=== PATIENT | male | born 1945 | race Caucasian/White ===

== ENCOUNTER 2017-08-19 13:13 | Outpatient (CLI) | payer MEDICARE, OTHER ==
[~2017-08-19] VITALS: Ht 162.6 cm; Wt 68.9 kg
[~2017-08-19 13:13] MED LIST: ALBU8.5H2 IH; AMLO10TA82 PO; ASP81TEC PO; ATR20T PO; AZIT-21 PO; CEPH500C PO; CHOL400T26 PO; CLCX200C PO; CYAN100053 IJ; CYCL10TA45 PO; DOXA4TAB2 PO; GABA-486 PO; GBPN100C PO; GLIM2TAB PO; GLIM4TAB PO; HCT25T PO; HUMALOG; HYDR-1231 PO; HYDR-3454 PO; HYDR-3583 PO; HYDR-3714 PO; HYDR-3720 PO; HYDR-757 PO; HYDR25TA4 PO; INSU100C4 SQ; INSU100I23 SQ; LEVE1U SQ; LEVO250T PO; LIRA0.6P SQ; LISI20TA PO; LISI40TA PO; MAGN400T6 PO; METF-380 PO; METO-333 PO; METO100T2 PO; METO100T5 PO; MTF500T PO; MULT-608 PO; NF-ESOM40C PO; OMEG1CAP51 PO; OMEP20TA2 PO; ONDA8TAB13 PO; ONDA8TAB9 PO; OXYC-12 PO; PNT40TEC PO; POTA99TA4 PO; SITA100T PO; TEST200V3 IM; TESTOSTERONE TOP; TRAM50TA2 PO; [UNRECOGNIZED DRUG - CODE] PO
[2017-08-19] MEDS ORDERED: TEST100V3 IM (14:06)
[2017-08-19] MEDS ORDERED: SITA100T12 PO (14:06)
[2017-08-19] MEDS ORDERED: GABA-486 PO ×2 (14:06)
[2017-08-19] MEDS ORDERED: ATOR20TA66 PO (14:06)
[2017-08-19] MEDS ORDERED: GLIM4TAB PO (14:06)
[2017-08-19] MEDS ORDERED: TRAM50TA2 PO (14:42)
[2017-08-19] MEDS ORDERED: POTA10TA10 PO (14:42)
[2017-08-20] MEDS ORDERED: CYAN100092 IM (08:44)
[2017-08-20] MEDS ORDERED: INSU100V31 SQ (08:44)
[2017-08-20] MEDS ORDERED: OMEG1CAP13 PO (08:44)
[2017-08-20] MEDS ORDERED: ASPI-999 PO (08:44)
[2017-08-20] MEDS ORDERED: HYDR25TA4 PO (08:44)
[2017-08-20] MEDS ORDERED: CNC1KV IJ (08:48)
[2017-08-20] MEDS ORDERED: LACT1CAP62 PO (08:48)
[2017-08-20] MEDS ORDERED: MAGN400T6 PO (08:48)
[2017-08-20] MEDS ORDERED: DOCU-238 PO (08:48)
[2017-08-20] MEDS ORDERED: HYDR-3816 PO (12:56)
== END 2017-08-19 14:44 ==
LOC: PREOP 13:13
PROVIDERS: ATTEND Surgery
DX: Z01.818 Encounter for other preprocedural examination (principal); C44.41 Basal cell carcinoma of skin of scalp and neck

== ENCOUNTER 2017-08-20 08:16 | Day surgery (SDC) | payer MEDICARE, OTHER ==
[~2017-08-20] VITALS: Ht 162.6 cm; Wt 68.9 kg
[~2017-08-20 08:16] MED LIST changes: +ATOR20TA66 PO; +POTA10TA10 PO; +SITA100T12 PO; +TEST100V3 IM
[2017-08-20] MEDS ORDERED: ceFAZolin 1 GM/NS 50 ML IVPB IV ONE ×2 (08:30)
[2017-08-20] MEDS ORDERED: CATHETER FLUSH 10 ML SYR IV PRN (08:30)
[2017-08-20] MEDS ORDERED: OMEG1CAP13 PO (08:44)
[2017-08-20] MEDS ORDERED: INSU100V31 SQ (08:44)
[2017-08-20] MEDS ORDERED: ASPI-999 PO (08:44)
[2017-08-20] MEDS ORDERED: CYAN100092 IM (08:44)
[2017-08-20] MEDS ORDERED: HYDR25TA4 PO (08:44)
[2017-08-20] MEDS ORDERED: LACT1CAP62 PO (08:48)
[2017-08-20] MEDS ORDERED: DOCU-238 PO (08:48)
[2017-08-20] MEDS ORDERED: CNC1KV IJ (08:48)
[2017-08-20] MEDS ORDERED: MAGN400T6 PO (08:48)
[2017-08-20] MEDS: LACTATED RINGERS 1,000 ML IV PRN ×2 (09:06→12:39)
[2017-08-20 09:10] VITALS: BP 145/74
[2017-08-20] MEDS ORDERED: MIDAZOLAM 2 MG/2 ML (VERSED) VIAL ONE (09:11)
[2017-08-20] MEDS ORDERED: proPOfol 200 MG/20 ML (DIPRIVAN) VIAL IV ONE (09:11)
[2017-08-20] MEDS ORDERED: SEVOFLURANE (ULTANE) 15 ML INHAL SOLN ONE ×6 (09:11→12:14)
[2017-08-20] MEDS ORDERED: LIDOCAINE PF 2% 5 ML (XYLOCAINE) VIAL ONE (09:11)
[2017-08-20] MEDS ORDERED: fentaNYL INJECTION 100 MCG/2 ML AMP ONE (09:11)
[2017-08-20] MEDS ORDERED: BUP/EPI 0.5% 1:200,000 (MARCAINE) 10ML VIAL IJ ONE (10:46)
--- NOTE | 2017-08-20 10:57 | Progress Note-Pre Operative ---
Pre-Operative Progress Note H&P Reviewed The H&P was reviewed, patient examined and no changes noted. Date Seen by Provider: Aug 20, 2017 Time Seen by Provider: 10:45 Date H&P Reviewed: Aug 20, 2017 Time H&P Reviewed: 10:45 Pre-Operative Diagnosis: recurrent basal cell skin cancer scalp BOOM LAKE MD Aug 20, 2017 10:57 am
[2017-08-20] MEDS ORDERED: morphine INJ 10 MG/ML 1ML (SYR OR VIAL) IVP PRN (11:00)
[2017-08-20] MEDS ORDERED: ONDANSETRON 4 MG/2 ML (SDV) Z0FRAN IVP PRN ×2 (11:00→13:00)
[2017-08-20] MEDS ORDERED: ACETAMINOPHEN 325 MG TABLET/CAPLET (TYLENOL) PO PRN (11:00)
[2017-08-20] MEDS ORDERED: HYDROcodone/APAP 5 MG/325 MG (LORTAB) TAB PO ONE (11:00)
[2017-08-20] MEDS ORDERED: ONDANSETRON 4 MG/2 ML (SDV) Z0FRAN ONE (11:51)
[2017-08-20] MEDS ORDERED: NEO/POLY/BAC (NEOSPORIN) OINT 15 GM TUBE ONE (12:42)
--- NOTE | 2017-08-20 12:54 | Progress Note-Post Operative ---
Post-Operative Progess Note Surgeon (s)/Mussel Farmer (s) Surgeon BO[place] MD Mussel Farmer: rosamaria robles [employer] Pre-Operative Diagnosis recurrent basal cell skin cancer scalp Post-Operative Diagnosis same(4x3cm) Procedure & Operative Findings Date of Procedure 08/20/17 Procedure Performed/Findings excision basal cell scalp with frozen section Anesthesia Type General LMA Estimated Blood Loss Estimated blood loss (mL): minimal Specimens/Packing Specimens Removed scalp basal cell x2 BOOM LAKE MD Aug 20, 2017 12:54 pm
[2017-08-20] MEDS ORDERED: HYDR-3816 PO (12:56)
--- NOTE | 2017-08-20 12:57 | Discharge Inst-Surgical ---
D/C Lap Instructions-ALEKSANDRA New, Converted, or Re-Newed RX: RX on Chart Follow Up Appt in 2 weeks Activity as tolerated Regular Diet Symptoms to Report: Fever over 101 degree F, Nausea/Vomiting Infection Signs and Symptoms to report: Increased redness, Foul odor of wound, Increased drainage Bathing instructions: May shower Operative Area Clean/Dry; Keep incision clean/dry If any problems/questions: Contact your physician or go to Emergency Room BOOM LAKE MD Aug 20, 2017 12:57 pm
[2017-08-20] MEDS ORDERED: morphine INJ 10 MG/ML 1ML (SYR OR VIAL) ONE (13:13)
[2017-08-20] MEDS: morphine INJ 10 MG/ML 1ML (SYR OR VIAL) IVP PRN ×2 (13:22→13:29)
[2017-08-20 14:00] VITALS: BP 165/77
[2017-08-20 14:30] VITALS: BP 165/77
[2017-08-20 14:40] VITALS: BP 165/77
--- NOTE | 2017-08-21 09:00 | OPERATIVE REPORT ---
DATE OF SERVICE: 08/20/2017 ATTENDING PHYSICIAN: Dr. Lujan. PREOPERATIVE DIAGNOSIS: Recurrent symptomatic basal cell skin cancer of the scalp. POSTOPERATIVE DIAGNOSIS: Recurrent symptomatic basal cell skin cancer of the scalp with dimensions 4 x 3 cm in size. PROCEDURE: Excision of recurrent basal cell cancer of the scalp with frozen section. SURGEON: [place] MD HACKLER DOLL WIGS: Natan Araya APRN ANESTHESIA: General laryngeal mask airway. ESTIMATED BLOOD LOSS: Minimal. FINDINGS: The initial lesion was excised, marked and sent to pathology with positive margins at approximately the 6 to 8 o'clock position as well as the 10 to 1 o'clock position. This was reexcised and the only remaining margin was a deep margin at approximately the 12 to 1 position. However, due to the large defect and inability to close, we decided to leave this in situ. He had reported that if this was not completely resectable that his next option would be Mohs micrographic surgery in [place]. DISPOSITION: The patient tolerated the procedure well. INDICATIONS: The patient is a 71-year-old male who has had a posterior and superior scalp lesion, which has been excised twice in the past in the operating room and again in the office. This could reoccur and all of the biopsies were consistent with basal cell skin cancer. He reports that the lesion with reoccur, bleed and become larger in size. The option was given to proceed with excision with frozen section; however, if the lesion was too large and we could not excise at all and close the scalp, we would leave this in situ and he was in full understanding of this and understood if this was the case that and did reoccur, then he would be transferred to [place] for a Mohs micrographic surgery. DESCRIPTION OF PROCEDURE: The patient was brought to the operating room, laid supine on the table. After adequate IV pain and sedative medications and general laryngeal mask airway intubation, the scalp was prepped and draped in standard surgical fashion. A 0.5% Marcaine with epinephrine was then used to anesthetize the overlying skin to the lesion. An elliptical-shaped skin of the scalp was then excised using a 15 blade. This was sent to pathology. Based on the markings, there was a positive margin at approximately the 6 to 8 o'clock position as well as the 10 to 1 o'clock position. We reexcised this area using a 15 blade. The defect at this point in the scalp was rather large and approximately 4 x 3 cm in size. This was again sent to pathology with all of the superficial epidermal portions of the basal cell excised and the only remaining segment being a deep margin at the 12 to 1 o'clock position. Again, due to the size of the lesion, we left this in situ and proceeded with flap closure of the defect. Lateral as well as superior and inferior flaps were created using electrocautery. The skin was then closed using a wide 2-0 Prolene interrupted sutures to approximate the skin edges. Good hemostasis was observed. The wound was then cleaned and covered with a triple antibiotic ointment. The patient tolerated the procedure well. We will have him continue to apply the ointment on a daily basis and follow up in the office in approximately 2 weeks to remove the sutures. Once the area has healed and if there is a reoccurrence, we will then proceed with a referral to a Mohs micrographic surgeon. Job ID: [id number] DocumentID: [id number] Dictated Date: 08/20/2017 13:06:56 Associate Professor Of Theatre Date: 08/21/2017 00:24:11 Dictated By: BOOM LAKE MD
== END 2017-08-20 14:40 | disposition home or self-care (01) ==
LOC: SDC 08:16
PROVIDERS: ATTEND Surgery
DX: C44.41 Basal cell carcinoma of skin of scalp and neck (principal); E11.9 Type 2 diabetes mellitus without complications; K21.9 Gastro-esophageal reflux disease without esophagitis; E78.5 Hyperlipidemia, unspecified; I10 Essential (primary) hypertension; G47.33 Obstructive sleep apnea (adult) (pediatric); Z79.82 Long term (current) use of aspirin; Z79.4 Long term (current) use of insulin; Z79.899 Other long term (current) drug therapy; Z87.891 Personal history of nicotine dependence
CPT/HCPCS: 82962; 87081

== ENCOUNTER → 2020-03-21 | Outpatient (CLI) | payer MEDICARE, OTHER ==
[~2020-03-21] VITALS: Ht 162 cm; Wt 174.0 kg
[~2020-03-21] MED LIST changes: +ASPI-999 PO; +CATHETER FLUSH 10 ML SYR IV PRN; +CNC1KV IJ; +CYAN100092 IM; +DOCU-238 PO; +GLIM4TAB5 PO; +HYDR-34 PO; +INSU100V31 SQ; +LACT1CAP62 PO; +MAGN400T8 PO; +OMEG1CAP13 PO; +REGADENOSON 0.4 MG/5 ML SYR (LEXISCAN) IV ONE; +TRM50T PO
[2020-03-21 13:10] VITALS: BP 170/80
--- NOTE | 2020-03-21 16:03 | STRESS TEST ---
DATE OF SERVICE: 03/21/2020 LEXISCAN MYOVIEW STRESS TEST REPORT REFERRING PHYSICIAN: Dr. Lujan. Baseline heart rate is 73, baseline blood pressure 189/84. Baseline EKG is sinus rhythm with no ischemic changes. In summary, the patient was injected with 10.15 mCi of technetium-99 Myoview and the resting images were obtained. Then, the patient received 0.4 mg of Lexiscan followed by 30.6 mCi of technetium-99 Myoview. Throughout the test, there were no EKG changes, the resting and stress images were reviewed and compared in the short axis, horizontal long axis, and vertical long axis views. Review of the images showed mild decreased uptake involving the mid to apical inferior wall and inferolateral wall with subtle reversibility probably due to diaphragmatic attenuation. SSS is 5, SDS 3, TID value 0.94. On the gated images, the left ventricle appeared to be normal size with normal contractility. Calculated ejection fraction 57%. CONCLUSION: 1. The patient tolerated Lexiscan well. 2. Diaphragmatic attenuation with mild decreased uptake at the mid to apical inferior wall and inferolateral wall with mild reversibility. 3. Normal left ventricular size with normal contractility. Calculated ejection fraction 57%. Job ID: [id number] DocumentID: [id number] Dictated Date: 03/21/2020 15:56:39 Financial Wellness Coach Date: 03/21/2020 16:02:39 Dictated By: LUCIA SCHNEIDER MD
== END ==
LOC: CARD 09:20
PROVIDERS: ATTEND Internal Medicine Cardiovascular Disease
DX: E78.2 Mixed hyperlipidemia (principal); I10 Essential (primary) hypertension; I73.9 Peripheral vascular disease, unspecified; E66.01 Morbid (severe) obesity due to excess calories
CPT/HCPCS: 78452; 93017; 93306

== ENCOUNTER 2020-04-18 08:52 | Day surgery (SDC) | payer OTHER ==
[~2020-04-18] VITALS: Ht 162 cm; Wt 80.0 kg
[2020-04-18] VITALS (13 sets, daily range): BP systolic 148–204; BP diastolic 57–129
[~2020-04-18 08:52] MED LIST changes: -CATHETER FLUSH 10 ML SYR IV PRN; -REGADENOSON 0.4 MG/5 ML SYR (LEXISCAN) IV ONE
[2020-04-18] MEDS: NS IV 1000 ML 1,000 ML IV SCH ×4 (09:15→21:37)
[2020-04-18] MEDS ORDERED: NS IV 1000 ML 1,000 ML ONE ×2 (09:21→11:20)
[2020-04-18] MEDS ORDERED: HEParin (CATH LAB) 2,000 ML IV ONE (09:21)
[2020-04-18] MEDS ORDERED: LIDOCAINE 1% INJ 20 ML 20 ML VIAL ONE (09:21)
--- OUTSIDE RECORDS SUMMARY | 2020-04-18 09:21 | XMS REPORT | Continuity of Care Document ---
[facility] Organization [facility] Address Unknown Phone Unavailable Care Team Providers Care It Applications Manager Name Role Phone [facility] Unavailable Unavailable Problems Combined list of all problems from all Department of Defense and [facility] facilities. It does not include entries that were removed or entered in error. Problem Status Onset Date Problem Type Date of Resolution Comments Source Basal cell carcinoma of scalp Active Condition [facility] Chronic back pain Active Condition [facility] Chronic kidney disease stage 3 Active Condition [facility] Constipation Active Condition [facility] Diabetes mellitus Active Condition [facility] Diabetic neuropathy Active Condition [facility] Essential hypertension Active Condition [facility] Hyperlipidemia Active Condition [facility] Hypogonadism Active Condition [facility] Sleep apnea Active Condition [facility] ICD-10-CM E11.9 Type 2 diabetes mellitus without complications with Provider Comments: Diabetes mellitus (SCT [id number]) active Diagnosis [facility] ICD-10-CM R86.1 Abn lev hormones in spec imens from male genital organs with Provider Comments: Hypogonadism [id number] active Diagnosis [facility] ICD-10-CM E29.1 Testicular hypofunction with Provider Comments: Testicular Hypofunction active Diagnosis [facility] ICD-10-CM 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 Essential (primary) hyper tension with Provider Comments: Essential hypertension ([facility] [id number]) active Diagnosis [facility] Medications Combined list of all outpatient medications recorded within the last 15 months b y all Department of Defense and Veterans Affairs facilities, and also all patien t-reported medications. Medication Details Route Status Patient Instructions Prescription Expires Prescript ion Number Last Dispense Date Ordering Pr ovider Order Date Source ACCU-CHEK ROSINA PLUS (GLUCOSE) TEST STRIP USE 1 STRIP FOR TESTING FOUR TIMES A DAY ACTIVE 02/2020 [id number] 02/29/2020 BALTRUSAITIS,ELEUTERIO L 09/12/2019 [facility] ACCU-CHEK ROSINA PLUS (GLUCOSE) TEST STRIP USE 1 STRIP FOR TESTING FOUR TIMES A DAY DISCONTINUE 09/15/2019 [id number] 06/13/2019 BALTRUSAITIS,ELEUTERIO L 018 [facility] ALCOHOL PREP PAD USE 1 PAD ON SKIN FOUR TIMES A DAY DISCONTINUE 04/25/2020 [id number] 11/29/2019 BALTRUSAITIS,LILIBETHNO N L 06/07/2019 [facility] ALCOHOL PREP PAD USE 1 PAD ON SKIN FOUR TIMES A DAY DISCONTINUE 09/15/2019 [id number] 04/18/2019 BALTRUSAITIS,LILIBETHNO N L 09/15/2018 [facility] ALLOPURINOL 100MG TAB TAKE ONE TABLET BY MOUTH ONCE A DAY FOR GOUT. TAKE WITH PLENTY OF WATER ACTIVE 09/09 [id number] 03/05/2020 THOM CHAMBERS 12/16/2019 [facility] ALLOPURINOL 100MG TAB TAKE ONE TABLET BY MOUTH ONCE A DAY FOR GOUT. TAKE WITH PLENTY OF WATER DISCONTINUE 12/30/2019 [id number] 09/17/2019 THOM CHAMBERS 12/31/2018 [facility] ALOGLIPTIN 12.5MG TAB TAKE ONE TABLET BY MOUTH ONCE A DAY FOR DIABETES ACTIVE 09/12/2020 [id number] 03/04/2020 BALTRUSAITIS,ELEUTERIO Larry 09/16/2019 [facility] ALOGLIPTIN 12.5MG TAB TAKE ONE TABLET BY MOUTH ONCE A DAY FOR DIABETES DISCONTINUE 12/22/2019 [id number] 06/18/2019 BALTRUSAITIS,ELEUTERIO L 12/30/2018 [facility] AMLODIPINE BESYLATE 10MG TAB T BERTO ONE TABLET BY MOUTH EVERY MORNING FOR HEART/BLOOD PRESSURE DISCONTINUE 06/10/2019 [id number] 02/25/2019 MONIKA HAMMER 06/10/2018 [facility] AMLODIPINE BESYLATE 10MG TAB T BERTO ONE TABLET BY MOUTH EVERY MORNING FOR HEART/BLOOD PRESSURE 02/2020 [id number] 02/10/2020 THOM CHAMBERS 05/26/2019 [facility] ASPIRIN 81MG TAB,CHEWABLE CHEW ONE TABLET BY MOUTH ONCE A DAY ACTIVE MEGAN HAWK 02/27/2017 [facility] ATORVASTATIN CA 20MG TAB TAKE ONE TABLET BY MOUTH ONCE A DAY FOR CHOLESTEROL. REPORT ANY UNEXPLAINED MUSCLE PAIN OR WEAKNESS TO YOUR DOCTOR. ACTIVE 01/02/2021 [id number] 03/24/2020 NELLA GROVE 01/04/2020 [facility] 15 ATORVASTATIN CA 40MG TAB TAKE ONE-HALF TABLET BY MOUTH AT BEDTIME FOR CHOLESTEROL. REPORT ANY UNEXPLAINED MUSCLE PAIN OR WEAKNESS TO YOUR DOCTOR. DISCONTINUED 07/15/2020 [id number] 10/14/2019 THOM CHAMBERS 10/14/2019 [facility] ATORVASTATIN CA 40MG TAB TAKE ONE-HALF TABLET BY MOUTH AT BEDTIME FOR CHOLESTEROL. REPORT ANY UNEXPLAINED MUSCLE PAIN OR WEAKNESS TO YOUR DOCTOR. DISCONTINUE 10/12/2019 [id number] 07/16/2019 THOM CHAMBERS 10/29/2018 [facility] CALCIUM CARBONATE 500MG TAB,CHEWABLE CHEW ONE TABLET BY MOUTH PRN ACTIVE THOM CHAMBERS 03/20/2020 [facility] CHLORTHALIDONE 25MG TAB TAKE O NE TABLET BY MOUTH ONCE A DAY ACTIVE 07/01/2020 [id number] 03/19/2020 MONIKA HAMMER 07/02/2019 [facility] CHLORTHALIDONE 25MG TAB TAKE O NE TABLET BY MOUTH ONCE A DAY DISCONTINUE 06/16/2019 [id number] 04/12/2019 MONIKA HAMMER 06/17/2018 [facility] CHOLECALCIFEROL 1000UNT TAB TA KE ONE TABLET BY MOUTH EVERY OTHER DAY ACTIVE MEGAN HAWK 02/27/2017 [facility] CYANOCOBALAMIN 1000MCG/ML INJ INJECT 1000 MCG (1 ML) INTRAMUSCULARLY EVERY MONTH FOR B12 SUPPLEMENTATION. ACTIVE 11/03/2020 [id number] 04/23/2020 THOM CHAMBERS 11/05/2019 [facility] CYANOCOBALAMIN 1000MCG/ML INJ INJECT 1000 MCG (1 ML) INTRAMUSCULARLY EVERY MONTH FOR B12 SUPPLEMENTATION. DISCONTINUE 11/17/2019 [id number] 08/07/2019 THOM CHAMBERS 11/20/2018 [facility] DIPHENHYDRAMINE HCL 25MG CAP T BERTO 1 CAPSULE BY MOUTH PRN ACTIVE THOM CHAMBERS 03/20/2020 [facility] DOCUSATE NA 100MG CAP TAKE 2 C APSULES BY MOUTH ONCE A DAY ACTIVE THOM CHAMBERS 10/25/2017 [facility] FISH OIL 1000MG (500MG DHA/EPA) CAP,ORAL TAKE 1 CAPSULE BY MOUTH ONCE A DAY ACTIVE MEGAN HAWK 02/27/2017 [facility] GABAPENTIN 100MG CAP TAKE 1 CA PSULE BY MOUTH EVERY MORNING AND TAKE 1 CAPSULE BY MOUTH AT NOON AND TAKE 2 CAPSULES BY MOUTH AT BEDTIME ACTIVE 07/06/2020 [id number] 03/31/2020 REGGIE LIVINGSTON 07/09/2019 [facility] GLUCAGON 1MG/GABRIELLA INJ,EMERGENCY KIT INJECT 1MG SUBCUTANEOUSLY NEEDED FOR SEVERE HYPOGLYCEMIA 11/30/2019 [id number] 11/03/2019 THOM CHAMBERS 11/03/2019 [facility] INSULIN,ASPART,HUMAN 100U/ML,NOVOLOG,FLEXPEN,3ML INJECT 20 UNITS SUBCUTANEOUSLY BEFORE BREAKFAST AND INJECT 20 UNITS BEFORE LUNCH AND INJECT 26 UNITS BEFORE SUPPER AND INJECT 24 UNITS SNACK FOR BLOOD SUGAR CONTROL. ADMINISTER 10 MINUTES BEFORE FOOD DIRECTED. REFRIGERATE UN-OPENED PENS. DISCARD CARTRIDGE 28 DAYS AFTER OPENING. PLUS CORRECTION HOLD 03/01/2021 [id number] ELEUTERIO LIVINGSTON 020 [facility] INSULIN,ASPART,HUMAN 100U/ML,NOVOLOG,FLEXPEN,3ML INJECT 20 UNITS SUBCUTANEOUSLY BEFORE BREAKFAST AND INJECT 20 UNITS BEFORE LUNCH AND INJECT 24 UNITS BEFORE SUPPER AND INJECT 24 UNITS SNACK FOR BLOOD SUGAR CONTROL. ADMINISTER 10 MINUTES BEFORE FOOD DIRECTED. REFRIGERATE UN-OPENED PENS. DISCARD CARTRIDGE 28 DAYS AFTER OPENING. PLUS CORRECTION DISCONTINUED (EDIT) 01/26/2021 [id number] 01/28/2020 REGGIE LIVINGSTON 01/28/2020 [facility] INSULIN,ASPART,HUMAN 100U/ML,NOVOLOG,FLEXPEN,3ML INJECT 20 UNITS SUBCUTANEOUSLY BEFORE MEALS FOR BLOOD SUGAR CONTROL. ADMINISTER 10 MINUTES BEFORE FOOD DIRECTED. REFRIGERATE UN-OPENED PENS. DISCARD CARTRIDGE 28 DAYS AFTER OPENING. PLUS CORRECTION FOR BLOOD SUGAR CONTROL. ADMINISTER 10 MINUTES BEFORE FOOD DIRECTED. REFRIGERATE UN-OPENED PENS. DISCARD CARTRIDGE 28 DAYS AFTER OPENING. PLUS CORRECTION DISCONTINUED (EDIT) 11/16/2020 [id number] 11/16/2019 BALTRUSAITISELEUTERIO Laron 020 [facility] INSULIN,ASPART,HUMAN 100U/ML,NOVOLOG,FLEXPEN,3ML INJECT 15 UNITS SUBCUTANEOUSLY EVERY MORNING BEFORE MEAL AND INJECT 15 UNITS WITH LUNCH AND INJECT 15 UNITS WITH SUPPER AND INJECT 20 UNITS WITH SNACK FOR BLOOD SUGAR CONTROL. ADMINISTER 10 MINUTES BEFORE FOOD DIRECTED. REFRIGERATE UN-OPENED PENS. DISCARD CARTRIDGE 28 DAYS AFTER OPENING. DISCONTINUED (EDIT) 12/22/2019 [id number] 10/12/2019 BALTRELEUTERIO ROJAS 01/24/2019 [facility] INSULIN,GLARGINE,HUMAN 100 UNIT/ML INJ,SOLOSTAR,3ML INJECT 50 UNITS SUBCUTANEOUSLY EVERY MORNING FOR BLOOD SUGAR CONTROL. ADMINISTER AT SAME TIME EACH DAY DIRECTED. DISCARD ANY OPEN CARTRIDGE AFTER 28 DAYS. ACTIVE 09/23/2020 [id number] 01/28/2020 BALTRUSAITISLILIBETHNO N L 11/09/2019 [facility] INSULIN,GLARGINE,HUMAN 100 UNIT/ML INJ,SOLOSTAR,3ML INJECT 45 UNITS SUBCUTANEOUSLY EVERY MORNING FOR BLOOD SUGAR CONTROL. ADMINISTER AT SAME TIME EACH DAY DIRECTED. DISCARD ANY OPEN CARTRIDGE AFTER 28 DAYS. DISCONTINUED (EDIT) 10/23/2019 [id number] 08/30/2019 BALTRUSAITISLILIBETHNO N L 12/13/2018 [facility] LACTOBACILLUS ACIDOPHILUS TAB,CHEWABLE CHEW ONE TABLET BY MOUTH ONCE A DAY ACTIVE MEGAN HAWK 02/27/2017 [facility] LANCET,SOFTCLIX USE LANCET 5 TIMES A DAY FOR TESTING BLOOD GLUCOSE DIRECTED ACTIVE 12/28/2020 [id number] 03/19/2020 BALTRUSAELEUTERIO QUIGLEY 12/29/2019 [facility] LANCET,SOFTCLIX USE LANCET 5 TIMES A DAY FOR TESTING BLOOD GLUCOSE DIRECTED DISCONTINUE 01/11/2020 [id number] 09/29/2019 BALANGELIKAUSAELEUTERIO QUIGLEY L 019 [facility] MAGNESIUM OXIDE 400MG TAB TAKE ONE TABLET BY MOUTH ONCE A DAY ACTIVE MEGAN HAWK 02/27/2017 [facility] METOPROLOL SUCCINATE 200MG TAB,SA TAKE ONE-HALF TABLET BY MOUTH EVERY EVENING FOR HEART/BLOOD PRESSURE. SWALLOW WHOLE, DO NOT CRUSH OR CHEW (TABLETS MAY BE CUT IN HALF). 08/2020 [id number] 12/28/2019 MONIKA HAMMER 04/05/2019 [facility] NEEDLE 22G 1.5IN USE NEEDLE FO R EVERY MONTH 11/12/2019 [id number] 02/07/2019 ADELAIDA CLIFFORD 11/19/2018 [facility] NEEDLE,PEN 31G,5MM USE NEEDLE SUBCUTANEOUSLY 5 TIMES A DAY - THIS IS A SINGLE USE NEEDLE AND SHOULD BE DISCARDED AFTER USE DISCONTINUE 12/21/2019 [id number] 09/28/2019 BALTRUSALILIBETH QUIGLEYSHAINA N L 01/10/2019 [facility] POTASSIUM CHLORIDE 10MEQ TAB,SA TAKE TWO TABLETS BY MOUTH TWO TIMES A DAY FOR POTASSIUM SUPPLEMENTATIONTAKE WITH FOOD ACTIVE 12/12/2020 [id number] 03/02/2020 YANELY QUINTERO 12/13/2019 [facility] POTASSIUM CHLORIDE 10MEQ TAB,SA TAKE ONE TABLET BY MOUTH THREE TIMES A DAY WITH MEALS FOR POTASSIUM SUPPLEMENTATIONTAKE WITH FOOD DISCONTINUE 03/16/2020 [id number] 11/29/2019 BALTRUSAREGGIE QUIGLEY N L 03/18/2019 [facility] POTASSIUM CHLORIDE 10MEQ TAB,SA TAKE ONE TABLET BY MOUTH THREE TIMES A DAY WITH MEALS FOR POTASSIUM SUPPLEMENTATIONTAKE WITH FOOD DISCONTINUE 05/26/2019 [id number] 01/24/2019 YANELY QUINTERO 05/25/2018 [facility] SYRINGE 2.5-3ML/NDL 25G 1IN US E 1 SYRINGE EVERY MONTH ACTIVE 02/21/2021 [id number] 03/20/2020 THOM CHAMBERS 03/20/2020 [facility] SYRINGE 2.5-3ML/NDL 25G 1IN US E 1 SYRINGE EVERY MONTH DISCONTINUE 03/18/2020 [id number] 12/21/2019 TERRIE CHAMBERSA 04/05/2019 [facility] TESTOSTERONE CYPIONATE 200MG/ML INJ,1ML (IN OIL) INJECT 200 MG (1 ML) INTRAMUSCULARLY EVERY MONTH FOR HORMONE REPLACEMENT ACTIVE 05/18/2020 [id number] 04/06/2020 ADELAIDA CLIFFORD 11/18/2019 [facility] TESTOSTERONE CYPIONATE 200MG/ML INJ,1ML (IN OIL) INJECT 200 MG (1 ML) INTRAMUSCULARLY EVERY MONTH FOR HORMONE REPLACEMENT DISCONTINUE 03/25/2020 [id number] 10/25/2019 ADELAIDA CLIFFORD 10/25/2019 [facility] TESTOSTERONE CYPIONATE 200MG/ML INJ,1ML (IN OIL) INJECT 200 MG (1 ML) INTRAMUSCULARLY EVERY MONTH FOR HORMONE REPLACEMENT DISCONTINUE 11/06/2019 [id number] 09/25/2019 ADELAIDA CLIFFORD 05/08/2019 [facility] TESTOSTERONE CYPIONATE 200MG/ML INJ,1ML (IN OIL) INJECT 200 MG (1 ML) INTRAMUSCULARLY EVERY MONTH FOR HORMONE REPLACEMENT DISCONTINUE 05/14/2019 [id number] 04/10/2019 ADELAIDA CLIFFORD 11/21/2018 [facility] TRAMADOL HCL 50MG TAB TAKE 1 T O 2 TABLETS BY MOUTH EVERY 6 HOURS NEEDED FOR PAIN ACTIVE 07/21/2020 [id number] 03/30/2020 NELLA GROVE 02/09/2020 [facility] TRAMADOL HCL 50MG TAB TAKE 1 T O 2 TABLETS BY MOUTH EVERY 6 HOURS NEEDED FOR PAIN DISCONTINUE 06/06/2020 [id number] 01/11/2020 NELLA GROVE 12/06/2019 [facility] TRAMADOL HCL 50MG TAB TAKE 1 T O 2 TABLETS BY MOUTH EVERY 6 HOURS NEEDED FOR PAIN DISCONTINUED 06/06/2020 [id number] 12/06/2019 NELLA GROVE 12/06/2019 [facility] TRAMADOL HCL 50MG TAB TAKE 1 T O 2 TABLETS BY MOUTH EVERY 6 HOURS NEEDED FOR PAIN DISCONTINUE 12/14/2019 [id number] 11/15/2019 DANTE VALVERDE 06/25/2019 [facility] TRAMADOL HCL 50MG TAB TAKE 1 T O 2 TABLETS BY MOUTH EVERY 6 HOURS NEEDED FOR PAIN DISCONTINUE 07/06/2019 [id number] 05/26/2019 NELLA GROVE 01/06/2019 [facility] TRIAMCINOLONE ACETONIDE 0.5% CREAM,TOP APPLY SPARINGLY TO AFFECTED AREA ONCE A DAY NEEDED FOR RASH ACTIVE 07/15/2020 [id number] 04/01/2020 THOM CHAMBERS 10/14/2019 [facility] TRIAMCINOLONE ACETONIDE 0.5% CREAM,TOP APPLY SPARINGLY TO AFFECTED AREA ONCE A DAY NEEDED FOR RASH DISCONTINUE 10/12/2019 [id number] 07/16/2019 THOM CHAMBERS 10/29/2018 [facility] Allergies, Adverse Reactions, Alerts Combined list of all allergies from all Department of Defense and [facility] Affairs facilities. It does not include entries that were removed or entered in error. Substance Category R eaction Severity Reaction type Status Date Reported Comments Source LISINOPRIL Propensity to adverse r eactions to drug (disorder) Renal impairment Propensity to adverse reactions to drug (disorder) active 12/01/2017 [facility] 15 METFORMIN Propensity to adverse re actions to drug (disorder) Renal impairment Propensity to adverse reactions to drug (disorder) active 12/01/2017 [facility] 15 Immunizations Combined list of: 1) all immunizations on record at all [facility] ies, and 2) all available immunizations on record at Department of Defense (Do D) facilities. Some immunizations on record at [facility] may not be included. Immunization Series Date Given Administered By Site Reaction Lot Number CVX Code Drug Belt Tender Status Comments Source ZOSTER RECOMBINANT 2 01/12/2020 187 completed [facility] PNEUMOCOCCAL POLYSACCHARIDE PPV23 11/17/2019 33 completed [facility] ZOSTER RECOMBINANT 1 10/20/2019 187 completed [facility] INFLUENZA, TRIVALENT, ADJUVANTED 08/25/2019 168 completed [facility] PNEUMOCOCCAL CONJUGATE PCV 13 08/25/2019 133 completed [facility] TDAP 2016 115 completed [facility] Results Combined list of recent chemistry, hematology and other laboratory results going back no more than 15 months from the Department of Defense and 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 Order Name Results Value Reference Range Date Interpretation Specimen Comments Source CBC & DIFF LEUKOCYTES [#/VOLUM E] IN BLOOD BY AUTOMATED COUNT 10.73 K/cmm 3.60 - 11.20 12/01/2019 Specimen Type: BLOOD No comment entered. [facility] CBC & DIFF ERYTHROCYTES [#/VOL UME] IN BLOOD BY AUTOMATED COUNT 6.96 M/ul 4.1 - 5.7 12/01/2019 H Specimen Type: BLOOD No comment entered. [facility] CBC & DIFF HEMOGLOBIN [MASS/VOLUME] IN BLOOD 18.6 g/dl 13.1 - 16.8 12/01/2019 H Specimen Type: BLOOD No comment entered. [facility] CBC & DIFF HEMATOCRIT [VOLUME FRACTION] OF BLOOD BY AUTOMATED COUNT 57.7 % 38.2 - 48.4 12/01/2019 H Specimen Type: BLOOD No comment entered. [facility] CBC & DIFF MCV [ENTITIC VOLUME] BY A UTOMATED COUNT 82.9 fl 80.1 - 98.5 12/01/2019 Specimen Type: BLOOD No comment entered. [facility] CBC & DIFF MCH [ENTITIC MASS] BY AUT OMATED COUNT 26.7 pg 27.0 - 34.0 12/01/2019 L Specimen Type: BLOOD No comment entered. [facility] CBC & DIFF MCHC [MASS/VOLUME] BY AUT OMATED COUNT 32.2 g/dl 33.0 - 36.0 12/01/2019 L Specimen Type: BLOOD No comment entered. [facility] CBC & DIFF PLATELETS [#/VOLUME ] IN BLOOD BY AUTOMATED COUNT 244 K/cmm 150 - 400 12/01/2019 Specimen Type: BLOOD No comment entered. [facility] CBC & DIFF PLATELET MEAN VOLUM E [ENTITIC VOLUME] IN BLOOD BY AUTOMATED COUNT 10.9 fl 7.5 - 11.2 12/01/2019 Specimen Type: BLOOD No comment entered. [facility] CBC & DIFF ERYTHROCYTE DISTRIB UTION WIDTH [RATIO] BY AUTOMATED COUNT 17.2 % 11.8 - 15.1 12/01/2019 H Specimen Type: BLOOD No comment entered. [facility] CBC & DIFF LYMPHOCYTES/100 ANTONIO KOCYTES IN BLOOD BY AUTOMATED COUNT 11.3 % 12/01/2019 Specimen Type: BLOOD No comment entered. [facility] CBC & DIFF NEUTROPHILS/100 ANTONIO KOCYTES IN BLOOD BY AUTOMATED COUNT 76.8 % 12/01/2019 Specimen Type: BLOOD No comment entered. [facility] CBC & DIFF MONOCYTES/100 LEUKO CYTES IN BLOOD BY AUTOMATED COUNT 7.7 % 12/01/2019 Specimen Type: BLOOD No comment entered. [facility] CBC & DIFF MONOCYTES [#/VOLUME ] IN BLOOD BY AUTOMATED COUNT 0.83 K/cmm 0.19 - 0.80 12/01/2019 H Specimen Type: BLOOD No comment entered. [facility] CBC & DIFF NEUTROPHILS [#/VOLU ME] IN BLOOD BY AUTOMATED COUNT 8.25 K/cmm 2.10 - 8.00 12/01/2019 H Specimen Type: BLOOD No comment entered. [facility] CBC & DIFF EOSINOPHILS [#/VOLU ME] IN BLOOD BY AUTOMATED COUNT 0.22 K/cmm 0.00 - 0.60 12/01/2019 Specimen Type: BLOOD No comment entered. [facility] CBC & DIFF BASOPHILS [#/VOLUME ] IN BLOOD BY AUTOMATED COUNT 0.17 K/cmm 0.00 - 0.20 12/01/2019 Specimen Type: BLOOD No comment entered. [facility] CBC & DIFF EOSINOPHILS/100 ANTONIO KOCYTES IN BLOOD BY AUTOMATED COUNT 2.1 % 12/01/2019 Specimen Type: BLOOD No comment entered. [facility] CBC & DIFF BASOPHILS/100 LEUKO CYTES IN BLOOD BY AUTOMATED COUNT 1.6 % 12/01/2019 Specimen Type: BLOOD No comment entered. [facility] CBC & DIFF LYMPHOCYTES [#/VOLU ME] IN BLOOD BY AUTOMATED COUNT 1.21 K/cmm 0.77 - 4.50 12/01/2019 Specimen Type: BLOOD No comment entered. [facility] CBC & DIFF IMMATURE GRANULOCYT ES [#/VOLUME] IN BLOOD BY AUTOMATED COUNT 0.05 K/cmm 0.00 - 0.05 12/01/2019 Specimen Type: BLOOD No comment entered. [facility] CBC & DIFF IMMATURE GRANULOCYT ES/100 LEUKOCYTES IN BLOOD BY AUTOMATED COUNT 0.5 % 12/01/2019 Specimen Type: BLOOD No comment entered. [facility] RENAL FUNCTION PANEL CREATININ E [MASS/VOLUME] IN SERUM OR PLASMA 1.48 mg/dL 0.7 - 1.3 12/01/2019 H Specimen Type: PLASMA No comment entered. [facility] RENAL FUNCTION PANEL UREA NITR OGEN [MASS/VOLUME] IN SERUM OR PLASMA 19 mg/dL 9 - 25 12/01/2019 Specimen Type: PLASMA No comment entered. [facility] RENAL FUNCTION PANEL GLUCOSE [ MASS/VOLUME] IN SERUM OR PLASMA 99 mg/dL 72 - 99 12/01/2019 Specimen Type: PLASMA No comment entered. [facility] RENAL FUNCTION PANEL SODIUM [M OLES/VOLUME] IN SERUM OR PLASMA 143 mEq/L 136 - 145 12/01/2019 Specimen Type: PLASMA No comment entered. [facility] RENAL FUNCTION PANEL POTASSIUM [MOLES/VOLUME] IN SERUM OR PLASMA 3.4 mEq/L 3.5 - 5.0 12/01/2019 L Specimen Type: PLASMA No comment entered. [facility] RENAL FUNCTION PANEL CALCIUM [ MASS/VOLUME] IN SERUM OR PLASMA 10.0 mg/dL 8.4 - 10.4 12/01/2019 Specimen Type: PLASMA No comment entered. [facility] RENAL FUNCTION PANEL PHOSPHATE [MASS/VOLUME] IN SERUM OR PLASMA 2.6 mg/dL 2.3 - 4.7 12/01/2019 Specimen Type: PLASMA No comment entered. [facility] RENAL FUNCTION PANEL ALBUMIN [ MASS/VOLUME] IN SERUM OR PLASMA 4.5 g/dl 3.4 - 5.0 12/01/2019 Specimen Type: PLASMA No comment entered. [facility] RENAL FUNCTION PANEL CHLORIDE [MOLES/VOLUME] IN SERUM OR PLASMA 101 mEq/L 98 - 107 12/01/2019 Specimen Type: PLASMA No comment entered. [facility] RENAL FUNCTION PANEL "CARBON D IOXIDE, TOTAL [MOLES/VOLUME] IN SERUM OR PLASMA" 34 mEq/L 22 - 31 12/01/2019 H Specimen Type: PLASMA No comment entered. [facility] RENAL FUNCTION PANEL GLOMERULA R FILTRATION RATE/1.73 SQ M.PREDICTED [VOLUME RATE/AREA] IN SERUM OR PLASMA BY CREATININE-BASED FORMULA (MDRD) 46.5 12/01 Specimen T ype: PLASMA No comment entered. [facility] URINALYSIS COLOR OF URINE Yello w 12/01/2019 Specimen Type: URINE No comment entered. [facility] URINALYSIS SPECIFIC GRAVITY OF URINE 1.021 12/01/2019 Specimen Type: URINE No comment entered. [facility] URINALYSIS UROBILINOGEN [MASS/VOLUME ] IN URINE 2.0 mg/dL 0.1 - 1.0 12/01/2019 H Specimen Type: URINE No comment entered. [facility] URINALYSIS BILIRUBIN.TOTAL [NJ ESENCE] IN URINE BY TEST STRIP Negative 0 12/01/2019 Specimen Type: URINE No comment entered. [facility] URINALYSIS KETONES [MASS/VOLUME] IN URINE BY TEST STRIP Negativemg/dl 12/01/2019 Specimen Type: URINE No comment entered. [facility] URINALYSIS GLUCOSE [MASS/VOLUME] IN URINE BY TEST STRIP Negativemg/dL 12/01/2019 Specimen Type: URINE No comment entered. [facility] URINALYSIS PROTEIN [MASS/VOLUME] IN URINE BY TEST STRIP 100 mg/dl - Trace" 12/01/2019 Specimen Type: URINE No comment entered. [facility] URINALYSIS PH OF URINE BY TEST STRIP 5.0 12/01/2019 Specimen Type: URINE No comment entered. [facility] URINALYSIS MUCUS [#/AREA] IN U RINE SEDIMENT BY MICROSCOPY LOW POWER FIELD Trace/LPF 12/01/2019 Specimen Type: URINE No comment entered. [facility] URINALYSIS APPEARANCE OF URINE Clear 12/01/2019 Specimen Type: URINE No comment entered. [facility] URINALYSIS HEMOGLOBIN [PRESENCE] IN URINE Negative 12/01/2019 Specimen Type: URINE No comment entered. [facility] URINALYSIS NITRITE [PRESENCE] IN URI NE BY TEST STRIP Negative 12/01/2019 Specimen T ype: URINE No comment entered. [facility] URINALYSIS LEUKOCYTE ESTERASE [PRESENCE] IN URINE BY TEST STRIP Negative 0 12/01/2019 Specimen Type: URINE No comment entered. [facility] URINALYSIS HYALINE CASTS [#/AR EA] IN URINE SEDIMENT BY MICROSCOPY LOW POWER FIELD 1-2/LPF 12/01/2019 Specimen Type: URINE No comment entered. [facility] URINALYSIS LEUKOCYTES [#/AREA] IN URINE SEDIMENT BY MICROSCOPY HIGH POWER FIELD 0-2WBC/HPF 0 - 5 12/01/2019 Specimen Type: URINE No comment entered. [facility] URINALYSIS ERYTHROCYTES [#/VOL UME] IN URINE SEDIMENT BY MICROSCOPY HIGH POWER FIELD 0-2RBC/HPF 0 - 2 12/01/2019 Specimen Type: URINE No comment entered. [facility] MAGNESIUM (mg/dL) MAGNESIUM [M ASS/VOLUME] IN SERUM OR PLASMA 2.4 mg/dl 1.6 - 2.6 12/01/2019 Specimen Type: PLASMA No comment entered. [facility] HEPATIC FUNCTION PANEL PROTEIN [MASS/VOLUME] IN SERUM OR PLASMA 7.2 g/dL 6.0 - 8.6 12/01/2019 Specimen Type: PLASMA No comment entered. [facility] HEPATIC FUNCTION PANEL ALBUMIN [MASS/VOLUME] IN SERUM OR PLASMA 4.5 g/dl 3.4 - 5.0 12/01/2019 Specimen Type: PLASMA No comment entered. [facility] HEPATIC FUNCTION PANEL BILIRUB IN.TOTAL [MASS/VOLUME] IN SERUM OR PLASMA 0.7 mg/dL 0.2 - 1.2 12/01/2019 Specimen Type: PLASMA No comment entered. [facility] HEPATIC FUNCTION PANEL BILIRUB IN.DIRECT [MASS/VOLUME] IN SERUM OR PLASMA 0.30 mg/dL 0 - 0.5 12/01/2019 Specimen Type: PLASMA No comment entered. [facility] HEPATIC FUNCTION PANEL ASPARTA TE AMINOTRANSFERASE [ENZYMATIC ACTIVITY/VOLUME] IN SERUM OR PLASMA 29 U/L 5 - 34 12/01/2019 Specimen Type: PLASMA No comment entered. [facility] HEPATIC FUNCTION PANEL ALANINE AMINOTRANSFERASE [ENZYMATIC ACTIVITY/VOLUME] IN SERUM OR PLASMA 20 U/L 8 - 40 12/01/2019 Specimen Type: PLASMA No comment entered. [facility] HEPATIC FUNCTION PANEL ALKALIN E PHOSPHATASE [ENZYMATIC ACTIVITY/VOLUME] IN SERUM OR PLASMA 98 U/L 40 - 150 12/01/2019 Specimen Type: PLASMA No comment entered. [facility] MICROALBUMIN (CO,EK) MICROALBU MIN [MASS/VOLUME] IN URINE 116.8 mg/dL " " - " " 12/01/2019 Specimen Type: URINE No comment entered. [facility] MICROALBUMIN (CO,EK) MICROALBU MIN/CREATININE [MASS RATIO] IN URINE 651.8 mcg/mgcr 0 - 29 12/01/2019 Specimen Type: URINE No comment entered. [facility] MICROALBUMIN (CO,EK) CREATININE [MAS S/VOLUME] IN URINE 179.2 mg/dl 12/01/2019 Specimen T ype: URINE No comment entered. [facility] COMPREHENSIVE METABOLIC PANEL CREATININE [MASS/VOLUME] IN SERUM OR PLASMA 1.48 mg/dL 0.7 - 1.3 12/01/2019 H Specimen Type: PLASMA No comment entered. [facility] COMPREHENSIVE METABOLIC PANEL UREA NITROGEN [MASS/VOLUME] IN SERUM OR PLASMA 19 mg/dL 9 - 25 12/01/2019 Specimen Type: PLASMA No comment entered. [facility] COMPREHENSIVE METABOLIC PANEL GLUCOSE [MASS/VOLUME] IN SERUM OR PLASMA 99 mg/dL 72 - 99 12/01/2019 Specimen Type: PLASMA No comment entered. [facility] COMPREHENSIVE METABOLIC PANEL SODIUM [MOLES/VOLUME] IN SERUM OR PLASMA 143 mEq/L 136 - 145 12/01/2019 Specimen Type: PLASMA No comment entered. [facility] COMPREHENSIVE METABOLIC PANEL POTASSIUM [MOLES/VOLUME] IN SERUM OR PLASMA 3.4 mEq/L 3.5 - 5.0 12/01/2019 L Specimen Type: PLASMA No comment entered. [facility] COMPREHENSIVE METABOLIC PANEL CALCIUM [MASS/VOLUME] IN SERUM OR PLASMA 10.0 mg/dL 8.4 - 10.4 12/01/2019 Specimen Type: PLASMA No comment entered. [facility] COMPREHENSIVE METABOLIC PANEL PROTEIN [MASS/VOLUME] IN SERUM OR PLASMA 7.2 g/dL 6.0 - 8.6 12/01/2019 Specimen Type: PLASMA No comment entered. [facility] COMPREHENSIVE METABOLIC PANEL ALBUMIN [MASS/VOLUME] IN SERUM OR PLASMA 4.5 g/dl 3.4 - 5.0 12/01/2019 Specimen Type: PLASMA No comment entered. [facility] COMPREHENSIVE METABOLIC PANEL BILIRUBIN.TOTAL [MASS/VOLUME] IN SERUM OR PLASMA 0.7 mg/dL 0.2 - 1.2 12/01/2019 Specimen Type: PLASMA No comment entered. [facility] COMPREHENSIVE METABOLIC PANEL ASPARTATE AMINOTRANSFERASE [ENZYMATIC ACTIVITY/VOLUME] IN SERUM OR PLASMA 29 U/L 5 - 34 12/01/2019 Specimen Type: PLASMA No comment entered. [facility] METABOLIC PANEL ALANINE AMINOTRANSFERASE [ENZYMATIC ACTIVITY/VOLUME] IN SERUM OR PLASMA 20 U/L 8 - 40 12/01/2019 Specimen Type: PLASMA No comment entered. [facility] COMPREHENSIVE METABOLIC PANEL CHLORIDE [MOLES/VOLUME] IN SERUM OR PLASMA 101 mEq/L 98 - 107 12/01/2019 Specimen Type: PLASMA No comment entered. [facility] COMPREHENSIVE METABOLIC PANEL "CARBON DIOXIDE, TOTAL [MOLES/VOLUME] IN SERUM OR PLASMA" 34 mEq/L 22 - 31 12/01/2019 H Specimen Type: PLASMA No comment entered. [facility] COMPREHENSIVE METABOLIC PANEL ALKALINE PHOSPHATASE [ENZYMATIC ACTIVITY/VOLUME] IN SERUM OR PLASMA 98 U/L 40 - 150 12/01/2019 Specimen Type: PLASMA No comment entered. [facility] GLOMERULAR FILTRATION RATE/1.73 SQ M.PREDICTED [VOLUME RATE/AREA] IN SERUM OR PLASMA BY CREATININE- BASED FORMULA (MDRD) 46.5 12/01/2019 Specimen Type: PLASMA No comment entered. [facility] TRAMADOL SCRN W/REFLEX,URINE T RAMADOL [MASS/VOLUME] IN SERUM OR PLASMA Positive 12/01/2019 Specimen Type: URINE Comment: normalcy status - Abnormal Tramadol Screen This test was performed using a forensic kit that is intended for the qualitative and semi-quantitative determination of Tramadol in human urine and has not been cleared or approved by the FDA for diagnostic purposes. The analytical performance characteristics of this test have been determined by [facility]. This test should not be used for diagnosis without confirmation by other, more specific, confirmatory analytical methodologies. Test performed by [facility] [address] [address] Stockroom Keeper: Baron Domingo M.D.,Ph.D. Test Reported by [facility], [facility], [address] [place] [address] Lawrence Mckeon M.D., Ph.D., Director of Laboratories , CLIA 49D [id number] O-Desmethyltramadol This test was developed and its analytical performance characteristics have been determined by [facility]. It has not been cleared or approved by the [place] Food and Drug Administration. This assay has been validated pursuant to the CLIA regulations and is used for clinical purposes. [facility] TRAMADOL SCRN W/REFLEX,URINE T RAMADOL [MASS/VOLUME] IN SERUM OR PLASMA > 5000ng/mL 12/01/2019 H Specimen Type: URINE Comment: normalcy status - Abnormal Tramadol Screen This test was performed using a forensic kit that is intended for the qualitative and semi-quantitative determination of Tramadol in human urine and has not been cleared or approved by the FDA for diagnostic purposes. The analytical performance characteristics of this test have been determined by [facility]. This test should not be used for diagnosis without confirmation by other, more specific, confirmatory analytical methodologies. Test performed by [facility] [place] [address] [address] Stockroom Keeper: Baron Domingo M.D.,Ph.D. Test Reported by [facility] [place], [facility], [address] [place] [address] Lawrence Mckeon M.D., Ph.D., Director of Laboratories , CLIA [id number] [id number] O-Desmethyltramadol This test was developed and its analytical performance characteristics have been determined by [facility]. It has not been cleared or approved by the [place] Food and Drug Administration. This assay has been validated pursuant to the CLIA regulations and is used for clinical purposes. [facility] TRAMADOL SCRN W/REFLEX,URINE T RAMADOL [MASS/VOLUME] IN SERUM OR PLASMA >5000ng/mL 12/01/2019 H Specimen Type: URINE Comment: normalcy status - Abnormal Tramadol Screen This test was performed using a forensic kit that is intended for the qualitative and semi-quantitative determination of Tramadol in human urine and has not been cleared or approved by the FDA for diagnostic purposes. The analytical performance characteristics of this test have been determined by [facility]. This test should not be used for diagnosis without confirmation by other, more specific, confirmatory analytical methodologies. Test performed by [facility] [address] [place] [address] Stockroom Keeper: Baron Domingo M.D.,Ph.D. Test Reported by [facility] [employer] [place], [facility], [address] [place] [address] Lawrence Mckeon M.D., Ph.D., Director of Laboratories , CLIA 49D [id number] O-Desmethyltramadol This test was developed and its analytical performance characteristics have been determined by [facility]. It has not been cleared or approved by the [place] Food and Drug Administration. This assay has been validated pursuant to the CLIA regulations and is used for clinical purposes. [facility] DRUGS OF ABUSE SCREEN AMPHETAM INE [PRESENCE] IN URINE BY SCREEN METHOD NEG 2019 Specimen Type: URINE No comment entered. [facility] DRUGS OF ABUSE SCREEN BARBITUR ATES [PRESENCE] IN URINE BY SCREEN METHOD NEG 12/01/2019 Specimen Type: URINE No comment entered. [facility] DRUGS OF ABUSE SCREEN BENZODIA ZEPINES [PRESENCE] IN URINE BY SCREEN METHOD NEG 12/01/2019 Specimen Type: URINE No comment entered. [facility] DRUGS OF ABUSE SCREEN CANNABIN OIDS [PRESENCE] IN URINE BY SCREEN METHOD NEG 12/01/2019 Specimen Type: URINE No comment entered. [facility] DRUGS OF ABUSE SCREEN COCAINE [PRESE NCE] IN URINE NEG 12/01/2019 Specimen T ype: URINE No comment entered. [facility] DRUGS OF ABUSE SCREEN OPIATES [PRESENCE] IN URINE BY SCREEN METHOD NEG 2019 Specimen Type: URINE No comment entered. [facility] DRUGS OF ABUSE SCREEN PHENCYCL IDINE [PRESENCE] IN URINE BY SCREEN METHOD NEG 12/01/2019 Specimen Type: URINE No comment entered. [facility] DRUGS OF ABUSE SCREEN CREATININE [MA SS/VOLUME] IN URINE 177.22 mg/dL 12/01/2019 Specimen Type: URINE No comment entered. [facility] DRUGS OF ABUSE SCREEN METHADONE [PRE SENCE] IN URINE NEG 12/01/2019 Specimen T ype: URINE No comment entered. [facility] DRUGS OF ABUSE SCREEN OXYCODONE [MAS S/VOLUME] IN URINE NEG 12/01/2019 Specimen T ype: URINE No comment entered. [facility] DRUGS OF ABUSE SCREEN ETHANOL [MASS/ VOLUME] IN URINE NEGmg/dL 12/01/2019 Specimen T ype: URINE No comment entered. [facility] URINALYSIS COLOR OF URINE Yello w 12/01/2019 Specimen Type: URINE No comment entered. [facility] URINALYSIS SPECIFIC GRAVITY OF URINE 1.020 12/01/2019 Specimen Type: URINE No comment entered. [facility] URINALYSIS UROBILINOGEN [MASS/VOLUME ] IN URINE Negativemg/dL 0.1 - 1.0 12/01/2019 Specimen Type: URINE No comment entered. [facility] URINALYSIS BILIRUBIN.TOTAL [NJ ESENCE] IN URINE BY TEST STRIP Negative 0 12/01/2019 Specimen Type: URINE No comment entered. [facility] URINALYSIS KETONES [MASS/VOLUME] IN URINE BY TEST STRIP Negativemg/dl 12/01/2019 Specimen Type: URINE No comment entered. [facility] URINALYSIS GLUCOSE [MASS/VOLUME] IN URINE BY TEST STRIP Negativemg/dL 12/01/2019 Specimen Type: URINE No comment entered. [facility] URINALYSIS PROTEIN [MASS/VOLUME] IN URINE BY TEST STRIP 100 mg/dl - Trace" 12/01/2019 Specimen Type: URINE No comment entered. [facility] URINALYSIS PH OF URINE BY TEST STRIP 5.0 12/01/2019 Specimen Type: URINE No comment entered. [facility] URINALYSIS APPEARANCE OF URINE Clear 12/01/2019 Specimen Type: URINE No comment entered. [facility] URINALYSIS HEMOGLOBIN [PRESENCE] IN URINE Negative 12/01/2019 Specimen Type: URINE No comment entered. [facility] URINALYSIS NITRITE [PRESENCE] IN URI NE BY TEST STRIP Negative 12/01/2019 Specimen T ype: URINE No comment entered. [facility] URINALYSIS LEUKOCYTE ESTERASE [PRESENCE] IN URINE BY TEST STRIP Negative 0 12/01/2019 Specimen Type: URINE No comment entered. [facility] URINALYSIS LEUKOCYTES [#/AREA] IN URINE SEDIMENT BY MICROSCOPY HIGH POWER FIELD 0-2WBC/HPF 0 - 5 12/01/2019 Specimen Type: URINE No comment entered. [facility] URINALYSIS ERYTHROCYTES [#/VOL UME] IN URINE SEDIMENT BY MICROSCOPY HIGH POWER FIELD 0-2RBC/HPF 0 - 2 12/01/2019 Specimen Type: URINE No comment entered. [facility] Vital Signs Combined list of inpatient and outpatient Vital Signs from all Department [facility] and/or [facility] medical facilities within the last 15 months. The included entries comply with the patient's data sharing authorizations. Vital Sign Value Date Comments Source SYSTOLIC BLOOD PRESSURE 122mm[ Hg] 01/12/2020 09:51:51 [facility] DIASTOLIC BLOOD PRESSURE 62mm[ Hg] 01/12/2020 09:51:51 [facility] PULSE OXIMETRY 95% 01/12/2020 09:51:51 [facility] WEIGHT 174.9[lb_av] 01/12/2020 09:51:51 [facility] BMI 30kg/m2 01/12/2020 09:51:51 [facility] PAIN 7 01/11 09:51:51 [facility] TEMPERATURE 97.8[degF] 01/12/2020 09:51:51 [facility] PULSE 53/min 01/12/2020 09:51:51 [facility] RESPIRATION 20/min 01/12/2020 09:51:51 [facility] PAIN 0 12/15 13:28:00 [facility] SYSTOLIC BLOOD PRESSURE 128mm[ Hg] 11/17/2019 09:56:39 [facility] DIASTOLIC BLOOD PRESSURE 66mm[ Hg] 11/17/2019 09:56:39 [facility] PULSE OXIMETRY 93% 11/17/2019 09:56:39 [facility] WEIGHT 179.7[lb_av] 11/17/2019 09:56:39 [facility] BMI 30kg/m2 11/17/2019 09:56:39 [facility] PAIN 8 11/17 09:56:39 [facility] TEMPERATURE 98.1[degF] 11/17/2019 09:56:39 [facility] PULSE 50/min 11/17/2019 09:56:39 [facility] RESPIRATION 18/min 11/17/2019 09:56:39 [facility] SYSTOLIC BLOOD PRESSURE 132mm[ Hg] 11/16/2019 14:12:28 [facility] DIASTOLIC BLOOD PRESSURE 58mm[ Hg] 11/16/2019 14:12:28 [facility] PULSE OXIMETRY 91% 11/16/2019 14:12:28 [facility] WEIGHT 183.1[lb_av] 11/16/2019 14:12:28 [facility] BMI 31kg/m2 11/16/2019 14:12:28 [facility] PAIN 0 11/16 14:12:28 [facility] TEMPERATURE 96.5[degF] 11/16/2019 14:12:28 [facility] PULSE 52/min 11/16/2019 14:12:28 [facility] RESPIRATION 16/min 11/16/2019 14:12:28 [facility] PAIN 0 10/20 11:42:00 [facility] SYSTOLIC BLOOD PRESSURE 138mm[ Hg] 09/22/2019 10:56:37 [facility] DIASTOLIC BLOOD PRESSURE 62mm[ Hg] 09/22/2019 10:56:37 [facility] PULSE OXIMETRY 94% 09/22/2019 10:56:37 [facility] WEIGHT 177.5[lb_av] 09/22/2019 10:56:37 [facility] BMI 30kg/m2 09/22/2019 10:56:37 [facility] PAIN 7 09/22 10:56:37 [facility] TEMPERATURE 97.6[degF] 09/22/2019 10:56:37 [facility] PULSE 62/min 09/22/2019 10:56:37 [facility] RESPIRATION 20/min 09/22/2019 10:56:37 [facility] SYSTOLIC BLOOD PRESSURE 138mm[ Hg] 08/25/2019 11:19:37 [facility] DIASTOLIC BLOOD PRESSURE 66mm[ Hg] 08/25/2019 11:19:37 [facility] SYSTOLIC BLOOD PRESSURE 128mm[ Hg] 07/28/2019 10:01:01 [facility] DIASTOLIC BLOOD PRESSURE 56mm[ Hg] 07/28/2019 10:01:01 [facility] PULSE OXIMETRY 92% 07/28/2019 10:01:01 [facility] WEIGHT 175.3[lb_av] 07/28/2019 10:01:01 [facility] BMI 30kg/m2 07/28/2019 10:01:01 [facility] PAIN 7 07/28 10:01:01 [facility] TEMPERATURE 98[degF] 07/28/2019 10:01:01 [facility] PULSE 56/min 07/28/2019 10:01:01 [facility] RESPIRATION 18/min 07/28/2019 10:01:01 [facility] SYSTOLIC BLOOD PRESSURE 122mm[ Hg] 06/30/2019 09:58:28 [facility] DIASTOLIC BLOOD PRESSURE 62mm[ Hg] 06/30/2019 09:58:28 [facility] PAIN 0 06/01 14:05:00 [facility] PAIN 0 05/04 08:53:00 [facility] SYSTOLIC BLOOD PRESSURE 124mm[ Hg] 04/21/2019 11:12:00 [facility] DIASTOLIC BLOOD PRESSURE 68mm[ Hg] 04/21/2019 11:12:00 [facility] Encounters Combined list of encounters at [facility] of Defense and/or [facility] ([place] ) for the last 15 months. Not all VA inpatient encounters are included. The incl uded entries comply with the patient's data sharing authorizations. Location Location Details Encounter Type Encounter Number Reason For Visit Attending Provider ADM Date DC Date Status Disposition Source Outpatient Encounter [id number] ICD-10 -CM E11.9 Type 2 diabetes mellitus without complications with Provider Comments: Diabetes mellitus (SCT [id number]) ELEUTERIO LIVINGSTON 10/21/2018 [facility] Outpatient Encounter [id number] _MAPID:[id number] 10/29/2018 [facility] Outpatient Encounter [id number] _MAPID:[id number] 11/03/2018 [facility] OFFICE/OUT PATIENT VISIT EST [id number] ICD-10 -CM E29.1 Testicular hypofunction with Provider Comments: Testicular Hypofunction ADELAIDA CLIFFORD 11/11/2018 [facility] Outpatient Encounter [id number] ICD-10 -CM E11.9 Type 2 diabetes mellitus without complications with Provider Comments: Diabetes mellitus (SCT [id number]) ELEUTERIO LIVINGSTON 11/17/2018 [facility] Outpatient Encounter [id number] _MAPID:[id number] 12/07/2018 [facility] Outpatient Encounter [id number] ICD-10 -CM E11.9 Type 2 diabetes mellitus without complications with Provider Comments: Diabetes mellitus (SCT [id number]) ELEUTERIO LIVINGSTON 12/20/2018 [facility] Outpatient Encounter [id number] _MAPID:[id number] 12/21/2018 [facility] Outpatient Encounter [id number] _MAPID:e [id number] 12/23/2018 [facility] 15 OFFICE/OUT PATIENT VISIT EST [id number] ICD-10 -CM I10. Essential (primary) hypertension with Provider Comments: Essential hypertension (SCT [id number]) THOM CHAMBERS 12/23/2018 [facility] Outpatient Encounter [id number] _MAPID:[id number] 12/28/2018 [facility] Outpatient Encounter [id number] _MAPID:e [id number] 12/29/2018 [facility] 15 Outpatient Encounter [id number] _MAPID:[id number] 12/29/2018 [facility] Outpatient Encounter [id number] _MAPID:[id number] 12/29/2018 [facility] Outpatient Encounter [id number] _MAPID:e [id number] 01/07/2019 [facility] 15 Outpatient Encounter [id number] ICD-10 -CM R86.1 Abn lev hormones in specimens from male genital organs with Provider Comments: Hypogonadism (SCT [id number]) ALLA NARAYANAN 01/07/2019 [facility] Outpatient Encounter [id number] _MAPID:e [id number] 01/07/2019 [facility] 15 Outpatient Encounter [id number] ICD-10 -CM E11.9 Type 2 diabetes mellitus without complications with Provider Comments: Diabetes mellitus (SCT [id number]) ELEUTERIO LIVINGSTON 01/10/2019 [facility] Outpatient Encounter [id number] _MAPID:[id number] 02/04/2019 [facility] Outpatient Encounter [id number] _MAPID:e [id number] 02/10/2019 [facility]/OUT PATIENT VISIT EST [id number] ICD-10 -CM R86.1 Abn lev hormones in specimens from male genital organs with Provider Comments: Hypogonadism (SCT [id number]) TERRIE CHAMBERSA 02/10/2019 [facility] Outpatient Encounter [id number] ICD-10 -CM E11.9 Type 2 diabetes mellitus without complications with Provider Comments: Diabetes mellitus (SCT [id number]) BALTRUSAITIS,ELEUTERIO L 02/15/2019 [facility] Outpatient Encounter [id number] _MAPID:e [id number] 02/17/2019 [facility] 15 Outpatient Encounter [id number] _MAPID:e [id number] 02/19/2019 [facility] 15 Outpatient Encounter [id number] _MAPID:e [id number] 03/10/2019 [facility] 15 Outpatient Encounter [id number] ICD-10 -CM E29.1 Testicular hypofunction with Provider Comments: Testicular Hypofunction TERRIE CHAMBERSA 03/10/2019 [facility] Outpatient Encounter [id number] ICD-10 -CM E11.9 Type 2 diabetes mellitus without complications with Provider Comments: Diabetes mellitus (SCT [id number]) BALTRUSAITIS,ELEUTERIO L 03/16/2019 [facility] Outpatient Encounter [id number] _MAPID:[id number] 03/25/2019 [facility] Outpatient Encounter [id number] ICD-10 -CM E11.9 Type 2 diabetes mellitus without complications with Provider Comments: Diabetes mellitus (SCT [id number]) BALTRUSAITIS,ELEUTERIO L 03/28/2019 [facility] Outpatient Encounter [id number] _MAPID:e [id number] 04/07/2019 [facility] En[facility] [id number] ICD-10 -CM E29.1 Testicular hypofunction with Provider Comments: Testicular Hypofunction REYESTHOM 04/07/2019 [facility] Outpatient Encounter [id number] _MAPID:[id number] 04/08/2019 [facility] Outpatient Encounter [id number] _MAPID:e [id number] 04/12/2019 [facility]/OUT PATIENT VISIT EST [id number] ICD-10 -CM E11.9 Type 2 diabetes mellitus without complications with Provider Comments: Diabetes mellitus (SCT [id number]) THOM CHAMBERS 04/12/2019 [facility] Outpatient Encounter [id number] _MAPID:e [id number] 04/21/2019 [facility] 15 OFFICE/OUT PATIENT VISIT EST [id number] ICD-10 -CM H61.23 Impacted cerumen, bilateral with Provider Comments: Impacted Cerumen, Bilateral BARBARA DUNCAN Laron 04/21/2019 [facility] Outpatient Encounter [id number] ICD-10 -CM E11.9 Type 2 diabetes mellitus without complications with Provider Comments: Diabetes mellitus (SCT [id number]) ELEUTERIO LIVINGSTON 04/25/2019 [facility] Outpatient Encounter [id number] _MAPID:e [id number] 05/04/2019 [facility] Encounter [id number] ICD-10 -CM E29.1 Testicular hypofunction with Provider Comments: Testicular Hypofunction THOM CHAMBERS 05/04/2019 [facility] Outpatient Encounter [id number] _MAPID:e kzBnppby78 05/04/2019 [facility] 15 Outpatient Encounter [id number] _MAPID:dnwAghuxr11 05/06/2019 [facility] Outpatient Encounter [id number] _MAPID:e ahRztcvo53 06/01/2019 [facility] 15 Outpatient Encounter [id number] ICD-10 -CM E29.1 Testicular hypofunction with Provider Comments: Testicular Hypofunction THOM CHAMBERS 06/01/2019 [facility] Outpatient Encounter [id number] ICD-10 -CM E11.9 Type 2 diabetes mellitus without complications with Provider Comments: Diabetes mellitus (SCT [id number]) ELEUTERIO LIVINGSTON 06/09/2019 [facility] Outpatient Encounter [id number] _MAPID:qbuGarcts25 06/13/2019 [facility] Outpatient Encounter [id number] _MAPID:asoLbnens10 06/22/2019 [facility] Outpatient Encounter [id number] _MAPID:e muWzcfhd53 06/23/2019 [facility] Out[facility] Encounter [id number] _MAPID:ptoYinnys03 06/23/2019 [facility] Outpatient Encounter [id number] _MAPID:e gyDfzxix37 06/23/2019 [facility] Outpatient Encounter [id number] _MAPID:ilbUvczmi13 06/24/2019 [facility] Outpatient Encounter [id number] _MAPID:e jdCjzhkx33 06/30/2019 [facility] 15 OFFICE/OUT PATIENT VISIT EST [id number] ICD-10 -CM R86.1 Abn lev hormones in specimens from male genital organs with Provider Comments: Hypogonadism (SCT [id number]) THOM CHAMBERS 06/30/2019 [facility] Outpatient Encounter [id number] ICD-10 -CM Z71.89 Other specified counseling with Provider Comments: Counseling,Oth Specified NARAYANANALLA 07/01/2019 [facility] Outpatient Encounter [id number] _MAPID:ezqZnylaf03 07/05/2019 [facility] Outpatient Encounter [id number] _MAPID:sibWzguie97 07/06/2019 [facility] [place] [facility] Outpatient Encounter [id number] _MAPID:vpfEqvxux65 07/08/2019 [facility] Outpatient Encounter [id number] _MAPID:cswZhwmgq72 07/10/2019 [facility] Outpatient Encounter [id number] _MAPID:peuFhrjyu42 07/13/2019 [facility] Outpatient Encounter [id number] _MAPID:finHnndvh06 07/14/2019 [facility] Outpatient Encounter [id number] ICD-10 -CM Z71.89 Other specified counseling with Provider Comments: Counseling,Oth Specified THOM CHAMBERS 07/19/2019 [facility] Outpatient Encounter [id number] _MAPID:e zgVsutcp58 07/20/2019 [facility] 15 Outpatient Encounter [id number] _MAPID:e kkKnxxkn33 07/20/2019 [facility] 15 Outpatient Encounter [id number] _MAPID:e hmPmykwo47 07/28/2019 [facility] 15 OFFICE/OUT PATIENT VISIT EST [id number] ICD-10 -CM R86.1 Abn lev hormones in specimens from male genital organs with Provider Comments: Hypogonadism [facility] [id number] THOM CHAMBERS 07/28/2019 [facility] Outpatient Encounter [id number] _MAPID:e fiYssmhw80 08/04/[facility] Encounter [id number] _MAPID:rctNimfvo13 08/16/2019 [facility] Outpatient Encounter [id number] _MAPID:e ryXjlatp48 08/25/2019 [facility] 15 OFFICE/OUT PATIENT VISIT EST [id number] ICD-10 -CM R86.1 Abn lev hormones in specimens from male genital organs with Provider Comments: Hypogonadism (SCT [id number]) THOM CHAMBERS 08/25/2019 [facility] Outpatient Encounter [id number] _MAPID:pgqAusxdp94 08/26/2019 [facility] Outpatient Encounter [id number] _MAPID:tsuSdidde60 09/07/2019 [facility] Outpatient Encounter [id number] _MAPID:yckNsgsrg01 09/20/2019 [facility] Outpatient Encounter [id number] _MAPID:e llCvacgt49 09/22/2019 [facility] 15 OFFICE/OUT PATIENT VISIT EST [id number] ICD-10 -CM R86.1 Abn lev hormones in specimens from male genital organs with Provider Comments: Hypogonadism (SCT [id number]) THOM CHAMBERS 09/22/2019 [facility] Outpatient Encounter [id number] _MAPID:qhxAmkcot93 09/23/2019 [facility] Outpatient Encounter [id number] ICD-10 -CM E11.9 Type 2 diabetes mellitus without complications with Provider Comments: Diabetes mellitus (SCT [id number]) ELEUTERIO LIVINGSTON 09/23/2019 [facility] Outpatient Encounter [id number] _MAPID:e tgXpqpca12 10/20/2019 [facility] 15 Outpatient Encounter [id number] ICD-10 -CM E29.1 Testicular hypofunction with Provider Comments: Testicular Hypofunction REYESTERRIEA 10/20/2019 [facility] Outpatient Encounter [id number] _MAPID:djmZqadge73 10/31/2019 [facility] Outpatient Encounter [id number] _MAPID:egtUjskpk35 11/03/2019 [facility] Outpatient Encounter [id number] _MAPID:dpeFniymi99 11/11/2019 [facility] Outpatient Encounter [id number] _MAPID:tsmBaegtd99 11/14/2019 [facility] OFFICE/OUT PATIENT VISIT EST [id number] ICD-10 -CM R86.1 Abn lev hormones in specimens from male genital organs with Provider Comments: Hypogonadism (SCT [id number]) ADELAIDA CLIFFORD 11/16/2019 [facility] Outpatient Encounter [id number] ICD-10 -CM E11.9 Type 2 diabetes mellitus without complications with Provider Comments: Diabetes mellitus (SCT [id number]) BALTRUSAELEUTERIO QUIGLEY L 11/16/2019 [facility] Outpatient Encounter [id number] _MAPID:e ccJpxxwa31 11/17/2019 [facility] 15 OFFICE/OUT PATIENT VISIT EST [id number] ICD-10 -CM R86.1 Abn lev hormones in specimens from male genital organs with Provider Comments: Hypogonadism (SCT [id number]) THOM CHAMBERS 11/17/2019 [facility] Outpatient Encounter [id number] _MAPID:bniIqzemy63 11/24/2019 [facility] Outpatient Encounter [id number] _MAPID:zjeUtcjzq10 11/29/2019 [facility] Outpatient Encounter [id number] _MAPID:vuzEdqgqb77 11/30/2019 [facility] Outpatient Encounter [id number] _MAPID:vebJnfhdw56 12/01/2019 [facility] Outpatient Encounter [id number] _MAPID:srzUxpmic22 12/02/2019 [facility] Outpatient Encounter [id number] _MAPID:cxyElydur94 12/05/2019 [facility] Outpatient Encounter [id number] _MAPID:rkrUrpchg95 12/06/2019 [facility] Outpatient Encounter [id number] _MAPID:e vsGproav01 12/12/2019 [facility] Encounter [id number] ICD-10 -CM E11.9 Type 2 diabetes mellitus without complications with Provider Comments: Diabetes mellitus (SCT [id number]) CRYSTALUSAELEUTERIO QUIGLEY L 12/14/2019 [facility] Outpatient Encounter [id number] _MAPID:e deQypasg50 12/15/2019 [facility] 15 OFFICE/OUT PATIENT VISIT EST [id number] ICD-10 -CM E29.1 Testicular hypofunction with Provider Comments: Testicular Hypofunction THOM CHAMBERS 12/15/2019 [facility] Outpatient Encounter [id number] _MAPID:e brXhuytj94 12/24/2019 [facility] Encounter [id number] _MAPID :endReason9 01/10/2020 [facility] Outpatient Encounter [id number] _MAPID:e ndReason8 01/12/2020 [facility] 15 OFFICE/OUT PATIENT VISIT EST [id number] ICD-10 -CM R86.1 Abn lev hormones in specimens from male genital organs with Provider Comments: Hypogonadism ([facility] [id number]) THOM CHAMBERS 01/12/2020 [facility] Outpatient Encounter [id number] _MAPID :endReason6 01/26/2020 [facility] Outpatient Encounter [id number] ICD-10 -CM E11.9 Type 2 diabetes mellitus without complications with Provider Comments: Diabetes mellitus ([facility] [id number]) ELEUTERIO LIVINGSTON L 01/26/2020 [facility] Outpatient Encounter [id number] _MAPID :endReason4 02/07/2020 [facility] Outpatient Encounter [id number] ICD-10 -CM E11.9 Type 2 diabetes mellitus without complications with Provider Comments: Diabetes mellitus (SCT [id number]) ELEUTERIO LIVINGSTON L 02/29/2020 [facility] Outpatient Encounter [id number] ICD-10 -CM E11.9 Type 2 diabetes mellitus without complications with Provider Comments: Diabetes mellitus (SCT [id number]) THOM CHAMBERS 03/20/2020 [facility] Outpatient Encounter [id number] ICD-10 -CM E11.9 Type 2 diabetes mellitus without complications with Provider Comments: Diabetes mellitus (SCT [id number]) ELEUTERIO LIVINGSTON L 03/28/2020 [facility] Procedures No Data Provided for This Section Social History Combined list of available smoking, tobacco, and other social history on record at Department of 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 The included entrie s comply with the patient's data sharing authorizations. Social History Type Response Date Comment Source Tobacco smoking status [facility] VA-TOBACCO QUIT 15 YRS OR MORE 02/17/2020 [facility] History of tobacco use VA-TO BACCO FORMER USER 02/17/2020 [facility] History of tobacco use VA-TO BACCO QUIT 15 YRS OR MORE 11/03/2018 [facility] History of tobacco use VA-TO BACCO FORMER USER 11/03/2018 [facility] History of tobacco use TOBAC CO LIFETIME NON-USER 10/23/2017 [facility] Assessment and Plan No Data Provided for This Section Plan of Care Date/Time Care Activity Care Activity Detail Facility 04/26/2020 AMBULATORY - NONE AMBULATORY - NONE [facility] 15 04/19/2020 AMBULATORY - NONE AMBULATORY - NONE [facility] [place] [facility] 04/05/2020 Laboratory - Chemis try Order LIPID PROFILE(HDL,TRIG,CHOL,LDL) GREEN T OP TUBE PLASMA SP ONCE [facility] 04/05/2020 Consult Order LE- PODIATRY CONSULTS OUTPT-589A6 Cons Md Psychiatry's Choice [facility] 04/05/2020 Consult Order COMMUNITY CARE-EK EYE OPHTHALMOLOGY-589A5 Cons Md Psychiatry's Choice [facility] 04/05/2020 Consult Order TO- RENAL OUTPT-589A5 Cons Md Psychiatry's Choice [facility] 04/05/2020 Laboratory - Chemis try Order HEMOGLOBIN A1C LAVENDER TOP BLOOD SP [facility] 04/05/2020 Laboratory - Chemis try Order COMPREHENSIVE METABOLIC PANEL GREEN TOP TUBE PLASMA SP ONCE [facility] 04/05/2020 Laboratory - Chemis try Order CBC and DIFF 5 ML LAVENDER TOP BLOOD SP ONCE [facility] 03/20/2020 Laboratory - Chemis try Order TSH SST GEL SERUM SP ONCE [facility] 03/20/2020 Laboratory - Chemis try Order PROSTATIC SPECIFIC ANTIGEN(TOTAL) SST GE L SERUM SP [facility] 03/20/2020 Laboratory - Chemis try Order URINALYSIS URIN,RAND URINE SP [facility] 03/20/2020 Laboratory - Chemis try Order MICROALBUMIN (CO,EK) URIN,RAND URINE SP [facility] Family History No Data Provided for This Section Advance Directives No Data Provided for This Section Functional Status No Data Provided for This Section
--- OUTSIDE RECORDS SUMMARY | 2020-04-18 09:22 | XMS REPORT | Encounter Summary ---
Author Author Department of [facility] SIMI palacio Organization Department of [facility] Address [address] [place] [id number] Phone Unavailable Care Team Providers Care Optical Laboratory Manager Name Role Phone THOM CHAMBERS PCP Unavailable Insurance Providers: All historical and current Section Date Range: From patient's date of to the date document was create d. This section includes the names of all active insurance providers for the raiza hernández Insurance Provider Type of Coverage Plan Name Start of Policy Co verage End of Policy Coverage Group Number Member ID Insurance Provider's Telephone N umber Policy Woodard's Name Patient's Relationship to Policy Woodard [employer] REP ([facility]) MEDICARE ADVANTAGE MCR ([facility]) Nov 09, 2017 [id number] [phone] SIMI COVARRUBIAS PATIENT [employer] MED REP (WNR) MEDICARE ADVANTAGE MCR ([facility]) Nov 09, 2017 [id number] [phone] SIMI COVARRUBIAS PATIENT AETNA MCR (WN) MEDICARE ADVANTAGE MCR ([facility]) Nov 09, 2019 [id number] SIMI COVARRUBIAS PATIENT Selected Encounter This section includes the information on record at [place] for the Encounter. Date/Time Encounter Type Encounter Description Reason Provider Source Nov 14, 2019 01:00 PM Outpatient Encounter [facility]OLOGY CLINIC [facility] [place] [facility] IHE Encounter Template Text not used by [place] Assessments - Encounter Diagnoses No Data Provided for This Section Plan of Treatment: Future Appointments (+ 6 months) and Future Tests (+/- 45 day s) The Plan of Treatment section includes future care activities for the patient fr om all [facility] treatment facilities. This section includes future appointments and fu ture orders which are active, pending or scheduled. Future Appointments This section includes appointments that were scheduled t o occur 6 months from the date of the Encounter, up to a maximum of 20 appointme nts. The data comes from all [place] treatment facilities. Appointment Date/Time Appointment Type Appointment Facili ty Name Nov 16, 2019 02:00 PM AMBULATORY - SURGERY [facility] [place] Nov 16, 2019 03:00 PM AMBULATORY - NONE [facility] [place] [facility] Nov 17, 2019 10:00 AM AMBULATORY - NONE [facility] Dec 01, 2019 11:30 AM AMBULATORY - MEDICINE [facility] Dec 14, 2019 03:00 PM AMBULATORY - NONE [facility] [place] [facility] Dec 15, 2019 01:00 PM AMBULATORY - NONE [facility] Jan 12, 2020 10:00 AM AMBULATORY - NONE [facility] Jan 26, 2020 03:00 PM AMBULATORY - NONE [facility] [place] [facility] Feb 29, 2020 02:30 PM AMBULATORY - NONE [facility] [place] [facility] March 20, 2020 08:00 AM AMBULATORY - MEDICINE [facility] March 28, 2020 11:30 AM AMBULATORY - NONE [facility] [place] [facility] Apr 19, 2020 11:00 AM AMBULATORY - NONE [facility] [place] [facility] Apr 26, 2020 10:45 AM AMBULATORY - NONE [facility] 15 Surgical Procedures: All associated to the encounter No Data Provided for This Section Lab Results: +/- 30 days of the encounter This section includes the Chemistry and Hematology Lab R esults on record with [place] for the patient. Radiology Reports and Pathology Report s are provided separately, in subsequent sections. Lab Results This section contains the Chemistry/Hematology Results anushka t were resulted 30 days before or 30 days after the date of the Encounter. Date/Time Source Result Type Result - Unit Interpretation Reference Range Comment Dec 01, 2019 11:09 AM [facility] CBC & DIFF Specimen Type: BLOOD No comment entered. WBC 10.73 K/cmm 3.60-11.20 RBC 6.96 M/ul H 4.1-5.7 HGB 18.6 g/dl H 13.1-16.8 HCT 57.7 % H 38.2-48.4 MCV 82.9 fl 80.1-98.5 MCH 26.7 pg L 27.0-34.0 MCHC 32.2 g/dl L 33.0-36.0 PLATELET COUNT 244 K/cmm 150-400 MPV 10.9 fl 7.5-11.2 RDW 17.2 % H 11.8-15.1 LYMPHOCYTES, AUTO% 11.3 % NEUTROPHILS, AUTO % 76.8 % MONOCYTES, AUTO% 7.7 % MONOCYTES, ABSOLUTE 0.83 K/cmm H 0.19-0.80 NEUTROPHILS, ABSOLUTE 8.25 K/cmm H 2.10-8. 00 EOSINOPHILS, ABSOLUTE 0.22 K/cmm 0.00-0. 60 BASOPHILS, ABSOLUTE 0.17 K/cmm 0.00-0.20 EOSINOPHILS, AUTO% 2.1 % BASOPHILS, AUTO% 1.6 % LYMPHOCYTES, ABSOLUTE 1.21 K/cmm 0.77-4. 50 IMMATURE GRANS, ABSOLUTE 0.05 K/cmm 0.00 -0.05 IMMATURE GRANS, AUTO % 0.5 % Dec 01, 2019 11:09 AM [facility] RENAL FUNCTION PANEL Specimen Type: PLASMA No comment entered. *CREATININE 1.48 mg/dL H 0.7-1.3 UREA NITROGEN mg/dL 19 mg/dL 9-25 GLUCOSE 99 mg/dL 72-99 SODIUM 143 mEq/L 136-145 POTASSIUM 3.4 mEq/L L 3.5-5.0 CALCIUM (mg/dL) 10.0 mg/dL 8.4-10.4 PHOSPHORUS INORGANIC 2.6 mg/dL 2.3-4.7 ALBUMIN 4.5 g/dl 3.4-5.0 CHLORIDE 101 mEq/L 98-107 CO2 34 mEq/L H 22-31 EGFR 46.5 Dec 01, 2019 11:09 AM [facility] URINALYSIS Specimen Type: URINE No comment entered. URINE COLOR Yellow SPECIFIC GRAVITY 1.021 1.005-1.030 UROBILINOGEN 2.0 mg/dL H 0.1-1.0 URINE BILIRUBIN Negative Negative URINE KETONES Negative mg/dl Negative URINE GLUCOSE Negative mg/dL Negative URINE PROTEIN 100 mg/dl Negative-Trace URINE PH 5.0 5-8 URINE MUCUS Trace /LPF None APPEARANCE,URINE Clear Clear URINE BLOOD Negative Negative URINE NITRITE Negative Negative LEUKOCYTE ESTERASE Negative Negative HYALINE CASTS 1-2 /LPF *UR WBC 0-2 WBC/HPF 0-5 *UR RBC 0-2 RBC/HPF 0-2 Dec 01, 2019 11:09 AM [facility] MAGNESIUM (mg/dL) Specimen Type: PLASMA No comment entered. MAGNESIUM (mg/dL) 2.4 mg/dl 1.6-2.6 Dec 01, 2019 11:09 AM [facility] HEPATIC FUNCTION PANE L Specimen Type: PLASMA No comment entered. PROTEIN,TOTAL 7.2 g/dL 6.0-8.6 ALBUMIN 4.5 g/dl 3.4-5.0 TOTAL BILIRUBIN 0.7 mg/dL 0.2-1.2 DIRECT BILIRUBIN 0.30 mg/dL 0-0.5 ASPARTATE TRANSAMINASE 29 U/L 5-34 ALANINE AMINOTRANSFERASE 20 U/L 8-40 ALKALINE PHOSPHATASE 98 U/L 40-150 Dec 01, 2019 11:09 AM [facility] MICROALBUMIN (CO,EK) Specimen Type: URINE No comment entered. *MICROALBUMIN(CONC) 116.8 mg/dL - *MICROALBUMIN(SPOT) 651.8 mcg/mg cr HH 0-29 *CREATININE mg/dL 179.2 mg/dl Not Avail. Dec 01, 2019 11:09 AM [facility] COMPREHENSIVE METABOL IC PANEL Specimen Type: PLASMA No comment entered. *CREATININE 1.48 mg/dL H 0.7-1.3 UREA NITROGEN mg/dL 19 mg/dL 9-25 GLUCOSE 99 mg/dL 72-99 SODIUM 143 mEq/L 136-145 POTASSIUM 3.4 mEq/L L 3.5-5.0 CALCIUM (mg/dL) 10.0 mg/dL 8.4-10.4 PROTEIN,TOTAL 7.2 g/dL 6.0-8.6 ALBUMIN 4.5 g/dl 3.4-5.0 TOTAL BILIRUBIN 0.7 mg/dL 0.2-1.2 ASPARTATE TRANSAMINASE 29 U/L 5-34 ALANINE AMINOTRANSFERASE 20 U/L 8-40 CHLORIDE 101 mEq/L 98-107 CO2 34 mEq/L H 22-31 ALKALINE PHOSPHATASE 98 U/L 40-150 EGFR 46.5 Dec 01, 2019 11:09 AM [facility] TRAMADOL SCRN W/REFLE X,URINE Specimen Type: URINE Comment: normalcy status - Abnormal Tramadol Screen This test was performed using a forensic kit that is intended for the qualitative and semi- quantitative determination of Tramadol in human urine and has not been cleared or approved by the FDA for diagnostic purposes. The analytical performance characteristics of this test have been determined by [facility]. This test should not be used for diagnosis without confirmation by other, more specific, confirmatory analytical methodologies. Test performed by [facility] [address] [place] [address] Patient Safety Manager: Baron Domingo M.D.,Ph.D. Test Reported by [facility], [facility], [address] [place] [address] Lawrence Mckeon M.D., Ph.D., Director of Laboratories , CLIA [id number] O-Desmethyltramadol This test was developed and its analytical performance characteristics have been determined by [facility]. It has not been cleared or approved by the US Food and Drug Administration. This assay has been validated pursuant to the CLIA regulations and is used for clinical purposes. *TRAMADOL SCREEN, URINE Positive Negati ve *TRAMADOL QUANT, URINE > 5000 ng/mL H < 10 0 *DESMETHYLTRAMADOL, URINE >5000 ng/mL H < 100 Dec 01, 2019 11:09 AM [facility] DRUGS OF ABUSE SCREEN Specimen Type: URINE No comment entered. AMPHETAMINE NEG Negative BARBITURATES NEG Negative BENZODIAZEPINES NEG Negative CANNABINOIDS NEG Negative COCAINE NEG Negative OPIATES NEG Negative PHENCYCLIDINE(PCP) NEG Negative *CREATININE,DRUG SCR 177.22 mg/dL METHADONE(UDS) NEG Negative OXYCODONE (URINE) NEG Negative ALCOHOL-URINE,RANDOM (SOSA,WI,EK) NEG mg/dL <10 Dec 01, 2019 11:09 AM [facility] URINALYSIS Specimen Type: URINE No comment entered. URINE COLOR Yellow SPECIFIC GRAVITY 1.020 1.005-1.030 UROBILINOGEN Negative mg/dL 0.1-1.0 URINE BILIRUBIN Negative Negative URINE KETONES Negative mg/dl Negative URINE GLUCOSE Negative mg/dL Negative URINE PROTEIN 100 mg/dl Negative-Trace URINE PH 5.0 5-8 APPEARANCE,URINE Clear Clear URINE BLOOD Negative Negative URINE NITRITE Negative Negative LEUKOCYTE ESTERASE Negative Negative *UR WBC 0-2 WBC/HPF 0-5 *UR RBC 0-2 RBC/HPF 0-2 Nov 10, 2019 11:39 AM [facility] [employer] HEMOGLOBIN A1C Specimen Type: BLOOD No comment entered. HEMOGLOBIN A1C 10.6 % H 4.0-6.0 Nov 10, 2019 11:39 AM [facility] [employer] BASIC METABOLIC PANEL Specimen Type: PLASMA No comment entered. *CREATININE 1.60 mg/dL H 0.7-1.3 UREA NITROGEN mg/dL 24 mg/dL 9-25 GLUCOSE 226 mg/dL H 72-99 SODIUM 140 mEq/L 136-145 POTASSIUM 3.9 mEq/L 3.5-5.0 CALCIUM (mg/dL) 9.3 mg/dL 8.4-10.4 CHLORIDE 101 mEq/L 98-107 CO2 29 mEq/L 22-31 EGFR 42.6 Nov 10, 2019 11:39 AM [facility] [employer] TESTOSTERONE (SOSA ,WI,EK) Specimen Type: SERUM No comment entered. TESTOSTERONE (,WI,EK) 371 ng/dL 221-87 1 Nov 10, 2019 11:39 AM [facility] [employer] CBC & DIFF Specimen Type: BLOOD No comment entered. WBC 10.06 K/cmm 3.60-11.20 RBC 6.68 M/ul H 4.1-5.7 HGB 17.8 g/dl H 13.1-16.8 HCT 54.8 % H 38.2-48.4 MCV 82.0 fl 80.1-98.5 MCH 26.6 pg L 27.0-34.0 MCHC 32.5 g/dl L 33.0-36.0 PLATELET COUNT 229 K/cmm 150-400 MPV 10.8 fl 7.5-11.2 RDW 15.4 % H 11.8-15.1 LYMPHOCYTES, AUTO% 11.8 % NEUTROPHILS, AUTO % 76.4 % MONOCYTES, AUTO% 8.1 % MONOCYTES, ABSOLUTE 0.81 K/cmm H 0.19-0.80 NEUTROPHILS, ABSOLUTE 7.69 K/cmm 2.10-8. 00 EOSINOPHILS, ABSOLUTE 0.25 K/cmm 0.00-0. 60 BASOPHILS, ABSOLUTE 0.09 K/cmm 0.00-0.20 EOSINOPHILS, AUTO% 2.5 % BASOPHILS, AUTO% 0.9 % LYMPHOCYTES, ABSOLUTE 1.19 K/cmm 0.77-4. 50 IMMATURE GRANS, ABSOLUTE 0.03 K/cmm 0.00 -0.05 IMMATURE GRANS, AUTO % 0.3 % Nov 10, 2019 11:39 AM [facility] [place] [facility] PROSTATIC SP ECIFIC ANTIGEN(TOTAL) Sp ecimen Type: SERUM No comment entered. PROSTATIC SPECIFIC ANTIGEN(TOTAL) 1.08 ng/mL 0-4 Vital Signs: All taken on the encounter date No Data Provided for This Section Immunizations: All administered on the encounter date No Data Provided for This Section Social History: Smoking Status (Most current) and Tobacco Use (All prior to enco unter date) No Data Provided for This Section Advance Directives: All historical and current No Data Provided for This Section Allergies and Adverse Reactions (ADRs): All historical and current Section Date Range: From patient's date of to the date document was create d. This section includes Allergies and Adverse Reactions (ADR s) on record with [place] for [place]. The data comes from a ll [place] treatment facilities. It does not list Allergies/ADRs that were removed or entered in error. Some allergies/ADRs may be reported in t Immunization section. Allergen Event Date Event Type Reaction(s) Severity Source LISINOPRIL Dec 01, 2017 Propensity to adverse reactions to drug (disorder) Renal impairment [facility] 15 METFORMIN Dec 01, 2017 Propensity to adverse reactions to drug (disorder) Renal impairment [facility] 15 Medications: VA dispensed (-15 months) and Non-VA Documented (Obtained Outside A) Section Date Range: 1) prescriptions processed by a [place] pharmacy in the last 15 m [facility], and 2) all medications recorded in the [place] medical record as "non-VA medic ations". Pharmacy terms refer to [place] pharmacy's work on prescriptions. VA patient s are advised to take their medications as instructed by their health care team. The data comes from all [place] treatment facilities. Glossary of Pharmacy Terms:Active = A prescription that can be filled at the local [place] pharmacy.Active: On Hold = An active prescription that will not be filled until pharmacy resolves the issue.Active: Susp = An active prescription that is not scheduled to be filled yet.Clinic Order = A medication received during a visit to a [place] clinic or emergency department (currently not available).Discontinued = A prescription stopped by a VA provider. It is no longer available to be filled. = A prescription which is too old to fill. This does not refer to the expiration date of the medication in the container. Non-VA = A medication that came from someplace other than a [place] pharmacy. This may be a prescription from either the [place] or other providers that was filled outside the [place]. Or, it may be an over the counter (OTC), herbal, dietary supplement or sample medication.Pending = This prescription order has been sent to the Pharmacy for review and is not ready yet. Medication Name and Strength Pharmacy Term Instructions Quantity Or dered Prescription Expires Prescription Number Last Dispense Date Ordering Provider Facility ACCU-CHEK ROSINA PLUS (GLUCOSE) TEST STRIP Active USE 1 STRIP FOR TESTING FOUR TIMES A DAY 400 Sep 12, 2020 [id number] Feb 29, [facility] ROSINA PLUS (GLUCOSE) TEST STRIP Discontinued USE 1 STRIP FOR TESTING FOUR TIMES A DAY 400 Sep 15, 2019 [id number] Jun 13, 2019 [facility] Discontinued USE 1 PAD ON SKIN FOUR TIMES A DAY 40 0 Apr 25, 2020 [id number] Nov 29, 2019 [facility] [place] [facility] PAD Discontinued USE 1 PAD ON SKIN FOUR TIMES A DAY 40 0 Sep 15, 2019 [id number] Apr 18, [facility] ALL[facility] 100MG TAB Active TAKE ONE TABLET BY MOUTH ONCE A DAY FOR GOUT. TAKE WITH PLENTY OF WATER 90 Sep 23, 2020 [id number] Mar 05, 2020 SILVINA CHAMBERS [facility] [place] [facility] ALLOPURINOL 100MG TAB Discontinued TAKE ONE TABLET BY MOUTH ONCE A DAY FOR GOUT. TAKE WITH PLENTY OF WATER 90 Dec 30, 2019 [id number] Sep 17, 2019 THOM SHARPE [facility] [place] [facility] ALOGLIPTIN 12.5MG TAB Active TAKE ONE TABLET BY MOUTH O NCE A DAY FOR DIABETES 90 Sep 12, 2020 [id number] Mar 04, 2020 BALELEUTERIO KONG [facility] [place] [facility] ALOGLIPTIN 12.5MG TAB Discontinued TAKE ONE TABLET BY MOUTH ONCE A DAY FOR DIABETES 90 Dec 22, 2019 [id number] Jun 18, 2019 BALTRUSAITIS,ELEUTERIO L [facility] [place] [facility] AMLODIPINE BESYLATE 10MG TAB Discontinued TAKE ONE TA BLET BY MOUTH EVERY MORNING FOR HEART/BLOOD PRESSURE 90 Jun 10, 2019 [id number] Feb 25, 2019 JAQUELIN MONIKA Larry [facility] [place] [facility] AMLODIPINE BESYLATE 10MG TAB TAKE ONE TA BLET BY MOUTH EVERY MORNING FOR HEART/BLOOD PRESSURE 90 Apr 12, 2020 [id number] Feb 10, 2020 SILVINA CHAMBERS [facility] ASPIRIN 81MG TAB,CHEWABLE Non-VA CHEW ONE TABLET BY MOUTH ONCE A DAY Non-VA Documented by: MEGAN HAWKume nted at: [facility] [place] [facility] ATORVASTATIN CA 20MG TAB Active TAKE ONE TABLET BY MOUTH ONCE A DAY FOR CHOLESTEROL. REPORT ANY UNEXPLAINED MUSCLE PAIN OR WEAKNESS TO YOUR DOCTOR. 90 Jan 02, 2021 [id number] March 24, 2020 [facility] ATORVASTATIN CA 40MG TAB Discontinued TAKE ONE-HALF T ABLET BY MOUTH AT BEDTIME FOR CHOLESTEROL. REPORT ANY UNEXPLAINED MUSCLE PAIN OR WEAKNESS TO YOUR DOCTOR. 45 Jul 15, 2020 [id number] Oct 14, 2019 REYESTHOM [facility] [place] [facility] ATORVASTATIN CA 40MG TAB Discontinued TAKE ONE-HALF T ABLET BY MOUTH AT BEDTIME FOR CHOLESTEROL. REPORT ANY UNEXPLAINED MUSCLE PAIN OR WEAKNESS TO YOUR DOCTOR. 45 Oct 12, 2019 [id number] Jul 16, 2019 THOM CHAMBERS [facility] [place] [facility] CALCIUM CARBONATE 500MG TAB,CHEWABLE Non-VA CHEW ONE TABLET BY MOUTH PRN Non-VA Documented by: THOM CHAMBERS [facility]ted at[facility] CHLORTHALIDONE 25MG TAB Active TAKE ONE TABLET BY MOUTH ONCE A DAY 90 Jul 01, 2020 [id number] March 19, 2020 MONIKA HAMMER [facility] [place] [facility] CHLORTHALIDONE 25MG TAB Discontinued TAKE ONE TABLET BY MOUTH ONCE A DAY 90 Jun 16, 2019 [id number] Apr 12, 2019 MONIKA HAMMER [facility] [place] [facility] CHOLECALCIFEROL 1000UNT TAB Non-VA TAKE ONE TABLET BY MOUTH EVERY OTHER DAY Non-VA Docume nted by: MEGAN HAWKume nted at: [facility] [place] [facility] CYANOCOBALAMIN 1000MCG/ML INJ Active INJECT 100 0 MCG (1 ML) INTRAMUSCULARLY EVERY MONTH FOR B12 SUPPLEMENTATION. 3 Nov 03, 2020 [id number] Apr 23, 2020 [facility] [place] [facility] CYANOCOBALAMIN 1000MCG/ML INJ Discontinued INJECT 100 0 MCG (1 ML) INTRAMUSCULARLY EVERY MONTH FOR B12 SUPPLEMENTATION. 3 Nov 17 0 [id number] Aug 07, 2019 [facility] [place] [facility] DIPHENHYDRAMINE HCL 25MG CAP Non-VA TAKE 1 CAPSULE BY MOUTH PRN Non-VA Documented by: THOM CHAMBERS Docume nted at: [facility] DOCUSATE NA 100MG CAP No n-VA TAKE 2 CAPSULES BY MOUTH ONCE A DAY Non-VA Documented by: THOM CHAMBERS Docume nted at: [facility] FISH OIL 1000MG (500MG DHA/EPA) CAP,ORAL Non-VA TAKE 1 CAPSULE BY MOUTH ONCE A DAY Non-VA Documented by: MEGAN HAWK Docume nted at: [facility] [place] [facility] GABAPENTIN 100MG CAP Active TAKE 1 CAPSULE BY M OUTH EVERY MORNING AND TAKE 1 CAPSULE BY MOUTH AT NOON AND TAKE 2 CAPSULES BY MOUTH AT BEDTIME 360 Jul 06, 2020 [id number] March 31, 2020 ELEUTERIO LIVINGSTON [facility] [place] GLUCAGON 1MG/GABRIELLA INJ,EMERGENCY KIT INJEC T 1MG SUBCUTANEOUSLY NEEDED FOR SEVERE HYPOGLYCEMIA 1 Nov 30, 2019 [id number] Nov 03, 2019 [facility] [place] [facility] INSULIN,ASPART,HUMAN 100U/ML,NOVOLOG,FLEXPEN,3ML Active: On Hold INJECT 20 UNITS SUBCUTANEOUSLY BEFORE BREAKFAST AND INJECT 20 UNITS BEFORE LUNCH AND INJECT 26 UNITS BEFORE SUPPER AND INJECT 24 UNITS SNACK FOR BLOOD SUGAR CONTROL. ADMINISTER 10 MINUTES BEFORE FOOD DIRECTED. REFRIGERATE UN-OPENED PENS. DISCARD CARTRIDGE 28 DAYS AFTER OPENING. PLUS CORRECTION Mar 01, 2021 [id number] ELEUTERIO LIVINGSTON [facility] INSULIN,ASPART,HUMAN 100U/ML,NOVOLOG,FLEXPEN,3ML Discontinue d INJECT 20 UNITS SUBCUTANEOUSLY BEFORE BREAKFAST AND INJECT 20 UNITS BEFORE LUNCH AND INJECT 24 UNITS BEFORE SUPPER AND INJECT 24 UNITS SNACK FOR BLOOD SUGAR CONTROL. ADMINISTER 10 MINUTES BEFORE FOOD DIRECTED. REFRIGERATE UN-OPENED PENS. DISCARD CARTRIDGE 28 DAYS AFTER OPENING. PLUS CORRECTION 30 Jan 26, 2021 [id number] Jan 28, 2020 ELEUTERIO LIVINGSTON [facility] [place] [facility] INSULIN,ASPART,HUMAN 100U/ML,NOVOLOG,FLEXPEN,3ML Discontinue d INJECT 20 UNITS SUBCUTANEOUSLY BEFORE MEALS FOR BLOOD SUGAR CONTROL. ADMINISTER 10 MINUTES BEFORE FOOD DIRECTED. REFRIGERATE UN-OPENED PENS. DISCARD CARTRIDGE 28 DAYS AFTER OPENING. PLUS CORRECTION FOR BLOOD SUGAR CONTROL. ADMINISTER 10 MINUTES BEFORE FOOD DIRECTED. REFRIGERATE UN-OPENED PENS. DISCARD CARTRIDGE 28 DAYS AFTER OPENING. PLUS CORRECTION 30 Nov 16, 2020 [id number] Nov 16 ELEUTERIO LIVINGSTON [facility] [place] [facility] INSULIN,ASPART,HUMAN 100U/ML,NOVOLOG,FLEXPEN,3ML Discontinue d INJECT 15 UNITS SUBCUTANEOUSLY EVERY MORNING BEFORE MEAL AND INJECT 15 UNITS WITH LUNCH AND INJECT 15 UNITS WITH SUPPER AND INJECT 20 UNITS WITH SNACK FOR BLOOD SUGAR CONTROL. ADMINISTER 10 MINUTES BEFORE FOOD DIRECTED. REFRIGERATE UN-OPENED PENS. DISCARD CARTRIDGE 28 DAYS AFTER OPENING. Dec 22, 2019 5 [id number] Oct 12, 2019 ELEUTERIO LIVINGSTON [facility] [place] [facility] INSULIN,GLARGINE,HUMAN 100 UNIT/ML INJ,SOLOSTAR,3ML Active INJECT 50 UNITS SUBCUTANEOUSLY EVERY MORNING FOR BLOOD SUGAR CONTROL. ADMINISTER AT SAME TIME EACH DAY DIRECTED. DISCARD ANY OPEN CARTRIDGE AFTER 28 DAYS. Sep 23, 2020 [id number] Jan 28, 2020 ELEUTERIO LIVINGSTON [facility] INSULIN,GLARGINE,HUMAN 100 UNIT/ML INJ,SOLOSTAR,3ML Disconti nued INJECT 45 UNITS SUBCUTANEOUSLY EVERY MORNING FOR BLOOD SUGAR CONTROL. ADMINISTER AT SAME TIME EACH DAY DIRECTED. DISCARD ANY OPEN CARTRIDGE AFTER 28 DAYS. Oct 23, 2019 [id number] Aug 30, 2019 ELEUTERIO LIVINGSTON [facility] [place] LACTOBACILLUS ACIDOPHILUS TAB,CHEWABLE Non-VA CHEW ONE TABLET BY MOUTH ONCE A DAY Non-VA Documented by: MEGAN HAWK nted at: [facility] [place] [facility] LANCET,SOFTCLIX Active USE LANCET 5 TIME S A DAY FOR TESTING BLOOD GLUCOSE DIRECTED Dec 28, 2020 [id number] March 19, 2020 ELEUTERIO LIVINGSTON [facility] [place] LANCET,SOFTCLIX Discontinued USE LANCET 5 TIME S A DAY FOR TESTING BLOOD GLUCOSE DIRECTED 500 Jan 11, 2020 [id number] Sep 29, 2019 ELEUTERIO PATEL [facility] [place] MAGNESIUM OXIDE 400MG TAB Non-VA TAKE ONE TABLET BY MOUTH ONCE A DAY Non-VA Documented by: MEGAN HAWK nted at: [facility] [place] [facility] METOPROLOL SUCCINATE 200MG TAB,SA TAKE O NE-HALF TABLET BY MOUTH EVERY EVENING FOR HEART/BLOOD PRESSURE. SWALLOW WHOLE, DO NOT CRUSH OR CHEW (TABLETS MAY BE CUT IN HALF). 45 March 18, 2020 [id number] Dec 28, 2019 STANISLAV H[facility] NEEDLE 22G 1.5IN USE NEEDLE FOR EVERY MONTH 1 Nov 12, 2019 [id number] Feb 07, 2019 ADELAIDA CLIFFORD [facility] [place] NEEDLE,PEN 31G,5MM Discontinued USE NEEDLE SUBCUTANE OUSLY 5 TIMES A DAY - THIS IS A SINGLE USE NEEDLE AND SHOULD BE DISCARDED AFTER USE 500 Dec 21, 2019 [id number] Sep 28, 2019 ELEUTERIO LIVINGSTON [facility] POTASSIUM CHLORIDE 10MEQ TAB,SA Active TAKE TWO TABLETS BY MOUTH TWO TIMES A DAY FOR POTASSIUM SUPPLEMENTATIONTAKE WITH FOOD 360 Dec 12, 2020 [id number] Mar 02, 2020 [facility] POTASSIUM CHLORIDE 10MEQ TAB,SA Discontinued TAKE ONE TABLET BY MOUTH THREE TIMES A DAY WITH MEALS FOR POTASSIUM SUPPLEMENTATIONTAKE WITH FOOD 180 March 16, 2020 [id number] Nov 29, 2019 ELEUTERIO LIVINGSTON [facility] [place] POTASSIUM CHLORIDE 10MEQ TAB,SA Discontinued TAKE ONE TABLET BY MOUTH THREE TIMES A DAY WITH MEALS FOR POTASSIUM SUPPLEMENTATIONTAKE WITH FOOD 180 May 26, 2019 [id number] Jan 24, [address] [facility] [place] SYRINGE 2.5-3ML/NDL 25G 1IN Active USE 1 SYRINGE EVERY MONTH 3 Feb 21, 2021 [id number] March 20, 2020 REYES[facility] SYRINGE 2.5-3ML/NDL 25G 1IN Discontinued USE 1 SYRINGE EVERY Thu 3 March 18, 2020 [id number] Dec 21, [address] [facility] TESTOSTERONE CYPIONATE 200MG/ML INJ,1ML (IN OIL) Active INJECT 200 MG (1 ML) INTRAMUSCULARLY EVERY MONTH FOR HORMONE REPLACEMENT 1 May 18, 2020 [id number] April 06, 2020 ADELAIDA [facility] [place] [facility] TESTOSTERONE CYPIONATE 200MG/ML INJ,1ML (IN OIL) Discontinue d INJECT 200 MG (1 ML) INTRAMUSCULARLY EVERY MONTH FOR HORMONE REPLACEMENT March 25, 2020 [id number] Oct 25, 2019 ADELAIDA [facility] [place] [facility] TESTOSTERONE CYPIONATE 200MG/ML INJ,1ML (IN OIL) Discontinue d INJECT 200 MG (1 ML) INTRAMUSCULARLY EVERY MONTH FOR HORMONE REPLACEMENT 1 Nov 06, 2019 [id number] Sep 25, 2019 ADELAIDA CLIFFORD [facility] [place] [facility] TESTOSTERONE CYPIONATE 200MG/ML INJ,1ML (IN OIL) Discontinue d INJECT 200 MG (1 ML) INTRAMUSCULARLY EVERY MONTH FOR HORMONE REPLACEMENT 1 May 14, 2019 [id number] Apr 10, 2019 ADELAIDA CLIFFORD [facility] [place] [facility] TRAMADOL HCL 50MG TAB Active TAKE 1 TO 2 TABLET S BY MOUTH EVERY 6 HOURS NEEDED FOR PAIN 180 Jul 21, 2020 [id number] March 30, 2020 [facility] TRAMADOL HCL 50MG TAB Discontinued TAKE 1 TO 2 TABLET S BY MOUTH EVERY 6 HOURS NEEDED FOR PAIN 180 Jun 06, 2020 [id number] Jan 11, 2020 [facility] TRAMADOL HCL 50MG TAB Discontinued TAKE 1 TO 2 TABLET S BY MOUTH EVERY 6 HOURS NEEDED FOR PAIN 180 Jun 06, 2020 [id number] Dec 06, 2019 [facility] TRAMADOL HCL 50MG TAB Discontinued TAKE 1 TO 2 TABLET S BY MOUTH EVERY 6 HOURS NEEDED FOR PAIN 180 Dec 14, 2019 [id number] Nov 15, 2019 DANTE VALVERDE [facility] [place] TRAMADOL HCL 50MG TAB Discontinued TAKE 1 TO 2 TABLET S BY MOUTH EVERY 6 HOURS NEEDED FOR PAIN 180 Jul 06, 2019 [id number] May 26, 2019 NELLA GROVE [facility] [place] TRIAMCINOLONE ACETONIDE 0.5% CREAM,TOP Active A PPLY SPARINGLY TO AFFECTED AREA ONCE A DAY NEEDED FOR RASH 45 Jul 15, 2020 [id number] April 01 0 TOHM CHAMBERS [facility] [place] TRIAMCINOLONE ACETONIDE 0.5% CREAM,TOP Discontinued A PPLY SPARINGLY TO AFFECTED AREA ONCE A DAY NEEDED FOR RASH 45 Oct 12, 2019 [id number] Jul THOM CHAMBERS [facility] [place] Problems (Conditions): All historical and current Section Date Range: From patient's date of to the date document was create d. This section includes a list of Problems (Conditions) know n to [facility] for the patient. It includes both active and inacti ve problems (conditions). The data comes from all [place] treatment facilities. Problem Status Problem Code Date of Onset Date of Resolution Comm ent(s) Provider Source Basal cell carcinoma of scalp Active [id number] THOM CHAMBERS [facility] [place] Chronic back pain Active [id number] TERRIE CHAMBERS [facility] [place] [facility] Chronic kidney disease stage 3 Active [id number] THOM CHAMBERS [facility] [place] [facility] Constipation Active 74894084 THOM CHAMBERS [facility] [place] Diabetes mellitus Active 62829816 THOM CHAMBERS [facility] [place] Diabetic neuropathy Active [id number] Neha CHAMBERS [facility] [place] Essential hypertension Active 58510173 THOM CHAMBERS [facility] [place] Hyperlipidemia Active 25759543 THOM CHAMBERS [facility] [place] Hypogonadism Active 30442688 THOM CHAMBERS [facility] [place] Sleep apnea Active 38950659 THOM CHAMBERS [facility] [place] Radiology Reports: +/- 30 days of the encounter No Data Provided for This Section Pathology Reports: +/- 30 days of the encounter No Data Provided for This Section Encounter Notes: All associated encounter notes No Data Provided for This Section
--- OUTSIDE RECORDS SUMMARY | 2020-04-18 09:22 | XMS REPORT | Encounter Summary ---
Author Author Department of [facility] SIMI palacio Organization Department of [facility] Address [address] [place] [id number] Phone Unavailable Care Team Providers Care Cleat Thrower Name Role Phone THOM CHAMBERS PCP Unavailable [...] to Policy Woodard [facility] ([facility]) MEDICARE ADVANTAGE MCR ([facility]) Nov 09, 2017 [id number] [phone] SIMI COVARRUBIAS PATIENT [facility] (R) MEDICARE ADVANTAGE MCR ([facility]) Nov 09, 2017 [id number] [phone] SIMI COVARRUBAIS PATIENT [facility] ([facility]) MEDICARE ADVANTAGE MCR ([facility]) Nov 09, 2019 [id number] [id number] SIMI COVARRUBIAS PATIENT Selected Encounter This section includes the information on record at [place] for the Encounter. Date/Time Encounter Type Encounter Description Reason Provider Source Oct 31, 2019 10:59 AM Outpatient Encounter ADMIN PAT ACTIVTIES ([facility]) [facility] [place] IHE Encounter Template Text not used by VA Assessments - Encounter Diagnoses No Data Provided for This Section Plan of Treatment: Future Appointments (+ 6 months) and Future Tests (+/- 45 day s) The Plan of Treatment section includes future care activities for the patient fr om all [place] treatment facilities. This section includes future appointments and fu ture orders which are active, pending or scheduled. Future Appointments This section includes appointments that were scheduled t o occur 6 months from the date of the Encounter, up to a maximum of 20 appointme nts. The data comes from all [place] treatment facilities. Appointment Date/Time Appointment Type Appointment Facili ty Name Nov 10, 2019 12:00 PM AMBULATORY - MEDICINE [facility] Nov 16, 2019 02:00 PM AMBULATORY - SURGERY [facility] [place] Nov 16, 2019 03:00 PM AMBULATORY - NONE [facility] [place] Nov 17, 2019 10:00 AM AMBULATORY - NONE [facility] Dec 01, 2019 11:30 AM AMBULATORY - MEDICINE [facility] Dec 14, 2019 03:00 PM AMBULATORY - NONE [facility] [place] Dec 15, 2019 01:00 PM AMBULATORY - NONE [facility] Jan 12, 2020 10:00 AM AMBULATORY - NONE [facility] Jan 26, 2020 03:00 PM AMBULATORY - NONE [facility] [place] Feb 29, 2020 02:30 PM AMBULATORY - NONE [facility] [place] March 20, 2020 08:00 AM AMBULATORY - MEDIC[facility] March 28, 2020 11:30 AM AMBULATORY - NONE [facility] [place] Apr 19, 2020 11:00 AM AMBULATORY - NONE [facility] [place] Apr 26, 2020 10:45 AM AMBULATORY - NONE [facility] 15 Surgical Procedures: All associated to the encounter No Data Provided for This Section Lab Results: +/- 30 days of the encounter This section includes the Chemistry and Hematology Lab R esults on record with [place] for the patient. Radiology Reports and Pathology Report s are provided separately, in subsequent sections. Lab Results This section contains the Chemistry/Hematology Results anushka t were resulted 30 days before or 30 days after the date of the Encounter. Date/Time Source Result Type Result - Unit Interpretation Reference Range Comment Nov 10, 2019 11:39 AM [facility] [place] HEMOGLOBIN A1C Specimen Type: BLOOD No comment entered. HEMOGLOBIN A1C 10.6 % H 4.0-6.0 Nov 10, 2019 11:39 AM [facility] [place] BASIC METABOLIC PANEL Specimen Type: PLASMA No comment entered. *CREATININE 1.60 mg/dL H 0.7-1.3 UREA NITROGEN mg/dL 24 mg/dL 9-25 GLUCOSE 226 mg/dL H 72-99 SODIUM 140 mEq/L 136-145 POTASSIUM 3.9 mEq/L 3.5-5.0 CALCIUM (mg/dL) 9.3 mg/dL 8.4-10.4 CHLORIDE 101 mEq/L 98-107 CO2 29 mEq/L 22-31 EGFR 42.6 Nov 10, 2019 11:39 AM [facility] [email or web address] TESTOSTERONE ( ,[place]) Specimen Type: SERUM No comment entered. TESTOSTERONE (,[place]) 371 ng/dL 221-87 1 Nov 10, 2019 11:39 AM [facility] [email or web address] CBC & DIFF Specimen Type: BLOOD No [...] 0.3 % Nov 10, 2019 11:39 AM [facility] [email or web address] PROSTATIC SP ECIFIC ANTIGEN(TOTAL) Sp ecimen Type: [...] patient. The data comes from a ll [place] treatment facilities. It does not list Allergies/ADRs that were removed or entered in error. Some allergies/ADRs may be reported in t he Immunization section. Allergen Event Date Event Type Reaction(s) Severity Source LISINOPRIL Dec 01, 2017 Propensity to adverse reactions to drug (disorder) Renal impairment [facility] 15 METFORMIN Dec 01, 2017 Propensity to adverse reactions to drug (disorder) Renal impairment [facility] 15 Medications: VA dispensed (-15 months) and Non-VA Documented (Obtained Outside V A) Section Date Range: 1) prescriptions processed by a VA pharmacy in the last 15 m [facility], and 2) all medications recorded in the [place] medical record as "non-VA medic ations". Pharmacy terms refer to [place] pharmacy's work on prescriptions. VA patient s are advised to take their medications as instructed by their health care team. The data comes from all [place] treatment facilities. Glossary of Pharmacy Terms:Active = A prescription that can be filled at the local [place] pharmacy.Active: On Hold = An active prescription that will not be filled until pharmacy resolves the issue.Active: Susp = An active prescription that is not scheduled to be filled yet.Clinic Order = A medication received during a visit to a [place] clinic or emergency department (currently not available).Discontinued = A prescription stopped by a VA provider. It is no longer available to be filled. = A prescription which is too old to fill. This does not refer to the expiration date of the medication in the container. Non-VA = A medication that came from someplace other than a VA pharmacy. This may be a prescription from either the VA or other providers that was filled outside the VA. Or, it may be an over the [...] TIMES A DAY 400 Sep 12, 2020 [id number] Feb 29, 2020 YARABLACKWOOD Laron [facility] ACCU-CHEK ROSINA PLUS (GLUCOSE) TEST STRIP Discontinued USE 1 STRIP FOR TESTING FOUR TIMES A DAY 400 Sep 15, 2019 [id number] Jun 13, 2019 ELEUTERIO LARA [facility] ALCOHOL PREP PAD Discontinued USE 1 PAD ON SKIN FOUR TIMES A DAY 40 0 Apr 25, 2020 [id number] Nov 29, 2019 ELEUTERIO LIVINGSTON [facility] [place] ALCOHOL PREP PAD Discontinued USE 1 PAD ON SKIN FOUR TIMES A DAY 40 0 Sep 15, 2019 [id number] Apr 18, 2019 ELEUTERIO LIVINGSTON [facility] ALLOPURINOL 100MG TAB Active TAKE ONE TABLET BY MOUTH ONCE A DAY FOR GOUT. TAKE WITH PLENTY OF WATER 90 Sep 23, 2020 [id number] Mar 05, 2020 SILVINA CHAMBERS [facility] [place] ALLOPURINOL 100MG TAB Discontinued TAKE ONE TABLET BY MOUTH ONCE A DAY FOR GOUT. TAKE WITH PLENTY OF WATER 90 Dec 30, 2019 [id number] Sep 17, 2019 THOM SHARPE [facility] [place] ALOGLIPTIN 12.5MG TAB Active TAKE ONE TABLET BY MOUTH O NCE A DAY FOR DIABETES 90 Sep 12, 2020 [id number] Mar 04, 2020 ELEUTERIO LIV[place]ON [facility] [place] ALOGLIPTIN 12.5MG TAB Discontinued TAKE ONE TABLET BY MOUTH ONCE A DAY FOR DIABETES 90 Dec 22, 2019 [id number] Jun 18, 2019 ELEUTERIO LIVINGSTON [facility] [place] AMLODIPINE BESYLATE 10MG TAB Discontinued TAKE ONE TA BLET BY MOUTH EVERY MORNING FOR HEART/BLOOD PRESSURE 90 Jun 10, 2019 [id number] Feb 25, 2019 MONIKA HAMMER [facility] [place] AMLODIPINE BESYLATE 10MG TAB TAKE ONE TA BLET BY MOUTH EVERY MORNING FOR HEART/BLOOD PRESSURE 90 Apr 12, 2020 [id number] Feb 10, 2020 SILVINA CHAMBERS [facility] ASPIRIN 81MG TAB,CHEWABLE Non-VA CHEW ONE TABLET BY MOUTH ONCE A DAY Non-VA Documented by: MEGAN HAWK nted at: [facility] [place] [facility] ATORVASTATIN CA 20MG TAB Active TAKE ONE TABLET BY MOUTH ONCE A DAY FOR CHOLESTEROL. REPORT ANY UNEXPLAINED MUSCLE PAIN OR WEAKNESS TO YOUR DOCTOR. 90 Jan 02, 2021 [id number] March 24, 2020 [facility] [place] 15 ATORVASTATIN CA 40MG TAB Discontinued TAKE ONE-HALF T ABLET BY MOUTH AT BEDTIME FOR CHOLESTEROL. REPORT ANY UNEXPLAINED MUSCLE PAIN OR WEAKNESS TO YOUR DOCTOR. 45 Jul 15, 2020 [id number] Oct 14, 2019 THOM CHAMBERS [facility] [place] ATORVASTATIN CA 40MG TAB Discontinued TAKE ONE-HALF T ABLET BY MOUTH AT BEDTIME FOR CHOLESTEROL. REPORT ANY UNEXPLAINED MUSCLE PAIN OR WEAKNESS TO YOUR DOCTOR. 45 Oct 12, 2019 [id number] Jul 16, 2019 THOM CHAMBERS [facility] [place] CALCIUM CARBONATE 500MG TAB,CHEWABLE Non-VA CHEW ONE TABLET BY MOUTH PRN Non-VA Documented by: THOM CHAMBERSume nted at: [facility] CHLORTHALIDONE 25MG TAB Active TAKE ONE TABLET BY MOUTH ONCE A DAY 90 Jul 01, 2020 [id number] March 19, 2020 MONIKA HAMMER [facility] [place] CHLORTHALIDONE 25MG TAB Discontinued TAKE ONE TABLET BY MOUTH ONCE A DAY 90 Jun 16, 2019 [id number] Apr 12, 2019 MONIKA HAMMER [facility] [place] CHOLECALCIFEROL 1000UNT TAB Non-VA TAKE ONE TABLET BY MOUTH EVERY OTHER DAY Non-VA Docume nted by: MEGAN HAWK nted at: [facility] [place] [facility] CYANOCOBALAMIN 1000MCG/ML INJ Active INJECT 100 0 MCG (1 ML) INTRAMUSCULARLY EVERY MONTH FOR B12 SUPPLEMENTATION. 3 Nov 03, 2020 [id number] Apr 23, 2020 THOM CHAMBERS [facility] [place] CYANOCOBALAMIN 1000MCG/ML INJ Discontinued INJECT 100 0 MCG (1 ML) INTRAMUSCULARLY EVERY MONTH FOR B12 SUPPLEMENTATION. 3 Nov 17 0 [id number] Aug 07, 2019 [facility] [place] DIPHENHYDRAMINE HCL 25MG CAP Non-VA TAKE 1 CAPSULE BY MOUTH PRN Non-VA Documented by: THOM CHAMBERS Docume nted at: [facility] DOCUSATE NA 100MG CAP No n-VA TAKE 2 CAPSULES BY MOUTH ONCE A DAY Non-VA Documented by: THOM CHAMBERS Docume nted at: [facility] FISH OIL 1000MG (500MG DHA/EPA) CAP,ORAL Non-VA TAKE 1 CAPSULE BY MOUTH ONCE A DAY Non-VA Documented by: MEGAN HAWK Docume nted at: [facility] [place] [facility] GABAPENTIN 100MG CAP Active TAKE 1 CAPSULE BY M OUTH EVERY MORNING AND TAKE 1 CAPSULE BY MOUTH AT NOON AND TAKE 2 CAPSULES BY MOUTH AT BEDTIME 360 Jul 06, 2020 [id number] March 31, 2020 ELEUTERIO LIV[place]STON [facility] [place] GLUCAGON 1MG/GABRIELLA INJ,EMERGENCY KIT INJEC T 1MG SUBCUTANEOUSLY NEEDED FOR SEVERE HYPOGLYCEMIA 1 Nov 30, 2019 [id number] Nov 03, 2019 REYES THOM [facility] [place] INSULIN,ASPART,HUMAN 100U/ML,NOVOLOG,FLEXPEN,3ML Active: On Hold INJECT 20 UNITS SUBCUTANEOUSLY BEFORE BREAKFAST AND INJECT 20 UNITS BEFORE LUNCH AND INJECT 26 UNITS BEFORE SUPPER AND INJECT 24 UNITS SNACK FOR BLOOD SUGAR CONTROL. ADMINISTER 10 MINUTES BEFORE FOOD DIRECTED. REFRIGERATE UN-OPENED PENS. DISCARD CARTRIDGE 28 DAYS AFTER OPENING. PLUS CORRECTION Mar 01, 2021 [id number] ELEUTERIO LIVINGSTON [facility] [place] [facility] INSULIN,ASPART,HUMAN 100U/ML,NOVOLOG,FLEXPEN,3ML Discontinue d INJECT 20 UNITS SUBCUTANEOUSLY BEFORE BREAKFAST AND INJECT 20 UNITS BEFORE LUNCH AND INJECT 24 UNITS BEFORE SUPPER AND INJECT 24 UNITS SNACK FOR BLOOD SUGAR CONTROL. ADMINISTER 10 MINUTES BEFORE FOOD DIRECTED. REFRIGERATE UN-OPENED PENS. DISCARD CARTRIDGE 28 DAYS AFTER OPENING. PLUS CORRECTION 30 Jan 26, 2021 [id number] Jan 28, 2020 ELEUTERIO LIVINGSTON [facility] [place] [facility] INSULIN,ASPART,HUMAN 100U/ML,NOVOLOG,FLEXPEN,3ML Discontinue d INJECT 20 UNITS SUBCUTANEOUSLY BEFORE MEALS FOR BLOOD SUGAR CONTROL. ADMINISTER 10 MINUTES BEFORE FOOD DIRECTED. REFRIGERATE UN-OPENED PENS. DISCARD CARTRIDGE 28 DAYS AFTER OPENING. PLUS CORRECTION FOR BLOOD SUGAR CONTROL. ADMINISTER 10 MINUTES BEFORE FOOD DIRECTED. REFRIGERATE UN-OPENED PENS. DISCARD CARTRIDGE 28 DAYS AFTER OPENING. PLUS CORRECTION 30 Nov 16, 2020 [id number] Nov 16 20 ELEUTERIO LIVINGSTON [facility] [place] INSULIN,ASPART,HUMAN 100U/ML,NOVOLOG,FLEXPEN,3ML Discontinue d INJECT 15 UNITS SUBCUTANEOUSLY EVERY MORNING BEFORE MEAL AND INJECT 15 UNITS WITH LUNCH AND INJECT 15 UNITS WITH SUPPER AND INJECT 20 UNITS WITH SNACK FOR BLOOD SUGAR CONTROL. ADMINISTER 10 MINUTES BEFORE FOOD DIRECTED. REFRIGERATE UN-OPENED PENS. DISCARD CARTRIDGE 28 DAYS AFTER OPENING. Dec 22, 2019 5 [id number] Oct 12, 2019 ELEUTERIO LIVINGSTON [facility] [place] INSULIN,GLARGINE,HUMAN 100 UNIT/ML INJ,SOLOSTAR,3ML Active INJECT 50 UNITS SUBCUTANEOUSLY EVERY MORNING FOR BLOOD SUGAR CONTROL. ADMINISTER AT SAME TIME EACH DAY DIRECTED. DISCARD ANY OPEN CARTRIDGE AFTER 28 DAYS. Sep 23, 2020 [id number] Jan 28, 2020 ELEUTERIO LIVINGSTON [facility] [place] [facility] INSULIN,GLARGINE,HUMAN 100 UNIT/ML INJ,SOLOSTAR,3ML Disconti nued INJECT 45 UNITS SUBCUTANEOUSLY EVERY MORNING FOR BLOOD SUGAR CONTROL. ADMINISTER AT SAME TIME EACH DAY DIRECTED. DISCARD ANY OPEN CARTRIDGE AFTER 28 DAYS. Oct 23, 2019 [id number] Aug 30, 2019 ELEUTERIO LIVINGSTON [facility] [place] [facility] LACTOBACILLUS ACIDOPHILUS TAB,CHEWABLE Non-VA CHEW ONE TABLET BY MOUTH ONCE A DAY Non-VA Documented by: MEGAN HAWKed at: [facility] [place] LANCET,SOFTCLIX Active USE LANCET 5 TIME S A DAY FOR TESTING BLOOD GLUCOSE DIRECTED 500 Dec 28, 2020 [id number] March 19, 2020 ELEUTERIO LIVINGSTON [facility] [place] LANCET,SOFTCLIX Discontinued USE LANCET 5 TIME S A DAY FOR TESTING BLOOD GLUCOSE DIRECTED 500 Jan 11, 2020 [id number] Sep 29, 2019 ELEUTERIO PATEL [facility] [place] MAGNESIUM OXIDE 400MG TAB Non-VA TAKE ONE TABLET BY MOUTH ONCE A DAY Non-VA Documented by: MEGAN HAWK nted at: [facility] [place] [facility] METOPROLOL SUCCINATE 200MG TAB,SA TAKE O NE-HALF TABLET BY MOUTH EVERY EVENING FOR HEART/BLOOD PRESSURE. SWALLOW WHOLE, DO NOT CRUSH OR CHEW (TABLETS MAY BE CUT IN HALF). 45 March 18, 2020 [id number] Dec 28, 2019 STANISLAV HAMMER [facility] NEEDLE 22G 1.5IN USE NEEDLE FOR EVERY MONTH 1 Nov 12, 2019 [id number] Feb 07, 2019 ADELAIDA CLIFFORD [facility] [place] NEEDLE,PEN 31G,5MM Discontinued USE NEEDLE SUBCUTANE OUSLY 5 TIMES A DAY - THIS IS A SINGLE USE NEEDLE AND SHOULD BE DISCARDED AFTER USE 500 Dec 21, 2019 [id number] Sep 28, 2019 ELEUTERIO LIVINGSTON [facility] [place] [facility] POTASSIUM CHLORIDE 10MEQ TAB,SA Active TAKE TWO TABLETS BY MOUTH TWO TIMES A DAY FOR POTASSIUM SUPPLEMENTATIONTAKE WITH FOOD 360 Dec 12, 2020 [id number] Mar 02, 2020 [facility] [place] 15 POTASSIUM CHLORIDE 10MEQ TAB,SA Discontinued TAKE ONE TABLET BY MOUTH THREE TIMES A DAY WITH MEALS FOR POTASSIUM SUPPLEMENTATIONTAKE WITH FOOD 180 March 16, 2020 [id number] Nov 29, 2019 ELEUTERIO LIVINGSTON [facility] [place] POTASSIUM CHLORIDE 10MEQ TAB,SA Discontinued TAKE ONE TABLET BY MOUTH THREE TIMES A DAY WITH MEALS FOR POTASSIUM SUPPLEMENTATIONTAKE WITH FOOD 180 May 26, 2019 [id number] Jan 24, 2019 [facility] [place] SYRINGE 2.5-3ML/NDL 25G 1IN Active USE 1 SYRINGE EVERY MONTH 3 Feb 21, 2021 [id number] March 20, 2020 [facility] SYRINGE 2.5-3ML/NDL 25G 1IN Discontinued USE 1 SYRINGE EVERY Thu 3 March 18, 2020 [id number] Dec 21, 2019 [facility] TESTOSTERONE CYPIONATE 200MG/ML INJ,1ML (IN OIL) Active INJECT 200 MG (1 ML) INTRAMUSCULARLY EVERY MONTH FOR HORMONE REPLACEMENT 1 May 18, 2020 [id number] April 06, 2020 ADELAIDA CLIFFORD [facility] [place] TESTOSTERONE CYPIONATE 200MG/ML INJ,1ML (IN OIL) Discontinue d INJECT 200 MG (1 ML) INTRAMUSCULARLY EVERY MONTH FOR HORMONE REPLACEMENT March 25, 2020 [id number] Oct 25, 2019 ADELAIDA CLIFFORD [facility] [place] TESTOSTERONE CYPIONATE 200MG/ML INJ,1ML (IN OIL) Discontinue d INJECT 200 MG (1 ML) INTRAMUSCULARLY EVERY MONTH FOR HORMONE REPLACEMENT Nov 06, 2019 [id number] Sep 25, 2019 ADELAIDA CLIFFORD [facility] [place] TESTOSTERONE CYPIONATE 200MG/ML INJ,1ML (IN OIL) Discontinue d INJECT 200 MG (1 ML) INTRAMUSCULARLY EVERY MONTH FOR HORMONE REPLACEMENT May 14, 2019 [id number] Apr 10, 2019 ADELAIDA CLIFFORD [facility] [place] TRAMADOL HCL 50MG TAB Active TAKE 1 TO 2 TABLET S BY MOUTH EVERY 6 HOURS NEEDED FOR PAIN 180 Jul 21, 2020 [id number] March 30[facility] 2020 [facility] TRAMADOL HCL 50MG TAB Discontinued TAKE 1 TO 2 TABLET S BY MOUTH EVERY 6 HOURS NEEDED FOR PAIN 180 Jun 06, 2020 [id number] Jan 11, 2020 [facility] TRAMADOL HCL 50MG TAB Discontinued TAKE 1 TO 2 TABLET S BY MOUTH EVERY 6 HOURS NEEDED FOR PAIN 180 Jun 06, 2020 [id number] Dec 06, 2019 NELLA GROVE [facility] 15 TRAMADOL HCL 50MG TAB Discontinued TAKE 1 TO 2 TABLET S BY MOUTH EVERY 6 HOURS NEEDED FOR PAIN 180 Dec 14, 2019 [id number] Nov 15, 2019 DANTE VALVERDE [facility] [place] TRAMADOL HCL 50MG TAB Discontinued TAKE 1 TO 2 TABLET S BY MOUTH EVERY 6 HOURS NEEDED FOR PAIN 180 Jul 06, 2019 [id number] May 26, 2019 NELLA GROVE [facility] [place] TRIAMCINOLONE ACETONIDE 0.5% CREAM,TOP Active A PPLY SPARINGLY TO AFFECTED AREA ONCE A DAY NEEDED FOR RASH 45 Jul 15, 2020 [id number] April 01 0 THOM CHAMBERS [facility] [place] TRIAMCINOLONE ACETONIDE 0.5% CREAM,TOP Discontinued A PPLY SPARINGLY TO AFFECTED AREA ONCE A DAY NEEDED FOR RASH 45 Oct 12, 2019 [id number] Jul THOM CHAMBERS [facility] [place] Problems (Conditions): All historical and current Section Date Range: From patient's date of to the date document was create d. This section includes a list of Problems (Conditions) [place] to [place] for [place]. It includes both active and inacti ve problems (conditions). The data comes from all [place] treatment facilities. Problem Status Problem Code Date of Onset Date of Resolution Comm ent(s) Provider Source Basal cell carcinoma of scalp Active [id number] THOM CHAMBERS [facility] [place] Chronic back pain Active [id number] TERRIE CHAMBERS [facility] [place] Chronic kidney disease stage 3 Active [id number] THOM CHAMBERS [facility] [place] Constipation Active 39614361 THOM CHAMBERS [facility] [place] Diabetes mellitus Active 37665542 THOM CHAMBERS [facility] [place] Diabetic neuropathy Active [id number] Neha CHABMERS [facility] [place] Essential hypertension Active 95317999 THOM CHAMBERS [facility] [place] Hyperlipidemia Active 92327120 THOM CHAMBERS [facility] [place] Hypogonadism Active 85447518 THOM CHAMBERS [facility] [place] Sleep apnea Active 79561385 THOM CHAMBERS [facility] [place] Radiology Reports: +/- 30 days of the encounter No Data Provided for This Section Pathology Reports: +/- 30 days of the encounter No Data Provided for This Section Encounter Notes: All associated encounter notes This section contains the clinical notes associated to the Encounter. Date/Time Encounter Note(s) Provider Source Oct 31, 2019 10:59 AM PHARMACY NOTE: LOCAL TITLE: EK-PHARMACY REFILL STANDARD TITLE: PHARMACY NOTE DATE OF NOTE: OCT 31, 2019@10:59 ENTRY DATE: OCT 31, 2019@11:00:22 AUTHOR: JO FENG COSIGNER: URGENCY: STATUS: COMPLETED Telephone renewal request was received for: <<<<<MAIL>>>>>> Active and Recently Outpatient Medications (including Supplies): Issue Date Status Last Fill Outpatient Medications Refills Expiration [id number] GLUCAGON 1MG/GABRIELLA INJ EMERGE NCY KIT E 0 12-20-18 12-22-18 QTY: 1 SIG: INJECT 1MG SUBCUTANEOUSLY DIRECTED BY PROVIDER FOR SEVERE HYPOGLYCEMIA FUTURE APPOINTMENTS: NOV 03, 2019@11:30 Clinic: TO-CLIN LAB-NONFAST FT SC N/C NOV 16, 2019@13:00 Clinic: TO-PHARM PACT 5 NOV 16, 2019@14:00 Clinic: [id number] DARRIN NOV 17, 2019@10:00 Clinic: TO-MICHAELA WELLER PACT NURSE JAN 12, 2020@14:00 Clinic: SATURNINO WELLER PACT VACCINE APRIL 05, 2020@08:00 Clinic: TO-CLIN LAB FAST FT JANEE N/C APR 12, 2020@09:00 Clinic: SATURNINO WELLER-PACT TEAM 1 PCP FUTURE LISETH REMINDERS: Forwarding renewal request to THOM CHAMBERS, for the patient. If approved, please renew prescription. If you do not wish to renew this prescription please document denial as an addendum to this note. If ordered, this medication should be processed for mail out. /noa/ JO FENG Signed: 10/31/2019 11:01 Receipt Acknowledged By: * AWAITING SIGNATURE * THOM CHAMBERS [facility]
--- OUTSIDE RECORDS SUMMARY | 2020-04-18 09:24 | XMS REPORT ---
Author Author Department of 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 Role Phone THOM CHAMBERS PCP Unavailable [...] to Policy Woodard [facility] ([facility]) MEDICARE ADVANTAGE MCR ([facility]) Nov 09, 2017 [id number] [phone] SIMI COVARRUBIAS PATIENT [facility] ([facility]) MEDICARE ADVANTAGE MCR ([facility]) Nov 09, 2017 [id number] [phone] SIMI COVARRUBIAS PATIENT [facility]ETNA [facility] ([facility]) MEDICARE ADVANTAGE MCR ([facility]) Nov 09, [id number] [id number] SIMI COVARRUBIAS PATIENT Selected Encounter This section includes the information on record at [facility] for the Encounter. Date/Time Encounter Type Encounter Description Reason Provider Source Nov 29, 2019 02:15 PM Outpatient Encounter ADMIN PAT ACTIVTIES (MAS[place] NCT) [facility] [place] [facility] IHE Encounter Template Text not used by VA Assessments - Encounter Diagnoses No Data Provided for This Section Plan of Treatment: Future Appointments (+ 6 months) and Future Tests (+/- 45 day s) The Plan of Treatment section includes future care activities for the patient fr om all [place] treatment facilities. This section includes future appointments and fu ture orders which are active, pending or scheduled. Future Appointments This section includes appointments that were scheduled t o occur 6 months from the date of the Encounter, up to a maximum of 20 appointme nts. The data comes from all [place] treatment [facility]. Appointment Date/Time Appointment Type Appointment Facili ty Name Dec 01, 2019 11:30 AM AMBULATORY - MEDICINE [facility] Dec 14, 2019 03:00 PM AMBULATORY - NONE [facility] Dec 15, 2019 01:00 PM AMBULATORY - NONE [facility] Jan 12, 2020 10:00 AM AMBULATORY - NONE [facility] Jan 26, 2020 03:00 PM AMBULATORY - NONE [facility] Feb 29, 2020 02:30 PM AMBULATORY - NONE [facility] March 20, 2020 08:00 AM AMBULATORY - MEDICINE [place] March 28, 2020 11:30 AM AMBULATORY - NONE [facility] Apr 19, 2020 11:00 AM AMBULATORY - NONE [facility] Apr 26, 2020 10:45 AM AMBULATORY - NONE [facility] Surgical Procedures: All associated to the encounter No Data Provided for This Section Lab Results: +/- 30 days of the encounter This section includes the Chemistry and Hematology Lab R esults on record with [place] for the patient. Radiology Reports and Pathology Report s are provided separately, in subsequent sections. Lab Results This section contains the Chemistry/Hematology Results anushka t were resulted 30 days before or 30 days after the date of the Encounter. Date/Time Source Result Type Result - Unit Interpretation Reference Range Comment Dec 01, 2019 11:09 AM [facility] CBC & DIFF Specimen Type: BLOOD No [...] 0.5 % Dec 01, 2019 11:09 AM [facility] RENAL FUNCTION PANEL Specimen Type: PLASMA No comment entered. *CREATININE 1.48 mg/dL H 0.7-1.3 UREA NITROGEN mg/dL 19 mg/dL 9-25 GLUCOSE 99 mg/dL 72-99 SODIUM 143 mEq/L 136-145 POTASSIUM 3.4 mEq/L L 3.5-5.0 CALCIUM (mg/dL) 10.0 mg/dL 8.4-10.4 PHOSPHORUS INORGANIC 2.6 mg/dL 2.3-4.7 ALBUMIN 4.5 g/dl 3.4-5.0 CHLORIDE 101 mEq/L 98-107 CO2 34 mEq/L H 22-31 EGFR 46.5 Dec 01, 2019 11:09 AM [facility] URINALYSIS Specimen Type: URINE No comment entered. [...] RBC/HPF 0-2 Dec 01, 2019 11:09 AM [facility] MAGNESIUM (mg/dL) Specimen Type: PLASMA No comment entered. MAGNESIUM (mg/dL) 2.4 mg/dl 1.6-2.6 Dec 01, 2019 11:09 AM [facility] HEPATIC FUNCTION PANE L Specimen Type: PLASMA No comment entered. PROTEIN,TOTAL 7.2 g/dL 6.0-8.6 ALBUMIN 4.5 g/dl 3.4-5.0 TOTAL BILIRUBIN 0.7 mg/dL 0.2-1.2 DIRECT BILIRUBIN 0.30 mg/dL 0-0.5 ASPARTATE TRANSAMINASE 29 U/L 5-34 ALANINE AMINOTRANSFERASE 20 U/L 8-40 ALKALINE PHOSPHATASE 98 U/L 40-150 Dec 01, 2019 11:09 AM [facility] MICROALBUMIN (CO,EK) Specimen Type: URINE No comment entered. *MICROALBUMIN(CONC) 116.8 mg/dL - *MICROALBUMIN(SPOT) 651.8 mcg/mg cr HH 0-29 *CREATININE mg/dL 179.2 mg/dl Not Avail. Dec 01, 2019 11:09 AM [facility] COMPREHENSIVE METABOL IC PANEL Specimen Type: PLASMA [...] EGFR 46.5 Dec 01, 2019 11:09 AM [facility] TRAMADOL SCRN W/REFLE X,URINE Specimen Type: URINE Comment: normalcy status - Abnormal Tramadol Screen This test was performed using a forensic kit that is intended for the qualitative and semi- quantitative determination of Tramadol in human urine and has not been cleared or approved by the FDA for diagnostic purposes. The analytical performance characteristics of this test have been determined by [employer] [facility]. This test should not be used for diagnosis without confirmation by other, more specific, confirmatory analytical methodologies. Test performed by [employer] [address] [place] [address] [employer] Chief Inspector: Baron Domingo M.D.,Ph.D. Test Reported by [facility], [employer] [facility], [address] [place], [place] Lawrence Mckeon M.D., Ph.D., Director of Laboratories , CLIA [id number] O-Desmethyltramadol This test was developed and its analytical performance characteristics have been determined by [employer] [facility]. It has not been cleared or approved by the US Food and Drug Administration. This assay has been validated pursuant to the CLIA regulations and is used for clinical purposes. *TRAMADOL SCREEN, URINE Positive Negati ve *TRAMADOL QUANT, URINE > 5000 ng/mL H < 10 0 *DESMETHYLTRAMADOL, URINE >5000 ng/mL H < 100 Dec 01, 2019 11:09 AM [facility] DRUGS OF ABUSE SCREEN Specimen Type: URINE No comment entered. AMPHETAMINE NEG Negative BARBITURATES NEG Negative BENZODIAZEPINES NEG Negative CANNABINOIDS NEG Negative COCAINE NEG Negative OPIATES NEG Negative PHENCYCLIDINE(PCP) NEG Negative *CREATININE,DRUG SCR 177.22 mg/dL METHADONE(UDS) NEG Negative OXYCODONE (URINE) NEG Negative ALCOHOL-URINE,RANDOM (SOSA,WI,EK) NEG mg/dL <10 Dec 01, 2019 11:09 AM [facility] URINALYSIS Specimen Type: URINE No comment entered. [...] RBC/HPF 0-2 Nov 10, 2019 11:39 AM [facility] HEMOGLOBIN A1C Specimen Type: BLOOD No comment entered. HEMOGLOBIN A1C 10.6 % H 4.0-6.0 Nov 10, 2019 11:39 AM [facility] BASIC METABOLIC PANEL Specimen Type: PLASMA No comment entered. *CREATININE 1.60 mg/dL H 0.7-1.3 UREA NITROGEN mg/dL 24 mg/dL 9-25 GLUCOSE 226 mg/dL H 72-99 SODIUM 140 mEq/L 136-145 POTASSIUM 3.9 mEq/L 3.5-5.0 CALCIUM (mg/dL) 9.3 mg/dL 8.4-10.4 CHLORIDE 101 mEq/L 98-107 CO2 29 mEq/L 22-31 EGFR 42.6 Nov 10, 2019 11:39 AM [facility] TESTOSTERONE (SOSA ,WI,EK) Specimen Type: SERUM No comment entered. TESTOSTERONE (SOSA,WI,EK) 371 ng/dL 221-87 1 Nov 10, 2019 11:39 AM [facility] CBC & DIFF Specimen Type: BLOOD No [...] 0.3 % Nov 10, 2019 11:39 AM [facility] [place] [facility] PROSTATIC SP [...] patient. The data comes from a ll [place] treatment facilities. It does not list Allergies/ADRs that were removed or entered in error. Some allergies/ADRs may be reported in t he Immunization section. Allergen Event Date Event Type Reaction(s) Severity Source LISINOPRIL Dec 01, 2017 Propensity to adverse reactions to drug (disorder) Renal impairment [facility] [place] 15 METFORMIN Dec 01, 2017 Propensity to adverse reactions to drug (disorder) Renal impairment [facility] 15 Medications: VA dispensed (-15 months) and Non-VA Documented (Obtained Outside A) Section Date Range: 1) prescriptions processed by a VA pharmacy in the last [address] [facility], and 2) all medications recorded in the [place] medical record as "non-VA medic ations". Pharmacy terms refer to [place] pharmacy's work on prescriptions. VA patient s are advised to take their medications as instructed by their health care team. The data comes from all [place] treatment facilities. Glossary of Pharmacy Terms:Active = A prescription that can be filled at the local [place] pharmacy.Active: On Hold = An active prescription that will not be filled until pharmacy resolves the issue.Active: Susp = An active prescription that is not scheduled to be filled yet.Clinic Order = A medication received during a visit to a [place] clinic or emergency department (currently not available).Discontinued = A prescription stopped by a [place] provider. It is no longer available to be filled. = A prescription which is too old to fill. This does not refer to the expiration date of the medication in the container. Non-VA = A medication that came from someplace other than a VA pharmacy. This may be a prescription from either the [place] or other providers that was filled outside the [place]. Or, it may be an over the [...] TIMES A DAY 400 Sep 12, 2020 [id number] Feb 29, 2020 YARAELEUTERIO Laron [facility] ACCU-CHEK ROSINA PLUS (GLUCOSE) TEST STRIP Discontinued USE 1 STRIP FOR TESTING FOUR TIMES A DAY 400 Sep 15, 2019 [id number] Jun 13, 2019 BALTRUSAELEUTERIO MCNAMARA [facility] ALCOHOL PREP PAD Discontinued USE 1 PAD ON SKIN FOUR TIMES A DAY 40 0 Apr 25, 2020 [id number] Nov 29, 2019 [facility]LE[facility]ERIO [facility] [place] [facility] ALCOHOL PREP PAD Discontinued USE 1 PAD ON SKIN FOUR TIMES A DAY 40 0 Sep 15, 2019 [id number] Apr 18, 2019 ELEUTERIO [facility] ALLOPURINOL 100MG TAB Active TAKE ONE TABLET BY MOUTH ONCE A DAY FOR GOUT. TAKE WITH PLENTY OF WATER 90 Sep 23, 2020 [id number] Mar 05, 2020 SILVINA CHAMBERS [facility] ALLOPURINOL 100MG TAB Discontinued TAKE ONE TABLET BY MOUTH ONCE A DAY FOR GOUT. TAKE WITH PLENTY OF WATER 90 Dec 30, 2019 [id number] Sep 17, 2019 THOM SHARPE [facility] ALOGLIPTIN 12.5MG TAB Active TAKE ONE TABLET BY MOUTH O NCE A DAY FOR DIABETES 90 Sep 12, 2020 [id number] Mar 04, 2020 [facility]IO [facility] [place] [facility] ALOGLIPTIN 12.5MG TAB Discontinued TAKE ONE TABLET BY MOUTH ONCE A DAY FOR DIABETES 90 Dec 22, 2019 [id number] Jun 18, 2019 ELEUTERIO [facility] AMLODIPINE BESYLATE 10MG TAB Discontinued TAKE ONE TA BLET BY MOUTH EVERY MORNING FOR HEART/BLOOD PRESSURE 90 Jun 10, 2019 [id number] Feb 25, 2019 MONIKA HAMMER [facility] AMLODIPINE BESYLATE 10MG TAB TAKE ONE TA BLET BY MOUTH EVERY MORNING FOR HEART/BLOOD PRESSURE 90 Apr 12, 2020 [id number] Feb 10, 2020 SILVINA CHAMBERS [facility] ASPIRIN 81MG TAB,CHEWABLE Non-VA CHEW ONE TABLET BY MOUTH ONCE A DAY Non-VA Documented by: MEGAN HAWK nted at: [facility] ATORVASTATIN CA 20MG TAB Active TAKE ONE TABLET BY MOUTH ONCE A DAY FOR CHOLESTEROL. REPORT ANY UNEXPLAINED MUSCLE PAIN OR WEAKNESS TO YOUR DOCTOR. 90 Jan 02, 2021 [id number] March 24, 2020 NELLA GROVE [facility] [place] 15 ATORVASTATIN CA 40MG TAB Discontinued TAKE ONE-HALF T ABLET BY MOUTH AT BEDTIME FOR CHOLESTEROL. REPORT ANY UNEXPLAINED MUSCLE PAIN OR WEAKNESS TO YOUR DOCTOR. 45 Jul 15, 2020 [id number] Oct 14, 2019 THOM CHAMBERS [facility] ATORVASTATIN CA 40MG TAB Discontinued TAKE ONE-HALF T ABLET BY MOUTH AT BEDTIME FOR CHOLESTEROL. REPORT ANY UNEXPLAINED MUSCLE PAIN OR WEAKNESS TO YOUR DOCTOR. 45 Oct 12, 2019 [id number] Jul 16, 2019 THOM CHAMBERS [facility] CALCIUM CARBONATE 500MG TAB,CHEWABLE Non-VA CHEW ONE TABLET BY MOUTH PRN Non-VA Documented by: THOM CHAMBERSume nted at: [facility] CHLORTHALIDONE 25MG TAB Active TAKE ONE TABLET BY MOUTH ONCE A DAY 90 Jul 01, 2020 [id number] March 19, 2020 MONIKA HAMMER [facility] CHLORTHALIDONE 25MG TAB Discontinued TAKE ONE TABLET BY MOUTH ONCE A DAY 90 Jun 16, 2019 [id number] Apr 12, 2019 MONIKA HAMMER [facility] CHOLECALCIFEROL 1000UNT TAB Non-VA TAKE ONE TABLET BY MOUTH EVERY OTHER DAY Non-VA Docume nted by: MEGAN HAWK nted at: [facility] CYANOCOBALAMIN 1000MCG/ML INJ Active INJECT 100 0 MCG (1 ML) INTRAMUSCULARLY EVERY MONTH FOR B12 SUPPLEMENTATION. 3 Nov 03, 2020 [id number] Apr 23, 2020 [facility] [place] [facility] CYANOCOBALAMIN 1000MCG/ML INJ Discontinued INJECT 100 0 MCG (1 ML) INTRAMUSCULARLY EVERY MONTH FOR B12 SUPPLEMENTATION. 3 Nov 17 0 [id number] Aug 07, 2019 THOM CHAMBERS [facility] DIPHENHYDRAMINE HCL 25MG CAP Non-VA TAKE 1 CAPSULE BY MOUTH PRN Non-VA Documented by: THOM CHAMBERS Docume nted at: [facility] DOCUSATE NA 100MG CAP No n-VA TAKE 2 CAPSULES BY MOUTH ONCE A DAY Non-VA Documented by: THOM CHAMBERS Docume nted at: [facility] FISH OIL 1000MG (500MG DHA/EPA) CAP,ORAL Non-VA TAKE 1 CAPSULE BY MOUTH ONCE A DAY Non-VA Documented by: MEGAN HAWK Docume nted at: [facility] GABAPENTIN 100MG CAP Active TAKE 1 CAPSULE BY M OUTH EVERY MORNING AND TAKE 1 CAPSULE BY MOUTH AT NOON AND TAKE 2 CAPSULES BY MOUTH AT BEDTIME 360 Jul 06, 2020 [id number] March 31, 2020 [facility]ERIO [facility] [place] [facility] GLUCAGON 1MG/GABRIELLA INJ,EMERGENCY KIT INJEC T 1MG SUBCUTANEOUSLY NEEDED FOR SEVERE HYPOGLYCEMIA 1 Nov 30, 2019 [id number] Nov 03, 2019 [facility] [place] [facility] INSULIN,ASPART,HUMAN 100U/ML,NOVOLOG,FLEXPEN,3ML Active: On Hold INJECT 20 UNITS SUBCUTANEOUSLY BEFORE BREAKFAST AND INJECT 20 UNITS BEFORE LUNCH AND INJECT 26 UNITS BEFORE SUPPER AND INJECT 24 UNITS SNACK FOR BLOOD SUGAR CONTROL. ADMINISTER 10 MINUTES BEFORE FOOD DIRECTED. REFRIGERATE UN-OPENED PENS. DISCARD CARTRIDGE 28 DAYS AFTER OPENING. PLUS CORRECTION Mar 01, 2021 [id number] [facility]IO [facility] INSULIN,ASPART,HUMAN 100U/ML,NOVOLOG,FLEXPEN,3ML Discontinue d INJECT 20 UNITS SUBCUTANEOUSLY BEFORE BREAKFAST AND INJECT 20 UNITS BEFORE LUNCH AND INJECT 24 UNITS BEFORE SUPPER AND INJECT 24 UNITS SNACK FOR BLOOD SUGAR CONTROL. ADMINISTER 10 MINUTES BEFORE FOOD DIRECTED. REFRIGERATE UN-OPENED PENS. DISCARD CARTRIDGE 28 DAYS AFTER OPENING. PLUS CORRECTION 30 Jan 26, 2021 [id number] Jan 28, 2020 ELEUTERIO [facility] INSULIN,ASPART,HUMAN 100U/ML,NOVOLOG,FLEXPEN,3ML Discontinue d INJECT 20 UNITS SUBCUTANEOUSLY BEFORE MEALS FOR BLOOD SUGAR CONTROL. ADMINISTER 10 MINUTES BEFORE FOOD DIRECTED. REFRIGERATE UN-OPENED PENS. DISCARD CARTRIDGE 28 DAYS AFTER OPENING. PLUS CORRECTION FOR BLOOD SUGAR CONTROL. ADMINISTER 10 MINUTES BEFORE FOOD DIRECTED. REFRIGERATE UN-OPENED PENS. DISCARD CARTRIDGE 28 DAYS AFTER OPENING. PLUS CORRECTION 30 Nov 16, 2020 [id number] Nov 16 ELEUTERIO [facility] INSULIN,ASPART,HUMAN 100U/ML,NOVOLOG,FLEXPEN,3ML Discontinue d INJECT 15 UNITS SUBCUTANEOUSLY EVERY MORNING BEFORE MEAL AND INJECT 15 UNITS WITH LUNCH AND INJECT 15 UNITS WITH SUPPER AND INJECT 20 UNITS WITH SNACK FOR BLOOD SUGAR CONTROL. ADMINISTER 10 MINUTES BEFORE FOOD DIRECTED. REFRIGERATE UN-OPENED PENS. DISCARD CARTRIDGE 28 DAYS AFTER OPENING. Dec 22, 2019 [id number] Oct 12, 2019 ELEUTERIO [facility] INSULIN,GLARGINE,HUMAN 100 UNIT/ML INJ,SOLOSTAR,3ML Active INJECT 50 UNITS SUBCUTANEOUSLY EVERY MORNING FOR BLOOD SUGAR CONTROL. ADMINISTER AT SAME TIME EACH DAY DIRECTED. DISCARD ANY OPEN CARTRIDGE AFTER 28 DAYS. Sep 23, 2020 [id number] Jan 28, 2020 [facility]LEUT[facility]IO [facility] INSULIN,GLARGINE,HUMAN 100 UNIT/ML INJ,SOLOSTAR,3ML Disconti nued INJECT 45 UNITS SUBCUTANEOUSLY EVERY MORNING FOR BLOOD SUGAR CONTROL. ADMINISTER AT SAME TIME EACH DAY DIRECTED. DISCARD ANY OPEN CARTRIDGE AFTER 28 DAYS. Oct 23, 2019 [id number] Aug 30, 2019 ELEUTREIO [facility] LACTOBACILLUS ACIDOPHILUS TAB,CHEWABLE Non-VA CHEW ONE TABLET BY MOUTH ONCE A DAY Non-VA Documented by: MEGAN HAWK nted at: [facility] LANCET,SOFTCLIX Active USE LANCET 5 TIME S A DAY FOR TESTING BLOOD GLUCOSE DIRECTED 500 Dec 28, 2020 [id number] March 19, 2020 ELEUTERIO [facility] LANCET,SOFTCLIX Discontinued USE LANCET 5 TIME S A DAY FOR TESTING BLOOD GLUCOSE DIRECTED 500 Jan 11, 2020 [id number] Sep 29, 2019 YAYA KAYLAISELEUTERIO [facility] MAGNESIUM OXIDE 400MG TAB Non-VA TAKE ONE TABLET BY MOUTH ONCE A DAY Non-VA Documented by: MEGAN HAWK nted at: [facility] METOPROLOL SUCCINATE 200MG TAB,SA TAKE O NE-HALF TABLET BY MOUTH EVERY EVENING FOR HEART/BLOOD PRESSURE. SWALLOW WHOLE, DO NOT CRUSH OR CHEW (TABLETS MAY BE CUT IN HALF). 45 March 18, 2020 [id number] Dec 28, 2019 STANISLAV HAMMER [facility] NEEDLE 22G 1.5IN USE NEEDLE FOR EVERY MONTH 1 Nov 12, 2019 [id number] Feb 07, 2019 ADELAIDA CLIFFORD [facility] NEEDLE,PEN 31G,5MM Discontinued USE NEEDLE SUBCUTANE OUSLY 5 TIMES A DAY - THIS IS A SINGLE USE NEEDLE AND SHOULD BE DISCARDED AFTER USE 500 Dec 21, 2019 [id number] Sep 28, 2019 [facility]IO [facility] POTASSIUM CHLORIDE 10MEQ TAB,SA Active TAKE TWO TABLETS BY MOUTH TWO TIMES A DAY FOR POTASSIUM SUPPLEMENTATIONTAKE WITH FOOD 360 Dec 12, 2020 [id number] Mar 02, 2020 [facility] [place] [facility] POTASSIUM CHLORIDE 10MEQ TAB,SA Discontinued TAKE ONE TABLET BY MOUTH THREE TIMES A DAY WITH MEALS FOR POTASSIUM SUPPLEMENTATIONTAKE WITH FOOD 180 March 16, 2020 [id number] Nov 29, 2019 [facility]IO [facility] [place] [facility] POTASSIUM CHLORIDE 10MEQ TAB,SA Discontinued TAKE ONE TABLET BY MOUTH THREE TIMES A DAY WITH MEALS FOR POTASSIUM SUPPLEMENTATIONTAKE WITH FOOD 180 May 26, 2019 [id number] Jan 24, 2019 [facility] [place] [facility] SYRINGE 2.5-3ML/NDL 25G 1IN Active USE 1 SYRINGE EVERY MONTH 3 Feb 21, 2021 [id number] March 20, 2020 [facility] SYRINGE 2.5-3ML/NDL 25G 1IN Discontinued USE 1 SYRINGE EVERY Thu 3 March 18, 2020 [id number] Dec 21, 2019 [facility] TESTOSTERONE CYPIONATE 200MG/ML INJ,1ML (IN OIL) Active INJECT 200 MG (1 ML) INTRAMUSCULARLY EVERY MONTH FOR HORMONE REPLACEMENT 1 May 18, 2020 [id number] April 06, 2020 ADELAIDA CLIFFORD [facility] [place] [facility] TESTOSTERONE CYPIONATE 200MG/ML INJ,1ML (IN OIL) Discontinue d INJECT 200 MG (1 ML) INTRAMUSCULARLY EVERY MONTH FOR HORMONE REPLACEMENT March 25, 2020 [id number] Oct 25, 2019 ADELAIDA CLIFFORD [facility] TESTOSTERONE CYPIONATE 200MG/ML INJ,1ML (IN OIL) Discontinue d INJECT 200 MG (1 ML) INTRAMUSCULARLY EVERY MONTH FOR HORMONE REPLACEMENT Nov 06, 2019 [id number] Sep 25, 2019 ADELAIDA CLIFFORD [facility] TESTOSTERONE CYPIONATE 200MG/ML INJ,1ML (IN OIL) Discontinue d INJECT 200 MG (1 ML) INTRAMUSCULARLY EVERY MONTH FOR HORMONE REPLACEMENT 1 May 14, 2019 [id number] Apr 10, 2019 ADELAIDA CLIFFORD [facility] TRAMADOL HCL 50MG TAB Active TAKE 1 TO 2 TABLET S BY MOUTH EVERY 6 HOURS NEEDED FOR PAIN 180 Jul 21, 2020 [id number] March 30, [address] [facility] TRAMADOL HCL 50MG TAB Discontinued TAKE 1 TO 2 TABLET S BY MOUTH EVERY 6 HOURS NEEDED FOR PAIN 180 Jun 06, 2020 [id number] Jan 11, 2020 [facility] TRAMADOL HCL 50MG TAB Discontinued TAKE 1 TO 2 TABLET S BY MOUTH EVERY 6 HOURS NEEDED FOR PAIN 180 Jun 06, 2020 [id number] Dec 06, 2019 [facility] TRAMADOL HCL 50MG TAB Discontinued TAKE 1 TO 2 TABLET S BY MOUTH EVERY 6 HOURS NEEDED FOR PAIN 180 Dec 14, 2019 [id number] Nov 15, 2019 DANTE VALVERDE [facility] [place] [facility] TRAMADOL HCL 50MG TAB Discontinued TAKE 1 TO 2 TABLET S BY MOUTH EVERY 6 HOURS NEEDED FOR PAIN 180 Jul 06, 2019 [id number] May 26, 2019 [facility] [place] [facility] TRIAMCINOLONE ACETONIDE 0.5% CREAM,TOP Active A PPLY SPARINGLY TO AFFECTED AREA ONCE A DAY NEEDED FOR RASH 45 Jul 15, 2020 [id number] April 01 0 TERRIE CHAMBERSA [facility] [place] [facility] TRIAMCINOLONE ACETONIDE 0.5% CREAM,TOP Discontinued A PPLY SPARINGLY TO AFFECTED AREA ONCE A DAY NEEDED FOR RASH 45 Oct 12, 2019 [id number] Jul THOM CHAMBERS [facility] [place] [facility] Problems (Conditions): All historical and current Section Date Range: From patient's date of to the date document was create d. This section includes a list of Problems (Conditions) know n to [facility] for the patient. It includes both active and inacti ve problems (conditions). The data comes from all [place] treatment facilities. Problem Status Problem Code Date of Onset Date of Resolution Comm ent(s) Provider Source Basal cell carcinoma of scalp Active [id number] THOM CHAMBERS [facility] Chronic back pain Active [id number] TERRIE CHAMBERS [facility] [place] Chronic kidney disease stage 3 Active 661758198 THOM CHAMBERS [facility] [place] [facility] Constipation Active [id number] THOM CHAMBERS [facility] [place] [facility] Diabetes mellitus Active 15663431 THOM CHAMBERS [facility] [place] [facility] Diabetic neuropathy Active 994590370 Neha CHAMBERS [facility] [place] [facility] Essential hypertension Active 30506469 THOM CHAMBERS [facility] [place] [facility] Hyperlipidemia Active 01095196 THOM CHAMBERS [facility] [place] [facility] Hypogonadism Active 40527707 THOM CHAMBERS [facility] [place] [facility] Sleep apnea Active 17338356 THOM CHAMBERS [facility] [place] [facility] Radiology Reports: +/- 30 days of the encounter No Data Provided for This Section Pathology Reports: +/- 30 days of the encounter No Data Provided for This Section Encounter Notes: All associated encounter notes This section contains the clinical notes associated to the Encounter. Date/Time Encounter Note(s) Provider Source Nov 29, 2019 02:15 PM CARE MANAGEMENT NOTE: LOCAL TITLE: EK-PACT CARE MANAGEMENT STANDARD TITLE: CARE MANAGEMENT NOTE DATE OF NOTE: NOV 29, 2019@14:15 ENTRY DATE: NOV 29, 2019@14:15:57 AUTHOR: ALLA NARAYANAN EXP COSIGNER: URGENCY: STATUS: COMPLETED Requested lab orders received from Dr. Conde, ph [phone] to be faxed to Dr. Conde at [phone]. Vet needs these tests scheduled on 10-01-20 and would like time of 1130. Orders as follows: [facility] UA/CULTURE IF INDICATED PROTEIN/CREATININE RATIO URINE RENAL FUNCTION PANEL MAGNESIUM HEPATIC FUNCTION PANEL RTC CLINIC ORDER PLACED /es/ ALLA NARAYANAN RN Signed: 11/29/2019 14:23 Receipt Acknowledged By: * AWAITING SIGNATURE * THOM CHAMBERS * AWAITING SIGNATURE * REMY RODRIGUEZ [facility]
--- OUTSIDE RECORDS SUMMARY | 2020-04-18 09:24 | XMS REPORT | Encounter Summary ---
Author Author Department of [facility] SIMI palacio Organization Department of [facility] Address [address] [place] [phone] Phone Unavailable Care Team Providers Care Member Of Technical Staff Name Role Phone THOM CHAMBERS PCP Unavailable [...] to Policy Woodard [facility] ([facility]) MEDICARE ADVANTAGE MCR ([facility]) Nov 09, 2017 [id number] [phone] SIMI COVARRUBIAS PATIENT [facility] (R) MEDICARE ADVANTAGE MCR ([facility]) Nov 09, 2017 [id number] [phone] SIMI COVARRUBIAS PATIENT [facility] ([facility]) MEDICARE ADVANTAGE MCR ([facility]) Nov 09, [phone] [id number] SIMI COVARRUBIAS PATIENT Selected Encounter This section includes the information on record at [facility] for the Encounter. Date/Time Encounter Type Encounter Description Reason Provider Source Nov 11, 2019 05:00 PM Outpatient Encounter ADMIN PAT ACTIVTIES ([place]AS[place] NCT) [facility] [place] IHE Encounter Template Text not used by VA Assessments - Encounter Diagnoses No Data Provided for This Section Plan of Treatment: Future Appointments (+ 6 months) and Future Tests (+/- 45 day s) The Plan of Treatment section includes future care activities for the patient fr om all [place] treatment facilities. This section includes future appointments and fu ture orders which are active, pending or scheduled. Future Appointments This section includes appointments that were scheduled t o occur 6 months from the date of the Encounter, up to a maximum of 20 appointme nts. The data comes from all [place] treatment facilities. Appointment Date/Time Appointment Type Appointment Facili ty Name Nov 16, 2019 02:00 PM AMBULATORY - SURGERY [facility] [place] [facility] Nov 16, 2019 03:00 PM AMBULATORY - NONE [facility] [place] [facility] Nov 17, 2019 10:00 AM AMBULATORY - NONE [facility] Dec 01, 2019 11:30 AM AMBULATORY - MEDICINE [facility] Dec 14, 2019 03:00 PM AMBULATORY - NONE [facility] [place] [facility] Dec 15, 2019 01:00 PM AMBULATORY - NONE [facility] Jan 12, 2020 10:00 AM AMBULATORY - NONE [facility] Jan 26, 2020 03:00 PM AMBULATORY - NONE [facility] [place] [facility] Feb 29, 2020 02:30 PM AMBULATORY - NONE [facility] [place] [facility] March 20, 2020 08:00 AM AMBULATORY - MEDICINE [facility] [place] March 28, 2020 11:30 AM AMBULATORY - NONE [facility] [place] [facility] Apr 19, 2020 11:00 AM AMBULATORY - NONE [facility] [place] [facility] Apr 26, 2020 10:45 AM AMBULATORY - NONE [facility] 15 Surgical Procedures: All associated to the encounter No Data Provided for This Section Lab Results: +/- 30 days of the encounter This section includes the Chemistry and Hematology Lab R esults on record with [place] for the patient. Radiology Reports and Pathology Report s are provided separately, in subsequent sections. Lab Results This section contains the Chemistry/Hematology Results anushka t were resulted 30 days before or 30 days after the date of the Encounter. Date/Time Source Result Type Result - Unit Interpretation Reference Range Comment Dec 01, 2019 11:09 AM [facility] CBC & DIFF Specimen Type: BLOOD [...] 0.5 % Dec 01, 2019 11:09 AM [facility] RENAL FUNCTION PANEL Specimen Type: PLASMA [...] EGFR 46.5 Dec 01, 2019 11:09 AM [facility] URINALYSIS Specimen Type: URINE No comment [...] RBC/HPF 0-2 Dec 01, 2019 11:09 AM [facility] MAGNESIUM (mg/dL) Specimen Type: PLASMA No comment entered. MAGNESIUM (mg/dL) 2.4 mg/dl 1.6-2.6 Dec 01, 2019 11:09 AM [facility] HEPATIC FUNCTION PANE L Specimen Type: PLASMA No comment entered. PROTEIN,TOTAL 7.2 g/dL 6.0-8.6 ALBUMIN 4.5 g/dl 3.4-5.0 TOTAL BILIRUBIN 0.7 mg/dL 0.2-1.2 DIRECT BILIRUBIN 0.30 mg/dL 0-0.5 ASPARTATE TRANSAMINASE 29 U/L 5-34 ALANINE AMINOTRANSFERASE 20 U/L 8-40 ALKALINE PHOSPHATASE 98 U/L 40-150 Dec 01, 2019 11:09 AM [facility] MICROALBUMIN (CO,EK) Specimen Type: URINE No comment entered. *MICROALBUMIN(CONC) 116.8 mg/dL - *MICROALBUMIN(SPOT) 651.8 mcg/mg cr HH 0-29 *CREATININE mg/dL 179.2 mg/dl Not Avail. Dec 01, 2019 11:09 AM [facility] COMPREHENSIVE METABOL IC PANEL Specimen Type: [...] EGFR 46.5 Dec 01, 2019 11:09 AM [facility] TRAMADOL SCRN W/REFLE X,URINE Specimen Type: URINE Comment: normalcy status - Abnormal Tramadol Screen This test was performed using a forensic kit that is intended for the qualitative and semi- quantitative determination of Tramadol in human urine and has not been cleared or approved by the FDA for diagnostic purposes. The analytical performance characteristics of this test have been determined by [facility]. This test should not be used for diagnosis without confirmation by other, more specific, confirmatory analytical methodologies. Test performed by [facility] [address] [address] Tyre Fitter: Baron Domingo M.D.,Ph.D. Test Reported by [facility], [facility], [address] [place] [address] Lawrence Mckeon M.D., Ph.D., Director of Laboratories , CLIA [id number] O-Desmethyltramadol This test was developed and its analytical performance characteristics have been determined by [facility]. It has not been cleared or approved by the US Food and Drug Administration. This assay has been validated pursuant to the CLIA regulations and is used for clinical purposes. *TRAMADOL SCREEN, URINE Positive Negati ve *TRAMADOL QUANT, URINE > 5000 ng/mL H < 10 0 *DESMETHYLTRAMADOL, URINE >5000 ng/mL H < 100 Dec 01, 2019 11:09 AM [facility] DRUGS OF ABUSE SCREEN Specimen Type: URINE No comment entered. AMPHETAMINE NEG Negative BARBITURATES NEG Negative BENZODIAZEPINES NEG Negative CANNABINOIDS NEG Negative COCAINE NEG Negative OPIATES NEG Negative PHENCYCLIDINE(PCP) NEG Negative *CREATININE,DRUG SCR 177.22 mg/dL METHADONE(UDS) NEG Negative OXYCODONE (URINE) NEG Negative ALCOHOL-URINE,RANDOM (SOSA,WI,EK) NEG mg/dL <10 Dec 01, 2019 11:09 AM [facility] URINALYSIS Specimen Type: URINE No comment [...] RBC/HPF 0-2 Nov 10, 2019 11:39 AM [facility] HEMOGLOBIN A1C Specimen Type: BLOOD No comment entered. HEMOGLOBIN A1C 10.6 % H 4.0-6.0 Nov 10, 2019 11:39 AM [facility] BASIC METABOLIC PANEL Specimen Type: PLASMA No comment entered. *CREATININE 1.60 mg/dL H 0.7-1.3 UREA NITROGEN mg/dL 24 mg/dL 9-25 GLUCOSE 226 mg/dL H 72-99 SODIUM 140 mEq/L 136-145 POTASSIUM 3.9 mEq/L 3.5-5.0 CALCIUM (mg/dL) 9.3 mg/dL 8.4-10.4 CHLORIDE 101 mEq/L 98-107 CO2 29 mEq/L 22-31 EGFR 42.6 Nov 10, 2019 11:39 AM [facility] TESTOSTERONE (SOSA ,WI,EK) Specimen Type: SERUM No comment entered. TESTOSTERONE (SOSA,WI,EK) 371 ng/dL 221-87 1 Nov 10, 2019 11:39 AM [facility] CBC & DIFF Specimen Type: BLOOD No [...] 0.3 % Nov 10, 2019 11:39 AM [facility] [place] [facility] PROSTATIC SP ECIFIC ANTIGEN(TOTAL) [...] patient. The data comes from a ll [place] treatment facilities. It does not list Allergies/ADRs that were removed or entered in error. Some allergies/ADRs may be reported in t Immunization section. Allergen Event Date Event Type Reaction(s) Severity Source LISINOPRIL Dec 01, 2017 Propensity to adverse reactions to drug (disorder) Renal impairment [facility] 15 METFORMIN Dec 01, 2017 Propensity to adverse reactions to drug (disorder) Renal impairment [facility] 15 Medications: VA dispensed (-15 months) and Non-VA Documented (Obtained Outside A) Section Date Range: 1) prescriptions processed by a VA pharmacy in the last 15 m [facility], and 2) all medications recorded in the [place] medical record as "non-VA medic ations". Pharmacy terms refer to [place] pharmacy's work on prescriptions. VA patient s are advised to take their medications as instructed by their health care team. The data comes from all [place] treatment facilities. Glossary of Pharmacy Terms:Active = A prescription that can be filled at the local [place] pharmacy.Active: On Hold = An active prescription that will not be filled until pharmacy resolves the issue.Active: Susp = An active prescription that is not scheduled to be filled yet.Clinic Order = A medication received during a visit to a [place] clinic or emergency department (currently not available).Discontinued = A prescription stopped by a [place] provider. It is no longer available to be filled. = A prescription which is too old to fill. This does not refer to the expiration date of the medication in the container. Non-VA = A medication that came from someplace other than a [place] pharmacy. This may be a prescription from either the [place] or other providers that was filled outside the [place]. Or, it may be an over the [...] TIMES A DAY 400 Sep 12, 2020 [id number] Feb 29, 2020 [place] [facility] ACCU-CHEK ROSINA PLUS (GLUCOSE) TEST STRIP Discontinued USE 1 STRIP FOR TESTING FOUR TIMES A DAY 400 Sep 15, 2019 [id number] Jun 13, 2019 [facility]AD Discontinued USE 1 PAD ON SKIN FOUR TIMES A DAY 40 0 Apr 25, 2020 [id number] Nov 29, 2019 [address]LEUTERIO [address]STON [facility] [place] ALCOHOL PREP PAD Discontinued USE 1 PAD ON SKIN FOUR TIMES A DAY 40 0 Sep 15, 2019 [id number] Apr 18, 2019 ELEUTERIO [place]IV[place]STON [facility] ALLOPURINOL 100MG TAB Active TAKE ONE TABLET BY MOUTH ONCE A DAY FOR GOUT. TAKE WITH PLENTY OF WATER 90 Sep 23, 2020 [id number] Mar 05, 2020 SILVINA CHAMBERS [facility] [place] [facility] ALLOPURINOL 100MG TAB Discontinued TAKE ONE TABLET BY MOUTH ONCE A DAY FOR GOUT. TAKE WITH PLENTY OF WATER 90 Dec 30, 2019 [id number] Sep 17, 2019 THOM SHARPE [facility] [place] [facility] ALOGLIPTIN 12.5MG TAB Active TAKE ONE TABLET BY MOUTH O NCE A DAY FOR DIABETES 90 Sep 12, 2020 [id number] Mar 04, 2020 ELEUTERIO LIVINGSTON [facility] [place] ALOGLIPTIN 12.5MG TAB Discontinued TAKE ONE TABLET BY MOUTH ONCE A DAY FOR DIABETES 90 Dec 22, 2019 [id number] Jun 18, 2019 BALTRUSAITIS,ELEUTERIO L [facility] [place] [facility] AMLODIPINE BESYLATE 10MG TAB Discontinued TAKE ONE TA BLET BY MOUTH EVERY MORNING FOR HEART/BLOOD PRESSURE 90 Jun 10, 2019 [id number] Feb 25, 2019 JAQUELIN MONIKA Larry [facility] [place] [facility] AMLODIPINE BESYLATE 10MG TAB TAKE ONE TA BLET BY MOUTH EVERY MORNING FOR HEART/BLOOD PRESSURE 90 Apr 12, 2020 [id number] Feb 10, 2020 SILVINA CHAMBERS [facility] ASPIRIN 81MG TAB,CHEWABLE Non-VA CHEW ONE TABLET BY MOUTH ONCE A DAY Non-VA Documented by: MEGAN HAWK nted at: [facility] [place] [facility] ATORVASTATIN [place] 20MG TAB Active TAKE ONE TABLET BY MOUTH ONCE A DAY FOR CHOLESTEROL. REPORT ANY UNEXPLAINED MUSCLE PAIN OR WEAKNESS TO YOUR DOCTOR. 90 Jan 02, 2021 [id number] March 24, 2020 [facility] ATORVASTATIN [place] 40MG TAB Discontinued TAKE ONE-HALF T ABLET BY MOUTH AT BEDTIME FOR CHOLESTEROL. REPORT ANY UNEXPLAINED MUSCLE PAIN OR WEAKNESS TO YOUR DOCTOR. 45 Jul 15, 2020 [id number] Oct 14, 2019 REYESTHOM [facility] [place] [facility] ATORVASTATIN [place] 40MG TAB Discontinued TAKE ONE-HALF T ABLET BY MOUTH AT BEDTIME FOR CHOLESTEROL. REPORT ANY UNEXPLAINED MUSCLE PAIN OR WEAKNESS TO YOUR DOCTOR. 45 Oct 12, 2019 [id number] Jul 16, 2019 THOM CHAMBERS [facility] [place] [facility] CALCIUM CARBONATE 500MG TAB,CHEWABLE Non-VA CHEW ONE TABLET BY MOUTH PRN Non-VA Documented by: THOM CHAMBERSume nted at: [facility] CHLORTHALIDONE 25MG TAB Active TAKE ONE TABLET BY MOUTH ONCE A DAY 90 Jul 01, 2020 [id number] March 19, 2020 MONIKA HAMMER [facility] [place] [facility] CHLORTHALIDONE 25MG TAB Discontinued TAKE ONE TABLET BY MOUTH ONCE A DAY 90 Jun 16, 2019 [id number] Apr 12, 2019 MONIKA AHMMER [facility] [place] [facility] CHOLECALCIFEROL 1000UNT TAB Non-VA TAKE ONE TABLET BY MOUTH EVERY OTHER DAY Non-VA Docume nted by: MEGAN HAWK nted at: [facility] [place] [facility] CYANOCOBALAMIN 1000MCG/ML INJ Active INJECT 100 0 MCG (1 ML) INTRAMUSCULARLY EVERY MONTH FOR B12 SUPPLEMENTATION. 3 Nov 03, 2020 [id number] Apr 23, 2020 [facility] [place] [facility] CYANOCOBALAMIN 1000MCG/ML INJ Discontinued INJECT 100 0 MCG (1 ML) INTRAMUSCULARLY EVERY MONTH FOR B12 SUPPLEMENTATION. 3 Nov 17 0 [id number] Aug 07, 2019 [facility] [place] [facility] DIPHENHYDRAMINE HCL 25MG CAP Non-VA TAKE 1 CAPSULE BY MOUTH PRN Non-VA Documented by: THOM CHAMBERS nted at: [facility] DOCUSATE NA 100MG CAP No n-VA TAKE 2 CAPSULES BY MOUTH ONCE A DAY Non-VA Documented by: THOM CHAMBERS nted at: [facility] FISH OIL 1000MG (500MG DHA/EPA) CAP,ORAL Non-VA TAKE 1 CAPSULE BY MOUTH ONCE A DAY Non-VA Documented by: MEGAN HAWK Docume nted at: [facility] [place] [facility] GABAPENTIN 100MG CAP Active TAKE 1 CAPSULE BY M OUTH EVERY MORNING AND TAKE 1 CAPSULE BY MOUTH AT NOON AND TAKE 2 CAPSULES BY MOUTH AT BEDTIME 360 Jul 06, 2020 [id number] March 31, 2020 ELEUTERIO LIV[place]STON [facility] [place] GLUCAGON 1MG/GARBIELLA INJ,EMERGENCY KIT INJEC T 1MG SUBCUTANEOUSLY NEEDED FOR SEVERE HYPOGLYCEMIA 1 Nov 30, 2019 [id number] Nov 03, 2019 [facility] [place] [facility] INSULIN,ASPART,HUMAN 100U/ML,NOVOLOG,FLEXPEN,3ML Active: On Hold INJECT 20 UNITS SUBCUTANEOUSLY BEFORE BREAKFAST AND INJECT 20 UNITS BEFORE LUNCH AND INJECT 26 UNITS BEFORE SUPPER AND INJECT 24 UNITS SNACK FOR BLOOD SUGAR CONTROL. ADMINISTER 10 MINUTES BEFORE FOOD DIRECTED. REFRIGERATE UN-OPENED PENS. DISCARD CARTRIDGE 28 DAYS AFTER OPENING. PLUS CORRECTION Mar 01, 2021 [id number] ELEUTERIO LIVINGSTON [facility] [place] [facility] INSULIN,ASPART,HUMAN 100U/ML,NOVOLOG,FLEXPEN,3ML Discontinue d INJECT 20 UNITS SUBCUTANEOUSLY BEFORE BREAKFAST AND INJECT 20 UNITS BEFORE LUNCH AND INJECT 24 UNITS BEFORE SUPPER AND INJECT 24 UNITS SNACK FOR BLOOD SUGAR CONTROL. ADMINISTER 10 MINUTES BEFORE FOOD DIRECTED. REFRIGERATE UN-OPENED PENS. DISCARD CARTRIDGE 28 DAYS AFTER OPENING. PLUS CORRECTION 30 Jan 26, 2021 [id number] Jan 28, 2020 ELEUTERIO LIVINGSTON [facility] [place] [facility] INSULIN,ASPART,HUMAN 100U/ML,NOVOLOG,FLEXPEN,3ML Discontinue d INJECT 20 UNITS SUBCUTANEOUSLY BEFORE MEALS FOR BLOOD SUGAR CONTROL. ADMINISTER 10 MINUTES BEFORE FOOD DIRECTED. REFRIGERATE UN-OPENED PENS. DISCARD CARTRIDGE 28 DAYS AFTER OPENING. PLUS CORRECTION FOR BLOOD SUGAR CONTROL. ADMINISTER 10 MINUTES BEFORE FOOD DIRECTED. REFRIGERATE UN-OPENED PENS. DISCARD CARTRIDGE 28 DAYS AFTER OPENING. PLUS CORRECTION 30 Nov 16, 2020 [id number] Nov 16 ELEUTERIO LIVINGSTON [facility] [place] [facility] INSULIN,ASPART,HUMAN 100U/ML,NOVOLOG,FLEXPEN,3ML Discontinue d INJECT 15 UNITS SUBCUTANEOUSLY EVERY MORNING BEFORE MEAL AND INJECT 15 UNITS WITH LUNCH AND INJECT 15 UNITS WITH SUPPER AND INJECT 20 UNITS WITH SNACK FOR BLOOD SUGAR CONTROL. ADMINISTER 10 MINUTES BEFORE FOOD DIRECTED. REFRIGERATE UN-OPENED PENS. DISCARD CARTRIDGE 28 DAYS AFTER OPENING. Dec 22, 2019 [id number] Oct 12, 2019 ELEUTERIO LIVINGSTON [facility] [place] [facility] INSULIN,GLARGINE,HUMAN 100 UNIT/ML INJ,SOLOSTAR,3ML Active INJECT 50 UNITS SUBCUTANEOUSLY EVERY MORNING FOR BLOOD SUGAR CONTROL. ADMINISTER AT SAME TIME EACH DAY DIRECTED. DISCARD ANY OPEN CARTRIDGE AFTER 28 DAYS. Sep 23, 2020 [id number] Jan 28, 2020 ELEUTERIO LIVINGSTON [facility] [place] [facility] INSULIN,GLARGINE,HUMAN 100 UNIT/ML INJ,SOLOSTAR,3ML Disconti nued INJECT 45 UNITS SUBCUTANEOUSLY EVERY MORNING FOR BLOOD SUGAR CONTROL. ADMINISTER AT SAME TIME EACH DAY DIRECTED. DISCARD ANY OPEN CARTRIDGE AFTER 28 DAYS. Oct 23, 2019 [id number] Aug 30, 2019 ELEUTERIO LIVINGSTON [facility] [place] [facility] LACTOBACILLUS ACIDOPHILUS TAB,CHEWABLE Non-VA CHEW ONE TABLET BY MOUTH ONCE A DAY Non-VA Documented by: MEGAN HAWK nted at: [facility] [place] [facility] LANCET,SOFTCLIX Active USE LANCET 5 TIME S A DAY FOR TESTING BLOOD GLUCOSE DIRECTED 500 Dec 28, 2020 [id number] March 19, 2020 BALTRUSAITISELEUTERIO [facility] [place] [facility] LANCET,SOFTCLIX Discontinued USE LANCET 5 TIME S A DAY FOR TESTING BLOOD GLUCOSE DIRECTED 500 Jan 11, 2020 [id number] Sep 29, 2019 ELEUTERIO PATEL [facility] [place] [facility] MAGNESIUM OXIDE 400MG TAB Non-VA TAKE ONE TABLET BY MOUTH ONCE A DAY Non-VA Documented by: MEGAN HAWK nted at: [facility] [place] [facility] METOPROLOL SUCCINATE 200MG TAB,SA TAKE O NE-HALF TABLET BY MOUTH EVERY EVENING FOR HEART/BLOOD PRESSURE. SWALLOW WHOLE, DO NOT CRUSH OR CHEW (TABLETS MAY BE CUT IN HALF). 45 March 18, 2020 [id number] Dec 28, 2019 STANISLAV HAMMER [facility] NEEDLE 22G 1.5IN USE NEEDLE FOR EVERY MONTH 1 Nov 12, 2019 [id number] Feb 07, 2019 ADELAIDA CLIFFORD [facility] [place] [facility] NEEDLE,PEN 31G,5MM Discontinued USE NEEDLE SUBCUTANE OUSLY 5 TIMES A DAY - THIS IS A SINGLE USE NEEDLE AND SHOULD BE DISCARDED AFTER USE 500 Dec 21, 2019 [id number] Sep 28, 2019 ELEUTERIO LIVINGSTON [facility] [place] [facility] POTASSIUM CHLORIDE 10MEQ TAB,SA Active TAKE TWO TABLETS BY MOUTH TWO TIMES A DAY FOR POTASSIUM SUPPLEMENTATIONTAKE WITH FOOD 360 Dec 12, 2020 [id number] Mar 02, 2020 INGRIDYANELY [facility] [place] [facility] POTASSIUM CHLORIDE 10MEQ TAB,SA Discontinued TAKE ONE TABLET BY MOUTH THREE TIMES A DAY WITH MEALS FOR POTASSIUM SUPPLEMENTATIONTAKE WITH FOOD 180 March 16, 2020 [id number] Nov 29, 2019 BALANGELIKAUSAELEUTERIO QUIGLEY [facility] [place] POTASSIUM CHLORIDE 10MEQ TAB,SA Discontinued TAKE ONE TABLET BY MOUTH THREE TIMES A DAY WITH MEALS FOR POTASSIUM SUPPLEMENTATIONTAKE WITH FOOD 180 May 26, 2019 [id number] Jan 24, 2019 YANELY QUINTERO [facility] [place] SYRINGE 2.5-3ML/NDL 25G 1IN Active USE 1 SYRINGE EVERY MONTH 3 Feb 21, 2021 [id number] March 20, 2020 [facility] SYRINGE 2.5-3ML/NDL 25G 1IN Discontinued USE 1 SYRINGE EVERY Thu 3 March 18, 2020 [id number] Dec 21, 2019 [facility] TESTOSTERONE CYPIONATE 200MG/ML INJ,1ML (IN OIL) Active INJECT 200 MG (1 ML) INTRAMUSCULARLY EVERY MONTH FOR HORMONE REPLACEMENT 1 May 18, 2020 [id number] April 06, 2020 ADELAIDA CLIFFORD [facility] [place] TESTOSTERONE CYPIONATE 200MG/ML INJ,1ML (IN OIL) Discontinue d INJECT 200 MG (1 ML) INTRAMUSCULARLY EVERY MONTH FOR HORMONE REPLACEMENT 1 March 25, 2020 [id number] Oct 25, 2019 ADELAIDA CLIFFORD [facility] [place] TESTOSTERONE CYPIONATE 200MG/ML INJ,1ML (IN OIL) Discontinue d INJECT 200 MG (1 ML) INTRAMUSCULARLY EVERY MONTH FOR HORMONE REPLACEMENT 1 Nov 06, 2019 [id number] Sep 25, 2019 ADELAIDA CLIFFORD [facility] [place] TESTOSTERONE CYPIONATE 200MG/ML INJ,1ML (IN OIL) Discontinue d INJECT 200 MG (1 ML) INTRAMUSCULARLY EVERY MONTH FOR HORMONE REPLACEMENT 1 May 14, 2019 [id number] Apr 10, 2019 ADELAIDA CLIFFORD [facility] [place] TRAMADOL HCL 50MG TAB Active TAKE 1 TO 2 TABLET S BY MOUTH EVERY 6 HOURS NEEDED FOR PAIN 180 Jul 21, 2020 [id number] March 30, 2020 [facility] TRAMADOL HCL 50MG TAB Discontinued TAKE 1 TO 2 TABLET S BY MOUTH EVERY 6 HOURS NEEDED FOR PAIN 180 Jun 06, 2020 [id number] Jan 11, 2020 [facility] TRAMADOL HCL 50MG TAB Discontinued TAKE 1 TO 2 TABLET S BY MOUTH EVERY 6 HOURS NEEDED FOR PAIN 180 Jun 06, 2020 [id number] Dec 06, 2019 [facility] TRAMADOL HCL 50MG TAB Discontinued TAKE 1 TO 2 TABLET S BY MOUTH EVERY 6 HOURS NEEDED FOR PAIN 180 Dec 14, 2019 [id number] Nov 15, 2019 DANTE VALVERDE [facility] [place] TRAMADOL HCL 50MG TAB Discontinued TAKE 1 TO 2 TABLET S BY MOUTH EVERY 6 HOURS NEEDED FOR PAIN 180 Jul 06, 2019 [id number] May 26, 2019 NELLA GROVE [facility] [place] TRIAMCINOLONE ACETONIDE 0.5% CREAM,TOP Active A PPLY SPARINGLY TO AFFECTED AREA ONCE A DAY NEEDED FOR RASH 45 Jul 15, 2020 [id number] April 01 0 TERRIE CHAMBERSA [facility] [place] TRIAMCINOLONE ACETONIDE 0.5% CREAM,TOP Discontinued A PPLY SPARINGLY TO AFFECTED AREA ONCE A DAY NEEDED FOR RASH 45 Oct 12, 2019 [id number] Jul REYESTHOM [facility] [place] Problems (Conditions): All historical and current Section Date Range: From patient's date of to the date document was create d. This section includes a list of Problems (Conditions) know n to [facility] for the patient. It includes both active and inacti ve problems (conditions). The data comes from all [place] treatment facilities. Problem Status Problem Code Date of Onset Date of Resolution Comm ent(s) Provider Source Basal cell carcinoma of scalp Active 512208132 THOM CHAMBERS [facility] [place] [facility] Chronic back pain Active 144485000 TERRIE CHAMBERS [facility] [place] [facility] Chronic kidney disease stage 3 Active 337290006 THOM CHAMBERS [facility] [place] [facility] Constipation Active 69707983 THOM CHAMBERS [facility] [place] Diabetes mellitus Active 04967766 THOM CHAMBERS [facility] [place] [facility] Diabetic neuropathy Active 638801195 Neha CHAMBERS [facility] [place] Essential hypertension Active 14106255 THOM CHAMBERS [facility] [place] [facility] Hyperlipidemia Active 05360522 THOM CHAMBERS [facility] [place] Hypogonadism Active 15493280 THOM CHAMBERS [facility] [place] Sleep apnea Active 83520836 THOM CHAMBERS [facility] [place] Radiology Reports: +/- 30 days of the encounter No Data Provided for This Section Pathology Reports: +/- 30 days of the encounter No Data Provided for This Section Encounter Notes: All associated encounter notes This section contains the clinical notes associated to the Encounter. Date/Time Encounter Note(s) Provider Source Nov 11, 2019 05:00 PM ADMINISTRATIVE NOTE: LOCAL TITLE: EK-ADMINISTRATIVE STANDARD TITLE: ADMINISTRATIVE NOTE DATE OF NOTE: NOV 11, 2019@17:00 ENTRY DATE: NOV 11, 2019@17:00:39 AUTHOR: KILLIAN DAVID EXP COSIGNER: URGENCY: STATUS: COMPLETED 11/10/19 LAB VALUES DRAWN, TESTED AND P RINTED ARE FAXED TO DR. YANELY QUINTERO AT [phone] THIS DATE PER 'S REQUEST; THE SAME FAXED TO DR GROVE IN [facility] PER REQUEST FROM AT # [phone]. CONFIRMATIONS RECEIVED THIS DATE @1659 AND 1700 RESCPECTIVELY. /noa/ KILLIAN DAVID Signed: 11/11/2019 17:01 Receipt Acknowledged By: 11/11/2019 17:04 /es/ THOM INGRAM * AWAITING SIGNATURE * JEANETTE KIM [facility]
--- OUTSIDE RECORDS SUMMARY | 2020-04-18 09:29 | XMS REPORT | Encounter Summary ---
Author Author Department of [facility] SIMI palacio Organization Department of [facility] Address [address] [place] [phone] Phone Unavailable Care Team Providers Care Plodding Operator Name Role Phone THOM CHAMBERS PCP Unavailable [...] to Policy Woodard [facility] ([facility]) MEDICARE ADVANTAGE MCR ([facility]) Nov 09, 2017 [id number] [phone] SIMI COVARRUBIAS PATIENT [facility] (R) MEDICARE ADVANTAGE MCR ([facility]) Nov 09, 2017 [id number] [phone] SIMI COVARRUBIAS PATIENT [facility] ([facility]) MEDICARE ADVANTAGE MCR ([facility]) Nov 09, 2019 [id number] SIMI COVARRUBIAS PATIENT Selected Encounter This section includes the information on record at [place] for the Encounter. Date/Time Encounter Type Encounter Description Reason Provider Source Dec 01, 2019 01:41 PM Outpatient Encounter ADMIN PAT ACTIVTIES ([place] NCT) [facility] [place] [facility] IHE Encounter Template Text not used by [facility] Assessments - Encounter Diagnoses No Data Provided for This Section Plan of Treatment: Future Appointments (+ 6 months) and Future Tests (+/- 45 day s) The Plan of Treatment section includes future care activities for the patient fr om all [place] treatment facilities. This section includes future appointments and fu ture orders which are active, pending or scheduled. Future Appointments This section includes appointments that were scheduled t o occur 6 months from the date of the Encounter, up to a maximum of 20 appointme nts. The data comes from all [place] treatment facilities. Appointment Date/Time Appointment Type Appointment Facili ty Name Dec 14, 2019 03:00 PM AMBULATORY - NONE [facility] [place] Dec 15, 2019 01:00 PM AMBULATORY - NONE [facility] Jan 12, 2020 10:00 AM AMBULATORY - NONE [facility] Jan 26, 2020 03:00 PM AMBULATORY - NONE [facility] [place] [facility] Feb 29, 2020 02:30 PM AMBULATORY - NONE [facility] [place] [facility] March 20, 2020 08:00 AM AMBULATORY - [facility]ICINE [facility] March 28, 2020 11:30 AM AMBULATORY - NONE [facility] [place] [facility] Apr 19, 2020 11:00 AM AMBULATORY - NONE [facility] [place] [facility] Apr 26, 2020 10:45 AM AMBULATORY - NONE [facility], [facility] 15 Surgical [...] Range Comment Dec 01, 2019 11:09 AM [facility] CBC & DIFF Specimen Type: BLOOD No [...] 0.5 % Dec 01, 2019 11:09 AM [facility] RENAL FUNCTION PANEL Specimen Type: PLASMA No comment entered. *CREATININE 1.48 mg/dL H 0.7-1.3 UREA NITROGEN mg/dL 19 mg/dL 9-25 GLUCOSE 99 mg/dL 72-99 SODIUM 143 mEq/L 136-145 POTASSIUM 3.4 mEq/L L 3.5-5.0 CALCIUM (mg/dL) 10.0 mg/dL 8.4-10.4 PHOSPHORUS INORGANIC 2.6 mg/dL 2.3-4.7 ALBUMIN 4.5 g/dl 3.4-5.0 CHLORIDE 101 mEq/L 98-107 CO2 34 mEq/L H 22-31 EGFR 46.5 Dec 01, 2019 11:09 AM [facility] URINALYSIS Specimen Type: URINE No comment entered. [...] RBC/HPF 0-2 Dec 01, 2019 11:09 AM [facility] MAGNESIUM (mg/dL) Specimen Type: PLASMA No comment entered. MAGNESIUM (mg/dL) 2.4 mg/dl 1.6-2.6 Dec 01, 2019 11:09 AM [facility] HEPATIC FUNCTION PANE L Specimen Type: PLASMA No comment entered. PROTEIN,TOTAL 7.2 g/dL 6.0-8.6 ALBUMIN 4.5 g/dl 3.4-5.0 TOTAL BILIRUBIN 0.7 mg/dL 0.2-1.2 DIRECT BILIRUBIN 0.30 mg/dL 0-0.5 ASPARTATE TRANSAMINASE 29 U/L 5-34 ALANINE AMINOTRANSFERASE 20 U/L 8-40 ALKALINE PHOSPHATASE 98 U/L 40-150 Dec 01, 2019 11:09 AM [facility] MICROALBUMIN (CO,EK) Specimen Type: URINE No comment entered. *MICROALBUMIN(CONC) 116.8 mg/dL - *MICROALBUMIN(SPOT) 651.8 mcg/mg cr HH 0-29 *CREATININE mg/dL 179.2 mg/dl Not Avail. Dec 01, 2019 11:09 AM [facility] COMPREHENSIVE METABOL IC PANEL Specimen Type: PLASMA [...] EGFR 46.5 Dec 01, 2019 11:09 AM [facility] TRAMADOL SCRN W/REFLE X,URINE Specimen Type: URINE Comment: normalcy status - Abnormal Tramadol Screen This test was performed using a forensic kit that is intended for the qualitative and semi- quantitative determination of Tramadol in human urine and has not been cleared or approved by the FDA for diagnostic purposes. The analytical performance characteristics of this test have been determined by [facility]. This test should not be used for diagnosis without confirmation by other, more specific, confirmatory analytical methodologies. Test performed by [facility] [address] [place] [address] Engineer Rf Deployment: Baron Domingo M.D.,Ph.D. Test Reported by [facility], [facility] [place], [address] [place], [place] Lawrence Mckeon M.D., Ph.D., Director of Laboratories , CLIA [id number] O-Desmethyltramadol This test was developed and its analytical performance characteristics have been determined by [facility]. It has not been cleared or approved by the US Food and Drug Administration. This assay has been validated pursuant to the CLIA regulations and is used for clinical purposes. *TRAMADOL SCREEN, URINE Positive Negati ve *TRAMADOL QUANT, URINE > 5000 ng/mL H < 10 0 *DESMETHYLTRAMADOL, URINE >5000 ng/mL H < 100 Dec 01, 2019 11:09 AM [facility] DRUGS OF ABUSE SCREEN Specimen Type: URINE No comment entered. AMPHETAMINE NEG Negative BARBITURATES NEG Negative BENZODIAZEPINES NEG Negative CANNABINOIDS NEG Negative COCAINE NEG Negative OPIATES NEG Negative PHENCYCLIDINE(PCP) NEG Negative *CREATININE,DRUG SCR 177.22 mg/dL METHADONE(UDS) NEG Negative OXYCODONE (URINE) NEG Negative ALCOHOL-URINE,RANDOM (SOSA,WI,EK) NEG mg/dL <10 Dec 01, 2019 11:09 AM [facility] URINALYSIS Specimen Type: URINE No comment entered. [...] RBC/HPF 0-2 Nov 10, 2019 11:39 AM [facility] [place] [facility] HEMOGLOBIN A1C Specimen Type: BLOOD No comment entered. HEMOGLOBIN A1C 10.6 % H 4.0-6.0 Nov 10, 2019 11:39 AM [facility] [employer] BASIC METABOLIC PANEL Specimen Type: PLASMA No comment entered. *CREATININE 1.60 mg/dL H 0.7-1.3 UREA NITROGEN mg/dL 24 mg/dL 9-25 GLUCOSE 226 mg/dL H 72-99 SODIUM 140 mEq/L 136-145 POTASSIUM 3.9 mEq/L 3.5-5.0 CALCIUM (mg/dL) 9.3 mg/dL 8.4-10.4 CHLORIDE 101 mEq/L 98-107 CO2 29 mEq/L 22-31 EGFR 42.6 Nov 10, 2019 11:39 AM [facility] TESTOSTERONE (SOSA ,WI,EK) Specimen Type: SERUM No comment entered. TESTOSTERONE (SOSA,WI,EK) 371 ng/dL 221-87 1 Nov 10, 2019 11:39 AM [facility] CBC & DIFF Specimen Type: BLOOD No [...] % Nov 10, 2019 11:39 AM [facility] [place] [facility] PROSTATIC SP ECIFIC ANTIGEN(TOTAL) Sp [...] adverse reactions to drug (disorder) Renal impairment [facility] 15 METFORMIN Dec 01, 2017 Propensity to adverse reactions to drug (disorder) Renal impairment [facility] V[facility] 15 Medications: VA dispensed (-15 months) and Non-VA Documented (Obtained Outside V A) Section Date Range: 1) prescriptions processed by a [facility] pharmacy in the last 15 m [facility], and 2) all medications recorded in [...] TIMES A DAY 400 Sep 12, 2020 [id number] Feb 29, 2020 BALDILANELEUTERIO Laron [facility] ACCU-CHEK ROSINA PLUS (GLUCOSE) TEST STRIP Discontinued USE 1 STRIP FOR TESTING FOUR TIMES A DAY 400 Sep 15, 2019 [id number] Jun 13, 2019 BALBRYCEIT ISELEUTERIO [facility] ALCOHOL PREP PAD Discontinued USE 1 PAD ON SKIN FOUR TIMES A DAY 40 0 Apr 25, 2020 [id number] Nov 29, 2019 BALELEUTERIO KONG [facility] [place] [facility] ALCOHOL PREP PAD Discontinued USE 1 PAD ON SKIN FOUR TIMES A DAY 40 0 Sep 15, 2019 [id number] Apr 18, 2019 ELEUTERIO [facility] ALLOPURINOL 100MG TAB Active TAKE ONE TABLET BY MOUTH ONCE A DAY FOR GOUT. TAKE WITH PLENTY OF WATER 90 Sep 23, 2020 [id number] Mar 05, 2020 SILVINA CHAMBERS [facility] [place] [facility] ALLOPURINOL 100MG TAB Discontinued TAKE ONE TABLET BY MOUTH ONCE A DAY FOR GOUT. TAKE WITH PLENTY OF WATER 90 Dec 30, 2019 [id number] Sep 17, 2019 THOM SHARPE [facility] [place] [facility] ALOGLIPTIN 12.5MG TAB Active TAKE ONE TABLET BY MOUTH O NCE A DAY FOR DIABETES 90 Sep 12, 2020 [id number] Mar 04, 2020 ELEUTERIO [facility] [place] [facility] ALOGLIPTIN 12.5MG TAB Discontinued TAKE ONE TABLET BY MOUTH ONCE A DAY FOR DIABETES 90 Dec 22, 2019 [id number] Jun 18, 2019 ELEUTERIO [place] [facility] [place] [facility] AMLODIPINE BESYLATE 10MG TAB Discontinued TAKE ONE TA BLET BY MOUTH EVERY MORNING FOR HEART/BLOOD PRESSURE 90 Jun 10, 2019 [id number] Feb 25, 2019 MONIKA HAMMER [facility] [place] [facility] AMLODIPINE BESYLATE 10MG TAB TAKE ONE TA BLET BY MOUTH EVERY MORNING FOR HEART/BLOOD PRESSURE 90 Apr 12, 2020 [id number] Feb 10, 2020 SILVINA CHAMBERS [facility] ASPIRIN 81MG TAB,CHEWABLE Non-VA CHEW ONE TABLET BY MOUTH ONCE A DAY Non-VA Documented by: MEGAN HAWK nted at: [facility] [place] [facility] ATORVASTATIN CA 20MG TAB Active TAKE ONE TABLET BY MOUTH ONCE A DAY FOR CHOLESTEROL. REPORT ANY UNEXPLAINED MUSCLE PAIN OR WEAKNESS TO YOUR DOCTOR. 90 Jan 02, 2021 [id number] March 24, 2020 [facility], VISN 15 ATORVASTATIN CA 40MG TAB Discontinued TAKE ONE-HALF T ABLET BY MOUTH AT BEDTIME FOR CHOLESTEROL. REPORT ANY UNEXPLAINED MUSCLE PAIN OR WEAKNESS TO YOUR DOCTOR. 45 Jul 15, 2020 [id number] Oct 14, 2019 THOM CHAMBERS [facility] [place] [facility] ATORVASTATIN CA 40MG TAB Discontinued TAKE ONE-HALF T ABLET BY MOUTH AT BEDTIME FOR CHOLESTEROL. REPORT ANY UNEXPLAINED MUSCLE PAIN OR WEAKNESS TO YOUR DOCTOR. 45 Oct 12, 2019 [id number] Jul 16, 2019 THOM CHAMBERS [facility] [place] [facility] CALCIUM CARBONATE 500MG TAB,CHEWABLE Non-VA CHEW ONE TABLET BY MOUTH PRN Non-VA Documented by: THOM CHAMBERS nted at: [facility] CHLORTHALIDONE 25MG TAB Active TAKE ONE TABLET BY MOUTH ONCE A DAY 90 Jul 01, 2020 [id number] March 19, 2020 MONIKA HAMMER [facility] [place] [facility] CHLORTHALIDONE 25MG TAB Discontinued TAKE ONE TABLET BY MOUTH ONCE A DAY 90 Jun 16, 2019 [id number] Apr 12, 2019 MONIKA HAMMER [facility] [place] [facility] CHOLECALCIFEROL 1000UNT TAB Non-VA TAKE ONE TABLET BY MOUTH EVERY OTHER DAY Non-VA Docume nted by: EMGAN HAWK nted at: [facility] [place] [facility] CYANOCOBALAMIN 1000MCG/ML INJ Active INJECT 100 0 MCG (1 ML) INTRAMUSCULARLY EVERY MONTH FOR B12 SUPPLEMENTATION. 3 Nov 03, 2020 [id number] Apr 23, 2020 THOM CHAMBERS [facility] [place] [facility] CYANOCOBALAMIN 1000MCG/ML INJ Discontinued INJECT 100 0 MCG (1 ML) INTRAMUSCULARLY EVERY MONTH FOR B12 SUPPLEMENTATION. 3 Nov 17 0 [id number] Aug 07, 2019 REYESTERRIEFORMERLY [facility] [place] [facility] DIPHENHYDRAMINE HCL 25MG CAP Non-VA TAKE 1 CAPSULE BY MOUTH PRN Non-VA Documented by: THOM CHAMBERS Docume nted at: [facility] DOCUSATE NA 100MG CAP No n-VA TAKE 2 CAPSULES BY MOUTH ONCE A DAY Non-VA Documented by: THOM CHAMBERS Docume nted at: [facility] FISH OIL 1000MG (500MG DHA/EPA) CAP,ORAL Non-VA TAKE 1 CAPSULE BY MOUTH ONCE A DAY Non-VA Documented by: MEGAN HAWK Docume nted at: [facility] [place] [facility] GABAPENTIN 100MG CAP Active TAKE 1 CAPSULE BY M OUTH EVERY MORNING AND TAKE 1 CAPSULE BY MOUTH AT NOON AND TAKE 2 CAPSULES BY MOUTH AT BEDTIME 360 Jul 06, 2020 [id number] March 31, 2020 ELEUTERIO [facility] [place] [facility] GLUCAGON 1MG/GABRIELLA INJ,EMERGENCY KIT INJEC T 1MG SUBCUTANEOUSLY NEEDED FOR SEVERE HYPOGLYCEMIA 1 Nov 30, 2019 [id number] Nov 03, 2019 TERRIE CHAMBERSA [facility] [place] [facility] INSULIN,ASPART,HUMAN 100U/ML,NOVOLOG,FLEXPEN,3ML Active: On Hold INJECT 20 UNITS SUBCUTANEOUSLY BEFORE BREAKFAST AND INJECT 20 UNITS BEFORE LUNCH AND INJECT 26 UNITS BEFORE SUPPER AND INJECT 24 UNITS SNACK FOR BLOOD SUGAR CONTROL. ADMINISTER 10 MINUTES BEFORE FOOD DIRECTED. REFRIGERATE UN-OPENED PENS. DISCARD CARTRIDGE 28 DAYS AFTER OPENING. PLUS CORRECTION 30 Mar 01, 2021 [id number] ELEUTERIO [facility] [place] [facility] INSULIN,ASPART,HUMAN 100U/ML,NOVOLOG,FLEXPEN,3ML Discontinue d INJECT 20 UNITS SUBCUTANEOUSLY BEFORE BREAKFAST AND INJECT 20 UNITS BEFORE LUNCH AND INJECT 24 UNITS BEFORE SUPPER AND INJECT 24 UNITS SNACK FOR BLOOD SUGAR CONTROL. ADMINISTER 10 MINUTES BEFORE FOOD DIRECTED. REFRIGERATE UN-OPENED PENS. DISCARD CARTRIDGE 28 DAYS AFTER OPENING. PLUS CORRECTION 30 Jan 26, 2021 [id number] Jan 28, [address] [facility] [place] [facility] INSULIN,ASPART,HUMAN 100U/ML,NOVOLOG,FLEXPEN,3ML Discontinue d INJECT 20 UNITS SUBCUTANEOUSLY BEFORE MEALS FOR BLOOD SUGAR CONTROL. ADMINISTER 10 MINUTES BEFORE FOOD DIRECTED. REFRIGERATE UN-OPENED PENS. DISCARD CARTRIDGE 28 DAYS AFTER OPENING. PLUS CORRECTION FOR BLOOD SUGAR CONTROL. ADMINISTER 10 MINUTES BEFORE FOOD DIRECTED. REFRIGERATE UN-OPENED PENS. DISCARD CARTRIDGE 28 DAYS AFTER OPENING. PLUS CORRECTION 30 Nov 16, 2020 [id number] Nov 16 E[facility]UTERIO [facility] [place] [facility] INSULIN,ASPART,HUMAN 100U/ML,NOVOLOG,FLEXPEN,3ML Discontinue d INJECT 15 UNITS SUBCUTANEOUSLY EVERY MORNING BEFORE MEAL AND INJECT 15 UNITS WITH LUNCH AND INJECT 15 UNITS WITH SUPPER AND INJECT 20 UNITS WITH SNACK FOR BLOOD SUGAR CONTROL. ADMINISTER 10 MINUTES BEFORE FOOD DIRECTED. REFRIGERATE UN-OPENED PENS. DISCARD CARTRIDGE 28 DAYS AFTER OPENING. Dec 22, 2019 [id number] Oct 12, 2019 ELEUTERIO [facility] [facility] [place] [facility] INSULIN,GLARGINE,HUMAN 100 UNIT/ML INJ,SOLOSTAR,3ML Active INJECT 50 UNITS SUBCUTANEOUSLY EVERY MORNING FOR BLOOD SUGAR CONTROL. ADMINISTER AT SAME TIME EACH DAY DIRECTED. DISCARD ANY OPEN CARTRIDGE AFTER 28 DAYS. Sep 23, 2020 [id number] Jan 28, 2020 ELEUTERIO [facility] [place] [facility] INSULIN,GLARGINE,HUMAN 100 UNIT/ML INJ,SOLOSTAR,3ML Disconti nued INJECT 45 UNITS SUBCUTANEOUSLY EVERY MORNING FOR BLOOD SUGAR CONTROL. ADMINISTER AT SAME TIME EACH DAY DIRECTED. DISCARD ANY OPEN CARTRIDGE AFTER 28 DAYS. Oct 23, 2019 [id number] Aug 30, 2019 ELEUTERIO [facility] [place] [facility] LACTOBACILLUS ACIDOPHILUS TAB,CHEWABLE Non-VA CHEW ONE TABLET BY MOUTH ONCE A DAY Non-VA Documented by: MEGAN HAWK nted at: [facility] [place] [facility] LANCET,SOFTCLIX Active USE LANCET 5 TIME S A DAY FOR TESTING BLOOD GLUCOSE DIRECTED 500 Dec 28, 2020 [id number] March 19, 2020 ELEUTERIO [facility] [place] [facility] LANCET,SOFTCLIX Discontinued USE LANCET 5 TIME S A DAY FOR TESTING BLOOD GLUCOSE DIRECTED 500 Jan 11, 2020 [id number] Sep 29, 2019 [place] ITISELEUTERIO [facility] [place] [facility] MAGNESIUM OXIDE 400MG TAB Non-VA TAKE ONE TABLET BY MOUTH ONCE A DAY Non-VA Documented by: MEGAN HAWK nted at: [facility] [place] [facility] METOPROLOL SUCCINATE 200MG TAB,SA TAKE O NE-HALF TABLET BY MOUTH EVERY EVENING FOR HEART/BLOOD PRESSURE. SWALLOW WHOLE, DO NOT CRUSH OR CHEW (TABLETS MAY BE CUT IN HALF). 45 March 18, 2020 [id number] Dec 28, 2019 STANISLAV HAMMER [facility] NEEDLE 22G 1.5IN USE NEEDLE FOR EVERY MONTH 1 Nov 12, 2019 [id number] Feb 07, 2019 ADELAIDA CLIFFORD [facility] [place] [facility] NEEDLE,PEN 31G,5MM Discontinued USE NEEDLE SUBCUTANE OUSLY 5 TIMES A DAY - THIS IS A SINGLE USE NEEDLE AND SHOULD BE DISCARDED AFTER USE 500 Dec 21, 2019 [id number] Sep 28, 2019 ELEUTERIO [facility] [place] [facility] POTASSIUM CHLORIDE 10MEQ TAB,SA Active TAKE TWO TABLETS BY MOUTH TWO TIMES A DAY FOR POTASSIUM SUPPLEMENTATIONTAKE WITH FOOD 360 Dec 12, 2020 [id number] Mar 02, 2020 [facility], [facility] 15 POTASSIUM CHLORIDE 10MEQ TAB,SA Discontinued TAKE ONE TABLET BY MOUTH THREE TIMES A DAY WITH MEALS FOR POTASSIUM SUPPLEMENTATIONTAKE WITH FOOD 180 March 16, 2020 [id number] Nov 29, 2019 BALELEUTERIO KONG [facility] [place] [facility] POTASSIUM CHLORIDE 10MEQ TAB,SA Discontinued TAKE ONE TABLET BY MOUTH THREE TIMES A DAY WITH MEALS FOR POTASSIUM SUPPLEMENTATIONTAKE WITH FOOD 180 May 26, 2019 [id number] Jan 24, 2019 [facility] [place] [facility] SYRINGE 2.5-3ML/NDL 25G 1IN Active USE 1 SYRINGE EVERY MONTH 3 Feb 21, 2021 [id number] March 20, 2020 [facility] SYRINGE 2.5-3ML/NDL 25G 1IN Discontinued USE 1 SYRINGE EVERY Thu 3 March 18, 2020 [id number] Dec 21, 2019 [facility] TESTOSTERONE CYPIONATE 200MG/ML INJ,1ML (IN OIL) Active INJECT 200 MG (1 ML) INTRAMUSCULARLY EVERY MONTH FOR HORMONE REPLACEMENT 1 May 18, 2020 [id number] April 06, 2020 ADELAIDA CLIFFORD [facility] [place] [facility] TESTOSTERONE CYPIONATE 200MG/ML INJ,1ML (IN OIL) Discontinue d INJECT 200 MG (1 ML) INTRAMUSCULARLY EVERY MONTH FOR HORMONE REPLACEMENT March 25, 2020 [id number] Oct 25, 2019 ADELAIDA CLIFFORD [facility] [place] [facility] TESTOSTERONE CYPIONATE 200MG/ML INJ,1ML (IN OIL) Discontinue d INJECT 200 MG (1 ML) INTRAMUSCULARLY EVERY MONTH FOR HORMONE REPLACEMENT 1 Nov 06, 2019 [id number] Sep 25, 2019 ADELAIDA CLIFFORD [facility] [place] [facility] TESTOSTERONE CYPIONATE 200MG/ML INJ,1ML (IN OIL) Discontinue d INJECT 200 MG (1 ML) INTRAMUSCULARLY EVERY MONTH FOR HORMONE REPLACEMENT 1 May 14, 2019 [id number] Apr 10, 2019 ADELAIDA CLIFFORD [facility] [place] [facility] TRAMADOL HCL 50MG TAB Active TAKE 1 TO 2 TABLET S BY MOUTH EVERY 6 HOURS NEEDED FOR PAIN 180 Jul 21, 2020 [id number] March 30, 2020 [facility], V[facility]N 15 TRAMADOL HCL 50MG TAB Discontinued TAKE 1 TO 2 TABLET S BY MOUTH EVERY 6 HOURS NEEDED FOR PAIN 180 Jun 06, 2020 [id number] Jan 11, 2020 [facility], [facility] 15 TRAMADOL HCL 50MG TAB Discontinued TAKE 1 TO 2 TABLET S BY MOUTH EVERY 6 HOURS NEEDED FOR PAIN 180 Jun 06, 2020 [id number] Dec 06, 2019 [facility] TRAMADOL HCL 50MG TAB Discontinued TAKE 1 TO 2 TABLET S BY MOUTH EVERY 6 HOURS NEEDED FOR PAIN 180 Dec 14, 2019 [id number] Nov 15, 2019 DANTE VALVERDE [facility] [place] [facility] TRAMADOL HCL 50MG TAB Discontinued TAKE 1 TO 2 TABLET S BY MOUTH EVERY 6 HOURS NEEDED FOR PAIN 180 Jul 06, 2019 [id number] May 26, 2019 [facility] [place] [facility] TRIAMCINOLONE ACETONIDE 0.5% CREAM,TOP Active A PPLY SPARINGLY TO AFFECTED AREA ONCE A DAY NEEDED FOR RASH 45 Jul 15, 2020 [id number] April 01 0 THOM CHAMBERS [facility] [place] [facility] TRIAMCINOLONE ACETONIDE 0.5% CREAM,TOP Discontinued A PPLY SPARINGLY TO AFFECTED AREA ONCE A DAY NEEDED FOR RASH 45 Oct 12, 2019 [id number] Jul THOM CHAMBERS [facility] [place] [facility] Problems (Conditions): All historical [...] Source Basal cell carcinoma of scalp Active [id number] THOM CHAMBERS [facility] [place] [facility] Chronic back pain Active [id number] TERRIE CHAMBERS [facility] [place] [facility] Chronic kidney disease stage 3 Active [id number] THOM CHAMBERS [facility] [place] [facility] Constipation Active [id number] THOM CHAMBERS [facility] [place] [facility] Diabetes mellitus Active 64776818 THOM CHAMBERS [facility] [place] [facility] Diabetic neuropathy Active 148768911 Neha CHAMBERS [facility] [place] [facility] Essential hypertension Active 00561113 THOM CHAMBERS [facility] [place] [facility] Hyperlipidemia Active 08570811 THOM CHAMBERS [facility] [place] [facility] Hypogonadism Active 84054011 THOM CHAMBERS [facility] [place] [facility] Sleep apnea Active [id number] TO[facility] CHAMBERS [facility] [place] [facility] Radiology Reports: +/- 30 days of the encounter No Data Provided for This Section Pathology Reports: +/- 30 days of the encounter No Data Provided for This Section Encounter Notes: All associated encounter notes This section contains the clinical notes associated to the Encounter. Date/Time Encounter Note(s) Provider Source Dec 01, 2019 01:41 PM CARE MANAGEMENT NOTE: LOCAL TITLE: EK-PACT CARE MANAGEMENT STANDARD TITLE: CARE MANAGEMENT NOTE DATE OF NOTE: DEC 01, 2019@13:41 ENTRY DATE: DEC 01, 2019@13:41:47 AUTHOR: ALLA NARAYANAN EXP COSIGNER: URGENCY: STATUS: COMPLETED Vet at clinic for lab. Discussed with vet that since he has a [facility] primary care provider, Dr. Lujan, this pcp needs to prescribe all medications including VA meds. Process for VA prescriptions for [facility] providers discussed and handout given. He can take this handout to Dr. Lujan for explanation on process. He was informed that he can use other [place] services, such as lab, but primary care should be directed by his [facility] provider, including consults for other specialities. The Tramadol refill request recently received needs to be ordered by Dr. Lujan with informmation for ordering scheduled drugs is in the handout. He v/u. /noa/ ALLA NARAYANAN RN Signed: 12/01/2019 13:[address] [facility]
--- OUTSIDE RECORDS SUMMARY | 2020-04-18 09:31 | XMS REPORT | Encounter Summary ---
Author Author Department of [facility] SIMI palacio Organization Department of [facility] Address [address] [place] [phone] Phone Unavailable Care Team Providers Care Psychometrist Name Role Phone THOM CHAMBERS PCP Unavailable [...] to Policy Woodard [facility] ([facility] MEDICARE ADVANTAGE MCR ([facility]) Nov 09, 2017 [id number] [phone] SIMI COVARRUBIAS PATIENT [facility] (W[facility]) MEDICARE ADVANTAGE MCR ([facility]) Nov 09, 2017 [id number] [phone] SIMI COVARRUBIAS PATIENT [facility] ([facility]) MEDICARE ADVANTAGE MCR ([facility] Nov 09, 2019 [id number] SIMI COVARRUBIAS PATIENT Selected Encounter This section includes the information on record at NH for the Encounter. Date/Time Encounter Type Encounter Description Reason Provider Source Dec 06, 2019 01:49 PM Outpatient Encounter ADMIN PAT ACTIVTIES ([facility]AS[facility] NCT) [facility] [place] IHE Encounter Template Text not used by [facility] Assessments - Encounter Diagnoses No Data Provided for This Section Plan of Treatment: Future Appointments (+ 6 months) and Future Tests (+/- 45 day s) The Plan of Treatment section includes future care activities for the patient fr om all NH treatment facilities. This section includes future appointments and fu ture orders which are active, pending or scheduled. Future Appointments This section includes appointments that were scheduled t o occur 6 months from the date of the Encounter, up to a maximum of 20 appointme nts. The data comes from all NH treatment facilities. Appointment Date/Time Appointment Type Appointment Facili ty Name Dec 14, 2019 03:00 PM AMBULATORY - NONE [facility] [place] [facility] Dec 15, 2019 01:00 PM AMBULATORY - NONE [facility] Jan 12, 2020 10:00 AM AMBULATORY - NONE [facility] Jan 26, 2020 03:00 PM AMBULATORY - NONE [facility] [place] [facility] Feb 29, 2020 02:30 PM AMBULATORY - NONE [facility] [place] [facility] March 20, 2020 08:00 AM AMBULATORY - MEDICINE [facility] March 28, 2020 11:30 AM AMBULATORY - NONE [facility] [place] [facility] Apr 19, 2020 11:00 AM AMBULATORY - NONE [facility] [place] [facility] Apr 26, 2020 10:45 AM AMBULATORY - NONE [facility], [facility] 15 Surgical Procedures: All associated to the encounter No Data Provided for This Section Lab Results: +/- 30 days of the encounter This section includes the Chemistry and Hematology Lab R esults on record with NH for the patient. Radiology Reports and Pathology Report s are provided separately, in subsequent sections. Lab Results This section contains the Chemistry/Hematology Results anushka t were resulted 30 days before or 30 days after the date of the Encounter. Date/Time Source Result Type Result - Unit Interpretation Reference Range Comment Dec 01, 2019 11:09 AM [facility] CBC & DIFF Specimen Type: BLOOD [...] 0.5 % Dec 01, 2019 11:09 AM [facility] RENAL FUNCTION PANEL Specimen Type: PLASMA [...] EGFR 46.5 Dec 01, 2019 11:09 AM [facility] URINALYSIS Specimen Type: URINE No comment [...] RBC/HPF 0-2 Dec 01, 2019 11:09 AM [facility] MAGNESIUM (mg/dL) Specimen Type: PLASMA No comment entered. MAGNESIUM (mg/dL) 2.4 mg/dl 1.6-2.6 Dec 01, 2019 11:09 AM [facility] HEPATIC FUNCTION PANE L Specimen Type: PLASMA No comment entered. PROTEIN,TOTAL 7.2 g/dL 6.0-8.6 ALBUMIN 4.5 g/dl 3.4-5.0 TOTAL BILIRUBIN 0.7 mg/dL 0.2-1.2 DIRECT BILIRUBIN 0.30 mg/dL 0-0.5 ASPARTATE TRANSAMINASE 29 U/L 5-34 ALANINE AMINOTRANSFERASE 20 U/L 8-40 ALKALINE PHOSPHATASE 98 U/L 40-150 Dec 01, 2019 11:09 AM [facility] MICROALBUMIN (CO,EK) Specimen Type: URINE No comment entered. *MICROALBUMIN(CONC) 116.8 mg/dL - *MICROALBUMIN(SPOT) 651.8 mcg/mg cr HH 0-29 *CREATININE mg/dL 179.2 mg/dl Not Avail. Dec 01, 2019 11:09 AM [facility] COMPREHENSIVE METABOL IC PANEL Specimen Type: [...] EGFR 46.5 Dec 01, 2019 11:09 AM [facility] TRAMADOL SCRN W/REFLE X,URINE Specimen Type: URINE Comment: normalcy status - Abnormal Tramadol Screen This test was performed using a forensic kit that is intended for the qualitative and semi- quantitative determination of Tramadol in human urine and has not been cleared or approved by the FDA for diagnostic purposes. The analytical performance characteristics of this test have been determined by [facility]. This test should not be used for diagnosis without confirmation by other, more specific, confirmatory analytical methodologies. Test performed by [employer] [address] [place] [address] [employer] Advisor: Baron Domingo M.D.,Ph.D. Test Reported by [facility], [facility] [place], [address] [place], [place] Lawrence Mckeon M.D., Ph.D., Director of Laboratories , CLIA [id number] O-Desmethyltramadol This test was developed and its analytical performance characteristics have been determined by [facility]. It has not been cleared or approved by the US Food and Drug Administration. This assay has been validated pursuant to the CLIA regulations and is used for clinical purposes. *TRAMADOL SCREEN, URINE Positive Negati ve *TRAMADOL QUANT, URINE > 5000 ng/mL H < 10 0 *DESMETHYLTRAMADOL, URINE >5000 ng/mL H < 100 Dec 01, 2019 11:09 AM [facility] DRUGS OF ABUSE SCREEN Specimen Type: URINE No comment entered. AMPHETAMINE NEG Negative BARBITURATES NEG Negative BENZODIAZEPINES NEG Negative CANNABINOIDS NEG Negative COCAINE NEG Negative OPIATES NEG Negative PHENCYCLIDINE(PCP) NEG Negative *CREATININE,DRUG SCR 177.22 mg/dL METHADONE(UDS) NEG Negative OXYCODONE (URINE) NEG Negative ALCOHOL-URINE,RANDOM (SOSA,WI,EK) NEG mg/dL <10 Dec 01, 2019 11:09 AM [facility] URINALYSIS Specimen Type: URINE No comment [...] RBC/HPF 0-2 Nov 10, 2019 11:[address] [facility] [place] [facility] HEMOGLOBIN A1C Specimen Type: BLOOD No comment entered. HEMOGLOBIN A1C 10.6 % H 4.0-6.0 Nov 10, 2019 11:[address] [facility] BASIC METABOLIC PANEL Specimen Type: PLASMA No comment entered. *CREATININE 1.60 mg/dL H 0.7-1.3 UREA NITROGEN mg/dL 24 mg/dL 9-25 GLUCOSE 226 mg/dL H 72-99 SODIUM 140 mEq/L 136-145 POTASSIUM 3.9 mEq/L 3.5-5.0 CALCIUM (mg/dL) 9.3 mg/dL 8.4-10.4 CHLORIDE 101 mEq/L 98-107 CO2 29 mEq/L 22-31 EGFR 42.6 Nov 10, 2019 11:[address] [facility] TESTOSTERONE (SOSA ,WI,EK) Specimen Type: SERUM No comment entered. TESTOSTERONE (SOSA,WI,EK) 371 ng/dL 221-87 1 Nov 10, 2019 11:[address] [facility] CBC & DIFF Specimen Type: BLOOD No [...] 0.3 % Nov 10, 2019 11:[address] [facility] [place] [facility] PROSTATIC SP ECIFIC ANTIGEN(TOTAL) Sp [...] patient. The data comes from a ll NH treatment facilities. It does not list Allergies/ADRs that were removed or entered in error. Some allergies/ADRs may be reported in t Immunization section. Allergen Event Date Event Type Reaction(s) Severity Source LISINOPRIL Dec 01, 2017 Propensity to adverse reactions to drug (disorder) Renal impairment [facility] 15 METFORMIN Dec 01, 2017 Propensity to adverse reactions to drug (disorder) Renal impairment [facility] 15 Medications: VA dispensed (-15 months) and Non-VA Documented (Obtained Outside V A) Section Date Range: 1) prescriptions processed by a VA pharmacy in the last 15 m [facility], and 2) all medications recorded in the NH medical record as "non-VA medic ations". Pharmacy terms refer to NH pharmacy's work on prescriptions. VA patient s are advised to take their medications as instructed by their health care team. The data comes from all [place] treatment facilities. Glossary of Pharmacy Terms:Active = A prescription that can be filled at the local NH pharmacy.Active: On Hold = An active prescription that will not be filled until pharmacy resolves the issue.Active: Susp = An active prescription that is not scheduled to be filled yet.Clinic Order = A medication received during a visit to a NH clinic or emergency department (currently not available).Discontinued [...] may be a prescription from either the NH or other providers that was filled outside the NH. Or, it may be an over the [...] TIMES A DAY 400 Sep 12, 2020 [id number] Feb 29, 2020 BALDILANELEUTERIO Laron [facility] ACCU-CHEK ROSINA PLUS (GLUCOSE) TEST STRIP Discontinued USE 1 STRIP FOR TESTING FOUR TIMES A DAY 400 Sep 15, 2019 [id number] Jun 13, 2019 BALBRYCEIT ISELEUTERIO [facility] ALCOHOL PREP PAD Discontinued USE 1 PAD ON SKIN FOUR TIMES A DAY 40 0 Apr 25, 2020 [id number] Nov 29, 2019 BALELEUTERIO KONG [facility] [place] [facility] ALCOHOL PREP PAD Discontinued USE 1 PAD ON SKIN FOUR TIMES A DAY 40 0 Sep 15, 2019 [id number] Apr 18, 2019 ELEUTERIO LIVINGSTON [facility] ALLOPURINOL 100MG TAB Active TAKE ONE TABLET BY MOUTH ONCE A DAY FOR GOUT. TAKE WITH PLENTY OF WATER 90 Sep 23, 2020 [id number] Mar 05, [address] [facility] [place] [facility] ALLOPURINOL 100MG TAB Discontinued TAKE ONE TABLET BY MOUTH ONCE A DAY FOR GOUT. TAKE WITH PLENTY OF WATER 90 Dec 30, 2019 [id number] Sep 17, [address] [facility] [place] [facility] ALOGLIPTIN 12.5MG TAB Active TAKE ONE TABLET BY MOUTH O NCE A DAY FOR DIABETES 90 Sep 12, 2020 [id number] Mar 04, 2020 ELEUTERIO LIVINGSTON [facility] [place] [facility] ALOGLIPTIN 12.5MG TAB Discontinued TAKE ONE TABLET BY MOUTH ONCE A DAY FOR DIABETES 90 Dec 22, 2019 [id number] Jun 18, [address] [facility] [place] [facility] AMLODIPINE BESYLATE 10MG TAB Discontinued TAKE ONE TA BLET BY MOUTH EVERY MORNING FOR HEART/BLOOD PRESSURE 90 Jun 10, 2019 [id number] Feb 25, [address] [facility] [place] [facility] AMLODIPINE BESYLATE 10MG TAB TAKE ONE TA BLET BY MOUTH EVERY MORNING FOR HEART/BLOOD PRESSURE 90 Apr 12, 2020 [id number] Feb 10, 2020 SILVINA CHAMBERS [facility] ASPIRIN 81MG TAB,CHEWABLE Non-VA CHEW ONE TABLET BY MOUTH ONCE A DAY Non-VA Documented by: MEGAN HAWK nted at: [facility] ATORVASTATIN CA 20MG TAB Active TAKE ONE TABLET BY MOUTH ONCE A DAY FOR CHOLESTEROL. REPORT ANY UNEXPLAINED MUSCLE PAIN OR WEAKNESS TO YOUR DOCTOR. 90 Jan 02, 2021 [id number] March 24, 2020 [facility], [facility] 15 ATORVASTATIN CA 40MG TAB Discontinued TAKE ONE-HALF T ABLET BY MOUTH AT BEDTIME FOR CHOLESTEROL. REPORT ANY UNEXPLAINED MUSCLE PAIN OR WEAKNESS TO YOUR DOCTOR. 45 Jul 15, 2020 [id number] Oct 14, [address] [facility] [place] [facility] ATORVASTATIN CA 40MG TAB Discontinued TAKE ONE-HALF T ABLET BY MOUTH AT BEDTIME FOR CHOLESTEROL. REPORT ANY UNEXPLAINED MUSCLE PAIN OR WEAKNESS TO YOUR DOCTOR. 45 Oct 12, 2019 [id number] Jul 16, [address] [facility] CALCIUM CARBONATE 500MG TAB,CHEWABLE Non-VA CHEW ONE TABLET BY MOUTH PRN Non-VA Documented by: THOM CHAMBERS nted at: [facility] CHLORTHALIDONE 25MG TAB Active TAKE ONE TABLET BY MOUTH ONCE A DAY 90 Jul 01, 2020 [id number] March 19, [address] [facility] [place] [facility] CHLORTHALIDONE 25MG TAB Discontinued TAKE ONE TABLET BY MOUTH ONCE A DAY 90 Jun 16, 2019 [id number] Apr 12, [address] [facility] [place] [facility] CHOLECALCIFEROL 1000UNT TAB Non-VA TAKE ONE TABLET BY MOUTH EVERY OTHER DAY Non-VA Docume nted by: MEGAN HAWK nted at: [facility] [place] CYANOCOBALAMIN 1000MCG/ML INJ Active INJECT 100 0 MCG (1 ML) INTRAMUSCULARLY EVERY MONTH FOR B12 SUPPLEMENTATION. 3 Nov 03, 2020 [id number] Apr 23, [address] [facility] [place] [facility] CYANOCOBALAMIN 1000MCG/ML INJ Discontinued INJECT 100 0 MCG (1 ML) INTRAMUSCULARLY EVERY MONTH FOR B12 SUPPLEMENTATION. 3 Nov 17 0 [id number] Aug 07, 2019 [facility] [place] [facility] DIPHENHYDRAMINE HCL 25MG CAP Non-VA TAKE 1 CAPSULE BY MOUTH PRN Non-VA Documented by: THOM CHAMBERS Docume nted at: [facility] DOCUSATE NA 100MG CAP No n-VA TAKE 2 CAPSULES BY MOUTH ONCE A DAY Non-VA Documented by: THOM CHAMBERS Docume nted at: [facility] FISH OIL 1000MG (500MG DHA/EPA) CAP,ORAL Non-VA TAKE 1 CAPSULE BY MOUTH ONCE A DAY Non-VA Documented by: MEGAN HAWK Docume nted at: [facility] GABAPENTIN 100MG CAP Active TAKE 1 CAPSULE BY M OUTH EVERY MORNING AND TAKE 1 CAPSULE BY MOUTH AT NOON AND TAKE 2 CAPSULES BY MOUTH AT BEDTIME 360 Jul 06, 2020 [id number] March 31, 2020 ELEUTERIO LIVINGSTON [facility] [place] [facility] GLUCAGON 1MG/GABRIELLA INJ,EMERGENCY KIT INJEC T 1MG SUBCUTANEOUSLY NEEDED FOR SEVERE HYPOGLYCEMIA 1 Nov 30, 2019 [id number] Nov 03, [address] [facility] [place] [facility] INSULIN,ASPART,HUMAN 100U/ML,NOVOLOG,FLEXPEN,3ML Active: On Hold INJECT 20 UNITS SUBCUTANEOUSLY BEFORE BREAKFAST AND INJECT 20 UNITS BEFORE LUNCH AND INJECT 26 UNITS BEFORE SUPPER AND INJECT 24 UNITS SNACK FOR BLOOD SUGAR CONTROL. ADMINISTER 10 MINUTES BEFORE FOOD DIRECTED. REFRIGERATE UN-OPENED PENS. DISCARD CARTRIDGE 28 DAYS AFTER OPENING. PLUS CORRECTION 30 Mar 01, [id number] [facility] [place] [facility] INSULIN,ASPART,HUMAN 100U/ML,NOVOLOG,FLEXPEN,3ML Discontinue d INJECT 20 UNITS SUBCUTANEOUSLY BEFORE BREAKFAST AND INJECT 20 UNITS BEFORE LUNCH AND INJECT 24 UNITS BEFORE SUPPER AND INJECT 24 UNITS SNACK FOR BLOOD SUGAR CONTROL. ADMINISTER 10 MINUTES BEFORE FOOD DIRECTED. REFRIGERATE UN-OPENED PENS. DISCARD CARTRIDGE 28 DAYS AFTER OPENING. PLUS CORRECTION 30 Jan 26, 2021 [id number] Jan 28, 2020 ELEUTERIO LIVINGSTON [facility] [place] [facility] INSULIN,ASPART,HUMAN 100U/ML,NOVOLOG,FLEXPEN,3ML Discontinue d INJECT 20 UNITS SUBCUTANEOUSLY BEFORE MEALS FOR BLOOD SUGAR CONTROL. ADMINISTER 10 MINUTES BEFORE FOOD DIRECTED. REFRIGERATE UN-OPENED PENS. DISCARD CARTRIDGE 28 DAYS AFTER OPENING. PLUS CORRECTION FOR BLOOD SUGAR CONTROL. ADMINISTER 10 MINUTES BEFORE FOOD DIRECTED. REFRIGERATE UN-OPENED PENS. DISCARD CARTRIDGE 28 DAYS AFTER OPENING. PLUS CORRECTION 30 Nov 16, 2020 [id number] Nov [address] [facility] [place] [facility] INSULIN,ASPART,HUMAN 100U/ML,NOVOLOG,FLEXPEN,3ML Discontinue d INJECT 15 UNITS SUBCUTANEOUSLY EVERY MORNING BEFORE MEAL AND INJECT 15 UNITS WITH LUNCH AND INJECT 15 UNITS WITH SUPPER AND INJECT 20 UNITS WITH SNACK FOR BLOOD SUGAR CONTROL. ADMINISTER 10 MINUTES BEFORE FOOD DIRECTED. REFRIGERATE UN-OPENED PENS. DISCARD CARTRIDGE 28 DAYS AFTER OPENING. Dec 22, 2019 [id number] Oct 12, [address] [facility] [place] [facility] INSULIN,GLARGINE,HUMAN 100 UNIT/ML INJ,SOLOSTAR,3ML Active INJECT 50 UNITS SUBCUTANEOUSLY EVERY MORNING FOR BLOOD SUGAR CONTROL. ADMINISTER AT SAME TIME EACH DAY DIRECTED. DISCARD ANY OPEN CARTRIDGE AFTER 28 DAYS. Sep 23, 2020 [id number] Jan 28, [address] [facility] [place] [facility] INSULIN,GLARGINE,HUMAN 100 UNIT/ML INJ,SOLOSTAR,3ML Disconti nued INJECT 45 UNITS SUBCUTANEOUSLY EVERY MORNING FOR BLOOD SUGAR CONTROL. ADMINISTER AT SAME TIME EACH DAY DIRECTED. DISCARD ANY OPEN CARTRIDGE AFTER 28 DAYS. Oct 23, 2019 [id number] Aug 30, [address] [facility] [place] [facility] LACTOBACILLUS ACIDOPHILUS TAB,CHEWABLE Non-VA CHEW ONE TABLET BY MOUTH ONCE A DAY Non-VA Documented by: MEGAN HAWK nted at: [facility] [place] LANCET,SOFTCLIX Active USE LANCET 5 TIME S A DAY FOR TESTING BLOOD GLUCOSE DIRECTED 500 Dec 28, 2020 [id number] March 19, [address] [facility] [place] [facility] LANCET,SOFTCLIX Discontinued USE LANCET 5 TIME S A DAY FOR TESTING BLOOD GLUCOSE DIRECTED 500 Jan 11, 2020 [id number] Sep 29, [address] [facility] [place] [facility] MAGNESIUM OXIDE 400MG TAB Non-VA TAKE ONE TABLET BY MOUTH ONCE A DAY Non-VA Documented by: MEGAN HAWK nted at: [facility] METOPROLOL SUCCINATE 200MG TAB,SA TAKE O NE-HALF TABLET BY MOUTH EVERY EVENING FOR HEART/BLOOD PRESSURE. SWALLOW WHOLE, DO NOT CRUSH OR CHEW (TABLETS MAY BE CUT IN HALF). 45 March 18, 2020 [id number] Dec 28, 2019 STANISLAV HAMMER [facility] NEEDLE 22G 1.5IN USE NEEDLE FOR EVERY MONTH 1 Nov 12, 2019 [id number] Feb 07, [address] [facility] [place] [facility] NEEDLE,PEN 31G,5MM Discontinued USE NEEDLE SUBCUTANE OUSLY 5 TIMES A DAY - THIS IS A SINGLE USE NEEDLE AND SHOULD BE DISCARDED AFTER USE 500 Dec 21, 2019 [id number] Sep 28, [address] [facility] [place] [facility] POTASSIUM CHLORIDE 10MEQ TAB,SA Active TAKE TWO TABLETS BY MOUTH TWO TIMES A DAY FOR POTASSIUM SUPPLEMENTATIONTAKE WITH FOOD 360 Dec 12, 2020 [id number] Mar 02, 2020 [facility] POTASSIUM CHLORIDE 10MEQ TAB,SA Discontinued TAKE ONE TABLET BY MOUTH THREE TIMES A DAY WITH MEALS FOR POTASSIUM SUPPLEMENTATIONTAKE WITH FOOD 180 March 16, 2020 [id number] Nov 29, 2019 BALELEUTERIO KONG [facility] [place] [facility] POTASSIUM CHLORIDE 10MEQ TAB,SA Discontinued TAKE ONE TABLET BY MOUTH THREE TIMES A DAY WITH MEALS FOR POTASSIUM SUPPLEMENTATIONTAKE WITH FOOD 180 May 26, 2019 [id number] Jan 24, 2019 [facility] [place] [facility] SYRINGE 2.5-3ML/NDL 25G 1IN Active USE 1 SYRINGE EVERY MONTH 3 Feb 21, 2021 [id number] March 20, 2020 [facility] SYRINGE 2.5-3ML/NDL 25G 1IN Discontinued USE 1 SYRINGE EVERY Thu 3 March 18, 2020 [id number] Dec 21, 2019 [facility] TESTOSTERONE CYPIONATE 200MG/ML INJ,1ML (IN OIL) Active INJECT 200 MG (1 ML) INTRAMUSCULARLY EVERY MONTH FOR HORMONE REPLACEMENT 1 May 18, 2020 [id number] April 06, [address] [facility] [place] [facility] TESTOSTERONE CYPIONATE 200MG/ML INJ,1ML (IN OIL) Discontinue d INJECT 200 MG (1 ML) INTRAMUSCULARLY EVERY MONTH FOR HORMONE REPLACEMENT March 25, 2020 [id number] Oct 25, [address] [facility] [place] [facility] TESTOSTERONE CYPIONATE 200MG/ML INJ,1ML (IN OIL) Discontinue d INJECT 200 MG (1 ML) INTRAMUSCULARLY EVERY MONTH FOR HORMONE REPLACEMENT 1 Nov 06, 2019 [id number] Sep 25, [address] [facility] [place] [facility] TESTOSTERONE CYPIONATE 200MG/ML INJ,1ML (IN OIL) Discontinue d INJECT 200 MG (1 ML) INTRAMUSCULARLY EVERY MONTH FOR HORMONE REPLACEMENT 1 May 14, 2019 [id number] Apr 10, [address] [facility] [place] [facility] TRAMADOL HCL 50MG TAB Active TAKE 1 TO 2 TABLET S BY MOUTH EVERY 6 HOURS NEEDED FOR PAIN 180 Jul 21, 2020 [id number] March 30, 2020 [facility] 15 TRAMADOL HCL 50MG TAB Discontinued TAKE 1 TO 2 TABLET S BY MOUTH EVERY 6 HOURS NEEDED FOR PAIN 180 Jun 06, 2020 [id number] Jan 11, 2020 [facility] 15 TRAMADOL HCL 50MG TAB Discontinued TAKE 1 TO 2 TABLET S BY MOUTH EVERY 6 HOURS NEEDED FOR PAIN 180 Jun 06, 2020 [id number] Dec 06, 2019 [facility] TRAMADOL HCL 50MG TAB Discontinued TAKE 1 TO 2 TABLET S BY MOUTH EVERY 6 HOURS NEEDED FOR PAIN 180 Dec 14, 2019 [id number] Nov 15, [address] [facility] [place] [facility] TRAMADOL HCL 50MG TAB Discontinued TAKE 1 TO 2 TABLET S BY MOUTH EVERY 6 HOURS NEEDED FOR PAIN 180 Jul 06, 2019 [id number] May 26, 2019 [facility] [place] [facility] TRIAMCINOLONE ACETONIDE 0.5% CREAM,TOP Active A PPLY SPARINGLY TO AFFECTED AREA ONCE A DAY NEEDED FOR RASH 45 Jul 15, 2020 [id number] April [address] [facility] [place] [facility] TRIAMCINOLONE ACETONIDE 0.5% CREAM,TOP Discontinued A PPLY SPARINGLY TO AFFECTED AREA ONCE A DAY NEEDED FOR RASH 45 Oct 12, 2019 [id number] Jul [address]OM [address] [facility] [place] [facility] Problems (Conditions): All historical and current Section Date Range: From patient's date of to the date document was create d. This section includes a list of Problems (Conditions) know n to [facility] for the patient. It includes both active and inacti ve problems (conditions). The data comes from all [place] treatment facilities. Problem Status Problem Code Date of Onset Date of Resolution Comm ent(s) Provider Source Basal cell carcinoma of scalp Active [id number] THOM CHAMBERS [facility] [place] [facility] Chronic back pain Active [id number] TERRIE CHAMBERS [facility] [place] [facility] Chronic kidney disease stage 3 Active [id number] THOM CHAMBERS [facility] [place] [facility] Constipation Active [id number] THOM CHAMBERS [facility] [place] [facility] Diabetes mellitus Active [id number] THOM CHAMBERS [facility] [place] [facility] Diabetic neuropathy Active [id number] Neha CHAMBERS [facility] [place] [facility] Essential hypertension Active [id number] THOM CHAMBERS [facility] [place] [facility] Hyperlipidemia Active 62614193 THOM CHAMBERS [facility] [place] [facility] Hypogonadism Active 45077508 THOM CHAMBERS [facility] [place] [facility] Sleep apnea Active [id number] THOM CHAMBERS [facility] [place] [facility] Radiology Reports: +/- 30 days of the encounter No Data Provided for This Section Pathology Reports: +/- 30 days of the encounter No Data Provided for This Section Encounter Notes: All associated encounter notes This section contains the clinical notes associated to the Encounter. Date/Time Encounter Note(s) Provider Source Dec 06, 2019 01:49 PM PHARMACY NOTE: LOCAL TITLE: EK-PHARMACY NOTE/CONSULT STANDARD TITLE: PHARMACY NOTE DATE OF NOTE: DEC 06, 2019@13:49 ENTRY DATE: DEC 06, 2019@13:49:14 AUTHOR: REGGIE LIVINGSTON COSIGNER: URGENCY: STATUS: [facility] for Tramadol from [facility] Dr. Lujan was received. Reyes accidentally deleted this prescription before it was filled and mailed to [place]. Pharmacy team was notified of accidental deletion and will be re- entering prescription for mail out tomorrow. /noa/ ELEUTERIO LIVINGSTON Clinical Nurse Paralegal Signed: 12/06/2019 13:51 Receipt Acknowledged By: * AWAITING SIGNATURE * ALLA NARAYANAN SHANNON L [facility]
--- OUTSIDE RECORDS SUMMARY | 2020-04-18 09:32 | XMS REPORT | Encounter Summary ---
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 Name Role Phone THOM CHAMBERS PCP Unavailable [...] to Policy [facility] ([employer] [facility]) MEDICARE ADVANTAGE MCR ([employer] [facility]) Nov 09, 2017 [id number] [phone] SIMI COVARRUBIAS PATIENT [facility] (WNR) MEDICARE ADVANTAGE M[facility] ([employer] [facility]) Nov 09, 2017 [id number] [phone] SIMI COVARRUBIAS PATIENT [facility] ([employer] [facility]) MEDICARE ADVANTAGE MCR ([employer] [facility]) Nov 09, 2019 [id number] SIMI COVARRUBIAS PATIENT Selected Encounter This section includes the information on record at NH for the Encounter. Date/Time Encounter Type Encounter Description Reason Provider Source Jan 26, 2020 09:40 AM Outpatient Encounter ADMIN PAT ACTIVTIES (MASNO NCT) [facility] [place] IHE Encounter Template [...] The data comes from all [place] treatment [facility]. Appointment Date/Time Appointment Type Appointment Facili ty Name Feb 29, 2020 02:30 PM AMBULATORY - NONE [facility] [place] March 20, 2020 08:00 AM AMBULATORY - MEDICINE [facility] March 28, 2020 11:30 AM AMBULATORY - NONE [facility] [place] Apr 19, 2020 11:00 AM AMBULATORY - NONE [facility] [place] [facility] Apr 26, 2020 10:45 AM AMBULATORY - NONE [facility], [facility] 15 Surgical Procedures: All associated to the encounter No Data Provided for This Section Lab Results: +/- 30 days of the encounter No Data Provided for This Section Vital Signs: All taken on the encounter [...] adverse reactions to drug (disorder) Renal impairment [facility] 15 MET[place]MIN Dec 01, 2017 Propensity to adverse reactions to drug (disorder) Renal impairment [facility] 15 Medications: VA dispensed (-15 months) and Non-VA Documented (Obtained Outside A) Section Date Range: 1) prescriptions processed by a [place] pharmacy in the last 15 m ont, and 2) all medications recorded in the [place] medical record as "non-VA medic ations". Pharmacy terms refer to VA pharmacy's work on prescriptions. VA patient s [...] TIMES A DAY 400 Sep 12, 2020 [id number] Feb 29, 2020 ELEUTERIO LIVINGSTON [facility] ACCU-CHEK ROSINA PLUS (GLUCOSE) TEST STRIP Discontinued USE 1 STRIP FOR TESTING FOUR TIMES A DAY 400 Sep 15, 2019 [id number] Jun 13, 2019 BALTRUSAIT ISELEUTERIO [facility] ALCOHOL PREP PAD Discontinued USE 1 PAD ON SKIN FOUR TIMES A DAY 40 0 Apr 25, 2020 [id number] Nov 29, 2019 BALELEUTERIO KONG [facility] [place] ALCOHOL PREP PAD Discontinued USE 1 PAD ON SKIN FOUR TIMES A DAY 40 0 Sep 15, 2019 [id number] Apr 18, 2019 ELEUTERIO LIVINGSTON [facility] ALLOPURINOL 100MG TAB Active TAKE ONE TABLET BY MOUTH ONCE A DAY FOR GOUT. TAKE WITH PLENTY OF WATER 90 Sep 23, 2020 [id number] Mar 05, 2020 SILVINA CHAMBERS [facility] [place] [facility] ALLOPURINOL 100MG TAB Discontinued TAKE ONE TABLET BY MOUTH ONCE A DAY FOR GOUT. TAKE WITH PLENTY OF WATER 90 Dec 30, 2019 [id number] Sep 17, 2019 TERRIE SHARPEA [facility] [place] [facility] ALOGLIPTIN 12.5MG TAB Active TAKE ONE TABLET BY MOUTH O NCE A DAY FOR DIABETES 90 Sep 12, 2020 [id number] Mar 04, 2020 BALTRUSAITIS,ELEUTERIO Larry ZAK [facility] [place] ALOGLIPTIN 12.5MG TAB Discontinued TAKE ONE TABLET BY MOUTH ONCE A DAY FOR DIABETES 90 Dec 22, 2019 [id number] Jun 18, 2019 BALTRUSAITIS,ELEUTERIO Larry [facility] [place] AMLODIPINE BESYLATE 10MG TAB Discontinued TAKE ONE TA BLET BY MOUTH EVERY MORNING FOR HEART/BLOOD PRESSURE 90 Jun 10, 2019 [id number] Feb 25, 2019 TIPMELODY HAWKINSBY Laron [facility] [place] AMLODIPINE BESYLATE 10MG TAB TAKE ONE TA BLET BY MOUTH EVERY MORNING FOR HEART/BLOOD PRESSURE 90 Apr 12, 2020 [id number] Feb 10, 2020 SILVINA CHAMBERS [facility] ASPIRIN 81MG TAB,CHEWABLE Non-VA CHEW ONE TABLET BY MOUTH ONCE A DAY Non-VA Documented by: MEGAN HAWK nted at: [facility] [place] [facility] ATORVASTATIN CA 20MG TAB Active TAKE ONE TABLET BY MOUTH ONCE A DAY FOR CHOLESTEROL. REPORT ANY UNEXPLAINED MUSCLE PAIN OR WEAKNESS TO YOUR DOCTOR. 90 Jan 02, 2021 [id number] March 24, 2020 [facility] 15 ATORVASTATIN CA 40MG TAB Discontinued TAKE ONE-HALF T ABLET BY MOUTH AT BEDTIME FOR CHOLESTEROL. REPORT ANY UNEXPLAINED MUSCLE PAIN OR WEAKNESS TO YOUR DOCTOR. 45 Jul 15, 2020 [id number] Oct 14, 2019 [facility] [place] ATORVASTATIN CA 40MG TAB Discontinued TAKE ONE-HALF T ABLET BY MOUTH AT BEDTIME FOR CHOLESTEROL. REPORT ANY UNEXPLAINED MUSCLE PAIN OR WEAKNESS TO YOUR DOCTOR. 45 Oct 12, 2019 [id number] Jul 16, 2019 [facility] [place] [facility] CALCIUM CARBONATE 500MG TAB,CHEWABLE Non-VA CHEW ONE TABLET BY MOUTH PRN Non-VA Documented by: THOM CHAMBERS nted at: [facility] CHLORTHALIDONE 25MG TAB Active TAKE ONE TABLET BY MOUTH ONCE A DAY 90 Jul 01, 2020 [id number] March 19, 2020 JAQUELINMELODYMONIKA L [facility] [place] [facility] CHLORTHALIDONE 25MG TAB Discontinued TAKE ONE TABLET BY MOUTH ONCE A DAY 90 Jun 16, 2019 [id number] Apr 12, 2019 MELODY HAMMERBY Laron [facility] [place] [facility] CHOLECALCIFEROL 1000UNT TAB Non-VA TAKE ONE TABLET BY MOUTH EVERY OTHER DAY Non-VA Docume nted by: MEGAN HAWK Docume nted at: [facility] [place] [facility] CYANOCOBALAMIN 1000MCG/ML INJ Active INJECT 100 0 MCG (1 ML) INTRAMUSCULARLY EVERY MONTH FOR B12 SUPPLEMENTATION. 3 Nov 03, 2020 [id number] Apr 23, 2020 [facility] [place] [facility] CYANOCOBALAMIN 1000MCG/ML INJ Discontinued INJECT 100 0 MCG (1 ML) INTRAMUSCULARLY EVERY MONTH FOR B12 SUPPLEMENTATION. 3 Nov 17 0 [id number] Aug 07, 2019 THOM CHAMBERS [facility] [place] DIPHENHYDRAMINE HCL 25MG CAP Non-VA TAKE 1 CAPSULE BY MOUTH PRN Non-VA Documented by: THOM CHAMBERSume nted at: [facility] DOCUSATE NA 100MG CAP No n-VA TAKE 2 CAPSULES BY MOUTH ONCE A DAY Non-VA Documented by: THOM CHAMBERS Docume nted at: [facility] FISH OIL 1000MG (500MG DHA/EPA) CAP,ORAL Non-VA TAKE 1 CAPSULE BY MOUTH ONCE A DAY Non-VA Documented by: MEGAN HAWK Docume nted at: [facility] [place] GABAPENTIN 100MG CAP Active TAKE 1 CAPSULE BY M OUTH EVERY MORNING AND TAKE 1 CAPSULE BY MOUTH AT NOON AND TAKE 2 CAPSULES BY MOUTH AT BEDTIME 360 Jul 06, 2020 [id number] March 31, 2020 BALTRUSAITIS,ELEUTERIO L [facility] [place] GLUCAGON 1MG/GABIRELLA INJ,EMERGENCY KIT INJEC T 1MG SUBCUTANEOUSLY NEEDED FOR SEVERE HYPOGLYCEMIA 1 Nov 30, 2019 [id number] Nov 03, 2019 THOM CHAMBERS [facility] [place] [facility] INSULIN,ASPART,HUMAN 100U/ML,NOVOLOG,FLEXPEN,3ML Active: On Hold INJECT 20 UNITS SUBCUTANEOUSLY BEFORE BREAKFAST AND INJECT 20 UNITS BEFORE LUNCH AND INJECT 26 UNITS BEFORE SUPPER AND INJECT 24 UNITS SNACK FOR BLOOD SUGAR CONTROL. ADMINISTER 10 MINUTES BEFORE FOOD DIRECTED. REFRIGERATE UN-OPENED PENS. DISCARD CARTRIDGE 28 DAYS AFTER OPENING. PLUS CORRECTION Mar 01, 2021 [id number] ELEUTERIO LIVINGSTON [facility] [place] [facility] INSULIN,ASPART,HUMAN 100U/ML,NOVOLOG,FLEXPEN,3ML Discontinue d INJECT 20 UNITS SUBCUTANEOUSLY BEFORE BREAKFAST AND INJECT 20 UNITS BEFORE LUNCH AND INJECT 24 UNITS BEFORE SUPPER AND INJECT 24 UNITS SNACK FOR BLOOD SUGAR CONTROL. ADMINISTER 10 MINUTES BEFORE FOOD DIRECTED. REFRIGERATE UN-OPENED PENS. DISCARD CARTRIDGE 28 DAYS AFTER OPENING. PLUS CORRECTION 30 Jan 26, 2021 [id number] Jan 28, 2020 [facility] [place] [facility] INSULIN,ASPART,HUMAN 100U/ML,NOVOLOG,FLEXPEN,3ML Discontinue d INJECT 20 UNITS SUBCUTANEOUSLY BEFORE MEALS FOR BLOOD SUGAR CONTROL. ADMINISTER 10 MINUTES BEFORE FOOD DIRECTED. REFRIGERATE UN-OPENED PENS. DISCARD CARTRIDGE 28 DAYS AFTER OPENING. PLUS CORRECTION FOR BLOOD SUGAR CONTROL. ADMINISTER 10 MINUTES BEFORE FOOD DIRECTED. REFRIGERATE UN-OPENED PENS. DISCARD CARTRIDGE 28 DAYS AFTER OPENING. PLUS CORRECTION 30 Nov 16, 2020 [id number] Nov 16 20 [facility] [place] [facility] INSULIN,ASPART,HUMAN 100U/ML,NOVOLOG,FLEXPEN,3ML Discontinue d INJECT 15 UNITS SUBCUTANEOUSLY EVERY MORNING BEFORE MEAL AND INJECT 15 UNITS WITH LUNCH AND INJECT 15 UNITS WITH SUPPER AND INJECT 20 UNITS WITH SNACK FOR BLOOD SUGAR CONTROL. ADMINISTER 10 MINUTES BEFORE FOOD DIRECTED. REFRIGERATE UN-OPENED PENS. DISCARD CARTRIDGE 28 DAYS AFTER OPENING. Dec 22, 2019 [id number] Oct 12, 2019 ELEUTERIO LIVINGSTON [facility] [place] [facility] INSULIN,GLARGINE,HUMAN 100 UNIT/ML INJ,SOLOSTAR,3ML Active INJECT 50 UNITS SUBCUTANEOUSLY EVERY MORNING FOR BLOOD SUGAR CONTROL. ADMINISTER AT SAME TIME EACH DAY DIRECTED. DISCARD ANY OPEN CARTRIDGE AFTER 28 DAYS. Sep 23, 2020 [id number] Jan 28, 2020 [facility] [place] [facility] INSULIN,GLARGINE,HUMAN 100 UNIT/ML INJ,SOLOSTAR,3ML Disconti nued INJECT 45 UNITS SUBCUTANEOUSLY EVERY MORNING FOR BLOOD SUGAR CONTROL. ADMINISTER AT SAME TIME EACH DAY DIRECTED. DISCARD ANY OPEN CARTRIDGE AFTER 28 DAYS. 15 Oct 23, 2019 [id number] Aug 30, 2019 ELEUTERIO LIVINGSTON [facility] [place] [facility] LACTOBACILLUS ACIDOPHILUS TAB,CHEWABLE Non-VA CHEW ONE TABLET BY MOUTH ONCE A DAY Non-VA Documented by: MEGAN HAWK nted at: [facility] [place] [place] [facility] LANCET,SOFTCLIX Active USE LANCET 5 TIME S A DAY FOR TESTING BLOOD GLUCOSE DIRECTED 500 Dec 28, 2020 [id number] March 19, 2020 ELEUTERIO LIVINGSTON [facility] [place] [facility] LANCET,SOFTCLIX Discontinued USE LANCET 5 TIME S A DAY FOR TESTING BLOOD GLUCOSE DIRECTED 500 Jan 11, 2020 [id number] Sep 29, 2019 ELEUTERIO PATEL [facility] [place] [facility] MAGNESIUM OXIDE 400MG TAB Non-VA TAKE ONE TABLET BY MOUTH ONCE A DAY Non-VA Documented by: MEGAN HAWK nted at: [facility] [place] [facility] METOPROLOL SUCCINATE 200MG TAB,SA TAKE O NE-HALF TABLET BY MOUTH EVERY EVENING FOR HEART/BLOOD PRESSURE. SWALLOW WHOLE, DO NOT CRUSH OR CHEW (TABLETS MAY BE CUT IN HALF). 45 March 18, 2020 [id number] Dec 28, 2019 STANISLAV HAMMER [facility] NEEDLE 22G 1.5IN USE NEEDLE FOR EVERY MONTH 1 Nov 12, 2019 [id number] Feb 07, 2019 ADELAIDA CLIFFORD [facility] [place] NEEDLE,PEN 31G,5MM Discontinued USE NEEDLE SUBCUTANE OUSLY 5 TIMES A DAY - THIS IS A SINGLE USE NEEDLE AND SHOULD BE DISCARDED AFTER USE 500 Dec 21, 2019 [id number] Sep 28, 2019 ELEUTERIO LIVINGSTON Laron [facility] [place] [facility] POTASSIUM CHLORIDE 10MEQ TAB,SA Active TAKE TWO TABLETS BY MOUTH TWO TIMES A DAY FOR POTASSIUM SUPPLEMENTATIONTAKE WITH FOOD 360 Dec 12, 2020 [id number] Mar 02, 2020 YANELY QUINTERO [facility], [place] 15 POTASSIUM CHLORIDE 10MEQ TAB,SA Discontinued TAKE ONE TABLET BY MOUTH THREE TIMES A DAY WITH MEALS FOR POTASSIUM SUPPLEMENTATIONTAKE WITH FOOD 180 March 16, 2020 [id number] Nov 29, 2019 BALTRUSAITIS,ELEUTERIO L [facility] [place] [facility] POTASSIUM CHLORIDE 10MEQ TAB,SA Discontinued TAKE ONE TABLET BY MOUTH THREE TIMES A DAY WITH MEALS FOR POTASSIUM SUPPLEMENTATIONTAKE WITH FOOD 180 May 26, 2019 [id number] Jan 24, 2019 INGRIDYANELY B [facility] [place] SYRINGE 2.5-3ML/NDL 25G 1IN Active USE 1 SYRINGE EVERY MONTH 3 Feb 21, 2021 [id number] March 20, 2020 [facility] SYRINGE 2.5-3ML/NDL 25G 1IN Discontinued USE 1 SYRINGE EVERY Thu 3 March 18, 2020 [id number] Dec 21, 2019 [facility] TESTOSTERONE CYPIONATE 200MG/ML INJ,1ML (IN OIL) Active INJECT 200 MG (1 ML) INTRAMUSCULARLY EVERY MONTH FOR HORMONE REPLACEMENT 1 May 18, 2020 [id number] April 06, 2020 ADELAIDA CLIFFORD [facility] [place] TESTOSTERONE CYPIONATE 200MG/ML INJ,1ML (IN OIL) Discontinue d INJECT 200 MG (1 ML) INTRAMUSCULARLY EVERY MONTH FOR HORMONE REPLACEMENT 1 March 25, 2020 [id number] Oct 25, 2019 ADELAIDA CLIFFORD [facility] [place] [facility] TESTOSTERONE CYPIONATE 200MG/ML INJ,1ML (IN OIL) Discontinue d INJECT 200 MG (1 ML) INTRAMUSCULARLY EVERY MONTH FOR HORMONE REPLACEMENT 1 Nov 06, 2019 [id number] Sep 25, 2019 ADELAIDA CLIFFORD [facility] [place] TESTOSTERONE CYPIONATE 200MG/ML INJ,1ML (IN OIL) Discontinue d INJECT 200 MG (1 ML) INTRAMUSCULARLY EVERY MONTH FOR HORMONE REPLACEMENT 1 May 14, 2019 [id number] Apr 10, 2019 ADELAIDA CLIFFORD [facility] [place] [facility] TRAMADOL HCL 50MG TAB Active TAKE 1 TO 2 TABLET S BY MOUTH EVERY 6 HOURS NEEDED FOR PAIN 180 Jul 21, 2020 [id number] March 30, 2020 [facility] TRAMADOL HCL 50MG TAB Discontinued TAKE 1 TO 2 TABLET S BY MOUTH EVERY 6 HOURS NEEDED FOR PAIN 180 Jun 06, 2020 [id number] Jan 11, 2020 [facility] TRAMADOL HCL 50MG TAB Discontinued TAKE 1 TO 2 TABLET S BY MOUTH EVERY 6 HOURS NEEDED FOR PAIN 180 Jun 06, 2020 [id number] Dec 06, 2019 NELLA GROVE [facility], [facility] 15 TRAMADOL HCL 50MG TAB Discontinued TAKE 1 TO 2 TABLET S BY MOUTH EVERY 6 HOURS NEEDED FOR PAIN 180 Dec 14, 2019 [id number] Nov 15, 2019 DANTE VALVERDE [facility] [place] TRAMADOL HCL 50MG TAB Discontinued TAKE 1 TO 2 TABLET S BY MOUTH EVERY 6 HOURS NEEDED FOR PAIN 180 Jul 06, 2019 [id number] May 26, 2019 NELLA GROVE [facility] [place] [facility] TRIAMCINOLONE ACETONIDE 0.5% CREAM,TOP Active A PPLY SPARINGLY TO AFFECTED AREA ONCE A DAY NEEDED FOR RASH 45 Jul 15, 2020 [id number] April 01 0 THOM CHAMBERS [facility] [place] [facility] TRIAMCINOLONE ACETONIDE 0.5% CREAM,TOP Discontinued A PPLY SPARINGLY TO AFFECTED AREA ONCE A DAY NEEDED FOR RASH 45 Oct 12, 2019 [id number] Jul THOM CHAMBERS [facility] [place] [facility] Problems (Conditions): All historical and current Section Date Range: From patient's date of to the date document was create d. This section includes a list of Problems (Conditions) know n to [place] for the patient. It includes both active and inacti ve problems (conditions). The data comes from all [place] treatment facilities. Problem Status Problem Code Date of Onset Date of Resolution Comm ent(s) Provider Source Basal cell carcinoma of scalp Active [id number] THOM CHAMBERS [facility] [place] [facility] Chronic back pain Active [id number] TERRIE CHAMBERS [facility] [place] [facility] Chronic kidney disease stage 3 Active [id number] REYES,DANA [facility] [place] [facility] Constipation Active [id number] THOM CHAMBERS [facility] [place] Diabetes mellitus Active [id number] THOM CHAMBERS [facility] [place] [facility] Diabetic neuropathy Active [id number] Neha CHAMBERS [facility] [place] [facility] Essential hypertension Active [id number] THOM CHAMBERS [facility] [place] [facility] Hyperlipidemia Active 44186790 THOM CHAMBERS [facility] [place] Hypogonadism Active 17716986 THOM CHAMBERS [facility] [place] Sleep apnea Active [id number] THOM CHAMBERS RN [facility] [place] Radiology Reports: +/- 30 days of the encounter No Data Provided for This Section Pathology Reports: +/- 30 days of the encounter No Data Provided for This Section Encounter Notes: All associated encounter notes This section contains the clinical notes associated to the Encounter. Date/Time Encounter Note(s) Provider Source Jan 26, 2020 09:40 AM CARE MANAGEMENT NOTE: LOCAL TITLE: EK-PACT CARE MANAGEMENT STANDARD TITLE: CARE MANAGEMENT NOTE DATE OF NOTE: JAN 26, 2020@09:40 ENTRY DATE: JAN 26, 2020@09:40:38 AUTHOR: ALLA NARAYANAN EXP COSIGNER: URGENCY: STATUS: COMPLETED PC from t stating that he is seeing Dr. Grove under [facility] and is asking when that contract expires 07-13-20, how does this get renewed. He was informed that provider would proably need to put in a request to [facility] or [facility] for continued care. Rec to contact [facility] for most accurate information on this process. He v/u. Ph # given and call transferred. /noa/ ALLA NARAYANAN RN Signed: 01/26/2020 10:03 ALLA NARAYANAN [facility] [place]
--- OUTSIDE RECORDS SUMMARY | 2020-04-18 09:35 | XMS REPORT | Encounter Summary ---
Author [facility] Address [address] [place] [id number] Phone Unavailable Care Team Providers Care House Mover Supervisor Name Role Phone REYES THOM PCP Unavailable Insurance Providers: All historical and [...] to Policy Woodard [employer] ([facility]) MEDICARE ADVANTAGE [facility] ([facility]) Nov 09, 2017 [id number] [phone] SIMI COVARRUBIAS PATIENT [employer] ([facility]) MEDICARE ADVANTAGE MCR ([facility]) Nov 09, 2017 [id number] [phone] SIMI COVARRUBIAS PATIENT AETNA MCR ([facility]) MEDICARE ADVANTAGE MCR ([facility]) Nov 09, 2019 [id number] SIMI COVARRUBIAS PATIENT Selected Encounter This section includes the information on record at [place] for the Encounter. Date/Time Encounter Type Encounter Description Reason Provider Source March 28, 2020 11:30 AM Outpatient Encounter TELEPHONE PRIMARY CAR E ICD-10-CM E11.9 Type 2 diabetes mellitus without complications with Provider Comments: Diabetes mellitus (SCT [id number]) BALTRELEUTERIO ROJAS L [facility] IHE Encounter Template Text not used by [facility] Assessments - Encounter Diagnoses This section includes the primary and secondary diag noses documented for the Encounter. Date/Time Primary/Secondary Diagnosis Diagnosis Name Provider Source March 28, 2020 11:30 AM PRIMARY Type 2 diabetes mellitus w ithout complications GLENROY LOUIS [facility] Plan of Treatment: Future Appointments (+ 6 [...] appointme nts. The data comes from all [facility]. Appointment Date/Time Appointment Type Appointment Facili ty Name Apr 19, 2020 11:00 AM AMBULATORY - NONE [facility] Apr 26, 2020 10:45 AM AMBULATORY - NONE [facility], [facility] 15 Active, Pending, and Scheduled Orders This section includes a listing of several types of activ e, pending, and scheduled orders, including clinic medications orders, diagnosti c test orders, procedure orders and consult orders; where the start date of th e order is 45 days before the date of the Encounter or 45 days after the date o f the Encounter. The data comes from all [place] treatment [facility]. Test Date/Time Test Type Test Details Facility Name March 20, 2020 12:00 AM Laboratory - Chemistry Order LIPID PROFILE(HDL,TRIG,CHOL,LDL) GREEN TOP TUBE PLASMA SP ONCE [facility] March 20, 2020 08:53 AM Consult Order LE-PODIATRY CONSUL TS OUTPT-[id number] Cons Mixing Tank Operator's Choice [facility] March 20, 2020 08:53 AM Consult Order COMMUNITY CARE-EK EYE OPHTHALMOLOGY-[id number] Cons Mixing Tank Operator's Choice [facility] March 20, 2020 08:53 AM Consult Order TO-RENAL OUTPT-589 A5 [facility] Mixing Tank Operator's Choice [facility] April 05, 2020 12:00 AM Laboratory - Chemistry Order LIPID PROFILE(HDL,TRIG,CHOL,LDL) GREEN TOP TUBE PLASMA SP ONCE [facility] April 05, 2020 12:00 AM Laboratory - Chemistry Order HEMOGLOBI N A1C LAVENDER TOP BLOOD SP [facility] April 05, 2020 12:00 AM Laboratory - Chemistry Order COMPREHEN SIVE METABOLIC PANEL GREEN TOP TUBE PLASMA SP ONCE [facility] April 05, 2020 12:00 AM Laboratory - Chemistry Order CBC & DIF F 5 ML LAVENDER TOP BLOOD SP ONCE [facility] April 05, 2020 12:00 AM Laboratory - Chemistry Order TSH SST GEL S LIMA SP ONCE [facility] April 05, 2020 12:00 AM Laboratory - Chemistry Order PROSTATIC SPECIFIC ANTIGEN(TOTAL) SST GEL SERUM SP [facility] April 05, 2020 12:00 AM Laboratory - Chemistry Order URINALYSI S URIN,ULYSSES URINE SP [facility] April 05, 2020 12:00 AM Laboratory - Chemistry Order MICROALBU MIN (CO,EK) URIN,ULYSSES URINE SP [facility] Surgical Procedures: All associated to the encounter [...] Adverse Reactions (ADR s) on record with [place] for the patient. The data comes from a ll [place] treatment facilities. It does not list Allergies/ADRs that were removed or entered in error. Some allergies/ADRs may be reported in t Immunization section. Allergen Event Date Event Type Reaction(s) Severity Source LISINOPRIL Dec 01, 2017 Propensity to adverse reactions to drug (disorder) Renal impairment [facility] 15 METFORMIN Dec 01, 2017 Propensity to adverse reactions to drug (disorder) Renal impairment [facility] 15 Medications: VA dispensed (-15 months) and Non-VA Documented (Obtained Outside V A) Section Date Range: 1) prescriptions processed by a VA pharmacy in the last 15 m [facility], and 2) all medications recorded in the [...] TIMES A DAY 400 Sep 12, 2020 [id number] Feb 29, 2020 BALDILANPARK [facility] ACCU-CHEK ROSINA PLUS (GLUCOSE) TEST STRIP Discontinued USE 1 STRIP FOR TESTING FOUR TIMES A DAY 400 Sep 15, 2019 [id number] Jun 13, 2019 BALTRUSAKAYLA ISPARK [facility] ALCOHOL PREP PAD Discontinued USE 1 PAD ON SKIN FOUR TIMES A DAY 40 0 Apr 25, 2020 [id number] Nov 29, 2019 BALDILANELEUTERIO Lraon [facility] [place] [facility] ALCOHOL PREP PAD Discontinued USE 1 PAD ON SKIN FOUR TIMES A DAY 40 0 Sep 15, 2019 [id number] Apr 18, 2019 BALANGELIKAUSADANNELEUTERIO Laron [facility] ALLOPURINOL 100MG TAB Active TAKE ONE TABLET BY MOUTH ONCE A DAY FOR GOUT. TAKE WITH PLENTY OF WATER 90 Sep 23, 2020 [id number] Mar 05, 2020 SILVINA CHAMBERS [facility] ALLOPURINOL 100MG TAB Discontinued TAKE ONE TABLET BY MOUTH ONCE A DAY FOR GOUT. TAKE WITH PLENTY OF WATER 90 Dec 30, 2019 [id number] Sep 17, 2019 THOM SHARPE [facility] ALOGLIPTIN 12.5MG TAB Active TAKE ONE TABLET BY MOUTH O NCE A DAY FOR DIABETES 90 Sep 12, 2020 [id number] Mar 04, 2020 ELEUTERIO LIVINGSTON [facility] [place] [facility] ALOGLIPTIN 12.5MG TAB Discontinued TAKE ONE TABLET BY MOUTH ONCE A DAY FOR DIABETES 90 Dec 22, 2019 [id number] Jun 18, 2019 BALTRUSAELEUTERIO QUIGLEY [facility] AMLODIPINE BESYLATE 10MG TAB Discontinued TAKE ONE TA BLET BY MOUTH EVERY MORNING FOR HEART/BLOOD PRESSURE 90 Jun 10, 2019 [id number] Feb 25, 2019 MONIKA HAMMER [facility] AMLODIPINE BESYLATE 10MG TAB TAKE ONE TA BLET BY MOUTH EVERY MORNING FOR HEART/BLOOD PRESSURE 90 Apr 12, 2020 [id number] Feb 10, 2020 SILVINA CHAMBERS [facility] ASPIRIN 81MG TAB,CHEWABLE Non-VA CHEW ONE TABLET BY MOUTH ONCE A DAY Non-VA Documented by: MEGAN HAWK nted at: [facility] ATORVASTATIN [place] 20MG TAB Active TAKE ONE TABLET BY MOUTH ONCE A DAY FOR CHOLESTEROL. REPORT ANY UNEXPLAINED MUSCLE PAIN OR WEAKNESS TO YOUR DOCTOR. 90 Jan 02, 2021 [id number] March 24, 2020 [facility] ATORVASTATIN [place] 40MG TAB Discontinued TAKE ONE-HALF T ABLET BY MOUTH AT BEDTIME FOR CHOLESTEROL. REPORT ANY UNEXPLAINED MUSCLE PAIN OR WEAKNESS TO YOUR DOCTOR. 45 Jul 15, 2020 [id number] Oct 14, 2019 THOM CHAMBERS [facility] ATORVASTATIN [place] 40MG TAB Discontinued TAKE ONE-HALF T ABLET BY MOUTH AT BEDTIME FOR CHOLESTEROL. REPORT ANY UNEXPLAINED MUSCLE PAIN OR WEAKNESS TO YOUR DOCTOR. 45 Oct 12, 2019 [id number] Jul 16, 2019 THOM CHAMBERS [facility] CALCIUM CARBONATE 500MG TAB,CHEWABLE Non-VA CHEW ONE TABLET BY MOUTH PRN Non-VA Documented by: THOM CHAMBERS nted at: [facility] CHLORTHALIDONE 25MG TAB Active TAKE ONE TABLET BY MOUTH ONCE A DAY 90 Jul 01, 2020 [id number] March 19, 2020 MONIKA HAMMER [facility] CHLORTHALIDONE 25MG TAB Discontinued TAKE ONE TABLET BY MOUTH ONCE A DAY 90 Jun 16, 2019 [id number] Apr 12, 2019 TIPSHRUTHIMONIKA Larry [facility] CHOLECALCIFEROL 1000UNT TAB Non-VA TAKE ONE TABLET BY MOUTH EVERY OTHER DAY Non-VA Docume nted by: MEGAN HAWK Docume nted at: [facility] CYANOCOBALAMIN 1000MCG/ML INJ Active INJECT 100 0 MCG (1 ML) INTRAMUSCULARLY EVERY MONTH FOR B12 SUPPLEMENTATION. 3 Nov 03, 2020 [id number] Apr 23, 2020 THOM CHAMBERS [facility] CYANOCOBALAMIN 1000MCG/ML INJ Discontinued INJECT 100 0 MCG (1 ML) INTRAMUSCULARLY EVERY MONTH FOR B12 SUPPLEMENTATION. 3 Nov 17 0 [id number] Aug 07, 2019 [facility] DIPHENHYDRAMINE HCL 25MG CAP Non-VA TAKE 1 CAPSULE BY MOUTH PRN Non-VA Documented by: THOM CHAMBERS Docume nted at: [facility] DOCUSATE NA 100MG CAP No n-VA TAKE 2 CAPSULES BY MOUTH ONCE A DAY Non-VA Documented by: THOM CAHMBERS Docume nted at: [facility] FISH OIL 1000MG (500MG DHA/EPA) CAP,ORAL Non-VA TAKE 1 CAPSULE BY MOUTH ONCE A DAY Non-VA Documented by: MEGAN HAWK Docume nted at: [facility] GABAPENTIN 100MG CAP Active TAKE 1 CAPSULE BY M OUTH EVERY MORNING AND TAKE 1 CAPSULE BY MOUTH AT NOON AND TAKE 2 CAPSULES BY MOUTH AT BEDTIME 360 Jul 06, 2020 [id number] March 31, 2020 BALTRUSAITIS,ELEUTEROI L [facility] [place] [facility] GLUCAGON 1MG/GABRIELLA INJ,EMERGENCY KIT INJEC T 1MG SUBCUTANEOUSLY NEEDED FOR SEVERE HYPOGLYCEMIA 1 Nov 30, 2019 [id number] Nov 03, 2019 THOM CHAMBERS [facility] INSULIN,ASPART,HUMAN 100U/ML,NOVOLOG,FLEXPEN,3ML Active: On Hold INJECT 20 UNITS SUBCUTANEOUSLY BEFORE BREAKFAST AND INJECT 20 UNITS BEFORE LUNCH AND INJECT 26 UNITS BEFORE SUPPER AND INJECT 24 UNITS SNACK FOR BLOOD SUGAR CONTROL. ADMINISTER 10 MINUTES BEFORE FOOD DIRECTED. REFRIGERATE UN-OPENED PENS. DISCARD CARTRIDGE 28 DAYS AFTER OPENING. PLUS CORRECTION Mar 01, 2021 [id number] ELEUTERIO LIVINGSTON [facility] INSULIN,ASPART,HUMAN 100U/ML,NOVOLOG,FLEXPEN,3ML Discontinue d INJECT 20 UNITS SUBCUTANEOUSLY BEFORE BREAKFAST AND INJECT 20 UNITS BEFORE LUNCH AND INJECT 24 UNITS BEFORE SUPPER AND INJECT 24 UNITS SNACK FOR BLOOD SUGAR CONTROL. ADMINISTER 10 MINUTES BEFORE FOOD DIRECTED. REFRIGERATE UN-OPENED PENS. DISCARD CARTRIDGE 28 DAYS AFTER OPENING. PLUS CORRECTION Jan 26, 2021 [id number] Jan 28, 2020 ELEUTERIO LIVINGSTON [facility] INSULIN,ASPART,HUMAN 100U/ML,NOVOLOG,FLEXPEN,3ML Discontinue d INJECT 20 UNITS SUBCUTANEOUSLY BEFORE MEALS FOR BLOOD SUGAR CONTROL. ADMINISTER 10 MINUTES BEFORE FOOD DIRECTED. REFRIGERATE UN-OPENED PENS. DISCARD CARTRIDGE 28 DAYS AFTER OPENING. PLUS CORRECTION FOR BLOOD SUGAR CONTROL. ADMINISTER 10 MINUTES BEFORE FOOD DIRECTED. REFRIGERATE UN-OPENED PENS. DISCARD CARTRIDGE 28 DAYS AFTER OPENING. PLUS CORRECTION Nov 16, 2020 [id number] Nov [address] [facility] [place] [facility] INSULIN,ASPART,HUMAN 100U/ML,NOVOLOG,FLEXPEN,3ML Discontinue d INJECT 15 UNITS SUBCUTANEOUSLY EVERY MORNING BEFORE MEAL AND INJECT 15 UNITS WITH LUNCH AND INJECT 15 UNITS WITH SUPPER AND INJECT 20 UNITS WITH SNACK FOR BLOOD SUGAR CONTROL. ADMINISTER 10 MINUTES BEFORE FOOD DIRECTED. REFRIGERATE UN-OPENED PENS. DISCARD CARTRIDGE 28 DAYS AFTER OPENING. Dec 22, 2019 [id number] Oct 12, [address] [facility] [facility] [place] [facility] INSULIN,GLARGINE,HUMAN 100 UNIT/ML INJ,SOLOSTAR,3ML Active INJECT 50 UNITS SUBCUTANEOUSLY EVERY MORNING FOR BLOOD SUGAR CONTROL. ADMINISTER AT SAME TIME EACH DAY DIRECTED. DISCARD ANY OPEN CARTRIDGE AFTER 28 DAYS. Sep 23, 2020 [id number] Jan 28, [address] [facility] [facility] INSULIN,GLARGINE,HUMAN 100 UNIT/ML INJ,SOLOSTAR,3ML Disconti nued INJECT 45 UNITS SUBCUTANEOUSLY EVERY MORNING FOR BLOOD SUGAR CONTROL. ADMINISTER AT SAME TIME EACH DAY DIRECTED. DISCARD ANY OPEN CARTRIDGE AFTER 28 DAYS. Oct 23, 2019 [id number] Aug 30, [address] [facility] [facility] LACTOBACILLUS ACIDOPHILUS TAB,CHEWABLE Non-VA CHEW ONE TABLET BY MOUTH ONCE A DAY Non-VA Documented by: MEGAN HAWK nted at: [facility] LANCET,SOFTCLIX Active USE LANCET 5 TIME S A DAY FOR TESTING BLOOD GLUCOSE DIRECTED 500 Dec 28, 2020 [id number] March 19, 2020 ELEUTERIO LIVINGSTON [facility] LANCET,SOFTCLIX Discontinued USE LANCET 5 TIME S A DAY FOR TESTING BLOOD GLUCOSE DIRECTED 500 Jan 11, 2020 [id number] Sep 29, [address] [facility] MAGNESIUM OXIDE 400MG TAB Non-VA TAKE ONE TABLET BY MOUTH ONCE A DAY Non-VA Documented by: MEGAN HAWK nted at: [facility] METOPROLOL SUCCINATE 200MG TAB,SA TAKE O NE-HALF TABLET BY MOUTH EVERY EVENING FOR HEART/BLOOD PRESSURE. SWALLOW WHOLE, DO NOT CRUSH OR CHEW (TABLETS MAY BE CUT IN HALF). 45 March 18, 2020 [id number] Dec 28, 2019 STANISLAV HAMMER [facility] NEEDLE 22G 1.5IN USE NEEDLE FOR EVERY MONTH 1 Nov 12, 2019 [id number] Feb 07, 2019 ADELAIDA CLIFFORD [facility] NEEDLE,PEN 31G,5MM Discontinued USE NEEDLE SUBCUTANE OUSLY 5 TIMES A DAY - THIS IS A SINGLE USE NEEDLE AND SHOULD BE DISCARDED AFTER USE 500 Dec 21, 2019 [id number] Sep 28, 2019 LYNDAANGELIKAMARVINDANNELEUTERIO Larry [facility] POTASSIUM CHLORIDE 10MEQ TAB,SA Active TAKE TWO TABLETS BY MOUTH TWO TIMES A DAY FOR POTASSIUM SUPPLEMENTATIONTAKE WITH FOOD 360 Dec 12, 2020 [id number] Mar 02, 2020 YANELY QUINTERO [facility] [place] 15 POTASSIUM CHLORIDE 10MEQ TAB,SA Discontinued TAKE ONE TABLET BY MOUTH THREE TIMES A DAY WITH MEALS FOR POTASSIUM SUPPLEMENTATIONTAKE WITH FOOD 180 March 16, 2020 [id number] Nov 29, 2019 YAYAELEUTERIO QUIGLEY [facility] [place] [facility] POTASSIUM CHLORIDE 10MEQ TAB,SA Discontinued TAKE ONE TABLET BY MOUTH THREE TIMES A DAY WITH MEALS FOR POTASSIUM SUPPLEMENTATIONTAKE WITH FOOD 180 May 26, 2019 [id number] Jan 24, 2019 YANELY QUINTERO [facility] [place] [facility] SYRINGE 2.5-3ML/NDL 25G 1IN Active USE 1 SYRINGE EVERY MONTH 3 Feb 21, 2021 [id number] March 20, 2020 [facility] SYRINGE 2.5-3ML/NDL 25G 1IN Discontinued USE 1 SYRINGE EVERY Thu 3 March 18, 2020 [id number] Dec 21, 2019 [facility] TESTOSTERONE CYPIONATE 200MG/ML INJ,1ML (IN OIL) Active INJECT 200 MG (1 ML) INTRAMUSCULARLY EVERY MONTH FOR HORMONE REPLACEMENT 1 May 18, 2020 [id number] April 06, 2020 ADELAIDA CLIFFORD [facility] TESTOSTERONE CYPIONATE 200MG/ML INJ,1ML (IN OIL) Discontinue d INJECT 200 MG (1 ML) INTRAMUSCULARLY EVERY MONTH FOR HORMONE REPLACEMENT 1 March 25, 2020 [id number] Oct 25, 2019 ADELAIDA CLIFFORD [facility] TESTOSTERONE CYPIONATE 200MG/ML INJ,1ML (IN OIL) Discontinue d INJECT 200 MG (1 ML) INTRAMUSCULARLY EVERY MONTH FOR HORMONE REPLACEMENT 1 Nov 06, 2019 [id number] Sep 25, 2019 ADELAIDA CLIFFORD [facility] TESTOSTERONE CYPIONATE 200MG/ML INJ,1ML (IN OIL) Discontinue d INJECT 200 MG (1 ML) INTRAMUSCULARLY EVERY MONTH FOR HORMONE REPLACEMENT 1 May 14, 2019 [id number] Apr 10, 2019 ADELAIDA CLIFFORD [facility] TRAMADOL HCL 50MG TAB Active TAKE 1 TO 2 TABLET S BY MOUTH EVERY 6 HOURS NEEDED FOR PAIN 180 Jul 21, 2020 [id number] March 30, 2020 [facility] TRAMADOL HCL 50MG TAB Discontinued TAKE 1 TO 2 TABLET S BY MOUTH EVERY 6 HOURS NEEDED FOR PAIN 180 Jun 06, 2020 [id number] Jan 11, 2020 [facility] TRAMADOL HCL 50MG TAB Discontinued TAKE 1 TO 2 TABLET S BY MOUTH EVERY 6 HOURS NEEDED FOR PAIN 180 Jun 06, 2020 [id number] Dec 06, 2019 [facility] TRAMADOL HCL 50MG TAB Discontinued TAKE 1 TO 2 TABLET S BY MOUTH EVERY 6 HOURS NEEDED FOR PAIN 180 Dec 14, 2019 [id number] Nov 15, 2019 DANTE VALVERDE AYDE [facility] TRAMADOL HCL 50MG TAB Discontinued TAKE 1 TO 2 TABLET S BY MOUTH EVERY 6 HOURS NEEDED FOR PAIN 180 Jul 06, 2019 [id number] May 26, 2019 NELLA GROVE [facility] [place] TRIAMCINOLONE ACETONIDE 0.5% CREAM,TOP Active A PPLY SPARINGLY TO AFFECTED AREA ONCE A DAY NEEDED FOR RASH 45 Jul 15, 2020 [id number] April 01 0 THOM CHAMBERS [facility] TRIAMCINOLONE ACETONIDE 0.5% CREAM,TOP Discontinued A PPLY SPARINGLY TO AFFECTED AREA ONCE A DAY NEEDED FOR RASH 45 Oct 12, 2019 [id number] Jul THOM CHAMBERS [facility] Problems (Conditions): All historical [...] Source Basal cell carcinoma of scalp Active [id number] THOM CHAMBERS [facility] Chronic back pain Active [id number] TERRIE CHAMBERS [facility] Chronic kidney disease stage 3 Active [id number] THOM CHAMBERS [facility] Constipation Active 79198590 THOM CHAMBERS [facility] [place] [facility] Diabetes mellitus Active [id number] THOM CHAMBERS [facility] Diabetic neuropathy Active [id number] Neha CHAMBERS [facility] [place] Essential hypertension Active 75101704 THOM CHAMBERS [facility] [place] Hyperlipidemia Active 82929251 THOM CHAMBERS [facility] [place] [facility] Hypogonadism Active 47962516 THOM CHAMBERS [facility] [place] [facility] Sleep apnea Active 47282325 THOM CHAMBERS [facility] [place] [facility] Radiology Reports: +/- 30 days of the encounter No Data Provided for This Section Pathology Reports: +/- 30 days of the encounter No Data Provided for This Section Encounter Notes: All associated encounter notes This section contains the clinical notes associated to the Encounter. Date/Time Encounter Note(s) Provider Source March 28, 2020 11:34 AM PHARMACY NOTE: LOCAL TITLE: EK-PHARMACY PRIMARY CARE STANDARD TITLE: PHARMACY NOTE DATE OF NOTE: MARCH 28, 2020@11:34 ENTRY DATE: MARCH 28, 2020@11:34:05 AUTHOR: REGGIE LIVINGSTON COSIGNER: URGENCY: STATUS: COMPLETED HALDSIMI is a 72 yo MALE contacted clinic via telephone. Team: TO-MICHAELA WELLER 1 *WH*; PCP: THOM CHAMBERS S: [place] reports doing well, in NAD. Correctly confirms current DM regimen w/ good adherence. "My BG are not any different. Some of the snacks that are lower carb do not taste very good, but I am trying. Also my blood pressure has been running a little higher on average w/ more reading above 140." HPI: At last appt was advised to try different low carb snacks at night to lower HS BG ex:(Fiber one 70cal brownie (5G carbs), cashews, V8 juice, 1/2 banana + 1 Tbsp PB) Lifestyle: Physical Activity: walking/elliptica ~10-15 miles/day (2-3hrs/day) & plays w/ grandchildren Diet: 24h Recall Breakfast (): eggs + ni/ham w/ cup of cereal; 2 eggs and cheese omellete Lunch (): salad w/ fruit; occ. watermelon or cantalope w/ 5g CHO 30g Premier protein shake; occ. grilled cheese sandwich; 1/2 banana or tangerine; small bowl of cream of chicken soup w/ fruit (grapes) Evening meal (16:00-18:00): meat w/ potatoes; pork/beef steak 3/4 cup potatoes + green beans; hot dog; beef stroganoff Snacks (22-23:00): hard boiled eggs, 1-2 servings of fruit (bananas, grapes, watermelon), cup-cake, cheese pop- corn; sandwich; outshine fruit bars; Medication Adherence (self-report): good 1. DIABETES Current Regimen: -insulin glargine 50 units QPM -alogliptin 12.5mg -insulin aspart 20 units AC BKF and ac Lunch + 24 units w/ ac supper + 26 Units ac snack + CF Correction factor: BG 70-99: -2 UNITS BG 100-149: NORMAL DOSE BG 151-199: +1 UNITS BG 200-249: +2 UNITS BG 250-299: +3 UNITS BG 300-349: +4 UNITS BG >350: +5 UNITS ASA: yes [place]/ARB: no (CKD) Statin: moderate intensity Previously tried meds: metformin - rn night recommends against d/t hx of BRIGIDO liraglutide - severe N/V that led to dehydration/BRIGIDO Diabetes Complications: Retinopathy: last eye exam 05/04/19; (-) Gastropathy: denies bloating after meals, early satiety, GI complaints Nephropathy: microalbuminuria (+) 06/2019; Peripheral neuropathy: denies numbness, burning, tingling in hands/feet Foot Exam: 10/23/2017 (-)Abnormal BG Readings: Reports BG FBG AC-L AC-S HS ~100-160 ~80-120 ~120 ~200-300 Average 181 Hypoglycemia Episodes: denies Blood pressure: 118-140's/60-70's, majority in 140s late ly PMH: Computerized Problem List is the source for the followin. Diabetes mellitus 2. Diabetic neuropathy 3. Essential hypertension 4. Hyperlipidemia 5. Sleep apnea 6. Constipation 7. Chronic back pain 8. Hypogonadism 9. Basal cell carcinoma of scalp Allergies/ADRs: METFORMIN, LISINOPRIL Active Inpatient and Outpatient Medications (including Supplies): Issue Date Status Last Fill Outpatient Medications Refills Expiration 1) ACCU-CHEK ROSINA 1-2 CONTROL SOLN Q ty: 1 ACTIVE Issu:11-16-19 for 90 days Si DROP Refills: 0 Last:02-20-20 DIRECTED TO CALIBRATE BLOOD GLUCOSE Expr:11-16-20 MONITOR. DISCARD BOTTLE 90 DAYS AFTER OPENING. 2) ACCU-CHEK ROSINA PLUS(GLUCOSE) TEST STRIP ACTIVE Issu:09-12-19 Qty: 400 for 90 days Sig: USE 1 STRIP Refills: 1 Last:02-29-20 FOR TESTING FOUR TIMES A DAY Expr:09-12-20 3) ALCOHOL PREP PAD Qty: 200 for 30 d ays ACTIVE Issu:02-20-20 Sig: USE 1 PAD ON SKIN FOUR TIMES A Refills: 5 Last:03-19-20 DAY Expr:02-20-21 4) ALLOPURINOL 100MG TAB Qty: 90 for 90 ACTIVE Issu:09-23-19 days Sig: TAKE ONE TABLET BY MOUTH Refills: 2 Last:03-05-20 ONCE A DAY FOR GOUT. TAKE WITH PLENTY Expr:09-23-20 OF WATER 5) ALOGLIPTIN 12.5MG TAB Qty: 90 for 90 ACTIVE Issu:09-12-19 days Sig: TAKE ONE TABLET BY MOUTH Refills: 0 Last:03-04-20 ONCE A DAY FOR DIABETES Expr:09-12-20 6) AMLODIPINE BESYLATE 10MG TAB Qty: 90 ACTIVE Issu:04-12-19 for 90 days Sig: TAKE ONE TABLET BY Refills: 0 Last:02-10-20 MOUTH EVERY MORNING FOR HEART/BLOOD Expr:04-12-20 PRESSURE 7) ATORVASTATIN CALCIUM 20MG TAB Qty: 90 ACTIVE Issu:01-02-20 for 90 days Sig: TAKE ONE TABLET BY Refills: 2 Last:03-24-20 MOUTH ONCE A DAY FOR CHOLESTEROL. Expr:01-02-21 REPORT ANY UNEXPLAINED MUSCLE PAIN OR WEAKNESS TO YOUR DOCTOR. 8) CHLORTHALIDONE 25MG TAB Qty: 90 fo r 90 ACTIVE Issu:07-01-19 days Sig: TAKE ONE TABLET BY MOUTH Refills: 0 Last:03-19-20 ONCE A DAY Expr:07-01-20 9) CYANOCOBALAMIN 1000MCG/ML INJ Qty: 3 ACTIVE (S) Issu:11-03-19 for 90 days Sig: INJECT 1000 MCG (1 Refills: 1 Last:04-23-20 ML) INTRAMUSCULARLY EVERY MONTH FOR Expr:11-03-20 B12 SUPPLEMENTATION. 10) GABAPENTIN 100MG CAP Qty: 360 for 90 ACTIVE Issu:07-06-19 days Sig: TAKE ONE CAPSULE BY MOUTH Refills: 0 Last:03-31-20 EVERY MORNING AND TAKE ONE CAPSULE AT Expr:07-06-20 NOON AND TAKE TWO CAPSULES AT BEDTIME 11) INSULIN,ASPART 100UN/ML CHANTELLE FLEXPE N 3ML HOLD Issu:02-29-20 Qty: 30 for 84 days Sig: INJECT 20 Refills: 3 UNITS SUBCUTANEOUSLY BEFORE BREAKFAST Expr:03-01-21 AND INJECT 20 UNITS BEFORE LUNCH AND INJECT 26 UNITS BEFORE SUPPER AND INJECT 24 UNITS SNACK FOR BLOOD SUGAR CONTROL. ADMINISTER 10 MINUTES BEFORE FOOD DIRECTED. REFRIGERATE UN-OPENED PENS. DISCARD CARTRIDGE 28 DAYS AFTER OPENING. PLUS CORRECTION 12) INSULIN,GLARGINE 100 UNT/ML 3ML YESENIA OSTAR ACTIVE Issu:09-23-19 Qty: 15 for 90 days Sig: INJECT 50 Refills: 2 Last:01-28-20 UNITS SUBCUTANEOUSLY EVERY MORNING FOR Expr:09-23-20 BLOOD SUGAR CONTROL. ADMINISTER AT SAME TIME EACH DAY DIRECTED. DISCARD ANY OPEN CARTRIDGE AFTER 28 DAYS. 13) LANCET,SOFTCLIX Qty: 500 for 90 da ys ACTIVE Issu:12-28-19 Sig: USE LANCET 5 TIMES A DAY FOR Refills: 2 Last:03-19-20 TESTING BLOOD GLUCOSE DIRECTED Expr:12-28-20 14) NEEDLE,PEN 31G,5MM Qty: 500 for 90 days ACTIVE (S) Issu:01-26-20 Sig: USE NEEDLE SUBCUTANEOUSLY 5 TIMES Refills: 2 Last:04-17-20 A DAY - THIS IS A SINGLE USE NEEDLE Expr:01-26-21 AND SHOULD BE DISCARDED AFTER USE 15) POTASSIUM CHLORIDE 10MEQ SA TAB Qt y: ACTIVE Issu:12-12-19 360 for 90 days Sig: TAKE TWO TABLETS Refills: 2 Last:03-02-20 BY MOUTH TWO TIMES A DAY FOR POTASSIUM Expr:12-12-20 SUPPLEMENTATIONTAKE WITH FOOD 16) SYRINGE 3ML/NDL 25G 1IN Qty: 3 for 90 ACTIVE Issu:02-21-20 days Sig: USE 1 SYRINGE EVERY Refills: 3 Last:03-20-20 MONTH Expr:02-21-21 17) TESTOSTERONE CYP 200MG/ML 1ML IN OIL ACTIVE (S) Issu:11-16-19 Qty: 1 for 30 days Sig: INJECT 200 MG Refills: 0 Last:04-06-20 (1 ML) INTRAMUSCULARLY EVERY MONTH FOR Expr:05-18-20 HORMONE REPLACEMENT 18) TRAMADOL HCL 50MG TAB Qty: 180 for 30 ACTIVE Issu:01-19-20 days Sig: TAKE 1 TO 2 TABLETS BY Refills: 3 Last:03-30-20 MOUTH EVERY 6 HOURS NEEDED FOR PAIN Expr:07-21-20 19) TRIAMCINOLONE 0.5% CR Qty: 45 for 90 ACTIVE Issu:07-15-19 days Sig: APPLY SPARINGLY TO AFFECTED Refills: 1 Last:04-01-20 AREA ONCE A DAY NEEDED FOR RASH Expr:07-15-20 Start Date Non-VA Medications Refills Expiration 1) Non-VA ASPIRIN 81MG CHEW TAB SiMG ACTIVE MOUTH ONCE A DAY 2) Non-VA CALCIUM CARB 500MG (CA 200MG ) ACTIVE CHEW TAB SiMG MOUTH NEEDED 3) Non-VA CHOLECALCIF 25MCG (D3-1,000U NIT) ACTIVE TAB SiUNIT MOUTH EVERY OTHER DAY 4) Non-VA DIPHENHYDRAMINE HCL 25MG CAP ACTIVE SiMG MOUTH NEEDED 5) Non-VA DOCUSATE NA 100MG CAP SiMG ACTIVE MOUTH ONCE A DAY 6) Non-VA FISH OIL 1000MG (500MG DHA/E PA) ACTIVE CAP SiMG MOUTH ONCE A DAY 7) Non-VA LACTOBACILLUS ACIDOPHILUS CH EW ACTIVE TAB Si TABLET MOUTH ONCE A DAY 8) Non-VA MAGNESIUM OXIDE 400MG TAB S ig: ACTIVE 400MG MOUTH ONCE A DAY 27 Total Medications Compared newly ordered medications and medication changes to active medications and non-VA medications, and then reviewed medications with patient and/or caregiver. All discrepancies noted and reconciled. Patients, or caregivers, was provided with reconciled medications list and advised to provide to all non VA providers. Potential adverse reactions of new medications were discussed with the patient. Outpatient Medications MEDICATION DATE ACCU-CHEK ROSINA PLUS (GLUCOSE) METER Dec DICLOFENAC NA 1% TOP GEL Jan GABAPENTIN 100MG CAP Nov GLUCAGON 1MG/GABRIELLA INJ EMERGENCY KIT Jan METOPROLOL SUCCINATE 200MG SA TAB March NEEDLE 18G 1.5IN Oct NEEDLE 22G 1.5IN Nov SYRINGE 2.5-3ML LUER LOCK TIP Nov TABLET CUTTER Sep O: Weight: 174.9 lb [79.5 kg] (01/12/2020 09:51) BMI: 29.6 Blood pressure: 122/62 (01/12/2020 09:51) Pulse: 53 (01/12/2020 09:51) Labs: Hgb A1c: Collection DT Spec A1C 11/10/2019 11:39 BLOOD 10.6 H 09/15/2019 11:44 BLOOD 9.9 H 03/24/2019 11:08 BLOOD 8.1 H Lipids: CHOL: 176 (09/23/18 08:55) 151 (03/24/19 11:08) HDL: 50 (09/23/18 08:55) 44 (03/24/19 11:08) LDL-TYLER: 102.8 (09/23/18 08:55) 85.2 (03/24/19 11:08) TGL: 116 (09/23/18 08:55) 109 (03/24/19 11:08) Metabolic Panel: Na: 143 mEq/L (12/01/2019 11:09) K: 3.4 mEq/L L (12/01/2019 11:09) Cl: 101 mEq/L (12/01/2019 11:09) C02: 34 mEq/L H (12/01/2019 11:09) Gluc: 99 mg/dL (12/01/2019 11:09) BUN: 19 mg/dL (12/01/2019 11:09) Creat: 1.48 mg/dL H (12/01/2019 11:09) EGFR: 46.5 (12/01/2019 11:09) Liver Function Test: ALB: 4.5 (12/01/19 11:09) ALKPHOS: 98 (12/01/19 11:09) ALT: 20 (12/01/19 11:09) AST: 29 (12/01/19 11:09) DBIL: 0.30 (12/01/19 11:09) TBIL: 0.7 (12/01/19 11:09) TP: 7.2 (12/01/19 11:09) Microalbumin: Microalbumin (CONC): 116.8 mg/dL (12/01/2019 11:09) Microalbumin/Creatinine Ratio: 651.8 mcg/mg cr H* (12/01/2019 11:09) TSH: 2.79 uIU/mL (09/23/2018 08:55) 25-OH Vit D: 42.9 ng/mL (07/07/2019 09:11) QUEST: ____ A/P: 1. Diabetes Goal A1c <7.5% met: No Goal FBG 90-140mg/dL met: YES Goal HS <160mg/dL met: No Statin: YES - LDL at goal <100mg/dL Metformin: NO -CKD (renal doctor will not allow despite discussion) Goal <140/90 met: mostly w/ a few higher readings lately - managed by Non-VA nephrology/PCP -BG readings remain elevated despite hig her insulin aspart doses likely d/t higher carbs w/ supper/snack and no physical activity in [facility]. Supsect daytime BG are well-controlled d/t high activity level (walks ~6miles/day) --Again reviewed importance of lowering carbs w/ supper and stopping HS snack, [place] refuses but is willing to continue to try different lower carb options. Based on this information will, --continue current regimen --continue to reduce carbs with supper and HS snack (given several healhty options) --Discussed lack of available labs at [facility] d/t NEIL, [place] plans to f/u with Dr. Grove and agreeable to no longer follow w/ [facility] to avoid dual care 2. Refills: none 3. RTC: None, Pt plans on following up w ith NON-VA PCP Dr. Grove. --Will fax this information to their office Learner: Patient Readiness to Learn: Accepting Barriers to Learning Noted: No Barriers Preferred Learning Style: Lecture, Printed Material Preferred language for discussing health care: Korean Time spent with pt: 30 min P:Outpt Medication Reconciliation: MEDICATION RECONCILIATION I have reviewed all medications the patient is taking with the patient and/or caregiver. This includes the Local Active VA prescriptions, Remote Active VA prescriptions, Non-VA Medications, recently VA prescriptions (90-180 days), recently discontinued VA prescriptions (90-180 days) and pending medication orders including over the counter and supplemental medications. I have made changes on the Active Outpatient Medication List and updated the Non-VA Medication List as appropriate. Patient was educated on the need to maintain a current medication list. Copy of medication list given to patient and/or caregiver. Patient verbalizes understanding: yes. Discrepancies reported by the patient referred to prescribing physician. Physician notified via additional signer. P[facility] PharmD Pharmacotherapy Rem V11: PHARMACIST INTERVENTIONS: TYPE 2 DIABETES MELLITUS Nonpharmacologic intervention made PBM PharmD Pharmacotherapy Rem V11: Refer or transition back to provider from [facility]noa/ ELEUTERIO LIVINGSTON [facility] Signed: 03/28/2020 16:32 ELEUTERIO LIVINGSTON MERGED WITH [facility]
--- OUTSIDE RECORDS SUMMARY | 2020-04-18 09:36 | XMS REPORT ---
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 Name Role Phone THOM CHAMBERS PCP [...] to Policy Woodard [facility] ([facility]) MEDICARE ADVANTAGE MCR ([facility]) Nov 09, 2017 [id number] [phone] SIMI COVARRUBIAS PATIENT [facility] (WNR) MEDICARE ADVANTAGE MCR ([facility]) Nov 09, 2017 [id number] [phone] SIMI COVARRUBIAS PATIENT [facility] ([facility]) MEDICARE ADVANTAGE MCR ([facility]) Nov 09, [id number] SIMI COVARRUBIAS PATIENT Selected Encounter This section includes the information on record at [place] for the Encounter. Date/Time Encounter Type Encounter Description Reason Provider Source Feb 07, 2020 02:00 PM Outpatient Encounter ADMIN PAT ACTIVTIES (MASNO NCT) [facility] [place] IHE Encounter Template Text not used by VA Assessments - Encounter Diagnoses No Data Provided for This Section Plan of Treatment: Future Appointments (+ 6 months) and Future Tests (+/- 45 day s) The Plan of Treatment section includes future care activities for the patient fr om all [place] treatment facilities. This section includes future appointments and fu ture orders which are active, pending or scheduled. Future Appointments This section includes appointments that were scheduled t o occur 6 months from the date of the Encounter, up to a maximum of 20 appointme nts. The data comes from all [facility]. Appointment Date/Time Appointment Type Appointment Facili ty Name Feb 29, 2020 02:30 PM AMBULATORY - NONE [facility] [place] March 20, 2020 08:00 AM AMBULATORY - MEDICINE [facility] March 28, 2020 11:30 AM AMBULATORY - NONE [facility] [place] Apr 19, 2020 11:00 AM AMBULATORY - NONE [facility] [place] [facility] Apr 26, 2020 10:45 AM AMBULATORY - NONE [facility] Active, Pending, [...] the Encounter. The data comes from all [facility]. Test Date/Time Test Type Test Details Facility Name March 20, 2020 12:00 AM Laboratory - Chemistry Order LIPID PROFILE(HDL,TRIG,CHOL,LDL) GREEN TOP TUBE PLASMA SP ONCE [facility] March 20, 2020 08:53 AM Consult Order LE-PODIATRY CONSUL TS OUTPT-[id number] [facility] Program Therapist's [facility] March 20, 2020 08:53 AM Consult Order COMMUNITY CARE-EK EYE OPHTHALMOLOGY-[id number] [facility] Program Therapist's [facility] March 20, 2020 08:53 AM Consult Order TO-RENAL OUTPT-[id number] [facility] Program Therapist's [facility] Surgical Procedures: All associated to the encounter [...] patient. The data comes from a ll [place] treatment facilities. It does not list Allergies/ADRs that were removed or entered in error. Some allergies/ADRs may be reported in t he Immunization section. Allergen Event Date Event Type Reaction(s) Severity Source LISINOPRIL Dec 01, 2017 Propensity to adverse reactions to drug (disorder) Renal impairment [facility] 15 METFORMIN Dec 01, 2017 Propensity to adverse reactions to drug (disorder) Renal impairment [facility], [facility] 15 Medications: VA dispensed (-15 months) and Non-VA Documented (Obtained Outside A) Section Date Range: 1) prescriptions processed by a VA pharmacy in the last 15 [facility], and 2) all medications recorded in the [place] medical record as "non-VA medic ations". Pharmacy terms refer to [place] pharmacy's work on prescriptions. VA patient s are advised to take their medications as instructed by their health care team. The data comes from all [place] treatment facilities. Glossary of Pharmacy Terms:Active = A prescription that can be filled at the local [place] pharmacy.Active: On Hold = An active prescription that will not be filled until pharmacy resolves the issue.Active: Susp = An active prescription that is not scheduled to be filled yet.Clinic Order = A medication received during a visit to a [place] clinic or emergency department (currently not available).Discontinued [...] TIMES A DAY 400 Sep 12, 2020 [id number] Feb 29, 2020 BALELEUTERIO KONG [facility] ACCU-CHEK ROSINA PLUS (GLUCOSE) TEST STRIP Discontinued USE 1 STRIP FOR TESTING FOUR TIMES A DAY 400 Sep 15, 2019 [id number] Jun 13, 2019 BALTRUSAIT ISELEUTERIO [facility] ALCOHOL PREP PAD Discontinued USE 1 PAD ON SKIN FOUR TIMES A DAY 40 0 Apr 25, 2020 [id number] Nov 29, 2019 BALANGELIKAUSAELEUTERIO QUIGLEY [facility] [place] ALCOHOL PREP PAD Discontinued USE 1 PAD ON SKIN FOUR TIMES A DAY 40 0 Sep 15, 2019 [id number] Apr 18, 2019 BALELEUTERIO KONG [facility] ALLOPURINOL 100MG TAB Active TAKE ONE TABLET BY MOUTH ONCE A DAY FOR GOUT. TAKE WITH PLENTY OF WATER 90 Sep 23, 2020 [id number] Mar 05, 2020 SILVINA CHAMBERS [facility] [place] ALLOPURINOL 100MG TAB Discontinued TAKE ONE TABLET BY MOUTH ONCE A DAY FOR GOUT. TAKE WITH PLENTY OF WATER 90 Dec 30, 2019 [id number] Sep 17, 2019 THOM SHARPE [facility] [place] ALOGLIPTIN 12.5MG TAB Active TAKE ONE TABLET BY MOUTH O NCE A DAY FOR DIABETES 90 Sep 12, 2020 [id number] Mar 04, 2020 ELEUTERIO LIVINGSTON [facility] [place] ALOGLIPTIN 12.5MG TAB Discontinued TAKE ONE TABLET BY MOUTH ONCE A DAY FOR DIABETES 90 Dec 22, 2019 [id number] Jun 18, 2019 ELEUTERIO LIVINGSTON [facility] [place] AMLODIPINE BESYLATE 10MG TAB Discontinued TAKE ONE TA BLET BY MOUTH EVERY MORNING FOR HEART/BLOOD PRESSURE 90 Jun 10, 2019 [id number] Feb 25, 2019 MONIKA HAMMER [facility] [place] AMLODIPINE BESYLATE 10MG TAB TAKE ONE TA BLET BY MOUTH EVERY MORNING FOR HEART/BLOOD PRESSURE 90 Apr 12, 2020 [id number] Feb 10, 2020 SILVINA CHAMBERS [facility] ASPIRIN 81MG TAB,CHEWABLE Non-VA CHEW ONE TABLET BY MOUTH ONCE A DAY Non-VA Documented by: MEGAN HAWK nted at: [facility] [place] ATORVASTATIN CA 20MG TAB Active TAKE ONE TABLET BY MOUTH ONCE A DAY FOR CHOLESTEROL. REPORT ANY UNEXPLAINED MUSCLE PAIN OR WEAKNESS TO YOUR DOCTOR. 90 Jan 02, 2021 [id number] March 24, 2020 NELLA GROVE [facility] 15 ATORVASTATIN CA 40MG TAB Discontinued TAKE ONE-HALF T ABLET BY MOUTH AT BEDTIME FOR CHOLESTEROL. REPORT ANY UNEXPLAINED MUSCLE PAIN OR WEAKNESS TO YOUR DOCTOR. 45 Jul 15, 2020 [id number] Oct 14, 2019 THOM HCAMBERS [facility] [place] ATORVASTATIN CA 40MG TAB Discontinued TAKE ONE-HALF T ABLET BY MOUTH AT BEDTIME FOR CHOLESTEROL. REPORT ANY UNEXPLAINED MUSCLE PAIN OR WEAKNESS TO YOUR DOCTOR. 45 Oct 12, 2019 [id number] Jul 16, 2019 [facility] [place] [facility] CALCIUM CARBONATE 500MG TAB,CHEWABLE Non-VA CHEW ONE TABLET BY MOUTH PRN Non-VA Documented by: THOM CHAMBERS nted at: [facility] CHLORTHALIDONE 25MG TAB Active TAKE ONE TABLET BY MOUTH ONCE A DAY 90 Jul 01, 2020 [id number] March 19, 2020 MONIKA HAMMER [facility] [place] CHLORTHALIDONE 25MG TAB Discontinued TAKE ONE TABLET BY MOUTH ONCE A DAY 90 Jun 16, 2019 [id number] Apr 12, 2019 MONIKA HAMMER [facility] [place] CHOLECALCIFEROL 1000UNT TAB Non-VA TAKE ONE TABLET BY MOUTH EVERY OTHER DAY Non-VA Docume nted by: MEGAN HAWK Docume nted at: [facility] [place] [facility] CYANOCOBALAMIN 1000MCG/ML INJ Active INJECT 100 0 MCG (1 ML) INTRAMUSCULARLY EVERY MONTH FOR B12 SUPPLEMENTATION. 3 Nov 03, 2020 [id number] Apr 23, 2020 THOM CHAMBERS [facility] [place] CYANOCOBALAMIN 1000MCG/ML INJ Discontinued INJECT 100 0 MCG (1 ML) INTRAMUSCULARLY EVERY MONTH FOR B12 SUPPLEMENTATION. 3 Nov 17 0 [id number] Aug 07, 2019 THOM CHAMBERS [facility] [place] DIPHENHYDRAMINE HCL 25MG CAP Non-VA TAKE 1 CAPSULE BY MOUTH PRN Non-VA Documented by: THOM CHAMBERS nted at: [facility] DOCUSATE NA 100MG CAP No n-VA TAKE 2 CAPSULES BY MOUTH ONCE A DAY Non-VA Documented by: THOM CHAMBERS nted at: [facility] FISH OIL 1000MG (500MG DHA/EPA) CAP,ORAL Non-VA TAKE 1 CAPSULE BY MOUTH ONCE A DAY Non-VA Documented by: MEGAN HAWK nted at: [facility] [place] [facility] GABAPENTIN 100MG CAP Active TAKE 1 CAPSULE BY M OUTH EVERY MORNING AND TAKE 1 CAPSULE BY MOUTH AT NOON AND TAKE 2 CAPSULES BY MOUTH AT BEDTIME 360 Jul 06, 2020 [id number] March 31, 2020 ELEUTERIO LIVINGSTON [facility] [place] GLUCAGON 1MG/GABRIELLA INJ,EMERGENCY KIT INJEC T 1MG SUBCUTANEOUSLY NEEDED FOR SEVERE HYPOGLYCEMIA 1 Nov 30, 2019 [id number] Nov 03, 2019 REYES THOM [facility] [place] INSULIN,ASPART,HUMAN 100U/ML,NOVOLOG,FLEXPEN,3ML Active: On Hold INJECT 20 UNITS SUBCUTANEOUSLY BEFORE BREAKFAST AND INJECT 20 UNITS BEFORE LUNCH AND INJECT 26 UNITS BEFORE SUPPER AND INJECT 24 UNITS SNACK FOR BLOOD SUGAR CONTROL. ADMINISTER 10 MINUTES BEFORE FOOD DIRECTED. REFRIGERATE UN-OPENED PENS. DISCARD CARTRIDGE 28 DAYS AFTER OPENING. PLUS CORRECTION Mar 01, 2021 [id number] ELEUTERIO LIVINGSTON [facility] [place] INSULIN,ASPART,HUMAN 100U/ML,NOVOLOG,FLEXPEN,3ML Discontinue d INJECT 20 UNITS SUBCUTANEOUSLY BEFORE BREAKFAST AND INJECT 20 UNITS BEFORE LUNCH AND INJECT 24 UNITS BEFORE SUPPER AND INJECT 24 UNITS SNACK FOR BLOOD SUGAR CONTROL. ADMINISTER 10 MINUTES BEFORE FOOD DIRECTED. REFRIGERATE UN-OPENED PENS. DISCARD CARTRIDGE 28 DAYS AFTER OPENING. PLUS CORRECTION Jan 26, 2021 [id number] Jan 28, 2020 ELEUTERIO LIVINGSTON [facility] [place] [facility] INSULIN,ASPART,HUMAN 100U/ML,NOVOLOG,FLEXPEN,3ML Discontinue d INJECT 20 UNITS SUBCUTANEOUSLY BEFORE MEALS FOR BLOOD SUGAR CONTROL. ADMINISTER 10 MINUTES BEFORE FOOD DIRECTED. REFRIGERATE UN-OPENED PENS. DISCARD CARTRIDGE 28 DAYS AFTER OPENING. PLUS CORRECTION FOR BLOOD SUGAR CONTROL. ADMINISTER 10 MINUTES BEFORE FOOD DIRECTED. REFRIGERATE UN-OPENED PENS. DISCARD CARTRIDGE 28 DAYS AFTER OPENING. PLUS CORRECTION 30 Nov 16, 2020 [id number] Nov 16 ELEUTERIO [facility]ON [facility] [place] [facility] INSULIN,ASPART,HUMAN 100U/ML,NOVOLOG,FLEXPEN,3ML Discontinue d INJECT 15 UNITS SUBCUTANEOUSLY EVERY MORNING BEFORE MEAL AND INJECT 15 UNITS WITH LUNCH AND INJECT 15 UNITS WITH SUPPER AND INJECT 20 UNITS WITH SNACK FOR BLOOD SUGAR CONTROL. ADMINISTER 10 MINUTES BEFORE FOOD DIRECTED. REFRIGERATE UN-OPENED PENS. DISCARD CARTRIDGE 28 DAYS AFTER OPENING. Dec 22, 2019 [id number] Oct 12, 2019 ELEUTERIO LIVINGSTON [facility] [place] [facility] INSULIN,GLARGINE,HUMAN 100 UNIT/ML INJ,SOLOSTAR,3ML Active INJECT 50 UNITS SUBCUTANEOUSLY EVERY MORNING FOR BLOOD SUGAR CONTROL. ADMINISTER AT SAME TIME EACH DAY DIRECTED. DISCARD ANY OPEN CARTRIDGE AFTER 28 DAYS. Sep 23, 2020 [id number] Jan 28, 2020 ELEUTERIO LIVINGSTON [facility] [place] [facility] INSULIN,GLARGINE,HUMAN 100 UNIT/ML INJ,SOLOSTAR,3ML Disconti nued INJECT 45 UNITS SUBCUTANEOUSLY EVERY MORNING FOR BLOOD SUGAR CONTROL. ADMINISTER AT SAME TIME EACH DAY DIRECTED. DISCARD ANY OPEN CARTRIDGE AFTER 28 DAYS. Oct 23, 2019 [id number] Aug 30, 2019 ELEUTERIO LIVINGSTON [facility] [place] [facility] LACTOBACILLUS ACIDOPHILUS TAB,CHEWABLE Non-VA CHEW ONE TABLET BY MOUTH ONCE A DAY Non-VA Documented by: MEGAN HAWKed at: [facility] LANCET,SOFTCLIX Active USE LANCET 5 TIME S A DAY FOR TESTING BLOOD GLUCOSE DIRECTED 500 Dec 28, 2020 [id number] March 19, 2020 LYNDATRELEUTERIO ROJAS [facility] LANCET,SOFTCLIX Discontinued USE LANCET 5 TIME S A DAY FOR TESTING BLOOD GLUCOSE DIRECTED 500 Jan 11, 2020 [id number] Sep 29, 2019 LYNDATRUSA ITIS,ELEUTERIO [facility] MAGNESIUM OXIDE 400MG TAB Non-VA TAKE ONE TABLET BY MOUTH ONCE A DAY Non-VA Documented by: MEGAN HAWKed at: [facility] METOPROLOL SUCCINATE 200MG TAB,SA TAKE O NE-HALF TABLET BY MOUTH EVERY EVENING FOR HEART/BLOOD PRESSURE. SWALLOW WHOLE, DO NOT CRUSH OR CHEW (TABLETS MAY BE CUT IN HALF). 45 March 18, 2020 [id number] Dec 28, 2019 STANISLAV HAMMER [facility] NEEDLE 22G 1.5IN USE NEEDLE FOR EVERY MONTH 1 Nov 12, 2019 [id number] Feb 07, 2019 ADELAIDA CLIFFORD [facility] [place] NEEDLE,PEN 31G,5MM Discontinued USE NEEDLE SUBCUTANE OUSLY 5 TIMES A DAY - THIS IS A SINGLE USE NEEDLE AND SHOULD BE DISCARDED AFTER USE 500 Dec 21, 2019 [id number] Sep 28, 2019 BALTRUSAITIS,ELEUTERIO Larry [facility] [place] [facility] POTASSIUM CHLORIDE 10MEQ TAB,SA Active TAKE TWO TABLETS BY MOUTH TWO TIMES A DAY FOR POTASSIUM SUPPLEMENTATIONTAKE WITH FOOD 360 Dec 12, 2020 [id number] Mar 02, 2020 [facility] POTASSIUM CHLORIDE 10MEQ TAB,SA Discontinued TAKE ONE TABLET BY MOUTH THREE TIMES A DAY WITH MEALS FOR POTASSIUM SUPPLEMENTATIONTAKE WITH FOOD 180 March 16, 2020 [id number] Nov 29, 2019 BALTRUSAITIS,ELEUTERIO Larry [facility] [place] POTASSIUM CHLORIDE 10MEQ TAB,SA Discontinued TAKE ONE TABLET BY MOUTH THREE TIMES A DAY WITH MEALS FOR POTASSIUM SUPPLEMENTATIONTAKE WITH FOOD 180 May 26, 2019 [id number] Jan 24, 2019 YANELY QUINTERO [facility] [place] SYRINGE 2.5-3ML/NDL 25G 1IN Active USE 1 SYRINGE EVERY MONTH 3 Feb 21, 2021 [id number] March 20, 2020 [facility] SYRINGE 2.5-3ML/NDL 25G 1IN Discontinued USE 1 SYRINGE EVERY Thu 3 March 18, 2020 [id number] Dec 21, [address] [facility] TESTOSTERONE CYPIONATE 200MG/ML INJ,1ML (IN OIL) Active INJECT 200 MG (1 ML) INTRAMUSCULARLY EVERY MONTH FOR HORMONE REPLACEMENT 1 May 18, 2020 [id number] April 06, 2020 ADELAIDA CLIFFORD [facility] [place] TESTOSTERONE CYPIONATE 200MG/ML INJ,1ML (IN OIL) Discontinue d INJECT 200 MG (1 ML) INTRAMUSCULARLY EVERY MONTH FOR HORMONE REPLACEMENT March 25, 2020 [id number] Oct 25, 2019 ADELAIDA CLFIFORD [facility] [place] TESTOSTERONE CYPIONATE 200MG/ML INJ,1ML (IN OIL) Discontinue d INJECT 200 MG (1 ML) INTRAMUSCULARLY EVERY MONTH FOR HORMONE REPLACEMENT 1 Nov 06, 2019 [id number] Sep 25, 2019 ADELAIDA CLIFFORD [facility] [place] TESTOSTERONE CYPIONATE 200MG/ML INJ,1ML (IN OIL) Discontinue d INJECT 200 MG (1 ML) INTRAMUSCULARLY EVERY MONTH FOR HORMONE REPLACEMENT 1 May 14, 2019 [id number] Apr 10, 2019 ADELAIDA CLIFFORD [facility] [place] TRAMADOL HCL 50MG TAB Active TAKE 1 TO 2 TABLET S BY MOUTH EVERY 6 HOURS NEEDED FOR PAIN 180 Jul 21, 2020 [id number] March 30, 2020 [facility] TRAMADOL HCL 50MG TAB Discontinued TAKE 1 TO 2 TABLET S BY MOUTH EVERY 6 HOURS NEEDED FOR PAIN 180 Jun 06, 2020 [id number] Jan 11, 2020 [facility] TRAMADOL HCL 50MG TAB Discontinued TAKE 1 TO 2 TABLET S BY MOUTH EVERY 6 HOURS NEEDED FOR PAIN 180 Jun 06, 2020 [id number] Dec 06, 2019 [facility] TRAMADOL HCL 50MG TAB Discontinued TAKE 1 TO 2 TABLET S BY MOUTH EVERY 6 HOURS NEEDED FOR PAIN 180 Dec 14, 2019 [id number] Nov 15, 2019 DANTE VALVERDE [facility] [place] TRAMADOL HCL 50MG TAB Discontinued TAKE 1 TO 2 TABLET S BY MOUTH EVERY 6 HOURS NEEDED FOR PAIN 180 Jul 06, 2019 [id number] May 26, 2019 NELLA GROVE [facility] [place] TRIAMCINOLONE ACETONIDE 0.5% CREAM,TOP Active A PPLY SPARINGLY TO AFFECTED AREA ONCE A DAY NEEDED FOR RASH 45 Jul 15, 2020 [id number] April 01 0 THOM CHAMBERS [facility] [place] TRIAMCINOLONE ACETONIDE 0.5% CREAM,TOP Discontinued A PPLY SPARINGLY TO AFFECTED AREA ONCE A DAY NEEDED FOR RASH 45 Oct 12, 2019 [id number] Jul THOM CHAMBERS [facility] [place] Problems (Conditions): All historical and current Section Date Range: From patient's date of to the date document was create d. This section includes a list of Problems (Conditions) know n to [facility] for the patient. It includes both active and inacti ve problems (conditions). The data comes from all [place] treatment facilities. Problem Status Problem Code Date of Onset Date of Resolution Comm ent(s) Provider Source Basal cell carcinoma of scalp Active [id number] THOM CHAMBERS [facility] [place] Chronic back pain Active [id number] TERRIE CHAMBERS [facility] [place] Chronic kidney disease stage 3 Active [id number] [facility] [place] Constipation Active 30886538 [facility] DEEJAY [facility] [place] Diabetes mellitus Active 99113301 THOM CHAMBERS [facility] [place] Diabetic neuropathy Active 569713012 Neha CHAMBERS [facility] [place] Essential hypertension Active 74939701 THOM CHAMBERS [facility] [place] Hyperlipidemia Active 75921408 THOM CHAMBERS [facility] [place] Hypogonadism Active 26067371 RE[facility] DEEJAY [facility] [place] Sleep apnea Active 97099367 THOM CHAMBERS RN [facility] [place] Radiology Reports: +/- 30 days of the encounter No Data Provided for This Section Pathology Reports: +/- 30 days of the encounter No Data Provided for This Section Encounter Notes: All associated encounter notes This section contains the clinical notes associated to the Encounter. Date/Time Encounter Note(s) Provider Source Feb 07, 2020 02:00 PM CARE MANAGEMENT NOTE: LOCAL TITLE: EK-PACT CARE MANAGEMENT STANDARD TITLE: CARE MANAGEMENT NOTE DATE OF NOTE: FEB 07, 2020@14:00 ENTRY DATE: FEB 07, 2020@14:00:16 AUTHOR: DARIO DUNCAN COSIGNER: URGENCY: STATUS: COMPLETED Talked with Pt on phone about his upcoming appt for his Testosterone inj. Pt asked if he could just get it as a drive by , but he was informed that it was an injection to be done in hip. Reminded pt that he has a [facility] primary PCP that he sees, Dr Grove, that could be done thru his office. Pt asked if when this COVID-19 was done and over with could he continue his care here at [facility]. Informed pt that it is best that he maintain only 1 PCP. Pt V/U Pt states he thought he had appt coming up in a couple months Cancel myLINGO appt February 08. pt will get Testosterone inj thru Dr Grove office /es/ DARIO DUNCAN LPN Signed: 02/07/2020 14:05 Receipt Acknowledged By: 02/07/2020 14:29 /es/ REMY RODRIGUEZ hospital medical assistant 02/07/2020 14:32 /es/ DARIO CARTY [facility]
--- OUTSIDE RECORDS SUMMARY | 2020-04-18 09:36 | XMS REPORT | Encounter Summary ---
Author Author [facility] Organization Department [facility] Address [address] [place] [phone] Phone Unavailable Care Team Providers Care Hot Molder Name Role Phone THOM CHAMBERS PCP Unavailable [...] to Policy Woodard [employer] REP (R) MEDICARE ADVANTAGE MCR ([facility]) Nov 09, 2017 [id number] [phone] SIMI COVARRUBIAS PATIENT [employer] MED REP (WNR) MEDICARE ADVANTAGE MCR ([facility]) Nov 09, 2017 [id number] [phone] SIMI COVARRUBIAS PATIENT AETNA MCR (WN) MEDICARE ADVANTAGE MCR ([facility]) Nov 09, 2019 [id number] SIMI COVARRUBIAS PATIENT Selected Encounter This section includes the information on record at MS for the Encounter. Date/Time Encounter Type Encounter Description Reason Provider Source March 20, 2020 08:00 AM Outpatient Encounter TELEPHONE PRIMARY CAR E ICD-10-CM E11.9 Type 2 diabetes mellitus without complications with Provider Comments: Diabetes mellitus (SCT [id number]) THOM CHAMBERS [facility] IHE Encounter Template Text not used by MS Assessments - Encounter Diagnoses This section includes the primary and secondary diag noses documented for the Encounter. Date/Time Primary/Secondary Diagnosis Diagnosis Name Provider Source March 20, 2020 08:00 AM PRIMARY Type 2 diabetes mellitus w ithout complications REMY RODRIGUEZ [facility] March 20, 2020 08:00 AM SECONDARY Abn lev hormones i n specimens from male genital organs MICHAELREMY R [facility] March 20, 2020 08:00 AM SECONDARY Basal cell carcinoma of sk in of scalp and neck MICHAELREMY [facility] March 20, 2020 08:00 AM SECONDARY Chronic kidney disease, st age 3 (moderate) [facility] March 20, 2020 08:00 AM SECONDARY Constipation, unspecified MICHAEL [facility] March 20, 2020 08:00 AM SECONDARY Essential (primary) hypert ension MICHAELREMY [facility] March 20, 2020 08:00 AM SECONDARY Hyperlipidemia, unspecified [facility] March 20, 2020 08:00 AM SECONDARY Low back pain [facility] March 20, 2020 08:00 AM SECONDARY Sleep apnea, unspecified [facility]EL [facility] March 20, 2020 08:00 AM SECONDARY Type 2 diabetes me llitus with diabetic neuropathy, unsp [facility] Plan of Treatment: Future Appointments (+ 6 months) and Future Tests (+/- 45 day s) The Plan of Treatment section includes future care activities for the patient fr om all MS treatment facilities. This section includes future appointments and fu ture orders which are active, pending or scheduled. Future Appointments This section includes appointments that were scheduled t o occur 6 months from the date of the Encounter, up to a maximum of 20 appointme nts. The data comes from all MS treatment facilities. Appointment Date/Time Appointment Type Appointment Facili ty Name March 28, 2020 11:30 AM AMBULATORY - NONE [facility] [place] Apr 19, 2020 11:00 AM AMBULATORY - NONE [facility] [place] Apr 26, 2020 10:45 AM AMBULATORY - NONE [facility] Active, Pending, [...] the Encounter. The data comes from all MS treatment facilities. Test Date/Time Test Type Test Details Facility Name March 20, 2020 12:00 AM Laboratory - Chemistry Order LIPID PROFILE(HDL,TRIG,CHOL,LDL) GREEN TOP TUBE PLASMA SP ONCE [facility] March 20, 2020 08:53 AM Consult Order LE-PODIATRY CONSUL TS OUTPT-[id number] [facility] March 20, 2020 08:53 AM Consult Order COMMUNITY CARE-EK EYE OPHTHALMOLOGY-[id number] [facility] March 20, 2020 08:53 AM Consult Order TO-RENAL OUTPT-[id number] [id number] [facility] April 05, 2020 12:00 AM Laboratory - Chemistry Order LIPID PROFILE(HDL,TRIG,CHOL,LDL) GREEN TOP TUBE PLASMA SP ONCE [facility] April 05, 2020 12:00 AM Laboratory - Chemistry Order HEMOGLOBI N A1C LAVENDER TOP BLOOD SP [facility] April 05, 2020 12:00 AM Laboratory - Chemistry Order COMPREHEN SIVE METABOLIC PANEL GREEN TOP TUBE PLASMA SP ONCE [facility] April 05, 2020 12:00 AM Laboratory - Chemistry Order CBC & DIF F 5 ML LAVENDER TOP BLOOD SP ONCE [facility] April 05, 2020 12:00 AM Laboratory - Chemistry Order TSH SST GEL S LIMA SP ONCE [facility] April 05, 2020 12:00 AM Laboratory - Chemistry Order PROSTATIC SPECIFIC ANTIGEN(TOTAL) SST GEL SERUM SP [facility] April 05, 2020 12:00 AM Laboratory - Chemistry Order URINALYSI S URIN,RAND URINE SP [facility] April 05, 2020 12:00 AM Laboratory - Chemistry Order MICROALBU MIN (CO,EK) URIN,RAND URINE SP [facility] Surgical Procedures: All associated to the encounter [...] Use (All prior to enco unter date) This section includes the most current, and the historical, smoking and tobacco- related health factors from the MS facility where the Encounter took place. Current Smoking Status This section includes the most current smoking, or tobacco -related health factor, from the MS facility where the Encounter took place. Date/Time Current Smoking Status Comment Facility Feb 17, 2020 09:33 AM VA-TOBACCO QUIT 15 YRS OR MORE [facility] Tobacco Use History This section includes a history of the smoking, or tobacco -related health factors, that were collected on or before the date of the Encoun ter. The data comes from the MS facility where the Encounter took place. Date/Time Smoking Status/Tobacco Use Comment [facility] ity Feb 17, 2020 09:33 AM VA-TOBACCO QUIT 15 YRS OR MORE [facility] Nov 03, 2018 07:59 AM VA-TOBACCO FORMER USER [facility] Nov 03, 2018 07:59 AM MS-TOBACCO QUIT 15 YRS OR MORE [facility] Oct 23, 2017 07:35 AM TOBACCO LIFETIME NON-USER [facility] Advance Directives: All historical and current No Data Provided for This Section Allergies and Adverse Reactions (ADRs): All historical and current Section Date Range: From patient's date of to the date document was create d. This section includes Allergies and Adverse Reactions (ADR s) on record with VA for the patient. The data comes from a ll [facility] facilities. It does not list Allergies/ADRs that were removed or entered in error. Some allergies/ADRs may be reported in t he Immunization section. Allergen Event Date Event Type Reaction(s) Severity Source LISINOPRIL Dec 01, 2017 Propensity to adverse reactions to drug (disorder) Renal impairment [facility] 15 METFORMIN Dec 01, 2017 Propensity to adverse reactions to drug (disorder) Renal impairment [facility] 15 Medications: VA dispensed (-15 months) and Non-VA Documented (Obtained Outside V A) Section Date Range: 1) prescriptions processed by a VA pharmacy in the last 15 m [facility], and 2) all medications recorded in the MS medical record as "non-VA medic ations". Pharmacy terms refer to VA pharmacy's work on prescriptions. VA patient s are advised to take their medications as instructed by their health care team. The data comes from all MS treatment facilities. Glossary of Pharmacy Terms:Active = A prescription that can be filled at the local MS pharmacy.Active: On Hold = An active prescription that will not be filled until pharmacy resolves the issue.Active: Susp = An active prescription that is not scheduled to be filled yet.Clinic Order = A medication received during a visit to a MS clinic or emergency department (currently not available).Discontinued = A prescription stopped by a MS provider. It is no longer available to be filled. = A prescription which is too old to fill. This does not refer to the expiration date of the medication in the container. Non-VA = A medication that came from someplace other than a MS pharmacy. This may be a prescription from either the MS or other providers that was filled outside the MS. Or, it may be an over the [...] TIMES A DAY 400 Sep 12, 2020 [id number] Feb 29, 2020 YARAELEUTERIO Laron [facility] ACCU-CHEK ROSINA PLUS (GLUCOSE) TEST STRIP Discontinued USE 1 STRIP FOR TESTING FOUR TIMES A DAY 400 Sep 15, 2019 [id number] Jun 13, 2019 YAYAIT ISELEUTERIO [facility] ALCOHOL PREP PAD Discontinued USE 1 PAD ON SKIN FOUR TIMES A DAY 40 0 Apr 25, 2020 [id number] Nov 29, 2019 ELEUTERIO LIVINGSTON [facility] [place] ALCOHOL PREP PAD Discontinued USE 1 PAD ON SKIN FOUR TIMES A DAY 40 0 Sep 15, 2019 [id number] Apr 18, 2019 ELEUTERIO LIVINGSTON [facility] ALLOPURINOL 100MG TAB Active TAKE ONE TABLET BY MOUTH ONCE A DAY FOR GOUT. TAKE WITH PLENTY OF WATER 90 Sep 23, 2020 [id number] Mar 05, 2020 SILVINA CHAMBERS [facility] [place] ALLOPURINOL 100MG TAB Discontinued TAKE ONE TABLET BY MOUTH ONCE A DAY FOR GOUT. TAKE WITH PLENTY OF WATER 90 Dec 30, 2019 [id number] Sep 17, 2019 THOM SHARPE [facility] [place] ALOGLIPTIN 12.5MG TAB Active TAKE ONE TABLET BY MOUTH O NCE A DAY FOR DIABETES 90 Sep 12, 2020 [id number] Mar 04, 2020 ELEUTERIO LIV[place]ON [facility] [place] ALOGLIPTIN 12.5MG TAB Discontinued TAKE ONE TABLET BY MOUTH ONCE A DAY FOR DIABETES 90 Dec 22, 2019 [id number] Jun 18, 2019 ELEUTERIO LIVINGSTON [facility] [place] AMLODIPINE BESYLATE 10MG TAB Discontinued TAKE ONE TA BLET BY MOUTH EVERY MORNING FOR HEART/BLOOD PRESSURE 90 Jun 10, 2019 [id number] Feb 25, 2019 MONIKA HAMMER [facility] [place] AMLODIPINE BESYLATE 10MG TAB TAKE ONE TA BLET BY MOUTH EVERY MORNING FOR HEART/BLOOD PRESSURE 90 Apr 12, 2020 [id number] Feb 10, 2020 SILVINA CHAMBERS [facility] ASPIRIN 81MG TAB,CHEWABLE Non-VA CHEW ONE TABLET BY MOUTH ONCE A DAY Non-VA Documented by: MEGAN HAWK nted at: [facility] [place] [facility] ATORVASTATIN CA 20MG TAB Active TAKE ONE TABLET BY MOUTH ONCE A DAY FOR CHOLESTEROL. REPORT ANY UNEXPLAINED MUSCLE PAIN OR WEAKNESS TO YOUR DOCTOR. 90 Jan 02, 2021 [id number] March 24, 2020 NELLA GROVE [facility] ATORVASTATIN CA 40MG TAB Discontinued TAKE ONE-HALF T ABLET BY MOUTH AT BEDTIME FOR CHOLESTEROL. REPORT ANY UNEXPLAINED MUSCLE PAIN OR WEAKNESS TO YOUR DOCTOR. 45 Jul 15, 2020 [id number] Oct 14, 2019 THOM CHAMBERS [facility] [place] ATORVASTATIN CA 40MG TAB Discontinued TAKE ONE-HALF T ABLET BY MOUTH AT BEDTIME FOR CHOLESTEROL. REPORT ANY UNEXPLAINED MUSCLE PAIN OR WEAKNESS TO YOUR DOCTOR. 45 Oct 12, 2019 [id number] Jul 16, 2019 THOM CHAMBERS [facility] [place] CALCIUM CARBONATE 500MG TAB,CHEWABLE Non-VA CHEW ONE TABLET BY MOUTH PRN Non-VA Documented by: THOM CHAMBERS nted at: [facility] CHLORTHALIDONE 25MG TAB Active TAKE ONE TABLET BY MOUTH ONCE A DAY 90 Jul 01, 2020 [id number] March 19, 2020 MONIKA HAMMER [facility] [place] CHLORTHALIDONE 25MG TAB Discontinued TAKE ONE TABLET BY MOUTH ONCE A DAY 90 Jun 16, 2019 [id number] Apr 12, 2019 MONIKA HAMMER [facility] [place] [facility] CHOLECALCIFEROL 1000UNT TAB Non-VA TAKE ONE TABLET BY MOUTH EVERY OTHER DAY Non-VA Docume nted by: MEGAN HAWK Docume nted at: [facility] [place] [facility] CYANOCOBALAMIN 1000MCG/ML INJ Active INJECT 100 0 MCG (1 ML) INTRAMUSCULARLY EVERY MONTH FOR B12 SUPPLEMENTATION. 3 Nov 03, 2020 [id number] Apr 23, 2020 [facility] [place] [facility] CYANOCOBALAMIN 1000MCG/ML INJ Discontinued INJECT 100 0 MCG (1 ML) INTRAMUSCULARLY EVERY MONTH FOR B12 SUPPLEMENTATION. 3 Nov 17 0 [id number] Aug 07, 2019 [facility] [place] [facility] DIPHENHYDRAMINE HCL 25MG CAP Non-VA TAKE 1 CAPSULE BY MOUTH PRN Non-VA Documented by: THOM CHAMBERS Docume nted at: [facility] DOCUSATE NA 100MG CAP No n-VA TAKE 2 CAPSULES BY MOUTH ONCE A DAY Non-VA Documented by: THOM CHAMBERS Docsammi nted at: [facility] FISH OIL 1000MG (500MG DHA/EPA) CAP,ORAL Non-VA TAKE 1 CAPSULE BY MOUTH ONCE A DAY Non-VA Documented by: MEGAN HAWK Docume nted at: [facility] [place] [facility] GABAPENTIN 100MG CAP Active TAKE 1 CAPSULE BY M OUTH EVERY MORNING AND TAKE 1 CAPSULE BY MOUTH AT NOON AND TAKE 2 CAPSULES BY MOUTH AT BEDTIME 360 Jul 06, 2020 [id number] March 31, 2020 ELEUTERIO LIV[place]ON [facility] [place] GLUCAGON 1MG/GABRIELLA INJ,EMERGENCY KIT INJEC T 1MG SUBCUTANEOUSLY NEEDED FOR SEVERE HYPOGLYCEMIA 1 Nov 30, 2019 [id number] Nov 03, 2019 [facility] [place] [facility] INSULIN,ASPART,HUMAN 100U/ML,NOVOLOG,FLEXPEN,3ML Active: On Hold INJECT 20 UNITS SUBCUTANEOUSLY BEFORE BREAKFAST AND INJECT 20 UNITS BEFORE LUNCH AND INJECT 26 UNITS BEFORE SUPPER AND INJECT 24 UNITS SNACK FOR BLOOD SUGAR CONTROL. ADMINISTER 10 MINUTES BEFORE FOOD DIRECTED. REFRIGERATE UN-OPENED PENS. DISCARD CARTRIDGE 28 DAYS AFTER OPENING. PLUS CORRECTION Mar 01, 2021 [id number] ELEUTERIO LIVINGSTON [facility] [place] [facility] INSULIN,ASPART,HUMAN 100U/ML,NOVOLOG,FLEXPEN,3ML Discontinue d INJECT 20 UNITS SUBCUTANEOUSLY BEFORE BREAKFAST AND INJECT 20 UNITS BEFORE LUNCH AND INJECT 24 UNITS BEFORE SUPPER AND INJECT 24 UNITS SNACK FOR BLOOD SUGAR CONTROL. ADMINISTER 10 MINUTES BEFORE FOOD DIRECTED. REFRIGERATE UN-OPENED PENS. DISCARD CARTRIDGE 28 DAYS AFTER OPENING. PLUS CORRECTION 30 Jan 26, 2021 [id number] Jan 28, 2020 ELEUTERIO LIVINGSTON [facility] [place] [facility] INSULIN,ASPART,HUMAN 100U/ML,NOVOLOG,FLEXPEN,3ML Discontinue d INJECT 20 UNITS SUBCUTANEOUSLY BEFORE MEALS FOR BLOOD SUGAR CONTROL. ADMINISTER 10 MINUTES BEFORE FOOD DIRECTED. REFRIGERATE UN-OPENED PENS. DISCARD CARTRIDGE 28 DAYS AFTER OPENING. PLUS CORRECTION FOR BLOOD SUGAR CONTROL. ADMINISTER 10 MINUTES BEFORE FOOD DIRECTED. REFRIGERATE UN-OPENED PENS. DISCARD CARTRIDGE 28 DAYS AFTER OPENING. PLUS CORRECTION 30 Nov 16, 2020 [id number] Nov 16 CRYSTALUSAELEUTERIO QUIGLEY [facility] [place] INSULIN,ASPART,HUMAN 100U/ML,NOVOLOG,FLEXPEN,3ML Discontinue d INJECT 15 UNITS SUBCUTANEOUSLY EVERY MORNING BEFORE MEAL AND INJECT 15 UNITS WITH LUNCH AND INJECT 15 UNITS WITH SUPPER AND INJECT 20 UNITS WITH SNACK FOR BLOOD SUGAR CONTROL. ADMINISTER 10 MINUTES BEFORE FOOD DIRECTED. REFRIGERATE UN-OPENED PENS. DISCARD CARTRIDGE 28 DAYS AFTER OPENING. Dec 22, 2019 [id number] Oct 12, 2019 YARABAYLOR [facility] [place] INSULIN,GLARGINE,HUMAN 100 UNIT/ML INJ,SOLOSTAR,3ML Active INJECT 50 UNITS SUBCUTANEOUSLY EVERY MORNING FOR BLOOD SUGAR CONTROL. ADMINISTER AT SAME TIME EACH DAY DIRECTED. DISCARD ANY OPEN CARTRIDGE AFTER 28 DAYS. Sep 23, 2020 [id number] Jan 28, 2020 ELEUTERIO LIVINGSTON [facility] [place] [facility] INSULIN,GLARGINE,HUMAN 100 UNIT/ML INJ,SOLOSTAR,3ML Disconti nued INJECT 45 UNITS SUBCUTANEOUSLY EVERY MORNING FOR BLOOD SUGAR CONTROL. ADMINISTER AT SAME TIME EACH DAY DIRECTED. DISCARD ANY OPEN CARTRIDGE AFTER 28 DAYS. Oct 23, 2019 [id number] Aug 30, 2019 [facility]ANN[facility]YL[facility] [place] [facility] LACTOBACILLUS ACIDOPHILUS TAB,CHEWABLE Non-VA CHEW ONE TABLET BY MOUTH ONCE A DAY Non-VA Documented by: MEGAN HAWK nted at: [facility] [place] [facility] LANCET,SOFTCLIX Active USE LANCET 5 TIME S A DAY FOR TESTING BLOOD GLUCOSE DIRECTED 500 Dec 28, 2020 [id number] March 19, 2020 ELEUTERIO LIVINGSTON [facility] [place] LANCET,SOFTCLIX Discontinued USE LANCET 5 TIME S A DAY FOR TESTING BLOOD GLUCOSE DIRECTED 500 Jan 11, 2020 [id number] Sep 29, 2019 ELEUTERIO PATEL Laron [facility] [place] MAGNESIUM OXIDE 400MG TAB Non-VA TAKE ONE TABLET BY MOUTH ONCE A DAY Non-VA Documented by: MEGAN HAWK nted at: [facility] [place] [facility] METOPROLOL SUCCINATE 200MG TAB,SA TAKE O NE-HALF TABLET BY MOUTH EVERY EVENING FOR HEART/BLOOD PRESSURE. SWALLOW WHOLE, DO NOT CRUSH OR CHEW (TABLETS MAY BE CUT IN HALF). 45 March 18, 2020 [id number] Dec 28, 2019 STANISLAV HAMMER [facility] NEEDLE 22G 1.5IN USE NEEDLE FOR EVERY MONTH 1 Nov 12, 2019 [id number] Feb 07, 2019 ADELAIDA CLIFFORD [facility] [place] NEEDLE,PEN 31G,5MM Discontinued USE NEEDLE SUBCUTANE OUSLY 5 TIMES A DAY - THIS IS A SINGLE USE NEEDLE AND SHOULD BE DISCARDED AFTER USE 500 Dec 21, 2019 [id number] Sep 28, 2019 YAYAELEUTERIO QUIGLEY [facility] [place] [facility] POTASSIUM CHLORIDE 10MEQ TAB,SA Active TAKE TWO TABLETS BY MOUTH TWO TIMES A DAY FOR POTASSIUM SUPPLEMENTATIONTAKE WITH FOOD 360 Dec 12, 2020 [id number] Mar 02, 2020 YANELY QUINTERO [facility] POTASSIUM CHLORIDE 10MEQ TAB,SA Discontinued TAKE ONE TABLET BY MOUTH THREE TIMES A DAY WITH MEALS FOR POTASSIUM SUPPLEMENTATIONTAKE WITH FOOD 180 March 16, 2020 [id number] Nov 29, 2019 LYNDABRYCEELEUTERIO QUIGLEY [facility] [place] POTASSIUM CHLORIDE 10MEQ TAB,SA Discontinued TAKE ONE TABLET BY MOUTH THREE TIMES A DAY WITH MEALS FOR POTASSIUM SUPPLEMENTATIONTAKE WITH FOOD 180 May 26, 2019 [id number] Jan 24, 2019 YANELY QUINTERO [facility] [place] SYRINGE 2.5-3ML/NDL 25G 1IN Active USE 1 SYRINGE EVERY MONTH 3 Feb 21, 2021 [id number] March 20, 2020 [facility] SYRINGE 2.5-3ML/NDL 25G 1IN Discontinued USE 1 SYRINGE EVERY Thu 3 March 18, 2020 [id number] Dec 21, 2019 [facility] TESTOSTERONE CYPIONATE 200MG/ML INJ,1ML (IN OIL) Active INJECT 200 MG (1 ML) INTRAMUSCULARLY EVERY MONTH FOR HORMONE REPLACEMENT 1 May 18, 2020 [id number] April 06, 2020 ADELAIDA CLIFFORD [facility] [place] TESTOSTERONE CYPIONATE 200MG/ML INJ,1ML (IN OIL) Discontinue d INJECT 200 MG (1 ML) INTRAMUSCULARLY EVERY MONTH FOR HORMONE REPLACEMENT March 25, 2020 [id number] Oct 25, 2019 ADELAIDA CLIFFORD [facility] A DIV TESTOSTERONE CYPIONATE 200MG/ML INJ,1ML (IN OIL) Discontinue d INJECT 200 MG (1 ML) INTRAMUSCULARLY EVERY MONTH FOR HORMONE REPLACEMENT Nov 06, 2019 [id number] Sep 25, 2019 [facility]IDA [facility] TESTOSTERONE CYPIONATE 200MG/ML INJ,1ML (IN OIL) Discontinue d INJECT 200 MG (1 ML) INTRAMUSCULARLY EVERY MONTH FOR HORMONE REPLACEMENT 1 May 14, 2019 [id number] Apr 10, 2019 ADELAIDA CLIFFORD [facility] A DIV TRAMADOL HCL 50MG TAB Active TAKE 1 TO 2 TABLET S BY MOUTH EVERY 6 HOURS NEEDED FOR PAIN 180 Jul 21, 2020 [id number] March 30, 2020 [facility] TRAMADOL HCL 50MG TAB Discontinued TAKE 1 TO 2 TABLET S BY MOUTH EVERY 6 HOURS NEEDED FOR PAIN 180 Jun 06, 2020 [id number] Jan 11, 2020 [facility] TRAMADOL HCL 50MG TAB Discontinued TAKE 1 TO 2 TABLET S BY MOUTH EVERY 6 HOURS NEEDED FOR PAIN 180 Jun 06, 2020 [id number] Dec 06, 2019 [facility] TRAMADOL HCL 50MG TAB Discontinued TAKE 1 TO 2 TABLET S BY MOUTH EVERY 6 HOURS NEEDED FOR PAIN 180 Dec 14, 2019 [id number] Nov 15, 2019 [facility] [place] TRAMADOL HCL 50MG TAB Discontinued TAKE 1 TO 2 TABLET S BY MOUTH EVERY 6 HOURS NEEDED FOR PAIN 180 Jul 06, 2019 [id number] May 26, 2019 GROVENELLA MORELOS [facility] [place] TRIAMCINOLONE ACETONIDE 0.5% CREAM,TOP Active A PPLY SPARINGLY TO AFFECTED AREA ONCE A DAY NEEDED FOR RASH 45 Jul 15, 2020 [id number] April 01 0 REYESTHOM [facility] [place] TRIAMCINOLONE ACETONIDE 0.5% CREAM,TOP Discontinued A PPLY SPARINGLY TO AFFECTED AREA ONCE A DAY NEEDED FOR RASH 45 Oct 12, 2019 [id number] Jul REYESTHOM [facility] [place] Problems (Conditions): All historical and current Section Date Range: From patient's date of to the date document was create d. This section includes a list of Problems (Conditions) know n to MS for the patient. It includes both active and inacti ve problems (conditions). The data comes from all MS treatment facilities. Problem Status Problem Code Date of Onset Date of Resolution Comm ent(s) Provider Source Basal cell carcinoma of scalp Active [id number] THOM CHAMBERS [facility] [place] Chronic back pain Active [id number] TERRIE CHAMBERS [facility] [place] Chronic kidney disease stage 3 Active [id number] THOM CHAMBERS [facility] [place] [facility] Constipation Active 98988556 THOM CHAMBERS [facility] [place] Diabetes mellitus Active 26500081 THOM CHAMBERS [facility] [place] [facility] Diabetic neuropathy Active [id number] Neha CHAMBERS [facility] [place] [facility] Essential hypertension Active 97894089 THOM CHAMBERS [facility] [place] [facility] Hyperlipidemia Active 99100838 THOM CHAMBERS [facility] [place] Hypogonadism Active 24531746 THOM CHAMBERS [facility] [place] Sleep apnea Active 21924143 THOM CHAMBERS [facility] [place] Radiology Reports: +/- 30 days of the encounter No Data Provided for This Section Pathology Reports: +/- 30 days of the encounter No Data Provided for This Section Encounter Notes: All associated encounter notes This section contains the clinical notes associated to the Encounter. Date/Time Encounter Note(s) Provider Source March 20, 2020 07:35 AM PRIMARY CARE NURSE PRACTITIO GLORIA NOTE: LOCAL TITLE: EK-NURSE PRACTITIONER PC STANDARD TITLE: PRIMARY CARE NURSE PRACTITIONER NOTE DATE OF NOTE: MARCH 20, 2020@07:35 ENTRY DATE: MARCH 20, 2020@07:35:05 AUTHOR: THOM CHAMBERS COSIGNER: URGENCY: STATUS: COMPLETED Reason for visit: annual appt per phone per COVID19. No lab results per COVId CC: Scheduled for echo and stress test tomorrow HPI: Followup chronic medical conditions. Scheduled for echo and stress test tomorrow, directed by Dr Xiao. Was consulted by Dr Yung, due to findings of PVD. Vet has had ultrasound studies of lower legs. Needs new consult for Podiatry, diabetic shoes. Needs new Renal consult Needs new Ophth consult Home BP average 120s-130s/70-80s. Refilled meds as needed. Vet to contact Dr Grove's office to have renewal RX faxed to [facility]. Next appt w/ [facility] PCP Dr Grove is 04/20/20. Other providers: [place] PCP in [place] "quarterly", [place]. 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 Denies orthopnea, + sleep apnea, unable to tolerate CPAP, had surgery 1996. Occ sinus, allergy headaches. Occ GERD, TUMS prn, improved since wt loss after surgery. Denies dysphagia, hemorrhoids, change in bowel habits, improved IBS and less trouble w/ constipation in cycles. Nocturia: "several times, that's my fault, I drink most of my fluids in the evenings." Occ mild edema, hands and feet/ankles. Skin problems: hx skin cancers, surgery x 4. Psoriasis on scalp, applies triamcinolone cream prn. Joint pain: feet and upper back, unable to take NSAIDs due to CKD. Mood: "I have some new problems with the circulation in my legs." PSH: 1980 deviated septum 1981 bilateral sinus windows 09/05/1997 uvual partial plasty (sleep a pnea), Shiela Win 2009 and 2010, left shoulder rotator cuf f x 3 (Abbie Ventura and Kristi, [place]) 04/29/16, last right knee cartilage, x 3, Mel Ventura, [place] 01/02/11 umbilical hernia repair with mes h, Dr Doe 08/20/17, 12/25/2015, 11/22/2013 BCC remov al top of scalp 08/27/12 EGD, Dr Doe fatty tumor removal from back right foot great toe joint replacement, Dr Yung left foot neuroma removal, Dr Yung 12/09/2013 CTS right 04/05/2015 left cataract removal, Willie 03/06/2013 right cataract removal, Santos cancino 05/17/2015 right, 12/04/2015 left Fasanella servat procedure eyes, Lantry 12/21/2007 bilat upper lid blepharoplasty , Lantry 04/17/2011 bilat Lasik 02/18/16 gastric sleeve, Dr Yarbrough at [facility] in [place] 09/03/2016 laminectomy, lumbar stenosis L4-S1, Dontae in [place] 11/13/[address] [facility], no po lyps, + divert 02/12/17 anterior cervical discectomy & fu eliazar C5-C6, cervical stenosis, Dontae February 2019 Moh's scalp BCC spring 2018 SLT w/ Dr Tapia for glaucoma Tobacco: denies, quit smoking 1994 11 PPD ETOH: 12 pack beer/year Activity: lives at [employer], fishing, home and yard maintenance Exercise: walks daily Diet: diabetic diet Monitor: gluc 3-4x/day, BP Tattoos: 1 Piercings: none Hx IVDU: denies Blood transfusions: none Eye exam: 2018 Colorectal screening: colonoscopy 11/13/16, no polyps, + diverticular disease Pneumovax: 11/17/19 PCV13: 08/25/19 Tdap: 10/23/17 Shingrix: 10/20/19, 01/12/20 Social: , lives with . 1 child, 4 steps. : [employer], 63-, [employer] duty, [employer] Family Hx: Father: age 50s, CHF ?, not much history/contact. Mother: age 80, DM. 2 Brothers, 1 living: HTN, PVD/carotid stenosis. 1 : age 50s, CHF. 1 Sister, living, borderline diabetes. Medications: Active Outpatient Medications (including Supplies): Outpatient Medications Status 1) ACCU-CHEK ROSINA 1-2 CONTROL SOLN 1 DROP ACTIVE DIRECTED TO CALIBRATE BLOOD GLUCOSE MONITOR. DISCARD BOTTLE 90 DAYS AFTER OPENING. 2) ACCU-CHEK ROSINA PLUS(GLUCOSE) TEST STRIP USE 1 STRIP ACTIVE FOR TESTING FOUR TIMES A DAY 3) ALCOHOL PREP PAD USE 1 PAD ON SKIN FOUR TIMES A DAY ACTIVE 4) ALLOPURINOL 100MG TAB TAKE ONE TABL ET BY MOUTH ONCE A ACTIVE DAY FOR GOUT. TAKE WITH PLENTY OF WATER 5) ALOGLIPTIN 12.5MG TAB TAKE ONE TABL ET BY MOUTH ONCE A ACTIVE DAY FOR DIABETES 6) AMLODIPINE BESYLATE 10MG TAB TAKE O NE TABLET BY MOUTH ACTIVE EVERY MORNING FOR HEART/BLOOD PRESSURE 7) ATORVASTATIN CALCIUM 20MG TAB TAKE ONE TABLET BY ACTIVE MOUTH ONCE A DAY FOR CHOLESTEROL. REPORT ANY UNEXPLAINED MUSCLE PAIN OR WEAKNESS TO YOUR DOCTOR. 8) CHLORTHALIDONE 25MG TAB TAKE ONE TA BLET BY MOUTH ONCE ACTIVE A DAY 9) CYANOCOBALAMIN 1000MCG/ML INJ INJEC T 1000 MCG (1 ML) ACTIVE INTRAMUSCULARLY EVERY MONTH FOR B12 SUPPLEMENTATION. 10) GABAPENTIN 100MG CAP TAKE ONE CAPSU LE BY MOUTH EVERY ACTIVE MORNING AND TAKE ONE CAPSULE AT NOON AND TAKE TWO CAPSULES AT BEDTIME 11) INSULIN,ASPART 100UN/ML CHANTELLE FLEXPE N 3ML INJECT 20 HOLD UNITS SUBCUTANEOUSLY BEFORE BREAKFAST AND INJECT 20 UNITS BEFORE LUNCH AND INJECT 26 UNITS BEFORE SUPPER AND INJECT 24 UNITS SNACK FOR BLOOD SUGAR CONTROL. ADMINISTER 10 MINUTES BEFORE FOOD DIRECTED. REFRIGERATE UN-OPENED PENS. DISCARD CARTRIDGE 28 DAYS AFTER OPENING. PLUS CORRECTION 12) INSULIN,GLARGINE 100 UNT/ML 3ML YESENIA OSTAR INJECT 50 ACTIVE UNITS SUBCUTANEOUSLY EVERY MORNING FOR BLOOD SUGAR CONTROL. ADMINISTER AT SAME TIME EACH DAY DIRECTED. DISCARD ANY OPEN CARTRIDGE AFTER 28 DAYS. 13) LANCET,SOFTCLIX USE LANCET 5 CANDY ES A DAY FOR ACTIVE TESTING BLOOD GLUCOSE DIRECTED 14) NEEDLE,PEN 31G,5MM USE NEEDLE SUBCU TANEOUSLY 5 TIMES ACTIVE A DAY - THIS IS A SINGLE USE NEEDLE AND SHOULD BE DISCARDED AFTER USE 15) POTASSIUM CHLORIDE 10MEQ SA TAB ANTONIETTA E TWO TABLETS BY ACTIVE MOUTH TWO TIMES A DAY FOR POTASSIUM SUPPLEMENTATIONTAKE WITH FOOD 16) SYRINGE 3ML/NDL 25G 1IN USE 1 SYRIN GE EVERY MONTH ACTIVE 17) TESTOSTERONE CYP 200MG/ML 1ML IN OIL INJECT 200 MG ACTIVE (1 ML) INTRAMUSCULARLY EVERY MONTH FOR HORMONE REPLACEMENT 18) TRAMADOL HCL 50MG TAB TAKE 1 TO 2 T ABLETS BY MOUTH ACTIVE (S) EVERY 6 HOURS NEEDED FOR PAIN 19) TRIAMCINOLONE 0.5% CR APPLY SPARING LY TO AFFECTED ACTIVE AREA ONCE A DAY NEEDED FOR RASH Non-VA Medications Status 1) Non-VA ASPIRIN 81MG CHEW TAB 81MG M OUTH ONCE A DAY ACTIVE 2) Non-VA CHOLECALCIF 25MCG (D3-1,000U NIT) TAB 1000UNIT ACTIVE MOUTH EVERY OTHER DAY 3) Non-VA DOCUSATE NA 100MG CAP 200MG MOUTH ONCE A DAY ACTIVE 4) Non-VA FISH OIL 1000MG (500MG DHA/E PA) CAP 1000MG ACTIVE MOUTH ONCE A DAY 5) Non-VA LACTOBACILLUS ACIDOPHILUS CH EW TAB 1 TABLET ACTIVE MOUTH ONCE A DAY 6) Non-VA MAGNESIUM OXIDE 400MG TAB 40 0MG MOUTH ONCE A ACTIVE DAY 25 Total Medications Compared newly ordered medications and medication changes to active medications and non-VA medications, and then reviewed medications with patient and/or caregiver. All discrepancies noted and reconciled. Patients, or caregivers, was provided with reconciled medications list and advised to provide to all non VA providers. Potential adverse reactions of new medications were discussed with the patient. Allergies: METFORMIN, LISINOPRIL PE: Vital signs: Labs: no results per COVID Reminders: Tobacco Use Screening: The patient is a former tobacco user. The patient quit fifteen or more years ago. P:Outpt Medication Reconciliation: MEDICATION RECONCILIATION I have [...] patient and/or caregiver. Patient verbalizes understanding: yes. P:Test Results Notification: Not Applicable P:DM Elevated HBA1C: Referred to Diabetic Clinic for monitoring and adjustment of medications. P:IHD/IVD/DM Lipid Profile: Ordered Lipid Profile. Assessment/Plan: 1. Type II Diabetes: Home glucose checks . PACT Pharm managing, next appt 03/28/20. Aspart 20 units w/ meals and sn acks. Lantus 50 units/hs. Alogliptin 12.5mg/day. 2. essential HTN: continue amlodipine 10 mg/am, chlorthalidone 25mg/am, Toprol xl 100mg/pm, ASA 81mg/day. Home BP monitor. 3. mixed hyperlipidemia: continue atorva statin 20mg/day, fish oil daily 4. hypogonadism: Urology follows, next a ppt 11/21/20. Monthly testosterone IM 5. IBS/constipation: probiotic daily, do cusate 100mg 2 tabs daily 6. GERD: TUMS prn 7. BCC scalp: February 2019 Mohs scalp. 8. obstructive sleep apnea: unable to to lerate cpap, surgical procedure in 1996 9. diabetic neuropathy: diabetic shoes, follows w/ Dr Yung [facility] Personal Banking Representative. 10. CKD stage 3: follows with Dr Victor Manuel hernandez. 11. hx obesity: gastric sleeve 02/18/16, cont monthly B12 inj 12. DDD lumbar spine: states unable to t rosemarie nsaid due to hx CKD. Currently taking tramadol 50mg 1-2 tabs QID, thru [facility] PCP. Continue daily walking. Multiple surgeries per hx, see above list. is involved in treatment decisions, options are discussed. Medications are reviewed, along with pros and cons and alternatives. Questions are encouraged and answered. Instructed to seek emergency medical care if necessary at nearest local facility, or call 911. pc 30 minutes Orders: 1. 12 month non-fasting lab and appt to follow at [facility]: lipid, cmp, hga1c, cbc, tsh, psa, UA, microalbumin /noa/ [facility]OM INGRAM Signed: 03/20/2020 09:04 Receipt Acknowledged By: * AWAITING SIGNATURE * KILLIAN DAVID 03/20/2020 09:15 /noa/ REMY RODRIGUEZ medical economics consultant [facility]
--- OUTSIDE RECORDS SUMMARY | 2020-04-18 09:36 | XMS REPORT | Encounter Summary ---
[facility] Address [address] [place] [id number] Phone Unavailable Care Team Providers Care Sleeping Car Service Attendant Name Role Phone REYES THOM PCP Unavailable [...] to Policy [place] [facility] ([facility]) MEDICARE ADVANTAGE MCR ([facility]) Nov 09, 2017 [id number] [phone] SIMI COVARRUBIAS PATIENT [facility] RE[facility] ([facility]) MEDICARE ADVANTAGE MCR ([facility]) Nov 09, 2017 [id number] [phone] SIMI COVARRUBIAS PATIENT AETNA MCR ([facility]) MEDICARE ADVANTAGE MCR ([facility]) Nov 09, [id number] SIMI COVARRUBIAS PATIENT Selected Encounter This section includes the information on record at [place] for the Encounter. Date/Time Encounter Type Encounter Description Reason Provider Source Feb 29, 2020 02:30 PM Outpatient Encounter TELEPHONE PRIMARY CAR E ICD-10-CM E11.9 Type 2 diabetes mellitus without complications with Provider Comments: Diabetes mellitus (SCT [id number]) LYNDATRELEUTERIO ROJAS [facility] IHE Encounter Template Text not used by [facility] Assessments - Encounter Diagnoses This section includes the primary and secondary diag noses documented for the Encounter. Date/Time Primary/Secondary Diagnosis Diagnosis Name Provider Source Feb 29, 2020 02:30 PM PRIMARY Type 2 diabetes mellitus w ithout complications BALTRUSAITIS,ELEUTERIO L [facility] Plan of Treatment: Future Appointments (+ 6 months) and Future Tests (+/- 45 day s) The Plan of Treatment section includes future care activities for the patient fr om all [place] treatment facilities. This section includes future appointments and fu ture orders which are active, pending or scheduled. Future Appointments This section includes appointments that were scheduled t o occur 6 months from the date of the Encounter, up to a maximum of 20 appointme nts. The data comes from all [place] treatment [facility]. Appointment Date/Time Appointment Type Appointment Facili ty Name March 20, 2020 08:00 AM AMBULATORY - MEDICINE [facility] March 28, 2020 11:30 AM AMBULATORY - NONE [facility] Apr 19, 2020 11:00 AM AMBULATORY - NONE [facility] Apr 26, 2020 10:45 AM AMBULATORY - NONE [facility], [facility] 15 Active, Pending, [...] the Encounter. The data comes from all [facility]. Test Date/Time Test Type Test Details Facility Name March 20, 2020 12:00 AM Laboratory - Chemistry Order LIPID PROFILE(HDL,TRIG,CHOL,LDL) GREEN TOP TUBE PLASMA SP ONCE [facility] March 20, 2020 08:53 AM Consult Order LE-PODIATRY CONSUL TS OUTPT-[id number] Cons Aerobics Instructor's Choice [facility] March 20, 2020 08:53 AM Consult Order COMMUNITY CARE-EK EYE OPHTHALMOLOGY-[id number] Cons Aerobics Instructor's [facility] March 20, 2020 08:53 AM Consult Order TO-RENAL OUTPT-[id number] [id number] [facility] Aerobics Instructor's [facility] April 05, 2020 12:00 AM Laboratory - Chemistry Order LIPID PROFILE(HDL,TRIG,CHOL,LDL) GREEN TOP TUBE PLASMA SP ONCE [facility] April 05, 2020 12:00 AM Laboratory - Chemistry Order HEMOGLOBI N A1C LAVENDER TOP BLOOD SP [facility] April 05, 2020 12:00 AM Laboratory - Chemistry Order COMPREHEN SIVE METABOLIC PANEL GREEN TOP TUBE PLASMA SP ONCE [facility] April 05, 2020 12:00 AM Laboratory - Chemistry Order CBC & DIF F 5 ML LAVENDER TOP BLOOD SP ONCE [facility] April 05, 2020 12:00 AM Laboratory - Chemistry Order TSH SST GEL S LIMA SP ONCE [facility] April 05, 2020 12:00 AM Laboratory - Chemistry Order PROSTATIC SPECIFIC ANTIGEN(TOTAL) SST GEL SERUM SP [facility] April 05, 2020 12:00 AM Laboratory - Chemistry Order URINALYSI S URIN,RAND URINE SP [facility] April 05, 2020 12:00 AM Laboratory - Chemistry Order MICROALBU MIN (CO,EK) URIN,RAND URINE SP [facility] Surgical Procedures: All associated to the [...] the patient. The data comes from a [facility] treatment facilities. It does not list Allergies/ADRs that were removed or entered in error. Some allergies/ADRs may be reported in t he Immunization section. Allergen Event Date Event Type Reaction(s) Severity Source LISINOPRIL Dec 01, 2017 Propensity to adverse reactions to drug (disorder) Renal impairment [facility], [facility] 15 METFORMIN Dec 01, 2017 Propensity to adverse reactions to drug (disorder) [facility] Medications: VA dispensed (-15 months) and Non-VA Documented (Obtained Outside A) Section Date Range: 1) prescriptions processed by a VA pharmacy in the last 15 m [facility], and 2) all medications recorded in the [place] medical record as "non-VA medic ations". Pharmacy terms refer to [place] pharmacy's work on prescriptions. VA patient s are advised to take their medications as instructed by their health care team. The data comes from all [place] treatment facilities. Glossary of Pharmacy Terms:Active = A prescription that can be filled at the local [place] pharmacy.Active: On Hold = An active prescription that will not be filled until pharmacy resolves the issue.Active: Susp = An active prescription that is not scheduled to be filled yet.Clinic Order = A medication received during a visit to a [place] clinic or emergency department (currently not available).Discontinued [...] may be a prescription from either the [place] or other providers that was filled outside the [place]. Or, it may be an over the [...] TIMES A DAY 400 Sep 12, 2020 [id number] Feb 29, 2020 YARAELEUTERIO Laron [facility] ACCU-CHEK ROSINA PLUS (GLUCOSE) TEST STRIP Discontinued USE 1 STRIP FOR TESTING FOUR TIMES A DAY 400 Sep 15, 2019 [id number] Jun 13, 2019 BALTRUSAIT ISELEUTERIO [facility] ALCOHOL PREP PAD Discontinued USE 1 PAD ON SKIN FOUR TIMES A DAY 40 0 Apr 25, 2020 [id number] Nov 29, 2019 BALTRELEUTERIO ROJAS [facility] ALCOHOL PREP PAD Discontinued USE 1 PAD ON SKIN FOUR TIMES A DAY 40 0 Sep 15, 2019 [id number] Apr 18, 2019 ELEUTERIO LIVINGSTON [facility] ALLOPURINOL 100MG TAB Active TAKE ONE TABLET BY MOUTH ONCE A DAY FOR GOUT. TAKE WITH PLENTY OF WATER 90 Sep 23, 2020 [id number] Mar 05, 2020 SILVINA CHAMBERS [facility] [place] [facility] ALLOPURINOL 100MG TAB Discontinued TAKE ONE TABLET BY MOUTH ONCE A DAY FOR GOUT. TAKE WITH PLENTY OF WATER 90 Dec 30, 2019 [id number] Sep 17, 2019 TERRIE SHARPEA [facility] ALOGLIPTIN 12.5MG TAB Active TAKE ONE TABLET BY MOUTH O NCE A DAY FOR DIABETES 90 Sep 12, 2020 [id number] Mar 04, 2020 BALTRUSAITIS,ELEUTERIO Larry [facility] [place] [facility] ALOGLIPTIN 12.5MG TAB Discontinued TAKE ONE TABLET BY MOUTH ONCE A DAY FOR DIABETES 90 Dec 22, 2019 [id number] Jun 18, 2019 BALTRUSAITIS,ELEUTERIO Larry [facility] AMLODIPINE BESYLATE 10MG TAB Discontinued TAKE ONE TA BLET BY MOUTH EVERY MORNING FOR HEART/BLOOD PRESSURE 90 Jun 10, 2019 [id number] Feb 25, 2019 JAQUELIN MONIKA Laron [facility] AMLODIPINE BESYLATE 10MG TAB TAKE ONE TA BLET BY MOUTH EVERY MORNING FOR HEART/BLOOD PRESSURE 90 Apr 12, 2020 [id number] Feb 10, 2020 SILVINA CHAMBERS [facility] ASPIRIN 81MG TAB,CHEWABLE Non-VA CHEW ONE TABLET BY MOUTH ONCE A DAY Non-VA Documented by: MEGAN HAWK nted at: [facility] ATORVASTATIN CA 20MG TAB Active TAKE ONE TABLET BY MOUTH ONCE A DAY FOR CHOLESTEROL. REPORT ANY UNEXPLAINED MUSCLE PAIN OR WEAKNESS TO YOUR DOCTOR. 90 Jan 02, 2021 [id number] March 24, 2020 [facility], [place] 15 ATORVASTATIN CA 40MG TAB Discontinued TAKE ONE-HALF T ABLET BY MOUTH AT BEDTIME FOR CHOLESTEROL. REPORT ANY UNEXPLAINED MUSCLE PAIN OR WEAKNESS TO YOUR DOCTOR. 45 Jul 15, 2020 [id number] Oct 14, 2019 REYESTHOM [facility] ATORVASTATIN CA 40MG TAB Discontinued TAKE ONE-HALF T ABLET BY MOUTH AT BEDTIME FOR CHOLESTEROL. REPORT ANY UNEXPLAINED MUSCLE PAIN OR WEAKNESS TO YOUR DOCTOR. 45 Oct 12, 2019 [id number] Jul 16, 2019 [facility] [place] [facility] CALCIUM CARBONATE 500MG TAB,CHEWABLE Non-VA CHEW ONE TABLET BY MOUTH PRN Non-VA Documented by: THOM CHAMBERS nted at: [facility] CHLORTHALIDONE 25MG TAB Active TAKE ONE TABLET BY MOUTH ONCE A DAY 90 Jul 01, 2020 [id number] March 19, 2020 MONIKA HAMMER [facility] CHLORTHALIDONE 25MG TAB Discontinued TAKE ONE TABLET BY MOUTH ONCE A DAY 90 Jun 16, 2019 [id number] Apr 12, 2019 MELODY HAMMERBY Laron [facility] CHOLECALCIFEROL 1000UNT TAB Non-VA TAKE ONE TABLET BY MOUTH EVERY OTHER DAY Non-VA Docume nted by: MEGAN HAWK Docume nted at: [facility] CYANOCOBALAMIN 1000MCG/ML INJ Active INJECT 100 0 MCG (1 ML) INTRAMUSCULARLY EVERY MONTH FOR B12 SUPPLEMENTATION. 3 Nov 03, 2020 [id number] Apr 23, 2020 THOM CHAMBERS [facility] CYANOCOBALAMIN 1000MCG/ML INJ Discontinued INJECT 100 0 MCG (1 ML) INTRAMUSCULARLY EVERY MONTH FOR B12 SUPPLEMENTATION. 3 Nov 17 0 [id number] Aug 07, 2019 THOM CHAMBERS [facility] DIPHENHYDRAMINE HCL 25MG CAP Non-VA TAKE 1 CAPSULE BY MOUTH PRN Non-VA Documented by: THOM CHAMBERS Docume nted at: [facility] DOCUSATE NA 100MG CAP No n-VA TAKE 2 CAPSULES BY MOUTH ONCE A DAY Non-VA Documented by: THOM CHAMBERS Docume nted at: [facility] FISH OIL 1000MG (500MG DHA/EPA) CAP,ORAL Non-VA TAKE 1 CAPSULE BY MOUTH ONCE A DAY Non-VA Documented by: MEGAN HAWK Docume nted at: [facility] GABAPENTIN 100MG CAP Active TAKE 1 CAPSULE BY M OUTH EVERY MORNING AND TAKE 1 CAPSULE BY MOUTH AT NOON AND TAKE 2 CAPSULES BY MOUTH AT BEDTIME 360 Jul 06, 2020 [id number] March 31, 2020 BALTRUSAITIS,ELEUTERIO L [facility] GLUCAGON 1MG/GABRIELLA INJ,EMERGENCY KIT INJEC T 1MG SUBCUTANEOUSLY NEEDED FOR SEVERE HYPOGLYCEMIA 1 Nov 30, 2019 [id number] Nov 03, 2019 THOM CHAMBERS [facility] INSULIN,ASPART,HUMAN 100U/ML,NOVOLOG,FLEXPEN,3ML Active: On Hold INJECT 20 UNITS SUBCUTANEOUSLY BEFORE BREAKFAST AND INJECT 20 UNITS BEFORE LUNCH AND INJECT 26 UNITS BEFORE SUPPER AND INJECT 24 UNITS SNACK FOR BLOOD SUGAR CONTROL. ADMINISTER 10 MINUTES BEFORE FOOD DIRECTED. REFRIGERATE UN-OPENED PENS. DISCARD CARTRIDGE 28 DAYS AFTER OPENING. PLUS CORRECTION Mar 01, 2021 [id number] [facility] INSULIN,ASPART,HUMAN 100U/ML,NOVOLOG,FLEXPEN,3ML Discontinue d INJECT 20 UNITS SUBCUTANEOUSLY BEFORE BREAKFAST AND INJECT 20 UNITS BEFORE LUNCH AND INJECT 24 UNITS BEFORE SUPPER AND INJECT 24 UNITS SNACK FOR BLOOD SUGAR CONTROL. ADMINISTER 10 MINUTES BEFORE FOOD DIRECTED. REFRIGERATE UN-OPENED PENS. DISCARD CARTRIDGE 28 DAYS AFTER OPENING. PLUS CORRECTION 30 Jan 26, 2021 [id number] Jan 28, 2020 [facility] INSULIN,ASPART,HUMAN 100U/ML,NOVOLOG,FLEXPEN,3ML Discontinue d INJECT 20 UNITS SUBCUTANEOUSLY BEFORE MEALS FOR BLOOD SUGAR CONTROL. ADMINISTER 10 MINUTES BEFORE FOOD DIRECTED. REFRIGERATE UN-OPENED PENS. DISCARD CARTRIDGE 28 DAYS AFTER OPENING. PLUS CORRECTION FOR BLOOD SUGAR CONTROL. ADMINISTER 10 MINUTES BEFORE FOOD DIRECTED. REFRIGERATE UN-OPENED PENS. DISCARD CARTRIDGE 28 DAYS AFTER OPENING. PLUS CORRECTION 30 Nov 16, 2020 [id number] Nov 16 [facility] [place] [facility] INSULIN,ASPART,HUMAN 100U/ML,NOVOLOG,FLEXPEN,3ML Discontinue d INJECT 15 UNITS SUBCUTANEOUSLY EVERY MORNING BEFORE MEAL AND INJECT 15 UNITS WITH LUNCH AND INJECT 15 UNITS WITH SUPPER AND INJECT 20 UNITS WITH SNACK FOR BLOOD SUGAR CONTROL. ADMINISTER 10 MINUTES BEFORE FOOD DIRECTED. REFRIGERATE UN-OPENED PENS. DISCARD CARTRIDGE 28 DAYS AFTER OPENING. Dec 22, 2019 [id number] Oct 12, 2019 [facility] [place] [facility] INSULIN,GLARGINE,HUMAN 100 UNIT/ML INJ,SOLOSTAR,3ML Active INJECT 50 UNITS SUBCUTANEOUSLY EVERY MORNING FOR BLOOD SUGAR CONTROL. ADMINISTER AT SAME TIME EACH DAY DIRECTED. DISCARD ANY OPEN CARTRIDGE AFTER 28 DAYS. Sep 23, 2020 [id number] Jan 28, 2020 [facility] INSULIN,GLARGINE,HUMAN 100 UNIT/ML INJ,SOLOSTAR,3ML Disconti nued INJECT 45 UNITS SUBCUTANEOUSLY EVERY MORNING FOR BLOOD SUGAR CONTROL. ADMINISTER AT SAME TIME EACH DAY DIRECTED. DISCARD ANY OPEN CARTRIDGE AFTER 28 DAYS. 15 Oct 23, 2019 [id number] Aug 30, 2019 CRYSTALCRYSTALELEUTERIO Larry [facility] LACTOBACILLUS ACIDOPHILUS TAB,CHEWABLE Non-VA CHEW ONE TABLET BY MOUTH ONCE A DAY Non-VA Documented by: MEGAN HAWK nted at: [facility] LANCET,SOFTCLIX Active USE LANCET 5 TIME S A DAY FOR TESTING BLOOD GLUCOSE DIRECTED 500 Dec 28, 2020 [id number] March 19, 2020 YAYADANNELEUTERIO Laron [facility] LANCET,SOFTCLIX Discontinued USE LANCET 5 TIME S A DAY FOR TESTING BLOOD GLUCOSE DIRECTED 500 Jan 11, 2020 [id number] Sep 29, 2019 LYNDABRYCE GARZAANANDELEUTERIO Larry [facility] MAGNESIUM OXIDE 400MG TAB Non-VA TAKE ONE TABLET BY MOUTH ONCE A DAY Non-VA Documented by: MEGAN HAWK nted at: [facility] METOPROLOL SUCCINATE 200MG TAB,SA TAKE O NE-HALF TABLET BY MOUTH EVERY EVENING FOR HEART/BLOOD PRESSURE. SWALLOW WHOLE, DO NOT CRUSH OR CHEW (TABLETS MAY BE CUT IN HALF). 45 March 18, 2020 [id number] Dec 28, 2019 STANISLAV HAMMER [facility] NEEDLE 22G 1.5IN USE NEEDLE FOR EVERY MONTH 1 Nov 12, 2019 [id number] Feb 07, 2019 ADELAIDA CLIFFORD [facility] NEEDLE,PEN 31G,5MM Discontinued USE NEEDLE SUBCUTANE OUSLY 5 TIMES A DAY - THIS IS A SINGLE USE NEEDLE AND SHOULD BE DISCARDED AFTER USE 500 Dec 21, 2019 [id number] Sep 28, 2019 ELEUTERIO LIVINGSTON [facility] POTASSIUM CHLORIDE 10MEQ TAB,SA Active TAKE TWO TABLETS BY MOUTH TWO TIMES A DAY FOR POTASSIUM SUPPLEMENTATIONTAKE WITH FOOD 360 Dec 12, 2020 [id number] Mar 02, 2020 YANELY QUINTERO [facility], [place] 15 POTASSIUM CHLORIDE 10MEQ TAB,SA Discontinued TAKE ONE TABLET BY MOUTH THREE TIMES A DAY WITH MEALS FOR POTASSIUM SUPPLEMENTATIONTAKE WITH FOOD 180 March 16, 2020 [id number] Nov 29, 2019 BALTRUSAITIS,ELEUTERIO L [facility] [place] [facility] POTASSIUM CHLORIDE 10MEQ TAB,SA Discontinued TAKE ONE TABLET BY MOUTH THREE TIMES A DAY WITH MEALS FOR POTASSIUM SUPPLEMENTATIONTAKE WITH FOOD 180 May 26, 2019 [id number] Jan 24, 2019 INGRID,YANELY B [facility] [place] [facility] SYRINGE 2.5-3ML/NDL 25G 1IN Active USE 1 SYRINGE EVERY MONTH 3 Feb 21, 2021 [id number] March 20, 2020 [facility] SYRINGE 2.5-3ML/NDL 25G 1IN Discontinued USE 1 SYRINGE EVERY Thu 3 March 18, 2020 [id number] Dec 21, 2019 [facility] TESTOSTERONE CYPIONATE 200MG/ML INJ,1ML (IN OIL) Active INJECT 200 MG (1 ML) INTRAMUSCULARLY EVERY MONTH FOR HORMONE REPLACEMENT 1 May 18, 2020 [id number] April 06, 2020 ADELAIDA CLIFFORD [facility] TESTOSTERONE CYPIONATE 200MG/ML INJ,1ML (IN OIL) Discontinue d INJECT 200 MG (1 ML) INTRAMUSCULARLY EVERY MONTH FOR HORMONE REPLACEMENT 1 March 25, 2020 [id number] Oct 25, 2019 ADELAIDA CLIFFORD [facility] TESTOSTERONE CYPIONATE 200MG/ML INJ,1ML (IN OIL) Discontinue d INJECT 200 MG (1 ML) INTRAMUSCULARLY EVERY MONTH FOR HORMONE REPLACEMENT 1 Nov 06, 2019 [id number] Sep 25, 2019 ADELAIDA CLIFFORD [facility] TESTOSTERONE CYPIONATE 200MG/ML INJ,1ML (IN OIL) Discontinue d INJECT 200 MG (1 ML) INTRAMUSCULARLY EVERY MONTH FOR HORMONE REPLACEMENT 1 May 14, 2019 [id number] Apr 10, 2019 ADELAIDA CLIFFORD [facility] TRAMADOL HCL 50MG TAB Active TAKE 1 TO 2 TABLET S BY MOUTH EVERY 6 HOURS NEEDED FOR PAIN 180 Jul 21, 2020 [id number] March 30, 2020 [facility] 15 TRAMADOL HCL 50MG TAB Discontinued TAKE 1 TO 2 TABLET S BY MOUTH EVERY 6 HOURS NEEDED FOR PAIN 180 Jun 06, 2020 [id number] Jan 11, 2020 [facility] TRAMADOL HCL 50MG TAB Discontinued TAKE 1 TO 2 TABLET S BY MOUTH EVERY 6 HOURS NEEDED FOR PAIN 180 Jun 06, 2020 [id number] Dec 06, 2019 NELLA GROVE [facility], [place] 15 TRAMADOL HCL 50MG TAB Discontinued TAKE 1 TO 2 TABLET S BY MOUTH EVERY 6 HOURS NEEDED FOR PAIN 180 Dec 14, 2019 [id number] Nov 15, 2019 [facility]TE VAL[facility] [place] [facility] TRAMADOL HCL 50MG TAB Discontinued TAKE 1 TO 2 TABLET S BY MOUTH EVERY 6 HOURS NEEDED FOR PAIN 180 Jul 06, 2019 [id number] May 26, 2019 NELLA GROVE [facility] [place] TRIAMCINOLONE ACETONIDE 0.5% CREAM,TOP Active A PPLY SPARINGLY TO AFFECTED AREA ONCE A DAY NEEDED FOR RASH 45 Jul 15, 2020 [id number] April 01 0 THOM CHAMBERS [facility] TRIAMCINOLONE ACETONIDE 0.5% CREAM,TOP Discontinued A PPLY SPARINGLY TO AFFECTED AREA ONCE A DAY NEEDED FOR RASH 45 Oct 12, 2019 [id number] Jul THOM CHAMBERS [facility] Problems (Conditions): All historical and current Section Date Range: From patient's date of to the date document was create d. This section includes a list of Problems (Conditions) know n to [place] for the patient. It includes both active and inacti ve problems (conditions). The data comes from all [place] treatment facilities. Problem Status Problem Code Date of Onset Date of Resolution Comm ent(s) Provider Source Basal cell carcinoma of scalp Active [id number] THOM CHAMBERS [facility] Chronic back pain Active [id number] TERRIE CHAMBERS [facility] Chronic kidney disease stage 3 Active [id number] THOM CHAMBERS [facility] Constipation Active 97579922 THOM CHAMBERS [facility] [place] [facility] Diabetes mellitus Active [id number] THOM CHAMBERS [facility] Diabetic neuropathy Active [id number] Neha CHAMBERS [facility] Essential hypertension Active [id number] [facility] [place] [facility] Hyperlipidemia Active 36998956 THOM CHAMBERS EA [facility] [place] [facility] Hypogonadism Active 23197308 THOM CHAMBERS [facility] Sleep apnea Active [id number] THOM CHAMBERS RN [facility] Radiology Reports: +/- 30 days of the encounter No Data Provided for This Section Pathology Reports: +/- 30 days of the encounter No Data Provided for This Section Encounter Notes: All associated encounter notes This section contains the clinical notes associated to the Encounter. Date/Time Encounter Note(s) Provider Source Feb 29, 2020 02:30 PM PHARMACY NOTE: LOCAL TITLE: -PHARMACY PRIMARY CARE STANDARD TITLE: PHARMACY NOTE DATE OF NOTE: FEB 29, 2020@14:30 ENTRY DATE: FEB 29, 2020@14:30:44 AUTHOR: REGGIE LIVINGSTON COSIGNER: URGENCY: STATUS: COMPLETED HALDSIMI is a 72 yo MALE contacted clinic via telephone. Team: SATURNINO WELLER 1 *WH*; PCP: THOM CHAMBERS S: reports doing well, in NAD. Correctly confirms current DM regimen. "Reports BG mostly the same but still doing a little better but its improving slowly." Reports his stress test has been r/s to March 21. HPI: At last insulin aspart w/ supper and HS snack were increased. [place] notes also being managed by Dr. Grove, non-VA provider, recently approved thru [employer]. instructed to avoid co-management, thus plans to continue DM services with this credit underwriter and other conditions will be deferred to Dr. Grove. DR. QUINTERO PHONE [phone]. Lifestyle: Physical Activity: walking/elliptica ~10-15 miles/day (2-3hrs/day) [...] + 24 units w/ ac supper + 24 Units ac snack + CF Correction factor: BG 70-99: -2 UNITS BG 100-149: NORMAL DOSE BG 151-199: +1 UNITS BG 200-249: +2 UNITS BG 250-299: +3 UNITS BG 300-349: +4 UNITS BG >350: +5 UNITS ASA: yes [place]/ARB: no (CKD) Statin: moderate intensity Previously tried meds: metformin - shading painter recommends against d/t hx of BRIGIDO with SCr 1.7 liraglutide - N/V Diabetes Complications: Retinopathy: last eye exam 05/04/19; (-) Gastropathy: denies bloating after meals, early satiety, GI complaints Nephropathy: microalbuminuria (+) 06/2019; Peripheral neuropathy: denies numbness, burning, tingling in hands/feet Foot Exam: 10/23/2017 (-)Abnormal BG Readings: Reports BG Date FBG 2hr PP AC-L 2hr PP AC-S 2hr PP HS 3AM 02/28 182 111 141 360 02/27 127 97 155 375 02/26 149 106 137 311 02/25 160 98 127 385 02/24 221 108 116 308 02/23 123 99 144 361 02/22 254 145 152 215 02/21 179 95 140 186 02/20 135 98 159 383 02/19 144 107 Average 167 106 141 320 Overall Average 181 Hypoglycemia Episodes: denies Blood pressure: 118-140's/60-70's, majority in 130's PMH: Computerized Problem List is the source for the followin. Diabetes mellitus 2. Diabetic neuropathy 3. Essential hypertension 4. Hyperlipidemia 5. Sleep apnea 6. Constipation 7. Chronic back pain 8. Hypogonadism 9. Basal cell carcinoma of scalp O: Weight: 174.9 lb [79.5 kg] (01/12/2020 09:51) BMI: 29.6 Blood pressure: 122/62 (01/12/2020 09:51) Pulse: 53 (01/12/2020 09:51) Labs: *no updated labs A/P: 1. Diabetes Goal A1c <7.5% met: No Goal FBG 90-140mg/dL met: YES Goal HS <160mg/dL met: No Statin: YES - LDL at goal <100mg/dL Metformin: NO -CKD (renal doctor will not allow despite discussion) --FBG, AC-lunch, and AC-supper have impr dana, however HS readings have continued to worsen despite higher insulin aspart doses likely d/t higher carbs w/ supper/snack and no physical activity in [facility]. Supsect daytime BG are well- controlled d/t high activity level --Again reviewed importance of lowering carbs w/ supper and stopping HS snack, refuses but is willing to try lower carb options. Based on this information will, --continue insulin glargine 50 units --continue insulin aspart 20 units + CF w/ AC BKF + AC lunch --INCREASE insulin aspart to 26 Units + CF AC supper --continue insulin aspart 24 units AC HS snack --Continue aloglipitin 12.5mg daily --reasonable to hold off on labs until COVID-19 risk is lower, currently ordered for 04/2020 --Change snack to either: (Fiber one 70cal brownie (5G carbs), cashews, V8 juice, 1/2 banana + 1 Tbsp PB) and keep log to review at f/u 2. HTN Goal <140/90 met: yes -managed by non-VA nephrology and PCP Reports BP elevated when taken w/ machine but at goal when taken manually, reports at goal at home currently 3. Refills: none 4. Return to TO-PHARM PACT 5 PHONE on or around ( March 28, 2020 ) for a total of 1 appointment(s) Prerequisites: No Labs 03/28 11:30am Learner: Patient Readiness to Learn: Accepting Barriers to Learning Noted: No Barriers Preferred Learning Style: Lecture, Printed Material Preferred language for discussing health care: Mexican Time spent with pt: 30 min PBM PharmD Pharmacotherapy Rem V11: PHARMACIST INTERVENTIONS: TYPE 1 DIABETES MELLITUS Medication Intervention(s) Adjust dose or frequency of current medication due to other reason Nonpharmacologic intervention chris /noa/ ELEUTERIO LIVINGSTON Clinical Perfumer Signed: 02/29/2020 16:33 ELEUTERIO LIVINGSTON [facility]
--- OUTSIDE RECORDS SUMMARY | 2020-04-18 09:37 | XMS REPORT | Encounter Summary ---
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 Role Phone THOM CHAMBERS PCP [...] [employer] MED REP (R) MEDICARE ADVANTAGE [facility] ([facility]) Nov 09, 2017 [id number] [phone] SIMI COVARRUBIAS PATIENT [employer] MED REP (WNR) MEDICARE [facility] (R) Nov 09, 2017 [id number] [phone] SIMI COVARRUBIAS PATIENT [employer] MCR (WNR) MEDICARE ADVANTAGE MCR (R) Nov 09, 2019 [id number] SIMI COVARRUBIAS PATIENT Selected Encounter This section includes the information on record at CT for the Encounter. Date/Time Encounter Type Encounter Description Reason Provider Source Jan 12, 2020 10:00 AM OFFICE/OUTPATIENT VISIT EST PRIMARY CARE/M EDICINE ICD-10-CM R86.1 Abn lev hormones in specimens from male genital organs with Provider Comments: Hypogonadism (SCT [id number]) THOM CHAMBERS [facility] IHE Encounter Template Text not used by CT Assessments - Encounter Diagnoses This section includes the primary and secondary diag noses documented for the Encounter. Date/Time Primary/Secondary Diagnosis Diagnosis Name Provider Source Jan 12, 2020 10:15 AM PRIMARY Abn lev hormones i n specimens from male genital organs REMY RODRIGUEZ [facility] Plan of Treatment: Future Appointments (+ 6 months) and Future Tests (+/- 45 day s) The Plan of Treatment section includes future care activities for the patient fr om all CT treatment facilities. This section includes future appointments and fu ture orders which are active, pending or scheduled. Future Appointments This section includes appointments that were scheduled t o occur 6 months from the date of the Encounter, up to a maximum of 20 appointme nts. The data comes from all CT treatment facilities. Appointment Date/Time Appointment Type Appointment Facili ty Name Jan 26, 2020 03:00 PM AMBULATORY - NONE [facility] Feb 29, 2020 02:30 PM AMBULATORY - NONE [facility] March 20, 2020 08:00 AM AMBULATORY - MEDICINE [facility] March 28, 2020 11:30 AM AMBULATORY - NONE [facility] Apr 19, 2020 11:00 AM AMBULATORY - NONE [facility] Apr 26, 2020 10:45 AM [facility] [place] [place] [place]ISN 15 Surgical Procedures: All associated to the encounter No Data Provided for This Section Lab Results: +/- 30 days of the encounter No Data Provided for This Section Vital Signs: All taken on the encounter date This section contains inpatient and outpatient Vital Signs collected on the date of the Encounter. Date/Time Temperature Pulse Blood Pressure Respiratory Rate SP02 Pa in Height Weight Body Mass Index Source Jan 12, 2020 09:51 AM 97.8 F 53 /min 122/62 mm[Hg] 20 /min 95 % 7 174.9 lb 30 [facility] Immunizations: All administered on the encounter date This section contains immunizations associated to the Encounter. Immunization Series Date Issued Reaction Comments ZOSTER RECOMBINANT 2 Jan 12, 2020 Social History: Smoking Status (Most current) and Tobacco Use (All prior to enco unter date) This section includes the most current, and the historical, smoking and tobacco- related health factors from the CT facility where the Encounter took place. Current Smoking Status This section includes the most current smoking, or tobacco -related health factor, from the CT facility where the Encounter took place. Date/Time Current Smoking Status Comment Facility Nov 03, 2018 07:59 AM VA-TOBACCO QUIT 15 YRS OR MORE [facility] Tobacco Use History This section includes a history of the smoking, or tobacco -related health factors, that were collected on or before the date of the Encoun ter. The data comes from the CT facility where the Encounter took place. Date/Time Smoking Status/Tobacco Use Comment [facility] it Nov 03, 2018 07:59 AM VA-TOBACCO QUIT 15 YRS OR MORE [facility] Oct 23, 2017 07:35 AM TOBACCO LIFETIME NON-USER [facility] Advance Directives: All historical and current No Data Provided for This Section Allergies and Adverse Reactions (ADRs): All historical and current Section Date Range: From patient's date of to the date document was create d. This section includes Allergies and Adverse Reactions (ADR s) on record with VA for the patient. The data comes from a ll CT treatment facilities. It does not list Allergies/ADRs that were removed or entered in error. Some allergies/ADRs may be reported in t he Immunization section. Allergen Event Date Event Type Reaction(s) Severity Source LISINOPRIL Dec 01, 2017 Propensity to adverse reactions to drug (disorder) Renal impairment [facility] 15 METFORMIN Dec 01, 2017 Propensity to adverse reactions to drug (disorder) Renal impairment [facility] 15 Medications: VA dispensed (-15 months) and Non-VA Documented (Obtained Outside V A) Section Date Range: 1) prescriptions processed by a CT pharmacy in the last 15 m ont, and 2) all medications recorded in the CT medical record as "non-VA medic ations". Pharmacy terms refer to CT pharmacy's work on prescriptions. VA patient s are advised to take their medications as instructed by their health care team. The data comes from all CT treatment facilities. Glossary of Pharmacy Terms:Active = A prescription that can be filled at the local [place] pharmacy.Active: On Hold = An active prescription that will not be filled until pharmacy resolves the issue.Active: Susp = An active prescription that is not scheduled to be filled yet.Clinic Order = A medication received during a visit to a CT clinic or emergency department (currently not available).Discontinued = A prescription stopped by a VA provider. It is no longer available to be filled. = A prescription which is too old to fill. This does not refer to the expiration date of the medication in the container. Non-VA = A medication that came from someplace other than a [place] pharmacy. This may be a prescription from either the CT or other providers that was filled outside the CT. Or, it may be an over the [...] TIMES A DAY 400 Sep 12, 2020 [id number] Feb 29, 2020 REGGIE LIVINGSTON [facility] ACCU-CHEK ROSINA PLUS (GLUCOSE) TEST STRIP Discontinued USE 1 STRIP FOR TESTING FOUR TIMES A DAY 400 Sep 15, 2019 [id number] Jun 13, 2019 ELEUTERIO MAURO [facility] ALCOHOL PREP PAD Discontinued USE 1 PAD ON SKIN FOUR TIMES A DAY 40 0 Apr 25, 2020 [id number] Nov 29, 2019 ELEUTERIO LIVINGSTON [facility] ALCOHOL PREP PAD Discontinued USE 1 PAD ON SKIN FOUR TIMES A DAY 40 0 Sep 15, 2019 [id number] Apr 18, 2019 ELEUTERIO LIVINGSTON [facility] ALLOPURINOL 100MG TAB Active TAKE ONE TABLET BY MOUTH ONCE A DAY FOR GOUT. TAKE WITH PLENTY OF WATER 90 Sep 23, 2020 [id number] Mar 05, 2020 SILVINA CHAMBERS [facility] ALLOPURINOL 100MG TAB Discontinued TAKE ONE TABLET BY MOUTH ONCE A DAY FOR GOUT. TAKE WITH PLENTY OF WATER 90 Dec 30, 2019 [id number] Sep 17, 2019 THOM SOLIS [facility] ALOGLIPTIN 12.5MG TAB Active TAKE ONE TABLET BY MOUTH O NCE A DAY FOR DIABETES 90 Sep 12, 2020 [id number] Mar 04, 2020 ELEUTERIO LIVINGSTON [facility] ALOGLIPTIN 12.5MG TAB Discontinued TAKE ONE TABLET BY MOUTH ONCE A DAY FOR DIABETES 90 Dec 22, 2019 [id number] Jun 18, 2019 ELEUTERIO LIVINGSTON [facility] AMLODIPINE BESYLATE 10MG TAB Discontinued TAKE ONE TA BLET BY MOUTH EVERY MORNING FOR HEART/BLOOD PRESSURE 90 Jun 10, 2019 [id number] Feb 25, 2019 MONIKA RIVERA [facility] AMLODIPINE BESYLATE 10MG TAB TAKE ONE TA BLET BY MOUTH EVERY MORNING FOR HEART/BLOOD PRESSURE 90 Apr 12, 2020 [id number] Feb 10, 2020 SILVINA CHAMBERS [facility] ASPIRIN 81MG TAB,CHEWABLE Non-VA CHEW ONE TABLET BY MOUTH ONCE A DAY Non-VA Documented by: MEGAN HAWKume nted at: [facility] ATORVASTATIN CA 20MG TAB Active TAKE ONE TABLET BY MOUTH ONCE A DAY FOR CHOLESTEROL. REPORT ANY UNEXPLAINED MUSCLE PAIN OR WEAKNESS TO YOUR DOCTOR. 90 Jan 02, 2021 [id number] March 24, 2020 NELLA GROVE [facility], [place] 15 ATORVASTATIN CA 40MG TAB Discontinued TAKE ONE-HALF T ABLET BY MOUTH AT BEDTIME FOR CHOLESTEROL. REPORT ANY UNEXPLAINED MUSCLE PAIN OR WEAKNESS TO YOUR DOCTOR. 45 Jul 15, 2020 [id number] Oct 14, 2019 THOM CHAMBERS [facility] ATORVASTATIN CA 40MG TAB Discontinued TAKE ONE-HALF T ABLET BY MOUTH AT BEDTIME FOR CHOLESTEROL. REPORT ANY UNEXPLAINED MUSCLE PAIN OR WEAKNESS TO YOUR DOCTOR. 45 Oct 12, 2019 [id number] Jul 16, 2019 THOM CHAMBERS [facility] CALCIUM CARBONATE 500MG TAB,CHEWABLE Non-VA CHEW ONE TABLET BY MOUTH PRN Non-VA Documented by: THOM CHAMBERS Docume nted at: [facility] CHLORTHALIDONE 25MG TAB Active TAKE ONE TABLET BY MOUTH ONCE A DAY 90 Jul 01, 2020 [id number] March 19, 2020 MONIKA HAMMER [facility] CHLORTHALIDONE 25MG TAB Discontinued TAKE ONE TABLET BY MOUTH ONCE A DAY 90 Jun 16, 2019 [id number] Apr 12, 2019 MONIKA HAMMER [facility] CHOLECALCIFEROL 1000UNT TAB Non-VA TAKE ONE TABLET BY MOUTH EVERY OTHER DAY Non-VA Docume nted by: MEGAN HAWK Docume nted at: [facility] CYANOCOBALAMIN 1000MCG/ML INJ Active INJECT 100 0 MCG (1 ML) INTRAMUSCULARLY EVERY MONTH FOR B12 SUPPLEMENTATION. 3 Nov 03, 2020 [id number] Apr 23, 2020 [facility] CYANOCOBALAMIN 1000MCG/ML INJ Discontinued INJECT 100 0 MCG (1 ML) INTRAMUSCULARLY EVERY MONTH FOR B12 SUPPLEMENTATION. 3 Nov 17 0 [id number] Aug 07, 2019 [facility] DIPHENHYDRAMINE HCL 25MG CAP Non-VA TAKE 1 CAPSULE BY MOUTH PRN Non-VA Documented by: THOM CHAMBERS Docume nted at: [facility] DOCUSATE NA 100MG CAP No n-VA TAKE 2 CAPSULES BY MOUTH ONCE A DAY Non-VA Documented by: THOM CHAMBERS Docume nted at: [facility] FISH OIL 1000MG (500MG DHA/EPA) CAP,ORAL Non-VA TAKE 1 CAPSULE BY MOUTH ONCE A DAY Non-VA Documented by: MEGAN HAWK Docume nted at: [facility] GABAPENTIN 100MG CAP Active TAKE 1 CAPSULE BY M OUTH EVERY MORNING AND TAKE 1 CAPSULE BY MOUTH AT NOON AND TAKE 2 CAPSULES BY MOUTH AT BEDTIME 360 Jul 06, 2020 [id number] March 31, 2020 BALTRUSAITISELEUTERIO [facility] GLUCAGON 1MG/GABRIELLA INJ,EMERGENCY KIT INJEC T 1MG SUBCUTANEOUSLY NEEDED FOR SEVERE HYPOGLYCEMIA 1 Nov 30, 2019 [id number] Nov 03, 2019 [facility] INSULIN,ASPART,HUMAN 100U/ML,NOVOLOG,FLEXPEN,3ML Active: On Hold INJECT 20 UNITS SUBCUTANEOUSLY BEFORE BREAKFAST AND INJECT 20 UNITS BEFORE LUNCH AND INJECT 26 UNITS BEFORE SUPPER AND INJECT 24 UNITS SNACK FOR BLOOD SUGAR CONTROL. ADMINISTER 10 MINUTES BEFORE FOOD DIRECTED. REFRIGERATE UN-OPENED PENS. DISCARD CARTRIDGE 28 DAYS AFTER OPENING. PLUS CORRECTION Mar 01, 2021 [id number] BALTRELEUTERIO ROJAS [facility] INSULIN,ASPART,HUMAN 100U/ML,NOVOLOG,FLEXPEN,3ML Discontinue d INJECT 20 UNITS SUBCUTANEOUSLY BEFORE BREAKFAST AND INJECT 20 UNITS BEFORE LUNCH AND INJECT 24 UNITS BEFORE SUPPER AND INJECT 24 UNITS SNACK FOR BLOOD SUGAR CONTROL. ADMINISTER 10 MINUTES BEFORE FOOD DIRECTED. REFRIGERATE UN-OPENED PENS. DISCARD CARTRIDGE 28 DAYS AFTER OPENING. PLUS CORRECTION Jan 26, 2021 [id number] Jan 28, 2020 ELEUTERIO LIVINGSTON [facility] INSULIN,ASPART,HUMAN 100U/ML,NOVOLOG,FLEXPEN,3ML Discontinue d INJECT 20 UNITS SUBCUTANEOUSLY BEFORE MEALS FOR BLOOD SUGAR CONTROL. ADMINISTER 10 MINUTES BEFORE FOOD DIRECTED. REFRIGERATE UN-OPENED PENS. DISCARD CARTRIDGE 28 DAYS AFTER OPENING. PLUS CORRECTION FOR BLOOD SUGAR CONTROL. ADMINISTER 10 MINUTES BEFORE FOOD DIRECTED. REFRIGERATE UN-OPENED PENS. DISCARD CARTRIDGE 28 DAYS AFTER OPENING. PLUS CORRECTION Nov 16, 2020 [id number] Nov 16 ELEUTERIO LIVINGSTON [facility] INSULIN,ASPART,HUMAN 100U/ML,NOVOLOG,FLEXPEN,3ML Discontinue d INJECT 15 UNITS SUBCUTANEOUSLY EVERY MORNING BEFORE MEAL AND INJECT 15 UNITS WITH LUNCH AND INJECT 15 UNITS WITH SUPPER AND INJECT 20 UNITS WITH SNACK FOR BLOOD SUGAR CONTROL. ADMINISTER 10 MINUTES BEFORE FOOD DIRECTED. REFRIGERATE UN-OPENED PENS. DISCARD CARTRIDGE 28 DAYS AFTER OPENING. Dec 22, 2019 [id number] Oct 12, 2019 ELEUTERIO LIVINGSTON [facility] INSULIN,GLARGINE,HUMAN 100 UNIT/ML INJ,SOLOSTAR,3ML Active INJECT 50 UNITS SUBCUTANEOUSLY EVERY MORNING FOR BLOOD SUGAR CONTROL. ADMINISTER AT SAME TIME EACH DAY DIRECTED. DISCARD ANY OPEN CARTRIDGE AFTER 28 DAYS. Sep 23, 2020 [id number] Jan 28, 2020 ELEUTERIO LIVINGSTON [facility] INSULIN,GLARGINE,HUMAN 100 UNIT/ML INJ,SOLOSTAR,3ML Disconti nued INJECT 45 UNITS SUBCUTANEOUSLY EVERY MORNING FOR BLOOD SUGAR CONTROL. ADMINISTER AT SAME TIME EACH DAY DIRECTED. DISCARD ANY OPEN CARTRIDGE AFTER 28 DAYS. Oct 23, 2019 [id number] Aug 30, 2019 [facility] LACTOBACILLUS ACIDOPHILUS TAB,CHEWABLE Non-VA CHEW ONE TABLET BY MOUTH ONCE A DAY Non-VA Documented by: MEGAN HAWK nted at: [facility] LANCET,SOFTCLIX Active USE LANCET 5 TIME S A DAY FOR TESTING BLOOD GLUCOSE DIRECTED 500 Dec 28, 2020 [id number] March 19, 2020 ELEUTERIO LIVINGSTON [facility] LANCET,SOFTCLIX Discontinued USE LANCET 5 TIME S A DAY FOR TESTING BLOOD GLUCOSE DIRECTED 500 Jan 11, 2020 [id number] Sep 29, 2019 YAYA KAYLAISELEUTERIO [facility] MAGNESIUM OXIDE 400MG TAB Non-VA TAKE ONE TABLET BY MOUTH ONCE A DAY Non-VA Documented by: MEGAN HAWK nted at: [facility] METOPROLOL SUCCINATE 200MG TAB,SA TAKE O NE-HALF TABLET BY MOUTH EVERY EVENING FOR HEART/BLOOD PRESSURE. SWALLOW WHOLE, DO NOT CRUSH OR CHEW (TABLETS MAY BE CUT IN HALF). 45 March 18, 2020 [id number] Dec 28, 2019 STANISLAV HAMMER [facility] NEEDLE 22G 1.5IN USE NEEDLE FOR EVERY MONTH 1 Nov 12, 2019 [id number] Feb 07, 2019 ADELAIDA CLIFFORD [facility] NEEDLE,PEN 31G,5MM Discontinued USE NEEDLE SUBCUTANE OUSLY 5 TIMES A DAY - THIS IS A SINGLE USE NEEDLE AND SHOULD BE DISCARDED AFTER USE 500 Dec 21, 2019 [id number] Sep 28, 2019 ELEUTERIO LIVINGSTON [facility] POTASSIUM CHLORIDE 10MEQ TAB,SA Active TAKE TWO TABLETS BY MOUTH TWO TIMES A DAY FOR POTASSIUM SUPPLEMENTATIONTAKE WITH FOOD 360 Dec 12, 2020 [id number] Mar 02, 2020 [facility] POTASSIUM CHLORIDE 10MEQ TAB,SA Discontinued TAKE ONE TABLET BY MOUTH THREE TIMES A DAY WITH MEALS FOR POTASSIUM SUPPLEMENTATIONTAKE WITH FOOD 180 March 16, 2020 [id number] Nov 29, 2019 ELEUTERIO LIVINGSTON [facility] POTASSIUM CHLORIDE 10MEQ TAB,SA Discontinued TAKE ONE TABLET BY MOUTH THREE TIMES A DAY WITH MEALS FOR POTASSIUM SUPPLEMENTATIONTAKE WITH FOOD 180 May 26, 2019 [id number] Jan 24, 2019 [facility] SYRINGE 2.5-3ML/NDL 25G 1IN Active USE 1 SYRINGE EVERY MONTH 3 Feb 21, 2021 [id number] March 20, 2020 THOM CHAMBERS [facility] SYRINGE 2.5-3ML/NDL 25G 1IN Discontinued USE 1 SYRINGE EVERY Thu 3 March 18, 2020 [id number] Dec 21, 2019 REYESTHOM MIGUEL ANGEL [facility] TESTOSTERONE CYPIONATE 200MG/ML INJ,1ML (IN OIL) Active INJECT 200 MG (1 ML) INTRAMUSCULARLY EVERY MONTH FOR HORMONE REPLACEMENT 1 May 18, 2020 [id number] April 06, 2020 ADELAIDA CLIFFORD [facility] TESTOSTERONE CYPIONATE 200MG/ML INJ,1ML (IN OIL) Discontinue d INJECT 200 MG (1 ML) INTRAMUSCULARLY EVERY MONTH FOR HORMONE REPLACEMENT March 25, 2020 [id number] Oct 25, 2019 ADELAIDA CLIFFORD [facility] TESTOSTERONE CYPIONATE 200MG/ML INJ,1ML (IN OIL) Discontinue d INJECT 200 MG (1 ML) INTRAMUSCULARLY EVERY MONTH FOR HORMONE REPLACEMENT Nov 06, 2019 [id number] Sep 25, 2019 ADELAIDA CLIFFORD [facility] TESTOSTERONE CYPIONATE 200MG/ML INJ,1ML (IN OIL) Discontinue d INJECT 200 MG (1 ML) INTRAMUSCULARLY EVERY MONTH FOR HORMONE REPLACEMENT May 14, 2019 [id number] Apr 10, 2019 ADELAIDA CLIFFORD [facility] TRAMADOL HCL 50MG TAB Active TAKE 1 TO 2 TABLET S BY MOUTH EVERY 6 HOURS NEEDED FOR PAIN 180 Jul 21, 2020 [id number] March 30, 2020 NELLA [facility] 15 TRAMADOL HCL 50MG TAB Discontinued TAKE 1 TO 2 TABLET S BY MOUTH EVERY 6 HOURS NEEDED FOR PAIN 180 Jun 06, 2020 [id number] Jan 11, 2020 ROSSY [facility] 15 TRAMADOL HCL 50MG TAB Discontinued TAKE 1 TO 2 TABLET S BY MOUTH EVERY 6 HOURS NEEDED FOR PAIN 180 Jun 06, 2020 [id number] Dec 06, 2019 ROSSY [facility] 15 TRAMADOL HCL 50MG TAB Discontinued TAKE 1 TO 2 TABLET S BY MOUTH EVERY 6 HOURS NEEDED FOR PAIN 180 Dec 14, 2019 [id number] Nov 15, 2019 DANTE VALVERDE [facility] TRAMADOL HCL 50MG TAB Discontinued TAKE 1 TO 2 TABLET S BY MOUTH EVERY 6 HOURS NEEDED FOR PAIN 180 Jul 06, 2019 [id number] May 26, 2019 ROSSY [facility] TRIAMCINOLONE ACETONIDE 0.5% CREAM,TOP Active A PPLY SPARINGLY TO AFFECTED AREA ONCE A DAY NEEDED FOR RASH 45 Jul 15, 2020 [id number] April 01 0 THOM CHAMBERS [facility] TRIAMCINOLONE ACETONIDE 0.5% CREAM,TOP Discontinued A PPLY SPARINGLY TO AFFECTED AREA ONCE A DAY NEEDED FOR RASH 45 Oct 12, 2019 [id number] Jul THOM CHAMBERS [facility] Problems (Conditions): All historical and current Section Date Range: From patient's date of to the date document was create d. This section includes a list of Problems (Conditions) know n to CT for the patient. It includes both active and inacti ve problems (conditions). The data comes from all CT treatment facilities. Problem Status Problem Code Date of Onset Date of Resolution Comm ent(s) Provider Source Basal cell carcinoma of scalp Active [id number] THOM CHAMBERS [facility] Chronic back pain Active [id number] TERRIE CHAMBERS [facility] Chronic kidney disease stage 3 Active 327904540 THOM CHAMBERS [facility] Constipation Active 91244964 THOM CHAMBERS [facility] Diabetes mellitus Active 70499280 THOM CHAMBERS [facility] Diabetic neuropathy Active 010631261 Neha CHAMBERS [facility] Essential hypertension Active 02198977 THOM CHAMBERS [facility] Hyperlipidemia Active 40776894 THOM CHAMBERS [facility] Hypogonadism Active 46341409 THOM CHAMBERS [facility] Sleep apnea Active 54975848 THOM CHAMBERS [facility] Radiology Reports: +/- 30 days of the encounter No Data Provided for This Section Pathology Reports: +/- 30 days of the encounter No Data Provided for This Section Encounter Notes: All associated encounter notes This section contains the clinical notes associated to the Encounter. Date/Time Encounter Note(s) Provider Source Jan 12, 2020 09:51 AM NURSING OUTPATIENT NOTE: LOCAL TITLE: EK-NURSING CLINIC CHECK-IN STANDARD TITLE: NURSING OUTPATIENT NOTE DATE OF NOTE: JAN 12, 2020@09:51 ENTRY DATE: JAN 12, 2020@10:06:47 AUTHOR: BARBARA DUNCAN EXP COSIGNER: URGENCY: STATUS: COMPLETED Travel Screen: The patient indicated that they or their close contacts have not traveled outside of the [place] in the past 21 days. PRIMARY REASON FOR VISIT TODAY: NH for testosterone injection and Shingrix #2 PATIENT'S GOAL/MISSION FOR THEIR HEALTH: "I just want to remain healthy." ALLERGIES/ADR: METFORMIN, LISINOPRIL VITALS: DATE/TIME TEMP PULSE RESP BP PAIN WEIGHT PUL OX 01/12/20 @ 0951 97.8 53 20 122/62 7 174.9 95 REPRODUCTIVE HISTORY: Concerns regardng sexual/reproductive health: None LEARNING ASSESSMENT: Patient's preferred language for discussing health care is: Swedish Today's learning assessment regarding patient's readiness to learn. Patient reads well. Barriers to Learning: Has no barriers to learning. Preferred Method of Learning: Reading Listening Seeing / Videos Demonstration Return Demonstration Hands On/Doing Education provided as per documentation below: SCREENING FOR PAIN STATUS: Patient reported pain level as 7 (01/12/2020 09:51) on 0 to 10 scale. Pain Scale used: Numerical Pain Scale Patient states current level of pain is: Acceptable Location of pain that most interferes with your life: Feet and back Characteristics of pain: PAIN QUALITY: Aching, Sharp, Burning, Pins & needles Verbal Education Provided: To patient, Pain prevention by exercise and reducing stress Understanding of education: Patient: Good Patient Support Member: Not applicable Barriers to Learning: None SCREENING FOR FALL RISK: Holt Fall Assessment History of Falling, immediate or within 3 months: 0 - No Has the patient fallen within the last 12 months? No Secondary Diagnosis: 15 - Yes, more than one diagnosis Ambulatory Aid: 0 - None, bed rest nurse assist Intravenous Therapy: 0 - No Patient's Gait: 0 - Normal, bed rest, immobile Mental Status: 0 - Oriented to own ability Total Score: 15 Score 0-24 - No intervention indicated SCREENING FOR ABUSE/NEGLECT: Do you have any concerns about feeling safe, neglected or abused? Patient reports feeling safe; denies concern of abuse or neglect. SECURE MESSAGING: Patient was invited/encouraged to utilize Secure Messaging for medication refill requests and other non-urgent communication. N:Zoster Immunization: The patient received recombinant zoster vaccine (RZV) 0.5 ml IM in Left deltoid. Supervisor Telephone Answering Service: [employer] Lot#s and Expiration Date: [id number] 12/14/21 [email or web address] 10/12/21 Administered by protocol/policy Complications: None The VIS for the recombinant zoster vaccine (RZV) dated Aug was given to the patient. OTHER OBSERVATION/INTERVENTION: Pt in clinic today for: Testosterone injection Pt purchased injection medication from [place] hospital. Patient identity verified using 2 forms of ID: Name and Medication given: Testosterone 200 mg (1 ml) Order Verified:11/16/2019 Route: IM Location: RIGHT GM Mfg: [employer] Lot#: [id number] Exp: 03/2021 Dx: hypogonadism Initiated: Received locally until 01/07/19, then from the CT. Pt rock injection w/o difficulty. RTC O placed for Monthly testosterone injection at [facility] appt on 02/09/2020 DISPOSITION: To home at 1015 /noa/ BARBARA DUNCAN RN, BSN Signed: 01/12/2020 10:15 Receipt Acknowledged By: * AWAITING SIGNATURE * THOM CHAMBERS EDITH [facility] Jan 12, 2020 09:40 AM ADMINISTRATIVE NOTE: LOCAL TITLE: EK-ADMINISTRATIVE STANDARD TITLE: ADMINISTRATIVE NOTE DATE OF NOTE: JAN 12, 2020@09:40 ENTRY DATE: JAN 12, 2020@09:40:08 AUTHOR: KILLIAN DAVID EXP COSIGNER: URGENCY: STATUS: COMPLETED The screening questions for front-line staff, if they complete the check-in: Question #1: Script: a. Do you have a fever*? NO b. Do you have a new or worsening cough or shortness of breath? NO c. Do you have flu-like symptoms? NO Question #2: Script: Has or a close contact traveled to traveled to an area with widespread or sustained community transmission of the Coronavirus Disease 2019 (COVID-19) within 14 days of symptom ons et? NO Question #3: Script: Have you been in close contact with someone, including health care workers, confirmed to have the Coronavirus Disease 2019 (COVID-19)? NO /noa/ KILLIAN DAVID Signed: 01/12/2020 09:40 KILLIAN DAVID [facility]
--- OUTSIDE RECORDS SUMMARY | 2020-04-18 09:37 | XMS REPORT | Encounter Summary ---
Author [facility] Address [address] [place] [id number] Phone Unavailable Care Team Providers Care Commercial Escrow Officer Name Role Phone REYES THOM PCP Unavailable [...] to Policy Woodard [facility] ([facility]) MEDICARE ADVANTAGE [facility] ([facility]) Nov 09, 2017 [id number] [phone] SIMI COVARRUBIAS PATIENT [facility] ([facility]) MEDICARE ADVANTAGE MCR ([facility]) Nov 09, 2017 [id number] [phone] SIMI COVARRUBIAS PATIENT AETNA MCR ([facility]) MEDICARE ADVANTAGE MCR ([facility]) Nov 09, [id number] SIMI COVARRUBIAS PATIENT Selected Encounter This section includes the information on record at [place] for the Encounter. Date/Time Encounter Type Encounter Description Reason Provider Source Jan 26, 2020 03:00 PM Outpatient Encounter TELEPHONE PRIMARY CAR E ICD-10-CM E11.9 Type 2 diabetes mellitus without complications with Provider Comments: Diabetes mellitus (SCT [id number]) LYNDATRELEUTERIO ROJAS [facility] [place] [facility] IHE Encounter Template Text not used by VA Assessments - Encounter Diagnoses This section includes the primary and secondary diag noses documented for the Encounter. Date/Time Primary/Secondary Diagnosis Diagnosis Name Provider Source Jan 26, 2020 03:00 PM PRIMARY Type 2 diabetes mellitus w ithout complications [place] [facility] [place] [facility] Plan of Treatment: Future Appointments [...] data comes from all [place] treatment facilities. Appointment Date/Time Appointment Type Appointment Facili ty Name Feb 29, 2020 02:30 PM AMBULATORY - NONE [facility] [place] [facility] March 20, 2020 08:00 AM AMBULATORY - MEDICINE [facility] March 28, 2020 11:30 AM AMBULATORY - NONE [facility] [place] [facility] Apr 19, 2020 11:00 AM AMBULATORY - NONE [facility] [place] [facility] Apr 26, 2020 10:45 AM AMBULATORY - NONE [facility] T, [place] 15 Surgical Procedures: All associated [...] Adverse Reactions (ADR s) on record with [place] for the patient. The data comes from a ll [place] treatment facilities. It does not list Allergies/ADRs that were removed or entered in error. Some allergies/ADRs may be reported in t he Immunization section. Allergen Event Date Event Type Reaction(s) Severity Source LISINOPRIL Dec 01, 2017 Propensity to adverse reactions to drug (disorder) Renal impairment [facility], [facility] 15 METFORMIN Dec 01, 2017 Propensity to adverse reactions to drug (disorder) Renal impairment [facility], [facility] 15 Medications: VA dispensed (-15 months) and Non-VA Documented (Obtained Outside V A) Section Date Range: 1) prescriptions processed by a VA pharmacy in the last 15 m [facility], and 2) all medications recorded in [...] TIMES A DAY 400 Sep 12, 2020 [id number] Feb 29, 2020 ELEUTERIO LIVINGSTON [facility] ACCU-CHEK ROSINA PLUS (GLUCOSE) TEST STRIP Discontinued USE 1 STRIP FOR TESTING FOUR TIMES A DAY 400 Sep 15, 2019 [id number] Jun 13, 2019 ELEUTEIRO LARA [facility] ALCOHOL PREP PAD Discontinued USE 1 PAD ON SKIN FOUR TIMES A DAY 40 0 Apr 25, 2020 [id number] Nov 29, 2019 ELEUTERIO LIVINGSTON [facility] [place] [facility] ALCOHOL PREP PAD Discontinued USE 1 PAD ON SKIN FOUR TIMES A DAY 40 0 Sep 15, 2019 [id number] Apr 18, 2019 BALTRUSAITIS,ELEUTERIO Laron [facility] ALLOPURINOL 100MG TAB Active TAKE ONE TABLET BY MOUTH ONCE A DAY FOR GOUT. TAKE WITH PLENTY OF WATER 90 Sep 23, 2020 [id number] Mar 05, 2020 SILVINA CHAMBERS [facility] [place] [facility] ALLOPURINOL 100MG TAB Discontinued TAKE ONE TABLET BY MOUTH ONCE A DAY FOR GOUT. TAKE WITH PLENTY OF WATER 90 Dec 30, 2019 [id number] Sep 17, 2019 THOM SHARPE [facility] [place] [facility] ALOGLIPTIN 12.5MG TAB Active TAKE ONE TABLET BY MOUTH O NCE A DAY FOR DIABETES 90 Sep 12, 2020 [id number] Mar 04, 2020 BALTRUSAITIS,ELEUTERIO CRESPO [facility] [place] [facility] ALOGLIPTIN 12.5MG TAB Discontinued TAKE ONE TABLET BY MOUTH ONCE A DAY FOR DIABETES 90 Dec 22, 2019 [id number] Jun 18, 2019 BALTRUSAITIS,ELEUTERIO Larry [facility] [place] [facility] AMLODIPINE BESYLATE 10MG TAB Discontinued TAKE ONE TA BLET BY MOUTH EVERY MORNING FOR HEART/BLOOD PRESSURE 90 Jun 10, 2019 [id number] Feb 25, 2019 MONIKA HAMMER [facility] [place] [facility] AMLODIPINE BESYLATE 10MG TAB TAKE ONE TA BLET BY MOUTH EVERY MORNING FOR HEART/BLOOD PRESSURE 90 Apr 12, 2020 [id number] Feb 10, 2020 SILVINA CHAMBERS [facility] ASPIRIN 81MG TAB,CHEWABLE Non-VA CHEW ONE TABLET BY MOUTH ONCE A DAY Non-VA Documented by: MEGAN HAWK nted at: [facility] [place] [facility] ATORVASTATIN CA 20MG TAB Active TAKE ONE TABLET BY MOUTH ONCE A DAY FOR CHOLESTEROL. REPORT ANY UNEXPLAINED MUSCLE PAIN OR WEAKNESS TO YOUR DOCTOR. 90 Jan 02, 2021 [id number] March 24, 2020 NELLA GROVE [facility], MICHAELLE 15 ATORVASTATIN CA 40MG TAB Discontinued TAKE ONE-HALF T ABLET BY MOUTH AT BEDTIME FOR CHOLESTEROL. REPORT ANY UNEXPLAINED MUSCLE PAIN OR WEAKNESS TO YOUR DOCTOR. 45 Jul 15, 2020 [id number] Oct 14, 2019 THOM CHAMBERS [facility] [place] [facility] ATORVASTATIN CA 40MG TAB Discontinued TAKE ONE-HALF T ABLET BY MOUTH AT BEDTIME FOR CHOLESTEROL. REPORT ANY UNEXPLAINED MUSCLE PAIN OR WEAKNESS TO YOUR DOCTOR. 45 Oct 12, 2019 [id number] Jul 16, 2019 THOM CHAMBERS [facility] CALCIUM CARBONATE 500MG TAB,CHEWABLE Non-VA CHEW ONE TABLET BY MOUTH PRN Non-VA Documented by: THOM CHAMBERS nted at: [facility] CHLORTHALIDONE 25MG TAB Active TAKE ONE TABLET BY MOUTH ONCE A DAY 90 Jul 01, 2020 [id number] March 19, 2020 MONIKA HAMMER [facility] [place] [facility] CHLORTHALIDONE 25MG TAB Discontinued TAKE ONE TABLET BY MOUTH ONCE A DAY 90 Jun 16, 2019 [id number] Apr 12, 2019 MONIKA HAMMER [facility] [place] [facility] CHOLECALCIFEROL 1000UNT TAB Non-VA TAKE ONE TABLET BY MOUTH EVERY OTHER DAY Non-VA Docume nted by: MEGAN HAWK nted at: [facility] [place] CYANOCOBALAMIN 1000MCG/ML INJ Active INJECT 100 0 MCG (1 ML) INTRAMUSCULARLY EVERY MONTH FOR B12 SUPPLEMENTATION. 3 Nov 03, 2020 [id number] Apr 23, 2020 THOM CHAMBERS [facility] [place] [facility] CYANOCOBALAMIN 1000MCG/ML INJ Discontinued INJECT 100 0 MCG (1 ML) INTRAMUSCULARLY EVERY MONTH FOR B12 SUPPLEMENTATION. 3 Nov 17 0 [id number] Aug 07, 2019 [facility] [place] [facility] DIPHENHYDRAMINE HCL 25MG CAP Non-VA TAKE 1 CAPSULE BY MOUTH PRN Non-VA Documented by: THOM CHAMBERS nted at: [facility] DOCUSATE NA 100MG CAP No n-VA TAKE 2 CAPSULES BY MOUTH ONCE A DAY Non-VA Documented by: THOM CHAMBERS nted at: [facility] FISH OIL 1000MG (500MG DHA/EPA) CAP,ORAL Non-VA TAKE 1 CAPSULE BY MOUTH ONCE A DAY Non-VA Documented by: MEGAN HAWKume nted at: [facility] GABAPENTIN 100MG CAP Active TAKE 1 CAPSULE BY M OUTH EVERY MORNING AND TAKE 1 CAPSULE BY MOUTH AT NOON AND TAKE 2 CAPSULES BY MOUTH AT BEDTIME 360 Jul 06, 2020 [id number] March 31, 2020 BALTRUSAITIS,ELEUTERIO Larry [facility] [place] [facility] GLUCAGON 1MG/GABRIELLA INJ,EMERGENCY KIT INJEC T 1MG SUBCUTANEOUSLY NEEDED FOR SEVERE HYPOGLYCEMIA 1 Nov 30, 2019 [id number] Nov 03, 2019 THOM CHAMBERS [facility] [place] [facility] INSULIN,ASPART,HUMAN 100U/ML,NOVOLOG,FLEXPEN,3ML Active: On Hold INJECT 20 UNITS SUBCUTANEOUSLY BEFORE BREAKFAST AND INJECT 20 UNITS BEFORE LUNCH AND INJECT 26 UNITS BEFORE SUPPER AND INJECT 24 UNITS SNACK FOR BLOOD SUGAR CONTROL. ADMINISTER 10 MINUTES BEFORE FOOD DIRECTED. REFRIGERATE UN-OPENED PENS. DISCARD CARTRIDGE 28 DAYS AFTER OPENING. PLUS CORRECTION Mar 01, 2021 [id number] [facility] [place] [facility] INSULIN,ASPART,HUMAN 100U/ML,NOVOLOG,FLEXPEN,3ML Discontinue d INJECT 20 UNITS SUBCUTANEOUSLY BEFORE BREAKFAST AND INJECT 20 UNITS BEFORE LUNCH AND INJECT 24 UNITS BEFORE SUPPER AND INJECT 24 UNITS SNACK FOR BLOOD SUGAR CONTROL. ADMINISTER 10 MINUTES BEFORE FOOD DIRECTED. REFRIGERATE UN-OPENED PENS. DISCARD CARTRIDGE 28 DAYS AFTER OPENING. PLUS CORRECTION Jan 26, 2021 [id number] Jan 28, 2020 [facility] [place] [facility] INSULIN,ASPART,HUMAN 100U/ML,NOVOLOG,FLEXPEN,3ML Discontinue d INJECT 20 UNITS SUBCUTANEOUSLY BEFORE MEALS FOR BLOOD SUGAR CONTROL. ADMINISTER 10 MINUTES BEFORE FOOD DIRECTED. REFRIGERATE UN-OPENED PENS. DISCARD CARTRIDGE 28 DAYS AFTER OPENING. PLUS CORRECTION FOR BLOOD SUGAR CONTROL. ADMINISTER 10 MINUTES BEFORE FOOD DIRECTED. REFRIGERATE UN-OPENED PENS. DISCARD CARTRIDGE 28 DAYS AFTER OPENING. PLUS CORRECTION Nov 16, 2020 [id number] Nov 16 [facility] INSULIN,ASPART,HUMAN 100U/ML,NOVOLOG,FLEXPEN,3ML Discontinue d INJECT 15 UNITS SUBCUTANEOUSLY EVERY MORNING BEFORE MEAL AND INJECT 15 UNITS WITH LUNCH AND INJECT 15 UNITS WITH SUPPER AND INJECT 20 UNITS WITH SNACK FOR BLOOD SUGAR CONTROL. ADMINISTER 10 MINUTES BEFORE FOOD DIRECTED. REFRIGERATE UN-OPENED PENS. DISCARD CARTRIDGE 28 DAYS AFTER OPENING. Dec 22, 2019 5 [id number] Oct 12, 2019 [facility] [place] [facility] INSULIN,GLARGINE,HUMAN 100 UNIT/ML INJ,SOLOSTAR,3ML Active INJECT 50 UNITS SUBCUTANEOUSLY EVERY MORNING FOR BLOOD SUGAR CONTROL. ADMINISTER AT SAME TIME EACH DAY DIRECTED. DISCARD ANY OPEN CARTRIDGE AFTER 28 DAYS. 15 Sep 23, 2020 [id number] Jan 28, 2020 ELEUTERIO LIVINGSTON [facility] INSULIN,GLARGINE,HUMAN 100 UNIT/ML INJ,SOLOSTAR,3ML Disconti nued INJECT 45 UNITS SUBCUTANEOUSLY EVERY MORNING FOR BLOOD SUGAR CONTROL. ADMINISTER AT SAME TIME EACH DAY DIRECTED. DISCARD ANY OPEN CARTRIDGE AFTER 28 DAYS. Oct 23, 2019 [id number] Aug 30, 2019 ELEUTERIO LIVINGSTON [facility] LACTOBACILLUS ACIDOPHILUS TAB,CHEWABLE Non-VA CHEW ONE TABLET BY MOUTH ONCE A DAY Non-VA Documented by: MEGAN HAWK nted at: [facility] LANCET,SOFTCLIX Active USE LANCET 5 TIME S A DAY FOR TESTING BLOOD GLUCOSE DIRECTED 500 Dec 28, 2020 [id number] March 19, 2020 [facility] LANCET,SOFTCLIX Discontinued USE LANCET 5 TIME S A DAY FOR TESTING BLOOD GLUCOSE DIRECTED 500 Jan 11, 2020 [id number] Sep 29, 2019 ELEUTERIO PATEL [facility] DIV MAGNESIUM OXIDE 400MG TAB Non-VA TAKE ONE TABLET BY MOUTH ONCE A DAY Non-VA Documented by: MEGAN HAWK nted at: [facility] DIV METOPROLOL SUCCINATE 200MG TAB,SA TAKE O NE-HALF TABLET BY MOUTH EVERY EVENING FOR HEART/BLOOD PRESSURE. SWALLOW WHOLE, DO NOT CRUSH OR CHEW (TABLETS MAY BE CUT IN HALF). 45 March 18, 2020 [id number] Dec 28, 2019 STANISLAV HAMMER [facility] NEEDLE 22G 1.5IN USE NEEDLE FOR EVERY MONTH Nov 12, 2019 [id number] Feb 07, 2019 ADELAIDA CLIFFORD [facility] NEEDLE,PEN 31G,5MM Discontinued USE NEEDLE SUBCUTANE OUSLY 5 TIMES A DAY - THIS IS A SINGLE USE NEEDLE AND SHOULD BE DISCARDED AFTER USE 500 Dec 21, 2019 [id number] Sep 28, 2019 ELEUTERIO LIVINGSTON [facility] [place] [facility] POTASSIUM CHLORIDE 10MEQ TAB,SA Active TAKE TWO TABLETS BY MOUTH TWO TIMES A DAY FOR POTASSIUM SUPPLEMENTATIONTAKE WITH FOOD 360 Dec 12, 2020 [id number] Mar 02, 2020 INGRIDYANELY [facility] [place] POTASSIUM CHLORIDE 10MEQ TAB,SA Discontinued TAKE ONE TABLET BY MOUTH THREE TIMES A DAY WITH MEALS FOR POTASSIUM SUPPLEMENTATIONTAKE WITH FOOD 180 March 16, 2020 [id number] Nov 29, 2019 BALTRUSAITIS,[facility]UTERIO [facility] [place] [facility] POTASSIUM CHLORIDE 10MEQ TAB,SA Discontinued TAKE ONE TABLET BY MOUTH THREE TIMES A DAY WITH MEALS FOR POTASSIUM SUPPLEMENTATIONTAKE WITH FOOD 180 May 26, 2019 [id number] Jan 24, 2019 YANELY QUINTERO [facility] [place] [facility] SYRINGE 2.5-3ML/NDL 25G 1IN Active USE 1 SYRINGE EVERY MONTH 3 Feb 21, 2021 [id number] March 20, 2020 [facility] SYRINGE 2.5-3ML/NDL 25G 1IN Discontinued USE 1 SYRINGE EVERY Thu 3 March 18, 2020 [id number] Dec 21, 2019 [facility] TESTOSTERONE CYPIONATE 200MG/ML INJ,1ML (IN OIL) Active INJECT 200 MG (1 ML) INTRAMUSCULARLY EVERY MONTH FOR HORMONE REPLACEMENT 1 May 18, 2020 [id number] April 06, 2020 ADELAIDA CLIFFORD [facility] [place] [facility] TESTOSTERONE CYPIONATE 200MG/ML INJ,1ML (IN OIL) Discontinue d INJECT 200 MG (1 ML) INTRAMUSCULARLY EVERY MONTH FOR HORMONE REPLACEMENT 1 March 25, 2020 [id number] Oct 25, 2019 ADELAIDA CLIFFORD [facility] [facility] TESTOSTERONE CYPIONATE 200MG/ML INJ,1ML (IN OIL) Discontinue d INJECT 200 MG (1 ML) INTRAMUSCULARLY EVERY MONTH FOR HORMONE REPLACEMENT 1 Nov 06, 2019 [id number] Sep 25, 2019 ADELAIDA CLIFFORD [facility] [place] [facility] TESTOSTERONE CYPIONATE 200MG/ML INJ,1ML (IN OIL) Discontinue d INJECT 200 MG (1 ML) INTRAMUSCULARLY EVERY MONTH FOR HORMONE REPLACEMENT 1 May 14, 2019 [id number] Apr 10, 2019 ADELAIDA CLIFFORD [facility] [facility] TRAMADOL HCL 50MG TAB Active TAKE 1 TO 2 TABLET S BY MOUTH EVERY 6 HOURS NEEDED FOR PAIN 180 Jul 21, 2020 [id number] March 30, 2020 [facility] TRAMADOL HCL 50MG TAB Discontinued TAKE 1 TO 2 TABLET S BY MOUTH EVERY 6 HOURS NEEDED FOR PAIN 180 Jun 06, 2020 [id number] Jan 11, 2020 [facility] TRAMADOL HCL 50MG TAB Discontinued TAKE 1 TO 2 TABLET S BY MOUTH EVERY 6 HOURS NEEDED FOR PAIN 180 Jun 06, 2020 [id number] Dec 06, 2019 [facility] 15 TRAMADOL HCL 50MG TAB Discontinued TAKE 1 TO 2 TABLET S BY MOUTH EVERY 6 HOURS NEEDED FOR PAIN 180 Dec 14, 2019 [id number] Nov 15, 2019 [facility] [place] [facility] TRAMADOL HCL 50MG TAB Discontinued TAKE 1 TO 2 TABLET S BY MOUTH EVERY 6 HOURS NEEDED FOR PAIN 180 Jul 06, 2019 [id number] May 26, 2019 [facility] [place] [facility] TRIAMCINOLONE ACETONIDE 0.5% CREAM,TOP Active A PPLY SPARINGLY TO AFFECTED AREA ONCE A DAY NEEDED FOR RASH 45 Jul 15, 2020 [id number] April 01 0 [facility] [place] [facility] TRIAMCINOLONE ACETONIDE 0.5% CREAM,TOP Discontinued A PPLY SPARINGLY TO AFFECTED AREA ONCE A DAY NEEDED FOR RASH 45 Oct 12, 2019 [id number] Jul [facility] [place] [facility] Problems (Conditions): All historical and [...] Source Basal cell carcinoma of scalp Active [id number] [facility] [place] [facility] Chronic back pain Active [id number] [facility] [place] [facility] Chronic kidney disease stage 3 Active [id number] [facility] [place] [facility] Constipation Active [id number] [facility] [place] [facility] Diabetes mellitus Active [id number] THOM CHAMBERS [facility] [place] [facility] Diabetic neuropathy Active [id number] REYESNeha [facility] [place] [facility] Essential hypertension Active 91486464 [facility] [place] [facility] Hyperlipidemia Active 07597514 REYESTHOM JEFF ROSS [facility] [place] [facility] Hypogonadism Active 84613062 THOM CHAM[facility] DEEJAY [facility] [place] [facility] Sleep apnea Active [id number] REYESTHOM VIDAIsaac COBB [facility] [place] [facility] Radiology Reports: +/- 30 days of the encounter No Data Provided for This Section Pathology Reports: +/- 30 days of the encounter No Data Provided for This Section Encounter Notes: All associated encounter notes This section contains the clinical notes associated to the Encounter. Date/Time Encounter Note(s) Provider Source Jan 26, 2020 03:00 PM PHARMACY NOTE: LOCAL TITLE: EK-PHARMACY PRIMARY CARE STANDARD TITLE: PHARMACY NOTE DATE OF NOTE: JAN 26, 2020@15:00 ENTRY DATE: JAN 26, 2020@15:00:30 AUTHOR: REGGIE LIVINGSTON COSIGNER: URGENCY: STATUS: COMPLETED HALDSIMI is a 72 yo MALE contacted clinic via telephone. Team: TO-MICHAELA WELLER 1 *WH*; PCP: THOM CHAMBERS S: [place] reports doing well, in NAD. Correctly confirms current DM regimen, reports most days he need about 6 total additional units of Correction factor. "I think my BG are doing a lot better. I am still doing my exercises and my portion sizes are doing better. I still have a lot of room for improvement on my snacking problems." Reports his Non-VA PCP wants him to complete echo and stress test d/t having poor vascular circulation in his legs. HPI: At last appt had been doing better w/ his snacking and portion sizes to no changes his meds were made. [place] notes also being managed by Dr. Grove, non-VA provider, recently approved thru [employer]. [place] instructed to avoid co-management, thus plans to continue DM services with this blurb writer and other conditions will be deferred to Dr. Grove. DR. QUINTERO PHONE [phone]. Lifestyle: Physical Activity: walking/elliptica ~10-15 miles/day (2-3hrs/day) [...] meal (16:00-18:00): meat w/ potatoes; pork/beef steak small helping of potatoes + green beans; hot dog; beef stroganoff Snacks (22-23:00): hard boiled eggs, 10-15 pieces of fruit (bananas, grapes, watermelon), cup-cake, cheese pop- corn; sandwich Medication Adherence (self-report): good 1. DIABETES Current Regimen: -insulin glargine 50 units QPM -alogliptin 12.5mg -insulin aspart 20 units TID AC meals + 20 units w/ snack + CF Correction factor: BG 70-99: -2 UNITS BG 100-149: NORMAL DOSE BG 151-199: +1 UNITS BG 200-249: +2 UNITS BG 250-299: +3 UNITS BG 300-349: +4 UNITS24+ BG >350: +5 UNITS ASA: yes [place]/ARB: no (CKD) Statin: moderate intensity Previously tried meds: metformin - webmethods architect recommends against d/t hx of BRIGIDO with SCr 1.7 liraglutide - N/V Diabetes Complications: Retinopathy: last eye exam 05/04/19; (-) Gastropathy: denies bloating after meals, early satiety, GI complaints Nephropathy: microalbuminuria (+) 06/2019; Peripheral neuropathy: denies numbness, burning, tingling in hands/feet Foot Exam: 10/23/2017 (-)Abnormal BG Readings: Reports BG FBG ~95-120, ~2-3x up to 150 and ~2x up to 175 AC-Lunch: 90-120 AC-Supper: ~150 HS: mostly ~200-250 a few times up to 350 Hypoglycemia Episodes: denies Blood pressure: 118-140's/60-70's, PMH: Computerized Problem List is the source [...] Metformin: NO -CKD (renal doctor will not allow) --BG largely unchanged and remain above goals in evening d/t no additional changes to diet but has continued to be slightly better w/ portion control when compared to November. Based on this information will, --continue insulin glargine 50 units --continue insulin aspart 20 units + CF w/ AC BKF + AC lunch --INCREASE insulin aspart to 24 Units + CF AC supper + snack --Continue aloglipitin 12.5mg daily --reasonable to hold off on labs until COVID-19 risk is lower, currently ordered for April 05 2. HTN Goal <140/90 met: yes -managed by non-VA nephrology and PCP Reports BP elevated when taken w/ machine but at goal when taken manually. 3. Refills: none 4. Return to TO-PHARM PACT 5 PHONE on or around ( Feb 24, 2020 ) for a total of 1 appointment(s) Prerequisites: No Labs 02/23 2pm Learner: Patient Readiness to Learn: Accepting Barriers to Learning Noted: No Barriers Preferred Learning Style: Lecture, Printed Material Preferred language for discussing health care: Tajik Time spent with pt: 30 min PBM PharmD Pharmacotherapy Rem V11: PHARMACIST INTERVENTIONS: TYPE 2 DIABETES MELLITUS Medication Intervention(s) Adjust dose or frequency of current medication due to other reason Nonpharmacologic intervention chris /noa/ ELEUTERIO LIVINGSTON Clinical Stacker Driver Signed: 01/26/2020 15:57 ELEUTERIO LIVINGSTON [facility]
--- OUTSIDE RECORDS SUMMARY | 2020-04-18 09:40 | XMS REPORT ---
Author Author Department of [facility] SIMI palacio Organization Department of [facility] Address [address] [place] [phone] Phone Unavailable Care Team Providers Care Literacy Education Professor Name Role Phone THOM CHAMBERS PCP Unavailable [...] to Policy Woodard [facility] ([facility]) MEDICARE ADVANTAGE MCR ([facility]) Nov 09, 2017 [id number] [phone] SIMI COVARRUBIAS PATIENT [facility] (WNR) MEDICARE ADVANTAGE MCR ([facility]) Nov 09, 2017 [id number] [phone] SIMI COVARRUBIAS PATIENT [facility] ([facility]) MEDICARE ADVANTAGE MCR ([facility]) Nov 09, 2019 [id number] SIMI COVARRUBIAS PATIENT Selected Encounter This section includes the information on record at [place] for the Encounter. Date/Time Encounter Type Encounter Description Reason Provider Source Jan 10, 2020 08:00 AM Outpatient Encounter ADMIN PAT ACTIVTIES (MASNO NCT) [facility] [place] IHE Encounter Template Text [...] data comes from all [place] treatment facilities. Appointment Date/Time Appointment Type Appointment Facili ty Name Jan 12, 2020 10:00 AM AMBULATORY - NONE [facility] Jan 26, 2020 03:00 PM AMBULATORY - NONE [facility] [place] Feb 29, 2020 02:30 PM AMBULATORY - NONE [facility] [place] March 20, 2020 08:00 AM AMBULATORY - MEDICINE [facility] March 28, 2020 11:30 AM AMBULATORY - NONE [facility] [place] Apr 19, 2020 11:00 AM AMBULATORY - NONE [facility] [place] Apr 26, 2020 10:45 AM AMBULATORY - NONE [facility] T, [place] 15 Surgical Procedures: All [...] adverse reactions to drug (disorder) Renal impairment [facility] 15 METFORMIN Dec 01, 2017 Propensity to adverse reactions to drug (disorder) [facility] Medications: VA dispensed (-15 months) and Non-VA Documented (Obtained Outside A) Section Date Range: 1) prescriptions processed by a VA pharmacy in the last 15 m [facility], and 2) all medications recorded in the VA medical record as "non-VA medic ations". Pharmacy terms refer to VA pharmacy's work on prescriptions. VA patient s are advised to take their medications as instructed by their health care team. The data comes from all [place] treatment facilities. Glossary of Pharmacy Terms:Active = A prescription that can be filled at the local VA pharmacy.Active: On Hold = An active prescription [...] TIMES A DAY 400 Sep 12, 2020 [id number] Feb 29, 2020 BALTRELEUTERIO ROJAS [facility] ACCU-CHEK ROSINA PLUS (GLUCOSE) TEST STRIP Discontinued USE 1 STRIP FOR TESTING FOUR TIMES A DAY 400 Sep 15, 2019 [id number] Jun 13, 2019 BALTRUSAIT IS,ELEUTERIO WELLER [facility] ALCOHOL PREP PAD Discontinued USE 1 PAD ON SKIN FOUR TIMES A DAY 40 0 Apr 25, 2020 [id number] Nov 29, 2019 BALELEUTERIO KONG [facility] [place] ALCOHOL PREP PAD Discontinued USE 1 PAD ON SKIN FOUR TIMES A DAY 40 0 Sep 15, 2019 [id number] Apr 18, 2019 ELEUTERIO LIVINGSTON [facility] ALLOPURINOL 100MG TAB Active TAKE ONE TABLET BY MOUTH ONCE A DAY FOR GOUT. TAKE WITH PLENTY OF WATER 90 Sep 23, 2020 [id number] Mar 05, 2020 SILVINA CHAMBERS [facility] [place] ALLOPURINOL 100MG TAB Discontinued TAKE ONE TABLET BY MOUTH ONCE A DAY FOR GOUT. TAKE WITH PLENTY OF WATER 90 Dec 30, 2019 [id number] Sep 17, 2019 TERRIE SHARPEA [facility] [place] ALOGLIPTIN 12.5MG TAB Active TAKE ONE TABLET BY MOUTH O NCE A DAY FOR DIABETES 90 Sep 12, 2020 [id number] Mar 04, 2020 BALTRUSAELEUTERIO QUIGLEY RN [facility] [place] ALOGLIPTIN 12.5MG TAB Discontinued TAKE ONE TABLET BY MOUTH ONCE A DAY FOR DIABETES 90 Dec 22, 2019 [id number] Jun 18, 2019 BALTRUSAELEUTERIO QUIGLEY [facility] [place] AMLODIPINE BESYLATE 10MG TAB Discontinued TAKE ONE TA BLET BY MOUTH EVERY MORNING FOR HEART/BLOOD PRESSURE 90 Jun 10, 2019 [id number] Feb 25, 2019 MONIKA HAMMER [facility] [place] AMLODIPINE BESYLATE 10MG TAB TAKE ONE TA BLET BY MOUTH EVERY MORNING FOR HEART/BLOOD PRESSURE 90 Apr 12, 2020 [id number] Feb 10, 2020 SILVINA CHAMBERS [facility] ASPIRIN 81MG TAB,CHEWABLE Non-VA CHEW ONE TABLET BY MOUTH ONCE A DAY Non-VA Documented by: MEGAN HAWK nted at: [facility] [place] ATORVASTATIN CA 20MG TAB Active TAKE ONE TABLET BY MOUTH ONCE A DAY FOR CHOLESTEROL. REPORT ANY UNEXPLAINED MUSCLE PAIN OR WEAKNESS TO YOUR DOCTOR. 90 Jan 02, 2021 [id number] March 24, 2020 NELLA GROVE [facility] [place] 15 ATORVASTATIN CA 40MG TAB Discontinued TAKE ONE-HALF T ABLET BY MOUTH AT BEDTIME FOR CHOLESTEROL. REPORT ANY UNEXPLAINED MUSCLE PAIN OR WEAKNESS TO YOUR DOCTOR. 45 Jul 15, 2020 [id number] Oct 14, 2019 THOM CHAMBERS [facility] [place] ATORVASTATIN CA 40MG TAB Discontinued TAKE ONE-HALF T ABLET BY MOUTH AT BEDTIME FOR CHOLESTEROL. REPORT ANY UNEXPLAINED MUSCLE PAIN OR WEAKNESS TO YOUR DOCTOR. 45 Oct 12, 2019 [id number] Jul 16, 2019 THOM CHAMBERS [facility] [place] CALCIUM CARBONATE 500MG TAB,CHEWABLE Non-VA CHEW ONE TABLET BY MOUTH PRN Non-VA Documented by: THOM CHAMBERS nted at: [facility] CHLORTHALIDONE 25MG TAB Active TAKE ONE TABLET BY MOUTH ONCE A DAY 90 Jul 01, 2020 [id number] March 19, 2020 MONIKA HAMMER [facility] [place] CHLORTHALIDONE 25MG TAB Discontinued TAKE ONE TABLET BY MOUTH ONCE A DAY 90 Jun 16, 2019 [id number] Apr 12, 2019 MONIKA HAMMER [facility] [place] CHOLECALCIFEROL 1000UNT TAB Non-VA TAKE ONE TABLET BY MOUTH EVERY OTHER DAY Non-VA Docume nted by: MEGAN HAWK Docume nted at: [facility] [place] [facility] CYANOCOBALAMIN 1000MCG/ML INJ Active INJECT 100 0 MCG (1 ML) INTRAMUSCULARLY EVERY MONTH FOR B12 SUPPLEMENTATION. 3 Nov 03, 2020 [id number] Apr 23, 2020 THOM CHAMBERS [facility] [place] CYANOCOBALAMIN 1000MCG/ML INJ Discontinued INJECT 100 0 MCG (1 ML) INTRAMUSCULARLY EVERY MONTH FOR B12 SUPPLEMENTATION. 3 Nov 17 0 [id number] Aug 07, 2019 THOM CHAMBERS [facility] [place] DIPHENHYDRAMINE HCL 25MG CAP Non-VA TAKE 1 CAPSULE BY MOUTH PRN Non-VA Documented by: THOM CHAMBERS nted at: [facility] DOCUSATE NA 100MG CAP No n-VA TAKE 2 CAPSULES BY MOUTH ONCE A DAY Non-VA Documented by: THOM CHAMBERS nted at: [facility] FISH OIL 1000MG (500MG DHA/EPA) CAP,ORAL Non-VA TAKE 1 CAPSULE BY MOUTH ONCE A DAY Non-VA Documented by: MEGAN HAWK Docume nted at: [facility] [place] GABAPENTIN 100MG CAP Active TAKE 1 CAPSULE BY M OUTH EVERY MORNING AND TAKE 1 CAPSULE BY MOUTH AT NOON AND TAKE 2 CAPSULES BY MOUTH AT BEDTIME 360 Jul 06, 2020 [id number] March 31, 2020 ELEUTERIO LIVINGSTON [facility] [place] GLUCAGON 1MG/GABRIELLA INJ,EMERGENCY KIT INJEC T 1MG SUBCUTANEOUSLY NEEDED FOR SEVERE HYPOGLYCEMIA 1 Nov 30, 2019 [id number] Nov 03, 2019 THOM CHAMBERS [facility] [place] INSULIN,ASPART,HUMAN 100U/ML,NOVOLOG,FLEXPEN,3ML Active: On Hold INJECT 20 UNITS SUBCUTANEOUSLY BEFORE BREAKFAST AND INJECT 20 UNITS BEFORE LUNCH AND INJECT 26 UNITS BEFORE SUPPER AND INJECT 24 UNITS SNACK FOR BLOOD SUGAR CONTROL. ADMINISTER 10 MINUTES BEFORE FOOD DIRECTED. REFRIGERATE UN-OPENED PENS. DISCARD CARTRIDGE 28 DAYS AFTER OPENING. PLUS CORRECTION Mar 01, 2021 [id number] [facility] [place] [facility] INSULIN,ASPART,HUMAN 100U/ML,NOVOLOG,FLEXPEN,3ML Discontinue d INJECT 20 UNITS SUBCUTANEOUSLY BEFORE BREAKFAST AND INJECT 20 UNITS BEFORE LUNCH AND INJECT 24 UNITS BEFORE SUPPER AND INJECT 24 UNITS SNACK FOR BLOOD SUGAR CONTROL. ADMINISTER 10 MINUTES BEFORE FOOD DIRECTED. REFRIGERATE UN-OPENED PENS. DISCARD CARTRIDGE 28 DAYS AFTER OPENING. PLUS CORRECTION 30 Jan 26, 2021 [id number] Jan 28, 2020 [facility] [place] [facility] INSULIN,ASPART,HUMAN 100U/ML,NOVOLOG,FLEXPEN,3ML Discontinue d INJECT 20 UNITS SUBCUTANEOUSLY BEFORE MEALS FOR BLOOD SUGAR CONTROL. ADMINISTER 10 MINUTES BEFORE FOOD DIRECTED. REFRIGERATE UN-OPENED PENS. DISCARD CARTRIDGE 28 DAYS AFTER OPENING. PLUS CORRECTION FOR BLOOD SUGAR CONTROL. ADMINISTER 10 MINUTES BEFORE FOOD DIRECTED. REFRIGERATE UN-OPENED PENS. DISCARD CARTRIDGE 28 DAYS AFTER OPENING. PLUS CORRECTION 30 Nov 16, 2020 [id number] Nov 16 [facility] [place] INSULIN,ASPART,HUMAN 100U/ML,NOVOLOG,FLEXPEN,3ML Discontinue d INJECT 15 UNITS SUBCUTANEOUSLY EVERY MORNING BEFORE MEAL AND INJECT 15 UNITS WITH LUNCH AND INJECT 15 UNITS WITH SUPPER AND INJECT 20 UNITS WITH SNACK FOR BLOOD SUGAR CONTROL. ADMINISTER 10 MINUTES BEFORE FOOD DIRECTED. REFRIGERATE UN-OPENED PENS. DISCARD CARTRIDGE 28 DAYS AFTER OPENING. Dec 22, 2019 5 [id number] Oct 12, 2019 [facility] INSULIN,GLARGINE,HUMAN 100 UNIT/ML INJ,SOLOSTAR,3ML Active INJECT 50 UNITS SUBCUTANEOUSLY EVERY MORNING FOR BLOOD SUGAR CONTROL. ADMINISTER AT SAME TIME EACH DAY DIRECTED. DISCARD ANY OPEN CARTRIDGE AFTER 28 DAYS. Sep 23, 2020 [id number] Jan 28, 2020 [facility]ITIS[facility] INSULIN,GLARGINE,HUMAN 100 UNIT/ML INJ,SOLOSTAR,3ML Disconti nued INJECT 45 UNITS SUBCUTANEOUSLY EVERY MORNING FOR BLOOD SUGAR CONTROL. ADMINISTER AT SAME TIME EACH DAY DIRECTED. DISCARD ANY OPEN CARTRIDGE AFTER 28 DAYS. 15 Oct 23, 2019 [id number] Aug 30, 2019 ELEUTERIO LIVINGSTON [facility] LACTOBACILLUS ACIDOPHILUS TAB,CHEWABLE Non-VA CHEW ONE TABLET BY MOUTH ONCE A DAY Non-VA Documented by: MEGAN HAWK [facility] LANCET,SOFTCLIX Active USE LANCET 5 TIME S A DAY FOR TESTING BLOOD GLUCOSE DIRECTED 500 Dec 28, 2020 [id number] March 19, 2020 ELEUTERIO LIVINGSTON [facility] [place] LANCET,SOFTCLIX Discontinued USE LANCET 5 TIME S A DAY FOR TESTING BLOOD GLUCOSE DIRECTED 500 Jan 11, 2020 [id number] Sep 29, 2019 ELEUTERIO PATEL [facility] MAGNESIUM OXIDE 400MG TAB Non-VA TAKE ONE TABLET BY MOUTH ONCE A DAY Non-VA Documented by: MEGAN HAWK [facility] METOPROLOL SUCCINATE 200MG TAB,SA TAKE O NE-HALF TABLET BY MOUTH EVERY EVENING FOR HEART/BLOOD PRESSURE. SWALLOW WHOLE, DO NOT CRUSH OR CHEW (TABLETS MAY BE CUT IN HALF). 45 March 18, 2020 [id number] Dec 28, 2019 STANISLAV HAMMER [facility] NEEDLE 22G 1.5IN USE NEEDLE FOR EVERY MONTH Nov 12, 2019 [id number] Feb 07, 2019 ADELAIDA CLIFFORD [facility] [place] NEEDLE,PEN 31G,5MM Discontinued USE NEEDLE SUBCUTANE OUSLY 5 TIMES A DAY - THIS IS A SINGLE USE NEEDLE AND SHOULD BE DISCARDED AFTER USE 500 Dec 21, 2019 [id number] Sep 28, 2019 ELEUTERIO LIVINGSTON [facility] [place] [facility] POTASSIUM CHLORIDE 10MEQ TAB,SA Active TAKE TWO TABLETS BY MOUTH TWO TIMES A DAY FOR POTASSIUM SUPPLEMENTATIONTAKE WITH FOOD 360 Dec 12, 2020 [id number] Mar 02, 2020 YANELY QUINTERO [facility] [place] 15 POTASSIUM CHLORIDE 10MEQ TAB,SA Discontinued TAKE ONE TABLET BY MOUTH THREE TIMES A DAY WITH MEALS FOR POTASSIUM SUPPLEMENTATIONTAKE WITH FOOD 180 March 16, 2020 [id number] Nov 29, 2019 ELEUTERIO LIV[place] [facility] [place] POTASSIUM CHLORIDE 10MEQ TAB,SA Discontinued TAKE ONE TABLET BY MOUTH THREE TIMES A DAY WITH MEALS FOR POTASSIUM SUPPLEMENTATIONTAKE WITH FOOD 180 May 26, 2019 [id number] Jan 24, [address] [facility] [place] SYRINGE 2.5-3ML/NDL 25G 1IN Active USE 1 SYRINGE EVERY MONTH 3 Feb 21, 2021 [id number] March 20, 2020 [facility] SYRINGE 2.5-3ML/NDL 25G 1IN Discontinued USE 1 SYRINGE EVERY Thu 3 March 18, 2020 [id number] Dec 21, 2019 [facility]IC TESTOSTERONE CYPIONATE 200MG/ML INJ,1ML (IN OIL) Active INJECT 200 MG (1 ML) INTRAMUSCULARLY EVERY MONTH FOR HORMONE REPLACEMENT 1 May 18, 2020 [id number] April 06, 2020 ADELAIDA CLIFFORD [facility] [place] TESTOSTERONE CYPIONATE 200MG/ML INJ,1ML (IN OIL) Discontinue d INJECT 200 MG (1 ML) INTRAMUSCULARLY EVERY MONTH FOR HORMONE REPLACEMENT 1 March 25, 2020 [id number] Oct 25, 2019 ADELAIDA CLIFFORD [facility] [place] TESTOSTERONE CYPIONATE 200MG/ML INJ,1ML (IN OIL) Discontinue d INJECT 200 MG (1 ML) INTRAMUSCULARLY EVERY MONTH FOR HORMONE REPLACEMENT 1 Nov 06, 2019 [id number] Sep 25, 2019 ADELAIDA CLIFFORD [facility] [place] TESTOSTERONE CYPIONATE 200MG/ML INJ,1ML (IN OIL) Discontinue d INJECT 200 MG (1 ML) INTRAMUSCULARLY EVERY MONTH FOR HORMONE REPLACEMENT 1 May 14, 2019 [id number] Apr 10, 2019 ADELAIDA CLIFFORD [facility] [place] TRAMADOL HCL 50MG TAB Active TAKE 1 TO 2 TABLET S BY MOUTH EVERY 6 HOURS NEEDED FOR PAIN 180 Jul 21, 2020 [id number] March 30, 2020 NELLA GROVE [facility] [place] 15 TRAMADOL HCL 50MG TAB Discontinued TAKE 1 TO 2 TABLET S BY MOUTH EVERY 6 HOURS NEEDED FOR PAIN 180 Jun 06, 2020 [id number] Jan 11, 2020 [facility] TRAMADOL HCL 50MG TAB Discontinued TAKE 1 TO 2 TABLET S BY MOUTH EVERY 6 HOURS NEEDED FOR PAIN 180 Jun 06, 2020 [id number] Dec 06, 2019 [facility] TRAMADOL HCL 50MG TAB Discontinued TAKE 1 TO 2 TABLET S BY MOUTH EVERY 6 HOURS NEEDED FOR PAIN 180 Dec 14, 2019 [id number] Nov 15, 2019 [facility] VALVER[facility] [place] TRAMADOL HCL 50MG TAB Discontinued TAKE 1 TO 2 TABLET S BY MOUTH EVERY 6 HOURS NEEDED FOR PAIN 180 Jul 06, 2019 [id number] May 26, 2019 GROVENELLA MORELOS [facility] [place] TRIAMCINOLONE ACETONIDE 0.5% CREAM,TOP Active A PPLY SPARINGLY TO AFFECTED AREA ONCE A DAY NEEDED FOR RASH 45 Jul 15, 2020 [id number] April 01 0 [facility] [place] [facility] TRIAMCINOLONE ACETONIDE 0.5% CREAM,TOP Discontinued A PPLY SPARINGLY TO AFFECTED AREA ONCE A DAY NEEDED FOR RASH 45 Oct 12, 2019 [id number] Jul [facility] [place] [facility] Problems (Conditions): All historical and current Section Date Range: From patient's date of to the date document was create d. This section includes a list of Problems (Conditions) know n to [place] for the patient. It includes both active and inacti ve problems (conditions). The data comes from all [place] treatment facilities. Problem Status Problem Code Date of Onset Date of Resolution Comm ent(s) Provider Source Basal cell carcinoma of scalp Active [id number] THOM CHAMBERS [facility] [place] Chronic back pain Active [id number] REYESTERRIE WALL [facility] [place] Chronic kidney disease stage 3 Active [id number] [facility] [place] [facility] Constipation Active 53291602 THOM CHAMBERS [facility] [place] Diabetes mellitus Active [id number] [facility] [place] [facility] Diabetic neuropathy Active [id number] Neha CHAMBERS [facility] [place] Essential hypertension Active 85730754 THOM CHAMBERS [facility] [place] Hyperlipidemia Active 73576899 THOM CHAMBERS EA [facility] [place] Hypogonadism Active 44175209 THOM CHAMBERS [facility] [place] Sleep apnea Active [id number] THOM CHAMBERS RN [facility] [place] Radiology Reports: +/- 30 days of the encounter No Data Provided for This Section Pathology Reports: +/- 30 days of the encounter No Data Provided for This Section Encounter Notes: All associated encounter notes This section contains the clinical notes associated to the Encounter. Date/Time Encounter Note(s) Provider Source Jan 10, 2020 08:00 AM NONVA CONSULT: LOCAL TITLE: COMMUNITY CARE CONSULT RESULT NOTE EK STANDARD TITLE: NONVA CONSULT DATE OF NOTE: JAN 10, 2020@08:00 ENTRY DATE: FEB 16, 2020@15:00:10 AUTHOR: LYNN CABRERA COSIGNER: URGENCY: STATUS: COMPLETED Topic/Procedure: CARDIOLOGY PROGRESS NOTE Institution/Place: [facility] Date of Service: 01/10/20 To refer to the attached scanned document, on the Tools Bar select the Tools, then select Imaging (log in) and then, if needed, select View and display list. /noa/ LYNN CABRERA Signed: 02/16/2020 15:02 LYNN CABRERA [facility] [place]
--- OUTSIDE RECORDS SUMMARY | 2020-04-18 09:40 | XMS REPORT | Encounter Summary ---
Author Author Department [facility] SIMI palacio Organization Department of [facility] Address [address] [place] [phone] Phone Unavailable Care Team Providers Care Junior Graphic Designer Name Role Phone REYES THOM PCP Unavailable [...] [facility] REP (R) MEDICARE ADVANTAGE [facility] ([facility]) Nov 09, 2017 [id number] [phone] SIMI COVARRUBIAS PATIENT [facility] REP (WNR) MEDICARE [facility] ([facility]) Nov 09, 2017 [id number] [phone] SIMI COVARRUBIAS PATIENT [employer] [facility] ([facility]) MEDICARE ADVANTAGE [facility] ([facility]) Nov 09, [phone] [id number] SIMI COVARRUBIAS PATIENT Selected Encounter This section includes the information on record at [place] for the Encounter. Date/Time Encounter Type Encounter Description Reason Provider Source Dec 24, 2019 01:29 PM Outpatient Encounter COMMUNITY CARE CONSULT [facility], [facility] 15 IHE Encounter Template Text not used by [place] Assessments - Encounter Diagnoses No Data Provided for This Section Plan of Treatment: Future Appointments (+ 6 months) and Future Tests (+/- 45 day s) The Plan of Treatment section includes future care activities for the patient fr om all [place] treatment facilities. This section includes future appointments and fu ture orders which are active, pending or scheduled. Future Appointments This section includes appointments that were scheduled t o occur 6 months from the date of the Encounter, up to a maximum of 20 appointme nts. The data comes from all [place] treatment facilities. Appointment Date/Time Appointment Type Appointment Facili ty Name Jan 12, 2020 10:00 AM AMBULATORY - NONE [facility] Jan 26, 2020 03:00 PM AMBULATORY - NONE [facility] Feb 29, 2020 02:30 PM AMBULATORY - NONE [facility] March 20, 2020 08:00 AM AMBULATORY - MEDICINE [facility] March 28, 2020 11:30 AM AMBULATORY - NONE [facility] Apr 19, 2020 11:00 AM AMBULATORY - NONE [facility] Apr 26, 2020 10:45 AM AMBULATORY - NONE [facility], [facility] 15 Surgical Procedures: All associated to the encounter No Data Provided for This Section Lab Results: +/- 30 days of the encounter This section includes the Chemistry and Hematology Lab R esults on record with [place] for the patient. Radiology Reports and Pathology Report s are provided separately, in subsequent sections. Lab Results This section contains the Chemistry/Hematology Results anushka t were resulted 30 days before or 30 days after the date of the Encounter. Date/Time Source Result Type Result - Unit Interpretation Reference Range Comment Dec 01, 2019 11:09 AM [facility] CBC & DIFF Specimen Type: BLOOD [...] 0.5 % Dec 01, 2019 11:09 AM [facility] RENAL FUNCTION PANEL Specimen Type: PLASMA [...] EGFR 46.5 Dec 01, 2019 11:09 AM [facility] URINALYSIS Specimen Type: URINE No comment [...] RBC/HPF 0-2 Dec 01, 2019 11:09 AM [facility] MAGNESIUM (mg/dL) Specimen Type: PLASMA No comment entered. MAGNESIUM (mg/dL) 2.4 mg/dl 1.6-2.6 Dec 01, 2019 11:09 AM [facility] HEPATIC FUNCTION PANE L Specimen Type: PLASMA No comment entered. PROTEIN,TOTAL 7.2 g/dL 6.0-8.6 ALBUMIN 4.5 g/dl 3.4-5.0 TOTAL BILIRUBIN 0.7 mg/dL 0.2-1.2 DIRECT BILIRUBIN 0.30 mg/dL 0-0.5 ASPARTATE TRANSAMINASE 29 U/L 5-34 ALANINE AMINOTRANSFERASE 20 U/L 8-40 ALKALINE PHOSPHATASE 98 U/L 40-150 Dec 01, 2019 11:09 AM [facility] MICROALBUMIN (CO,EK) Specimen Type: URINE No comment entered. *MICROALBUMIN(CONC) 116.8 mg/dL - *MICROALBUMIN(SPOT) 651.8 mcg/mg cr HH 0-29 *CREATININE mg/dL 179.2 mg/dl Not Avail. Dec 01, 2019 11:09 AM [facility] COMPREHENSIVE METABOL IC PANEL Specimen Type: [...] EGFR 46.5 Dec 01, 2019 11:09 AM [facility] TRAMADOL SCRN W/REFLE X,URINE Specimen Type: URINE Comment: normalcy status - Abnormal Tramadol Screen This test was performed using a forensic kit that is intended for the qualitative and semi- quantitative determination of Tramadol in human urine and has not been cleared or approved by the FDA for diagnostic purposes. The analytical performance characteristics of this test have been determined by [facility]. This test should not be used for diagnosis without confirmation by other, more specific, confirmatory analytical methodologies. Test performed by [facility] [address] [place] [phone] Paraprofessional Interpreter: Baron Domingo M.D.,Ph.D. Test Reported by [facility], [facility], [address] [place] [facility], [place] Lawrence Mckeon M.D., Ph.D., Director of Laboratories , CLIA [id number] O-Desmethyltramadol This test was developed and its analytical performance characteristics have been determined by [facility] Rosi. It has not been cleared or approved by the US Food and Drug Administration. This assay has been validated pursuant to the CLIA regulations and is used for clinical purposes. *TRAMADOL SCREEN, URINE Positive Negati ve *TRAMADOL QUANT, URINE > 5000 ng/mL H < 10 0 *DESMETHYLTRAMADOL, URINE >5000 ng/mL H < 100 Dec 01, 2019 11:09 AM [facility] DRUGS OF ABUSE SCREEN Specimen Type: URINE No comment entered. AMPHETAMINE NEG Negative BARBITURATES NEG Negative BENZODIAZEPINES NEG Negative CANNABINOIDS NEG Negative COCAINE NEG Negative OPIATES NEG Negative PHENCYCLIDINE(PCP) NEG Negative *CREATININE,DRUG SCR 177.22 mg/dL METHADONE(UDS) NEG Negative OXYCODONE (URINE) NEG Negative ALCOHOL-URINE,RANDOM (SOSA,WI,EK) NEG mg/dL <10 Dec 01, 2019 11:09 AM [facility] URINALYSIS Specimen Type: URINE No comment [...] WBC/HPF 0-5 *UR RBC 0-2 RBC/HPF 0-2 Vital Signs: All taken on the encounter [...] patient. The data comes from a ll [place] treatment facilities. It does not list Allergies/ADRs that were removed or entered in error. Some allergies/ADRs may be reported in t he Immunization section. Allergen Event Date Event Type Reaction(s) Severity Source LISINOPRIL Dec 01, 2017 Propensity to adverse reactions to drug (disorder) Renal impairment [facility] 15 METFORMIN Dec 01, 2017 Propensity to adverse reactions to drug (disorder) Renal impairment [facility] 15 Medications: VA dispensed (-15 months) and Non-VA Documented (Obtained Outside V A) Section Date Range: 1) prescriptions processed by a [facility] pharmacy in the last [facility], and 2) all medications recorded in the [place] medical record as "non-VA medic ations". Pharmacy terms refer to [place] pharmacy's work on prescriptions. VA patient s are advised to take their medications as instructed by their health care team. The data comes from all [place] treatment facilities. Glossary of Pharmacy Terms:Active = A prescription that can be filled at the local [place] pharmacy.Active: On Hold = An active prescription that will not be filled until pharmacy resolves the issue.Active: Susp = An active prescription that is not scheduled to be filled yet.Clinic Order = A medication received during a visit to a [place] clinic or emergency department (currently not available).Discontinued [...] TIMES A DAY 400 Sep 12, 2020 [id number] Feb 29, 2020 BALTRUSAELEUTERIO QUIGLEY [facility] ACCU-CHEK ROSINA PLUS (GLUCOSE) TEST STRIP Discontinued USE 1 STRIP FOR TESTING FOUR TIMES A DAY 400 Sep 15, 2019 [id number] Jun 13, 2019 BALTRUSAIT ISELEUTERIO [facility] ALCOHOL PREP PAD Discontinued USE 1 PAD ON SKIN FOUR TIMES A DAY 40 0 Apr 25, 2020 [id number] Nov 29, 2019 BALTRUSAITISELEUTERIO [facility] ALCOHOL PREP PAD Discontinued USE 1 PAD ON SKIN FOUR TIMES A DAY 40 0 Sep 15, 2019 [id number] Apr 18, 2019 BALTRUSAELEUTERIO QUIGLEY [facility] ALLOPURINOL 100MG TAB Active TAKE ONE TABLET BY MOUTH ONCE A DAY FOR GOUT. TAKE WITH PLENTY OF WATER 90 Sep 23, 2020 [id number] Mar 05, 2020 SILVINA CHAMBERS [facility] ALLOPURINOL 100MG TAB Discontinued TAKE ONE TABLET BY MOUTH ONCE A DAY FOR GOUT. TAKE WITH PLENTY OF WATER 90 Dec 30, 2019 [id number] Sep 17, 2019 THOM SHARPE [facility] ALOGLIPTIN 12.5MG TAB Active TAKE ONE TABLET BY MOUTH O NCE A DAY FOR DIABETES 90 Sep 12, 2020 [id number] Mar 04, 2020 ELEUTERIO LIVINGSTON ZAK COBB [facility] [facility] ALOGLIPTIN 12.5MG TAB Discontinued TAKE ONE TABLET BY MOUTH ONCE A DAY FOR DIABETES 90 Dec 22, 2019 [id number] Jun 18, 2019 BALTRELEUTERIO ROJAS [facility] AMLODIPINE BESYLATE 10MG TAB Discontinued TAKE ONE TA BLET BY MOUTH EVERY MORNING FOR HEART/BLOOD PRESSURE 90 Jun 10, 2019 [id number] Feb 25, 2019 MONIKA HAMMER [facility] AMLODIPINE BESYLATE 10MG TAB TAKE ONE TA BLET BY MOUTH EVERY MORNING FOR HEART/BLOOD PRESSURE 90 Apr 12, 2020 [id number] Feb 10, 2020 SILVINA CHAMBERS [facility] ASPIRIN 81MG TAB,CHEWABLE Non-VA CHEW ONE TABLET BY MOUTH ONCE A DAY Non-VA Documented by: MEGAN HAWK nted at: [facility] ATORVASTATIN CA 20MG TAB Active TAKE ONE TABLET BY MOUTH ONCE A DAY FOR CHOLESTEROL. REPORT ANY UNEXPLAINED MUSCLE PAIN OR WEAKNESS TO YOUR DOCTOR. 90 Jan 02, 2021 [id number] March 24, 2020 NELLA GROVE [facility], [place] 15 ATORVASTATIN CA 40MG TAB Discontinued TAKE ONE-HALF T ABLET BY MOUTH AT BEDTIME FOR CHOLESTEROL. REPORT ANY UNEXPLAINED MUSCLE PAIN OR WEAKNESS TO YOUR DOCTOR. 45 Jul 15, 2020 [id number] Oct 14, 2019 [facility] ATORVASTATIN CA 40MG TAB Discontinued TAKE ONE-HALF T ABLET BY MOUTH AT BEDTIME FOR CHOLESTEROL. REPORT ANY UNEXPLAINED MUSCLE PAIN OR WEAKNESS TO YOUR DOCTOR. 45 Oct 12, 2019 [id number] Jul 16, 2019 [facility] CALCIUM CARBONATE 500MG TAB,CHEWABLE Non-VA CHEW ONE TABLET BY MOUTH PRN Non-VA Documented by: THOM CHAMBERS nted at: [facility] CHLORTHALIDONE 25MG TAB Active TAKE ONE TABLET BY MOUTH ONCE A DAY 90 Jul 01, 2020 [id number] March 19, 2020 MONIKA HAMMER [facility] CHLORTHALIDONE 25MG TAB Discontinued TAKE ONE TABLET BY MOUTH ONCE A DAY 90 Jun 16, 2019 [id number] Apr 12, 2019 MONIKA HAMMER [facility] [facility] CHOLECALCIFEROL 1000UNT TAB Non-VA TAKE ONE TABLET BY MOUTH EVERY OTHER DAY Non-VA Docume nted by: MEGAN HAWK Docume nted at: [facility] CYANOCOBALAMIN 1000MCG/ML INJ Active INJECT 100 0 MCG (1 ML) INTRAMUSCULARLY EVERY MONTH FOR B12 SUPPLEMENTATION. 3 Nov 03, 2020 [id number] Apr 23, 2020 THOM CHAMBERS [facility] CYANOCOBALAMIN 1000MCG/ML INJ Discontinued INJECT 100 0 MCG (1 ML) INTRAMUSCULARLY EVERY MONTH FOR B12 SUPPLEMENTATION. 3 Nov 17 0 [id number] Aug 07, 2019 THOM CHAMBERS [facility] DIPHENHYDRAMINE HCL 25MG CAP Non-VA TAKE 1 CAPSULE BY MOUTH PRN Non-VA Documented by: THOM CHAMBERS nted at: [facility] DOCUSATE NA 100MG CAP No n-VA TAKE 2 CAPSULES BY MOUTH ONCE A DAY Non-VA Documented by: THOM CHAMBERS nted at: [facility] FISH OIL 1000MG (500MG DHA/EPA) CAP,ORAL Non-VA TAKE 1 CAPSULE BY MOUTH ONCE A DAY Non-VA Documented by: MEGAN HAWK nted at: [facility] GABAPENTIN 100MG CAP Active TAKE 1 CAPSULE BY M OUTH EVERY MORNING AND TAKE 1 CAPSULE BY MOUTH AT NOON AND TAKE 2 CAPSULES BY MOUTH AT BEDTIME 360 Jul 06, 2020 [id number] March 31, 2020 ELEUTERIO LIVINGSTON [facility] [place] [facility] GLUCAGON 1MG/GABRIELLA INJ,EMERGENCY KIT INJEC T 1MG SUBCUTANEOUSLY NEEDED FOR SEVERE HYPOGLYCEMIA 1 Nov 30, 2019 [id number] Nov 03, 2019 REYES THOM [facility] INSULIN,ASPART,HUMAN 100U/ML,NOVOLOG,FLEXPEN,3ML Active: On Hold INJECT 20 UNITS SUBCUTANEOUSLY BEFORE BREAKFAST AND INJECT 20 UNITS BEFORE LUNCH AND INJECT 26 UNITS BEFORE SUPPER AND INJECT 24 UNITS SNACK FOR BLOOD SUGAR CONTROL. ADMINISTER 10 MINUTES BEFORE FOOD DIRECTED. REFRIGERATE UN-OPENED PENS. DISCARD CARTRIDGE 28 DAYS AFTER OPENING. PLUS CORRECTION Mar 01, 2021 [id number] ELEUTERIO LIVINGSTON [facility] INSULIN,ASPART,HUMAN 100U/ML,NOVOLOG,FLEXPEN,3ML Discontinue d INJECT 20 UNITS SUBCUTANEOUSLY BEFORE BREAKFAST AND INJECT 20 UNITS BEFORE LUNCH AND INJECT 24 UNITS BEFORE SUPPER AND INJECT 24 UNITS SNACK FOR BLOOD SUGAR CONTROL. ADMINISTER 10 MINUTES BEFORE FOOD DIRECTED. REFRIGERATE UN-OPENED PENS. DISCARD CARTRIDGE 28 DAYS AFTER OPENING. PLUS CORRECTION 30 Jan 26, 2021 [id number] Jan 28, 2020 ELEUTERIO LIVINGSTON [facility] INSULIN,ASPART,HUMAN 100U/ML,NOVOLOG,FLEXPEN,3ML Discontinue d INJECT 20 UNITS SUBCUTANEOUSLY BEFORE MEALS FOR BLOOD SUGAR CONTROL. ADMINISTER 10 MINUTES BEFORE FOOD DIRECTED. REFRIGERATE UN-OPENED PENS. DISCARD CARTRIDGE 28 DAYS AFTER OPENING. PLUS CORRECTION FOR BLOOD SUGAR CONTROL. ADMINISTER 10 MINUTES BEFORE FOOD DIRECTED. REFRIGERATE UN-OPENED PENS. DISCARD CARTRIDGE 28 DAYS AFTER OPENING. PLUS CORRECTION 30 Nov 16, 2020 [id number] Nov 16 ELEUTERIO LIVINGSTON [facility] INSULIN,ASPART,HUMAN 100U/ML,NOVOLOG,FLEXPEN,3ML Discontinue d INJECT 15 UNITS SUBCUTANEOUSLY EVERY MORNING BEFORE MEAL AND INJECT 15 UNITS WITH LUNCH AND INJECT 15 UNITS WITH SUPPER AND INJECT 20 UNITS WITH SNACK FOR BLOOD SUGAR CONTROL. ADMINISTER 10 MINUTES BEFORE FOOD DIRECTED. REFRIGERATE UN-OPENED PENS. DISCARD CARTRIDGE 28 DAYS AFTER OPENING. Dec 22, 2019 [id number] Oct 12, 2019 ELEUTERIO LIVINGSTON [facility] INSULIN,GLARGINE,HUMAN 100 UNIT/ML INJ,SOLOSTAR,3ML Active INJECT 50 UNITS SUBCUTANEOUSLY EVERY MORNING FOR BLOOD SUGAR CONTROL. ADMINISTER AT SAME TIME EACH DAY DIRECTED. DISCARD ANY OPEN CARTRIDGE AFTER 28 DAYS. Sep 23, 2020 [id number] Jan 28, 2020 ELEUTERIO LIVINGSTON [facility] INSULIN,GLARGINE,HUMAN 100 UNIT/ML INJ,SOLOSTAR,3ML Disconti nued INJECT 45 UNITS SUBCUTANEOUSLY EVERY MORNING FOR BLOOD SUGAR CONTROL. ADMINISTER AT SAME TIME EACH DAY DIRECTED. DISCARD ANY OPEN CARTRIDGE AFTER 28 DAYS. Oct 23, 2019 [id number] Aug 30, 2019 ELEUTERIO LIVINGSTON [facility] LACTOBACILLUS ACIDOPHILUS TAB,CHEWABLE Non-VA CHEW ONE TABLET BY MOUTH ONCE A DAY Non-VA Documented by: MEGAN HAWK at: [facility] LANCET,SOFTCLIX Active USE LANCET 5 TIME S A DAY FOR TESTING BLOOD GLUCOSE DIRECTED 500 Dec 28, 2020 [id number] March 19, 2020 LYNDATRUSAELEUTERIO QUIGLEY [facility] LANCET,SOFTCLIX Discontinued USE LANCET 5 TIME S A DAY FOR TESTING BLOOD GLUCOSE DIRECTED 500 Jan 11, 2020 [id number] Sep 29, 2019 LYNDATRMARVIN IT[facility]UTERIO [facility] MAGNESIUM OXIDE 400MG TAB Non-VA TAKE ONE TABLET BY MOUTH ONCE A DAY Non-VA Documented by: MEGAN HAWK at: [facility] METOPROLOL SUCCINATE 200MG TAB,SA TAKE O NE-HALF TABLET BY MOUTH EVERY EVENING FOR HEART/BLOOD PRESSURE. SWALLOW WHOLE, DO NOT CRUSH OR CHEW (TABLETS MAY BE CUT IN HALF). 45 March 18, 2020 [id number] Dec 28, 2019 STANISLAV HAMMER [place] [facility] NEEDLE 22G 1.5IN USE NEEDLE FOR EVERY MONTH 1 Nov 12, 2019 [id number] Feb 07, 2019 ADELAIDA CLIFFORD [facility] NEEDLE,PEN 31G,5MM Discontinued USE NEEDLE SUBCUTANE OUSLY 5 TIMES A DAY - THIS IS A SINGLE USE NEEDLE AND SHOULD BE DISCARDED AFTER USE 500 Dec 21, 2019 [id number] Sep 28, 2019 BALTRUSAITIS,ELEUTERIO Larry [facility] POTASSIUM CHLORIDE 10MEQ TAB,SA Active TAKE TWO TABLETS BY MOUTH TWO TIMES A DAY FOR POTASSIUM SUPPLEMENTATIONTAKE WITH FOOD 360 Dec 12, 2020 [id number] Mar 02, 2020 [facility] POTASSIUM CHLORIDE 10MEQ TAB,SA Discontinued TAKE ONE TABLET BY MOUTH THREE TIMES A DAY WITH MEALS FOR POTASSIUM SUPPLEMENTATIONTAKE WITH FOOD 180 March 16, 2020 [id number] Nov 29, 2019 BALTRUSAITIS,ELEUTERIO L [facility] [place] [facility] POTASSIUM CHLORIDE 10MEQ TAB,SA Discontinued TAKE ONE TABLET BY MOUTH THREE TIMES A DAY WITH MEALS FOR POTASSIUM SUPPLEMENTATIONTAKE WITH FOOD 180 May 26, 2019 [id number] Jan 24, 2019 [facility] [place] [facility] SYRINGE 2.5-3ML/NDL 25G 1IN Active USE 1 SYRINGE EVERY MONTH 3 Feb 21, 2021 [id number] March 20, 2020 [facility] SYRINGE 2.5-3ML/NDL 25G 1IN Discontinued USE 1 SYRINGE EVERY Thu 3 March 18, 2020 [id number] Dec 21, 2019 [facility] TESTOSTERONE CYPIONATE 200MG/ML INJ,1ML (IN OIL) Active INJECT 200 MG (1 ML) INTRAMUSCULARLY EVERY MONTH FOR HORMONE REPLACEMENT 1 May 18, 2020 [id number] April 06, 2020 ADELAIDA CLIFFORD [facility] TESTOSTERONE CYPIONATE 200MG/ML INJ,1ML (IN OIL) Discontinue d INJECT 200 MG (1 ML) INTRAMUSCULARLY EVERY MONTH FOR HORMONE REPLACEMENT March 25, 2020 [id number] Oct 25, 2019 ADELAIDA CLIFFORD [facility] TESTOSTERONE CYPIONATE 200MG/ML INJ,1ML (IN OIL) Discontinue d INJECT 200 MG (1 ML) INTRAMUSCULARLY EVERY MONTH FOR HORMONE REPLACEMENT 1 Nov 06, 2019 [id number] Sep 25, 2019 ADELAIDA CLIFFORD [facility] TESTOSTERONE CYPIONATE 200MG/ML INJ,1ML (IN OIL) Discontinue d INJECT 200 MG (1 ML) INTRAMUSCULARLY EVERY MONTH FOR HORMONE REPLACEMENT 1 May 14, 2019 [id number] Apr 10, 2019 ADELAIDA CLIFFORD [facility] TRAMADOL HCL 50MG TAB Active TAKE 1 TO 2 TABLET S BY MOUTH EVERY 6 HOURS NEEDED FOR PAIN 180 Jul 21, 2020 [id number] March 30, 2020 [facility] TRAMADOL HCL 50MG TAB Discontinued TAKE 1 TO 2 TABLET S BY MOUTH EVERY 6 HOURS NEEDED FOR PAIN 180 Jun 06, 2020 [id number] Jan 11, 2020 [facility] TRAMADOL HCL 50MG TAB Discontinued TAKE 1 TO 2 TABLET S BY MOUTH EVERY 6 HOURS NEEDED FOR PAIN 180 Jun 06, 2020 [id number] Dec 06, 2019 [facility] 15 TRAMADOL HCL 50MG TAB Discontinued TAKE 1 TO 2 TABLET S BY MOUTH EVERY 6 HOURS NEEDED FOR PAIN 180 Dec 14, 2019 [id number] Nov 15, [address] [facility] [place] [facility] TRAMADOL HCL 50MG TAB Discontinued TAKE 1 TO 2 TABLET S BY MOUTH EVERY 6 HOURS NEEDED FOR PAIN 180 Jul 06, 2019 [id number] May 26, 2019 [facility] [place] [facility] TRIAMCINOLONE ACETONIDE 0.5% CREAM,TOP Active A PPLY SPARINGLY TO AFFECTED AREA ONCE A DAY NEEDED FOR RASH 45 Jul 15, 2020 [id number] April 01 0 REYESTERRIEA [facility] TRIAMCINOLONE ACETONIDE 0.5% CREAM,TOP Discontinued A PPLY SPARINGLY TO AFFECTED AREA ONCE A DAY NEEDED FOR RASH 45 Oct 12, 2019 [id number] Jul REYESTHOM [facility] Problems (Conditions): All historical and current Section Date Range: From patient's date of to the date document was create d. This section includes a list of Problems (Conditions) know n to [place] for the patient. It includes both active and inacti ve problems (conditions). The data comes from all [place] treatment facilities. Problem Status Problem Code Date of Onset Date of Resolution Comm ent(s) Provider Source Basal cell carcinoma of scalp Active [id number] THOM CHAMBERS [facility] Chronic back pain Active [id number] [facility] Chronic kidney disease stage 3 Active [id number] [facility] [place] [facility] Constipation Active [id number] THOM CHAMBERS DEEJAY [facility] [facility] Diabetes mellitus Active 75562165 THOM CHAMBERS [facility] [place] [facility] Diabetic neuropathy Active 544562147 Neha CHAMBERS RIAZ [facility] [place] [facility] Essential hypertension Active 10659925 THOM [facility] [place] [facility] Hyperlipidemia Active 20403499 REYESTERRIE GREGORYA JEFF ROSS [facility] [place] [facility] Hypogonadism Active 99006444 THOM CHAMBERS [facility] [place] [facility] Sleep apnea Active 70607301 REYESTHOM GREGORY [facility] [place] [facility] [place] [facility] Radiology Reports: +/- 30 days of the encounter No Data Provided for This Section Pathology Reports: +/- 30 days of the encounter No Data Provided for This Section Encounter Notes: All associated encounter notes This section contains the clinical notes associated to the Encounter. Date/Time Encounter Note(s) Provider Source Dec 24, 2019 01:29 PM NONVA NOTE: LOCAL TITLE: COMMUNITY CARE-SCHEDULING STANDARD TITLE: NONVA NOTE DATE OF NOTE: DEC 24, 2019@13:29 ENTRY DATE: DEC 24, 2019@13:29:50 AUTHOR: MARIO DUMONT EXP COSIGNER: URGENCY: STATUS: COMPLETED Patient Centered Community Care (PC3) Program Department of [facility] Choice Approval for Medical Care VA-Form [id number] Certain protected health information (PHI) may be enclosed; specifically information related to Drug Abuse, Alcoholism or Alcohol Abuse, Sickle Cell Anemia, and Human Immunodeficiency Virus (HIV). This specific PHI may NOT be re-disclosed or used by the recipient person or office for any purpose other than that for which the disclosure was made. [Ref. 38 [facility] 7332(b)(2)(H)(ii)] The information is b eing disclosed by VA only for the treatment and care of the named patient in the health record. Accounting of disclosure must be maintained when required. Referral Urgency: Routine Indicate time frame for appointment: Clinically Indicated Date (WESTLEY): Oct Category of Care/Type of Specialty: CARDIOLOGY Type of Specialist: drop man Type of Service/Procedure: Type of Service: Evaluation and Treatment Cardiology to eval and treat findings of decreased circulation lower extremities bilat. Noted by Non-VA Airline Hostess, who recommended Cardiology eval. AXEL. Requesting consult with Dr Xiao, [place], [place]. Other: best medical interest, mileage, continuity Chief Complaint: decreased peripheral pulses on Podiatry exam Patient History / Clinical Findings / Diagnosis (Co-Morbidities): diabetes, decreased peripheral pulses Third Republican Liability: [facility] - [facility] Office of Community Care [facility] Office of [facility] - Standardized Episode of Care CARDIOLOGY IMAGING - Cardiology Comprehensive [facility] ID: [id number] [email or web address] Description: This authorization covers services associated with all medical care listed below as clinically indicated. Duration: 180 days Procedural Overview 1. Initial outpatient evaluation and treatment for the referred condition 2. Diagnostic imaging relevant to the referred condition on the consult 3. Diagnostic studies relevant to the referred condition on the consult 4. Labs and pathology relevant to the referred condition on the consult 5. One cardiac catheterization with PCI interventions and overnight observation if required 6. Pre-procedure medical and cardiac clearance as indicated, to include H +P/labs, EKG, CXR 7. Anesthesia consultation related to the procedure 8. Procedures to include A-fib ablations, implantation of cardiac devices and emergent or urgent surgical interventions such as: cardiac bypass, TAVR, LVAD, angioplasty 9. Inpatient emergent admission post-catheterization for medical/surgical procedure (e.g. CABG) if required including necessary follow up visits in the global period. VA notification is required if emergent procedure is necessary. Please contact your local Community Care office within 72 hours who initiated the outpatient referral so that the appropriate notification can be made on behalf of the [place] 10. Follow-up visits for this episode of care 11. Cardiac rehabilitation, up to 36 visits, no more than 3x per week *Please visit the [facility] Storefront [email or web address].gov/[email or web address]/[email or web address]/index.asp for additional resources and requirements pertaining to the following * Pharmacy prescribing requirements * Durable Medical Equipment (DME), Prosthetics, and Orthotics prescribing requirements * Precertification (PRCT) process requirements * Request for Services (RFS) requirements SEE Number of Visits, Frequency, and Duration: Duration: 180 days or [facility] Preferred Provider Name and Contact Information: Cardiology to eval and treat findings of decreased circulation lower extremities bilat. Noted by Non-VA Airline Hostess, who recommended Cardiology eval. AXEL. Requesting consult with Dr Xiao [place], [place]. Eligibility Verification: As the authorized VA freight representative, I hereby confirm that the [place] is eligible for Community Care services. The 's basic eligibility was verified on Dec. Contact the Facility Community Care Office first to provide information to the VA or to reach a VA ordering provider. All contact from the contractor will be documented in the 's record by the facility [place] community Care and the VA provider will be notified for awareness. Report all Critical Findings related to this authorization to the issuing office below. All other questions regarding this authorization should be directed to: community care Facility: [facility] Office of Community Care (OCC) Contact:[phone] [facility] Office of Community Care (OCC) Speech Language Pathologist Travel or Equivalent: Name: Danisha Gamble Title: [place] Community Care Receiving Operator Contact Number (Normal Business Hours):[phone] AOD/Emergency Contact After Hours Number:[phone] From Station Number: [id number] Facility Name: [facility] [address] Address: [address] City: [place] State: [place] Zip: [address] [place] Information: Name: SIMI COVARRUBIAS : Nov SSN: [id number] Address: [address] [place], [place] [address] 's Alternate Phone: [place] Alternate Address: In accordance with 38 CFR 17.0258-6753, [place] will pay for non-VA hospital care and medical services that are authorized by [place] for Veterans who are determined by [place] to meet the Veterans Choice Program eligibility criteria set forth by section 101 of the Act and 38 CFR 17.1510 and any other eligibility standards that may apply to particular services (such as health care for newborns of Veterans under 38 CFR 17.38(a)(xiv) and dental benefits under 17.160-17.169). /noa/ [facility] Signed: 12/24/2019 13:31 [facility]IO D[facility]ONT [facility]
--- OUTSIDE RECORDS SUMMARY | 2020-04-18 09:40 | XMS REPORT | Encounter Summary ---
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 Date/Time Encounter Type Encounter Description Reason Provider Source Jan 12, 2020 12:00 AM Outpatient Encounter EVENT (HISTORICAL) [facility] 15 IHE Encounter Template Text not used by AR Assessments - Encounter Diagnoses No Data Provided for This Section Plan of Treatment: Future Appointments (+ 6 months) and Future Tests (+/- 45 day s) The Plan of Treatment section includes future care activities for the patient fr om all AR treatment facilities. This section includes future appointments and fu ture orders which are active, pending or scheduled. Future Appointments This section includes appointments that were scheduled t o occur 6 months from the date of the Encounter, up to a maximum of 20 appointme nts. The data comes from all [facility] treatment [facility]. Appointment Date/Time Appointment Type Appointment Facili ty Name Jan 26, 2020 03:00 PM AMBULATORY - NONE [facility] [place] [facility] Feb 29, 2020 02:30 PM AMBULATORY - NONE [facility] [place] [facility] March 20, 2020 08:00 AM AMBULATORY - MEDICINE [facility] March 28, 2020 11:30 AM AMBULATORY - NONE [facility] [place] [facility] Apr 19, 2020 11:00 AM AMBULATORY - NONE [facility] [place] [facility] Apr 26, 2020 10:45 AM AMBULATORY - NONE [facility], [place] 15 Surgical Procedures: All associated [...] patient. The data comes from a ll AR treatment facilities. It does not list Allergies/ADRs that were removed or entered in error. Some allergies/ADRs may be reported in t he Immunization section. Allergen Event Date Event Type Reaction(s) Severity Source LISINOPRIL Dec 01, 2017 Propensity to adverse reactions to drug (disorder) Renal impairment [facility] 15 METFORMIN Dec 01, 2017 Propensity to adverse reactions to drug (disorder) Renal impairment [facility] 15 Medications: VA dispensed (-15 months) and Non-VA Documented (Obtained Outside A) Section Date Range: 1) prescriptions processed by a AR pharmacy in the last 15 m ont, and 2) all medications recorded in the VA medical record as "non-VA medic ations". Pharmacy terms refer to VA pharmacy's work on prescriptions. VA patient s are advised to take their medications as instructed by their health care team. The data comes from all AR treatment facilities. Glossary of Pharmacy Terms:Active = A prescription that can be filled at the local AR pharmacy.Active: On Hold = An active prescription that will not be filled until pharmacy resolves the issue.Active: Susp = An active prescription that is not scheduled to be filled yet.Clinic Order = A medication received during a visit to a AR clinic or emergency department (currently not available).Discontinued [...] may be a prescription from either the AR or other providers that was filled outside the AR. Or, it may be an over the [...] TIMES A DAY 400 Sep 12, 2020 [id number] Feb 29, 2020 BALTRUSADANNELEUTERIO Laron [facility] ACCU-CHEK ROSINA PLUS (GLUCOSE) TEST STRIP Discontinued USE 1 STRIP FOR TESTING FOUR TIMES A DAY 400 Sep 15, 2019 [id number] Jun 13, 2019 BALTRUSAIT IS,ELEUTERIO Larry [facility] ALCOHOL PREP PAD Discontinued USE 1 PAD ON SKIN FOUR TIMES A DAY 40 0 Apr 25, 2020 [id number] Nov 29, 2019 BALTRUSAITISELEUTERIO [facility] [place] ALCOHOL PREP PAD Discontinued USE 1 PAD ON SKIN FOUR TIMES A DAY 40 0 Sep 15, 2019 [id number] Apr 18, [address] [facility] ALLOPURINOL 100MG TAB Active TAKE ONE TABLET BY MOUTH ONCE A DAY FOR GOUT. TAKE WITH PLENTY OF WATER 90 Sep 23, 2020 [id number] Mar 05, 2020 SILVINA CHAMBERS [facility] [place] ALLOPURINOL 100MG TAB Discontinued TAKE ONE TABLET BY MOUTH ONCE A DAY FOR GOUT. TAKE WITH PLENTY OF WATER 90 Dec 30, 2019 [id number] Sep 17, 2019 THOM SHARPE [facility] [place] [facility] ALOGLIPTIN 12.5MG TAB Active TAKE ONE TABLET BY MOUTH O NCE A DAY FOR DIABETES 90 Sep 12, 2020 [id number] Mar 04, 2020 BALTRUSAITIS,ELEUTERIO CRESPO [facility] [place] ALOGLIPTIN 12.5MG TAB Discontinued TAKE ONE TABLET BY MOUTH ONCE A DAY FOR DIABETES 90 Dec 22, 2019 [id number] Jun 18, 2019 BALTRUSAITIS,ELEUTERIO Larry [facility] [place] AMLODIPINE BESYLATE 10MG TAB Discontinued TAKE ONE TA BLET BY MOUTH EVERY MORNING FOR HEART/BLOOD PRESSURE 90 Jun 10, 2019 [id number] Feb 25, 2019 MONIKA HAMMER [facility] [place] AMLODIPINE BESYLATE 10MG TAB TAKE ONE TA BLET BY MOUTH EVERY MORNING FOR HEART/BLOOD PRESSURE 90 Apr 12, 2020 [id number] Feb 10, 2020 SILVINA CHAMBERS [facility] ASPIRIN 81MG TAB,CHEWABLE Non-VA CHEW ONE TABLET BY MOUTH ONCE A DAY Non-VA Documented by: MEGAN HAWK nted at: [facility] [place] ATORVASTATIN CA 20MG TAB Active TAKE ONE TABLET BY MOUTH ONCE A DAY FOR CHOLESTEROL. REPORT ANY UNEXPLAINED MUSCLE PAIN OR WEAKNESS TO YOUR DOCTOR. 90 Jan 02, 2021 [id number] March 24, 2020 [facility] [place] ATORVASTATIN CA 40MG TAB Discontinued TAKE ONE-HALF T ABLET BY MOUTH AT BEDTIME FOR CHOLESTEROL. REPORT ANY UNEXPLAINED MUSCLE PAIN OR WEAKNESS TO YOUR DOCTOR. 45 Jul 15, 2020 [id number] Oct 14, 2019 THOM CHAMBERS [facility] [place] ATORVASTATIN CA 40MG TAB Discontinued TAKE ONE-HALF T ABLET BY MOUTH AT BEDTIME FOR CHOLESTEROL. REPORT ANY UNEXPLAINED MUSCLE PAIN OR WEAKNESS TO YOUR DOCTOR. 45 Oct 12, 2019 [id number] Jul 16, 2019 THOM CHAMBERS [facility] [place] CALCIUM CARBONATE 500MG TAB,CHEWABLE Non-VA CHEW ONE TABLET BY MOUTH PRN Non-VA Documented by: THOM CHAMBERS nted at: [facility] CHLORTHALIDONE 25MG TAB Active TAKE ONE TABLET BY MOUTH ONCE A DAY 90 Jul 01, 2020 [id number] March 19, 2020 JAQUELINMONIKA Larry [facility] [place] CHLORTHALIDONE 25MG TAB Discontinued TAKE ONE TABLET BY MOUTH ONCE A DAY 90 Jun 16, 2019 [id number] Apr 12, 2019 JAQUELINMONIKA Larry [facility] [place] CHOLECALCIFEROL 1000UNT TAB Non-VA TAKE ONE TABLET BY MOUTH EVERY OTHER DAY Non-VA Docume nted by: MEGAN HAWK Docume nted at: [facility] [place] [facility] CYANOCOBALAMIN 1000MCG/ML INJ Active INJECT 100 0 MCG (1 ML) INTRAMUSCULARLY EVERY MONTH FOR B12 SUPPLEMENTATION. 3 Nov 03, 2020 [id number] Apr 23, 2020 THOM CHAMBERS [facility] [place] CYANOCOBALAMIN 1000MCG/ML INJ Discontinued INJECT 100 0 MCG (1 ML) INTRAMUSCULARLY EVERY MONTH FOR B12 SUPPLEMENTATION. 3 Nov 17 0 [id number] Aug 07, 2019 THOM CHAMBERS [facility] [place] DIPHENHYDRAMINE HCL 25MG CAP Non-VA TAKE 1 CAPSULE BY MOUTH PRN Non-VA Documented by: THOM CHAMBERS nted at: [facility] DOCUSATE NA 100MG CAP No n-VA TAKE 2 CAPSULES BY MOUTH ONCE A DAY Non-VA Documented by: THOM CHAMBERS nted at: [facility] FISH OIL 1000MG (500MG DHA/EPA) CAP,ORAL Non-VA TAKE 1 CAPSULE BY MOUTH ONCE A DAY Non-VA Documented by: MEGAN HAWK nted at: [facility] GABAPENTIN 100MG CAP Active TAKE 1 CAPSULE BY M OUTH EVERY MORNING AND TAKE 1 CAPSULE BY MOUTH AT NOON AND TAKE 2 CAPSULES BY MOUTH AT BEDTIME 360 Jul 06, 2020 [id number] March 31, 2020 BALTRELEUTERIO ROJAS [facility] [place] GLUCAGON 1MG/GABRIELLA INJ,EMERGENCY KIT INJEC T 1MG SUBCUTANEOUSLY NEEDED FOR SEVERE HYPOGLYCEMIA 1 Nov 30, 2019 [id number] Nov 03, 2019 THOM CHAMBERS [facility] [place] INSULIN,ASPART,HUMAN 100U/ML,NOVOLOG,FLEXPEN,3ML Active: On Hold INJECT 20 UNITS SUBCUTANEOUSLY BEFORE BREAKFAST AND INJECT 20 UNITS BEFORE LUNCH AND INJECT 26 UNITS BEFORE SUPPER AND INJECT 24 UNITS SNACK FOR BLOOD SUGAR CONTROL. ADMINISTER 10 MINUTES BEFORE FOOD DIRECTED. REFRIGERATE UN-OPENED PENS. DISCARD CARTRIDGE 28 DAYS AFTER OPENING. PLUS CORRECTION Mar 01, 2021 [id number] ELEUTERIO LIVINGSTON [facility] [place] INSULIN,ASPART,HUMAN 100U/ML,NOVOLOG,FLEXPEN,3ML Discontinue d INJECT 20 UNITS SUBCUTANEOUSLY BEFORE BREAKFAST AND INJECT 20 UNITS BEFORE LUNCH AND INJECT 24 UNITS BEFORE SUPPER AND INJECT 24 UNITS SNACK FOR BLOOD SUGAR CONTROL. ADMINISTER 10 MINUTES BEFORE FOOD DIRECTED. REFRIGERATE UN-OPENED PENS. DISCARD CARTRIDGE 28 DAYS AFTER OPENING. PLUS CORRECTION 30 Jan 26, 2021 [id number] Jan 28, 2020 [facility] [place] INSULIN,ASPART,HUMAN 100U/ML,NOVOLOG,FLEXPEN,3ML Discontinue d INJECT 20 UNITS SUBCUTANEOUSLY BEFORE MEALS FOR BLOOD SUGAR CONTROL. ADMINISTER 10 MINUTES BEFORE FOOD DIRECTED. REFRIGERATE UN-OPENED PENS. DISCARD CARTRIDGE 28 DAYS AFTER OPENING. PLUS CORRECTION FOR BLOOD SUGAR CONTROL. ADMINISTER 10 MINUTES BEFORE FOOD DIRECTED. REFRIGERATE UN-OPENED PENS. DISCARD CARTRIDGE 28 DAYS AFTER OPENING. PLUS CORRECTION Nov 16, 2020 [id number] Nov 16 [facility] [place] INSULIN,ASPART,HUMAN 100U/ML,NOVOLOG,FLEXPEN,3ML Discontinue d INJECT 15 UNITS SUBCUTANEOUSLY EVERY MORNING BEFORE MEAL AND INJECT 15 UNITS WITH LUNCH AND INJECT 15 UNITS WITH SUPPER AND INJECT 20 UNITS WITH SNACK FOR BLOOD SUGAR CONTROL. ADMINISTER 10 MINUTES BEFORE FOOD DIRECTED. REFRIGERATE UN-OPENED PENS. DISCARD CARTRIDGE 28 DAYS AFTER OPENING. Dec 22, 2019 [id number] Oct 12, 2019 [facility] [place] INSULIN,GLARGINE,HUMAN 100 UNIT/ML INJ,SOLOSTAR,3ML Active INJECT 50 UNITS SUBCUTANEOUSLY EVERY MORNING FOR BLOOD SUGAR CONTROL. ADMINISTER AT SAME TIME EACH DAY DIRECTED. DISCARD ANY OPEN CARTRIDGE AFTER 28 DAYS. Sep 23, 2020 [id number] Jan 28, 2020 [facility] [place] INSULIN,GLARGINE,HUMAN 100 UNIT/ML INJ,SOLOSTAR,3ML Disconti nued INJECT 45 UNITS SUBCUTANEOUSLY EVERY MORNING FOR BLOOD SUGAR CONTROL. ADMINISTER AT SAME TIME EACH DAY DIRECTED. DISCARD ANY OPEN CARTRIDGE AFTER 28 DAYS. 15 Oct 23, 2019 [id number] Aug 30, 2019 YAYADANNELEUTERIO Larry [facility] [place] LACTOBACILLUS ACIDOPHILUS TAB,CHEWABLE Non-VA CHEW ONE TABLET BY MOUTH ONCE A DAY Non-VA Documented by: MEGAN HAWK nted at: [facility] [place] LANCET,SOFTCLIX Active USE LANCET 5 TIME S A DAY FOR TESTING BLOOD GLUCOSE DIRECTED 500 Dec 28, 2020 [id number] March 19, 2020 ELEUTERIO [facility] [facility] [place] LANCET,SOFTCLIX Discontinued USE LANCET 5 TIME S A DAY FOR TESTING BLOOD GLUCOSE DIRECTED 500 Jan 11, 2020 [id number] Sep 29, 2019 YAYA QUIGLEYELEUTERIO Laron [facility] [place] MAGNESIUM OXIDE 400MG TAB Non-VA TAKE ONE TABLET BY MOUTH ONCE A DAY Non-VA Documented by: MEGAN HAWK nted at: [facility] [place] [facility] METOPROLOL SUCCINATE 200MG TAB,SA TAKE O NE-HALF TABLET BY MOUTH EVERY EVENING FOR HEART/BLOOD PRESSURE. SWALLOW WHOLE, DO NOT CRUSH OR CHEW (TABLETS MAY BE CUT IN HALF). 45 March 18, 2020 [id number] Dec 28, 2019 STANISLAV HAMMER [facility] NEEDLE 22G 1.5IN USE NEEDLE FOR EVERY MONTH 1 Nov 12, 2019 [id number] Feb 07, 2019 ADELAIDA CLIFFORD [facility] [place] NEEDLE,PEN 31G,5MM Discontinued USE NEEDLE SUBCUTANE OUSLY 5 TIMES A DAY - THIS IS A SINGLE USE NEEDLE AND SHOULD BE DISCARDED AFTER USE 500 Dec 21, 2019 [id number] Sep 28, 2019 ELEUTERIO [facility] [facility] [place] POTASSIUM CHLORIDE 10MEQ TAB,SA Active TAKE TWO TABLETS BY MOUTH TWO TIMES A DAY FOR POTASSIUM SUPPLEMENTATIONTAKE WITH FOOD 360 Dec 12, 2020 [id number] Mar 02, 2020 YANELY QUINTERO [facility] 15 POTASSIUM CHLORIDE 10MEQ TAB,SA Discontinued TAKE ONE TABLET BY MOUTH THREE TIMES A DAY WITH MEALS FOR POTASSIUM SUPPLEMENTATIONTAKE WITH FOOD 180 March 16, 2020 [id number] Nov 29, 2019 BALTRUSAITIS,ELEUTERIO [facility] [place] POTASSIUM CHLORIDE 10MEQ TAB,SA Discontinued TAKE ONE TABLET BY MOUTH THREE TIMES A DAY WITH MEALS FOR POTASSIUM SUPPLEMENTATIONTAKE WITH FOOD 180 May 26, 2019 [id number] Jan 24, 2019 INGRID,YANELY B [facility] [place] SYRINGE 2.5-3ML/NDL 25G 1IN Active USE 1 SYRINGE EVERY MONTH 3 Feb 21, 2021 [id number] March 20, 2020 [facility] SYRINGE 2.5-3ML/NDL 25G 1IN Discontinued USE 1 SYRINGE EVERY Thu 3 March 18, 2020 [id number] Dec 21, 2019 [facility] INIC TESTOSTERONE CYPIONATE 200MG/ML INJ,1ML (IN OIL) Active INJECT 200 MG (1 ML) INTRAMUSCULARLY EVERY MONTH FOR HORMONE REPLACEMENT 1 May 18, 2020 [id number] April 06, 2020 ADELAIDA CLIFFORD [facility] [place] TESTOSTERONE CYPIONATE 200MG/ML INJ,1ML (IN OIL) Discontinue d INJECT 200 MG (1 ML) INTRAMUSCULARLY EVERY MONTH FOR HORMONE REPLACEMENT 1 March 25, 2020 [id number] Oct 25, 2019 ADELAIDA CLIFFORD [facility] [place] TESTOSTERONE CYPIONATE 200MG/ML INJ,1ML (IN OIL) Discontinue d INJECT 200 MG (1 ML) INTRAMUSCULARLY EVERY MONTH FOR HORMONE REPLACEMENT 1 Nov 06, 2019 [id number] Sep 25, 2019 ADELAIDA CLIFFORD [facility] [place] TESTOSTERONE CYPIONATE 200MG/ML INJ,1ML (IN OIL) Discontinue d INJECT 200 MG (1 ML) INTRAMUSCULARLY EVERY MONTH FOR HORMONE REPLACEMENT 1 May 14, 2019 [id number] Apr 10, 2019 ADELAIDA CLIFFORD [facility] [place] TRAMADOL HCL 50MG TAB Active TAKE 1 TO 2 TABLET S BY MOUTH EVERY 6 HOURS NEEDED FOR PAIN 180 Jul 21, 2020 [id number] March 30, 2020 [facility] TRAMADOL HCL 50MG TAB Discontinued TAKE 1 TO 2 TABLET S BY MOUTH EVERY 6 HOURS NEEDED FOR PAIN 180 Jun 06, 2020 [id number] Jan 11, 2020 [facility] TRAMADOL HCL 50MG TAB Discontinued TAKE 1 TO 2 TABLET S BY MOUTH EVERY 6 HOURS NEEDED FOR PAIN 180 Jun 06, 2020 [id number] Dec 06, 2019 NELLA [facility], [place] 15 TRAMADOL HCL 50MG TAB Discontinued TAKE 1 TO 2 TABLET S BY MOUTH EVERY 6 HOURS NEEDED FOR PAIN 180 Dec 14, 2019 [id number] Nov 15, 2019 DANTE VALVERDE [facility] [place] TRAMADOL HCL 50MG TAB Discontinued TAKE 1 TO 2 TABLET S BY MOUTH EVERY 6 HOURS NEEDED FOR PAIN 180 Jul 06, 2019 [id number] May 26, 2019 NELLA GROVE [facility] [place] TRIAMCINOLONE ACETONIDE 0.5% CREAM,TOP Active A PPLY SPARINGLY TO AFFECTED AREA ONCE A DAY NEEDED FOR RASH 45 Jul 15, 2020 [id number] April 01 0 [facility] [place] TRIAMCINOLONE ACETONIDE 0.5% CREAM,TOP Discontinued A PPLY SPARINGLY TO AFFECTED AREA ONCE A DAY NEEDED FOR RASH 45 Oct 12, 2019 [id number] Jul [facility] [place] [facility] Problems (Conditions): All historical and current Section Date Range: From patient's date of to the date document was create d. This section includes a list of Problems (Conditions) know n to VA for the patient. It includes both active and inacti ve problems (conditions). The data comes from all [place] treatment facilities. Problem Status Problem Code Date of Onset Date of Resolution Comm ent(s) Provider Source Basal cell carcinoma of scalp Active [id number] [facility] [place] [facility] Chronic back pain Active [id number] [facility] [place] [facility] Chronic kidney disease stage 3 Active [id number] [facility] [place] Constipation Active [id number] [facility] [place] Diabetes mellitus Active 57503520 [facility] [place] Diabetic neuropathy Active [id number] Neha CHAMBERS [facility] [place] [facility] Essential hypertension Active [id number] [facility] [place] Hyperlipidemia Active [id number] THOM CHAMBERS [place] [facility] [place] Hypogonadism Active [id number] THOM CHAMBERS [place] [facility] Sleep apnea Active [id number] THOM CHAMBERS RN [facility] Radiology Reports: +/- 30 days of the encounter No Data Provided for This Section Pathology Reports: +/- 30 days of the encounter No Data Provided for This Section Encounter Notes: All associated encounter notes No Data Provided for This Section
--- OUTSIDE RECORDS SUMMARY | 2020-04-18 09:41 | XMS REPORT | Encounter Summary ---
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 Date/Time Encounter Type Encounter Description Reason Provider Source Dec 15, 2019 12:00 AM Outpatient Encounter EVENT (HISTORICAL) [facility] 15 IHE Encounter Template Text not used by [place] Assessments - Encounter Diagnoses No Data Provided for This Section Plan of Treatment: Future Appointments (+ 6 months) and Future Tests (+/- 45 day s) The Plan of Treatment section includes future care activities for the patient fr om all [place] treatment facilities. This section includes future appointments and fu ture orders which are active, pending or scheduled. Future Appointments This section includes appointments that were scheduled t o occur 6 months from the date of the Encounter, up to a maximum of 20 appointme nts. The data comes from all [place] treatment facilities. Appointment Date/Time Appointment Type Appointment Facili ty Name Jan 12, 2020 10:00 AM AMBULATORY - NONE [facility] Jan 26, 2020 03:00 PM AMBULATORY - NONE [facility] Feb 29, 2020 02:30 PM AMBULATORY - NONE [facility] March 20, 2020 08:00 AM AMBULATORY - MEDICINE [facility] March 28, 2020 11:30 AM AMBULATORY - NONE [facility] Apr 19, 2020 11:00 AM AMBULATORY - NONE [facility] Apr 26, 2020 10:45 AM AMBULATORY - NONE [facility] [place] [facility] Surgical Procedures: All associated to the encounter No Data Provided for This Section Lab Results: +/- 30 days of the encounter This section includes the Chemistry and Hematology Lab R esults on record with ND for the patient. Radiology Reports and Pathology Report s are provided separately, in subsequent sections. Lab Results This section contains the Chemistry/Hematology Results anushka t were resulted 30 days before or 30 days after the date of the Encounter. Date/Time Source Result Type Result - Unit Interpretation Reference Range Comment Dec 01, 2019 11:09 AM [facility] CBC & DIFF Specimen Type: [...] 0.5 % Dec 01, 2019 11:09 AM [facility] RENAL FUNCTION PANEL Specimen Type: [...] EGFR 46.5 Dec 01, 2019 11:09 AM [facility] URINALYSIS Specimen Type: URINE No [...] RBC/HPF 0-2 Dec 01, 2019 11:09 AM [facility] MAGNESIUM (mg/dL) Specimen Type: PLASMA No comment entered. MAGNESIUM (mg/dL) 2.4 mg/dl 1.6-2.6 Dec 01, 2019 11:09 AM [facility] HEPATIC FUNCTION PANE L Specimen Type: PLASMA No comment entered. PROTEIN,TOTAL 7.2 g/dL 6.0-8.6 ALBUMIN 4.5 g/dl 3.4-5.0 TOTAL BILIRUBIN 0.7 mg/dL 0.2-1.2 DIRECT BILIRUBIN 0.30 mg/dL 0-0.5 ASPARTATE TRANSAMINASE 29 U/L 5-34 ALANINE AMINOTRANSFERASE 20 U/L 8-40 ALKALINE PHOSPHATASE 98 U/L 40-150 Dec 01, 2019 11:09 AM [facility] MICROALBUMIN (CO,EK) Specimen Type: URINE No comment entered. *MICROALBUMIN(CONC) 116.8 mg/dL - *MICROALBUMIN(SPOT) 651.8 mcg/mg cr HH 0-29 *CREATININE mg/dL 179.2 mg/dl Not Avail. Dec 01, 2019 11:09 AM [facility] COMPREHENSIVE METABOL IC PANEL Specimen [...] EGFR 46.5 Dec 01, 2019 11:09 AM [facility] TRAMADOL SCRN W/REFLE X,URINE Specimen Type: URINE Comment: normalcy status - Abnormal Tramadol Screen This test was performed using a forensic kit that is intended for the qualitative and semi- quantitative determination of Tramadol in human urine and has not been cleared or approved by the FDA for diagnostic purposes. The analytical performance characteristics of this test have been determined by [facility]. This test should not be used for diagnosis without confirmation by other, more specific, confirmatory analytical methodologies. Test performed by [employer] [address] [place] [id number] Glove Wrapper: Baron Domingo M.D.,Ph.D. Test Reported by [facility], [facility], [address] [place], [place] Lawrence Mckeon M.D., Ph.D., Director of Laboratories , CLIA [id number] O-Desmethyltramadol This test was developed and its analytical performance characteristics have been determined by [facility]. It has not been cleared or approved by the US Food and Drug Administration. This assay has been validated pursuant to the CLIA regulations and is used for clinical purposes. *TRAMADOL SCREEN, URINE Positive Negati ve *TRAMADOL QUANT, URINE > 5000 ng/mL H < 10 0 *DESMETHYLTRAMADOL, URINE >5000 ng/mL H < 100 Dec 01, 2019 11:09 AM [facility] DRUGS OF ABUSE SCREEN Specimen Type: URINE No comment entered. AMPHETAMINE NEG Negative BARBITURATES NEG Negative BENZODIAZEPINES NEG Negative CANNABINOIDS NEG Negative COCAINE NEG Negative OPIATES NEG Negative PHENCYCLIDINE(PCP) NEG Negative *CREATININE,DRUG SCR 177.22 mg/dL METHADONE(UDS) NEG Negative OXYCODONE (URINE) NEG Negative ALCOHOL-URINE,RANDOM (SOSA,WI,EK) NEG mg/dL <10 Dec 01, 2019 11:09 AM [facility] URINALYSIS Specimen Type: URINE No [...] Adverse Reactions (ADR s) on record with [place] for the patient. The data comes from a ll [place] treatment facilities. It does not list Allergies/ADRs that were removed or entered in error. Some allergies/ADRs may be reported in t he Immunization section. Allergen Event Date Event Type Reaction(s) Severity Source LISINOPRIL Dec 01, 2017 Propensity to adverse reactions to drug (disorder) Renal impairment [facility] [place] METFORMIN Dec 01, 2017 Propensity to adverse reactions to drug (disorder) Renal impairment [facility] Medications: VA dispensed (-15 months) and Non-VA Documented (Obtained Outside V A) Section Date Range: 1) prescriptions processed by a VA pharmacy in the last 15 m [facility], and 2) all medications recorded in the [place] medical record as "non-VA medic ations". Pharmacy terms refer to [place] pharmacy's work on prescriptions. VA patient s are advised to take their medications as instructed by their health care team. The data comes from all [place] treatment facilities. Glossary of Pharmacy Terms:Active = A prescription that can be filled at the local [place] pharmacy.Active: On Hold = An active prescription that will not be filled until pharmacy resolves the issue.Active: Susp = An active prescription that is not scheduled to be filled yet.Clinic Order = A medication received during a visit to a [place] clinic or emergency department (currently not available).Discontinued [...] TIMES A DAY 400 Sep 12, 2020 [id number] Feb 29, 2020 BALTRUSAITISELEUTERIO [facility] ACCU-CHEK ROSINA PLUS (GLUCOSE) TEST STRIP Discontinued USE 1 STRIP FOR TESTING FOUR TIMES A DAY 400 Sep 15, 2019 [id number] Jun 13, 2019 BALTRUSAIT IS,ELEUTERIO Larry [facility] ALCOHOL PREP PAD Discontinued USE 1 PAD ON SKIN FOUR TIMES A DAY 40 0 Apr 25, 2020 [id number] Nov 29, 2019 BALTRUSAITISELEUTERIO [facility] ALCOHOL PREP PAD Discontinued USE 1 PAD ON SKIN FOUR TIMES A DAY 40 0 Sep 15, 2019 [id number] Apr 18, 2019 BALTRUSAITIS,ELEUTERIO Larry [facility] ALLOPURINOL 100MG TAB Active TAKE ONE TABLET BY MOUTH ONCE A DAY FOR GOUT. TAKE WITH PLENTY OF WATER 90 Sep 23, 2020 [id number] Mar 05, 2020 SILVINA CHAMBERS [facility] ALLOPURINOL 100MG TAB Discontinued TAKE ONE TABLET BY MOUTH ONCE A DAY FOR GOUT. TAKE WITH PLENTY OF WATER 90 Dec 30, 2019 [id number] Sep 17, 2019 THOM SHARPE [facility] ALOGLIPTIN 12.5MG TAB Active TAKE ONE TABLET BY MOUTH O NCE A DAY FOR DIABETES 90 Sep 12, 2020 [id number] Mar 04, 2020 ELEUTERIO LIVINGSTON ZAK [facility] [place] [facility] ALOGLIPTIN 12.5MG TAB Discontinued TAKE ONE TABLET BY MOUTH ONCE A DAY FOR DIABETES 90 Dec 22, 2019 [id number] Jun 18, 2019 BALELEUTERIO KONG [facility] AMLODIPINE BESYLATE 10MG TAB Discontinued TAKE ONE TA BLET BY MOUTH EVERY MORNING FOR HEART/BLOOD PRESSURE 90 Jun 10, 2019 [id number] Feb 25, 2019 MONIKA HAMMER [facility] AMLODIPINE BESYLATE 10MG TAB TAKE ONE TA BLET BY MOUTH EVERY MORNING FOR HEART/BLOOD PRESSURE 90 Apr 12, 2020 [id number] Feb 10, 2020 SILVINA CHAMBERS [facility] ASPIRIN 81MG TAB,CHEWABLE Non-VA CHEW ONE TABLET BY MOUTH ONCE A DAY Non-VA Documented by: MEGAN HAWK nted at: [facility] ATORVASTATIN CA 20MG TAB Active TAKE ONE TABLET BY MOUTH ONCE A DAY FOR CHOLESTEROL. REPORT ANY UNEXPLAINED MUSCLE PAIN OR WEAKNESS TO YOUR DOCTOR. 90 Jan 02, 2021 [id number] March 24, 2020 NELLA GROVE [facility] [place] [facility] ATORVASTATIN CA 40MG TAB Discontinued TAKE ONE-HALF T ABLET BY MOUTH AT BEDTIME FOR CHOLESTEROL. REPORT ANY UNEXPLAINED MUSCLE PAIN OR WEAKNESS TO YOUR DOCTOR. 45 Jul 15, 2020 [id number] Oct 14, 2019 [facility] ATORVASTATIN CA 40MG TAB Discontinued TAKE ONE-HALF T ABLET BY MOUTH AT BEDTIME FOR CHOLESTEROL. REPORT ANY UNEXPLAINED MUSCLE PAIN OR WEAKNESS TO YOUR DOCTOR. 45 Oct 12, 2019 [id number] Jul 16, 2019 [facility] CALCIUM CARBONATE 500MG TAB,CHEWABLE Non-VA CHEW ONE TABLET BY MOUTH PRN Non-VA Documented by: THOM CHAMBERS nted at: [facility] CHLORTHALIDONE 25MG TAB Active TAKE ONE TABLET BY MOUTH ONCE A DAY 90 Jul 01, 2020 [id number] March 19, 2020 MONIKA HAMMER [facility] CHLORTHALIDONE 25MG TAB Discontinued TAKE ONE TABLET BY MOUTH ONCE A DAY 90 Jun 16, 2019 [id number] Apr 12, 2019 MONIKA HAMMER [facility] CHOLECALCIFEROL 1000UNT TAB Non-VA TAKE ONE TABLET BY MOUTH EVERY OTHER DAY Non-VA Docume nted by: MEGAN HAWK Docume nted at: [facility] CYANOCOBALAMIN 1000MCG/ML INJ Active INJECT 100 0 MCG (1 ML) INTRAMUSCULARLY EVERY MONTH FOR B12 SUPPLEMENTATION. 3 Nov 03, 2020 [id number] Apr 23, 2020 THOM CHAMBERS [facility] CYANOCOBALAMIN 1000MCG/ML INJ Discontinued INJECT 100 0 MCG (1 ML) INTRAMUSCULARLY EVERY MONTH FOR B12 SUPPLEMENTATION. 3 Nov 17 0 [id number] Aug 07, 2019 THOM CHAMBERS [facility] DIPHENHYDRAMINE HCL 25MG CAP Non-VA TAKE 1 CAPSULE BY MOUTH PRN Non-VA Documented by: THOM CHAMBERS nted at: [facility] DOCUSATE NA 100MG CAP No n-VA TAKE 2 CAPSULES BY MOUTH ONCE A DAY Non-VA Documented by: THOM CHAMBERS nted at: [facility] FISH OIL 1000MG (500MG DHA/EPA) CAP,ORAL Non-VA TAKE 1 CAPSULE BY MOUTH ONCE A DAY Non-VA Documented by: MEGAN HAWK nted at: [facility] GABAPENTIN 100MG CAP Active TAKE 1 CAPSULE BY M OUTH EVERY MORNING AND TAKE 1 CAPSULE BY MOUTH AT NOON AND TAKE 2 CAPSULES BY MOUTH AT BEDTIME 360 Jul 06, 2020 [id number] March 31, 2020 ELEUTERIO LIVINGSTON [facility] [place] [facility] GLUCAGON 1MG/GABRIELLA INJ,EMERGENCY KIT INJEC T 1MG SUBCUTANEOUSLY NEEDED FOR SEVERE HYPOGLYCEMIA 1 Nov 30, 2019 [id number] Nov 03, 2019 REYES THOM [facility] INSULIN,ASPART,HUMAN 100U/ML,NOVOLOG,FLEXPEN,3ML Active: On Hold INJECT 20 UNITS SUBCUTANEOUSLY BEFORE BREAKFAST AND INJECT 20 UNITS BEFORE LUNCH AND INJECT 26 UNITS BEFORE SUPPER AND INJECT 24 UNITS SNACK FOR BLOOD SUGAR CONTROL. ADMINISTER 10 MINUTES BEFORE FOOD DIRECTED. REFRIGERATE UN-OPENED PENS. DISCARD CARTRIDGE 28 DAYS AFTER OPENING. PLUS CORRECTION Mar 01, 2021 [id number] ELEUTERIO LIVINGSTON [facility] INSULIN,ASPART,HUMAN 100U/ML,NOVOLOG,FLEXPEN,3ML Discontinue d INJECT 20 UNITS SUBCUTANEOUSLY BEFORE BREAKFAST AND INJECT 20 UNITS BEFORE LUNCH AND INJECT 24 UNITS BEFORE SUPPER AND INJECT 24 UNITS SNACK FOR BLOOD SUGAR CONTROL. ADMINISTER 10 MINUTES BEFORE FOOD DIRECTED. REFRIGERATE UN-OPENED PENS. DISCARD CARTRIDGE 28 DAYS AFTER OPENING. PLUS CORRECTION Jan 26, 2021 [id number] Jan 28, 2020 ELEUTERIO LIVINGSTON [facility] INSULIN,ASPART,HUMAN 100U/ML,NOVOLOG,FLEXPEN,3ML Discontinue d INJECT 20 UNITS SUBCUTANEOUSLY BEFORE MEALS FOR BLOOD SUGAR CONTROL. ADMINISTER 10 MINUTES BEFORE FOOD DIRECTED. REFRIGERATE UN-OPENED PENS. DISCARD CARTRIDGE 28 DAYS AFTER OPENING. PLUS CORRECTION FOR BLOOD SUGAR CONTROL. ADMINISTER 10 MINUTES BEFORE FOOD DIRECTED. REFRIGERATE UN-OPENED PENS. DISCARD CARTRIDGE 28 DAYS AFTER OPENING. PLUS CORRECTION 30 Nov 16, 2020 [id number] Nov 16 ELEUTERIO LIVINGSTON [facility] INSULIN,ASPART,HUMAN 100U/ML,NOVOLOG,FLEXPEN,3ML Discontinue d INJECT 15 UNITS SUBCUTANEOUSLY EVERY MORNING BEFORE MEAL AND INJECT 15 UNITS WITH LUNCH AND INJECT 15 UNITS WITH SUPPER AND INJECT 20 UNITS WITH SNACK FOR BLOOD SUGAR CONTROL. ADMINISTER 10 MINUTES BEFORE FOOD DIRECTED. REFRIGERATE UN-OPENED PENS. DISCARD CARTRIDGE 28 DAYS AFTER OPENING. Dec 22, 2019 [id number] Oct 12, 2019 ELEUTERIO LIVINGSTON [facility] INSULIN,GLARGINE,HUMAN 100 UNIT/ML INJ,SOLOSTAR,3ML Active INJECT 50 UNITS SUBCUTANEOUSLY EVERY MORNING FOR BLOOD SUGAR CONTROL. ADMINISTER AT SAME TIME EACH DAY DIRECTED. DISCARD ANY OPEN CARTRIDGE AFTER 28 DAYS. Sep 23, 2020 [id number] Jan 28, 2020 ELEUTERIO LIVINGSTON [facility] INSULIN,GLARGINE,HUMAN 100 UNIT/ML INJ,SOLOSTAR,3ML Disconti nued INJECT 45 UNITS SUBCUTANEOUSLY EVERY MORNING FOR BLOOD SUGAR CONTROL. ADMINISTER AT SAME TIME EACH DAY DIRECTED. DISCARD ANY OPEN CARTRIDGE AFTER 28 DAYS. Oct 23, 2019 [id number] Aug 30, 2019 LYNDATRELEUTERIO ROJAS [facility] LACTOBACILLUS ACIDOPHILUS TAB,CHEWABLE Non-VA CHEW ONE TABLET BY MOUTH ONCE A DAY Non-VA Documented by: MEGAN HAWK at: [facility] LANCET,SOFTCLIX Active USE LANCET 5 TIME S A DAY FOR TESTING BLOOD GLUCOSE DIRECTED 500 Dec 28, 2020 [id number] March 19, 2020 BALTRUSAITISELEUTERIO [facility] LANCET,SOFTCLIX Discontinued USE LANCET 5 TIME S A DAY FOR TESTING BLOOD GLUCOSE DIRECTED 500 Jan 11, 2020 [id number] Sep 29, 2019 LYNDATRUSA ITISELEUTERIO [facility] MAGNESIUM OXIDE 400MG TAB Non-VA TAKE ONE TABLET BY MOUTH ONCE A DAY Non-VA Documented by: MEGAN HAWK at: [facility] METOPROLOL SUCCINATE 200MG TAB,SA TAKE O NE-HALF TABLET BY MOUTH EVERY EVENING FOR HEART/BLOOD PRESSURE. SWALLOW WHOLE, DO NOT CRUSH OR CHEW (TABLETS MAY BE CUT IN HALF). 45 March 18, 2020 [id number] Dec 28, 2019 STANISLAV HAMMER [facility] NEEDLE 22G 1.5IN USE NEEDLE FOR EVERY MONTH 1 Nov 12, 2019 [id number] Feb 07, 2019 ADELAIDA CLIFFORD [facility] NEEDLE,PEN 31G,5MM Discontinued USE NEEDLE SUBCUTANE OUSLY 5 TIMES A DAY - THIS IS A SINGLE USE NEEDLE AND SHOULD BE DISCARDED AFTER USE 500 Dec 21, 2019 [id number] Sep 28, 2019 BALTRUSAITIS,ELEUTERIO Larry [facility] POTASSIUM CHLORIDE 10MEQ TAB,SA Active TAKE TWO TABLETS BY MOUTH TWO TIMES A DAY FOR POTASSIUM SUPPLEMENTATIONTAKE WITH FOOD 360 Dec 12, 2020 [id number] Mar 02, 2020 [facility] [place] POTASSIUM CHLORIDE 10MEQ TAB,SA Discontinued TAKE ONE TABLET BY MOUTH THREE TIMES A DAY WITH MEALS FOR POTASSIUM SUPPLEMENTATIONTAKE WITH FOOD 180 March 16, 2020 [id number] Nov 29, 2019 BALTRUSAITIS,ELEUTERIO L [facility] [place] [facility] POTASSIUM CHLORIDE 10MEQ TAB,SA Discontinued TAKE ONE TABLET BY MOUTH THREE TIMES A DAY WITH MEALS FOR POTASSIUM SUPPLEMENTATIONTAKE WITH FOOD 180 May 26, 2019 [id number] Jan 24, 2019 [facility] [place] [facility] SYRINGE 2.5-3ML/NDL 25G 1IN Active USE 1 SYRINGE EVERY MONTH 3 Feb 21, 2021 [id number] March 20, 2020 [facility] SYRINGE 2.5-3ML/NDL 25G 1IN Discontinued USE 1 SYRINGE EVERY Thu 3 March 18, 2020 [id number] Dec 21, 2019 [facility] TESTOSTERONE CYPIONATE 200MG/ML INJ,1ML (IN OIL) Active INJECT 200 MG (1 ML) INTRAMUSCULARLY EVERY MONTH FOR HORMONE REPLACEMENT 1 May 18, 2020 [id number] April 06, 2020 ADELAIDA CLIFFORD [facility] TESTOSTERONE CYPIONATE 200MG/ML INJ,1ML (IN OIL) Discontinue d INJECT 200 MG (1 ML) INTRAMUSCULARLY EVERY MONTH FOR HORMONE REPLACEMENT 1 March 25, 2020 [id number] Oct 25, 2019 ADELAIDA CLIFFORD [facility] TESTOSTERONE CYPIONATE 200MG/ML INJ,1ML (IN OIL) Discontinue d INJECT 200 MG (1 ML) INTRAMUSCULARLY EVERY MONTH FOR HORMONE REPLACEMENT 1 Nov 06, 2019 [id number] Sep 25, 2019 ADELAIDA CLIFFORD [facility] TESTOSTERONE CYPIONATE 200MG/ML INJ,1ML (IN OIL) Discontinue d INJECT 200 MG (1 ML) INTRAMUSCULARLY EVERY MONTH FOR HORMONE REPLACEMENT 1 May 14, 2019 [id number] Apr 10, 2019 ADELAIDA CLIFFORD [facility] TRAMADOL HCL 50MG TAB Active TAKE 1 TO 2 TABLET S BY MOUTH EVERY 6 HOURS NEEDED FOR PAIN 180 Jul 21, 2020 [id number] March 30, 2020 [facility] [place] TRAMADOL HCL 50MG TAB Discontinued TAKE 1 TO 2 TABLET S BY MOUTH EVERY 6 HOURS NEEDED FOR PAIN 180 Jun 06, 2020 [id number] Jan 11, 2020 [facility] [place] TRAMADOL HCL 50MG TAB Discontinued TAKE 1 TO 2 TABLET S BY MOUTH EVERY 6 HOURS NEEDED FOR PAIN 180 Jun 06, 2020 [id number] Dec 06, 2019 [facility] TRAMADOL HCL 50MG TAB Discontinued TAKE 1 TO 2 TABLET S BY MOUTH EVERY 6 HOURS NEEDED FOR PAIN 180 Dec 14, 2019 [id number] Nov 15, 2019 [facility] [place] [facility] TRAMADOL HCL 50MG TAB Discontinued TAKE 1 TO 2 TABLET S BY MOUTH EVERY 6 HOURS NEEDED FOR PAIN 180 Jul 06, 2019 [id number] May 26, 2019 [facility] [place] [facility] TRIAMCINOLONE ACETONIDE 0.5% CREAM,TOP Active A PPLY SPARINGLY TO AFFECTED AREA ONCE A DAY NEEDED FOR RASH 45 Jul 15, 2020 [id number] April 01 0 [facility] [place] TRIAMCINOLONE ACETONIDE 0.5% CREAM,TOP Discontinued A PPLY SPARINGLY TO AFFECTED AREA ONCE A DAY NEEDED FOR RASH 45 Oct 12, 2019 [id number] Jul [facility] Problems (Conditions): All historical and current Section Date Range: From patient's date of to the date document was create d. This section includes a list of Problems (Conditions) know n to [place] for the patient. It includes both active and inacti ve problems (conditions). The data comes from all [place] treatment facilities. Problem Status Problem Code Date of Onset Date of Resolution Comm ent(s) Provider Source Basal cell carcinoma of scalp Active [id number] THOM CHAMBERS [facility] Chronic back pain Active [id number] TERRIE CHAMBERS [facility] [place] [facility] Chronic kidney disease stage 3 Active [id number] THOM CHAMBERS [facility] Constipation Active [id number] THOM CHAMBERS [facility] Diabetes mellitus Active 58524559 THOM CHAMBERS [facility] Diabetic neuropathy Active [id number] Neha CHAMBERS [facility] Essential hypertension Active 14377338 THOM CHAMBERS [facility] Hyperlipidemia Active [id number] THOM CHAMBERS EA [facility] [place] [facility] Hypogonadism Active 81769248 THOM CHAMBERS [facility] [place] Sleep apnea Active 56648650 THOM CHAMBERS RN [facility] [place] [facility] Radiology Reports: +/- 30 days of the encounter No Data Provided for This Section Pathology Reports: +/- 30 days of the encounter No Data Provided for This Section Encounter Notes: All associated encounter notes No Data Provided for This Section
--- OUTSIDE RECORDS SUMMARY | 2020-04-18 09:42 | XMS REPORT ---
Author Author Department [facility] SIMI palacio Organization Department of [facility] Address [address] [place] [id number] Phone Unavailable Care Team Providers Care Bead Inspector Name Role Phone REYES THOM PCP Unavailable [...] [facility] [facility] (WNR) MEDICARE ADVANTAGE [facility] Nov 09, 2017 [id number] [phone] SIMI COVARRUBIAS PATIENT [facility] [facility] (WNR) MEDICARE [facility] (R) Nov 09, 2017 [id number] [phone] SIMI COVARRUBIAS PATIENT [employer] [facility] (WNR) MEDICARE ADVANTAGE [facility] (R) Nov 09, 2019 [id number] [id number] SIMI COVARRUBIAS PATIENT Selected Encounter This section includes the information on record at [place] for the Encounter. Date/Time Encounter Type Encounter Description Reason Provider Source Dec 12, 2019 08:00 AM Outpatient Encounter ADMIN PAT ACTIVTIES (MASNO NCT) [facility], [facility] 15 IHE Encounter Template Text not used by [place] Assessments - Encounter Diagnoses No Data Provided for This Section Plan of Treatment: Future Appointments (+ 6 months) and Future Tests (+/- 45 day s) The Plan of Treatment section includes future care activities for the patient fr om all [place] treatment facilities. This section includes future appointments and fu ture orders which are active, pending or scheduled. Future Appointments This section includes appointments that were scheduled t o occur 6 months from the date of the Encounter, up to a maximum of 20 appointme nts. The data comes from all [place] treatment facilities. Appointment Date/Time Appointment Type Appointment Facili ty Name Dec 14, 2019 03:00 PM AMBULATORY - NONE [facility] Dec 15, 2019 01:00 PM AMBULATORY - NONE [facility] Jan 12, 2020 10:00 AM AMBULATORY - NONE [facility] Jan 26, 2020 03:00 PM AMBULATORY - NONE [facility] Feb 29, 2020 02:30 PM AMBULATORY - NONE [facility] March 20, 2020 08:00 AM AMBULATORY - MEDICINE [facility] March 28, 2020 11:30 AM AMBULATORY - NONE [facility] Apr 19, 2020 11:00 AM AMBULATORY - NONE [facility] Apr 26, 2020 10:45 AM AMBULATORY - NONE [facility], [facility] 15 Surgical Procedures: All associated to the encounter No Data Provided for This Section Lab Results: +/- 30 days of the encounter This section includes the Chemistry and Hematology Lab R esults on record with [place] for the patient. Radiology Reports and Pathology Report s are provided separately, in subsequent sections. Lab Results This section contains the Chemistry/Hematology Results anushka t were resulted 30 days before or 30 days after the date of the Encounter. Date/Time Source Result Type Result - Unit Interpretation Reference Range Comment Dec 01, 2019 11:09 AM [facility] CBC & DIFF Specimen Type: BLOOD [...] 0.5 % Dec 01, 2019 11:09 AM [facility] RENAL FUNCTION PANEL Specimen Type: PLASMA [...] EGFR 46.5 Dec 01, 2019 11:09 AM [facility] URINALYSIS Specimen Type: URINE No comment [...] RBC/HPF 0-2 Dec 01, 2019 11:09 AM [facility] MAGNESIUM (mg/dL) Specimen Type: PLASMA No comment entered. MAGNESIUM (mg/dL) 2.4 mg/dl 1.6-2.6 Dec 01, 2019 11:09 AM [facility] HEPATIC FUNCTION PANE L Specimen Type: PLASMA No comment entered. PROTEIN,TOTAL 7.2 g/dL 6.0-8.6 ALBUMIN 4.5 g/dl 3.4-5.0 TOTAL BILIRUBIN 0.7 mg/dL 0.2-1.2 DIRECT BILIRUBIN 0.30 mg/dL 0-0.5 ASPARTATE TRANSAMINASE 29 U/L 5-34 ALANINE AMINOTRANSFERASE 20 U/L 8-40 ALKALINE PHOSPHATASE 98 U/L 40-150 Dec 01, 2019 11:09 AM [facility] MICROALBUMIN (CO,EK) Specimen Type: URINE No comment entered. *MICROALBUMIN(CONC) 116.8 mg/dL - *MICROALBUMIN(SPOT) 651.8 mcg/mg cr HH 0-29 *CREATININE mg/dL 179.2 mg/dl Not Avail. Dec 01, 2019 11:09 AM [facility] COMPREHENSIVE METABOL IC PANEL Specimen Type: [...] EGFR 46.5 Dec 01, 2019 11:09 AM [facility] TRAMADOL SCRN W/REFLE X,URINE Specimen Type: URINE Comment: normalcy status - Abnormal Tramadol Screen This test was performed using a forensic kit that is intended for the qualitative and semi- quantitative determination of Tramadol in human urine and has not been cleared or approved by the FDA for diagnostic purposes. The analytical performance characteristics of this test have been determined by [facility]. This test should not be used for diagnosis without confirmation by other, more specific, confirmatory analytical methodologies. Test performed by [employer] [address] [place] [id number] Gear Hobber Operator: Baron Domingo M.D.,Ph.D. Test Reported by [facility], [employer] [place], [address] [place] [address] Lawrence Mckeon M.D., Ph.D., Director of Laboratories , CLIA [id number] O-Desmethyltramadol This test was developed and its analytical performance characteristics have been determined by [employer] [facility]. It has not been cleared or approved by the US Food and Drug Administration. This assay has been validated pursuant to the CLIA regulations and is used for clinical purposes. *TRAMADOL SCREEN, URINE Positive Negati ve *TRAMADOL QUANT, URINE > 5000 ng/mL H < 10 0 *DESMETHYLTRAMADOL, URINE >5000 ng/mL H < 100 Dec 01, 2019 11:09 AM [facility] DRUGS OF ABUSE SCREEN Specimen Type: URINE No comment entered. AMPHETAMINE NEG Negative BARBITURATES NEG Negative BENZODIAZEPINES NEG Negative CANNABINOIDS NEG Negative COCAINE NEG Negative OPIATES NEG Negative PHENCYCLIDINE(PCP) NEG Negative *CREATININE,DRUG SCR 177.22 mg/dL METHADONE(UDS) NEG Negative OXYCODONE (URINE) NEG Negative ALCOHOL-URINE,RANDOM (SOSA,WI,EK) NEG mg/dL <10 Dec 01, 2019 11:09 AM [facility] URINALYSIS Specimen Type: URINE No comment [...] patient. The data comes from a ll [place] treatment facilities. It does not list Allergies/ADRs that were removed or entered in error. Some allergies/ADRs may be reported in t he Immunization section. Allergen Event Date Event Type Reaction(s) Severity Source LISINOPRIL Dec 01, 2017 Propensity to adverse reactions to drug (disorder) Renal impairment [facility], [facility] 15 METFORMIN Dec 01, 2017 Propensity to adverse reactions to drug (disorder) Renal impairment [facility], [facility] 15 Medications: VA dispensed (-15 months) and Non-VA Documented (Obtained Outside V A) Section Date Range: 1) prescriptions processed by a VA pharmacy in the last 15 m [facility], and 2) all medications recorded in the [place] medical record as "non-VA medic ations". Pharmacy terms refer to [place] pharmacy's work on prescriptions. VA patient s are advised to take their medications as instructed by their health care team. The data comes from all [place] treatment facilities. Glossary of Pharmacy Terms:Active = A prescription that can be filled at the local [place] pharmacy.Active: On Hold = An active prescription that will not be filled until pharmacy resolves the issue.Active: Susp = An active prescription that is not scheduled to be filled yet.Clinic Order = A medication received during a visit to a [place] clinic or emergency department (currently not available).Discontinued [...] TIMES A DAY 400 Sep 12, 2020 [id number] Feb 29, 2020 [facility] ACC[facility]-CHEK ROSNIA PLUS (GLUCOSE) TEST STRIP Discontinued USE 1 STRIP FOR TESTING FOUR TIMES A DAY 400 Sep 15, 2019 [id number] Jun 13, 2019 BALTRUSAIT IS,ELEUTERIO Larry [facility] ALCOHOL PREP PAD Discontinued USE 1 PAD ON SKIN FOUR TIMES A DAY 40 0 Apr 25, 2020 [id number] Nov 29, 2019 [facility] [place] ALCOHOL PREP PAD Discontinued USE 1 PAD ON SKIN FOUR TIMES A DAY 40 0 Sep 15, 2019 [id number] Apr 18, 2019 BALTRUSADANNELEUTERIO Laron [facility] ALLOPURINOL 100MG TAB Active TAKE ONE TABLET BY MOUTH ONCE A DAY FOR GOUT. TAKE WITH PLENTY OF WATER 90 Sep 23, 2020 [id number] Mar 05, 2020 SILVINA CHAMBERS [facility] [place] [facility] ALLOPURINOL 100MG TAB Discontinued TAKE ONE TABLET BY MOUTH ONCE A DAY FOR GOUT. TAKE WITH PLENTY OF WATER 90 Dec 30, 2019 [id number] Sep 17, 2019 THOM SHARPE [facility] ALOGLIPTIN 12.5MG TAB Active TAKE ONE TABLET BY MOUTH O NCE A DAY FOR DIABETES 90 Sep 12, 2020 [id number] Mar 04, 2020 BALELEUTERIO KONG [facility] [place] [facility] ALOGLIPTIN 12.5MG TAB Discontinued TAKE ONE TABLET BY MOUTH ONCE A DAY FOR DIABETES 90 Dec 22, 2019 [id number] Jun 18, 2019 [facility] [place] [facility] AMLODIPINE BESYLATE 10MG TAB Discontinued TAKE ONE TA BLET BY MOUTH EVERY MORNING FOR HEART/BLOOD PRESSURE 90 Jun 10, 2019 [id number] Feb 25, 2019 MONIKA HAMMER [facility] AMLODIPINE BESYLATE 10MG TAB TAKE ONE TA BLET BY MOUTH EVERY MORNING FOR HEART/BLOOD PRESSURE 90 Apr 12, 2020 [id number] Feb 10, 2020 SILVINA CHAMBERS [facility] ASPIRIN 81MG TAB,CHEWABLE Non-VA CHEW ONE TABLET BY MOUTH ONCE A DAY Non-VA Documented by: MEGAN HAWK Docume nted at: [facility] ATORVASTATIN CA 20MG TAB Active TAKE ONE TABLET BY MOUTH ONCE A DAY FOR CHOLESTEROL. REPORT ANY UNEXPLAINED MUSCLE PAIN OR WEAKNESS TO YOUR DOCTOR. 90 Jan 02, 2021 [id number] March 24, 2020 GROVENELLA CRAWFORD [facility], [place] 15 ATORVASTATIN CA 40MG TAB Discontinued TAKE ONE-HALF T ABLET BY MOUTH AT BEDTIME FOR CHOLESTEROL. REPORT ANY UNEXPLAINED MUSCLE PAIN OR WEAKNESS TO YOUR DOCTOR. 45 Jul 15, 2020 [id number] Oct 14, 2019 THOM CHAMBERS [facility] ATORVASTATIN CA 40MG TAB Discontinued TAKE ONE-HALF T ABLET BY MOUTH AT BEDTIME FOR CHOLESTEROL. REPORT ANY UNEXPLAINED MUSCLE PAIN OR WEAKNESS TO YOUR DOCTOR. 45 Oct 12, 2019 [id number] Jul 16, 2019 THOM CHAMBERS [facility] CALCIUM CARBONATE 500MG TAB,CHEWABLE Non-VA CHEW ONE TABLET BY MOUTH PRN Non-VA Documented by: THOM CHAMBERS nted at: [facility] CHLORTHALIDONE 25MG TAB Active TAKE ONE TABLET BY MOUTH ONCE A DAY 90 Jul 01, 2020 [id number] March 19, 2020 MONIKA HAMMER [facility] CHLORTHALIDONE 25MG TAB Discontinued TAKE ONE TABLET BY MOUTH ONCE A DAY 90 Jun 16, 2019 [id number] Apr 12, 2019 MONIKA HAMMER [facility] CHOLECALCIFEROL 1000UNT TAB Non-VA TAKE ONE TABLET BY MOUTH EVERY OTHER DAY Non-VA Docume nted by: MEGAN HAWK Docume nted at: [facility] CYANOCOBALAMIN 1000MCG/ML INJ Active INJECT 100 0 MCG (1 ML) INTRAMUSCULARLY EVERY MONTH FOR B12 SUPPLEMENTATION. 3 Nov 03, 2020 [id number] Apr 23, 2020 THOM CHAMBERS [facility] CYANOCOBALAMIN 1000MCG/ML INJ Discontinued INJECT 100 0 MCG (1 ML) INTRAMUSCULARLY EVERY MONTH FOR B12 SUPPLEMENTATION. 3 Nov 17 0 [id number] Aug 07, 2019 THOM CHAMBERS [facility] DIPHENHYDRAMINE HCL 25MG CAP Non-VA TAKE 1 CAPSULE BY MOUTH PRN Non-VA Documented by: THOM CHAMBERS nted at: [facility] DOCUSATE NA 100MG CAP No n-VA TAKE 2 CAPSULES BY MOUTH ONCE A DAY Non-VA Documented by: THOM CHAMBERS nted at: [facility] FISH OIL 1000MG (500MG DHA/EPA) CAP,ORAL Non-VA TAKE 1 CAPSULE BY MOUTH ONCE A DAY Non-VA Documented by: MEGAN HAWK nted at: [facility] GABAPENTIN 100MG CAP Active TAKE 1 CAPSULE BY M OUTH EVERY MORNING AND TAKE 1 CAPSULE BY MOUTH AT NOON AND TAKE 2 CAPSULES BY MOUTH AT BEDTIME 360 Jul 06, 2020 [id number] March 31, 2020 ELEUTERIO LIVINGSTON [facility] [place] [facility] GLUCAGON 1MG/GABRIELLA INJ,EMERGENCY KIT INJEC T 1MG SUBCUTANEOUSLY NEEDED FOR SEVERE HYPOGLYCEMIA 1 Nov 30, 2019 [id number] Nov 03, 2019 THOM CHAMBERS [facility] INSULIN,ASPART,HUMAN 100U/ML,NOVOLOG,FLEXPEN,3ML Active: On Hold INJECT 20 UNITS SUBCUTANEOUSLY BEFORE BREAKFAST AND INJECT 20 UNITS BEFORE LUNCH AND INJECT 26 UNITS BEFORE SUPPER AND INJECT 24 UNITS SNACK FOR BLOOD SUGAR CONTROL. ADMINISTER 10 MINUTES BEFORE FOOD DIRECTED. REFRIGERATE UN-OPENED PENS. DISCARD CARTRIDGE 28 DAYS AFTER OPENING. PLUS CORRECTION Mar 01, 2021 [id number] ELEUTERIO LIVINGSTON [facility] INSULIN,ASPART,HUMAN 100U/ML,NOVOLOG,FLEXPEN,3ML Discontinue d INJECT 20 UNITS SUBCUTANEOUSLY BEFORE BREAKFAST AND INJECT 20 UNITS BEFORE LUNCH AND INJECT 24 UNITS BEFORE SUPPER AND INJECT 24 UNITS SNACK FOR BLOOD SUGAR CONTROL. ADMINISTER 10 MINUTES BEFORE FOOD DIRECTED. REFRIGERATE UN-OPENED PENS. DISCARD CARTRIDGE 28 DAYS AFTER OPENING. PLUS CORRECTION 30 Jan 26, 2021 [id number] Jan 28, 2020 ELEUTERIO LIVINGSTON [facility] INSULIN,ASPART,HUMAN 100U/ML,NOVOLOG,FLEXPEN,3ML Discontinue d INJECT 20 UNITS SUBCUTANEOUSLY BEFORE MEALS FOR BLOOD SUGAR CONTROL. ADMINISTER 10 MINUTES BEFORE FOOD DIRECTED. REFRIGERATE UN-OPENED PENS. DISCARD CARTRIDGE 28 DAYS AFTER OPENING. PLUS CORRECTION FOR BLOOD SUGAR CONTROL. ADMINISTER 10 MINUTES BEFORE FOOD DIRECTED. REFRIGERATE UN-OPENED PENS. DISCARD CARTRIDGE 28 DAYS AFTER OPENING. PLUS CORRECTION 30 Nov 16, 2020 [id number] Nov 16 ELEUTERIO LIVINGSTON [facility] INSULIN,ASPART,HUMAN 100U/ML,NOVOLOG,FLEXPEN,3ML Discontinue d INJECT 15 UNITS SUBCUTANEOUSLY EVERY MORNING BEFORE MEAL AND INJECT 15 UNITS WITH LUNCH AND INJECT 15 UNITS WITH SUPPER AND INJECT 20 UNITS WITH SNACK FOR BLOOD SUGAR CONTROL. ADMINISTER 10 MINUTES BEFORE FOOD DIRECTED. REFRIGERATE UN-OPENED PENS. DISCARD CARTRIDGE 28 DAYS AFTER OPENING. Dec 22, 2019 5 [id number] Oct 12, 2019 ELEUTERIO LIVINGSTON [facility] INSULIN,GLARGINE,HUMAN 100 UNIT/ML INJ,SOLOSTAR,3ML Active INJECT 50 UNITS SUBCUTANEOUSLY EVERY MORNING FOR BLOOD SUGAR CONTROL. ADMINISTER AT SAME TIME EACH DAY DIRECTED. DISCARD ANY OPEN CARTRIDGE AFTER 28 DAYS. Sep 23, 2020 [id number] Jan 28, 2020 ELEUTERIO LIVINGSTON [facility] INSULIN,GLARGINE,HUMAN 100 UNIT/ML INJ,SOLOSTAR,3ML Disconti nued INJECT 45 UNITS SUBCUTANEOUSLY EVERY MORNING FOR BLOOD SUGAR CONTROL. ADMINISTER AT SAME TIME EACH DAY DIRECTED. DISCARD ANY OPEN CARTRIDGE AFTER 28 DAYS. Oct 23, 2019 [id number] Aug 30, 2019 ELEUTERIO LIVINGSTON [facility] LACTOBACILLUS ACIDOPHILUS TAB,CHEWABLE Non-VA CHEW ONE TABLET BY MOUTH ONCE A DAY Non-VA Documented by: MEGAN HAWK nted at: [facility] LANCET,SOFTCLIX Active USE LANCET 5 TIME S A DAY FOR TESTING BLOOD GLUCOSE DIRECTED 500 Dec 28, 2020 [id number] March 19, 2020 ELEUTERIO LIVINGSTON [facility] LANCET,SOFTCLIX Discontinued USE LANCET 5 TIME S A DAY FOR TESTING BLOOD GLUCOSE DIRECTED 500 Jan 11, 2020 [id number] Sep 29, 2019 YAYA ITELEUTERIO MICHEL [facility] MAGNESIUM OXIDE 400MG TAB Non-VA TAKE ONE TABLET BY MOUTH ONCE A DAY Non-VA Documented by: MEGAN HAWK nted at: [facility] METOPROLOL SUCCINATE 200MG TAB,SA TAKE O NE-HALF TABLET BY MOUTH EVERY EVENING FOR HEART/BLOOD PRESSURE. SWALLOW WHOLE, DO NOT CRUSH OR CHEW (TABLETS MAY BE CUT IN HALF). 45 March 18, 2020 [id number] Dec 28, 2019 STANISLAV HAMMER [facility] NEEDLE 22G 1.5IN USE NEEDLE FOR EVERY MONTH 1 Nov 12, 2019 [id number] Feb 07, 2019 ADELAIDA CLIFFORD [facility] [place] [facility] NEEDLE,PEN 31G,5MM Discontinued USE NEEDLE SUBCUTANE OUSLY 5 TIMES A DAY - THIS IS A SINGLE USE NEEDLE AND SHOULD BE DISCARDED AFTER USE 500 Dec 21, 2019 [id number] Sep 28, 2019 BALTRUSAITISELEUTERIO [facility] POTASSIUM CHLORIDE 10MEQ TAB,SA Active TAKE TWO TABLETS BY MOUTH TWO TIMES A DAY FOR POTASSIUM SUPPLEMENTATIONTAKE WITH FOOD 360 Dec 12, 2020 [id number] Mar 02, 2020 [facility] 15 POTASSIUM CHLORIDE 10MEQ TAB,SA Discontinued TAKE ONE TABLET BY MOUTH THREE TIMES A DAY WITH MEALS FOR POTASSIUM SUPPLEMENTATIONTAKE WITH FOOD 180 March 16, 2020 [id number] Nov 29, 2019 BALTRUSAITIS,ELEUTERIO L [facility] [place] [facility] POTASSIUM CHLORIDE 10MEQ TAB,SA Discontinued TAKE ONE TABLET BY MOUTH THREE TIMES A DAY WITH MEALS FOR POTASSIUM SUPPLEMENTATIONTAKE WITH FOOD 180 May 26, 2019 [id number] Jan 24, 2019 [facility] [place] [facility] SYRINGE 2.5-3ML/NDL 25G 1IN Active USE 1 SYRINGE EVERY MONTH 3 Feb 21, 2021 [id number] March 20, 2020 [facility] SYRINGE 2.5-3ML/NDL 25G 1IN Discontinued USE 1 SYRINGE EVERY Thu 3 March 18, 2020 [id number] Dec 21, 2019 [facility] TESTOSTERONE CYPIONATE 200MG/ML INJ,1ML (IN OIL) Active INJECT 200 MG (1 ML) INTRAMUSCULARLY EVERY MONTH FOR HORMONE REPLACEMENT 1 May 18, 2020 [id number] April 06, 2020 ADELAIDA CLIFFORD [facility] [facility] TESTOSTERONE CYPIONATE 200MG/ML INJ,1ML (IN OIL) Discontinue d INJECT 200 MG (1 ML) INTRAMUSCULARLY EVERY MONTH FOR HORMONE REPLACEMENT 1 March 25, 2020 [id number] Oct 25, 2019 ADELAIDA CLIFFORD [facility] TESTOSTERONE CYPIONATE 200MG/ML INJ,1ML (IN OIL) Discontinue d INJECT 200 MG (1 ML) INTRAMUSCULARLY EVERY MONTH FOR HORMONE REPLACEMENT 1 Nov 06, 2019 [id number] Sep 25, 2019 ADELAIDA CLIFFORD [facility] TESTOSTERONE CYPIONATE 200MG/ML INJ,1ML (IN OIL) Discontinue d INJECT 200 MG (1 ML) INTRAMUSCULARLY EVERY MONTH FOR HORMONE REPLACEMENT 1 May 14, 2019 [id number] Apr 10, 2019 ADELAIDA CLIFFORD [facility] TRAMADOL HCL 50MG TAB Active TAKE 1 TO 2 TABLET S BY MOUTH EVERY 6 HOURS NEEDED FOR PAIN 180 Jul 21, 2020 [id number] March 30, 2020 [facility] TRAMADOL HCL 50MG TAB Discontinued TAKE 1 TO 2 TABLET S BY MOUTH EVERY 6 HOURS NEEDED FOR PAIN 180 Jun 06, 2020 [id number] Jan 11, 2020 [facility] TRAMADOL HCL 50MG TAB Discontinued TAKE 1 TO 2 TABLET S BY MOUTH EVERY 6 HOURS NEEDED FOR PAIN 180 Jun 06, 2020 [id number] Dec 06, 2019 [facility] TRAMADOL HCL 50MG TAB Discontinued TAKE 1 TO 2 TABLET S BY MOUTH EVERY 6 HOURS NEEDED FOR PAIN 180 Dec 14, 2019 [id number] Nov 15, 2019 DANTE VALVERDE [facility] [place] [facility] TRAMADOL HCL 50MG TAB Discontinued TAKE 1 TO 2 TABLET S BY MOUTH EVERY 6 HOURS NEEDED FOR PAIN 180 Jul 06, 2019 [id number] May 26, 2019 NELLA GROVE [facility] [place] [facility] TRIAMCINOLONE ACETONIDE 0.5% CREAM,TOP Active A PPLY SPARINGLY TO AFFECTED AREA ONCE A DAY NEEDED FOR RASH 45 Jul 15, 2020 [id number] April 01 0 [facility] [place] [facility] TRIAMCINOLONE ACETONIDE 0.5% CREAM,TOP Discontinued A PPLY SPARINGLY TO AFFECTED AREA ONCE A DAY NEEDED FOR RASH 45 Oct 12, 2019 [id number] Jul THOM CHAMBERS [facility] Problems (Conditions): All historical and current Section Date Range: From patient's date of to the date document was create d. This section includes a list of Problems (Conditions) know n to [place] for [place] patient. It includes both active and inacti ve problems (conditions). The data comes from all [place] treatment facilities. Problem Status Problem Code Date of Onset Date of Resolution Comm ent(s) Provider Source Basal cell carcinoma of scalp Active [id number] [facility] [place] [facility] Chronic back pain Active [id number] REYESTERRIE Hensley [facility] [place] [facility] Chronic kidney disease stage 3 Active [id number] THMO CHAMBERS [facility] [place] [facility] Constipation Active 70696084 [facility] [place] [facility] Diabetes mellitus Active 82807617 THOM CHAMBERS [facility] [place] [facility] Diabetic neuropathy Active 567309269 Neha CHAMBERS [facility] [place] [facility] Essential hypertension Active 79807974 TERRIE CHAMBERSShellie MELLO [facility] [place] [facility] Hyperlipidemia Active 45201125 THOM CHAMBERS [facility] [place] [facility] Hypogonadism Active 87928610 TERRIE CHAMBERSShellie [facility] [place] [facility] Sleep apnea Active 12547457 THOM CHAMBERS [facility] [place] [facility] Radiology Reports: +/- 30 days of the encounter No Data Provided for This Section Pathology Reports: +/- 30 days of the encounter No Data Provided for This Section Encounter Notes: All associated encounter notes This section contains the clinical notes associated to the Encounter. Date/Time Encounter Note(s) Provider Source Dec 12, 2019 08:00 AM SCANNED NOTE: LOCAL TITLE: SOSA-SCANNED NON-VA RECORD(S) STANDARD TITLE: SCANNED NOTE DATE OF NOTE: DEC 12, 2019@08:00 ENTRY DATE: JAN 31, 2020@13:40:14 AUTHOR: OCTAVIA DUMONT EXP COSIGNER: URGENCY: STATUS: COMPLETED See [facility] / 5 MONTH FOLLOWUP / 12/12/2019 /noa/ OCTAVIA DUMONT Signed: 01/31/2020 13:41 OCTAVIA DUMONT [facility] 15
--- OUTSIDE RECORDS SUMMARY | 2020-04-18 09:42 | XMS REPORT | Encounter Summary ---
Author [facility] Address [address] [place] [phone] Phone Unavailable Care Team Providers Care Magistrate Name Role Phone REYES THOM PCP Unavailable [...] to Policy Woodard [facility] ([facility]) MEDICARE ADVANTAGE [facility] ([facility]) Nov 09, 2017 [id number] [phone] SIMI COVARRUBIAS PATIENT [facility] ([facility]) MEDICARE ADVANTAGE [facility] ([facility]) Nov 09, 2017 [id number] [phone] SIMI COVARRUBIAS PATIENT AETNA MCR ([facility]) MEDICARE ADVANTAGE M[facility] ([facility]) Nov 09, [id number] [id number] SIMI COVARRUBIAS PATIENT Selected Encounter This section includes the information on record at [place] for the Encounter. Date/Time Encounter Type Encounter Description Reason Provider Source Dec 14, 2019 03:00 PM Outpatient Encounter TELEPHONE PRIMARY CAR E ICD-10-CM E11.9 Type 2 diabetes mellitus without complications with Provider Comments: Diabetes mellitus (SCT [id number]) ELEUTERIO LIVINGSTON [facility] IHE Encounter Template Text not used by [facility] Assessments - Encounter Diagnoses This section includes the primary and secondary diag noses documented for the Encounter. Date/Time Primary/Secondary Diagnosis Diagnosis Name Provider Source Dec 14, 2019 03:00 PM PRIMARY Type 2 diabetes mellitus w ithout complications [facility] Plan of Treatment: [...] Appointment Type Appointment Facili ty Name Dec 15, 2019 01:00 PM AMBULATORY - NONE [facility] Jan 12, 2020 10:00 AM AMBULATORY - NONE [facility] Jan 26, 2020 03:00 PM AMBULATORY - NONE [facility] Feb 29, 2020 02:30 PM AMBULATORY - NONE [facility] March 20, 2020 08:00 AM AMBULATORY - MEDICINE [facility] March 28, 2020 11:30 AM AMBULATORY - NONE [facility] Apr 19, 2020 11:00 AM AMBULATORY - NONE [facility] Apr 26, 2020 10:45 AM AMBULATORY - NONE [facility], VISN 15 Surgical [...] Range Comment Dec 01, 2019 11:09 AM [facility] CBC & DIFF Specimen Type: BLOOD No [...] 0.5 % Dec 01, 2019 11:09 AM [facility] RENAL FUNCTION PANEL Specimen Type: PLASMA No comment entered. *CREATININE 1.48 mg/dL H 0.7-1.3 UREA NITROGEN mg/dL 19 mg/dL 9-25 GLUCOSE 99 mg/dL 72-99 SODIUM 143 mEq/L 136-145 POTASSIUM 3.4 mEq/L L 3.5-5.0 CALCIUM (mg/dL) 10.0 mg/dL 8.4-10.4 PHOSPHORUS INORGANIC 2.6 mg/dL 2.3-4.7 ALBUMIN 4.5 g/dl 3.4-5.0 CHLORIDE 101 mEq/L 98-107 CO2 34 mEq/L H 22-31 EGFR 46.5 Dec 01, 2019 11:09 AM [facility] URINALYSIS Specimen Type: URINE No comment entered. [...] RBC/HPF 0-2 Dec 01, 2019 11:09 AM [facility] MAGNESIUM (mg/dL) Specimen Type: PLASMA No comment entered. MAGNESIUM (mg/dL) 2.4 mg/dl 1.6-2.6 Dec 01, 2019 11:09 AM [facility] HEPATIC FUNCTION PANE L Specimen Type: PLASMA No comment entered. PROTEIN,TOTAL 7.2 g/dL 6.0-8.6 ALBUMIN 4.5 g/dl 3.4-5.0 TOTAL BILIRUBIN 0.7 mg/dL 0.2-1.2 DIRECT BILIRUBIN 0.30 mg/dL 0-0.5 ASPARTATE TRANSAMINASE 29 U/L 5-34 ALANINE AMINOTRANSFERASE 20 U/L 8-40 ALKALINE PHOSPHATASE 98 U/L 40-150 Dec 01, 2019 11:09 AM [facility] MICROALBUMIN (CO,EK) Specimen Type: URINE No comment entered. *MICROALBUMIN(CONC) 116.8 mg/dL - *MICROALBUMIN(SPOT) 651.8 mcg/mg cr HH 0-29 *CREATININE mg/dL 179.2 mg/dl Not Avail. Dec 01, 2019 11:09 AM [facility] COMPREHENSIVE METABOL IC PANEL Specimen Type: PLASMA [...] EGFR 46.5 Dec 01, 2019 11:09 AM [facility] TRAMADOL SCRN W/REFLE X,URINE Specimen Type: URINE Comment: normalcy status - Abnormal Tramadol Screen This test was performed using a forensic kit that is intended for the qualitative and semi- quantitative determination of Tramadol in human urine and has not been cleared or approved by the FDA for diagnostic purposes. The analytical performance characteristics of this test have been determined by [facility]. This test should not be used for diagnosis without confirmation by other, more specific, confirmatory analytical methodologies. Test performed by [facility] [place] [address] [place] [address] Shrimp Peeling Machine Tender: Baron Domingo M.D.,Ph.D. Test Reported by [facility] [employer], Alegría [facility], [address] [place] [address] Lawrence Mckeon M.D., Ph.D., Director of Laboratories , CLIA [id number] O-Desmethyltramadol This test was developed and its analytical performance characteristics have been determined by [facility]. It has not been cleared or approved by the US Food and Drug Administration. This assay has been validated pursuant to the CLIA regulations and is used for clinical purposes. *TRAMADOL SCREEN, URINE Positive Negati ve *TRAMADOL QUANT, URINE > 5000 ng/mL H < 10 0 *DESMETHYLTRAMADOL, URINE >5000 ng/mL H < 100 Dec 01, 2019 11:09 AM [facility] DRUGS OF ABUSE SCREEN Specimen Type: URINE No comment entered. AMPHETAMINE NEG Negative BARBITURATES NEG Negative BENZODIAZEPINES NEG Negative CANNABINOIDS NEG Negative COCAINE NEG Negative OPIATES NEG Negative PHENCYCLIDINE(PCP) NEG Negative *CREATININE,DRUG SCR 177.22 mg/dL METHADONE(UDS) NEG Negative OXYCODONE (URINE) NEG Negative ALCOHOL-URINE,RANDOM (SOSA,WI,EK) NEG mg/dL <10 Dec 01, 2019 11:09 AM [facility] URINALYSIS Specimen Type: URINE No comment entered. [...] reactions to drug (disorder) Renal impairment [facility] 15 METFORMIN Dec 01, 2017 Propensity to adverse reactions to drug (disorder) Renal impairment [facility] VISN 15 Medications: VA dispensed [...] TIMES A DAY 400 Sep 12, 2020 [id number] Feb 29, 2020 YARAELEUTERIO Laron [facility] ACCU-CHEK ROSINA PLUS (GLUCOSE) TEST STRIP Discontinued USE 1 STRIP FOR TESTING FOUR TIMES A DAY 400 Sep 15, 2019 [id number] Jun 13, 2019 ELEUTERIO LARA [facility] ALCOHOL PREP PAD Discontinued USE 1 PAD ON SKIN FOUR TIMES A DAY 40 0 Apr 25, 2020 [id number] Nov 29, 2019 ELEUTERIO LIVINGSTON [facility] ALCOHOL PREP PAD Discontinued USE 1 PAD ON SKIN FOUR TIMES A DAY 40 0 Sep 15, 2019 [id number] Apr 18, 2019 ELEUTERIO LIVINGSTON [facility] ALLOPURINOL 100MG TAB Active TAKE ONE TABLET BY MOUTH ONCE A DAY FOR GOUT. TAKE WITH PLENTY OF WATER 90 Sep 23, 2020 [id number] Mar 05, 2020 SILVINA CHAMBERS [facility] ALLOPURINOL 100MG TAB Discontinued TAKE ONE TABLET BY MOUTH ONCE A DAY FOR GOUT. TAKE WITH PLENTY OF WATER 90 Dec 30, 2019 [id number] Sep 17, 2019 THOM SHARPE [facility] ALOGLIPTIN 12.5MG TAB Active TAKE ONE TABLET BY MOUTH O NCE A DAY FOR DIABETES 90 Sep 12, 2020 [id number] Mar 04, 2020 ELEUTERIO LIVINGSTON [facility] ALOGLIPTIN 12.5MG TAB Discontinued TAKE ONE TABLET BY MOUTH ONCE A DAY FOR DIABETES 90 Dec 22, 2019 [id number] Jun 18, 2019 ELEUTERIO LIVINGSTON [facility] AMLODIPINE BESYLATE 10MG TAB Discontinued TAKE ONE TA BLET BY MOUTH EVERY MORNING FOR HEART/BLOOD PRESSURE 90 Jun 10, 2019 [id number] Feb 25, 2019 MONIKA HAMMER [facility] AMLODIPINE BESYLATE 10MG TAB TAKE ONE TA BLET BY MOUTH EVERY MORNING FOR HEART/BLOOD PRESSURE 90 Apr 12, 2020 [id number] Feb 10, 2020 SILVINA CHAMBERS [facility] ASPIRIN 81MG TAB,CHEWABLE Non-VA CHEW ONE TABLET BY MOUTH ONCE A DAY Non-VA Documented by: MEGAN HAWK nted at: [facility] ATORVASTATIN CA 20MG TAB Active TAKE ONE TABLET BY MOUTH ONCE A DAY FOR CHOLESTEROL. REPORT ANY UNEXPLAINED MUSCLE PAIN OR WEAKNESS TO YOUR DOCTOR. 90 Jan 02, 2021 [id number] March 24, 2020 [facility], VISN 15 ATORVASTATIN CA 40MG TAB Discontinued TAKE ONE-HALF T ABLET BY MOUTH AT BEDTIME FOR CHOLESTEROL. REPORT ANY UNEXPLAINED MUSCLE PAIN OR WEAKNESS TO YOUR DOCTOR. 45 Jul 15, 2020 [id number] Oct 14, 2019 THOM CHAMBERS [facility] ATORVASTATIN CA 40MG TAB Discontinued TAKE ONE-HALF T ABLET BY MOUTH AT BEDTIME FOR CHOLESTEROL. REPORT ANY UNEXPLAINED MUSCLE PAIN OR WEAKNESS TO YOUR DOCTOR. 45 Oct 12, 2019 [id number] Jul 16, 2019 THOM CHAMBERS [facility] CALCIUM CARBONATE 500MG TAB,CHEWABLE Non-VA CHEW ONE TABLET BY MOUTH PRN Non-VA Documented by: THOM CHAMBERSume nted at: [facility] CHLORTHALIDONE 25MG TAB Active TAKE ONE TABLET BY MOUTH ONCE A DAY 90 Jul 01, 2020 [id number] March 19, 2020 MONIKA HAMMER [facility] CHLORTHALIDONE 25MG TAB Discontinued TAKE ONE TABLET BY MOUTH ONCE A DAY 90 Jun 16, 2019 [id number] Apr 12, 2019 MONIKA HAMMER [facility] CHOLECALCIFEROL 1000UNT TAB Non-VA TAKE ONE TABLET BY MOUTH EVERY OTHER DAY Non-VA Docume nted by: MEGAN HAWK nted at: [facility] CYANOCOBALAMIN 1000MCG/ML INJ Active INJECT 100 0 MCG (1 ML) INTRAMUSCULARLY EVERY MONTH FOR B12 SUPPLEMENTATION. 3 Nov 03, 2020 [id number] Apr 23, 2020 THOM CHAMBERS [facility] CYANOCOBALAMIN 1000MCG/ML INJ Discontinued INJECT 100 0 MCG (1 ML) INTRAMUSCULARLY EVERY MONTH FOR B12 SUPPLEMENTATION. 3 Nov 17 0 [id number] Aug 07, 2019 [facility] DIPHENHY[facility] HCL 25MG CAP Non-VA TAKE 1 CAPSULE BY MOUTH PRN Non-VA Documented by: THOM CHAMBERS Docume nted at: [facility] DOCUSATE NA 100MG CAP No n-VA TAKE 2 CAPSULES BY MOUTH ONCE A DAY Non-VA Documented by: THOM CHAMBERS Docume nted at: [facility] FISH OIL 1000MG (500MG DHA/EPA) CAP,ORAL Non-VA TAKE 1 CAPSULE BY MOUTH ONCE A DAY Non-VA Documented by: MEGAN HAWK Docume nted at: [facility] GABAPENTIN 100MG CAP Active TAKE 1 CAPSULE BY M OUTH EVERY MORNING AND TAKE 1 CAPSULE BY MOUTH AT NOON AND TAKE 2 CAPSULES BY MOUTH AT BEDTIME 360 Jul 06, 2020 [id number] March 31, 2020 ELEUTERIO LIVINGSTON [facility] GLUCAGON 1MG/GABRIELLA INJ,EMERGENCY KIT INJEC T 1MG SUBCUTANEOUSLY NEEDED FOR SEVERE HYPOGLYCEMIA 1 Nov 30, 2019 [id number] Nov 03, 2019 REYES THOM [facility] INSULIN,ASPART,HUMAN 100U/ML,NOVOLOG,FLEXPEN,3ML Active: On Hold INJECT 20 UNITS SUBCUTANEOUSLY BEFORE BREAKFAST AND INJECT 20 UNITS BEFORE LUNCH AND INJECT 26 UNITS BEFORE SUPPER AND INJECT 24 UNITS SNACK FOR BLOOD SUGAR CONTROL. ADMINISTER 10 MINUTES BEFORE FOOD DIRECTED. REFRIGERATE UN-OPENED PENS. DISCARD CARTRIDGE 28 DAYS AFTER OPENING. PLUS CORRECTION Mar 01, 2021 [id number] ELEUTERIO LIVINGSTON [facility] INSULIN,ASPART,HUMAN 100U/ML,NOVOLOG,FLEXPEN,3ML Discontinue d INJECT 20 UNITS SUBCUTANEOUSLY BEFORE BREAKFAST AND INJECT 20 UNITS BEFORE LUNCH AND INJECT 24 UNITS BEFORE SUPPER AND INJECT 24 UNITS SNACK FOR BLOOD SUGAR CONTROL. ADMINISTER 10 MINUTES BEFORE FOOD DIRECTED. REFRIGERATE UN-OPENED PENS. DISCARD CARTRIDGE 28 DAYS AFTER OPENING. PLUS CORRECTION 30 Jan 26, 2021 [id number] Jan 28, 2020 YAYADANNELEUTERIO Larry [facility] INSULIN,ASPART,HUMAN 100U/ML,NOVOLOG,FLEXPEN,3ML Discontinue d INJECT 20 UNITS SUBCUTANEOUSLY BEFORE MEALS FOR BLOOD SUGAR CONTROL. ADMINISTER 10 MINUTES BEFORE FOOD DIRECTED. REFRIGERATE UN-OPENED PENS. DISCARD CARTRIDGE 28 DAYS AFTER OPENING. PLUS CORRECTION FOR BLOOD SUGAR CONTROL. ADMINISTER 10 MINUTES BEFORE FOOD DIRECTED. REFRIGERATE UN-OPENED PENS. DISCARD CARTRIDGE 28 DAYS AFTER OPENING. PLUS CORRECTION 30 Nov 16, 2020 [id number] Nov 16 20 ELEUTERIO LIVINGSTON [facility] INSULIN,ASPART,HUMAN 100U/ML,NOVOLOG,FLEXPEN,3ML Discontinue d INJECT 15 UNITS SUBCUTANEOUSLY EVERY MORNING BEFORE MEAL AND INJECT 15 UNITS WITH LUNCH AND INJECT 15 UNITS WITH SUPPER AND INJECT 20 UNITS WITH SNACK FOR BLOOD SUGAR CONTROL. ADMINISTER 10 MINUTES BEFORE FOOD DIRECTED. REFRIGERATE UN-OPENED PENS. DISCARD CARTRIDGE 28 DAYS AFTER OPENING. Dec 22, 2019 [id number] Oct 12, 2019 ELEUTERIO LIVINGSTON [facility] INSULIN,GLARGINE,HUMAN 100 UNIT/ML INJ,SOLOSTAR,3ML Active INJECT 50 UNITS SUBCUTANEOUSLY EVERY MORNING FOR BLOOD SUGAR CONTROL. ADMINISTER AT SAME TIME EACH DAY DIRECTED. DISCARD ANY OPEN CARTRIDGE AFTER 28 DAYS. Sep 23, 2020 [id number] Jan 28, 2020 ELEUTERIO LIVINGSTON [facility] INSULIN,GLARGINE,HUMAN 100 UNIT/ML INJ,SOLOSTAR,3ML Disconti nued INJECT 45 UNITS SUBCUTANEOUSLY EVERY MORNING FOR BLOOD SUGAR CONTROL. ADMINISTER AT SAME TIME EACH DAY DIRECTED. DISCARD ANY OPEN CARTRIDGE AFTER 28 DAYS. Oct 23, 2019 [id number] Aug 30, 2019 ELEUTERIO LIVINGSTON [facility] LACTOBACILLUS ACIDOPHILUS TAB,CHEWABLE Non-VA CHEW ONE TABLET BY MOUTH ONCE A DAY Non-VA Documented by: MEGAN HAWK nted at: [facility] LANCET,SOFTCLIX Active USE LANCET 5 TIME S A DAY FOR TESTING BLOOD GLUCOSE DIRECTED 500 Dec 28, 2020 [id number] March 19, 2020 ELEUTERIO LIVINGSTON [facility] LANCET,SOFTCLIX Discontinued USE LANCET 5 TIME S A DAY FOR TESTING BLOOD GLUCOSE DIRECTED 500 Jan 11, 2020 [id number] Sep 29, 2019 ELEUTERIO PATEL [facility] MAGNESIUM OXIDE 400MG TAB Non-VA TAKE ONE TABLET BY MOUTH ONCE A DAY Non-VA Documented by: MEGAN HAWK nted at: [facility] METOPROLOL SUCCINATE 200MG TAB,SA TAKE O NE-HALF TABLET BY MOUTH EVERY EVENING FOR HEART/BLOOD PRESSURE. SWALLOW WHOLE, DO NOT CRUSH OR CHEW (TABLETS MAY BE CUT IN HALF). 45 March 18, 2020 [id number] Dec 28, 2019 STANISLAV HAMMER [facility] NEEDLE 22G 1.5IN USE NEEDLE FOR EVERY MONTH 1 Nov 12, 2019 [id number] Feb 07, 2019 ADELAIDA CLIFFORD [facility] NEEDLE,PEN 31G,5MM Discontinued USE NEEDLE SUBCUTANE OUSLY 5 TIMES A DAY - THIS IS A SINGLE USE NEEDLE AND SHOULD BE DISCARDED AFTER USE 500 Dec 21, 2019 [id number] Sep 28, 2019 BALELEUTERIO KONG [facility] POTASSIUM CHLORIDE 10MEQ TAB,SA Active TAKE TWO TABLETS BY MOUTH TWO TIMES A DAY FOR POTASSIUM SUPPLEMENTATIONTAKE WITH FOOD 360 Dec 12, 2020 [id number] Mar 02, 2020 [facility], VISN 15 POTASSIUM CHLORIDE 10MEQ TAB,SA Discontinued TAKE ONE TABLET BY MOUTH THREE TIMES A DAY WITH MEALS FOR POTASSIUM SUPPLEMENTATIONTAKE WITH FOOD 180 March 16, 2020 [id number] Nov 29, 2019 BALELEUTERIO KONG [facility] POTASSIUM CHLORIDE 10MEQ TAB,SA Discontinued TAKE ONE TABLET BY MOUTH THREE TIMES A DAY WITH MEALS FOR POTASSIUM SUPPLEMENTATIONTAKE WITH FOOD 180 May 26, 2019 [id number] Jan 24, 2019 [facility] SYRINGE 2.5-3ML/NDL 25G 1IN Active USE 1 SYRINGE EVERY MONTH 3 Feb 21, 2021 [id number] March 20, 2020 [facility] SYRINGE 2.5-3ML/NDL 25G 1IN Discontinued USE 1 SYRINGE EVERY Thu 3 March 18, 2020 [id number] Dec 21, 2019 [facility] TESTOSTERONE CYPIONATE 200MG/ML INJ,1ML (IN OIL) Active INJECT 200 MG (1 ML) INTRAMUSCULARLY EVERY MONTH FOR HORMONE REPLACEMENT 1 May 18, 2020 [id number] April 06, 2020 ADELAIDA CLIFFORD [facility] TESTOSTERONE CYPIONATE 200MG/ML INJ,1ML (IN OIL) Discontinue d INJECT 200 MG (1 ML) INTRAMUSCULARLY EVERY MONTH FOR HORMONE REPLACEMENT March 25, 2020 [id number] Oct 25, 2019 ADELAIDA CLIFFORD [facility] TESTOSTERONE CYPIONATE 200MG/ML INJ,1ML (IN OIL) Discontinue d INJECT 200 MG (1 ML) INTRAMUSCULARLY EVERY MONTH FOR HORMONE REPLACEMENT Nov 06, 2019 [id number] Sep 25, 2019 ADELAIDA CLIFFORD [facility] TESTOSTERONE CYPIONATE 200MG/ML INJ,1ML (IN OIL) Discontinue d INJECT 200 MG (1 ML) INTRAMUSCULARLY EVERY MONTH FOR HORMONE REPLACEMENT May 14, 2019 [id number] Apr 10, 2019 ADELAIDA CLIFFORD [facility] TRAMADOL HCL 50MG TAB Active TAKE 1 TO 2 TABLET S BY MOUTH EVERY 6 HOURS NEEDED FOR PAIN 180 Jul 21, 2020 [id number] March 30, 2020 [facility], VISN 15 TRAMADOL HCL 50MG TAB Discontinued TAKE 1 TO 2 TABLET S BY MOUTH EVERY 6 HOURS NEEDED FOR PAIN 180 Jun 06, 2020 [id number] Jan 11, 2020 [facility]N 15 TRAMADOL HCL 50MG TAB Discontinued TAKE 1 TO 2 TABLET S BY MOUTH EVERY 6 HOURS NEEDED FOR PAIN 180 Jun 06, 2020 [id number] Dec 06, 2019 [facility]N 15 TRAMADOL HCL 50MG TAB Discontinued TAKE 1 TO 2 TABLET S BY MOUTH EVERY 6 HOURS NEEDED FOR PAIN 180 Dec 14, 2019 [id number] Nov 15, 2019 DANTE VALVERDE [facility] TRAMADOL HCL 50MG TAB Discontinued TAKE 1 TO 2 TABLET S BY MOUTH EVERY 6 HOURS NEEDED FOR PAIN 180 Jul 06, 2019 [id number] May 26, 2019 NELLA GROVE [facility] TRIAMCINOLONE ACETONIDE 0.5% CREAM,TOP Active A PPLY SPARINGLY TO AFFECTED AREA ONCE A DAY NEEDED FOR RASH 45 Jul 15, 2020 [id number] April 01 0 THOM CHAMBERS [facility] TRIAMCINOLONE ACETONIDE 0.5% CREAM,TOP Discontinued A PPLY SPARINGLY TO AFFECTED AREA ONCE A DAY NEEDED FOR RASH 45 Oct 12, 2019 [id number] Jul THOM CHAMBERS [facility] Problems (Conditions): All [...] Source Basal cell carcinoma of scalp Active [id number] THOM CHAMBERS [facility] Chronic back pain Active [id number] TERRIE CHAMBERS [facility] Chronic kidney disease stage 3 Active [id number] THOM CHAMBERS [facility] Constipation Active 20034544 THOM CHAMBERS [facility] Diabetes mellitus Active 11051453 THOM CHAMBERS [facility] Diabetic neuropathy Active [id number] Neha CHAMBERS [facility] Essential hypertension Active 65632288 THOM CHAMBERS [facility] Hyperlipidemia Active 54507930 THOM CHAMBERS [facility] Hypogonadism Active 48967580 THOM CHAMBERS [facility] [place] Sleep apnea Active 12451365 THOM CHAMBERS [facility] Radiology Reports: +/- 30 days of the encounter No Data Provided for This Section Pathology Reports: +/- 30 days of the encounter No Data Provided for This Section Encounter Notes: All associated encounter notes This section contains the clinical notes associated to the Encounter. Date/Time Encounter Note(s) Provider Source Dec 14, 2019 03:18 PM PHARMACY NOTE: LOCAL TITLE: -PHARMACY PRIMARY CARE STANDARD TITLE: PHARMACY NOTE DATE OF NOTE: DEC 14, 2019@15:18 ENTRY DATE: DEC 14, 2019@15:18:30 AUTHOR: REGGIE LIVINGSTON COSIGNER: URGENCY: STATUS: COMPLETED HALDSIMI DENNY is a 72 yo MALE contacted clinic via telephone. Team: TOJAYE WELLER 1 *WH*; PCP: THOM CHAMBERS S: [place] reports doing well, in NAD. REports having more will-power w/ portion sizes w/ snacks and supper. REports his potassium was low so he started taking higher dose per dr. fonseca. Reports he also lost ~5 lbs since last appt. Correctly confirms current DM regimen. HPI: At last appt insulin aspart was increased. notes also being managed by Dr. Grove, non-VA provider, recently approved thru [employer]. [place] instructed to avoid co-management, thus plans to continue DM services with this chart writer and other conditions will be deferred to Dr. Grove. DR. FONSECA PHONE [phone]. Lifestyle: Physical Activity: walking/elliptica ~10-15 miles/day (2-3hrs/day) [...] Current Regimen: -insulin glargine 50 units QPM -insulin aspart 20 units TID AC meals + 20 units w/ snack + CF -alogliptin 12.5mg ASA: yes [place]/ARB: no (CKD) Statin: moderate intensity Previously tried meds: metformin - prosthetics lab technician recommends against d/t hx of BRIGIDO with SCr 1.7 liraglutide - N/V Diabetes Complications: Retinopathy: last eye exam 05/04/19; (-) Gastropathy: denies bloating after meals, early satiety, GI complaints Nephropathy: microalbuminuria (+) 06/2019; Peripheral neuropathy: denies numbness, burning, tingling in hands/feet Foot Exam: 10/23/2017 (-)Abnormal BG Readings: Self-reports Date FBG 2hr PP AC-L 2hr PP AC-S 2hr PP HS 3AM 11/28 96 111 157 312 11/29 111 102 132 282 11/30 103 122 207 270 12/01 119 97 113 272 12/02 95 104 109 268 12/03 99 110 105 282 12/04 124 91 101 183 12/05 99 109 144 293 12/06 114 105 97 228 12/07 96 125 111 233 12/08 106 100 151 209 12/09 95 117 97 247 12/10 103 119 147 183 12/11 102 94 130 174 12/12 100 95 157 195 12/13 98 105 141 229 12/14 111 118 Average 104 107 131 241 Overall Average 145 Hypoglycemia Episodes: denies Blood pressure: 120-140's/60-70's PMH: Computerized Problem List is the source for the followin. Diabetes mellitus 2. Diabetic neuropathy 3. Essential hypertension 4. Hyperlipidemia 5. Sleep apnea 6. Constipation 7. Chronic back pain 8. Hypogonadism 9. Basal cell carcinoma of scalp O: Weight: 179.7 lb [81.7 kg] (11/17/2019 09:56) BMI: 30.4 Blood pressure: 128/66 (11/17/2019 09:56) Pulse: 50 (11/17/2019 09:56) Labs: Hgb A1c: Collection DT Spec A1C [...] <7.5% met: No Goal FBG 90-140mg/dL met: NO Goal HS <160mg/dL met: No Statin: YES - LDL at goal <100mg/dL Metformin: NO -CKD (renal doctor will not allow) --BG improved since last appt d/t better diet and increased insulin doses. HS readings still remain elevated d/t supper and HS snack (fruit) but are slowly improving as [place] is moderating his diet and slowly making changes --BMP - SCR improved slightly, fasted BG at goal Based on this information will, --continue insulin glargine 50 units --continue insulin aspart 20 units TID AC meals + CF (do exceed 25 Units) --ADD CORRECTION FACTOR BG 70-99: -2 UNITS BG 100-149: NORMAL DOSE BG 151-199: +1 UNITS BG 200-249: +2 UNITS BG 250-299: +3 UNITS BG 300-349: +4 UNITS BG >350: +5 UNITS --Continue aloglipitin 12.5mg daily 2. HTN Goal <150/90 met: yes -managed by non-VA Reports BP elevated when taken w/ machine but at goal when taken manually. 3. Refills: none 4. Return to TO-PHARM PACT 5 PHONE on or around ( Jan 26, 2020 ) for a total of 1 appointment(s) Prerequisites: No Labs 01/25 3pm Learner: Patient Readiness to Learn: Accepting Barriers to Learning Noted: No Barriers Preferred Learning Style: Lecture, Printed Material Preferred language for discussing health care: Vietnamese Time spent with pt: 30 min PBM PharmD Pharmacotherapy Rem V11: PHARMACIST INTERVENTIONS: TYPE 2 DIABETES MELLITUS Nonpharmacologic intervention chris /noa/ ELEUTERIO LIVINGSTON Clinical Tool Planner Signed: 12/14/2019 15:55 ELEUTERIO LIVINGSTON [facility]
--- OUTSIDE RECORDS SUMMARY | 2020-04-18 09:42 | XMS REPORT | Encounter Summary ---
Author Author Department [facility] SIMI palacio Organization Department [facility] Address [address] [place] [phone] Phone Unavailable Care Team Providers Care Shipping Lead Person Name Role Phone THOM CHAMBERS PCP Unavailable [...] FREEDOM MED REP (R) MEDICARE ADVANTAGE MCR ([facility]) Nov 09, 2017 [id number] [phone] SIMI COVARRUBIAS PATIENT ADVANTRA FREEDOM MED REP (WNR) MEDICARE ADVANTAGE MCR ([facility]) Nov 09, 2017 [id number] [phone] SIMI COVARRUBIAS PATIENT AETNA MCR (WNR) MEDICARE ADVANTAGE MCR ([facility]) Nov 09, 2019 [id number] SIMI COVARRUBIAS PATIENT Selected Encounter This section includes the information on record at [place] for the Encounter. Date/Time Encounter Type Encounter Description Reason Provider Source Dec 15, 2019 01:00 PM OFFICE/OUTPATIENT VISIT EST PRIMARY CARE/M EDICINE ICD-10-CM E29.1 Testicular hypofunction with Provider Comments: Testicular Hypofunction THOM CHAMBERS [facility] JANEE [facility] IHE Encounter Template Text not used by [place] Assessments - Encounter Diagnoses This section includes the primary and secondary diag noses documented for the Encounter. Date/Time Primary/Secondary Diagnosis Diagnosis Name Provider Source Dec 15, 2019 01:36 PM PRIMARY Testicular hypofunction Ro DAVID [facility] Plan of Treatment: Future Appointments (+ 6 months) and Future Tests (+/- 45 day s) The Plan of Treatment section includes future care activities for the patient fr om all [place] treatment facilities. This section includes future appointments and fu ture orders which are active, pending or scheduled. Future Appointments This section includes appointments that were scheduled t o occur 6 months from the date of the Encounter, up to a maximum of 20 appointme nts. The data comes from all [place] treatment facilities. Appointment Date/Time Appointment Type Appointment Facili ty Name Jan 12, 2020 10:00 AM AMBULATORY - NONE [facility] Jan 26, 2020 03:00 PM AMBULATORY - NONE [facility] Feb 29, 2020 02:30 PM AMBULATORY - NONE [facility] March 20, 2020 08:00 AM AMBULATORY - MEDICINE [facility]IC March 28, 2020 11:30 AM AMBULATORY - NONE [facility] Apr 19, 2020 11:00 AM AMBULATORY - NONE [facility] Apr 26, 2020 10:45 AM AMBULATORY - NONE [facility] 15 Surgical Procedures: All associated to the encounter No Data Provided for This Section Lab Results: +/- 30 days of the encounter This section includes the Chemistry and Hematology Lab R esults on record with [place] for the patient. Radiology Reports and Pathology Report s are provided separately, in subsequent sections. Lab Results This section contains the Chemistry/Hematology Results anushka t were resulted 30 days before or 30 days after the date of the Encounter. Date/Time Source Result Type Result - Unit Interpretation Reference Range Comment Dec 01, 2019 11:09 AM [facility] CBC & DIFF Specimen Type: BLOOD [...] 0.5 % Dec 01, 2019 11:09 AM [facility] RENAL FUNCTION PANEL Specimen Type: PLASMA [...] EGFR 46.5 Dec 01, 2019 11:09 AM [facility] URINALYSIS Specimen Type: URINE No comment [...] RBC/HPF 0-2 Dec 01, 2019 11:09 AM [facility] MAGNESIUM (mg/dL) Specimen Type: PLASMA No comment entered. MAGNESIUM (mg/dL) 2.4 mg/dl 1.6-2.6 Dec 01, 2019 11:09 AM [facility] HEPATIC FUNCTION PANE L Specimen Type: PLASMA No comment entered. PROTEIN,TOTAL 7.2 g/dL 6.0-8.6 ALBUMIN 4.5 g/dl 3.4-5.0 TOTAL BILIRUBIN 0.7 mg/dL 0.2-1.2 DIRECT BILIRUBIN 0.30 mg/dL 0-0.5 ASPARTATE TRANSAMINASE 29 U/L 5-34 ALANINE AMINOTRANSFERASE 20 U/L 8-40 ALKALINE PHOSPHATASE 98 U/L 40-150 Dec 01, 2019 11:09 AM [facility] MICROALBUMIN (CO,EK) Specimen Type: URINE No comment entered. *MICROALBUMIN(CONC) 116.8 mg/dL - *MICROALBUMIN(SPOT) 651.8 mcg/mg cr HH 0-29 *CREATININE mg/dL 179.2 mg/dl Not Avail. Dec 01, 2019 11:09 AM [facility] COMPREHENSIVE METABOL IC PANEL Specimen Type: [...] EGFR 46.5 Dec 01, 2019 11:09 AM [facility] TRAMADOL SCRN W/REFLE X,URINE Specimen Type: URINE Comment: normalcy status - Abnormal Tramadol Screen This test was performed using a forensic kit that is intended for the qualitative and semi- quantitative determination of Tramadol in human urine and has not been cleared or approved by the FDA for diagnostic purposes. The analytical performance characteristics of this test have been determined by [facility]. This test should not be used for diagnosis without confirmation by other, more specific, confirmatory analytical methodologies. Test performed by [facility] [address] [address] Qc Tech: Baron Domingo M.D.,Ph.D. Test Reported by [facility], [facility] [place], [address] [place], [place] Lawrence Mckeon M.D., Ph.D., Director of Laboratories , CLIA [id number] O-Desmethyltramadol This test was developed and its analytical performance characteristics have been determined by [facility]. It has not been cleared or approved by the US Food and Drug Administration. This assay has been validated pursuant to the CLIA regulations and is used for clinical purposes. *TRAMADOL SCREEN, URINE Positive Negati ve *TRAMADOL QUANT, URINE > 5000 ng/mL H < 10 0 *DESMETHYLTRAMADOL, URINE >5000 ng/mL H < 100 Dec 01, 2019 11:09 AM [facility] DRUGS OF ABUSE SCREEN Specimen Type: URINE No comment entered. AMPHETAMINE NEG Negative BARBITURATES NEG Negative BENZODIAZEPINES NEG Negative CANNABINOIDS NEG Negative COCAINE NEG Negative OPIATES NEG Negative PHENCYCLIDINE(PCP) NEG Negative *CREATININE,DRUG SCR 177.22 mg/dL METHADONE(UDS) NEG Negative OXYCODONE (URINE) NEG Negative ALCOHOL-URINE,RANDOM (SOSA,WI,EK) NEG mg/dL <10 Dec 01, 2019 11:09 AM [facility] URINALYSIS Specimen Type: URINE No comment [...] in Height Weight Body Mass Index Source Dec 15, 2019 01:28 PM 0 [facility] Dec 15, 2019 01:26 PM 98 F 55 /min 126/60 mm[Hg] 18 /min 96 % 0 180 lb 30 [facility] Immunizations: All administered on the encounter date No Data Provided for This Section Social History: Smoking Status (Most current) and Tobacco Use (All prior to enco unter date) This section includes the most current, and the historical, smoking and tobacco- related health factors from the [place] facility where the Encounter took place. Current Smoking Status This section includes the most current smoking, or tobacco -related health factor, from the [place] facility where the Encounter took place. Date/Time Current Smoking Status Comment Facility Nov 03, 2018 07:59 AM IN-TOBACCO QUIT 15 YRS OR MORE [facility] Tobacco Use History This section includes a history of the smoking, or tobacco -related health factors, that were collected on or before the date of the Encoun ter. The data comes from the [place] facility where the Encounter took place. Date/Time Smoking Status/Tobacco Use Comment [facility] it Nov 03, 2018 07:59 AM [place]-TOBACCO QUIT 15 YRS OR MORE [facility] Oct 23, 2017 07:35 AM TOBACCO LIFETIME NON-USER [facility] Advance Directives: All historical and current No Data Provided for This Section Allergies and Adverse Reactions (ADRs): All historical and current Section Date Range: From patient's date of to the date document was create d. This section includes Allergies and Adverse Reactions (ADR s) on record with VA for the patient. The data comes from a [facility] treatment facilities. It does not list Allergies/ADRs that were removed or entered in error. Some allergies/ADRs may be reported in t Immunization section. Allergen Event Date Event Type Reaction(s) Severity Source LISINOPRIL Dec 01, 2017 Propensity to adverse reactions to drug (disorder) Renal impairment [facility] 15 METFORMIN Dec 01, 2017 Propensity to adverse reactions to drug (disorder) Renal impairment [facility] 15 Medications: VA dispensed (-15 months) and Non-VA Documented (Obtained Outside A) Section Date Range: 1) prescriptions processed by a [place] pharmacy in the last 15 m [facility], and 2) all medications recorded in the [place] medical record as "non-VA medic ations". Pharmacy terms refer to VA pharmacy's work on prescriptions. VA patient s are advised to take their medications as instructed by their health care team. The data comes from all [place] treatment facilities. Glossary of Pharmacy Terms:Active = A prescription that can be filled at the local VA pharmacy.Active: On Hold = An active prescription that will not be filled until pharmacy resolves the issue.Active: Susp = An active prescription that is not scheduled to be filled yet.Clinic Order = A medication received during a visit to a [place] clinic or emergency department (currently not available).Discontinued [...] may be a prescription from either the [place] or other providers that was filled outside the [place]. Or, it may be an over the [...] TIMES A DAY 400 Sep 12, 2020 [id number] Feb 29, 2020 REGGIE LIVINGSTON [facility] ACCU-CHEK ROSINA PLUS (GLUCOSE) TEST STRIP Discontinued USE 1 STRIP FOR TESTING FOUR TIMES A DAY 400 Sep 15, 2019 [id number] Jun 13, 2019 ELEUTERIO MUARO [facility] ALCOHOL PREP PAD Discontinued USE 1 PAD ON SKIN FOUR TIMES A DAY 40 0 Apr 25, 2020 [id number] Nov 29, 2019 ELEUTERIO LIVINGSTON [facility] ALCOHOL PREP PAD Discontinued USE 1 PAD ON SKIN FOUR TIMES A DAY 40 0 Sep 15, 2019 [id number] Apr 18, 2019 ELEUTERIO LIVINGSTON [facility] ALLOPURINOL 100MG TAB Active TAKE ONE TABLET BY MOUTH ONCE A DAY FOR GOUT. TAKE WITH PLENTY OF WATER 90 Sep 23, 2020 [id number] Mar 05, 2020 [facility]VINA [facility] ALLOPURINOL 100MG TAB Discontinued TAKE ONE TABLET BY MOUTH ONCE A DAY FOR GOUT. TAKE WITH PLENTY OF WATER 90 Dec 30, 2019 [id number] Sep 17, [address] [facility] ALOGLIPTIN 12.5MG TAB Active TAKE ONE TABLET BY MOUTH O NCE A DAY FOR DIABETES 90 Sep 12, 2020 [id number] Mar 04, 2020 BALTRUSAELEUTERIO QUIGLEY RN [facility] [place] [facility] ALOGLIPTIN 12.5MG TAB Discontinued TAKE ONE TABLET BY MOUTH ONCE A DAY FOR DIABETES 90 Dec 22, 2019 [id number] Jun 18, [address] [facility] AMLODIPINE BESYLATE 10MG TAB Discontinued TAKE ONE TA BLET BY MOUTH EVERY MORNING FOR HEART/BLOOD PRESSURE 90 Jun 10, 2019 [id number] Feb 25, 2019 MONIKA RIVERA [facility] [place] [facility] AMLODIPINE BESYLATE 10MG TAB TAKE ONE TA BLET BY MOUTH EVERY MORNING FOR HEART/BLOOD PRESSURE 90 Apr 12, 2020 [id number] Feb 10, 2020 SILVINA CHAMBERS [facility] ASPIRIN 81MG TAB,CHEWABLE Non-VA CHEW ONE TABLET BY MOUTH ONCE A DAY Non-VA Documented by: MEGAN HAWK nted at: [facility] ATORVASTATIN CA 20MG TAB Active TAKE ONE TABLET BY MOUTH ONCE A DAY FOR CHOLESTEROL. REPORT ANY UNEXPLAINED MUSCLE PAIN OR WEAKNESS TO YOUR DOCTOR. 90 Jan 02, 2021 [id number] March 24, 2020 NELLA GROVE [facility] [place] 15 ATORVASTATIN CA 40MG TAB Discontinued TAKE ONE-HALF T ABLET BY MOUTH AT BEDTIME FOR CHOLESTEROL. REPORT ANY UNEXPLAINED MUSCLE PAIN OR WEAKNESS TO YOUR DOCTOR. 45 Jul 15, 2020 [id number] Oct 14, [address] [facility] ATORVASTATIN CA 40MG TAB Discontinued TAKE ONE-HALF T ABLET BY MOUTH AT BEDTIME FOR CHOLESTEROL. REPORT ANY UNEXPLAINED MUSCLE PAIN OR WEAKNESS TO YOUR DOCTOR. 45 Oct 12, 2019 [id number] Jul 16, [address] [facility] CALCIUM CARBONATE 500MG TAB,CHEWABLE Non-VA CHEW ONE TABLET BY MOUTH PRN Non-VA Documented by: THOM CHAMBERS nted at: [facility] CHLORTHALIDONE 25MG TAB Active TAKE ONE TABLET BY MOUTH ONCE A DAY 90 Jul 01, 2020 [id number] March 19, [address] [facility] CHLORTHALIDONE 25MG TAB Discontinued TAKE ONE TABLET BY MOUTH ONCE A DAY 90 Jun 16, 2019 [id number] Apr 12, [address] [facility] CHOLECALCIFEROL 1000UNT TAB Non-VA TAKE ONE TABLET BY MOUTH EVERY OTHER DAY Non-VA Docume nted by: MEGAN HAWK Docume nted at: [facility] CYANOCOBALAMIN 1000MCG/ML INJ Active INJECT 100 0 MCG (1 ML) INTRAMUSCULARLY EVERY MONTH FOR B12 SUPPLEMENTATION. 3 Nov 03, 2020 [id number] Apr 23, [address] [facility] CYANOCOBALAMIN 1000MCG/ML INJ Discontinued INJECT 100 0 MCG (1 ML) INTRAMUSCULARLY EVERY MONTH FOR B12 SUPPLEMENTATION. 3 Nov 17 0 [id number] Aug 07, [address] [facility] DIPHENHYDRAMINE HCL 25MG CAP Non-VA TAKE 1 CAPSULE BY MOUTH PRN Non-VA Documented by: THOM CHAMBERS nted at: [facility] DOCUSATE NA 100MG CAP No n-VA TAKE 2 CAPSULES BY MOUTH ONCE A DAY Non-VA Documented by: THOM CHAMBERS nted at: [facility] FISH OIL 1000MG (500MG DHA/EPA) CAP,ORAL Non-VA TAKE 1 CAPSULE BY MOUTH ONCE A DAY Non-VA Documented by: MEGAN HAWK Docume nted at: [facility] GABAPENTIN 100MG CAP Active TAKE 1 CAPSULE BY M OUTH EVERY MORNING AND TAKE 1 CAPSULE BY MOUTH AT NOON AND TAKE 2 CAPSULES BY MOUTH AT BEDTIME 360 Jul 06, 2020 [id number] March 31, 2020 BALTRUSAELEUTERIO QUIGLEY [facility] [place] [facility] GLUCAGON 1MG/GABRIELLA INJ,EMERGENCY KIT INJEC T 1MG SUBCUTANEOUSLY NEEDED FOR SEVERE HYPOGLYCEMIA 1 Nov 30, 2019 [id number] Nov 03, [address] [facility] INSULIN,ASPART,HUMAN 100U/ML,NOVOLOG,FLEXPEN,3ML Active: On Hold INJECT 20 UNITS SUBCUTANEOUSLY BEFORE BREAKFAST AND INJECT 20 UNITS BEFORE LUNCH AND INJECT 26 UNITS BEFORE SUPPER AND INJECT 24 UNITS SNACK FOR BLOOD SUGAR CONTROL. ADMINISTER 10 MINUTES BEFORE FOOD DIRECTED. REFRIGERATE UN-OPENED PENS. DISCARD CARTRIDGE 28 DAYS AFTER OPENING. PLUS CORRECTION Mar 01, 2021 [id number] YARAMETHODIST [facility] [place] [facility] INSULIN,ASPART,HUMAN 100U/ML,NOVOLOG,FLEXPEN,3ML Discontinue d INJECT 20 UNITS SUBCUTANEOUSLY BEFORE BREAKFAST AND INJECT 20 UNITS BEFORE LUNCH AND INJECT 24 UNITS BEFORE SUPPER AND INJECT 24 UNITS SNACK FOR BLOOD SUGAR CONTROL. ADMINISTER 10 MINUTES BEFORE FOOD DIRECTED. REFRIGERATE UN-OPENED PENS. DISCARD CARTRIDGE 28 DAYS AFTER OPENING. PLUS CORRECTION 30 Jan 26, 2021 [id number] Jan 28, 2020 YARAMETHODIST [facility] [place] [facility] INSULIN,ASPART,HUMAN 100U/ML,NOVOLOG,FLEXPEN,3ML Discontinue d INJECT 20 UNITS SUBCUTANEOUSLY BEFORE MEALS FOR BLOOD SUGAR CONTROL. ADMINISTER 10 MINUTES BEFORE FOOD DIRECTED. REFRIGERATE UN-OPENED PENS. DISCARD CARTRIDGE 28 DAYS AFTER OPENING. PLUS CORRECTION FOR BLOOD SUGAR CONTROL. ADMINISTER 10 MINUTES BEFORE FOOD DIRECTED. REFRIGERATE UN-OPENED PENS. DISCARD CARTRIDGE 28 DAYS AFTER OPENING. PLUS CORRECTION 30 Nov 16, 2020 [id number] Nov 16 YARAMETHODIST [facility] [place] [facility] INSULIN,ASPART,HUMAN 100U/ML,NOVOLOG,FLEXPEN,3ML Discontinue d INJECT 15 UNITS SUBCUTANEOUSLY EVERY MORNING BEFORE MEAL AND INJECT 15 UNITS WITH LUNCH AND INJECT 15 UNITS WITH SUPPER AND INJECT 20 UNITS WITH SNACK FOR BLOOD SUGAR CONTROL. ADMINISTER 10 MINUTES BEFORE FOOD DIRECTED. REFRIGERATE UN-OPENED PENS. DISCARD CARTRIDGE 28 DAYS AFTER OPENING. Dec 22, 2019 5 [id number] Oct 12, 2019 YARAMETHODIST [facility] [place] [facility] INSULIN,GLARGINE,HUMAN 100 UNIT/ML INJ,SOLOSTAR,3ML Active INJECT 50 UNITS SUBCUTANEOUSLY EVERY MORNING FOR BLOOD SUGAR CONTROL. ADMINISTER AT SAME TIME EACH DAY DIRECTED. DISCARD ANY OPEN CARTRIDGE AFTER 28 DAYS. Sep 23, 2020 [id number] Jan 28, 2020 CRYSTALUSADANNMETHODIST [facility] INSULIN,GLARGINE,HUMAN 100 UNIT/ML INJ,SOLOSTAR,3ML Disconti nued INJECT 45 UNITS SUBCUTANEOUSLY EVERY MORNING FOR BLOOD SUGAR CONTROL. ADMINISTER AT SAME TIME EACH DAY DIRECTED. DISCARD ANY OPEN CARTRIDGE AFTER 28 DAYS. 15 Oct 23, 2019 [id number] Aug 30, [address] [facility] LACTOBACILLUS ACIDOPHILUS TAB,CHEWABLE Non-VA CHEW ONE TABLET BY MOUTH ONCE A DAY Non-VA Documented by: MEGAN HAWK nted at: [facility] LANCET,SOFTCLIX Active USE LANCET 5 TIME S A DAY FOR TESTING BLOOD GLUCOSE DIRECTED 500 Dec 28, 2020 [id number] March 19, [address] [facility] LANCET,SOFTCLIX Discontinued USE LANCET 5 TIME S A DAY FOR TESTING BLOOD GLUCOSE DIRECTED 500 Jan 11, 2020 [id number] Sep 29, 2019 ELEUTERIO PATEL Laron [facility] MAGNESIUM OXIDE 400MG TAB Non-VA TAKE ONE TABLET BY MOUTH ONCE A DAY Non-VA Documented by: MEGNA HAWK nted at: [facility] METOPROLOL SUCCINATE 200MG TAB,SA TAKE O NE-HALF TABLET BY MOUTH EVERY EVENING FOR HEART/BLOOD PRESSURE. SWALLOW WHOLE, DO NOT CRUSH OR CHEW (TABLETS MAY BE CUT IN HALF). 45 March 18, 2020 [id number] Dec 28, 2019 STANISLAV HAMMER [facility] NEEDLE 22G 1.5IN USE NEEDLE FOR EVERY MONTH Nov 12, 2019 [id number] Feb 07, [address] [facility] NEEDLE,PEN 31G,5MM Discontinued USE NEEDLE SUBCUTANE OUSLY 5 TIMES A DAY - THIS IS A SINGLE USE NEEDLE AND SHOULD BE DISCARDED AFTER USE 500 Dec 21, 2019 [id number] Sep 28, [address] [facility] [place] POTASSIUM CHLORIDE 10MEQ TAB,SA Active TAKE TWO TABLETS BY MOUTH TWO TIMES A DAY FOR POTASSIUM SUPPLEMENTATIONTAKE WITH FOOD 360 Dec 12, 2020 [id number] Mar 02, 2020 YANELY QUINTERO [facility] 15 POTASSIUM CHLORIDE 10MEQ TAB,SA Discontinued TAKE ONE TABLET BY MOUTH THREE TIMES A DAY WITH MEALS FOR POTASSIUM SUPPLEMENTATIONTAKE WITH FOOD 180 March 16, 2020 [id number] Nov 29, 2019 BALTRUSAITIS,[facility]ERIO [facility] [place] [facility] POTASSIUM CHLORIDE 10MEQ TAB,SA Discontinued TAKE ONE TABLET BY MOUTH THREE TIMES A DAY WITH MEALS FOR POTASSIUM SUPPLEMENTATIONTAKE WITH FOOD 180 May 26, 2019 [id number] Jan 24, 2019 YANELY QUINTERO [facility] [place] [facility] SYRINGE 2.5-3ML/NDL 25G 1IN Active USE 1 SYRINGE EVERY MONTH 3 Feb 21, 2021 [id number] March 20, 2020 [facility] SYRINGE 2.5-3ML/NDL 25G 1IN Discontinued USE 1 SYRINGE EVERY Thu 3 March 18, 2020 [id number] Dec 21, 2019 [facility] TESTOSTERONE CYPIONATE 200MG/ML INJ,1ML (IN OIL) Active INJECT 200 MG (1 ML) INTRAMUSCULARLY EVERY MONTH FOR HORMONE REPLACEMENT 1 May 18, 2020 [id number] April 06, [address] [facility] TESTOSTERONE CYPIONATE 200MG/ML INJ,1ML (IN OIL) Discontinue d INJECT 200 MG (1 ML) INTRAMUSCULARLY EVERY MONTH FOR HORMONE REPLACEMENT 1 March 25, 2020 [id number] Oct 25, [address] [facility] TESTOSTERONE CYPIONATE 200MG/ML INJ,1ML (IN OIL) Discontinue d INJECT 200 MG (1 ML) INTRAMUSCULARLY EVERY MONTH FOR HORMONE REPLACEMENT 1 Nov 06, 2019 [id number] Sep 25, [address] [facility] TESTOSTERONE CYPIONATE 200MG/ML INJ,1ML (IN OIL) Discontinue d INJECT 200 MG (1 ML) INTRAMUSCULARLY EVERY MONTH FOR HORMONE REPLACEMENT 1 May 14, 2019 [id number] Apr 10, [address] [facility] TRAMADOL HCL 50MG TAB Active TAKE 1 TO 2 TABLET S BY MOUTH EVERY 6 HOURS NEEDED FOR PAIN 180 Jul 21, 2020 [id number] March 30, 2020 NELLA GROVE [facility] 15 TRAMADOL HCL 50MG TAB Discontinued TAKE 1 TO 2 TABLET S BY MOUTH EVERY 6 HOURS NEEDED FOR PAIN 180 Jun 06, 2020 [id number] Jan 11, 2020 ROSSY GROVE Rocky [facility] [place] 15 TRAMADOL HCL 50MG TAB Discontinued TAKE 1 TO 2 TABLET S BY MOUTH EVERY 6 HOURS NEEDED FOR PAIN 180 Jun 06, 2020 [id number] Dec 06, 2019 ROSSY GROVE [facility] 15 TRAMADOL HCL 50MG TAB Discontinued TAKE 1 TO 2 TABLET S BY MOUTH EVERY 6 HOURS NEEDED FOR PAIN 180 Dec 14, 2019 [id number] Nov 15, [address] [facility] [place] [facility] TRAMADOL HCL 50MG TAB Discontinued TAKE 1 TO 2 TABLET S BY MOUTH EVERY 6 HOURS NEEDED FOR PAIN 180 Jul 06, 2019 [id number] May 26, 2019 GROVE,ROSSY [facility] [place] [facility] TRIAMCINOLONE ACETONIDE 0.5% CREAM,TOP Active A PPLY SPARINGLY TO AFFECTED AREA ONCE A DAY NEEDED FOR RASH 45 Jul 15, 2020 [id number] April 01 0 [facility] [place] [facility] TRIAMCINOLONE ACETONIDE 0.5% CREAM,TOP Discontinued A PPLY SPARINGLY TO AFFECTED AREA ONCE A DAY NEEDED FOR RASH 45 Oct 12, 2019 [id number] Jul [facility] [place] [facility] Problems (Conditions): All historical and current Section Date Range: From patient's date of to the date document was create d. This section includes a list of Problems (Conditions) know n to [place] for the patient. It includes both active and inacti ve problems (conditions). The data comes from all [place] treatment facilities. Problem Status Problem Code Date of Onset Date of Resolution Comm ent(s) Provider Source Basal cell carcinoma of scalp Active [id number] REYES,DANA [facility] Chronic back pain [facility] [id number] [facility] [place] [facility] Chronic kidney disease stage 3 Active [id number] [facility] [place] [facility] Constipation Active [id number] THOM CHAM[facility] [place] [facility] Diabetes mellitus Active [id number] [facility] [place] [facility] Diabetic neuropathy Active [id number] Neha CHAMBERS [facility] [place] [facility] Essential hypertension Active [id number] THOM CHAMBERS [facility] [place] [facility] Hyperlipidemia Active 99000829 [facility] [place] [facility] Hypogonadism Active 79458142 [facility] [place] Sleep apnea Active 88578550 [facility] [place] Radiology Reports: +/- 30 days of the encounter No Data Provided for This Section Pathology Reports: +/- 30 days of the encounter No Data Provided for This Section Encounter Notes: All associated encounter notes This section contains the clinical notes associated to the Encounter. Date/Time Encounter Note(s) Provider Source Dec 15, 2019 01:27 PM NURSING OUTPATIENT NOTE: LOCAL TITLE: [facility]-NURSING CLINIC CHECK-IN STANDARD TITLE: NURSING OUTPATIENT NOTE DATE OF NOTE: DEC 15, 2019@13:27 ENTRY DATE: DEC 15, 2019@13:27:32 AUTHOR: DARIO DUNCAN COSIGNER: URGENCY: STATUS: COMPLETED EK-NURSING CLINIC CHECK-IN Has ADDENDA Travel Screen: The patient indicated that they or their close contacts have not traveled outside of the [place] in the past 21 days. PRIMARY REASON FOR VISIT TODAY: [place] Testosterone inj PATIENT'S GOAL/MISSION FOR THEIR HEALTH: be healthy ALLERGIES/ADR: METFORMIN, LISINOPRIL VITALS: DATE/TIME TEMP PULSE RESP BP PAIN WEIGHT PUL OX 12/15/19 @ 1326 98 55 18 126/60 0 180 96 REPRODUCTIVE HISTORY: Concerns regardng sexual/reproductive health: None MEDICATION RECONCILIATION: Copy of current medication list on file provided for patient. Instructed to compare with all medications they are currently taking, and to review /discuss discrepancies with provider. LEARNING ASSESSMENT: Patient's preferred language for discussing health care is: Turkish Today's learning assessment regarding patient's readiness to learn. Patient reads well. Barriers to Learning: Has no barriers to learning. Preferred Method of Learning: Reading Listening Seeing / Videos Demonstration Return Demonstration Hands On/Doing Education provided as per documentation below: SCREENING FOR PAIN STATUS: Patient reported pain level as 0 (12/15/2019 13:26) on 0 to 10 scale. * Today's Pain Level: 0 Pain Scale used: Numerical Pain Scale Patient states current level of pain is: Acceptable Location of pain that most interferes with your life: none Verbal Education Provided: To patient Understanding of education: Patient: Good Patient Support [...] medication refill requests and other non-urgent communication. N:Alcohol Use Screen (AUDIT-C) : Alcohol Screen: SCREEN FOR ALCOHOL (AUDIT-C) An alcohol screening test (AUDIT-C) was negative (score=1). 1. How often did you have a drink containing alcohol in the past year? Monthly or less 2. How many drinks containing alcohol did you have on a typical day when you were drinking in the past year? 0 drinks 3. How often did you have six or more drinks on one occasion in the past year? Never N:Depression Screening : PHQ-2+I9 Depression Screening Score: 0 The score on this administration is 0, which indicates a negative screen on the Depression Scale over the past two weeks. Suicide Screening Score: 0 The results of this administration indicates a NEGATIVE primary screen for Risk of Suicide over the last 2 weeks. Over the past two weeks, how often have you been bothered by the following problems? 1. Little interest or pleasure in doing things Not at all 2. Feeling down, depressed, or hopeless Not at all 3. Thoughts that you would be better off or of hurting yourself in some way Not at all N:Pressure Ulcer Risk Screening: Mobility/Friction/Shear - Patient requires assistance for changing position when in bed or chair? No Activity - Patient is confined to bed or requires a wheelchair as their only or primary method of ambulation? No History of Pressure Ulcer - Patient has current/previous wounding over a bony prominence or wounding caused by a medical territory manager? No Moisture - Patient has difficulty controlling bowel or bladder functions? No Nutrition - Patient has had significant weight loss in the past 6 months (10% or more of usual body weight)? No All responses are negative. Screening for risk is negative. N:Relationship Health and Safety: Ask the [place] the following questions: In the past 12 months did a current or former intimate partner (e.g) boyfriend, girlfriend, , , sexual partner): Scream or curse at you No Insult or talk down to you No Threaten you with harm No Physically hurt you No Force or Pressure you to have sexual Contact against your will, or when you were Unable to say no No Note: If All no's provide with contact information for IPV Coordinator and National Domestic Violence Hotline 9-929-831-QHAZ (4654) or www.FileThis. /noa/ DARIO DUNCAN LPN Signed: 12/15/2019 13:36 12/15/2019 ADDENDUM STATUS: COMPLETED OTHER OBSERVATION/INTERVENTION: Pt in clinic today for: Testosterone injection Pt [place] [facility]. Patient identity verified using 2 forms of ID: Name and Medication given: Testosterone 200 mg (1 ml) Order Verified:11/16/2019 Route: IM Location: LEFT [facility] Mfg: M[employer]ople[employer] Lot#: [id number] Exp: 02/2021 Dx: hypogonadism Initiated: Received locally until 01/07/19, then from [place]. Pt rock injection w/o difficulty. /noa/ DARIO DUNCAN LPN Signed: 12/15/2019 13:41 DARIO DUNCAN [facility]
--- OUTSIDE RECORDS SUMMARY | 2020-04-18 09:47 | XMS REPORT | Encounter Summary ---
Author Author [facility] Address [address] [place] [phone] Phone Unavailable Care Team Providers Care Template Inspector Name Role Phone REYES THOM PCP [...] to Policy Woodard [facility] RE[facility] ([facility]) MEDICARE ADVANTAGE MCR ([facility]) Nov 09, 2017 [id number] [phone] SIMI COVARRUBIAS PATIENT [facility] REP ([facility]) MEDICARE ADVANTAGE MCR ([facility]) Nov 09, 2017 [id number] [phone] SIMI COVARRUBIAS PATIENT AETNA MCR ([facility]) MEDICARE ADVANTAGE MCR ([facility]) Nov 09, 2019 [id number] [id number] SIMI COVARRUBIAS PATIENT Selected Encounter This section includes the information on record at [place] for the Encounter. Date/Time Encounter Type Encounter Description Reason Provider Source Dec 05, 2019 03:52 PM Outpatient Encounter TELEPHONE/ANCILLARY [facility] Encounter Template Text not used [...] appointme nts. The data comes from all [place] treatment [facility]. Appointment Date/Time Appointment Type Appointment Facili ty Name Dec 14, 2019 03:00 PM AMBULATORY - NONE [facility] Dec 15, 2019 01:00 PM AMBULATORY - NONE [facility] Jan 12, 2020 10:00 AM AMBULATORY - NONE [facility] Jan 26, 2020 03:00 PM AMBULATORY - NONE [facility] Feb 29, 2020 02:30 PM AMBULATORY - NONE [facility] March 20, 2020 08:00 AM AMBULATORY - MEDICINE [facility] March 28, 2020 11:30 AM AMBULATORY - NONE [facility] Apr 19, 2020 11:00 AM AMBULATORY - NONE [facility] Apr 26, 2020 10:45 AM AMBULATORY - NONE [facility], [facility] 15 Surgical Procedures: All associated to the encounter No Data Provided for This Section Lab Results: +/- 30 days of the encounter This section includes the Chemistry and Hematology Lab R esults on record with [place] for the patient. Radiology Reports and Pathology Report s are provided separately, in subsequent sections. Lab Results This section contains the Chemistry/Hematology Results anushka t were resulted 30 days before or 30 days after the date of the Encounter. Date/Time Source Result Type Result - Unit Interpretation Reference Range Comment Dec 01, 2019 11:09 AM [facility] CBC & DIFF Specimen Type: BLOOD No [...] 0.5 % Dec 01, 2019 11:09 AM [facility] RENAL FUNCTION PANEL Specimen Type: PLASMA No comment entered. *CREATININE 1.48 mg/dL H 0.7-1.3 UREA NITROGEN mg/dL 19 mg/dL 9-25 GLUCOSE 99 mg/dL 72-99 SODIUM 143 mEq/L 136-145 POTASSIUM 3.4 mEq/L L 3.5-5.0 CALCIUM (mg/dL) 10.0 mg/dL 8.4-10.4 PHOSPHORUS INORGANIC 2.6 mg/dL 2.3-4.7 ALBUMIN 4.5 g/dl 3.4-5.0 CHLORIDE 101 mEq/L 98-107 CO2 34 mEq/L H 22-31 EGFR 46.5 Dec 01, 2019 11:09 AM [facility] URINALYSIS Specimen Type: URINE No comment entered. [...] RBC/HPF 0-2 Dec 01, 2019 11:09 AM [facility] MAGNESIUM (mg/dL) Specimen Type: PLASMA No comment entered. MAGNESIUM (mg/dL) 2.4 mg/dl 1.6-2.6 Dec 01, 2019 11:09 AM [facility] HEPATIC FUNCTION PANE L Specimen Type: PLASMA No comment entered. PROTEIN,TOTAL 7.2 g/dL 6.0-8.6 ALBUMIN 4.5 g/dl 3.4-5.0 TOTAL BILIRUBIN 0.7 mg/dL 0.2-1.2 DIRECT BILIRUBIN 0.30 mg/dL 0-0.5 ASPARTATE TRANSAMINASE 29 U/L 5-34 ALANINE AMINOTRANSFERASE 20 U/L 8-40 ALKALINE PHOSPHATASE 98 U/L 40-150 Dec 01, 2019 11:09 AM [facility] MICROALBUMIN (CO,EK) Specimen Type: URINE No comment entered. *MICROALBUMIN(CONC) 116.8 mg/dL - *MICROALBUMIN(SPOT) 651.8 mcg/mg cr HH 0-29 *CREATININE mg/dL 179.2 mg/dl Not Avail. Dec 01, 2019 11:09 AM [facility] COMPREHENSIVE METABOL IC PANEL Specimen Type: PLASMA [...] EGFR 46.5 Dec 01, 2019 11:09 AM [facility] TRAMADOL SCRN W/REFLE X,URINE Specimen Type: URINE Comment: normalcy status - Abnormal Tramadol Screen This test was performed using a forensic kit that is intended for the qualitative and semi- quantitative determination of Tramadol in human urine and has not been cleared or approved by the FDA for diagnostic purposes. The analytical performance characteristics of this test have been determined by [facility]. This test should not be used for diagnosis without confirmation by other, more specific, confirmatory analytical methodologies. Test performed by [facility] [address] [address] Engagement Executive: Baron Domingo M.D.,Ph.D. Test Reported by [facility] Kay[place]e, [facility], [address] [place], [place] Lawrence Mckeon M.D., Ph.D., Director of Laboratories , CLIA [id number] O-Desmethyltramadol This test was developed and its analytical performance characteristics have been determined by [facility]. It has not been cleared or approved by the US Food and Drug Administration. This assay has been validated pursuant to the CLIA regulations and is used for clinical purposes. *TRAMADOL SCREEN, URINE Positive Negati ve *TRAMADOL QUANT, URINE > 5000 ng/mL H < 10 0 *DESMETHYLTRAMADOL, URINE >5000 ng/mL H < 100 Dec 01, 2019 11:09 AM [facility] DRUGS OF ABUSE SCREEN Specimen Type: URINE No comment entered. AMPHETAMINE NEG Negative BARBITURATES NEG Negative BENZODIAZEPINES NEG Negative CANNABINOIDS NEG Negative COCAINE NEG Negative OPIATES NEG Negative PHENCYCLIDINE(PCP) NEG Negative *CREATININE,DRUG SCR 177.22 mg/dL METHADONE(UDS) NEG Negative OXYCODONE (URINE) NEG Negative ALCOHOL-URINE,RANDOM (SOSA,WI,EK) NEG mg/dL <10 Dec 01, 2019 11:09 AM [facility] URINALYSIS Specimen Type: URINE No comment entered. [...] 10, 2019 11:39 AM [facility] HEMOGLOBIN A1C Specimen Type: BLOOD No comment entered. HEMOGLOBIN A1C 10.6 % H 4.0-6.0 Nov 10, 2019 11:39 AM [facility] BASIC METABOLIC PANEL Specimen Type: PLASMA No comment entered. *CREATININE 1.60 mg/dL H 0.7-1.3 UREA NITROGEN mg/dL 24 mg/dL 9-25 GLUCOSE 226 mg/dL H 72-99 SODIUM 140 mEq/L 136-145 POTASSIUM 3.9 mEq/L 3.5-5.0 CALCIUM (mg/dL) 9.3 mg/dL 8.4-10.4 CHLORIDE 101 mEq/L 98-107 CO2 29 mEq/L 22-31 EGFR 42.6 Nov 10, 2019 11:39 AM [facility] [employer] TESTOSTERONE (SOSA ,WI,EK) Specimen Type: SERUM No comment entered. TESTOSTERONE (,WI,EK) 371 ng/dL 221-87 1 Nov 10, 2019 11:39 AM [facility] [employer] CBC & DIFF Specimen Type: BLOOD No [...] 10, 2019 11:39 AM [facility] [employer] PROSTATIC SP ECIFIC ANTIGEN(TOTAL) Sp ecimen Type: [...] Adverse Reactions (ADR s) on record with [place] for the patient. The data comes from a ll [place] treatment facilities. It does not list Allergies/ADRs that were removed or entered in error. Some allergies/ADRs may be reported in t Immunization section. Allergen Event Date Event Type Reaction(s) Severity Source LISINOPRIL Dec 01, 2017 Propensity to adverse reactions to drug (disorder) Renal impairment [facility] 15 METFORMIN Dec 01, 2017 Propensity to adverse reactions to drug (disorder) Renal impairment [facility] 15 Medications: VA dispensed (-15 months) and Non-VA Documented (Obtained Outside V A) Section Date Range: 1) prescriptions processed by a VA pharmacy in the last 15 m [facility], and 2) all medications recorded in the [...] medication received during a visit to a VA clinic or emergency department (currently not available).Discontinued [...] other providers that was filled outside the [place]. Or, it may be an over the [...] TIMES A DAY 400 Sep 12, 2020 [id number] Feb 29, 2020 [facility] ROSINA PLUS (GLUCOSE) TEST STRIP Discontinued USE 1 STRIP FOR TESTING FOUR TIMES A DAY 400 Sep 15, 2019 [id number] Jun 13, 2019 [facility] ALCOH[facility]AD Discontinued USE 1 PAD ON SKIN FOUR TIMES A DAY 40 0 Apr 25, 2020 [id number] Nov 29, 2019 YARAELEUTERIO Laron [facility] ALCOHOL PREP PAD Discontinued USE 1 PAD ON SKIN FOUR TIMES A DAY 40 0 Sep 15, 2019 [id number] Apr 18, 2019 YARAELEUTERIO Laron [facility] ALLOPURINOL 100MG TAB Active TAKE ONE TABLET BY MOUTH ONCE A DAY FOR GOUT. TAKE WITH PLENTY OF WATER 90 Sep 23, 2020 [id number] Mar 05, 2020 SILVINA CHAMBERS [facility] ALLOPURINOL 100MG TAB Discontinued TAKE ONE TABLET BY MOUTH ONCE A DAY FOR GOUT. TAKE WITH PLENTY OF WATER 90 Dec 30, 2019 [id number] Sep 17, 2019 THOM SHARPE [facility] ALOGLIPTIN 12.5MG TAB Active TAKE ONE TABLET BY MOUTH O NCE A DAY FOR DIABETES 90 Sep 12, 2020 [id number] Mar 04, 2020 ELEUTERIO LIVINGSTON [facility] [place] [facility] ALOGLIPTIN 12.5MG TAB Discontinued TAKE ONE TABLET BY MOUTH ONCE A DAY FOR DIABETES 90 Dec 22, 2019 [id number] Jun 18, 2019 ELEUTERIO LIVINGSTON [facility] AMLODIPINE BESYLATE 10MG TAB Discontinued TAKE ONE TA BLET BY MOUTH EVERY MORNING FOR HEART/BLOOD PRESSURE 90 Jun 10, 2019 [id number] Feb 25, 2019 MONIKA HAMMER [facility] AMLODIPINE BESYLATE 10MG TAB TAKE ONE TA BLET BY MOUTH EVERY MORNING FOR HEART/BLOOD PRESSURE 90 Apr 12, 2020 [id number] Feb 10, 2020 SILVINA CHAMBERS [facility] ASPIRIN 81MG TAB,CHEWABLE Non-VA CHEW ONE TABLET BY MOUTH ONCE A DAY Non-VA Documented by: MEGAN HAWK nted at: [facility] ATORVASTATIN CA 20MG TAB Active TAKE ONE TABLET BY MOUTH ONCE A DAY FOR CHOLESTEROL. REPORT ANY UNEXPLAINED MUSCLE PAIN OR WEAKNESS TO YOUR DOCTOR. 90 Jan 02, 2021 [id number] March 24, 2020 [place], [place] 15 ATORVASTATIN CA 40MG TAB Discontinued TAKE ONE-HALF T ABLET BY MOUTH AT BEDTIME FOR CHOLESTEROL. REPORT ANY UNEXPLAINED MUSCLE PAIN OR WEAKNESS TO YOUR DOCTOR. 45 Jul 15, 2020 [id number] Oct 14, 2019 THOM CHAMBERS [facility] ATORVASTATIN CA 40MG TAB Discontinued TAKE ONE-HALF T ABLET BY MOUTH AT BEDTIME FOR CHOLESTEROL. REPORT ANY UNEXPLAINED MUSCLE PAIN OR WEAKNESS TO YOUR DOCTOR. 45 Oct 12, 2019 [id number] Jul 16, 2019 THOM CHAMBERS [facility] CALCIUM CARBONATE 500MG TAB,CHEWABLE Non-VA CHEW ONE TABLET BY MOUTH PRN Non-VA Documented by: THOM CHAMBERS Docume nted at: [facility] CHLORTHALIDONE 25MG TAB Active TAKE ONE TABLET BY MOUTH ONCE A DAY 90 Jul 01, 2020 [id number] March 19, 2020 MONIKA HAMMER [facility] [place] [facility] CHLORTHALIDONE 25MG TAB Discontinued TAKE ONE TABLET BY MOUTH ONCE A DAY 90 Jun 16, 2019 [id number] Apr 12, 2019 MONIKA HAMMER [facility] [facility] CHOLECALCIFEROL 1000UNT TAB Non-VA TAKE ONE TABLET BY MOUTH EVERY OTHER DAY Non-VA Docume nted by: MEGAN HAWK nted at: [facility] CYANOCOBALAMIN 1000MCG/ML INJ Active INJECT 100 0 MCG (1 ML) INTRAMUSCULARLY EVERY MONTH FOR B12 SUPPLEMENTATION. 3 Nov 03, 2020 [id number] Apr 23, 2020 THOM CHAMBERS [facility] CYANOCOBALAMIN 1000MCG/ML INJ Discontinued INJECT 100 0 MCG (1 ML) INTRAMUSCULARLY EVERY MONTH FOR B12 SUPPLEMENTATION. 3 Nov 17 0 [id number] Aug 07, 2019 THOM CHAMBERS [facility] DIPHENHYDRAMINE HCL 25MG CAP Non-VA TAKE 1 CAPSULE BY MOUTH PRN Non-VA Documented by: THOM CHAMBERS nted at: [facility] DOCUSATE NA 100MG CAP No n-VA TAKE 2 CAPSULES BY MOUTH ONCE A DAY Non-VA Documented by: THOM CHAMBERS nted at: [facility] FISH OIL 1000MG (500MG DHA/EPA) CAP,ORAL Non-VA TAKE 1 CAPSULE BY MOUTH ONCE A DAY Non-VA Documented by: MEGAN HAWK nted at: [facility] GABAPENTIN 100MG CAP Active TAKE 1 CAPSULE BY M OUTH EVERY MORNING AND TAKE 1 CAPSULE BY MOUTH AT NOON AND TAKE 2 CAPSULES BY MOUTH AT BEDTIME 360 Jul 06, 2020 [id number] March 31, 2020 ELEUTERIO LIVINGSTON [facility] GLUCAGON 1MG/GABRIELLA INJ,EMERGENCY KIT INJEC T 1MG SUBCUTANEOUSLY NEEDED FOR SEVERE HYPOGLYCEMIA 1 Nov 30, 2019 [id number] Nov 03, 2019 THOM CHAMBERS [facility] INSULIN,ASPART,HUMAN 100U/ML,NOVOLOG,FLEXPEN,3ML Active: On Hold INJECT 20 UNITS SUBCUTANEOUSLY BEFORE BREAKFAST AND INJECT 20 UNITS BEFORE LUNCH AND INJECT 26 UNITS BEFORE SUPPER AND INJECT 24 UNITS SNACK FOR BLOOD SUGAR CONTROL. ADMINISTER 10 MINUTES BEFORE FOOD DIRECTED. REFRIGERATE UN-OPENED PENS. DISCARD CARTRIDGE 28 DAYS AFTER OPENING. PLUS CORRECTION Mar 01, 2021 [id number] ELEUTERIO LIVINGSTON [facility] [place] [facility] INSULIN,ASPART,HUMAN 100U/ML,NOVOLOG,FLEXPEN,3ML Discontinue d INJECT 20 UNITS SUBCUTANEOUSLY BEFORE BREAKFAST AND INJECT 20 UNITS BEFORE LUNCH AND INJECT 24 UNITS BEFORE SUPPER AND INJECT 24 UNITS SNACK FOR BLOOD SUGAR CONTROL. ADMINISTER 10 MINUTES BEFORE FOOD DIRECTED. REFRIGERATE UN-OPENED PENS. DISCARD CARTRIDGE 28 DAYS AFTER OPENING. PLUS CORRECTION 30 Jan 26, 2021 [id number] Jan 28, 2020 ELEUTERIO LIVINGSTON [facility] INSULIN,ASPART,HUMAN 100U/ML,NOVOLOG,FLEXPEN,3ML Discontinue d INJECT 20 UNITS SUBCUTANEOUSLY BEFORE MEALS FOR BLOOD SUGAR CONTROL. ADMINISTER 10 MINUTES BEFORE FOOD DIRECTED. REFRIGERATE UN-OPENED PENS. DISCARD CARTRIDGE 28 DAYS AFTER OPENING. PLUS CORRECTION FOR BLOOD SUGAR CONTROL. ADMINISTER 10 MINUTES BEFORE FOOD DIRECTED. REFRIGERATE UN-OPENED PENS. DISCARD CARTRIDGE 28 DAYS AFTER OPENING. PLUS CORRECTION 30 Nov 16, 2020 [id number] Nov 16 ELEUTERIO LIVINGSTON [facility] INSULIN,ASPART,HUMAN 100U/ML,NOVOLOG,FLEXPEN,3ML Discontinue d INJECT 15 UNITS SUBCUTANEOUSLY EVERY MORNING BEFORE MEAL AND INJECT 15 UNITS WITH LUNCH AND INJECT 15 UNITS WITH SUPPER AND INJECT 20 UNITS WITH SNACK FOR BLOOD SUGAR CONTROL. ADMINISTER 10 MINUTES BEFORE FOOD DIRECTED. REFRIGERATE UN-OPENED PENS. DISCARD CARTRIDGE 28 DAYS AFTER OPENING. Dec 22, 2019 [id number] Oct 12, 2019 ELEUTERIO LIVINGSTON [facility] [facility] INSULIN,GLARGINE,HUMAN 100 UNIT/ML INJ,SOLOSTAR,3ML Active INJECT 50 UNITS SUBCUTANEOUSLY EVERY MORNING FOR BLOOD SUGAR CONTROL. ADMINISTER AT SAME TIME EACH DAY DIRECTED. DISCARD ANY OPEN CARTRIDGE AFTER 28 DAYS. Sep 23, 2020 [id number] Jan 28, 2020 ELEUTERIO LIVINGSTON [facility] INSULIN,GLARGINE,HUMAN 100 UNIT/ML INJ,SOLOSTAR,3ML Disconti nued INJECT 45 UNITS SUBCUTANEOUSLY EVERY MORNING FOR BLOOD SUGAR CONTROL. ADMINISTER AT SAME TIME EACH DAY DIRECTED. DISCARD ANY OPEN CARTRIDGE AFTER 28 DAYS. Oct 23, 2019 [id number] Aug 30, 2019 ELEUTERIO LIVINGSTON [facility] LACTOBACILLUS ACIDOPHILUS TAB,CHEWABLE Non-VA CHEW ONE TABLET BY MOUTH ONCE A DAY Non-VA Documented by: MEGAN HAWKed at: [facility] LANCET,SOFTCLIX Active USE LANCET 5 TIME S A DAY FOR TESTING BLOOD GLUCOSE DIRECTED 500 Dec 28, 2020 [id number] March 19, 2020 [facility] LANCET,SOFTCLIX Discontinued USE LANCET 5 TIME S A DAY FOR TESTING BLOOD GLUCOSE DIRECTED 500 Jan 11, 2020 [id number] Sep 29, 2019 [place] ITIS,ELEUTERIO Larry [facility] [place] [facility] MAGNESIUM OXIDE 400MG TAB Non-VA TAKE ONE TABLET BY MOUTH ONCE A DAY Non-VA Documented by: MEGAN HAWK nted at: [facility] METOPROLOL SUCCINATE 200MG TAB,SA TAKE O NE-HALF TABLET BY MOUTH EVERY EVENING FOR HEART/BLOOD PRESSURE. SWALLOW WHOLE, DO NOT CRUSH OR CHEW (TABLETS MAY BE CUT IN HALF). 45 March 18, 2020 [id number] Dec 28, 2019 STANISLAV HAMMER [facility] NEEDLE 22G 1.5IN USE NEEDLE FOR EVERY MONTH 1 Nov 12, 2019 [id number] Feb 07, 2019 ADELAIDA CLIFFORD [facility] [place] [facility] NEEDLE,PEN 31G,5MM Discontinued USE NEEDLE SUBCUTANE OUSLY 5 TIMES A DAY - THIS IS A SINGLE USE NEEDLE AND SHOULD BE DISCARDED AFTER USE 500 Dec 21, 2019 [id number] Sep 28, 2019 ELEUTERIO LIVINGSTON [facility] POTASSIUM CHLORIDE 10MEQ TAB,SA Active TAKE TWO TABLETS BY MOUTH TWO TIMES A DAY FOR POTASSIUM SUPPLEMENTATIONTAKE WITH FOOD 360 Dec 12, 2020 [id number] Mar 02, 2020 [facility] 15 POTASSIUM CHLORIDE 10MEQ TAB,SA Discontinued TAKE ONE TABLET BY MOUTH THREE TIMES A DAY WITH MEALS FOR POTASSIUM SUPPLEMENTATIONTAKE WITH FOOD 180 March 16, 2020 [id number] Nov 29, 2019 BALELEUTERIO KONG [facility] POTASSIUM CHLORIDE 10MEQ TAB,SA Discontinued TAKE ONE TABLET BY MOUTH THREE TIMES A DAY WITH MEALS FOR POTASSIUM SUPPLEMENTATIONTAKE WITH FOOD 180 May 26, 2019 [id number] Jan 24, 2019 [facility] SYRINGE 2.5-3ML/NDL 25G 1IN Active USE 1 SYRINGE EVERY MONTH 3 Feb 21, 2021 [id number] March 20, 2020 [facility] SYRINGE 2.5-3ML/NDL 25G 1IN Discontinued USE 1 SYRINGE EVERY Thu 3 March 18, 2020 [id number] Dec 21, 2019 [facility] TESTOSTERONE CYPIONATE 200MG/ML INJ,1ML (IN OIL) Active INJECT 200 MG (1 ML) INTRAMUSCULARLY EVERY MONTH FOR HORMONE REPLACEMENT 1 May 18, 2020 [id number] April 06, 2020 ADELAIDA CLIFFORD [facility] [place] [facility] TESTOSTERONE CYPIONATE 200MG/ML INJ,1ML (IN OIL) Discontinue d INJECT 200 MG (1 ML) INTRAMUSCULARLY EVERY MONTH FOR HORMONE REPLACEMENT 1 March 25, 2020 [id number] Oct 25, 2019 ADELAIDA CLIFFORD [facility] [place] [facility] TESTOSTERONE CYPIONATE 200MG/ML INJ,1ML (IN OIL) Discontinue d INJECT 200 MG (1 ML) INTRAMUSCULARLY EVERY MONTH FOR HORMONE REPLACEMENT Nov 06, 2019 [id number] Sep 25, 2019 ADELAIDA CLIFFORD [facility] [facility] TESTOSTERONE CYPIONATE 200MG/ML INJ,1ML (IN OIL) Discontinue d INJECT 200 MG (1 ML) INTRAMUSCULARLY EVERY MONTH FOR HORMONE REPLACEMENT 1 May 14, 2019 [id number] Apr 10, 2019 ADELAIDA CLIFFORD [facility] [facility] TRAMADOL HCL 50MG TAB Active TAKE 1 TO 2 TABLET S BY MOUTH EVERY 6 HOURS NEEDED FOR PAIN 180 Jul 21, 2020 [id number] March 30, 2020 [facility] TRAMADOL HCL 50MG TAB Discontinued TAKE 1 TO 2 TABLET S BY MOUTH EVERY 6 HOURS NEEDED FOR PAIN 180 Jun 06, 2020 [id number] Jan 11, 2020 [facility] TRAMADOL HCL 50MG TAB Discontinued TAKE 1 TO 2 TABLET S BY MOUTH EVERY 6 HOURS NEEDED FOR PAIN 180 Jun 06, 2020 [id number] Dec 06, 2019 [facility] TRAMADOL HCL 50MG TAB Discontinued TAKE 1 TO 2 TABLET S BY MOUTH EVERY 6 HOURS NEEDED FOR PAIN 180 Dec 14, 2019 [id number] Nov 15, 2019 [facility] [place] [facility] TRAMADOL HCL 50MG TAB Discontinued TAKE 1 TO 2 TABLET S BY MOUTH EVERY 6 HOURS NEEDED FOR PAIN 180 Jul 06, 2019 [id number] May 26, 2019 [facility] [place] [facility] TRIAMCINOLONE ACETONIDE 0.5% CREAM,TOP Active A PPLY SPARINGLY TO AFFECTED AREA ONCE A DAY NEEDED FOR RASH 45 Jul 15, 2020 [id number] April 01 0 THOM CHAMBERS [facility] [place] [facility] TRIAMCINOLONE ACETONIDE 0.5% CREAM,TOP Discontinued A PPLY SPARINGLY TO AFFECTED AREA ONCE A DAY NEEDED FOR RASH 45 Oct 12, 2019 [id number] Jul THOM CHAMBERS [facility] [facility] Problems (Conditions): All historical [...] Source Basal cell carcinoma of scalp Active [id number] THOM CHAMBERS [facility] [place] [facility] Chronic back pain Active [id number] TERRIE CHAMBERS [facility] Chronic kidney disease stage 3 Active [id number] THOM CHAMBERS [facility] [place] [facility] Constipation Active 92989037 [facility] [place] [facility] Diabetes mellitus Active [id number] THOM CHAMBERS [facility] [place] [facility] Diabetic neuropathy Active 799732212 Neha CHAMBERS [facility] [place] [facility] Essential hypertension Active 13737847 THOM CHAMBERS [facility] [place] [facility] Hyperlipidemia Active 27973551 REYES,DANA JEFF [facility] [place] [facility] Hypogonadism Active 55821059 THOM CHAMBERS [facility] [place] [facility] Sleep apnea Active 53173563 THOM CHAMBERS [facility] [place] [facility] Radiology Reports: +/- 30 days of the encounter No Data Provided for This Section Pathology Reports: +/- 30 days of the encounter No Data Provided for This Section Encounter Notes: All associated encounter notes This section contains the clinical notes associated to the Encounter. Date/Time Encounter Note(s) Provider Source Dec 05, 2019 03:52 PM PHARMACY NOTE: LOCAL TITLE: EK-PHARMACY REFILL STANDARD TITLE: PHARMACY NOTE DATE OF NOTE: DEC 05, 2019@15:52 ENTRY DATE: DEC 05, 2019@15:52:19 AUTHOR: VASU GREGORIO EXP COSIGNER: URGENCY: STATUS: COMPLETED EK-PHARMACY REFILL Has ADDENDA madison mail request ((((((((((((((((MAIL))))))))))))))) 39) TRAMADOL HCL 50MG TAB Qty: 180 for 30 ACTIVE Issu:06-13-19 days Sig: TAKE 1 TO 2 TABLETS BY Refills: 0 Last:11-15-19 MOUTH EVERY 6 HOURS NEEDED FOR PAIN Expr:12-14-19 FUTURE APPOINTMENTS: DEC 14, 2019@15:00 Clinic: TO-PHARM PACT 5 PHONE DEC 15, 2019@13:00 Clinic: [facility] JANEE PACT NURSE JAN 12, 2020@14:00 Clinic: [facility] JANEE PACT VACCINE APRIL 05, 2020@08:00 Clinic: TO-CLIN LAB FAST MICHAELA WELLER N/C APR 12, 2020@09:00 Clinic: [facility] JANEE-PACT TEAM 1 PCP FUTURE LISETH REMINDERS: *If approved, please renew prescription, *If denied,PLEASE CO-SIGN DIAMOND SETTER TO NOTIFY PATIENT FOR ANY REASON FOR DENIAL *Pharmacy staff does not contact patients regarding the outcome of the request /noa/ vasu gregorio lpn NURSE Signed: 12/05/2019 15:54 Receipt Acknowledged By: 12/06/2019 11:05 /noa/ ADELA ECHOLS JR NURSE PRACTITIONER 12/06/2019 ADDENDUM STATUS: COMPLETED *FORWARDING TO PCP, PACT MAMMOGRAPHY TECHNICIAN NOTES PT IS UNDER THE CARE OF CHOICE PROVIDER* SCL2 - DRUG SCREEN RESULTS Collection DT Spec AMPH SAÚL MARCIAL [facility]C MARIANO OPIATE 12/01/2019 11:09 URINE NEG NEG NEG NEG NEG NEG SCL3 - DRUG SCREEN RESULTS Collection DT Spec PCP METHAD CREAT. 12/01/2019 11:09 URINE NEG NEG 177.22 State Rx Drug Monitoring [id number] Opioid Informed Consent Cohort: No Consent for Long-Term Opioid Therapy note found in the patient chart. FUTURE APPOINTMENTS: DEC 14, 2019@15:00 Clinic: TO-PHARM PACT 5 PHONE DEC 15, 2019@13:00 Clinic: TOJAYE WELLER PACT NURSE JAN 12, 2020@14:00 [facility] APRIL 05, 2020@08:00 Clinic: TO-CLIN LAB FAST MICHAELA WELLER N/C APR 12, 2020@09:00 Clinic: TO-MICHAELA WELLER-PACT TEAM 1 PCP /noa/ ADELA HULL JR NURSE PRACTITIONER Signed: 12/06/2019 11:06 Receipt Acknowledged By: 12/06/2019 12:54 /seven INGRAM 12/06/2019 ADDENDUM STATUS: COMPLETED Vet has non-VA PCP thru [facility]. Vet is supposed to have this RX mailed from PCP to [facility] to be filled. This was discussed at length w/ vet by PACT RN on 12/02/19. RX for tramadol #180 was filled 11/15/19 thru [facility]. Vet should not be needing refill yet. RX needs to come thru direction of [facility] PCP. This provider will not manage his chronic pain meds. Am forwarding note to [facility] requesting RX being DCd and stopping mailout. Requesting PACT RN contact [facility] PCP office of [facility] [place] to request they determine if to continue tramadol RX, they will need to mail handwritten RX to TO [facility]. Any other RX if not controlled need to be faxed. /seven INGRAM Signed: 12/06/2019 13:00 Receipt Acknowledged By: 12/06/2019 13:06 /noa/ ELEUTERIO Singleton ALTYENNYSADANN Clinical Assessment Rn * AWAITING SIGNATURE * ALLA NARAYANAN * AWAITING SIGNATURE * ADELA HULL JR 12/06/2019 ADDENDUM STATUS: COMPLETED Per clarification w/ PACT Pharmacist, tramadol RX was received by [facility] and was filled, and includes 2 refills. Pharmacist will request this order be re-entered by Pharmacy staff. /seven INGRAM Signed: 12/06/2019 14:07 VASU GREGORIO [facility] [place] DOLORES Solomon IV
--- OUTSIDE RECORDS SUMMARY | 2020-04-18 09:48 | XMS REPORT | Encounter Summary ---
Author Author Department of [facility] SIMI palacio Organization Department of [facility] Address [address] [place] [phone] Phone Unavailable Care Team Providers Care Active Directory Architect Name Role Phone THOM CHAMBERS PCP Unavailable [...] ([facility]) Nov 09, 2017 [id number] [phone] SIMI COVARRUBIAS PATIENT [facility] REP (WNR) MEDICARE ADVANTAGE MCR ([facility]) Nov 09, 2017 [id number] [phone] SIMI COVARRUBIAS PATIENT [facility] ([facility]) MEDICARE ADVANTAGE MCR ([facility]) Nov 09, [id number] SIMI COVARRUBIAS PATIENT Selected Encounter This section includes the information on record at [facility] for the Encounter. Date/Time Encounter Type Encounter Description Reason Provider Source Nov 24, 2019 10:00 AM Outpatient Encounter ADMIN PAT ACTIVTIES (MASNO NCT) [facility] [place] [facility] IHE Encounter Template [...] 2019 11:30 AM AMBULATORY - MEDICINE [facility] Dec 14, 2019 03:00 PM AMBULATORY - NONE [facility] [place] [facility] Dec 15, 2019 01:00 PM AMBULATORY - NONE [facility] Jan 12, 2020 10:00 AM AMBULATORY - NONE [facility] Jan 26, 2020 03:00 PM AMBULATORY - NONE [facility] [place] [facility] Feb 29, 2020 02:30 PM AMBULATORY - NONE [facility] [place] [facility] March 20, 2020 08:00 AM AMBULATORY - MEDICINE [facility] March 28, 2020 11:30 AM AMBULATORY - NONE [facility] [place] [facility] Apr 19, 2020 11:00 AM AMBULATORY - NONE [facility] [place] [facility] Apr 26, 2020 10:45 AM AMBULATORY - NONE [facility], [facility] 15 Surgical Procedures: All associated [...] Range Comment Dec 01, 2019 11:09 AM [facility] CBC & DIFF Specimen Type: BLOOD No [...] 0.5 % Dec 01, 2019 11:09 AM [facility] RENAL FUNCTION PANEL Specimen Type: PLASMA No comment entered. *CREATININE 1.48 mg/dL H 0.7-1.3 UREA NITROGEN mg/dL 19 mg/dL 9-25 GLUCOSE 99 mg/dL 72-99 SODIUM 143 mEq/L 136-145 POTASSIUM 3.4 mEq/L L 3.5-5.0 CALCIUM (mg/dL) 10.0 mg/dL 8.4-10.4 PHOSPHORUS INORGANIC 2.6 mg/dL 2.3-4.7 ALBUMIN 4.5 g/dl 3.4-5.0 CHLORIDE 101 mEq/L 98-107 CO2 34 mEq/L H 22-31 EGFR 46.5 Dec 01, 2019 11:09 AM [facility] URINALYSIS Specimen Type: URINE No comment entered. [...] RBC/HPF 0-2 Dec 01, 2019 11:09 AM [facility] MAGNESIUM (mg/dL) Specimen Type: PLASMA No comment entered. MAGNESIUM (mg/dL) 2.4 mg/dl 1.6-2.6 Dec 01, 2019 11:09 AM [facility] HEPATIC FUNCTION PANE L Specimen Type: PLASMA No comment entered. PROTEIN,TOTAL 7.2 g/dL 6.0-8.6 ALBUMIN 4.5 g/dl 3.4-5.0 TOTAL BILIRUBIN 0.7 mg/dL 0.2-1.2 DIRECT BILIRUBIN 0.30 mg/dL 0-0.5 ASPARTATE TRANSAMINASE 29 U/L 5-34 ALANINE AMINOTRANSFERASE 20 U/L 8-40 ALKALINE PHOSPHATASE 98 U/L 40-150 Dec 01, 2019 11:09 AM [facility] MICROALBUMIN (CO,EK) Specimen Type: URINE No comment entered. *MICROALBUMIN(CONC) 116.8 mg/dL - *MICROALBUMIN(SPOT) 651.8 mcg/mg cr HH 0-29 *CREATININE mg/dL 179.2 mg/dl Not Avail. Dec 01, 2019 11:09 AM [facility] COMPREHENSIVE METABOL IC PANEL Specimen Type: PLASMA [...] EGFR 46.5 Dec 01, 2019 11:09 AM [facility] TRAMADOL SCRN W/REFLE X,URINE Specimen Type: URINE Comment: normalcy status - Abnormal Tramadol Screen This test was performed using a forensic kit that is intended for the qualitative and semi- quantitative determination of Tramadol in human urine and has not been cleared or approved by the FDA for diagnostic purposes. The analytical performance characteristics of this test have been determined by [facility]. This test should not be used for diagnosis without confirmation by other, more specific, confirmatory analytical methodologies. Test performed by [facility] [address] [place] [address] Paste Up Copy Camera Operator: Baron Domingo M.D.,Ph.D. Test Reported by [facility], [facility], [address] [place], [place] Lawrence Mckeon M.D., Ph.D., Director of Laboratories , CLIA [id number] O-Desmethyltramadol This test was developed and its analytical performance characteristics have been determined by [employer] [facility]. It has not been cleared or approved by the US Food and Drug Administration. This assay has been validated pursuant to the CLIA regulations and is used for clinical purposes. *TRAMADOL SCREEN, URINE Positive Negati ve *TRAMADOL QUANT, URINE > 5000 ng/mL H < 10 0 *DESMETHYLTRAMADOL, URINE >5000 ng/mL H < 100 Dec 01, 2019 11:09 AM [facility] DRUGS OF ABUSE SCREEN Specimen Type: URINE No comment entered. AMPHETAMINE NEG Negative BARBITURATES NEG Negative BENZODIAZEPINES NEG Negative CANNABINOIDS NEG Negative COCAINE NEG Negative OPIATES NEG Negative PHENCYCLIDINE(PCP) NEG Negative *CREATININE,DRUG SCR 177.22 mg/dL METHADONE(UDS) NEG Negative OXYCODONE (URINE) NEG Negative ALCOHOL-URINE,RANDOM (SOSA,WI,EK) NEG mg/dL <10 Dec 01, 2019 11:09 AM [facility] URINALYSIS Specimen Type: URINE No comment entered. [...] RBC/HPF 0-2 Nov 10, 2019 11:39 AM [facility] [place] [facility] HEMOGLOBIN A1C Specimen Type: BLOOD No comment entered. HEMOGLOBIN A1C 10.6 % H 4.0-6.0 Nov 10, 2019 11:39 AM [facility] [employer] BASIC METABOLIC PANEL Specimen Type: PLASMA No comment entered. *CREATININE 1.60 mg/dL H 0.7-1.3 UREA NITROGEN mg/dL 24 mg/dL 9-25 GLUCOSE 226 mg/dL H 72-99 SODIUM 140 mEq/L 136-145 POTASSIUM 3.9 mEq/L 3.5-5.0 CALCIUM (mg/dL) 9.3 mg/dL 8.4-10.4 CHLORIDE 101 mEq/L 98-107 CO2 29 mEq/L 22-31 EGFR 42.6 Nov 10, 2019 11:39 AM [facility] [employer] TESTOSTERONE (SOSA ,WI,EK) Specimen Type: SERUM No comment entered. TESTOSTERONE (SOSA,WI,EK) 371 ng/dL 221-87 1 Nov 10, 2019 11:39 AM [facility] CBC & DIFF Specimen Type: BLOOD No [...] 0.3 % Nov 10, 2019 11:39 AM [facility] [place] [facility] PROSTATIC SP ECIFIC ANTIGEN(TOTAL) [...] reactions to drug (disorder) Renal impairment [facility] [place] 15 METFORMIN Dec 01, 2017 Propensity to adverse reactions to drug (disorder) Renal impairment [facility] 15 Medications: VA dispensed (-15 months) and Non-VA Documented (Obtained Outside A) Section Date Range: 1) prescriptions processed by a [facility] pharmacy in the last 15 m [facility], and 2) all medications recorded [...] that came from someplace other than a [place] pharmacy. This may be a prescription from [...] TIMES A DAY 400 Sep 12, 2020 [id number] Feb 29, 2020 YARAELEUTERIO Laron [facility] ACCU-CHEK ROSINA PLUS (GLUCOSE) TEST STRIP Discontinued USE 1 STRIP FOR TESTING FOUR TIMES A DAY 400 Sep 15, 2019 [id number] Jun 13, 2019 BALTRUSAELEUTERIO MCNAMARA [facility] ALCOHOL PREP PAD Discontinued USE 1 PAD ON SKIN FOUR TIMES A DAY 40 0 Apr 25, 2020 [id number] Nov 29, 2019 ELEUTERIO LIV[facility]ON [facility] [place] [facility] ALCOHOL PREP PAD Discontinued USE 1 PAD ON SKIN FOUR TIMES A DAY 40 0 Sep 15, 2019 [id number] Apr 18, 2019 ELEUTERIO LIV[place]ON [facility] ALLOPURINOL 100MG TAB Active TAKE ONE TABLET BY MOUTH ONCE A DAY FOR GOUT. TAKE WITH PLENTY OF WATER 90 Sep 23, 2020 [id number] Mar 05, 2020 SILVINA CHAMBERS [facility] [place] [facility] ALLOPURINOL 100MG TAB Discontinued TAKE ONE TABLET BY MOUTH ONCE A DAY FOR GOUT. TAKE WITH PLENTY OF WATER 90 Dec 30, 2019 [id number] Sep 17, 2019 THOM SHARPE [facility] [place] [facility] ALOGLIPTIN 12.5MG TAB Active TAKE ONE TABLET BY MOUTH O NCE A DAY FOR DIABETES 90 Sep 12, 2020 [id number] Mar 04, 2020 ELEUTERIO [facility] [facility] [place] [facility] ALOGLIPTIN 12.5MG TAB Discontinued TAKE ONE TABLET BY MOUTH ONCE A DAY FOR DIABETES 90 Dec 22, 2019 [id number] Jun 18, 2019 ELEUTERIO LIV[place]ON [facility] [place] [facility] AMLODIPINE BESYLATE 10MG TAB Discontinued TAKE ONE TA BLET BY MOUTH EVERY MORNING FOR HEART/BLOOD PRESSURE 90 Jun 10, 2019 [id number] Feb 25, 2019 MONIKA HAMMER [facility] [place] [facility] AMLODIPINE BESYLATE 10MG TAB TAKE ONE TA BLET BY MOUTH EVERY MORNING FOR HEART/BLOOD PRESSURE 90 Apr 12, 2020 [id number] Feb 10, 2020 SILVINA CHAMBERS [facility] ASPIRIN 81MG TAB,CHEWABLE Non-VA CHEW ONE TABLET BY MOUTH ONCE A DAY Non-VA Documented by: MEGAN HAWK nted at: [facility] ATORVASTATIN CA 20MG TAB Active TAKE ONE TABLET BY MOUTH ONCE A DAY FOR CHOLESTEROL. REPORT ANY UNEXPLAINED MUSCLE PAIN OR WEAKNESS TO YOUR DOCTOR. 90 Jan 02, 2021 [id number] March 24, 2020 NELLA GROVE [facility] [place] 15 ATORVASTATIN CA 40MG TAB Discontinued TAKE ONE-HALF T ABLET BY MOUTH AT BEDTIME FOR CHOLESTEROL. REPORT ANY UNEXPLAINED MUSCLE PAIN OR WEAKNESS TO YOUR DOCTOR. 45 Jul 15, 2020 [id number] Oct 14, 2019 THOM CHAMBERS [facility] [place] [facility] ATORVASTATIN CA 40MG TAB Discontinued TAKE ONE-HALF T ABLET BY MOUTH AT BEDTIME FOR CHOLESTEROL. REPORT ANY UNEXPLAINED MUSCLE PAIN OR WEAKNESS TO YOUR DOCTOR. 45 Oct 12, 2019 [id number] Jul 16, 2019 THOM CHAMBERS [facility] [place] [facility] CALCIUM CARBONATE 500MG TAB,CHEWABLE Non-VA CHEW ONE TABLET BY MOUTH PRN Non-VA Documented by: THOM CHAMBERSume nted at: [facility] CHLORTHALIDONE 25MG TAB Active TAKE ONE TABLET BY MOUTH ONCE A DAY 90 Jul 01, 2020 [id number] March 19, 2020 MONIKA HAMMER [facility] [place] [facility] CHLORTHALIDONE 25MG TAB Discontinued TAKE ONE TABLET BY MOUTH ONCE A DAY 90 Jun 16, 2019 [id number] Apr 12, 2019 MONIKA HAMMER [facility] [place] [facility] CHOLECALCIFEROL 1000UNT TAB Non-VA TAKE ONE TABLET BY MOUTH EVERY OTHER DAY Non-VA Docume nted by: MEGAN HAWK nted at: [facility] CYANOCOBALAMIN 1000MCG/ML INJ Active INJECT 100 0 MCG (1 ML) INTRAMUSCULARLY EVERY MONTH FOR B12 SUPPLEMENTATION. 3 Nov 03, 2020 [id number] Apr 23, 2020 [facility] [place] [facility] CYANOCOBALAMIN 1000MCG/ML INJ Discontinued INJECT 100 0 MCG (1 ML) INTRAMUSCULARLY EVERY MONTH FOR B12 SUPPLEMENTATION. 3 Nov 17 0 [id number] Aug 07, 2019 THOM CHAMBERS [facility] [place] [facility] DIPHENHYDRAMINE HCL 25MG CAP Non-VA TAKE 1 CAPSULE BY MOUTH PRN Non-VA Documented by: THOM CHAMBERS Docume nted at: [facility] DOCUSATE NA 100MG CAP No n-VA TAKE 2 CAPSULES BY MOUTH ONCE A DAY Non-VA Documented by: THOM CHAMBERS Docume nted at: [facility] FISH OIL 1000MG (500MG DHA/EPA) CAP,ORAL Non-VA TAKE 1 CAPSULE BY MOUTH ONCE A DAY Non-VA Documented by: MEGAN HAWK Docume nted at: [facility] [place] [facility] GABAPENTIN 100MG CAP Active TAKE 1 CAPSULE BY M OUTH EVERY MORNING AND TAKE 1 CAPSULE BY MOUTH AT NOON AND TAKE 2 CAPSULES BY MOUTH AT BEDTIME 360 Jul 06, 2020 [id number] March 31, 2020 YARAELEUTERIO [facility] [place] GLUCAGON 1MG/GABRIELLA INJ,EMERGENCY KIT INJEC T 1MG SUBCUTANEOUSLY NEEDED FOR SEVERE HYPOGLYCEMIA 1 Nov 30, 2019 [id number] Nov 03, 2019 [facility] [place] [facility] INSULIN,ASPART,HUMAN 100U/ML,NOVOLOG,FLEXPEN,3ML Active: On Hold INJECT 20 UNITS SUBCUTANEOUSLY BEFORE BREAKFAST AND INJECT 20 UNITS BEFORE LUNCH AND INJECT 26 UNITS BEFORE SUPPER AND INJECT 24 UNITS SNACK FOR BLOOD SUGAR CONTROL. ADMINISTER 10 MINUTES BEFORE FOOD DIRECTED. REFRIGERATE UN-OPENED PENS. DISCARD CARTRIDGE 28 DAYS AFTER OPENING. PLUS CORRECTION Mar 01, 2021 [id number] YARAELEUTERIO Laron [facility] [place] [facility] INSULIN,ASPART,HUMAN 100U/ML,NOVOLOG,FLEXPEN,3ML Discontinue d INJECT 20 UNITS SUBCUTANEOUSLY BEFORE BREAKFAST AND INJECT 20 UNITS BEFORE LUNCH AND INJECT 24 UNITS BEFORE SUPPER AND INJECT 24 UNITS SNACK FOR BLOOD SUGAR CONTROL. ADMINISTER 10 MINUTES BEFORE FOOD DIRECTED. REFRIGERATE UN-OPENED PENS. DISCARD CARTRIDGE 28 DAYS AFTER OPENING. PLUS CORRECTION 30 Jan 26, 2021 [id number] Jan 28, 2020 ELEUTERIO LIV[place]ON [facility] [place] [facility] INSULIN,ASPART,HUMAN 100U/ML,NOVOLOG,FLEXPEN,3ML Discontinue d INJECT 20 UNITS SUBCUTANEOUSLY BEFORE MEALS FOR BLOOD SUGAR CONTROL. ADMINISTER 10 MINUTES BEFORE FOOD DIRECTED. REFRIGERATE UN-OPENED PENS. DISCARD CARTRIDGE 28 DAYS AFTER OPENING. PLUS CORRECTION FOR BLOOD SUGAR CONTROL. ADMINISTER 10 MINUTES BEFORE FOOD DIRECTED. REFRIGERATE UN-OPENED PENS. DISCARD CARTRIDGE 28 DAYS AFTER OPENING. PLUS CORRECTION 30 Nov 16, 2020 [id number] Nov 16 ELEUTERIO LIV[place] [facility] [place] [facility] INSULIN,ASPART,HUMAN 100U/ML,NOVOLOG,FLEXPEN,3ML Discontinue d INJECT 15 UNITS SUBCUTANEOUSLY EVERY MORNING BEFORE MEAL AND INJECT 15 UNITS WITH LUNCH AND INJECT 15 UNITS WITH SUPPER AND INJECT 20 UNITS WITH SNACK FOR BLOOD SUGAR CONTROL. ADMINISTER 10 MINUTES BEFORE FOOD DIRECTED. REFRIGERATE UN-OPENED PENS. DISCARD CARTRIDGE 28 DAYS AFTER OPENING. Dec 22, 2019 [id number] Oct 12, 2019 ELEUTERIO LIV[place] [facility] INSULIN,GLARGINE,HUMAN 100 UNIT/ML INJ,SOLOSTAR,3ML Active INJECT 50 UNITS SUBCUTANEOUSLY EVERY MORNING FOR BLOOD SUGAR CONTROL. ADMINISTER AT SAME TIME EACH DAY DIRECTED. DISCARD ANY OPEN CARTRIDGE AFTER 28 DAYS. Sep 23, 2020 [id number] Jan 28, 2020 ELEUTERIO LIV[place]ON [facility] INSULIN,GLARGINE,HUMAN 100 UNIT/ML INJ,SOLOSTAR,3ML Disconti nued INJECT 45 UNITS SUBCUTANEOUSLY EVERY MORNING FOR BLOOD SUGAR CONTROL. ADMINISTER AT SAME TIME EACH DAY DIRECTED. DISCARD ANY OPEN CARTRIDGE AFTER 28 DAYS. Oct 23, 2019 [id number] Aug 30, 2019 LEEUTERIO LIV[place]ON [facility] LACTOBACILLUS ACIDOPHILUS TAB,CHEWABLE Non-VA CHEW ONE TABLET BY MOUTH ONCE A DAY Non-VA Documented by: MEGAN HAWK nted at: [facility] [place] [facility] LANCET,SOFTCLIX Active USE LANCET 5 TIME S A DAY FOR TESTING BLOOD GLUCOSE DIRECTED 500 Dec 28, 2020 [id number] March 19, 2020 ELEUTERIO LIV[place] [facility] [place] [facility] LANCET,SOFTCLIX Discontinued USE LANCET 5 TIME S A DAY FOR TESTING BLOOD GLUCOSE DIRECTED 500 Jan 11, 2020 [id number] Sep 29, 2019 YAYA KAYLAISELEUTERIO [facility] [place] [facility] MAGNESIUM OXIDE 400MG TAB Non-VA TAKE ONE TABLET BY MOUTH ONCE A DAY Non-VA Documented by: MEGAN HAWK nted at: [facility] METOPROLOL SUCCINATE 200MG TAB,SA TAKE O NE-HALF TABLET BY MOUTH EVERY EVENING FOR HEART/BLOOD PRESSURE. SWALLOW WHOLE, DO NOT CRUSH OR CHEW (TABLETS MAY BE CUT IN HALF). 45 March 18, 2020 [id number] Dec 28, 2019 STANISLAV HAMMER [facility] NEEDLE 22G 1.5IN USE NEEDLE FOR EVERY MONTH 1 Nov 12, 2019 [id number] Feb 07, 2019 ADELAIDA CLIFFORD [facility] [place] [facility] NEEDLE,PEN 31G,5MM Discontinued USE NEEDLE SUBCUTANE OUSLY 5 TIMES A DAY - THIS IS A SINGLE USE NEEDLE AND SHOULD BE DISCARDED AFTER USE 500 Dec 21, 2019 [id number] Sep 28, 2019 ELEUTERIO LIV[place] [facility] POTASSIUM CHLORIDE 10MEQ TAB,SA Active TAKE TWO TABLETS BY MOUTH TWO TIMES A DAY FOR POTASSIUM SUPPLEMENTATIONTAKE WITH FOOD 360 Dec 12, 2020 [id number] Mar 02, 2020 [facility] POTASSIUM CHLORIDE 10MEQ TAB,SA Discontinued TAKE ONE TABLET BY MOUTH THREE TIMES A DAY WITH MEALS FOR POTASSIUM SUPPLEMENTATIONTAKE WITH FOOD 180 March 16, 2020 [id number] Nov 29, 2019 ELEUTERIO [place]IV[place] [facility] [place] [facility] POTASSIUM CHLORIDE 10MEQ TAB,SA Discontinued TAKE ONE TABLET BY MOUTH THREE TIMES A DAY WITH MEALS FOR POTASSIUM SUPPLEMENTATIONTAKE WITH FOOD 180 May 26, 2019 [id number] Jan 24, 2019 [facility] [place] [facility] SYRINGE 2.5-3ML/NDL 25G 1IN Active USE 1 SYRINGE EVERY MONTH 3 Feb 21, 2021 [id number] March 20, 2020 [facility] SYRINGE 2.5-3ML/NDL 25G 1IN Discontinued USE 1 SYRINGE EVERY Thu 3 March 18, 2020 [id number] Dec 21, 2019 REYES[facility] TESTOSTERONE CYPIONATE 200MG/ML INJ,1ML (IN OIL) Active INJECT 200 MG (1 ML) INTRAMUSCULARLY EVERY MONTH FOR HORMONE REPLACEMENT 1 May 18, 2020 [id number] April 06, 2020 ADELAIDA CLIFFORD [facility] [place] [facility] TESTOSTERONE CYPIONATE 200MG/ML INJ,1ML (IN OIL) Discontinue d INJECT 200 MG (1 ML) INTRAMUSCULARLY EVERY MONTH FOR HORMONE REPLACEMENT March 25, 2020 [id number] Oct 25, 2019 ADELAIDA CLIFFORD [facility] [place] [facility] TESTOSTERONE CYPIONATE 200MG/ML INJ,1ML (IN OIL) Discontinue d INJECT 200 MG (1 ML) INTRAMUSCULARLY EVERY MONTH FOR HORMONE REPLACEMENT Nov 06, 2019 [id number] Sep 25, 2019 ADELAIDA CLIFFORD [facility] [place] [facility] TESTOSTERONE CYPIONATE 200MG/ML INJ,1ML (IN OIL) Discontinue d INJECT 200 MG (1 ML) INTRAMUSCULARLY EVERY MONTH FOR HORMONE REPLACEMENT 1 May 14, 2019 [id number] Apr 10, 2019 ADELAIDA CLIFFORD [facility] [place] [facility] TRAMADOL HCL 50MG TAB Active TAKE 1 TO 2 TABLET S BY MOUTH EVERY 6 HOURS NEEDED FOR PAIN 180 Jul 21, 2020 [id number] March 30, 2020 [facility] TRAMADOL HCL 50MG TAB Discontinued TAKE 1 TO 2 TABLET S BY MOUTH EVERY 6 HOURS NEEDED FOR PAIN 180 Jun 06, 2020 [id number] Jan 11, 2020 [facility] TRAMADOL HCL 50MG TAB Discontinued TAKE 1 TO 2 TABLET S BY MOUTH EVERY 6 HOURS NEEDED FOR PAIN 180 Jun 06, 2020 [id number] Dec 06, 2019 [facility] TRAMADOL HCL 50MG TAB Discontinued TAKE 1 TO 2 TABLET S BY MOUTH EVERY 6 HOURS NEEDED FOR PAIN 180 Dec 14, 2019 [id number] Nov 15, 2019 DANTE VALVERDE [facility] [place] [facility] TRAMADOL HCL 50MG TAB Discontinued TAKE 1 TO 2 TABLET S BY MOUTH EVERY 6 HOURS NEEDED FOR PAIN 180 Jul 06, 2019 [id number] May 26, 2019 [facility] [place] [facility] TRIAMCINOLONE ACETONIDE 0.5% CREAM,TOP Active A PPLY SPARINGLY TO AFFECTED AREA ONCE A DAY NEEDED FOR RASH 45 Jul 15, 2020 [id number] April 01 0 THOM CHAMBERS [facility] [place] [facility] TRIAMCINOLONE ACETONIDE 0.5% CREAM,TOP Discontinued A PPLY SPARINGLY TO AFFECTED AREA ONCE A DAY NEEDED FOR RASH 45 Oct 12, 2019 [id number] Jul THOM CHAMBERS [facility] [place] [facility] Problems (Conditions): All historical and [...] Source Basal cell carcinoma of scalp Active [id number] THOM CHAMBERS [facility] [place] [facility] Chronic back pain Active [id number] TERRIE CHAMBERS [facility] [place] [facility] Chronic kidney disease stage 3 Active [id number] THOM CHAMBERS [facility] [place] [facility] Constipation Active 68208849 THOM CHAMBERS [facility] [place] [facility] Diabetes mellitus Active 51115678 THOM CHAMBERS [facility] [place] [facility] Diabetic neuropathy Active 931501183 Neha CHAMBERS [facility] [place] [facility] Essential hypertension Active 35820178 THOM CHAMBERS [facility] [place] [facility] Hyperlipidemia Active 95060250 THOM CHAMBERS [facility] [place] [facility] Hypogonadism Active 25130217 THOM CHAMBERS [facility] [place] [facility] Sleep apnea Active 72214918 THOM CHAMBERS [facility] [place] [facility] Radiology Reports: +/- 30 days of the encounter No Data Provided for This Section Pathology Reports: +/- 30 days of the encounter No Data Provided for This Section Encounter Notes: All associated encounter notes This section contains the clinical notes associated to the Encounter. Date/Time Encounter Note(s) Provider Source Nov 24, 2019 10:00 AM CARE MANAGEMENT NOTE: LOCAL TITLE: EK-PACT CARE MANAGEMENT STANDARD TITLE: CARE MANAGEMENT NOTE DATE OF NOTE: NOV 24, 2019@10:00 ENTRY DATE: NOV 29, 2019@13:28:46 AUTHOR: ALLA NARAYANAN EXP COSIGNER: URGENCY: STATUS: COMPLETED PC from [facility] stating that he was to have lab drawn for appt with Dr. Conde. He is asking if [place] had received the lab orders. He was informed that no recent lab orders have been received. He states he will try to fax the orders from local library. Is hoping to have the lab drawn on 12-01 at 1130. He was informed that when lab received, the tests can be ordered and lab scheduled. He v/u. Order not signed off pending receipt of lab orders. Return PC from [facility] today, next [facility] working day to inquire if labs received. He was informed that labs have not been received. He v/u, has a copy of the orders, and plans to bring them to [facility] today. /noa/ ALLA NARAYANAN RN Signed: 11/29/2019 13:34 ALLA NARAYANAN [facility]
--- OUTSIDE RECORDS SUMMARY | 2020-04-18 09:48 | XMS REPORT ---
Author Author Department of [facility] SIMI palacio Organization Department of [facility] Address [address] [place] [phone] Phone Unavailable Care Team Providers Care Network Systems Analyst Name Role Phone THOM CHAMBERS PCP Unavailable [...] Policy Woodard [facility] ([facility]) MEDICARE ADVANTAGE MCR ([facility]) Nov 09, 2017 [id number] [phone] SIMI COVARRUBIAS PATIENT [facility] (WNR) MEDICARE ADVANTAGE MCR ([facility]) Nov 09, 2017 [id number] [phone] SIMI COVARRUBIAS PATIENT [facility] ([facility]) MEDICARE ADVANTAGE MCR ([facility]) Nov 09, 2019 [id number] [id number] SIMI COVARRUBIAS PATIENT Selected Encounter This section includes the information on record at [place] for the Encounter. Date/Time Encounter Type Encounter Description Reason Provider Source Dec 02, 2019 09:56 AM Outpatient Encounter ADMIN PAT ACTIVTIES (MASNO NCT) [facility] [place] IHE Encounter [...] 14, 2019 03:00 PM AMBULATORY - NONE [facility] [place] Dec 15, 2019 01:00 PM AMBULATORY - NONE [facility] Jan 12, 2020 10:00 AM AMBULATORY - NONE [facility] Jan 26, 2020 03:00 PM AMBULATORY - NONE [facility] [place] Feb 29, 2020 02:30 PM AMBULATORY - NONE [facility] [place] March 20, 2020 08:00 AM AMBULATORY - MEDICINE [facility] March 28, 2020 11:30 AM AMBULATORY - NONE [facility] [place] Apr 19, 2020 11:00 AM AMBULATORY - NONE [facility] [place] Apr 26, 2020 10:45 AM AMBULATORY - NONE [facility], VISN 15 Surgical Procedures: [...] Range Comment Dec 01, 2019 11:09 AM [facility] CBC & DIFF Specimen Type: BLOOD No [...] 0.5 % Dec 01, 2019 11:09 AM [facility] RENAL FUNCTION PANEL Specimen Type: PLASMA No comment entered. *CREATININE 1.48 mg/dL H 0.7-1.3 UREA NITROGEN mg/dL 19 mg/dL 9-25 GLUCOSE 99 mg/dL 72-99 SODIUM 143 mEq/L 136-145 POTASSIUM 3.4 mEq/L L 3.5-5.0 CALCIUM (mg/dL) 10.0 mg/dL 8.4-10.4 PHOSPHORUS INORGANIC 2.6 mg/dL 2.3-4.7 ALBUMIN 4.5 g/dl 3.4-5.0 CHLORIDE 101 mEq/L 98-107 CO2 34 mEq/L H 22-31 EGFR 46.5 Dec 01, 2019 11:09 AM [facility] URINALYSIS Specimen Type: URINE No comment entered. [...] RBC/HPF 0-2 Dec 01, 2019 11:09 AM [facility] MAGNESIUM (mg/dL) Specimen Type: PLASMA No comment entered. MAGNESIUM (mg/dL) 2.4 mg/dl 1.6-2.6 Dec 01, 2019 11:09 AM [facility] HEPATIC FUNCTION PANE L Specimen Type: PLASMA No comment entered. PROTEIN,TOTAL 7.2 g/dL 6.0-8.6 ALBUMIN 4.5 g/dl 3.4-5.0 TOTAL BILIRUBIN 0.7 mg/dL 0.2-1.2 DIRECT BILIRUBIN 0.30 mg/dL 0-0.5 ASPARTATE TRANSAMINASE 29 U/L 5-34 ALANINE AMINOTRANSFERASE 20 U/L 8-40 ALKALINE PHOSPHATASE 98 U/L 40-150 Dec 01, 2019 11:09 AM [facility] MICROALBUMIN (CO,EK) Specimen Type: URINE No comment entered. *MICROALBUMIN(CONC) 116.8 mg/dL - *MICROALBUMIN(SPOT) 651.8 mcg/mg cr HH 0-29 *CREATININE mg/dL 179.2 mg/dl Not Avail. Dec 01, 2019 11:09 AM [facility] COMPREHENSIVE METABOL IC PANEL Specimen Type: PLASMA [...] EGFR 46.5 Dec 01, 2019 11:09 AM [facility] TRAMADOL SCRN W/REFLE X,URINE Specimen Type: URINE Comment: normalcy status - Abnormal Tramadol Screen This test was performed using a forensic kit that is intended for the qualitative and semi- quantitative determination of Tramadol in human urine and has not been cleared or approved by the FDA for diagnostic purposes. The analytical performance characteristics of this test have been determined by [facility]. This test should not be used for diagnosis without confirmation by other, more specific, confirmatory analytical methodologies. Test performed by [employer] [address] [place] [address] Shear Operator: Baron Domingo M.D.,Ph.D. Test Reported by [facility], [employer] [place], [address] [place], [place] Lawrence Mckeon M.D., Ph.D., Director of Laboratories , CLIA [id number] O-Desmethyltramadol This test was developed and its analytical performance characteristics have been determined by [employer] [facility]. It has not been cleared or approved by the US Food and Drug Administration. This assay has been validated pursuant to the CLIA regulations and is used for clinical purposes. *TRAMADOL SCREEN, URINE Positive Negati ve *TRAMADOL QUANT, URINE > 5000 ng/mL H < 10 0 *DESMETHYLTRAMADOL, URINE >5000 ng/mL H < 100 Dec 01, 2019 11:09 AM [facility] DRUGS OF ABUSE SCREEN Specimen Type: URINE No comment entered. AMPHETAMINE NEG Negative BARBITURATES NEG Negative BENZODIAZEPINES NEG Negative CANNABINOIDS NEG Negative COCAINE NEG Negative OPIATES NEG Negative PHENCYCLIDINE(PCP) NEG Negative *CREATININE,DRUG SCR 177.22 mg/dL METHADONE(UDS) NEG Negative OXYCODONE (URINE) NEG Negative ALCOHOL-URINE,RANDOM (SOSA,WI,EK) NEG mg/dL <10 Dec 01, 2019 11:09 AM [facility] URINALYSIS Specimen Type: URINE No comment entered. [...] RBC/HPF 0-2 Nov 10, 2019 11:39 AM [facility] [place] HEMOGLOBIN A1C Specimen Type: BLOOD No comment entered. HEMOGLOBIN A1C 10.6 % H 4.0-6.0 Nov 10, 2019 11:39 AM [facility] [employer] BASIC METABOLIC PANEL Specimen Type: PLASMA No comment entered. *CREATININE 1.60 mg/dL H 0.7-1.3 UREA NITROGEN mg/dL 24 mg/dL 9-25 GLUCOSE 226 mg/dL H 72-99 SODIUM 140 mEq/L 136-145 POTASSIUM 3.9 mEq/L 3.5-5.0 CALCIUM (mg/dL) 9.3 mg/dL 8.4-10.4 CHLORIDE 101 mEq/L 98-107 CO2 29 mEq/L 22-31 EGFR 42.6 Nov 10, 2019 11:39 AM [facility] [employer] TESTOSTERONE (SOSA ,WI,EK) Specimen Type: SERUM No comment entered. TESTOSTERONE (SOSA,WI,EK) 371 ng/dL 221-87 1 Nov 10, 2019 11:39 AM [facility] [employer] CBC & DIFF Specimen Type: BLOOD No [...] 0.3 % Nov 10, 2019 11:39 AM [facility] [place] PROSTATIC SP ECIFIC [...] adverse reactions to drug (disorder) Renal impairment [facility] 15 METFORMIN Dec 01, 2017 Propensity to adverse reactions to drug (disorder) Renal impairment [facility] VISN 15 Medications: VA dispensed (-15 months) and Non-VA Documented (Obtained Outside V A) Section Date Range: 1) prescriptions processed by a [facility] pharmacy in the last 15 m [facility], and 2) all medications recorded [...] TIMES A DAY 400 Sep 12, 2020 [id number] Feb 29, 2020 BALDILANELEUTERIO Laron [facility] ACCU-CHEK ROSINA PLUS (GLUCOSE) TEST STRIP Discontinued USE 1 STRIP FOR TESTING FOUR TIMES A DAY 400 Sep 15, 2019 [id number] Jun 13, 2019 BALBRYCEIT ISELEUTERIO [facility] ALCOHOL PREP PAD Discontinued USE 1 PAD ON SKIN FOUR TIMES A DAY 40 0 Apr 25, 2020 [id number] Nov 29, 2019 BALELEUTERIO KONG [facility] [place] ALCOHOL PREP PAD Discontinued USE 1 PAD ON SKIN FOUR TIMES A DAY 40 0 Sep 15, 2019 [id number] Apr 18, 2019 ELEUTERIO LIVINGSTON [facility] ALLOPURINOL 100MG TAB Active TAKE ONE TABLET BY MOUTH ONCE A DAY FOR GOUT. TAKE WITH PLENTY OF WATER 90 Sep 23, 2020 [id number] Mar 05, 2020 SILVINA CHAMBERS [facility] [place] ALLOPURINOL 100MG TAB Discontinued TAKE ONE TABLET BY MOUTH ONCE A DAY FOR GOUT. TAKE WITH PLENTY OF WATER 90 Dec 30, 2019 [id number] Sep 17, 2019 THOM SHARPE [facility] [place] ALOGLIPTIN 12.5MG TAB Active TAKE ONE TABLET BY MOUTH O NCE A DAY FOR DIABETES 90 Sep 12, 2020 [id number] Mar 04, 2020 ELEUTERIO LIVINGSTON [facility] [place] ALOGLIPTIN 12.5MG TAB Discontinued TAKE ONE TABLET BY MOUTH ONCE A DAY FOR DIABETES 90 Dec 22, 2019 [id number] Jun 18, 2019 ELEUTERIO LIVINGSTON [facility] [place] AMLODIPINE BESYLATE 10MG TAB Discontinued TAKE ONE TA BLET BY MOUTH EVERY MORNING FOR HEART/BLOOD PRESSURE 90 Jun 10, 2019 [id number] Feb 25, 2019 MONIKA HAMMER [facility] [place] AMLODIPINE BESYLATE 10MG TAB TAKE ONE TA BLET BY MOUTH EVERY MORNING FOR HEART/BLOOD PRESSURE 90 Apr 12, 2020 [id number] Feb 10, 2020 SILVINA CHAMBERS [facility] ASPIRIN 81MG TAB,CHEWABLE Non-VA CHEW ONE TABLET BY MOUTH ONCE A DAY Non-VA Documented by: MEGAN HAWK nted at: [facility] [place] ATORVASTATIN CA 20MG TAB Active TAKE ONE TABLET BY MOUTH ONCE A DAY FOR CHOLESTEROL. REPORT ANY UNEXPLAINED MUSCLE PAIN OR WEAKNESS TO YOUR DOCTOR. 90 Jan 02, 2021 [id number] March 24, 2020 [facility], VISN 15 ATORVASTATIN CA 40MG TAB Discontinued TAKE ONE-HALF T ABLET BY MOUTH AT BEDTIME FOR CHOLESTEROL. REPORT ANY UNEXPLAINED MUSCLE PAIN OR WEAKNESS TO YOUR DOCTOR. 45 Jul 15, 2020 [id number] Oct 14, 2019 THOM CHAMBERS [facility] [place] ATORVASTATIN CA 40MG TAB Discontinued TAKE ONE-HALF T ABLET BY MOUTH AT BEDTIME FOR CHOLESTEROL. REPORT ANY UNEXPLAINED MUSCLE PAIN OR WEAKNESS TO YOUR DOCTOR. 45 Oct 12, 2019 [id number] Jul 16, 2019 THOM CHAMBERS [facility] [place] CALCIUM CARBONATE 500MG TAB,CHEWABLE Non-VA CHEW ONE TABLET BY MOUTH PRN Non-VA Documented by: THOM CHAMBERS nted at: [facility] CHLORTHALIDONE 25MG TAB Active TAKE ONE TABLET BY MOUTH ONCE A DAY 90 Jul 01, 2020 [id number] March 19, 2020 MONIKA HAMMER [facility] [place] CHLORTHALIDONE 25MG TAB Discontinued TAKE ONE TABLET BY MOUTH ONCE A DAY 90 Jun 16, 2019 [id number] Apr 12, 2019 MONIKA HAMMER [facility] [place] CHOLECALCIFEROL 1000UNT TAB Non-VA TAKE ONE TABLET BY MOUTH EVERY OTHER DAY Non-VA Docume nted by: MEGAN HAWK nted at: [facility] [place] [facility] CYANOCOBALAMIN 1000MCG/ML INJ Active INJECT 100 0 MCG (1 ML) INTRAMUSCULARLY EVERY MONTH FOR B12 SUPPLEMENTATION. 3 Nov 03, 2020 [id number] Apr 23, 2020 THOM CHAMBERS [facility] [place] CYANOCOBALAMIN 1000MCG/ML INJ Discontinued INJECT 100 0 MCG (1 ML) INTRAMUSCULARLY EVERY MONTH FOR B12 SUPPLEMENTATION. 3 Nov 17 0 [id number] Aug 07, 2019 [facility] [place] DIPHENHYDRAMINE HCL 25MG CAP Non-VA TAKE 1 CAPSULE BY MOUTH PRN Non-VA Documented by: THOM CHAMBERS Docume nted at: [facility] DOCUSATE NA 100MG CAP No n-VA TAKE 2 CAPSULES BY MOUTH ONCE A DAY Non-VA Documented by: THOM CHAMBERS Docume nted at: [facility] FISH OIL 1000MG (500MG DHA/EPA) CAP,ORAL Non-VA TAKE 1 CAPSULE BY MOUTH ONCE A DAY Non-VA Documented by: MEGAN HAWK Docume nted at: [facility] [place] [facility] GABAPENTIN 100MG CAP Active TAKE 1 CAPSULE BY M OUTH EVERY MORNING AND TAKE 1 CAPSULE BY MOUTH AT NOON AND TAKE 2 CAPSULES BY MOUTH AT BEDTIME 360 Jul 06, 2020 [id number] March 31, 2020 ELEUTERIO LIVINGSTON [facility] [place] GLUCAGON 1MG/GABRIELLA INJ,EMERGENCY KIT INJEC T 1MG SUBCUTANEOUSLY NEEDED FOR SEVERE HYPOGLYCEMIA 1 Nov 30, 2019 [id number] Nov 03, 2019 TERRIE CHAMBERSA [facility] [place] INSULIN,ASPART,HUMAN 100U/ML,NOVOLOG,FLEXPEN,3ML Active: On Hold INJECT 20 UNITS SUBCUTANEOUSLY BEFORE BREAKFAST AND INJECT 20 UNITS BEFORE LUNCH AND INJECT 26 UNITS BEFORE SUPPER AND INJECT 24 UNITS SNACK FOR BLOOD SUGAR CONTROL. ADMINISTER 10 MINUTES BEFORE FOOD DIRECTED. REFRIGERATE UN-OPENED PENS. DISCARD CARTRIDGE 28 DAYS AFTER OPENING. PLUS CORRECTION 30 Mar 01, 2021 [id number] ELEUTERIO LIVINGSTON [facility] [place] INSULIN,ASPART,HUMAN 100U/ML,NOVOLOG,FLEXPEN,3ML Discontinue d INJECT 20 UNITS SUBCUTANEOUSLY BEFORE BREAKFAST AND INJECT 20 UNITS BEFORE LUNCH AND INJECT 24 UNITS BEFORE SUPPER AND INJECT 24 UNITS SNACK FOR BLOOD SUGAR CONTROL. ADMINISTER 10 MINUTES BEFORE FOOD DIRECTED. REFRIGERATE UN-OPENED PENS. DISCARD CARTRIDGE 28 DAYS AFTER OPENING. PLUS CORRECTION 30 Jan 26, 2021 [id number] Jan 28, 2020 ELEUTERIO LIVINGSTON [facility] [place] [facility] INSULIN,ASPART,HUMAN 100U/ML,NOVOLOG,FLEXPEN,3ML Discontinue d INJECT 20 UNITS SUBCUTANEOUSLY BEFORE MEALS FOR BLOOD SUGAR CONTROL. ADMINISTER 10 MINUTES BEFORE FOOD DIRECTED. REFRIGERATE UN-OPENED PENS. DISCARD CARTRIDGE 28 DAYS AFTER OPENING. PLUS CORRECTION FOR BLOOD SUGAR CONTROL. ADMINISTER 10 MINUTES BEFORE FOOD DIRECTED. REFRIGERATE UN-OPENED PENS. DISCARD CARTRIDGE 28 DAYS AFTER OPENING. PLUS CORRECTION 30 Nov 16, 2020 [id number] Nov 16 ELEUTERIO LIVINGSTON [facility] [place] INSULIN,ASPART,HUMAN 100U/ML,NOVOLOG,FLEXPEN,3ML Discontinue d INJECT 15 UNITS SUBCUTANEOUSLY EVERY MORNING BEFORE MEAL AND INJECT 15 UNITS WITH LUNCH AND INJECT 15 UNITS WITH SUPPER AND INJECT 20 UNITS WITH SNACK FOR BLOOD SUGAR CONTROL. ADMINISTER 10 MINUTES BEFORE FOOD DIRECTED. REFRIGERATE UN-OPENED PENS. DISCARD CARTRIDGE 28 DAYS AFTER OPENING. Dec 22, 2019 5 [id number] Oct 12, 2019 ELEUTERIO LIVINGSTON [facility] [place] INSULIN,GLARGINE,HUMAN 100 UNIT/ML INJ,SOLOSTAR,3ML Active INJECT 50 UNITS SUBCUTANEOUSLY EVERY MORNING FOR BLOOD SUGAR CONTROL. ADMINISTER AT SAME TIME EACH DAY DIRECTED. DISCARD ANY OPEN CARTRIDGE AFTER 28 DAYS. Sep 23, 2020 [id number] Jan 28, 2020 ELEUTERIO LIVINGSTON [facility] [place] [facility] INSULIN,GLARGINE,HUMAN 100 UNIT/ML INJ,SOLOSTAR,3ML Disconti nued INJECT 45 UNITS SUBCUTANEOUSLY EVERY MORNING FOR BLOOD SUGAR CONTROL. ADMINISTER AT SAME TIME EACH DAY DIRECTED. DISCARD ANY OPEN CARTRIDGE AFTER 28 DAYS. Oct 23, 2019 [id number] Aug 30, 2019 ELEUTERIO LIVINGSTON [facility] [place] [facility] LACTOBACILLUS ACIDOPHILUS TAB,CHEWABLE Non-VA CHEW ONE TABLET BY MOUTH ONCE A DAY Non-VA Documented by: MEGAN HAWK nted at: [facility] [place] [facility] LANCET,SOFTCLIX Active USE LANCET 5 TIME S A DAY FOR TESTING BLOOD GLUCOSE DIRECTED 500 Dec 28, 2020 [id number] March 19, 2020 ELEUTERIO LIVINGSTON [facility] [place] LANCET,SOFTCLIX Discontinued USE LANCET 5 TIME S A DAY FOR TESTING BLOOD GLUCOSE DIRECTED 500 Jan 11, 2020 [id number] Sep 29, 2019 [place] ITISELEUTERIO [facility] [place] MAGNESIUM OXIDE 400MG TAB Non-VA TAKE ONE TABLET BY MOUTH ONCE A DAY Non-VA Documented by: MEGAN HAWK nted at: [facility] [place] [facility] METOPROLOL SUCCINATE 200MG TAB,SA TAKE O NE-HALF TABLET BY MOUTH EVERY EVENING FOR HEART/BLOOD PRESSURE. SWALLOW WHOLE, DO NOT CRUSH OR CHEW (TABLETS MAY BE CUT IN HALF). 45 March 18, 2020 [id number] Dec 28, 2019 STANISLAV HAMMER [facility] NEEDLE 22G 1.5IN USE NEEDLE FOR EVERY MONTH 1 Nov 12, 2019 [id number] Feb 07, 2019 ADELAIDA CLIFFORD [facility] [place] NEEDLE,PEN 31G,5MM Discontinued USE NEEDLE SUBCUTANE OUSLY 5 TIMES A DAY - THIS IS A SINGLE USE NEEDLE AND SHOULD BE DISCARDED AFTER USE 500 Dec 21, 2019 [id number] Sep 28, 2019 ELEUTERIO LIVINGSTON [facility] [place] [facility] POTASSIUM CHLORIDE 10MEQ TAB,SA Active TAKE TWO TABLETS BY MOUTH TWO TIMES A DAY FOR POTASSIUM SUPPLEMENTATIONTAKE WITH FOOD 360 Dec 12, 2020 [id number] Mar 02, 2020 [facility], VISN 15 POTASSIUM CHLORIDE 10MEQ TAB,SA Discontinued TAKE ONE TABLET BY MOUTH THREE TIMES A DAY WITH MEALS FOR POTASSIUM SUPPLEMENTATIONTAKE WITH FOOD 180 March 16, 2020 [id number] Nov 29, 2019 BALELEUTERIO KONG [facility] [place] POTASSIUM CHLORIDE 10MEQ TAB,SA Discontinued TAKE ONE TABLET BY MOUTH THREE TIMES A DAY WITH MEALS FOR POTASSIUM SUPPLEMENTATIONTAKE WITH FOOD 180 May 26, 2019 [id number] Jan 24, 2019 [facility] [place] SYRINGE 2.5-3ML/NDL 25G 1IN Active USE 1 SYRINGE EVERY MONTH 3 Feb 21, 2021 [id number] March 20, 2020 [facility] SYRINGE 2.5-3ML/NDL 25G 1IN Discontinued USE 1 SYRINGE EVERY Thu 3 March 18, 2020 [id number] Dec 21, 2019 [facility] TESTOSTERONE CYPIONATE 200MG/ML INJ,1ML (IN OIL) Active INJECT 200 MG (1 ML) INTRAMUSCULARLY EVERY MONTH FOR HORMONE REPLACEMENT 1 May 18, 2020 [id number] April 06, 2020 ADELAIDA CLIFFORD [facility] [place] TESTOSTERONE CYPIONATE 200MG/ML INJ,1ML (IN OIL) Discontinue d INJECT 200 MG (1 ML) INTRAMUSCULARLY EVERY MONTH FOR HORMONE REPLACEMENT March 25, 2020 [id number] Oct 25, 2019 ADELAIDA CLIFFORD [facility] [place] TESTOSTERONE CYPIONATE 200MG/ML INJ,1ML (IN OIL) Discontinue d INJECT 200 MG (1 ML) INTRAMUSCULARLY EVERY MONTH FOR HORMONE REPLACEMENT 1 Nov 06, 2019 [id number] Sep 25, 2019 ADELAIDA CLIFFORD [facility] [place] TESTOSTERONE CYPIONATE 200MG/ML INJ,1ML (IN OIL) Discontinue d INJECT 200 MG (1 ML) INTRAMUSCULARLY EVERY MONTH FOR HORMONE REPLACEMENT 1 May 14, 2019 [id number] Apr 10, 2019 ADELAIDA CLIFFORD [facility] [place] TRAMADOL HCL 50MG TAB Active TAKE 1 TO 2 TABLET S BY MOUTH EVERY 6 HOURS NEEDED FOR PAIN 180 Jul 21, 2020 [id number] March 30, 2020 [facility] TRAMADOL HCL 50MG TAB Discontinued TAKE 1 TO 2 TABLET S BY MOUTH EVERY 6 HOURS NEEDED FOR PAIN 180 Jun 06, 2020 [id number] Jan 11, 2020 [facility] TRAMADOL HCL 50MG TAB Discontinued TAKE 1 TO 2 TABLET S BY MOUTH EVERY 6 HOURS NEEDED FOR PAIN 180 Jun 06, 2020 [id number] Dec 06, [facility] TRAMADOL HCL 50MG TAB Discontinued TAKE 1 TO 2 TABLET S BY MOUTH EVERY 6 HOURS NEEDED FOR PAIN 180 Dec 14, 2019 [id number] Nov 15, 2019 DANTE VALVERDE [facility] [place] TRAMADOL HCL 50MG TAB Discontinued TAKE 1 TO 2 TABLET S BY MOUTH EVERY 6 HOURS NEEDED FOR PAIN 180 Jul 06, 2019 [id number] May 26, 2019 [facility] [place] [facility] TRIAMCINOLONE ACETONIDE 0.5% CREAM,TOP Active A PPLY SPARINGLY TO AFFECTED AREA ONCE A DAY NEEDED FOR RASH 45 Jul 15, 2020 [id number] April 01 0 THOM CHAMBERS [facility] [place] TRIAMCINOLONE ACETONIDE 0.5% CREAM,TOP Discontinued A PPLY SPARINGLY TO AFFECTED AREA ONCE A DAY NEEDED FOR RASH 45 Oct 12, 2019 [id number] Jul THOM CHAMBERS [facility] [place] [...] Source Basal cell carcinoma of scalp Active [id number] THOM CHAMBERS [facility] [place] Chronic back pain Active [id number] TERRIE CHAMBERS [facility] [place] Chronic kidney disease stage 3 Active 121472743 THOM CHAMBERS [facility] [place] Constipation Active 27892831 THOM CHAMBERS [facility] [place] Diabetes mellitus Active 06774279 THOM CHAMBERS [facility] [place] Diabetic neuropathy Active 210251217 Neha [facility] [place] Essential hypertension Active 55953404 THOM CHAMBERS [facility] [place] Hyperlipidemia Active 98007305 THOM CHAMBERS [facility] [place] Hypogonadism Active 84691232 THOM CHAMBERS [facility] [place] Sleep apnea Active 61964200 THOM CHAMBERS [facility] [place] Radiology Reports: +/- 30 days of the encounter No Data Provided for This Section Pathology Reports: +/- 30 days of the encounter No Data Provided for This Section Encounter Notes: All associated encounter notes This section contains the clinical notes associated to the Encounter. Date/Time Encounter Note(s) Provider Source Dec 02, 2019 09:56 AM CARE MANAGEMENT NOTE: LOCAL TITLE: EK-PACT CARE MANAGEMENT STANDARD TITLE: CARE MANAGEMENT NOTE DATE OF NOTE: DEC 02, 2019@09:56 ENTRY DATE: DEC 02, 2019@09:56:22 AUTHOR: ALLA NARAYANAN EXP COSIGNER: URGENCY: STATUS: COMPLETED EK-PACT CARE MANAGEMENT Has ADDENDA 10-12-19 THOMAS report ordered by Dr. Yung brought to clinic [facility]. To provider for viewing and then to mr for scanning. /noa/ ALLA NARAYANAN RN Signed: 12/02/2019 10:04 12/02/2019 ADDENDUM STATUS: COMPLETED Labs faxed to Dr. Conde at [phone], ph [phone] /noa/ ALLA NARAYANAN RN Signed: 12/02/2019 17:07 12/04/2019 ADDENDUM STATUS: COMPLETED 10/12/19 THOMAS at [address] DX: diminished pedal pulses normal THOMAS /noa/ THOM CHAMBERS [facility] Signed: 12/04/2019 13:18 ALLA NARAYANAN [facility]
--- OUTSIDE RECORDS SUMMARY | 2020-04-18 09:48 | XMS REPORT | Encounter Summary ---
Author Author Department of [facility] SIMI palacio Organization Department of [facility] Address [address] [place] [address] Phone Unavailable Care Team Providers Care Heating Unit Installer Name Role Phone REYES THOM PCP Unavailable [...] ([facility]) Nov 09, 2017 [id number] [phone] SIMI COVARRUBIAS PATIENT [employer] MED REP (WNR) MEDICARE ADVANTAGE MCR ([facility]) Nov 09, 2017 [id number] [phone] SIMI COVARRUBIAS PATIENT AETNA MCR ([facility]) MEDICARE ADVANTAGE MCR ([facility]) Nov 09, 2019 [id number] SIMI COVARRUBIAS PATIENT Selected Encounter This section includes the information on record at [facility] for the Encounter. Date/Time Encounter Type Encounter Description Reason Provider Source Nov 30, 2019 01:43 PM Outpatient Encounter TELEPHONE/ANCILLARY [facility] IHE Encounter Template Text not [...] appointme nts. The data comes from all [facility] treatment [facility]. Appointment Date/Time Appointment Type Appointment Facili ty Name Dec 01, 2019 11:30 AM AMBULATORY - MEDICINE [facility] Dec 14, 2019 03:00 PM AMBULATORY - NONE [facility] Dec 15, 2019 01:00 PM AMBULATORY - NONE [facility] Jan 12, 2020 10:00 AM AMBULATORY - NONE [facility] Jan 26, 2020 03:00 PM AMBULATORY - NONE [facility] Feb 29, 2020 02:30 PM AMBULATORY - NONE [facility] March 20, 2020 08:00 AM AMBULATORY - MEDICINE [facility] March 28, 2020 11:30 AM AMBULATORY - NONE [facility] Apr 19, 2020 11:00 AM AMBULATORY - NONE [facility] Apr 26, 2020 10:45 AM AMBULATORY - NONE [facility], [facility] 15 Surgical Procedures: All associated to the encounter No Data Provided for This Section Lab Results: +/- 30 days of the encounter This section includes the Chemistry and Hematology Lab R esults on record with [facility] for the patient. Radiology Reports and Pathology Report s are provided separately, in subsequent sections. Lab Results This section contains the Chemistry/Hematology Results anushka t were resulted 30 days before or 30 days after the date of the Encounter. Date/Time Source Result Type Result - Unit Interpretation Reference Range Comment Dec 01, 2019 11:09 AM [facility] CBC & DIFF Specimen Type: BLOOD No [...] 0.5 % Dec 01, 2019 11:09 AM [facility] RENAL FUNCTION PANEL Specimen Type: PLASMA No comment entered. *CREATININE 1.48 mg/dL H 0.7-1.3 UREA NITROGEN mg/dL 19 mg/dL 9-25 GLUCOSE 99 mg/dL 72-99 SODIUM 143 mEq/L 136-145 POTASSIUM 3.4 mEq/L L 3.5-5.0 CALCIUM (mg/dL) 10.0 mg/dL 8.4-10.4 PHOSPHORUS INORGANIC 2.6 mg/dL 2.3-4.7 ALBUMIN 4.5 g/dl 3.4-5.0 CHLORIDE 101 mEq/L 98-107 CO2 34 mEq/L H 22-31 EGFR 46.5 Dec 01, 2019 11:09 AM [facility] URINALYSIS Specimen Type: URINE No comment entered. [...] RBC/HPF 0-2 Dec 01, 2019 11:09 AM [facility] MAGNESIUM (mg/dL) Specimen Type: PLASMA No comment entered. MAGNESIUM (mg/dL) 2.4 mg/dl 1.6-2.6 Dec 01, 2019 11:09 AM [facility] HEPATIC FUNCTION PANE L Specimen Type: PLASMA No comment entered. PROTEIN,TOTAL 7.2 g/dL 6.0-8.6 ALBUMIN 4.5 g/dl 3.4-5.0 TOTAL BILIRUBIN 0.7 mg/dL 0.2-1.2 DIRECT BILIRUBIN 0.30 mg/dL 0-0.5 ASPARTATE TRANSAMINASE 29 U/L 5-34 ALANINE AMINOTRANSFERASE 20 U/L 8-40 ALKALINE PHOSPHATASE 98 U/L 40-150 Dec 01, 2019 11:09 AM [facility] MICROALBUMIN (CO,EK) Specimen Type: URINE No comment entered. *MICROALBUMIN(CONC) 116.8 mg/dL - *MICROALBUMIN(SPOT) 651.8 mcg/mg cr HH 0-29 *CREATININE mg/dL 179.2 mg/dl Not Avail. Dec 01, 2019 11:09 AM [facility] COMPREHENSIVE METABOL IC PANEL Specimen Type: PLASMA [...] EGFR 46.5 Dec 01, 2019 11:09 AM [facility] TRAMADOL SCRN W/REFLE X,URINE Specimen Type: URINE Comment: normalcy status - Abnormal Tramadol Screen This test was performed using a forensic kit that is intended for the qualitative and semi- quantitative determination of Tramadol in human urine and has not been cleared or approved by the FDA for diagnostic purposes. The analytical performance characteristics of this test have been determined by [facility]. This test should not be used for diagnosis without confirmation by other, more specific, confirmatory analytical methodologies. Test performed by [employer] [address] [place] [phone] Head Of Sales: Baron Domingo M.D.,Ph.D. Test Reported by [facility], [employer] [place], [address] [place], [place] Lawrence Mckeon M.D., Ph.D., Director of Laboratories , CLIA [id number] O-Desmethyltramadol This test was developed and its analytical performance characteristics have been determined by [employer] [facility]. It has not been cleared or approved by the US Food and Drug Administration. This assay has been validated pursuant to the CLIA regulations and is used for clinical purposes. *TRAMADOL SCREEN, URINE Positive Negati ve *TRAMADOL QUANT, URINE > 5000 ng/mL H < 10 0 *DESMETHYLTRAMADOL, URINE >5000 ng/mL H < 100 Dec 01, 2019 11:09 AM [facility] DRUGS OF ABUSE SCREEN Specimen Type: URINE No comment entered. AMPHETAMINE NEG Negative BARBITURATES NEG Negative BENZODIAZEPINES NEG Negative CANNABINOIDS NEG Negative COCAINE NEG Negative OPIATES NEG Negative PHENCYCLIDINE(PCP) NEG Negative *CREATININE,DRUG SCR 177.22 mg/dL METHADONE(UDS) NEG Negative OXYCODONE (URINE) NEG Negative ALCOHOL-URINE,RANDOM (SOSA,WI,EK) NEG mg/dL <10 Dec 01, 2019 11:09 AM [facility] URINALYSIS Specimen Type: URINE No comment entered. [...] RBC/HPF 0-2 Nov 10, 2019 11:39 AM [facility] HEMOGLOBIN A1C Specimen Type: BLOOD No comment entered. HEMOGLOBIN A1C 10.6 % H 4.0-6.0 Nov 10, 2019 11:39 AM [facility] [employer] BASIC METABOLIC PANEL Specimen Type: PLASMA No comment entered. *CREATININE 1.60 mg/dL H 0.7-1.3 UREA NITROGEN mg/dL 24 mg/dL 9-25 GLUCOSE 226 mg/dL H 72-99 SODIUM 140 mEq/L 136-145 POTASSIUM 3.9 mEq/L 3.5-5.0 CALCIUM (mg/dL) 9.3 mg/dL 8.4-10.4 CHLORIDE 101 mEq/L 98-107 CO2 29 mEq/L 22-31 EGFR 42.6 Nov 10, 2019 11:39 AM [facility] [employer] TESTOSTERONE (SOSA ,WI,EK) Specimen Type: SERUM No comment entered. TESTOSTERONE (SOSA,WI,EK) 371 ng/dL 221-87 1 Nov 10, 2019 11:39 AM [facility] [employer] CBC & DIFF Specimen Type: BLOOD No [...] % 0.3 % Nov 10, 2019 11:39 [facility] [place] [facility] PROSTATIC SP ECIFIC [...] patient. The data comes from a ll [facility] treatment facilities. It does not list Allergies/ADRs that were removed or entered in error. Some allergies/ADRs may be reported in t Immunization section. Allergen Event Date Event Type Reaction(s) Severity Source LISINOPRIL Dec 01, 2017 Propensity to adverse reactions to drug (disorder) Renal impairment [facility] 15 METFORMIN Dec 01, 2017 Propensity to adverse reactions to drug (disorder) Renal impairment [facility] 15 Medications: VA dispensed (-15 months) and Non-VA Documented (Obtained Outside V A) Section Date Range: 1) prescriptions processed by a VA pharmacy in the last 15 m [facility], and 2) all medications recorded in the [facility] medical record as "non-VA medic ations". Pharmacy terms refer to [facility] pharmacy's work on prescriptions. [facility] patient s are advised to take their medications as instructed by their health care team. The data comes from all [facility] treatment facilities. Glossary of Pharmacy Terms:Active = A prescription that can be filled at the local [facility] pharmacy.Active: On Hold = An active prescription that will not be filled until pharmacy resolves the issue.Active: Susp = An active prescription that is not scheduled to be filled yet.Clinic Order = A medication received during a visit to a [facility] clinic or emergency department (currently not available).Discontinued [...] may be a prescription from either the [facility] or other providers that was filled outside the [facility]. Or, it may be an over the [...] TIMES A DAY 400 Sep 12, 2020 [id number] Feb 29, 2020 BALDILANELEUTERIO Laron [facility] ACCU-CHEK ROSINA PLUS (GLUCOSE) TEST STRIP Discontinued USE 1 STRIP FOR TESTING FOUR TIMES A DAY 400 Sep 15, 2019 [id number] Jun 13, 2019 BALTRUSAIT ISELEUTERIO [facility] ALCOHOL PREP PAD Discontinued USE 1 PAD ON SKIN FOUR TIMES A DAY 40 0 Apr 25, 2020 [id number] Nov 29, 2019 BALELEUTERIO KONG [facility] [place] [facility] ALCOHOL PREP PAD Discontinued USE 1 PAD ON SKIN FOUR TIMES A DAY 40 0 Sep 15, 2019 [id number] Apr 18, 2019 ELEUTERIO LIVINGSTON [facility] ALLOPURINOL 100MG TAB Active TAKE ONE TABLET BY MOUTH ONCE A DAY FOR GOUT. TAKE WITH PLENTY OF WATER 90 Sep 23, 2020 [id number] Mar 05, 2020 SILVINA CHAMBERS [facility] [place] [facility] ALLOPURINOL 100MG TAB Discontinued TAKE ONE TABLET BY MOUTH ONCE A DAY FOR GOUT. TAKE WITH PLENTY OF WATER 90 Dec 30, 2019 [id number] Sep 17, 2019 THOM SHARPE [facility] ALOGLIPTIN 12.5MG TAB Active TAKE ONE TABLET BY MOUTH O NCE A DAY FOR DIABETES 90 Sep 12, 2020 [id number] Mar 04, 2020 ELEUTERIO LIVINGSTON [facility] [place] [facility] ALOGLIPTIN 12.5MG TAB Discontinued TAKE ONE TABLET BY MOUTH ONCE A DAY FOR DIABETES 90 Dec 22, 2019 [id number] Jun 18, 2019 ELEUTERIO LIVINGSTON [facility] AMLODIPINE BESYLATE 10MG TAB Discontinued TAKE ONE TA BLET BY MOUTH EVERY MORNING FOR HEART/BLOOD PRESSURE 90 Jun 10, 2019 [id number] Feb 25, 2019 MONIKA HAMMER [facility] AMLODIPINE BESYLATE 10MG TAB TAKE ONE TA BLET BY MOUTH EVERY MORNING FOR HEART/BLOOD PRESSURE 90 Apr 12, 2020 [id number] Feb 10, 2020 SILVINA CHAMBERS [facility] ASPIRIN 81MG TAB,CHEWABLE Non-VA CHEW ONE TABLET BY MOUTH ONCE A DAY Non-VA Documented by: MEGAN HAWK nted at: [facility] ATORVASTATIN CA 20MG TAB Active TAKE ONE TABLET BY MOUTH ONCE A DAY FOR CHOLESTEROL. REPORT ANY UNEXPLAINED MUSCLE PAIN OR WEAKNESS TO YOUR DOCTOR. 90 Jan 02, 2021 [id number] March 24, 2020 NELLA GROVE [facility], [facility] 15 ATORVASTATIN CA 40MG TAB Discontinued TAKE ONE-HALF T ABLET BY MOUTH AT BEDTIME FOR CHOLESTEROL. REPORT ANY UNEXPLAINED MUSCLE PAIN OR WEAKNESS TO YOUR DOCTOR. 45 Jul 15, 2020 [id number] Oct 14, 2019 THOM CHAMBERS [facility] ATORVASTATIN CA 40MG TAB Discontinued TAKE ONE-HALF T ABLET BY MOUTH AT BEDTIME FOR CHOLESTEROL. REPORT ANY UNEXPLAINED MUSCLE PAIN OR WEAKNESS TO YOUR DOCTOR. 45 Oct 12, 2019 [id number] Jul 16, 2019 THOM CHAMBERS [facility] [place] [facility] CALCIUM CARBONATE 500MG TAB,CHEWABLE Non-VA CHEW ONE TABLET BY MOUTH PRN Non-VA Documented by: THOM CHAMBERSume nted at: [facility] CHLORTHALIDONE 25MG TAB Active TAKE ONE TABLET BY MOUTH ONCE A DAY 90 Jul 01, 2020 [id number] March 19, 2020 MONIKA HAMMER [facility] CHLORTHALIDONE 25MG TAB Discontinued TAKE ONE TABLET BY MOUTH ONCE A DAY 90 Jun 16, 2019 [id number] Apr 12, 2019 MONIKA HAMMER [facility] CHOLECALCIFEROL 1000UNT TAB Non-VA TAKE ONE TABLET BY MOUTH EVERY OTHER DAY Non-VA Docume nted by: MEGAN HAWK nted at: [facility] CYANOCOBALAMIN 1000MCG/ML INJ Active INJECT 100 0 MCG (1 ML) INTRAMUSCULARLY EVERY MONTH FOR B12 SUPPLEMENTATION. 3 Nov 03, 2020 [id number] Apr 23, 2020 THOM CHAMBERS [facility] CYANOCOBALAMIN 1000MCG/ML INJ Discontinued INJECT 100 0 MCG (1 ML) INTRAMUSCULARLY EVERY MONTH FOR B12 SUPPLEMENTATION. 3 Nov 17 0 [id number] Aug 07, 2019 THOM CHAMBERS [facility] [place] [facility] DIPHENHYDRAMINE HCL 25MG CAP Non-VA TAKE 1 CAPSULE BY MOUTH PRN Non-VA Documented by: THOM CHAMBERS Docsammi nted at: [facility] DOCUSATE NA 100MG CAP No n-VA TAKE 2 CAPSULES BY MOUTH ONCE A DAY Non-VA Documented by: THOM CHAMBERS Docume nted at: [facility] FISH OIL 1000MG (500MG DHA/EPA) CAP,ORAL Non-VA TAKE 1 CAPSULE BY MOUTH ONCE A DAY Non-VA Documented by: MEGAN HAWK nted at: [facility] GABAPENTIN 100MG CAP Active TAKE 1 CAPSULE BY M OUTH EVERY MORNING AND TAKE 1 CAPSULE BY MOUTH AT NOON AND TAKE 2 CAPSULES BY MOUTH AT BEDTIME 360 Jul 06, 2020 [id number] March 31, 2020 ELEUTERIO LIVINGSTON [facility] [place] [facility] GLUCAGON 1MG/GABRIELLA INJ,EMERGENCY KIT INJEC T 1MG SUBCUTANEOUSLY NEEDED FOR SEVERE HYPOGLYCEMIA 1 Nov 30, 2019 [id number] Nov 03, 2019 [facility] [place] INSULIN,ASPART,HUMAN 100U/ML,NOVOLOG,FLEXPEN,3ML Active: On Hold INJECT 20 UNITS SUBCUTANEOUSLY BEFORE BREAKFAST AND INJECT 20 UNITS BEFORE LUNCH AND INJECT 26 UNITS BEFORE SUPPER AND INJECT 24 UNITS SNACK FOR BLOOD SUGAR CONTROL. ADMINISTER 10 MINUTES BEFORE FOOD DIRECTED. REFRIGERATE UN-OPENED PENS. DISCARD CARTRIDGE 28 DAYS AFTER OPENING. PLUS CORRECTION Mar 01, 2021 [id number] ELEUTERIO LIVINGSTON [facility] INSULIN,ASPART,HUMAN 100U/ML,NOVOLOG,FLEXPEN,3ML Discontinue d INJECT 20 UNITS SUBCUTANEOUSLY BEFORE BREAKFAST AND INJECT 20 UNITS BEFORE LUNCH AND INJECT 24 UNITS BEFORE SUPPER AND INJECT 24 UNITS SNACK FOR BLOOD SUGAR CONTROL. ADMINISTER 10 MINUTES BEFORE FOOD DIRECTED. REFRIGERATE UN-OPENED PENS. DISCARD CARTRIDGE 28 DAYS AFTER OPENING. PLUS CORRECTION Jan 26, 2021 [id number] Jan 28, 2020 ELEUTERIO LIVINGSTON [facility] INSULIN,ASPART,HUMAN 100U/ML,NOVOLOG,FLEXPEN,3ML Discontinue d INJECT 20 UNITS SUBCUTANEOUSLY BEFORE MEALS FOR BLOOD SUGAR CONTROL. ADMINISTER 10 MINUTES BEFORE FOOD DIRECTED. REFRIGERATE UN-OPENED PENS. DISCARD CARTRIDGE 28 DAYS AFTER OPENING. PLUS CORRECTION FOR BLOOD SUGAR CONTROL. ADMINISTER 10 MINUTES BEFORE FOOD DIRECTED. REFRIGERATE UN-OPENED PENS. DISCARD CARTRIDGE 28 DAYS AFTER OPENING. PLUS CORRECTION 30 Nov 16, 2020 [id number] Nov 16 ELEUTERIO LIVINGSTON [facility] [place] [facility] INSULIN,ASPART,HUMAN 100U/ML,NOVOLOG,FLEXPEN,3ML Discontinue d INJECT 15 UNITS SUBCUTANEOUSLY EVERY MORNING BEFORE MEAL AND INJECT 15 UNITS WITH LUNCH AND INJECT 15 UNITS WITH SUPPER AND INJECT 20 UNITS WITH SNACK FOR BLOOD SUGAR CONTROL. ADMINISTER 10 MINUTES BEFORE FOOD DIRECTED. REFRIGERATE UN-OPENED PENS. DISCARD CARTRIDGE 28 DAYS AFTER OPENING. Dec 22, 2019 [id number] Oct 12, 2019 ELEUTERIO LIVINGSTON [facility] [place] [facility] INSULIN,GLARGINE,HUMAN 100 UNIT/ML INJ,SOLOSTAR,3ML Active INJECT 50 UNITS SUBCUTANEOUSLY EVERY MORNING FOR BLOOD SUGAR CONTROL. ADMINISTER AT SAME TIME EACH DAY DIRECTED. DISCARD ANY OPEN CARTRIDGE AFTER 28 DAYS. Sep 23, 2020 [id number] Jan 28, 2020 ELEUTERIO LIVINGSTON [facility] INSULIN,GLARGINE,HUMAN 100 UNIT/ML INJ,SOLOSTAR,3ML Disconti nued INJECT 45 UNITS SUBCUTANEOUSLY EVERY MORNING FOR BLOOD SUGAR CONTROL. ADMINISTER AT SAME TIME EACH DAY DIRECTED. DISCARD ANY OPEN CARTRIDGE AFTER 28 DAYS. Oct 23, 2019 [id number] Aug 30, 2019 ELEUTERIO LIVINGSTON [facility] LACTOBACILLUS ACIDOPHILUS TAB,CHEWABLE Non-VA CHEW ONE TABLET BY MOUTH ONCE A DAY Non-VA Documented by: MEGAN HAWKed at: [facility] LANCET,SOFTCLIX Active USE LANCET 5 TIME S A DAY FOR TESTING BLOOD GLUCOSE DIRECTED 500 Dec 28, 2020 [id number] March 19, 2020 ELEUTERIO LIVINGSTON [facility] [place] [facility] LANCET,SOFTCLIX Discontinued USE LANCET 5 TIME S A DAY FOR TESTING BLOOD GLUCOSE DIRECTED 500 Jan 11, 2020 [id number] Sep 29, 2019 ELEUTERIO PATEL [facility] [place] [facility] MAGNESIUM OXIDE 400MG TAB Non-VA TAKE ONE TABLET BY MOUTH ONCE A DAY Non-VA Documented by: MEGAN HAWK nted at: [facility] METOPROLOL SUCCINATE 200MG TAB,SA TAKE O NE-HALF TABLET BY MOUTH EVERY EVENING FOR HEART/BLOOD PRESSURE. SWALLOW WHOLE, DO NOT CRUSH OR CHEW (TABLETS MAY BE CUT IN HALF). 45 March 18, 2020 [id number] Dec 28, 2019 STANISLAV HAMMER [facility] NEEDLE 22G 1.5IN USE NEEDLE FOR EVERY MONTH 1 Nov 12, 2019 [id number] Feb 07, 2019 ADELAIDA CLIFFORD [facility] [place] [facility] NEEDLE,PEN 31G,5MM Discontinued USE NEEDLE SUBCUTANE OUSLY 5 TIMES A DAY - THIS IS A SINGLE USE NEEDLE AND SHOULD BE DISCARDED AFTER USE 500 Dec 21, 2019 [id number] Sep 28, 2019 ELEUTERIO LIVINGSTON [facility] POTASSIUM CHLORIDE 10MEQ TAB,SA Active TAKE TWO TABLETS BY MOUTH TWO TIMES A DAY FOR POTASSIUM SUPPLEMENTATIONTAKE WITH FOOD 360 Dec 12, 2020 [id number] Mar 02, 2020 [facility] 15 POTASSIUM CHLORIDE 10MEQ TAB,SA Discontinued TAKE ONE TABLET BY MOUTH THREE TIMES A DAY WITH MEALS FOR POTASSIUM SUPPLEMENTATIONTAKE WITH FOOD 180 March 16, 2020 [id number] Nov 29, 2019 ELEUTERIO LIVINGSTON [facility] [place] [facility] POTASSIUM CHLORIDE 10MEQ TAB,SA Discontinued TAKE ONE TABLET BY MOUTH THREE TIMES A DAY WITH MEALS FOR POTASSIUM SUPPLEMENTATIONTAKE WITH FOOD 180 May 26, 2019 [id number] Jan 24, 2019 [facility] [place] [facility] SYRINGE 2.5-3ML/NDL 25G 1IN Active USE 1 SYRINGE EVERY MONTH 3 Feb 21, 2021 [id number] March 20, 2020 [facility] SYRINGE 2.5-3ML/NDL 25G 1IN Discontinued USE 1 SYRINGE EVERY Thu 3 March 18, 2020 [id number] Dec 21, 2019 [facility] TESTOSTERONE CYPIONATE 200MG/ML INJ,1ML (IN OIL) Active INJECT 200 MG (1 ML) INTRAMUSCULARLY EVERY MONTH FOR HORMONE REPLACEMENT 1 May 18, 2020 [id number] April 06, 2020 ADELAIDA CLIFFORD [facility] [place] [facility] TESTOSTERONE CYPIONATE 200MG/ML INJ,1ML (IN OIL) Discontinue d INJECT 200 MG (1 ML) INTRAMUSCULARLY EVERY MONTH FOR HORMONE REPLACEMENT 1 March 25, 2020 [id number] Oct 25, 2019 ADELAIDA CLIFFORD [facility] [facility] TESTOSTERONE CYPIONATE 200MG/ML INJ,1ML (IN OIL) Discontinue d INJECT 200 MG (1 ML) INTRAMUSCULARLY EVERY MONTH FOR HORMONE REPLACEMENT 1 Nov 06, 2019 [id number] Sep 25, 2019 ADELAIDA CLIFFORD [facility] [place] [facility] TESTOSTERONE CYPIONATE 200MG/ML INJ,1ML (IN OIL) Discontinue d INJECT 200 MG (1 ML) INTRAMUSCULARLY EVERY MONTH FOR HORMONE REPLACEMENT 1 May 14, 2019 [id number] Apr 10, 2019 ADELAIDA CLIFFORD [facility] TRAMADOL HCL 50MG TAB Active TAKE 1 TO 2 TABLET S BY MOUTH EVERY 6 HOURS NEEDED FOR PAIN 180 Jul 21, 2020 [id number] March 30, 2020 [facility] TRAMADOL HCL 50MG TAB Discontinued TAKE 1 TO 2 TABLET S BY MOUTH EVERY 6 HOURS NEEDED FOR PAIN 180 Jun 06, 2020 [id number] Jan 11, 2020 [facility] TRAMADOL HCL 50MG TAB Discontinued TAKE 1 TO 2 TABLET S BY MOUTH EVERY 6 HOURS NEEDED FOR PAIN 180 Jun 06, 2020 [id number] Dec 06, 2019 [facility] TRAMADOL HCL 50MG TAB Discontinued TAKE 1 TO 2 TABLET S BY MOUTH EVERY 6 HOURS NEEDED FOR PAIN 180 Dec 14, 2019 [id number] Nov 15, 2019 DANTE VALVERDE [facility] [place] [facility] TRAMADOL HCL 50MG TAB Discontinued TAKE 1 TO 2 TABLET S BY MOUTH EVERY 6 HOURS NEEDED FOR PAIN 180 Jul 06, 2019 [id number] May 26, 2019 [facility] [place] [facility] TRIAMCINOLONE ACETONIDE 0.5% CREAM,TOP Active A PPLY SPARINGLY TO AFFECTED AREA ONCE A DAY NEEDED FOR RASH 45 Jul 15, 2020 [id number] April 01 0 THOM CHAMBERS [facility] [place] [facility] TRIAMCINOLONE ACETONIDE 0.5% CREAM,TOP Discontinued A PPLY SPARINGLY TO AFFECTED AREA ONCE A DAY NEEDED FOR RASH 45 Oct 12, 2019 [id number] Jul THOM CHAMBERS [facility] [place] [facility] Problems (Conditions): All historical and current Section Date Range: From patient's date of to the date document was create d. This section includes a list of Problems (Conditions) know n to [facility] for the patient. It includes both active and inacti ve problems (conditions). The data comes from all [facility] treatment facilities. Problem Status Problem Code Date of Onset Date of Resolution Comm ent(s) Provider Source Basal cell carcinoma of scalp Active [id number] REYESTHOM [facility] [place] [facility] Chronic back pain Active [id number] TERRIE CHAMBERS [facility] [place] [facility] Chronic kidney disease stage 3 Active 142988931 THOM CHAMBERS [facility] [place] [facility] Constipation Active 35685022 THOM CHAMBERS [facility] [place] [facility] Diabetes mellitus Active 06015694 REYESTHOM [facility] [place] [facility] Diabetic neuropathy Active 073455612 Neha CHAMBERS [facility] [place] [facility] Essential hypertension Active 59759613 REYES THOM [facility] [place] [facility] Hyperlipidemia Active 58890417 THOM CHAMBERS [facility] [place] [facility] Hypogonadism Active 86024432 THOM CHAMBERS [facility] [place] [facility] Sleep apnea Active 32876646 THOM CHAMBERS RN [facility] [place] [facility] Radiology Reports: +/- 30 days of the encounter No Data Provided for This Section Pathology Reports: +/- 30 days of the encounter No Data Provided for This Section Encounter Notes: All associated encounter notes This section contains the clinical notes associated to the Encounter. Date/Time Encounter Note(s) Provider Source Nov 30, 2019 01:43 PM PHARMACY NOTE: LOCAL TITLE: EK-PHARMACY REFILL STANDARD TITLE: PHARMACY NOTE DATE OF NOTE: NOV 30, 2019@13:43 ENTRY DATE: NOV 30, 2019@13:43:10 AUTHOR: VASU GREGORIO EXP COSIGNER: URGENCY: STATUS: COMPLETED EK-PHARMACY REFILL Has ADDENDA madison mail request ((((((((((((((((MAIL))))))))))))))) 39) TRAMADOL HCL 50MG TAB Qty: 180 for 30 ACTIVE Issu:06-13-19 days Sig: TAKE 1 TO 2 TABLETS BY Refills: 0 Last:11-15-19 MOUTH EVERY 6 HOURS NEEDED FOR PAIN Expr:12-14-19 FUTURE APPOINTMENTS: DEC 01, 2019@11:30 Clinic: TO-CLIN LAB-NONFAST YOEL N/C DEC 14, 2019@15:00 Clinic: TO-PHARM PACT 5 PHONE DEC 15, 2019@13:00 Clinic: [facility] JANEE PACT NURSE JAN 12, 2020@14:00 Clinic: TOMICHAELA WELLER PACT VACCINE APRIL 05, 2020@08:00 Clinic: TO-CLIN LAB FAST JANEE N/C APR 12, 2020@09:00 Clinic: [facility] JANEE-PACT TEAM 1 PCP FUTURE LISETH REMINDERS: *If approved, please renew prescription, *If denied,PLEASE CO-SIGN OUTBOARD [employer] EXPERIMENTAL MECHANIC TO NOTIFY PATIENT FOR ANY REASON FOR DENIAL *Pharmacy staff does not contact patients regarding the outcome of the request /noa/ vasu gregorio lpn NURSE Signed: 11/30/2019 13:43 Receipt Acknowledged By: 11/30/2019 14:29 /noa/ THOM INGRAM 11/30/2019 ADDENDUM STATUS: COMPLETED PCP [facility] consult: ADDED COMMENT 07/01/19 11:36 SANDEEP BARKSDALE GLORIA J [facility] Appointment has been scheduled. [facility] Appointment Date: 07/14/2019 @ 11:00 AM [facility] Provider: [facility] PSP-'s Scheduled Provider: PID: [phone] NELLA GROVE [address] [facility] [address] P: DO NOT REFER F: [id number] 07.14.19 ~ 07.13.20 plan/order: 1. please notify vet that [facility] PCP needs to fax RX to [facility] to have filled. 2. add tramadol urine reflex and SARAH to non-fast labs 12/01/19 /noa/ THOM INGRAM Signed: 11/30/2019 14:27 Receipt Acknowledged By: * AWAITING SIGNATURE * ALLA NARAYANAN * AWAITING SIGNATURE * KILLIAN DAVID * AWAITING SIGNATURE * REMY RODRIGUEZ JOYCE M [facility]
--- OUTSIDE RECORDS SUMMARY | 2020-04-18 09:49 | XMS REPORT | Encounter Summary ---
Author [facility] Address [address] [place] [phone] Phone Unavailable Care Team Providers Care Student Name Role Phone REYES THOM PCP Unavailable [...] to Policy Woodard [facility] ([facility]) MEDICARE ADVANTAGE MCR ([facility]) Nov 09, 2017 [id number] [phone] SIMI COVARRUBIAS PATIENT [facility] ([facility]) MEDICARE ADVANTAGE MCR ([facility]) Nov 09, 2017 [id number] [phone] SIMI COVARRUBIAS PATIENT [facility] ([facility]) MEDICARE ADVANTAGE MCR ([facility]) Nov 09, [id number] SIMI COVARRUBIAS PATIENT Selected Encounter This section includes the information on record at [facility] for the Encounter. Date/Time Encounter Type Encounter Description Reason Provider Source Nov 16, 2019 03:00 PM Outpatient Encounter CLINICAL PHARMACY ICD -10-CM E11.9 Type 2 diabetes mellitus without complications with Provider Comments: Diabetes mellitus (SCT [id number]) BALTRELEUTERIO ROJAS [facility] [place] [facility] IHE Encounter Template Text not used by [facility] Assessments - Encounter Diagnoses This section includes the primary and secondary diag noses documented for the Encounter. Date/Time Primary/Secondary Diagnosis Diagnosis Name Provider Source Nov 17, 2019 01:46 PM PRIMARY Type 2 diabetes mellitus w ithout complications [facility] [place] [facility] Plan of Treatment: Future Appointments (+ 6 months) and Future Tests (+/- 45 day s) The Plan of Treatment section includes future care activities for the patient fr om all [facility] treatment facilities. This section includes future appointments and fu ture orders which are active, pending or scheduled. Future Appointments This section includes appointments that were scheduled t o occur 6 months from the date of the Encounter, up to a maximum of 20 appointme nts. The data comes from all [facility] treatment facilities. Appointment Date/Time Appointment Type Appointment Facili ty Name Nov 17, 2019 10:00 AM AMBULATORY - NONE [facility] Dec 01, 2019 11:30 AM AMBULATORY - MEDICINE [facility] Dec 14, 2019 03:00 PM AMBULATORY - NONE [facility] [place] [facility] Dec 15, 2019 01:00 PM AMBULATORY - NONE [facility] Jan 12, 2020 10:00 AM AMBULATORY - NONE [facility] Jan 26, 2020 03:00 PM AMBULATORY - NONE [facility] [place] [facility] Feb 29, 2020 02:30 PM AMBULATORY - NONE [facility] [place] [facility] March 20, 2020 08:00 AM AMBULATORY - MEDICINE [facility] March 28, 2020 11:30 AM AMBULATORY - NONE [facility] [place] [facility] Apr 19, 2020 11:00 AM AMBULATORY - NONE [facility] [place] [facility] Apr 26, 2020 10:45 AM AMBULATORY - NONE [facility] [place] 15 Surgical [...] Range Comment Dec 01, 2019 11:09 AM [facility] CBC & DIFF Specimen Type: BLOOD No [...] 0.5 % Dec 01, 2019 11:09 AM [facility] RENAL FUNCTION PANEL Specimen Type: PLASMA No comment entered. *CREATININE 1.48 mg/dL H 0.7-1.3 UREA NITROGEN mg/dL 19 mg/dL 9-25 GLUCOSE 99 mg/dL 72-99 SODIUM 143 mEq/L 136-145 POTASSIUM 3.4 mEq/L L 3.5-5.0 CALCIUM (mg/dL) 10.0 mg/dL 8.4-10.4 PHOSPHORUS INORGANIC 2.6 mg/dL 2.3-4.7 ALBUMIN 4.5 g/dl 3.4-5.0 CHLORIDE 101 mEq/L 98-107 CO2 34 mEq/L H 22-31 EGFR 46.5 Dec 01, 2019 11:09 AM [facility] URINALYSIS Specimen Type: URINE No comment entered. [...] RBC/HPF 0-2 Dec 01, 2019 11:09 AM [facility] MAGNESIUM (mg/dL) Specimen Type: PLASMA No comment entered. MAGNESIUM (mg/dL) 2.4 mg/dl 1.6-2.6 Dec 01, 2019 11:09 AM [facility] HEPATIC FUNCTION PANE L Specimen Type: PLASMA No comment entered. PROTEIN,TOTAL 7.2 g/dL 6.0-8.6 ALBUMIN 4.5 g/dl 3.4-5.0 TOTAL BILIRUBIN 0.7 mg/dL 0.2-1.2 DIRECT BILIRUBIN 0.30 mg/dL 0-0.5 ASPARTATE TRANSAMINASE 29 U/L 5-34 ALANINE AMINOTRANSFERASE 20 U/L 8-40 ALKALINE PHOSPHATASE 98 U/L 40-150 Dec 01, 2019 11:09 AM [facility] MICROALBUMIN (CO,EK) Specimen Type: URINE No comment entered. *MICROALBUMIN(CONC) 116.8 mg/dL - *MICROALBUMIN(SPOT) 651.8 mcg/mg cr HH 0-29 *CREATININE mg/dL 179.2 mg/dl Not Avail. Dec 01, 2019 11:09 AM [facility] COMPREHENSIVE METABOL IC PANEL Specimen Type: PLASMA [...] EGFR 46.5 Dec 01, 2019 11:09 AM [facility] TRAMADOL SCRN W/REFLE X,URINE Specimen Type: URINE Comment: normalcy status - Abnormal Tramadol Screen This test was performed using a forensic kit that is intended for the qualitative and semi- quantitative determination of Tramadol in human urine and has not been cleared or approved by the FDA for diagnostic purposes. The analytical performance characteristics of this test have been determined by [facility]. This test should not be used for diagnosis without confirmation by other, more specific, confirmatory analytical methodologies. Test performed by [facility] [address] [id number] Flight Engineer Manager: Baron Domingo M.D.,Ph.D. Test Reported by [facility] [place], [facility], [address] [place] [address] Lawrence Mckeon M.D., Ph.D., Director of Laboratories , CLIA [id number] O-Desmethyltramadol This test was developed and its analytical performance characteristics have been determined by [facility]. It has not been cleared or approved by the US Food and Drug Administration. This assay has been validated pursuant to the CLIA regulations and is used for clinical purposes. *TRAMADOL SCREEN, URINE Positive Negati ve *TRAMADOL QUANT, URINE > 5000 ng/mL H < 10 0 *DESMETHYLTRAMADOL, URINE >5000 ng/mL H < 100 Dec 01, 2019 11:09 AM [facility] DRUGS OF ABUSE SCREEN Specimen Type: URINE No comment entered. AMPHETAMINE NEG Negative BARBITURATES NEG Negative BENZODIAZEPINES NEG Negative CANNABINOIDS NEG Negative COCAINE NEG Negative OPIATES NEG Negative PHENCYCLIDINE(PCP) NEG Negative *CREATININE,DRUG SCR 177.22 mg/dL METHADONE(UDS) NEG Negative OXYCODONE (URINE) NEG Negative ALCOHOL-URINE,RANDOM (SOSA,WI,EK) NEG mg/dL <10 Dec 01, 2019 11:09 AM [facility] URINALYSIS Specimen Type: URINE No comment entered. [...] 0-2 Nov 10, 2019 11:[address] [facility] HEMOGLOBIN A1C Specimen Type: BLOOD No comment entered. HEMOGLOBIN A1C 10.6 % H 4.0-6.0 Nov 10, 2019 11:[address] [facility] BASIC METABOLIC PANEL Specimen Type: PLASMA No comment entered. *CREATININE 1.60 mg/dL H 0.7-1.3 UREA NITROGEN mg/dL 24 mg/dL 9-25 GLUCOSE 226 mg/dL H 72-99 SODIUM 140 mEq/L 136-145 POTASSIUM 3.9 mEq/L 3.5-5.0 CALCIUM (mg/dL) 9.3 mg/dL 8.4-10.4 CHLORIDE 101 mEq/L 98-107 CO2 29 mEq/L 22-31 EGFR 42.6 Nov 10, 2019 11:[address] [facility] TESTOSTERONE (SOSA ,WI,EK) Specimen Type: SERUM No comment entered. TESTOSTERONE (SOSA,WI,EK) 371 ng/dL 221-87 1 Nov 10, 2019 11:[address] [facility] CBC & DIFF Specimen Type: BLOOD No [...] 0.3 % Nov 10, 2019 11:39 AM [facility] [employer] DIV PROSTATIC SP ECIFIC ANTIGEN(TOTAL) Sp ecimen Type: SERUM No comment entered. PROSTATIC SPECIFIC ANTIGEN(TOTAL) 1.08 ng/mL 0-4 Vital Signs: All taken on the encounter date This section contains inpatient and outpatient Vital Signs collected on the date of the Encounter. Date/Time Temperature Pulse Blood Pressure Respiratory Rate SP02 Pa in Height Weight Body Mass Index Source Nov 16, 2019 02:12 PM 96.5 F 52 /min 132/58 mm[Hg] 16 /min 91 % 0 183.1 lb 31 [facility] [employer] DIV Nov 16, 2019 01:44 PM 97.3 F 58 /min 162/80 mm[Hg] 18 /min 94 % 0 [facility] [employer] [place] Immunizations: All administered on the encounter date [...] Adverse Reactions (ADR s) on record with [facility] for the patient. The data comes from a [facility] treatment facilities. It does not list Allergies/ADRs that were removed or entered in error. Some allergies/ADRs may be reported in t Immunization section. Allergen Event Date Event Type Reaction(s) Severity Source LISINOPRIL Dec 01, 2017 Propensity to adverse reactions to drug (disorder) Renal impairment [facility] 15 METFORMIN Dec 01, 2017 Propensity to adverse reactions to drug (disorder) Renal impairment [facility] 15 Medications: VA dispensed (-15 months) and Non-VA Documented (Obtained Outside A) Section Date Range: 1) prescriptions processed by a [facility] pharmacy in the last 15 m [facility], and 2) all medications recorded in [...] TIMES A DAY 400 Sep 12, 2020 [id number] Feb 29, 2020 REGGIE LIVINGSTON [facility] ACCU-CHEK ROSINA PLUS (GLUCOSE) TEST STRIP Discontinued USE 1 STRIP FOR TESTING FOUR TIMES A DAY 400 Sep 15, 2019 [id number] Jun 13, 2019 ELEUTERIO MAURO [facility] ALCOHOL PREP PAD Discontinued USE 1 PAD ON SKIN FOUR TIMES A DAY 40 0 Apr 25, 2020 [id number] Nov 29, 2019 ELEUTERIO LIVINGSTON [facility] [place] [facility] ALCOHOL PREP PAD Discontinued USE 1 PAD ON SKIN FOUR TIMES A DAY 40 0 Sep 15, 2019 [id number] Apr 18, [address] [facility] ALLOPURINOL 100MG TAB Active TAKE ONE TABLET BY MOUTH ONCE A DAY FOR GOUT. TAKE WITH PLENTY OF WATER 90 Sep 23, 2020 [id number] Mar 05, [address] [facility] [place] [facility] ALLOPURINOL 100MG TAB Discontinued TAKE ONE TABLET BY MOUTH ONCE A DAY FOR GOUT. TAKE WITH PLENTY OF WATER 90 Dec 30, 2019 [id number] Sep 17, [address] [facility] [place] [facility] ALOGLIPTIN 12.5MG TAB Active TAKE ONE TABLET BY MOUTH O NCE A DAY FOR DIABETES 90 Sep 12, 2020 [id number] Mar 04, 2020 BALTRELEUTERIO ROJAS [facility] [place] [facility] ALOGLIPTIN 12.5MG TAB Discontinued TAKE ONE TABLET BY MOUTH ONCE A DAY FOR DIABETES 90 Dec 22, 2019 [id number] Jun 18, [address] [facility] [place] [facility] AMLODIPINE BESYLATE 10MG TAB Discontinued TAKE ONE TA BLET BY MOUTH EVERY MORNING FOR HEART/BLOOD PRESSURE 90 Jun 10, 2019 [id number] Feb 25, [address] [facility] [place] [facility] AMLODIPINE BESYLATE 10MG TAB TAKE ONE TA BLET BY MOUTH EVERY MORNING FOR HEART/BLOOD PRESSURE 90 Apr 12, 2020 [id number] Feb 10, 2020 SILVINA CHAMBERS [facility] ASPIRIN 81MG TAB,CHEWABLE Non-VA CHEW ONE TABLET BY MOUTH ONCE A DAY Non-VA Documented by: MEGAN HAWK nted at: [facility] ATORVASTATIN CA 20MG TAB Active TAKE ONE TABLET BY MOUTH ONCE A DAY FOR CHOLESTEROL. REPORT ANY UNEXPLAINED MUSCLE PAIN OR WEAKNESS TO YOUR DOCTOR. 90 Jan 02, 2021 [id number] March 24, 2020 NELLA GROVE [facility], [place] 15 ATORVASTATIN CA 40MG TAB Discontinued TAKE ONE-HALF T ABLET BY MOUTH AT BEDTIME FOR CHOLESTEROL. REPORT ANY UNEXPLAINED MUSCLE PAIN OR WEAKNESS TO YOUR DOCTOR. 45 Jul 15, 2020 [id number] Oct 14, [address] [facility] [place] [facility] ATORVASTATIN CA 40MG TAB Discontinued TAKE ONE-HALF T ABLET BY MOUTH AT BEDTIME FOR CHOLESTEROL. REPORT ANY UNEXPLAINED MUSCLE PAIN OR WEAKNESS TO YOUR DOCTOR. 45 Oct 12, 2019 [id number] Jul 16, [address] [facility] [place] [facility] CALCIUM CARBONATE 500MG TAB,CHEWABLE Non-VA CHEW ONE TABLET BY MOUTH PRN Non-VA Documented by: THOM CHAMBERSume nted at: [facility] CHLORTHALIDONE 25MG TAB Active TAKE ONE TABLET BY MOUTH ONCE A DAY 90 Jul 01, 2020 [id number] March 19, [address] [facility] [place] [facility] CHLORTHALIDONE 25MG TAB Discontinued TAKE ONE TABLET BY MOUTH ONCE A DAY 90 Jun 16, 2019 [id number] Apr 12, [address] [facility] [place] [facility] CHOLECALCIFEROL 1000UNT TAB Non-VA TAKE ONE TABLET BY MOUTH EVERY OTHER DAY Non-VA Docume nted by: MEGAN HAWK Docume nted at: [facility] CYANOCOBALAMIN 1000MCG/ML INJ Active INJECT 100 0 MCG (1 ML) INTRAMUSCULARLY EVERY MONTH FOR B12 SUPPLEMENTATION. 3 Nov 03, 2020 [id number] Apr 23, [address] [facility] [place] [facility] CYANOCOBALAMIN 1000MCG/ML INJ Discontinued INJECT 100 0 MCG (1 ML) INTRAMUSCULARLY EVERY MONTH FOR B12 SUPPLEMENTATION. 3 Nov 17 0 [id number] Aug 07, [address] [facility] [place] [facility] DIPHENHYDRAMINE HCL 25MG CAP Non-VA TAKE 1 CAPSULE BY MOUTH PRN Non-VA Documented by: THOM CHAMBERS nted at: [facility] DOCUSATE NA 100MG CAP No n-VA TAKE 2 CAPSULES BY MOUTH ONCE A DAY Non-VA Documented by: THOM CHAMBERS nted at: [facility] FISH OIL 1000MG (500MG DHA/EPA) CAP,ORAL Non-VA TAKE 1 CAPSULE BY MOUTH ONCE A DAY Non-VA Documented by: MEGAN HAWK Docume nted at: [facility] GABAPENTIN 100MG CAP Active TAKE 1 CAPSULE BY M OUTH EVERY MORNING AND TAKE 1 CAPSULE BY MOUTH AT NOON AND TAKE 2 CAPSULES BY MOUTH AT BEDTIME 360 Jul 06, 2020 [id number] March 31, 2020 ELEUTERIO LIVINGSTON [facility] [place] [facility] GLUCAGON 1MG/GABRIELLA INJ,EMERGENCY KIT INJEC T 1MG SUBCUTANEOUSLY NEEDED FOR SEVERE HYPOGLYCEMIA 1 Nov 30, 2019 [id number] Nov 03, [address] [facility] [place] [facility] INSULIN,ASPART,HUMAN 100U/ML,NOVOLOG,FLEXPEN,3ML Active: On Hold INJECT 20 UNITS SUBCUTANEOUSLY BEFORE BREAKFAST AND INJECT 20 UNITS BEFORE LUNCH AND INJECT 26 UNITS BEFORE SUPPER AND INJECT 24 UNITS SNACK FOR BLOOD SUGAR CONTROL. ADMINISTER 10 MINUTES BEFORE FOOD DIRECTED. REFRIGERATE UN-OPENED PENS. DISCARD CARTRIDGE 28 DAYS AFTER OPENING. PLUS CORRECTION Mar 01, 2021 [id number] [facility] [place] [facility] INSULIN,ASPART,HUMAN 100U/ML,NOVOLOG,FLEXPEN,3ML Discontinue d INJECT 20 UNITS SUBCUTANEOUSLY BEFORE BREAKFAST AND INJECT 20 UNITS BEFORE LUNCH AND INJECT 24 UNITS BEFORE SUPPER AND INJECT 24 UNITS SNACK FOR BLOOD SUGAR CONTROL. ADMINISTER 10 MINUTES BEFORE FOOD DIRECTED. REFRIGERATE UN-OPENED PENS. DISCARD CARTRIDGE 28 DAYS AFTER OPENING. PLUS CORRECTION 30 Jan 26, 2021 [id number] Jan 28, 2020 [facility] INSULIN,ASPART,HUMAN 100U/ML,NOVOLOG,FLEXPEN,3ML Discontinue d INJECT 20 UNITS SUBCUTANEOUSLY BEFORE MEALS FOR BLOOD SUGAR CONTROL. ADMINISTER 10 MINUTES BEFORE FOOD DIRECTED. REFRIGERATE UN-OPENED PENS. DISCARD CARTRIDGE 28 DAYS AFTER OPENING. PLUS CORRECTION FOR BLOOD SUGAR CONTROL. ADMINISTER 10 MINUTES BEFORE FOOD DIRECTED. REFRIGERATE UN-OPENED PENS. DISCARD CARTRIDGE 28 DAYS AFTER OPENING. PLUS CORRECTION Nov 16, 2020 [id number] Nov 16 [facility] [place] [facility] INSULIN,ASPART,HUMAN 100U/ML,NOVOLOG,FLEXPEN,3ML Discontinue d INJECT 15 UNITS SUBCUTANEOUSLY EVERY MORNING BEFORE MEAL AND INJECT 15 UNITS WITH LUNCH AND INJECT 15 UNITS WITH SUPPER AND INJECT 20 UNITS WITH SNACK FOR BLOOD SUGAR CONTROL. ADMINISTER 10 MINUTES BEFORE FOOD DIRECTED. REFRIGERATE UN-OPENED PENS. DISCARD CARTRIDGE 28 DAYS AFTER OPENING. Dec 22, 2019 [id number] Oct 12, 2019 [facility] [place] [facility] INSULIN,GLARGINE,HUMAN 100 UNIT/ML INJ,SOLOSTAR,3ML Active INJECT 50 UNITS SUBCUTANEOUSLY EVERY MORNING FOR BLOOD SUGAR CONTROL. ADMINISTER AT SAME TIME EACH DAY DIRECTED. DISCARD ANY OPEN CARTRIDGE AFTER 28 DAYS. Sep 23, 2020 [id number] Jan 28, 2020 [facility] INSULIN,GLARGINE,HUMAN 100 UNIT/ML INJ,SOLOSTAR,3ML Disconti nued INJECT 45 UNITS SUBCUTANEOUSLY EVERY MORNING FOR BLOOD SUGAR CONTROL. ADMINISTER AT SAME TIME EACH DAY DIRECTED. DISCARD ANY OPEN CARTRIDGE AFTER 28 DAYS. 15 Oct 23, 2019 [id number] Aug 30, [address] [facility] LACTOBACILLUS ACIDOPHILUS TAB,CHEWABLE Non-VA CHEW ONE TABLET BY MOUTH ONCE A DAY Non-VA Documented by: MEGAN HAWK nted at: [facility] LANCET,SOFTCLIX Active USE LANCET 5 TIME S A DAY FOR TESTING BLOOD GLUCOSE DIRECTED 500 Dec 28, 2020 [id number] March 19, [address] [facility] [place] [facility] LANCET,SOFTCLIX Discontinued USE LANCET 5 TIME S A DAY FOR TESTING BLOOD GLUCOSE DIRECTED 500 Jan 11, 2020 [id number] Sep 29, 2019 ELEUTERIO PATEL Laron [facility] DIV MAGNESIUM OXIDE 400MG TAB Non-VA TAKE ONE TABLET BY MOUTH ONCE A DAY Non-VA Documented by: MEGAN HAWK nted at: [facility] METOPROLOL SUCCINATE 200MG TAB,SA TAKE O NE-HALF TABLET BY MOUTH EVERY EVENING FOR HEART/BLOOD PRESSURE. SWALLOW WHOLE, DO NOT CRUSH OR CHEW (TABLETS MAY BE CUT IN HALF). 45 March 18, 2020 [id number] Dec 28, 2019 STANISLAV HAMMER [facility] NEEDLE 22G 1.5IN USE NEEDLE FOR EVERY MONTH Nov 12, 2019 [id number] Feb 07, [address] [facility] [place] [facility] NEEDLE,PEN 31G,5MM Discontinued USE NEEDLE SUBCUTANE OUSLY 5 TIMES A DAY - THIS IS A SINGLE USE NEEDLE AND SHOULD BE DISCARDED AFTER USE 500 Dec 21, 2019 [id number] Sep 28, [address] [facility] POTASSIUM CHLORIDE 10MEQ TAB,SA Active TAKE TWO TABLETS BY MOUTH TWO TIMES A DAY FOR POTASSIUM SUPPLEMENTATIONTAKE WITH FOOD 360 Dec 12, 2020 [id number] Mar 02, 2020 [facility] POTASSIUM CHLORIDE 10MEQ TAB,SA Discontinued TAKE ONE TABLET BY MOUTH THREE TIMES A DAY WITH MEALS FOR POTASSIUM SUPPLEMENTATIONTAKE WITH FOOD 180 March 16, 2020 [id number] Nov 29, 2019 BALTRELEUTERIO ROJAS [place] [facility] [place] POTASSIUM CHLORIDE 10MEQ TAB,SA Discontinued TAKE ONE TABLET BY MOUTH THREE TIMES A DAY WITH MEALS FOR POTASSIUM SUPPLEMENTATIONTAKE WITH FOOD 180 May 26, 2019 [id number] Jan 24, 2019 YANELY QUINTERO [facility] [place] SYRINGE 2.5-3ML/NDL 25G 1IN Active USE 1 SYRINGE EVERY MONTH 3 Feb 21, 2021 [id number] March 20, 2020 [facility] SYRINGE 2.5-3ML/NDL 25G 1IN Discontinued USE 1 SYRINGE EVERY Thu 3 March 18, 2020 [id number] Dec 21, 2019 [facility] TESTOSTERONE CYPIONATE 200MG/ML INJ,1ML (IN OIL) Active INJECT 200 MG (1 ML) INTRAMUSCULARLY EVERY MONTH FOR HORMONE REPLACEMENT 1 May 18, 2020 [id number] April 06, [address] [facility] [place] TESTOSTERONE CYPIONATE 200MG/ML INJ,1ML (IN OIL) Discontinue d INJECT 200 MG (1 ML) INTRAMUSCULARLY EVERY MONTH FOR HORMONE REPLACEMENT 1 March 25, 2020 [id number] Oct 25, [address] [facility] [place] [facility] TESTOSTERONE CYPIONATE 200MG/ML INJ,1ML (IN OIL) Discontinue d INJECT 200 MG (1 ML) INTRAMUSCULARLY EVERY MONTH FOR HORMONE REPLACEMENT 1 Nov 06, 2019 [id number] Sep 25, [address] [facility] [place] [facility] TESTOSTERONE CYPIONATE 200MG/ML INJ,1ML (IN OIL) Discontinue d INJECT 200 MG (1 ML) INTRAMUSCULARLY EVERY MONTH FOR HORMONE REPLACEMENT 1 May 14, 2019 [id number] Apr 10, [address] [facility] [place] [facility] TRAMADOL HCL 50MG TAB Active TAKE 1 TO 2 TABLET S BY MOUTH EVERY 6 HOURS NEEDED FOR PAIN 180 Jul 21, 2020 [id number] March 30, 2020 [facility]A [facility] TRAMADOL HCL 50MG TAB Discontinued TAKE 1 TO 2 TABLET S BY MOUTH EVERY 6 HOURS NEEDED FOR PAIN 180 Jun 06, 2020 [id number] Jan 11, 2020 GROVEMOUSTAPHAShellie [facility] [place] 15 TRAMADOL HCL 50MG TAB Discontinued TAKE 1 TO 2 TABLET S BY MOUTH EVERY 6 HOURS NEEDED FOR PAIN 180 Jun 06, 2020 [id number] Dec 06, 2019 ROSSY GROVE [facility] [place] 15 TRAMADOL HCL 50MG TAB Discontinued TAKE 1 TO 2 TABLET S BY MOUTH EVERY 6 HOURS NEEDED FOR PAIN 180 Dec 14, 2019 [id number] Nov 15, [address] [facility] [place] TRAMADOL HCL 50MG TAB Discontinued TAKE 1 TO 2 TABLET S BY MOUTH EVERY 6 HOURS NEEDED FOR PAIN 180 Jul 06, 2019 [id number] May 26, 2019 ROSSY GROVE [facility] [place] TRIAMCINOLONE ACETONIDE 0.5% CREAM,TOP Active A PPLY SPARINGLY TO AFFECTED AREA ONCE A DAY NEEDED FOR RASH 45 Jul 15, 2020 [id number] April [address] [facility] [place] [facility] TRIAMCINOLONE ACETONIDE 0.5% CREAM,TOP Discontinued A PPLY SPARINGLY TO AFFECTED AREA ONCE A DAY NEEDED FOR RASH 45 Oct 12, 2019 [id number] Jul [address] [facility] [place] [facility] Problems (Conditions): All [...] Source Basal cell carcinoma of scalp Active [id number] THOM CHAMBERS [facility] [place] [facility] Chronic back pain Active [id number] REYESTERRIE WALL [facility] [place] [facility] Chronic kidney disease stage 3 Active [id number] [facility] [place] [facility] Constipation Active [id number] THOM CHAMBERS [facility] [place] Diabetes mellitus Active [id number] THOM CHAMBERS [facility] [place] [facility] Diabetic neuropathy Active [id number] Neha CHAMBERS [facility] [place] [facility] Essential hypertension Active 83380911 [facility] [place] [facility] Hyperlipidemia Active [id number] [facility]HOM JEFF [facility] [place] [facility] Hypogonadism Active 10511331 [facility]AM[facility] [place] [facility] Sleep apnea Active [id number] RE[facility]HOM CRESPO [facility] [place] [facility] Radiology Reports: +/- 30 days of the encounter No Data Provided for This Section Pathology Reports: +/- 30 days of the encounter No Data Provided for This Section Encounter Notes: All associated encounter notes This section contains the clinical notes associated to the Encounter. Date/Time Encounter Note(s) Provider Source Nov 16, 2019 02:00 PM PHARMACY NOTE: LOCAL TITLE: EK-PHARMACY PRIMARY CARE STANDARD TITLE: PHARMACY NOTE DATE OF NOTE: NOV 16, 2019@14:00 ENTRY DATE: NOV 17, 2019@13:39:01 AUTHOR: REGGIE LIVINGSTON COSIGNER: URGENCY: STATUS: COMPLETED HALD,SIMI DENNY is a 72 yo MALE contacted clinic via telephone. Team: SATURNINO WELLER 1 *WH*; PCP: THOM CHAMBERS S: [place] reports doing well, in NAD. REports today his BG has been bouncing all over the place today because he checked multiple times and the BG was 400's, 190's, back up to 400's, and back to 113. He thinks he took too much insulin based on his CF which caused his BG to drop while driving to appt. Reports he started getting confused and lost, called his who instructed him to stop at nearest store. was able to find a store and got a regular soda and got his BG to come back up. thinks his meter is bad. reports his BG is going up even if he is not having any carbohydrates, though he isn't sure the meter is correct. HPI: At last appt correction factor with insulin aspart was started. [place] notes also being managed by Dr. Grove, non-VA provider, recently approved thru [employer]. [place] instructed to avoid co-management, thus plans to continue DM services with this radio script writer and other conditions will be deferred to Dr. Grove. DR. QUINTERO PHONE [phone]. Lifestyle: Physical Activity: walking/elliptica ~10-15 miles/day (2-3hrs/day) [...] beans; hot dog; beef stroganoff Snacks (22-23:00): large portions of bagel; hard boiled eggs, fruit (bananas, grapes, watermelon), cup-cake, cheese pop- corn; sandwich Medication Adherence (self-report): good 1. DIABETES Current Regimen: -insulin glargine 50 units QPM -insulin aspart 15 units TID AC meals + 20 units w/ snack -alogliptin 12.5mg ASA: yes [place]/ARB: no (CKD) Statin: moderate intensity Previously tried meds: metformin - needle board repairer recommends against d/t hx of BRIGIDO with SCr 1.7 liraglutide - N/V Diabetes Complications: Retinopathy: last eye exam 05/04/19; (-) Gastropathy: denies bloating after meals, early satiety, GI complaints Nephropathy: microalbuminuria (+) 06/2019; Peripheral neuropathy: denies numbness, burning, tingling in hands/feet Foot Exam: 10/23/2017 (-)Abnormal BG Readings: Self-reports is questioning the readings his meter is getting. Is getting readings from 100-400's. Hypoglycemia Episodes: Episodes today while driving to appt, otherwise denies Blood pressure: 120-140's/60-70's PMH: Computerized Problem List is the source for the followin. Diabetes mellitus 2. Diabetic neuropathy 3. Essential hypertension 4. Hyperlipidemia 5. Sleep apnea 6. Constipation 7. Chronic back pain 8. Hypogonadism 9. Basal cell carcinoma of scalp Allergies/ADRs: METFORMIN, LISINOPRIL Active Inpatient and Outpatient Medications (including Supplies): Issue Date Status Last Fill Outpatient Medications Refills Expiration 1) ACCU-CHEK ROSINA PLUS (GLUCOSE) METE R PENDING Qty: 1 Sig: USE DEVICE DIRECTED Refills: 0 BY PROVIDER - FOR SUPPORT OR REPLACEMENT CALL OR 2) ACCU-CHEK ROSINA PLUS(GLUCOSE) TEST STRIP ACTIVE Issu:09-12-19 Qty: 400 for 90 days Sig: USE 1 STRIP Refills: 3 Last:09-12-19 FOR TESTING FOUR TIMES A DAY Expr:09-12-20 3) ALCOHOL PREP PAD Qty: 400 for 60 d ays ACTIVE Issu:04-25-19 Sig: USE 1 PAD ON SKIN FOUR TIMES A Refills: 1 Last:09-25-19 DAY Expr:04-25-20 4) ALLOPURINOL 100MG TAB Qty: 90 for 90 ACTIVE (S) Issu:09-23-19 days Sig: TAKE ONE TABLET BY MOUTH Refills: 3 Last:12-16-19 ONCE A DAY FOR GOUT. TAKE WITH PLENTY Expr:09-23-20 OF WATER 5) ALOGLIPTIN 12.5MG TAB Qty: 90 for 90 ACTIVE Issu:09-12-19 days Sig: TAKE ONE TABLET BY MOUTH Refills: 2 Last:09-16-19 ONCE A DAY FOR DIABETES Expr:09-12-20 --takes as listed 6) AMLODIPINE BESYLATE 10MG TAB Qty: 90 ACTIVE Issu:04-12-19 for 90 days Sig: TAKE ONE TABLET BY Refills: 1 Last:11-12-19 MOUTH EVERY MORNING FOR HEART/BLOOD Expr:04-12-20 PRESSURE 7) ATORVASTATIN CALCIUM 40MG TAB Qty: 45 ACTIVE Issu:07-15-19 for 90 days Sig: TAKE ONE-HALF TABLET Refills: 3 Last:10-14-19 BY MOUTH AT BEDTIME FOR CHOLESTEROL. Expr:07-15-20 REPORT ANY UNEXPLAINED MUSCLE PAIN OR WEAKNESS TO YOUR DOCTOR. 8) CHLORTHALIDONE 25MG TAB Qty: 90 fo r 90 ACTIVE Issu:07-01-19 days Sig: TAKE ONE TABLET BY MOUTH Refills: 2 Last:09-20-19 ONCE A DAY Expr:07-01-20 9) CYANOCOBALAMIN 1000MCG/ML INJ Qty: 3 ACTIVE Issu:11-03-19 for 90 days Sig: INJECT 1000 MCG (1 Refills: 3 Last:11-05-19 ML) INTRAMUSCULARLY EVERY MONTH FOR Expr:11-03-20 B12 SUPPLEMENTATION. 10) GABAPENTIN 100MG CAP Qty: 360 for 90 ACTIVE Issu:07-06-19 days Sig: TAKE ONE CAPSULE BY MOUTH Refills: 2 Last:10-12-19 EVERY MORNING AND TAKE ONE CAPSULE AT Expr:07-06-20 NOON AND TAKE TWO CAPSULES AT BEDTIME 11) GLUCAGON 1MG/GABRIELLA INJ EMERGENCY KIT Qty: ACTIVE Issu:10-31-19 1 for 1 days Sig: INJECT 1MG Refills: 0 Last:11-03-19 SUBCUTANEOUSLY NEEDED FOR SEVERE Expr:11-30-19 HYPOGLYCEMIA 12) INSULIN,ASPART 100UN/ML CHANTELLE FLEXPE N 3ML ACTIVE Issu:12-21-18 Qty: 20 for 90 days Sig: INJECT 15 Refills: 0 Last:10-12-19 UNITS SUBCUTANEOUSLY EVERY MORNING Expr:12-22-19 BEFORE MEAL AND INJECT 15 UNITS WITH LUNCH AND INJECT 15 UNITS WITH SUPPER AND INJECT 20 UNITS WITH SNACK FOR BLOOD SUGAR CONTROL. ADMINISTER 10 MINUTES BEFORE FOOD DIRECTED. REFRIGERATE UN-OPENED PENS. DISCARD CARTRIDGE 28 DAYS AFTER OPENING. --takes 15 + CF w/ meals and 20 Untis + CF w/ snack 13) INSULIN,GLARGINE 100 UNT/ML 3ML YESENIA OSTAR ACTIVE Issu:09-23-19 Qty: 15 for 90 days Sig: INJECT 50 Refills: 3 Last:11-09-19 UNITS SUBCUTANEOUSLY EVERY MORNING FOR Expr:09-23-20 BLOOD SUGAR CONTROL. ADMINISTER AT SAME TIME EACH DAY DIRECTED. DISCARD ANY OPEN CARTRIDGE AFTER 28 DAYS. --takes as listed 14) LANCET,SOFTCLIX Qty: 500 for 90 da ys ACTIVE Issu:01-10-19 Sig: USE LANCET 5 TIMES A DAY FOR Refills: 0 Last:09-29-19 TESTING BLOOD GLUCOSE DIRECTED Expr:01-11-20 15) METOPROLOL SUCCINATE 200MG SA TAB Qty: ACTIVE Issu:03-18-19 45 for 90 days Sig: TAKE ONE-HALF Refills: 1 Last:09-28-19 TABLET BY MOUTH EVERY EVENING FOR Expr:03-18-20 HEART/BLOOD PRESSURE. SWALLOW WHOLE, DO NOT CRUSH OR CHEW (TABLETS MAY BE CUT IN HALF). 16) NEEDLE,PEN 31G,5MM Qty: 500 for 90 days ACTIVE Issu:12-20-18 Sig: USE NEEDLE SUBCUTANEOUSLY 5 TIMES Refills: 0 Last:09-28-19 A DAY - THIS IS A SINGLE USE NEEDLE Expr:12-21-19 AND SHOULD BE DISCARDED AFTER USE 17) POTASSIUM CHLORIDE 10MEQ SA TAB Qt y: ACTIVE Issu:03-16-19 180 for 60 days Sig: TAKE ONE TABLET Refills: 1 Last:09-28-19 BY MOUTH THREE TIMES A DAY WITH MEALS Expr:03-16-20 FOR POTASSIUM SUPPLEMENTATIONTAKE WITH FOOD 18) SYRINGE 3ML/NDL 25G 1IN Qty: 3 for 90 ACTIVE Issu:03-18-19 days Sig: USE 1 SYRINGE EVERY Refills: 1 Last:09-22-19 MONTH Expr:03-18-20 19) TESTOSTERONE CYP 200MG/ML 1ML IN OIL ACTIVE Issu:09-23-19 Qty: 1 for 30 days Sig: INJECT 200 MG Refills: 1 Last:10-25-19 (1 ML) INTRAMUSCULARLY EVERY MONTH FOR Expr:03-25-20 HORMONE REPLACEMENT 20) TESTOSTERONE CYP 200MG/ML 1ML IN OIL PENDING Qty: 1 Sig: INJECT 200 MG (1 ML) Refills: 0 INTRAMUSCULARLY EVERY MONTH FOR HORMONE REPLACEMENT 21) TRAMADOL HCL 50MG TAB Qty: 180 for 30 ACTIVE Issu:06-13-19 days Sig: TAKE 1 TO 2 TABLETS BY Refills: 0 Last:11-15-19 MOUTH EVERY 6 HOURS NEEDED FOR PAIN Expr:12-14-19 22) TRIAMCINOLONE 0.5% CR Qty: 45 for 90 ACTIVE Issu:07-15-19 days Sig: APPLY SPARINGLY TO AFFECTED Refills: 3 Last:10-14-19 AREA ONCE A DAY NEEDED FOR RASH Expr:07-15-20 Start Date Non-VA Medications Refills Expiration 1) Non-VA ASPIRIN 81MG CHEW TAB SiMG ACTIVE MOUTH ONCE A DAY 2) Non-VA CHOLECALCIFEROL (VIT D3) ACTIVE 1,000UNIT TAB SiUNIT MOUTH EVERY OTHER DAY 3) Non-VA DOCUSATE NA 100MG CAP SiMG ACTIVE MOUTH ONCE A DAY 4) Non-VA FISH OIL 1000MG (500MG DHA/E PA) ACTIVE CAP SiMG MOUTH ONCE A DAY 5) Non-VA LACTOBACILLUS ACIDOPHILUS CH EW ACTIVE TAB Si TABLET MOUTH ONCE A DAY 6) Non-VA MAGNESIUM OXIDE 400MG TAB S ig: ACTIVE 400MG MOUTH ONCE A DAY 28 Total Medications Compared newly ordered medications and medication changes to active medications and non-VA medications, and then reviewed medications with patient and/or caregiver. All discrepancies noted and reconciled. Patients, or caregivers, was provided with reconciled medications list and advised to provide to all non [facility] providers. Potential adverse reactions of new medications were discussed with the patient. O: Weight: 183.1 lb [83.2 kg] (11/16/2019 14:12) BMI: 31.0 Blood pressure: 132/58 (11/16/2019 14:12) Pulse: 52 (11/16/2019 14:12) Labs: Hgb A1c: Collection DT Spec A1C 11/10/2019 11:39 BLOOD 10.6 H 09/15/2019 11:44 BLOOD 9.9 H 03/24/2019 11:08 BLOOD 8.1 H Lipids: CHOL: 176 (09/23/18 08:55) 151 (03/24/19 11:08) HDL: 50 (09/23/18 08:55) 44 (03/24/19 11:08) LDL-TYLER: 102.8 (09/23/18 08:55) 85.2 (03/24/19 11:08) TGL: 116 (09/23/18 08:55) 109 (03/24/19 11:08) Metabolic Panel: Na: 140 mEq/L (11/10/2019 11:39) K: 3.9 mEq/L (11/10/2019 11:39) Cl: 101 mEq/L (11/10/2019 11:39) C02: 29 mEq/L (11/10/2019 11:39) Gluc: 226 mg/dL H (11/10/2019 11:39) -- ate 8-9am BUN: 24 mg/dL (11/10/2019 11:39) Creat: 1.60 mg/dL H (11/10/2019 11:39) EGFR: 42.6 (11/10/2019 11:39) Liver Function Test: ALB: 3.9 (07/07/19 09:11) ALKPHOS: 91 (07/07/19 09:11) ALT: 24 (07/07/19 09:11) AST: 29 (07/07/19 09:11) DBIL: 0.2 (07/07/19 09:11) TBIL: 0.4 (07/07/19 09:11) TP: 6.1 (07/07/19 09:11) Microalbumin: Microalbumin (CONC): 46.6 mg/dL (07/07/2019 09:11) Microalbumin/Creatinine Ratio: 158 mcg/mg cr H* (07/07/2019 09:11) TSH: 2.79 uIU/mL (09/23/2018 08:55) 25-OH Vit D: 42.9 ng/mL (07/07/2019 09:11) QUEST: ____ A/P: 1. Diabetes Goal A1c <7.5% met: No Goal FBG 90-140mg/dL met: NO Goal HS <160mg/dL met: No Statin: YES - LDL at goal <100mg/dL Metformin: NO -CKD (renal doctor will not allow) --No specific BG to review, and [place] thinks meter is not working correctly --A1c increased likely d/t holidays whic h causes less time for exercises, poor diet, and stress --BMP - SCR increased slightly, non-fast ed BG elevated Based on this information will, --continue insulin glargine 50 units --INCREASE insulin aspart 20 units TID AC meals [...] at goal when taken manually. 3. Refills: new accu-check machine, cont rol soln 4. Return to TO-PHARM PACT 5 PHONE on or around ( Dec 14, 2019 ) for a total of 1 appointment(s) Prerequisites: No Labs 2/5 3PM Learner: Patient Readiness to Learn: Accepting Barriers to Learning Noted: No Barriers Preferred Learning Style: Lecture, Printed Material Preferred language for discussing health care: Croatian Time spent with pt: 30 min P:Outpt [...] prescribing physician. Physician notified via additional signer. P:Test Results Notification: The following tests results along with appropriate management plan were discussed with patient at this clinic visit: Lab results It is documented that patient verbalized understanding of results and/or actions required? Yes PBM PharmD Pharmacotherapy Rem V11: PHARMACIST INTERVENTIONS: TYPE 2 DIABETES MELLITUS Medication Intervention(s) Adjust dose or frequency of current medication due to other reason Nonpharmacologic intervention chris /noa/ ELEUTERIO LIVINGSTON Clinical Program Manager Rn Signed: 11/17/2019 13:46 ELEUTERIO LIVINGSTON [facility]
--- OUTSIDE RECORDS SUMMARY | 2020-04-18 09:51 | XMS REPORT | Encounter Summary ---
Author Author [facility] SIMI palacio Organization Department of [facility] Address [address] [place] [id number] Phone Unavailable Care Team Providers Care Shipping Manager Name Role Phone THOM CHAMBERS PCP [...] FREEDOM MED REP (WNR) MEDICARE ADVANTAGE MCR ([facility]) Nov 09, 2017 [id number] [phone] SIMI COVARRUBIAS PATIENT ADVANTRA FREEDOM MED REP (WNR) MEDICARE ADVANTAGE MCR ([facility]) Nov 09, 2017 [id number] [phone] SIMI COVARRUBIAS PATIENT AETNA MCR (WN) MEDICARE ADVANTAGE MCR ([facility]) Nov 09, [id number] SIMI COVARRUBIAS PATIENT Selected Encounter This section includes the information on record at NE for the Encounter. Date/Time Encounter Type Encounter Description Reason Provider Source Nov 17, 2019 12:00 AM Outpatient Encounter EVENT (HISTORICAL) [facility] 15 IHE Encounter Template Text not used by NE Assessments - Encounter Diagnoses No Data Provided for This Section Plan of Treatment: Future Appointments (+ 6 months) and Future Tests (+/- 45 day s) The Plan of Treatment section includes future care activities for the patient fr om all NE treatment facilities. This section includes future appointments and fu ture orders which are active, pending or scheduled. Future Appointments This section includes appointments that were scheduled t o occur 6 months from the date of the Encounter, up to a maximum of 20 appointme nts. The data comes from all [place] treatment [facility]. Appointment Date/Time Appointment Type Appointment Facili ty Name Dec 01, 2019 11:30 AM AMBULATORY - MEDICINE [facility] Dec 14, 2019 03:00 PM AMBULATORY - NONE [facility] [place] [facility] Dec 15, 2019 01:00 PM AMBULATORY - NONE [facility] Jan 12, 2020 10:00 AM AMBULATORY - NONE [facility] Jan 26, 2020 03:00 PM AMBULATORY - NONE [facility] [place] [facility] Feb 29, 2020 02:30 PM AMBULATORY - NONE [facility] [place] [facility] March 20, 2020 08:00 AM AMBULATORY - MEDICINE [facility] March 28, 2020 11:30 AM AMBULATORY - NONE [facility] [place] [facility] Apr 19, 2020 11:00 AM AMBULATORY - NONE [facility] [place] [facility] Apr 26, 2020 10:45 AM AMBULATORY - NONE [facility], [facility] 15 Surgical Procedures: All associated to the encounter No Data Provided for This Section Lab Results: +/- 30 days of the encounter This section includes the Chemistry and Hematology Lab R esults on record with NE for the patient. Radiology Reports and Pathology Report s are provided separately, in subsequent sections. Lab Results This section contains the Chemistry/Hematology Results anushka t were resulted 30 days before or 30 days after the date of the Encounter. Date/Time Source Result Type Result - Unit Interpretation Reference Range Comment Dec 01, 2019 11:09 AM [facility] CBC & DIFF Specimen Type: BLOOD No [...] 0.5 % Dec 01, 2019 11:09 AM [facility] RENAL FUNCTION PANEL Specimen Type: PLASMA No comment entered. *CREATININE 1.48 mg/dL H 0.7-1.3 UREA NITROGEN mg/dL 19 mg/dL 9-25 GLUCOSE 99 mg/dL 72-99 SODIUM 143 mEq/L 136-145 POTASSIUM 3.4 mEq/L L 3.5-5.0 CALCIUM (mg/dL) 10.0 mg/dL 8.4-10.4 PHOSPHORUS INORGANIC 2.6 mg/dL 2.3-4.7 ALBUMIN 4.5 g/dl 3.4-5.0 CHLORIDE 101 mEq/L 98-107 CO2 34 mEq/L H 22-31 EGFR 46.5 Dec 01, 2019 11:09 AM [facility] URINALYSIS Specimen Type: URINE No comment entered. [...] RBC/HPF 0-2 Dec 01, 2019 11:09 AM [facility] MAGNESIUM (mg/dL) Specimen Type: PLASMA No comment entered. MAGNESIUM (mg/dL) 2.4 mg/dl 1.6-2.6 Dec 01, 2019 11:09 AM [facility] HEPATIC FUNCTION PANE L Specimen Type: PLASMA No comment entered. PROTEIN,TOTAL 7.2 g/dL 6.0-8.6 ALBUMIN 4.5 g/dl 3.4-5.0 TOTAL BILIRUBIN 0.7 mg/dL 0.2-1.2 DIRECT BILIRUBIN 0.30 mg/dL 0-0.5 ASPARTATE TRANSAMINASE 29 U/L 5-34 ALANINE AMINOTRANSFERASE 20 U/L 8-40 ALKALINE PHOSPHATASE 98 U/L 40-150 Dec 01, 2019 11:09 AM [facility] MICROALBUMIN (CO,EK) Specimen Type: URINE No comment entered. *MICROALBUMIN(CONC) 116.8 mg/dL - *MICROALBUMIN(SPOT) 651.8 mcg/mg cr HH 0-29 *CREATININE mg/dL 179.2 mg/dl Not Avail. Dec 01, 2019 11:09 AM [facility] COMPREHENSIVE METABOL IC PANEL Specimen Type: PLASMA [...] EGFR 46.5 Dec 01, 2019 11:09 AM [facility] TRAMADOL SCRN W/REFLE X,URINE Specimen Type: URINE Comment: normalcy status - Abnormal Tramadol Screen This test was performed using a forensic kit that is intended for the qualitative and semi- quantitative determination of Tramadol in human urine and has not been cleared or approved by the FDA for diagnostic purposes. The analytical performance characteristics of this test have been determined by [facility]. This test should not be used for diagnosis without confirmation by other, more specific, confirmatory analytical methodologies. Test performed by [employer] [address] [place] [phone] [employer]: Baron Domingo M.D.,Ph.D. Test Reported by [facility], [facility] [place], [address] [place], [place] Lawrence Mckeon M.D., Ph.D., Director of Laboratories , CLIA [id number] O-Desmethyltramadol This test was developed and its analytical performance characteristics have been determined by [facility]. It has not been cleared or approved by the US Food and Drug Administration. This assay has been validated pursuant to the CLIA regulations and is used for clinical purposes. *TRAMADOL SCREEN, URINE Positive Negati ve *TRAMADOL QUANT, URINE > 5000 ng/mL H < 10 0 *DESMETHYLTRAMADOL, URINE >5000 ng/mL H < 100 Dec 01, 2019 11:09 AM [facility] DRUGS OF ABUSE SCREEN Specimen Type: URINE No comment entered. AMPHETAMINE NEG Negative BARBITURATES NEG Negative BENZODIAZEPINES NEG Negative CANNABINOIDS NEG Negative COCAINE NEG Negative OPIATES NEG Negative PHENCYCLIDINE(PCP) NEG Negative *CREATININE,DRUG SCR 177.22 mg/dL METHADONE(UDS) NEG Negative OXYCODONE (URINE) NEG Negative ALCOHOL-URINE,RANDOM (SOSA,WI,EK) NEG mg/dL <10 Dec 01, 2019 11:09 AM [facility] URINALYSIS Specimen Type: URINE No comment entered. [...] RBC/HPF 0-2 Nov 10, 2019 11:39 AM [facility] [facility] HEMOGLOBIN A1C Specimen Type: BLOOD No comment entered. HEMOGLOBIN A1C 10.6 % H 4.0-6.0 Nov 10, 2019 11:39 AM [facility] [employer] BASIC METABOLIC PANEL Specimen Type: PLASMA No comment entered. *CREATININE 1.60 mg/dL H 0.7-1.3 UREA NITROGEN mg/dL 24 mg/dL 9-25 GLUCOSE 226 mg/dL H 72-99 SODIUM 140 mEq/L 136-145 POTASSIUM 3.9 mEq/L 3.5-5.0 CALCIUM (mg/dL) 9.3 mg/dL 8.4-10.4 CHLORIDE 101 mEq/L 98-107 CO2 29 mEq/L 22-31 EGFR 42.6 Nov 10, 2019 11:39 AM [facility] [employer] TESTOSTERONE ( ,WI,EK) Specimen Type: SERUM No comment entered. TESTOSTERONE (SOSA,WI,EK) 371 ng/dL 221-87 1 Nov 10, 2019 11:39 AM [facility] [employer] CBC & DIFF Specimen Type: BLOOD No [...] 0.3 % Nov 10, 2019 11:39 AM [facility] PROSTATIC SP ECIFIC ANTIGEN(TOTAL) Sp ecimen [...] patient. The data comes from a ll [place] treatment facilities. It does not list Allergies/ADRs that were removed or entered in error. Some allergies/ADRs may be reported in t he Immunization section. Allergen Event Date Event Type Reaction(s) Severity Source LISINOPRIL Dec 01, 2017 Propensity to adverse reactions to drug (disorder) Renal impairment [facility] 15 METFORMIN Dec 01, 2017 Propensity to adverse reactions to drug (disorder) Renal impairment [facility] 15 Medications: VA dispensed (-15 months) and Non-VA Documented (Obtained Outside A) Section Date Range: 1) prescriptions processed by a VA pharmacy in the last 15 m [facility], and 2) all medications recorded in the NE medical record as "non-VA medic ations". Pharmacy terms refer to NE pharmacy's work on prescriptions. VA patient s are advised to take their medications as instructed by their health care team. The data comes from all [place] treatment facilities. Glossary of Pharmacy Terms:Active = A prescription that can be filled at the local NE pharmacy.Active: On Hold = An active prescription that will not be filled until pharmacy resolves the issue.Active: Susp = An active prescription that is not scheduled to be filled yet.Clinic Order = A medication received during a visit to a NE clinic or emergency department (currently not available).Discontinued [...] may be a prescription from either the NE or other providers that was filled outside the NE. Or, it may be an over the [...] TIMES A DAY 400 Sep 12, 2020 [id number] Feb 29, 2020 YARAALCOVE Laron [facility] ACCU-CHEK ROSINA PLUS (GLUCOSE) TEST STRIP Discontinued USE 1 STRIP FOR TESTING FOUR TIMES A DAY 400 Sep 15, 2019 [id number] Jun 13, 2019 ELEUTERIO LARA [facility] ALCOHOL PREP PAD Discontinued USE 1 PAD ON SKIN FOUR TIMES A DAY 40 0 Apr 25, 2020 [id number] Nov 29, 2019 [facility] [place] [facility] ALCOHOL PREP PAD Discontinued USE 1 PAD ON SKIN FOUR TIMES A DAY 40 0 Sep 15, 2019 [id number] Apr 18, 2019 ELEUTERIO [facility] ALLOPURINOL 100MG TAB Active TAKE ONE TABLET BY MOUTH ONCE A DAY FOR GOUT. TAKE WITH PLENTY OF WATER 90 Sep 23, 2020 [id number] Mar 05, 2020 SILVINA CHAMBERS [facility] [place] [facility] ALLOPURINOL 100MG TAB Discontinued TAKE ONE TABLET BY MOUTH ONCE A DAY FOR GOUT. TAKE WITH PLENTY OF WATER 90 Dec 30, 2019 [id number] Sep 17, 2019 THOM SHARPE [facility] [place] [facility] ALOGLIPTIN 12.5MG TAB Active TAKE ONE TABLET BY MOUTH O NCE A DAY FOR DIABETES 90 Sep 12, 2020 [id number] Mar 04, 2020 ELEUTERIO [facility] [place] [facility] ALOGLIPTIN 12.5MG TAB Discontinued TAKE ONE TABLET BY MOUTH ONCE A DAY FOR DIABETES 90 Dec 22, 2019 [id number] Jun 18, 2019 ELEUTERIO LIV[place]ON [facility] [place] [facility] AMLODIPINE BESYLATE 10MG TAB Discontinued TAKE ONE TA BLET BY MOUTH EVERY MORNING FOR HEART/BLOOD PRESSURE 90 Jun 10, 2019 [id number] Feb 25, 2019 MONIKA HAMMER [facility] [place] [facility] AMLODIPINE BESYLATE 10MG TAB TAKE ONE TA BLET BY MOUTH EVERY MORNING FOR HEART/BLOOD PRESSURE 90 Apr 12, 2020 [id number] Feb 10, 2020 SILVINA CHAMBERS [facility] ASPIRIN 81MG TAB,CHEWABLE Non-VA CHEW ONE TABLET BY MOUTH ONCE A DAY Non-VA Documented by: MEGAN HAWK nted at: [facility] [place] [facility] ATORVASTATIN CA 20MG TAB Active TAKE ONE TABLET BY MOUTH ONCE A DAY FOR CHOLESTEROL. REPORT ANY UNEXPLAINED MUSCLE PAIN OR WEAKNESS TO YOUR DOCTOR. 90 Jan 02, 2021 [id number] March 24, 2020 NE[facility]A [facility], [place] 15 ATORVASTATIN CA 40MG TAB Discontinued TAKE ONE-HALF T ABLET BY MOUTH AT BEDTIME FOR CHOLESTEROL. REPORT ANY UNEXPLAINED MUSCLE PAIN OR WEAKNESS TO YOUR DOCTOR. 45 Jul 15, 2020 [id number] Oct 14, 2019 THOM CHAMBERS [facility] [place] [facility] ATORVASTATIN CA 40MG TAB Discontinued TAKE ONE-HALF T ABLET BY MOUTH AT BEDTIME FOR CHOLESTEROL. REPORT ANY UNEXPLAINED MUSCLE PAIN OR WEAKNESS TO YOUR DOCTOR. 45 Oct 12, 2019 [id number] Jul 16, 2019 THOM CHAMBERS [facility] [place] [facility] CALCIUM CARBONATE 500MG TAB,CHEWABLE Non-VA CHEW ONE TABLET BY MOUTH PRN Non-VA Documented by: THOM CHAMBERS Docume nted at: [facility] CHLORTHALIDONE 25MG TAB Active TAKE ONE TABLET BY MOUTH ONCE A DAY 90 Jul 01, 2020 [id number] March 19, 2020 MONIKA HAMMER [facility] [place] [facility] CHLORTHALIDONE 25MG TAB Discontinued TAKE ONE TABLET BY MOUTH ONCE A DAY 90 Jun 16, 2019 [id number] Apr 12, 2019 MONIKA HAMMER [facility] [place] [facility] CHOLECALCIFEROL 1000UNT TAB Non-VA TAKE ONE TABLET BY MOUTH EVERY OTHER DAY Non-VA Docume nted by: MEGAN HAWK Docume nted at: [facility] [place] [facility] CYANOCOBALAMIN 1000MCG/ML INJ Active INJECT 100 0 MCG (1 ML) INTRAMUSCULARLY EVERY MONTH FOR B12 SUPPLEMENTATION. 3 Nov 03, 2020 [id number] Apr 23, 2020 [facility] [place] [facility] CYANOCOBALAMIN 1000MCG/ML INJ Discontinued INJECT 100 0 MCG (1 ML) INTRAMUSCULARLY EVERY MONTH FOR B12 SUPPLEMENTATION. 3 Nov 17 0 [id number] Aug 07, 2019 THOM CHAMBERS [facility] [place] [facility] DIPHENHYDRAMINE HCL 25MG CAP Non-VA TAKE 1 CAPSULE BY MOUTH PRN Non-VA Documented by: THOM CHAMBERS Docsammi nted at: [facility] DOCUSATE NA 100MG CAP No n-VA TAKE 2 CAPSULES BY MOUTH ONCE A DAY Non-VA Documented by: THOM CHAMBERS Docume nted at: [facility] FISH OIL 1000MG (500MG DHA/EPA) CAP,ORAL Non-VA TAKE 1 CAPSULE BY MOUTH ONCE A DAY Non-VA Documented by: MEGAN HAWK Docsammi nted at: [facility] [place] [facility] GABAPENTIN 100MG CAP Active TAKE 1 CAPSULE BY M OUTH EVERY MORNING AND TAKE 1 CAPSULE BY MOUTH AT NOON AND TAKE 2 CAPSULES BY MOUTH AT BEDTIME 360 Jul 06, 2020 [id number] March 31, 2020 [facility]UTERIO [facility] GLUCAGON 1MG/GABRIELLA INJ,EMERGENCY KIT INJEC T 1MG SUBCUTANEOUSLY NEEDED FOR SEVERE HYPOGLYCEMIA 1 Nov 30, 2019 [id number] Nov 03, 2019 [facility] INSULIN,ASPART,HUMAN 100U/ML,NOVOLOG,FLEXPEN,3ML Active: On Hold INJECT 20 UNITS SUBCUTANEOUSLY BEFORE BREAKFAST AND INJECT 20 UNITS BEFORE LUNCH AND INJECT 26 UNITS BEFORE SUPPER AND INJECT 24 UNITS SNACK FOR BLOOD SUGAR CONTROL. ADMINISTER 10 MINUTES BEFORE FOOD DIRECTED. REFRIGERATE UN-OPENED PENS. DISCARD CARTRIDGE 28 DAYS AFTER OPENING. PLUS CORRECTION Mar 01, 2021 [id number] ELEUTERIO LIVINGSTON [facility] [place] [facility] INSULIN,ASPART,HUMAN 100U/ML,NOVOLOG,FLEXPEN,3ML Discontinue d INJECT 20 UNITS SUBCUTANEOUSLY BEFORE BREAKFAST AND INJECT 20 UNITS BEFORE LUNCH AND INJECT 24 UNITS BEFORE SUPPER AND INJECT 24 UNITS SNACK FOR BLOOD SUGAR CONTROL. ADMINISTER 10 MINUTES BEFORE FOOD DIRECTED. REFRIGERATE UN-OPENED PENS. DISCARD CARTRIDGE 28 DAYS AFTER OPENING. PLUS CORRECTION 30 Jan 26, 2021 [id number] Jan 28, 2020 ELEUTERIO LIVINGSTON [facility] [place] [facility] INSULIN,ASPART,HUMAN 100U/ML,NOVOLOG,FLEXPEN,3ML Discontinue d INJECT 20 UNITS SUBCUTANEOUSLY BEFORE MEALS FOR BLOOD SUGAR CONTROL. ADMINISTER 10 MINUTES BEFORE FOOD DIRECTED. REFRIGERATE UN-OPENED PENS. DISCARD CARTRIDGE 28 DAYS AFTER OPENING. PLUS CORRECTION FOR BLOOD SUGAR CONTROL. ADMINISTER 10 MINUTES BEFORE FOOD DIRECTED. REFRIGERATE UN-OPENED PENS. DISCARD CARTRIDGE 28 DAYS AFTER OPENING. PLUS CORRECTION 30 Nov 16, 2020 [id number] Nov 16 ELEUTERIO LIVINGSTON [facility] [place] [facility] INSULIN,ASPART,HUMAN 100U/ML,NOVOLOG,FLEXPEN,3ML Discontinue d INJECT 15 UNITS SUBCUTANEOUSLY EVERY MORNING BEFORE MEAL AND INJECT 15 UNITS WITH LUNCH AND INJECT 15 UNITS WITH SUPPER AND INJECT 20 UNITS WITH SNACK FOR BLOOD SUGAR CONTROL. ADMINISTER 10 MINUTES BEFORE FOOD DIRECTED. REFRIGERATE UN-OPENED PENS. DISCARD CARTRIDGE 28 DAYS AFTER OPENING. Dec 22, 2019 5 [id number] Oct 12, 2019 ELEUTERIO LIVINGSTON [facility] [place] [facility] INSULIN,GLARGINE,HUMAN 100 UNIT/ML INJ,SOLOSTAR,3ML Active INJECT 50 UNITS SUBCUTANEOUSLY EVERY MORNING FOR BLOOD SUGAR CONTROL. ADMINISTER AT SAME TIME EACH DAY DIRECTED. DISCARD ANY OPEN CARTRIDGE AFTER 28 DAYS. Sep 23, 2020 [id number] Jan 28, 2020 ELEUTERIO LIVINGSTON [facility] [place] [facility] INSULIN,GLARGINE,HUMAN 100 UNIT/ML INJ,SOLOSTAR,3ML Disconti nued INJECT 45 UNITS SUBCUTANEOUSLY EVERY MORNING FOR BLOOD SUGAR CONTROL. ADMINISTER AT SAME TIME EACH DAY DIRECTED. DISCARD ANY OPEN CARTRIDGE AFTER 28 DAYS. Oct 23, 2019 [id number] Aug 30, 2019 ELEUTERIO LIVINGSTON [facility] [place] LACTOBACILLUS ACIDOPHILUS TAB,CHEWABLE Non-VA CHEW ONE TABLET BY MOUTH ONCE A DAY Non-VA Documented by: MEGAN HAWK nted at: [facility] [place] [facility] LANCET,SOFTCLIX Active USE LANCET 5 TIME S A DAY FOR TESTING BLOOD GLUCOSE DIRECTED 500 Dec 28, 2020 [id number] March 19, 2020 [facility] [place] [facility] LANCET,SOFTCLIX Discontinued USE LANCET 5 TIME S A DAY FOR TESTING BLOOD GLUCOSE DIRECTED 500 Jan 11, 2020 [id number] Sep 29, 2019 YAYA GARZAISELEUTERIO [facility] [place] [facility] MAGNESIUM OXIDE 400MG TAB Non-VA TAKE ONE TABLET BY MOUTH ONCE A DAY Non-VA Documented by: MEGAN HAWK nted at: [facility] [place] [facility] METOPROLOL SUCCINATE 200MG TAB,SA TAKE O NE-HALF TABLET BY MOUTH EVERY EVENING FOR HEART/BLOOD PRESSURE. SWALLOW WHOLE, DO NOT CRUSH OR CHEW (TABLETS MAY BE CUT IN HALF). 45 March 18, 2020 [id number] Dec 28, 2019 STANISLAV HAMMER [facility] NEEDLE 22G 1.5IN USE NEEDLE FOR EVERY MONTH 1 Nov 12, 2019 [id number] Feb 07, 2019 ADELAIDA CLIFFORD [facility] [place] [facility] NEEDLE,PEN 31G,5MM Discontinued USE NEEDLE SUBCUTANE OUSLY 5 TIMES A DAY - THIS IS A SINGLE USE NEEDLE AND SHOULD BE DISCARDED AFTER USE 500 Dec 21, 2019 [id number] Sep 28, 2019 BALANGELIKAMARVINELEUTERIO QUIGLEY [facility] [place] [facility] POTASSIUM CHLORIDE 10MEQ TAB,SA Active TAKE TWO TABLETS BY MOUTH TWO TIMES A DAY FOR POTASSIUM SUPPLEMENTATIONTAKE WITH FOOD 360 Dec 12, 2020 [id number] Mar 02, 2020 [facility], [place] 15 POTASSIUM CHLORIDE 10MEQ TAB,SA Discontinued TAKE ONE TABLET BY MOUTH THREE TIMES A DAY WITH MEALS FOR POTASSIUM SUPPLEMENTATIONTAKE WITH FOOD 180 March 16, 2020 [id number] Nov 29, 2019 BALDILANELEUTERIO Laron [facility] [place] [facility] POTASSIUM CHLORIDE 10MEQ TAB,SA Discontinued TAKE ONE TABLET BY MOUTH THREE TIMES A DAY WITH MEALS FOR POTASSIUM SUPPLEMENTATIONTAKE WITH FOOD 180 May 26, 2019 [id number] Jan 24, 2019 [facility] [place] [facility] SYRINGE 2.5-3ML/NDL 25G 1IN Active USE 1 SYRINGE EVERY MONTH 3 Feb 21, 2021 [id number] March 20, 2020 [facility] SYRINGE 2.5-3ML/NDL 25G 1IN Discontinued USE 1 SYRINGE EVERY Thu 3 March 18, 2020 [id number] Dec 21, 2019 [facility] TESTOSTERONE CYPIONATE 200MG/ML INJ,1ML (IN OIL) Active INJECT 200 MG (1 ML) INTRAMUSCULARLY EVERY MONTH FOR HORMONE REPLACEMENT 1 May 18, 2020 [id number] April 06, 2020 ADELAIDA CLIFFORD [facility] [place] [facility] TESTOSTERONE CYPIONATE 200MG/ML INJ,1ML (IN OIL) Discontinue d INJECT 200 MG (1 ML) INTRAMUSCULARLY EVERY MONTH FOR HORMONE REPLACEMENT March 25, 2020 [id number] Oct 25, 2019 ADELAIDA CLIFFORD [facility] [place] [facility] TESTOSTERONE CYPIONATE 200MG/ML INJ,1ML (IN OIL) Discontinue d INJECT 200 MG (1 ML) INTRAMUSCULARLY EVERY MONTH FOR HORMONE REPLACEMENT Nov 06, 2019 [id number] Sep 25, 2019 ADELAIDA CLIFFORD [facility] [place] [facility] TESTOSTERONE CYPIONATE 200MG/ML INJ,1ML (IN OIL) Discontinue d INJECT 200 MG (1 ML) INTRAMUSCULARLY EVERY MONTH FOR HORMONE REPLACEMENT 1 May 14, 2019 [id number] Apr 10, 2019 ADELAIDA CLIFFORD [facility] [place] [facility] TRAMADOL HCL 50MG TAB Active TAKE 1 TO 2 TABLET S BY MOUTH EVERY 6 HOURS NEEDED FOR PAIN 180 Jul 21, 2020 [id number] March 30, [address] [facility] TRAMADOL HCL 50MG TAB Discontinued TAKE 1 TO 2 TABLET S BY MOUTH EVERY 6 HOURS NEEDED FOR PAIN 180 Jun 06, 2020 [id number] Jan 11, 2020 [facility] TRAMADOL HCL 50MG TAB Discontinued TAKE 1 TO 2 TABLET S BY MOUTH EVERY 6 HOURS NEEDED FOR PAIN 180 Jun 06, 2020 [id number] Dec 06, 2019 [facility] TRAMADOL HCL 50MG TAB Discontinued TAKE 1 TO 2 TABLET S BY MOUTH EVERY 6 HOURS NEEDED FOR PAIN 180 Dec 14, 2019 [id number] Nov 15, 2019 DANTE VALVERDE [facility] [place] [facility] TRAMADOL HCL 50MG TAB Discontinued TAKE 1 TO 2 TABLET S BY MOUTH EVERY 6 HOURS NEEDED FOR PAIN 180 Jul 06, 2019 [id number] May 26, 2019 [facility] [place] [facility] TRIAMCINOLONE ACETONIDE 0.5% CREAM,TOP Active A PPLY SPARINGLY TO AFFECTED AREA ONCE A DAY NEEDED FOR RASH 45 Jul 15, 2020 [id number] April 01 0 REYESTHOM [facility] [place] [facility] TRIAMCINOLONE ACETONIDE 0.5% CREAM,TOP Discontinued A PPLY SPARINGLY TO AFFECTED AREA ONCE A DAY NEEDED FOR RASH 45 Oct 12, 2019 [id number] Jul REYESTHOM [facility] [place] [facility] Problems (Conditions): All historical and current Section Date Range: From patient's date of to the date document was create d. This section includes a list of Problems (Conditions) know n to [facility] for the patient. It includes both active and inacti ve problems (conditions). The data comes from all [place] treatment facilities. Problem Status Problem Code Date of Onset Date of Resolution Comm ent(s) Provider Source Basal cell carcinoma of scalp Active [id number] THOM CHAMBERS [facility] [place] [facility] Chronic back pain Active [id number] TERRIE CHAMBERS [facility] [place] [facility] Chronic kidney disease stage 3 Active [id number] THOM CHAMBERS [facility] [place] [facility] Constipation Active [id number] THOM CHAMBERS [facility] [place] [facility] Diabetes mellitus Active [id number] THOM CHAMBERS [facility] [place] [facility] Diabetic neuropathy Active [id number] Neha CHAMBERS [facility] [place] [facility] Essential hypertension Active 32984060 THOM CHAMBERS [facility] [place] [facility] Hyperlipidemia Active 08690701 THOM CHAMBERS [facility] [place] [facility] Hypogonadism Active [id number] THOM CHAMBERS [facility] [place] [facility] Sleep apnea Active [id number] THOM CHAMBERS [facility] [place] [facility] Radiology Reports: +/- 30 days of the encounter No Data Provided for This Section Pathology Reports: +/- 30 days of the encounter No Data Provided for This Section Encounter Notes: All associated encounter notes No Data Provided for This Section
--- OUTSIDE RECORDS SUMMARY | 2020-04-18 09:51 | XMS REPORT ---
Author Author Department of [facility] SIMI palacio Organization Department of [facility] Address [address] [place] [phone] Phone Unavailable Care Team Providers Care Outside Collector Name Role Phone THOM CHAMBERS PCP Unavailable [...] [employer] MED REP (R) MEDICARE ADVANTAGE [facility] ([facility]) Nov 09, 2017 [id number] [phone] SIMI COVARRUBIAS PATIENT [employer] REP (WNR) MEDICARE [facility] ([facility]) Nov 09, 2017 [id number] [phone] SIMI COVARRUBIAS PATIENT [employer] MCR (WNR) MEDICARE ADVANTAGE MCR (R) Nov 09, 2019 [id number] SIMI COVARRUBIAS PATIENT Selected Encounter This section includes the information on record at [place] for the Encounter. Date/Time Encounter Type Encounter Description Reason Provider Source Nov 17, 2019 10:00 AM OFFICE/OUTPATIENT VISIT EST PRIMARY CARE/M EDICINE ICD-10-CM R86.1 Abn lev hormones in specimens from male genital organs with Provider Comments: Hypogonadism (SCT [id number]) THOM CHAMBERS [facility] IHE Encounter Template Text not used by CO Assessments - Encounter Diagnoses This section includes the primary and secondary diag noses documented for the Encounter. Date/Time Primary/Secondary Diagnosis Diagnosis Name Provider Source Nov 17, 2019 10:36 AM PRIMARY Abn lev hormones i n specimens from male genital organs KILLIAN DAVID [facility] Plan of Treatment: Future Appointments (+ 6 months) and Future Tests (+/- 45 day s) The Plan of Treatment section includes future care activities for the patient fr om all [place] treatment facilities. This section includes future appointments and fu ture orders which are active, pending or scheduled. Future Appointments This section includes appointments that were scheduled t o occur 6 months from the date of the Encounter, up to a maximum of 20 appointme nts. The data comes from all [place] treatment facilities. Appointment Date/Time Appointment Type Appointment Facili ty Name Dec 01, 2019 11:30 AM AMBULATORY - MEDICINE [facility] Dec 14, 2019 03:00 PM AMBULATORY - NONE [facility] [place] Dec 15, 2019 01:00 PM AMBULATORY - NONE [facility] Jan 12, 2020 10:00 AM AMBULATORY - N[facility] Jan 26, 2020 03:00 PM AMBULATORY - NONE [facility] [place] [facility] Feb 29, 2020 02:30 PM AMBULATORY - NONE [facility] [place] [facility] March 20, 2020 08:00 AM AMBULATORY - MEDICINE [facility] March 28, 2020 11:30 AM AMBULATORY - NONE [facility] [place] [facility] Apr 19, 2020 11:00 AM AMBULATORY - NONE [facility] [place] [facility] Apr 26, 2020 10:45 AM AMBULATORY - NONE [facility], [facility] 15 Surgical Procedures: All associated to the encounter No Data Provided for This Section Lab Results: +/- 30 days of the encounter This section includes the Chemistry and Hematology Lab R esults on record with CO for the patient. Radiology Reports and Pathology Report s are provided separately, in subsequent sections. Lab Results This section contains the Chemistry/Hematology Results anushka t were resulted 30 days before or 30 days after the date of the Encounter. Date/Time Source Result Type Result - Unit Interpretation Reference Range Comment Dec 01, 2019 11:09 AM [facility] CBC & DIFF Specimen Type: BLOOD No [...] 0.5 % Dec 01, 2019 11:09 AM [facility] RENAL FUNCTION PANEL Specimen Type: PLASMA No comment entered. *CREATININE 1.48 mg/dL H 0.7-1.3 UREA NITROGEN mg/dL 19 mg/dL 9-25 GLUCOSE 99 mg/dL 72-99 SODIUM 143 mEq/L 136-145 POTASSIUM 3.4 mEq/L L 3.5-5.0 CALCIUM (mg/dL) 10.0 mg/dL 8.4-10.4 PHOSPHORUS INORGANIC 2.6 mg/dL 2.3-4.7 ALBUMIN 4.5 g/dl 3.4-5.0 CHLORIDE 101 mEq/L 98-107 CO2 34 mEq/L H 22-31 EGFR 46.5 Dec 01, 2019 11:09 AM [facility] URINALYSIS Specimen Type: URINE No comment entered. [...] RBC/HPF 0-2 Dec 01, 2019 11:09 AM [facility] MAGNESIUM (mg/dL) Specimen Type: PLASMA No comment entered. MAGNESIUM (mg/dL) 2.4 mg/dl 1.6-2.6 Dec 01, 2019 11:09 AM [facility] HEPATIC FUNCTION PANE L Specimen Type: PLASMA No comment entered. PROTEIN,TOTAL 7.2 g/dL 6.0-8.6 ALBUMIN 4.5 g/dl 3.4-5.0 TOTAL BILIRUBIN 0.7 mg/dL 0.2-1.2 DIRECT BILIRUBIN 0.30 mg/dL 0-0.5 ASPARTATE TRANSAMINASE 29 U/L 5-34 ALANINE AMINOTRANSFERASE 20 U/L 8-40 ALKALINE PHOSPHATASE 98 U/L 40-150 Dec 01, 2019 11:09 AM [facility] MICROALBUMIN (CO,EK) Specimen Type: URINE No comment entered. *MICROALBUMIN(CONC) 116.8 mg/dL - *MICROALBUMIN(SPOT) 651.8 mcg/mg cr HH 0-29 *CREATININE mg/dL 179.2 mg/dl Not Avail. Dec 01, 2019 11:09 AM [facility] COMPREHENSIVE METABOL IC PANEL Specimen Type: PLASMA [...] EGFR 46.5 Dec 01, 2019 11:09 AM [facility] TRAMADOL SCRN W/REFLE X,URINE Specimen Type: URINE Comment: normalcy status - Abnormal Tramadol Screen This test was performed using a forensic kit that is intended for the qualitative and semi- quantitative determination of Tramadol in human urine and has not been cleared or approved by the FDA for diagnostic purposes. The analytical performance characteristics of this test have been determined by [facility]. This test should not be used for diagnosis without confirmation by other, more specific, confirmatory analytical methodologies. Test performed by [facility] [address] [id number] Rv Body Mechanic: Baron Domingo M.D.,Ph.D. Test Reported by [facility], [facility], [address] [place] [address] Lawrence Mckeon M.D., Ph.D., Director of Laboratories , CLIA [id number] O-Desmethyltramadol This test was developed and its analytical performance characteristics have been determined by [employer]. It has not been cleared or approved by the US Food and Drug Administration. This assay has been validated pursuant to the CLIA regulations and is used for clinical purposes. *TRAMADOL SCREEN, URINE Positive Negati ve *TRAMADOL QUANT, URINE > 5000 ng/mL H < 10 0 *DESMETHYLTRAMADOL, URINE >5000 ng/mL H < 100 Dec 01, 2019 11:09 AM [facility] DRUGS OF ABUSE SCREEN Specimen Type: URINE No comment entered. AMPHETAMINE NEG Negative BARBITURATES NEG Negative BENZODIAZEPINES NEG Negative CANNABINOIDS NEG Negative COCAINE NEG Negative OPIATES NEG Negative PHENCYCLIDINE(PCP) NEG Negative *CREATININE,DRUG SCR 177.22 mg/dL METHADONE(UDS) NEG Negative OXYCODONE (URINE) NEG Negative ALCOHOL-URINE,RANDOM (SOSA,WI,EK) NEG mg/dL <10 Dec 01, 2019 11:09 AM [facility] URINALYSIS Specimen Type: URINE No comment entered. [...] RBC/HPF 0-2 Nov 10, 2019 11:39 AM [facility] [employer] HEMOGLOBIN A1C Specimen Type: BLOOD No comment entered. HEMOGLOBIN A1C 10.6 % H 4.0-6.0 Nov 10, 2019 11:39 AM [facility] [employer] BASIC METABOLIC PANEL Specimen Type: PLASMA No comment entered. *CREATININE 1.60 mg/dL H 0.7-1.3 UREA NITROGEN mg/dL 24 mg/dL 9-25 GLUCOSE 226 mg/dL H 72-99 SODIUM 140 mEq/L 136-145 POTASSIUM 3.9 mEq/L 3.5-5.0 CALCIUM (mg/dL) 9.3 mg/dL 8.4-10.4 CHLORIDE 101 mEq/L 98-107 CO2 29 mEq/L 22-31 EGFR 42.6 Nov 10, 2019 11:39 AM [facility] [employer] TESTOSTERONE ( ,WI,EK) Specimen Type: SERUM No comment entered. TESTOSTERONE (,WI,EK) 371 ng/dL 221-87 1 Nov 10, 2019 11:39 AM [facility] Mobile P[employer] CBC & DIFF Specimen Type: BLOOD No [...] 0.3 % Nov 10, 2019 11:39 AM [facility] [place] PROSTATIC SP ECIFIC ANTIGEN(TOTAL) Sp ecimen Type: SERUM No comment entered. PROSTATIC SPECIFIC ANTIGEN(TOTAL) 1.08 ng/mL 0-4 Vital Signs: All taken on the encounter date This section contains inpatient and outpatient Vital Signs collected on the date of the Encounter. Date/Time Temperature Pulse Blood Pressure Respiratory Rate SP02 Pa in Height Weight Body Mass Index Source Nov 17, 2019 09:56 AM 98.1 F 50 /min 128/66 mm[Hg] 18 /min 93 % 8 179.7 lb 30 [facility] Immunizations: All administered on the encounter date This section contains immunizations associated to the Encounter. Immunization Series Date Issued Reaction Comments PNEUMOCOCCAL POLYSACCHARIDE PPV23 Nov 17, 2019 Social History: Smoking Status (Most current) and Tobacco Use (All prior to enco unter date) This section includes the most current, and the historical, smoking and tobacco- related health factors from the CO facility where the Encounter took place. Current Smoking Status This section includes the most current smoking, or tobacco -related health factor, from the CO facility where the Encounter took place. Date/Time Current Smoking Status Comment Facility Nov 03, 2018 07:59 AM VA-TOBACCO QUIT 15 YRS OR MORE [facility] Tobacco Use History This section includes a history of the smoking, or tobacco -related health factors, that were collected on or before the date of the Encoun ter. The data comes from the CO facility where the Encounter took place. Date/Time Smoking Status/Tobacco Use Comment Facil ity Nov 03, 2018 07:59 AM VA-TOBACCO QUIT 15 YRS OR MORE [facility] Oct 23, 2017 07:35 AM TOBACCO LIFETIME NON-USER [facility] Advance Directives: All historical and current No Data Provided for This Section Allergies and Adverse Reactions (ADRs): All historical and current Section Date Range: From patient's date of to the date document was create d. This section includes Allergies and Adverse Reactions (ADR s) on record with VA for the patient. The data comes from a ll CO treatment facilities. It does not list Allergies/ADRs that were removed or entered in error. Some allergies/ADRs may be reported in t he Immunization section. Allergen Event Date Event Type Reaction(s) Severity Source LISINOPRIL Dec 01, 2017 Propensity to adverse reactions to drug (disorder) Renal impairment [facility] [place] Dec 01, 2017 Propensity to adverse reactions to drug (disorder) Renal impairment [facility] 15 Medications: VA dispensed (-15 months) and Non-VA Documented (Obtained Outside V A) Section Date Range: 1) prescriptions processed by a VA pharmacy in the last 15 m [facility], and 2) all medications recorded in the CO medical record as "non-VA medic ations". Pharmacy terms refer to CO pharmacy's work on prescriptions. VA patient s are advised to take their medications as instructed by their health care team. The data comes from all [place] treatment facilities. Glossary of Pharmacy Terms:Active = A prescription that can be filled at the local [place] pharmacy.Active: On Hold = An active prescription that will not be filled until pharmacy resolves the issue.Active: Susp = An active prescription that is not scheduled to be filled yet.Clinic Order = A medication received during a visit to a CO clinic or emergency department (currently not available).Discontinued [...] TIMES A DAY 400 Sep 12, 2020 [id number] Feb 29, 2020 REGGIE L[facility]ON [facility] ACCU-CHEK ROSINA PLUS (GLUCOSE) TEST STRIP Discontinued USE 1 STRIP FOR TESTING FOUR TIMES A DAY 400 Sep 15, 2019 [id number] Jun 13, 2019 BALTRUSAI TIS,ELEUTERIO Larry [facility] ALCOHOL PREP PAD Discontinued USE 1 PAD ON SKIN FOUR TIMES A DAY 40 0 Apr 25, 2020 [id number] Nov 29, 2019 BALTRUSAELEUTERIO QUIGLEY [facility] [place] ALCOHOL PREP PAD Discontinued USE 1 PAD ON SKIN FOUR TIMES A DAY 40 0 Sep 15, 2019 [id number] Apr 18, 2019 BALTRUSAELEUTERIO QUIGLEY [facility] ALLOPURINOL 100MG TAB Active TAKE ONE TABLET BY MOUTH ONCE A DAY FOR GOUT. TAKE WITH PLENTY OF WATER 90 Sep 23, 2020 [id number] Mar 05, 2020 SILVINA CHAMBERS [facility] [place] ALLOPURINOL 100MG TAB Discontinued TAKE ONE TABLET BY MOUTH ONCE A DAY FOR GOUT. TAKE WITH PLENTY OF WATER 90 Dec 30, 2019 [id number] Sep 17, 2019 THOM SOLIS [facility] [place] ALOGLIPTIN 12.5MG TAB Active TAKE ONE TABLET BY MOUTH O NCE A DAY FOR DIABETES 90 Sep 12, 2020 [id number] Mar 04, 2020 ELEUTERIO LIVINGSTON [facility] [place] ALOGLIPTIN 12.5MG TAB Discontinued TAKE ONE TABLET BY MOUTH ONCE A DAY FOR DIABETES 90 Dec 22, 2019 [id number] Jun 18, 2019 BALTRUSAELEUTERIO QUIGLEY [facility] [place] [facility] AMLODIPINE BESYLATE 10MG TAB Discontinued TAKE ONE TA BLET BY MOUTH EVERY MORNING FOR HEART/BLOOD PRESSURE 90 Jun 10, 2019 [id number] Feb 25, 2019 MONIKA RIVERA [facility] [place] AMLODIPINE BESYLATE 10MG TAB TAKE ONE TA BLET BY MOUTH EVERY MORNING FOR HEART/BLOOD PRESSURE 90 Apr 12, 2020 [id number] Feb 10, 2020 SILVINA CHAMBERS [facility] ASPIRIN 81MG TAB,CHEWABLE Non-VA CHEW ONE TABLET BY MOUTH ONCE A DAY Non-VA Documented by: MEGAN HAWK nted at: [facility] [place] [facility] ATORVASTATIN CA 20MG TAB Active TAKE ONE TABLET BY MOUTH ONCE A DAY FOR CHOLESTEROL. REPORT ANY UNEXPLAINED MUSCLE PAIN OR WEAKNESS TO YOUR DOCTOR. 90 Jan 02, 2021 [id number] March 24, 2020 NELLA GROVE [facility], [place] 15 ATORVASTATIN CA 40MG TAB Discontinued TAKE ONE-HALF T ABLET BY MOUTH AT BEDTIME FOR CHOLESTEROL. REPORT ANY UNEXPLAINED MUSCLE PAIN OR WEAKNESS TO YOUR DOCTOR. 45 Jul 15, 2020 [id number] Oct 14, 2019 REYESTHOM [facility] [place] ATORVASTATIN CA 40MG TAB Discontinued TAKE ONE-HALF T ABLET BY MOUTH AT BEDTIME FOR CHOLESTEROL. REPORT ANY UNEXPLAINED MUSCLE PAIN OR WEAKNESS TO YOUR DOCTOR. 45 Oct 12, 2019 [id number] Jul 16, 2019 REYESTHOM [facility] [place] CALCIUM CARBONATE 500MG TAB,CHEWABLE Non-VA CHEW ONE TABLET BY MOUTH PRN Non-VA Documented by: THOM CHAMBERS nted at: [facility] CHLORTHALIDONE 25MG TAB Active TAKE ONE TABLET BY MOUTH ONCE A DAY 90 Jul 01, 2020 [id number] March 19, 2020 MONIKA HAMMER [facility] [place] CHLORTHALIDONE 25MG TAB Discontinued TAKE ONE TABLET BY MOUTH ONCE A DAY 90 Jun 16, 2019 [id number] Apr 12, 2019 MONIKA HAMMER [facility] [place] [facility] CHOLECALCIFEROL 1000UNT TAB Non-VA TAKE ONE TABLET BY MOUTH EVERY OTHER DAY Non-VA Docume nted by: MEGAN HAWK Docume nted at: [facility] [place] [facility] CYANOCOBALAMIN 1000MCG/ML INJ Active INJECT 100 0 MCG (1 ML) INTRAMUSCULARLY EVERY MONTH FOR B12 SUPPLEMENTATION. 3 Nov 03, 2020 [id number] Apr 23, 2020 REYESTHOM [facility] [place] [facility] CYANOCOBALAMIN 1000MCG/ML INJ Discontinued INJECT 100 0 MCG (1 ML) INTRAMUSCULARLY EVERY MONTH FOR B12 SUPPLEMENTATION. 3 Nov 17 0 [id number] Aug 07, 2019 THOM CHAMBERS [facility] [place] DIPHENHYDRAMINE HCL 25MG CAP Non-VA TAKE 1 CAPSULE BY MOUTH PRN Non-VA Documented by: THOM CHAMBERS nted at: [facility] DOCUSATE NA 100MG CAP No n-VA TAKE 2 CAPSULES BY MOUTH ONCE A DAY Non-VA Documented by: THOM CHAMBERS nted at: [facility] FISH OIL 1000MG (500MG DHA/EPA) CAP,ORAL Non-VA TAKE 1 CAPSULE BY MOUTH ONCE A DAY Non-VA Documented by: MEGAN HAWK nted at: [facility] [place] [facility] GABAPENTIN 100MG CAP Active TAKE 1 CAPSULE BY M OUTH EVERY MORNING AND TAKE 1 CAPSULE BY MOUTH AT NOON AND TAKE 2 CAPSULES BY MOUTH AT BEDTIME 360 Jul 06, 2020 [id number] March 31, 2020 ELEUTERIO LIVINGSTON [facility] [place] GLUCAGON 1MG/GABRIELLA INJ,EMERGENCY KIT INJEC T 1MG SUBCUTANEOUSLY NEEDED FOR SEVERE HYPOGLYCEMIA 1 Nov 30, 2019 [id number] Nov 03, 2019 THOM CHAMBERS [facility] [place] [facility] INSULIN,ASPART,HUMAN 100U/ML,NOVOLOG,FLEXPEN,3ML Active: On Hold INJECT 20 UNITS SUBCUTANEOUSLY BEFORE BREAKFAST AND INJECT 20 UNITS BEFORE LUNCH AND INJECT 26 UNITS BEFORE SUPPER AND INJECT 24 UNITS SNACK FOR BLOOD SUGAR CONTROL. ADMINISTER 10 MINUTES BEFORE FOOD DIRECTED. REFRIGERATE UN-OPENED PENS. DISCARD CARTRIDGE 28 DAYS AFTER OPENING. PLUS CORRECTION Mar 01, 2021 [id number] ELEUTERIO LIVINGSTON [facility] [place] [facility] INSULIN,ASPART,HUMAN 100U/ML,NOVOLOG,FLEXPEN,3ML Discontinue d INJECT 20 UNITS SUBCUTANEOUSLY BEFORE BREAKFAST AND INJECT 20 UNITS BEFORE LUNCH AND INJECT 24 UNITS BEFORE SUPPER AND INJECT 24 UNITS SNACK FOR BLOOD SUGAR CONTROL. ADMINISTER 10 MINUTES BEFORE FOOD DIRECTED. REFRIGERATE UN-OPENED PENS. DISCARD CARTRIDGE 28 DAYS AFTER OPENING. PLUS CORRECTION 30 Jan 26, 2021 [id number] Jan 28, 2020 ELEUTERIO LIVINGSTON [facility] [place] [facility] INSULIN,ASPART,HUMAN 100U/ML,NOVOLOG,FLEXPEN,3ML Discontinue d INJECT 20 UNITS SUBCUTANEOUSLY BEFORE MEALS FOR BLOOD SUGAR CONTROL. ADMINISTER 10 MINUTES BEFORE FOOD DIRECTED. REFRIGERATE UN-OPENED PENS. DISCARD CARTRIDGE 28 DAYS AFTER OPENING. PLUS CORRECTION FOR BLOOD SUGAR CONTROL. ADMINISTER 10 MINUTES BEFORE FOOD DIRECTED. REFRIGERATE UN-OPENED PENS. DISCARD CARTRIDGE 28 DAYS AFTER OPENING. PLUS CORRECTION 30 Nov 16, 2020 [id number] Nov 16 ELEUTERIO LIVINGSTON [facility] [place] INSULIN,ASPART,HUMAN 100U/ML,NOVOLOG,FLEXPEN,3ML Discontinue d INJECT 15 UNITS SUBCUTANEOUSLY EVERY MORNING BEFORE MEAL AND INJECT 15 UNITS WITH LUNCH AND INJECT 15 UNITS WITH SUPPER AND INJECT 20 UNITS WITH SNACK FOR BLOOD SUGAR CONTROL. ADMINISTER 10 MINUTES BEFORE FOOD DIRECTED. REFRIGERATE UN-OPENED PENS. DISCARD CARTRIDGE 28 DAYS AFTER OPENING. Dec 22, 2019 5 [id number] Oct 12, 2019 ELEUTERIO LIVINGSTON [facility] [place] [facility] INSULIN,GLARGINE,HUMAN 100 UNIT/ML INJ,SOLOSTAR,3ML Active INJECT 50 UNITS SUBCUTANEOUSLY EVERY MORNING FOR BLOOD SUGAR CONTROL. ADMINISTER AT SAME TIME EACH DAY DIRECTED. DISCARD ANY OPEN CARTRIDGE AFTER 28 DAYS. Sep 23, 2020 [id number] Jan 28, 2020 ELEUTERIO LIVINGSTON [facility] [place] [facility] INSULIN,GLARGINE,HUMAN 100 UNIT/ML INJ,SOLOSTAR,3ML Disconti nued INJECT 45 UNITS SUBCUTANEOUSLY EVERY MORNING FOR BLOOD SUGAR CONTROL. ADMINISTER AT SAME TIME EACH DAY DIRECTED. DISCARD ANY OPEN CARTRIDGE AFTER 28 DAYS. Oct 23, 2019 [id number] Aug 30, 2019 ELEUTERIO LIVINGSTON [facility] [place] [facility] LACTOBACILLUS ACIDOPHILUS TAB,CHEWABLE Non-VA CHEW ONE TABLET BY MOUTH ONCE A DAY Non-VA Documented by: MEGAN HAWK [facility] LANCET,SOFTCLIX Active USE LANCET 5 TIME S A DAY FOR TESTING BLOOD GLUCOSE DIRECTED 500 Dec 28, 2020 [id number] March 19, 2020 [facility] LANCET,SOFTCLIX Discontinued USE LANCET 5 TIME S A DAY FOR TESTING BLOOD GLUCOSE DIRECTED 500 Jan 11, 2020 [id number] Sep 29, 2019 ELEUTERIO PATEL [facility] [place] [facility] MAGNESIUM OXIDE 400MG TAB Non-VA TAKE ONE TABLET BY MOUTH ONCE A DAY Non-VA Documented by: MEGAN HAWK nted at: [facility] METOPROLOL SUCCINATE 200MG TAB,SA TAKE O NE-HALF TABLET BY MOUTH EVERY EVENING FOR HEART/BLOOD PRESSURE. SWALLOW WHOLE, DO NOT CRUSH OR CHEW (TABLETS MAY BE CUT IN HALF). 45 March 18, 2020 [id number] Dec 28, 2019 STANISLAV HAMMER [facility] NEEDLE 22G 1.5IN USE NEEDLE FOR EVERY MONTH Nov 12, 2019 [id number] Feb 07, 2019 ADELAIDA CLIFFORD [facility] [place] NEEDLE,PEN 31G,5MM Discontinued USE NEEDLE SUBCUTANE OUSLY 5 TIMES A DAY - THIS IS A SINGLE USE NEEDLE AND SHOULD BE DISCARDED AFTER USE 500 Dec 21, 2019 [id number] Sep 28, 2019 BALTRUSAITIS,ELEUTERIO Larry [facility] [place] [facility] POTASSIUM CHLORIDE 10MEQ TAB,SA Active TAKE TWO TABLETS BY MOUTH TWO TIMES A DAY FOR POTASSIUM SUPPLEMENTATIONTAKE WITH FOOD 360 Dec 12, 2020 [id number] Mar 02, 2020 [facility] [place] [facility] POTASSIUM CHLORIDE 10MEQ TAB,SA Discontinued TAKE ONE TABLET BY MOUTH THREE TIMES A DAY WITH MEALS FOR POTASSIUM SUPPLEMENTATIONTAKE WITH FOOD 180 March 16, 2020 [id number] Nov 29, 2019 BALTRUSAITIS,ELEUTERIO Larry [facility] [place] POTASSIUM CHLORIDE 10MEQ TAB,SA Discontinued TAKE ONE TABLET BY MOUTH THREE TIMES A DAY WITH MEALS FOR POTASSIUM SUPPLEMENTATIONTAKE WITH FOOD 180 May 26, 2019 [id number] Jan 24, 2019 INGRIDYANELY [facility] [place] SYRINGE 2.5-3ML/NDL 25G 1IN Active USE 1 SYRINGE EVERY MONTH 3 Feb 21, 2021 [id number] March 20, 2020 [facility] SYRINGE 2.5-3ML/NDL 25G 1IN Discontinued USE 1 SYRINGE EVERY Thu 3 March 18, 2020 [id number] Dec 21, 2019 [facility] TESTOSTERONE CYPIONATE 200MG/ML INJ,1ML (IN OIL) Active INJECT 200 MG (1 ML) INTRAMUSCULARLY EVERY MONTH FOR HORMONE REPLACEMENT 1 May 18, 2020 [id number] April 06, 2020 ADELAIDA CLIFFORD [facility] [place] TESTOSTERONE CYPIONATE 200MG/ML INJ,1ML (IN OIL) Discontinue d INJECT 200 MG (1 ML) INTRAMUSCULARLY EVERY MONTH FOR HORMONE REPLACEMENT March 25, 2020 [id number] Oct 25, 2019 ADELAIDA CLIFFORD [facility] [place] TESTOSTERONE CYPIONATE 200MG/ML INJ,1ML (IN OIL) Discontinue d INJECT 200 MG (1 ML) INTRAMUSCULARLY EVERY MONTH FOR HORMONE REPLACEMENT Nov 06, 2019 [id number] Sep 25, 2019 ADELAIDA CLIFFORD [facility] [place] TESTOSTERONE CYPIONATE 200MG/ML INJ,1ML (IN OIL) Discontinue d INJECT 200 MG (1 ML) INTRAMUSCULARLY EVERY MONTH FOR HORMONE REPLACEMENT 1 May 14, 2019 [id number] Apr 10, 2019 ADELAIDA CLIFFORD [facility] [place] TRAMADOL HCL 50MG TAB Active TAKE 1 TO 2 TABLET S BY MOUTH EVERY 6 HOURS NEEDED FOR PAIN 180 Jul 21, 2020 [id number] March 30, 2020 NELLA GROVE [facility] [place] 15 TRAMADOL HCL 50MG TAB Discontinued TAKE 1 TO 2 TABLET S BY MOUTH EVERY 6 HOURS NEEDED FOR PAIN 180 Jun 06, 2020 [id number] Jan 11, 2020 ROSSY GROVE [facility] [place] [facility] TRAMADOL HCL 50MG TAB Discontinued TAKE 1 TO 2 TABLET S BY MOUTH EVERY 6 HOURS NEEDED FOR PAIN 180 Jun 06, 2020 [id number] Dec 06, 2019 ROSSY GROVE [facility] [place] [facility] TRAMADOL HCL 50MG TAB Discontinued TAKE 1 TO 2 TABLET S BY MOUTH EVERY 6 HOURS NEEDED FOR PAIN 180 Dec 14, 2019 [id number] Nov 15, 2019 DANTE VALVERDE [facility] [place] TRAMADOL HCL 50MG TAB Discontinued TAKE 1 TO 2 TABLET S BY MOUTH EVERY 6 HOURS NEEDED FOR PAIN 180 Jul 06, 2019 [id number] May 26, [address] [facility] [place] TRIAMCINOLONE ACETONIDE 0.5% CREAM,TOP Active A PPLY SPARINGLY TO AFFECTED AREA ONCE A DAY NEEDED FOR RASH 45 Jul 15, 2020 [id number] April 01 0 THOM CHAMBERS [facility] [place] TRIAMCINOLONE ACETONIDE 0.5% CREAM,TOP Discontinued A PPLY SPARINGLY TO AFFECTED AREA ONCE A DAY NEEDED FOR RASH 45 Oct 12, 2019 [id number] Jul THOM CHAMBERS [facility] [place] [facility] Problems (Conditions): All historical and current Section Date Range: From patient's date of to the date document was create d. This section includes a list of Problems (Conditions) know n to [place] for the patient. It includes both active and inacti ve problems (conditions). The data comes from all [place] treatment facilities. Problem Status Problem Code Date of Onset Date of Resolution Comm ent(s) Provider Source Basal cell carcinoma of scalp Active [id number] THOM CHAMBERS [facility] [place] [facility] Chronic back pain Active [id number] TERRIE CHAMBERS [facility] [place] [facility] Chronic kidney disease stage 3 Active [id number] THOM CHAMBERS [facility] [place] [facility] Constipation Active [id number] [facility] Diabetes mellitus Active [id number] [facility] Diabetic neuropathy Active [id number] Neha [facility] Essential hypertension Active 82214222 [facility] Hyperlipidemia Active [id number] [facility] EA [facility] Hypogonadism Active [id number] [facility] Sleep apnea Active 63403910 [facility] OJRDYN [facility] Radiology Reports: +/- 30 days of the encounter No Data Provided for This Section Pathology Reports: +/- 30 days of the encounter No Data Provided for This Section Encounter Notes: All associated encounter notes This section contains the clinical notes associated to the Encounter. Date/Time Encounter Note(s) Provider Source Nov 17, 2019 09:56 AM NURSING OUTPATIENT NOTE: LOCAL TITLE: -NURSING CLINIC CHECK-IN STANDARD TITLE: NURSING OUTPATIENT NOTE DATE OF NOTE: NOV 17, 2019@09:56 ENTRY DATE: NOV 17, 2019@10:23:38 AUTHOR: BARBARA DUNCAN EXP COSIGNER: URGENCY: STATUS: COMPLETED PRIMARY REASON FOR VISIT TODAY: [place] for testosterone injection PATIENT'S GOAL/MISSION FOR THEIR HEALTH: "I want to stay as healthy as I can." ALLERGIES/ADR: METFORMIN, LISINOPRIL VITALS: DATE/TIME TEMP PULSE RESP BP PAIN WEIGHT PUL OX 11/17/19 @ 0956 98.1 50 18 128/66 8 179.7 93 11/16/19 @ 1412 96.5 52 16 132/58 0 183.1 91 11/16/19 @ 1344 97.3 58 18 162/80 0 94 REPRODUCTIVE HISTORY: Concerns regardng sexual/reproductive health: None LEARNING ASSESSMENT: Patient's preferred language for discussing health care is: Setsw[place] Today's learning assessment regarding patient's readiness to learn. Patient reads well. Barriers to Learning: Has no barriers to learning. Preferred Method of Learning: Reading Listening Seeing / Videos Demonstration Return Demonstration Hands On/Doing Education provided as per documentation below: SCREENING FOR PAIN STATUS: Patient reported pain level as 8 (11/17/2019 09:56) on 0 to 10 scale. Pain Scale used: Numerical Pain Scale Patient states current level of pain is: Acceptable Location of pain that most interferes with your life: Right neck and feet Characteristics of pain: PAIN QUALITY: Aching, Pins & needles Verbal Education Provided: To [...] medication refill requests and other non-urgent communication. N:Pneumococcal PPSV23 (Pneumovax): The patient received pneumococcal polysaccharide vaccine PPSV23 (Pneumovax) 0.5ml IM today in Left Deltoid. Back Hand: [employer] Lot # [id number] Expiration Date: [id number] Administered by protocol/policy Complications: None The pneumococcal polysaccharide vaccine PPSV23 (Pneumovax) VIS was given to the patient today. VIS version date Aug. OTHER OBSERVATION/INTERVENTION: Pt in clinic today for: Testosterone injection Pt purchased injection medication from [facility]. Patient identity verified using 2 forms of ID: Name and Medication given: Testosterone 200 mg (1 ml) Order Verified:11/16/2019 Route: IM Location: RIGHT GM Mfg: [employer] Lot#: [id number] Exp: 02/2021 Dx: hypogonadism Initiated: Received locally until 01/07/19, then from the [place] Pt rock injection w/o difficulty. [place] complained about pain in right side of neck that runs to back of his head. Does not recall injuring this area. Muscle is tender to touch in that area. Encouraged to apply heat and several times daily protecting skin from overheating and then gentle stretching until point of discomfort. Continue to repeat this process until pain has been alleviated. [place] v/u. PLAN: RTC O placed for monthly testosterone injection on 12/25/2019. DISPOSITION: To home at 1023 /es/ BARBARA DUNCAN RN, BSN Signed: 11/17/2019 10:36 Receipt Acknowledged By: 11/17/2019 12:12 /noa/ BARBARA CARTY [facility]
--- OUTSIDE RECORDS SUMMARY | 2020-04-18 09:52 | XMS REPORT | Encounter Summary ---
Author Author [facility] Organization Department of 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 Role Phone REYES THOM PCP Unavailable [...] Policy Woodard [facility] ([facility]) MEDICARE ADVANTAGE MCR ([facility]) Nov 09, 2017 [id number] [phone] SIMI COVARRUBIAS PATIENT [employer] [facility] MED REP (WNR) MEDICARE ADVANTAGE MCR ([facility]) Nov 09, 2017 [id number] [phone] SIMI COVARRUBIAS PATIENT AETNA MCR ([facility]) MEDICARE ADVANTAGE MCR ([facility]) Nov 09, 2019 [id number] SIMI COVARRUBIAS PATIENT Selected Encounter This section includes the information on record at [place] for the Encounter. Date/Time Encounter Type Encounter Description Reason Provider Source Nov 03, 2019 12:11 PM Outpatient Encounter TELEPHONE/ANCILLARY [facility] [place] [facility] I[facility] Encounter Template Text not [...] appointme nts. The data comes from all [place] treatment facilities. Appointment Date/Time Appointment Type Appointment Facili ty Name Nov 10, 2019 12:00 PM AMBULATORY - MEDICINE CL [facility]IC Nov 16, 2019 02:00 PM AMBULATORY - SURGERY [facility] [place] Nov 16, 2019 03:00 PM AMBULATORY - NONE [facility] [place] Nov 17, 2019 10:00 AM AMBULATORY - NONE CLIN [facility] Dec 01, 2019 11:30 AM AMBULATORY - MEDICINE [facility] [place] Dec 14, 2019 03:00 PM AMBULATORY - NONE [facility] [place] Dec 15, 2019 01:00 PM AMBULATORY - NONE CLIN [facility] Jan 12, 2020 10:00 AM AMBULATORY - NONE CLIN [facility] Jan 26, 2020 03:00 PM AMBULATORY - NONE [facility] [place] Feb 29, 2020 02:30 PM AMBULATORY - NONE [facility] [place] March 20, 2020 08:00 AM AMBULATORY - MEDICINE [facility] [place] March 28, 2020 11:30 AM AMBULATORY - NONE [facility] [place] Apr 19, 2020 11:00 AM AMBULATORY - NONE [facility] [place] Apr 26, 2020 10:45 AM AMBULATORY - NONE [facility] [place] 15 Surgical Procedures: All associated to the encounter No Data Provided for This Section Lab Results: +/- 30 days of the encounter This section includes the Chemistry and Hematology Lab R esults on record with [place] for the patient. Radiology Reports and Pathology Report s are provided separately, in subsequent sections. Lab Results This section contains the Chemistry/Hematology Results anushka t were resulted 30 days before or 30 days after the date of the Encounter. Date/Time Source Result Type Result - Unit Interpretation Reference Range Comment Dec 01, 2019 11:09 AM [facility] CBC & DIFF Specimen Type: [...] 0.5 % Dec 01, 2019 11:09 AM [facility] RENAL FUNCTION PANEL Specimen Type: [...] EGFR 46.5 Dec 01, 2019 11:09 AM [facility] URINALYSIS Specimen Type: URINE No [...] RBC/HPF 0-2 Dec 01, 2019 11:09 AM [facility] MAGNESIUM (mg/dL) Specimen Type: PLASMA No comment entered. MAGNESIUM (mg/dL) 2.4 mg/dl 1.6-2.6 Dec 01, 2019 11:09 AM [facility] HEPATIC FUNCTION PANE L Specimen Type: PLASMA No comment entered. PROTEIN,TOTAL 7.2 g/dL 6.0-8.6 ALBUMIN 4.5 g/dl 3.4-5.0 TOTAL BILIRUBIN 0.7 mg/dL 0.2-1.2 DIRECT BILIRUBIN 0.30 mg/dL 0-0.5 ASPARTATE TRANSAMINASE 29 U/L 5-34 ALANINE AMINOTRANSFERASE 20 U/L 8-40 ALKALINE PHOSPHATASE 98 U/L 40-150 Dec 01, 2019 11:09 AM [facility] MICROALBUMIN (CO,EK) Specimen Type: URINE No comment entered. *MICROALBUMIN(CONC) 116.8 mg/dL - *MICROALBUMIN(SPOT) 651.8 mcg/mg cr HH 0-29 *CREATININE mg/dL 179.2 mg/dl Not Avail. Dec 01, 2019 11:09 AM [facility] COMPREHENSIVE METABOL IC PANEL Specimen [...] EGFR 46.5 Dec 01, 2019 11:09 AM [facility] TRAMADOL SCRN W/REFLE X,URINE Specimen Type: URINE Comment: normalcy status - Abnormal Tramadol Screen This test was performed using a forensic kit that is intended for the qualitative and semi- quantitative determination of Tramadol in human urine and has not been cleared or approved by the FDA for diagnostic purposes. The analytical performance characteristics of this test have been determined by [facility]. This test should not be used for diagnosis without confirmation by other, more specific, confirmatory analytical methodologies. Test performed by [facility] [address] [id number] Coding Coordinator: Baron Domingo M.D.,Ph.D. Test Reported by [facility], [facility], [address] [place] [address] Lawrence Mckeon M.D., Ph.D., Director of Laboratories , CLIA [id number] O-Desmethyltramadol This test was developed and its analytical performance characteristics have been determined by [facility]. It has not been cleared or approved by the US Food and Drug Administration. This assay has been validated pursuant to the CLIA regulations and is used for clinical purposes. *TRAMADOL SCREEN, URINE Positive Negati ve *TRAMADOL QUANT, URINE > 5000 ng/mL H < 10 0 *DESMETHYLTRAMADOL, URINE >5000 ng/mL H < 100 Dec 01, 2019 11:09 AM [facility] DRUGS OF ABUSE SCREEN Specimen Type: URINE No comment entered. AMPHETAMINE NEG Negative BARBITURATES NEG Negative BENZODIAZEPINES NEG Negative CANNABINOIDS NEG Negative COCAINE NEG Negative OPIATES NEG Negative PHENCYCLIDINE(PCP) NEG Negative *CREATININE,DRUG SCR 177.22 mg/dL METHADONE(UDS) NEG Negative OXYCODONE (URINE) NEG Negative ALCOHOL-URINE,RANDOM (SOSA,WI,EK) NEG mg/dL <10 Dec 01, 2019 11:09 AM [facility] URINALYSIS Specimen Type: URINE No [...] RBC/HPF 0-2 Nov 10, 2019 11:[address] [facility] [place] HEMOGLOBIN A1C Specimen Type: BLOOD No comment entered. HEMOGLOBIN A1C 10.6 % H 4.0-6.0 Nov 10, 2019 11:[address] [facility] [place] BASIC METABOLIC PANEL Specimen Type: PLASMA No comment entered. *CREATININE 1.60 mg/dL H 0.7-1.3 UREA NITROGEN mg/dL 24 mg/dL 9-25 GLUCOSE 226 mg/dL H 72-99 SODIUM 140 mEq/L 136-145 POTASSIUM 3.9 mEq/L 3.5-5.0 CALCIUM (mg/dL) 9.3 mg/dL 8.4-10.4 CHLORIDE 101 mEq/L 98-107 CO2 29 mEq/L 22-31 EGFR 42.6 Nov 10, 2019 11:[address] [facility] [place] TESTOSTERONE (SOSA ,WI,EK) Specimen Type: SERUM No comment entered. TESTOSTERONE (SOSA,WI,EK) 371 ng/dL 221-87 1 Nov 10, 2019 11:[address] [facility] [place] CBC & DIFF Specimen Type: BLOOD No [...] 0.3 % Nov 10, 2019 11:39 AM [facility] [place] PROSTATIC SP ECIFIC ANTIGEN(TOTAL) [...] patient. The data comes from a ll [place] treatment facilities. It does not list Allergies/ADRs that were removed or entered in error. Some allergies/ADRs may be reported in t Immunization section. Allergen Event Date Event Type Reaction(s) Severity Source LISINOPRIL Dec 01, 2017 Propensity to adverse reactions to drug (disorder) Renal impairment [facility] 15 METFORMIN Dec 01, 2017 Propensity to adverse reactions to drug (disorder) Renal impairment [facility] 15 Medications: VA dispensed (-15 months) and Non-VA Documented (Obtained Outside [facility]) Section Date Range: 1) prescriptions processed by a VA pharmacy in the last 15 m [facility], and 2) all medications recorded in the [place] medical record as "non-VA medic ations". Pharmacy terms refer to VA pharmacy's work on prescriptions. VA patient s are advised to take their medications as instructed by their health care team. The data comes from all [place] treatment facilities. Glossary of Pharmacy Terms:Active = A prescription that can be filled at the local [place] pharmacy.Active: On Hold = An active prescription [...] that came from someplace other than a [place] pharmacy. This may be a prescription from either the [place] or other providers that was filled outside the [place]. Or, it may be an over the [...] TIMES A DAY 400 Sep 12, 2020 [id number] Feb 29, 2020 [facility] ROSINA PLUS (GLUCOSE) TEST STRIP Discontinued USE 1 STRIP FOR TESTING FOUR TIMES A DAY 400 Sep 15, 2019 [id number] Jun 13, 2019 [facility] Discontinued USE 1 PAD ON SKIN FOUR TIMES A DAY 40 0 Apr 25, 2020 [id number] Nov 29, 2019 YARAELEUTERIO Laron [facility] [place] ALCOHOL PREP PAD Discontinued USE 1 PAD ON SKIN FOUR TIMES A DAY 40 0 Sep 15, 2019 [id number] Apr 18, [facility] ALL[facility] 100MG TAB Active TAKE ONE TABLET BY MOUTH ONCE A DAY FOR GOUT. TAKE WITH PLENTY OF WATER 90 Sep 23, 2020 [id number] Mar 05, [address] [facility] [place] ALLOPURINOL 100MG TAB Discontinued TAKE ONE TABLET BY MOUTH ONCE A DAY FOR GOUT. TAKE WITH PLENTY OF WATER 90 Dec 30, 2019 [id number] Sep 17, [address] [facility] [place] ALOGLIPTIN 12.5MG TAB Active TAKE ONE TABLET BY MOUTH O NCE A DAY FOR DIABETES 90 Sep 12, 2020 [id number] Mar 04, 2020 ELEUTERIO LIVINGSTON [facility] [place] ALOGLIPTIN 12.5MG TAB Discontinued TAKE ONE TABLET BY MOUTH ONCE A DAY FOR DIABETES 90 Dec 22, 2019 [id number] Jun 18, 2019 BALTRUSAITIS,ELEUTERIO L [facility] [place] AMLODIPINE BESYLATE 10MG TAB Discontinued TAKE ONE TA BLET BY MOUTH EVERY MORNING FOR HEART/BLOOD PRESSURE 90 Jun 10, 2019 [id number] Feb 25, 2019 JAQUELIN MONIKA Larry [facility] [place] AMLODIPINE BESYLATE 10MG TAB TAKE ONE TA BLET BY MOUTH EVERY MORNING FOR HEART/BLOOD PRESSURE 90 Apr 12, 2020 [id number] Feb 10, 2020 SILVINA CHAMBERS [facility] ASPIRIN 81MG TAB,CHEWABLE Non-VA CHEW ONE TABLET BY MOUTH ONCE A DAY Non-VA Documented by: MEGAN HAWK nted at: [facility] [place] [facility] ATORVASTATIN CA 20MG TAB Active TAKE ONE TABLET BY MOUTH ONCE A DAY FOR CHOLESTEROL. REPORT ANY UNEXPLAINED MUSCLE PAIN OR WEAKNESS TO YOUR DOCTOR. 90 Jan 02, 2021 [id number] March 24, 2020 NELLA GROVE [facility], [place] 15 ATORVASTATIN CA 40MG TAB Discontinued TAKE ONE-HALF T ABLET BY MOUTH AT BEDTIME FOR CHOLESTEROL. REPORT ANY UNEXPLAINED MUSCLE PAIN OR WEAKNESS TO YOUR DOCTOR. 45 Jul 15, 2020 [id number] Oct 14, [address] [facility] [place] ATORVASTATIN CA 40MG TAB Discontinued TAKE ONE-HALF T ABLET BY MOUTH AT BEDTIME FOR CHOLESTEROL. REPORT ANY UNEXPLAINED MUSCLE PAIN OR WEAKNESS TO YOUR DOCTOR. 45 Oct 12, 2019 [id number] Jul 16, [address] [facility] [place] CALCIUM CARBONATE 500MG TAB,CHEWABLE Non-VA CHEW ONE TABLET BY MOUTH PRN Non-VA Documented by: THOM CHAMBERSume nted at: [facility] CHLORTHALIDONE 25MG TAB Active TAKE ONE TABLET BY MOUTH ONCE A DAY 90 Jul 01, 2020 [id number] March 19, 2020 JAQUELINMELODYMONIKA [facility] [place] CHLORTHALIDONE 25MG TAB Discontinued TAKE ONE TABLET BY MOUTH ONCE A DAY 90 Jun 16, 2019 [id number] Apr 12, 2019 MONIKA HAMMER [facility] [place] CHOLECALCIFEROL 1000UNT TAB Non-VA TAKE ONE TABLET BY MOUTH EVERY OTHER DAY Non-VA Docume nted by: MEGAN HAWK nted at: [facility] [place] CYANOCOBALAMIN 1000MCG/ML INJ Active INJECT 100 0 MCG (1 ML) INTRAMUSCULARLY EVERY MONTH FOR B12 SUPPLEMENTATION. 3 Nov 03, 2020 [id number] Apr 23, 2020 [facility] [place] [facility] CYANOCOBALAMIN 1000MCG/ML INJ Discontinued INJECT 100 0 MCG (1 ML) INTRAMUSCULARLY EVERY MONTH FOR B12 SUPPLEMENTATION. 3 Nov 17 0 [id number] Aug 07, 2019 [facility] [place] [facility] DIPHENHYDRAMINE HCL 25MG CAP Non-VA TAKE 1 CAPSULE BY MOUTH PRN Non-VA Documented by: THOM CHAMBERS nted at: [facility] DOCUSATE NA 100MG CAP No n-VA TAKE 2 CAPSULES BY MOUTH ONCE A DAY Non-VA Documented by: THOM CHAMBERS nted at: [facility] FISH OIL 1000MG (500MG DHA/EPA) CAP,ORAL Non-VA TAKE 1 CAPSULE BY MOUTH ONCE A DAY Non-VA Documented by: MEGAN HAWK Docume nted at: [facility] [place] [facility] GABAPENTIN 100MG CAP Active TAKE 1 CAPSULE BY M OUTH EVERY MORNING AND TAKE 1 CAPSULE BY MOUTH AT NOON AND TAKE 2 CAPSULES BY MOUTH AT BEDTIME 360 Jul 06, 2020 [id number] March 31, 2020 ELEUTERIO LIVINGSTON [facility] [place] GLUCAGON 1MG/GABRIELLA INJ,EMERGENCY KIT INJEC T 1MG SUBCUTANEOUSLY NEEDED FOR SEVERE HYPOGLYCEMIA 1 Nov 30, 2019 [id number] Nov 03, 2019 REYES [facility] [place] [facility] INSULIN,ASPART,HUMAN 100U/ML,NOVOLOG,FLEXPEN,3ML Active: On Hold INJECT 20 UNITS SUBCUTANEOUSLY BEFORE BREAKFAST AND INJECT 20 UNITS BEFORE LUNCH AND INJECT 26 UNITS BEFORE SUPPER AND INJECT 24 UNITS SNACK FOR BLOOD SUGAR CONTROL. ADMINISTER 10 MINUTES BEFORE FOOD DIRECTED. REFRIGERATE UN-OPENED PENS. DISCARD CARTRIDGE 28 DAYS AFTER OPENING. PLUS CORRECTION Mar 01, 2021 [id number] ELEUTERIO LIVINGSTON [facility] [place] [facility] INSULIN,ASPART,HUMAN 100U/ML,NOVOLOG,FLEXPEN,3ML Discontinue d INJECT 20 UNITS SUBCUTANEOUSLY BEFORE BREAKFAST AND INJECT 20 UNITS BEFORE LUNCH AND INJECT 24 UNITS BEFORE SUPPER AND INJECT 24 UNITS SNACK FOR BLOOD SUGAR CONTROL. ADMINISTER 10 MINUTES BEFORE FOOD DIRECTED. REFRIGERATE UN-OPENED PENS. DISCARD CARTRIDGE 28 DAYS AFTER OPENING. PLUS CORRECTION 30 Jan 26, 2021 [id number] Jan 28, 2020 ELEUTERIO LIVINGSTON [facility] [place] [facility] INSULIN,ASPART,HUMAN 100U/ML,NOVOLOG,FLEXPEN,3ML Discontinue d INJECT 20 UNITS SUBCUTANEOUSLY BEFORE MEALS FOR BLOOD SUGAR CONTROL. ADMINISTER 10 MINUTES BEFORE FOOD DIRECTED. REFRIGERATE UN-OPENED PENS. DISCARD CARTRIDGE 28 DAYS AFTER OPENING. PLUS CORRECTION FOR BLOOD SUGAR CONTROL. ADMINISTER 10 MINUTES BEFORE FOOD DIRECTED. REFRIGERATE UN-OPENED PENS. DISCARD CARTRIDGE 28 DAYS AFTER OPENING. PLUS CORRECTION 30 Nov 16, 2020 [id number] Nov 16 ELEUTERIO LIVINGSTON [facility] [place] INSULIN,ASPART,HUMAN 100U/ML,NOVOLOG,FLEXPEN,3ML Discontinue d INJECT 15 UNITS SUBCUTANEOUSLY EVERY MORNING BEFORE MEAL AND INJECT 15 UNITS WITH LUNCH AND INJECT 15 UNITS WITH SUPPER AND INJECT 20 UNITS WITH SNACK FOR BLOOD SUGAR CONTROL. ADMINISTER 10 MINUTES BEFORE FOOD DIRECTED. REFRIGERATE UN-OPENED PENS. DISCARD CARTRIDGE 28 DAYS AFTER OPENING. Dec 22, 2019 5 [id number] Oct 12, 2019 ELEUTERIO LIVINGSTON [facility] [place] INSULIN,GLARGINE,HUMAN 100 UNIT/ML INJ,SOLOSTAR,3ML Active INJECT 50 UNITS SUBCUTANEOUSLY EVERY MORNING FOR BLOOD SUGAR CONTROL. ADMINISTER AT SAME TIME EACH DAY DIRECTED. DISCARD ANY OPEN CARTRIDGE AFTER 28 DAYS. Sep 23, 2020 [id number] Jan 28, 2020 ELEUTERIO LIVINGSTON [facility] [place] [facility] INSULIN,GLARGINE,HUMAN 100 UNIT/ML INJ,SOLOSTAR,3ML Disconti nued INJECT 45 UNITS SUBCUTANEOUSLY EVERY MORNING FOR BLOOD SUGAR CONTROL. ADMINISTER AT SAME TIME EACH DAY DIRECTED. DISCARD ANY OPEN CARTRIDGE AFTER 28 DAYS. Oct 23, 2019 [id number] Aug 30, 2019 ELEUTERIO LIVINGSTON [facility] [place] [facility] LACTOBACILLUS ACIDOPHILUS TAB,CHEWABLE Non-VA CHEW ONE TABLET BY MOUTH ONCE A DAY Non-VA Documented by: MEGAN HAWK nted at: [facility] [place] [facility] LANCET,SOFTCLIX Active USE LANCET 5 TIME S A DAY FOR TESTING BLOOD GLUCOSE DIRECTED 500 Dec 28, 2020 [id number] March 19, [address] [facility] [place] LANCET,SOFTCLIX Discontinued USE LANCET 5 TIME S A DAY FOR TESTING BLOOD GLUCOSE DIRECTED 500 Jan 11, 2020 [id number] Sep 29, 2019 [address] [facility] [place] MAGNESIUM OXIDE 400MG TAB Non-VA TAKE ONE TABLET BY MOUTH ONCE A DAY Non-VA Documented by: MEGAN HAWK nted at: [facility] [place] [facility] METOPROLOL SUCCINATE 200MG TAB,SA TAKE O NE-HALF TABLET BY MOUTH EVERY EVENING FOR HEART/BLOOD PRESSURE. SWALLOW WHOLE, DO NOT CRUSH OR CHEW (TABLETS MAY BE CUT IN HALF). 45 March 18, 2020 [id number] Dec 28, 2019 STANISLAV HAMMER [facility] NEEDLE 22G 1.5IN USE NEEDLE FOR EVERY MONTH 1 Nov 12, 2019 [id number] Feb 07, 2019 [address] [facility] [place] NEEDLE,PEN 31G,5MM Discontinued USE NEEDLE SUBCUTANE OUSLY 5 TIMES A DAY - THIS IS A SINGLE USE NEEDLE AND SHOULD BE DISCARDED AFTER USE 500 Dec 21, 2019 [id number] Sep 28, 2019 BALTRUSAELEUTERIO QUIGLEY [facility] [place] [facility] POTASSIUM CHLORIDE 10MEQ TAB,SA Active TAKE TWO TABLETS BY MOUTH TWO TIMES A DAY FOR POTASSIUM SUPPLEMENTATIONTAKE WITH FOOD 360 Dec 12, 2020 [id number] Mar 02, 2020 YANELY QUINTERO [facility] [place] [facility] POTASSIUM CHLORIDE 10MEQ TAB,SA Discontinued TAKE ONE TABLET BY MOUTH THREE TIMES A DAY WITH MEALS FOR POTASSIUM SUPPLEMENTATIONTAKE WITH FOOD 180 March 16, 2020 [id number] Nov 29, 2019 BALTRUSAITISELEUTERIO [facility] [place] POTASSIUM CHLORIDE 10MEQ TAB,SA Discontinued TAKE ONE TABLET BY MOUTH THREE TIMES A DAY WITH MEALS FOR POTASSIUM SUPPLEMENTATIONTAKE WITH FOOD 180 May 26, 2019 [id number] Jan 24, [address] [facility] [place] SYRINGE 2.5-3ML/NDL 25G 1IN Active USE 1 SYRINGE EVERY MONTH 3 Feb 21, 2021 [id number] March 20, 2020 [facility] SYRINGE 2.5-3ML/NDL 25G 1IN Discontinued USE 1 SYRINGE EVERY Thu 3 March 18, 2020 [id number] Dec 21, 2019 [facility] CL INIC TESTOSTERONE CYPIONATE 200MG/ML INJ,1ML (IN OIL) Active INJECT 200 MG (1 ML) INTRAMUSCULARLY EVERY MONTH FOR HORMONE REPLACEMENT May 18, 2020 [id number] April 06, [address] [facility] [place] TESTOSTERONE CYPIONATE 200MG/ML INJ,1ML (IN OIL) Discontinue d INJECT 200 MG (1 ML) INTRAMUSCULARLY EVERY MONTH FOR HORMONE REPLACEMENT March 25, 2020 [id number] Oct 25, [address] [facility] [place] TESTOSTERONE CYPIONATE 200MG/ML INJ,1ML (IN OIL) Discontinue d INJECT 200 MG (1 ML) INTRAMUSCULARLY EVERY MONTH FOR HORMONE REPLACEMENT Nov 06, 2019 [id number] Sep 25, [address] [facility] [place] TESTOSTERONE CYPIONATE 200MG/ML INJ,1ML (IN OIL) Discontinue d INJECT 200 MG (1 ML) INTRAMUSCULARLY EVERY MONTH FOR HORMONE REPLACEMENT 1 May 14, 2019 [id number] Apr 10, 2019 [address]IDA [address] [facility] [place] TRAMADOL HCL 50MG TAB Active TAKE 1 TO 2 TABLET S BY MOUTH EVERY 6 HOURS NEEDED FOR PAIN 180 Jul 21, 2020 [id number] March 30, [address] [facility] [place] TRAMADOL HCL 50MG TAB Discontinued TAKE 1 TO 2 TABLET S BY MOUTH EVERY 6 HOURS NEEDED FOR PAIN 180 Jun 06, 2020 [id number] Jan 11, [address] [facility] [place] [facility] TRAMADOL HCL 50MG TAB Discontinued TAKE 1 TO 2 TABLET S BY MOUTH EVERY 6 HOURS NEEDED FOR PAIN 180 Jun 06, 2020 [id number] Dec 06, [address] [facility] [place] [facility] TRAMADOL HCL 50MG TAB Discontinued TAKE 1 TO 2 TABLET S BY MOUTH EVERY 6 HOURS NEEDED FOR PAIN 180 Dec 14, 2019 [id number] Nov 15, 2019 [address]DE [facility] [place] TRAMADOL HCL 50MG TAB Discontinued TAKE 1 TO 2 TABLET S BY MOUTH EVERY 6 HOURS NEEDED FOR PAIN 180 Jul 06, 2019 [id number] May 26, [address] [facility] [place] TRIAMCINOLONE ACETONIDE 0.5% CREAM,TOP Active A PPLY SPARINGLY TO AFFECTED AREA ONCE A DAY NEEDED FOR RASH 45 Jul 15, 2020 [id number] April 01 0 [address]AM[address] [facility] [place] TRIAMCINOLONE ACETONIDE 0.5% CREAM,TOP Discontinued A PPLY SPARINGLY TO AFFECTED AREA ONCE A DAY NEEDED FOR RASH 45 Oct 12, 2019 [id number] Jul REYES,DANA [facility] [place] Problems (Conditions): All historical and current Section Date Range: From patient's date of to the date document was create d. This section includes a list of Problems (Conditions) know n to [place] for the patient. It includes both active and inacti ve problems (conditions). The data comes from all [place] treatment facilities. Problem Status Problem Code Date of Onset Date of Resolution Comm ent(s) Provider Source Basal cell carcinoma of scalp Active [id number] THOM CHAMBERS [facility] [place] Chronic back pain Active [id number] TERRIE CHAMBERS [facility] [place] Chronic kidney disease stage 3 Active [id number] THOM CHAMBERS [facility] [place] Constipation Active 83231582 THOM CHAMBERS [facility] [place] Diabetes mellitus Active 64773283 THOM CHAMBERS [facility] [place] Diabetic neuropathy Active [id number] Neha CHABMERS [facility] [place] Essential hypertension Active 44198675 THOM CHAMBERS [facility] [place] Hyperlipidemia Active 99112971 THOM CHAMBERS [facility] [place] Hypogonadism Active 63161906 THOM CHAMBERS [facility] [place] Sleep apnea Active 22093479 THOM CHAMBERS [facility] [place] Radiology Reports: +/- 30 days of the encounter No Data Provided for This Section Pathology Reports: +/- 30 days of the encounter No Data Provided for This Section Encounter Notes: All associated encounter notes This section contains the clinical notes associated to the Encounter. Date/Time Encounter Note(s) Provider Source Nov 03, 2019 12:11 PM PHARMACY NOTE: LOCAL TITLE: EK-PHARMACY REFILL STANDARD TITLE: PHARMACY NOTE DATE OF NOTE: NOV 03, 2019@12:11 ENTRY DATE: NOV 03, 2019@12:11:44 AUTHOR: VASU GREGORIO EXP COSIGNER: URGENCY: STATUS: COMPLETED [place] mail request ((((((((((((((((MAIL))))))))))))))) 13) CYANOCOBALAMIN 1000MCG/ML INJ Qty: 3 ACTIVE Issu:11-16-18 for 90 days Sig: INJECT 1000 MCG (1 Refills: 0 Last:08-07-19 ML) INTRAMUSCULARLY EVERY MONTH FOR Expr:11-17-19 B12 SUPPLEMENTATION. FUTURE APPOINTMENTS: NOV 10, 2019@12:00 Clinic: TO-CLIN LAB-NONFAST MICHAELA DIALLO N/C NOV 16, 2019@13:00 Clinic: TO-PHARM PACT 5 NOV 16, 2019@14:00 Clinic: [id number] DARRIN NOV 17, 2019@10:00 Clinic: TOJAYE WELLER PACT NURSE JAN 12, 2020@14:00 Clinic: SATURNINO WELLER PACT VACCINE APRIL 05, 2020@08:00 Clinic: TO-CLIN LAB FAST MICHAELA WELLER N/C APR 12, 2020@09:00 Clinic: SATURNINO WELLER-PACT TEAM 1 PCP FUTURE LISETH REMINDERS: *If approved, please renew prescription, *If denied,PLEASE CO-SIGN CONSTRUCTION MGR TO NOTIFY PATIENT FOR ANY REASON FOR DENIAL *Pharmacy staff does not contact patients regarding the outcome of the request /noa/ vasu gregorio lpn NURSE Signed: 11/03/2019 12:12 Receipt Acknowledged By: 11/03/2019 12:14 /noa/ VASU VALENTIN [facility]
--- OUTSIDE RECORDS SUMMARY | 2020-04-18 09:52 | XMS REPORT | Encounter Summary ---
Author Author Department of [facility] SIMI palacio Organization Department of [facility] [place] Address [address] [place] [phone] Phone Unavailable Care Team Providers Care Dehydrator Tender Name Role Phone REYES THOM PCP Unavailable [...] to Policy Woodard [facility] ([facility]) MEDICARE ADVANTAGE [facility] ([facility]) Nov 09, 2017 [id number] [phone] SIMI COVARRUBIAS PATIENT [facility] ([facility]) MEDICARE [facility] ([facility]) Nov 09, 2017 [id number] [phone] SIMI COVARRUBIAS PATIENT AETNA [facility] ([facility]) MEDICARE ADVANTAGE [facility] ([facility]) Nov 09, 2019 [id number] SIMI COVARRUBIAS PATIENT Selected Encounter This section includes the information on record at [place] for the Encounter. Date/Time Encounter Type Encounter Description Reason Provider Source Nov 16, 2019 02:00 PM OFFICE/OUTPATIENT VISIT EST [facility] ICD-10-CM R86.1 Abn lev hormones in specimens from male genital organs with Provider Comments: Hypogonadism ([facility] [id number]) ADELAIDA CLIFFORD [facility] [place] IHE Encounter Template Text not used by [facility] Assessments - Encounter Diagnoses This section includes the primary and secondary diag noses documented for the Encounter. Date/Time Primary/Secondary Diagnosis Diagnosis Name Provider Source Nov 16, 2019 02:02 PM PRIMARY Abn lev hormones i n specimens from male genital organs NATALIE WILLIS [facility] [place] Plan of Treatment: Future Appointments (+ 6 months) and Future Tests (+/- 45 day s) The Plan of Treatment section includes future care activities for the patient fr om all [place] treatment facilities. This section includes future appointments and fu ture orders which are active, pending or scheduled. Future Appointments This section includes appointments that were scheduled t o occur 6 months from the date of the Encounter, up to a maximum of 20 appointme nts. The data comes from all [place] treatment facilities. Appointment Date/Time Appointment Type Appointment Facili ty Name Nov 17, 2019 10:00 AM AMBULATORY - NONE [facility] Dec 01, 2019 11:30 AM AMBULATORY - MEDICINE [facility] Dec 14, 2019 03:00 PM AMBULATORY - NONE [facility] [place] Dec 15, 2019 01:00 PM AMBULATORY - NONE [facility] Jan 12, 2020 10:00 AM AMBULATORY - NONE [facility] Jan 26, 2020 03:00 PM AMBULATORY - NONE [facility] [place] Feb 29, 2020 02:30 PM AMBULATORY - NONE [facility] [place] March 20, 2020 08:00 AM AMBULATORY - MEDICINE [facility] IN March 28, 2020 11:30 AM AMBULATORY - NONE [facility] [place] Apr 19, 2020 11:00 AM AMBULATORY - NONE [facility] [place] Apr 26, 2020 10:45 AM AMBULATORY - NONE [facility] 15 Surgical Procedures: All associated to the encounter No Data Provided for This Section Lab Results: +/- 30 days of the encounter This section includes the Chemistry and Hematology Lab R esults on record with [place] for the patient. Radiology Reports and Pathology Report s are provided separately, in subsequent sections. Lab Results This section contains the Chemistry/Hematology Results anushka t were resulted 30 days before or 30 days after the date of the Encounter. Date/Time Source Result Type Result - Unit Interpretation Reference Range Comment Dec 01, 2019 11:09 AM [facility] CBC & DIFF Specimen Type: BLOOD No [...] 01, 2019 11:09 AM [facility] RENAL FUNCTION PANEL Specimen Type: PLASMA No [...] 01, 2019 11:09 AM [facility] URINALYSIS Specimen Type: URINE No comment entered. [...] 01, 2019 11:09 AM [facility] MAGNESIUM (mg/dL) Specimen Type: PLASMA No comment entered. MAGNESIUM (mg/dL) 2.4 mg/dl 1.6-2.6 Dec 01, 2019 11:09 AM [facility] HEPATIC FUNCTION PANE L Specimen Type: PLASMA No comment entered. PROTEIN,TOTAL 7.2 g/dL 6.0-8.6 ALBUMIN 4.5 g/dl 3.4-5.0 TOTAL BILIRUBIN 0.7 mg/dL 0.2-1.2 DIRECT BILIRUBIN 0.30 mg/dL 0-0.5 ASPARTATE TRANSAMINASE 29 U/L 5-34 ALANINE AMINOTRANSFERASE 20 U/L 8-40 ALKALINE PHOSPHATASE 98 U/L 40-150 Dec 01, 2019 11:09 AM [facility] MICROALBUMIN (CO,EK) Specimen Type: URINE No comment entered. *MICROALBUMIN(CONC) 116.8 mg/dL - *MICROALBUMIN(SPOT) 651.8 mcg/mg cr HH 0-29 *CREATININE mg/dL 179.2 mg/dl Not Avail. Dec 01, 2019 11:09 AM [facility] COMPREHENSIVE METABOL IC PANEL Specimen Type: PLASMA [...] 01, 2019 11:09 AM [facility] TRAMADOL SCRN W/REFLE X,URINE Specimen Type: URINE Comment: normalcy status - Abnormal Tramadol Screen This test was performed using a forensic kit that is intended for the qualitative and semi- quantitative determination of Tramadol in human urine and has not been cleared or approved by the FDA for diagnostic purposes. The analytical performance characteristics of this test have been determined by [facility]. This test should not be used for diagnosis without confirmation by other, more specific, confirmatory analytical methodologies. Test performed by [facility] [address] [id number] Operations Support Representative: Baron Domingo M.D.,Ph.D. Test Reported by [facility], [facility], [address] [place] [address] Lawrence Mckeon M.D., Ph.D., Director of Laboratories , CLIA [id number] O-Desmethyltramadol This test was developed and its analytical performance characteristics have been determined by [facility]. It has not been cleared or approved by the US Food and Drug Administration. This assay has been validated pursuant to the CLIA regulations and is used for clinical purposes. *TRAMADOL SCREEN, URINE Positive Negati ve *TRAMADOL QUANT, URINE > 5000 ng/mL H < 10 0 *DESMETHYLTRAMADOL, URINE >5000 ng/mL H < 100 Dec 01, 2019 11:09 AM [facility] DRUGS OF ABUSE SCREEN Specimen Type: URINE No comment entered. AMPHETAMINE NEG Negative BARBITURATES NEG Negative BENZODIAZEPINES NEG Negative CANNABINOIDS NEG Negative COCAINE NEG Negative OPIATES NEG Negative PHENCYCLIDINE(PCP) NEG Negative *CREATININE,DRUG SCR 177.22 mg/dL METHADONE(UDS) NEG Negative OXYCODONE (URINE) NEG Negative ALCOHOL-URINE,RANDOM (SOSA,WI,EK) NEG mg/dL <10 Dec 01, 2019 11:09 AM [facility] URINALYSIS Specimen Type: URINE No comment entered. [...] Nov 10, 2019 11:[address] [facility] [place] [facility] HEMOGLOBIN A1C Specimen Type: BLOOD No comment entered. HEMOGLOBIN A1C 10.6 % H 4.0-6.0 Nov 10, 2019 11:[address] [facility] BASIC METABOLIC PANEL Specimen Type: PLASMA No comment entered. *CREATININE 1.60 mg/dL H 0.7-1.3 UREA NITROGEN mg/dL 24 mg/dL 9-25 GLUCOSE 226 mg/dL H 72-99 SODIUM 140 mEq/L 136-145 POTASSIUM 3.9 mEq/L 3.5-5.0 CALCIUM (mg/dL) 9.3 mg/dL 8.4-10.4 CHLORIDE 101 mEq/L 98-107 CO2 29 mEq/L 22-31 EGFR 42.6 Nov 10, 2019 11:[address] [facility] TESTOSTERONE ( ,WI,EK) Specimen Type: SERUM No comment entered. TESTOSTERONE (,WI,EK) 371 ng/dL 221-87 1 Nov 10, 2019 11:[address] [facility] CBC & DIFF Specimen Type: BLOOD No [...] 10, 2019 11:39 AM [facility] PROSTATIC SP ECIFIC ANTIGEN(TOTAL) Sp ecimen [...] /min 91 % 0 183.1 lb 31 [facility] [place] Nov 16, 2019 01:44 PM 97.3 F 58 /min 162/80 mm[Hg] 18 /min 94 % 0 [facility] [place] Immunizations: All administered on the [...] Adverse Reactions (ADR s) on record with [place] for the patient. The data comes from a [facility] treatment facilities. It does not list Allergies/ADRs that were removed or entered in error. Some allergies/ADRs may be reported in t Immunization section. Allergen Event Date Event Type Reaction(s) Severity Source LISINOPRIL Dec 01, 2017 Propensity to adverse reactions to drug (disorder) Renal impairment [facility] 15 METFORMIN Dec 01, 2017 Propensity to adverse reactions to drug (disorder) Renal impairment [facility] 15 Medications: VA dispensed (-15 months) and Non-VA Documented (Obtained Outside A) Section Date Range: 1) prescriptions processed by a VA pharmacy in the last 15 m [facility], and 2) all medications recorded in the VA medical record as "non-VA medic ations". Pharmacy terms refer to VA pharmacy's work on prescriptions. VA patient s are advised to take their medications as instructed by their health care team. The data comes from all [place] treatment facilities. Glossary of Pharmacy Terms:Active = A prescription that can be filled at the local [place] pharmacy.Active: On Hold = An active prescription that will not be filled until pharmacy resolves the issue.Active: Susp = An active prescription that is not scheduled to be filled yet.Clinic Order = A medication received during a visit to a [place] clinic or emergency department (currently not available).Discontinued [...] may be a prescription from either the [place] or other providers that was filled outside the [place]. Or, it may be an over the [...] TIMES A DAY 400 Sep 12, 2020 [id number] Feb 29, 2020 REGGIE LIVINGSTON [facility] ACCU-CHEK ROSINA PLUS (GLUCOSE) TEST STRIP Discontinued USE 1 STRIP FOR TESTING FOUR TIMES A DAY 400 Sep 15, 2019 [id number] Jun 13, 2019 ELEUTERIO MAURO [facility] ALCOHOL PREP PAD Discontinued USE 1 PAD ON SKIN FOUR TIMES A DAY 40 0 Apr 25, 2020 [id number] Nov 29, 2019 ELEUTERIO LIVINGSTON [facility] [place] ALCOHOL PREP PAD Discontinued USE 1 PAD ON SKIN FOUR TIMES A DAY 40 0 Sep 15, 2019 [id number] Apr 18, 2019 ELEUTERIO LIVINGSTON [facility] ALLOPURINOL 100MG TAB Active TAKE ONE TABLET BY MOUTH ONCE A DAY FOR GOUT. TAKE WITH PLENTY OF WATER 90 Sep 23, 2020 [id number] Mar 05, [address]ERS [facility] [place] ALLOPURINOL 100MG TAB Discontinued TAKE ONE TABLET BY MOUTH ONCE A DAY FOR GOUT. TAKE WITH PLENTY OF WATER 90 Dec 30, 2019 [id number] Sep 17, [address] [facility] [place] ALOGLIPTIN 12.5MG TAB Active TAKE ONE TABLET BY MOUTH O NCE A DAY FOR DIABETES 90 Sep 12, 2020 [id number] Mar 04, 2020 BALTRUSAELEUTERIO QUIGLEY RN [facility] [place] ALOGLIPTIN 12.5MG TAB Discontinued TAKE ONE TABLET BY MOUTH ONCE A DAY FOR DIABETES 90 Dec 22, 2019 [id number] Jun 18, 2019 BALTRUSADANN,ELEUTERIO Larry [facility] [place] AMLODIPINE BESYLATE 10MG TAB Discontinued TAKE ONE TA BLET BY MOUTH EVERY MORNING FOR HEART/BLOOD PRESSURE 90 Jun 10, 2019 [id number] Feb 25, [address] [facility] [place] AMLODIPINE BESYLATE 10MG TAB TAKE ONE TA BLET BY MOUTH EVERY MORNING FOR HEART/BLOOD PRESSURE 90 Apr 12, 2020 [id number] Feb 10, 2020 SILVINA CHAMBERS [facility] ASPIRIN 81MG TAB,CHEWABLE Non-VA CHEW ONE TABLET BY MOUTH ONCE A DAY Non-VA Documented by: MEGAN HAWK nted at: [facility] [place] ATORVASTATIN CA 20MG TAB Active TAKE ONE TABLET BY MOUTH ONCE A DAY FOR CHOLESTEROL. REPORT ANY UNEXPLAINED MUSCLE PAIN OR WEAKNESS TO YOUR DOCTOR. 90 Jan 02, 2021 [id number] March 24, 2020 NELLA GROVE [facility] [place] 15 ATORVASTATIN CA 40MG TAB Discontinued TAKE ONE-HALF T ABLET BY MOUTH AT BEDTIME FOR CHOLESTEROL. REPORT ANY UNEXPLAINED MUSCLE PAIN OR WEAKNESS TO YOUR DOCTOR. 45 Jul 15, 2020 [id number] Oct 14, [address] [facility] [place] ATORVASTATIN CA 40MG TAB Discontinued TAKE ONE-HALF T ABLET BY MOUTH AT BEDTIME FOR CHOLESTEROL. REPORT ANY UNEXPLAINED MUSCLE PAIN OR WEAKNESS TO YOUR DOCTOR. 45 Oct 12, 2019 [id number] Jul 16, [address] [facility] [place] CALCIUM CARBONATE 500MG TAB,CHEWABLE Non-VA CHEW ONE TABLET BY MOUTH PRN Non-VA Documented by: THOM CHAMBERS nted at: [facility] CHLORTHALIDONE 25MG TAB Active TAKE ONE TABLET BY MOUTH ONCE A DAY 90 Jul 01, 2020 [id number] March 19, 2020 MONIKA HAMMER [facility] [place] CHLORTHALIDONE 25MG TAB Discontinued TAKE ONE TABLET BY MOUTH ONCE A DAY 90 Jun 16, 2019 [id number] Apr 12, [address] [facility] [place] CHOLECALCIFEROL 1000UNT TAB Non-VA TAKE ONE TABLET BY MOUTH EVERY OTHER DAY Non-VA Docume nted by: MEGAN HAWK Docume nted at: [facility] DIV CYANOCOBALAMIN 1000MCG/ML INJ Active INJECT 100 0 MCG (1 ML) INTRAMUSCULARLY EVERY MONTH FOR B12 SUPPLEMENTATION. 3 Nov 03, 2020 [id number] Apr 23, 2020 [facility] [place] CYANOCOBALAMIN 1000MCG/ML INJ Discontinued INJECT 100 0 MCG (1 ML) INTRAMUSCULARLY EVERY MONTH FOR B12 SUPPLEMENTATION. 3 Nov 17 0 [id number] Aug 07, [address] [facility] [place] DIPHENHYDRAMINE HCL 25MG CAP Non-VA TAKE 1 CAPSULE BY MOUTH PRN Non-VA Documented by: THOM CHAMBERS nted at: [facility] DOCUSATE NA 100MG CAP No n-VA TAKE 2 CAPSULES BY MOUTH ONCE A DAY Non-VA Documented by: THOM CHAMBERS nted at: [facility] FISH OIL 1000MG (500MG DHA/EPA) CAP,ORAL Non-VA TAKE 1 CAPSULE BY MOUTH ONCE A DAY Non-VA Documented by: MEGAN HAWK Docume nted at: [facility] DIV GABAPENTIN 100MG CAP Active TAKE 1 CAPSULE BY M OUTH EVERY MORNING AND TAKE 1 CAPSULE BY MOUTH AT NOON AND TAKE 2 CAPSULES BY MOUTH AT BEDTIME 360 Jul 06, 2020 [id number] March 31, 2020 BALTRUSAITIS,ELEUTERIO Larry [facility] [place] GLUCAGON 1MG/GABRIELLA INJ,EMERGENCY KIT INJEC T 1MG SUBCUTANEOUSLY NEEDED FOR SEVERE HYPOGLYCEMIA 1 Nov 30, 2019 [id number] Nov 03, [address] [facility] [place] INSULIN,ASPART,HUMAN 100U/ML,NOVOLOG,FLEXPEN,3ML Active: On Hold INJECT 20 UNITS SUBCUTANEOUSLY BEFORE BREAKFAST AND INJECT 20 UNITS BEFORE LUNCH AND INJECT 26 UNITS BEFORE SUPPER AND INJECT 24 UNITS SNACK FOR BLOOD SUGAR CONTROL. ADMINISTER 10 MINUTES BEFORE FOOD DIRECTED. REFRIGERATE UN-OPENED PENS. DISCARD CARTRIDGE 28 DAYS AFTER OPENING. PLUS CORRECTION Mar 01, 2021 [id number] [facility] [place] [facility] INSULIN,ASPART,HUMAN 100U/ML,NOVOLOG,FLEXPEN,3ML Discontinue d INJECT 20 UNITS SUBCUTANEOUSLY BEFORE BREAKFAST AND INJECT 20 UNITS BEFORE LUNCH AND INJECT 24 UNITS BEFORE SUPPER AND INJECT 24 UNITS SNACK FOR BLOOD SUGAR CONTROL. ADMINISTER 10 MINUTES BEFORE FOOD DIRECTED. REFRIGERATE UN-OPENED PENS. DISCARD CARTRIDGE 28 DAYS AFTER OPENING. PLUS CORRECTION 30 Jan 26, 2021 [id number] Jan 28, 2020 [facility] [place] INSULIN,ASPART,HUMAN 100U/ML,NOVOLOG,FLEXPEN,3ML Discontinue d INJECT 20 UNITS SUBCUTANEOUSLY BEFORE MEALS FOR BLOOD SUGAR CONTROL. ADMINISTER 10 MINUTES BEFORE FOOD DIRECTED. REFRIGERATE UN-OPENED PENS. DISCARD CARTRIDGE 28 DAYS AFTER OPENING. PLUS CORRECTION FOR BLOOD SUGAR CONTROL. ADMINISTER 10 MINUTES BEFORE FOOD DIRECTED. REFRIGERATE UN-OPENED PENS. DISCARD CARTRIDGE 28 DAYS AFTER OPENING. PLUS CORRECTION 30 Nov 16, 2020 [id number] Nov 16 20 [facility] [place] INSULIN,ASPART,HUMAN 100U/ML,NOVOLOG,FLEXPEN,3ML Discontinue d INJECT 15 UNITS SUBCUTANEOUSLY EVERY MORNING BEFORE MEAL AND INJECT 15 UNITS WITH LUNCH AND INJECT 15 UNITS WITH SUPPER AND INJECT 20 UNITS WITH SNACK FOR BLOOD SUGAR CONTROL. ADMINISTER 10 MINUTES BEFORE FOOD DIRECTED. REFRIGERATE UN-OPENED PENS. DISCARD CARTRIDGE 28 DAYS AFTER OPENING. Dec 22, 2019 [id number] Oct 12, 2019 [facility] INSULIN,GLARGINE,HUMAN 100 UNIT/ML INJ,SOLOSTAR,3ML Active INJECT 50 UNITS SUBCUTANEOUSLY EVERY MORNING FOR BLOOD SUGAR CONTROL. ADMINISTER AT SAME TIME EACH DAY DIRECTED. DISCARD ANY OPEN CARTRIDGE AFTER 28 DAYS. Sep 23, 2020 [id number] Jan 28, 2020 ELEUTERIO LIVINGSTON [facility] TO [facility] INSULIN,GLARGINE,HUMAN 100 UNIT/ML INJ,SOLOSTAR,3ML Disconti nued INJECT 45 UNITS SUBCUTANEOUSLY EVERY MORNING FOR BLOOD SUGAR CONTROL. ADMINISTER AT SAME TIME EACH DAY DIRECTED. DISCARD ANY OPEN CARTRIDGE AFTER 28 DAYS. 15 Oct 23, 2019 [id number] Aug 30, 2019 [address]LEUTERIO LIVINGSTON [facility] TO [facility] LACTOBACILLUS ACIDOPHILUS TAB,CHEWABLE Non-VA CHEW ONE TABLET BY MOUTH ONCE A DAY Non-VA Documented by: MEGAN HAWK nted at: [facility] LANCET,SOFTCLIX Active USE LANCET 5 TIME S A DAY FOR TESTING BLOOD GLUCOSE DIRECTED 500 Dec 28, 2020 [id number] March 19, 2020 ELEUTERIO LIVINGSTON [facility] [place] LANCET,SOFTCLIX Discontinued USE LANCET 5 TIME S A DAY FOR TESTING BLOOD GLUCOSE DIRECTED 500 Jan 11, 2020 [id number] Sep 29, 2019 ELEUTERIO PATEL [facility] DIV MAGNESIUM OXIDE 400MG TAB Non-VA TAKE ONE TABLET BY MOUTH ONCE A DAY Non-VA Documented by: MEGAN HAWK nted at: [facility] METOPROLOL SUCCINATE 200MG TAB,SA TAKE O NE-HALF TABLET BY MOUTH EVERY EVENING FOR HEART/BLOOD PRESSURE. SWALLOW WHOLE, DO NOT CRUSH OR CHEW (TABLETS MAY BE CUT IN HALF). 45 March 18, 2020 [id number] Dec 28, 2019 STANISLAV HAMMER [facility] NEEDLE 22G 1.5IN USE NEEDLE FOR EVERY MONTH Nov 12, 2019 [id number] Feb 07, 2019 ADELAIDA CLIFFORD [facility] NEEDLE,PEN 31G,5MM Discontinued USE NEEDLE SUBCUTANE OUSLY 5 TIMES A DAY - THIS IS A SINGLE USE NEEDLE AND SHOULD BE DISCARDED AFTER USE 500 Dec 21, 2019 [id number] Sep 28, 2019 ELEUTERIO LIVINGSTON [facility] TO [facility] POTASSIUM CHLORIDE 10MEQ TAB,SA Active TAKE TWO TABLETS BY MOUTH TWO TIMES A DAY FOR POTASSIUM SUPPLEMENTATIONTAKE WITH FOOD 360 Dec 12, 2020 [id number] Mar 02, 2020 YANELY QUINTERO [facility] [place] 15 POTASSIUM CHLORIDE 10MEQ TAB,SA Discontinued TAKE ONE TABLET BY MOUTH THREE TIMES A DAY WITH MEALS FOR POTASSIUM SUPPLEMENTATIONTAKE WITH FOOD 180 March 16, 2020 [id number] Nov 29, 2019 ELEUTERIO LIVINGSTON DELLROSE [facility] [place] POTASSIUM CHLORIDE 10MEQ TAB,SA Discontinued TAKE ONE TABLET BY MOUTH THREE TIMES A DAY WITH MEALS FOR POTASSIUM SUPPLEMENTATIONTAKE WITH FOOD 180 May 26, 2019 [id number] Jan 24, 2019 YANELY QUINTERO [facility] S [place] SYRINGE 2.5-3ML/NDL 25G 1IN Active USE 1 SYRINGE EVERY MONTH 3 Feb 21, 2021 [id number] March 20, 2020 [facility] SYRINGE 2.5-3ML/NDL 25G 1IN Discontinued USE 1 SYRINGE EVERY Thu 3 March 18, 2020 [id number] Dec 21, 2019 [facility] TESTOSTERONE CYPIONATE 200MG/ML INJ,1ML (IN OIL) Active INJECT 200 MG (1 ML) INTRAMUSCULARLY EVERY MONTH FOR HORMONE REPLACEMENT 1 May 18, 2020 [id number] April 06, [address] [facility] [place] TESTOSTERONE CYPIONATE 200MG/ML INJ,1ML (IN OIL) Discontinue d INJECT 200 MG (1 ML) INTRAMUSCULARLY EVERY MONTH FOR HORMONE REPLACEMENT 1 March 25, 2020 [id number] Oct 25, 2019 [address]LAIDA CLIFFORD [facility] [place] TESTOSTERONE CYPIONATE 200MG/ML INJ,1ML (IN OIL) Discontinue d INJECT 200 MG (1 ML) INTRAMUSCULARLY EVERY MONTH FOR HORMONE REPLACEMENT Nov 06, 2019 [id number] Sep 25, [address]ORD [facility] [place] TESTOSTERONE CYPIONATE 200MG/ML INJ,1ML (IN OIL) Discontinue d INJECT 200 MG (1 ML) INTRAMUSCULARLY EVERY MONTH FOR HORMONE REPLACEMENT May 14, 2019 [id number] Apr 10, 2019 [address]LAIDA [address]IFFORD [facility] [place] TRAMADOL HCL 50MG TAB Active TAKE 1 TO 2 TABLET S BY MOUTH EVERY 6 HOURS NEEDED FOR PAIN 180 Jul 21, 2020 [id number] March 30, 2020 NELLA GROVE [facility] [place] 15 TRAMADOL HCL 50MG TAB Discontinued TAKE 1 TO 2 TABLET S BY MOUTH EVERY 6 HOURS NEEDED FOR PAIN 180 Jun 06, 2020 [id number] Jan 11, 2020 ROSSY GROVE [facility] [place] 15 TRAMADOL HCL 50MG TAB Discontinued TAKE 1 TO 2 TABLET S BY MOUTH EVERY 6 HOURS NEEDED FOR PAIN 180 Jun 06, 2020 [id number] Dec 06, 2019 ROSSY GROVE [facility] [place] 15 TRAMADOL HCL 50MG TAB Discontinued TAKE 1 TO 2 TABLET S BY MOUTH EVERY 6 HOURS NEEDED FOR PAIN 180 Dec 14, 2019 [id number] Nov 15, 2019 [address] [facility] [place] TRAMADOL HCL 50MG TAB Discontinued TAKE 1 TO 2 TABLET S BY MOUTH EVERY 6 HOURS NEEDED FOR PAIN 180 Jul 06, 2019 [id number] May 26, 2019 ROSSY GROVE [facility] [place] TRIAMCINOLONE ACETONIDE 0.5% CREAM,TOP Active A PPLY SPARINGLY TO AFFECTED AREA ONCE A DAY NEEDED FOR RASH 45 Jul 15, 2020 [id number] April 01 0 [address]AM[address]ERS [facility] [place] TRIAMCINOLONE ACETONIDE 0.5% CREAM,TOP Discontinued A PPLY SPARINGLY TO AFFECTED AREA ONCE A DAY NEEDED FOR RASH 45 Oct 12, 2019 [id number] Jul [facility] [place] Problems (Conditions): All historical and current Section Date Range: From patient's date of to the date document was create d. This section includes a list of Problems (Conditions) know n to VA for the patient. It includes both active and inacti ve problems (conditions). The data comes from all [place] treatment facilities. Problem Status Problem Code Date of Onset Date of Resolution Comm ent(s) Provider Source Basal cell carcinoma of scalp Active [id number] REYES,DANA [facility] [place] Chronic back pain Active [id number] REYESTERRIE WALL [facility] [place] Chronic kidney disease stage 3 Active [id number] [facility] [place] Constipation Active [id number] THOM CHAMBERS [facility] [place] Diabetes mellitus Active [id number] THOM CHAMBERS [facility] [place] Diabetic neuropathy Active [id number] Neha CHAMBERS [facility] [place] Essential hypertension Active [id number] THOM CHAMBERS [facility] [place] Hyperlipidemia Active [id number] THOM CHAMBERS [facility] [place] Hypogonadism Active [id number] THOM CHAMBERS [facility] [place] Sleep apnea Active [id number] THOM CHAMBERS [facility] [place] Radiology Reports: +/- 30 days of the encounter No Data Provided for This Section Pathology Reports: +/- 30 days of the encounter No Data Provided for This Section Encounter Notes: All associated encounter notes This section contains the clinical notes associated to the Encounter. Date/Time Encounter Note(s) Provider Source Nov 16, 2019 02:02 PM ACCOUNTING OF DISCLOSURES NO TE: LOCAL TITLE: STATE PRESCRIPTION DRUG MONITORING PROGRAM (SPDMP)- STANDARD TITLE: ACCOUNTING OF DISCLOSURES NOTE DATE OF NOTE: NOV 16, 2019@14:02 ENTRY DATE: NOV 16, 2019@14:02:45 AUTHOR: ADELAIDA CLIFFORDIGNER: URGENCY: STATUS: COMPLETED STATE PRESCRIPTION DRUG MONITORING PROGRAM (SPDMP): Purpose: [place] and the [facility] are exchanging information so that the VA provider can manage your health care. The State may use this information to monitor controlled substance prescriptions and for law enforcement purposes. I reviewed patient's State Prescription Drug Monitoring Program [facility] report prior to prescribing Schedule II or Schedule III medications. Report request number State: [place] FINDINGS: No unexpected Non-VA prescriptions /es/ ADELAIDA CLIFFORD PA-C Signed: 11/16/2019 14:03 [address] [facility] Nov 16, 2019 01:47 PM PHYSICIAN METAL SANDER AND FINISHER NOTE: LOCAL TITLE: EK-PHYSICIAN ASST SURGERY STANDARD TITLE: PHYSICIAN METAL SANDER AND FINISHER NOTE DATE OF NOTE: NOV 16, 2019@13:47 ENTRY DATE: NOV 16, 2019@13:48:01 AUTHOR: ADELAIDA CLIFFORDER: URGENCY: STATUS: COMPLETED CHIEF COMPLAINT: Hypogonadism HISTORY OF PRESENT ILLNESS: Here for 12 month f/u. Pt is on Testosterone cyp 200mg IM qMonth. Last injeciton was done roughly 10/23. He had been on Androgel and testosterone patches and states that the injections seem to work much better in dealing with his fatigue. He states he feels well and has no c/o. ROS: 10-point ROS is negative. PAST MEDICAL HISTORY: Active Problem Diabetes mellitus Diabetic neuropathy Essential hypertension Hyperlipidemia Sleep apnea Constipation Chronic back pain Hypogonadism MEDICATIONS: Active Outpatient Medications (including Supplies): ACCU-CHEK ROSINA PLUS(GLUCOSE) TEST STRIP USE 1 STRIP FOR ACTIVE TESTING FOUR TIMES A DAY ALCOHOL PREP PAD USE 1 PAD ON SKIN FOUR TIMES A DAY ACTIVE ALLOPURINOL 100MG TAB TAKE ONE TABLET BY MOUTH ONCE A DAY ACTIVE (S) FOR GOUT. TAKE WITH PLENTY OF WATER ALOGLIPTIN 12.5MG TAB TAKE ONE TABLET BY MOUTH ONCE A DAY ACTIVE FOR DIABETES AMLODIPINE BESYLATE 10MG TAB TAKE ONE TABLET BY MOUTH ACTIVE EVERY MORNING FOR HEART/BLOOD PRESSURE ATORVASTATIN CALCIUM 40MG TAB TAKE ONE-HALF TABLET BY ACTIVE MOUTH AT BEDTIME FOR CHOLESTEROL. REPORT ANY UNEXPLAINED MUSCLE PAIN OR WEAKNESS TO YOUR DOCTOR. CHLORTHALIDONE 25MG TAB TAKE ONE TABLET BY MOUTH ONCE A ACTIVE DAY CYANOCOBALAMIN 1000MCG/ML INJ INJECT 1000 MCG (1 ML) ACTIVE INTRAMUSCULARLY EVERY MONTH FOR B12 SUPPLEMENTATION. GABAPENTIN 100MG CAP TAKE ONE CAPSULE BY MOUTH EVERY ACTIVE MORNING AND TAKE ONE CAPSULE AT NOON AND TAKE TWO CAPSULES AT BEDTIME GLUCAGON 1MG/GABRIELLA INJ EMERGENCY KIT INJECT 1MG ACTIVE SUBCUTANEOUSLY NEEDED FOR SEVERE HYPOGLYCEMIA INSULIN,ASPART 100UN/ML CHANTELLE FLEXPEN 3ML INJECT 15 UNITS ACTIVE SUBCUTANEOUSLY EVERY MORNING BEFORE MEAL AND INJECT 15 UNITS WITH LUNCH AND INJECT 15 UNITS WITH SUPPER AND INJECT 20 UNITS WITH SNACK FOR BLOOD SUGAR CONTROL. ADMINISTER 10 MINUTES BEFORE FOOD DIRECTED. REFRIGERATE UN-OPENED PENS. DISCARD CARTRIDGE 28 DAYS AFTER OPENING. INSULIN,GLARGINE 100 UNT/ML 3ML SOLOSTAR INJECT 50 UNITS ACTIVE SUBCUTANEOUSLY EVERY MORNING FOR BLOOD SUGAR CONTROL. ADMINISTER AT SAME TIME EACH DAY DIRECTED. DISCARD ANY OPEN CARTRIDGE AFTER 28 DAYS. LANCET,SOFTCLIX USE LANCET 5 TIMES A DAY FOR TESTING ACTIVE BLOOD GLUCOSE DIRECTED METOPROLOL SUCCINATE 200MG SA TAB TAKE ONE-HALF TABLET BY ACTIVE MOUTH EVERY EVENING FOR HEART/BLOOD PRESSURE. SWALLOW WHOLE, DO NOT CRUSH OR CHEW (TABLETS MAY BE CUT IN HALF). NEEDLE,PEN 31G,5MM USE NEEDLE SUBCUTANEOUSLY 5 TIMES A DAY ACTIVE - THIS IS A SINGLE USE NEEDLE AND SHOULD BE DISCARDED AFTER USE POTASSIUM CHLORIDE 10MEQ SA TAB TAKE ONE TABLET BY MOUTH ACTIVE THREE TIMES A DAY WITH MEALS FOR POTASSIUM SUPPLEMENTATIONTAKE WITH FOOD SYRINGE 3ML/NDL 25G 1IN USE 1 SYRINGE EVERY MONTH ACTIVE TESTOSTERONE CYP 200MG/ML 1ML IN OIL INJECT 200 MG (1 ACTIVE ML) INTRAMUSCULARLY EVERY MONTH FOR HORMONE REPLACEMENT TRAMADOL HCL 50MG TAB TAKE 1 TO 2 TABLETS BY MOUTH EVERY 6 ACTIVE HOURS NEEDED FOR PAIN TRIAMCINOLONE 0.5% CR APPLY SPARINGLY TO AFFECTED AREA ACTIVE ONCE A DAY NEEDED FOR RASH Non-VA ASPIRIN 81MG CHEW TAB 81MG MOUTH ONCE A DAY ACTIVE Non-VA CHOLECALCIFEROL (VIT D3) 1,000UNIT TAB 1000UNIT ACTIVE MOUTH EVERY OTHER DAY Non-VA DOCUSATE NA 100MG CAP 200MG MOUTH ONCE A DAY ACTIVE Non-VA FISH OIL 1000MG (500MG DHA/EPA) CAP 1000MG MOUTH ACTIVE ONCE A DAY Non-VA LACTOBACILLUS ACIDOPHILUS CHEW TAB 1 TABLET MOUTH ACTIVE ONCE A DAY Non-VA MAGNESIUM OXIDE 400MG TAB 400MG MOUTH ONCE A DAY ACTIVE Compared newly ordered medications and medication changes to active medications and non-VA medications, and then reviewed medications with patient and/or caregiver. All discrepancies noted and reconciled. Patients, or caregivers, was provided with reconciled medications list and advised to provide to all non VA providers. Potential adverse reactions of new medications were discussed with the patient. ALLERGIES: Patient has answered NKA PHYSICAL EXAM: VSS: B/P: 162/80 (11/16/2019 13:44) Temp: 97.3 F [36.3 C] (11/16/2019 13:44) Pulse: 58 (11/16/2019 13:44) Resp: 18 (11/16/2019 13:44) Height: 64.5 in [163.8 cm] (10/23/2017 11:06) Weight: 177 lb [80.5 kg] (10/20/2019 11:05) Pain: 0 (11/16/2019 13:44) BMI: 30.0 General: Normally developed, adequately nourished, ambulatory, oriented, in no acute distress. LABS: Testosterone 371 ng/dL PSA 1.08 ASSESSMENT: hypogonadism PLAN/INSTRUCTIONS: -The results of the diagnostic work-up w ere explained to the patient. -MEDICATION RECONCILIATION I have reviewed all medications the patient is taking with the patient and/or caregiver. This includes the Active Medication List and Non-VA Medication List including over the counter and supplemental medications. I have made changes on the Outpatient Medication List and updated the Non-VA Medication List as appropriate. Copy of medication list given to patient and/or caregiver. Patient verbalizes understanding: yes. -Tesosterone cyp 200mg IM and supplies o rdered. -RTC 12 months w/ cbc, psa, testosterone , sooner PRN /es/ ADELAIDA CLIFFORD PA-C Signed: 11/16/2019 14:02 ADELAIDA CLIFFORD [facility] Nov 16, 2019 01:45 PM NURSING OUTPATIENT NOTE: LOCAL TITLE: EK-NURSING CLINIC CHECK-IN STANDARD TITLE: NURSING OUTPATIENT NOTE DATE OF NOTE: NOV 16, 2019@13:45 ENTRY DATE: NOV 16, 2019@13:45:32 AUTHOR: LIDA MITCHELL EXP COSIGNER: URGENCY: STATUS: COMPLETED PRIMARY REASON FOR VISIT TODAY: f/u labs and testosterone level ALLERGIES/ADR: METFORMIN, LISINOPRIL B/P: 162/80 (11/16/2019 13:44) Temp: 97.3 F [36.3 C] (11/16/2019 13:44) Pulse: 58 (11/16/2019 13:44) Resp: 18 (11/16/2019 13:44) Height: 64.5 in [163.8 cm] (10/23/2017 11:06) Weight: 177 lb [80.5 kg] (10/20/2019 11:05) Pain: 0 (11/16/2019 13:44) BMI: 30.0 MEDICATION RECONCILIATION: Copy of current medication list on file provided for patient. Instructed to compare with all medications they are currently taking, and to review /discuss discrepancies with provider. LEARNING ASSESSMENT: Patient's preferred language for discussing health care is: Russian Today's learning assessment regarding patient's readiness to learn. Patient reads well. Barriers to Learning: Has no barriers to learning. Preferred Method of Learning: Reading Listening Seeing / Videos Demonstration Return Demonstration Hands On/Doing Education provided as per documentation below: SCREENING FOR PAIN STATUS: Patient reported pain level as 0 on 0 to 10 scale. * Today's [...] safe; denies concern of abuse or neglect. /noa/ LIDA IMTCHELL RN, MSN Signed: 11/16/2019 13:46 LIDA MITCHELL [facility]
--- OUTSIDE RECORDS SUMMARY | 2020-04-18 09:52 | XMS REPORT | Encounter Summary ---
Author Author [facility] SIMI palacio Organization Department of [facility] Address [address] [place] [phone] Phone Unavailable Care Team Providers Care Housekeeping Aid Name Role Phone THOM CHAMBERS PCP Unavailable [...] FREEDOM MED REP (R) MEDICARE ADVANTAGE MCR ([facility]) Nov 09, 2017 [id number] [phone] SIMI COVARRUBIAS PATIENT ADVANTRA [facility]OM MED REP (WNR) MEDICARE ADVANTAGE MCR ([facility]) Nov 09, 2017 [id number] [phone] SIMI COVARRUBIAS PATIENT AETNA MCR ([facility]) MEDICARE ADVANTAGE MCR ([facility]) Nov 09, 2019 [id number] SIMI COVARRUBIAS PATIENT Selected Encounter This section includes the information on record at PA for the Encounter. Date/Time Encounter Type Encounter Description Reason Provider Source Oct 20, 2019 12:00 AM Outpatient Encounter EVENT (HISTORICAL) [facility] 15 IHE Encounter Template Text not used by PA Assessments - Encounter Diagnoses No Data Provided for This Section Plan of Treatment: Future Appointments (+ 6 months) and Future Tests (+/- 45 day s) The Plan of Treatment section includes future care activities for the patient fr om all PA treatment facilities. This section includes future appointments and fu ture orders which are active, pending or scheduled. Future Appointments This section includes appointments that were scheduled t o occur 6 months from the date of the Encounter, up to a maximum of 20 appointme nts. The data comes from all PA treatment facilities. Appointment Date/Time Appointment Type Appointment Facili ty Name Nov 10, 2019 12:00 PM AMBULATORY - MEDICINE [facility] Nov 16, 2019 02:00 PM AMBULATORY - SURGERY [facility] Nov 16, 2019 03:00 PM AMBULATORY - NONE [facility] Nov 17, 2019 10:00 AM AMBULATORY - NONE [facility] Dec 01, 2019 11:30 AM AMBULATORY - MEDICINE [facility] Dec 14, 2019 03:00 PM AMBULATORY - NONE [facility] Dec 15, 2019 01:00 PM AMBULATORY - NONE [facility] Jan 12, 2020 10:00 AM AMBULATORY - NONE [facility] Jan 26, 2020 03:00 PM AMBULATORY - NONE [facility] Feb 29, 2020 02:30 PM AMBULATORY - NONE [facility] March 20, 2020 08:00 AM AMBULATORY - MEDICINE [facility] March 28, 2020 11:30 AM AMBULATORY - NONE [facility] Apr 19, 2020 11:00 AM AMBULATORY - NONE [facility] Surgical Procedures: All associated to the encounter No Data Provided for This Section Lab Results: +/- 30 days of the encounter This section includes the Chemistry and Hematology Lab R esults on record with PA for the patient. Radiology Reports and Pathology Report s are provided separately, in subsequent sections. Lab Results This section contains the Chemistry/Hematology Results anushka t were resulted 30 days before or 30 days after the date of the Encounter. Date/Time Source Result Type Result - Unit Interpretation Reference Range Comment Nov 10, 2019 11:39 AM [facility] HEMOGLOBIN A1C Specimen Type: BLOOD No comment entered. HEMOGLOBIN A1C 10.6 % H 4.0-6.0 Nov 10, 2019 11:39 AM [facility] BASIC METABOLIC PANEL Specimen Type: PLASMA No comment entered. *CREATININE 1.60 mg/dL H 0.7-1.3 UREA NITROGEN mg/dL 24 mg/dL 9-25 GLUCOSE 226 mg/dL H 72-99 SODIUM 140 mEq/L 136-145 POTASSIUM 3.9 mEq/L 3.5-5.0 CALCIUM (mg/dL) 9.3 mg/dL 8.4-10.4 CHLORIDE 101 mEq/L 98-107 CO2 29 mEq/L 22-31 EGFR 42.6 Nov 10, 2019 11:39 AM [facility] TESTOSTERONE (SOSA ,WI,EK) Specimen Type: SERUM No comment entered. TESTOSTERONE (SOSA,WI,EK) 371 ng/dL 221-87 1 Nov 10, 2019 11:39 AM [facility] CBC & DIFF Specimen Type: BLOOD No [...] 0.3 % Nov 10, 2019 11:39 AM [facility] [employer] [facility] [employer] PROSTATIC SP ECIFIC ANTIGEN(TOTAL) Sp ecimen Type: [...] patient. The data comes from a ll PA treatment facilities. It does not list Allergies/ADRs that were removed or entered in error. Some allergies/ADRs may be reported in t he Immunization section. Allergen Event Date Event Type Reaction(s) Severity Source LISINOPRIL Dec 01, 2017 Propensity to adverse reactions to drug (disorder) Renal impairment [facility] 15 METFORMIN Dec 01, 2017 Propensity to adverse reactions to drug (disorder) Renal impairment [facility] 15 Medications: VA dispensed (-15 months) and Non-VA Documented (Obtained Outside A) Section Date Range: 1) prescriptions processed by a VA pharmacy in the last 15 m [facility], and 2) all medications recorded in the PA medical record as "non-VA medic ations". Pharmacy terms refer to PA pharmacy's work on prescriptions. VA patient s are advised to take their medications as instructed by their health care team. The data comes from all PA treatment facilities. Glossary of Pharmacy Terms:Active = A prescription that can be filled at the local PA pharmacy.Active: On Hold = An active prescription that will not be filled until pharmacy resolves the issue.Active: Susp = An active prescription that is not scheduled to be filled yet.Clinic Order = A medication received during a visit to a PA clinic or emergency department (currently not available).Discontinued [...] TIMES A DAY 400 Sep 12, 2020 [id number] Feb 29, 2020 BALELEUTERIO KONG [facility] ACCU-CHEK ROSINA PLUS (GLUCOSE) TEST STRIP Discontinued USE 1 STRIP FOR TESTING FOUR TIMES A DAY 400 Sep 15, 2019 [id number] Jun 13, 2019 BALTRUSAIT IS,ELEUTERIO Larry [facility] ALCOHOL PREP PAD Discontinued USE 1 PAD ON SKIN FOUR TIMES A DAY 40 0 Apr 25, 2020 [id number] Nov 29, [address] [facility] [place] [facility] ALCOHOL PREP PAD Discontinued USE 1 PAD ON SKIN FOUR TIMES A DAY 40 0 Sep 15, 2019 [id number] Apr 18, 2019 BALDILANELEUTERIO Laron [facility] [address] ALLOPURINOL 100MG TAB Active TAKE ONE TABLET BY MOUTH ONCE A DAY FOR GOUT. TAKE WITH PLENTY OF WATER 90 Sep 23, 2020 [id number] Mar 05, 2020 SILVINA CHAMBERS [facility] ALLOPURINOL 100MG TAB Discontinued TAKE ONE TABLET BY MOUTH ONCE A DAY FOR GOUT. TAKE WITH PLENTY OF WATER 90 Dec 30, 2019 [id number] Sep 17, 2019 THOM SHARPE [facility] [place] [facility] ALOGLIPTIN 12.5MG TAB Active TAKE ONE TABLET BY MOUTH O NCE A DAY FOR DIABETES 90 Sep 12, 2020 [id number] Mar 04, 2020 BALELEUTERIO KONG [facility] [place] [facility] ALOGLIPTIN 12.5MG TAB Discontinued TAKE ONE TABLET BY MOUTH ONCE A DAY FOR DIABETES 90 Dec 22, 2019 [id number] Jun 18, 2019 ELEUTERIO LIVINGSTON [facility] [facility] AMLODIPINE BESYLATE 10MG TAB Discontinued TAKE ONE TA BLET BY MOUTH EVERY MORNING FOR HEART/BLOOD PRESSURE 90 Jun 10, 2019 [id number] Feb 25, 2019 MONIKA HAMMER [facility] [facility] AMLODIPINE BESYLATE 10MG TAB TAKE ONE TA BLET BY MOUTH EVERY MORNING FOR HEART/BLOOD PRESSURE 90 Apr 12, 2020 [id number] Feb 10, 2020 SILVINA CHAMBERS [facility] ASPIRIN 81MG TAB,CHEWABLE Non-VA CHEW ONE TABLET BY MOUTH ONCE A DAY Non-VA Documented by: MEGAN HAWK nted at: [facility] ATORVASTATIN CA 20MG TAB Active TAKE ONE TABLET BY MOUTH ONCE A DAY FOR CHOLESTEROL. REPORT ANY UNEXPLAINED MUSCLE PAIN OR WEAKNESS TO YOUR DOCTOR. 90 Jan 02, 2021 [id number] March 24, 2020 [facility] ATORVASTATIN CA 40MG TAB Discontinued TAKE ONE-HALF T ABLET BY MOUTH AT BEDTIME FOR CHOLESTEROL. REPORT ANY UNEXPLAINED MUSCLE PAIN OR WEAKNESS TO YOUR DOCTOR. 45 Jul 15, 2020 [id number] Oct 14, 2019 THOM CHAMBERS [facility] [facility] ATORVASTATIN CA 40MG TAB Discontinued TAKE ONE-HALF T ABLET BY MOUTH AT BEDTIME FOR CHOLESTEROL. REPORT ANY UNEXPLAINED MUSCLE PAIN OR WEAKNESS TO YOUR DOCTOR. 45 Oct 12, 2019 [id number] Jul 16, 2019 THOM CHAMBERS [facility] [place] [facility] CALCIUM CARBONATE 500MG TAB,CHEWABLE Non-VA CHEW ONE TABLET BY MOUTH PRN Non-VA Documented by: THOM CHAMBERS nted at: [facility] CHLORTHALIDONE 25MG TAB Active TAKE ONE TABLET BY MOUTH ONCE A DAY 90 Jul 01, 2020 [id number] March 19, 2020 MONIKA HAMMER [facility] [facility] CHLORTHALIDONE 25MG TAB Discontinued TAKE ONE TABLET BY MOUTH ONCE A DAY 90 Jun 16, 2019 [id number] Apr 12, 2019 MONIKA HAMMER [facility] [facility] CHOLECALCIFEROL 1000UNT TAB Non-VA TAKE ONE TABLET BY MOUTH EVERY OTHER DAY Non-VA Docume nted by: MEGAN HAWKume nted at: [facility] CYANOCOBALAMIN 1000MCG/ML INJ Active INJECT 100 0 MCG (1 ML) INTRAMUSCULARLY EVERY MONTH FOR B12 SUPPLEMENTATION. 3 Nov 03, 2020 [id number] Apr 23, 2020 THOM CHAMBERS [facility] CYANOCOBALAMIN 1000MCG/ML INJ Discontinued INJECT 100 0 MCG (1 ML) INTRAMUSCULARLY EVERY MONTH FOR B12 SUPPLEMENTATION. 3 Nov 17 0 [id number] Aug 07, 2019 THOM CHAMBERS [facility] [facility] DIPHENHYDRAMINE HCL 25MG CAP Non-VA TAKE 1 CAPSULE BY MOUTH PRN Non-VA Documented by: THOM CHAMBERS nted at: [facility] DOCUSATE NA 100MG CAP No n-VA TAKE 2 CAPSULES BY MOUTH ONCE A DAY Non-VA Documented by: THOM CHAMBERSume nted at: [facility] FISH OIL 1000MG (500MG DHA/EPA) CAP,ORAL Non-VA TAKE 1 CAPSULE BY MOUTH ONCE A DAY Non-VA Documented by: MEGAN HAWK Docume nted at: [facility] GABAPENTIN 100MG CAP Active TAKE 1 CAPSULE BY M OUTH EVERY MORNING AND TAKE 1 CAPSULE BY MOUTH AT NOON AND TAKE 2 CAPSULES BY MOUTH AT BEDTIME 360 Jul 06, 2020 [id number] March 31, [address] [facility] [place] [facility] GLUCAGON 1MG/GABRIELLA INJ,EMERGENCY KIT INJEC T 1MG SUBCUTANEOUSLY NEEDED FOR SEVERE HYPOGLYCEMIA 1 Nov 30, 2019 [id number] Nov 03, 2019 THOM CHAMBERS [facility] INSULIN,ASPART,HUMAN 100U/ML,NOVOLOG,FLEXPEN,3ML Active: On Hold INJECT 20 UNITS SUBCUTANEOUSLY BEFORE BREAKFAST AND INJECT 20 UNITS BEFORE LUNCH AND INJECT 26 UNITS BEFORE SUPPER AND INJECT 24 UNITS SNACK FOR BLOOD SUGAR CONTROL. ADMINISTER 10 MINUTES BEFORE FOOD DIRECTED. REFRIGERATE UN-OPENED PENS. DISCARD CARTRIDGE 28 DAYS AFTER OPENING. PLUS CORRECTION Mar 01, 2021 [id number] ELEUTERIO LIVINGSTON [facility] INSULIN,ASPART,HUMAN 100U/ML,NOVOLOG,FLEXPEN,3ML Discontinue d INJECT 20 UNITS SUBCUTANEOUSLY BEFORE BREAKFAST AND INJECT 20 UNITS BEFORE LUNCH AND INJECT 24 UNITS BEFORE SUPPER AND INJECT 24 UNITS SNACK FOR BLOOD SUGAR CONTROL. ADMINISTER 10 MINUTES BEFORE FOOD DIRECTED. REFRIGERATE UN-OPENED PENS. DISCARD CARTRIDGE 28 DAYS AFTER OPENING. PLUS CORRECTION 30 Jan 26, 2021 [id number] Jan 28, 2020 ELEUTERIO LIVINGSTON [facility] INSULIN,ASPART,HUMAN 100U/ML,NOVOLOG,FLEXPEN,3ML Discontinue d INJECT 20 UNITS SUBCUTANEOUSLY BEFORE MEALS FOR BLOOD SUGAR CONTROL. ADMINISTER 10 MINUTES BEFORE FOOD DIRECTED. REFRIGERATE UN-OPENED PENS. DISCARD CARTRIDGE 28 DAYS AFTER OPENING. PLUS CORRECTION FOR BLOOD SUGAR CONTROL. ADMINISTER 10 MINUTES BEFORE FOOD DIRECTED. REFRIGERATE UN-OPENED PENS. DISCARD CARTRIDGE 28 DAYS AFTER OPENING. PLUS CORRECTION 30 Nov 16, 2020 [id number] Nov 16 ELEUTERIO LIVINGSTON [facility] INSULIN,ASPART,HUMAN 100U/ML,NOVOLOG,FLEXPEN,3ML Discontinue d INJECT 15 UNITS SUBCUTANEOUSLY EVERY MORNING BEFORE MEAL AND INJECT 15 UNITS WITH LUNCH AND INJECT 15 UNITS WITH SUPPER AND INJECT 20 UNITS WITH SNACK FOR BLOOD SUGAR CONTROL. ADMINISTER 10 MINUTES BEFORE FOOD DIRECTED. REFRIGERATE UN-OPENED PENS. DISCARD CARTRIDGE 28 DAYS AFTER OPENING. Dec 22, 2019 [id number] Oct 12, 2019 ELEUTERIO LIVINGSTON [facility] [place] [facility] INSULIN,GLARGINE,HUMAN 100 UNIT/ML INJ,SOLOSTAR,3ML Active INJECT 50 UNITS SUBCUTANEOUSLY EVERY MORNING FOR BLOOD SUGAR CONTROL. ADMINISTER AT SAME TIME EACH DAY DIRECTED. DISCARD ANY OPEN CARTRIDGE AFTER 28 DAYS. Sep 23, 2020 [id number] Jan 28, 2020 ELEUTERIO LIVINGSTON [facility] INSULIN,GLARGINE,HUMAN 100 UNIT/ML INJ,SOLOSTAR,3ML Disconti nued INJECT 45 UNITS SUBCUTANEOUSLY EVERY MORNING FOR BLOOD SUGAR CONTROL. ADMINISTER AT SAME TIME EACH DAY DIRECTED. DISCARD ANY OPEN CARTRIDGE AFTER 28 DAYS. Oct 23, 2019 [id number] Aug 30, 2019 ELEUTERIO LIVINGSTON [facility] LACTOBACILLUS ACIDOPHILUS TAB,CHEWABLE Non-VA CHEW ONE TABLET BY MOUTH ONCE A DAY Non-VA Documented by: MEGAN HAWK nted at: [facility] LANCET,SOFTCLIX Active USE LANCET 5 TIME S A DAY FOR TESTING BLOOD GLUCOSE DIRECTED 500 Dec 28, 2020 [id number] March 19, 2020 CRYSTALUSAELEUTERIO QUIGLEY [facility] LANCET,SOFTCLIX Discontinued USE LANCET 5 TIME S A DAY FOR TESTING BLOOD GLUCOSE DIRECTED 500 Jan 11, 2020 [id number] Sep 29, 2019 YAYA ITISELEUTERIO [facility] [place] [facility] MAGNESIUM OXIDE 400MG TAB Non-VA TAKE ONE TABLET BY MOUTH ONCE A DAY Non-VA Documented by: MEGAN HAWK nted at: [facility] METOPROLOL SUCCINATE 200MG TAB,SA TAKE O NE-HALF TABLET BY MOUTH EVERY EVENING FOR HEART/BLOOD PRESSURE. SWALLOW WHOLE, DO NOT CRUSH OR CHEW (TABLETS MAY BE CUT IN HALF). 45 March 18, 2020 [id number] Dec 28, 2019 STANISLAV HAMMER [facility] NEEDLE 22G 1.5IN USE NEEDLE FOR EVERY MONTH 1 Nov 12, 2019 [id number] Feb 07, 2019 ADELAIDA CLIFFORD [facility] [facility] NEEDLE,PEN 31G,5MM Discontinued USE NEEDLE SUBCUTANE OUSLY 5 TIMES A DAY - THIS IS A SINGLE USE NEEDLE AND SHOULD BE DISCARDED AFTER USE 500 Dec 21, 2019 [id number] Sep 28, 2019 ELEUTERIO LIVINGSTON [facility] POTASSIUM CHLORIDE 10MEQ TAB,SA Active TAKE TWO TABLETS BY MOUTH TWO TIMES A DAY FOR POTASSIUM SUPPLEMENTATIONTAKE WITH FOOD 360 Dec 12, 2020 [id number] Mar 02, 2020 [facility] POTASSIUM CHLORIDE 10MEQ TAB,SA Discontinued TAKE ONE TABLET BY MOUTH THREE TIMES A DAY WITH MEALS FOR POTASSIUM SUPPLEMENTATIONTAKE WITH FOOD 180 March 16, 2020 [id number] Nov 29, [address] [facility] [place] [facility] POTASSIUM CHLORIDE 10MEQ TAB,SA Discontinued TAKE ONE TABLET BY MOUTH THREE TIMES A DAY WITH MEALS FOR POTASSIUM SUPPLEMENTATIONTAKE WITH FOOD 180 May 26, 2019 [id number] Jan 24, 2019 [facility] [place] [facility] SYRINGE 2.5-3ML/NDL 25G 1IN Active USE 1 SYRINGE EVERY MONTH 3 Feb 21, 2021 [id number] March 20, 2020 [facility] SYRINGE 2.5-3ML/NDL 25G 1IN Discontinued USE 1 SYRINGE EVERY Thu 3 March 18, 2020 [id number] Dec 21, 2019 [facility] TESTOSTERONE CYPIONATE 200MG/ML INJ,1ML (IN OIL) Active INJECT 200 MG (1 ML) INTRAMUSCULARLY EVERY MONTH FOR HORMONE REPLACEMENT 1 May 18, 2020 [id number] April 06, 2020 ADELAIDA CLIFFORD [facility] [place] [facility] TESTOSTERONE CYPIONATE 200MG/ML INJ,1ML (IN OIL) Discontinue d INJECT 200 MG (1 ML) INTRAMUSCULARLY EVERY MONTH FOR HORMONE REPLACEMENT 1 March 25, 2020 [id number] Oct 25, 2019 ADELAIDA CLIFFORD [facility] TESTOSTERONE CYPIONATE 200MG/ML INJ,1ML (IN OIL) Discontinue d INJECT 200 MG (1 ML) INTRAMUSCULARLY EVERY MONTH FOR HORMONE REPLACEMENT Nov 06, 2019 [id number] Sep 25, 2019 ADELAIDA CLIFFORD [facility] [place] [facility] TESTOSTERONE CYPIONATE 200MG/ML INJ,1ML (IN OIL) Discontinue d INJECT 200 MG (1 ML) INTRAMUSCULARLY EVERY MONTH FOR HORMONE REPLACEMENT 1 May 14, 2019 [id number] Apr 10, 2019 ADELAIDA CLIFFORD [facility] TRAMADOL HCL 50MG TAB Active TAKE 1 TO 2 TABLET S BY MOUTH EVERY 6 HOURS NEEDED FOR PAIN 180 Jul 21, 2020 [id number] March 30, 2020 [facility] TRAMADOL HCL 50MG TAB Discontinued TAKE 1 TO 2 TABLET S BY MOUTH EVERY 6 HOURS NEEDED FOR PAIN 180 Jun 06, 2020 [id number] Jan 11, 2020 [facility] TRAMADOL HCL 50MG TAB Discontinued TAKE 1 TO 2 TABLET S BY MOUTH EVERY 6 HOURS NEEDED FOR PAIN 180 Jun 06, 2020 [id number] Dec 06, 2019 [facility] TRAMADOL HCL 50MG TAB Discontinued TAKE 1 TO 2 TABLET S BY MOUTH EVERY 6 HOURS NEEDED FOR PAIN 180 Dec 14, 2019 [id number] Nov 15, 2019 DANTE VALVERDE [facility] [place] [facility] TRAMADOL HCL 50MG TAB Discontinued TAKE 1 TO 2 TABLET S BY MOUTH EVERY 6 HOURS NEEDED FOR PAIN 180 Jul 06, 2019 [id number] May 26, 2019 NELLA GROVE [facility] [place] [facility] TRIAMCINOLONE ACETONIDE 0.5% CREAM,TOP Active A PPLY SPARINGLY TO AFFECTED AREA ONCE A DAY NEEDED FOR RASH 45 Jul 15, 2020 [id number] April 01 0 THOM CHAMBERS [facility] [place] [facility] TRIAMCINOLONE ACETONIDE 0.5% CREAM,TOP Discontinued A PPLY SPARINGLY TO AFFECTED AREA ONCE A DAY NEEDED FOR RASH 45 Oct 12, 2019 [id number] Jul THOM CHAMBERS [facility] Problems (Conditions): All historical and current Section Date Range: From patient's date of to the date document was create d. This section includes a list of Problems (Conditions) know n to [facility] for the patient. It includes both active and inacti ve problems (conditions). The data comes from all PA treatment facilities. Problem Status Problem Code Date of Onset Date of Resolution Comm ent(s) Provider Source Basal cell carcinoma of scalp Active [id number] THOM CHAMBERS [facility] Chronic back pain Active [id number] TERRIE CHAMBERS [facility] [place] Chronic kidney disease stage 3 Active [id number] THOM CHAMBERS [facility] Constipation Active [id number] THOM CHAMBERS [facility] [place] [facility] Diabetes mellitus Active [id number] THOM CHAMBERS [facility] [place] [facility] Diabetic neuropathy Active [id number] Neha CHAMBERS [facility] [place] [facility] Essential hypertension Active 17632286 THOM CHAMBERS [facility] [place] Hyperlipidemia Active 44819004 THOM CHAMBERS [facility] [place] [facility] Hypogonadism Active 51113952 THOM CHAMBERS [facility] [place] [facility] Sleep apnea Active [id number] THOM CHAMBERS [facility] [place] [facility] Radiology Reports: +/- 30 days of the encounter No Data Provided for This Section Pathology Reports: +/- 30 days of the encounter No Data Provided for This Section Encounter Notes: All associated encounter notes No Data Provided for This Section
--- OUTSIDE RECORDS SUMMARY | 2020-04-18 09:53 | XMS REPORT | Encounter Summary ---
Author [facility] Address [address] [place] [phone] Phone Unavailable Care Team Providers Care Geological Drafter Name Role Phone REYES THOM PCP Unavailable [...] [facility] MEDICARE ADVANTAGE [facility] ([facility]) Nov 09, 2017 [id number] [phone] SIMI COVARRUBIAS PATIENT [facility] ([facility]) MEDICARE ADVANTAGE [facility] ([facility]) Nov 09, 2017 [id number] [phone] SIMI COVARRUBIAS PATIENT AETNA [facility] ([facility]) MEDICARE ADVANTAGE [facility] ([facility]) Nov 09, [phone] [id number] SIMI COVARRUBIAS PATIENT Selected Encounter This section includes the information on record at MD for the Encounter. Date/Time Encounter Type Encounter Description Reason Provider Source Sep 23, 2019 11:00 AM Outpatient Encounter TELEPHONE PRIMARY CAR E ICD-10-CM E11.9 Type 2 diabetes mellitus without complications with Provider Comments: Diabetes mellitus (SCT [id number]) LYNDATRELEUTERIO ROJAS [facility] [place] IHE Encounter Template Text not used by [facility] Assessments - Encounter Diagnoses This section includes the primary and secondary diag noses documented for the Encounter. Date/Time Primary/Secondary Diagnosis Diagnosis Name Provider Source Sep 23, 2019 11:00 AM PRIMARY Type 2 diabetes mellitus w ithout complications VIVI LOUIS [facility] [place] Plan of Treatment: Future Appointments (+ 6 months) and Future Tests (+/- 45 day s) The Plan of Treatment section includes future care activities for the patient fr om all MD treatment facilities. This section includes future appointments and fu ture orders which are active, pending or scheduled. Future Appointments This section includes appointments that were scheduled t o occur 6 months from the date of the Encounter, up to a maximum of 20 appointme nts. The data comes from all MD treatment facilities. Appointment Date/Time Appointment Type Appointment Facili ty Name Oct 17, 2019 03:00 PM AMBULATORY - NONE [facility] [place] Oct 20, 2019 10:00 AM AMBULATORY - NONE [facility] Nov 10, 2019 12:00 PM AMBULATORY - MEDICINE [facility] Nov 16, 2019 02:00 PM AMBULATORY - SURGERY [facility] [place] [facility] Nov 16, 2019 03:00 PM AMBULATORY - NONE [facility] [place] [facility] Nov 17, 2019 10:00 AM AMBULATORY - NONE [facility] Dec 01, 2019 11:30 AM AMBULATORY - MEDICINE [facility] Dec 14, 2019 03:00 PM AMBULATORY - NONE [facility] [place] [facility] Dec 15, 2019 01:00 PM AMBULATORY - NONE [facility] Jan 12, 2020 10:00 AM AMBULATORY - NONE [facility] Jan 26, 2020 03:00 PM AMBULATORY - NONE [facility] [place] [facility] Feb 29, 2020 02:30 PM AMBULATORY - NONE [facility] [place] [facility] March 20, 2020 08:00 AM AMBULATORY - MEDICINE [facility] Surgical Procedures: All associated to the encounter No Data Provided for This Section Lab Results: +/- 30 days of the encounter This section includes the Chemistry and Hematology Lab R esults on record with MD for the patient. Radiology Reports and Pathology Report s are provided separately, in subsequent sections. Lab Results This section contains the Chemistry/Hematology Results anushka t were resulted 30 days before or 30 days after the date of the Encounter. Date/Time Source Result Type Result - Unit Interpretation Reference Range Comment Sep 15, 2019 11:[address] [facility] [place] [facility] BASIC METABOLIC PANEL Specimen Type: PLASMA No comment entered. *CREATININE 1.59 mg/dL H 0.7-1.3 UREA NITROGEN mg/dL 30 mg/dL H 9-25 GLUCOSE 151 mg/dL H 72-99 SODIUM 139 mEq/L 136-145 POTASSIUM 3.9 mEq/L 3.5-5.0 CALCIUM (mg/dL) 9.8 mg/dL 8.4-10.4 CHLORIDE 101 mEq/L 98-107 CO2 31 mEq/L 22-31 EGFR 42.9 Sep 15, 2019 11:[address] [facility] [place] [facility] HEMOGLOBIN A1C Specimen Type: BLOOD No comment entered. HEMOGLOBIN A1C 9.9 % H 4.0-6.0 Vital Signs: All taken on the encounter [...] Adverse Reactions (ADR s) on record with MD for the patient. The data comes from a ll MD treatment facilities. It does not list Allergies/ADRs that were removed or entered in error. Some allergies/ADRs may be reported in t Immunization section. Allergen Event Date Event Type Reaction(s) Severity Source LISINOPRIL Dec 01, 2017 Propensity to adverse reactions to drug (disorder) Renal impairment [facility] 15 METFORMIN Dec 01, 2017 Propensity to adverse reactions to drug (disorder) Renal impairment [facility] 15 Medications: VA dispensed (-15 months) and Non-VA Documented (Obtained Outside A) Section Date Range: 1) prescriptions processed by a VA pharmacy in the last 15 m [facility], and 2) all medications recorded in the MD medical record as "non-VA medic ations". Pharmacy terms refer to VA pharmacy's work on prescriptions. VA patient s are advised to take their medications as instructed by their health care team. The data comes from all MD treatment facilities. Glossary of Pharmacy Terms:Active = A prescription that can be filled at the local MD pharmacy.Active: On Hold = An active prescription that will not be filled until pharmacy resolves the issue.Active: Susp = An active prescription that is not scheduled to be filled yet.Clinic Order = A medication received during a visit to a MD clinic or emergency department (currently not available).Discontinued = A prescription stopped by a MD provider. It is no longer available to be filled. = A prescription which is too old to fill. This does not refer to the expiration date of the medication in the container. Non-VA = A medication that came from someplace other than a MD pharmacy. This may be a prescription from either the MD or other providers that was filled outside the MD. Or, it may be an over the [...] TIMES A DAY 400 Sep 12, 2020 [id number] Feb 29, 2020 [facility] ROSINA PLUS (GLUCOSE) TEST STRIP Discontinued USE 1 STRIP FOR TESTING FOUR TIMES A DAY 400 Sep 15, 2019 [id number] Jun 13, 2019 [facility] ALCOHOL [facility] Discontinued USE 1 PAD ON SKIN FOUR TIMES A DAY 40 0 Apr 25, 2020 [id number] Nov 29, 2019 [facility] [place] [facility] ALCOHOL PREP PAD Discontinued USE 1 PAD ON SKIN FOUR TIMES A DAY 40 0 Sep 15, 2019 [id number] Apr 18, 2019 [facility] ALLOP[facility] 100MG TAB Active TAKE ONE TABLET BY MOUTH ONCE A DAY FOR GOUT. TAKE WITH PLENTY OF WATER 90 Sep 23, 2020 [id number] Mar 05, [address] [facility] [place] [facility] ALLOPURINOL 100MG TAB Discontinued TAKE ONE TABLET BY MOUTH ONCE A DAY FOR GOUT. TAKE WITH PLENTY OF WATER 90 Dec 30, 2019 [id number] Sep 17, [address] [facility] [place] [facility] ALOGLIPTIN 12.5MG TAB Active TAKE ONE TABLET BY MOUTH O NCE A DAY FOR DIABETES 90 Sep 12, 2020 [id number] Mar 04, 2020 [facility]ER[facility] [place] [facility] ALOGLIPTIN 12.5MG TAB Discontinued TAKE ONE TABLET BY MOUTH ONCE A DAY FOR DIABETES 90 Dec 22, 2019 [id number] Jun 18, [address] [facility] [place] [facility] AMLODIPINE BESYLATE 10MG TAB Discontinued TAKE ONE TA BLET BY MOUTH EVERY MORNING FOR HEART/BLOOD PRESSURE 90 Jun 10, 2019 [id number] Feb 25, [address] [facility] [place] [facility] AMLODIPINE BESYLATE 10MG TAB TAKE ONE TA BLET BY MOUTH EVERY MORNING FOR HEART/BLOOD PRESSURE 90 Apr 12, 2020 [id number] Feb 10, 2020 SILVINA CHAMBERS [facility] ASPIRIN 81MG TAB,CHEWABLE Non-VA CHEW ONE TABLET BY MOUTH ONCE A DAY Non-VA Documented by: MEGAN HAWK nted at: [facility] [place] [facility] ATORVASTATIN CA 20MG TAB Active TAKE ONE TABLET BY MOUTH ONCE A DAY FOR CHOLESTEROL. REPORT ANY UNEXPLAINED MUSCLE PAIN OR WEAKNESS TO YOUR DOCTOR. 90 Jan 02, 2021 [id number] March 24, 2020 [facility] 15 ATORVASTATIN CA 40MG TAB Discontinued TAKE ONE-HALF T ABLET BY MOUTH AT BEDTIME FOR CHOLESTEROL. REPORT ANY UNEXPLAINED MUSCLE PAIN OR WEAKNESS TO YOUR DOCTOR. 45 Jul 15, 2020 [id number] Oct 14, 2019 [facility] [place] [facility] ATORVASTATIN CA 40MG TAB Discontinued TAKE ONE-HALF T ABLET BY MOUTH AT BEDTIME FOR CHOLESTEROL. REPORT ANY UNEXPLAINED MUSCLE PAIN OR WEAKNESS TO YOUR DOCTOR. 45 Oct 12, 2019 [id number] Jul 16, [address] [facility] [place] [facility] CALCIUM CARBONATE 500MG TAB,CHEWABLE Non-VA CHEW ONE TABLET BY MOUTH PRN Non-VA Documented by: THOM CHAMBERS nted at: [facility] CHLORTHALIDONE 25MG TAB Active TAKE ONE TABLET BY MOUTH ONCE A DAY 90 Jul 01, 2020 [id number] March 19, [address] [facility] [place] [facility] CHLORTHALIDONE 25MG TAB Discontinued TAKE ONE TABLET BY MOUTH ONCE A DAY 90 Jun 16, 2019 [id number] Apr 12, [address] [facility] [place] [facility] CHOLECALCIFEROL 1000UNT TAB Non-VA TAKE ONE TABLET BY MOUTH EVERY OTHER DAY Non-VA Docume nted by: MEGAN HAWK Docume nted at: [facility] [place] [facility] CYANOCOBALAMIN 1000MCG/ML INJ Active INJECT 100 0 MCG (1 ML) INTRAMUSCULARLY EVERY MONTH FOR B12 SUPPLEMENTATION. 3 Nov 03, 2020 [id number] Apr 23, 2020 [facility] [place] [facility] CYANOCOBALAMIN 1000MCG/ML INJ Discontinued INJECT 100 0 MCG (1 ML) INTRAMUSCULARLY EVERY MONTH FOR B12 SUPPLEMENTATION. 3 Nov 17 0 [id number] Aug 07, 2019 [facility] [place] [facility] DIPHENHYDRAMINE HCL 25MG CAP Non-VA TAKE 1 CAPSULE BY MOUTH PRN Non-VA Documented by: THOM CHAMBERS nted at: [facility] DOCUSATE NA 100MG CAP No n-VA TAKE 2 CAPSULES BY MOUTH ONCE A DAY Non-VA Documented by: THOM CHAMBERS Docsammi nted at: [facility] FISH OIL 1000MG (500MG DHA/EPA) CAP,ORAL Non-VA TAKE 1 CAPSULE BY MOUTH ONCE A DAY Non-VA Documented by: MEGAN HAWK Docume nted at: [facility] GABAPENTIN 100MG CAP Active TAKE 1 CAPSULE BY M OUTH EVERY MORNING AND TAKE 1 CAPSULE BY MOUTH AT NOON AND TAKE 2 CAPSULES BY MOUTH AT BEDTIME 360 Jul 06, 2020 [id number] March 31, 2020 ELEUTERIO LIVINGSTON [facility] [place] GLUCAGON 1MG/GABRIELLA INJ,EMERGENCY KIT INJEC T 1MG SUBCUTANEOUSLY NEEDED FOR SEVERE HYPOGLYCEMIA 1 Nov 30, 2019 [id number] Nov 03, [address] [facility] [place] [facility] INSULIN,ASPART,HUMAN 100U/ML,NOVOLOG,FLEXPEN,3ML Active: On Hold INJECT 20 UNITS SUBCUTANEOUSLY BEFORE BREAKFAST AND INJECT 20 UNITS BEFORE LUNCH AND INJECT 26 UNITS BEFORE SUPPER AND INJECT 24 UNITS SNACK FOR BLOOD SUGAR CONTROL. ADMINISTER 10 MINUTES BEFORE FOOD DIRECTED. REFRIGERATE UN-OPENED PENS. DISCARD CARTRIDGE 28 DAYS AFTER OPENING. PLUS CORRECTION Mar 01, 2021 [id number] [facility] [place] [facility] INSULIN,ASPART,HUMAN 100U/ML,NOVOLOG,FLEXPEN,3ML Discontinue d INJECT 20 UNITS SUBCUTANEOUSLY BEFORE BREAKFAST AND INJECT 20 UNITS BEFORE LUNCH AND INJECT 24 UNITS BEFORE SUPPER AND INJECT 24 UNITS SNACK FOR BLOOD SUGAR CONTROL. ADMINISTER 10 MINUTES BEFORE FOOD DIRECTED. REFRIGERATE UN-OPENED PENS. DISCARD CARTRIDGE 28 DAYS AFTER OPENING. PLUS CORRECTION 30 Jan 26, 2021 [id number] Jan 28, 2020 [facility] [place] [facility] INSULIN,ASPART,HUMAN 100U/ML,NOVOLOG,FLEXPEN,3ML Discontinue d INJECT 20 UNITS SUBCUTANEOUSLY BEFORE MEALS FOR BLOOD SUGAR CONTROL. ADMINISTER 10 MINUTES BEFORE FOOD DIRECTED. REFRIGERATE UN-OPENED PENS. DISCARD CARTRIDGE 28 DAYS AFTER OPENING. PLUS CORRECTION FOR BLOOD SUGAR CONTROL. ADMINISTER 10 MINUTES BEFORE FOOD DIRECTED. REFRIGERATE UN-OPENED PENS. DISCARD CARTRIDGE 28 DAYS AFTER OPENING. PLUS CORRECTION 30 Nov 16, 2020 [id number] Nov 16 [facility] [place] [facility] INSULIN,ASPART,HUMAN 100U/ML,NOVOLOG,FLEXPEN,3ML Discontinue d INJECT 15 UNITS SUBCUTANEOUSLY EVERY MORNING BEFORE MEAL AND INJECT 15 UNITS WITH LUNCH AND INJECT 15 UNITS WITH SUPPER AND INJECT 20 UNITS WITH SNACK FOR BLOOD SUGAR CONTROL. ADMINISTER 10 MINUTES BEFORE FOOD DIRECTED. REFRIGERATE UN-OPENED PENS. DISCARD CARTRIDGE 28 DAYS AFTER OPENING. Dec 22, 2019 5 [id number] Oct 12, 2019 [facility] [place] [facility] INSULIN,GLARGINE,HUMAN 100 UNIT/ML INJ,SOLOSTAR,3ML Active INJECT 50 UNITS SUBCUTANEOUSLY EVERY MORNING FOR BLOOD SUGAR CONTROL. ADMINISTER AT SAME TIME EACH DAY DIRECTED. DISCARD ANY OPEN CARTRIDGE AFTER 28 DAYS. Sep 23, 2020 [id number] Jan 28, 2020 [facility] [place] [facility] INSULIN,GLARGINE,HUMAN 100 UNIT/ML INJ,SOLOSTAR,3ML Disconti nued INJECT 45 UNITS SUBCUTANEOUSLY EVERY MORNING FOR BLOOD SUGAR CONTROL. ADMINISTER AT SAME TIME EACH DAY DIRECTED. DISCARD ANY OPEN CARTRIDGE AFTER 28 DAYS. Oct 23, 2019 [id number] Aug 30, 2019 [facility] [place] [facility] LACTOBACILLUS ACIDOPHILUS TAB,CHEWABLE Non-VA CHEW ONE TABLET BY MOUTH ONCE A DAY Non-VA Documented by: MEGAN HAWKume nted at: [facility] [place] [facility] LANCET,SOFTCLIX Active USE LANCET 5 TIME S A DAY FOR TESTING BLOOD GLUCOSE DIRECTED 500 Dec 28, 2020 [id number] March 19, 2020 CRYSTALUSAELEUTERIO QUIGLEY Laron [facility] [place] [facility] LANCET,SOFTCLIX Discontinued USE LANCET 5 TIME S A DAY FOR TESTING BLOOD GLUCOSE DIRECTED 500 Jan 11, 2020 [id number] Sep 29, 2019 CRYSTALUSA ITISELEUTERIO Laron [facility] [place] [facility] MAGNESIUM OXIDE 400MG TAB Non-VA TAKE ONE TABLET BY MOUTH ONCE A DAY Non-VA Documented by: MEGAN HAWK nted at: [facility] [place] [facility] METOPROLOL SUCCINATE 200MG TAB,SA TAKE O NE-HALF TABLET BY MOUTH EVERY EVENING FOR HEART/BLOOD PRESSURE. SWALLOW WHOLE, DO NOT CRUSH OR CHEW (TABLETS MAY BE CUT IN HALF). 45 March 18, 2020 [id number] Dec 28, 2019 STANISLAV HAMMER [facility] NEEDLE 22G 1.5IN USE NEEDLE FOR EVERY MONTH 1 Nov 12, 2019 [id number] Feb 07, 2019 [address]IDA [address]ORD [facility] [place] [facility] NEEDLE,PEN 31G,5MM Discontinued USE NEEDLE SUBCUTANE OUSLY 5 TIMES A DAY - THIS IS A SINGLE USE NEEDLE AND SHOULD BE DISCARDED AFTER USE 500 Dec 21, 2019 [id number] Sep 28, 2019 ELEUTERIO LIVINGSTON [facility] [place] [facility] POTASSIUM CHLORIDE 10MEQ TAB,SA Active TAKE TWO TABLETS BY MOUTH TWO TIMES A DAY FOR POTASSIUM SUPPLEMENTATIONTAKE WITH FOOD 360 Dec 12, 2020 [id number] Mar 02, 2020 YANELY CONDE [facility], [facility] 15 POTASSIUM CHLORIDE 10MEQ TAB,SA Discontinued TAKE ONE TABLET BY MOUTH THREE TIMES A DAY WITH MEALS FOR POTASSIUM SUPPLEMENTATIONTAKE WITH FOOD 180 March 16, 2020 [id number] Nov 29, 2019 ELETUERIO LIVINGSTON [facility] [place] POTASSIUM CHLORIDE 10MEQ TAB,SA Discontinued TAKE ONE TABLET BY MOUTH THREE TIMES A DAY WITH MEALS FOR POTASSIUM SUPPLEMENTATIONTAKE WITH FOOD 180 May 26, 2019 [id number] Jan 24, 2019 YANELY CONDE [facility] [place] SYRINGE 2.5-3ML/NDL 25G 1IN Active USE 1 SYRINGE EVERY MONTH 3 Feb 21, 2021 [id number] March 20, 2020 [facility] SYRINGE 2.5-3ML/NDL 25G 1IN Discontinued USE 1 SYRINGE EVERY Thu 3 March 18, 2020 [id number] Dec 21, 2019 [facility] TESTOSTERONE CYPIONATE 200MG/ML INJ,1ML (IN OIL) Active INJECT 200 MG (1 ML) INTRAMUSCULARLY EVERY MONTH FOR HORMONE REPLACEMENT 1 May 18, 2020 [id number] April 06, [address] [facility] [place] TESTOSTERONE CYPIONATE 200MG/ML INJ,1ML (IN OIL) Discontinue d INJECT 200 MG (1 ML) INTRAMUSCULARLY EVERY MONTH FOR HORMONE REPLACEMENT 1 March 25, 2020 [id number] Oct 25, [address]IDA [address] [facility] [place] [facility] TESTOSTERONE CYPIONATE 200MG/ML INJ,1ML (IN OIL) Discontinue d INJECT 200 MG (1 ML) INTRAMUSCULARLY EVERY MONTH FOR HORMONE REPLACEMENT 1 Nov 06, 2019 [id number] Sep 25, [address] [facility] [place] TESTOSTERONE CYPIONATE 200MG/ML INJ,1ML (IN OIL) Discontinue d INJECT 200 MG (1 ML) INTRAMUSCULARLY EVERY MONTH FOR HORMONE REPLACEMENT 1 May 14, 2019 [id number] Apr 10, 2019 [address]IDA [address]IFFORD [facility] [place] [facility] TRAMADOL HCL 50MG TAB Active TAKE 1 TO 2 TABLET S BY MOUTH EVERY 6 HOURS NEEDED FOR PAIN 180 Jul 21, 2020 [id number] March 30, 2020 [facility] TRAMADOL HCL 50MG TAB Discontinued TAKE 1 TO 2 TABLET S BY MOUTH EVERY 6 HOURS NEEDED FOR PAIN 180 Jun 06, 2020 [id number] Jan 11, 2020 [facility] 15 TRAMADOL HCL 50MG TAB Discontinued TAKE 1 TO 2 TABLET S BY MOUTH EVERY 6 HOURS NEEDED FOR PAIN 180 Jun 06, 2020 [id number] Dec 06, 2019 [facility] 15 TRAMADOL HCL 50MG TAB Discontinued TAKE 1 TO 2 TABLET S BY MOUTH EVERY 6 HOURS NEEDED FOR PAIN 180 Dec 14, 2019 [id number] Nov 15, [address] [facility] [place] TRAMADOL HCL 50MG TAB Discontinued TAKE 1 TO 2 TABLET S BY MOUTH EVERY 6 HOURS NEEDED FOR PAIN 180 Jul 06, 2019 [id number] May 26, [address] [facility] [place] TRIAMCINOLONE ACETONIDE 0.5% CREAM,TOP Active A PPLY SPARINGLY TO AFFECTED AREA ONCE A DAY NEEDED FOR RASH 45 Jul 15, 2020 [id number] April 01 [address] [facility] [place] TRIAMCINOLONE ACETONIDE 0.5% CREAM,TOP Discontinued A PPLY SPARINGLY TO AFFECTED AREA ONCE A DAY NEEDED FOR RASH 45 Oct 12, 2019 [id number] Jul THOM CHAMBERS [facility] [place] [facility] Problems (Conditions): All historical and current Section Date Range: From patient's date of to the date document was create d. This section includes a list of Problems (Conditions) know n to VA for the patient. It includes both active and inacti ve problems (conditions). The data comes from all MD treatment facilities. Problem Status Problem Code Date of Onset Date of Resolution Comm ent(s) Provider Source Basal cell carcinoma of scalp Active [id number] THOM CHAMBERS [facility] [place] Chronic back pain Active [id number] TERRIE CHAMBERS [facility] [place] [facility] Chronic kidney disease stage 3 Active [id number] REYES,DANA [facility] [place] [facility] Constipation Active [id number] THOM CHAMBERS [facility] [place] [facility] Diabetes mellitus Active [id number] THOM CHAMBERS [facility] [place] [facility] Diabetic neuropathy Active [id number] Neha CHAMBERS [facility] [place] [facility] Essential hypertension Active [id number] THOM CHAMBERS [facility] [place] [facility] Hyperlipidemia Active 10402686 THOM CHAMBERS [facility] [place] Hypogonadism Active 58613922 THOM CHAMBERS [facility] [place] Sleep apnea Active 70293211 THOM CHAMBERS [facility] [place] Radiology Reports: +/- 30 days of the encounter No Data Provided for This Section Pathology Reports: +/- 30 days of the encounter No Data Provided for This Section Encounter Notes: All associated encounter notes This section contains the clinical notes associated to the Encounter. Date/Time Encounter Note(s) Provider Source Oct 13, 2019 10:30 AM PHARMACY NOTE: LOCAL TITLE: EK-PHARMACY PRIMARY CARE STANDARD TITLE: PHARMACY NOTE DATE OF NOTE: OCT 13, 2019@10:30 ENTRY DATE: OCT 13, 2019@10:30:13 AUTHOR: REGGIE LIVINGSTON COSIGNER: URGENCY: STATUS: COMPLETED EK-PHARMACY PRIMARY CARE Has ADDENDA SIMI COVARRUBIAS is a 72 yo MALE contacted clinic via telephone. Team: TO-MICHAELA WELLER 1 *WH*; PCP: THOM CHAMBERS S: reports doing well, in NAD. Correctly confirms DM regimen w/ good adherence. Reports being under a alot of stress d/t being told he might have vascular issues and his doctor ordered ultrasounds on his legs which he had done yesterday. Reports he has not been doing well with his diet especially over the jodi. Continues to do his exercises daily though was not able to 3 times in past few weeks due to travelling. HPI: At last appt insulin glargine was increased. [place] notes also being managed by Dr. Grove, non-VA provider, recently approved thru [employer]. instructed to avoid co-management, thus plans to continue DM services with this handbook writer and other conditions will be deferred to Dr. Grove. DR. CONDE PHONE [phone]. Lifestyle: Physical Activity: walking/elliptica ~10-15 miles/day (2-3hrs/day) [...] moderate intensity Previously tried meds: metformin - hair tinter recommends against d/t hx of BRIGIDO with SCr 1.7 liraglutide - N/V Diabetes Complications: Retinopathy: last eye exam 05/04/19; (-) Gastropathy: denies bloating after meals, early satiety, GI complaints Nephropathy: microalbuminuria (+) 06/2019; Peripheral neuropathy: denies numbness, burning, tingling in hands/feet Foot Exam: 10/23/2017 (-)Abnormal BG Readings: Self-reports FBG ~110-230 HS 300-400s Hypoglycemia Episodes: Denies < 90 lately Blood pressure: 120-140's/60-70's PMH: Computerized Problem List is the source for the followin. Diabetes mellitus 2. Diabetic neuropathy 3. Essential hypertension 4. Hyperlipidemia 5. Sleep apnea 6. Constipation 7. Chronic back pain 8. Hypogonadism 9. Basal cell carcinoma of scalp O: Weight: 177.5 lb [80.7 kg] (09/22/2019 10:56) BMI: 30.1 Blood pressure: 138/62 (09/22/2019 10:56) Pulse: 62 (09/22/2019 10:56) Labs: Hgb A1c: Collection DT Spec A1C 09/15/2019 11:44 BLOOD 9.9 H 03/24/2019 11:08 BLOOD 8.1 H 12/09/2018 11:43 BLOOD 8.9 H Lipids: CHOL: 176 (09/23/18 08:55) 151 (03/24/19 11:08) HDL: 50 (09/23/18 08:55) 44 (03/24/19 11:08) LDL-TYLER: 102.8 (09/23/18 08:55) 85.2 (03/24/19 11:08) TGL: 116 (09/23/18 08:55) 109 (03/24/19 11:08) Metabolic Panel: Na: 139 mEq/L (09/15/2019 11:44) K: 3.9 mEq/L (09/15/2019 11:44) Cl: 101 mEq/L (09/15/2019 11:44) C02: 31 mEq/L (09/15/2019 11:44) Gluc: 151 mg/dL H (09/15/2019 11:44) BUN: 30 mg/dL H (09/15/2019 11:44) Creat: 1.59 mg/dL H (09/15/2019 11:44) EGFR: 42.9 (09/15/2019 11:44) Liver Function Test: ALB: 3.9 (07/07/19 09:11) [...] NO -CKD (renal doctor will not allow) --Self-reported FBG variable depending o n exercises and diet and slightly improved since last appt --HS BG continue to remain elevated --OVerall BG have continued to be uncont rolled for past several months d/t non- comliance with diet and stress Based on this information will, --continue insulin glargine 50 units --CHANGE insulin aspart 15 units TID AC meals + CF (do exceed 25 Units) --CHANGE insulin aspart 20 units w/ snack + CF (do not exceed 24 Units) --ADD CORRECTION FACTOR BG 70-99: -2 UNITS BG 100-149: NORMAL DOSE BG 151-199: +1 UNITS BG 200-249: +2 UNITS BG 250-299: +3 UNITS BG 300-349: +4 UNITS BG >350: +5 UNITS --Continue aloglipitin 12.5mg daily --Add a1c, bmp to labs on 11/03/19 2. HTN Goal <150/90 met: yes -managed by non-VA 3. Refills: none 4. Return to TO-PHARM PACT 5 on or aroun d ( Nov 16, 2019 ) for a total of 1 appointment(s) Prerequisites: No Labs 11/16/2019 @1pm Learner: Patient Readiness to Learn: Accepting Barriers to Learning Noted: No Barriers Preferred Learning Style: Lecture, Printed Material Preferred language for discussing health care: [place] Time spent with pt: 30 min PBM PharmD Pharmacotherapy Rem V11: PHARMACIST INTERVENTIONS: TYPE 2 DIABETES MELLITUS Medication Intervention(s) Adjust dose or frequency of current medication due to other reason Nonpharmacologic intervention made /noa/ ELEUTERIO LIVINGSTON Clinical Collar Separator Signed: 10/13/2019 10:42 10/13/2019 ADDENDUM STATUS: COMPLETED Vivi, Durga cancell appt for 10/17/19 and reschedule for face appt on 11/16/2019 1pm no labs /noa/ ELEUTERIO LIVINGSTON Clinical Collar Separator Signed: 10/13/2019 10:43 Receipt Acknowledged By: 10/13/2019 10:58 /noa/ [facility] ELEUTERIO MUIR [facility] Sep 23, 2019 11:10 AM PHARMACY NOTE: LOCAL TITLE: EK-PHARMACY PRIMARY CARE STANDARD TITLE: PHARMACY NOTE DATE OF NOTE: SEP 23, 2019@11:10 ENTRY DATE: SEP 23, 2019@11:10:10 AUTHOR: REGGIE LIVINGSTON COSIGNER: URGENCY: STATUS: COMPLETED MARCISIMI DENNY is a 72 yo MALE contacted via telephone for CDM clinic for DM f/u. Team: TO-MICHAELA WELLER 1 *WH*; PCP: THOM CHAMBERS S: [place]ton reports doing well, in NAD. Correctly confirms DM regimen w/ good adherence. Reports being under a alot of stress and having less will power lately w/ his diet. Reports eating larger portions and snacks at night. Reports still exercising ~15 miles/day on ellipitical. Reports Dr. Conde stated he could no be on empagliflozin or others in the same class but can be on either glipizide or januvia as these medication are okay w/ CKD. Discussed how Southington is already on insulin aspart and alogliptin voiced understanding. HPI: At last appt discussed starting empagliflozin w/ and hair tinter. [facility] office reported they do not encourage the use of this medication. Southington notes also being managed by Dr. Grove, non-[facility] provider, recently approved thru [facility]. [place]ton instructed to avoid co-management, thus plans to continue DM services with this handbook writer and other conditions will be deferred to Dr. Grove. DR. CONDE PHONE [phone]. Lifestyle: Physical Activity: walking/elliptica ~10-15 miles/day (2-3hrs/day) [...] good 1. DIABETES Current Regimen: -insulin glargine 45 units QPM -insulin aspart 15 units TID AC meals + 20 units w/ snack -alogliptin 12.5mg ASA: yes [place]/ARB: no (CKD) Statin: moderate intensity Previously tried meds: metformin - hair tinter recommends against d/t hx of BRIGIDO with SCr 1.7 liraglutide - N/V Diabetes Complications: Retinopathy: last eye exam 05/04/19; (-) Gastropathy: denies bloating after meals, early satiety, GI complaints Nephropathy: microalbuminuria (+) 06/2019; Peripheral neuropathy: denies numbness, burning, tingling in hands/feet Foot Exam: 10/23/2017 (-)Abnormal BG Readings: Self-reports BG FBG 150 or higher Variable other readings, noon readings are best and increased at bedtime after snack Hypoglycemia Episodes: Denies < 90 lately Blood pressure: 120-140's/60-70's PMH: Computerized Problem List is the source for the followin. Diabetes mellitus 2. Diabetic neuropathy 3. Essential hypertension 4. Hyperlipidemia 5. Sleep apnea 6. Constipation 7. Chronic back pain 8. Hypogonadism 9. Basal cell carcinoma of scalp O: Weight: 177.5 lb [80.7 kg] (09/22/2019 10:56) BMI: 30.1 Blood pressure: 138/62 (09/22/2019 10:56) Pulse: 62 (09/22/2019 10:56) Labs: Hgb A1c: Collection DT Spec A1C 09/15/2019 11:44 BLOOD 9.9 H 03/24/2019 11:08 BLOOD 8.1 H 12/09/2018 11:43 BLOOD 8.9 H Lipids: CHOL: 176 (09/23/18 08:55) 151 (03/24/19 11:08) HDL: 50 (09/23/18 08:55) 44 (03/24/19 11:08) LDL-TYLER: 102.8 (09/23/18 08:55) 85.2 (03/24/19 11:08) TGL: 116 (09/23/18 08:55) 109 (03/24/19 11:08) Metabolic Panel: Na: 139 mEq/L (09/15/2019 11:44) K: 3.9 mEq/L (09/15/2019 11:44) Cl: 101 mEq/L (09/15/2019 11:44) C02: 31 mEq/L (09/15/2019 11:44) Gluc: 151 mg/dL H (09/15/2019 11:44) BUN: 30 mg/dL H (09/15/2019 11:44) Creat: 1.59 mg/dL H (09/15/2019 11:44) EGFR: 42.9 (09/15/2019 11:44) Liver Function Test: ALB: 3.9 (07/07/19 09:11) [...] NO -CKD (renal doctor will not allow) A1c and self-reported BG have increased from previous due to 's non- compliance w/ his diet caused from stress. [place]ton willing to get back on diet though this may take some time. BMP - Scr increased from previous, BG elevated, otherwise unremarkable will monitor Based on this information will, --INCREASE insulin glargine TO 50 units --Continue insulin aspart 15 units TID AC meals --continue insulin aspart 20 units w/ snack --Continue aloglipitin 12.5mg daily --Reports non-va labs ordered for 10/14/19 2. HTN Goal <150/90 met: yes -managed by non-VA 3. Refills: none 4. RTC: Return to TO-PHARM PACT 5 PHONE on or around ( Oct 17, 2019 ) for a total of 1 appointment(s) 10/17 3PM Learner: Patient Readiness to Learn: Accepting Barriers to Learning Noted: No Barriers Preferred Learning Style: Lecture, Printed Material Preferred language for discussing health care: [place] Time spent with pt: 30 min PBM PharmD Pharmacotherapy Rem V11: PHARMACIST INTERVENTIONS: TYPE 2 DIABETES MELLITUS Medication Intervention(s) Adjust dose or frequency of current medication due to other reason Nonpharmacologic intervention made P:Test Results Notification: The following tests results along with appropriate management plan were discussed with patient at this clinic visit: Lab results It is documented that patient verbalized understanding of results and/or actions required? Yes /noa/ ELEUTERIO LIVINGSTON Clinical Collar Separator Signed: 09/23/2019 15:03 ELEUTERIO LIVINGSTON [facility]
--- OUTSIDE RECORDS SUMMARY | 2020-04-18 09:53 | XMS REPORT ---
Author Author Department [facility] SIMI palacio Organization Department of [facility] Address [address] [place] [phone] Phone Unavailable Care Team Providers Care Pipe Coverer Helper Name Role Phone THOM CHAMBERS PCP Unavailable [...] FREEDOM MED REP (R) MEDICARE ADVANTAGE MCR ([facility]) Nov 09, 2017 [id number] [phone] SIMI COVARRUBIAS PATIENT ADVANTRA FREEDOM MED REP (WNR) MEDICARE ADVANTAGE MCR ([facility]) Nov 09, 2017 [id number] [phone] SIMI COVARRUBIAS PATIENT AETNA MCR (WN) MEDICARE ADVANTAGE MCR ([facility]) Nov 09, [id number] SIMI COVARRUBIAS PATIENT Selected Encounter This section includes the information on record at ID for the Encounter. Date/Time Encounter Type Encounter Description Reason Provider Source Oct 20, 2019 10:00 AM Outpatient Encounter PRIMARY CARE/MEDICINE ICD-10-CM E29.1 Testicular hypofunction with Provider Comments: Testicular Hypofunction THOM CHAMBERS [facility] IHE Encounter Template Text not used by ID Assessments - Encounter Diagnoses This section includes the primary and secondary diag noses documented for the Encounter. Date/Time Primary/Secondary Diagnosis Diagnosis Name Provider Source Oct 20, 2019 11:53 AM PRIMARY Testicular hypofunction Ro DAVID [facility] Oct 20, 2019 11:53 AM SECONDARY Encounter for immunization SUSIE KILLIAN Wilde [facility] Plan of Treatment: Future Appointments (+ 6 months) and Future Tests (+/- 45 day s) The Plan of Treatment section includes future care activities for the patient fr om all ID treatment facilities. This section includes future appointments and fu ture orders which are active, pending or scheduled. Future Appointments This section includes appointments that were scheduled t o occur 6 months from the date of the Encounter, up to a maximum of 20 appointme nts. The data comes from all ID treatment facilities. Appointment Date/Time Appointment Type Appointment Facili ty Name Nov 10, 2019 12:00 PM AMBULATORY - MEDICINE [facility] Nov 16, 2019 02:00 PM AMBULATORY - SURGERY [facility] Nov 16, 2019 03:00 PM AMBULATORY - NONE [facility] Nov 17, 2019 10:00 AM AMBULATORY - NONE [facility] Dec 01, 2019 11:30 AM AMBULATORY - MEDICINE [facility] Dec 14, 2019 03:00 PM AMBULATORY - NONE [facility] Dec 15, 2019 01:00 PM AMBULATORY - NONE [facility] Jan 12, 2020 10:00 AM AMBULATORY - NONE [facility] Jan 26, 2020 03:00 PM AMBULATORY - NONE [facility] Feb 29, 2020 02:30 PM AMBULATORY - NONE [facility] March 20, 2020 08:00 AM AMBULATORY - MEDICINE [facility] March 28, 2020 11:30 AM AMBULATORY - NONE [facility] Apr 19, 2020 11:00 AM AMBULATORY - NONE [facility] Surgical Procedures: All associated to the encounter No Data Provided for This Section Lab Results: +/- 30 days of the encounter This section includes the Chemistry and Hematology Lab R esults on record with [facility] for the patient. Radiology Reports and Pathology Report s are provided separately, in subsequent sections. Lab Results This section contains the Chemistry/Hematology Results anushka t were resulted 30 days before or 30 days after the date of the Encounter. Date/Time Source Result Type Result - Unit Interpretation Reference Range Comment Nov 10, 2019 11:39 AM [facility] HEMOGLOBIN A1C Specimen Type: BLOOD No comment entered. HEMOGLOBIN A1C 10.6 % H 4.0-6.0 Nov 10, 2019 11:39 AM [facility] [employer] BASIC METABOLIC PANEL Specimen Type: PLASMA No comment entered. *CREATININE 1.60 mg/dL H 0.7-1.3 UREA NITROGEN mg/dL 24 mg/dL 9-25 GLUCOSE 226 mg/dL H 72-99 SODIUM 140 mEq/L 136-145 POTASSIUM 3.9 mEq/L 3.5-5.0 CALCIUM (mg/dL) 9.3 mg/dL 8.4-10.4 CHLORIDE 101 mEq/L 98-107 CO2 29 mEq/L 22-31 EGFR 42.6 Nov 10, 2019 11:39 AM [facility] [employer] TESTOSTERONE ( ,WI,EK) Specimen Type: SERUM No comment entered. TESTOSTERONE (,SD,EK) 371 ng/dL 221-87 1 Nov 10, 2019 11:39 AM [facility] [employer] CBC & DIFF Specimen Type: BLOOD No [...] in Height Weight Body Mass Index Source Oct 20, 2019 11:42 AM 0 [facility] Oct 20, 2019 11:05 AM 97.4 F 50 /min 142/66 mm[Hg] 18 /min 98 % 0 177 lb 30 [facility] Immunizations: All administered on the encounter date This section contains immunizations associated to the Encounter. Immunization Series Date Issued Reaction Comments ZOSTER RECOMBINANT 1 Oct 20, 2019 Social History: Smoking Status (Most current) and Tobacco Use (All prior to enco unter date) This section includes the most current, and the historical, smoking and tobacco- related health factors from the ID facility where the Encounter took place. Current Smoking Status This section includes the most current smoking, or tobacco -related health factor, from the ID facility where the Encounter took place. Date/Time Current Smoking Status Comment Facility Nov 03, 2018 07:59 AM VA-TOBACCO QUIT 15 YRS OR MORE [facility] Tobacco Use History This section includes a history of the smoking, or tobacco -related health factors, that were collected on or before the date of the Encoun ter. The data comes from the ID facility where the Encounter took place. Date/Time Smoking Status/Tobacco Use Comment [facility] it Nov 03, 2018 07:59 AM [...] the patient. The data comes from a [facility] treatment facilities. It does not list Allergies/ADRs that were removed or entered in error. Some allergies/ADRs may be reported in t he Immunization section. Allergen Event Date Event Type Reaction(s) Severity Source RADHAPRIL Dec 01, 2017 Propensity to adverse reactions to drug (disorder) Renal impairment [facility] [place] [facility] METFORMIN Dec 01, 2017 Propensity to adverse reactions to drug (disorder) Renal impairment [facility] 15 Medications: VA dispensed (-15 months) and Non-VA Documented (Obtained Outside V A) Section Date Range: 1) prescriptions processed by a VA pharmacy in the last 15 m [facility], and 2) all medications recorded in the ID medical record as "non-VA medic ations". Pharmacy terms refer to ID pharmacy's work on prescriptions. VA patient s are advised to take their medications as instructed by their health care team. The data comes from all ID treatment facilities. Glossary of Pharmacy Terms:Active = A prescription that can be filled at the local ID pharmacy.Active: On Hold = An active prescription that will not be filled until pharmacy resolves the issue.Active: Susp = An active prescription that is not scheduled to be filled yet.Clinic Order = A medication received during a visit to a ID clinic or emergency department (currently not available).Discontinued [...] may be a prescription from either the ID or other providers that was filled outside the ID. Or, it may be an over the [...] TIMES A DAY 400 Sep 12, 2020 [id number] Feb 29, 2020 REGGIE LIVINGSTON [facility] ACCU-CHEK ROSINA PLUS (GLUCOSE) TEST STRIP Discontinued USE 1 STRIP FOR TESTING FOUR TIMES A DAY 400 Sep 15, 2019 [id number] Jun 13, 2019 ELEUTERIO MAURO [facility] ALCOHOL PREP PAD Discontinued USE 1 PAD ON SKIN FOUR TIMES A DAY 40 0 Apr 25, 2020 [id number] Nov 29, 2019 BALTRUSAELEUTERIO QUIGLEY GRUVER Charly S [facility] [place] [facility] ALCOHOL PREP PAD Discontinued USE 1 PAD ON SKIN FOUR TIMES A DAY 40 0 Sep 15, 2019 [id number] Apr 18, 2019 BALELEUTERIO KONG [facility] ALLOPURINOL 100MG TAB Active TAKE ONE TABLET BY MOUTH ONCE A DAY FOR GOUT. TAKE WITH PLENTY OF WATER 90 Sep 23, 2020 [id number] Mar 05, 2020 SILVINA CHAMBERS [facility] ALLOPURINOL 100MG TAB Discontinued TAKE ONE TABLET BY MOUTH ONCE A DAY FOR GOUT. TAKE WITH PLENTY OF WATER 90 Dec 30, 2019 [id number] Sep 17, 2019 THOM SOLIS [facility] ALOGLIPTIN 12.5MG TAB Active TAKE ONE TABLET BY MOUTH O NCE A DAY FOR DIABETES 90 Sep 12, 2020 [id number] Mar 04, 2020 ELEUTERIO LIVINGSTON [facility] [place] [facility] ALOGLIPTIN 12.5MG TAB Discontinued TAKE ONE TABLET BY MOUTH ONCE A DAY FOR DIABETES 90 Dec 22, 2019 [id number] Jun 18, 2019 ELEUTERIO LIVINGSTON [facility] AMLODIPINE BESYLATE 10MG TAB Discontinued TAKE ONE TA BLET BY MOUTH EVERY MORNING FOR HEART/BLOOD PRESSURE 90 Jun 10, 2019 [id number] Feb 25, 2019 MONIKA RIVERA [facility] AMLODIPINE BESYLATE 10MG TAB TAKE ONE TA BLET BY MOUTH EVERY MORNING FOR HEART/BLOOD PRESSURE 90 Apr 12, 2020 [id number] Feb 10, 2020 SILVINA CHAMBERS DEPARTMENT [facility] [...] TO YOUR DOCTOR. 90 Jan 02, 2021 [id number] March 24, 2020 NELLA GROVE [facility] [place] ATORVASTATIN CA 40MG TAB Discontinued TAKE ONE-HALF T ABLET BY MOUTH AT BEDTIME FOR CHOLESTEROL. REPORT ANY UNEXPLAINED MUSCLE PAIN OR WEAKNESS TO YOUR DOCTOR. 45 Jul 15, 2020 [id number] Oct 14, 2019 REYESTHOM [facility] ATORVASTATIN CA 40MG TAB Discontinued TAKE ONE-HALF T ABLET BY MOUTH AT BEDTIME FOR CHOLESTEROL. REPORT ANY UNEXPLAINED MUSCLE PAIN OR WEAKNESS TO YOUR DOCTOR. 45 Oct 12, 2019 [id number] Jul 16, 2019 REYESTHOM [facility] CALCIUM CARBONATE 500MG TAB,CHEWABLE Non-VA CHEW ONE TABLET BY MOUTH PRN Non-VA Documented by: THOM CHAMBERS nted at: [facility] CHLORTHALIDONE 25MG TAB Active TAKE ONE TABLET BY MOUTH ONCE A DAY 90 Jul 01, 2020 [id number] March 19, 2020 MONIKA HAMMER [facility] CHLORTHALIDONE 25MG TAB Discontinued TAKE ONE TABLET BY MOUTH ONCE A DAY 90 Jun 16, 2019 [id number] Apr 12, 2019 MONIKA HAMMER [facility] CHOLECALCIFEROL 1000UNT TAB Non-VA TAKE ONE TABLET BY MOUTH EVERY OTHER DAY Non-VA Docume nted by: MEGAN HAWK nted at: [facility] CYANOCOBALAMIN 1000MCG/ML INJ Active INJECT 100 0 MCG (1 ML) INTRAMUSCULARLY EVERY MONTH FOR B12 SUPPLEMENTATION. 3 Nov 03, 2020 [id number] Apr 23, 2020 THOM CHAMBERS [facility] CYANOCOBALAMIN 1000MCG/ML INJ Discontinued INJECT 100 0 MCG (1 ML) INTRAMUSCULARLY EVERY MONTH FOR B12 SUPPLEMENTATION. 3 Nov 17 0 [id number] Aug 07, 2019 [facility]OM [facility]AM[facility]ERS [facility] [...] Documented by: MEGAN HAWK Docume nted at: [facility] GABAPENTIN 100MG CAP Active TAKE 1 CAPSULE BY M OUTH EVERY MORNING AND TAKE 1 CAPSULE BY MOUTH AT NOON AND TAKE 2 CAPSULES BY MOUTH AT BEDTIME 360 Jul 06, 2020 [id number] March 31, 2020 ELEUTERIO LIVINGSTON [facility] [place] [facility] GLUCAGON 1MG/GABRIELLA INJ,EMERGENCY KIT INJEC T 1MG SUBCUTANEOUSLY NEEDED FOR SEVERE HYPOGLYCEMIA 1 Nov 30, 2019 [id number] Nov 03, 2019 THOM CHAMBERS [facility] INSULIN,ASPART,HUMAN 100U/ML,NOVOLOG,FLEXPEN,3ML Active: On Hold INJECT 20 UNITS SUBCUTANEOUSLY BEFORE BREAKFAST AND INJECT 20 UNITS BEFORE LUNCH AND INJECT 26 UNITS BEFORE SUPPER AND INJECT 24 UNITS SNACK FOR BLOOD SUGAR CONTROL. ADMINISTER 10 MINUTES BEFORE FOOD DIRECTED. REFRIGERATE UN-OPENED PENS. DISCARD CARTRIDGE 28 DAYS AFTER OPENING. PLUS CORRECTION Mar 01, 2021 [id number] ELEUTERIO LIVINGSTON [facility] INSULIN,ASPART,HUMAN 100U/ML,NOVOLOG,FLEXPEN,3ML Discontinue d INJECT 20 UNITS SUBCUTANEOUSLY BEFORE BREAKFAST AND INJECT 20 UNITS BEFORE LUNCH AND INJECT 24 UNITS BEFORE SUPPER AND INJECT 24 UNITS SNACK FOR BLOOD SUGAR CONTROL. ADMINISTER 10 MINUTES BEFORE FOOD DIRECTED. REFRIGERATE UN-OPENED PENS. DISCARD CARTRIDGE 28 DAYS AFTER OPENING. PLUS CORRECTION Jan 26, 2021 [id number] Jan 28, 2020 ELEUTERIO LIVINGSTON [facility] [...] AFTER OPENING. PLUS CORRECTION Nov 16, 2020 [id number] Nov 16 20 ELEUTERIO LIVINGSTON [facility] INSULIN,ASPART,HUMAN 100U/ML,NOVOLOG,FLEXPEN,3ML Discontinue d INJECT 15 UNITS SUBCUTANEOUSLY EVERY MORNING BEFORE MEAL AND INJECT 15 UNITS WITH LUNCH AND INJECT 15 UNITS WITH SUPPER AND INJECT 20 UNITS WITH SNACK FOR BLOOD SUGAR CONTROL. ADMINISTER 10 MINUTES BEFORE FOOD DIRECTED. REFRIGERATE UN-OPENED PENS. DISCARD CARTRIDGE 28 DAYS AFTER OPENING. Dec 22, 2019 5 [id number] Oct 12, 2019 ELEUTERIO LIVINGSTON [facility] INSULIN,GLARGINE,HUMAN 100 UNIT/ML INJ,SOLOSTAR,3ML Active INJECT 50 UNITS SUBCUTANEOUSLY EVERY MORNING FOR BLOOD SUGAR CONTROL. ADMINISTER AT SAME TIME EACH DAY DIRECTED. DISCARD ANY OPEN CARTRIDGE AFTER 28 DAYS. Sep 23, 2020 [id number] Jan 28, 2020 ELEUTERIO LIVINGSTON [facility] INSULIN,GLARGINE,HUMAN 100 UNIT/ML INJ,SOLOSTAR,3ML Disconti nued INJECT 45 UNITS SUBCUTANEOUSLY EVERY MORNING FOR BLOOD SUGAR CONTROL. ADMINISTER AT SAME TIME EACH DAY DIRECTED. DISCARD ANY OPEN CARTRIDGE AFTER 28 DAYS. Oct 23, 2019 [id number] Aug 30, 2019 ELEUTERIO LIVINGSTON [facility] LACTOBACILLUS ACIDOPHILUS TAB,CHEWABLE Non-VA CHEW ONE TABLET BY MOUTH ONCE A DAY Non-VA Documented by: MEGAN HAWK nted at: [facility] LANCET,SOFTCLIX Active USE LANCET 5 TIME S A DAY FOR TESTING BLOOD GLUCOSE DIRECTED 500 Dec 28, 2020 [id number] March 19, 2020 ELEUTERIO LIVINGSTON [facility] LANCET,SOFTCLIX Discontinued USE LANCET 5 TIME S A DAY FOR TESTING BLOOD GLUCOSE DIRECTED 500 Jan 11, 2020 [id number] Sep 29, 2019 [facility] MAGNESIUM OXIDE 400MG TAB Non-VA TAKE ONE TABLET BY MOUTH ONCE A DAY Non-VA Documented by: MEGAN HAWK nted at: [facility] METOPROLOL SUCCINATE 200MG TAB,SA TAKE O NE-HALF TABLET BY MOUTH EVERY EVENING FOR HEART/BLOOD PRESSURE. SWALLOW WHOLE, DO NOT CRUSH OR CHEW (TABLETS MAY BE CUT IN HALF). 45 March 18, 2020 [id number] Dec 28, 2019 STANISLAV HAMMER [facility] NEEDLE 22G 1.5IN USE NEEDLE FOR EVERY MONTH Nov 12, 2019 [id number] Feb 07, 2019 ADELAIDA CLIFFORD [facility] NEEDLE,PEN 31G,5MM Discontinued USE NEEDLE SUBCUTANE OUSLY 5 TIMES A DAY - THIS IS A SINGLE USE NEEDLE AND SHOULD BE DISCARDED AFTER USE 500 Dec 21, 2019 [id number] Sep 28, 2019 BALTRUSAITIS,ELEUTERIO L [facility] [place] [facility] POTASSIUM CHLORIDE 10MEQ TAB,SA Active TAKE TWO TABLETS BY MOUTH TWO TIMES A DAY FOR POTASSIUM SUPPLEMENTATIONTAKE WITH FOOD 360 Dec 12, 2020 [id number] Mar 02, 2020 [facility] POTASSIUM CHLORIDE 10MEQ TAB,SA Discontinued TAKE ONE TABLET BY MOUTH THREE TIMES A DAY WITH MEALS FOR POTASSIUM SUPPLEMENTATIONTAKE WITH FOOD 180 March 16, 2020 [id number] Nov 29, 2019 BALTRUSAITIS,[facility] [place] [facility] POTASSIUM CHLORIDE 10MEQ TAB,SA Discontinued TAKE ONE TABLET BY MOUTH THREE TIMES A DAY WITH MEALS FOR POTASSIUM SUPPLEMENTATIONTAKE WITH FOOD 180 May 26, 2019 [id number] Jan 24, 2019 [facility] [place] [facility] SYRINGE 2.5-3ML/NDL 25G 1IN Active USE 1 SYRINGE EVERY MONTH 3 Feb 21, 2021 [id number] March 20, 2020 [facility] SYRINGE 2.5-3ML/NDL 25G 1IN Discontinued USE 1 SYRINGE EVERY Thu 3 March 18, 2020 [id number] Dec 21, 2019 [facility] TESTOSTERONE CYPIONATE 200MG/ML INJ,1ML (IN OIL) Active INJECT 200 MG (1 ML) INTRAMUSCULARLY EVERY MONTH FOR HORMONE REPLACEMENT 1 May 18, 2020 [id number] April 06, 2020 ADELAIDA CLIFFORD [facility] TESTOSTERONE CYPIONATE 200MG/ML INJ,1ML (IN OIL) Discontinue d INJECT 200 MG (1 ML) INTRAMUSCULARLY EVERY MONTH FOR HORMONE REPLACEMENT March 25, 2020 [id number] Oct 25, 2019 ADELAIDA CLIFFORD [facility] TESTOSTERONE CYPIONATE 200MG/ML INJ,1ML (IN OIL) Discontinue d INJECT 200 MG (1 ML) INTRAMUSCULARLY EVERY MONTH FOR HORMONE REPLACEMENT Nov 06, 2019 [id number] Sep 25, 2019 ADELAIDA CLIFFORD [facility] TESTOSTERONE CYPIONATE 200MG/ML INJ,1ML (IN OIL) Discontinue d INJECT 200 MG (1 ML) INTRAMUSCULARLY EVERY MONTH FOR HORMONE REPLACEMENT May 14, 2019 [id number] Apr 10, 2019 ADELAIDA CLIFFORD [facility] TRAMADOL HCL 50MG TAB Active TAKE 1 TO 2 TABLET S BY MOUTH EVERY 6 HOURS NEEDED FOR PAIN 180 Jul 21, 2020 [id number] March 30, 2020 [facility]A [facility] TRAMADOL HCL 50MG TAB Discontinued TAKE 1 TO 2 TABLET S BY MOUTH EVERY 6 HOURS NEEDED FOR PAIN 180 Jun 06, 2020 [id number] Jan 11, 2020 ROSSY GROVE [facility] TRAMADOL HCL 50MG TAB Discontinued TAKE 1 TO 2 TABLET S BY MOUTH EVERY 6 HOURS NEEDED FOR PAIN 180 Jun 06, 2020 [id number] Dec 06, 2019 ROSSY [facility] 15 TRAMADOL HCL 50MG TAB Discontinued TAKE 1 TO 2 TABLET S BY MOUTH EVERY 6 HOURS NEEDED FOR PAIN 180 Dec 14, 2019 [id number] Nov 15, 2019 DANTE VALVERDE [facility] [place] [facility] TRAMADOL HCL 50MG TAB Discontinued TAKE 1 TO 2 TABLET S BY MOUTH EVERY 6 HOURS NEEDED FOR PAIN 180 Jul 06, 2019 [id number] May 26, 2019 ROSSY GROVE [facility] [place] [facility] TRIAMCINOLONE ACETONIDE 0.5% CREAM,TOP Active A PPLY SPARINGLY TO AFFECTED AREA ONCE A DAY NEEDED FOR RASH 45 Jul 15, 2020 [id number] April 01 0 THOM CHAMBERS [facility] TRIAMCINOLONE ACETONIDE 0.5% CREAM,TOP Discontinued A PPLY SPARINGLY TO AFFECTED AREA ONCE A DAY NEEDED FOR RASH 45 Oct 12, 2019 [id number] Jul THOM CHAMBERS [facility] Problems (Conditions): All historical and current Section Date Range: From patient's date of to the date document was create d. This section includes a list of Problems (Conditions) know n to ID for the patient. It includes both active and inacti ve problems (conditions). The data comes from all ID treatment facilities. Problem Status Problem Code Date of Onset Date of Resolution Comm ent(s) Provider Source Basal cell carcinoma of scalp Active [id number] THOM CHAMBERS [facility] Chronic back pain Active [id number] TERRIE CHAMBERS [facility] [facility] Chronic kidney disease stage 3 Active [id number] THOM CHAMBERS [facility] [facility] Constipation Active [id number] THOM CHAMBERS [facility] Diabetes mellitus Active [id number] THOM CHAMBERS [facility] [facility] Diabetic neuropathy Active [id number] Neha CHAMBERS [facility] [place] [facility] Essential hypertension Active [id number] THOM CHAMBERS [facility] [facility] Hyperlipidemia Active [id number] THOM CHAMBERS EA [facility] [place] [facility] Hypogonadism Active [id number] THOM CHAMBERS [facility] [facility] Sleep apnea Active [id number] THOM CHAMBERS JORDYN [facility] [place] [facility] Radiology Reports: +/- 30 days of the encounter No Data Provided for This Section Pathology Reports: +/- 30 days of the encounter No Data Provided for This Section Encounter Notes: All associated encounter notes This section contains the clinical notes associated to the Encounter. Date/Time Encounter Note(s) Provider Source Oct 20, 2019 11:41 AM NURSING OUTPATIENT NOTE: [facility] TITLE: -NURSING CLINIC CHECK-IN STANDARD TITLE: NURSING OUTPATIENT NOTE DATE OF NOTE: OCT 20, 2019@11:41 ENTRY DATE: OCT 20, 2019@11:41:52 AUTHOR: DARIO DUNCAN COSIGNER: URGENCY: STATUS: COMPLETED PRIMARY REASON FOR VISIT TODAY: [place] testosterone & #1 Shingrix PATIENT'S GOAL/MISSION FOR THEIR HEALTH: be healthy ALLERGIES/ADR: METFORMIN, LISINOPRIL VITALS: DATE/TIME TEMP PULSE RESP BP PAIN WEIGHT PUL OX 10/20/19 @ 1105 97.4 50 18 142/66 0 177 98 REPRODUCTIVE HISTORY: Concerns regardng sexual/reproductive health: None MEDICATION RECONCILIATION: Copy of current medication list on file provided for patient. Instructed to compare with all medications they are currently taking, and to review /discuss discrepancies with provider. LEARNING ASSESSMENT: Patient's preferred language for discussing health care is: Slovak Today's learning assessment regarding patient's readiness to learn. Patient reads well. Barriers to Learning: Has no barriers to learning. Preferred Method of Learning: Reading Listening Seeing / Videos Demonstration Return Demonstration Hands On/Doing Education provided as per documentation below: SCREENING FOR PAIN STATUS: Patient reported pain level as 0 (10/20/2019 11:05) on 0 to 10 scale. * Today's [...] (RZV) 0.5 ml IM in Left deltoid. 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 OTHER OBSERVATION/INTERVENTION: [place] here for Monthly Testosterone injection. Pt in clinic today for: Testosterone injection Pt purchased injection medication from ID hospital. Patient identity verified using 2 forms of ID: Name and Medication given: Testosterone 200 mg (1 ml) Order Verified:05/08/19 Route: IM Location: LEFT GM Mfg: [employer] Lot#: [id number] Exp: 02/2021 Dx: hypogonadism Initiated: Received locally until 01-07-19, then from the ID. Pt rock injection w/o difficulty. RTC for monthly Testosterone inj Nov 17/ DARIO DUNCAN LPN Signed: 10/20/2019 11:54 DARIO DUNCAN [facility]
--- OUTSIDE RECORDS SUMMARY | 2020-04-18 09:54 | XMS REPORT | Encounter Summary ---
Author Author Department of [facility] SIMI palacio Organization Department of [facility] Address [address] [place] [phone] Phone Unavailable Care Team Providers Care Assembler Engine Name Role Phone THOM CHAMBERS PCP Unavailable [...] [facility]) Nov 09, 2017 [id number] [phone] SIMI COVARRUBIAS PATIENT [facility] (WNR) MEDICARE ADVANTAGE M[facility] ([employer] [facility]) Nov 09, 2017 [id number] [phone] SIMI COVARRUBIAS PATIENT [facility] ([employer] [facility]) MEDICARE ADVANTAGE MCR ([employer] [facility]) Nov 09, [phone] [id number] SIMI COVARRUBIAS PATIENT Selected Encounter This section includes the information on record at [place] for the Encounter. Date/Time Encounter Type Encounter Description Reason Provider Source Sep 23, 2019 11:00 AM Outpatient Encounter ADMIN PAT ACTIVTIES ([place] NCT) [facility] [place] [facility] Encounter Template Text not used by VA Assessments - Encounter Diagnoses No Data Provided for This Section Plan of Treatment: Future Appointments (+ 6 months) and Future Tests (+/- 45 day s) The Plan of Treatment section includes future care activities for the patient fr om all [place] treatment facilities. This section includes future appointments and fu ture orders which are active, pending or scheduled. Future Appointments This section includes appointments that were scheduled t o occur 6 months from the date of the Encounter, up to a maximum of 20 appointme nts. The data comes from all [place] treatment facilities. Appointment Date/Time Appointment Type Appointment Facili ty Name Oct 17, 2019 03:00 PM AMBULATORY - NONE [facility] [place] [facility] Oct 20, 2019 10:00 AM [facility]ONE [facility] Nov 10, 2019 12:00 PM [facility] Nov 16, 2019 02:00 PM AMBULATORY - SURGERY [facility] [place] [facility] Nov 16, 2019 03:00 PM AMBULATORY - NONE [facility] [place] [facility] Nov 17, 2019 10:00 AM [facility]UL[facility]ORY - NONE [facility] Dec 01, 2019 11:30 AM [facility] Dec 14, 2019 03:00 PM AMBULATORY - NONE [facility] [place] [facility] Dec 15, 2019 01:00 PM AMBULATORY - NONE [facility] Jan 12, 2020 10:00 AM AMBULATORY - NONE [facility] Jan 26, 2020 03:00 PM AMBULATORY - NONE [facility] [place] [facility] Feb 29, 2020 02:30 PM AMBULATORY - NONE [facility] [place] [facility] March 20, 2020 08:00 AM [facility]ORY - [facility]IC[facility] Surgical Procedures: All associated to the encounter [...] Range Comment Sep 15, 2019 11:44 AM [facility] [place] [facility] BASIC METABOLIC PANEL Specimen Type: PLASMA No comment entered. *CREATININE 1.59 mg/dL H 0.7-1.3 UREA NITROGEN mg/dL 30 mg/dL H 9-25 GLUCOSE 151 mg/dL H 72-99 SODIUM 139 mEq/L 136-145 POTASSIUM 3.9 mEq/L 3.5-5.0 CALCIUM (mg/dL) 9.8 mg/dL 8.4-10.4 CHLORIDE 101 mEq/L 98-107 CO2 31 mEq/L 22-31 EGFR 42.9 Sep 15, 2019 11:44 AM [facility] HEMOGLOBIN A1C Specimen Type: BLOOD No [...] patient. The data comes from a ll [place] treatment facilities. It does not list Allergies/ADRs that were removed or entered in error. Some allergies/ADRs may be reported in t Immunization section. Allergen Event Date Event Type Reaction(s) Severity Source LISINOPRIL Dec 01, 2017 Propensity to adverse reactions to drug (disorder) Renal impairment [facility] 15 METFORMIN Dec 01, 2017 Propensity to adverse reactions to drug (disorder) Renal impairment [facility] 15 Medications: VA dispensed (-15 months) and Non-VA Documented (Obtained Outside V A) Section Date Range: 1) prescriptions processed by a [facility] pharmacy [facility] the [facility], and 2) all medications recorded in the [place] medical record as "non-VA medic ations". Pharmacy terms refer to HI pharmacy's work on prescriptions. VA patient s are advised to take their medications as instructed by their health care team. The data comes from all [place] treatment facilities. Glossary of Pharmacy Terms:Active = A prescription that can be filled at the local [place] pharmacy.Active: On Hold = An active prescription that will not be filled until pharmacy resolves the issue.Active: Susp = An active prescription that is not scheduled to be filled yet.Clinic Order = A medication received during a visit to a [place] clinic or emergency department (currently not available).Discontinued = A prescription stopped by a VA provider. It is no longer available to be filled. = A prescription which is too old to fill. This does not refer to the expiration date of the medication in the container. Non-VA = A medication that came from someplace other than a [place] pharmacy. This may be a prescription from either the [place] or other providers that was filled outside the [place]. Or, it may be an over the [...] TIMES A DAY 400 Sep 12, 2020 [id number] Feb 29, 2020 YARADUNDEE Laron [facility] ACCU-CHEK ROSINA PLUS (GLUCOSE) TEST STRIP Discontinued USE 1 STRIP FOR TESTING FOUR TIMES A DAY 400 Sep 15, 2019 [id number] Jun 13, 2019 POONAM MICHELELEUTERIO Laron [facility] ALCOHOL PREP PAD Discontinued USE 1 PAD ON SKIN FOUR TIMES A DAY 40 0 Apr 25, 2020 [id number] Nov 29, 2019 BALELEUTERIO KONG [facility] [place] [facility] ALCOHOL PREP PAD Discontinued USE 1 PAD ON SKIN FOUR TIMES A DAY 40 0 Sep 15, 2019 [id number] Apr 18, 2019 ELEUTERIO LIVINGSTON [facility] ALLOPURINOL 100MG TAB Active TAKE ONE TABLET BY MOUTH ONCE A DAY FOR GOUT. TAKE WITH PLENTY OF WATER 90 Sep 23, 2020 [id number] Mar 05, 2020 SILVINA CHAMBERS [facility] [place] [facility] ALLOPURINOL 100MG TAB Discontinued TAKE ONE TABLET BY MOUTH ONCE A DAY FOR GOUT. TAKE WITH PLENTY OF WATER 90 Dec 30, 2019 [id number] Sep 17, 2019 THOM SHARPE [facility] [place] [facility] ALOGLIPTIN 12.5MG TAB Active TAKE ONE TABLET BY MOUTH O NCE A DAY FOR DIABETES 90 Sep 12, 2020 [id number] Mar 04, 2020 ELEUTERIO LIVINGSTON [facility] [place] [facility] ALOGLIPTIN 12.5MG TAB Discontinued TAKE ONE TABLET BY MOUTH ONCE A DAY FOR DIABETES 90 Dec 22, 2019 [id number] Jun 18, 2019 ELEUTERIO LIVINGSTON [facility] [place] [facility] AMLODIPINE BESYLATE 10MG TAB Discontinued TAKE ONE TA BLET BY MOUTH EVERY MORNING FOR HEART/BLOOD PRESSURE 90 Jun 10, 2019 [id number] Feb 25, 2019 MONIKA HAMMER [facility] [place] [facility] AMLODIPINE BESYLATE 10MG TAB TAKE ONE TA BLET BY MOUTH EVERY MORNING FOR HEART/BLOOD PRESSURE 90 Apr 12, 2020 [id number] Feb 10, 2020 SILVINA CHAMBERS [facility] ASPIRIN 81MG TAB,CHEWABLE Non-VA CHEW ONE TABLET BY MOUTH ONCE A DAY Non-VA Documented by: MEGAN HAWK nted at: [facility] ATORVASTATIN CA 20MG TAB Active TAKE ONE TABLET BY MOUTH ONCE A DAY FOR CHOLESTEROL. REPORT ANY UNEXPLAINED MUSCLE PAIN OR WEAKNESS TO YOUR DOCTOR. 90 Jan 02, 2021 [id number] March 24, 2020 NELLA GROVE [facility] 15 ATORVASTATIN CA 40MG TAB Discontinued TAKE ONE-HALF T ABLET BY MOUTH AT BEDTIME FOR CHOLESTEROL. REPORT ANY UNEXPLAINED MUSCLE PAIN OR WEAKNESS TO YOUR DOCTOR. 45 Jul 15, 2020 [id number] Oct 14, 2019 REYESTHOM [facility] [place] [facility] ATORVASTATIN CA 40MG TAB Discontinued TAKE ONE-HALF T ABLET BY MOUTH AT BEDTIME FOR CHOLESTEROL. REPORT ANY UNEXPLAINED MUSCLE PAIN OR WEAKNESS TO YOUR DOCTOR. 45 Oct 12, 2019 [id number] Jul 16, 2019 REYESTHOM [facility] [place] [facility] CALCIUM CARBONATE 500MG TAB,CHEWABLE Non-VA CHEW ONE TABLET BY MOUTH PRN Non-VA Documented by: THOM CHAMBERS Docume nted at: [facility] CHLORTHALIDONE 25MG TAB Active TAKE ONE TABLET BY MOUTH ONCE A DAY 90 Jul 01, 2020 [id number] March 19, 2020 MONIKA HAMMER [facility] [place] [facility] CHLORTHALIDONE 25MG TAB Discontinued TAKE ONE TABLET BY MOUTH ONCE A DAY 90 Jun 16, 2019 [id number] Apr 12, 2019 MONIKA HAMMER [facility] [place] [facility] CHOLECALCIFEROL 1000UNT TAB Non-VA TAKE ONE TABLET BY MOUTH EVERY OTHER DAY Non-VA Docume nted by: MEGAN HAWK nted at: [facility] [place] CYANOCOBALAMIN 1000MCG/ML INJ Active INJECT 100 0 MCG (1 ML) INTRAMUSCULARLY EVERY MONTH FOR B12 SUPPLEMENTATION. 3 Nov 03, 2020 [id number] Apr 23, 2020 [facility] [place] [facility] CYANOCOBALAMIN 1000MCG/ML INJ Discontinued INJECT 100 0 MCG (1 ML) INTRAMUSCULARLY EVERY MONTH FOR B12 SUPPLEMENTATION. 3 Nov 17 0 [id number] Aug 07, 2019 [facility] [place] [facility] DIPHENHYDRAMINE HCL 25MG CAP Non-VA TAKE 1 CAPSULE BY MOUTH PRN Non-VA Documented by: THOM CHAMBERS Docume nted at: [facility] DOCUSATE NA 100MG CAP No n-VA TAKE 2 CAPSULES BY MOUTH ONCE A DAY Non-VA Documented by: THOM CHAMBERS Docsammi nted at: [facility] FISH OIL 1000MG (500MG DHA/EPA) CAP,ORAL Non-VA TAKE 1 CAPSULE BY MOUTH ONCE A DAY Non-VA Documented by: MEGAN HAWK Docume nted at: [facility] GABAPENTIN 100MG CAP Active TAKE 1 CAPSULE BY M OUTH EVERY MORNING AND TAKE 1 CAPSULE BY MOUTH AT NOON AND TAKE 2 CAPSULES BY MOUTH AT BEDTIME 360 Jul 06, 2020 [id number] March 31, 2020 ELEUTERIO LIVINGSTON [facility] [place] [facility] GLUCAGON 1MG/GABRIELLA INJ,EMERGENCY KIT INJEC T 1MG SUBCUTANEOUSLY NEEDED FOR SEVERE HYPOGLYCEMIA 1 Nov 30, 2019 [id number] Nov 03, 2019 [facility] [place] [facility] INSULIN,ASPART,HUMAN 100U/ML,NOVOLOG,FLEXPEN,3ML Active: On Hold INJECT 20 UNITS SUBCUTANEOUSLY BEFORE BREAKFAST AND INJECT 20 UNITS BEFORE LUNCH AND INJECT 26 UNITS BEFORE SUPPER AND INJECT 24 UNITS SNACK FOR BLOOD SUGAR CONTROL. ADMINISTER 10 MINUTES BEFORE FOOD DIRECTED. REFRIGERATE UN-OPENED PENS. DISCARD CARTRIDGE 28 DAYS AFTER OPENING. PLUS CORRECTION Mar 01, 2021 [id number] ELEUTERIO LIVINGSTON [facility] [place] INSULIN,ASPART,HUMAN 100U/ML,NOVOLOG,FLEXPEN,3ML Discontinue d INJECT 20 UNITS SUBCUTANEOUSLY BEFORE BREAKFAST AND INJECT 20 UNITS BEFORE LUNCH AND INJECT 24 UNITS BEFORE SUPPER AND INJECT 24 UNITS SNACK FOR BLOOD SUGAR CONTROL. ADMINISTER 10 MINUTES BEFORE FOOD DIRECTED. REFRIGERATE UN-OPENED PENS. DISCARD CARTRIDGE 28 DAYS AFTER OPENING. PLUS CORRECTION 30 Jan 26, 2021 [id number] Jan 28, 2020 ELEUTERIO LIVINGSTON [facility] [place] [facility] INSULIN,ASPART,HUMAN 100U/ML,NOVOLOG,FLEXPEN,3ML Discontinue d INJECT 20 UNITS SUBCUTANEOUSLY BEFORE MEALS FOR BLOOD SUGAR CONTROL. ADMINISTER 10 MINUTES BEFORE FOOD DIRECTED. REFRIGERATE UN-OPENED PENS. DISCARD CARTRIDGE 28 DAYS AFTER OPENING. PLUS CORRECTION FOR BLOOD SUGAR CONTROL. ADMINISTER 10 MINUTES BEFORE FOOD DIRECTED. REFRIGERATE UN-OPENED PENS. DISCARD CARTRIDGE 28 DAYS AFTER OPENING. PLUS CORRECTION Nov 16, 2020 [id number] Nov 16 YARAELEUTERIO Laron [facility] [place] [facility] INSULIN,ASPART,HUMAN 100U/ML,NOVOLOG,FLEXPEN,3ML Discontinue d INJECT 15 UNITS SUBCUTANEOUSLY EVERY MORNING BEFORE MEAL AND INJECT 15 UNITS WITH LUNCH AND INJECT 15 UNITS WITH SUPPER AND INJECT 20 UNITS WITH SNACK FOR BLOOD SUGAR CONTROL. ADMINISTER 10 MINUTES BEFORE FOOD DIRECTED. REFRIGERATE UN-OPENED PENS. DISCARD CARTRIDGE 28 DAYS AFTER OPENING. Dec 22, 2019 [id number] Oct 12, 2019 ELEUTERIO LIVINGSTON [facility] [place] [facility] INSULIN,GLARGINE,HUMAN 100 UNIT/ML INJ,SOLOSTAR,3ML Active INJECT 50 UNITS SUBCUTANEOUSLY EVERY MORNING FOR BLOOD SUGAR CONTROL. ADMINISTER AT SAME TIME EACH DAY DIRECTED. DISCARD ANY OPEN CARTRIDGE AFTER 28 DAYS. Sep 23, 2020 [id number] Jan 28, 2020 ELEUTERIO LIVINGSTON [facility] [place] INSULIN,GLARGINE,HUMAN 100 UNIT/ML INJ,SOLOSTAR,3ML Disconti nued INJECT 45 UNITS SUBCUTANEOUSLY EVERY MORNING FOR BLOOD SUGAR CONTROL. ADMINISTER AT SAME TIME EACH DAY DIRECTED. DISCARD ANY OPEN CARTRIDGE AFTER 28 DAYS. Oct 23, 2019 [id number] Aug 30, 2019 YARATEXAS [facility] [place] LACTOBACILLUS ACIDOPHILUS TAB,CHEWABLE Non-VA CHEW ONE TABLET BY MOUTH ONCE A DAY Non-VA Documented by: MEGAN HAWK nted at: [facility] LANCET,SOFTCLIX Active USE LANCET 5 TIME S A DAY FOR TESTING BLOOD GLUCOSE DIRECTED 500 Dec 28, 2020 [id number] March 19, 2020 ELEUTERIO LIVINGSTON [facility] [place] [facility] LANCET,SOFTCLIX Discontinued USE LANCET 5 TIME S A DAY FOR TESTING BLOOD GLUCOSE DIRECTED 500 Jan 11, 2020 [id number] Sep 29, 2019 ELEUTERIO PATEL [facility] [place] [facility] MAGNESIUM OXIDE 400MG TAB Non-VA TAKE ONE TABLET BY MOUTH ONCE A DAY Non-VA Documented by: MEGAN HAWK nted at: [facility] METOPROLOL SUCCINATE 200MG TAB,SA TAKE O NE-HALF TABLET BY MOUTH EVERY EVENING FOR HEART/BLOOD PRESSURE. SWALLOW WHOLE, DO NOT CRUSH OR CHEW (TABLETS MAY BE CUT IN HALF). 45 March 18, 2020 [id number] Dec 28, 2019 STANISLAV HAMMER [facility] NEEDLE 22G 1.5IN USE NEEDLE FOR EVERY MONTH 1 Nov 12, 2019 [id number] Feb 07, 2019 ADELAIDA CLIFFORD [facility] [place] [facility] NEEDLE,PEN 31G,5MM Discontinued USE NEEDLE SUBCUTANE OUSLY 5 TIMES A DAY - THIS IS A SINGLE USE NEEDLE AND SHOULD BE DISCARDED AFTER USE 500 Dec 21, 2019 [id number] Sep 28, 2019 ELEUTERIO LIVINGSTON [facility] [place] POTASSIUM CHLORIDE 10MEQ TAB,SA Active TAKE TWO TABLETS BY MOUTH TWO TIMES A DAY FOR POTASSIUM SUPPLEMENTATIONTAKE WITH FOOD 360 Dec 12, 2020 [id number] Mar 02, 2020 [facility] POTASSIUM CHLORIDE 10MEQ TAB,SA Discontinued TAKE ONE TABLET BY MOUTH THREE TIMES A DAY WITH MEALS FOR POTASSIUM SUPPLEMENTATIONTAKE WITH FOOD 180 March 16, 2020 [id number] Nov 29, 2019 ELEUTERIO LIVINGSTON [facility] [place] [facility] POTASSIUM CHLORIDE 10MEQ TAB,SA Discontinued TAKE ONE TABLET BY MOUTH THREE TIMES A DAY WITH MEALS FOR POTASSIUM SUPPLEMENTATIONTAKE WITH FOOD 180 May 26, 2019 [id number] Jan 24, 2019 [facility] [place] [facility] SYRINGE 2.5-3ML/NDL 25G 1IN Active USE 1 SYRINGE EVERY MONTH 3 Feb 21, 2021 [id number] March 20, 2020 THOM CHAMBERS [facility] SYRINGE 2.5-3ML/NDL 25G 1IN Discontinued USE 1 SYRINGE EVERY Thu 3 March 18, 2020 [id number] Dec 21, 2019 REYESTHOM GREGORY [facility] TESTOSTERONE CYPIONATE 200MG/ML INJ,1ML (IN OIL) Active INJECT 200 MG (1 ML) INTRAMUSCULARLY EVERY MONTH FOR HORMONE REPLACEMENT 1 May 18, 2020 [id number] April 06, 2020 ADELAIDA CLIFFORD [facility] [place] [facility] TESTOSTERONE CYPIONATE 200MG/ML INJ,1ML (IN OIL) Discontinue d INJECT 200 MG (1 ML) INTRAMUSCULARLY EVERY MONTH FOR HORMONE REPLACEMENT March 25, 2020 [id number] Oct 25, 2019 ADELAIDA CLIFFORD [facility] [place] [facility] TESTOSTERONE CYPIONATE 200MG/ML INJ,1ML (IN OIL) Discontinue d INJECT 200 MG (1 ML) INTRAMUSCULARLY EVERY MONTH FOR HORMONE REPLACEMENT Nov 06, 2019 [id number] Sep 25, 2019 ADELAIDA CLIFFORD [facility] [place] [facility] TESTOSTERONE CYPIONATE 200MG/ML INJ,1ML (IN OIL) Discontinue d INJECT 200 MG (1 ML) INTRAMUSCULARLY EVERY MONTH FOR HORMONE REPLACEMENT 1 May 14, 2019 [id number] Apr 10, 2019 ADELAIDA CLIFFORD [facility] [place] [facility] TRAMADOL HCL 50MG TAB Active TAKE 1 TO 2 TABLET S BY MOUTH EVERY 6 HOURS NEEDED FOR PAIN 180 Jul 21, 2020 [id number] March 30, 2020 [facility] TRAMADOL HCL 50MG TAB Discontinued TAKE 1 TO 2 TABLET S BY MOUTH EVERY 6 HOURS NEEDED FOR PAIN 180 Jun 06, 2020 [id number] Jan 11, 2020 [facility] TRAMADOL HCL 50MG TAB Discontinued TAKE 1 TO 2 TABLET S BY MOUTH EVERY 6 HOURS NEEDED FOR PAIN 180 Jun 06, 2020 [id number] Dec 06, 2019 [facility] TRAMADOL HCL 50MG TAB Discontinued TAKE 1 TO 2 TABLET S BY MOUTH EVERY 6 HOURS NEEDED FOR PAIN 180 Dec 14, 2019 [id number] Nov 15, 2019 DANTE VALVERDE [facility] [place] [facility] TRAMADOL HCL 50MG TAB Discontinued TAKE 1 TO 2 TABLET S BY MOUTH EVERY 6 HOURS NEEDED FOR PAIN 180 Jul 06, 2019 [id number] May 26, 2019 [facility] [place] [facility] TRIAMCINOLONE ACETONIDE 0.5% CREAM,TOP Active A PPLY SPARINGLY TO AFFECTED AREA ONCE A DAY NEEDED FOR RASH 45 Jul 15, 2020 [id number] April 01 0 THOM CHAMBERS [facility] [place] [facility] TRIAMCINOLONE ACETONIDE 0.5% CREAM,TOP Discontinued A PPLY SPARINGLY TO AFFECTED AREA ONCE A DAY NEEDED FOR RASH 45 Oct 12, 2019 [id number] Jul THOM CHAMBERS [facility] [place] [facility] Problems (Conditions): All historical and current Section Date Range: From patient's date of to the date document was create d. This section includes a list of Problems (Conditions) know n to [facility] for the patient. It includes both active and inacti ve problems (conditions). The data comes from all [place] treatment facilities. Problem Status Problem Code Date of Onset Date of Resolution Comm ent(s) Provider Source Basal cell carcinoma of scalp Active [id number] THOM CHAMBERS [facility] [place] [facility] Chronic back pain Active [id number] TERRIE CHAMBERS [facility] [place] [facility] Chronic kidney disease stage 3 Active [id number] THOM CHAMBERS [facility] [place] [facility] Constipation Active [id number] THOM CHAMBERS [facility] [place] [facility] Diabetes mellitus Active [id number] REYES,DANA [facility] [place] [facility] Diabetic neuropathy Active [id number] Neha CHAMBERS [facility] [place] [facility] Essential hypertension Active [id number] THOM CHAMBERS [facility] [place] [facility] Hyperlipidemia Active [id number] THOM CHAMBERS [facility] [place] [facility] Hypogonadism Active [id number] REYES,DANA [facility] [place] [facility] Sleep apnea Active [id number] [facility] [place] [facility] Radiology Reports: +/- 30 days of the encounter No Data Provided for This Section Pathology Reports: +/- 30 days of the encounter No Data Provided for This Section Encounter Notes: All associated encounter notes This section contains the clinical notes associated to the Encounter. Date/Time Encounter Note(s) Provider Source Sep 23, 2019 11:34 AM PHARMACY NOTE: LOCAL TITLE: -PHARMACY REFILL STANDARD TITLE: PHARMACY NOTE DATE OF NOTE: SEP 23, 2019@11:34 ENTRY DATE: SEP 23, 2019@11:34:21 AUTHOR: REGGIE LIVINGSTON EXP COSIGNER: URGENCY: STATUS: COMPLETED Patient requesting renewal on the following medication; forwarding to PCP for consideration: Drug Name: Order Text: ALLOPURINOL TAB 100MG TAKE ONE TABLET BY MOUTH ONCE A DAY FOR GOUT. TAKE WITH PLENTY OF WATER Quantity: 90 Refills: 3 If appropriate, please renew Rx and process for mail out. Thank you. /noa/ ELEUTERIO LIVINGSTON Clinical Dispatcher [employer]inery Signed: 09/23/2019 11:35 Receipt Acknowledged By: 09/23/2019 12:12 /noa/ ELEUTERIO MCKEON [facility]
--- OUTSIDE RECORDS SUMMARY | 2020-04-18 09:54 | XMS REPORT | Encounter Summary ---
Author Author Department of [facility] SIMI palacio Organization Department of [facility] Address [address] [place] [phone] Phone Unavailable Care Team Providers Care Corset Maker Name Role Phone THOM CHAMBERS PCP Unavailable [...] [facility] [facility] (R) MEDICARE ADVANTAGE [facility] ([facility]) Nov 09, 2017 [id number] [phone] SIMI COVARRUBIAS PATIENT [employer] [facility] [facility] RE[facility] (WNR) MEDICARE [facility] (R) Nov 09, 2017 [id number] [phone] SIMI COVARRUBIAS PATIENT [employer] MCR (WNR) MEDICARE ADVANTAGE MCR (R) Nov 09, 2019 [id number] SIMI COVARRUBIAS PATIENT Selected Encounter This section includes the information on record at [place] for the Encounter. Date/Time Encounter Type Encounter Description Reason Provider Source Sep 22, 2019 10:00 AM OFFICE/OUTPATIENT VISIT EST PRIMARY CARE/M EDICINE ICD-10-CM R86.1 Abn lev hormones in specimens from male genital organs with Provider Comments: Hypogonadism (SCT [id number]) THOM CHAMBERS [facility] IHE Encounter Template Text not used by [place] Assessments - Encounter Diagnoses This section includes the primary and secondary diag noses documented for the Encounter. Date/Time Primary/Secondary Diagnosis Diagnosis Name Provider Source Sep 22, 2019 01:14 PM PRIMARY Abn lev hormones i n specimens from male genital organs KILLIAN DAVID [facility] Plan of Treatment: Future Appointments (+ 6 months) and Future Tests (+/- 45 day s) The Plan of Treatment section includes future care activities for the patient fr om all [place] treatment facilities. This section includes future appointments and fu ture orders which are active, pending or scheduled. Future Appointments This section includes appointments that were scheduled t o occur 6 months from the date of the Encounter, up to a maximum of 20 appointme nts. The data comes from all [place] treatment facilities. Appointment Date/Time Appointment Type Appointment Facili ty Name Sep 23, 2019 11:00 AM AMBULATORY - NONE [facility] [place] Oct 17, 2019 03:00 PM AMBULATORY - NONE [facility] [place] [facility] Oct 20, 2019 10:00 AM AMBULATORY - NONE [facility] Nov 10, 2019 12:00 PM AMBULATORY - MEDICINE [facility] Nov 16, 2019 02:00 PM [facility]ATORY - [facility] [place] [facility] Nov 16, 2019 03:00 PM AMBULATORY - NONE [facility] [place] [facility] Nov 17, 2019 10:00 AM AMBULATORY - NONE [facility] Dec 01, 2019 11:30 AM AMBULATORY - MEDICINE [facility] Dec 14, 2019 03:00 PM AMBULATORY - NONE [facility] [place] [facility] Dec 15, 2019 01:00 PM AMBULATORY - NONE [facility] Jan 12, 2020 10:00 AM AMBULATORY - NONE [facility] Jan 26, 2020 03:00 PM AMBULATORY - NONE [facility] [place] [facility] Feb 29, 2020 02:30 PM AMBULATORY - NONE [facility] [place] [facility] March 20, 2020 08:00 AM AMBULATORY - MEDICINE [facility] IN Surgical Procedures: All associated to the [...] Range Comment Sep 15, 2019 11:44 AM [facility] [place] [facility] BASIC METABOLIC PANEL Specimen Type: PLASMA No comment entered. *CREATININE 1.59 mg/dL H 0.7-1.3 UREA NITROGEN mg/dL 30 mg/dL H 9-25 GLUCOSE 151 mg/dL H 72-99 SODIUM 139 mEq/L 136-145 POTASSIUM 3.9 mEq/L 3.5-5.0 CALCIUM (mg/dL) 9.8 mg/dL 8.4-10.4 CHLORIDE 101 mEq/L 98-107 CO2 31 mEq/L 22-31 EGFR 42.9 Sep 15, 2019 11:44 AM [facility] [place] [facility] HEMOGLOBIN A1C Specimen Type: BLOOD No comment entered. HEMOGLOBIN A1C 9.9 % H 4.0-6.0 Vital Signs: All taken on the encounter date This section contains inpatient and outpatient Vital Signs collected on the date of the Encounter. Date/Time Temperature Pulse Blood Pressure Respiratory Rate SP02 Pa in Height Weight Body Mass Index Source Sep 22, 2019 10:56 AM 97.6 F 62 /min 138/62 mm[Hg] 20 /min 94 % 7 177.5 lb 30 [facility] Immunizations: All administered on the encounter date No Data Provided for This Section Social History: Smoking Status (Most current) and Tobacco Use (All prior to enco unter date) This section includes the most current, and the historical, smoking and tobacco- related health factors from the [place] facility where the Encounter took place. Current Smoking Status This section includes the most current smoking, or tobacco -related health factor, from the [place] facility where the Encounter took place. Date/Time Current Smoking Status Comment Facility Nov 03, 2018 07:59 AM [place]-TOBACCO QUIT 15 YRS OR MORE [facility] Tobacco Use History This section includes a history of the smoking, or tobacco -related health factors, that were collected on or before the date of the Encoun ter. The data comes from the [place] facility where the Encounter took place. Date/Time Smoking Status/Tobacco Use Comment [facility] Nov 03, 2018 07:59 AM [place]-TOBACCO QUIT 15 YRS OR MORE [facility] Oct 23, 2017 07:35 AM TOBACCO LIFETIME NON-USER [facility] Advance Directives: All historical and current No Data Provided for This Section Allergies and Adverse Reactions (ADRs): All historical and current Section Date Range: From patient's date of to the date document was create d. This section includes Allergies and Adverse Reactions (ADR s) on record with [facility] for the patient. The data comes from a ll [place] treatment facilities. It does not list Allergies/ADRs that were removed or entered in error. Some allergies/ADRs may be reported in t he Immunization section. Allergen Event Date Event Type Reaction(s) Severity Source LISINOPRIL Dec 01, 2017 Propensity to adverse reactions to drug (disorder) Renal impairment [facility] 15 METFORMIN Dec 01, 2017 Propensity to adverse reactions to drug (disorder) [facility] Medications: VA dispensed (-15 months) and Non-VA Documented (Obtained Outside V A) Section Date Range: 1) prescriptions processed by a VA pharmacy in the last [address] [facility], and 2) all medications recorded in the [place] medical record as "non-VA medic ations". Pharmacy terms refer to [place] pharmacy's work on prescriptions. VA patient s are advised to take their medications as instructed by their health care team. The data comes from all [place] treatment facilities. Glossary of Pharmacy Terms:Active = A prescription that can be filled at the local [place] pharmacy.Active: On Hold = An active prescription that will not be filled until pharmacy resolves the issue.Active: Susp = An active prescription that is not scheduled to be filled yet.Clinic Order = A medication received during a visit to a [place] clinic or emergency department (currently not available).Discontinued [...] TIMES A DAY 400 Sep 12, 2020 [id number] Feb 29, 2020 REGGIE LIVINGSTON L [facility] ACCU-CHEK ROSINA PLUS (GLUCOSE) TEST STRIP Discontinued USE 1 STRIP FOR TESTING FOUR TIMES A DAY 400 Sep 15, 2019 [id number] Jun 13, 2019 YAYAI ELEUTERIO LEE [facility] ALCOHOL PREP PAD Discontinued USE 1 PAD ON SKIN FOUR TIMES A DAY 40 0 Apr 25, 2020 [id number] Nov 29, 2019 ELEUTERIO LIVINGSTON [facility] [place] ALCOHOL PREP PAD Discontinued USE 1 PAD ON SKIN FOUR TIMES A DAY 40 0 Sep 15, 2019 [id number] Apr 18, 2019 ELEUTERIO LIVINGSTON [facility] ALLOPURINOL 100MG TAB Active TAKE ONE TABLET BY MOUTH ONCE A DAY FOR GOUT. TAKE WITH PLENTY OF WATER 90 Sep 23, 2020 [id number] Mar 05, 2020 SILVINA CHAMBERS [facility] [place] [facility] ALLOPURINOL 100MG TAB Discontinued TAKE ONE TABLET BY MOUTH ONCE A DAY FOR GOUT. TAKE WITH PLENTY OF WATER 90 Dec 30, 2019 [id number] Sep 17, 2019 THOM SOLIS [facility] [place] [facility] ALOGLIPTIN 12.5MG TAB Active TAKE ONE TABLET BY MOUTH O NCE A DAY FOR DIABETES 90 Sep 12, 2020 [id number] Mar 04, 2020 LYNDABRYCEDANNELEUTERIO Laron [facility] [place] ALOGLIPTIN 12.5MG TAB Discontinued TAKE ONE TABLET BY MOUTH ONCE A DAY FOR DIABETES 90 Dec 22, 2019 [id number] Jun 18, 2019 [facility] [place] AMLODIPINE BESYLATE 10MG TAB Discontinued TAKE ONE TA BLET BY MOUTH EVERY MORNING FOR HEART/BLOOD PRESSURE 90 Jun 10, 2019 [id number] Feb 25, 2019 MONIKA RIVERA [facility] [place] [facility] AMLODIPINE BESYLATE 10MG TAB TAKE ONE TA BLET BY MOUTH EVERY MORNING FOR HEART/BLOOD PRESSURE 90 Apr 12, 2020 [id number] Feb 10, 2020 SILVINA CHAMBERS [facility] ASPIRIN 81MG TAB,CHEWABLE Non-VA CHEW ONE TABLET BY MOUTH ONCE A DAY Non-VA Documented by: MEGAN HAWK nted at: [facility] [place] [facility] ATORVASTATIN CA 20MG TAB Active TAKE ONE TABLET BY MOUTH ONCE A DAY FOR CHOLESTEROL. REPORT ANY UNEXPLAINED MUSCLE PAIN OR WEAKNESS TO YOUR DOCTOR. 90 Jan 02, 2021 [id number] March 24, 2020 GROVENELLA CRAWFORD [facility] [place] [facility] ATORVASTATIN CA 40MG TAB Discontinued TAKE ONE-HALF T ABLET BY MOUTH AT BEDTIME FOR CHOLESTEROL. REPORT ANY UNEXPLAINED MUSCLE PAIN OR WEAKNESS TO YOUR DOCTOR. 45 Jul 15, 2020 [id number] Oct 14, 2019 [facility] [place] ATORVASTATIN CA 40MG TAB Discontinued TAKE ONE-HALF T ABLET BY MOUTH AT BEDTIME FOR CHOLESTEROL. REPORT ANY UNEXPLAINED MUSCLE PAIN OR WEAKNESS TO YOUR DOCTOR. 45 Oct 12, 2019 [id number] Jul 16, 2019 [facility] [place] [facility] CALCIUM CARBONATE 500MG TAB,CHEWABLE Non-VA CHEW ONE TABLET BY MOUTH PRN Non-VA Documented by: THOM CHAMBERS nted at: [facility] CHLORTHALIDONE 25MG TAB Active TAKE ONE TABLET BY MOUTH ONCE A DAY 90 Jul 01, 2020 [id number] March 19, 2020 MONIKA HAMMER [facility] [place] [facility] CHLORTHALIDONE 25MG TAB Discontinued TAKE ONE TABLET BY MOUTH ONCE A DAY 90 Jun 16, 2019 [id number] Apr 12, 2019 MONIKA HAMMER [facility] [place] CHOLECALCIFEROL 1000UNT TAB Non-VA TAKE ONE TABLET BY MOUTH EVERY OTHER DAY Non-VA Docume nted by: MEGAN HAWK Docume nted at: [facility] [place] [facility] CYANOCOBALAMIN 1000MCG/ML INJ Active INJECT 100 0 MCG (1 ML) INTRAMUSCULARLY EVERY MONTH FOR B12 SUPPLEMENTATION. 3 Nov 03, 2020 [id number] Apr 23, 2020 THOM CHAMBERS [facility] [place] [facility] CYANOCOBALAMIN 1000MCG/ML INJ Discontinued INJECT 100 0 MCG (1 ML) INTRAMUSCULARLY EVERY MONTH FOR B12 SUPPLEMENTATION. 3 Nov 17 0 [id number] Aug 07, 2019 THOM CHAMBERS [facility] [place] [facility] DIPHENHYDRAMINE HCL 25MG CAP Non-VA TAKE 1 CAPSULE BY MOUTH PRN Non-VA Documented by: THOM CHAMBERS nted at: [facility] DOCUSATE NA 100MG CAP No n-VA TAKE 2 CAPSULES BY MOUTH ONCE A DAY Non-VA Documented by: THOM CHAMBERS nted at: [facility] FISH OIL 1000MG (500MG DHA/EPA) CAP,ORAL Non-VA TAKE 1 CAPSULE BY MOUTH ONCE A DAY Non-VA Documented by: MEGAN HAWK nted at: [facility] [place] [facility] GABAPENTIN 100MG CAP Active TAKE 1 CAPSULE BY M OUTH EVERY MORNING AND TAKE 1 CAPSULE BY MOUTH AT NOON AND TAKE 2 CAPSULES BY MOUTH AT BEDTIME 360 Jul 06, 2020 [id number] March 31, 2020 ELEUTERIO LIVINGSTON [facility] [place] [facility] GLUCAGON 1MG/GABRIELLA INJ,EMERGENCY KIT INJEC T 1MG SUBCUTANEOUSLY NEEDED FOR SEVERE HYPOGLYCEMIA 1 Nov 30, 2019 [id number] Nov 03, 2019 REYESTHOM WALL [facility] [place] [facility] INSULIN,ASPART,HUMAN 100U/ML,NOVOLOG,FLEXPEN,3ML Active: On Hold INJECT 20 UNITS SUBCUTANEOUSLY BEFORE BREAKFAST AND INJECT 20 UNITS BEFORE LUNCH AND INJECT 26 UNITS BEFORE SUPPER AND INJECT 24 UNITS SNACK FOR BLOOD SUGAR CONTROL. ADMINISTER 10 MINUTES BEFORE FOOD DIRECTED. REFRIGERATE UN-OPENED PENS. DISCARD CARTRIDGE 28 DAYS AFTER OPENING. PLUS CORRECTION Mar 01, 2021 [id number] ELEUTERIO LIVINGSTON [facility] [place] [facility] INSULIN,ASPART,HUMAN 100U/ML,NOVOLOG,FLEXPEN,3ML Discontinue d INJECT 20 UNITS SUBCUTANEOUSLY BEFORE BREAKFAST AND INJECT 20 UNITS BEFORE LUNCH AND INJECT 24 UNITS BEFORE SUPPER AND INJECT 24 UNITS SNACK FOR BLOOD SUGAR CONTROL. ADMINISTER 10 MINUTES BEFORE FOOD DIRECTED. REFRIGERATE UN-OPENED PENS. DISCARD CARTRIDGE 28 DAYS AFTER OPENING. PLUS CORRECTION Jan 26, 2021 [id number] Jan 28, 2020 ELEUTERIO LIVINGSTON [facility] [place] [facility] INSULIN,ASPART,HUMAN 100U/ML,NOVOLOG,FLEXPEN,3ML Discontinue d INJECT 20 UNITS SUBCUTANEOUSLY BEFORE MEALS FOR BLOOD SUGAR CONTROL. ADMINISTER 10 MINUTES BEFORE FOOD DIRECTED. REFRIGERATE UN-OPENED PENS. DISCARD CARTRIDGE 28 DAYS AFTER OPENING. PLUS CORRECTION FOR BLOOD SUGAR CONTROL. ADMINISTER 10 MINUTES BEFORE FOOD DIRECTED. REFRIGERATE UN-OPENED PENS. DISCARD CARTRIDGE 28 DAYS AFTER OPENING. PLUS CORRECTION Nov 16, 2020 [id number] Nov 16 ELEUTERIO LIVINGSTON [facility] [place] [facility] INSULIN,ASPART,HUMAN 100U/ML,NOVOLOG,FLEXPEN,3ML Discontinue d INJECT 15 UNITS SUBCUTANEOUSLY EVERY MORNING BEFORE MEAL AND INJECT 15 UNITS WITH LUNCH AND INJECT 15 UNITS WITH SUPPER AND INJECT 20 UNITS WITH SNACK FOR BLOOD SUGAR CONTROL. ADMINISTER 10 MINUTES BEFORE FOOD DIRECTED. REFRIGERATE UN-OPENED PENS. DISCARD CARTRIDGE 28 DAYS AFTER OPENING. Dec 22, 2019 5 [id number] Oct 12, 2019 ELEUTERIO LIVINGSTON [facility] [place] [facility] INSULIN,GLARGINE,HUMAN 100 UNIT/ML INJ,SOLOSTAR,3ML Active INJECT 50 UNITS SUBCUTANEOUSLY EVERY MORNING FOR BLOOD SUGAR CONTROL. ADMINISTER AT SAME TIME EACH DAY DIRECTED. DISCARD ANY OPEN CARTRIDGE AFTER 28 DAYS. Sep 23, 2020 [id number] Jan 28, 2020 ELEUTERIO LIVINGSTON [facility] [place] [facility] INSULIN,GLARGINE,HUMAN 100 UNIT/ML INJ,SOLOSTAR,3ML Disconti nued INJECT 45 UNITS SUBCUTANEOUSLY EVERY MORNING FOR BLOOD SUGAR CONTROL. ADMINISTER AT SAME TIME EACH DAY DIRECTED. DISCARD ANY OPEN CARTRIDGE AFTER 28 DAYS. Oct 23, 2019 [id number] Aug 30, 2019 ELEUTERIO LIVINGSTON [facility] [place] [facility] LACTOBACILLUS ACIDOPHILUS TAB,CHEWABLE Non-VA CHEW ONE TABLET BY MOUTH ONCE A DAY Non-VA Documented by: MEGAN HAWK at: [facility] LANCET,SOFTCLIX Active USE LANCET 5 TIME S A DAY FOR TESTING BLOOD GLUCOSE DIRECTED 500 Dec 28, 2020 [id number] March 19, 2020 ELEUTERIO LIVINGSTON [facility] LANCET,SOFTCLIX Discontinued USE LANCET 5 TIME S A DAY FOR TESTING BLOOD GLUCOSE DIRECTED 500 Jan 11, 2020 [id number] Sep 29, 2019 LYNDATRMARVIN ITISELEUTERIO [facility] [place] [facility] MAGNESIUM OXIDE 400MG TAB Non-VA TAKE ONE TABLET BY MOUTH ONCE A DAY Non-VA Documented by: MEGAN HAWK at: [facility] METOPROLOL SUCCINATE 200MG TAB,SA TAKE O NE-HALF TABLET BY MOUTH EVERY EVENING FOR HEART/BLOOD PRESSURE. SWALLOW WHOLE, DO NOT CRUSH OR CHEW (TABLETS MAY BE CUT IN HALF). 45 March 18, 2020 [id number] Dec 28, 2019 STANISLAV HAMMER [facility] NEEDLE 22G 1.5IN USE NEEDLE FOR EVERY MONTH 1 Nov 12, 2019 [id number] Feb 07, 2019 PAYAM WATTS [facility] [place] [facility] NEEDLE,PEN 31G,5MM Discontinued USE NEEDLE SUBCUTANE OUSLY 5 TIMES A DAY - THIS IS A SINGLE USE NEEDLE AND SHOULD BE DISCARDED AFTER USE 500 Dec 21, 2019 [id number] Sep 28, 2019 BALTRUSAITIS,ELEUTERIO Larry [facility] [place] [facility] POTASSIUM CHLORIDE 10MEQ TAB,SA Active TAKE TWO TABLETS BY MOUTH TWO TIMES A DAY FOR POTASSIUM SUPPLEMENTATIONTAKE WITH FOOD 360 Dec 12, 2020 [id number] Mar 02, 2020 [facility] [place] POTASSIUM CHLORIDE 10MEQ TAB,SA Discontinued TAKE ONE TABLET BY MOUTH THREE TIMES A DAY WITH MEALS FOR POTASSIUM SUPPLEMENTATIONTAKE WITH FOOD 180 March 16, 2020 [id number] Nov 29, 2019 BALTRUSAITIS,ELEUTERIO MELLO [facility] [place] POTASSIUM CHLORIDE 10MEQ TAB,SA Discontinued TAKE ONE TABLET BY MOUTH THREE TIMES A DAY WITH MEALS FOR POTASSIUM SUPPLEMENTATIONTAKE WITH FOOD 180 May 26, 2019 [id number] Jan 24, 2019 [facility] [place] SYRINGE 2.5-3ML/NDL 25G 1IN Active USE 1 SYRINGE EVERY MONTH 3 Feb 21, 2021 [id number] March 20, 2020 [facility] SYRINGE 2.5-3ML/NDL 25G 1IN Discontinued USE 1 SYRINGE EVERY Thu 3 March 18, 2020 [id number] Dec 21, 2019 [facility] TESTOSTERONE CYPIONATE 200MG/ML INJ,1ML (IN OIL) Active INJECT 200 MG (1 ML) INTRAMUSCULARLY EVERY MONTH FOR HORMONE REPLACEMENT 1 May 18, 2020 [id number] April 06, 2020 PAYAM WATTS [facility] [place] TESTOSTERONE CYPIONATE 200MG/ML INJ,1ML (IN OIL) Discontinue d INJECT 200 MG (1 ML) INTRAMUSCULARLY EVERY MONTH FOR HORMONE REPLACEMENT March 25, 2020 [id number] Oct 25, 2019 PAYAM WATTS [facility] [place] [facility] TESTOSTERONE CYPIONATE 200MG/ML INJ,1ML (IN OIL) Discontinue d INJECT 200 MG (1 ML) INTRAMUSCULARLY EVERY MONTH FOR HORMONE REPLACEMENT 1 Nov 06, 2019 [id number] Sep 25, 2019 PAYAM WATTS [facility] [place] [facility] TESTOSTERONE CYPIONATE 200MG/ML INJ,1ML (IN OIL) Discontinue d INJECT 200 MG (1 ML) INTRAMUSCULARLY EVERY MONTH FOR HORMONE REPLACEMENT 1 May 14, 2019 [id number] Apr 10, 2019 PAYAM WATTS [facility] [place] [facility] TRAMADOL HCL 50MG TAB Active TAKE 1 TO 2 TABLET S BY MOUTH EVERY 6 HOURS NEEDED FOR PAIN 180 Jul 21, 2020 [id number] March 30, 2020 NELLA GROVE [facility] [place] [facility] TRAMADOL HCL 50MG TAB Discontinued TAKE 1 TO 2 TABLET S BY MOUTH EVERY 6 HOURS NEEDED FOR PAIN 180 Jun 06, 2020 [id number] Jan 11, 2020 [facility] [place] [facility] TRAMADOL HCL 50MG TAB Discontinued TAKE 1 TO 2 TABLET S BY MOUTH EVERY 6 HOURS NEEDED FOR PAIN 180 Jun 06, 2020 [id number] Dec 06, 2019 ROSSY GROVE [facility], [place] 15 TRAMADOL HCL 50MG TAB Discontinued TAKE 1 TO 2 TABLET S BY MOUTH EVERY 6 HOURS NEEDED FOR PAIN 180 Dec 14, 2019 [id number] Nov 15, 2019 DANTE VALVERDE [facility] [place] [facility] TRAMADOL HCL 50MG TAB Discontinued TAKE 1 TO 2 TABLET S BY MOUTH EVERY 6 HOURS NEEDED FOR PAIN 180 Jul 06, 2019 [id number] May 26, 2019 ROSSY GROVE [facility] [place] TRIAMCINOLONE ACETONIDE 0.5% CREAM,TOP Active A PPLY SPARINGLY TO AFFECTED AREA ONCE A DAY NEEDED FOR RASH 45 Jul 15, 2020 [id number] April 01 0 THOM CHAMBERS [facility] [place] [facility] TRIAMCINOLONE ACETONIDE 0.5% CREAM,TOP Discontinued A PPLY SPARINGLY TO AFFECTED AREA ONCE A DAY NEEDED FOR RASH 45 Oct 12, 2019 [id number] Jul [facility] [place] [facility] Problems (Conditions): All historical and current Section Date Range: From patient's date of to the date document was create d. This section includes a list of Problems (Conditions) know n to [place] for the patient. It includes both active and inacti ve problems (conditions). The data comes from all [place] treatment facilities. Problem Status Problem Code Date of Onset Date of Resolution Comm ent(s) Provider Source Basal cell carcinoma of scalp Active [id number] THOM CHAMBERS [facility] [place] Chronic back pain Active [id number] TERRIE CHAMBERS [facility] [place] Chronic kidney disease stage 3 Active [id number] THOM CHAMBERS [facility] [place] [facility] Constipation Active [id number] THOM CHAMBERS DEEJAY [facility] [place] [facility] Diabetes mellitus Active 42577271 THOM CHAMBERS [facility] [place] [facility] Diabetic neuropathy Active [id number] Neha CHAMBERS SURYA RIAZ [facility] [place] [facility] Essential hypertension Active 85055603 THOM CHAMBERS [facility] [place] [facility] Hyperlipidemia Active 58682510 THOM CHAMBERS JEFF ROSS [facility] [place] [facility] Hypogonadism Active 62054643 THOM CHAMBERS [facility] [place] [facility] Sleep apnea Active [id number] REYESTHOMIsaac COBB [facility] [place] [facility] Radiology Reports: +/- 30 days of the encounter No Data Provided for This Section Pathology Reports: +/- 30 days of the encounter No Data Provided for This Section Encounter Notes: All associated encounter notes This section contains the clinical notes associated to the Encounter. Date/Time Encounter Note(s) Provider Source Sep 22, 2019 11:48 AM PHARMACY NOTE: LOCAL TITLE: EK-PHARMACY REFILL STANDARD TITLE: PHARMACY NOTE DATE OF NOTE: SEP 22, 2019@11:48 ENTRY DATE: SEP 22, 2019@11:48:24 AUTHOR: BARBARA DUNCAN EXP COSIGNER: URGENCY: STATUS: COMPLETED EK-PHARMACY REFILL Has ADDENDA [place] came to the [facility] for monthly testosterone injection and made renewal request for: 20) TESTOSTERONE CYP 200MG/ML 1ML IN OIL ACTIVE Issu:05-06-19 Qty: 1 for 30 days Sig: INJECT 200 MG Refills: 0 Last:09-25-19 (1 ML) INTRAMUSCULARLY EVERY MONTH FOR Expr:11-06-19 HORMONE REPLACEMENT Future Appointments: SEP 22, 2019@10:00 Clinic: SATURNINO WELLER PACT NURSE SEP 23, 2019@11:00 Clinic: TO-PHARM PACT 5 PHONE OCT 20, 2019@10:00 Clinic: TO-MICHAELA WELLER PACT NURSE NOV 03, 2019@11:30 Clinic: TO-CLIN LAB-NONFAST FT SC N/C NOV 16, 2019@14:00 Clinic: [id number] DARRIN Future [facility] Reminders: Renewal request will be forwarded to Payam Watts for consideration. If approved, please renew prescription. If you do not wish to renew this prescription please document denial as an addendum to this note. Thank you. /noa/ BARBARA DUNCAN RN, BSN Signed: 09/22/2019 11:51 Receipt Acknowledged By: 09/23/2019 07:45 /noa/ PAYAM RAO PA-C 09/23/2019 ADDENDUM STATUS: COMPLETED Provided sufficient refills to get him through his 11/16/19 appt. /noa/ PAYAM WATTS PA-C Signed: 09/23/2019 07:46 BARBARA DUNCAN [facility] Sep 22, 2019 10:56 AM NURSING OUTPATIENT NOTE: LOCAL TITLE: -NURSING CLINIC CHECK-IN STANDARD TITLE: NURSING OUTPATIENT NOTE DATE OF NOTE: SEP 22, 2019@10:56 ENTRY DATE: SEP 22, 2019@11:28:20 AUTHOR: BARBARA DUNCAN EXP COSIGNER: URGENCY: STATUS: COMPLETED PRIMARY REASON FOR VISIT TODAY: [place] for monthly testosterone injection PATIENT'S GOAL/MISSION FOR THEIR HEALTH: "I want to keep getting better." ALLERGIES/ADR: METFORMIN, LISINOPRIL VITALS: DATE/TIME TEMP PULSE RESP BP PAIN WEIGHT PUL OX 09/22/19 @ 1056 97.6 62 20 138/62 7 177.5 94 REPRODUCTIVE HISTORY: Concerns regardng sexual/reproductive health: None LEARNING ASSESSMENT: Patient's preferred language for discussing health care is: Croatian Today's learning assessment regarding patient's readiness to learn. Patient reads well. Barriers to Learning: Has no barriers to learning. Preferred Method of Learning: Reading Listening Seeing / Videos Demonstration Return Demonstration Hands On/Doing Education provided as per documentation below: SCREENING FOR PAIN STATUS: Patient reported pain level as 7 (09/22/2019 10:56) on 0 to 10 scale. Pain Scale used: Numerical Pain Scale Patient states current level of pain is: Acceptable Location of pain that most interferes with your life: feet, lower back & region around scapulae Characteristics of pain: PAIN QUALITY: Aching, Pins & needles Verbal Education Provided: To patient, Pain prevention by early reporting Understanding of education: Patient: Good Patient Support [...] and other non-urgent communication. N:Zoster Immunization: The herpes zoster vaccine is unavailable for this visit. It will be offered at a later time. will be scheduled on 10/20/19 at his next [place] for testosterone injection to also have Shingrix #1. OTHER OBSERVATION/INTERVENTION: here for Monthly Testosterone injection. Pt in clinic today for: Testosterone injection Pt purchased injection medication [facility] [place] [facility]. Patient identity verified using 2 forms of ID: Name and Medication given: Testosterone 200 mg (1 ml) Order Verified:05/08/19 Route: IM Location: RIGHT Mfg: [employer] Lot#: [id number] Exp: 12/2020 Dx: hypogonadism Initiated: Received locally until 01-07-19, then from the [place]. Pt rock injection w/o difficulty. made additional request: - Asked if we had any record of Dr. Wander hernandez sending AXEL for appt with Dr. 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 This keno writer/runner was unable to locate anything in his record to support Dr. Yung's request. DISPOSITION: To home at 1118 /es/ BARBARA DUNCAN RN, BSN Signed: 09/22/2019 11:47 Receipt Acknowledged By: 09/22/2019 13:10 /noa/ BARBARA CARTY [facility]
--- OUTSIDE RECORDS SUMMARY | 2020-04-18 09:55 | XMS REPORT ---
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 Name Role Phone THOM CHAMBERS PCP Unavailable [...] FREEDOM MED REP (WNR) MEDICARE ADVANTAGE MCR ([facility]) Nov 09, 2017 [id number] [phone] SIMI COVARRUBIAS PATIENT ADVANTRA FREEDOM MED REP (WNR) MEDICARE ADVANTAGE MCR ([facility]) Nov 09, 2017 [id number] [phone] SIMI COVARRUBIAS PATIENT AETNA MCR (WNR) MEDICARE ADVANTAGE MCR ([facility]) Nov 09, 2019 [id number] SIMI COVARRUBIAS PATIENT Selected Encounter This section includes the information on record at [place] for the Encounter. Date/Time Encounter Type Encounter Description Reason Provider Source Sep 22, 2019 12:00 AM Outpatient Encounter EVENT (HISTORICAL) [facility] 15 IHE Encounter Template Text not used by MA Assessments - Encounter Diagnoses No Data Provided for This Section Plan of Treatment: Future Appointments (+ 6 months) and Future Tests (+/- 45 day s) The Plan of Treatment section includes future care activities for the patient fr om all [place] treatment facilities. This section includes future appointments and fu ture orders which are active, pending or scheduled. Future Appointments This section includes appointments that were scheduled t o occur 6 months from the date of the Encounter, up to a maximum of 20 appointme nts. The data comes from all [place] treatment facilities. Appointment Date/Time Appointment Type Appointment Facili ty Name Sep 23, 2019 11:00 AM AMBULATORY - NONE [facility] [place] [facility] Oct 17, 2019 03:00 PM AMBULATORY - NONE [facility] [place] [facility] Oct 20, 2019 10:00 AM [facility]ORY [facility] NONE [facility] Nov 10, 2019 12:00 PM [facility]UL[facility] - MEDICINE [facility] Nov 16, 2019 02:00 PM AMBULATORY - SURGERY [facility] Nov 16, 2019 03:00 PM AMBULATORY - NONE [facility] [place] [facility] Nov 17, 2019 10:00 AM AMBULATORY - NONE [facility] Dec 01, 2019 11:30 AM [facility] - [facility] Dec 14, 2019 03:00 PM AMBULATORY - NONE [facility] Dec 15, 2019 01:00 PM AMBULATORY - NONE [facility] Jan 12, 2020 10:00 AM AMBULATORY - NONE [facility] Jan 26, 2020 03:00 PM AMBULATORY - NONE [facility] [place] [facility] Feb 29, 2020 02:30 PM AMBULATORY - NONE [facility] [place] March 20, 2020 08:00 AM AM[facility] - [facility]ICINE [facility] Surgical Procedures: All associated to the encounter No Data Provided for This Section Lab Results: +/- 30 days of the encounter This section includes the Chemistry and Hematology Lab R esults on record with MA for the patient. Radiology Reports and Pathology Report s are provided separately, in subsequent sections. Lab Results This section contains the Chemistry/Hematology Results anushka t were resulted 30 days before or 30 days after the date of the Encounter. Date/Time Source Result Type Result - Unit Interpretation Reference Range Comment Sep 15, 2019 11:44 AM [facility] [place] [facility] BASIC METABOLIC PANEL Specimen Type: PLASMA No comment entered. *CREATININE 1.59 mg/dL H 0.7-1.3 UREA NITROGEN mg/dL 30 mg/dL H 9-25 GLUCOSE 151 mg/dL H 72-99 SODIUM 139 mEq/L 136-145 POTASSIUM 3.9 mEq/L 3.5-5.0 CALCIUM (mg/dL) 9.8 mg/dL 8.4-10.4 CHLORIDE 101 mEq/L 98-107 CO2 31 mEq/L 22-31 EGFR 42.9 Sep 15, 2019 11:44 AM [facility] HEMOGLOBIN A1C Specimen Type: BLOOD No [...] patient. The data comes from a ll [place] treatment facilities. It does not list Allergies/ADRs that were removed or entered in error. Some allergies/ADRs may be reported in t Immunization section. Allergen Event Date Event Type Reaction(s) Severity Source LISINOPRIL Dec 01, 2017 Propensity to adverse reactions to drug (disorder) Renal impairment [facility] 15 METFORMIN Dec 01, 2017 Propensity to adverse reactions to drug (disorder) Renal impairment [facility] 15 Medications: VA dispensed (-15 months) and Non-VA Documented (Obtained Outside A) Section Date Range: 1) prescriptions processed by a [place] pharmacy in the last [facility], and 2) all medications recorded in the [place] medical record as "non-VA medic ations". Pharmacy terms refer to [place] pharmacy's work on prescriptions. VA patient s are advised to take their medications as instructed by their health care team. The data comes from all [place] treatment facilities. Glossary of Pharmacy Terms:Active = A prescription that can be filled at the local [place] pharmacy.Active: On Hold = An active prescription that will not be filled until pharmacy resolves the issue.Active: Susp = An active prescription that is not scheduled to be filled yet.Clinic Order = A medication received during a visit to a [place] clinic or emergency department (currently not available).Discontinued = A prescription stopped by a VA provider. It is no longer available to be filled. = A prescription which is too old to fill. This does not refer to the expiration date of the medication in the container. Non-VA = A medication that came from someplace other than a [place] pharmacy. This may be a prescription from either the [place] or other providers that was filled outside the [place]. Or, it may be an over the [...] TIMES A DAY 400 Sep 12, 2020 [id number] Feb 29, 2020 [facility] ROSINA PLUS (GLUCOSE) TEST STRIP Discontinued USE 1 STRIP FOR TESTING FOUR TIMES A DAY 400 Sep 15, 2019 [id number] Jun 13, 2019 [facility] ALCOH[facility] PREP PAD Discontinued USE 1 PAD ON SKIN FOUR TIMES A DAY 40 0 Apr 25, 2020 [id number] Nov 29, 2019 [facility] [place] [facility] ALCOHOL PREP PAD Discontinued USE 1 PAD ON SKIN FOUR TIMES A DAY 40 0 Sep 15, 2019 [id number] Apr 18, 2019 [facility] ALLOPUR[facility] 100MG TAB Active TAKE ONE TABLET BY MOUTH ONCE A DAY FOR GOUT. TAKE WITH PLENTY OF WATER 90 Sep 23, 2020 [id number] Mar 05, 2020 SILVINA CHAMBERS [facility] [place] [facility] ALLOPURINOL 100MG TAB Discontinued TAKE ONE TABLET BY MOUTH ONCE A DAY FOR GOUT. TAKE WITH PLENTY OF WATER 90 Dec 30, 2019 [id number] Sep 17, 2019 THOM SHARPE [facility] [place] [facility] ALOGLIPTIN 12.5MG TAB Active TAKE ONE TABLET BY MOUTH O NCE A DAY FOR DIABETES 90 Sep 12, 2020 [id number] Mar 04, 2020 BALELEUTERIO KONG [facility] [place] [facility] ALOGLIPTIN 12.5MG TAB Discontinued TAKE ONE TABLET BY MOUTH ONCE A DAY FOR DIABETES 90 Dec 22, 2019 [id number] Jun 18, 2019 BALTRUSAITIS,ELEUTERIO Larry [facility] [place] [facility] AMLODIPINE BESYLATE 10MG TAB Discontinued TAKE ONE TA BLET BY MOUTH EVERY MORNING FOR HEART/BLOOD PRESSURE 90 Jun 10, 2019 [id number] Feb 25, 2019 MONIKA HAMMER [facility] [place] [facility] AMLODIPINE BESYLATE 10MG TAB TAKE ONE TA BLET BY MOUTH EVERY MORNING FOR HEART/BLOOD PRESSURE 90 Apr 12, 2020 [id number] Feb 10, 2020 SILVINA CHAMBERS [facility] ASPIRIN 81MG TAB,CHEWABLE Non-VA CHEW ONE TABLET BY MOUTH ONCE A DAY Non-VA Documented by: MEGAN HAWK nted at: [facility] [place] [facility] ATORVASTATIN [place] 20MG TAB Active TAKE ONE TABLET BY MOUTH ONCE A DAY FOR CHOLESTEROL. REPORT ANY UNEXPLAINED MUSCLE PAIN OR WEAKNESS TO YOUR DOCTOR. 90 Jan 02, 2021 [id number] March 24, 2020 [facility] ATORVASTATIN [place] 40MG TAB Discontinued TAKE ONE-HALF T ABLET BY MOUTH AT BEDTIME FOR CHOLESTEROL. REPORT ANY UNEXPLAINED MUSCLE PAIN OR WEAKNESS TO YOUR DOCTOR. 45 Jul 15, 2020 [id number] Oct 14, 2019 REYESTHOM [facility] [place] [facility] ATORVASTATIN CA 40MG TAB Discontinued TAKE ONE-HALF T ABLET BY MOUTH AT BEDTIME FOR CHOLESTEROL. REPORT ANY UNEXPLAINED MUSCLE PAIN OR WEAKNESS TO YOUR DOCTOR. 45 Oct 12, 2019 [id number] Jul 16, 2019 THOM CHAMBERS [facility] [place] [facility] CALCIUM CARBONATE 500MG TAB,CHEWABLE Non-VA CHEW ONE TABLET BY MOUTH PRN Non-VA Documented by: THOM CHAMBERS Docume nted at: [facility] CHLORTHALIDONE 25MG TAB Active TAKE ONE TABLET BY MOUTH ONCE A DAY 90 Jul 01, 2020 [id number] March 19, 2020 MONIKA HAMMER [facility] [place] [facility] CHLORTHALIDONE 25MG TAB Discontinued TAKE ONE TABLET BY MOUTH ONCE A DAY 90 Jun 16, 2019 [id number] Apr 12, 2019 MONIKA HAMMER [facility] [place] [facility] CHOLECALCIFEROL 1000UNT TAB Non-VA TAKE ONE TABLET BY MOUTH EVERY OTHER DAY Non-VA Docume nted by: MEGAN HAWKume nted at: [facility] [place] [facility] CYANOCOBALAMIN 1000MCG/ML INJ Active INJECT 100 0 MCG (1 ML) INTRAMUSCULARLY EVERY MONTH FOR B12 SUPPLEMENTATION. 3 Nov 03, 2020 [id number] Apr 23, 2020 [facility] [place] [facility] CYANOCOBALAMIN 1000MCG/ML INJ Discontinued INJECT 100 0 MCG (1 ML) INTRAMUSCULARLY EVERY MONTH FOR B12 SUPPLEMENTATION. 3 Nov 17 0 [id number] Aug 07, 2019 [facility] [place] [facility] DIPHENHYDRAMINE HCL 25MG CAP Non-VA TAKE 1 CAPSULE BY MOUTH PRN Non-VA Documented by: THOM CHAMBERS Docume nted at: [facility] DOCUSATE NA 100MG CAP No n-VA TAKE 2 CAPSULES BY MOUTH ONCE A DAY Non-VA Documented by: THOM CHAMBERS Docume nted at: [facility] FISH OIL 1000MG (500MG DHA/EPA) CAP,ORAL Non-VA TAKE 1 CAPSULE BY MOUTH ONCE A DAY Non-VA Documented by: MEGAN HAWK Docume nted at: [facility] [place] GABAPENTIN 100MG CAP Active TAKE 1 CAPSULE BY M OUTH EVERY MORNING AND TAKE 1 CAPSULE BY MOUTH AT NOON AND TAKE 2 CAPSULES BY MOUTH AT BEDTIME 360 Jul 06, 2020 [id number] March 31, 2020 ELEUTERIO LIVINGSTON [facility] [place] [facility] GLUCAGON 1MG/GABRIELLA INJ,EMERGENCY KIT INJEC T 1MG SUBCUTANEOUSLY NEEDED FOR SEVERE HYPOGLYCEMIA 1 Nov 30, 2019 [id number] Nov 03, 2019 [facility] [place] [facility] INSULIN,ASPART,HUMAN 100U/ML,NOVOLOG,FLEXPEN,3ML Active: On Hold INJECT 20 UNITS SUBCUTANEOUSLY BEFORE BREAKFAST AND INJECT 20 UNITS BEFORE LUNCH AND INJECT 26 UNITS BEFORE SUPPER AND INJECT 24 UNITS SNACK FOR BLOOD SUGAR CONTROL. ADMINISTER 10 MINUTES BEFORE FOOD DIRECTED. REFRIGERATE UN-OPENED PENS. DISCARD CARTRIDGE 28 DAYS AFTER OPENING. PLUS CORRECTION Mar 01, 2021 [id number] ELEUTERIO LIVINGSTON [facility] INSULIN,ASPART,HUMAN 100U/ML,NOVOLOG,FLEXPEN,3ML Discontinue d INJECT 20 UNITS SUBCUTANEOUSLY BEFORE BREAKFAST AND INJECT 20 UNITS BEFORE LUNCH AND INJECT 24 UNITS BEFORE SUPPER AND INJECT 24 UNITS SNACK FOR BLOOD SUGAR CONTROL. ADMINISTER 10 MINUTES BEFORE FOOD DIRECTED. REFRIGERATE UN-OPENED PENS. DISCARD CARTRIDGE 28 DAYS AFTER OPENING. PLUS CORRECTION 30 Jan 26, 2021 [id number] Jan 28, 2020 ELEUTERIO LIVINGSTON [facility] INSULIN,ASPART,HUMAN 100U/ML,NOVOLOG,FLEXPEN,3ML Discontinue d INJECT 20 UNITS SUBCUTANEOUSLY BEFORE MEALS FOR BLOOD SUGAR CONTROL. ADMINISTER 10 MINUTES BEFORE FOOD DIRECTED. REFRIGERATE UN-OPENED PENS. DISCARD CARTRIDGE 28 DAYS AFTER OPENING. PLUS CORRECTION FOR BLOOD SUGAR CONTROL. ADMINISTER 10 MINUTES BEFORE FOOD DIRECTED. REFRIGERATE UN-OPENED PENS. DISCARD CARTRIDGE 28 DAYS AFTER OPENING. PLUS CORRECTION 30 Nov 16, 2020 [id number] Nov 16 ELEUTERIO LIVINGSTON [facility] [place] [facility] INSULIN,ASPART,HUMAN 100U/ML,NOVOLOG,FLEXPEN,3ML Discontinue d INJECT 15 UNITS SUBCUTANEOUSLY EVERY MORNING BEFORE MEAL AND INJECT 15 UNITS WITH LUNCH AND INJECT 15 UNITS WITH SUPPER AND INJECT 20 UNITS WITH SNACK FOR BLOOD SUGAR CONTROL. ADMINISTER 10 MINUTES BEFORE FOOD DIRECTED. REFRIGERATE UN-OPENED PENS. DISCARD CARTRIDGE 28 DAYS AFTER OPENING. Dec 22, 2019 5 [id number] Oct 12, 2019 ELEUTERIO LIVINGSTON [facility] [place] [facility] INSULIN,GLARGINE,HUMAN 100 UNIT/ML INJ,SOLOSTAR,3ML Active INJECT 50 UNITS SUBCUTANEOUSLY EVERY MORNING FOR BLOOD SUGAR CONTROL. ADMINISTER AT SAME TIME EACH DAY DIRECTED. DISCARD ANY OPEN CARTRIDGE AFTER 28 DAYS. Sep 23, 2020 [id number] Jan 28, 2020 ELEUTERIO LIVINGSTON [facility] INSULIN,GLARGINE,HUMAN 100 UNIT/ML INJ,SOLOSTAR,3ML Disconti nued INJECT 45 UNITS SUBCUTANEOUSLY EVERY MORNING FOR BLOOD SUGAR CONTROL. ADMINISTER AT SAME TIME EACH DAY DIRECTED. DISCARD ANY OPEN CARTRIDGE AFTER 28 DAYS. Oct 23, 2019 [id number] Aug 30, 2019 ELEUTERIO LIVINGSTON [facility] LACTOBACILLUS ACIDOPHILUS TAB,CHEWABLE Non-VA CHEW ONE TABLET BY MOUTH ONCE A DAY Non-VA Documented by: MEGAN HAWK nted at: [facility] [place] [facility] LANCET,SOFTCLIX Active USE LANCET 5 TIME S A DAY FOR TESTING BLOOD GLUCOSE DIRECTED Dec 28, 2020 [id number] March 19, 2020 ELEUTERIO LIVINGSTON [facility] [place] [facility] LANCET,SOFTCLIX Discontinued USE LANCET 5 TIME S A DAY FOR TESTING BLOOD GLUCOSE DIRECTED 500 Jan 11, 2020 [id number] Sep 29, 2019 ELEUTERIO PATEL [facility] [place] [facility] MAGNESIUM OXIDE 400MG TAB Non-VA TAKE ONE TABLET BY MOUTH ONCE A DAY Non-VA Documented by: MEGAN HAWK nted at: [facility] [place] [facility] METOPROLOL SUCCINATE 200MG TAB,SA TAKE O NE-HALF TABLET BY MOUTH EVERY EVENING FOR HEART/BLOOD PRESSURE. SWALLOW WHOLE, DO NOT CRUSH OR CHEW (TABLETS MAY BE CUT IN HALF). 45 March 18, 2020 [id number] Dec 28, 2019 STANISLAV HAMMER [facility] NEEDLE 22G 1.5IN USE NEEDLE FOR EVERY MONTH 1 Nov 12, 2019 [id number] Feb 07, 2019 ADELAIDA CLIFFORD [facility] [place] [facility] NEEDLE,PEN 31G,5MM Discontinued USE NEEDLE SUBCUTANE OUSLY 5 TIMES A DAY - THIS IS A SINGLE USE NEEDLE AND SHOULD BE DISCARDED AFTER USE 500 Dec 21, 2019 [id number] Sep 28, 2019 ELEUTERIO LIVINGSTON [facility] POTASSIUM CHLORIDE 10MEQ TAB,SA Active TAKE TWO TABLETS BY MOUTH TWO TIMES A DAY FOR POTASSIUM SUPPLEMENTATIONTAKE WITH FOOD 360 Dec 12, 2020 [id number] Mar 02, 2020 [facility] POTASSIUM CHLORIDE 10MEQ TAB,SA Discontinued TAKE ONE TABLET BY MOUTH THREE TIMES A DAY WITH MEALS FOR POTASSIUM SUPPLEMENTATIONTAKE WITH FOOD 180 March 16, 2020 [id number] Nov 29, 2019 ELEUTERIO LIVINGSTON [facility] [place] [facility] POTASSIUM CHLORIDE 10MEQ TAB,SA Discontinued TAKE ONE TABLET BY MOUTH THREE TIMES A DAY WITH MEALS FOR POTASSIUM SUPPLEMENTATIONTAKE WITH FOOD 180 May 26, 2019 [id number] Jan 24, 2019 [facility] [place] [facility] SYRINGE 2.5-3ML/NDL 25G 1IN Active USE 1 SYRINGE EVERY MONTH 3 Feb 21, 2021 [id number] March 20, 2020 THOM CHAMBERS [facility] SYRINGE 2.5-3ML/NDL 25G 1IN Discontinued USE 1 SYRINGE EVERY Thu 3 March 18, 2020 [id number] Dec 21, 2019 THOM CHAMBERS [facility] TESTOSTERONE CYPIONATE 200MG/ML INJ,1ML (IN OIL) Active INJECT 200 MG (1 ML) INTRAMUSCULARLY EVERY MONTH FOR HORMONE REPLACEMENT 1 May 18, 2020 [id number] April 06, 2020 ADELAIDA CLIFFORD [facility] [place] [facility] TESTOSTERONE CYPIONATE 200MG/ML INJ,1ML (IN OIL) Discontinue d INJECT 200 MG (1 ML) INTRAMUSCULARLY EVERY MONTH FOR HORMONE REPLACEMENT March 25, 2020 [id number] Oct 25, 2019 ADELAIDA CLIFFORD [facility] [place] [facility] TESTOSTERONE CYPIONATE 200MG/ML INJ,1ML (IN OIL) Discontinue d INJECT 200 MG (1 ML) INTRAMUSCULARLY EVERY MONTH FOR HORMONE REPLACEMENT 1 Nov 06, 2019 [id number] Sep 25, 2019 ADELAIDA CLIFFORD [facility] [place] [facility] TESTOSTERONE CYPIONATE 200MG/ML INJ,1ML (IN OIL) Discontinue d INJECT 200 MG (1 ML) INTRAMUSCULARLY EVERY MONTH FOR HORMONE REPLACEMENT 1 May 14, 2019 [id number] Apr 10, 2019 ADELAIDA CLIFFORD [facility] [place] [facility] TRAMADOL HCL 50MG TAB Active TAKE 1 TO 2 TABLET S BY MOUTH EVERY 6 HOURS NEEDED FOR PAIN 180 Jul 21, 2020 [id number] March 30, 2020 [facility] TRAMADOL HCL 50MG TAB Discontinued TAKE 1 TO 2 TABLET S BY MOUTH EVERY 6 HOURS NEEDED FOR PAIN 180 Jun 06, 2020 [id number] Jan 11, 2020 [facility] TRAMADOL HCL 50MG TAB Discontinued TAKE 1 TO 2 TABLET S BY MOUTH EVERY 6 HOURS NEEDED FOR PAIN 180 Jun 06, 2020 [id number] Dec 06, 2019 [facility] TRAMADOL HCL 50MG TAB Discontinued TAKE 1 TO 2 TABLET S BY MOUTH EVERY 6 HOURS NEEDED FOR PAIN 180 Dec 14, 2019 [id number] Nov 15, 2019 DANTE VALVERDE [facility] [place] [facility] TRAMADOL HCL 50MG TAB Discontinued TAKE 1 TO 2 TABLET S BY MOUTH EVERY 6 HOURS NEEDED FOR PAIN 180 Jul 06, 2019 [id number] May 26, 2019 NELLA GROVE [facility] [place] [facility] TRIAMCINOLONE ACETONIDE 0.5% CREAM,TOP Active A PPLY SPARINGLY TO AFFECTED AREA ONCE A DAY NEEDED FOR RASH 45 Jul 15, 2020 [id number] April 01 0 THOM CHAMBERS [facility] [place] [facility] TRIAMCINOLONE ACETONIDE 0.5% CREAM,TOP Discontinued A PPLY SPARINGLY TO AFFECTED AREA ONCE A DAY NEEDED FOR RASH 45 Oct 12, 2019 [id number] Jul THOM CHAMBERS [facility] [place] [facility] Problems (Conditions): All historical and current Section Date Range: From patient's date of to the date document was create d. This section includes a list of Problems (Conditions) know n to [facility] for the patient. It includes both active and inacti ve problems (conditions). The data comes from all [place] treatment facilities. Problem Status Problem Code Date of Onset Date of Resolution Comm ent(s) Provider Source Basal cell carcinoma of scalp Active [id number] THOM CHAMBERS [facility] [place] [facility] Chronic back pain Active [id number] TERRIE CHAMBERS [facility] [place] [facility] Chronic kidney disease stage 3 Active [id number] REYES,DANA [facility] [place] [facility] Constipation Active [id number] THOM CHAMBERS [facility] [place] [facility] Diabetes mellitus Active 53214418 THOM CHAMBERS [facility] [place] [facility] Diabetic neuropathy Active [id number] Neha CHAMBERS [facility] [place] [facility] Essential hypertension Active [id number] THOM CHAMBERS [facility] [place] [facility] Hyperlipidemia Active [id number] THOM CHAMBERS [facility] [place] [facility] Hypogonadism Active 25368275 THOM CHAMBERS [facility] [place] [facility] Sleep apnea Active [id number] THOM CHAMBERS [facility] [place] [facility] Radiology Reports: +/- 30 days of the encounter No Data Provided for This Section Pathology Reports: +/- 30 days of the encounter No Data Provided for This Section Encounter Notes: All associated encounter notes No Data Provided for This Section
--- OUTSIDE RECORDS SUMMARY | 2020-04-18 09:55 | XMS REPORT | Encounter Summary ---
Author Author Department of [facility] SIMI palacio Organization Department of [facility] [employer] Address [address] [place] [phone] Phone Unavailable Care Team Providers Care Physical Director Name Role Phone THOM CHAMBERS PCP Unavailable [...] to Policy Woodard [employer] [facility] ([facility]) MEDICARE ADVANTAGE MCR ([facility]) Nov 09, 2017 [id number] [phone] SIMI COVARRUBIAS PATIENT [employer] [facility] [employer] (R) MEDICARE ADVANTAGE MCR ([facility]) Nov 09, 2017 [id number] [phone] SIMI COVARRUBIAS PATIENT AETNA [facility] ([facility]) MEDICARE ADVANTAGE MCR ([facility]) Nov 09, 2019 [id number] [id number] SIMI COVARRUBIAS PATIENT Selected Encounter This section includes the information on record at PA for the Encounter. Date/Time Encounter Type Encounter Description Reason Provider Source Sep 20, 2019 08:10 AM Outpatient Encounter ADMIN PAT ACTIVTIES ([facility]AS[facility] NCT) [facility] [place] [facility] IHE Encounter Template [...] Appointment Type Appointment Facili ty Name Sep 22, 2019 10:00 AM AMBULATORY - NONE [facility] Sep 23, 2019 11:00 AM AMBULATORY - NONE [facility] Oct 17, 2019 03:00 PM AMBULATORY - NONE [facility] Oct 20, 2019 10:00 AM AM[facility]ULATORY - NONE [facility] Nov 10, 2019 12:00 PM [facility] Nov 16, 2019 02:00 PM AMBULATORY - SURGERY [facility] Nov 16, 2019 03:00 PM AMBULATORY - NONE [facility] Nov 17, 2019 10:00 AM AM[facility]ULATORY - NONE [facility] Dec 01, 2019 11:30 AM [facility] Dec 14, 2019 03:00 PM AMBULATORY - NONE [facility] Dec 15, 2019 01:00 PM AMBULATORY - NONE [facility] Jan 12, 2020 10:00 AM AMBULATORY - NONE [facility] Jan 26, 2020 03:00 PM AMBULATORY - NONE [facility] Feb 29, 2020 02:30 PM AMBULATORY - NONE [facility] March 20, 2020 08:00 AM AMBULATORY - MEDICINE [facility] Surgical Procedures: All associated to [...] Range Comment Sep 15, 2019 11:44 AM [facility] BASIC METABOLIC PANEL Specimen Type: PLASMA No comment entered. *CREATININE 1.59 mg/dL H 0.7-1.3 UREA NITROGEN mg/dL 30 mg/dL H 9-25 GLUCOSE 151 mg/dL H 72-99 SODIUM 139 mEq/L 136-145 POTASSIUM 3.9 mEq/L 3.5-5.0 CALCIUM (mg/dL) 9.8 mg/dL 8.4-10.4 CHLORIDE 101 mEq/L 98-107 CO2 31 mEq/L 22-31 EGFR 42.9 Sep 15, 2019 11:44 AM [facility] HEMOGLOBIN A1C Specimen Type: [...] to drug (disorder) Renal impairment [facility] 15 METFORMIN Dec 01, 2017 Propensity to adverse reactions to drug (disorder) Renal impairment [facility] 15 Medications: VA dispensed (-15 months) and Non-VA Documented (Obtained Outside [facility]) Section Date Range: 1) prescriptions processed by a VA pharmacy in the last 15 m [facility], and 2) all medications recorded [...] available).Discontinued = A prescription stopped by a PA provider. It is no longer available to be filled. = A prescription which is too old to fill. This does not refer to the expiration date of the medication in the container. Non-VA = A medication that came from someplace other than a PA pharmacy. This may be a prescription from either the PA or other providers that was filled outside the PA. Or, it may be an over the [...] TIMES A DAY 400 Sep 12, 2020 [id number] Feb 29, 2020 YARATANGIPAHOA Laron [facility] ACCU-CHEK ROSINA PLUS (GLUCOSE) TEST STRIP Discontinued USE 1 STRIP FOR TESTING FOUR TIMES A DAY 400 Sep 15, 2019 [id number] Jun 13, 2019 BALTRMEI ISELEUTERIO [facility] ALCOHOL PREP PAD Discontinued USE 1 PAD ON SKIN FOUR TIMES A DAY 40 0 Apr 25, 2020 [id number] Nov 29, 2019 ELEUTERIO LIVINGSTON [facility] [place] [facility] ALCOHOL PREP PAD Discontinued USE 1 PAD ON SKIN FOUR TIMES A DAY 40 0 Sep 15, 2019 [id number] Apr 18, 2019 ELEUTERIO LIVINGSTON [facility] ALLOPURINOL 100MG TAB Active TAKE ONE TABLET BY MOUTH ONCE A DAY FOR GOUT. TAKE WITH PLENTY OF WATER 90 Sep 23, 2020 [id number] Mar 05, 2020 SILVINA CHAMBERS [facility] ALLOPURINOL 100MG TAB Discontinued TAKE ONE TABLET BY MOUTH ONCE A DAY FOR GOUT. TAKE WITH PLENTY OF WATER 90 Dec 30, 2019 [id number] Sep 17, 2019 THOM SHARPE [facility] ALOGLIPTIN 12.5MG TAB Active TAKE ONE TABLET BY MOUTH O NCE A DAY FOR DIABETES 90 Sep 12, 2020 [id number] Mar 04, 2020 ELEUTERIO LIVINGSTON [facility] [place] [facility] ALOGLIPTIN 12.5MG TAB Discontinued TAKE ONE TABLET BY MOUTH ONCE A DAY FOR DIABETES 90 Dec 22, 2019 [id number] Jun 18, 2019 BALTRUSAITIS,LEEUTERIO L [facility] AMLODIPINE BESYLATE 10MG TAB Discontinued TAKE ONE TA BLET BY MOUTH EVERY MORNING FOR HEART/BLOOD PRESSURE 90 Jun 10, 2019 [id number] Feb 25, 2019 JAQUELIN MONIKA Larry [facility] AMLODIPINE BESYLATE 10MG TAB TAKE ONE TA BLET BY MOUTH EVERY MORNING FOR HEART/BLOOD PRESSURE 90 Apr 12, 2020 [id number] Feb 10, 2020 SILVINA CHAMBERS [facility] ASPIRIN 81MG TAB,CHEWABLE Non-VA CHEW ONE TABLET BY MOUTH ONCE A DAY Non-VA Documented by: MEGAN HAWK nted at: [facility] ATORVASTATIN CA 20MG TAB Active TAKE ONE TABLET BY MOUTH ONCE A DAY FOR CHOLESTEROL. REPORT ANY UNEXPLAINED MUSCLE PAIN OR WEAKNESS TO YOUR DOCTOR. 90 Jan 02, 2021 [id number] March 24, 2020 NELLA GROVE [facility] 15 ATORVASTATIN CA 40MG TAB Discontinued TAKE ONE-HALF T ABLET BY MOUTH AT BEDTIME FOR CHOLESTEROL. REPORT ANY UNEXPLAINED MUSCLE PAIN OR WEAKNESS TO YOUR DOCTOR. 45 Jul 15, 2020 [id number] Oct 14, 2019 REYESTHOM [facility] ATORVASTATIN CA 40MG TAB Discontinued TAKE ONE-HALF T ABLET BY MOUTH AT BEDTIME FOR CHOLESTEROL. REPORT ANY UNEXPLAINED MUSCLE PAIN OR WEAKNESS TO YOUR DOCTOR. 45 Oct 12, 2019 [id number] Jul 16, 2019 THOM CHAMBERS [facility] CALCIUM CARBONATE 500MG TAB,CHEWABLE Non-VA CHEW ONE TABLET BY MOUTH PRN Non-VA Documented by: THOM CHAMBERS nted at: [facility] CHLORTHALIDONE 25MG TAB Active TAKE ONE TABLET BY MOUTH ONCE A DAY 90 Jul 01, 2020 [id number] March 19, 2020 MONIKA HAMMER [facility] CHLORTHALIDONE 25MG TAB Discontinued TAKE ONE TABLET BY MOUTH ONCE A DAY 90 Jun 16, 2019 [id number] Apr 12, 2019 MONIKA HAMMER [facility] [place] [facility] CHOLECALCIFEROL 1000UNT TAB Non-VA TAKE ONE TABLET BY MOUTH EVERY OTHER DAY Non-VA Docume nted by: MEGAN HAWK Docume nted at: [facility] CYANOCOBALAMIN 1000MCG/ML INJ Active INJECT 100 0 MCG (1 ML) INTRAMUSCULARLY EVERY MONTH FOR B12 SUPPLEMENTATION. 3 Nov 03, 2020 [id number] Apr 23, [address] [facility] [place] [facility] CYANOCOBALAMIN 1000MCG/ML INJ Discontinued INJECT 100 0 MCG (1 ML) INTRAMUSCULARLY EVERY MONTH FOR B12 SUPPLEMENTATION. 3 Nov 17 0 [id number] Aug 07, [address] [facility] [place] [facility] DIPHENHYDRAMINE HCL 25MG CAP Non-VA TAKE 1 CAPSULE BY MOUTH PRN Non-VA Documented by: THOM CHAMBERS nted at: [facility] DOCUSATE NA 100MG CAP No n-VA TAKE 2 CAPSULES BY MOUTH ONCE A DAY Non-VA Documented by: THOM CHAMBERS nted at: [facility] FISH OIL 1000MG (500MG DHA/EPA) CAP,ORAL Non-VA TAKE 1 CAPSULE BY MOUTH ONCE A DAY Non-VA Documented by: MEGAN HAWK Docume nted at: [facility] GABAPENTIN 100MG CAP Active TAKE 1 CAPSULE BY M OUTH EVERY MORNING AND TAKE 1 CAPSULE BY MOUTH AT NOON AND TAKE 2 CAPSULES BY MOUTH AT BEDTIME 360 Jul 06, 2020 [id number] March 31, 2020 ELEUTERIO LIVINGSTON [facility] [place] [facility] GLUCAGON 1MG/GABRIELLA INJ,EMERGENCY KIT INJEC T 1MG SUBCUTANEOUSLY NEEDED FOR SEVERE HYPOGLYCEMIA 1 Nov 30, 2019 [id number] Nov 03, [address] [facility] [place] [facility] INSULIN,ASPART,HUMAN 100U/ML,NOVOLOG,FLEXPEN,3ML Active: On Hold INJECT 20 UNITS SUBCUTANEOUSLY BEFORE BREAKFAST AND INJECT 20 UNITS BEFORE LUNCH AND INJECT 26 UNITS BEFORE SUPPER AND INJECT 24 UNITS SNACK FOR BLOOD SUGAR CONTROL. ADMINISTER 10 MINUTES BEFORE FOOD DIRECTED. REFRIGERATE UN-OPENED PENS. DISCARD CARTRIDGE 28 DAYS AFTER OPENING. PLUS CORRECTION Mar 01, 2021 [id number] ELEUTERIO LIVINGSTON [facility] INSULIN,ASPART,HUMAN 100U/ML,NOVOLOG,FLEXPEN,3ML Discontinue d INJECT 20 UNITS SUBCUTANEOUSLY BEFORE BREAKFAST AND INJECT 20 UNITS BEFORE LUNCH AND INJECT 24 UNITS BEFORE SUPPER AND INJECT 24 UNITS SNACK FOR BLOOD SUGAR CONTROL. ADMINISTER 10 MINUTES BEFORE FOOD DIRECTED. REFRIGERATE UN-OPENED PENS. DISCARD CARTRIDGE 28 DAYS AFTER OPENING. PLUS CORRECTION 30 Jan 26, 2021 [id number] Jan 28, 2020 ELEUTERIO LIVINGSTON [facility] INSULIN,ASPART,HUMAN 100U/ML,NOVOLOG,FLEXPEN,3ML Discontinue d INJECT 20 UNITS SUBCUTANEOUSLY BEFORE MEALS FOR BLOOD SUGAR CONTROL. ADMINISTER 10 MINUTES BEFORE FOOD DIRECTED. REFRIGERATE UN-OPENED PENS. DISCARD CARTRIDGE 28 DAYS AFTER OPENING. PLUS CORRECTION FOR BLOOD SUGAR CONTROL. ADMINISTER 10 MINUTES BEFORE FOOD DIRECTED. REFRIGERATE UN-OPENED PENS. DISCARD CARTRIDGE 28 DAYS AFTER OPENING. PLUS CORRECTION 30 Nov 16, 2020 [id number] Nov 16 ELEUTERIO LIVINGSTON [facility] INSULIN,ASPART,HUMAN 100U/ML,NOVOLOG,FLEXPEN,3ML Discontinue d INJECT 15 UNITS SUBCUTANEOUSLY EVERY MORNING BEFORE MEAL AND INJECT 15 UNITS WITH LUNCH AND INJECT 15 UNITS WITH SUPPER AND INJECT 20 UNITS WITH SNACK FOR BLOOD SUGAR CONTROL. ADMINISTER 10 MINUTES BEFORE FOOD DIRECTED. REFRIGERATE UN-OPENED PENS. DISCARD CARTRIDGE 28 DAYS AFTER OPENING. Dec 22, 2019 5 [id number] Oct 12, 2019 ELEUTERIO LIVINGSTON [facility] INSULIN,GLARGINE,HUMAN 100 UNIT/ML INJ,SOLOSTAR,3ML Active INJECT 50 UNITS SUBCUTANEOUSLY EVERY MORNING FOR BLOOD SUGAR CONTROL. ADMINISTER AT SAME TIME EACH DAY DIRECTED. DISCARD ANY OPEN CARTRIDGE AFTER 28 DAYS. Sep 23, 2020 [id number] Jan 28, 2020 ELEUTERIO LIVINGSTON [facility] INSULIN,GLARGINE,HUMAN 100 UNIT/ML INJ,SOLOSTAR,3ML Disconti nued INJECT 45 UNITS SUBCUTANEOUSLY EVERY MORNING FOR BLOOD SUGAR CONTROL. ADMINISTER AT SAME TIME EACH DAY DIRECTED. DISCARD ANY OPEN CARTRIDGE AFTER 28 DAYS. Oct 23, 2019 [id number] Aug 30, 2019 ELEUTERIO LIVINGSTON [facility] LACTOBACILLUS ACIDOPHILUS TAB,CHEWABLE Non-VA CHEW ONE TABLET BY MOUTH ONCE A DAY Non-VA Documented by: MEGAN HAWK nted at: [facility] LANCET,SOFTCLIX Active USE LANCET 5 TIME S A DAY FOR TESTING BLOOD GLUCOSE DIRECTED 500 Dec 28, 2020 [id number] March 19, 2020 BALTRUSAELEUTERIO QUIGLEY [facility] [place] [facility] LANCET,SOFTCLIX Discontinued USE LANCET 5 TIME S A DAY FOR TESTING BLOOD GLUCOSE DIRECTED 500 Jan 11, 2020 [id number] Sep 29, 2019 YAYA ITELEUTERIO MICHEL [facility] [place] [facility] MAGNESIUM OXIDE 400MG TAB Non-VA TAKE ONE TABLET BY MOUTH ONCE A DAY Non-VA Documented by: MEGAN HAWK nted at: [facility] METOPROLOL SUCCINATE 200MG TAB,SA TAKE O NE-HALF TABLET BY MOUTH EVERY EVENING FOR HEART/BLOOD PRESSURE. SWALLOW WHOLE, DO NOT CRUSH OR CHEW (TABLETS MAY BE CUT IN HALF). 45 March 18, 2020 [id number] Dec 28, 2019 STANISLAV HAMMER [facility] NEEDLE 22G 1.5IN USE NEEDLE FOR EVERY MONTH 1 Nov 12, 2019 [id number] Feb 07, 2019 ADELAIDA CLIFFORD [facility] [place] [facility] NEEDLE,PEN 31G,5MM Discontinued USE NEEDLE SUBCUTANE OUSLY 5 TIMES A DAY - THIS IS A SINGLE USE NEEDLE AND SHOULD BE DISCARDED AFTER USE 500 Dec 21, 2019 [id number] Sep 28, 2019 ELEUTERIO LIVINGSTON [facility] POTASSIUM CHLORIDE 10MEQ TAB,SA Active TAKE TWO TABLETS BY MOUTH TWO TIMES A DAY FOR POTASSIUM SUPPLEMENTATIONTAKE WITH FOOD 360 Dec 12, 2020 [id number] Mar 02, 2020 [facility] 15 POTASSIUM CHLORIDE 10MEQ TAB,SA Discontinued TAKE ONE TABLET BY MOUTH THREE TIMES A DAY WITH MEALS FOR POTASSIUM SUPPLEMENTATIONTAKE WITH FOOD 180 March 16, 2020 [id number] Nov 29, 2019 BALANGELIKAUSAELEUTERIO QUIGLEY [facility] [place] [facility] POTASSIUM CHLORIDE 10MEQ TAB,SA Discontinued TAKE ONE TABLET BY MOUTH THREE TIMES A DAY WITH MEALS FOR POTASSIUM SUPPLEMENTATIONTAKE WITH FOOD 180 May 26, 2019 [id number] Jan 24, 2019 [facility] [place] [facility] SYRINGE 2.5-3ML/NDL 25G 1IN Active USE 1 SYRINGE EVERY MONTH 3 Feb 21, 2021 [id number] March 20, 2020 [facility] SYRINGE 2.5-3ML/NDL 25G 1IN Discontinued USE 1 SYRINGE EVERY Thu 3 March 18, 2020 [id number] Dec 21, 2019 [facility] TESTOSTERONE CYPIONATE 200MG/ML INJ,1ML (IN OIL) Active INJECT 200 MG (1 ML) INTRAMUSCULARLY EVERY MONTH FOR HORMONE REPLACEMENT 1 May 18, 2020 [id number] April 06, 2020 ADELAIDA CLIFFORD [facility] TESTOSTERONE CYPIONATE 200MG/ML INJ,1ML (IN OIL) Discontinue d INJECT 200 MG (1 ML) INTRAMUSCULARLY EVERY MONTH FOR HORMONE REPLACEMENT 1 March 25, 2020 [id number] Oct 25, 2019 ADELAIDA CLIFFORD [facility] TESTOSTERONE CYPIONATE 200MG/ML INJ,1ML (IN OIL) Discontinue d INJECT 200 MG (1 ML) INTRAMUSCULARLY EVERY MONTH FOR HORMONE REPLACEMENT 1 Nov 06, 2019 [id number] Sep 25, 2019 [facility]IDA [facility] TESTOSTERONE CYPIONATE 200MG/ML INJ,1ML (IN OIL) Discontinue d INJECT 200 MG (1 ML) INTRAMUSCULARLY EVERY MONTH FOR HORMONE REPLACEMENT 1 May 14, 2019 [id number] Apr 10, 2019 ADELAIDA CLIFFORD [facility] TRAMADOL HCL 50MG TAB Active TAKE 1 TO 2 TABLET S BY MOUTH EVERY 6 HOURS NEEDED FOR PAIN 180 Jul 21, 2020 [id number] March 30, 2020 [facility] TRAMADOL HCL 50MG TAB Discontinued TAKE 1 TO 2 TABLET S BY MOUTH EVERY 6 HOURS NEEDED FOR PAIN 180 Jun 06, 2020 [id number] Jan 11, 2020 [facility] 15 TRAMADOL HCL 50MG TAB Discontinued TAKE 1 TO 2 TABLET S BY MOUTH EVERY 6 HOURS NEEDED FOR PAIN 180 Jun 06, 2020 [id number] Dec 06, 2019 [facility] 15 TRAMADOL HCL 50MG TAB Discontinued TAKE 1 TO 2 TABLET S BY MOUTH EVERY 6 HOURS NEEDED FOR PAIN 180 Dec 14, 2019 [id number] Nov 15, 2019 DANTE VALVERDE [facility] [place] [facility] TRAMADOL HCL 50MG TAB Discontinued TAKE 1 TO 2 TABLET S BY MOUTH EVERY 6 HOURS NEEDED FOR PAIN 180 Jul 06, 2019 [id number] May 26, 2019 NELLA GROVE [facility] [place] [facility] TRIAMCINOLONE ACETONIDE 0.5% CREAM,TOP Active A PPLY SPARINGLY TO AFFECTED AREA ONCE A DAY NEEDED FOR RASH 45 Jul 15, 2020 [id number] April 01 0 THOM CHAMBERS [facility] TRIAMCINOLONE ACETONIDE 0.5% CREAM,TOP Discontinued A PPLY SPARINGLY TO AFFECTED AREA ONCE A DAY NEEDED FOR RASH 45 Oct 12, 2019 [id number] Jul THOM CHAMBERS [facility] [place] [facility] Problems (Conditions): All historical [...] Source Basal cell carcinoma of scalp Active [id number] THOM CHAMBERS [facility] Chronic back pain Active [id number] TERRIE CHAMBERS [facility] [place] Chronic kidney disease stage 3 Active [id number] THOM CHAMBERS [facility] [place] [facility] Constipation Active 92010125 THOM CHAMBERS [facility] [place] [facility] Diabetes mellitus Active 45682883 THOM CHAMBERS [facility] [place] [facility] Diabetic neuropathy Active 131474828 Neha CHAMBERS [facility] [place] [facility] Essential hypertension Active 99988503 THOM CHAMBERS [facility] [place] [facility] Hyperlipidemia Active 06682464 THOM CHAMBERS [facility] [place] [facility] Hypogonadism Active 86995025 THOM CHAMBERS [facility] [place] [facility] Sleep apnea Active 02723743 THOM CHAMBERS [facility] [place] [facility] Radiology Reports: +/- 30 days of the encounter No Data Provided for This Section Pathology Reports: +/- 30 days of the encounter No Data Provided for This Section Encounter Notes: All associated encounter notes This section contains the clinical notes associated to the Encounter. Date/Time Encounter Note(s) Provider Source Sep 20, 2019 08:10 AM ADMINISTRATIVE NOTE: LOCAL TITLE: EK-ADMINISTRATIVE STANDARD TITLE: ADMINISTRATIVE NOTE DATE OF NOTE: SEP 20, 2019@08:10 ENTRY DATE: SEP 20, 2019@08:10:55 AUTHOR: KILLIAN DAVID EXP COSIGNER: URGENCY: STATUS: COMPLETED 09/12/19 LAB VALUES DRAWN, TESTED AND PRINTED ARE FAXED TO DR. YANELY QUINTERO AT [phone] THIS DATE PER 'S REQUEST; THE SAME FAXED TO DR GROVE IN [facility] PER REQUEST FROM AT # [phone]. CONFIRMATIONS RECEIVED THIS DATE @911 AND 913 RESCPECTIVELY. /noa/ KILLIAN DAVID Signed: 09/20/2019 09:21 Receipt Acknowledged By: 09/20/2019 13:18 /es/ KILLIAN RICHARDS [facility]
--- OUTSIDE RECORDS SUMMARY | 2020-04-18 09:57 | XMS REPORT ---
Author Author [facility] SIMI palacio Organization [facility] Address [address] [place] [phone] Phone Unavailable Care Team Providers Care Sales Planning Manager Name Role Phone THOM CHAMBERS PCP [...] to Policy [place] [facility] ([facility]) MEDICARE ADVANTAGE MCR ([facility]) Nov 09, 2017 [id number] [phone] SIMI COVARRUBIAS PATIENT [facility] (R) MEDICARE ADVANTAGE MCR ([facility]) Nov 09, 2017 [id number] [phone] SIMI COVARRUBIAS PATIENT [employer] ([facility]) MEDICARE ADVANTAGE MCR ([facility]) Nov 09, [phone] [id number] SIMI COVARRUBIAS PATIENT Selected Encounter This section includes the information on record at [facility] for the Encounter. Date/Time Encounter Type Encounter Description Reason Provider Source Aug 26, 2019 08:48 AM Outpatient Encounter ADMIN PAT ACTIVTIES ([facility] NCT) [facility] [place] IHE Encounter Template Text not used by VA Assessments - Encounter Diagnoses No Data Provided for This Section Plan of Treatment: Future Appointments (+ 6 months) and Future Tests (+/- 45 day s) The Plan of Treatment section includes future care activities for the patient fr om all [place] treatment facilities. This section includes future appointments and fu ture orders which are active, pending or scheduled. Future Appointments This section includes appointments that were scheduled t o occur 6 months from the date of the Encounter, up to a maximum of 20 appointme nts. The data comes from all [place] treatment facilities. Appointment Date/Time Appointment Type Appointment Facili ty Name Sep 15, 2019 12:00 PM [facility] Sep 22, 2019 10:00 AM AMBULATORY - NONE [facility] Sep 23, 2019 11:00 AM AMBULATORY - NONE [facility] [place] [facility] Oct 17, 2019 03:00 PM AMBULATORY - NONE [facility] [place] [facility] Oct 20, 2019 10:00 AM [facility] NONE [facility] Nov 10, 2019 12:00 PM [facility] Nov 16, 2019 02:00 PM AMBULATORY - SURGERY [facility] Nov 16, 2019 03:00 PM AMBULATORY - NONE [facility] Nov 17, 2019 10:00 AM [facility]ONE [facility] Dec 01, 2019 11:30 AM [facility] Dec 14, 2019 03:00 PM AMBULATORY - NONE [facility] [place] [facility] Dec 15, 2019 01:00 PM [facility] - NONE [facility] Jan 12, 2020 10:00 AM [facility]ORY [facility] NONE [facility] Jan 26, 2020 03:00 PM AMBULATORY - NONE [facility] Surgical Procedures: All associated to the encounter No Data Provided for This Section Lab Results: +/- 30 days of the encounter This section includes the Chemistry and Hematology Lab R esults on record with [place] for the patient. Radiology Reports and Pathology Report s are provided separately, in subsequent sections. Lab Results This section contains the Chemistry/Hematology Results anushka t were resulted 30 days before or 30 days after the date of the Encounter. Date/Time Source Result Type Result - Unit Interpretation Reference Range Comment Sep 15, 2019 11:44 AM [facility] [place] [facility] BASIC METABOLIC PANEL Specimen Type: PLASMA No comment entered. *CREATININE 1.59 mg/dL H 0.7-1.3 UREA NITROGEN mg/dL 30 mg/dL H 9-25 GLUCOSE 151 mg/dL H 72-99 SODIUM 139 mEq/L 136-145 POTASSIUM 3.9 mEq/L 3.5-5.0 CALCIUM (mg/dL) 9.8 mg/dL 8.4-10.4 CHLORIDE 101 mEq/L 98-107 CO2 31 mEq/L 22-31 EGFR 42.9 Sep 15, 2019 11:44 AM [facility] [place] [facility] HEMOGLOBIN A1C Specimen Type: [...] patient. The data comes from a ll [place] treatment facilities. It does not list Allergies/ADRs that were removed or entered in error. Some allergies/ADRs may be reported in t Immunization section. Allergen Event Date Event Type Reaction(s) Severity Source LISINOPRIL Dec 01, 2017 Propensity to adverse reactions to drug (disorder) Renal impairment [facility] 15 METFORMIN Dec 01, 2017 Propensity to adverse reactions to drug (disorder) Renal impairment [facility] 15 Medications: VA dispensed (-15 months) and Non-VA Documented (Obtained Outside A) Section Date Range: 1) prescriptions processed by a [place] pharmacy in the last 15 m [facility], and 2) all medications recorded in the [place] medical record as "non-VA medic ations". Pharmacy terms refer to [place] pharmacy's work on prescriptions. [facility] patient s are advised to take their medications as instructed by their health care team. The data comes from all [place] treatment facilities. Glossary of Pharmacy Terms:Active = A prescription that can be filled at the local [place] pharmacy.Active: On Hold = An active prescription that will not be filled until pharmacy resolves the issue.Active: Susp = An active prescription that is not scheduled to be filled yet.Clinic Order = A medication received during a visit to a [place] clinic or emergency department (currently not available).Discontinued = A prescription stopped by a VA provider. It is no longer available to be filled. = A prescription which is too old to fill. This does not refer to the expiration date of the medication in the container. Non-VA = A medication that came from someplace other than a [place] pharmacy. This may be a prescription from either the [place] or other providers that was filled outside the [place]. Or, it may be an over the [...] TIMES A DAY 400 Sep 12, 2020 [id number] Feb 29, 2020 [facility] ROSINA PLUS (GLUCOSE) TEST STRIP Discontinued USE 1 STRIP FOR TESTING FOUR TIMES A DAY 400 Sep 15, 2019 [id number] Jun 13, 2019 [facility] AL[facility] PRE[facility] Discontinued USE 1 PAD ON SKIN FOUR TIMES A DAY 40 0 Apr 25, 2020 [id number] Nov 29, 2019 [facility] [place] [facility] ALCO[facility] PREP PAD Discontinued USE 1 PAD ON SKIN FOUR TIMES A DAY 40 0 Sep 15, 2019 [id number] Apr 18, 2019 [facility] ALL[facility] 100MG TAB Active TAKE ONE TABLET BY MOUTH ONCE A DAY FOR GOUT. TAKE WITH PLENTY OF WATER 90 Sep 23, 2020 [id number] Mar 05, 2020 SILVINA CHAMBERS [facility] [place] [facility] ALLOPURINOL 100MG TAB Discontinued TAKE ONE TABLET BY MOUTH ONCE A DAY FOR GOUT. TAKE WITH PLENTY OF WATER 90 Dec 30, 2019 [id number] Sep 17, 2019 THOM SHARPE [facility] [place] [facility] ALOGLIPTIN 12.5MG TAB Active TAKE ONE TABLET BY MOUTH O NCE A DAY FOR DIABETES 90 Sep 12, 2020 [id number] Mar 04, 2020 BALELEUTERIO KONG [facility] [place] [facility] ALOGLIPTIN 12.5MG TAB Discontinued TAKE ONE TABLET BY MOUTH ONCE A DAY FOR DIABETES 90 Dec 22, 2019 [id number] Jun 18, 2019 BALTRUSAITIS,ELEUTERIO Larry [facility] [place] [facility] AMLODIPINE BESYLATE 10MG TAB Discontinued TAKE ONE TA BLET BY MOUTH EVERY MORNING FOR HEART/BLOOD PRESSURE 90 Jun 10, 2019 [id number] Feb 25, 2019 MONIKA HAMMER [facility] [place] [facility] AMLODIPINE BESYLATE 10MG TAB TAKE ONE TA BLET BY MOUTH EVERY MORNING FOR HEART/BLOOD PRESSURE 90 Apr 12, 2020 [id number] Feb 10, 2020 SILVINA CHAMBERS [facility] ASPIRIN 81MG TAB,CHEWABLE Non-VA CHEW ONE TABLET BY MOUTH ONCE A DAY Non-VA Documented by: MEGAN HAWK nted at: [facility] ATORVASTATIN CA 20MG TAB Active TAKE ONE TABLET BY MOUTH ONCE A DAY FOR CHOLESTEROL. REPORT ANY UNEXPLAINED MUSCLE PAIN OR WEAKNESS TO YOUR DOCTOR. 90 Jan 02, 2021 [id number] March 24, 2020 NELLA GROVE [facility] 15 ATORVASTATIN CA 40MG TAB Discontinued TAKE ONE-HALF T ABLET BY MOUTH AT BEDTIME FOR CHOLESTEROL. REPORT ANY UNEXPLAINED MUSCLE PAIN OR WEAKNESS TO YOUR DOCTOR. 45 Jul 15, 2020 [id number] Oct 14, 2019 REYESTHOM [facility] [place] [facility] ATORVASTATIN CA 40MG TAB Discontinued TAKE ONE-HALF T ABLET BY MOUTH AT BEDTIME FOR CHOLESTEROL. REPORT ANY UNEXPLAINED MUSCLE PAIN OR WEAKNESS TO YOUR DOCTOR. 45 Oct 12, 2019 [id number] Jul 16, 2019 THOM CHAMBERS [facility] [place] [facility] CALCIUM CARBONATE 500MG TAB,CHEWABLE Non-VA CHEW ONE TABLET BY MOUTH PRN Non-VA Documented by: THOM CHAMBERS Docume nted at: [facility] CHLORTHALIDONE 25MG TAB Active TAKE ONE TABLET BY MOUTH ONCE A DAY 90 Jul 01, 2020 [id number] March 19, 2020 MONIKA HAMMER [facility] [place] [facility] CHLORTHALIDONE 25MG TAB Discontinued TAKE ONE TABLET BY MOUTH ONCE A DAY 90 Jun 16, 2019 [id number] Apr 12, 2019 MONIKA HAMMER [facility] [place] [facility] CHOLECALCIFEROL 1000UNT TAB Non-VA TAKE ONE TABLET BY MOUTH EVERY OTHER DAY Non-VA Docume nted by: MEGAN HAWK nted at: [facility] CYANOCOBALAMIN 1000MCG/ML INJ Active INJECT 100 0 MCG (1 ML) INTRAMUSCULARLY EVERY MONTH FOR B12 SUPPLEMENTATION. 3 Nov 03, 2020 [id number] Apr 23, 2020 [facility] [place] [facility] CYANOCOBALAMIN 1000MCG/ML INJ Discontinued INJECT 100 0 MCG (1 ML) INTRAMUSCULARLY EVERY MONTH FOR B12 SUPPLEMENTATION. 3 Nov 17 0 [id number] Aug 07, 2019 [facility] [place] [facility] DIPHENHYDRAMINE HCL 25MG CAP Non-VA TAKE 1 CAPSULE BY MOUTH PRN Non-VA Documented by: THOM CHAMBERS Docume nted at: [facility] DOCUSATE NA 100MG CAP No n-VA TAKE 2 CAPSULES BY MOUTH ONCE A DAY Non-VA Documented by: THOM CHAMBERS Docume nted at: [facility] FISH OIL 1000MG (500MG DHA/EPA) CAP,ORAL Non-VA TAKE 1 CAPSULE BY MOUTH ONCE A DAY Non-VA Documented by: MEGAN HAWK Docume nted at: [facility] GABAPENTIN 100MG CAP Active TAKE 1 CAPSULE BY M OUTH EVERY MORNING AND TAKE 1 CAPSULE BY MOUTH AT NOON AND TAKE 2 CAPSULES BY MOUTH AT BEDTIME 360 Jul 06, 2020 [id number] March 31, 2020 ELEUTERIO LIVINGSTON [facility] [place] [facility] GLUCAGON 1MG/GABRIELLA INJ,EMERGENCY KIT INJEC T 1MG SUBCUTANEOUSLY NEEDED FOR SEVERE HYPOGLYCEMIA 1 Nov 30, 2019 [id number] Nov 03, 2019 [facility] [place] [facility] INSULIN,ASPART,HUMAN 100U/ML,NOVOLOG,FLEXPEN,3ML Active: On Hold INJECT 20 UNITS SUBCUTANEOUSLY BEFORE BREAKFAST AND INJECT 20 UNITS BEFORE LUNCH AND INJECT 26 UNITS BEFORE SUPPER AND INJECT 24 UNITS SNACK FOR BLOOD SUGAR CONTROL. ADMINISTER 10 MINUTES BEFORE FOOD DIRECTED. REFRIGERATE UN-OPENED PENS. DISCARD CARTRIDGE 28 DAYS AFTER OPENING. PLUS CORRECTION Mar 01, 2021 [id number] ELEUTERIO LIVINGSTON [facility] INSULIN,ASPART,HUMAN 100U/ML,NOVOLOG,FLEXPEN,3ML Discontinue d INJECT 20 UNITS SUBCUTANEOUSLY BEFORE BREAKFAST AND INJECT 20 UNITS BEFORE LUNCH AND INJECT 24 UNITS BEFORE SUPPER AND INJECT 24 UNITS SNACK FOR BLOOD SUGAR CONTROL. ADMINISTER 10 MINUTES BEFORE FOOD DIRECTED. REFRIGERATE UN-OPENED PENS. DISCARD CARTRIDGE 28 DAYS AFTER OPENING. PLUS CORRECTION 30 Jan 26, 2021 [id number] Jan 28, 2020 ELEUTERIO LIVINGSTON [facility] INSULIN,ASPART,HUMAN 100U/ML,NOVOLOG,FLEXPEN,3ML Discontinue d INJECT 20 UNITS SUBCUTANEOUSLY BEFORE MEALS FOR BLOOD SUGAR CONTROL. ADMINISTER 10 MINUTES BEFORE FOOD DIRECTED. REFRIGERATE UN-OPENED PENS. DISCARD CARTRIDGE 28 DAYS AFTER OPENING. PLUS CORRECTION FOR BLOOD SUGAR CONTROL. ADMINISTER 10 MINUTES BEFORE FOOD DIRECTED. REFRIGERATE UN-OPENED PENS. DISCARD CARTRIDGE 28 DAYS AFTER OPENING. PLUS CORRECTION 30 Nov 16, 2020 [id number] Nov 16 ELEUTERIO LIVINGSTON [facility] [place] [facility] INSULIN,ASPART,HUMAN 100U/ML,NOVOLOG,FLEXPEN,3ML Discontinue d INJECT 15 UNITS SUBCUTANEOUSLY EVERY MORNING BEFORE MEAL AND INJECT 15 UNITS WITH LUNCH AND INJECT 15 UNITS WITH SUPPER AND INJECT 20 UNITS WITH SNACK FOR BLOOD SUGAR CONTROL. ADMINISTER 10 MINUTES BEFORE FOOD DIRECTED. REFRIGERATE UN-OPENED PENS. DISCARD CARTRIDGE 28 DAYS AFTER OPENING. Dec 22, 2019 [id number] Oct 12, 2019 ELEUTERIO LIVINGSTON [facility] [place] [facility] INSULIN,GLARGINE,HUMAN 100 UNIT/ML INJ,SOLOSTAR,3ML Active INJECT 50 UNITS SUBCUTANEOUSLY EVERY MORNING FOR BLOOD SUGAR CONTROL. ADMINISTER AT SAME TIME EACH DAY DIRECTED. DISCARD ANY OPEN CARTRIDGE AFTER 28 DAYS. Sep 23, 2020 [id number] Jan 28, 2020 ELEUTERIO LIVINGSTON [facility] INSULIN,GLARGINE,HUMAN 100 UNIT/ML INJ,SOLOSTAR,3ML Disconti nued INJECT 45 UNITS SUBCUTANEOUSLY EVERY MORNING FOR BLOOD SUGAR CONTROL. ADMINISTER AT SAME TIME EACH DAY DIRECTED. DISCARD ANY OPEN CARTRIDGE AFTER 28 DAYS. Oct 23, 2019 [id number] Aug 30, 2019 ELEUTERIO LIVINGSTON [facility] LACTOBACILLUS ACIDOPHILUS TAB,CHEWABLE Non-VA CHEW ONE TABLET BY MOUTH ONCE A DAY Non-VA Documented by: MEGAN HAWK nted at: [facility] LANCET,SOFTCLIX Active USE LANCET 5 TIME S A DAY FOR TESTING BLOOD GLUCOSE DIRECTED 500 Dec 28, 2020 [id number] March 19, 2020 BALTRUSAELEUTERIO QUIGLEY [facility] [place] [facility] LANCET,SOFTCLIX Discontinued USE LANCET 5 TIME S A DAY FOR TESTING BLOOD GLUCOSE DIRECTED 500 Jan 11, 2020 [id number] Sep 29, 2019 ELEUTERIO PATEL [facility] [place] [facility] MAGNESIUM OXIDE 400MG TAB Non-VA TAKE ONE TABLET BY MOUTH ONCE A DAY Non-VA Documented by: MEGAN HAWK nted at: [facility] METOPROLOL SUCCINATE 200MG TAB,SA TAKE O NE-HALF TABLET BY MOUTH EVERY EVENING FOR HEART/BLOOD PRESSURE. SWALLOW WHOLE, DO NOT CRUSH OR CHEW (TABLETS MAY BE CUT IN HALF). 45 March 18, 2020 [id number] Dec 28, 2019 STANISLAV HAMMER [facility] NEEDLE 22G 1.5IN USE NEEDLE FOR EVERY MONTH 1 Nov 12, 2019 [id number] Feb 07, 2019 ADELAIDA CLIFFORD [facility] [place] [facility] NEEDLE,PEN 31G,5MM Discontinued USE NEEDLE SUBCUTANE OUSLY 5 TIMES A DAY - THIS IS A SINGLE USE NEEDLE AND SHOULD BE DISCARDED AFTER USE 500 Dec 21, 2019 [id number] Sep 28, 2019 ELEUTERIO LIVINGSTON [facility] POTASSIUM CHLORIDE 10MEQ TAB,SA Active TAKE TWO TABLETS BY MOUTH TWO TIMES A DAY FOR POTASSIUM SUPPLEMENTATIONTAKE WITH FOOD 360 Dec 12, 2020 [id number] Mar 02, 2020 [facility] POTASSIUM CHLORIDE 10MEQ TAB,SA Discontinued TAKE ONE TABLET BY MOUTH THREE TIMES A DAY WITH MEALS FOR POTASSIUM SUPPLEMENTATIONTAKE WITH FOOD 180 March 16, 2020 [id number] Nov 29, 2019 BALANGELIKAUSAELEUTERIO QUIGLEY [facility] [place] [facility] POTASSIUM CHLORIDE 10MEQ TAB,SA Discontinued TAKE ONE TABLET BY MOUTH THREE TIMES A DAY WITH MEALS FOR POTASSIUM SUPPLEMENTATIONTAKE WITH FOOD 180 May 26, 2019 [id number] Jan 24, 2019 [facility] [place] [facility] SYRINGE 2.5-3ML/NDL 25G 1IN Active USE 1 SYRINGE EVERY MONTH 3 Feb 21, 2021 [id number] March 20, 2020 [facility] SYRINGE 2.5-3ML/NDL 25G 1IN Discontinued USE 1 SYRINGE EVERY Thu 3 March 18, 2020 [id number] Dec 21, 2019 [facility] TESTOSTERONE CYPIONATE 200MG/ML INJ,1ML (IN OIL) Active INJECT 200 MG (1 ML) INTRAMUSCULARLY EVERY MONTH FOR HORMONE REPLACEMENT 1 May 18, 2020 [id number] April 06, 2020 ADELAIDA CLIFFORD [facility] [place] [facility] TESTOSTERONE CYPIONATE 200MG/ML INJ,1ML (IN OIL) Discontinue d INJECT 200 MG (1 ML) INTRAMUSCULARLY EVERY MONTH FOR HORMONE REPLACEMENT March 25, 2020 [id number] Oct 25, 2019 ADELAIDA CLIFFORD [facility] [facility] TESTOSTERONE CYPIONATE 200MG/ML INJ,1ML (IN OIL) Discontinue d INJECT 200 MG (1 ML) INTRAMUSCULARLY EVERY MONTH FOR HORMONE REPLACEMENT 1 Nov 06, 2019 [id number] Sep 25, 2019 ADELAIDA CLIFFORD [facility] [place] [facility] TESTOSTERONE CYPIONATE 200MG/ML INJ,1ML (IN OIL) Discontinue d INJECT 200 MG (1 ML) INTRAMUSCULARLY EVERY MONTH FOR HORMONE REPLACEMENT 1 May 14, 2019 [id number] Apr 10, 2019 ADELAIDA CLIFFORD [facility] [facility] TRAMADOL HCL 50MG TAB Active TAKE 1 TO 2 TABLET S BY MOUTH EVERY 6 HOURS NEEDED FOR PAIN 180 Jul 21, 2020 [id number] March 30, 2020 [facility] TRAMADOL HCL 50MG TAB Discontinued TAKE 1 TO 2 TABLET S BY MOUTH EVERY 6 HOURS NEEDED FOR PAIN 180 Jun 06, 2020 [id number] Jan 11, 2020 [facility] TRAMADOL HCL 50MG TAB Discontinued TAKE 1 TO 2 TABLET S BY MOUTH EVERY 6 HOURS NEEDED FOR PAIN 180 Jun 06, 2020 [id number] Dec 06, 2019 [facility] TRAMADOL HCL 50MG TAB Discontinued TAKE 1 TO 2 TABLET S BY MOUTH EVERY 6 HOURS NEEDED FOR PAIN 180 Dec 14, 2019 [id number] Nov 15, 2019 DANTE VALVERDE [facility] [place] [facility] TRAMADOL HCL 50MG TAB Discontinued TAKE 1 TO 2 TABLET S BY MOUTH EVERY 6 HOURS NEEDED FOR PAIN 180 Jul 06, 2019 [id number] May 26, 2019 NELLA GROVE [facility] [place] [facility] TRIAMCINOLONE ACETONIDE 0.5% CREAM,TOP Active A PPLY SPARINGLY TO AFFECTED AREA ONCE A DAY NEEDED FOR RASH 45 Jul 15, 2020 [id number] April 01 0 THOM CHAMBERS [facility] [place] [facility] TRIAMCINOLONE ACETONIDE 0.5% CREAM,TOP Discontinued A PPLY SPARINGLY TO AFFECTED AREA ONCE A DAY NEEDED FOR RASH 45 Oct 12, 2019 [id number] Jul THOM CHAMBERS [facility] [place] [facility] Problems (Conditions): All historical and current Section Date Range: From patient's date of to the date document was create d. This section includes a list of Problems (Conditions) know n to [facility] for the patient. It includes both active and inacti ve problems (conditions). The data comes from all [place] treatment facilities. Problem Status Problem Code Date of Onset Date of Resolution Comm ent(s) Provider Source Basal cell carcinoma of scalp Active [id number] THOM CHAMBERS [facility] [place] [facility] Chronic back pain Active [id number] TERRIE CHAMBERS [facility] [place] [facility] Chronic kidney disease stage 3 Active [id number] THOM CHAMBERS [facility] [place] [facility] Constipation Active 42981476 THOM CHAMBERS [facility] [place] [facility] Diabetes mellitus Active 82883013 THOM CHAMBERS [facility] [place] [facility] Diabetic neuropathy Active 203385804 Neha CHAMBERS [facility] [place] [facility] Essential hypertension Active 22513957 THOM CHAMBERS [facility] [place] [facility] Hyperlipidemia Active 42804231 THOM CHAMBERS [facility] [place] [facility] Hypogonadism Active 30864136 THOM CHAMBERS [facility] [place] [facility] Sleep apnea Active 10833051 THOM CHAMBERS [facility] [place] [facility] Radiology Reports: +/- 30 days of the encounter No Data Provided for This Section Pathology Reports: +/- 30 days of the encounter No Data Provided for This Section Encounter Notes: All associated encounter notes This section contains the clinical notes associated to the Encounter. Date/Time Encounter Note(s) Provider Source Aug 26, 2019 08:48 AM PHARMACY NOTE: LOCAL TITLE: EK-PHARMACY NOTE/CONSULT STANDARD TITLE: PHARMACY NOTE DATE OF NOTE: AUG 26, 2019@08:48 ENTRY DATE: AUG 26, 2019@08:48:50 AUTHOR: REGGIE LIVINGSTON EXP COSIGNER: URGENCY: STATUS: COMPLETED Appears [facility] has been lost to f/u. Please reach out to [facility] and offer to reschdule w/in 4 weeks with non-fated labs (BMP, A1c) 1 week prior at [facility]. /noa/ ELEUTERIO LIVINGSTON Clinical [employer] Signed: 08/26/2019 08:49 Receipt Acknowledged By: 08/29/2019 09:47 /noa/ ELEUTERIO DEL REAL [facility]
--- OUTSIDE RECORDS SUMMARY | 2020-04-18 09:57 | XMS REPORT | Encounter Summary ---
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 Name Role Phone THOM CHAMBERS PCP [...] Policy Woodard [facility] ([facility]) MEDICARE ADVANTAGE MCR ([facility]) Nov 09, 2017 [id number] [phone] SIMI COVARRUBIAS PATIENT [facility] (R) MEDICARE ADVANTAGE MCR ([facility]) Nov 09, 2017 [id number] [phone] SIMI COVARRUBIAS PATIENT AETNA [facility] ([facility]) MEDICARE ADVANTAGE MCR ([facility]) Nov 09, [phone] [id number] SIMI COVARRUBIAS PATIENT Selected Encounter This section includes the information on record at [facility] for the Encounter. Date/Time Encounter Type Encounter Description Reason Provider Source Sep 07, 2019 02:46 PM Outpatient Encounter ADMIN PAT ACTIVTIES ([facility]AS[facility] NCT) [facility] [place] I[facility] Encounter Template Text not used by VA Assessments - Encounter Diagnoses No Data Provided for This Section Plan of Treatment: Future Appointments (+ 6 months) and Future Tests (+/- 45 day s) The Plan of Treatment section includes future care activities for the patient fr om all [place] treatment facilities. This section includes future appointments and fu ture orders which are active, pending or scheduled. Future Appointments This section includes appointments that were scheduled t o occur 6 months from the date of the Encounter, up to a maximum of 20 appointme nts. The data comes from all [place] treatment facilities. Appointment Date/Time Appointment Type Appointment Facili ty Name Sep 15, 2019 12:00 PM [facility] Sep 22, 2019 10:00 AM AMBULATORY - NONE [facility] Sep 23, 2019 11:00 AM AMBULATORY - NONE [facility] [place] Oct 17, 2019 03:00 PM AM[facility]ULATORY - NONE [facility] [place] Oct 20, 2019 10:00 AM [facility]ONE [facility] Nov 10, 2019 12:00 PM [facility] Nov 16, 2019 02:00 PM AM[facility]UL[facility]ORY - SURG[facility] [place] [facility] Nov 16, 2019 03:00 PM AMBULATORY - NONE [facility] [place] Nov 17, 2019 10:00 AM [facility]ONE [facility] Dec 01, 2019 11:30 AM [facility] Dec 14, 2019 03:00 PM AMBULATORY - NONE [facility] [place] Dec 15, 2019 01:00 PM [facility]ORY - NONE [facility] Jan 12, 2020 10:00 AM [facility] - NONE [facility] Jan 26, 2020 03:00 PM AMBULATORY - NONE [facility] [place] Feb 29, 2020 02:30 PM AMBULATORY - NONE [facility] [place] Surgical Procedures: All associated to the encounter No Data Provided for This Section Lab Results: +/- 30 days of the encounter This section includes the Chemistry and Hematology Lab R esults on record with [place] for the patient. Radiology Reports and Pathology Report s are provided separately, in subsequent sections. Lab Results This section contains the Chemistry/Hematology Results anushka t were resulted 30 days before or 30 days after the date of the Encounter. Date/Time Source Result Type Result - Unit Interpretation Reference Range Comment Sep 15, 2019 11:44 AM [facility] [place] BASIC METABOLIC PANEL Specimen Type: PLASMA No comment entered. *CREATININE 1.59 mg/dL H 0.7-1.3 UREA NITROGEN mg/dL 30 mg/dL H 9-25 GLUCOSE 151 mg/dL H 72-99 SODIUM 139 mEq/L 136-145 POTASSIUM 3.9 mEq/L 3.5-5.0 CALCIUM (mg/dL) 9.8 mg/dL 8.4-10.4 CHLORIDE 101 mEq/L 98-107 CO2 31 mEq/L 22-31 EGFR 42.9 Sep 15, 2019 11:44 AM [facility] [place] HEMOGLOBIN A1C Specimen Type: [...] patient. The data comes from a ll [place] treatment facilities. It does not list Allergies/ADRs that were removed or entered in error. Some allergies/ADRs may be reported in t Immunization section. Allergen Event Date Event Type Reaction(s) Severity Source LISINOPRIL Dec 01, 2017 Propensity to adverse reactions to drug (disorder) Renal impairment [facility] METFORMIN Dec 01, 2017 Propensity to adverse reactions to drug (disorder) Renal impairment [facility] Medications: VA dispensed (-15 months) and Non-VA Documented (Obtained Outside [facility]) Section Date Range: 1) prescriptions processed by a VA pharmacy in the last 15 m [facility], and 2) all medications recorded in the [place] medical record as "non-VA medic ations". Pharmacy terms refer to [place] pharmacy's work on prescriptions. VA patient s are advised to take their medications as instructed by their health care team. The data comes from all [place] treatment facilities. Glossary of Pharmacy Terms:Active = A prescription that can be filled at the local [place] pharmacy.Active: On Hold = An active prescription that will not be filled until pharmacy resolves the issue.Active: Susp = An active prescription that is not scheduled to be filled yet.Clinic Order = A medication received during a visit to a [place] clinic or emergency department (currently not available).Discontinued = A prescription stopped by a [place] provider. It is no longer available to be filled. = A prescription which is too old to fill. This does not refer to the expiration date of the medication in the container. Non-VA = A medication that came from someplace other than a [place] pharmacy. This may be a prescription from either the [place] or other providers that was filled outside the [place]. Or, it may be an over the [...] TIMES A DAY 400 Sep 12, 2020 [id number] Feb 29, 2020 [place] [facility] ACCU-CHEK ROSINA PLUS (GLUCOSE) TEST STRIP Discontinued USE 1 STRIP FOR TESTING FOUR TIMES A DAY 400 Sep 15, 2019 [id number] Jun 13, 2019 BALTRMEI ISELEUTERIO [facility] ALCOHOL PREP PAD Discontinued USE 1 PAD ON SKIN FOUR TIMES A DAY 40 0 Apr 25, 2020 [id number] Nov 29, 2019 ELEUTERIO [facility] [place] ALCOHOL PREP PAD Discontinued USE 1 PAD ON SKIN FOUR TIMES A DAY 40 0 Sep 15, 2019 [id number] Apr 18, 2019 ELEUTERIO [facility] ALLOPURINOL 100MG TAB Active TAKE ONE TABLET BY MOUTH ONCE A DAY FOR GOUT. TAKE WITH PLENTY OF WATER 90 Sep 23, 2020 [id number] Mar 05, 2020 SILVINA CHAMBERS [facility] [place] ALLOPURINOL 100MG TAB Discontinued TAKE ONE TABLET BY MOUTH ONCE A DAY FOR GOUT. TAKE WITH PLENTY OF WATER 90 Dec 30, 2019 [id number] Sep 17, 2019 THOM SHARPE [facility] [place] ALOGLIPTIN 12.5MG TAB Active TAKE ONE TABLET BY MOUTH O NCE A DAY FOR DIABETES 90 Sep 12, 2020 [id number] Mar 04, 2020 ELEUTERIO [facility] [place] ALOGLIPTIN 12.5MG TAB Discontinued TAKE ONE TABLET BY MOUTH ONCE A DAY FOR DIABETES 90 Dec 22, 2019 [id number] Jun 18, 2019 BALTRUSAITIS,ELEUTERIO L [facility] [place] AMLODIPINE BESYLATE 10MG TAB Discontinued TAKE ONE TA BLET BY MOUTH EVERY MORNING FOR HEART/BLOOD PRESSURE 90 Jun 10, 2019 [id number] Feb 25, 2019 JAQUELIN MONIKA Larry [facility] [place] AMLODIPINE BESYLATE 10MG TAB TAKE ONE TA BLET BY MOUTH EVERY MORNING FOR HEART/BLOOD PRESSURE 90 Apr 12, 2020 [id number] Feb 10, 2020 SILVINA CHAMBERS [facility] ASPIRIN 81MG TAB,CHEWABLE Non-VA CHEW ONE TABLET BY MOUTH ONCE A DAY Non-VA Documented by: MEGAN HAWK nted at: [facility] [place] [facility] ATORVASTATIN CA 20MG TAB Active TAKE ONE TABLET BY MOUTH ONCE A DAY FOR CHOLESTEROL. REPORT ANY UNEXPLAINED MUSCLE PAIN OR WEAKNESS TO YOUR DOCTOR. 90 Jan 02, 2021 [id number] March 24, 2020 NELLA GROVE [facility] ATORVASTATIN CA 40MG TAB Discontinued TAKE ONE-HALF T ABLET BY MOUTH AT BEDTIME FOR CHOLESTEROL. REPORT ANY UNEXPLAINED MUSCLE PAIN OR WEAKNESS TO YOUR DOCTOR. 45 Jul 15, 2020 [id number] Oct 14, 2019 REYESTHOM [facility] [place] ATORVASTATIN CA 40MG TAB Discontinued TAKE ONE-HALF T ABLET BY MOUTH AT BEDTIME FOR CHOLESTEROL. REPORT ANY UNEXPLAINED MUSCLE PAIN OR WEAKNESS TO YOUR DOCTOR. 45 Oct 12, 2019 [id number] Jul 16, 2019 THOM CHAMBERS [facility] [place] CALCIUM CARBONATE 500MG TAB,CHEWABLE Non-VA CHEW ONE TABLET BY MOUTH PRN Non-VA Documented by: THOM CHAMBERS nted at: [facility] CHLORTHALIDONE 25MG TAB Active TAKE ONE TABLET BY MOUTH ONCE A DAY 90 Jul 01, 2020 [id number] March 19, 2020 MONIKA HAMMER [facility] [place] CHLORTHALIDONE 25MG TAB Discontinued TAKE ONE TABLET BY MOUTH ONCE A DAY 90 Jun 16, 2019 [id number] Apr 12, 2019 MONIKA HAMMER [facility] [place] CHOLECALCIFEROL 1000UNT TAB Non-VA TAKE ONE TABLET BY MOUTH EVERY OTHER DAY Non-VA Docume nted by: MEGAN HAWK Docume nted at: [facility] [place] [facility] CYANOCOBALAMIN 1000MCG/ML INJ Active INJECT 100 0 MCG (1 ML) INTRAMUSCULARLY EVERY MONTH FOR B12 SUPPLEMENTATION. 3 Nov 03, 2020 [id number] Apr 23, 2020 [facility] [place] [facility] CYANOCOBALAMIN 1000MCG/ML INJ Discontinued INJECT 100 0 MCG (1 ML) INTRAMUSCULARLY EVERY MONTH FOR B12 SUPPLEMENTATION. 3 Nov 17 0 [id number] Aug 07, 2019 [facility] [place] [facility] DIPHENHYDRAMINE HCL 25MG CAP Non-VA TAKE 1 CAPSULE BY MOUTH PRN Non-VA Documented by: THOM CHAMBERS nted at: [facility] DOCUSATE NA 100MG CAP No n-VA TAKE 2 CAPSULES BY MOUTH ONCE A DAY Non-VA Documented by: THOM CHAMBERS nted at: [facility] FISH OIL 1000MG (500MG DHA/EPA) CAP,ORAL Non-VA TAKE 1 CAPSULE BY MOUTH ONCE A DAY Non-VA Documented by: MEGAN HAWK Docume nted at: [facility] [place] [facility] GABAPENTIN 100MG CAP Active TAKE 1 CAPSULE BY M OUTH EVERY MORNING AND TAKE 1 CAPSULE BY MOUTH AT NOON AND TAKE 2 CAPSULES BY MOUTH AT BEDTIME 360 Jul 06, 2020 [id number] March 31, 2020 ELEUTERIO [facility] [place] GLUCAGON 1MG/GABRIELLA INJ,EMERGENCY KIT INJEC T 1MG SUBCUTANEOUSLY NEEDED FOR SEVERE HYPOGLYCEMIA 1 Nov 30, 2019 [id number] Nov 03, 2019 [facility] [place] [facility] INSULIN,ASPART,HUMAN 100U/ML,NOVOLOG,FLEXPEN,3ML Active: On Hold INJECT 20 UNITS SUBCUTANEOUSLY BEFORE BREAKFAST AND INJECT 20 UNITS BEFORE LUNCH AND INJECT 26 UNITS BEFORE SUPPER AND INJECT 24 UNITS SNACK FOR BLOOD SUGAR CONTROL. ADMINISTER 10 MINUTES BEFORE FOOD DIRECTED. REFRIGERATE UN-OPENED PENS. DISCARD CARTRIDGE 28 DAYS AFTER OPENING. PLUS CORRECTION Mar 01, 2021 [id number] ELEUTERIO LIVINGSTON [facility] [place] [facility] INSULIN,ASPART,HUMAN 100U/ML,NOVOLOG,FLEXPEN,3ML Discontinue d INJECT 20 UNITS SUBCUTANEOUSLY BEFORE BREAKFAST AND INJECT 20 UNITS BEFORE LUNCH AND INJECT 24 UNITS BEFORE SUPPER AND INJECT 24 UNITS SNACK FOR BLOOD SUGAR CONTROL. ADMINISTER 10 MINUTES BEFORE FOOD DIRECTED. REFRIGERATE UN-OPENED PENS. DISCARD CARTRIDGE 28 DAYS AFTER OPENING. PLUS CORRECTION 30 Jan 26, 2021 [id number] Jan 28, 2020 ELEUTERIO LIVINGSTON [facility] [place] [facility] INSULIN,ASPART,HUMAN 100U/ML,NOVOLOG,FLEXPEN,3ML Discontinue d INJECT 20 UNITS SUBCUTANEOUSLY BEFORE MEALS FOR BLOOD SUGAR CONTROL. ADMINISTER 10 MINUTES BEFORE FOOD DIRECTED. REFRIGERATE UN-OPENED PENS. DISCARD CARTRIDGE 28 DAYS AFTER OPENING. PLUS CORRECTION FOR BLOOD SUGAR CONTROL. ADMINISTER 10 MINUTES BEFORE FOOD DIRECTED. REFRIGERATE UN-OPENED PENS. DISCARD CARTRIDGE 28 DAYS AFTER OPENING. PLUS CORRECTION 30 Nov 16, 2020 [id number] Nov 16 ELEUTERIO LIV[place]STON [facility] [place] INSULIN,ASPART,HUMAN 100U/ML,NOVOLOG,FLEXPEN,3ML Discontinue d INJECT 15 UNITS SUBCUTANEOUSLY EVERY MORNING BEFORE MEAL AND INJECT 15 UNITS WITH LUNCH AND INJECT 15 UNITS WITH SUPPER AND INJECT 20 UNITS WITH SNACK FOR BLOOD SUGAR CONTROL. ADMINISTER 10 MINUTES BEFORE FOOD DIRECTED. REFRIGERATE UN-OPENED PENS. DISCARD CARTRIDGE 28 DAYS AFTER OPENING. Dec 22, 2019 [id number] Oct 12, 2019 ELEUTERIO LIVINGSTON [facility] [place] INSULIN,GLARGINE,HUMAN 100 UNIT/ML INJ,SOLOSTAR,3ML Active INJECT 50 UNITS SUBCUTANEOUSLY EVERY MORNING FOR BLOOD SUGAR CONTROL. ADMINISTER AT SAME TIME EACH DAY DIRECTED. DISCARD ANY OPEN CARTRIDGE AFTER 28 DAYS. Sep 23, 2020 [id number] Jan 28, 2020 ELEUTERIO LIVINGSTON [facility] [place] [facility] INSULIN,GLARGINE,HUMAN 100 UNIT/ML INJ,SOLOSTAR,3ML Disconti nued INJECT 45 UNITS SUBCUTANEOUSLY EVERY MORNING FOR BLOOD SUGAR CONTROL. ADMINISTER AT SAME TIME EACH DAY DIRECTED. DISCARD ANY OPEN CARTRIDGE AFTER 28 DAYS. Oct 23, 2019 [id number] Aug 30, 2019 ELEUTERIO LIVINGSTON [facility] [place] [facility] LACTOBACILLUS ACIDOPHILUS TAB,CHEWABLE Non-VA CHEW ONE TABLET BY MOUTH ONCE A DAY Non-VA Documented by: MEGAN HAWK nted at: [facility] [place] [facility] LANCET,SOFTCLIX Active USE LANCET 5 TIME S A DAY FOR TESTING BLOOD GLUCOSE DIRECTED 500 Dec 28, 2020 [id number] March 19, 2020 BALTRUSAELEUTERIO QUIGLEY [facility] [place] LANCET,SOFTCLIX Discontinued USE LANCET 5 TIME S A DAY FOR TESTING BLOOD GLUCOSE DIRECTED 500 Jan 11, 2020 [id number] Sep 29, 2019 YAYA ITELEUTERIO MICHEL [facility] [place] MAGNESIUM OXIDE 400MG TAB Non-VA TAKE ONE TABLET BY MOUTH ONCE A DAY Non-VA Documented by: MEGAN HAWK nted at: [facility] [place] [facility] METOPROLOL SUCCINATE 200MG TAB,SA TAKE O NE-HALF TABLET BY MOUTH EVERY EVENING FOR HEART/BLOOD PRESSURE. SWALLOW WHOLE, DO NOT CRUSH OR CHEW (TABLETS MAY BE CUT IN HALF). 45 March 18, 2020 [id number] Dec 28, 2019 STANISLAV HAMMER [facility] NEEDLE 22G 1.5IN USE NEEDLE FOR EVERY MONTH 1 Nov 12, 2019 [id number] Feb 07, 2019 ADELAIDA CLIFFORD [facility] [place] NEEDLE,PEN 31G,5MM Discontinued USE NEEDLE SUBCUTANE OUSLY 5 TIMES A DAY - THIS IS A SINGLE USE NEEDLE AND SHOULD BE DISCARDED AFTER USE 500 Dec 21, 2019 [id number] Sep 28, 2019 ELEUTERIO LIV[place]ON [facility] [place] [facility] POTASSIUM CHLORIDE 10MEQ TAB,SA Active TAKE TWO TABLETS BY MOUTH TWO TIMES A DAY FOR POTASSIUM SUPPLEMENTATIONTAKE WITH FOOD 360 Dec 12, 2020 [id number] Mar 02, 2020 [facility] POTASSIUM CHLORIDE 10MEQ TAB,SA Discontinued TAKE ONE TABLET BY MOUTH THREE TIMES A DAY WITH MEALS FOR POTASSIUM SUPPLEMENTATIONTAKE WITH FOOD 180 March 16, 2020 [id number] Nov 29, 2019 BALANGELIKAUSAELEUTERIO QUIGLEY [facility] [place] POTASSIUM CHLORIDE 10MEQ TAB,SA Discontinued TAKE ONE TABLET BY MOUTH THREE TIMES A DAY WITH MEALS FOR POTASSIUM SUPPLEMENTATIONTAKE WITH FOOD 180 May 26, 2019 [id number] Jan 24, 2019 [facility] [place] SYRINGE 2.5-3ML/NDL 25G 1IN Active USE 1 SYRINGE EVERY MONTH 3 Feb 21, 2021 [id number] March 20, 2020 [facility] SYRINGE 2.5-3ML/NDL 25G 1IN Discontinued USE 1 SYRINGE EVERY Thu 3 March 18, 2020 [id number] Dec 21, 2019 [facility] TESTOSTERONE CYPIONATE 200MG/ML INJ,1ML (IN OIL) Active INJECT 200 MG (1 ML) INTRAMUSCULARLY EVERY MONTH FOR HORMONE REPLACEMENT 1 May 18, 2020 [id number] April 06, 2020 ADELAIDA CLIFFORD [facility] [place] TESTOSTERONE CYPIONATE 200MG/ML INJ,1ML (IN OIL) Discontinue d INJECT 200 MG (1 ML) INTRAMUSCULARLY EVERY MONTH FOR HORMONE REPLACEMENT 1 March 25, 2020 [id number] Oct 25, 2019 ADELAIDA CLIFFORD [facility] [place] [facility] TESTOSTERONE CYPIONATE 200MG/ML INJ,1ML (IN OIL) Discontinue d INJECT 200 MG (1 ML) INTRAMUSCULARLY EVERY MONTH FOR HORMONE REPLACEMENT 1 Nov 06, 2019 [id number] Sep 25, 2019 [facility]IDA [facility] TESTOSTERONE CYPIONATE 200MG/ML INJ,1ML (IN OIL) Discontinue d INJECT 200 MG (1 ML) INTRAMUSCULARLY EVERY MONTH FOR HORMONE REPLACEMENT 1 May 14, 2019 [id number] Apr 10, 2019 ADELAIDA CLIFFORD [facility] [place] [facility] TRAMADOL HCL 50MG TAB Active TAKE 1 TO 2 TABLET S BY MOUTH EVERY 6 HOURS NEEDED FOR PAIN 180 Jul 21, 2020 [id number] March 30, 2020 [facility] TRAMADOL HCL 50MG TAB Discontinued TAKE 1 TO 2 TABLET S BY MOUTH EVERY 6 HOURS NEEDED FOR PAIN 180 Jun 06, 2020 [id number] Jan 11, 2020 [facility] TRAMADOL HCL 50MG TAB Discontinued TAKE 1 TO 2 TABLET S BY MOUTH EVERY 6 HOURS NEEDED FOR PAIN 180 Jun 06, 2020 [id number] Dec 06, 2019 [facility] TRAMADOL HCL 50MG TAB Discontinued TAKE 1 TO 2 TABLET S BY MOUTH EVERY 6 HOURS NEEDED FOR PAIN 180 Dec 14, 2019 [id number] Nov 15, 2019 DANTE VALVERDE [facility] [place] TRAMADOL HCL 50MG TAB Discontinued TAKE 1 TO 2 TABLET S BY MOUTH EVERY 6 HOURS NEEDED FOR PAIN 180 Jul 06, 2019 [id number] May 26, 2019 NELLA GROVE [facility] [place] TRIAMCINOLONE ACETONIDE 0.5% CREAM,TOP Active A PPLY SPARINGLY TO AFFECTED AREA ONCE A DAY NEEDED FOR RASH 45 Jul 15, 2020 [id number] April 01 0 THOM CHAMBERS [facility] [place] TRIAMCINOLONE ACETONIDE 0.5% CREAM,TOP Discontinued A PPLY SPARINGLY TO AFFECTED AREA ONCE A DAY NEEDED FOR RASH 45 Oct 12, 2019 [id number] Jul THOM CHAMBERS [facility] [place] Problems (Conditions): All historical and current Section Date Range: From patient's date of to the date document was create d. This section includes a list of Problems (Conditions) know n to [place] for the patient. It includes both active and inacti ve problems (conditions). The data comes from all [place] treatment facilities. Problem Status Problem Code Date of Onset Date of Resolution Comm ent(s) Provider Source Basal cell carcinoma of scalp Active [id number] THOM CHAMBERS [facility] [place] Chronic back pain Active [id number] TERRIE CHAMBERS [facility] [place] [facility] Chronic kidney disease stage 3 Active [id number] THOM CHAMBERS [facility] [place] [facility] Constipation Active [id number] THOM CHAMBERS [facility] [place] [facility] Diabetes mellitus Active 76946665 THOM CHAMBERS [facility] [place] [facility] Diabetic neuropathy Active [id number] Neha CHAMBERS [facility] [place] [facility] Essential hypertension Active 16190902 THOM CHAMBERS [facility] [place] [facility] Hyperlipidemia Active [id number] THOM CHAMBERS [facility] [place] [facility] Hypogonadism Active 53919163 THOM CHAMBERS [facility] [place] Sleep apnea Active 98668193 THOM CHAMBERS [facility] [place] Radiology Reports: +/- 30 days of the encounter No Data Provided for This Section Pathology Reports: +/- 30 days of the encounter No Data Provided for This Section Encounter Notes: All associated encounter notes This section contains the clinical notes associated to the Encounter. Date/Time Encounter Note(s) Provider Source Sep 07, 2019 02:46 PM CARE MANAGEMENT NOTE: LOCAL TITLE: EK-PACT CARE MANAGEMENT STANDARD TITLE: CARE MANAGEMENT NOTE DATE OF NOTE: SEP 07, 2019@14:46 ENTRY DATE: SEP 07, 2019@14:46:40 AUTHOR: DARIO DUNCAN EXP COSIGNER: URGENCY: STATUS: COMPLETED EK-PACT CARE MANAGEMENT Has ADDENDA Received Diabetic Foot evaluation from [facility] Date: 08-16-2019 to provider for viewing to med Rec /noa/ DARIO DUNCAN LPN Signed: 09/07/2019 14:47 Receipt Acknowledged By: 09/09/2019 20:42 /noa/ TOHM MARTINEZ UPPER STITCHER 09/22/2019 ADDENDUM STATUS: COMPLETED This document was scanned to [facility] Result Note Dated 09/22/19. To refer to the attached scanned document, on the Tools Bar select the Tools, then select Imaging (log in) and then, if needed, select View and display list. /noa/ PEYTON Gray [employer] SPECIALIST Signed: 09/22/2019 09:28 DARIO DUNCAN [facility]
--- OUTSIDE RECORDS SUMMARY | 2020-04-18 09:58 | XMS REPORT ---
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 Name Role Phone THOM CHAMBERS PCP Unavailable [...] MED REP (WNR) MEDICARE ADVANTAGE MCR ([facility]) Nov 09, 2017 [id number] [phone] SIMI COVARRUBIAS PATIENT ADVANTRA F[employer]OM MED REP (WNR) MEDICARE ADVANTAGE MCR ([facility]) Nov 09, 2017 [id number] [phone] SIMI COVARRUBIAS PATIENT AETNA MCR ([facility]) MEDICARE ADVANTAGE MCR ([facility]) Nov 09, [id number] SIMI COVARRUBIAS PATIENT Selected Encounter This section includes the information on record at [place] for the Encounter. Date/Time Encounter Type Encounter Description Reason Provider Source Aug 25, 2019 12:00 AM Outpatient Encounter EVENT ([facility]OR[facility] Encounter Template Text not used by [place] Assessments - Encounter Diagnoses No Data Provided [...] 15, 2019 12:00 PM [facility]INE [facility] Sep 22, 2019 10:00 AM AMBULATORY - NONE [facility] Sep 23, 2019 11:00 AM AMBULATORY - NONE [facility] Oct 17, 2019 03:00 PM AMBULATORY - NONE [facility] Oct 20, 2019 10:00 AM AMBULATORY - NONE [facility] Nov 10, 2019 12:00 PM [facility]ULATORY - MEDIC[facility] Nov 16, 2019 02:00 PM AMBULATORY - SURGERY [facility] Nov 16, 2019 03:00 PM AMBULATORY - NONE [facility] Nov 17, 2019 10:00 AM AM[facility]ORY - NONE [facility] Dec 01, 2019 11:30 AM AMBULATORY - MEDICINE [facility] IN Dec 14, 2019 03:00 PM AMBULATORY - NONE [facility] Dec 15, 2019 01:00 PM AMBULATORY - NONE [facility] Jan 12, 2020 10:00 AM AMBULATORY - NONE [facility] Jan 26, 2020 03:00 PM AMBULATORY - NONE [facility] Surgical Procedures: All associated to the encounter No Data Provided for This Section Lab Results: +/- 30 days of the encounter This section includes the Chemistry and Hematology Lab R esults on record with [place] for the patient. Radiology Reports and Pathology Report s are provided separately, in subsequent sections. Lab Results This section contains the Chemistry/Hematology Results anushka t were resulted 30 days before or 30 days after the date of the Encounter. Date/Time Source Result Type Result - Unit Interpretation Reference Range Comment Sep 15, 2019 11:44 AM [facility] BASIC METABOLIC PANEL Specimen Type: PLASMA No comment entered. *CREATININE 1.59 mg/dL H 0.7-1.3 UREA NITROGEN mg/dL 30 mg/dL H 9-25 GLUCOSE 151 mg/dL H 72-99 SODIUM 139 mEq/L 136-145 POTASSIUM 3.9 mEq/L 3.5-5.0 CALCIUM (mg/dL) 9.8 mg/dL 8.4-10.4 CHLORIDE 101 mEq/L 98-107 CO2 31 mEq/L 22-31 EGFR 42.9 Sep 15, 2019 11:44 AM [facility] HEMOGLOBIN A1C Specimen [...] patient. The data comes from a ll [place] treatment facilities. It does not list Allergies/ADRs that were removed or entered in error. Some allergies/ADRs may be reported in t Immunization section. Allergen Event Date Event Type Reaction(s) Severity Source LISINOPRIL Dec 01, 2017 Propensity to adverse reactions to drug (disorder) Renal impairment [facility] METFORMIN Dec 01, 2017 Propensity to adverse reactions to drug (disorder) Renal impairment [facility] Medications: VA dispensed (-15 months) and Non-VA Documented (Obtained Outside A) Section Date Range: 1) prescriptions processed by a [place] pharmacy in the last 15 m [facility], and 2) all medications recorded in the [place] medical record as "non-VA medic ations". Pharmacy terms refer to [place] pharmacy's work on prescriptions. VA patient s [...] TIMES A DAY 400 Sep 12, 2020 [id number] Feb 29, 2020 [facility] ROSINA PLUS (GLUCOSE) TEST STRIP Discontinued USE 1 STRIP FOR TESTING FOUR TIMES A DAY 400 Sep 15, 2019 [id number] Jun 13, 2019 [facility] ALCOH[facility] PREP PAD Discontinued USE 1 PAD ON SKIN FOUR TIMES A DAY 40 0 Apr 25, 2020 [id number] Nov 29, 2019 [facility] [place] ALCOHOL PREP PAD Discontinued USE 1 PAD ON SKIN FOUR TIMES A DAY 40 0 Sep 15, 2019 [id number] Apr 18, 2019 YARAELEUTERIO Laron [facility] ALLOPURINOL 100MG TAB Active TAKE ONE TABLET BY MOUTH ONCE A DAY FOR GOUT. TAKE WITH PLENTY OF WATER 90 Sep 23, 2020 [id number] Mar 05, 2020 SILVINA CHAMBERS [facility] ALLOPURINOL 100MG TAB Discontinued TAKE ONE TABLET BY MOUTH ONCE A DAY FOR GOUT. TAKE WITH PLENTY OF WATER 90 Dec 30, 2019 [id number] Sep 17, 2019 THOM SHARPE [facility] [facility] ALOGLIPTIN 12.5MG TAB Active TAKE ONE TABLET BY MOUTH O NCE A DAY FOR DIABETES 90 Sep 12, 2020 [id number] Mar 04, 2020 ELEUTERIO LIVINGSTON [facility] [place] [facility] ALOGLIPTIN 12.5MG TAB Discontinued TAKE ONE TABLET BY MOUTH ONCE A DAY FOR DIABETES 90 Dec 22, 2019 [id number] Jun 18, 2019 BALTRUSAITIS,ELEUTERIO Larry [facility] AMLODIPINE BESYLATE 10MG TAB Discontinued TAKE ONE TA BLET BY MOUTH EVERY MORNING FOR HEART/BLOOD PRESSURE 90 Jun 10, 2019 [id number] Feb 25, 2019 MONIKA HAMMER [facility] [place] [facility] AMLODIPINE BESYLATE 10MG TAB TAKE ONE TA BLET BY MOUTH EVERY MORNING FOR HEART/BLOOD PRESSURE 90 Apr 12, 2020 [id number] Feb 10, 2020 SILVINA CHAMBERS [facility] ASPIRIN 81MG TAB,CHEWABLE Non-VA CHEW ONE TABLET BY MOUTH ONCE A DAY Non-VA Documented by: MEGAN HAWK nted at[facility] ATORVASTATIN CA 20MG TAB Active TAKE ONE TABLET BY MOUTH ONCE A DAY FOR CHOLESTEROL. REPORT ANY UNEXPLAINED MUSCLE PAIN OR WEAKNESS TO YOUR DOCTOR. 90 Jan 02, 2021 [id number] March 24, 2020 [facility] ATORVASTATIN CA 40MG TAB Discontinued TAKE ONE-HALF T ABLET BY MOUTH AT BEDTIME FOR CHOLESTEROL. REPORT ANY UNEXPLAINED MUSCLE PAIN OR WEAKNESS TO YOUR DOCTOR. 45 Jul 15, 2020 [id number] Oct 14, 2019 REYESTHOM [facility] [place] [facility] ATORVASTATIN CA 40MG TAB Discontinued TAKE ONE-HALF T ABLET BY MOUTH AT BEDTIME FOR CHOLESTEROL. REPORT ANY UNEXPLAINED MUSCLE PAIN OR WEAKNESS TO YOUR DOCTOR. 45 Oct 12, 2019 [id number] Jul 16, 2019 REYESTHOM [facility] [place] [facility] CALCIUM CARBONATE 500MG TAB,CHEWABLE Non-VA CHEW ONE TABLET BY MOUTH PRN Non-VA Documented by: THOM CHAMBERS Docume nted at: [facility] CHLORTHALIDONE 25MG TAB Active TAKE ONE TABLET BY MOUTH ONCE A DAY 90 Jul 01, 2020 [id number] March 19, 2020 MONIKA HAMMER [facility] [place] [facility] CHLORTHALIDONE 25MG TAB Discontinued TAKE ONE TABLET BY MOUTH ONCE A DAY 90 Jun 16, 2019 [id number] Apr 12, 2019 MONIKA HAMMER [facility] [place] [facility] CHOLECALCIFEROL 1000UNT TAB Non-VA TAKE ONE TABLET BY MOUTH EVERY OTHER DAY Non-VA Docume nted by: MEGAN HAWK Docume nted at: [facility] CYANOCOBALAMIN 1000MCG/ML INJ Active INJECT 100 0 MCG (1 ML) INTRAMUSCULARLY EVERY MONTH FOR B12 SUPPLEMENTATION. 3 Nov 03, 2020 [id number] Apr 23, 2020 [facility] [place] [facility] CYANOCOBALAMIN 1000MCG/ML INJ Discontinued INJECT 100 0 MCG (1 ML) INTRAMUSCULARLY EVERY MONTH FOR B12 SUPPLEMENTATION. 3 Nov 17 0 [id number] Aug 07, 2019 [facility] [place] [facility] DIPHENHYDRAMINE HCL 25MG CAP Non-VA TAKE 1 CAPSULE BY MOUTH PRN Non-VA Documented by: THOM CHAMBERS Docume nted at: [facility] DOCUSATE NA 100MG CAP No n-VA TAKE 2 CAPSULES BY MOUTH ONCE A DAY Non-VA Documented by: THOM CHAMBERS Docsammi nted at: [facility] FISH OIL 1000MG (500MG DHA/EPA) CAP,ORAL Non-VA TAKE 1 CAPSULE BY MOUTH ONCE A DAY Non-VA Documented by: MEGAN HAWK Docume nted at: [facility] GABAPENTIN 100MG CAP Active TAKE 1 CAPSULE BY M OUTH EVERY MORNING AND TAKE 1 CAPSULE BY MOUTH AT NOON AND TAKE 2 CAPSULES BY MOUTH AT BEDTIME 360 Jul 06, 2020 [id number] March 31, 2020 ELEUTERIO LIVINGSTON [facility] [place] [facility] GLUCAGON 1MG/GABRIELLA INJ,EMERGENCY KIT INJEC T 1MG SUBCUTANEOUSLY NEEDED FOR SEVERE HYPOGLYCEMIA 1 Nov 30, 2019 [id number] Nov 03, 2019 REYES [facility] [place] [facility] INSULIN,ASPART,HUMAN 100U/ML,NOVOLOG,FLEXPEN,3ML Active: On Hold INJECT 20 UNITS SUBCUTANEOUSLY BEFORE BREAKFAST AND INJECT 20 UNITS BEFORE LUNCH AND INJECT 26 UNITS BEFORE SUPPER AND INJECT 24 UNITS SNACK FOR BLOOD SUGAR CONTROL. ADMINISTER 10 MINUTES BEFORE FOOD DIRECTED. REFRIGERATE UN-OPENED PENS. DISCARD CARTRIDGE 28 DAYS AFTER OPENING. PLUS CORRECTION Mar 01, 2021 [id number] ELEUTERIO LIVINGSTON [facility] INSULIN,ASPART,HUMAN 100U/ML,NOVOLOG,FLEXPEN,3ML Discontinue d INJECT 20 UNITS SUBCUTANEOUSLY BEFORE BREAKFAST AND INJECT 20 UNITS BEFORE LUNCH AND INJECT 24 UNITS BEFORE SUPPER AND INJECT 24 UNITS SNACK FOR BLOOD SUGAR CONTROL. ADMINISTER 10 MINUTES BEFORE FOOD DIRECTED. REFRIGERATE UN-OPENED PENS. DISCARD CARTRIDGE 28 DAYS AFTER OPENING. PLUS CORRECTION 30 Jan 26, 2021 [id number] Jan 28, 2020 ELEUTERIO LIVINGSTON [facility] INSULIN,ASPART,HUMAN 100U/ML,NOVOLOG,FLEXPEN,3ML Discontinue d INJECT 20 UNITS SUBCUTANEOUSLY BEFORE MEALS FOR BLOOD SUGAR CONTROL. ADMINISTER 10 MINUTES BEFORE FOOD DIRECTED. REFRIGERATE UN-OPENED PENS. DISCARD CARTRIDGE 28 DAYS AFTER OPENING. PLUS CORRECTION FOR BLOOD SUGAR CONTROL. ADMINISTER 10 MINUTES BEFORE FOOD DIRECTED. REFRIGERATE UN-OPENED PENS. DISCARD CARTRIDGE 28 DAYS AFTER OPENING. PLUS CORRECTION 30 Nov 16, 2020 [id number] Nov 16 ELEUTERIO LIVINGSTON [facility] [place] [facility] INSULIN,ASPART,HUMAN 100U/ML,NOVOLOG,FLEXPEN,3ML Discontinue d INJECT 15 UNITS SUBCUTANEOUSLY EVERY MORNING BEFORE MEAL AND INJECT 15 UNITS WITH LUNCH AND INJECT 15 UNITS WITH SUPPER AND INJECT 20 UNITS WITH SNACK FOR BLOOD SUGAR CONTROL. ADMINISTER 10 MINUTES BEFORE FOOD DIRECTED. REFRIGERATE UN-OPENED PENS. DISCARD CARTRIDGE 28 DAYS AFTER OPENING. Dec 22, 2019 [id number] Oct 12, 2019 ELEUTERIO LIVINGSTON [facility] [place] [facility] INSULIN,GLARGINE,HUMAN 100 UNIT/ML INJ,SOLOSTAR,3ML Active INJECT 50 UNITS SUBCUTANEOUSLY EVERY MORNING FOR BLOOD SUGAR CONTROL. ADMINISTER AT SAME TIME EACH DAY DIRECTED. DISCARD ANY OPEN CARTRIDGE AFTER 28 DAYS. Sep 23, 2020 [id number] Jan 28, 2020 ELEUTERIO LIVINGSTON [facility] INSULIN,GLARGINE,HUMAN 100 UNIT/ML INJ,SOLOSTAR,3ML Disconti nued INJECT 45 UNITS SUBCUTANEOUSLY EVERY MORNING FOR BLOOD SUGAR CONTROL. ADMINISTER AT SAME TIME EACH DAY DIRECTED. DISCARD ANY OPEN CARTRIDGE AFTER 28 DAYS. Oct 23, 2019 [id number] Aug 30, 2019 ELEUTERIO LIVINGSTON [facility] LACTOBACILLUS ACIDOPHILUS TAB,CHEWABLE Non-VA CHEW ONE TABLET BY MOUTH ONCE A DAY Non-VA Documented by: MEGAN HAWK nted at: [facility] LANCET,SOFTCLIX Active USE LANCET 5 TIME S A DAY FOR TESTING BLOOD GLUCOSE DIRECTED Dec 28, 2020 [id number] March 19, 2020 ELEUTERIO LIVINGSTON [facility] [place] [facility] LANCET,SOFTCLIX Discontinued USE LANCET 5 TIME S A DAY FOR TESTING BLOOD GLUCOSE DIRECTED 500 Jan 11, 2020 [id number] Sep 29, 2019 ELEUTERIO PATEL [facility] [place] [facility] MAGNESIUM OXIDE 400MG TAB Non-VA TAKE ONE TABLET BY MOUTH ONCE A DAY Non-VA Documented by: MEGAN HAWK nted at: [facility] METOPROLOL SUCCINATE 200MG TAB,SA TAKE O NE-HALF TABLET BY MOUTH EVERY EVENING FOR HEART/BLOOD PRESSURE. SWALLOW WHOLE, DO NOT CRUSH OR CHEW (TABLETS MAY BE CUT IN HALF). 45 March 18, 2020 [id number] Dec 28, 2019 STANISLAV HAMMER [facility] NEEDLE 22G 1.5IN USE NEEDLE FOR EVERY MONTH 1 Nov 12, 2019 [id number] Feb 07, 2019 ADELAIDA CLIFFORD [facility] [place] [facility] NEEDLE,PEN 31G,5MM Discontinued USE NEEDLE SUBCUTANE OUSLY 5 TIMES A DAY - THIS IS A SINGLE USE NEEDLE AND SHOULD BE DISCARDED AFTER USE 500 Dec 21, 2019 [id number] Sep 28, 2019 ELEUTERIO LIVINGSTON [facility] POTASSIUM CHLORIDE 10MEQ TAB,SA Active TAKE TWO TABLETS BY MOUTH TWO TIMES A DAY FOR POTASSIUM SUPPLEMENTATIONTAKE WITH FOOD 360 Dec 12, 2020 [id number] Mar 02, 2020 [facility] POTASSIUM CHLORIDE 10MEQ TAB,SA Discontinued TAKE ONE TABLET BY MOUTH THREE TIMES A DAY WITH MEALS FOR POTASSIUM SUPPLEMENTATIONTAKE WITH FOOD 180 March 16, 2020 [id number] Nov 29, 2019 ELEUTERIO LIVINGSTON FREDERICK Charly [facility] [place] [facility] POTASSIUM CHLORIDE 10MEQ TAB,SA Discontinued TAKE ONE TABLET BY MOUTH THREE TIMES A DAY WITH MEALS FOR POTASSIUM SUPPLEMENTATIONTAKE WITH FOOD 180 May 26, 2019 [id number] Jan 24, 2019 [facility] [place] [facility] SYRINGE 2.5-3ML/NDL 25G 1IN Active USE 1 SYRINGE EVERY MONTH 3 Feb 21, 2021 [id number] March 20, 2020 THOM CHAMBERS [facility] SYRINGE 2.5-3ML/NDL 25G 1IN Discontinued USE 1 SYRINGE EVERY Thu 3 March 18, 2020 [id number] Dec 21, 2019 THOM CHAMBERS [facility] TESTOSTERONE CYPIONATE 200MG/ML INJ,1ML (IN OIL) Active INJECT 200 MG (1 ML) INTRAMUSCULARLY EVERY MONTH FOR HORMONE REPLACEMENT 1 May 18, 2020 [id number] April 06, 2020 ADELAIDA CLIFFORD [facility] [place] [facility] TESTOSTERONE CYPIONATE 200MG/ML INJ,1ML (IN OIL) Discontinue d INJECT 200 MG (1 ML) INTRAMUSCULARLY EVERY MONTH FOR HORMONE REPLACEMENT 1 March 25, 2020 [id number] Oct 25, 2019 ADELAIDA CLIFFORD [facility] TESTOSTERONE CYPIONATE 200MG/ML INJ,1ML (IN OIL) Discontinue d INJECT 200 MG (1 ML) INTRAMUSCULARLY EVERY MONTH FOR HORMONE REPLACEMENT 1 Nov 06, 2019 [id number] Sep 25, 2019 ADELAIDA CLIFFORD [facility] [place] [facility] TESTOSTERONE CYPIONATE 200MG/ML INJ,1ML (IN OIL) Discontinue d INJECT 200 MG (1 ML) INTRAMUSCULARLY EVERY MONTH FOR HORMONE REPLACEMENT 1 May 14, 2019 [id number] Apr 10, 2019 ADELAIDA CLIFFORD [facility] TRAMADOL HCL 50MG TAB Active TAKE 1 TO 2 TABLET S BY MOUTH EVERY 6 HOURS NEEDED FOR PAIN 180 Jul 21, 2020 [id number] March 30, 2020 [facility] TRAMADOL HCL 50MG TAB Discontinued TAKE 1 TO 2 TABLET S BY MOUTH EVERY 6 HOURS NEEDED FOR PAIN 180 Jun 06, 2020 [id number] Jan 11, 2020 [facility] TRAMADOL HCL 50MG TAB Discontinued TAKE 1 TO 2 TABLET S BY MOUTH EVERY 6 HOURS NEEDED FOR PAIN 180 Jun 06, 2020 [id number] Dec 06, 2019 [facility] TRAMADOL HCL 50MG TAB Discontinued TAKE 1 TO 2 TABLET S BY MOUTH EVERY 6 HOURS NEEDED FOR PAIN 180 Dec 14, 2019 [id number] Nov 15, 2019 DANTE VALVERDE [facility] [place] [facility] TRAMADOL HCL 50MG TAB Discontinued TAKE 1 TO 2 TABLET S BY MOUTH EVERY 6 HOURS NEEDED FOR PAIN 180 Jul 06, 2019 [id number] May 26, 2019 NELLA GROVE [facility] [place] [facility] TRIAMCINOLONE ACETONIDE 0.5% CREAM,TOP Active A PPLY SPARINGLY TO AFFECTED AREA ONCE A DAY NEEDED FOR RASH 45 Jul 15, 2020 [id number] April 01 0 THOM CHAMBERS [facility] [place] [facility] TRIAMCINOLONE ACETONIDE 0.5% CREAM,TOP Discontinued A PPLY SPARINGLY TO AFFECTED AREA ONCE A DAY NEEDED FOR RASH 45 Oct 12, 2019 [id number] Jul REYES,DANA [facility] [place] [facility] Problems (Conditions): All [...] Source Basal cell carcinoma of scalp Active [id number] THOM CHAMBERS [facility] Chronic back pain Active [id number] TERRIE CHAMBERS [facility] Chronic kidney disease stage 3 Active [id number] THOM CHAMBERS [facility] [place] [facility] Constipation Active [id number] THOM CHAMBERS [facility] Diabetes mellitus Active [id number] THOM CHAMBERS [facility] [place] [facility] Diabetic neuropathy Active [id number] Neha CHAMBERS [facility] Essential hypertension Active [id number] THOM CHAMBERS [facility] Hyperlipidemia Active [id number] THOM CHAMBERS [facility] [place] [facility] Hypogonadism Active [id number] THOM CHAMBERS [facility] Sleep apnea Active [id number] THOM CHAMBERS [facility] [place] [facility] Radiology Reports: +/- 30 days of the encounter No Data Provided for This Section Pathology Reports: +/- 30 days of the encounter No Data Provided for This Section Encounter Notes: All associated encounter notes No Data Provided for This Section
--- OUTSIDE RECORDS SUMMARY | 2020-04-18 09:58 | XMS REPORT | Encounter Summary ---
Author Author Department of [facility] SIMI palacio Organization Department of [facility] Address [address] [place] [phone] Phone Unavailable Care Team Providers Care Tabulating Clerk Name Role Phone THOM CHAMBERS PCP Unavailable [...] [employer] REP (R) MEDICARE ADVANTAGE [facility] ([facility]) Nov 09, 2017 [id number] [phone] SIMI COVARRUBIAS PATIENT [employer] REP (WNR) MEDICARE [facility] (R) Nov 09, 2017 [id number] [phone] SIMI COVARRUBIAS PATIENT [employer] MCR (WNR) MEDICARE ADVANTAGE MCR (R) Nov 09, 2019 [id number] SIMI COVARRUBIAS PATIENT Selected Encounter This section includes the information on record at [place] for the Encounter. Date/Time Encounter Type Encounter Description Reason Provider Source Aug 25, 2019 10:00 AM OFFICE/OUTPATIENT VISIT EST PRIMARY CARE/M EDICINE ICD-10-CM R86.1 Abn lev hormones in specimens from male genital organs with Provider Comments: Hypogonadism (SCT [id number]) THOM CHAMBERS [facility] IHE Encounter Template Text not used by [place] Assessments - Encounter Diagnoses This section includes the primary and secondary diag noses documented for the Encounter. Date/Time Primary/Secondary Diagnosis Diagnosis Name Provider Source Aug 25, 2019 11:38 AM PRIMARY Abn lev hormones i n specimens from male genital organs KILLIAN DAVID [facility] Aug 25, 2019 11:38 AM SECONDARY Encounter for immunization KILLIAN HUNT [facility] Plan of Treatment: Future Appointments (+ 6 months) and Future Tests (+/- 45 day s) The Plan of Treatment section includes future care activities for the patient fr om all [place] treatment facilities. This section includes future appointments and fu ture orders which are active, pending or scheduled. Future Appointments This section includes appointments that were scheduled t o occur 6 months from the date of the Encounter, up to a maximum of 20 appointme nts. The data comes from all [place] treatment facilities. Appointment Date/Time Appointment Type Appointment Facili ty Name Sep 15, 2019 12:00 PM AMBULATORY - MEDICINE [facility] Sep 22, 2019 10:00 AM AMBULATORY - NONE [facility] Sep 23, 2019 11:00 AM AMBULATORY - NONE [facility] Oct 17, 2019 03:00 PM AMBULATORY - NONE [facility] Oct 20, 2019 10:00 AM AMBULATORY - NONE [facility] Nov 10, 2019 12:00 PM AMBULATORY - MEDICINE [facility] INIC Nov 16, 2019 02:00 PM [facility] Nov 16, 2019 03:00 PM AMBULATORY - NONE [facility] Nov 17, 2019 10:00 AM AMBULATORY - NONE [facility] Dec 01, 2019 11:30 AM AMBULATORY - MEDICINE [facility] IN Dec 14, 2019 03:00 PM AMBULATORY - NONE [facility] Dec 15, 2019 01:00 PM AM[facility] NONE [facility] Jan 12, 2020 10:00 AM AMBULATORY - NONE [facility] Jan 26, 2020 03:00 PM AMBULATORY - NONE [facility] Surgical Procedures: All [...] Range Comment Sep 15, 2019 11:44 AM [facility] BASIC METABOLIC PANEL Specimen Type: PLASMA No comment entered. *CREATININE 1.59 mg/dL H 0.7-1.3 UREA NITROGEN mg/dL 30 mg/dL H 9-25 GLUCOSE 151 mg/dL H 72-99 SODIUM 139 mEq/L 136-145 POTASSIUM 3.9 mEq/L 3.5-5.0 CALCIUM (mg/dL) 9.8 mg/dL 8.4-10.4 CHLORIDE 101 mEq/L 98-107 CO2 31 mEq/L 22-31 EGFR 42.9 Sep 15, 2019 11:44 AM [facility] HEMOGLOBIN A1C Specimen Type: BLOOD No comment entered. HEMOGLOBIN A1C 9.9 % H 4.0-6.0 Vital Signs: All taken on the encounter date This section contains inpatient and outpatient Vital Signs collected on the date of the Encounter. Date/Time Temperature Pulse Blood Pressure Respiratory Rate SP02 Pa in Height Weight Body Mass Index Source Aug 25, 2019 11:19 AM 138/66 mm[Hg] [facility] Aug 25, 2019 11:05 AM 98.4 F 48 /min 148/64 mm[Hg] 20 /min 92 % 7 178.2 lb 30 [facility] Immunizations: All administered on the encounter date This section contains immunizations associated to the Encounter. Immunization Series Date Issued Reaction Comments INFLUENZA, TRIVALENT, ADJUVANTED Aug 25, 2019 PNEUMOCOCCAL CONJUGATE PCV 13 Aug 25, 2019 Social History: Smoking Status (Most current) and Tobacco Use (All prior to enco unter date) This section includes the most current, and the historical, smoking and tobacco- related health factors from the [place] facility where the Encounter took place. Current Smoking Status This section includes the most current smoking, or tobacco -related health factor, from the [place] facility where the Encounter took place. Date/Time Current Smoking Status Comment Facility Nov 03, 2018 07:59 AM [place]-TOBACCO QUIT 15 YRS OR MORE [facility] Tobacco Use History This section includes a history of the smoking, or tobacco -related health factors, that were collected on or before the date of the Encoun ter. The data comes from the [place] facility where the Encounter took place. Date/Time Smoking Status/Tobacco Use Comment Madeline monroy Nov 03, 2018 07:59 AM VA-TOBACCO QUIT 15 YRS OR MORE [facility] Oct 23, 2017 07:35 AM TOBACCO LIFETIME NON-USER [facility] Advance Directives: All historical and current No Data Provided for This Section Allergies and Adverse Reactions (ADRs): All historical and current Section Date Range: From patient's date of to the date document was create d. This section includes Allergies and Adverse Reactions (ADR s) on record with VA for the patient. The data comes from a ll [place] treatment facilities. It does not list Allergies/ADRs that were removed or entered in error. Some allergies/ADRs may be reported in t he Immunization section. Allergen Event Date Event Type Reaction(s) Severity Source LISINOPRIL Dec 01, 2017 Propensity to adverse reactions to drug (disorder) Renal impairment [facility] 15 METFORMIN Dec 01, 2017 Propensity to adverse reactions to drug (disorder) Renal impairment [facility] 15 Medications: VA dispensed (-15 months) and Non-VA Documented (Obtained Outside A) Section Date Range: 1) prescriptions processed by a VA pharmacy in the last 15 m [facility], and 2) all medications recorded in the [place] medical record as "non-VA medic ations". Pharmacy terms refer to [place] pharmacy's work on prescriptions. VA patient s are advised to take their medications as instructed by their health care team. The data comes from all [place] treatment facilities. Glossary of Pharmacy Terms:Active = A prescription that can be filled at the local [place] pharmacy.Active: On Hold = An active prescription that will not be filled until pharmacy resolves the issue.Active: Susp = An active prescription that is not scheduled to be filled yet.Clinic Order = A medication received during a visit to a [place] clinic or emergency department (currently not available).Discontinued [...] TIMES A DAY 400 Sep 12, 2020 [id number] Feb 29, 2020 BALTRUSAITISREGGIE Andry Larry [facility] ACCU-CHEK ROSINA PLUS (GLUCOSE) TEST STRIP Discontinued USE 1 STRIP FOR TESTING FOUR TIMES A DAY 400 Sep 15, 2019 [id number] Jun 13, 2019 BALTRUSAI ELEUTERIO LEE [facility] ALCOHOL PREP PAD Discontinued USE 1 PAD ON SKIN FOUR TIMES A DAY 40 0 Apr 25, 2020 [id number] Nov 29, 2019 ELEUTERIO LIVINGSTON [facility] ALCOHOL PREP PAD Discontinued USE 1 PAD ON SKIN FOUR TIMES A DAY 40 0 Sep 15, 2019 [id number] Apr 18, 2019 ELEUTERIO LIVINGSTON [facility] ALLOPURINOL 100MG TAB Active TAKE ONE TABLET BY MOUTH ONCE A DAY FOR GOUT. TAKE WITH PLENTY OF WATER 90 Sep 23, 2020 [id number] Mar 05, 2020 SILVINA CHAMBERS [facility] ALLOPURINOL 100MG TAB Discontinued TAKE ONE TABLET BY MOUTH ONCE A DAY FOR GOUT. TAKE WITH PLENTY OF WATER 90 Dec 30, 2019 [id number] Sep 17, 2019 THOM SOLIS [facility] ALOGLIPTIN 12.5MG TAB Active TAKE ONE TABLET BY MOUTH O NCE A DAY FOR DIABETES 90 Sep 12, 2020 [id number] Mar 04, 2020 ELEUTERIO LIVINGSTON [facility] ALOGLIPTIN 12.5MG TAB Discontinued TAKE ONE TABLET BY MOUTH ONCE A DAY FOR DIABETES 90 Dec 22, 2019 [id number] Jun 18, 2019 ELEUTERIO LIVINGSTON [facility] AMLODIPINE BESYLATE 10MG TAB Discontinued TAKE ONE TA BLET BY MOUTH EVERY MORNING FOR HEART/BLOOD PRESSURE 90 Jun 10, 2019 [id number] Feb 25, 2019 MONIKA RIVERA [facility] AMLODIPINE BESYLATE 10MG TAB TAKE ONE TA BLET BY MOUTH EVERY MORNING FOR HEART/BLOOD PRESSURE 90 Apr 12, 2020 [id number] Feb 10, 2020 SILVINA CHAMBERS [facility] ASPIRIN 81MG TAB,CHEWABLE Non-VA CHEW ONE TABLET BY MOUTH ONCE A DAY Non-VA Documented by: MEGAN HAWK nted at: [facility] ATORVASTATIN CA 20MG TAB Active TAKE ONE TABLET BY MOUTH ONCE A DAY FOR CHOLESTEROL. REPORT ANY UNEXPLAINED MUSCLE PAIN OR WEAKNESS TO YOUR DOCTOR. 90 Jan 02, 2021 [id number] March 24, 2020 [facility] ATORVASTATIN CA 40MG TAB Discontinued TAKE ONE-HALF T ABLET BY MOUTH AT BEDTIME FOR CHOLESTEROL. REPORT ANY UNEXPLAINED MUSCLE PAIN OR WEAKNESS TO YOUR DOCTOR. 45 Jul 15, 2020 [id number] Oct 14, 2019 THOM CHAMBERS [facility] ATORVASTATIN CA 40MG TAB Discontinued TAKE ONE-HALF T ABLET BY MOUTH AT BEDTIME FOR CHOLESTEROL. REPORT ANY UNEXPLAINED MUSCLE PAIN OR WEAKNESS TO YOUR DOCTOR. 45 Oct 12, 2019 [id number] Jul 16, 2019 THOM CHAMBERS [facility] CALCIUM CARBONATE 500MG TAB,CHEWABLE Non-VA CHEW ONE TABLET BY MOUTH PRN Non-VA Documented by: THOM CHAMBERS nted at: [facility] CHLORTHALIDONE 25MG TAB Active TAKE ONE TABLET BY MOUTH ONCE A DAY 90 Jul 01, 2020 [id number] March 19, 2020 MONIKA HAMMER [facility] CHLORTHALIDONE 25MG TAB Discontinued TAKE ONE TABLET BY MOUTH ONCE A DAY 90 Jun 16, 2019 [id number] Apr 12, 2019 MONIKA HAMMER [facility] CHOLECALCIFEROL 1000UNT TAB Non-VA TAKE ONE TABLET BY MOUTH EVERY OTHER DAY Non-VA Docume nted by: MEGAN HAWK Docume nted at: [facility] CYANOCOBALAMIN 1000MCG/ML INJ Active INJECT 100 0 MCG (1 ML) INTRAMUSCULARLY EVERY MONTH FOR B12 SUPPLEMENTATION. 3 Nov 03, 2020 [id number] Apr 23, 2020 THOM CHAMBERS [facility] CYANOCOBALAMIN 1000MCG/ML INJ Discontinued INJECT 100 0 MCG (1 ML) INTRAMUSCULARLY EVERY MONTH FOR B12 SUPPLEMENTATION. 3 Nov 17 0 [id number] Aug 07, 2019 THOM CHAMBERS [facility] DIPHENHYDRAMINE HCL 25MG CAP Non-VA TAKE 1 CAPSULE BY MOUTH PRN Non-VA Documented by: THOM CHAMBERS nted at: [facility] DOCUSATE NA 100MG CAP No n-VA TAKE 2 CAPSULES BY MOUTH ONCE A DAY Non-VA Documented by: THOM CHAMBERS nted at: [facility] FISH OIL 1000MG (500MG DHA/EPA) CAP,ORAL Non-VA TAKE 1 CAPSULE BY MOUTH ONCE A DAY Non-VA Documented by: MEGAN HAWK nted at: [facility] GABAPENTIN 100MG CAP Active TAKE 1 CAPSULE BY M OUTH EVERY MORNING AND TAKE 1 CAPSULE BY MOUTH AT NOON AND TAKE 2 CAPSULES BY MOUTH AT BEDTIME 360 Jul 06, 2020 [id number] March 31, 2020 ELEUTERIO LIVINGSTON [facility] GLUCAGON 1MG/GABRIELLA INJ,EMERGENCY KIT INJEC T 1MG SUBCUTANEOUSLY NEEDED FOR SEVERE HYPOGLYCEMIA 1 Nov 30, 2019 [id number] Nov 03, 2019 THOM CHAMBERS [facility] INSULIN,ASPART,HUMAN 100U/ML,NOVOLOG,FLEXPEN,3ML Active: On Hold INJECT 20 UNITS SUBCUTANEOUSLY BEFORE BREAKFAST AND INJECT 20 UNITS BEFORE LUNCH AND INJECT 26 UNITS BEFORE SUPPER AND INJECT 24 UNITS SNACK FOR BLOOD SUGAR CONTROL. ADMINISTER 10 MINUTES BEFORE FOOD DIRECTED. REFRIGERATE UN-OPENED PENS. DISCARD CARTRIDGE 28 DAYS AFTER OPENING. PLUS CORRECTION Mar 01, 2021 [id number] ELEUTERIO LIVINGSTON [facility] INSULIN,ASPART,HUMAN 100U/ML,NOVOLOG,FLEXPEN,3ML Discontinue d INJECT 20 UNITS SUBCUTANEOUSLY BEFORE BREAKFAST AND INJECT 20 UNITS BEFORE LUNCH AND INJECT 24 UNITS BEFORE SUPPER AND INJECT 24 UNITS SNACK FOR BLOOD SUGAR CONTROL. ADMINISTER 10 MINUTES BEFORE FOOD DIRECTED. REFRIGERATE UN-OPENED PENS. DISCARD CARTRIDGE 28 DAYS AFTER OPENING. PLUS CORRECTION 30 Jan 26, 2021 [id number] Jan 28, 2020 ELEUTERIO LIV[facility]STON [facility] [...] OPENING. PLUS CORRECTION 30 Nov 16, 2020 [id number] Nov 16 ELEUTERIO LIVINGSTON [facility] INSULIN,ASPART,HUMAN 100U/ML,NOVOLOG,FLEXPEN,3ML Discontinue d INJECT 15 UNITS SUBCUTANEOUSLY EVERY MORNING BEFORE MEAL AND INJECT 15 UNITS WITH LUNCH AND INJECT 15 UNITS WITH SUPPER AND INJECT 20 UNITS WITH SNACK FOR BLOOD SUGAR CONTROL. ADMINISTER 10 MINUTES BEFORE FOOD DIRECTED. REFRIGERATE UN-OPENED PENS. DISCARD CARTRIDGE 28 DAYS AFTER OPENING. Dec 22, 2019 [id number] Oct 12, 2019 ELEUTERIO LIVINGSTON [facility] INSULIN,GLARGINE,HUMAN 100 UNIT/ML INJ,SOLOSTAR,3ML Active INJECT 50 UNITS SUBCUTANEOUSLY EVERY MORNING FOR BLOOD SUGAR CONTROL. ADMINISTER AT SAME TIME EACH DAY DIRECTED. DISCARD ANY OPEN CARTRIDGE AFTER 28 DAYS. Sep 23, 2020 [id number] Jan 28, 2020 ELEUTERIO LIVINGSTON [facility] INSULIN,GLARGINE,HUMAN 100 UNIT/ML INJ,SOLOSTAR,3ML Disconti nued INJECT 45 UNITS SUBCUTANEOUSLY EVERY MORNING FOR BLOOD SUGAR CONTROL. ADMINISTER AT SAME TIME EACH DAY DIRECTED. DISCARD ANY OPEN CARTRIDGE AFTER 28 DAYS. Oct 23, 2019 [id number] Aug 30, 2019 ELEUTERIO LIVINGSTON [facility] LACTOBACILLUS ACIDOPHILUS TAB,CHEWABLE Non-VA CHEW ONE TABLET BY MOUTH ONCE A DAY Non-VA Documented by: [facility] LANCET,SOFTCLIX Active USE LANCET 5 TIME S A DAY FOR TESTING BLOOD GLUCOSE DIRECTED 500 Dec 28, 2020 [id number] March 19, 2020 CRYSTALUSAELEUTERIO QUIGLEY [facility] LANCET,SOFTCLIX Discontinued USE LANCET 5 TIME S A DAY FOR TESTING BLOOD GLUCOSE DIRECTED 500 Jan 11, 2020 [id number] Sep 29, 2019 YAYA ITELEUTERIO MICHEL [facility] MAGNESIUM OXIDE 400MG TAB Non-VA TAKE ONE TABLET BY MOUTH ONCE A DAY Non-VA Documented by: MEGAN HAWK nted at: [facility] METOPROLOL SUCCINATE 200MG TAB,SA TAKE O NE-HALF TABLET BY MOUTH EVERY EVENING FOR HEART/BLOOD PRESSURE. SWALLOW WHOLE, DO NOT CRUSH OR CHEW (TABLETS MAY BE CUT IN HALF). 45 March 18, 2020 [id number] Dec 28, 2019 STANISLAV HAMMER [facility] NEEDLE 22G 1.5IN USE NEEDLE FOR EVERY MONTH 1 Nov 12, 2019 [id number] Feb 07, 2019 ADELAIDA CLIFFORD [facility] NEEDLE,PEN 31G,5MM Discontinued USE NEEDLE SUBCUTANE OUSLY 5 TIMES A DAY - THIS IS A SINGLE USE NEEDLE AND SHOULD BE DISCARDED AFTER USE 500 Dec 21, 2019 [id number] Sep 28, 2019 ELEUTERIO LIVINGSTON [facility] POTASSIUM CHLORIDE 10MEQ TAB,SA Active TAKE TWO TABLETS BY MOUTH TWO TIMES A DAY FOR POTASSIUM SUPPLEMENTATIONTAKE WITH FOOD 360 Dec 12, 2020 [id number] Mar 02, 2020 [facility] POTASSIUM CHLORIDE 10MEQ TAB,SA Discontinued TAKE ONE TABLET BY MOUTH THREE TIMES A DAY WITH MEALS FOR POTASSIUM SUPPLEMENTATIONTAKE WITH FOOD 180 March 16, 2020 [id number] Nov 29, 2019 ELEUTERIO LIVINGSTON [facility] POTASSIUM CHLORIDE 10MEQ TAB,SA Discontinued TAKE ONE TABLET BY MOUTH THREE TIMES A DAY WITH MEALS FOR POTASSIUM SUPPLEMENTATIONTAKE WITH FOOD 180 May 26, 2019 [id number] Jan 24, 2019 [facility] [place] [facility] SYRINGE 2.5-3ML/NDL 25G 1IN Active USE 1 SYRINGE EVERY MONTH 3 Feb 21, 2021 [id number] March 20, 2020 [facility] SYRINGE 2.5-3ML/NDL 25G 1IN Discontinued USE 1 SYRINGE EVERY Thu 3 March 18, 2020 [id number] Dec 21, 2019 [facility] TESTOSTERONE CYPIONATE 200MG/ML INJ,1ML (IN OIL) Active INJECT 200 MG (1 ML) INTRAMUSCULARLY EVERY MONTH FOR HORMONE REPLACEMENT 1 May 18, 2020 [id number] April 06, 2020 ADELAIDA CLIFFORD [facility] TESTOSTERONE CYPIONATE 200MG/ML INJ,1ML (IN OIL) Discontinue d INJECT 200 MG (1 ML) INTRAMUSCULARLY EVERY MONTH FOR HORMONE REPLACEMENT 1 March 25, 2020 [id number] Oct 25, 2019 ADELAIDA CLIFFORD [facility] TESTOSTERONE CYPIONATE 200MG/ML INJ,1ML (IN OIL) Discontinue d INJECT 200 MG (1 ML) INTRAMUSCULARLY EVERY MONTH FOR HORMONE REPLACEMENT 1 Nov 06, 2019 [id number] Sep 25, 2019 ADELAIDA CLIFFORD [facility] TESTOSTERONE CYPIONATE 200MG/ML INJ,1ML (IN OIL) Discontinue d INJECT 200 MG (1 ML) INTRAMUSCULARLY EVERY MONTH FOR HORMONE REPLACEMENT 1 May 14, 2019 [id number] Apr 10, 2019 ADELAIDA CLIFFORD [facility] TRAMADOL HCL 50MG TAB Active TAKE 1 TO 2 TABLET S BY MOUTH EVERY 6 HOURS NEEDED FOR PAIN 180 Jul 21, 2020 [id number] March 30, 2020 NELLA [facility] TRAMADOL HCL 50MG TAB Discontinued TAKE 1 TO 2 TABLET S BY MOUTH EVERY 6 HOURS NEEDED FOR PAIN 180 Jun 06, 2020 [id number] Jan 11, 2020 ROSSY [facility] TRAMADOL HCL 50MG TAB Discontinued TAKE 1 TO 2 TABLET S BY MOUTH EVERY 6 HOURS NEEDED FOR PAIN 180 Jun 06, 2020 [id number] Dec 06, 2019 ROSSY [facility] TRAMADOL HCL 50MG TAB Discontinued TAKE 1 TO 2 TABLET S BY MOUTH EVERY 6 HOURS NEEDED FOR PAIN 180 Dec 14, 2019 [id number] Nov 15, 2019 D[facility]TE VAL[facility] TRAMADOL HCL 50MG TAB Discontinued TAKE 1 TO 2 TABLET S BY MOUTH EVERY 6 HOURS NEEDED FOR PAIN 180 Jul 06, 2019 [id number] May 26, 2019 [facility] TRIAMCINOLONE ACETONIDE 0.5% CREAM,TOP Active A PPLY SPARINGLY TO AFFECTED AREA ONCE A DAY NEEDED FOR RASH 45 Jul 15, 2020 [id number] April 01 0 THOM CHAMBERS [facility] TRIAMCINOLONE ACETONIDE 0.5% CREAM,TOP Discontinued A PPLY SPARINGLY TO AFFECTED AREA ONCE A DAY NEEDED FOR RASH 45 Oct 12, 2019 [id number] Jul [facility] Problems (Conditions): All historical and current Section Date Range: From patient's date of to the date document was create d. This section includes a list of Problems (Conditions) know n to [facility] for the patient. It includes both active and inacti ve problems (conditions). The data comes from all [place] treatment facilities. Problem Status Problem Code Date of Onset Date of Resolution Comm ent(s) Provider Source Basal cell carcinoma of scalp Active [id number] THOM CHAMBERS [facility] Chronic back pain Active [id number] TERRIE CHAMBERS Shellie [facility] Chronic kidney disease stage 3 Active 451089046 THOM CHAMBERS [facility] Constipation Active 86476624 THOM CHAMBERS [facility] Diabetes mellitus Active 02107153 [facility] Diabetic neuropathy Active 773974687 Neha CHAMBERS [facility] Essential hypertension Active 09568583 TERRIE CHAMBERSShellie MELLO [facility] Hyperlipidemia Active 45047879 THOM CHAMBERS EA [facility] Hypogonadism Active 90816835 THOM CHAMBERS [facility] VILLALBA [facility] Sleep apnea Active 76418861 THOM CHAMBERS [facility] Radiology Reports: +/- 30 days of the encounter No Data Provided for This Section Pathology Reports: +/- 30 days of the encounter No Data Provided for This Section Encounter Notes: All associated encounter notes This section contains the clinical notes associated to the Encounter. Date/Time Encounter Note(s) Provider Source Aug 25, 2019 11:05 AM NURSING OUTPATIENT NOTE: LOCAL TITLE: EK-NURSING CLINIC CHECK-IN STANDARD TITLE: NURSING OUTPATIENT NOTE DATE OF NOTE: AUG 25, 2019@11:05 ENTRY DATE: AUG 25, 2019@11:14:19 AUTHOR: BARBARA DUNCAN EXP COSIGNER: URGENCY: STATUS: COMPLETED EK-NURSING CLINIC CHECK-IN Has ADDENDA PRIMARY REASON FOR VISIT TODAY: [place] for testosterone injection; check if his BP monitor, and vaccinations. PATIENT'S GOAL/MISSION FOR THEIR HEALTH: "I want to mainitain or improve my health." ALLERGIES/ADR: METFORMIN, LISINOPRIL VITALS: DATE/TIME TEMP PULSE RESP BP PAIN WEIGHT PUL OX 08/25/19 @ 1105 98.4 48 20 148/64 7 178.2 92 REPEAT BP:138/66 REPRODUCTIVE HISTORY: Concerns regardng sexual/reproductive health: None LEARNING ASSESSMENT: Patient's preferred language for discussing health care is: [place] Today's learning assessment regarding patient's readiness to learn. Patient reads well. Barriers to Learning: Has no barriers to learning. Preferred Method of Learning: Reading Listening Seeing / Videos Demonstration Return Demonstration Hands On/Doing Education provided as per documentation below: SCREENING FOR PAIN STATUS: Patient reported pain level as 7 (08/25/2019 11:05) on 0 to 10 scale. Pain Scale used: Numerical Pain Scale Patient states current level of pain is: Acceptable Location of pain that most interferes with your life: feet and back Characteristics of pain: PAIN QUALITY: Aching, Dull, Sharp, Pins & needles Verbal Education Provided: To [...] medication refill requests and other non-urgent communication. EK-V15 Influenza Immunization : [id number] INFLUENZA IMMUNIZATION V1.0 Is the PATIENT an employee of [facility]? No. Adjuvant vaccine - Fluad (ages 65 and older) ("Free of preservative, including Thimerosal. Free of Latex. May contain trace amounts of neomycin, kanamycin, barium, hydrocortisone, as well as residual amount of egg proteins, formaldehyde or CTAB). Patient given Influenza Vaccination 0.5 cc I.M. during this visit. Influenza Lot and Long Distance Billing Operator: Lot #:[id number] [employer]. Expiration Date: 04/08/2020 Left Deltoid Patient tolerated injection well during this visit with no adverse effects. [facility] Vaccination Information Sheet (VIS) dated June 23, 2019 was given to patient. The patient's verbal consent was obtained prior to vaccination. The patient denies having a fever or is afebrile. The patient denies allergy to flu vaccine, Thimerosal, Neomycin, Polymyxin, eggs or any other component of Flu vaccine. The patient denies history of Guillain Prosser Syndrome The patient denies moderate/severe illness. N:Offer MOVE! Program: Discussed with patient the MOVE!/Weight Management Program. The following health risks of overweight/obesity were discussed: heart disease, diabetes, sleep apnea, hypertension, arthritis and certain cancers. Assessed patients readiness to begin weight management activities including the MOVE! Program. Patient offered enrollment into the MOVE!/Weight Management Program. Declined Weight Management (MOVE) Program. N:Pneumococcal PCV13 ([id number]): The patient received pneumococcal conjugate vaccine PCV13 (Prevnar 13) 0.5ml IM today in Right Deltoid. Long Distance Billing Operator: MOOVIA Lot # and Expiration Date: [id number] 05/28 Administered by protocol/policy Complications: None The Pneumococcal conjugate PCV13 (Prevnar 13) VIS was given to the patient today. VIS version date Sep. OTHER OBSERVATION/INTERVENTION: Harvey here for Monthly Testosterone injection. Pt in clinic today for: Testosterone injection Pt purchased injection medication from [place] hospital. Patient identity verified using 2 forms of ID: Name and Medication given: Testosterone 200 mg (1 ml) Order Verified:11/21/18 Route: IM Location: LEFT GM Mfg: [employer] Lot#: [id number]^# 03/2021 Exp: 12/2020 Dx: hypogonadism Initiated: Received locally until 01-07-19, then from the [place]. Pt rock injection w/o difficulty. also brought his own home BP monitor for comparison with [place]'s vital sign results. [employer], Rose Conde at [facility] requested BP cuff check as she questioned 's home vitals: LEFT ARM: [place] - 140/64; Harvey's -154/63 RIGHT ARM: [place] - 152/66; 's - 150/74 Is planning to start Shingrix at his next visit in Sep. PLAN: - RTC [place] injection clinic in 1 month: 09/22/19, - Unable to refill testosterone per Rafael gillespie's request; renewal forwarded to AKSHAT Magaña in different note. DISPOSITION: To home at 1135 /noa/ BARBARA DUNCAN RN, BSN Signed: 08/25/2019 11:38 Receipt Acknowledged By: 08/25/2019 12:07 /noa/ THOM INGRAM 08/25/2019 ADDENDUM STATUS: COMPLETED CORRECTION: Rx is on order for refilling on 08/26/2019. Refill order not submitted at this time. /noa/ BARBARA DUNCAN RN, BSN Signed: 08/25/2019 11:48 Receipt Acknowledged By: 08/25/2019 12:06 /noa/ BARBARA CARTY [facility]
[2020-04-18 10:00] LABS: HEMOGLOBIN 18.5 G/DL (13.3-17.7); MEAN PLATELET VOLUME 10.6 FL (7.4-10.4); RED CELL DISTRIBUTION WIDTH 17.8 % (10.0-14.5); WHITE BLOOD COUNT 11.9 10^3/uL (4.3-11.0)
--- OUTSIDE RECORDS SUMMARY | 2020-04-18 10:01 | XMS REPORT | Encounter Summary ---
Author Author [facility] SIMI palacio Organization Department of [facility] Address [address] [place] [id number] Phone Unavailable Care Team Providers Care Spare Person Name Role Phone THOM CHAMBERS PCP [...] FREEDOM MED REP (WNR) MEDICARE ADVANTAGE MCR ([facility]) Nov 09, 2017 [id number] [phone] SIMI COVARRUBIAS PATIENT ADVANTRA FREEDOM MED REP (WNR) MEDICARE ADVANTAGE MCR ([facility]) Nov 09, 2017 [id number] [phone] SIMI COVARRUBIAS PATIENT AETNA MCR (WNR) MEDICARE ADVANTAGE MCR ([facility]) Nov 09, 2019 [id number] SIMI COVARRUBIAS PATIENT Selected Encounter This section includes the information on record at [place] for the Encounter. Date/Time Encounter Type Encounter Description Reason Provider Source Jul 28, 2019 12:00 AM Outpatient Encounter EVENT (HISTORICAL) [facility] Encounter Template Text not used by [place] Assessments - Encounter Diagnoses No Data Provided [...] data comes from all [place] treatment facilities. Appointment Date/Time Appointment Type Appointment Facili ty Name Aug 04, 2019 11:00 AM AMBULATORY - NONE [facility] [place] [facility] Aug 16, 2019 01:00 PM AMBULATORY - NONE [facility] [place] [facility] Aug 25, 2019 10:00 AM AMBULATORY - NONE [facility] Sep 15, 2019 12:00 PM AMBULATORY - MEDICINE [facility] Sep 22, 2019 10:00 AM AMBULATORY - NONE [facility] Sep 23, 2019 11:00 AM AMBULATORY - NONE [facility] [place] Oct 17, 2019 03:00 PM AMBULATORY - NONE [facility] [place] [facility] Oct 20, 2019 10:00 AM AMBULATORY - NONE [facility] Nov 10, 2019 12:00 PM AMBULATORY - MEDICINE [facility] Nov 16, 2019 02:00 PM AMBULATORY - SURGERY [facility] [place] [facility] Nov 16, 2019 03:00 PM AMBULATORY - NONE [facility] [place] [facility] Nov 17, 2019 10:00 AM AMBULATORY - NONE [facility] Dec 01, 2019 11:30 AM [facility] Dec 14, 2019 03:00 PM AMBULATORY - NONE [facility] [place] [facility] Dec 15, 2019 01:00 PM AMBULATORY - NONE [facility] Jan 12, 2020 10:00 AM AMBULATORY - NONE [facility] Jan 26, 2020 03:00 PM AMBULATORY - NONE [facility] [place] [facility] Surgical Procedures: All associated [...] Result - Unit Interpretation Reference Range Comment Jul 07, 2019 09:11 AM [facility] PTH INTACT Specimen Type: PLASMA No comment entered. PTH INTACT 45.8 pg/mL 8.7-77.7 Jul 07, 2019 09:11 AM [facility] CBC & DIFF Specimen Type: BLOOD No comment entered. WBC 9.87 K/cmm 3.60-11.20 RBC 6.25 M/ul H 4.1-5.7 HGB 17.3 g/dl H 13.1-16.8 HCT 52.8 % H 38.2-48.4 MCV 84.5 fl 80.1-98.5 MCH 27.7 pg 27.0-34.0 MCHC 32.8 g/dl L 33.0-36.0 PLATELET COUNT 232 K/cmm 150-400 MPV 11.5 fl H 7.5-11.2 RDW 16.2 % H 11.8-15.1 LYMPHOCYTES, AUTO% 11.9 % NEUTROPHILS, AUTO % 76.8 % MONOCYTES, AUTO% 7.5 % MONOCYTES, ABSOLUTE 0.74 K/cmm 0.19-0.80 NEUTROPHILS, ABSOLUTE 7.58 K/cmm 2.10-8. 00 EOSINOPHILS, ABSOLUTE 0.20 K/cmm 0.00-0. 60 BASOPHILS, ABSOLUTE 0.10 K/cmm 0.00-0.20 EOSINOPHILS, AUTO% 2.0 % BASOPHILS, AUTO% 1.0 % LYMPHOCYTES, ABSOLUTE 1.17 K/cmm 0.77-4. 50 IMMATURE GRANS, ABSOLUTE 0.08 K/cmm H 0.00 -0.05 IMMATURE GRANS, AUTO % 0.8 % Jul 07, 2019 09:11 AM [facility] URINALYSIS Specimen Type: URINE No comment entered. URINE COLOR Yellow SPECIFIC GRAVITY 1.025 1.005-1.030 UROBILINOGEN Negative mg/dL 0.1-1.0 URINE BILIRUBIN Negative Negative URINE KETONES Negative mg/dl Negative URINE GLUCOSE Negative mg/dL Negative URINE PROTEIN 100 mg/dl Negative-Trace URINE PH 5.0 5-8 URINE MUCUS Trace /LPF None APPEARANCE,URINE Clear Clear URINE BLOOD Negative Negative URINE NITRITE Negative Negative LEUKOCYTE ESTERASE Negative Negative *UR WBC 0-2 WBC/HPF 0-5 *UR RBC 0-2 RBC/HPF 0-2 SQUAMOUS EPITHELIAL Trace /HPF Jul 07, 2019 09:11 AM [facility] MAGNESIUM (mg/dL) Specimen Type: PLASMA No comment entered. MAGNESIUM (mg/dL) 1.8 mg/dl 1.6-2.6 Jul 07, 2019 09:11 AM [facility] URIC ACID (mg/dL) Specimen Type: PLASMA No comment entered. URIC ACID (mg/dL) 6.7 mg/dL 3.5-7.2 Jul 07, 2019 09:11 AM [facility] VITAMIN D (25-OH) Specimen Type: SERUM No comment entered. VITAMIN D (25-OH) 42.9 ng/mL 30.0-96.0 Jul 07, 2019 09:11 AM [facility] MICROALBUMIN (CO,EK) Specimen Type: URINE No comment entered. *MICROALBUMIN(CONC) 46.6 mg/dL - *MICROALBUMIN(SPOT) 158 mcg/mg cr HH 0-29 *CREATININE mg/dL 295.0 mg/dl Not Avail. Jul 07, 2019 09:11 AM [facility] HEPATIC FUNCTION PANE L Specimen Type: PLASMA No comment entered. PROTEIN,TOTAL 6.1 g/dL 6.0-8.6 ALBUMIN 3.9 g/dl 3.4-5.0 TOTAL BILIRUBIN 0.4 mg/dL 0.2-1.2 DIRECT BILIRUBIN 0.2 mg/dL 0-0.5 ASPARTATE TRANSAMINASE 29 U/L 5-34 ALANINE AMINOTRANSFERASE 24 U/L 8-40 ALKALINE PHOSPHATASE 91 U/L 40-150 Jul 07, 2019 09:11 AM [facility] RENAL FUNCTION PANEL Specimen Type: PLASMA No comment entered. *CREATININE 1.22 mg/dL 0.7-1.3 UREA NITROGEN mg/dL 13 mg/dL 9-25 GLUCOSE 152 mg/dL H 72-99 SODIUM 140 mEq/L 136-145 POTASSIUM 3.3 mEq/L L 3.5-5.0 CALCIUM (mg/dL) 9.7 mg/dL 8.4-10.4 PHOSPHORUS INORGANIC 3.5 mg/dL 2.3-4.7 ALBUMIN 3.9 g/dl 3.4-5.0 CHLORIDE 99 mEq/L 98-107 CO2 31 mEq/L 22-31 EGFR 58.2 Jul 07, 2019 09:11 AM [facility] TABOLIC PANEL Specimen Type: PLASMA No comment entered. *CREATININE 1.22 mg/dL 0.7-1.3 UREA NITROGEN mg/dL 13 mg/dL 9-25 GLUCOSE 152 mg/dL H 72-99 SODIUM 140 mEq/L 136-145 POTASSIUM 3.3 mEq/L L 3.5-5.0 CALCIUM (mg/dL) 9.7 mg/dL 8.4-10.4 PROTEIN,TOTAL 6.1 g/dL 6.0-8.6 ALBUMIN 3.9 g/dl 3.4-5.0 TOTAL BILIRUBIN 0.4 mg/dL 0.2-1.2 ASPARTATE TRANSAMINASE 29 U/L 5-34 ALANINE AMINOTRANSFERASE 24 U/L 8-40 CHLORIDE 99 mEq/L 98-107 CO2 31 mEq/L 22-31 ALKALINE PHOSPHATASE 91 U/L 40-150 EGFR 58.2 Vital Signs: All taken on the encounter [...] to drug (disorder) Renal impairment [facility] 15 METFORMIN Dec 01, 2017 Propensity to adverse reactions to drug (disorder) Renal impairment [facility] 15 Medications: VA dispensed (-15 months) and Non-VA Documented (Obtained Outside [facility]) Section Date Range: 1) prescriptions processed by a VA pharmacy in the last 15 m [facility], and 2) all medications recorded in the [...] available).Discontinued = A prescription stopped by a [place] provider. It is no longer available to be filled. = A prescription which is too old to fill. This does not refer to the expiration date of the medication in the container. Non-VA = A medication that came from someplace other than a [place] pharmacy. This may be a prescription from either the [place] or other providers that was filled outside [...] TIMES A DAY 400 Sep 12, 2020 [id number] Feb 29, 2020 YARAHIGHLAND Laron [facility] ACCU-CHEK ROSINA PLUS (GLUCOSE) TEST STRIP Discontinued USE 1 STRIP FOR TESTING FOUR TIMES A DAY 400 Sep 15, 2019 [id number] Jun 13, 2019 [facility] Discontinued USE 1 PAD ON SKIN FOUR TIMES A DAY 40 0 Apr 25, 2020 [id number] Nov 29, 2019 ELEUTERIO LIVINGSTON [facility] [place] [facility] ALCOHOL PREP PAD Discontinued USE 1 PAD ON SKIN FOUR TIMES A DAY 40 0 Sep 15, 2019 [id number] Apr 18, 2019 ELEUTERIO LIVINGSTON [facility] ALLOPURINOL 100MG TAB Active TAKE ONE TABLET BY MOUTH ONCE A DAY FOR GOUT. TAKE WITH PLENTY OF WATER 90 Sep 23, 2020 [id number] Mar 05, 2020 SILVINA CHAMBERS [facility] [place] [facility] ALLOPURINOL 100MG TAB Discontinued TAKE ONE TABLET BY MOUTH ONCE A DAY FOR GOUT. TAKE WITH PLENTY OF WATER 90 Dec 30, 2019 [id number] Sep 17, 2019 THOM SHARPE [facility] [place] [facility] ALOGLIPTIN 12.5MG TAB Active TAKE ONE TABLET BY MOUTH O NCE A DAY FOR DIABETES 90 Sep 12, 2020 [id number] Mar 04, 2020 BALTRUSAITISELEUTERIO CRESPO [facility] [place] [facility] ALOGLIPTIN 12.5MG TAB Discontinued TAKE ONE TABLET BY MOUTH ONCE A DAY FOR DIABETES 90 Dec 22, 2019 [id number] Jun 18, 2019 BALTRMARVINDANNELEUTERIO [facility] [place] [facility] AMLODIPINE BESYLATE 10MG TAB Discontinued TAKE ONE TA BLET BY MOUTH EVERY MORNING FOR HEART/BLOOD PRESSURE 90 Jun 10, 2019 [id number] Feb 25, 2019 MONIKA HAMMER [facility] [place] [facility] AMLODIPINE BESYLATE 10MG TAB TAKE ONE TA BLET BY MOUTH EVERY MORNING FOR HEART/BLOOD PRESSURE 90 Apr 12, 2020 [id number] Feb 10, 2020 SILVINA CHAMBERS [facility] ASPIRIN 81MG TAB,CHEWABLE Non-VA CHEW ONE TABLET BY MOUTH ONCE A DAY Non-VA Documented by: MEGAN HAWK nted at: [facility] ATORVASTATIN CA 20MG TAB Active TAKE ONE TABLET BY MOUTH ONCE A DAY FOR CHOLESTEROL. REPORT ANY UNEXPLAINED MUSCLE PAIN OR WEAKNESS TO YOUR DOCTOR. 90 Jan 02, 2021 [id number] March 24, 2020 [facility] 15 ATORVASTATIN CA 40MG TAB Discontinued TAKE ONE-HALF T ABLET BY MOUTH AT BEDTIME FOR CHOLESTEROL. REPORT ANY UNEXPLAINED MUSCLE PAIN OR WEAKNESS TO YOUR DOCTOR. 45 Jul 15, 2020 [id number] Oct 14, 2019 THOM CHAMBERS [facility] [place] [facility] ATORVASTATIN CA 40MG TAB Discontinued TAKE ONE-HALF T ABLET BY MOUTH AT BEDTIME FOR CHOLESTEROL. REPORT ANY UNEXPLAINED MUSCLE PAIN OR WEAKNESS TO YOUR DOCTOR. 45 Oct 12, 2019 [id number] Jul 16, 2019 THOM CHAMBERS [facility] [place] [facility] CALCIUM CARBONATE 500MG TAB,CHEWABLE Non-VA CHEW ONE TABLET BY MOUTH PRN Non-VA Documented by: THOM CHAMBERS nted at: [facility] CHLORTHALIDONE 25MG TAB Active TAKE ONE TABLET BY MOUTH ONCE A DAY 90 Jul 01, 2020 [id number] March 19, 2020 MONIKA HAMMER [facility] [place] [facility] CHLORTHALIDONE 25MG TAB Discontinued TAKE ONE TABLET BY MOUTH ONCE A DAY 90 Jun 16, 2019 [id number] Apr 12, 2019 MONIKA HAMMER [facility] [place] [facility] CHOLECALCIFEROL 1000UNT TAB Non-VA TAKE ONE TABLET BY MOUTH EVERY OTHER DAY Non-VA Docume nted by: MEGAN HAWK Docume nted at: [facility] CYANOCOBALAMIN 1000MCG/ML INJ Active INJECT 100 0 MCG (1 ML) INTRAMUSCULARLY EVERY MONTH FOR B12 SUPPLEMENTATION. 3 Nov 03, 2020 [id number] Apr 23, 2020 [facility] [place] [facility] CYANOCOBALAMIN 1000MCG/ML INJ Discontinued INJECT 100 0 MCG (1 ML) INTRAMUSCULARLY EVERY MONTH FOR B12 SUPPLEMENTATION. 3 Nov 17 0 [id number] Aug 07, 2019 [facility] [place] [facility] DIPHENHYDRAMINE HCL 25MG CAP Non-VA TAKE 1 CAPSULE BY MOUTH PRN Non-VA Documented by: THOM CHAMBERS Docsammi nted at: [facility] DOCUSATE NA 100MG CAP No n-VA TAKE 2 CAPSULES BY MOUTH ONCE A DAY Non-VA Documented by: THOM CHAMBERS Docsammi nted at: [facility] FISH OIL 1000MG (500MG DHA/EPA) CAP,ORAL Non-VA TAKE 1 CAPSULE BY MOUTH ONCE A DAY Non-VA Documented by: MEGAN HAWK Docume nted at: [facility] GABAPENTIN 100MG CAP Active TAKE 1 CAPSULE BY M OUTH EVERY MORNING AND TAKE 1 CAPSULE BY MOUTH AT NOON AND TAKE 2 CAPSULES BY MOUTH AT BEDTIME 360 Jul 06, 2020 [id number] March 31, 2020 ELEUTERIO LIVINGSTON [facility] [place] [facility] GLUCAGON 1MG/GABRIELLA INJ,EMERGENCY KIT INJEC T 1MG SUBCUTANEOUSLY NEEDED FOR SEVERE HYPOGLYCEMIA 1 Nov 30, 2019 [id number] Nov 03, 2019 [facility] [place] [facility] INSULIN,ASPART,HUMAN 100U/ML,NOVOLOG,FLEXPEN,3ML Active: On Hold INJECT 20 UNITS SUBCUTANEOUSLY BEFORE BREAKFAST AND INJECT 20 UNITS BEFORE LUNCH AND INJECT 26 UNITS BEFORE SUPPER AND INJECT 24 UNITS SNACK FOR BLOOD SUGAR CONTROL. ADMINISTER 10 MINUTES BEFORE FOOD DIRECTED. REFRIGERATE UN-OPENED PENS. DISCARD CARTRIDGE 28 DAYS AFTER OPENING. PLUS CORRECTION Mar 01, 2021 [id number] ELEUTERIO LIVINGSTON [facility] [place] [facility] INSULIN,ASPART,HUMAN 100U/ML,NOVOLOG,FLEXPEN,3ML Discontinue d INJECT 20 UNITS SUBCUTANEOUSLY BEFORE BREAKFAST AND INJECT 20 UNITS BEFORE LUNCH AND INJECT 24 UNITS BEFORE SUPPER AND INJECT 24 UNITS SNACK FOR BLOOD SUGAR CONTROL. ADMINISTER 10 MINUTES BEFORE FOOD DIRECTED. REFRIGERATE UN-OPENED PENS. DISCARD CARTRIDGE 28 DAYS AFTER OPENING. PLUS CORRECTION 30 Jan 26, 2021 [id number] Jan 28, 2020 [facility] [place] [facility] INSULIN,ASPART,HUMAN 100U/ML,NOVOLOG,FLEXPEN,3ML Discontinue d INJECT 20 UNITS SUBCUTANEOUSLY BEFORE MEALS FOR BLOOD SUGAR CONTROL. ADMINISTER 10 MINUTES BEFORE FOOD DIRECTED. REFRIGERATE UN-OPENED PENS. DISCARD CARTRIDGE 28 DAYS AFTER OPENING. PLUS CORRECTION FOR BLOOD SUGAR CONTROL. ADMINISTER 10 MINUTES BEFORE FOOD DIRECTED. REFRIGERATE UN-OPENED PENS. DISCARD CARTRIDGE 28 DAYS AFTER OPENING. PLUS CORRECTION 30 Nov 16, 2020 [id number] Nov 16 [facility] [place] INSULIN,ASPART,HUMAN 100U/ML,NOVOLOG,FLEXPEN,3ML Discontinue d INJECT 15 UNITS SUBCUTANEOUSLY EVERY MORNING BEFORE MEAL AND INJECT 15 UNITS WITH LUNCH AND INJECT 15 UNITS WITH SUPPER AND INJECT 20 UNITS WITH SNACK FOR BLOOD SUGAR CONTROL. ADMINISTER 10 MINUTES BEFORE FOOD DIRECTED. REFRIGERATE UN-OPENED PENS. DISCARD CARTRIDGE 28 DAYS AFTER OPENING. Dec 22, 2019 [id number] Oct 12, 2019 [facility] [place] INSULIN,GLARGINE,HUMAN 100 UNIT/ML INJ,SOLOSTAR,3ML Active INJECT 50 UNITS SUBCUTANEOUSLY EVERY MORNING FOR BLOOD SUGAR CONTROL. ADMINISTER AT SAME TIME EACH DAY DIRECTED. DISCARD ANY OPEN CARTRIDGE AFTER 28 DAYS. Sep 23, 2020 [id number] Jan 28, 2020 [facility] [place] [facility] INSULIN,GLARGINE,HUMAN 100 UNIT/ML INJ,SOLOSTAR,3ML Disconti nued INJECT 45 UNITS SUBCUTANEOUSLY EVERY MORNING FOR BLOOD SUGAR CONTROL. ADMINISTER AT SAME TIME EACH DAY DIRECTED. DISCARD ANY OPEN CARTRIDGE AFTER 28 DAYS. Oct 23, 2019 [id number] Aug 30, 2019 [facility] [place] [facility] LACTOBACILLUS ACIDOPHILUS TAB,CHEWABLE Non-VA CHEW ONE TABLET BY MOUTH ONCE A DAY Non-VA Documented by: MEGAN HAWK nted at: [facility] LANCET,SOFTCLIX Active USE LANCET 5 TIME S A DAY FOR TESTING BLOOD GLUCOSE DIRECTED 500 Dec 28, 2020 [id number] March 19, 2020 ELEUTERIO LIVINGSTON Laron [facility] [place] [facility] LANCET,SOFTCLIX Discontinued USE LANCET 5 TIME S A DAY FOR TESTING BLOOD GLUCOSE DIRECTED 500 Jan 11, 2020 [id number] Sep 29, 2019 CRY[place] ITISELEUTERIO Larry [facility] [place] [facility] MAGNESIUM OXIDE 400MG TAB Non-VA TAKE ONE TABLET BY MOUTH ONCE A DAY Non-VA Documented by: MEGAN HAWK nted at: [facility] METOPROLOL SUCCINATE 200MG TAB,SA TAKE O NE-HALF TABLET BY MOUTH EVERY EVENING FOR HEART/BLOOD PRESSURE. SWALLOW WHOLE, DO NOT CRUSH OR CHEW (TABLETS MAY BE CUT IN HALF). 45 March 18, 2020 [id number] Dec 28, 2019 STANISLAV HAMMER [facility] NEEDLE 22G 1.5IN USE NEEDLE FOR EVERY MONTH 1 Nov 12, 2019 [id number] Feb 07, 2019 ADELAIDA CLIFFORD [facility] [place] [facility] NEEDLE,PEN 31G,5MM Discontinued USE NEEDLE SUBCUTANE OUSLY 5 TIMES A DAY - THIS IS A SINGLE USE NEEDLE AND SHOULD BE DISCARDED AFTER USE 500 Dec 21, 2019 [id number] Sep 28, 2019 LYNDABRYCEELEUTERIO QUIGLEY [facility] [place] [facility] POTASSIUM CHLORIDE 10MEQ TAB,SA Active TAKE TWO TABLETS BY MOUTH TWO TIMES A DAY FOR POTASSIUM SUPPLEMENTATIONTAKE WITH FOOD 360 Dec 12, 2020 [id number] Mar 02, 2020 YANELY QUINTERO [facility] POTASSIUM CHLORIDE 10MEQ TAB,SA Discontinued TAKE ONE TABLET BY MOUTH THREE TIMES A DAY WITH MEALS FOR POTASSIUM SUPPLEMENTATIONTAKE WITH FOOD 180 March 16, 2020 [id number] Nov 29, 2019 CRYSTALMARVINELEUTERIO QUIGLEY [facility] [place] [facility] POTASSIUM CHLORIDE 10MEQ TAB,SA Discontinued TAKE ONE TABLET BY MOUTH THREE TIMES A DAY WITH MEALS FOR POTASSIUM SUPPLEMENTATIONTAKE WITH FOOD 180 May 26, 2019 [id number] Jan 24, 2019 YANELY QUINTERO [facility] [place] [facility] SYRINGE 2.5-3ML/NDL 25G 1IN Active USE 1 SYRINGE EVERY MONTH 3 Feb 21, 2021 [id number] March 20, 2020 [facility] SYRINGE 2.5-3ML/NDL 25G 1IN Discontinued USE 1 SYRINGE EVERY Thu 3 March 18, 2020 [id number] Dec 21, 2019 [facility] TESTOSTERONE CYPIONATE 200MG/ML INJ,1ML (IN OIL) Active INJECT 200 MG (1 ML) INTRAMUSCULARLY EVERY MONTH FOR HORMONE REPLACEMENT 1 May 18, 2020 [id number] April 06, 2020 ADELAIDA CLIFFORD [facility] [place] TESTOSTERONE CYPIONATE 200MG/ML INJ,1ML (IN OIL) Discontinue d INJECT 200 MG (1 ML) INTRAMUSCULARLY EVERY MONTH FOR HORMONE REPLACEMENT March 25, 2020 [id number] Oct 25, 2019 ADELAIDA CLIFFORD [facility] [place] [facility] TESTOSTERONE CYPIONATE 200MG/ML INJ,1ML (IN OIL) Discontinue d INJECT 200 MG (1 ML) INTRAMUSCULARLY EVERY MONTH FOR HORMONE REPLACEMENT 1 Nov 06, 2019 [id number] Sep 25, 2019 ADELAIDA CLIFFORD [facility] [place] [facility] TESTOSTERONE CYPIONATE 200MG/ML INJ,1ML (IN OIL) Discontinue d INJECT 200 MG (1 ML) INTRAMUSCULARLY EVERY MONTH FOR HORMONE REPLACEMENT 1 May 14, 2019 [id number] Apr 10, 2019 ADELAIDA CLIFFORD [facility] [place] [facility] TRAMADOL HCL 50MG TAB Active TAKE 1 TO 2 TABLET S BY MOUTH EVERY 6 HOURS NEEDED FOR PAIN 180 Jul 21, 2020 [id number] March 30, 2020 [facility] TRAMADOL HCL 50MG TAB Discontinued TAKE 1 TO 2 TABLET S BY MOUTH EVERY 6 HOURS NEEDED FOR PAIN 180 Jun 06, 2020 [id number] Jan 11, 2020 [facility] TRAMADOL HCL 50MG TAB Discontinued TAKE 1 TO 2 TABLET S BY MOUTH EVERY 6 HOURS NEEDED FOR PAIN 180 Jun 06, 2020 [id number] Dec 06, 2019 [facility] TRAMADOL HCL 50MG TAB Discontinued TAKE 1 TO 2 TABLET S BY MOUTH EVERY 6 HOURS NEEDED FOR PAIN 180 Dec 14, 2019 [id number] Nov 15, 2019 ABRAMDANTE Laron MESSER [facility] [place] [facility] TRAMADOL HCL 50MG TAB Discontinued TAKE 1 TO 2 TABLET S BY MOUTH EVERY 6 HOURS NEEDED FOR PAIN 180 Jul 06, 2019 [id number] May 26, 2019 NELLA GROVE [facility] [place] [facility] TRIAMCINOLONE ACETONIDE 0.5% CREAM,TOP Active A PPLY SPARINGLY TO AFFECTED AREA ONCE A DAY NEEDED FOR RASH 45 Jul 15, 2020 [id number] April 01 0 REYESTHOM [facility] [place] [facility] TRIAMCINOLONE ACETONIDE 0.5% CREAM,TOP Discontinued A PPLY SPARINGLY TO AFFECTED AREA ONCE A DAY NEEDED FOR RASH 45 Oct 12, 2019 [id number] Jul REYESTHOM [facility] [place] [facility] Problems (Conditions): [...] Source Basal cell carcinoma of scalp Active [id number] THOM CHAMBERS [facility] [place] [facility] Chronic back pain Active [id number] TERRIE CHAMBERS [facility] [place] [facility] Chronic kidney disease stage 3 Active [id number] THOM CHAMBERS [facility] [place] [facility] Constipation Active [id number] THOM CHAMBERS [facility] [place] [facility] Diabetes mellitus Active 11716330 THOM CHAMBERS [facility] [place] [facility] Diabetic neuropathy Active [id number] Neha CHAMBERS [facility] [place] [facility] Essential hypertension Active 20164009 THOM CHAMBERS [facility] [place] [facility] Hyperlipidemia Active 43914362 THOM CHAMBERS [facility] [place] Hypogonadism Active 74004354 THOM CHAMBERS [facility] [place] [facility] Sleep apnea Active [id number] THOM CHAMBERS [facility] [place] [facility] Radiology Reports: +/- 30 days of the encounter No Data Provided for This Section Pathology Reports: +/- 30 days of the encounter No Data Provided for This Section Encounter Notes: All associated encounter notes No Data Provided for This Section
--- OUTSIDE RECORDS SUMMARY | 2020-04-18 10:01 | XMS REPORT | Encounter Summary ---
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 Person Name Role Phone THOM CHAMBERS PCP [...] [facility] Nov 09, 2017 [id number] [phone] SIMI COVARRUBIAS PATIENT [facility] RE[facility] (WNR) MEDICARE ADVANTAGE MCR ([facility]) Nov 09, 2017 [id number] [phone] SIMI COVARRUBIAS PATIENT [facility] ([facility]) MEDICARE ADVANTAGE MCR ([facility]) Nov 09, [phone] [id number] SIMI COVARRUBIAS PATIENT Selected Encounter This section includes the information on record at [facility] for the Encounter. Date/Time Encounter Type Encounter Description Reason Provider Source Aug 16, 2019 08:00 AM Outpatient Encounter ADMIN PAT ACTIVTIES (MASNO NCT) [facility] [place] [facility] I[facility] Encounter Template Text not used by VA Assessments - Encounter Diagnoses No Data Provided for This Section Plan of Treatment: Future Appointments (+ 6 months) and Future Tests (+/- 45 day s) The Plan of Treatment section includes future care activities for the patient fr om all [place] treatment facilities. This section includes future appointments and fu ture orders which are active, pending or scheduled. Future Appointments This section includes appointments that were scheduled t o occur 6 months from the date of the Encounter, up to a maximum of 20 appointme nts. The data comes from all [place] treatment facilities. Appointment Date/Time Appointment Type Appointment Facili ty Name Aug 25, 2019 10:00 AM [facility]ORY [facility] NONE [facility] Sep 15, 2019 12:00 PM [facility]INE [facility] Sep 22, 2019 10:00 AM [facility]ATORY - NONE [facility] Sep 23, 2019 11:00 AM AMBULATORY - NONE [facility] [place] [facility] Oct 17, 2019 03:00 PM AMBULATORY - NONE [facility] [place] [facility] Oct 20, 2019 10:00 AM [facility]ORY [facility] NONE [facility] Nov 10, 2019 12:00 PM [facility] Nov 16, 2019 02:00 PM AMBULATORY - SURGERY [facility] [place] [facility] Nov 16, 2019 03:00 PM AMBULATORY - NONE [facility] [place] [facility] Nov 17, 2019 10:00 AM [facility]ONE [facility] Dec 01, 2019 11:30 AM [facility] Dec 14, 2019 03:00 PM AMBULATORY - NONE [facility] [place] [facility] Dec 15, 2019 01:00 PM [facility]ORY [facility] NONE [facility] Jan 12, 2020 10:00 AM [facility]ULATORY - NONE [facility] Jan 26, 2020 03:00 PM AMBULATORY - NONE [facility] [place] [facility] Surgical Procedures: All [...] Range Comment Sep 15, 2019 11:44 AM [facility] [place] [facility] BASIC METABOLIC PANEL Specimen Type: PLASMA No comment entered. *CREATININE 1.59 mg/dL H 0.7-1.3 UREA NITROGEN mg/dL 30 mg/dL H 9-25 GLUCOSE 151 mg/dL H 72-99 SODIUM 139 mEq/L 136-145 POTASSIUM 3.9 mEq/L 3.5-5.0 CALCIUM (mg/dL) 9.8 mg/dL 8.4-10.4 CHLORIDE 101 mEq/L 98-107 CO2 31 mEq/L 22-31 EGFR 42.9 Sep 15, 2019 11:44 AM [facility] [place] [facility] HEMOGLOBIN [...] Adverse Reactions (ADR s) on record with [place] for the patient. The data comes from a ll [place] treatment facilities. It does not list Allergies/ADRs that were removed or entered in error. Some allergies/ADRs may be reported in t Immunization section. Allergen Event Date Event Type Reaction(s) Severity Source LISINOPRIL Dec 01, 2017 Propensity to adverse reactions to drug (disorder) Renal impairment [facility] 15 METFORMIN Dec 01, 2017 Propensity to adverse reactions to drug (disorder) Renal impairment [facility] 15 Medications: VA dispensed (-15 months) and Non-VA Documented (Obtained Outside [facility]) Section Date Range: 1) prescriptions processed by a VA pharmacy in the last 15 m [facility], and 2) all medications recorded in [...] medication received during a visit to a [place] clinic or emergency department (currently not available).Discontinued [...] TIMES A DAY 400 Sep 12, 2020 [id number] Feb 29, 2020 YARAMALONE Laron [facility] ACCU-CHEK ROSINA PLUS (GLUCOSE) TEST STRIP Discontinued USE 1 STRIP FOR TESTING FOUR TIMES A DAY 400 Sep 15, 2019 [id number] Jun 13, 2019 [facility] AL[facility] PRE[facility] PAD Discontinued USE 1 PAD ON SKIN FOUR TIMES A DAY 40 0 Apr 25, 2020 [id number] Nov 29, 2019 ELEUTERIO LIVINGSTON [facility] [place] [facility] ALCOHOL PREP PAD Discontinued USE 1 PAD ON SKIN FOUR TIMES A DAY 40 0 Sep 15, 2019 [id number] Apr 18, 2019 YARAELEUTERIO Laron [facility] ALLOPURINOL 100MG TAB Active TAKE ONE TABLET BY MOUTH ONCE A DAY FOR GOUT. TAKE WITH PLENTY OF WATER 90 Sep 23, 2020 [id number] Mar 05, 2020 SILVINA CHAMBERS [facility] [place] [facility] ALLOPURINOL 100MG TAB Discontinued TAKE ONE TABLET BY MOUTH ONCE A DAY FOR GOUT. TAKE WITH PLENTY OF WATER 90 Dec 30, 2019 [id number] Sep 17, 2019 THOM SHARPE [facility] [place] [facility] ALOGLIPTIN 12.5MG TAB Active TAKE ONE TABLET BY MOUTH O NCE A DAY FOR DIABETES 90 Sep 12, 2020 [id number] Mar 04, 2020 ELEUTERIO LIVINGSTON [facility] [place] [facility] ALOGLIPTIN 12.5MG TAB Discontinued TAKE ONE TABLET BY MOUTH ONCE A DAY FOR DIABETES 90 Dec 22, 2019 [id number] Jun 18, 2019 BALTRUSAITIS,ELEUTERIO L [facility] [place] [facility] AMLODIPINE BESYLATE 10MG TAB Discontinued TAKE ONE TA BLET BY MOUTH EVERY MORNING FOR HEART/BLOOD PRESSURE 90 Jun 10, 2019 [id number] Feb 25, 2019 JAQUELIN MONIKA Larry [facility] [place] [facility] AMLODIPINE BESYLATE 10MG TAB TAKE ONE TA BLET BY MOUTH EVERY MORNING FOR HEART/BLOOD PRESSURE 90 Apr 12, 2020 [id number] Feb 10, 2020 SILVINA CHAMBERS [facility] ASPIRIN 81MG TAB,CHEWABLE Non-VA CHEW ONE TABLET BY MOUTH ONCE A DAY Non-VA Documented by: MEGAN HAWK nted at: [facility] ATORVASTATIN CA 20MG TAB Active TAKE ONE TABLET BY MOUTH ONCE A DAY FOR CHOLESTEROL. REPORT ANY UNEXPLAINED MUSCLE PAIN OR WEAKNESS TO YOUR DOCTOR. 90 Jan 02, 2021 [id number] March 24, 2020 NELLA GROVE [facility] 15 ATORVASTATIN CA 40MG TAB Discontinued TAKE ONE-HALF T ABLET BY MOUTH AT BEDTIME FOR CHOLESTEROL. REPORT ANY UNEXPLAINED MUSCLE PAIN OR WEAKNESS TO YOUR DOCTOR. 45 Jul 15, 2020 [id number] Oct 14, 2019 REYESTHOM [facility] [place] [facility] ATORVASTATIN CA 40MG TAB Discontinued TAKE ONE-HALF T ABLET BY MOUTH AT BEDTIME FOR CHOLESTEROL. REPORT ANY UNEXPLAINED MUSCLE PAIN OR WEAKNESS TO YOUR DOCTOR. 45 Oct 12, 2019 [id number] Jul 16, 2019 THOM CHAMBERS [facility] [place] [facility] CALCIUM CARBONATE 500MG TAB,CHEWABLE Non-VA CHEW ONE TABLET BY MOUTH PRN Non-VA Documented by: THOM CHAMBERS nted at: [facility] CHLORTHALIDONE 25MG TAB Active TAKE ONE TABLET BY MOUTH ONCE A DAY 90 Jul 01, 2020 [id number] March 19, [address] [facility] [place] [facility] CHLORTHALIDONE 25MG TAB Discontinued TAKE ONE TABLET BY MOUTH ONCE A DAY 90 Jun 16, 2019 [id number] Apr 12, 2019 MONIKA HAMMER [facility] [place] [facility] CHOLECALCIFEROL 1000UNT TAB Non-VA TAKE ONE TABLET BY MOUTH EVERY OTHER DAY Non-VA Docume nted by: MEGAN HAWK nted at: [facility] CYANOCOBALAMIN 1000MCG/ML INJ Active INJECT 100 0 MCG (1 ML) INTRAMUSCULARLY EVERY MONTH FOR B12 SUPPLEMENTATION. 3 Nov 03, 2020 [id number] Apr 23, 2020 [facility] [place] [facility] CYANOCOBALAMIN 1000MCG/ML INJ Discontinued INJECT 100 0 MCG (1 ML) INTRAMUSCULARLY EVERY MONTH FOR B12 SUPPLEMENTATION. 3 Nov 17 0 [id number] Aug 07, 2019 [facility] [place] [facility] DIPHENHYDRAMINE HCL 25MG CAP Non-VA TAKE 1 CAPSULE BY MOUTH PRN Non-VA Documented by: THOM CHAMBERS nted at: [facility] DOCUSATE NA 100MG CAP No n-VA TAKE 2 CAPSULES BY MOUTH ONCE A DAY Non-VA Documented by: THOM CHAMBERS nted at: [facility] FISH OIL 1000MG (500MG DHA/EPA) CAP,ORAL Non-VA TAKE 1 CAPSULE BY MOUTH ONCE A DAY Non-VA Documented by: MEGAN HAWK nted at: [facility] GABAPENTIN 100MG CAP Active TAKE 1 CAPSULE BY M OUTH EVERY MORNING AND TAKE 1 CAPSULE BY MOUTH AT NOON AND TAKE 2 CAPSULES BY MOUTH AT BEDTIME 360 Jul 06, 2020 [id number] March 31, 2020 ELEUTERIO LIVINGSTON [facility] [place] [facility] GLUCAGON 1MG/GABRIELLA INJ,EMERGENCY KIT INJEC T 1MG SUBCUTANEOUSLY NEEDED FOR SEVERE HYPOGLYCEMIA 1 Nov 30, 2019 [id number] Nov 03, 2019 [facility] [place] [facility] INSULIN,ASPART,HUMAN 100U/ML,NOVOLOG,FLEXPEN,3ML Active: On Hold INJECT 20 UNITS SUBCUTANEOUSLY BEFORE BREAKFAST AND INJECT 20 UNITS BEFORE LUNCH AND INJECT 26 UNITS BEFORE SUPPER AND INJECT 24 UNITS SNACK FOR BLOOD SUGAR CONTROL. ADMINISTER 10 MINUTES BEFORE FOOD DIRECTED. REFRIGERATE UN-OPENED PENS. DISCARD CARTRIDGE 28 DAYS AFTER OPENING. PLUS CORRECTION Mar 01, 2021 [id number] ELEUTERIO LIVINGSTON [facility] [place] [facility] INSULIN,ASPART,HUMAN 100U/ML,NOVOLOG,FLEXPEN,3ML Discontinue d INJECT 20 UNITS SUBCUTANEOUSLY BEFORE BREAKFAST AND INJECT 20 UNITS BEFORE LUNCH AND INJECT 24 UNITS BEFORE SUPPER AND INJECT 24 UNITS SNACK FOR BLOOD SUGAR CONTROL. ADMINISTER 10 MINUTES BEFORE FOOD DIRECTED. REFRIGERATE UN-OPENED PENS. DISCARD CARTRIDGE 28 DAYS AFTER OPENING. PLUS CORRECTION 30 Jan 26, 2021 [id number] Jan 28, 2020 ELEUTERIO LIV[facility]ON [facility] OPENING. PLUS CORRECTION 30 Nov 16, 2020 [id number] Nov 16 ELEUTERIO LIVINGSTON [facility] [place] [facility] INSULIN,ASPART,HUMAN 100U/ML,NOVOLOG,FLEXPEN,3ML Discontinue d INJECT 15 UNITS SUBCUTANEOUSLY EVERY MORNING BEFORE MEAL AND INJECT 15 UNITS WITH LUNCH AND INJECT 15 UNITS WITH SUPPER AND INJECT 20 UNITS WITH SNACK FOR BLOOD SUGAR CONTROL. ADMINISTER 10 MINUTES BEFORE FOOD DIRECTED. REFRIGERATE UN-OPENED PENS. DISCARD CARTRIDGE 28 DAYS AFTER OPENING. Dec 22, 2019 [id number] Oct 12, 2019 ELEUTERIO LIVINGSTON [facility] [place] [facility] INSULIN,GLARGINE,HUMAN 100 UNIT/ML INJ,SOLOSTAR,3ML Active INJECT 50 UNITS SUBCUTANEOUSLY EVERY MORNING FOR BLOOD SUGAR CONTROL. ADMINISTER AT SAME TIME EACH DAY DIRECTED. DISCARD ANY OPEN CARTRIDGE AFTER 28 DAYS. Sep 23, 2020 [id number] Jan 28, 2020 ELEUTERIO LIVINGSTON [facility] INSULIN,GLARGINE,HUMAN 100 UNIT/ML INJ,SOLOSTAR,3ML Disconti nued INJECT 45 UNITS SUBCUTANEOUSLY EVERY MORNING FOR BLOOD SUGAR CONTROL. ADMINISTER AT SAME TIME EACH DAY DIRECTED. DISCARD ANY OPEN CARTRIDGE AFTER 28 DAYS. Oct 23, 2019 [id number] Aug 30, 2019 ELEUTERIO LIVINGSTON [facility] LACTOBACILLUS ACIDOPHILUS TAB,CHEWABLE Non-VA CHEW ONE TABLET BY MOUTH ONCE A DAY Non-VA Documented by: MEGAN HAWK nted at: [facility] LANCET,SOFTCLIX Active USE LANCET 5 TIME S A DAY FOR TESTING BLOOD GLUCOSE DIRECTED 500 Dec 28, 2020 [id number] March 19, 2020 BALTRUSAITISELEUTERIO [facility] [place] [facility] LANCET,SOFTCLIX Discontinued USE LANCET 5 TIME S A DAY FOR TESTING BLOOD GLUCOSE DIRECTED 500 Jan 11, 2020 [id number] Sep 29, 2019 ELEUTERIO PATEL [facility] [place] [facility] MAGNESIUM OXIDE 400MG TAB Non-VA TAKE ONE TABLET BY MOUTH ONCE A DAY Non-VA Documented by: MEGAN HAWK nted at: [facility] METOPROLOL SUCCINATE 200MG TAB,SA TAKE O NE-HALF TABLET BY MOUTH EVERY EVENING FOR HEART/BLOOD PRESSURE. SWALLOW WHOLE, DO NOT CRUSH OR CHEW (TABLETS MAY BE CUT IN HALF). 45 March 18, 2020 [id number] Dec 28, 2019 STANISLAV HAMMER [facility] NEEDLE 22G 1.5IN USE NEEDLE FOR EVERY MONTH 1 Nov 12, 2019 [id number] Feb 07, 2019 ADELAIDA CLIFFORD [facility] [place] [facility] NEEDLE,PEN 31G,5MM Discontinued USE NEEDLE SUBCUTANE OUSLY 5 TIMES A DAY - THIS IS A SINGLE USE NEEDLE AND SHOULD BE DISCARDED AFTER USE 500 Dec 21, 2019 [id number] Sep 28, 2019 BALELEUTERIO KONG [facility] POTASSIUM CHLORIDE 10MEQ TAB,SA Active TAKE TWO TABLETS BY MOUTH TWO TIMES A DAY FOR POTASSIUM SUPPLEMENTATIONTAKE WITH FOOD 360 Dec 12, 2020 [id number] Mar 02, 2020 [facility] POTASSIUM CHLORIDE 10MEQ TAB,SA Discontinued TAKE ONE TABLET BY MOUTH THREE TIMES A DAY WITH MEALS FOR POTASSIUM SUPPLEMENTATIONTAKE WITH FOOD 180 March 16, 2020 [id number] Nov 29, 2019 BALTRUSAITISELEUTERIO [facility] [place] [facility] POTASSIUM CHLORIDE 10MEQ TAB,SA Discontinued TAKE ONE TABLET BY MOUTH THREE TIMES A DAY WITH MEALS FOR POTASSIUM SUPPLEMENTATIONTAKE WITH FOOD 180 May 26, 2019 [id number] Jan 24, 2019 [facility] [place] [facility] SYRINGE 2.5-3ML/NDL 25G 1IN Active USE 1 SYRINGE EVERY MONTH 3 Feb 21, 2021 [id number] March 20, 2020 [facility] SYRINGE 2.5-3ML/NDL 25G 1IN Discontinued USE 1 SYRINGE EVERY Thu 3 March 18, 2020 [id number] Dec 21, 2019 [facility] TESTOSTERONE CYPIONATE 200MG/ML INJ,1ML (IN OIL) Active INJECT 200 MG (1 ML) INTRAMUSCULARLY EVERY MONTH FOR HORMONE REPLACEMENT 1 May 18, 2020 [id number] April 06, 2020 ADELAIDA CLIFFORD [facility] [place] [facility] TESTOSTERONE CYPIONATE 200MG/ML INJ,1ML (IN OIL) Discontinue d INJECT 200 MG (1 ML) INTRAMUSCULARLY EVERY MONTH FOR HORMONE REPLACEMENT March 25, 2020 [id number] Oct 25, 2019 ADELAIDA CLIFFORD [facility] TESTOSTERONE CYPIONATE 200MG/ML INJ,1ML (IN OIL) Discontinue d INJECT 200 MG (1 ML) INTRAMUSCULARLY EVERY MONTH FOR HORMONE REPLACEMENT Nov 06, 2019 [id number] Sep 25, 2019 [facility] TESTOSTERONE CYPIONATE 200MG/ML INJ,1ML (IN OIL) Discontinue d INJECT 200 MG (1 ML) INTRAMUSCULARLY EVERY MONTH FOR HORMONE REPLACEMENT 1 May 14, 2019 [id number] Apr 10, 2019 ADELAIDA CLIFFORD [facility] TRAMADOL HCL 50MG TAB Active TAKE 1 TO 2 TABLET S BY MOUTH EVERY 6 HOURS NEEDED FOR PAIN 180 Jul 21, 2020 [id number] March 30, 2020 [facility] 15 TRAMADOL HCL 50MG TAB Discontinued TAKE 1 TO 2 TABLET S BY MOUTH EVERY 6 HOURS NEEDED FOR PAIN 180 Jun 06, 2020 [id number] Jan 11, 2020 [facility] 15 TRAMADOL HCL 50MG TAB Discontinued TAKE 1 TO 2 TABLET S BY MOUTH EVERY 6 HOURS NEEDED FOR PAIN 180 Jun 06, 2020 [id number] Dec 06, 2019 [facility] 15 TRAMADOL HCL 50MG TAB Discontinued TAKE 1 TO 2 TABLET S BY MOUTH EVERY 6 HOURS NEEDED FOR PAIN 180 Dec 14, 2019 [id number] Nov 15, 2019 DANTE VALVERDE [facility] [place] [facility] TRAMADOL HCL 50MG TAB Discontinued TAKE 1 TO 2 TABLET S BY MOUTH EVERY 6 HOURS NEEDED FOR PAIN 180 Jul 06, 2019 [id number] May 26, 2019 NELLA GROVE [facility] [place] [facility] TRIAMCINOLONE ACETONIDE 0.5% CREAM,TOP Active A PPLY SPARINGLY TO AFFECTED AREA ONCE A DAY NEEDED FOR RASH 45 Jul 15, 2020 [id number] April 01 0 THOM CHAMBERS [facility] [place] [facility] TRIAMCINOLONE ACETONIDE 0.5% CREAM,TOP Discontinued A PPLY SPARINGLY TO AFFECTED AREA ONCE A DAY NEEDED FOR RASH 45 Oct 12, 2019 [id number] Jul REYES,THOM [facility] [place] [facility] Problems (Conditions): All historical and current Section Date Range: From patient's date of to the date document was create d. This section includes a list of Problems (Conditions) know n to [place] for the patient. It includes both active and inacti ve problems (conditions). The data comes from all [place] treatment facilities. Problem Status Problem Code Date of Onset Date of Resolution Comm ent(s) Provider Source Basal cell carcinoma of scalp Active [id number] THOM CHAMBERS [facility] [place] [facility] Chronic back pain Active [id number] TERRIE CHAMBERS [facility] [place] [facility] Chronic kidney disease stage 3 Active [id number] THOM CHAMBERS [facility] [place] [facility] Constipation Active 38444001 THOM CHAMBERS [facility] [place] [facility] Diabetes mellitus Active 56329471 THOM CHAMBERS [facility] [place] [facility] Diabetic neuropathy Active [id number] Neha CHAMBERS [facility] [place] [facility] Essential hypertension Active 75428326 THOM CHAMBERS [facility] [place] [facility] Hyperlipidemia Active 54061429 THOM CHAMBERS [facility] [place] [facility] Hypogonadism Active 13665372 THOM CHMABERS [facility] [place] [facility] Sleep apnea Active 08363699 THOM CHAMBERS [facility] [place] [facility] Radiology Reports: +/- 30 days of the encounter No Data Provided for This Section Pathology Reports: +/- 30 days of the encounter No Data Provided for This Section Encounter Notes: All associated encounter notes This section contains the clinical notes associated to the Encounter. Date/Time Encounter Note(s) Provider Source Sep 22, 2019 09:27 AM NONVA CONSULT: LOCAL TITLE: COMMUNITY CARE CONSULT RESULT NOTE EK STANDARD TITLE: NONVA CONSULT DATE OF NOTE: SEP 22, 2019@09:27 ENTRY DATE: SEP 22, 2019@09:27:27 AUTHOR: PEYTON WU COSIGNER: URGENCY: STATUS: COMPLETED Topic/Procedure: DIABETIC FOOT EVALUATION Institution/Place: [facility] Date of Service: 08/16/19 To refer to the attached scanned document, on the Tools Bar select the Tools, then select Imaging (log in) and then, if needed, select View and display list. /noa/ PEYTON WU WELDING SETTER Signed: 09/22/2019 09:28 PEYTON WU [facility] [place] [facility]
--- OUTSIDE RECORDS SUMMARY | 2020-04-18 10:01 | XMS REPORT ---
Author Author Department [facility] SIMI palacio Organization Department of 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 Date/Time Encounter Type Encounter Description Reason Provider Source Aug 04, 2019 08:00 AM Outpatient Encounter ADMIN PAT ACTIVTIES (MASNO NCT) [facility], [facility] 15 IHE Encounter Template Text [...] Appointment Type Appointment Facili ty Name Aug 16, 2019 01:00 PM AMBULATORY - NONE [facility] [place] [facility] Aug 25, 2019 10:00 AM AMBULATORY - NONE [facility] Sep 15, 2019 12:00 PM AMBULATORY - MEDICINE [facility] Sep 22, 2019 10:00 AM AMBULATORY - NONE [facility] Sep 23, 2019 11:00 AM AMBULATORY - NONE [facility] [place] [facility] Oct 17, 2019 03:00 PM AMBULATORY - NONE [facility] [place] [facility] Oct 20, 2019 10:00 AM AMBULATORY - NONE [facility] Nov 10, 2019 12:00 PM AMBULATORY - MEDICINE [facility] IN Nov 16, 2019 02:00 PM [facility] - [facility] [place] [facility] Nov 16, 2019 03:00 PM AMBULATORY - NONE [facility] [place] [facility] Nov 17, 2019 10:00 AM AMBULATORY - NONE [facility] Dec 01, 2019 11:30 AM AMBULATORY - MEDICINE [facility] Dec 14, 2019 03:00 PM AMBULATORY - NONE [facility] [place] [facility] Dec 15, 2019 01:00 PM AMBULATORY - NONE [facility] Jan 12, 2020 10:00 AM AMBULATORY - NONE [facility] Jan 26, 2020 03:00 PM AMBULATORY - NONE [facility] [place] [facility] Surgical Procedures: [...] Range Comment Jul 07, 2019 09:11 AM [facility] PTH INTACT Specimen Type: PLASMA No comment entered. PTH INTACT 45.8 pg/mL 8.7-77.7 Jul 07, 2019 09:11 AM [facility] CBC & DIFF Specimen Type: BLOOD No [...] 0.8 % Jul 07, 2019 09:11 AM [facility] URINALYSIS Specimen Type: URINE No comment entered. [...] Trace /HPF Jul 07, 2019 09:11 AM [facility] MAGNESIUM (mg/dL) Specimen Type: PLASMA No comment entered. MAGNESIUM (mg/dL) 1.8 mg/dl 1.6-2.6 Jul 07, 2019 09:11 AM [facility] URIC ACID (mg/dL) Specimen Type: PLASMA No comment entered. URIC ACID (mg/dL) 6.7 mg/dL 3.5-7.2 Jul 07, 2019 09:11 AM [facility] VITAMIN D (25-OH) Specimen Type: SERUM No comment entered. VITAMIN D (25-OH) 42.9 ng/mL 30.0-96.0 Jul 07, 2019 09:11 AM [facility] MICROALBUMIN (CO,EK) Specimen Type: URINE No comment entered. *MICROALBUMIN(CONC) 46.6 mg/dL - *MICROALBUMIN(SPOT) 158 mcg/mg cr HH 0-29 *CREATININE mg/dL 295.0 mg/dl Not Avail. Jul 07, 2019 09:11 AM [facility] HEPATIC FUNCTION PANE L Specimen Type: PLASMA No comment entered. PROTEIN,TOTAL 6.1 g/dL 6.0-8.6 ALBUMIN 3.9 g/dl 3.4-5.0 TOTAL BILIRUBIN 0.4 mg/dL 0.2-1.2 DIRECT BILIRUBIN 0.2 mg/dL 0-0.5 ASPARTATE TRANSAMINASE 29 U/L 5-34 ALANINE AMINOTRANSFERASE 24 U/L 8-40 ALKALINE PHOSPHATASE 91 U/L 40-150 Jul 07, 2019 09:11 AM [facility] RENAL FUNCTION PANEL Specimen Type: PLASMA No comment entered. *CREATININE 1.22 mg/dL 0.7-1.3 UREA NITROGEN mg/dL 13 mg/dL 9-25 GLUCOSE 152 mg/dL H 72-99 SODIUM 140 mEq/L 136-145 POTASSIUM 3.3 mEq/L L 3.5-5.0 CALCIUM (mg/dL) 9.7 mg/dL 8.4-10.4 PHOSPHORUS INORGANIC 3.5 mg/dL 2.3-4.7 ALBUMIN 3.9 g/dl 3.4-5.0 CHLORIDE 99 mEq/L 98-107 CO2 31 mEq/L 22-31 EGFR 58.2 Jul 07, 2019 09:11 AM [facility] TAB[facility] Specimen Type: PLASMA No comment [...] Adverse Reactions (ADR s) on record with [place] for the patient. The data comes from a ll [place] treatment facilities. It does not list Allergies/ADRs that were removed or entered in error. Some allergies/ADRs may be reported in t Immunization section. Allergen Event Date Event Type Reaction(s) Severity Source LISINOPRIL Dec 01, 2017 Propensity to adverse reactions to drug (disorder) Renal impairment [facility] 15 METFORMIN Dec 01, 2017 Propensity to adverse reactions to drug (disorder) Renal impairment [facility] 15 Medications: VA dispensed (-15 months) and Non-VA Documented (Obtained Outside A) Section Date Range: 1) prescriptions processed by a [facility] pharmacy in the last 15 m [facility], and 2) all medications recorded in the [...] available).Discontinued = A prescription stopped by a [place] provider. It is no longer available to [...] TIMES A DAY 400 Sep 12, 2020 [id number] Feb 29, 2020 ELEUTERIO LIVINGSTON [facility] ACCU-CHEK ROSINA PLUS (GLUCOSE) TEST STRIP Discontinued USE 1 STRIP FOR TESTING FOUR TIMES A DAY 400 Sep 15, 2019 [id number] Jun 13, 2019 ELEUTERIO LARA [facility] ALCOHOL PREP PAD Discontinued USE 1 PAD ON SKIN FOUR TIMES A DAY 40 0 Apr 25, 2020 [id number] Nov 29, 2019 E[facility]ERIO [facility]IV[facility] [place] [facility] ALCOHOL PREP PAD Discontinued USE 1 PAD ON SKIN FOUR TIMES A DAY 40 0 Sep 15, 2019 [id number] Apr 18, 2019 ELEUTERIO LIVINGSTON [facility] ALLOPURINOL 100MG TAB Active TAKE ONE TABLET BY MOUTH ONCE A DAY FOR GOUT. TAKE WITH PLENTY OF WATER 90 Sep 23, 2020 [id number] Mar 05, 2020 SILVINA CHAMBERS [facility] [place] ALLOPURINOL 100MG TAB Discontinued TAKE ONE TABLET BY MOUTH ONCE A DAY FOR GOUT. TAKE WITH PLENTY OF WATER 90 Dec 30, 2019 [id number] Sep 17, 2019 THOM SHARPE [facility] [place] [facility] ALOGLIPTIN 12.5MG TAB Active TAKE ONE TABLET BY MOUTH O NCE A DAY FOR DIABETES 90 Sep 12, 2020 [id number] Mar 04, 2020 ELEUTERIO LIVINGSTON [facility] [place] [facility] ALOGLIPTIN 12.5MG TAB Discontinued TAKE ONE TABLET BY MOUTH ONCE A DAY FOR DIABETES 90 Dec 22, 2019 [id number] Jun 18, 2019 BALTRUSAITIS,ELEUTERIO Larry [facility] [place] [facility] AMLODIPINE BESYLATE 10MG TAB Discontinued TAKE ONE TA BLET BY MOUTH EVERY MORNING FOR HEART/BLOOD PRESSURE 90 Jun 10, 2019 [id number] Feb 25, 2019 MONIKA HAMMER [facility] [place] [facility] AMLODIPINE BESYLATE 10MG TAB TAKE ONE TA BLET BY MOUTH EVERY MORNING FOR HEART/BLOOD PRESSURE 90 Apr 12, 2020 [id number] Feb 10, 2020 SILVINA CHAMBERS [facility] ASPIRIN 81MG TAB,CHEWABLE Non-VA CHEW ONE TABLET BY MOUTH ONCE A DAY Non-VA Documented by: MEGAN HAWK nted at: [facility] ATORVASTATIN CA 20MG TAB Active TAKE ONE TABLET BY MOUTH ONCE A DAY FOR CHOLESTEROL. REPORT ANY UNEXPLAINED MUSCLE PAIN OR WEAKNESS TO YOUR DOCTOR. 90 Jan 02, 2021 [id number] March 24, 2020 NELLA GROVE [facility] 15 ATORVASTATIN CA 40MG TAB Discontinued TAKE ONE-HALF T ABLET BY MOUTH AT BEDTIME FOR CHOLESTEROL. REPORT ANY UNEXPLAINED MUSCLE PAIN OR WEAKNESS TO YOUR DOCTOR. 45 Jul 15, 2020 [id number] Oct 14, 2019 THOM CHAMBERS [facility] [place] ATORVASTATIN CA 40MG TAB Discontinued TAKE ONE-HALF T ABLET BY MOUTH AT BEDTIME FOR CHOLESTEROL. REPORT ANY UNEXPLAINED MUSCLE PAIN OR WEAKNESS TO YOUR DOCTOR. 45 Oct 12, 2019 [id number] Jul 16, 2019 THOM CHAMBERS [facility] [place] [facility] CALCIUM CARBONATE 500MG TAB,CHEWABLE Non-VA CHEW ONE TABLET BY MOUTH PRN Non-VA Documented by: THOM CHAMBERS nted at: [facility] CHLORTHALIDONE 25MG TAB Active TAKE ONE TABLET BY MOUTH ONCE A DAY 90 Jul 01, 2020 [id number] March 19, 2020 MONIKA HAMMER [facility] [place] CHLORTHALIDONE 25MG TAB Discontinued TAKE ONE TABLET BY MOUTH ONCE A DAY 90 Jun 16, 2019 [id number] Apr 12, 2019 MONIKA HAMMER [facility] [place] [facility] CHOLECALCIFEROL 1000UNT TAB Non-VA TAKE ONE TABLET BY MOUTH EVERY OTHER DAY Non-VA Docume nted by: MEGAN HAWK Docume nted at: [facility] CYANOCOBALAMIN 1000MCG/ML INJ Active INJECT 100 0 MCG (1 ML) INTRAMUSCULARLY EVERY MONTH FOR B12 SUPPLEMENTATION. 3 Nov 03, 2020 [id number] Apr 23, 2020 [facility] [place] [facility] CYANOCOBALAMIN 1000MCG/ML INJ Discontinued INJECT 100 0 MCG (1 ML) INTRAMUSCULARLY EVERY MONTH FOR B12 SUPPLEMENTATION. 3 Nov 17 0 [id number] Aug 07, 2019 [facility] [place] [facility] DIPHENHYDRAMINE HCL 25MG CAP Non-VA TAKE 1 CAPSULE BY MOUTH PRN Non-VA Documented by: THOM CHAMBERS Docume nted at: [facility] DOCUSATE NA 100MG CAP No n-VA TAKE 2 CAPSULES BY MOUTH ONCE A DAY Non-VA Documented by: THOM CHAMBERS Docume nted at: [facility] FISH OIL 1000MG (500MG DHA/EPA) CAP,ORAL Non-VA TAKE 1 CAPSULE BY MOUTH ONCE A DAY Non-VA Documented by: MEGAN HAWK Docume nted at: [facility] GABAPENTIN 100MG CAP Active TAKE 1 CAPSULE BY M OUTH EVERY MORNING AND TAKE 1 CAPSULE BY MOUTH AT NOON AND TAKE 2 CAPSULES BY MOUTH AT BEDTIME 360 Jul 06, 2020 [id number] March 31, 2020 ELEUTERIO LIVINGSTON [facility] [place] [facility] GLUCAGON 1MG/GABRIELLA INJ,EMERGENCY KIT INJEC T 1MG SUBCUTANEOUSLY NEEDED FOR SEVERE HYPOGLYCEMIA 1 Nov 30, 2019 [id number] Nov 03, 2019 [facility] [place] [facility] INSULIN,ASPART,HUMAN 100U/ML,NOVOLOG,FLEXPEN,3ML Active: On Hold INJECT 20 UNITS SUBCUTANEOUSLY BEFORE BREAKFAST AND INJECT 20 UNITS BEFORE LUNCH AND INJECT 26 UNITS BEFORE SUPPER AND INJECT 24 UNITS SNACK FOR BLOOD SUGAR CONTROL. ADMINISTER 10 MINUTES BEFORE FOOD DIRECTED. REFRIGERATE UN-OPENED PENS. DISCARD CARTRIDGE 28 DAYS AFTER OPENING. PLUS CORRECTION Mar 01, 2021 [id number] ELEUTERIO LIVINGSTON [facility] [place] [facility] INSULIN,ASPART,HUMAN 100U/ML,NOVOLOG,FLEXPEN,3ML Discontinue d INJECT 20 UNITS SUBCUTANEOUSLY BEFORE BREAKFAST AND INJECT 20 UNITS BEFORE LUNCH AND INJECT 24 UNITS BEFORE SUPPER AND INJECT 24 UNITS SNACK FOR BLOOD SUGAR CONTROL. ADMINISTER 10 MINUTES BEFORE FOOD DIRECTED. REFRIGERATE UN-OPENED PENS. DISCARD CARTRIDGE 28 DAYS AFTER OPENING. PLUS CORRECTION 30 Jan 26, 2021 [id number] Jan 28, 2020 [facility] [place] [facility] INSULIN,ASPART,HUMAN 100U/ML,NOVOLOG,FLEXPEN,3ML Discontinue d INJECT 20 UNITS SUBCUTANEOUSLY BEFORE MEALS FOR BLOOD SUGAR CONTROL. ADMINISTER 10 MINUTES BEFORE FOOD DIRECTED. REFRIGERATE UN-OPENED PENS. DISCARD CARTRIDGE 28 DAYS AFTER OPENING. PLUS CORRECTION FOR BLOOD SUGAR CONTROL. ADMINISTER 10 MINUTES BEFORE FOOD DIRECTED. REFRIGERATE UN-OPENED PENS. DISCARD CARTRIDGE 28 DAYS AFTER OPENING. PLUS CORRECTION 30 Nov 16, 2020 [id number] Nov 16 [facility] [place] [facility] INSULIN,ASPART,HUMAN 100U/ML,NOVOLOG,FLEXPEN,3ML Discontinue d INJECT 15 UNITS SUBCUTANEOUSLY EVERY MORNING BEFORE MEAL AND INJECT 15 UNITS WITH LUNCH AND INJECT 15 UNITS WITH SUPPER AND INJECT 20 UNITS WITH SNACK FOR BLOOD SUGAR CONTROL. ADMINISTER 10 MINUTES BEFORE FOOD DIRECTED. REFRIGERATE UN-OPENED PENS. DISCARD CARTRIDGE 28 DAYS AFTER OPENING. Dec 22, 2019 [id number] Oct 12, 2019 [facility] [place] [facility] INSULIN,GLARGINE,HUMAN 100 UNIT/ML INJ,SOLOSTAR,3ML Active INJECT 50 UNITS SUBCUTANEOUSLY EVERY MORNING FOR BLOOD SUGAR CONTROL. ADMINISTER AT SAME TIME EACH DAY DIRECTED. DISCARD ANY OPEN CARTRIDGE AFTER 28 DAYS. Sep 23, 2020 [id number] Jan 28, 2020 [facility] [place] [facility] INSULIN,GLARGINE,HUMAN 100 UNIT/ML INJ,SOLOSTAR,3ML Disconti nued INJECT 45 UNITS SUBCUTANEOUSLY EVERY MORNING FOR BLOOD SUGAR CONTROL. ADMINISTER AT SAME TIME EACH DAY DIRECTED. DISCARD ANY OPEN CARTRIDGE AFTER 28 DAYS. Oct 23, 2019 [id number] Aug 30, 2019 [facility] [place] [facility] LACTOBACILLUS ACIDOPHILUS TAB,CHEWABLE Non-VA CHEW ONE TABLET BY MOUTH ONCE A DAY Non-VA Documented by: MEGAN HAWK nted at: [facility] LANCET,SOFTCLIX Active USE LANCET 5 TIME S A DAY FOR TESTING BLOOD GLUCOSE DIRECTED 500 Dec 28, 2020 [id number] March 19, 2020 ELEUTERIO LIVINGSTON [facility] [place] [facility] LANCET,SOFTCLIX Discontinued USE LANCET 5 TIME S A DAY FOR TESTING BLOOD GLUCOSE DIRECTED 500 Jan 11, 2020 [id number] Sep 29, 2019 [place] ITISELEUTERIO Laron [facility] [place] [facility] MAGNESIUM OXIDE 400MG TAB Non-VA TAKE ONE TABLET BY MOUTH ONCE A DAY Non-VA Documented by: MEGAN HAWK nted at: [facility] METOPROLOL SUCCINATE 200MG TAB,SA TAKE O NE-HALF TABLET BY MOUTH EVERY EVENING FOR HEART/BLOOD PRESSURE. SWALLOW WHOLE, DO NOT CRUSH OR CHEW (TABLETS MAY BE CUT IN HALF). 45 March 18, 2020 [id number] Dec 28, 2019 STANISLAV HAMMER [facility] NEEDLE 22G 1.5IN USE NEEDLE FOR EVERY MONTH 1 Nov 12, 2019 [id number] Feb 07, 2019 ADELAIDA CLIFFORD [facility] [place] [facility] NEEDLE,PEN 31G,5MM Discontinued USE NEEDLE SUBCUTANE OUSLY 5 TIMES A DAY - THIS IS A SINGLE USE NEEDLE AND SHOULD BE DISCARDED AFTER USE 500 Dec 21, 2019 [id number] Sep 28, 2019 ELEUTERIO LIVINGSTON [facility] [place] [facility] POTASSIUM CHLORIDE 10MEQ TAB,SA Active TAKE TWO TABLETS BY MOUTH TWO TIMES A DAY FOR POTASSIUM SUPPLEMENTATIONTAKE WITH FOOD 360 Dec 12, 2020 [id number] Mar 02, 2020 YANELY QUINTERO [facility] POTASSIUM CHLORIDE 10MEQ TAB,SA Discontinued TAKE ONE TABLET BY MOUTH THREE TIMES A DAY WITH MEALS FOR POTASSIUM SUPPLEMENTATIONTAKE WITH FOOD 180 March 16, 2020 [id number] Nov 29, 2019 ELEUTERIO [facility]IVING[facility]ON [facility] [place] [facility] POTASSIUM CHLORIDE 10MEQ TAB,SA Discontinued TAKE ONE TABLET BY MOUTH THREE TIMES A DAY WITH MEALS FOR POTASSIUM SUPPLEMENTATIONTAKE WITH FOOD 180 May 26, 2019 [id number] Jan 24, 2019 YANELY QUINTERO [facility] [place] [facility] SYRINGE 2.5-3ML/NDL 25G 1IN Active USE 1 SYRINGE EVERY MONTH 3 Feb 21, 2021 [id number] March 20, 2020 [facility] SYRINGE 2.5-3ML/NDL 25G 1IN Discontinued USE 1 SYRINGE EVERY Thu 3 March 18, 2020 [id number] Dec 21, 2019 [facility] TESTOSTERONE CYPIONATE 200MG/ML INJ,1ML (IN OIL) Active INJECT 200 MG (1 ML) INTRAMUSCULARLY EVERY MONTH FOR HORMONE REPLACEMENT 1 May 18, 2020 [id number] April 06, 2020 ADELAIDA CLIFFORD [facility] [place] TESTOSTERONE CYPIONATE 200MG/ML INJ,1ML (IN OIL) Discontinue d INJECT 200 MG (1 ML) INTRAMUSCULARLY EVERY MONTH FOR HORMONE REPLACEMENT March 25, 2020 [id number] Oct 25, 2019 ADELAIDA CLIFFORD [facility] [place] [facility] [place] TESTOSTERONE CYPIONATE 200MG/ML INJ,1ML (IN OIL) Discontinue d INJECT 200 MG (1 ML) INTRAMUSCULARLY EVERY MONTH FOR HORMONE REPLACEMENT 1 Nov 06, 2019 [id number] Sep 25, 2019 ADELAIDA CLIFFORD [facility] [place] TESTOSTERONE CYPIONATE 200MG/ML INJ,1ML (IN OIL) Discontinue d INJECT 200 MG (1 ML) INTRAMUSCULARLY EVERY MONTH FOR HORMONE REPLACEMENT 1 May 14, 2019 [id number] Apr 10, 2019 ADELAIDA CLIFFORD [facility] [place] [facility] TRAMADOL HCL 50MG TAB Active TAKE 1 TO 2 TABLET S BY MOUTH EVERY 6 HOURS NEEDED FOR PAIN 180 Jul 21, 2020 [id number] March 30, 2020 [facility] TRAMADOL HCL 50MG TAB Discontinued TAKE 1 TO 2 TABLET S BY MOUTH EVERY 6 HOURS NEEDED FOR PAIN 180 Jun 06, 2020 [id number] Jan 11, 2020 [facility] TRAMADOL HCL 50MG TAB Discontinued TAKE 1 TO 2 TABLET S BY MOUTH EVERY 6 HOURS NEEDED FOR PAIN 180 Jun 06, 2020 [id number] Dec 06, 2019 [facility] TRAMADOL HCL 50MG TAB Discontinued TAKE 1 TO 2 TABLET S BY MOUTH EVERY 6 HOURS NEEDED FOR PAIN 180 Dec 14, 2019 [id number] Nov 15, 2019 DANTE VALVERDE [facility] [place] TRAMADOL HCL 50MG TAB Discontinued TAKE 1 TO 2 TABLET S BY MOUTH EVERY 6 HOURS NEEDED FOR PAIN 180 Jul 06, 2019 [id number] May 26, 2019 NELLA GROEV [facility] [place] TRIAMCINOLONE ACETONIDE 0.5% CREAM,TOP Active A PPLY SPARINGLY TO AFFECTED AREA ONCE A DAY NEEDED FOR RASH 45 Jul 15, 2020 [id number] April 01 0 REYESTHOM [facility] [place] TRIAMCINOLONE ACETONIDE 0.5% CREAM,TOP Discontinued A PPLY SPARINGLY TO AFFECTED AREA ONCE A DAY NEEDED FOR RASH 45 Oct 12, 2019 [id number] Jul REYESTHOM [facility] [place] [facility] Problems (Conditions): All [...] Source Basal cell carcinoma of scalp Active [id number] THOM CHAMBERS [facility] [place] [facility] Chronic back pain Active [id number] TERRIE CHAMBERS [facility] [place] [facility] Chronic kidney disease stage 3 Active [id number] THOM CHAMBERS [facility] [place] [facility] Constipation Active [id number] THOM CHAMBERS [facility] [place] Diabetes mellitus Active [id number] THOM CHAMBERS [facility] [place] [facility] Diabetic neuropathy Active [id number] Neha CHAMBERS [facility] [place] [facility] Essential hypertension Active [id number] THOM CHAMBERS [facility] [place] [facility] Hyperlipidemia Active [id number] THOM CHAMBERS [facility] [place] [facility] Hypogonadism Active [id number] THOM CHAMBERS [facility] [place] [facility] Sleep apnea Active [id number] THOM CHAMBERS [facility] [place] [facility] Radiology Reports: +/- 30 days of the encounter No Data Provided for This Section Pathology Reports: +/- 30 days of the encounter No Data Provided for This Section Encounter Notes: All associated encounter notes This section contains the clinical notes associated to the Encounter. Date/Time Encounter Note(s) Provider Source Aug 04, 2019 08:00 AM SCANNED NOTE: LOCAL TITLE: SOSA-SCANNED NON-VA RECORD(S) STANDARD TITLE: SCANNED NOTE DATE OF NOTE: AUG 04, 2019@08:00 ENTRY DATE: AUG 26, 2019@13:28:05 AUTHOR: RONA ARIZA EXP COSIGNER: URGENCY: STATUS: COMPLETED See [facility]/Nephrology Biannual Follow Up Visit /es/ RONA ARIZA [employer] Signed: 08/26/2019 13:28 RONA ARIZA [facility] 15
--- OUTSIDE RECORDS SUMMARY | 2020-04-18 10:01 | XMS REPORT | Encounter Summary ---
Author Author Department of [facility] SIMI palacio Organization Department of [facility] Address [address] [place] [phone] Phone Unavailable Care Team Providers Care Oil [employer] Roughneck Name Role Phone THOM CHAMBERS PCP Unavailable [...] [employer] [facility] RE[facility] (R) MEDICARE ADVANTAGE [facility] ([facility]) Nov 09, 2017 [id number] [phone] SIMI COVARRUBIAS PATIENT [employer] REP (WNR) MEDICARE [facility] (R) Nov 09, 2017 [id number] [phone] SIMI COVARRUBIAS PATIENT [employer] MCR (WNR) MEDICARE ADVANTAGE [facility] (R) Nov 09, 2019 [id number] SIMI COVARRUBIAS PATIENT Selected Encounter This section includes the information on record at [place] for the Encounter. Date/Time Encounter Type Encounter Description Reason Provider Source Jul 28, 2019 10:00 AM OFFICE/OUTPATIENT VISIT EST PRIMARY CARE/M EDICINE ICD-10-CM R86.1 Abn lev hormones in specimens from male genital organs with Provider Comments: Hypogonadism (SCT [id number]) THOM CHAMBERS [facility] IHE Encounter Template Text not used by [place] Assessments - Encounter Diagnoses This section includes the primary and secondary diag noses documented for the Encounter. Date/Time Primary/Secondary Diagnosis Diagnosis Name Provider Source Jul 28, 2019 10:18 AM PRIMARY Abn lev hormones i n specimens from male genital organs KILLIAN DAVID [facility] Plan of Treatment: Future Appointments (+ [...] 04, 2019 11:00 AM AMBULATORY - NONE [facility] [place] [facility] Aug 16, 2019 01:00 PM AMBULATORY - NONE [facility] Aug 25, 2019 10:00 AM AMBULATORY - NONE [facility] Sep 15, 2019 12:00 PM AMBULATORY - MEDICINE [facility] IN Sep 22, 2019 10:00 AM AMBULATORY - NONE [facility] Sep 23, 2019 11:00 AM AMBULATORY - NONE [facility] Oct 17, 2019 03:00 PM AMBULATORY - NONE [facility] Oct 20, 2019 10:00 AM AMBULATORY - NONE [facility] Nov 10, 2019 12:00 PM AMBULATORY - MEDICINE [facility] IN Nov 16, 2019 02:00 PM AMBULATORY - SURGERY [facility] [place] [facility] Nov 16, 2019 03:00 PM AMBULATORY - NONE [facility] Nov 17, 2019 10:00 AM AMBULATORY - NONE [facility] Dec 01, 2019 11:30 AM AMBULATORY - MEDICINE [facility] IN Dec 14, 2019 03:00 PM AMBULATORY - NONE [facility] Dec 15, 2019 01:00 PM AMBULATORY - NONE [facility] Jan 12, 2020 10:00 AM AMBULATORY - NONE [facility] Jan 26, 2020 03:00 PM AMBULATORY - NONE [facility] Surgical Procedures: All [...] Range Comment Jul 07, 2019 09:11 AM [facility] PTH INTACT Specimen Type: PLASMA No comment entered. PTH INTACT 45.8 pg/mL 8.7-77.7 Jul 07, 2019 09:11 AM [facility] CBC & DIFF Specimen Type: BLOOD [...] 0.8 % Jul 07, 2019 09:11 AM [facility] URINALYSIS Specimen Type: URINE No comment [...] Trace /HPF Jul 07, 2019 09:11 AM [facility] MAGNESIUM (mg/dL) Specimen Type: PLASMA No comment entered. MAGNESIUM (mg/dL) 1.8 mg/dl 1.6-2.6 Jul 07, 2019 09:11 AM [facility] URIC ACID (mg/dL) Specimen Type: PLASMA No comment entered. URIC ACID (mg/dL) 6.7 mg/dL 3.5-7.2 Jul 07, 2019 09:11 AM [facility] VITAMIN D (25-OH) Specimen Type: SERUM No comment entered. VITAMIN D (25-OH) 42.9 ng/mL 30.0-96.0 Jul 07, 2019 09:11 AM [facility] MICROALBUMIN (CO,EK) Specimen Type: URINE No comment entered. *MICROALBUMIN(CONC) 46.6 mg/dL - *MICROALBUMIN(SPOT) 158 mcg/mg cr 0-29 *CREATININE mg/dL 295.0 mg/dl Not Avail. Jul 07, 2019 09:11 AM [facility] HEPATIC FUNCTION PANE L Specimen Type: PLASMA No comment entered. PROTEIN,TOTAL 6.1 g/dL 6.0-8.6 ALBUMIN 3.9 g/dl 3.4-5.0 TOTAL BILIRUBIN 0.4 mg/dL 0.2-1.2 DIRECT BILIRUBIN 0.2 mg/dL 0-0.5 ASPARTATE TRANSAMINASE 29 U/L 5-34 ALANINE AMINOTRANSFERASE 24 U/L 8-40 ALKALINE PHOSPHATASE 91 U/L 40-150 Jul 07, 2019 09:11 AM [facility] RENAL FUNCTION PANEL Specimen Type: PLASMA No comment entered. *CREATININE 1.22 mg/dL 0.7-1.3 UREA NITROGEN mg/dL 13 mg/dL 9-25 GLUCOSE 152 mg/dL H 72-99 SODIUM 140 mEq/L 136-145 POTASSIUM 3.3 mEq/L L 3.5-5.0 CALCIUM (mg/dL) 9.7 mg/dL 8.4-10.4 PHOSPHORUS INORGANIC 3.5 mg/dL 2.3-4.7 ALBUMIN 3.9 g/dl 3.4-5.0 CHLORIDE 99 mEq/L 98-107 CO2 31 mEq/L 22-31 EGFR 58.2 Jul 07, 2019 09:11 AM [facility] COMPREHENSIVE VA TABOLIC PANEL Specimen Type: PLASMA No comment [...] in Height Weight Body Mass Index Source Jul 28, 2019 10:01 AM 98 F 56 /min 128/56 mm[Hg] 18 /min 92 % 7 175.3 lb 30 [facility] Immunizations: All administered on the encounter date No Data Provided for This Section Social History: Smoking Status (Most current) and Tobacco Use (All prior to enco unter date) This section includes the most current, and the historical, smoking and tobacco- related health factors from the [place] facility where the Encounter took place. Current Smoking Status This section includes the most current smoking, or tobacco -related health factor, from the [place] facility where the Encounter took place. Date/Time Current Smoking Status Comment Facility Nov 03, 2018 07:59 AM [place]-TOBACCO QUIT 15 YRS OR MORE [facility] Tobacco Use History This section includes a history of the smoking, or tobacco -related health factors, that were collected on or before the date of the Encoun ter. The data comes from the [place] facility where the Encounter took place. Date/Time Smoking Status/Tobacco Use Comment [facility] it Nov 03, 2018 07:59 AM [place]-TOBACCO QUIT 15 YRS OR MORE [facility] Oct 23, 2017 07:35 AM TOBACCO LIFETIME NON-USER [facility] Advance Directives: All historical and current [...] adverse reactions to drug (disorder) Renal impairment [facility] 15 METFORMIN Dec 01, 2017 Propensity to adverse reactions to drug (disorder) Renal impairment [facility] VISN 15 Medications: VA dispensed (-15 months) and Non-VA Documented (Obtained Outside V A) Section Date Range: 1) prescriptions processed by a VA pharmacy in the last 15 m ont, [...] TIMES A DAY 400 Sep 12, 2020 [id number] Feb 29, 2020 BALTRUSAITISLILIBETHSHAINA Larry [facility] ACCU-CHEK ROSINA PLUS (GLUCOSE) TEST STRIP Discontinued USE 1 STRIP FOR TESTING FOUR TIMES A DAY 400 Sep 15, 2019 [id number] Jun 13, 2019 BALTRUSAI ELEUTERIO LEE [facility] ALCOHOL PREP PAD Discontinued USE 1 PAD ON SKIN FOUR TIMES A DAY 40 0 Apr 25, 2020 [id number] Nov 29, 2019 BALTRUSAELEUTERIO QUIGLEY [facility] [place] [facility] ALCOHOL PREP PAD Discontinued USE 1 PAD ON SKIN FOUR TIMES A DAY 40 0 Sep 15, 2019 [id number] Apr 18, 2019 ELEUTERIO LIVINGSTON [facility] ALLOPURINOL 100MG TAB Active TAKE ONE TABLET BY MOUTH ONCE A DAY FOR GOUT. TAKE WITH PLENTY OF WATER 90 Sep 23, 2020 [id number] Mar 05, 2020 SILVINA CHAMBERS [facility] ALLOPURINOL 100MG TAB Discontinued TAKE ONE TABLET BY MOUTH ONCE A DAY FOR GOUT. TAKE WITH PLENTY OF WATER 90 Dec 30, 2019 [id number] Sep 17, 2019 THOM SOLIS [facility] ALOGLIPTIN 12.5MG TAB Active TAKE ONE TABLET BY MOUTH O NCE A DAY FOR DIABETES 90 Sep 12, 2020 [id number] Mar 04, 2020 ELEUTERIO LIV[place]ON [facility] [place] [facility] ALOGLIPTIN 12.5MG TAB Discontinued TAKE ONE TABLET BY MOUTH ONCE A DAY FOR DIABETES 90 Dec 22, 2019 [id number] Jun 18, 2019 ELEUTERIO LIV[place]STON [facility] AMLODIPINE BESYLATE 10MG TAB Discontinued TAKE ONE TA BLET BY MOUTH EVERY MORNING FOR HEART/BLOOD PRESSURE 90 Jun 10, 2019 [id number] Feb 25, 2019 MONIKA RIVERA [facility] AMLODIPINE BESYLATE 10MG TAB TAKE ONE TA BLET BY MOUTH EVERY MORNING FOR HEART/BLOOD PRESSURE 90 Apr 12, 2020 [id number] Feb 10, 2020 SIVLINA CHAMBERS [facility] ASPIRIN 81MG TAB,CHEWABLE Non-VA CHEW ONE TABLET BY MOUTH ONCE A DAY Non-VA Documented by: MEGAN HAWK Docume nted at: [facility] ATORVASTATIN CA 20MG TAB Active TAKE ONE TABLET BY MOUTH ONCE A DAY FOR CHOLESTEROL. REPORT ANY UNEXPLAINED MUSCLE PAIN OR WEAKNESS TO YOUR DOCTOR. 90 Jan 02, 2021 [id number] March 24, 2020 MODELNELLA [facility] 15 ATORVASTATIN CA 40MG TAB Discontinued TAKE ONE-HALF T ABLET BY MOUTH AT BEDTIME FOR CHOLESTEROL. REPORT ANY UNEXPLAINED MUSCLE PAIN OR WEAKNESS TO YOUR DOCTOR. 45 Jul 15, 2020 [id number] Oct 14, 2019 THOM CHAMBERS [facility] ATORVASTATIN CA 40MG TAB Discontinued TAKE ONE-HALF T ABLET BY MOUTH AT BEDTIME FOR CHOLESTEROL. REPORT ANY UNEXPLAINED MUSCLE PAIN OR WEAKNESS TO YOUR DOCTOR. 45 Oct 12, 2019 [id number] Jul 16, 2019 THOM CHAMBERS [facility] CALCIUM CARBONATE 500MG TAB,CHEWABLE Non-VA CHEW ONE TABLET BY MOUTH PRN Non-VA Documented by: THOM CHAMBERS nted at: [facility] CHLORTHALIDONE 25MG TAB Active TAKE ONE TABLET BY MOUTH ONCE A DAY 90 Jul 01, 2020 [id number] March 19, 2020 MONIKA HAMMER [facility] CHLORTHALIDONE 25MG TAB Discontinued TAKE ONE TABLET BY MOUTH ONCE A DAY 90 Jun 16, 2019 [id number] Apr 12, [address] [facility] [place] [facility] CHOLECALCIFEROL 1000UNT TAB Non-VA TAKE ONE TABLET BY MOUTH EVERY OTHER DAY Non-VA Docume nted by: MEGAN HAWK Docume nted at: [facility] CYANOCOBALAMIN 1000MCG/ML INJ Active INJECT 100 0 MCG (1 ML) INTRAMUSCULARLY EVERY MONTH FOR B12 SUPPLEMENTATION. 3 Nov 03, 2020 [id number] Apr 23, 2020 THOM CHAMBERS [facility] CYANOCOBALAMIN 1000MCG/ML INJ Discontinued INJECT 100 0 MCG (1 ML) INTRAMUSCULARLY EVERY MONTH FOR B12 SUPPLEMENTATION. 3 Nov 17 0 [id number] Aug 07, 2019 THOM CHAMBERS [facility] DIPHENHYDRAMINE HCL 25MG CAP Non-VA TAKE 1 CAPSULE BY MOUTH PRN Non-VA Documented by: THOM CHAMBERS nted at: [facility] DOCUSATE NA 100MG CAP No n-VA TAKE 2 CAPSULES BY MOUTH ONCE A DAY Non-VA Documented by: THOM CHAMBERS nted at: [facility] FISH OIL 1000MG (500MG DHA/EPA) CAP,ORAL Non-VA TAKE 1 CAPSULE BY MOUTH ONCE A DAY Non-VA Documented by: MEGAN HAWKume nted at: [facility] GABAPENTIN 100MG CAP Active TAKE 1 CAPSULE BY M OUTH EVERY MORNING AND TAKE 1 CAPSULE BY MOUTH AT NOON AND TAKE 2 CAPSULES BY MOUTH AT BEDTIME 360 Jul 06, 2020 [id number] March 31, 2020 ELEUTERIO LIV[place]ON [facility] [place] [facility] GLUCAGON 1MG/GABRIELLA INJ,EMERGENCY KIT INJEC T 1MG SUBCUTANEOUSLY NEEDED FOR SEVERE HYPOGLYCEMIA 1 Nov 30, 2019 [id number] Nov 03, 2019 THOM CHAMBERS [facility] INSULIN,ASPART,HUMAN 100U/ML,NOVOLOG,FLEXPEN,3ML Active: On Hold INJECT 20 UNITS SUBCUTANEOUSLY BEFORE BREAKFAST AND INJECT 20 UNITS BEFORE LUNCH AND INJECT 26 UNITS BEFORE SUPPER AND INJECT 24 UNITS SNACK FOR BLOOD SUGAR CONTROL. ADMINISTER 10 MINUTES BEFORE FOOD DIRECTED. REFRIGERATE UN-OPENED PENS. DISCARD CARTRIDGE 28 DAYS AFTER OPENING. PLUS CORRECTION Mar 01, 2021 [id number] ELEUTERIO LIV[place]STON [facility] INSULIN,ASPART,HUMAN 100U/ML,NOVOLOG,FLEXPEN,3ML Discontinue d INJECT 20 UNITS SUBCUTANEOUSLY BEFORE BREAKFAST AND INJECT 20 UNITS BEFORE LUNCH AND INJECT 24 UNITS BEFORE SUPPER AND INJECT 24 UNITS SNACK FOR BLOOD SUGAR CONTROL. ADMINISTER 10 MINUTES BEFORE FOOD DIRECTED. REFRIGERATE UN-OPENED PENS. DISCARD CARTRIDGE 28 DAYS AFTER OPENING. PLUS CORRECTION 30 Jan 26, 2021 [id number] Jan 28, 2020 ELEUTERIO LIVINGSTON [facility] INSULIN,ASPART,HUMAN 100U/ML,NOVOLOG,FLEXPEN,3ML Discontinue d INJECT 20 UNITS SUBCUTANEOUSLY BEFORE MEALS FOR BLOOD SUGAR CONTROL. ADMINISTER 10 MINUTES BEFORE FOOD DIRECTED. REFRIGERATE UN-OPENED PENS. DISCARD CARTRIDGE 28 DAYS AFTER OPENING. PLUS CORRECTION FOR BLOOD SUGAR CONTROL. ADMINISTER 10 MINUTES BEFORE FOOD DIRECTED. REFRIGERATE UN-OPENED PENS. DISCARD CARTRIDGE 28 DAYS AFTER OPENING. PLUS CORRECTION 30 Nov 16, 2020 [id number] Nov 16 ELEUTERIO LIV[place]ON [facility] INSULIN,ASPART,HUMAN 100U/ML,NOVOLOG,FLEXPEN,3ML Discontinue d INJECT 15 UNITS SUBCUTANEOUSLY EVERY MORNING BEFORE MEAL AND INJECT 15 UNITS WITH LUNCH AND INJECT 15 UNITS WITH SUPPER AND INJECT 20 UNITS WITH SNACK FOR BLOOD SUGAR CONTROL. ADMINISTER 10 MINUTES BEFORE FOOD DIRECTED. REFRIGERATE UN-OPENED PENS. DISCARD CARTRIDGE 28 DAYS AFTER OPENING. Dec 22, 2019 [id number] Oct 12, 2019 ELEUTERIO LIV[place]STON [facility] INSULIN,GLARGINE,HUMAN 100 UNIT/ML INJ,SOLOSTAR,3ML Active INJECT 50 UNITS SUBCUTANEOUSLY EVERY MORNING FOR BLOOD SUGAR CONTROL. ADMINISTER AT SAME TIME EACH DAY DIRECTED. DISCARD ANY OPEN CARTRIDGE AFTER 28 DAYS. Sep 23, 2020 [id number] Jan 28, 2020 ELEUTERIO LIV[place]STON [facility] INSULIN,GLARGINE,HUMAN 100 UNIT/ML INJ,SOLOSTAR,3ML Disconti nued INJECT 45 UNITS SUBCUTANEOUSLY EVERY MORNING FOR BLOOD SUGAR CONTROL. ADMINISTER AT SAME TIME EACH DAY DIRECTED. DISCARD ANY OPEN CARTRIDGE AFTER 28 DAYS. Oct 23, 2019 [id number] Aug 30, 2019 ELEUTERIO LIVINGSTON [facility] LACTOBACILLUS ACIDOPHILUS TAB,CHEWABLE Non-VA CHEW ONE TABLET BY MOUTH ONCE A DAY Non-VA Documented by: MEGAN HAWK [facility] LANCET,SOFTCLIX Active USE LANCET 5 TIME S A DAY FOR TESTING BLOOD GLUCOSE DIRECTED 500 Dec 28, 2020 [id number] March 19, 2020 ELEUTERIO LIV[place]ON [facility] LANCET,SOFTCLIX Discontinued USE LANCET 5 TIME S A DAY FOR TESTING BLOOD GLUCOSE DIRECTED 500 Jan 11, 2020 [id number] Sep 29, 2019 [facility]IO [facility] MAGNESIUM OXIDE 400MG TAB Non-VA TAKE ONE TABLET BY MOUTH ONCE A DAY Non-VA Documented by: MEGAN HAWK [facility] METOPROLOL SUCCINATE 200MG TAB,SA TAKE O NE-HALF TABLET BY MOUTH EVERY EVENING FOR HEART/BLOOD PRESSURE. SWALLOW WHOLE, DO NOT CRUSH OR CHEW (TABLETS MAY BE CUT IN HALF). 45 March 18, 2020 [id number] Dec 28, 2019 JAQUELINSTANISLAV Larry [facility] NEEDLE 22G 1.5IN USE NEEDLE FOR EVERY MONTH 1 Nov 12, 2019 [id number] Feb 07, 2019 PAYAM WATTS [facility] NEEDLE,PEN 31G,5MM Discontinued USE NEEDLE SUBCUTANE OUSLY 5 TIMES A DAY - THIS IS A SINGLE USE NEEDLE AND SHOULD BE DISCARDED AFTER USE 500 Dec 21, 2019 [id number] Sep 28, 2019 BALTRUSAITIS,ELEUTERIO L [facility] POTASSIUM CHLORIDE 10MEQ TAB,SA Active TAKE TWO TABLETS BY MOUTH TWO TIMES A DAY FOR POTASSIUM SUPPLEMENTATIONTAKE WITH FOOD 360 Dec 12, 2020 [id number] Mar 02, 2020 [facility] 15 POTASSIUM CHLORIDE 10MEQ TAB,SA Discontinued TAKE ONE TABLET BY MOUTH THREE TIMES A DAY WITH MEALS FOR POTASSIUM SUPPLEMENTATIONTAKE WITH FOOD 180 March 16, 2020 [id number] Nov 29, 2019 BALTRUSAITIS,ELEUTERIO L [facility] [place] [facility] POTASSIUM CHLORIDE 10MEQ TAB,SA Discontinued TAKE ONE TABLET BY MOUTH THREE TIMES A DAY WITH MEALS FOR POTASSIUM SUPPLEMENTATIONTAKE WITH FOOD 180 May 26, 2019 [id number] Jan 24, 2019 [facility] [place] [facility] SYRINGE 2.5-3ML/NDL 25G 1IN Active USE 1 SYRINGE EVERY MONTH 3 Feb 21, 2021 [id number] March 20, 2020 [facility] SYRINGE 2.5-3ML/NDL 25G 1IN Discontinued USE 1 SYRINGE EVERY Thu 3 March 18, 2020 [id number] Dec 21, 2019 [facility] TESTOSTERONE CYPIONATE 200MG/ML INJ,1ML (IN OIL) Active INJECT 200 MG (1 ML) INTRAMUSCULARLY EVERY MONTH FOR HORMONE REPLACEMENT 1 May 18, 2020 [id number] April 06, 2020 PAYAM WATTS [facility] TESTOSTERONE CYPIONATE 200MG/ML INJ,1ML (IN OIL) Discontinue d INJECT 200 MG (1 ML) INTRAMUSCULARLY EVERY MONTH FOR HORMONE REPLACEMENT March 25, 2020 [id number] Oct 25, 2019 PAYMA WATTS [facility] TESTOSTERONE CYPIONATE 200MG/ML INJ,1ML (IN OIL) Discontinue d INJECT 200 MG (1 ML) INTRAMUSCULARLY EVERY MONTH FOR HORMONE REPLACEMENT 1 Nov 06, 2019 [id number] Sep 25, 2019 PAYAM WATTS [facility] TESTOSTERONE CYPIONATE 200MG/ML INJ,1ML (IN OIL) Discontinue d INJECT 200 MG (1 ML) INTRAMUSCULARLY EVERY MONTH FOR HORMONE REPLACEMENT 1 May 14, 2019 [id number] Apr 10, 2019 PAYAM WATTS [facility] TRAMADOL HCL 50MG TAB Active TAKE 1 TO 2 TABLET S BY MOUTH EVERY 6 HOURS NEEDED FOR PAIN 180 Jul 21, 2020 [id number] March 30, 2020 NELLA GROVE [facility], V[facility]N 15 TRAMADOL HCL 50MG TAB Discontinued TAKE 1 TO 2 TABLET S BY MOUTH EVERY 6 HOURS NEEDED FOR PAIN 180 Jun 06, 2020 [id number] Jan 11, 2020 ROSSY GROVE [facility], VISN 15 TRAMADOL HCL 50MG TAB Discontinued TAKE 1 TO 2 TABLET S BY MOUTH EVERY 6 HOURS NEEDED FOR PAIN 180 Jun 06, 2020 [id number] Dec 06, 2019 ROSSY GROVE [facility], V[facility]N 15 TRAMADOL HCL 50MG TAB Discontinued TAKE 1 TO 2 TABLET S BY MOUTH EVERY 6 HOURS NEEDED FOR PAIN 180 Dec 14, 2019 [id number] Nov 15, 2019 DANTE VALVERDE [facility] TRAMADOL HCL 50MG TAB Discontinued TAKE 1 TO 2 TABLET S BY MOUTH EVERY 6 HOURS NEEDED FOR PAIN 180 Jul 06, 2019 [id number] May 26, 2019 ROSSY GROVE [facility] TRIAMCINOLONE ACETONIDE 0.5% CREAM,TOP Active A PPLY SPARINGLY TO AFFECTED AREA ONCE A DAY NEEDED FOR RASH 45 Jul 15, 2020 [id number] April 01 0 [facility] [place] [facility] TRIAMCINOLONE ACETONIDE 0.5% CREAM,TOP Discontinued A PPLY SPARINGLY TO AFFECTED AREA ONCE A DAY NEEDED FOR RASH 45 Oct 12, 2019 [id number] Jul THOM CHAMBERS [facility] Problems (Conditions): All historical [...] Source Basal cell carcinoma of scalp Active [id number] REYESTHOM WALL [facility] [facility] Chronic back pain Active [id number] REYESTERRIE GREGORY [facility] Chronic kidney disease stage 3 Active [id number] THOM CHAMBERS [facility] Constipation Active [id number] [facility] [facility] Diabetes mellitus Active [id number] THOM CHAMBERS [facility] Diabetic neuropathy Active [id number] Neha CHAMBERS SUR[place] [facility] Essential hypertension Active 09500512 REYESTHOM MELLO [facility] [place] [facility] Hyperlipidemia Active [id number] THOM CHAMBERS EA ROSS [facility] [place] [facility] Hypogonadism Active [id number] [facility]YESTHOM [facility] [facility] Sleep apnea Active [id number] THOM CHAMBERS RN [facility] [place] [facility] Radiology Reports: +/- 30 days of the encounter No Data Provided for This Section Pathology Reports: +/- 30 days of the encounter No Data Provided for This Section Encounter Notes: All associated encounter notes This section contains the clinical notes associated to the Encounter. Date/Time Encounter Note(s) Provider Source Jul 28, 2019 10:01 AM NURSING OUTPATIENT NOTE: LOCAL TITLE: EK-NURSING CLINIC CHECK-IN STANDARD TITLE: NURSING OUTPATIENT NOTE DATE OF NOTE: JUL 28, 2019@10:01 ENTRY DATE: JUL 28, 2019@10:12:40 AUTHOR: BARBARA DUNCAN EXP COSIGNER: URGENCY: STATUS: COMPLETED EK-NURSING CLINIC CHECK-IN Has ADDENDA PRIMARY REASON FOR VISIT TODAY: [place] for monthly testosterone injection PATIENT'S GOAL/MISSION FOR THEIR HEALTH: "I want to maintain or improve my health." ALLERGIES/ADR: METFORMIN, LISINOPRIL VITALS: DATE/TIME TEMP PULSE RESP BP PAIN WEIGHT PUL OX 07/28/19 @ 1001 98 56 18 128/56 7 175.3 92 REPRODUCTIVE HISTORY: Concerns regardng sexual/reproductive health: None LEARNING ASSESSMENT: Patient's preferred language for discussing health care is: Estonian Today's learning assessment regarding patient's readiness to learn. Patient reads well. Barriers to Learning: Has no barriers to learning. Preferred Method of Learning: Reading Listening Seeing / Videos Demonstration Return Demonstration Hands On/Doing Education provided as per documentation below: SCREENING FOR PAIN STATUS: Patient reported pain level as 7 (07/28/2019 10:01) on 0 to 10 scale. Pain Scale used: Numerical Pain Scale Patient states current level of pain is: Acceptable Location of pain that most interferes with your life: Back, hands, and feet Characteristics of pain: PAIN QUALITY: Aching, Sharp, Pins & needles Verbal Education Provided: To patient, Pain prevention by early reporting, Pain prevention by exercise and reducing stress [...] other non-urgent communication. EK-V15 Influenza Immunization : [id number] INFLUENZA IMMUNIZATION V1.0 Are you an employee of [employer] [facility]? No. Vaccine not given: Patient refused influenza vaccine. Patient provided CDC Vaccination Information Sheet handout and educated on the importance of receiving a flu vaccination. http://www.cdc.gov/vaccines/hcp/vis/vis-statements/flu.pdf Patient doesn't want a vaccine. Comment: Doesn't take any vaccines. N:Offer MOVE! Program: Discussed with patient the MOVE!/Weight Management Program. The following health risks of overweight/obesity were discussed: heart disease, diabetes, sleep apnea, hypertension, arthritis and certain cancers. Assessed patients readiness to begin weight management activities including the MOVE! Program. Patient offered enrollment into the MOVE!/Weight Management Program. Declined Weight Management (MOVE) Program. N:Pneumococcal PCV13 ([id number]): The patient declines to receive the recommended dose of pneumococcal conjugate vaccine PCV13 (Prevnar 13). Comment: Doesot take any vaccines. OTHER OBSERVATION/INTERVENTION: Pt in clinic today for: Testosterone injection Pt purchased injection medication from [place] [facility]. Patient identity verified using 2 forms of ID: Name and Medication given: Testosterone 200 mg (1 ml) Order Verified:11/21/18 Route: IM Location: RIGHT Mfg: Pfizer Lot#: [id number] Exp: 12/2020 Dx: hypogonadism Initiated: Received locally until 01-07-19, then from the [place]. Pt rock injection w/o difficulty. PLAN: - [facility] injection clinic in 1 month: 08/25/19, - Per [place]'s request, a refill of freddie tosterone was completed by this narrative writer. DISPOSITION: To home at [facility] /noa/ BARBARA DUNCAN RN, BSN Signed: 07/28/2019 10:18 Receipt Acknowledged By: 07/28/2019 12:48 /seven INGRAM 07/28/2019 ADDENDUM STATUS: COMPLETED CORRECTIONS ON IM INJECTION: ORDER VERIFIED: 05/08/2019 PROVIDER: Payam Watts LOT #: [id number] EXP DATE: 02/2021 SITE: LEFT /seven DUNCAN RN BSN Signed: 07/28/2019 10:22 Receipt Acknowledged By: 07/28/2019 12:49 /BARBARA Avitia [facility]
--- OUTSIDE RECORDS SUMMARY | 2020-04-18 10:02 | XMS REPORT | Encounter Summary ---
Author Author [facility] SIMI palacio Organization Department of [facility] Address [address] [place] [phone] Phone Unavailable Care Team Providers Care Egg Smeller Name Role Phone REYES THOM PCP Unavailable [...] MCR ([facility]) Nov 09, 2017 [id number] [phone] SIMI COVARRUBIAS PATIENT [employer] [facility] MED REP (WNR) MEDICARE ADVANTAGE MCR ([facility]) Nov 09, 2017 [id number] [phone] SIMI COVARRUBIAS PATIENT [facility] [facility] ([facility]) MEDICARE ADVANTAGE MCR ([facility]) Nov 09, [id number] SIMI COVARRUBIAS PATIENT Selected Encounter This section includes the information on record at [place] for the Encounter. Date/Time Encounter Type Encounter Description Reason Provider Source Jul 20, 2019 09:05 AM Outpatient Encounter [facility]UNITY [facility] IHE Encounter Template Text not used by [place] Assessments - Encounter Diagnoses No Data Provided [...] Date/Time Appointment Type Appointment Facili ty Name Jul 28, 2019 10:00 AM [facility]ONE [facility] Aug 04, 2019 11:00 AM [facility]ORY - NONE [facility] [place] [facility] Aug 16, 2019 01:00 PM [facility] NONE [facility] [place] [facility] Aug 25, 2019 10:00 AM [facility] - NONE [facility] Sep 15, 2019 12:00 PM AMBULATORY - MEDICINE [facility] Sep 22, 2019 10:00 AM AM[facility]ULATORY - NONE [facility] Sep 23, 2019 11:00 AM AMBULATORY - NONE [facility] [place] [facility] Oct 17, 2019 03:00 PM AMBULATORY - NONE [facility] [place] [facility] Oct 20, 2019 10:00 AM [facility]ORY - NONE [facility] Nov 10, 2019 12:00 PM AMBULATORY - MEDICINE [facility] Nov 16, 2019 02:00 PM [facility]G[place] [facility] [place] [facility] Nov 16, 2019 03:00 PM [facility] NONE [facility] [place] [facility] Nov 17, 2019 10:00 AM [facility] Dec 01, 2019 11:30 AM AMBULATORY - MEDICINE [facility] Dec 14, 2019 03:00 PM AMBULATORY - NONE [facility] [place] [facility] Dec 15, 2019 01:00 PM [facility]ORY - NONE [facility] Jan 12, 2020 10:00 AM AMBULATORY - NONE [facility] Surgical Procedures: All associated to the encounter [...] Range Comment Jul 07, 2019 09:11 AM [facility] PTH INTACT Specimen Type: PLASMA No comment entered. PTH INTACT 45.8 pg/mL 8.7-77.7 Jul 07, 2019 09:11 AM [facility] CBC & DIFF Specimen Type: BLOOD [...] 0.8 % Jul 07, 2019 09:11 AM [facility] URINALYSIS Specimen Type: URINE No comment [...] Trace /HPF Jul 07, 2019 09:11 AM [facility] MAGNESIUM (mg/dL) Specimen Type: PLASMA No comment entered. MAGNESIUM (mg/dL) 1.8 mg/dl 1.6-2.6 Jul 07, 2019 09:11 AM [facility] URIC ACID (mg/dL) Specimen Type: PLASMA No comment entered. URIC ACID (mg/dL) 6.7 mg/dL 3.5-7.2 Jul 07, 2019 09:11 AM [facility] VITAMIN D (25-OH) Specimen Type: SERUM No comment entered. VITAMIN D (25-OH) 42.9 ng/mL 30.0-96.0 Jul 07, 2019 09:11 AM [facility] MICROALBUMIN (CO,EK) Specimen Type: URINE No comment entered. *MICROALBUMIN(CONC) 46.6 mg/dL - *MICROALBUMIN(SPOT) 158 mcg/mg cr HH 0-29 *CREATININE mg/dL 295.0 mg/dl Not Avail. Jul 07, 2019 09:11 AM [facility] HEPATIC FUNCTION PANE L Specimen Type: PLASMA No comment entered. PROTEIN,TOTAL 6.1 g/dL 6.0-8.6 ALBUMIN 3.9 g/dl 3.4-5.0 TOTAL BILIRUBIN 0.4 mg/dL 0.2-1.2 DIRECT BILIRUBIN 0.2 mg/dL 0-0.5 ASPARTATE TRANSAMINASE 29 U/L 5-34 ALANINE AMINOTRANSFERASE 24 U/L 8-40 ALKALINE PHOSPHATASE 91 U/L 40-150 Jul 07, 2019 09:11 AM [facility] RENAL FUNCTION PANEL Specimen Type: PLASMA No comment entered. *CREATININE 1.22 mg/dL 0.7-1.3 UREA NITROGEN mg/dL 13 mg/dL 9-25 GLUCOSE 152 mg/dL H 72-99 SODIUM 140 mEq/L 136-145 POTASSIUM 3.3 mEq/L L 3.5-5.0 CALCIUM (mg/dL) 9.7 mg/dL 8.4-10.4 PHOSPHORUS INORGANIC 3.5 mg/dL 2.3-4.7 ALBUMIN 3.9 g/dl 3.4-5.0 CHLORIDE 99 mEq/L 98-107 CO2 31 mEq/L 22-31 EGFR 58.2 Jul 07, 2019 09:11 AM [facility] TABOLIC PANEL Specimen [...] adverse reactions to drug (disorder) Renal impairment [facility] 15 METFORMIN Dec 01, 2017 Propensity to adverse reactions to drug (disorder) Renal impairment [facility] 15 Medications: VA dispensed (-15 months) and Non-VA Documented (Obtained Outside A) Section Date Range: 1) prescriptions processed by a VA pharmacy in the last 15 m [facility], and 2) all medications recorded [...] TIMES A DAY 400 Sep 12, 2020 [id number] Feb 29, 2020 [place] [facility] ACCU-CHEK ROSINA PLUS (GLUCOSE) TEST STRIP Discontinued USE 1 STRIP FOR TESTING FOUR TIMES A DAY 400 Sep 15, 2019 [id number] Jun 13, 2019 ELEUTERIO LARA [facility] ALCOHOL PREP PAD Discontinued USE 1 PAD ON SKIN FOUR TIMES A DAY 40 0 Apr 25, 2020 [id number] Nov 29, [address] [facility] [place] ALCOHOL PREP PAD Discontinued USE 1 PAD ON SKIN FOUR TIMES A DAY 40 0 Sep 15, 2019 [id number] Apr 18, 2019 ELEUTERIO [facility] ALLOPURINOL 100MG TAB Active TAKE ONE TABLET BY MOUTH ONCE A DAY FOR GOUT. TAKE WITH PLENTY OF WATER 90 Sep 23, 2020 [id number] Mar 05, 2020 SILVINA CHAMBERS [facility] [place] ALLOPURINOL 100MG TAB Discontinued TAKE ONE TABLET BY MOUTH ONCE A DAY FOR GOUT. TAKE WITH PLENTY OF WATER 90 Dec 30, 2019 [id number] Sep 17, 2019 THOM SHARPE [facility] [place] [facility] ALOGLIPTIN 12.5MG TAB Active TAKE ONE TABLET BY MOUTH O NCE A DAY FOR DIABETES 90 Sep 12, 2020 [id number] Mar 04, 2020 [facility]ERIO [facility] [place] [facility] ALOGLIPTIN 12.5MG TAB Discontinued TAKE ONE TABLET BY MOUTH ONCE A DAY FOR DIABETES 90 Dec 22, 2019 [id number] Jun 18, 2019 ELEUTERIO LIV[place]ON [facility] [place] [facility] AMLODIPINE BESYLATE 10MG TAB Discontinued TAKE ONE TA BLET BY MOUTH EVERY MORNING FOR HEART/BLOOD PRESSURE 90 Jun 10, 2019 [id number] Feb 25, 2019 MONIKA HAMMER [facility] [place] AMLODIPINE BESYLATE 10MG TAB TAKE ONE TA BLET BY MOUTH EVERY MORNING FOR HEART/BLOOD PRESSURE 90 Apr 12, 2020 [id number] Feb 10, 2020 SILVINA CHAMBERS [facility] ASPIRIN 81MG TAB,CHEWABLE Non-VA CHEW ONE TABLET BY MOUTH ONCE A DAY Non-VA Documented by: MEGAN HAWK nted at: [facility] ATORVASTATIN [place] 20MG TAB Active TAKE ONE TABLET BY MOUTH ONCE A DAY FOR CHOLESTEROL. REPORT ANY UNEXPLAINED MUSCLE PAIN OR WEAKNESS TO YOUR DOCTOR. 90 Jan 02, 2021 [id number] March 24, 2020 [facility] 15 ATORVASTATIN CA 40MG TAB Discontinued TAKE ONE-HALF T ABLET BY MOUTH AT BEDTIME FOR CHOLESTEROL. REPORT ANY UNEXPLAINED MUSCLE PAIN OR WEAKNESS TO YOUR DOCTOR. 45 Jul 15, 2020 [id number] Oct 14, 2019 THOM CHAMBERS [facility] [place] [facility] ATORVASTATIN CA 40MG TAB Discontinued TAKE ONE-HALF T ABLET BY MOUTH AT BEDTIME FOR CHOLESTEROL. REPORT ANY UNEXPLAINED MUSCLE PAIN OR WEAKNESS TO YOUR DOCTOR. 45 Oct 12, 2019 [id number] Jul 16, 2019 THOM CHAMBERS [facility] [place] [facility] CALCIUM CARBONATE 500MG TAB,CHEWABLE Non-VA CHEW ONE TABLET BY MOUTH PRN Non-VA Documented by: THOM CHAMBERS nted at: [facility] CHLORTHALIDONE 25MG TAB Active TAKE ONE TABLET BY MOUTH ONCE A DAY 90 Jul 01, 2020 [id number] March 19, 2020 MONIKA HAMMER [facility] [place] [facility] CHLORTHALIDONE 25MG TAB Discontinued TAKE ONE TABLET BY MOUTH ONCE A DAY 90 Jun 16, 2019 [id number] Apr 12, 2019 MONIKA HAMMER [facility] [place] [facility] CHOLECALCIFEROL 1000UNT TAB Non-VA TAKE ONE TABLET BY MOUTH EVERY OTHER DAY Non-VA Docume nted by: MEAGN HAWK Docume nted at: [facility] CYANOCOBALAMIN 1000MCG/ML INJ Active INJECT 100 0 MCG (1 ML) INTRAMUSCULARLY EVERY MONTH FOR B12 SUPPLEMENTATION. 3 Nov 03, 2020 [id number] Apr 23, 2020 [facility] [place] [facility] CYANOCOBALAMIN 1000MCG/ML INJ Discontinued INJECT 100 0 MCG (1 ML) INTRAMUSCULARLY EVERY MONTH FOR B12 SUPPLEMENTATION. 3 Nov 17 0 [id number] Aug 07, 2019 [facility] [place] [facility] DIPHENHYDRAMINE HCL 25MG CAP Non-VA TAKE 1 CAPSULE BY MOUTH PRN Non-VA Documented by: THOM CHAMBERS Docume nted at: [facility] DOCUSATE NA 100MG CAP No n-VA TAKE 2 CAPSULES BY MOUTH ONCE A DAY Non-VA Documented by: THOM CHAMBERS Docsammi nted at: [facility] FISH OIL 1000MG (500MG DHA/EPA) CAP,ORAL Non-VA TAKE 1 CAPSULE BY MOUTH ONCE A DAY Non-VA Documented by: MEGAN HAWK Docume nted at: [facility] GABAPENTIN 100MG CAP Active TAKE 1 CAPSULE BY M OUTH EVERY MORNING AND TAKE 1 CAPSULE BY MOUTH AT NOON AND TAKE 2 CAPSULES BY MOUTH AT BEDTIME 360 Jul 06, 2020 [id number] March 31, [address] [facility] [place] [facility] GLUCAGON 1MG/GABRIELLA INJ,EMERGENCY KIT INJEC T 1MG SUBCUTANEOUSLY NEEDED FOR SEVERE HYPOGLYCEMIA 1 Nov 30, 2019 [id number] Nov 03, 2019 [facility] [place] [facility] INSULIN,ASPART,HUMAN 100U/ML,NOVOLOG,FLEXPEN,3ML Active: On Hold INJECT 20 UNITS SUBCUTANEOUSLY BEFORE BREAKFAST AND INJECT 20 UNITS BEFORE LUNCH AND INJECT 26 UNITS BEFORE SUPPER AND INJECT 24 UNITS SNACK FOR BLOOD SUGAR CONTROL. ADMINISTER 10 MINUTES BEFORE FOOD DIRECTED. REFRIGERATE UN-OPENED PENS. DISCARD CARTRIDGE 28 DAYS AFTER OPENING. PLUS CORRECTION Mar 01, 2021 [id number] ELEUTERIO LIVINGSTON [facility] [place] [facility] INSULIN,ASPART,HUMAN 100U/ML,NOVOLOG,FLEXPEN,3ML Discontinue d INJECT 20 UNITS SUBCUTANEOUSLY BEFORE BREAKFAST AND INJECT 20 UNITS BEFORE LUNCH AND INJECT 24 UNITS BEFORE SUPPER AND INJECT 24 UNITS SNACK FOR BLOOD SUGAR CONTROL. ADMINISTER 10 MINUTES BEFORE FOOD DIRECTED. REFRIGERATE UN-OPENED PENS. DISCARD CARTRIDGE 28 DAYS AFTER OPENING. PLUS CORRECTION 30 Jan 26, 2021 [id number] Jan 28, 2020 [facility] [place] [facility] INSULIN,ASPART,HUMAN 100U/ML,NOVOLOG,FLEXPEN,3ML Discontinue d INJECT 20 UNITS SUBCUTANEOUSLY BEFORE MEALS FOR BLOOD SUGAR CONTROL. ADMINISTER 10 MINUTES BEFORE FOOD DIRECTED. REFRIGERATE UN-OPENED PENS. DISCARD CARTRIDGE 28 DAYS AFTER OPENING. PLUS CORRECTION FOR BLOOD SUGAR CONTROL. ADMINISTER 10 MINUTES BEFORE FOOD DIRECTED. REFRIGERATE UN-OPENED PENS. DISCARD CARTRIDGE 28 DAYS AFTER OPENING. PLUS CORRECTION 30 Nov 16, 2020 [id number] Nov 16 [facility] [place] INSULIN,ASPART,HUMAN 100U/ML,NOVOLOG,FLEXPEN,3ML Discontinue d INJECT 15 UNITS SUBCUTANEOUSLY EVERY MORNING BEFORE MEAL AND INJECT 15 UNITS WITH LUNCH AND INJECT 15 UNITS WITH SUPPER AND INJECT 20 UNITS WITH SNACK FOR BLOOD SUGAR CONTROL. ADMINISTER 10 MINUTES BEFORE FOOD DIRECTED. REFRIGERATE UN-OPENED PENS. DISCARD CARTRIDGE 28 DAYS AFTER OPENING. Dec 22, 2019 [id number] Oct 12, 2019 [facility] [place] [facility] INSULIN,GLARGINE,HUMAN 100 UNIT/ML INJ,SOLOSTAR,3ML Active INJECT 50 UNITS SUBCUTANEOUSLY EVERY MORNING FOR BLOOD SUGAR CONTROL. ADMINISTER AT SAME TIME EACH DAY DIRECTED. DISCARD ANY OPEN CARTRIDGE AFTER 28 DAYS. Sep 23, 2020 [id number] Jan 28, 2020 [facility] [place] [facility] INSULIN,GLARGINE,HUMAN 100 UNIT/ML INJ,SOLOSTAR,3ML Disconti nued INJECT 45 UNITS SUBCUTANEOUSLY EVERY MORNING FOR BLOOD SUGAR CONTROL. ADMINISTER AT SAME TIME EACH DAY DIRECTED. DISCARD ANY OPEN CARTRIDGE AFTER 28 DAYS. Oct 23, 2019 [id number] Aug 30, 2019 [facility] [place] [facility] LACTOBACILLUS ACIDOPHILUS TAB,CHEWABLE Non-VA CHEW ONE TABLET BY MOUTH ONCE A DAY Non-VA Documented by: MEGAN HAWKed at: [facility] LANCET,SOFTCLIX Active USE LANCET 5 TIME S A DAY FOR TESTING BLOOD GLUCOSE DIRECTED 500 Dec 28, 2020 [id number] March 19, 2020 ELEUTERIO LIVINGSTON [facility] [place] [facility] LANCET,SOFTCLIX Discontinued USE LANCET 5 TIME S A DAY FOR TESTING BLOOD GLUCOSE DIRECTED 500 Jan 11, 2020 [id number] Sep 29, 2019 YAYA GARZAISELEUTERIO [facility] [place] [facility] MAGNESIUM OXIDE 400MG TAB Non-VA TAKE ONE TABLET BY MOUTH ONCE A DAY Non-VA Documented by: MEGAN HAWK nted at: [facility] METOPROLOL SUCCINATE 200MG TAB,SA TAKE O NE-HALF TABLET BY MOUTH EVERY EVENING FOR HEART/BLOOD PRESSURE. SWALLOW WHOLE, DO NOT CRUSH OR CHEW (TABLETS MAY BE CUT IN HALF). 45 March 18, 2020 [id number] Dec 28, 2019 STANISLAV HAMMER [facility] NEEDLE 22G 1.5IN USE NEEDLE FOR EVERY MONTH 1 Nov 12, 2019 [id number] Feb 07, 2019 ADELAIDA CLIFFORD [facility] [place] [facility] NEEDLE,PEN 31G,5MM Discontinued USE NEEDLE SUBCUTANE OUSLY 5 TIMES A DAY - THIS IS A SINGLE USE NEEDLE AND SHOULD BE DISCARDED AFTER USE 500 Dec 21, 2019 [id number] Sep 28, 2019 ELEUTERIO LIVINGSTON [facility] [place] [facility] POTASSIUM CHLORIDE 10MEQ TAB,SA Active TAKE TWO TABLETS BY MOUTH TWO TIMES A DAY FOR POTASSIUM SUPPLEMENTATIONTAKE WITH FOOD 360 Dec 12, 2020 [id number] Mar 02, 2020 YANELY QUINTERO [facility], [facility] 15 POTASSIUM CHLORIDE 10MEQ TAB,SA Discontinued TAKE ONE TABLET BY MOUTH THREE TIMES A DAY WITH MEALS FOR POTASSIUM SUPPLEMENTATIONTAKE WITH FOOD 180 March 16, 2020 [id number] Nov 29, [address] [facility] [place] POTASSIUM CHLORIDE 10MEQ TAB,SA Discontinued TAKE ONE TABLET BY MOUTH THREE TIMES A DAY WITH MEALS FOR POTASSIUM SUPPLEMENTATIONTAKE WITH FOOD 180 May 26, 2019 [id number] Jan 24, 2019 YANELY QUINTERO [facility] [place] [facility] SYRINGE 2.5-3ML/NDL 25G 1IN Active USE 1 SYRINGE EVERY MONTH 3 Feb 21, 2021 [id number] March 20, 2020 [facility] SYRINGE 2.5-3ML/NDL 25G 1IN Discontinued USE 1 SYRINGE EVERY Thu 3 March 18, 2020 [id number] Dec 21, 2019 [facility]IC TESTOSTERONE CYPIONATE 200MG/ML INJ,1ML (IN OIL) Active INJECT 200 MG (1 ML) INTRAMUSCULARLY EVERY MONTH FOR HORMONE REPLACEMENT 1 May 18, 2020 [id number] April 06, 2020 ADELAIDA CLIFFORD [facility] [place] TESTOSTERONE CYPIONATE 200MG/ML INJ,1ML (IN OIL) Discontinue d INJECT 200 MG (1 ML) INTRAMUSCULARLY EVERY MONTH FOR HORMONE REPLACEMENT March 25, 2020 [id number] Oct 25, [address] [facility] [place] [facility] [place] TESTOSTERONE CYPIONATE 200MG/ML INJ,1ML (IN OIL) Discontinue d INJECT 200 MG (1 ML) INTRAMUSCULARLY EVERY MONTH FOR HORMONE REPLACEMENT Nov 06, 2019 [id number] Sep 25, [address] [facility] [place] TESTOSTERONE CYPIONATE 200MG/ML INJ,1ML (IN OIL) Discontinue d INJECT 200 MG (1 ML) INTRAMUSCULARLY EVERY MONTH FOR HORMONE REPLACEMENT 1 May 14, 2019 [id number] Apr 10, [address] [facility] [place] [facility] TRAMADOL HCL 50MG TAB Active TAKE 1 TO 2 TABLET S BY MOUTH EVERY 6 HOURS NEEDED FOR PAIN 180 Jul 21, 2020 [id number] March 30, 2020 [facility] TRAMADOL HCL 50MG TAB Discontinued TAKE 1 TO 2 TABLET S BY MOUTH EVERY 6 HOURS NEEDED FOR PAIN 180 Jun 06, 2020 [id number] Jan 11, 2020 [facility] TRAMADOL HCL 50MG TAB Discontinued TAKE 1 TO 2 TABLET S BY MOUTH EVERY 6 HOURS NEEDED FOR PAIN 180 Jun 06, 2020 [id number] Dec 06, 2019 [facility] TRAMADOL HCL 50MG TAB Discontinued TAKE 1 TO 2 TABLET S BY MOUTH EVERY 6 HOURS NEEDED FOR PAIN 180 Dec 14, 2019 [id number] Nov 15, 2019 ABRAMDANTE AYDE [facility] [place] TRAMADOL HCL 50MG TAB Discontinued TAKE 1 TO 2 TABLET S BY MOUTH EVERY 6 HOURS NEEDED FOR PAIN 180 Jul 06, 2019 [id number] May 26, 2019 NELLA GROVE [facility] [place] [facility] TRIAMCINOLONE ACETONIDE 0.5% CREAM,TOP Active A PPLY SPARINGLY TO AFFECTED AREA ONCE A DAY NEEDED FOR RASH 45 Jul 15, 2020 [id number] April 01 0 REYESTHOM [facility] [place] [facility] TRIAMCINOLONE ACETONIDE 0.5% CREAM,TOP Discontinued A PPLY SPARINGLY TO AFFECTED AREA ONCE A DAY NEEDED FOR RASH 45 Oct 12, 2019 [id number] Jul REYESTHOM [facility] [place] [facility] Problems (Conditions): All historical and [...] Source Basal cell carcinoma of scalp Active [id number] THOM CHAMBERS [facility] [place] [facility] Chronic back pain Active [id number] TERRIE CHAMBERS [facility] [place] [facility] Chronic kidney disease stage 3 Active [id number] THOM CHAMBERS [facility] [place] [facility] Constipation Active [id number] THOM CHAMBERS [facility] [place] [facility] Diabetes mellitus Active 10158807 THOM CHAMBERS [facility] [place] [facility] Diabetic neuropathy Active [id number] Neha CHAMBERS [facility] [place] [facility] Essential hypertension Active 12277241 THOM CHAMBERS [facility] [place] [facility] Hyperlipidemia Active 39354110 THOM CHAMBERS [facility] [place] [facility] Hypogonadism Active 77925182 THOM CHAMBERS [facility] [place] [facility] Sleep apnea Active 94613706 THOM CHAMBERS [facility] [place] [facility] Radiology Reports: +/- 30 days of the encounter No Data Provided for This Section Pathology Reports: +/- 30 days of the encounter No Data Provided for This Section Encounter Notes: All associated encounter notes This section contains the clinical notes associated to the Encounter. Date/Time Encounter Note(s) Provider Source Jul 20, 2019 09:05 AM NONVA NOTE: LOCAL TITLE: COMMUNITY CARE-SCHEDULING STANDARD TITLE: NONVA NOTE DATE OF NOTE: JUL 20, 2019@09:05 ENTRY DATE: JUL 20, 2019@09:05:41 AUTHOR: SANDEEP BARKSDALE COSIGNER: URGENCY: STATUS: COMPLETED Patient Centered Community Care (PC3) Program Department of [facility] Choice Approval for Medical Care VA-Form [id number] Certain protected health information (PHI) may be enclosed; specifically information related to Drug Abuse, Alcoholism or Alcohol Abuse, Sickle Cell Anemia, and Human Immunodeficiency Virus (HIV). This specific PHI may NOT be re-disclosed or used by the recipient person or office for any purpose other than that for which the disclosure was made. [Ref. 38 [facility] 7332(b)(2)(H)(ii)] The information is b eing disclosed by CA only for the treatment and care of the named patient in the health record. Accounting of disclosure must be maintained when required. Referral Urgency: Routine Indicate time frame for appointment: Clinically Indicated Date (WESTLEY): Jul Category of Care/Type of Specialty: PODIATRY Type of Specialist: SEDIMENTATIONIST Type of Service/Procedure: Evaluation and Treatment is in need of foot exam and new diabetic shoes. Chief Complaint: Diabetic neuropathy Number of Visits, Frequency, and Duration: Duration: 180 days Procedural Overview: 1. Initial outpatient evaluation and treatment for the referred condition indicated on the consult 2. Diagnostic imaging relevant to the referred condition on the consult 3. Diagnostic studies relevant to the referred condition on the consult 4. Labs and pathology relevant to the referred condition on the consult 5. Procedures relevant to the referred condition including but not limited to: Hyaluronic or steroid Injections, nail debridement, callus debridement, neuroma injections, plantar fasciitis injections, nail avulsions 6. Anesthesia consultation related to the procedure 7. Pre-operative medical and cardiac clearance as indicated, to include H+P/labs, EKG, CXR 8. Inpatient or observation admission for surgery/procedure, if indicated 9. Inpatient admission or observation status for complications related to the surgery/procedure VA notification within 72 hours to Facility Community Care Office who initiated the referral is required for complications related to the initial surgery/procedure 10. Follow-up visits for this episode of care relevant to the referred condition on the consult 11. Physical Therapy as indicated; not to exceed 15 visits; Notify VA to request additional visits with supporting medical documentation 12. Casting and supplies, as clinically indicated [place] or [facility] Preferred Provider Name and Contact Information: Eligibility Verification: As the authorized VA licensing representative, I hereby confirm that the is eligible for Community Care services. The 's basic eligibility was verified on Jul. Contact the Facility Community Care Office first to provide information to the VA or to reach a VA ordering provider. All contact from the contractor will be documented in the 's record by the facility [place] community Care and the VA provider will be notified for awareness. Report all Critical Findings related to this authorization to the issuing office below. All other questions regarding this authorization should be directed to: [phone] Facility: [facility] Office of Community Care (OCC) Contact:[phone] Local [place] Office of Community Care (OCC) Staffing Administrator or Equivalent: Name: Danisha Gamble Title: [place]-[facility] Community Care Tube Repairer Contact Number (Normal Business Hours):[phone] AOD/Emergency Contact After Hours Number:[phone] From Station Number: [id number] Facility Name: [facility] [address] Address: [address] [place] [address] T- City: [place] State: [place] Zip: [address] Information: Name: SIMI COVARRUBIAS : Nov SSN: [id number] Address: [address] [place] [address] [address] [place], [place] [address] 's Alternate Phone: [facility] Alternate Address: In accordance with 38 CFR 17.1133-8338, CA will pay for non-VA hospital care and medical services that are authorized by CA for Veterans who are determined by CA to meet the Veterans Choice Program eligibility criteria set forth by section 101 of the Act and 38 CFR 17.1510 and any other eligibility standards that may apply to particular services (such as health care for newborns of Veterans under 38 CFR 17.38(a)(xiv) and dental benefits under 17.160-17.169). /noa/ SANDEEP BARKSDALE [facility] Signed: 07/20/2019 09:[address] [facility]
--- OUTSIDE RECORDS SUMMARY | 2020-04-18 10:02 | XMS REPORT ---
Author Author Department [facility] SIMI palacio Organization Department of [facility] Address [address] [place] [id number] Phone Unavailable Care Team Providers Care Navigation Officer Name Role Phone REYES THOM PCP [...] [facility] (WNR) MEDICARE ADVANTAGE [facility] Nov 09, 2017 [id number] [phone] SIMI COVARRUBIAS PATIENT [facility] (WNR) MEDICARE [facility] (R) Nov 09, 2017 [id number] [phone] SIMI COVARRUBIAS PATIENT AETNA [facility] (WNR) MEDICARE ADVANTAGE [facility] (R) Nov 09, [id number] [id number] SIMI COVARRUBIAS PATIENT Selected Encounter This section includes the information on record at [place] for the Encounter. Date/Time Encounter Type Encounter Description Reason Provider Source Jul 20, 2019 08:00 AM Outpatient Encounter ADMIN PAT ACTIVTIES (MASNO NCT) [facility], [facility] 15 IHE Encounter Template Text not used by [place] Assessments - Encounter Diagnoses No Data Provided [...] appointme nts. The data comes from all [place] treatment facilities. Appointment Date/Time Appointment Type Appointment Facili ty Name Jul 28, 2019 10:00 AM AMB[facility]ATORY - NONE [facility] Aug 04, 2019 11:00 AM AMBULATORY - NONE [facility] Aug 16, 2019 01:00 PM AMBULATORY - NONE [facility] Aug 25, 2019 10:00 AM AMBULATORY - NONE [facility] Sep 15, 2019 12:00 PM AMBULATORY - MEDICINE [facility] Sep 22, 2019 10:00 AM AMBULATORY - NONE [facility] Sep 23, 2019 11:00 AM AMBULATORY - NONE [facility] Oct 17, 2019 03:00 PM AMBULATORY - NONE [facility] Oct 20, 2019 10:00 AM AMBULATORY - NONE [facility] Nov 10, 2019 12:00 PM AMBULATORY - MEDICINE [facility] Nov 16, 2019 02:00 PM AMBULATORY - SURGERY [facility] Nov 16, 2019 03:00 PM AMBULATORY - NONE [facility] Nov 17, 2019 10:00 AM AM[facility]ULATORY - NONE [facility] Dec 01, 2019 11:30 AM AMBULATORY - MEDICINE [facility] Dec 14, 2019 03:00 PM AMBULATORY - NONE [facility] Dec 15, 2019 01:00 PM AMBULATORY - NONE [facility] Jan 12, 2020 10:00 AM AMBULATORY - NONE [facility] Surgical Procedures: All [...] Range Comment Jul 07, 2019 09:11 AM [facility] PTH INTACT Specimen Type: PLASMA No comment entered. PTH INTACT 45.8 pg/mL 8.7-77.7 Jul 07, 2019 09:11 AM [facility] CBC & DIFF Specimen Type: BLOOD No [...] 0.8 % Jul 07, 2019 09:11 AM [facility] URINALYSIS Specimen Type: URINE No comment entered. [...] Trace /HPF Jul 07, 2019 09:11 AM [facility] MAGNESIUM (mg/dL) Specimen Type: PLASMA No comment entered. MAGNESIUM (mg/dL) 1.8 mg/dl 1.6-2.6 Jul 07, 2019 09:11 AM [facility] URIC ACID (mg/dL) Specimen Type: PLASMA No comment entered. URIC ACID (mg/dL) 6.7 mg/dL 3.5-7.2 Jul 07, 2019 09:11 AM [facility] VITAMIN D (25-OH) Specimen Type: SERUM No comment entered. VITAMIN D (25-OH) 42.9 ng/mL 30.0-96.0 Jul 07, 2019 09:11 AM [facility] MICROALBUMIN (CO,EK) Specimen Type: URINE No comment entered. *MICROALBUMIN(CONC) 46.6 mg/dL - *MICROALBUMIN(SPOT) 158 mcg/mg cr HH 0-29 *CREATININE mg/dL 295.0 mg/dl Not Avail. Jul 07, 2019 09:11 AM [facility] HEPATIC FUNCTION PANE L Specimen Type: PLASMA No comment entered. PROTEIN,TOTAL 6.1 g/dL 6.0-8.6 ALBUMIN 3.9 g/dl 3.4-5.0 TOTAL BILIRUBIN 0.4 mg/dL 0.2-1.2 DIRECT BILIRUBIN 0.2 mg/dL 0-0.5 ASPARTATE TRANSAMINASE 29 U/L 5-34 ALANINE AMINOTRANSFERASE 24 U/L 8-40 ALKALINE PHOSPHATASE 91 U/L 40-150 Jul 07, 2019 09:11 AM [facility] RENAL FUNCTION PANEL Specimen Type: PLASMA No comment entered. *CREATININE 1.22 mg/dL 0.7-1.3 UREA NITROGEN mg/dL 13 mg/dL 9-25 GLUCOSE 152 mg/dL H 72-99 SODIUM 140 mEq/L 136-145 POTASSIUM 3.3 mEq/L L 3.5-5.0 CALCIUM (mg/dL) 9.7 mg/dL 8.4-10.4 PHOSPHORUS INORGANIC 3.5 mg/dL 2.3-4.7 ALBUMIN 3.9 g/dl 3.4-5.0 CHLORIDE 99 mEq/L 98-107 CO2 31 mEq/L 22-31 EGFR 58.2 Jul 07, 2019 09:11 AM [facility] TABOLIC PANEL Specimen Type: PLASMA [...] Adverse Reactions (ADR s) on record with [place] for the patient. The data comes from a ll [place] treatment facilities. It does not list Allergies/ADRs that were removed or entered in error. Some allergies/ADRs may be reported in t Immunization section. Allergen Event Date Event Type Reaction(s) Severity Source LISIN[facility]RIL Dec 01, 2017 Propensity to adverse reactions to drug (disorder) Renal impairment [facility] 15 METFORMIN Dec 01, 2017 Propensity to adverse reactions to drug (disorder) [facility] Medications: VA dispensed (-15 months) and Non-VA Documented (Obtained Outside V A) Section Date Range: 1) prescriptions processed by a VA pharmacy in the last 15 m [facility], and 2) all medications recorded in the [place] medical record as "non-VA medic ations". Pharmacy terms refer to [place] pharmacy's work on prescriptions. VA patient s are advised to take their medications as instructed by their health care team. The data comes from all [place] treatment facilities. Glossary of Pharmacy Terms:Active = A prescription that can be filled at the local [place] pharmacy.Active: On Hold = An active prescription that will not be filled until pharmacy resolves the issue.Active: Susp = An active prescription that is not scheduled to be filled yet.Clinic Order = A medication received during a visit to a [place] clinic or emergency department (currently not available).Discontinued = A prescription stopped by a [place] provider. It is no longer available to be filled. = A prescription which is too old to fill. This does not refer to the expiration date of the medication in the container. Non-VA = A medication that came from someplace other than a [place] pharmacy. This may be a prescription from either the [place] or other providers that was filled outside the [place]. Or, it may be an over the [...] TIMES A DAY 400 Sep 12, 2020 [id number] Feb 29, 2020 [facility] ROSINA PLUS (GLUCOSE) TEST STRIP Discontinued USE 1 STRIP FOR TESTING FOUR TIMES A DAY 400 Sep 15, 2019 [id number] Jun 13, 2019 [facility] AL[facility]AD Discontinued USE 1 PAD ON SKIN FOUR TIMES A DAY 40 0 Apr 25, 2020 [id number] Nov 29, [address] [facility] ALCOHOL PREP PAD Discontinued USE 1 PAD ON SKIN FOUR TIMES A DAY 40 0 Sep 15, 2019 [id number] Apr 18, 2019 YARAELEUTERIO Laron [facility] ALLOPURINOL 100MG TAB Active TAKE ONE TABLET BY MOUTH ONCE A DAY FOR GOUT. TAKE WITH PLENTY OF WATER 90 Sep 23, 2020 [id number] Mar 05, 2020 SILVINA CHAMBERS [facility] ALLOPURINOL 100MG TAB Discontinued TAKE ONE TABLET BY MOUTH ONCE A DAY FOR GOUT. TAKE WITH PLENTY OF WATER 90 Dec 30, 2019 [id number] Sep 17, 2019 THOM SHARPE [facility] ALOGLIPTIN 12.5MG TAB Active TAKE ONE TABLET BY MOUTH O NCE A DAY FOR DIABETES 90 Sep 12, 2020 [id number] Mar 04, 2020 BALTRUSAELEUTERIO QUIGLEY Laron [facility] ALOGLIPTIN 12.5MG TAB Discontinued TAKE ONE TABLET BY MOUTH ONCE A DAY FOR DIABETES 90 Dec 22, 2019 [id number] Jun 18, 2019 YAYADANNELEUTERIO [facility] AMLODIPINE BESYLATE 10MG TAB Discontinued TAKE ONE TA BLET BY MOUTH EVERY MORNING FOR HEART/BLOOD PRESSURE 90 Jun 10, 2019 [id number] Feb 25, 2019 MONIKA HAMMER [facility] AMLODIPINE BESYLATE 10MG TAB TAKE ONE TA BLET BY MOUTH EVERY MORNING FOR HEART/BLOOD PRESSURE 90 Apr 12, 2020 [id number] Feb 10, 2020 SILVINA CHAMBERS [facility] ASPIRIN 81MG TAB,CHEWABLE Non-VA CHEW ONE TABLET BY MOUTH ONCE A DAY Non-VA Documented by: MEGAN HAWK nted at: [facility] ATORVASTATIN CA 20MG TAB Active TAKE ONE TABLET BY MOUTH ONCE A DAY FOR CHOLESTEROL. REPORT ANY UNEXPLAINED MUSCLE PAIN OR WEAKNESS TO YOUR DOCTOR. 90 Jan 02, 2021 [id number] March 24, 2020 [facility] ATORVASTATIN CA 40MG TAB Discontinued TAKE ONE-HALF T ABLET BY MOUTH AT BEDTIME FOR CHOLESTEROL. REPORT ANY UNEXPLAINED MUSCLE PAIN OR WEAKNESS TO YOUR DOCTOR. 45 Jul 15, 2020 [id number] Oct 14, 2019 [facility] ATORVASTATIN CA 40MG TAB Discontinued TAKE ONE-HALF T ABLET BY MOUTH AT BEDTIME FOR CHOLESTEROL. REPORT ANY UNEXPLAINED MUSCLE PAIN OR WEAKNESS TO YOUR DOCTOR. 45 Oct 12, 2019 [id number] Jul 16, 2019 THOM CHAMBERS [facility] CALCIUM CARBONATE 500MG TAB,CHEWABLE Non-VA CHEW ONE TABLET BY MOUTH PRN Non-VA Documented by: THOM CHAMBERS nted at: [facility] CHLORTHALIDONE 25MG TAB Active TAKE ONE TABLET BY MOUTH ONCE A DAY 90 Jul 01, 2020 [id number] March 19, 2020 MONIKA HAMMER [facility] CHLORTHALIDONE 25MG TAB Discontinued TAKE ONE TABLET BY MOUTH ONCE A DAY 90 Jun 16, 2019 [id number] Apr 12, 2019 MONIKA HAMMER [facility] CHOLECALCIFEROL 1000UNT TAB Non-VA TAKE ONE TABLET BY MOUTH EVERY OTHER DAY Non-VA Docume nted by: MEGAN HAWK Docume nted at: [facility] CYANOCOBALAMIN 1000MCG/ML INJ Active INJECT 100 0 MCG (1 ML) INTRAMUSCULARLY EVERY MONTH FOR B12 SUPPLEMENTATION. 3 Nov 03, 2020 [id number] Apr 23, 2020 [facility] CYANOCOBALAMIN 1000MCG/ML INJ Discontinued INJECT 100 0 MCG (1 ML) INTRAMUSCULARLY EVERY MONTH FOR B12 SUPPLEMENTATION. 3 Nov 17 0 [id number] Aug 07, 2019 [facility] DIPHENHYDRAMINE HCL 25MG CAP Non-VA TAKE 1 CAPSULE BY MOUTH PRN Non-VA Documented by: THOM CHAMBERS Docsammi nted at: [facility] DOCUSATE NA 100MG CAP No n-VA TAKE 2 CAPSULES BY MOUTH ONCE A DAY Non-VA Documented by: THOM CHAMBERS Docume nted at: [facility] FISH OIL 1000MG (500MG DHA/EPA) CAP,ORAL Non-VA TAKE 1 CAPSULE BY MOUTH ONCE A DAY Non-VA Documented by: MEGAN HAWK Docume nted at: [facility] GABAPENTIN 100MG CAP Active TAKE 1 CAPSULE BY M OUTH EVERY MORNING AND TAKE 1 CAPSULE BY MOUTH AT NOON AND TAKE 2 CAPSULES BY MOUTH AT BEDTIME 360 Jul 06, 2020 [id number] March 31, [address] [facility] GLUCAGON 1MG/GABRIELLA INJ,EMERGENCY KIT INJEC T 1MG SUBCUTANEOUSLY NEEDED FOR SEVERE HYPOGLYCEMIA 1 Nov 30, 2019 [id number] Nov 03, 2019 THOM CHAMBERS [facility] INSULIN,ASPART,HUMAN 100U/ML,NOVOLOG,FLEXPEN,3ML Active: On Hold INJECT 20 UNITS SUBCUTANEOUSLY BEFORE BREAKFAST AND INJECT 20 UNITS BEFORE LUNCH AND INJECT 26 UNITS BEFORE SUPPER AND INJECT 24 UNITS SNACK FOR BLOOD SUGAR CONTROL. ADMINISTER 10 MINUTES BEFORE FOOD DIRECTED. REFRIGERATE UN-OPENED PENS. DISCARD CARTRIDGE 28 DAYS AFTER OPENING. PLUS CORRECTION Mar 01, 2021 [id number] ELEUTERIO LIVINGSTON [facility] INSULIN,ASPART,HUMAN 100U/ML,NOVOLOG,FLEXPEN,3ML Discontinue d INJECT 20 UNITS SUBCUTANEOUSLY BEFORE BREAKFAST AND INJECT 20 UNITS BEFORE LUNCH AND INJECT 24 UNITS BEFORE SUPPER AND INJECT 24 UNITS SNACK FOR BLOOD SUGAR CONTROL. ADMINISTER 10 MINUTES BEFORE FOOD DIRECTED. REFRIGERATE UN-OPENED PENS. DISCARD CARTRIDGE 28 DAYS AFTER OPENING. PLUS CORRECTION 30 Jan 26, 2021 [id number] Jan 28, 2020 [facility] INSULIN,ASPART,HUMAN 100U/ML,NOVOLOG,FLEXPEN,3ML Discontinue d INJECT 20 UNITS SUBCUTANEOUSLY BEFORE MEALS FOR BLOOD SUGAR CONTROL. ADMINISTER 10 MINUTES BEFORE FOOD DIRECTED. REFRIGERATE UN-OPENED PENS. DISCARD CARTRIDGE 28 DAYS AFTER OPENING. PLUS CORRECTION FOR BLOOD SUGAR CONTROL. ADMINISTER 10 MINUTES BEFORE FOOD DIRECTED. REFRIGERATE UN-OPENED PENS. DISCARD CARTRIDGE 28 DAYS AFTER OPENING. PLUS CORRECTION 30 Nov 16, 2020 [id number] Nov 16 [facility] INSULIN,ASPART,HUMAN 100U/ML,NOVOLOG,FLEXPEN,3ML Discontinue d INJECT 15 UNITS SUBCUTANEOUSLY EVERY MORNING BEFORE MEAL AND INJECT 15 UNITS WITH LUNCH AND INJECT 15 UNITS WITH SUPPER AND INJECT 20 UNITS WITH SNACK FOR BLOOD SUGAR CONTROL. ADMINISTER 10 MINUTES BEFORE FOOD DIRECTED. REFRIGERATE UN-OPENED PENS. DISCARD CARTRIDGE 28 DAYS AFTER OPENING. Dec 22, 2019 [id number] Oct 12, 2019 [facility] INSULIN,GLARGINE,HUMAN 100 UNIT/ML INJ,SOLOSTAR,3ML Active INJECT 50 UNITS SUBCUTANEOUSLY EVERY MORNING FOR BLOOD SUGAR CONTROL. ADMINISTER AT SAME TIME EACH DAY DIRECTED. DISCARD ANY OPEN CARTRIDGE AFTER 28 DAYS. Sep 23, 2020 [id number] Jan 28, 2020 [facility] INSULIN,GLARGINE,HUMAN 100 UNIT/ML INJ,SOLOSTAR,3ML Disconti nued INJECT 45 UNITS SUBCUTANEOUSLY EVERY MORNING FOR BLOOD SUGAR CONTROL. ADMINISTER AT SAME TIME EACH DAY DIRECTED. DISCARD ANY OPEN CARTRIDGE AFTER 28 DAYS. Oct 23, 2019 [id number] Aug 30, 2019 [facility] LACTOBACILLUS ACIDOPHILUS TAB,CHEWABLE Non-VA CHEW ONE TABLET BY MOUTH ONCE A DAY Non-VA Documented by: MEGAN HAWKume nted at: [facility] LANCET,SOFTCLIX Active USE LANCET 5 TIME S A DAY FOR TESTING BLOOD GLUCOSE DIRECTED 500 Dec 28, 2020 [id number] March 19, 2020 ELEUTERIO LIVINGSTON [facility] LANCET,SOFTCLIX Discontinued USE LANCET 5 TIME S A DAY FOR TESTING BLOOD GLUCOSE DIRECTED 500 Jan 11, 2020 [id number] Sep 29, 2019 YAYA ITANANDELEUTERIO Laron [facility] MAGNESIUM OXIDE 400MG TAB Non-VA TAKE ONE TABLET BY MOUTH ONCE A DAY Non-VA Documented by: MEGAN HAWKume nted at: [facility] METOPROLOL SUCCINATE 200MG TAB,SA TAKE O NE-HALF TABLET BY MOUTH EVERY EVENING FOR HEART/BLOOD PRESSURE. SWALLOW WHOLE, DO NOT CRUSH OR CHEW (TABLETS MAY BE CUT IN HALF). 45 March 18, 2020 [id number] Dec 28, 2019 STANISLAV HAMMER [facility] NEEDLE 22G 1.5IN USE NEEDLE FOR EVERY MONTH 1 Nov 12, 2019 [id number] Feb 07, 2019 ADELAIDA CLIFFORD [facility] NEEDLE,PEN 31G,5MM Discontinued USE NEEDLE SUBCUTANE OUSLY 5 TIMES A DAY - THIS IS A SINGLE USE NEEDLE AND SHOULD BE DISCARDED AFTER USE 500 Dec 21, 2019 [id number] Sep 28, 2019 YAYADANNELEUTREIO [facility] POTASSIUM CHLORIDE 10MEQ TAB,SA Active TAKE TWO TABLETS BY MOUTH TWO TIMES A DAY FOR POTASSIUM SUPPLEMENTATIONTAKE WITH FOOD 360 Dec 12, 2020 [id number] Mar 02, 2020 YANELY QUINTERO [facility] POTASSIUM CHLORIDE 10MEQ TAB,SA Discontinued TAKE ONE TABLET BY MOUTH THREE TIMES A DAY WITH MEALS FOR POTASSIUM SUPPLEMENTATIONTAKE WITH FOOD 180 March 16, 2020 [id number] Nov 29, [address] [facility] [place] [facility] POTASSIUM CHLORIDE 10MEQ TAB,SA Discontinued TAKE ONE TABLET BY MOUTH THREE TIMES A DAY WITH MEALS FOR POTASSIUM SUPPLEMENTATIONTAKE WITH FOOD 180 May 26, 2019 [id number] Jan 24, 2019 YANELY [facility]INTER[facility] SYRINGE 2.5-3ML/NDL 25G 1IN Active USE 1 SYRINGE EVERY MONTH 3 Feb 21, 2021 [id number] March 20, 2020 [facility] SYRINGE 2.5-3ML/NDL 25G 1IN Discontinued USE 1 SYRINGE EVERY Thu 3 March 18, 2020 [id number] Dec 21, 2019 [facility] TESTOSTERONE CYPIONATE 200MG/ML INJ,1ML (IN OIL) Active INJECT 200 MG (1 ML) INTRAMUSCULARLY EVERY MONTH FOR HORMONE REPLACEMENT 1 May 18, 2020 [id number] April 06, 2020 ADELAIDA CLIFFORD [facility] TESTOSTERONE CYPIONATE 200MG/ML INJ,1ML (IN OIL) Discontinue d INJECT 200 MG (1 ML) INTRAMUSCULARLY EVERY MONTH FOR HORMONE REPLACEMENT 1 March 25, 2020 [id number] Oct 25, 2019 ADELAIDA CLIFFORD [facility] TESTOSTERONE CYPIONATE 200MG/ML INJ,1ML (IN OIL) Discontinue d INJECT 200 MG (1 ML) INTRAMUSCULARLY EVERY MONTH FOR HORMONE REPLACEMENT 1 Nov 06, 2019 [id number] Sep 25, 2019 ADELAIDA CLIFFORD [facility] TESTOSTERONE CYPIONATE 200MG/ML INJ,1ML (IN OIL) Discontinue d INJECT 200 MG (1 ML) INTRAMUSCULARLY EVERY MONTH FOR HORMONE REPLACEMENT 1 May 14, 2019 [id number] Apr 10, 2019 ADELAIDA CLIFFORD [facility] TRAMADOL HCL 50MG TAB Active TAKE 1 TO 2 TABLET S BY MOUTH EVERY 6 HOURS NEEDED FOR PAIN 180 Jul 21, 2020 [id number] March 30, 2020 [facility] TRAMADOL HCL 50MG TAB Discontinued TAKE 1 TO 2 TABLET S BY MOUTH EVERY 6 HOURS NEEDED FOR PAIN 180 Jun 06, 2020 [id number] Jan 11, 2020 [facility] TRAMADOL HCL 50MG TAB Discontinued TAKE 1 TO 2 TABLET S BY MOUTH EVERY 6 HOURS NEEDED FOR PAIN 180 Jun 06, 2020 [id number] Dec 06, 2019 [facility] TRAMADOL HCL 50MG TAB Discontinued TAKE 1 TO 2 TABLET S BY MOUTH EVERY 6 HOURS NEEDED FOR PAIN 180 Dec 14, 2019 [id number] Nov 15, 2019 DANTE VALVERDE AYDE [facility] [place] TRAMADOL HCL 50MG TAB Discontinued TAKE 1 TO 2 TABLET S BY MOUTH EVERY 6 HOURS NEEDED FOR PAIN 180 Jul 06, 2019 [id number] May 26, 2019 NELLA GROVE [facility] [place] [facility] TRIAMCINOLONE ACETONIDE 0.5% CREAM,TOP Active A PPLY SPARINGLY TO AFFECTED AREA ONCE A DAY NEEDED FOR RASH 45 Jul 15, 2020 [id number] April 01 0 THOM CHAMBERS [facility] TRIAMCINOLONE ACETONIDE 0.5% CREAM,TOP Discontinued A PPLY SPARINGLY TO AFFECTED AREA ONCE A DAY NEEDED FOR RASH 45 Oct 12, 2019 [id number] Jul REYESTHOM [facility] [facility] Problems (Conditions): All historical and current Section Date Range: From patient's date of to the date document was create d. This section includes a list of Problems (Conditions) know n to [place] for the patient. It includes both active and inacti ve problems (conditions). The data comes from all [place] treatment facilities. Problem Status Problem Code Date of Onset Date of Resolution Comm ent(s) Provider Source Basal cell carcinoma of scalp Active [id number] THOM CHAMBERS [facility] Chronic back pain Active [id number] TERRIE CHAMBERS [facility] Chronic kidney disease stage 3 Active [id number] REYES,DANA [facility] Constipation Active [id number] THOM CHAMBERS [facility] Diabetes mellitus Active 26704314 THOM CHAMBERS [facility] Diabetic neuropathy Active [id number] Neha CHAMBERS [facility] Essential hypertension Active 24178925 THOM CHAMBERS [facility] Hyperlipidemia Active 85352538 THOM CHAMBERS [facility] [place] [facility] Hypogonadism Active 58861534 THOM CHAMBERS [facility] [place] [facility] Sleep apnea Active 19938521 THOM CHAMBERS [facility] [facility] Radiology Reports: +/- 30 days of the encounter No Data Provided for This Section Pathology Reports: +/- 30 days of the encounter No Data Provided for This Section Encounter Notes: All associated encounter notes This section contains the clinical notes associated to the Encounter. Date/Time Encounter Note(s) Provider Source Jul 20, 2019 08:00 AM SCANNED NOTE: LOCAL TITLE: SOSA-SCANNED NON-VA RECORD(S) STANDARD TITLE: SCANNED NOTE DATE OF NOTE: JUL 20, 2019@08:00 ENTRY DATE: AUG 08, 2019@09:29:53 AUTHOR: CANDY GOMES EXP COSIGNER: URGENCY: STATUS: COMPLETED See [facility]/DERMATOLOGY/07/20/19 /noa/ CANDY GOMES Signed: 08/08/2019 09:30 CANDY GOMES [facility] 15
--- OUTSIDE RECORDS SUMMARY | 2020-04-18 10:03 | XMS REPORT | Encounter Summary ---
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 Role Phone THOM CHAMBERS PCP [...] to Policy Woodard [employer] MED REP ([facility]) MEDICARE ADVANTAGE MCR ([facility]) Nov 09, 2017 [id number] [phone] SIMI COVARRUBIAS PATIENT [employer] MED REP (WNR) MEDICARE ADVANTAGE MCR ([facility]) Nov 09, 2017 [id number] [phone] SIMI COVARRUBIAS PATIENT AETNA MCR ([facility]) MEDICARE ADVANTAGE MCR ([facility]) Nov 09, [id number] SIMI COVARRUBIAS PATIENT Selected Encounter This section includes the information on record at [place] for the Encounter. Date/Time Encounter Type Encounter Description Reason Provider Source Jul 19, 2019 04:23 PM Outpatient Encounter TELEPHONE PRIMARY CAR E ICD-10-CM Z71.89 Other specified counseling with Provider Comments: Counseling,Oth Specified THOM CHAMBERS [facility] IHE Encounter Template Text not used by VA Assessments - Encounter Diagnoses This section includes the primary and secondary diag noses documented for the Encounter. Date/Time Primary/Secondary Diagnosis Diagnosis Name Provider Source Jul 19, 2019 04:23 PM PRIMARY Other specified counseling ALLA NARAYANAN [facility] Plan of Treatment: Future Appointments (+ 6 months) and Future Tests (+/- 45 day s) The Plan of Treatment section includes future care activities for the patient fr om all [place] treatment facilities. This section includes future appointments and fu ture orders which are active, pending or scheduled. Future Appointments This section includes appointments that were scheduled t o occur 6 months from the date of the Encounter, up to a maximum of 20 appointme nts. The data comes from all [place] treatment facilities. Appointment Date/Time Appointment Type Appointment Facili ty Name Jul 28, 2019 10:00 AM AMBULATORY - NONE [facility] Aug 04, 2019 11:00 AM [facility]ORY - NONE [facility] Aug 16, 2019 01:00 PM [facility]ATORY - NONE [facility] Aug 25, 2019 10:00 AM AMBULATORY - NONE [facility] Sep 15, 2019 12:00 PM [facility] - [facility] Sep 22, 2019 10:00 AM AMBULATORY - NONE [facility] Sep 23, 2019 11:00 AM [facility] - NONE [facility] Oct 17, 2019 03:00 PM AM[facility]ULATORY - NONE [facility] Oct 20, 2019 10:00 AM AMBULATORY - NONE [facility] Nov 10, 2019 12:00 PM AMBULATORY - MEDICINE [facility] Nov 16, 2019 02:00 PM [facility] - [facility]GERY [facility] Nov 16, 2019 03:00 PM [facility] NONE [facility] Nov 17, 2019 10:00 AM AMBULATORY - NONE [facility] Dec 01, 2019 11:30 AM AMBULATORY - MEDICINE [facility] Dec 14, 2019 03:00 PM [facility] NONE [facility] Dec 15, 2019 01:00 PM AMBULATORY - NONE [facility] Jan 12, 2020 10:00 AM AMBULATORY - NONE [facility] Surgical Procedures: All associated [...] Range Comment Jul 07, 2019 09:11 AM [facility] PTH INTACT Specimen Type: PLASMA No comment entered. PTH INTACT 45.8 pg/mL 8.7-77.7 Jul 07, 2019 09:11 AM [facility] CBC & DIFF Specimen Type: [...] 0.8 % Jul 07, 2019 09:11 AM [facility] URINALYSIS Specimen Type: URINE No [...] Trace /HPF Jul 07, 2019 09:11 AM [facility] MAGNESIUM (mg/dL) Specimen Type: PLASMA No comment entered. MAGNESIUM (mg/dL) 1.8 mg/dl 1.6-2.6 Jul 07, 2019 09:11 AM [facility] URIC ACID (mg/dL) Specimen Type: PLASMA No comment entered. URIC ACID (mg/dL) 6.7 mg/dL 3.5-7.2 Jul 07, 2019 09:11 AM [facility] VITAMIN D (25-OH) Specimen Type: SERUM No comment entered. VITAMIN D (25-OH) 42.9 ng/mL 30.0-96.0 Jul 07, 2019 09:11 AM [facility] MICROALBUMIN (CO,EK) Specimen Type: URINE No comment entered. *MICROALBUMIN(CONC) 46.6 mg/dL - *MICROALBUMIN(SPOT) 158 mcg/mg cr 0-29 *CREATININE mg/dL 295.0 mg/dl Not Avail. Jul 07, 2019 09:11 AM [facility] HEPATIC FUNCTION PANE L Specimen Type: PLASMA No comment entered. PROTEIN,TOTAL 6.1 g/dL 6.0-8.6 ALBUMIN 3.9 g/dl 3.4-5.0 TOTAL BILIRUBIN 0.4 mg/dL 0.2-1.2 DIRECT BILIRUBIN 0.2 mg/dL 0-0.5 ASPARTATE TRANSAMINASE 29 U/L 5-34 ALANINE AMINOTRANSFERASE 24 U/L 8-40 ALKALINE PHOSPHATASE 91 U/L 40-150 Jul 07, 2019 09:11 AM [facility] RENAL FUNCTION PANEL Specimen Type: [...] 58.2 Jul 07, 2019 09:11 AM [facility] COMPREHENSIVE MO TABOLIC PANEL Specimen Type: PLASMA No comment [...] and tobacco- related health factors from the [place] facility where the Encounter took place. Current Smoking Status This section includes the most current smoking, or tobacco -related health factor, from the [place] facility where the Encounter took place. Date/Time Current Smoking Status Comment Facility Nov 03, 2018 07:59 AM [place]-TOBACCO QUIT 15 YRS OR MORE [facility] Tobacco Use History This section includes a history of the smoking, or tobacco -related health factors, that were collected on or before the date of the Encoun ter. The data comes from the [place] facility where the Encounter took place. Date/Time Smoking Status/Tobacco Use Comment [facility] Nov 03, 2018 07:59 AM [place]-TOBACCO QUIT 15 YRS OR MORE [facility] Oct 23, 2017 07:35 AM TOBACCO LIFETIME NON-USER [facility] Advance Directives: All historical and current No Data Provided for This Section Allergies and Adverse Reactions (ADRs): All historical and current Section Date Range: From patient's date of to the date document was create d. This section includes Allergies and Adverse Reactions (ADR s) on record with VA for the patient. The data comes from a [facility] treatment facilities. It does not list Allergies/ADRs that were removed or entered in error. Some allergies/ADRs may be reported in t he Immunization section. Allergen Event Date Event Type Reaction(s) Severity Source LISINOPRIL Dec 01, 2017 Propensity to adverse reactions to drug (disorder) Renal impairment [facility] MET[facility]MIN Dec 01, 2017 Propensity to adverse reactions to drug (disorder) [facility] impairment [facility] Medications: VA dispensed (-15 months) and Non-VA Documented (Obtained Outside V A) Section Date Range: 1) prescriptions processed by a VA pharmacy in the last 15 m [facility], and 2) all medications recorded in the [place] medical record as "non-VA medic ations". Pharmacy terms refer to VA pharmacy's work on prescriptions. VA patient s are advised to take their medications as instructed by their health care team. The data comes from all [place] treatment facilities. Glossary of Pharmacy Terms:Active = A prescription that can be filled at the local [place] pharmacy.Active: On Hold = An active prescription that will not be filled until pharmacy resolves the issue.Active: Susp = An active prescription that is not scheduled to be filled yet.Clinic Order = A medication received during a visit to a [place] clinic or emergency department (currently not available).Discontinued [...] may be a prescription from either the [place] or other providers that was filled outside the [place]. Or, it may be an over the [...] TIMES A DAY 400 Sep 12, 2020 [id number] Feb 29, 2020 ELEUTERIO LIVINGSTON [facility] ACCU-CHEK ROSINA PLUS (GLUCOSE) TEST STRIP Discontinued USE 1 STRIP FOR TESTING FOUR TIMES A DAY 400 Sep 15, 2019 [id number] Jun 13, 2019 BALTRUSAIT ISELEUTERIO [facility] ALCOHOL PREP PAD Discontinued USE 1 PAD ON SKIN FOUR TIMES A DAY 40 0 Apr 25, 2020 [id number] Nov 29, 2019 BALELEUTERIO KONG [facility] [place] [facility] ALCOHOL PREP PAD Discontinued USE 1 PAD ON SKIN FOUR TIMES A DAY 40 0 Sep 15, 2019 [id number] Apr 18, 2019 BALELEUTERIO KONG [facility] ALLOPURINOL 100MG TAB Active TAKE ONE TABLET BY MOUTH ONCE A DAY FOR GOUT. TAKE WITH PLENTY OF WATER 90 Sep 23, 2020 [id number] Mar 05, 2020 SILVINA CHAMBERS [facility] ALLOPURINOL 100MG TAB Discontinued TAKE ONE TABLET BY MOUTH ONCE A DAY FOR GOUT. TAKE WITH PLENTY OF WATER 90 Dec 30, 2019 [id number] Sep 17, 2019 THOM SHARPE [facility] [place] [facility] ALOGLIPTIN 12.5MG TAB Active TAKE ONE TABLET BY MOUTH O NCE A DAY FOR DIABETES 90 Sep 12, 2020 [id number] Mar 04, 2020 ELEUTERIO LIVINGSTON [facility] [place] [facility] ALOGLIPTIN 12.5MG TAB Discontinued TAKE ONE TABLET BY MOUTH ONCE A DAY FOR DIABETES 90 Dec 22, 2019 [id number] Jun 18, 2019 ELEUTERIO LIVINGSTON [facility] [place] [facility] AMLODIPINE BESYLATE 10MG TAB Discontinued TAKE ONE TA BLET BY MOUTH EVERY MORNING FOR HEART/BLOOD PRESSURE 90 Jun 10, 2019 [id number] Feb 25, 2019 MONIKA HAMMER [facility] [place] [facility] AMLODIPINE BESYLATE 10MG TAB TAKE ONE TA BLET BY MOUTH EVERY MORNING FOR HEART/BLOOD PRESSURE 90 Apr 12, 2020 [id number] Feb 10, 2020 SILVINA CHAMBERS [facility] ASPIRIN 81MG TAB,CHEWABLE Non-VA CHEW ONE TABLET BY MOUTH ONCE A DAY Non-VA Documented by: MEGAN HAWK nted at: [facility] ATORVASTATIN CA 20MG TAB Active TAKE ONE TABLET BY MOUTH ONCE A DAY FOR CHOLESTEROL. REPORT ANY UNEXPLAINED MUSCLE PAIN OR WEAKNESS TO YOUR DOCTOR. 90 Jan 02, 2021 [id number] March 24, 2020 NELLA GROVE [facility] [place] 15 ATORVASTATIN CA 40MG TAB Discontinued TAKE ONE-HALF T ABLET BY MOUTH AT BEDTIME FOR CHOLESTEROL. REPORT ANY UNEXPLAINED MUSCLE PAIN OR WEAKNESS TO YOUR DOCTOR. 45 Jul 15, 2020 [id number] Oct 14, 2019 REYESTHOM [facility] [place] [facility] ATORVASTATIN CA 40MG TAB Discontinued TAKE ONE-HALF T ABLET BY MOUTH AT BEDTIME FOR CHOLESTEROL. REPORT ANY UNEXPLAINED MUSCLE PAIN OR WEAKNESS TO YOUR DOCTOR. 45 Oct 12, 2019 [id number] Jul 16, 2019 REYESTHOM [facility] [place] [facility] CALCIUM CARBONATE 500MG TAB,CHEWABLE Non-VA CHEW ONE TABLET BY MOUTH PRN Non-VA Documented by: THOM CHAMBERS nted at: [facility] CHLORTHALIDONE 25MG TAB Active TAKE ONE TABLET BY MOUTH ONCE A DAY 90 Jul 01, 2020 [id number] March 19, 2020 MONIKA HAMMER [facility] [place] [facility] CHLORTHALIDONE 25MG TAB Discontinued TAKE ONE TABLET BY MOUTH ONCE A DAY 90 Jun 16, 2019 [id number] Apr 12, 2019 MONIKA HAMMER [facility] [place] [facility] CHOLECALCIFEROL 1000UNT TAB Non-VA TAKE ONE TABLET BY MOUTH EVERY OTHER DAY Non-VA Docume nted by: MEGAN HAWK Docume nted at: [facility] CYANOCOBALAMIN 1000MCG/ML INJ Active INJECT 100 0 MCG (1 ML) INTRAMUSCULARLY EVERY MONTH FOR B12 SUPPLEMENTATION. 3 Nov 03, 2020 [id number] Apr 23, 2020 REYESTERRIEFORMERLY [facility] [place] [facility] CYANOCOBALAMIN 1000MCG/ML INJ Discontinued INJECT 100 0 MCG (1 ML) INTRAMUSCULARLY EVERY MONTH FOR B12 SUPPLEMENTATION. 3 Nov 17 0 [id number] Aug 07, 2019 THOM CHAMBERS [facility] [facility] DIPHENHYDRAMINE HCL 25MG CAP Non-VA TAKE 1 CAPSULE BY MOUTH PRN Non-VA Documented by: THOM CHAMBERS nted at: [facility] DOCUSATE NA 100MG CAP No n-VA TAKE 2 CAPSULES BY MOUTH ONCE A DAY Non-VA Documented by: THOM CHAMBERS Docume nted at: [facility] FISH OIL 1000MG (500MG DHA/EPA) CAP,ORAL Non-VA TAKE 1 CAPSULE BY MOUTH ONCE A DAY Non-VA Documented by: MOPMEGAN PACE nted at: [facility] GABAPENTIN 100MG CAP Active TAKE 1 CAPSULE BY M OUTH EVERY MORNING AND TAKE 1 CAPSULE BY MOUTH AT NOON AND TAKE 2 CAPSULES BY MOUTH AT BEDTIME 360 Jul 06, 2020 [id number] March 31, 2020 ELEUTERIO LIVINGSTON [facility] [place] [facility] GLUCAGON 1MG/GABRIELLA INJ,EMERGENCY KIT INJEC T 1MG SUBCUTANEOUSLY NEEDED FOR SEVERE HYPOGLYCEMIA 1 Nov 30, 2019 [id number] Nov 03, 2019 REYESTHOM GREGORY [facility] [place] [facility] INSULIN,ASPART,HUMAN 100U/ML,NOVOLOG,FLEXPEN,3ML Active: On Hold INJECT 20 UNITS SUBCUTANEOUSLY BEFORE BREAKFAST AND INJECT 20 UNITS BEFORE LUNCH AND INJECT 26 UNITS BEFORE SUPPER AND INJECT 24 UNITS SNACK FOR BLOOD SUGAR CONTROL. ADMINISTER 10 MINUTES BEFORE FOOD DIRECTED. REFRIGERATE UN-OPENED PENS. DISCARD CARTRIDGE 28 DAYS AFTER OPENING. PLUS CORRECTION Mar 01, 2021 [id number] ELEUTERIO LIVINGSTON [facility] INSULIN,ASPART,HUMAN 100U/ML,NOVOLOG,FLEXPEN,3ML Discontinue d INJECT 20 UNITS SUBCUTANEOUSLY BEFORE BREAKFAST AND INJECT 20 UNITS BEFORE LUNCH AND INJECT 24 UNITS BEFORE SUPPER AND INJECT 24 UNITS SNACK FOR BLOOD SUGAR CONTROL. ADMINISTER 10 MINUTES BEFORE FOOD DIRECTED. REFRIGERATE UN-OPENED PENS. DISCARD CARTRIDGE 28 DAYS AFTER OPENING. PLUS CORRECTION 30 Jan 26, 2021 [id number] Jan 28, 2020 ELEUTERIO LIVINGSTON [facility] INSULIN,ASPART,HUMAN 100U/ML,NOVOLOG,FLEXPEN,3ML Discontinue d INJECT 20 UNITS SUBCUTANEOUSLY BEFORE MEALS FOR BLOOD SUGAR CONTROL. ADMINISTER 10 MINUTES BEFORE FOOD DIRECTED. REFRIGERATE UN-OPENED PENS. DISCARD CARTRIDGE 28 DAYS AFTER OPENING. PLUS CORRECTION FOR BLOOD SUGAR CONTROL. ADMINISTER 10 MINUTES BEFORE FOOD DIRECTED. REFRIGERATE UN-OPENED PENS. DISCARD CARTRIDGE 28 DAYS AFTER OPENING. PLUS CORRECTION Nov 16, 2020 [id number] Nov 16 ELEUTERIO LIVINGSTON [facility] [place] [facility] INSULIN,ASPART,HUMAN 100U/ML,NOVOLOG,FLEXPEN,3ML Discontinue d INJECT 15 UNITS SUBCUTANEOUSLY EVERY MORNING BEFORE MEAL AND INJECT 15 UNITS WITH LUNCH AND INJECT 15 UNITS WITH SUPPER AND INJECT 20 UNITS WITH SNACK FOR BLOOD SUGAR CONTROL. ADMINISTER 10 MINUTES BEFORE FOOD DIRECTED. REFRIGERATE UN-OPENED PENS. DISCARD CARTRIDGE 28 DAYS AFTER OPENING. 20 Dec 22, 2019 [id number] Oct 12, 2019 ELEUTERIO LIVINGSTON [facility] [place] [facility] INSULIN,GLARGINE,HUMAN 100 UNIT/ML INJ,SOLOSTAR,3ML Active INJECT 50 UNITS SUBCUTANEOUSLY EVERY MORNING FOR BLOOD SUGAR CONTROL. ADMINISTER AT SAME TIME EACH DAY DIRECTED. DISCARD ANY OPEN CARTRIDGE AFTER 28 DAYS. Sep 23, 2020 [id number] Jan 28, 2020 ELEUTERIO LIVINGSTON [facility] INSULIN,GLARGINE,HUMAN 100 UNIT/ML INJ,SOLOSTAR,3ML Disconti nued INJECT 45 UNITS SUBCUTANEOUSLY EVERY MORNING FOR BLOOD SUGAR CONTROL. ADMINISTER AT SAME TIME EACH DAY DIRECTED. DISCARD ANY OPEN CARTRIDGE AFTER 28 DAYS. Oct 23, 2019 [id number] Aug 30, 2019 ELEUTERIO LIVINGSTON [facility] LACTOBACILLUS ACIDOPHILUS TAB,CHEWABLE Non-VA CHEW ONE TABLET BY MOUTH ONCE A DAY Non-VA Documented by: MEGAN HAWK nted at: [facility] LANCET,SOFTCLIX Active USE LANCET 5 TIME S A DAY FOR TESTING BLOOD GLUCOSE DIRECTED 500 Dec 28, 2020 [id number] March 19, 2020 ELEUTERIO LIVINGSTON [facility] LANCET,SOFTCLIX Discontinued USE LANCET 5 TIME S A DAY FOR TESTING BLOOD GLUCOSE DIRECTED 500 Jan 11, 2020 [id number] Sep 29, 2019 ELEUTERIO PATEL [facility] MAGNESIUM OXIDE 400MG TAB Non-VA TAKE ONE TABLET BY MOUTH ONCE A DAY Non-VA Documented by: MEGAN HAWK nted at: [facility]NTravel Notes [facility] METOPROLOL SUCCINATE 200MG TAB,SA TAKE O NE-HALF TABLET BY MOUTH EVERY EVENING FOR HEART/BLOOD PRESSURE. SWALLOW WHOLE, DO NOT CRUSH OR CHEW (TABLETS MAY BE CUT IN HALF). 45 March 18, 2020 [id number] Dec 28, 2019 STANISLAV HAMMER [facility] NEEDLE 22G 1.5IN USE NEEDLE FOR EVERY MONTH Nov 12, 2019 [id number] Feb 07, 2019 ADELAIDA CLIFFORD [facility] [place] [facility] NEEDLE,PEN 31G,5MM Discontinued USE NEEDLE SUBCUTANE OUSLY 5 TIMES A DAY - THIS IS A SINGLE USE NEEDLE AND SHOULD BE DISCARDED AFTER USE 500 Dec 21, 2019 [id number] Sep 28, 2019 BALTRUSAITIS,ELEUTERIO Larry [facility] POTASSIUM CHLORIDE 10MEQ TAB,SA Active TAKE TWO TABLETS BY MOUTH TWO TIMES A DAY FOR POTASSIUM SUPPLEMENTATIONTAKE WITH FOOD 360 Dec 12, 2020 [id number] Mar 02, 2020 [facility] [place] 15 POTASSIUM CHLORIDE 10MEQ TAB,SA Discontinued TAKE ONE TABLET BY MOUTH THREE TIMES A DAY WITH MEALS FOR POTASSIUM SUPPLEMENTATIONTAKE WITH FOOD 180 March 16, 2020 [id number] Nov 29, 2019 BALTRUSAITIS,ELEUTERIO Larry [place] [place] [facility] POTASSIUM CHLORIDE 10MEQ TAB,SA Discontinued TAKE ONE TABLET BY MOUTH THREE TIMES A DAY WITH MEALS FOR POTASSIUM SUPPLEMENTATIONTAKE WITH FOOD 180 May 26, 2019 [id number] Jan 24, 2019 INGRIDYANELY [facility] [place] [facility] SYRINGE 2.5-3ML/NDL 25G 1IN Active USE 1 SYRINGE EVERY MONTH 3 Feb 21, 2021 [id number] March 20, 2020 [facility] SYRINGE 2.5-3ML/NDL 25G 1IN Discontinued USE 1 SYRINGE EVERY Thu 3 March 18, 2020 [id number] Dec 21, 2019 [facility]IC TESTOSTERONE CYPIONATE 200MG/ML INJ,1ML (IN OIL) Active INJECT 200 MG (1 ML) INTRAMUSCULARLY EVERY MONTH FOR HORMONE REPLACEMENT May 18, 2020 [id number] April 06, 2020 ADELAIDA CLIFFORD [facility] [place] [facility] TESTOSTERONE CYPIONATE 200MG/ML INJ,1ML (IN OIL) Discontinue d INJECT 200 MG (1 ML) INTRAMUSCULARLY EVERY MONTH FOR HORMONE REPLACEMENT March 25, 2020 [id number] Oct 25, 2019 ADELAIDA CLIFFORD [facility] [place] [facility] TESTOSTERONE CYPIONATE 200MG/ML INJ,1ML (IN OIL) Discontinue d INJECT 200 MG (1 ML) INTRAMUSCULARLY EVERY MONTH FOR HORMONE REPLACEMENT Nov 06, 2019 [id number] Sep 25, 2019 ADELAIDA CLIFFORD [facility] [place] [facility] TESTOSTERONE CYPIONATE 200MG/ML INJ,1ML (IN OIL) Discontinue d INJECT 200 MG (1 ML) INTRAMUSCULARLY EVERY MONTH FOR HORMONE REPLACEMENT 1 May 14, 2019 [id number] Apr 10, 2019 ADELAIDA CLIFFORD [facility] [place] [facility] TRAMADOL HCL 50MG TAB Active TAKE 1 TO 2 TABLET S BY MOUTH EVERY 6 HOURS NEEDED FOR PAIN 180 Jul 21, 2020 [id number] March 30, 2020 [facility] TRAMADOL HCL 50MG TAB Discontinued TAKE 1 TO 2 TABLET S BY MOUTH EVERY 6 HOURS NEEDED FOR PAIN 180 Jun 06, 2020 [id number] Jan 11, 2020 [facility] TRAMADOL HCL 50MG TAB Discontinued TAKE 1 TO 2 TABLET S BY MOUTH EVERY 6 HOURS NEEDED FOR PAIN 180 Jun 06, 2020 [id number] Dec 06, 2019 [facility] TRAMADOL HCL 50MG TAB Discontinued TAKE 1 TO 2 TABLET S BY MOUTH EVERY 6 HOURS NEEDED FOR PAIN 180 Dec 14, 2019 [id number] Nov 15, 2019 DANTE VALVERDE [facility] [place] [facility] TRAMADOL HCL 50MG TAB Discontinued TAKE 1 TO 2 TABLET S BY MOUTH EVERY 6 HOURS NEEDED FOR PAIN 180 Jul 06, 2019 [id number] May 26, 2019 [facility] [place] [facility] TRIAMCINOLONE ACETONIDE 0.5% CREAM,TOP Active A PPLY SPARINGLY TO AFFECTED AREA ONCE A DAY NEEDED FOR RASH 45 Jul 15, 2020 [id number] April 01 0 THOM CHAMBERS [facility] [place] [facility] TRIAMCINOLONE ACETONIDE 0.5% CREAM,TOP Discontinued A PPLY SPARINGLY TO AFFECTED AREA ONCE A DAY NEEDED FOR RASH 45 Oct 12, 2019 [id number] Jul THOM CHAMBERS [facility] [place] [facility] Problems (Conditions): All historical and current Section Date Range: From patient's date of to the date document was create d. This section includes a list of Problems (Conditions) know n to [facility] for the patient. It includes both active and inacti ve problems (conditions). The data comes from all [place] treatment facilities. Problem Status Problem Code Date of Onset Date of Resolution Comm ent(s) Provider Source Basal cell carcinoma of scalp Active [id number] THOM CHAMBERS [facility] [place] [facility] Chronic back pain Active [id number] TERRIE CHAMBERS [facility] [place] [facility] Chronic kidney disease stage 3 Active [id number] THOM CHAMBERS [facility] [place] [facility] Constipation Active [id number] THOM CHAMBERS [facility] [place] [facility] Diabetes mellitus Active [id number] THOM CHAMBERS [facility] [place] [facility] Diabetic neuropathy Active [id number] Neha CHAMBERS [facility] [place] [facility] Essential hypertension Active 33502456 THOM CHAMBERS [facility] [place] [facility] Hyperlipidemia Active [id number] THOM CHAMBERS [facility] [place] [facility] Hypogonadism Active 50448559 THOM CHAMBERS [facility] [place] [facility] Sleep apnea Active 66009619 REYESTHOM MCPHERSONIsaac COBB [facility] [place] [facility] Radiology Reports: +/- 30 days of the encounter No Data Provided for This Section Pathology Reports: +/- 30 days of the encounter No Data Provided for This Section Encounter Notes: All associated encounter notes This section contains the clinical notes associated to the Encounter. Date/Time Encounter Note(s) Provider Source Jul 19, 2019 04:23 PM CARE MANAGEMENT NOTE: LOCAL TITLE: EK-PACT CARE MANAGEMENT STANDARD TITLE: CARE MANAGEMENT NOTE DATE OF NOTE: JUL 19, 2019@16:23 ENTRY DATE: JUL 19, 2019@16:23:57 AUTHOR: ALLA NARAYANAN EXP COSIGNER: URGENCY: STATUS: COMPLETED PC from community health with 2 questions. 1. He now has a [facility] [employer] PCP and ask s if he can continue to get his testosterone injections at the [facility]. He was informed that he can have all [place] services except for primary care so should be able to have the injections at the [facility]. 2. [facility] states there is a conflict betwe en his pcp and about the paperwork involved in getting diabetic shoes. He states this tee has been going on since December and now the consult has . He is asking if a new consult can be placed. He was informed that a consult will be placed for the provider to sign if agreeable. He v/u. Time spent including consult: 9 m /es/ ALLA NARAYANAN RN Signed: 07/19/2019 16:45 Receipt Acknowledged By: 07/19/2019 18:25 /es/ ALLA UMANA [facility]
[2020-04-18 10:08] LABS: BILIRUBIN,URINE NEGATIVE (NEGATIVE); CLARITY,URINE CLEAR; COLOR,URINE YELLOW; GLUCOSE, URINE (UA) 2+ (NEGATIVE); KETONES,URINE NEGATIVE (NEGATIVE); LEUKOCYTE ESTERASE ,URINE NEGATIVE (NEGATIVE); NITRITE,URINE NEGATIVE (NEGATIVE); PH,URINE 7.5 (5-9); PROTEIN,URINE 2+ (NEGATIVE)
--- OUTSIDE RECORDS SUMMARY | 2020-04-18 10:09 | XMS REPORT | Encounter Summary ---
Author Author Department of [facility] SIMI palacio Organization Department of [facility] Address [address] [place] [phone] Phone Unavailable Care Team Providers Care Show Design Supervisor Name Role Phone THOM CHAMBERS PCP Unavailable [...] to Policy Woodard [facility] ([facility]) MEDICARE ADVANTAGE MCR ([facility]) Nov 09, 2017 [id number] [phone] SIMI COVARRUBIAS PATIENT [facility] (R) MEDICARE ADVANTAGE MCR ([facility]) Nov 09, 2017 [id number] [phone] SIMI COVARRUBIAS PATIENT [facility] ([facility]) MEDICARE ADVANTAGE MCR ([facility]) Nov 09, 2019 [id number] SIMI COVARRUBIAS PATIENT Selected Encounter This section includes the information on record at [place] for the Encounter. Date/Time Encounter Type Encounter Description Reason Provider Source Jul 13, 2019 05:10 PM Outpatient Encounter ADMIN PAT ACTIVTIES ([place] NCT) [facility] [place] [facility] IHE Encounter Template Text [...] Appointment Type Appointment Facili ty Name Jul 14, 2019 11:00 AM AMBULATORY - NONE [facility] [place] [facility] Jul 28, 2019 10:00 AM [facility] NONE [facility] Aug 04, 2019 11:00 AM AMBULATORY - NONE [facility] [place] [facility] Aug 16, 2019 01:00 PM AMBULATORY - NONE [facility] [place] [facility] Aug 25, 2019 10:00 AM [facility]ORY - NONE [facility] Sep 15, 2019 12:00 PM [facility] Sep 22, 2019 10:00 AM AMBULATORY - NONE [facility] Sep 23, 2019 11:00 AM AMBULATORY - NONE [facility] [place] [facility] Oct 17, 2019 03:00 PM AMBULATORY - NONE [facility] [place] [facility] Oct 20, 2019 10:00 AM AMBULATORY - NONE [facility] Nov 10, 2019 12:00 PM [facility] Nov 16, 2019 02:00 PM [facility] [place] [facility] Nov 16, 2019 03:00 PM AMBULATORY - NONE [facility] [place] [facility] Nov 17, 2019 10:00 AM AMBULATORY - NONE [facility] Dec 01, 2019 11:30 AM AMBULATORY - MEDICINE [facility] Dec 14, 2019 03:00 PM AMBULATORY - NONE [facility] [place] [facility] Dec 15, 2019 01:00 PM AMBULATORY - NONE [facility] Surgical Procedures: All associated to the encounter No Data Provided for This Section Lab Results: +/- 30 days of the encounter This section includes the Chemistry and Hematology Lab R esults on record with [place] for the patient. Radiology Reports and Pathology Report s are provided separately, in subsequent sections. Lab Results This section contains the Chemistry/Hematology Results anushka t were resulted 30 days before or 30 days after the date of the Encounter. Date/Time Source Result Type Result - Unit Interpretation Reference Range Comment Jul 07, 2019 09:11 AM [facility] PTH INTACT Specimen Type: PLASMA No comment entered. PTH INTACT 45.8 pg/mL 8.7-77.7 Jul 07, 2019 09:11 AM [facility] CBC & DIFF Specimen Type: BLOOD [...] 0.8 % Jul 07, 2019 09:11 AM [facility] URINALYSIS Specimen Type: URINE No comment [...] Trace /HPF Jul 07, 2019 09:11 AM [facility] MAGNESIUM (mg/dL) Specimen Type: PLASMA No comment entered. MAGNESIUM (mg/dL) 1.8 mg/dl 1.6-2.6 Jul 07, 2019 09:11 AM [facility] URIC ACID (mg/dL) Specimen Type: PLASMA No comment entered. URIC ACID (mg/dL) 6.7 mg/dL 3.5-7.2 Jul 07, 2019 09:11 AM [facility] VITAMIN D (25-OH) Specimen Type: SERUM No comment entered. VITAMIN D (25-OH) 42.9 ng/mL 30.0-96.0 Jul 07, 2019 09:11 AM [facility] MICROALBUMIN (CO,EK) Specimen Type: URINE No comment entered. *MICROALBUMIN(CONC) 46.6 mg/dL - *MICROALBUMIN(SPOT) 158 mcg/mg cr HH 0-29 *CREATININE mg/dL 295.0 mg/dl Not Avail. Jul 07, 2019 09:11 AM [facility] HEPATIC FUNCTION PANE L Specimen Type: PLASMA No comment entered. PROTEIN,TOTAL 6.1 g/dL 6.0-8.6 ALBUMIN 3.9 g/dl 3.4-5.0 TOTAL BILIRUBIN 0.4 mg/dL 0.2-1.2 DIRECT BILIRUBIN 0.2 mg/dL 0-0.5 ASPARTATE TRANSAMINASE 29 U/L 5-34 ALANINE AMINOTRANSFERASE 24 U/L 8-40 ALKALINE PHOSPHATASE 91 U/L 40-150 Jul 07, 2019 09:11 AM [facility] RENAL FUNCTION PANEL Specimen Type: PLASMA No comment entered. *CREATININE 1.22 mg/dL 0.7-1.3 UREA NITROGEN mg/dL 13 mg/dL 9-25 GLUCOSE 152 mg/dL H 72-99 SODIUM 140 mEq/L 136-145 POTASSIUM 3.3 mEq/L L 3.5-5.0 CALCIUM (mg/dL) 9.7 mg/dL 8.4-10.4 PHOSPHORUS INORGANIC 3.5 mg/dL 2.3-4.7 ALBUMIN 3.9 g/dl 3.4-5.0 CHLORIDE 99 mEq/L 98-107 CO2 31 mEq/L 22-31 EGFR 58.2 Jul 07, 2019 09:11 AM [facility] TABOLIC PANEL Specimen Type: PLASMA No [...] adverse reactions to drug (disorder) Renal impairment [facility] 15 METFORMIN Dec 01, 2017 Propensity to adverse reactions to drug (disorder) Renal impairment [facility] 15 Medications: [facility] dispensed [...] available).Discontinued = A prescription stopped by a [place] provider. It is no longer available to [...] TIMES A DAY 400 Sep 12, 2020 [id number] Feb 29, 2020 [facility] ROSINA PLUS (GLUCOSE) TEST STRIP Discontinued USE 1 STRIP FOR TESTING FOUR TIMES A DAY 400 Sep 15, 2019 [id number] Jun 13, 2019 [facility] ALCO[facility]AD Discontinued USE 1 PAD ON SKIN FOUR TIMES A DAY 40 0 Apr 25, 2020 [id number] Nov 29, 2019 B[facility]LEUTERIO [facility] [place] [facility] ALCOHOL PREP PAD Discontinued USE 1 PAD ON SKIN FOUR TIMES A DAY 40 0 Sep 15, 2019 [id number] Apr 18, 2019 YARASEBRING Laron [facility] ALLOPURINOL 100MG TAB Active TAKE ONE TABLET BY MOUTH ONCE A DAY FOR GOUT. TAKE WITH PLENTY OF WATER 90 Sep 23, 2020 [id number] Mar 05, 2020 SILVINA CHAMBERS [facility] [place] [facility] ALLOPURINOL 100MG TAB Discontinued TAKE ONE TABLET BY MOUTH ONCE A DAY FOR GOUT. TAKE WITH PLENTY OF WATER 90 Dec 30, 2019 [id number] Sep 17, 2019 THOM SHARPE [facility] [place] [facility] ALOGLIPTIN 12.5MG TAB Active TAKE ONE TABLET BY MOUTH O NCE A DAY FOR DIABETES 90 Sep 12, 2020 [id number] Mar 04, 2020 [facility] [place] [facility] ALOGLIPTIN 12.5MG TAB Discontinued TAKE ONE TABLET BY MOUTH ONCE A DAY FOR DIABETES 90 Dec 22, 2019 [id number] Jun 18, 2019 BALELEUTERIO KONG [facility] [place] [facility] AMLODIPINE BESYLATE 10MG TAB Discontinued TAKE ONE TA BLET BY MOUTH EVERY MORNING FOR HEART/BLOOD PRESSURE 90 Jun 10, 2019 [id number] Feb 25, 2019 MONIKA HAMMER [facility] [place] [facility] AMLODIPINE BESYLATE 10MG TAB TAKE ONE TA BLET BY MOUTH EVERY MORNING FOR HEART/BLOOD PRESSURE 90 Apr 12, 2020 [id number] Feb 10, 2020 SILVINA CHAMBERS [facility] ASPIRIN 81MG TAB,CHEWABLE Non-VA CHEW ONE TABLET BY MOUTH ONCE A DAY Non-VA Documented by: MEGAN HAWK nted at: [facility] ATORVASTATIN CA 20MG TAB Active TAKE ONE TABLET BY MOUTH ONCE A DAY FOR CHOLESTEROL. REPORT ANY UNEXPLAINED MUSCLE PAIN OR WEAKNESS TO YOUR DOCTOR. 90 Jan 02, 2021 [id number] March 24, 2020 [facility] [place] [facility] ATORVASTATIN CA 40MG TAB Discontinued TAKE ONE-HALF T ABLET BY MOUTH AT BEDTIME FOR CHOLESTEROL. REPORT ANY UNEXPLAINED MUSCLE PAIN OR WEAKNESS TO YOUR DOCTOR. 45 Jul 15, 2020 [id number] Oct 14, 2019 [facility] [place] [facility] ATORVASTATIN CA 40MG TAB Discontinued TAKE ONE-HALF T ABLET BY MOUTH AT BEDTIME FOR CHOLESTEROL. REPORT ANY UNEXPLAINED MUSCLE PAIN OR WEAKNESS TO YOUR DOCTOR. 45 Oct 12, 2019 [id number] Jul 16, 2019 THOM CHAMBERS [facility] [place] [facility] CALCIUM CARBONATE 500MG TAB,CHEWABLE Non-VA CHEW ONE TABLET BY MOUTH PRN Non-VA Documented by: THOM CHAMBERS nted at: [facility] CHLORTHALIDONE 25MG TAB Active TAKE ONE TABLET BY MOUTH ONCE A DAY 90 Jul 01, 2020 [id number] March 19, 2020 MONIKA HAMMER [facility] [place] [facility] CHLORTHALIDONE 25MG TAB Discontinued TAKE ONE TABLET BY MOUTH ONCE A DAY 90 Jun 16, 2019 [id number] Apr 12, 2019 MONIKA HAMMER [facility] [place] [facility] CHOLECALCIFEROL 1000UNT TAB Non-VA TAKE ONE TABLET BY MOUTH EVERY OTHER DAY Non-VA Docume nted by: MEGAN HAWK Docume nted at: [facility] CYANOCOBALAMIN 1000MCG/ML INJ Active INJECT 100 0 MCG (1 ML) INTRAMUSCULARLY EVERY MONTH FOR B12 SUPPLEMENTATION. 3 Nov 03, 2020 [id number] Apr 23, 2020 [facility] [place] [facility] CYANOCOBALAMIN 1000MCG/ML INJ Discontinued INJECT 100 0 MCG (1 ML) INTRAMUSCULARLY EVERY MONTH FOR B12 SUPPLEMENTATION. 3 Nov 17 0 [id number] Aug 07, 2019 [facility] [place] [facility] DIPHENHYDRAMINE HCL 25MG CAP Non-VA TAKE 1 CAPSULE BY MOUTH PRN Non-VA Documented by: THOM CHAMBERS Docume nted at: [facility] DOCUSATE NA 100MG CAP No n-VA TAKE 2 CAPSULES BY MOUTH ONCE A DAY Non-VA Documented by: THOM CHAMBERS Docume nted at: [facility] FISH OIL 1000MG (500MG DHA/EPA) CAP,ORAL Non-VA TAKE 1 CAPSULE BY MOUTH ONCE A DAY Non-VA Documented by: MEGAN HAWK Docume nted at: [facility] GABAPENTIN 100MG CAP Active TAKE 1 CAPSULE BY M OUTH EVERY MORNING AND TAKE 1 CAPSULE BY MOUTH AT NOON AND TAKE 2 CAPSULES BY MOUTH AT BEDTIME 360 Jul 06, 2020 [id number] March 31, 2020 ELEUTERIO [facility] [place] [facility] GLUCAGON 1MG/GABRIELLA INJ,EMERGENCY KIT INJEC T 1MG SUBCUTANEOUSLY NEEDED FOR SEVERE HYPOGLYCEMIA 1 Nov 30, 2019 [id number] Nov 03, 2019 THOM CHAMBERS [facility] [place] [facility] INSULIN,ASPART,HUMAN 100U/ML,NOVOLOG,FLEXPEN,3ML Active: On Hold INJECT 20 UNITS SUBCUTANEOUSLY BEFORE BREAKFAST AND INJECT 20 UNITS BEFORE LUNCH AND INJECT 26 UNITS BEFORE SUPPER AND INJECT 24 UNITS SNACK FOR BLOOD SUGAR CONTROL. ADMINISTER 10 MINUTES BEFORE FOOD DIRECTED. REFRIGERATE UN-OPENED PENS. DISCARD CARTRIDGE 28 DAYS AFTER OPENING. PLUS CORRECTION Mar 01, 2021 [id number] ELEUTERIO LIVINGSTON [facility] [place] INSULIN,ASPART,HUMAN 100U/ML,NOVOLOG,FLEXPEN,3ML Discontinue d INJECT 20 UNITS SUBCUTANEOUSLY BEFORE BREAKFAST AND INJECT 20 UNITS BEFORE LUNCH AND INJECT 24 UNITS BEFORE SUPPER AND INJECT 24 UNITS SNACK FOR BLOOD SUGAR CONTROL. ADMINISTER 10 MINUTES BEFORE FOOD DIRECTED. REFRIGERATE UN-OPENED PENS. DISCARD CARTRIDGE 28 DAYS AFTER OPENING. PLUS CORRECTION 30 Jan 26, 2021 [id number] Jan 28, 2020 [facility] [place] [facility] INSULIN,ASPART,HUMAN 100U/ML,NOVOLOG,FLEXPEN,3ML Discontinue d INJECT 20 UNITS SUBCUTANEOUSLY BEFORE MEALS FOR BLOOD SUGAR CONTROL. ADMINISTER 10 MINUTES BEFORE FOOD DIRECTED. REFRIGERATE UN-OPENED PENS. DISCARD CARTRIDGE 28 DAYS AFTER OPENING. PLUS CORRECTION FOR BLOOD SUGAR CONTROL. ADMINISTER 10 MINUTES BEFORE FOOD DIRECTED. REFRIGERATE UN-OPENED PENS. DISCARD CARTRIDGE 28 DAYS AFTER OPENING. PLUS CORRECTION 30 Nov 16, 2020 [id number] Nov 16 [facility] [place] [facility] INSULIN,ASPART,HUMAN 100U/ML,NOVOLOG,FLEXPEN,3ML Discontinue d INJECT 15 UNITS SUBCUTANEOUSLY EVERY MORNING BEFORE MEAL AND INJECT 15 UNITS WITH LUNCH AND INJECT 15 UNITS WITH SUPPER AND INJECT 20 UNITS WITH SNACK FOR BLOOD SUGAR CONTROL. ADMINISTER 10 MINUTES BEFORE FOOD DIRECTED. REFRIGERATE UN-OPENED PENS. DISCARD CARTRIDGE 28 DAYS AFTER OPENING. Dec 22, 2019 [id number] Oct 12, 2019 [facility] [place] [facility] INSULIN,GLARGINE,HUMAN 100 UNIT/ML INJ,SOLOSTAR,3ML Active INJECT 50 UNITS SUBCUTANEOUSLY EVERY MORNING FOR BLOOD SUGAR CONTROL. ADMINISTER AT SAME TIME EACH DAY DIRECTED. DISCARD ANY OPEN CARTRIDGE AFTER 28 DAYS. Sep 23, 2020 [id number] Jan 28, 2020 [facility] [place] [facility] INSULIN,GLARGINE,HUMAN 100 UNIT/ML INJ,SOLOSTAR,3ML Disconti nued INJECT 45 UNITS SUBCUTANEOUSLY EVERY MORNING FOR BLOOD SUGAR CONTROL. ADMINISTER AT SAME TIME EACH DAY DIRECTED. DISCARD ANY OPEN CARTRIDGE AFTER 28 DAYS. Oct 23, 2019 [id number] Aug 30, 2019 [facility] [place] [facility] LACTOBACILLUS ACIDOPHILUS TAB,CHEWABLE Non-VA CHEW ONE TABLET BY MOUTH ONCE A DAY Non-VA Documented by: MEGAN HAWK nted at: [facility] LANCET,SOFTCLIX Active USE LANCET 5 TIME S A DAY FOR TESTING BLOOD GLUCOSE DIRECTED 500 Dec 28, 2020 [id number] March 19, 2020 ELEUTERIO LIV[facility]STON [facility] [place] [facility] LANCET,SOFTCLIX Discontinued USE LANCET 5 TIME S A DAY FOR TESTING BLOOD GLUCOSE DIRECTED 500 Jan 11, 2020 [id number] Sep 29, 2019 CRY[place] ITISELEUTERIO Larry [facility] [place] [facility] MAGNESIUM OXIDE 400MG TAB Non-VA TAKE ONE TABLET BY MOUTH ONCE A DAY Non-VA Documented by: MEGAN HAWK nted at: [facility] METOPROLOL SUCCINATE 200MG TAB,SA TAKE O NE-HALF TABLET BY MOUTH EVERY EVENING FOR HEART/BLOOD PRESSURE. SWALLOW WHOLE, DO NOT CRUSH OR CHEW (TABLETS MAY BE CUT IN HALF). 45 March 18, 2020 [id number] Dec 28, 2019 STANISLAV HAMMER [facility] NEEDLE 22G 1.5IN USE NEEDLE FOR EVERY MONTH 1 Nov 12, 2019 [id number] Feb 07, 2019 ADELAIDA CLIFFORD [facility] [place] [facility] NEEDLE,PEN 31G,5MM Discontinued USE NEEDLE SUBCUTANE OUSLY 5 TIMES A DAY - THIS IS A SINGLE USE NEEDLE AND SHOULD BE DISCARDED AFTER USE 500 Dec 21, 2019 [id number] Sep 28, 2019 YAYAELEUTERIO QUIGLEY [facility] POTASSIUM CHLORIDE 10MEQ TAB,SA Active TAKE TWO TABLETS BY MOUTH TWO TIMES A DAY FOR POTASSIUM SUPPLEMENTATIONTAKE WITH FOOD 360 Dec 12, 2020 [id number] Mar 02, 2020 YANELY QUINTERO [facility], [place] 15 POTASSIUM CHLORIDE 10MEQ TAB,SA Discontinued TAKE ONE TABLET BY MOUTH THREE TIMES A DAY WITH MEALS FOR POTASSIUM SUPPLEMENTATIONTAKE WITH FOOD 180 March 16, 2020 [id number] Nov 29, 2019 YAYAELEUTERIO QUIGLEY [facility] [place] [facility] POTASSIUM CHLORIDE 10MEQ TAB,SA Discontinued TAKE ONE TABLET BY MOUTH THREE TIMES A DAY WITH MEALS FOR POTASSIUM SUPPLEMENTATIONTAKE WITH FOOD 180 May 26, 2019 [id number] Jan 24, 2019 YANELY QUINTERO [facility] [place] [facility] SYRINGE 2.5-3ML/NDL 25G 1IN Active USE 1 SYRINGE EVERY MONTH 3 Feb 21, 2021 [id number] March 20, 2020 [facility] SYRINGE 2.5-3ML/NDL 25G 1IN Discontinued USE 1 SYRINGE EVERY Thu 3 March 18, 2020 [id number] Dec 21, 2019 [facility] TESTOSTERONE CYPIONATE 200MG/ML INJ,1ML (IN OIL) Active INJECT 200 MG (1 ML) INTRAMUSCULARLY EVERY MONTH FOR HORMONE REPLACEMENT 1 May 18, 2020 [id number] April 06, 2020 ADELAIDA CLIFFORD [facility] [place] [facility] TESTOSTERONE CYPIONATE 200MG/ML INJ,1ML (IN OIL) Discontinue d INJECT 200 MG (1 ML) INTRAMUSCULARLY EVERY MONTH FOR HORMONE REPLACEMENT 1 March 25, 2020 [id number] Oct 25, 2019 ADELAIDA CLIFFORD [facility] [place] [facility] TESTOSTERONE CYPIONATE 200MG/ML INJ,1ML (IN OIL) Discontinue d INJECT 200 MG (1 ML) INTRAMUSCULARLY EVERY MONTH FOR HORMONE REPLACEMENT 1 Nov 06, 2019 [id number] Sep 25, 2019 ADELAIDA CLIFFORD [facility] [place] [facility] TESTOSTERONE CYPIONATE 200MG/ML INJ,1ML (IN OIL) Discontinue d INJECT 200 MG (1 ML) INTRAMUSCULARLY EVERY MONTH FOR HORMONE REPLACEMENT 1 May 14, 2019 [id number] Apr 10, 2019 ADELAIDA CLIFFORD [facility] [place] [facility] TRAMADOL HCL 50MG TAB Active TAKE 1 TO 2 TABLET S BY MOUTH EVERY 6 HOURS NEEDED FOR PAIN 180 Jul 21, 2020 [id number] March 30, 2020 [facility] TRAMADOL HCL 50MG TAB Discontinued TAKE 1 TO 2 TABLET S BY MOUTH EVERY 6 HOURS NEEDED FOR PAIN 180 Jun 06, 2020 [id number] Jan 11, 2020 [facility] TRAMADOL HCL 50MG TAB Discontinued TAKE 1 TO 2 TABLET S BY MOUTH EVERY 6 HOURS NEEDED FOR PAIN 180 Jun 06, 2020 [id number] Dec 06, 2019 [facility] TRAMADOL HCL 50MG TAB Discontinued TAKE 1 TO 2 TABLET S BY MOUTH EVERY 6 HOURS NEEDED FOR PAIN 180 Dec 14, 2019 [id number] Nov 15, 2019 DANTE VALVERDE [facility] [place] [facility] TRAMADOL HCL 50MG TAB Discontinued TAKE 1 TO 2 TABLET S BY MOUTH EVERY 6 HOURS NEEDED FOR PAIN 180 Jul 06, 2019 [id number] May 26, 2019 NELLA GROVE [facility] [place] [facility] TRIAMCINOLONE ACETONIDE 0.5% CREAM,TOP Active A PPLY SPARINGLY TO AFFECTED AREA ONCE A DAY NEEDED FOR RASH 45 Jul 15, 2020 [id number] April 01 0 THOM CHAMBERS [facility] [place] [facility] TRIAMCINOLONE ACETONIDE 0.5% CREAM,TOP Discontinued A PPLY SPARINGLY TO AFFECTED AREA ONCE A DAY NEEDED FOR RASH 45 Oct 12, 2019 [id number] Jul REYESTHOM [facility] [place] [facility] Problems (Conditions): All historical and [...] Source Basal cell carcinoma of scalp Active [id number] THOM CHAMBERS [facility] [place] [facility] Chronic back pain Active [id number] TERRIE CHAMBERS [facility] [place] [facility] Chronic kidney disease stage 3 Active [id number] THOM CHAMBERS [facility] [place] [facility] Constipation Active 68148152 THOM CHAMBERS [facility] [place] [facility] Diabetes mellitus Active 50105670 THOM CHAMBERS [facility] [place] [facility] Diabetic neuropathy Active [id number] Neha CHAMBERS [facility] [place] [facility] Essential hypertension Active 82894070 THOM CHAMBERS [facility] [place] [facility] Hyperlipidemia Active 93540461 THOM CHAMBERS [facility] [place] [facility] Hypogonadism Active 35873561 THOM CHAMBERS [facility] [place] [facility] Sleep apnea Active 40602208 THOM CHAMBERS [facility] [place] [facility] Radiology Reports: +/- 30 days of the encounter No Data Provided for This Section Pathology Reports: +/- 30 days of the encounter No Data Provided for This Section Encounter Notes: All associated encounter notes This section contains the clinical notes associated to the Encounter. Date/Time Encounter Note(s) Provider Source Jul 13, 2019 05:10 PM CARE MANAGEMENT NOTE: LOCAL TITLE: EK-PACT CARE MANAGEMENT STANDARD TITLE: CARE MANAGEMENT NOTE DATE OF NOTE: JUL 13, 2019@17:10 ENTRY DATE: JUL 13, 2019@17:10:43 AUTHOR: ALLA NARAYANAN EXP COSIGNER: URGENCY: STATUS: COMPLETED EK-PACT CARE MANAGEMENT Has ADDENDA Order received from Dr. Nella Grove for HGBA1c. To provider for viewing. /es/ ALLA NARAYANAN RN Signed: 07/13/2019 17:12 07/14/2019 ADDENDUM STATUS: COMPLETED PC to Dr. Grove's office to clarify above order. As of today, vet is assigned under the [place] to Dr. Grove as primary care provider. VM message left requesting return call to this content writer. Ph # given. /es/ ALLA NARAYANAN RN Signed: 07/14/2019 09:24 ALLA NARAYANAN [facility]
--- OUTSIDE RECORDS SUMMARY | 2020-04-18 10:09 | XMS REPORT | Encounter Summary ---
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 Name Role Phone REYES THOM PCP Unavailable [...] Woodard [facility] MED REP ([facility]) MEDICARE ADVANTAGE MCR ([facility]) Nov 09, 2017 [id number] [phone] SIMI COVARRUBIAS PATIENT [employer] FREEDOM MED REP (WNR) MEDICARE ADVANTAGE MCR ([facility]) Nov 09, 2017 [id number] [phone] SIMI COVARRUBIAS PATIENT [employer] MCR (WN) MEDICARE ADVANTAGE MCR ([facility]) Nov 09, [phone] [id number] SIMI COVARRUBIAS PATIENT Selected Encounter This section includes the information on record at [place] for the Encounter. Date/Time Encounter Type Encounter Description Reason Provider Source Jul 14, 2019 11:00 AM Outpatient Encounter COMMUNITY [facility]ARE CONSULT [facility] [place] [facility] IHE Encounter Template [...] appointme nts. The data comes from all [place] treatment facilities. Appointment Date/Time Appointment Type Appointment Facili ty Name Jul 28, 2019 10:00 AM [facility]ORY [facility] NONE [facility] Aug 04, 2019 11:00 AM [facility] [place] [facility] Aug 16, 2019 01:00 PM [facility] N[facility] [place] [facility] Aug 25, 2019 10:00 AM AM[facility]ULATORY - NONE [facility] Sep 15, 2019 12:00 PM [facility] - [facility]ICINE [facility] Sep 22, 2019 [...] 2019 02:00 PM [facility]ATORY - SURGERY [facility] [place] [facility] Nov 16, 2019 [...] - NONE [facility] Surgical Procedures: All [...] Range Comment Jul 07, 2019 09:11 AM [facility] PTH INTACT Specimen Type: PLASMA No comment entered. PTH INTACT 45.8 pg/mL 8.7-77.7 Jul 07, 2019 09:11 AM [facility] CBC & DIFF [...] 0.8 % Jul 07, 2019 09:11 AM [facility] URINALYSIS Specimen Type: [...] Trace /HPF Jul 07, 2019 09:11 AM [facility] MAGNESIUM (mg/dL) Specimen Type: PLASMA No comment entered. MAGNESIUM (mg/dL) 1.8 mg/dl 1.6-2.6 Jul 07, 2019 09:11 AM [facility] URIC ACID (mg/dL) Specimen Type: PLASMA No comment entered. URIC ACID (mg/dL) 6.7 mg/dL 3.5-7.2 Jul 07, 2019 09:11 AM [facility] VITAMIN D (25-OH) Specimen Type: SERUM No comment entered. VITAMIN D (25-OH) 42.9 ng/mL 30.0-96.0 Jul 07, 2019 09:11 AM [facility] MICROALBUMIN (CO,EK) Specimen Type: URINE No comment entered. *MICROALBUMIN(CONC) 46.6 mg/dL - *MICROALBUMIN(SPOT) 158 mcg/mg cr HH 0-29 *CREATININE mg/dL 295.0 mg/dl Not Avail. Jul 07, 2019 09:11 AM [facility] HEPATIC FUNCTION PANE L Specimen Type: PLASMA No comment entered. PROTEIN,TOTAL 6.1 g/dL 6.0-8.6 ALBUMIN 3.9 g/dl 3.4-5.0 TOTAL BILIRUBIN 0.4 mg/dL 0.2-1.2 DIRECT BILIRUBIN 0.2 mg/dL 0-0.5 ASPARTATE TRANSAMINASE 29 U/L 5-34 ALANINE AMINOTRANSFERASE 24 U/L 8-40 ALKALINE PHOSPHATASE 91 U/L 40-150 Jul 07, 2019 09:11 AM [facility] RENAL FUNCTION PANEL [...] EGFR 58.2 Jul 07, 2019 09:11 AM [facility] TABOLIC PANEL Specimen Type: PLASMA No [...] Adverse Reactions (ADR s) on record with [place] for the patient. The data comes from a ll [place] treatment facilities. It does not list Allergies/ADRs that were removed or entered in error. Some allergies/ADRs may be reported in t Immunization section. Allergen Event Date Event Type Reaction(s) Severity Source LISINOPRIL Dec 01, 2017 Propensity to adverse reactions to drug (disorder) Renal impairment [facility] 15 METFORMIN Dec 01, 2017 Propensity to adverse reactions to drug (disorder) Renal impairment [facility] 15 Medications: VA dispensed (-15 months) and Non-VA Documented (Obtained Outside A) Section Date Range: 1) prescriptions processed by a VA pharmacy in the last 15 m [facility], and 2) all medications recorded in the [place] medical record as "non-VA medic ations". Pharmacy terms refer to VA pharmacy's work on prescriptions. VA patient s are advised to take their medications as instructed by their health care team. The data comes from all [place] treatment facilities. Glossary of Pharmacy Terms:Active = A prescription that can be filled at the local [place] pharmacy.Active: On Hold = An active prescription that will not be filled until pharmacy resolves the issue.Active: Susp = An active prescription that is not scheduled to be filled yet.Clinic Order = A medication received during a visit to a [place] clinic or emergency department (currently not available).Discontinued = A prescription stopped by a [place] provider. It is no longer available to be filled. = A prescription which is too old to fill. This does not refer to the expiration date of the medication in the container. Non-VA = A medication that came from someplace other than a [place] pharmacy. This may be a prescription from either the [place] or other providers that was filled outside the [place]. Or, it may be an over the [...] TIMES A DAY 400 Sep 12, 2020 [id number] Feb 29, 2020 ELEUTERIO LIVINGSTON [facility] ACCU-CHEK ROSINA PLUS (GLUCOSE) TEST STRIP Discontinued USE 1 STRIP FOR TESTING FOUR TIMES A DAY 400 Sep 15, 2019 [id number] Jun 13, 2019 ELEUTERIO LARA [facility] ALCOHOL PREP PAD Discontinued USE 1 PAD ON SKIN FOUR TIMES A DAY 40 0 Apr 25, 2020 [id number] Nov 29, 2019 ELEUTERIO LIVINGSTON [facility] [place] [facility] ALCOHOL PREP PAD Discontinued USE 1 PAD ON SKIN FOUR TIMES A DAY 40 0 Sep 15, 2019 [id number] Apr 18, 2019 ELEUTERIO LIVINGSTON [facility] ALLOPURINOL 100MG TAB Active TAKE ONE TABLET BY MOUTH ONCE A DAY FOR GOUT. TAKE WITH PLENTY OF WATER 90 Sep 23, 2020 [id number] Mar 05, 2020 SILVINA CHAMBERS [facility] [place] [facility] ALLOPURINOL 100MG TAB Discontinued TAKE ONE TABLET BY MOUTH ONCE A DAY FOR GOUT. TAKE WITH PLENTY OF WATER 90 Dec 30, 2019 [id number] Sep 17, 2019 THOM SHARPE [facility] [place] [facility] ALOGLIPTIN 12.5MG TAB Active TAKE ONE TABLET BY MOUTH O NCE A DAY FOR DIABETES 90 Sep 12, 2020 [id number] Mar 04, 2020 ELEUTERIO LIVINGSTON [facility] [place] [facility] ALOGLIPTIN 12.5MG TAB Discontinued TAKE ONE TABLET BY MOUTH ONCE A DAY FOR DIABETES 90 Dec 22, 2019 [id number] Jun 18, 2019 BALTRUSAITIS,ELEUTERIO Larry [facility] [place] [facility] AMLODIPINE BESYLATE 10MG TAB Discontinued TAKE ONE TA BLET BY MOUTH EVERY MORNING FOR HEART/BLOOD PRESSURE 90 Jun 10, 2019 [id number] Feb 25, 2019 MONIKA HAMMER [facility] [place] [facility] AMLODIPINE BESYLATE 10MG TAB TAKE ONE TA BLET BY MOUTH EVERY MORNING FOR HEART/BLOOD PRESSURE 90 Apr 12, 2020 [id number] Feb 10, 2020 SILVINA CHAMBERS [facility] ASPIRIN 81MG TAB,CHEWABLE Non-VA CHEW ONE TABLET BY MOUTH ONCE A DAY Non-VA Documented by: MEGAN HAWK nted at[facility] ATORVASTATIN CA 20MG TAB Active TAKE ONE TABLET BY MOUTH ONCE A DAY FOR CHOLESTEROL. REPORT ANY UNEXPLAINED MUSCLE PAIN OR WEAKNESS TO YOUR DOCTOR. 90 Jan 02, 2021 [id number] March 24, 2020 NELLA GROVE [facility] ATORVASTATIN CA 40MG TAB Discontinued TAKE ONE-HALF T ABLET BY MOUTH AT BEDTIME FOR CHOLESTEROL. REPORT ANY UNEXPLAINED MUSCLE PAIN OR WEAKNESS TO YOUR DOCTOR. 45 Jul 15, 2020 [id number] Oct 14, 2019 THOM CHAMBERS [facility] [place] [facility] ATORVASTATIN CA 40MG TAB Discontinued TAKE ONE-HALF T ABLET BY MOUTH AT BEDTIME FOR CHOLESTEROL. REPORT ANY UNEXPLAINED MUSCLE PAIN OR WEAKNESS TO YOUR DOCTOR. 45 Oct 12, 2019 [id number] Jul 16, 2019 THMO CHAMBERS [facility] [place] [facility] CALCIUM CARBONATE 500MG TAB,CHEWABLE Non-VA CHEW ONE TABLET BY MOUTH PRN Non-VA Documented by: THOM CHAMBERS nted at: [facility] CHLORTHALIDONE 25MG TAB Active TAKE ONE TABLET BY MOUTH ONCE A DAY 90 Jul 01, 2020 [id number] March 19, 2020 MONIKA HAMMER [facility] [place] [facility] CHLORTHALIDONE 25MG TAB Discontinued TAKE ONE TABLET BY MOUTH ONCE A DAY 90 Jun 16, 2019 [id number] Apr 12, 2019 MONIKA HAMMER [facility] [place] [facility] CHOLECALCIFEROL 1000UNT TAB Non-VA TAKE ONE TABLET BY MOUTH EVERY OTHER DAY Non-VA Docume nted by: MEGAN HAWK Docume nted at: [facility] CYANOCOBALAMIN 1000MCG/ML INJ Active INJECT 100 0 MCG (1 ML) INTRAMUSCULARLY EVERY MONTH FOR B12 SUPPLEMENTATION. 3 Nov 03, 2020 [id number] Apr 23, 2020 [facility] [place] [facility] CYANOCOBALAMIN 1000MCG/ML INJ Discontinued INJECT 100 0 MCG (1 ML) INTRAMUSCULARLY EVERY MONTH FOR B12 SUPPLEMENTATION. 3 Nov 17 0 [id number] Aug 07, 2019 [facility] [place] [facility] DIPHENHYDRAMINE HCL 25MG [...] Documented by: MEGAN HAWK Docume nted at: [facility] [place] [facility] GABAPENTIN 100MG CAP Active TAKE 1 CAPSULE BY M OUTH EVERY MORNING AND TAKE 1 CAPSULE BY MOUTH AT NOON AND TAKE 2 CAPSULES BY MOUTH AT BEDTIME 360 Jul 06, 2020 [id number] March 31, 2020 ELEUTERIO LIVINGSTON [facility] [place] [facility] GLUCAGON 1MG/GABRIELLA INJ,EMERGENCY KIT INJEC T 1MG SUBCUTANEOUSLY NEEDED FOR SEVERE HYPOGLYCEMIA 1 Nov 30, 2019 [id number] Nov 03, 2019 [facility] [place] [facility] INSULIN,ASPART,HUMAN 100U/ML,NOVOLOG,FLEXPEN,3ML Active: On Hold INJECT 20 UNITS SUBCUTANEOUSLY BEFORE BREAKFAST AND INJECT 20 UNITS BEFORE LUNCH AND INJECT 26 UNITS BEFORE SUPPER AND INJECT 24 UNITS SNACK FOR BLOOD SUGAR CONTROL. ADMINISTER 10 MINUTES BEFORE FOOD DIRECTED. REFRIGERATE UN-OPENED PENS. DISCARD CARTRIDGE 28 DAYS AFTER OPENING. PLUS CORRECTION Mar 01, 2021 [id number] ELEUTERIO LIVINGSTON [facility] [place] [facility] INSULIN,ASPART,HUMAN 100U/ML,NOVOLOG,FLEXPEN,3ML Discontinue d INJECT 20 UNITS SUBCUTANEOUSLY BEFORE BREAKFAST AND INJECT 20 UNITS BEFORE LUNCH AND INJECT 24 UNITS BEFORE SUPPER AND INJECT 24 UNITS SNACK FOR BLOOD SUGAR CONTROL. ADMINISTER 10 MINUTES BEFORE FOOD DIRECTED. REFRIGERATE UN-OPENED PENS. DISCARD CARTRIDGE 28 DAYS AFTER OPENING. PLUS CORRECTION 30 Jan 26, 2021 [id number] Jan 28, 2020 [facility] [place] [facility] INSULIN,ASPART,HUMAN 100U/ML,NOVOLOG,FLEXPEN,3ML Discontinue d INJECT 20 UNITS SUBCUTANEOUSLY BEFORE MEALS FOR BLOOD SUGAR CONTROL. ADMINISTER 10 MINUTES BEFORE FOOD DIRECTED. REFRIGERATE UN-OPENED PENS. DISCARD CARTRIDGE 28 DAYS AFTER OPENING. PLUS CORRECTION FOR BLOOD SUGAR CONTROL. ADMINISTER 10 MINUTES BEFORE FOOD DIRECTED. REFRIGERATE UN-OPENED PENS. DISCARD CARTRIDGE 28 DAYS AFTER OPENING. PLUS CORRECTION 30 Nov 16, 2020 [id number] Nov 16 [facility] [place] [facility] INSULIN,ASPART,HUMAN 100U/ML,NOVOLOG,FLEXPEN,3ML Discontinue d INJECT 15 UNITS SUBCUTANEOUSLY EVERY MORNING BEFORE MEAL AND INJECT 15 UNITS WITH LUNCH AND INJECT 15 UNITS WITH SUPPER AND INJECT 20 UNITS WITH SNACK FOR BLOOD SUGAR CONTROL. ADMINISTER 10 MINUTES BEFORE FOOD DIRECTED. REFRIGERATE UN-OPENED PENS. DISCARD CARTRIDGE 28 DAYS AFTER OPENING. Dec 22, 2019 [id number] Oct 12, 2019 [facility] [place] [facility] INSULIN,GLARGINE,HUMAN 100 UNIT/ML INJ,SOLOSTAR,3ML Active INJECT 50 UNITS SUBCUTANEOUSLY EVERY MORNING FOR BLOOD SUGAR CONTROL. ADMINISTER AT SAME TIME EACH DAY DIRECTED. DISCARD ANY OPEN CARTRIDGE AFTER 28 DAYS. Sep 23, 2020 [id number] Jan 28, 2020 [facility] [place] [facility] INSULIN,GLARGINE,HUMAN 100 UNIT/ML INJ,SOLOSTAR,3ML Disconti nued INJECT 45 UNITS SUBCUTANEOUSLY EVERY MORNING FOR BLOOD SUGAR CONTROL. ADMINISTER AT SAME TIME EACH DAY DIRECTED. DISCARD ANY OPEN CARTRIDGE AFTER 28 DAYS. Oct 23, 2019 [id number] Aug 30, 2019 [facility] [place] [facility] LACTOBACILLUS ACIDOPHILUS TAB,CHEWABLE Non-VA CHEW ONE TABLET BY MOUTH ONCE A DAY Non-VA Documented by: MEGAN HAWK nted at: [facility] LANCET,SOFTCLIX Active USE LANCET 5 TIME S A DAY FOR TESTING BLOOD GLUCOSE DIRECTED 500 Dec 28, 2020 [id number] March 19, 2020 ELEUTERIO LIVINGSTON [facility] [place] [facility] LANCET,SOFTCLIX Discontinued USE LANCET 5 TIME S A DAY FOR TESTING BLOOD GLUCOSE DIRECTED 500 Jan 11, 2020 [id number] Sep 29, 2019 CRYSTAL[place] ITISELEUTERIO Laron [facility] [place] [facility] MAGNESIUM OXIDE 400MG TAB Non-VA TAKE ONE TABLET BY MOUTH ONCE A DAY Non-[place] Documented by: MEGAN HAWK nted at: [facility] METOPROLOL SUCCINATE 200MG TAB,SA TAKE O NE-HALF TABLET BY MOUTH EVERY EVENING FOR HEART/BLOOD PRESSURE. SWALLOW WHOLE, DO NOT CRUSH OR CHEW (TABLETS MAY BE CUT IN HALF). 45 March 18, 2020 [id number] Dec 28, 2019 STANISLAV HAMMER [facility] NEEDLE 22G 1.5IN USE NEEDLE FOR EVERY MONTH 1 Nov 12, 2019 [id number] Feb 07, 2019 ADELAIDA CLIFFORD [facility] [place] [facility] NEEDLE,PEN 31G,5MM Discontinued USE NEEDLE SUBCUTANE OUSLY 5 TIMES A DAY - THIS IS A SINGLE USE NEEDLE AND SHOULD BE DISCARDED AFTER USE 500 Dec 21, 2019 [id number] Sep 28, 2019 ELEUTERIO LIVINGSTON [facility] [place] [facility] POTASSIUM CHLORIDE 10MEQ TAB,SA Active TAKE TWO TABLETS BY MOUTH TWO TIMES A DAY FOR POTASSIUM SUPPLEMENTATIONTAKE WITH FOOD 360 Dec 12, 2020 [id number] Mar 02, 2020 YANELY QUINTERO [facility] POTASSIUM CHLORIDE 10MEQ TAB,SA Discontinued TAKE ONE TABLET BY MOUTH THREE TIMES A DAY WITH MEALS FOR POTASSIUM SUPPLEMENTATIONTAKE WITH FOOD 180 March 16, 2020 [id number] Nov 29, 2019 ELEUTERIO LIVINGSTON [facility] [place] [facility] POTASSIUM CHLORIDE 10MEQ TAB,SA Discontinued TAKE ONE TABLET BY MOUTH THREE TIMES A DAY WITH MEALS FOR POTASSIUM SUPPLEMENTATIONTAKE WITH FOOD 180 May 26, 2019 [id number] Jan 24, 2019 YANELY QUINTERO [facility] [place] [facility] SYRINGE 2.5-3ML/NDL 25G 1IN Active USE 1 SYRINGE EVERY MONTH 3 Feb 21, 2021 [id number] March 20, 2020 [facility] SYRINGE 2.5-3ML/NDL 25G 1IN Discontinued USE 1 SYRINGE EVERY Thu 3 March 18, 2020 [id number] Dec 21, 2019 [facility] TESTOSTERONE CYPIONATE 200MG/ML INJ,1ML (IN OIL) Active INJECT 200 MG (1 ML) INTRAMUSCULARLY EVERY MONTH FOR HORMONE REPLACEMENT 1 May 18, 2020 [id number] April 06, 2020 ADELAIDA CLIFFORD [facility] [place] [facility] TESTOSTERONE CYPIONATE 200MG/ML INJ,1ML (IN OIL) Discontinue d INJECT 200 MG (1 ML) INTRAMUSCULARLY EVERY MONTH FOR HORMONE REPLACEMENT March 25, 2020 [id number] Oct 25, 2019 ADELAIDA CLIFFORD [facility] [place] [facility] TESTOSTERONE CYPIONATE 200MG/ML INJ,1ML (IN OIL) Discontinue d INJECT 200 MG (1 ML) INTRAMUSCULARLY EVERY MONTH FOR HORMONE REPLACEMENT 1 Nov 06, 2019 [id number] Sep 25, 2019 ADELAIDA CLIFFORD [facility] [place] [facility] TESTOSTERONE CYPIONATE 200MG/ML INJ,1ML (IN OIL) Discontinue d INJECT 200 MG (1 ML) INTRAMUSCULARLY EVERY MONTH FOR HORMONE REPLACEMENT 1 May 14, 2019 [id number] Apr 10, 2019 ADELAIDA CLIFFORD [facility] TRAMADOL HCL 50MG TAB Active TAKE 1 TO 2 TABLET S BY MOUTH EVERY 6 HOURS NEEDED FOR PAIN 180 Jul 21, 2020 [id number] March 30, 2020 [facility] TRAMADOL HCL 50MG TAB Discontinued TAKE 1 TO 2 TABLET S BY MOUTH EVERY 6 HOURS NEEDED FOR PAIN 180 Jun 06, 2020 [id number] Jan 11, 2020 [facility] TRAMADOL HCL 50MG TAB Discontinued TAKE 1 TO 2 TABLET S BY MOUTH EVERY 6 HOURS NEEDED FOR PAIN 180 Jun 06, 2020 [id number] Dec 06, 2019 [facility] TRAMADOL HCL 50MG TAB Discontinued TAKE 1 TO 2 TABLET S BY MOUTH EVERY 6 HOURS NEEDED FOR PAIN 180 Dec 14, 2019 [id number] Nov 15, 2019 DANTE VALVERDE [facility] [place] [facility] TRAMADOL HCL 50MG TAB Discontinued TAKE 1 TO 2 TABLET S BY MOUTH EVERY 6 HOURS NEEDED FOR PAIN 180 Jul 06, 2019 [id number] May 26, 2019 NELLA GROVE [facility] [place] [facility] TRIAMCINOLONE ACETONIDE 0.5% CREAM,TOP Active A PPLY SPARINGLY TO AFFECTED AREA ONCE A DAY NEEDED FOR RASH 45 Jul 15, 2020 [id number] April 01 0 REYESTHOM [facility] [place] [facility] TRIAMCINOLONE ACETONIDE 0.5% CREAM,TOP Discontinued A PPLY SPARINGLY TO AFFECTED AREA ONCE A DAY NEEDED FOR RASH 45 Oct 12, 2019 [id number] Jul REYESTHOM [facility] [place] [facility] Problems (Conditions): All historical and current Section Date Range: From patient's date of to the date document was create d. This section includes a list of Problems (Conditions) know n to [place] for the [place]. It includes both active and inacti ve problems (conditions). The data comes from all [place] treatment facilities. Problem Status Problem Code Date of Onset Date of Resolution Comm ent(s) Provider Source Basal cell carcinoma of scalp Active [id number] THOM CHAMBERS [facility] [place] [facility] Chronic back pain Active [id number] TERRIE CHAMBERS [facility] [place] [facility] Chronic kidney disease stage 3 Active [id number] THOM CHAMBERS [facility] [place] [facility] Constipation Active [id number] THOM CHAMBERS [facility] [place] [facility] Diabetes mellitus Active [id number] THOM CHAMBERS [facility] [place] [facility] Diabetic neuropathy Active [id number] Neha CHAMBERS [facility] [place] [facility] Essential hypertension Active 03973358 THOM CHAMBERS [facility] [place] [facility] Hyperlipidemia Active 15466185 THOM CHAMBERS [facility] [place] [facility] Hypogonadism Active 95677297 THOM CHAMBERS [facility] [place] [facility] Sleep apnea Active [id number] THOM CHAMBERS [facility] [place] [facility] Radiology Reports: +/- 30 days of the encounter No Data Provided for This Section Pathology Reports: +/- 30 days of the encounter No Data Provided for This Section Encounter Notes: All associated encounter notes No Data Provided for This Section
--- OUTSIDE RECORDS SUMMARY | 2020-04-18 10:10 | XMS REPORT | Encounter Summary ---
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 Name Role Phone THOM CHAMBERS PCP [...] to Policy Woodard [facility] ([facility]) MEDICARE ADVANTAGE MCR ([facility]) Nov 09, 2017 [id number] [phone] SIMI COVARRUBIAS PATIENT [facility] (R) MEDICARE ADVANTAGE MCR ([facility]) Nov 09, 2017 [id number] [phone] SIMI COVARRUBIAS PATIENT [facility] ([facility]) MEDICARE ADVANTAGE MCR ([facility]) Nov 09, 2019 [id number] [id number] SIMI COVARRUBIAS PATIENT Selected Encounter This section includes the information on record at VA for the Encounter. Date/Time Encounter Type Encounter Description Reason Provider Source Jul 10, 2019 03:42 PM Outpatient Encounter ADMIN PAT ACTIVTIES ([facility] NCT) [facility] [place] IHE Encounter Template Text not used by VA Assessments - Encounter Diagnoses No Data Provided for This Section Plan of Treatment: Future Appointments (+ 6 months) and Future Tests (+/- 45 day s) The Plan of Treatment section includes future care activities for the patient fr om all [place] treatment facilities. This section includes future appointments and fu ture orders which are active, pending or scheduled. Future Appointments This section includes appointments that were scheduled t o occur 6 months from the date of the Encounter, up to a maximum of 20 appointme nts. The data comes from all [place] treatment facilities. Appointment Date/Time Appointment Type Appointment Facili ty Name Jul 14, 2019 11:00 AM AMBULATORY - NONE [facility] [place] Jul 28, 2019 10:00 AM [facility] - NONE [facility] Aug 04, 2019 11:00 AM AMBULATORY - NONE [facility] [place] [facility] Aug 16, 2019 01:00 PM AMBULATORY - NONE [facility] [place] [facility] Aug 25, 2019 10:00 AM [facility] - NONE [facility] Sep 15, 2019 12:00 PM [facility] - [facility] Sep 22, 2019 10:00 AM AMBULATORY - NONE [facility] Sep 23, 2019 11:00 AM AMBULATORY - NONE [facility] [place] [facility] Oct 17, 2019 03:00 PM AMBULATORY - NONE [facility] [place] [facility] Oct 20, 2019 10:00 AM AMBULATORY - NONE [facility] Nov 10, 2019 12:00 PM [facility] Nov 16, 2019 02:00 PM [facility] [place] [facility] Nov 16, 2019 03:00 PM AMBULATORY - NONE [facility] [place] [facility] Nov 17, 2019 10:00 AM AMBULATORY - NONE [facility] Dec 01, 2019 11:30 AM AMBULATORY - MEDICINE [facility] Dec 14, 2019 03:00 PM AMBULATORY - NONE [facility] [place] [facility] Dec 15, 2019 01:00 PM AMBULATORY - NONE [facility] Surgical Procedures: All associated to the encounter No Data Provided for This Section Lab Results: +/- 30 days of the encounter This section includes the Chemistry and Hematology Lab R esults on record with [place] for the patient. Radiology Reports and Pathology Report s are provided separately, in subsequent sections. Lab Results This section contains the Chemistry/Hematology Results anushka t were resulted 30 days before or 30 days after the date of the Encounter. Date/Time Source Result Type Result - Unit Interpretation Reference Range Comment Jul 07, 2019 09:11 AM [facility] PTH INTACT Specimen Type: PLASMA No comment entered. PTH INTACT 45.8 pg/mL 8.7-77.7 Jul 07, 2019 09:11 AM [facility] CBC & DIFF Specimen Type: BLOOD No [...] 0.8 % Jul 07, 2019 09:11 AM [facility] URINALYSIS Specimen Type: URINE No comment entered. [...] Trace /HPF Jul 07, 2019 09:11 AM [facility] MAGNESIUM (mg/dL) Specimen Type: PLASMA No comment entered. MAGNESIUM (mg/dL) 1.8 mg/dl 1.6-2.6 Jul 07, 2019 09:11 AM [facility] URIC ACID (mg/dL) Specimen Type: PLASMA No comment entered. URIC ACID (mg/dL) 6.7 mg/dL 3.5-7.2 Jul 07, 2019 09:11 AM [facility] VITAMIN D (25-OH) Specimen Type: SERUM No comment entered. VITAMIN D (25-OH) 42.9 ng/mL 30.0-96.0 Jul 07, 2019 09:11 AM [facility] MICROALBUMIN (CO,EK) Specimen Type: URINE No comment entered. *MICROALBUMIN(CONC) 46.6 mg/dL - *MICROALBUMIN(SPOT) 158 mcg/mg cr HH 0-29 *CREATININE mg/dL 295.0 mg/dl Not Avail. Jul 07, 2019 09:11 AM [facility] HEPATIC FUNCTION PANE L Specimen Type: PLASMA No comment entered. PROTEIN,TOTAL 6.1 g/dL 6.0-8.6 ALBUMIN 3.9 g/dl 3.4-5.0 TOTAL BILIRUBIN 0.4 mg/dL 0.2-1.2 DIRECT BILIRUBIN 0.2 mg/dL 0-0.5 ASPARTATE TRANSAMINASE 29 U/L 5-34 ALANINE AMINOTRANSFERASE 24 U/L 8-40 ALKALINE PHOSPHATASE 91 U/L 40-150 Jul 07, 2019 09:11 AM [facility] RENAL FUNCTION PANEL Specimen Type: PLASMA No comment entered. *CREATININE 1.22 mg/dL 0.7-1.3 UREA NITROGEN mg/dL 13 mg/dL 9-25 GLUCOSE 152 mg/dL H 72-99 SODIUM 140 mEq/L 136-145 POTASSIUM 3.3 mEq/L L 3.5-5.0 CALCIUM (mg/dL) 9.7 mg/dL 8.4-10.4 PHOSPHORUS INORGANIC 3.5 mg/dL 2.3-4.7 ALBUMIN 3.9 g/dl 3.4-5.0 CHLORIDE 99 mEq/L 98-107 CO2 31 mEq/L 22-31 EGFR 58.2 Jul 07, 2019 09:11 AM [facility] TABOLIC PANEL Specimen Type: PLASMA No comment [...] patient. The data comes from a ll [place] treatment facilities. It does not list Allergies/ADRs that were removed or entered in error. Some allergies/ADRs may be reported in t he Immunization section. Allergen Event Date Event Type Reaction(s) Severity Source LISINOPRIL Dec 01, 2017 Propensity to adverse reactions to drug (disorder) Renal impairment [facility] METFORMIN Dec 01, 2017 Propensity to adverse reactions to drug (disorder) Renal impairment [facility] Medications: VA dispensed (-15 months) and Non-VA Documented (Obtained Outside V A) Section Date Range: 1) prescriptions processed by a VA pharmacy in the last 15 m [facility], and 2) all medications recorded in the [place] medical record as "non-VA medic ations". Pharmacy terms refer to [place] pharmacy's work on prescriptions. VA patient s are advised to take their medications as instructed by their health care team. The data comes from all [place] treatment facilities. Glossary of Pharmacy Terms:Active = A prescription that can be filled at the local [place] pharmacy.Active: On Hold = An active prescription that will not be filled until pharmacy resolves the issue.Active: Susp = An active prescription that is not scheduled to be filled yet.Clinic Order = A medication received during a visit to a [place] clinic or emergency department (currently not available).Discontinued = A prescription stopped by a [place] provider. It is no longer available to be filled. = A prescription which is too old to fill. This does not refer to the expiration date of the medication in the container. Non-VA = A medication that came from someplace other than a [place] pharmacy. This may be a prescription from either the [place] or other providers that was filled outside the [place]. Or, it may be an over the [...] TIMES A DAY 400 Sep 12, 2020 [id number] Feb 29, 2020 [facility] ACCU-CHEK ROSINA PLUS (GLUCOSE) TEST STRIP Discontinued USE 1 STRIP FOR TESTING FOUR TIMES A DAY 400 Sep 15, 2019 [id number] Jun 13, 2019 [facility] ALCOHOL PREP PAD Discontinued USE 1 PAD ON SKIN FOUR TIMES A DAY 40 0 Apr 25, 2020 [id number] Nov 29, 2019 BALELEUTERIO KONG [facility] [place] [facility] ALCOHOL PREP PAD Discontinued USE 1 PAD ON SKIN FOUR TIMES A DAY 40 0 Sep 15, 2019 [id number] Apr 18, 2019 YARARANDOLPH Laron [facility] ALLOPURINOL 100MG TAB Active TAKE ONE TABLET BY MOUTH ONCE A DAY FOR GOUT. TAKE WITH PLENTY OF WATER 90 Sep 23, 2020 [id number] Mar 05, 2020 SILVINA CHAMBERS [facility] [place] ALLOPURINOL 100MG TAB Discontinued TAKE ONE TABLET BY MOUTH ONCE A DAY FOR GOUT. TAKE WITH PLENTY OF WATER 90 Dec 30, 2019 [id number] Sep 17, 2019 THOM SHARPE [facility] [place] [facility] ALOGLIPTIN 12.5MG TAB Active TAKE ONE TABLET BY MOUTH O NCE A DAY FOR DIABETES 90 Sep 12, 2020 [id number] Mar 04, 2020 BALTRUSAELEUTERIO QUIGLEYBRYN [facility] [place] [facility] ALOGLIPTIN 12.5MG TAB Discontinued TAKE ONE TABLET BY MOUTH ONCE A DAY FOR DIABETES 90 Dec 22, 2019 [id number] Jun 18, 2019 BALELEUTERIO KONG [facility] [place] [facility] AMLODIPINE BESYLATE 10MG TAB Discontinued TAKE ONE TA BLET BY MOUTH EVERY MORNING FOR HEART/BLOOD PRESSURE 90 Jun 10, 2019 [id number] Feb 25, 2019 MONIKA HAMMER [facility] [place] [facility] AMLODIPINE BESYLATE 10MG TAB TAKE ONE TA BLET BY MOUTH EVERY MORNING FOR HEART/BLOOD PRESSURE 90 Apr 12, 2020 [id number] Feb 10, 2020 SILVINA CHAMBERS [facility] ASPIRIN 81MG TAB,CHEWABLE Non-VA CHEW ONE TABLET BY MOUTH ONCE A DAY Non-VA Documented by: MEGAN HAWK nted at: [facility] ATORVASTATIN CA 20MG TAB Active TAKE ONE TABLET BY MOUTH ONCE A DAY FOR CHOLESTEROL. REPORT ANY UNEXPLAINED MUSCLE PAIN OR WEAKNESS TO YOUR DOCTOR. 90 Jan 02, 2021 [id number] March 24, 2020 [facility] ATORVASTATIN CA 40MG TAB Discontinued TAKE ONE-HALF T ABLET BY MOUTH AT BEDTIME FOR CHOLESTEROL. REPORT ANY UNEXPLAINED MUSCLE PAIN OR WEAKNESS TO YOUR DOCTOR. 45 Jul 15, 2020 [id number] Oct 14, 2019 [facility] [place] [facility] ATORVASTATIN CA 40MG TAB Discontinued TAKE ONE-HALF T ABLET BY MOUTH AT BEDTIME FOR CHOLESTEROL. REPORT ANY UNEXPLAINED MUSCLE PAIN OR WEAKNESS TO YOUR DOCTOR. 45 Oct 12, 2019 [id number] Jul 16, 2019 THOM CHAMBERS [facility] [place] [facility] CALCIUM CARBONATE 500MG TAB,CHEWABLE Non-VA CHEW ONE TABLET BY MOUTH PRN Non-VA Documented by: THOM CHAMBERS nted at: [facility] CHLORTHALIDONE 25MG TAB Active TAKE ONE TABLET BY MOUTH ONCE A DAY 90 Jul 01, 2020 [id number] March 19, 2020 MONIKA HAMMER [facility] [place] [facility] CHLORTHALIDONE 25MG TAB Discontinued TAKE ONE TABLET BY MOUTH ONCE A DAY 90 Jun 16, 2019 [id number] Apr 12, 2019 MONIKA HAMMER [facility] [place] [facility] CHOLECALCIFEROL 1000UNT TAB Non-VA TAKE ONE TABLET BY MOUTH EVERY OTHER DAY Non-VA Docume nted by: MEGAN HAWK Docume nted at: [facility] CYANOCOBALAMIN 1000MCG/ML INJ Active INJECT 100 0 MCG (1 ML) INTRAMUSCULARLY EVERY MONTH FOR B12 SUPPLEMENTATION. 3 Nov 03, 2020 [id number] Apr 23, 2020 [facility] [place] [facility] CYANOCOBALAMIN 1000MCG/ML INJ Discontinued INJECT 100 0 MCG (1 ML) INTRAMUSCULARLY EVERY MONTH FOR B12 SUPPLEMENTATION. 3 Nov 17 0 [id number] Aug 07, 2019 [facility] [place] [facility] DIPHENHYDRAMINE HCL 25MG CAP Non-VA TAKE 1 CAPSULE BY MOUTH PRN Non-VA Documented by: THOM CHAMBERS Docume nted at: [facility] DOCUSATE NA 100MG CAP No n-VA TAKE 2 CAPSULES BY MOUTH ONCE A DAY Non-VA Documented by: THOM CHAMBERS Docume nted at: [facility] FISH OIL 1000MG (500MG DHA/EPA) CAP,ORAL Non-VA TAKE 1 CAPSULE BY MOUTH ONCE A DAY Non-VA Documented by: MEGAN HAWK Docume nted at: [facility] GABAPENTIN 100MG CAP Active TAKE 1 CAPSULE BY M OUTH EVERY MORNING AND TAKE 1 CAPSULE BY MOUTH AT NOON AND TAKE 2 CAPSULES BY MOUTH AT BEDTIME 360 Jul 06, 2020 [id number] March 31, 2020 ELEUTERIO LIVINGSTON [facility] [place] [facility] GLUCAGON 1MG/GABRIELLA INJ,EMERGENCY KIT INJEC T 1MG SUBCUTANEOUSLY NEEDED FOR SEVERE HYPOGLYCEMIA 1 Nov 30, 2019 [id number] Nov 03, 2019 THOM CHAMBERS [facility] [place] INSULIN,ASPART,HUMAN 100U/ML,NOVOLOG,FLEXPEN,3ML Active: On Hold INJECT 20 UNITS SUBCUTANEOUSLY BEFORE BREAKFAST AND INJECT 20 UNITS BEFORE LUNCH AND INJECT 26 UNITS BEFORE SUPPER AND INJECT 24 UNITS SNACK FOR BLOOD SUGAR CONTROL. ADMINISTER 10 MINUTES BEFORE FOOD DIRECTED. REFRIGERATE UN-OPENED PENS. DISCARD CARTRIDGE 28 DAYS AFTER OPENING. PLUS CORRECTION Mar 01, 2021 [id number] ELEUTERIO LIVINGSTON [facility] [place] INSULIN,ASPART,HUMAN 100U/ML,NOVOLOG,FLEXPEN,3ML Discontinue d INJECT 20 UNITS SUBCUTANEOUSLY BEFORE BREAKFAST AND INJECT 20 UNITS BEFORE LUNCH AND INJECT 24 UNITS BEFORE SUPPER AND INJECT 24 UNITS SNACK FOR BLOOD SUGAR CONTROL. ADMINISTER 10 MINUTES BEFORE FOOD DIRECTED. REFRIGERATE UN-OPENED PENS. DISCARD CARTRIDGE 28 DAYS AFTER OPENING. PLUS CORRECTION 30 Jan 26, 2021 [id number] Jan 28, 2020 [facility] [place] [facility] INSULIN,ASPART,HUMAN 100U/ML,NOVOLOG,FLEXPEN,3ML Discontinue d INJECT 20 UNITS SUBCUTANEOUSLY BEFORE MEALS FOR BLOOD SUGAR CONTROL. ADMINISTER 10 MINUTES BEFORE FOOD DIRECTED. REFRIGERATE UN-OPENED PENS. DISCARD CARTRIDGE 28 DAYS AFTER OPENING. PLUS CORRECTION FOR BLOOD SUGAR CONTROL. ADMINISTER 10 MINUTES BEFORE FOOD DIRECTED. REFRIGERATE UN-OPENED PENS. DISCARD CARTRIDGE 28 DAYS AFTER OPENING. PLUS CORRECTION 30 Nov 16, 2020 [id number] Nov 16 [facility] [place] [facility] INSULIN,ASPART,HUMAN 100U/ML,NOVOLOG,FLEXPEN,3ML Discontinue d INJECT 15 UNITS SUBCUTANEOUSLY EVERY MORNING BEFORE MEAL AND INJECT 15 UNITS WITH LUNCH AND INJECT 15 UNITS WITH SUPPER AND INJECT 20 UNITS WITH SNACK FOR BLOOD SUGAR CONTROL. ADMINISTER 10 MINUTES BEFORE FOOD DIRECTED. REFRIGERATE UN-OPENED PENS. DISCARD CARTRIDGE 28 DAYS AFTER OPENING. Dec 22, 2019 [id number] Oct 12, 2019 [facility] [place] [facility] INSULIN,GLARGINE,HUMAN 100 UNIT/ML INJ,SOLOSTAR,3ML Active INJECT 50 UNITS SUBCUTANEOUSLY EVERY MORNING FOR BLOOD SUGAR CONTROL. ADMINISTER AT SAME TIME EACH DAY DIRECTED. DISCARD ANY OPEN CARTRIDGE AFTER 28 DAYS. Sep 23, 2020 [id number] Jan 28, 2020 [facility] [place] [facility] INSULIN,GLARGINE,HUMAN 100 UNIT/ML INJ,SOLOSTAR,3ML Disconti nued INJECT 45 UNITS SUBCUTANEOUSLY EVERY MORNING FOR BLOOD SUGAR CONTROL. ADMINISTER AT SAME TIME EACH DAY DIRECTED. DISCARD ANY OPEN CARTRIDGE AFTER 28 DAYS. Oct 23, 2019 [id number] Aug 30, 2019 [facility] [place] [facility] LACTOBACILLUS ACIDOPHILUS TAB,CHEWABLE Non-VA CHEW ONE TABLET BY MOUTH ONCE A DAY Non-VA Documented by: MEGAN HAWK nted at: [facility] LANCET,SOFTCLIX Active USE LANCET 5 TIME S A DAY FOR TESTING BLOOD GLUCOSE DIRECTED 500 Dec 28, 2020 [id number] March 19, 2020 ELEUTERIO LIVINGSTON [facility] [place] [facility] LANCET,SOFTCLIX Discontinued USE LANCET 5 TIME S A DAY FOR TESTING BLOOD GLUCOSE DIRECTED 500 Jan 11, 2020 [id number] Sep 29, 2019 CRYSTAL[place] ITISELEUTERIO Larry [facility] [place] [facility] MAGNESIUM OXIDE 400MG TAB Non-VA TAKE ONE TABLET BY MOUTH ONCE A DAY Non-VA Documented by: MEGAN HAWK nted at: [facility] METOPROLOL SUCCINATE 200MG TAB,SA TAKE O NE-HALF TABLET BY MOUTH EVERY EVENING FOR HEART/BLOOD PRESSURE. SWALLOW WHOLE, DO NOT CRUSH OR CHEW (TABLETS MAY BE CUT IN HALF). 45 March 18, 2020 [id number] Dec 28, 2019 STANISLAV HAMMER [facility] NEEDLE 22G 1.5IN USE NEEDLE FOR EVERY MONTH 1 Nov 12, 2019 [id number] Feb 07, 2019 ADELAIDA CLIFFORD [facility] [place] [facility] NEEDLE,PEN 31G,5MM Discontinued USE NEEDLE SUBCUTANE OUSLY 5 TIMES A DAY - THIS IS A SINGLE USE NEEDLE AND SHOULD BE DISCARDED AFTER USE 500 Dec 21, 2019 [id number] Sep 28, 2019 YAYAELEUTERIO QUIGLEY [facility] POTASSIUM CHLORIDE 10MEQ TAB,SA Active TAKE TWO TABLETS BY MOUTH TWO TIMES A DAY FOR POTASSIUM SUPPLEMENTATIONTAKE WITH FOOD 360 Dec 12, 2020 [id number] Mar 02, 2020 YANELY QUINTERO [facility] POTASSIUM CHLORIDE 10MEQ TAB,SA Discontinued TAKE ONE TABLET BY MOUTH THREE TIMES A DAY WITH MEALS FOR POTASSIUM SUPPLEMENTATIONTAKE WITH FOOD 180 March 16, 2020 [id number] Nov 29, 2019 YAYAELEUTERIO QUIGLEY [facility] [place] [facility] POTASSIUM CHLORIDE 10MEQ TAB,SA Discontinued TAKE ONE TABLET BY MOUTH THREE TIMES A DAY WITH MEALS FOR POTASSIUM SUPPLEMENTATIONTAKE WITH FOOD 180 May 26, 2019 [id number] Jan 24, 2019 YANELY QUINTERO [facility] [place] [facility] SYRINGE 2.5-3ML/NDL 25G 1IN Active USE 1 SYRINGE EVERY MONTH 3 Feb 21, 2021 [id number] March 20, 2020 [facility] SYRINGE 2.5-3ML/NDL 25G 1IN Discontinued USE 1 SYRINGE EVERY Thu 3 March 18, 2020 [id number] Dec 21, 2019 [facility] TESTOSTERONE CYPIONATE 200MG/ML INJ,1ML (IN OIL) Active INJECT 200 MG (1 ML) INTRAMUSCULARLY EVERY MONTH FOR HORMONE REPLACEMENT 1 May 18, 2020 [id number] April 06, 2020 ADELAIDA CLIFFORD [facility] [place] [facility] TESTOSTERONE CYPIONATE 200MG/ML INJ,1ML (IN OIL) Discontinue d INJECT 200 MG (1 ML) INTRAMUSCULARLY EVERY MONTH FOR HORMONE REPLACEMENT 1 March 25, 2020 [id number] Oct 25, 2019 ADELAIDA CLIFFORD [facility] [place] [facility] TESTOSTERONE CYPIONATE 200MG/ML INJ,1ML (IN OIL) Discontinue d INJECT 200 MG (1 ML) INTRAMUSCULARLY EVERY MONTH FOR HORMONE REPLACEMENT 1 Nov 06, 2019 [id number] Sep 25, 2019 ADELAIDA CLIFFORD [facility] [place] [facility] TESTOSTERONE CYPIONATE 200MG/ML INJ,1ML (IN OIL) Discontinue d INJECT 200 MG (1 ML) INTRAMUSCULARLY EVERY MONTH FOR HORMONE REPLACEMENT 1 May 14, 2019 [id number] Apr 10, 2019 ADELAIDA CLIFFORD [facility] [facility] TRAMADOL HCL 50MG TAB Active TAKE 1 TO 2 TABLET S BY MOUTH EVERY 6 HOURS NEEDED FOR PAIN 180 Jul 21, 2020 [id number] March 30, 2020 [facility] TRAMADOL HCL 50MG TAB Discontinued TAKE 1 TO 2 TABLET S BY MOUTH EVERY 6 HOURS NEEDED FOR PAIN 180 Jun 06, 2020 [id number] Jan 11, 2020 [facility] TRAMADOL HCL 50MG TAB Discontinued TAKE 1 TO 2 TABLET S BY MOUTH EVERY 6 HOURS NEEDED FOR PAIN 180 Jun 06, 2020 [id number] Dec 06, 2019 [facility] TRAMADOL HCL 50MG TAB Discontinued TAKE 1 TO 2 TABLET S BY MOUTH EVERY 6 HOURS NEEDED FOR PAIN 180 Dec 14, 2019 [id number] Nov 15, 2019 DANTE VALVERDE [facility] [place] [facility] TRAMADOL HCL 50MG TAB Discontinued TAKE 1 TO 2 TABLET S BY MOUTH EVERY 6 HOURS NEEDED FOR PAIN 180 Jul 06, 2019 [id number] May 26, 2019 NELLA GROVE [facility] [place] [facility] TRIAMCINOLONE ACETONIDE 0.5% CREAM,TOP Active A PPLY SPARINGLY TO AFFECTED AREA ONCE A DAY NEEDED FOR RASH 45 Jul 15, 2020 [id number] April 01 0 THOM CHAMBERS [facility] [place] [facility] TRIAMCINOLONE ACETONIDE 0.5% CREAM,TOP Discontinued A PPLY SPARINGLY TO AFFECTED AREA ONCE A DAY NEEDED FOR RASH 45 Oct 12, 2019 [id number] Jul REYESTHOM [facility] [place] [facility] Problems (Conditions): All historical and current Section Date Range: From patient's date of to the date document was create d. This section includes a list of Problems (Conditions) know n to [facility] for the patient. It includes both active and inacti ve problems (conditions). The data comes from all [place] treatment facilities. Problem Status Problem Code Date of Onset Date of Resolution Comm ent(s) Provider Source Basal cell carcinoma of scalp Active [id number] THOM CHAMBERS [facility] [place] [facility] Chronic back pain Active [id number] TERRIE CHAMBERS [facility] [place] [facility] Chronic kidney disease stage 3 Active [id number] THOM CHAMBERS [facility] [place] [facility] Constipation Active [id number] THOM CHAMBERS [facility] [place] [facility] Diabetes mellitus Active 11342951 THOM CHAMBERS [facility] [place] [facility] Diabetic neuropathy Active [id number] Neha CHAMBERS [facility] [place] [facility] Essential hypertension Active 45114176 THOM CHAMBERS [facility] [place] [facility] Hyperlipidemia Active 07902662 THOM CHAMBERS [facility] [place] [facility] Hypogonadism Active 90211330 THOM CHAMBERS [facility] [place] [facility] Sleep apnea Active [id number] THOM CHAMBERS [facility] [place] [facility] Radiology Reports: +/- 30 days of the encounter No Data Provided for This Section Pathology Reports: +/- 30 days of the encounter No Data Provided for This Section Encounter Notes: All associated encounter notes This section contains the clinical notes associated to the Encounter. Date/Time Encounter Note(s) Provider Source Jul 10, 2019 03:42 PM ADMINISTRATIVE NOTE: LOCAL TITLE: EK-NOTIFICATION OF TEST RESULTS BY LETTER STANDARD TITLE: ADMINISTRATIVE NOTE DATE OF NOTE: JUL 10, 2019@15:42 ENTRY DATE: JUL 10, 2019@15:43:04 AUTHOR: THOM CHAMBERS COSIGNER: URGENCY: STATUS: COMPLETED JUL 10, 2019 SIMI COVARRUBIAS [address] [place], [place], [address] Dear Mr. COVARRUBIAS, I wanted to update you on your recent lab/test results: Specimen Collection Date: Jul 07, 2019@09:11 Test name Result units Ref. range Site Code VITAMIN D (25-OH) 42.9 ng/mL 30.0 - 96.0 [6027] PTH INTACT 45.8 pg/mL 8.7 - 77.7 [589] SODIUM 140 mEq/L 136 - 145 [6027] POTASSIUM 3.3 L mEq/L 3.5 - 5.0 [6027] CHLORIDE 99 mEq/L 98 - 107 [6027] CO2 31 mEq/L 22 - 31 [6027] UREA NITROGEN mg/dL 13 mg/dL 9 - 25 [6027] *CREATININE 1.22 mg/dL 0.7 - 1.3 [6027] EGFR 58.2 [6027] GLUCOSE 152 H mg/dL 72 - 99 [6027] CALCIUM (mg/dL) 9.7 mg/dL 8.4 - 10.4 [6027] MAGNESIUM (mg/dL) 1.8 mg/dl 1.6 - 2.6 [6027] URIC ACID (mg/dL) 6.7 mg/dL 3.5 - 7.2 [6027] ASPARTATE TRANSAMINASE 29 U/L 5 - 34 [6027] ALANINE AMINOTRANSFERASE 24 U/L 8 - 40 [6027] ALKALINE PHOSPHATASE 91 U/L 40 - 150 [6027] TOTAL BILIRUBIN 0.4 mg/dL 0.2 - 1.2 [6027] DIRECT BILIRUBIN 0.2 mg/dL 0 - 0.5 [6027] PROTEIN,TOTAL 6.1 g/dL 6.0 - 8.6 [6027] ALBUMIN 3.9 g/dl 3.4 - 5.0 [6027] PHOSPHORUS INORGANIC 3.5 mg/dL 2.3 - 4.7 [6027] SQUAMOUS EPITHELIAL Trace /HPF [6027] LEUKOCYTE ESTERASE Negative Ref: Negative [6027] URINE COLOR Yellow [6027] APPEARANCE,URINE Clear Ref: Clear [6027] SPECIFIC GRAVITY 1.025 1.005 - 1.030 [6027] UROBILINOGEN Negative mg/dL 0.1 - 1.0 [6027] URINE NITRITE Negative Ref: Negative [6027] URINE BLOOD Negative Ref: Negative [6027] URINE BILIRUBIN Negative Ref: Negative [6027] URINE KETONES Negative mg/dl Ref: Negative [6027] URINE GLUCOSE Negative mg/dL Ref: Negative [6027] URINE PROTEIN 100 mg/dl Ref: Negative-Trace URINE PH 5.0 5 - 8 [6027] *UR WBC 0-2 WBC/HPF 0 - 5 [6027] *UR RBC 0-2 RBC/HPF 0 - 2 [6027] URINE MUCUS Trace /LPF Ref: None [6027] *CREATININE mg/dL 295.0 mg/dl Ref: Not Avail. [6027] *MICROALBUMIN(CONC) 46.6 mg/dL - [6027] *MICROALBUMIN(SPOT) 158 H* mcg/mg cr 0 - 29 [6027] WBC 9.87 K/cmm 3.60 - 11.20 [6027] RBC 6.25 H M/ul 4.1 - 5.7 [6027] HGB 17.3 H g/dl 13.1 - 16.8 [6027] HCT 52.8 H % 38.2 - 48.4 [6027] MCV 84.5 fl 80.1 - 98.5 [6027] MCH 27.7 pg 27.0 - 34.0 [6027] MCHC 32.8 L g/dl 33.0 - 36.0 [6027] RDW 16.2 H % 11.8 - 15.1 [6027] PLATELET COUNT 232 K/cmm 150 - 400 [6027] MPV 11.5 H fl 7.5 - 11.2 [6027] NEUTROPHILS, AUTO % 76.8 % [6027] LYMPHOCYTES, AUTO% 11.9 % [6027] MONOCYTES, AUTO% 7.5 % [6027] EOSINOPHILS, AUTO% 2.0 % [6027] BASOPHILS, AUTO% 1.0 % [6027] IMMATURE GRANS, AUTO % 0.8 % [6027] NEUTROPHILS, ABSOLUTE 7.58 K/cmm 2.10 - 8.00 [6027] LYMPHOCYTES, ABSOLUTE 1.17 K/cmm 0.77 - 4.50 [6027] MONOCYTES, ABSOLUTE 0.74 K/cmm 0.19 - 0.80 [6027] EOSINOPHILS, ABSOLUTE 0.20 K/cmm 0.00 - 0.60 [6027] BASOPHILS, ABSOLUTE 0.10 K/cmm 0.00 - 0.20 [6027] IMMATURE GRANS, ABSOLUTE 0.08 H K/cmm 0.00 - 0.05 [6027] Your lab results have been sent to and . If you have any further questions, please call our [facility] clinic at or , [phone] or choose Option #4 to speak to the Nurse Project Development Director. Sincerely, NATALY Gonzalez /noa/ THOM INGRAM Signed: 07/10/2019 15:44 Receipt Acknowledged By: 07/12/2019 08:50 /noa/ REMY RODRIGUEZ medical radiation dosimetrist THOM CHAMBERS [facility]
--- OUTSIDE RECORDS SUMMARY | 2020-04-18 10:10 | XMS REPORT | Encounter Summary ---
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 Name Role Phone HTOM CHAMBERS PCP Unavailable Insurance Providers: All historical [...] to Policy Wood[place] [employer] REP ([place]) MEDICARE ADVANTAGE MCR ([place]) Nov 09, 2017 [id number] [phone] SIMI COVARRUBIAS PATIENT [employer] REP (R) MEDICARE ADVANTAGE MCR ([place]) Nov 09, 2017 [id number] [phone] SIMI COVARRUBIAS PATIENT [employer] ([place]) MEDICARE ADVANTAGE MCR ([place]) Nov 09, 2019 [id number] SIMI COVARRUBIAS PATIENT Selected Encounter This section includes the information on record at [place] for the Encounter. Date/Time Encounter Type Encounter Description Reason Provider Source Jul 08, 2019 08:23 AM Outpatient Encounter ADMIN PAT ACTIVTIES (MASNO NCT) [facility] [place] [facility] IHE Encounter Template Text not used by VA Assessments - Encounter Diagnoses No Data Provided for This Section Plan of Treatment: Future Appointments (+ 6 months) and Future Tests (+/- 45 day s) The Plan of Treatment section includes future care activities for the patient fr om all [place] treatment facilities. This section includes future appointments and fu ture orders which are active, pending or scheduled. Future Appointments This section includes appointments that were scheduled t o occur 6 months from the date of the Encounter, up to a maximum of 20 appointme nts. The data comes from all [place] treatment facilities. Appointment Date/Time Appointment Type Appointment Facili ty Name Jul 14, 2019 11:00 AM AMBULATORY - NONE [facility] [place] [facility] Jul 28, 2019 10:00 AM [facility] NONE [facility] Aug 04, 2019 11:00 AM AMBULATORY - NONE [facility] [place] [facility] Aug 16, 2019 01:00 PM AMBULATORY - NONE [facility] [place] [facility] Aug 25, 2019 10:00 AM [facility] - NONE [facility] Sep 15, 2019 12:00 PM [facility] - [facility] Sep 22, 2019 10:00 AM AMBULATORY - NONE [facility] Sep 23, 2019 11:00 AM AMBULATORY - NONE [facility] [place] [facility] Oct 17, 2019 03:00 PM AMBULATORY - NONE [facility] [place] [facility] Oct 20, 2019 10:00 AM AMBULATORY - NONE [facility] Nov 10, 2019 12:00 PM [facility] Nov 16, 2019 02:00 PM [facility] [place] [facility] Nov 16, 2019 03:00 PM AMBULATORY - NONE [facility] [place] [facility] Nov 17, 2019 10:00 AM AMBULATORY - NONE [facility] Dec 01, 2019 11:30 AM AMBULATORY - MEDICINE [facility] Dec 14, 2019 03:00 PM AMBULATORY - NONE [facility] [place] [facility] Dec 15, 2019 01:00 PM AMBULATORY - NONE [facility] Surgical Procedures: All associated to the encounter No Data Provided for This Section Lab Results: +/- 30 days of the encounter This section includes the Chemistry and Hematology Lab R esults on record with [place] for the patient. Radiology Reports and Pathology Report s are provided separately, in subsequent sections. Lab Results This section contains the Chemistry/Hematology Results anushka t were resulted 30 days before or 30 days after the date of the Encounter. Date/Time Source Result Type Result - Unit Interpretation Reference Range Comment Jul 07, 2019 09:11 AM [facility] PTH INTACT Specimen Type: PLASMA No comment entered. PTH INTACT 45.8 pg/mL 8.7-77.7 Jul 07, 2019 09:11 AM [facility] CBC & DIFF Specimen Type: BLOOD [...] 0.8 % Jul 07, 2019 09:11 AM [facility] URINALYSIS Specimen Type: URINE No comment [...] Trace /HPF Jul 07, 2019 09:11 AM [facility] MAGNESIUM (mg/dL) Specimen Type: PLASMA No comment entered. MAGNESIUM (mg/dL) 1.8 mg/dl 1.6-2.6 Jul 07, 2019 09:11 AM [facility] URIC ACID (mg/dL) Specimen Type: PLASMA No comment entered. URIC ACID (mg/dL) 6.7 mg/dL 3.5-7.2 Jul 07, 2019 09:11 AM [facility] VITAMIN D (25-OH) Specimen Type: SERUM No comment entered. VITAMIN D (25-OH) 42.9 ng/mL 30.0-96.0 Jul 07, 2019 09:11 AM [facility] MICROALBUMIN (CO,EK) Specimen Type: URINE No comment entered. *MICROALBUMIN(CONC) 46.6 mg/dL - *MICROALBUMIN(SPOT) 158 mcg/mg cr HH 0-29 *CREATININE mg/dL 295.0 mg/dl Not Avail. Jul 07, 2019 09:11 AM [facility] HEPATIC FUNCTION PANE L Specimen Type: PLASMA No comment entered. PROTEIN,TOTAL 6.1 g/dL 6.0-8.6 ALBUMIN 3.9 g/dl 3.4-5.0 TOTAL BILIRUBIN 0.4 mg/dL 0.2-1.2 DIRECT BILIRUBIN 0.2 mg/dL 0-0.5 ASPARTATE TRANSAMINASE 29 U/L 5-34 ALANINE AMINOTRANSFERASE 24 U/L 8-40 ALKALINE PHOSPHATASE 91 U/L 40-150 Jul 07, 2019 09:11 AM [facility] RENAL FUNCTION PANEL Specimen Type: PLASMA No comment entered. *CREATININE 1.22 mg/dL 0.7-1.3 UREA NITROGEN mg/dL 13 mg/dL 9-25 GLUCOSE 152 mg/dL H 72-99 SODIUM 140 mEq/L 136-145 POTASSIUM 3.3 mEq/L L 3.5-5.0 CALCIUM (mg/dL) 9.7 mg/dL 8.4-10.4 PHOSPHORUS INORGANIC 3.5 mg/dL 2.3-4.7 ALBUMIN 3.9 g/dl 3.4-5.0 CHLORIDE 99 mEq/L 98-107 CO2 31 mEq/L 22-31 EGFR 58.2 Jul 07, 2019 09:11 AM [facility] TABOLIC PANEL Specimen Type: PLASMA No comment [...] patient. The data comes from a ll [place] treatment facilities. It does not list Allergies/ADRs that were removed or entered in error. Some allergies/ADRs may be reported in t he Immunization section. Allergen Event Date Event Type Reaction(s) Severity Source LISINOPRIL Dec 01, 2017 Propensity to adverse reactions to drug (disorder) Renal impairment [facility] 15 METFORMIN Dec 01, 2017 Propensity to adverse reactions to drug (disorder) Renal impairment [facility] 15 Medications: VA dispensed (-15 months) and Non-VA Documented (Obtained Outside V A) Section Date Range: 1) prescriptions processed by a VA pharmacy in the last 15 m [facility], and 2) all medications recorded in the [place] medical record as "non-VA medic ations". Pharmacy terms refer to [place] pharmacy's work on prescriptions. VA patient s are advised to take their medications as instructed by their health care team. The data comes from all [place] treatment facilities. Glossary of Pharmacy Terms:Active = A prescription that can be filled at the local [place] pharmacy.Active: On Hold = An active prescription that will not be filled until pharmacy resolves the issue.Active: Susp = An active prescription that is not scheduled to be filled yet.Clinic Order = A medication received during a visit to a [place] clinic or emergency department (currently not available).Discontinued = A prescription stopped by a [place] provider. It is no longer available to be filled. = A prescription which is too old to fill. This does not refer to the expiration date of the medication in the container. Non-VA = A medication that came from someplace other than a [place] pharmacy. This may be a prescription from either the [place] or other providers that was filled outside the [place]. Or, it may be an over the [...] TIMES A DAY 400 Sep 12, 2020 [id number] Feb 29, 2020 [facility] ACCU-CHEK ROSINA PLUS (GLUCOSE) TEST STRIP Discontinued USE 1 STRIP FOR TESTING FOUR TIMES A DAY 400 Sep 15, 2019 [id number] Jun 13, 2019 [facility] ALCOHOL PREP PAD Discontinued USE 1 PAD ON SKIN FOUR TIMES A DAY 40 0 Apr 25, 2020 [id number] Nov 29, 2019 BALELEUTERIO KONG [facility] [place] [facility] ALCOHOL PREP PAD Discontinued USE 1 PAD ON SKIN FOUR TIMES A DAY 40 0 Sep 15, 2019 [id number] Apr 18, 2019 YARAALBANY Laron [facility] ALLOPURINOL 100MG TAB Active TAKE ONE TABLET BY MOUTH ONCE A DAY FOR GOUT. TAKE WITH PLENTY OF WATER 90 Sep 23, 2020 [id number] Mar 05, 2020 SILVINA CHAMBERS [facility] ALLOPURINOL 100MG TAB Discontinued TAKE ONE TABLET BY MOUTH ONCE A DAY FOR GOUT. TAKE WITH PLENTY OF WATER 90 Dec 30, 2019 [id number] Sep 17, 2019 THOM SHARPE [facility] [place] [facility] ALOGLIPTIN 12.5MG TAB Active TAKE ONE TABLET BY MOUTH O NCE A DAY FOR DIABETES 90 Sep 12, 2020 [id number] Mar 04, 2020 [facility] [place] [facility] ALOGLIPTIN 12.5MG TAB Discontinued TAKE ONE TABLET BY MOUTH ONCE A DAY FOR DIABETES 90 Dec 22, 2019 [id number] Jun 18, 2019 BALELEUTERIO KONG [facility] [place] [facility] AMLODIPINE BESYLATE 10MG TAB Discontinued TAKE ONE TA BLET BY MOUTH EVERY MORNING FOR HEART/BLOOD PRESSURE 90 Jun 10, 2019 [id number] Feb 25, 2019 MONIKA HAMMER [facility] AMLODIPINE BESYLATE 10MG TAB TAKE ONE TA BLET BY MOUTH EVERY MORNING FOR HEART/BLOOD PRESSURE 90 Apr 12, 2020 [id number] Feb 10, 2020 SILVINA CHAMBERS [facility] ASPIRIN 81MG TAB,CHEWABLE Non-VA CHEW ONE TABLET BY MOUTH ONCE A DAY Non-VA Documented by: MEGAN HAWK nted at: [facility] ATORVASTATIN CA 20MG TAB Active TAKE ONE TABLET BY MOUTH ONCE A DAY FOR CHOLESTEROL. REPORT ANY UNEXPLAINED MUSCLE PAIN OR WEAKNESS TO YOUR DOCTOR. 90 Jan 02, 2021 [id number] March 24, 2020 [facility] ATORVASTATIN CA 40MG TAB Discontinued TAKE ONE-HALF T ABLET BY MOUTH AT BEDTIME FOR CHOLESTEROL. REPORT ANY UNEXPLAINED MUSCLE PAIN OR WEAKNESS TO YOUR DOCTOR. 45 Jul 15, 2020 [id number] Oct 14, [address] [facility] [place] [facility] ATORVASTATIN CA 40MG TAB Discontinued TAKE ONE-HALF T ABLET BY MOUTH AT BEDTIME FOR CHOLESTEROL. REPORT ANY UNEXPLAINED MUSCLE PAIN OR WEAKNESS TO YOUR DOCTOR. 45 Oct 12, 2019 [id number] Jul 16, 2019 THOM CHAMBERS [facility] [place] [facility] CALCIUM CARBONATE 500MG TAB,CHEWABLE Non-VA CHEW ONE TABLET BY MOUTH PRN Non-VA Documented by: THOM CHAMBERS nted at: [facility] CHLORTHALIDONE 25MG TAB Active TAKE ONE TABLET BY MOUTH ONCE A DAY 90 Jul 01, 2020 [id number] March 19, 2020 MONIKA HAMMER [facility] [place] [facility] CHLORTHALIDONE 25MG TAB Discontinued TAKE ONE TABLET BY MOUTH ONCE A DAY 90 Jun 16, 2019 [id number] Apr 12, 2019 MONIKA HAMMER [facility] [place] [facility] CHOLECALCIFEROL 1000UNT TAB Non-VA TAKE ONE TABLET BY MOUTH EVERY OTHER DAY Non-VA Docume nted by: MEGAN HAWK Docume nted at: [facility] CYANOCOBALAMIN 1000MCG/ML INJ Active INJECT 100 0 MCG (1 ML) INTRAMUSCULARLY EVERY MONTH FOR B12 SUPPLEMENTATION. 3 Nov 03, 2020 [id number] Apr 23, [address] [facility] [place] [facility] CYANOCOBALAMIN 1000MCG/ML INJ Discontinued INJECT 100 0 MCG (1 ML) INTRAMUSCULARLY EVERY MONTH FOR B12 SUPPLEMENTATION. 3 Nov 17 0 [id number] Aug 07, [address] [facility] [place] [facility] DIPHENHYDRAMINE HCL 25MG CAP Non-VA TAKE 1 CAPSULE BY MOUTH PRN Non-VA Documented by: THOM CHAMBERS Docume nted at: [facility] DOCUSATE NA 100MG CAP No n-VA TAKE 2 CAPSULES BY MOUTH ONCE A DAY Non-VA Documented by: THOM CHAMBERS Docume nted at: [facility] FISH OIL 1000MG (500MG DHA/EPA) CAP,ORAL Non-VA TAKE 1 CAPSULE BY MOUTH ONCE A DAY Non-VA Documented by: MEGAN HAWK Docume nted at: [facility] GABAPENTIN 100MG CAP Active TAKE 1 CAPSULE BY M OUTH EVERY MORNING AND TAKE 1 CAPSULE BY MOUTH AT NOON AND TAKE 2 CAPSULES BY MOUTH AT BEDTIME 360 Jul 06, 2020 [id number] March 31, 2020 ELEUTERIO LIVINGSTON [facility] [place] [facility] GLUCAGON 1MG/GABRIELLA INJ,EMERGENCY KIT INJEC T 1MG SUBCUTANEOUSLY NEEDED FOR SEVERE HYPOGLYCEMIA 1 Nov 30, 2019 [id number] Nov 03, 2019 THOM CHAMBERS [facility] INSULIN,ASPART,HUMAN 100U/ML,NOVOLOG,FLEXPEN,3ML Active: On Hold INJECT 20 UNITS SUBCUTANEOUSLY BEFORE BREAKFAST AND INJECT 20 UNITS BEFORE LUNCH AND INJECT 26 UNITS BEFORE SUPPER AND INJECT 24 UNITS SNACK FOR BLOOD SUGAR CONTROL. ADMINISTER 10 MINUTES BEFORE FOOD DIRECTED. REFRIGERATE UN-OPENED PENS. DISCARD CARTRIDGE 28 DAYS AFTER OPENING. PLUS CORRECTION Mar 01, 2021 [id number] ELEUTERIO LIVINGSTON [facility] INSULIN,ASPART,HUMAN 100U/ML,NOVOLOG,FLEXPEN,3ML Discontinue d INJECT 20 UNITS SUBCUTANEOUSLY BEFORE BREAKFAST AND INJECT 20 UNITS BEFORE LUNCH AND INJECT 24 UNITS BEFORE SUPPER AND INJECT 24 UNITS SNACK FOR BLOOD SUGAR CONTROL. ADMINISTER 10 MINUTES BEFORE FOOD DIRECTED. REFRIGERATE UN-OPENED PENS. DISCARD CARTRIDGE 28 DAYS AFTER OPENING. PLUS CORRECTION 30 Jan 26, 2021 [id number] Jan 28, 2020 [facility] [place] [facility] INSULIN,ASPART,HUMAN 100U/ML,NOVOLOG,FLEXPEN,3ML Discontinue d INJECT 20 UNITS SUBCUTANEOUSLY BEFORE MEALS FOR BLOOD SUGAR CONTROL. ADMINISTER 10 MINUTES BEFORE FOOD DIRECTED. REFRIGERATE UN-OPENED PENS. DISCARD CARTRIDGE 28 DAYS AFTER OPENING. PLUS CORRECTION FOR BLOOD SUGAR CONTROL. ADMINISTER 10 MINUTES BEFORE FOOD DIRECTED. REFRIGERATE UN-OPENED PENS. DISCARD CARTRIDGE 28 DAYS AFTER OPENING. PLUS CORRECTION 30 Nov 16, 2020 [id number] Nov 16 [facility] [place] [facility] INSULIN,ASPART,HUMAN 100U/ML,NOVOLOG,FLEXPEN,3ML Discontinue d INJECT 15 UNITS SUBCUTANEOUSLY EVERY MORNING BEFORE MEAL AND INJECT 15 UNITS WITH LUNCH AND INJECT 15 UNITS WITH SUPPER AND INJECT 20 UNITS WITH SNACK FOR BLOOD SUGAR CONTROL. ADMINISTER 10 MINUTES BEFORE FOOD DIRECTED. REFRIGERATE UN-OPENED PENS. DISCARD CARTRIDGE 28 DAYS AFTER OPENING. Dec 22, 2019 5 [id number] Oct 12, 2019 [facility] [place] [facility] INSULIN,GLARGINE,HUMAN 100 UNIT/ML INJ,SOLOSTAR,3ML Active INJECT 50 UNITS SUBCUTANEOUSLY EVERY MORNING FOR BLOOD SUGAR CONTROL. ADMINISTER AT SAME TIME EACH DAY DIRECTED. DISCARD ANY OPEN CARTRIDGE AFTER 28 DAYS. Sep 23, 2020 [id number] Jan 28, 2020 [facility] [place] [facility] INSULIN,GLARGINE,HUMAN 100 UNIT/ML INJ,SOLOSTAR,3ML Disconti nued INJECT 45 UNITS SUBCUTANEOUSLY EVERY MORNING FOR BLOOD SUGAR CONTROL. ADMINISTER AT SAME TIME EACH DAY DIRECTED. DISCARD ANY OPEN CARTRIDGE AFTER 28 DAYS. Oct 23, 2019 [id number] Aug 30, 2019 [facility] [place] [facility] LACTOBACILLUS ACIDOPHILUS TAB,CHEWABLE Non-VA CHEW ONE TABLET BY MOUTH ONCE A DAY Non-VA Documented by: MEGAN HAWK nted at: [facility] LANCET,SOFTCLIX Active USE LANCET 5 TIME S A DAY FOR TESTING BLOOD GLUCOSE DIRECTED 500 Dec 28, 2020 [id number] March 19, 2020 ELEUTREIO LIVINGSTON [facility] LANCET,SOFTCLIX Discontinued USE LANCET 5 TIME S A DAY FOR TESTING BLOOD GLUCOSE DIRECTED 500 Jan 11, 2020 [id number] Sep 29, 2019 [place] ITISELEUTERIO Larry [facility] [place] [facility] MAGNESIUM OXIDE 400MG TAB Non-VA TAKE ONE TABLET BY MOUTH ONCE A DAY Non-VA Documented by: MEGAN HAWK nted at: [facility] METOPROLOL SUCCINATE 200MG TAB,SA TAKE O NE-HALF TABLET BY MOUTH EVERY EVENING FOR HEART/BLOOD PRESSURE. SWALLOW WHOLE, DO NOT CRUSH OR CHEW (TABLETS MAY BE CUT IN HALF). 45 March 18, 2020 [id number] Dec 28, 2019 STANISLAV HAMMER [facility] NEEDLE 22G 1.5IN USE NEEDLE FOR EVERY MONTH 1 Nov 12, 2019 [id number] Feb 07, 2019 ADELAIDA CLIFFORD [facility] [place] [facility] NEEDLE,PEN 31G,5MM Discontinued USE NEEDLE SUBCUTANE OUSLY 5 TIMES A DAY - THIS IS A SINGLE USE NEEDLE AND SHOULD BE DISCARDED AFTER USE 500 Dec 21, 2019 [id number] Sep 28, 2019 YAYAELEUTERIO QUIGLEY [facility] POTASSIUM CHLORIDE 10MEQ TAB,SA Active TAKE TWO TABLETS BY MOUTH TWO TIMES A DAY FOR POTASSIUM SUPPLEMENTATIONTAKE WITH FOOD 360 Dec 12, 2020 [id number] Mar 02, 2020 YANELY QUINTERO [facility] POTASSIUM CHLORIDE 10MEQ TAB,SA Discontinued TAKE ONE TABLET BY MOUTH THREE TIMES A DAY WITH MEALS FOR POTASSIUM SUPPLEMENTATIONTAKE WITH FOOD 180 March 16, 2020 [id number] Nov 29, 2019 YAYAELEUTERIO QUIGLEY [facility] [place] [facility] POTASSIUM CHLORIDE 10MEQ TAB,SA Discontinued TAKE ONE TABLET BY MOUTH THREE TIMES A DAY WITH MEALS FOR POTASSIUM SUPPLEMENTATIONTAKE WITH FOOD 180 May 26, 2019 [id number] Jan 24, 2019 [facility] [place] [facility] SYRINGE 2.5-3ML/NDL 25G 1IN Active USE 1 SYRINGE EVERY MONTH 3 Feb 21, 2021 [id number] March 20, 2020 [facility] SYRINGE 2.5-3ML/NDL 25G 1IN Discontinued USE 1 SYRINGE EVERY Thu 3 March 18, 2020 [id number] Dec 21, 2019 [facility] TESTOSTERONE CYPIONATE 200MG/ML INJ,1ML (IN OIL) Active INJECT 200 MG (1 ML) INTRAMUSCULARLY EVERY MONTH FOR HORMONE REPLACEMENT 1 May 18, 2020 [id number] April 06, 2020 ADELAIDA CLIFFORD [facility] TESTOSTERONE CYPIONATE 200MG/ML INJ,1ML (IN OIL) Discontinue d INJECT 200 MG (1 ML) INTRAMUSCULARLY EVERY MONTH FOR HORMONE REPLACEMENT 1 March 25, 2020 [id number] Oct 25, 2019 ADELAIDA CLIFFORD [facility] TESTOSTERONE CYPIONATE 200MG/ML INJ,1ML (IN OIL) Discontinue d INJECT 200 MG (1 ML) INTRAMUSCULARLY EVERY MONTH FOR HORMONE REPLACEMENT 1 Nov 06, 2019 [id number] Sep 25, 2019 ADELAIDA CLIFFORD [facility] [facility] TESTOSTERONE CYPIONATE 200MG/ML INJ,1ML (IN OIL) Discontinue d INJECT 200 MG (1 ML) INTRAMUSCULARLY EVERY MONTH FOR HORMONE REPLACEMENT 1 May 14, 2019 [id number] Apr 10, 2019 ADELAIDA CLIFFORD [facility] TRAMADOL HCL 50MG TAB Active TAKE 1 TO 2 TABLET S BY MOUTH EVERY 6 HOURS NEEDED FOR PAIN 180 Jul 21, 2020 [id number] March 30, 2020 [facility] TRAMADOL HCL 50MG TAB Discontinued TAKE 1 TO 2 TABLET S BY MOUTH EVERY 6 HOURS NEEDED FOR PAIN 180 Jun 06, 2020 [id number] Jan 11, 2020 [facility] TRAMADOL HCL 50MG TAB Discontinued TAKE 1 TO 2 TABLET S BY MOUTH EVERY 6 HOURS NEEDED FOR PAIN 180 Jun 06, 2020 [id number] Dec 06, 2019 [facility] TRAMADOL HCL 50MG TAB Discontinued TAKE 1 TO 2 TABLET S BY MOUTH EVERY 6 HOURS NEEDED FOR PAIN 180 Dec 14, 2019 [id number] Nov 15, 2019 DANTE VALVERDE [facility] [place] [facility] TRAMADOL HCL 50MG TAB Discontinued TAKE 1 TO 2 TABLET S BY MOUTH EVERY 6 HOURS NEEDED FOR PAIN 180 Jul 06, 2019 [id number] May 26, 2019 NELLA GROVE [facility] [place] [facility] TRIAMCINOLONE ACETONIDE 0.5% CREAM,TOP Active A PPLY SPARINGLY TO AFFECTED AREA ONCE A DAY NEEDED FOR RASH 45 Jul 15, 2020 [id number] April 01 0 THOM CHAMBERS [facility] TRIAMCINOLONE ACETONIDE 0.5% CREAM,TOP Discontinued A PPLY SPARINGLY TO AFFECTED AREA ONCE A DAY NEEDED FOR RASH 45 Oct 12, 2019 [id number] Jul REYESTHOM [facility] Problems (Conditions): All historical and current Section Date Range: From patient's date of to the date document was create d. This section includes a list of Problems (Conditions) know n to [facility] for the patient. It includes both active and inacti ve problems (conditions). The data comes from all [place] treatment facilities. Problem Status Problem Code Date of Onset Date of Resolution Comm ent(s) Provider Source Basal cell carcinoma of scalp Active [id number] THOM CHAMBERS [facility] Chronic back pain Active 431988580 TERRIE CHAMBERS [facility] Chronic kidney disease stage 3 Active [id number] THOM CHAMBERS [facility] Constipation Active 65616279 THOM CHAMBERS [facility] [place] [facility] Diabetes mellitus Active 46821882 THOM CHAMBERS [facility] Diabetic neuropathy Active 841918126 Neha CHAMBERS [facility] Essential hypertension Active 94007792 THOM CHAMBERS [facility] Hyperlipidemia Active 82532900 THOM CHAMBERS [facility] [place] [facility] Hypogonadism Active 47547922 THOM CHAMBERS [facility] [place] [facility] Sleep apnea Active 67008135 THOM CHAMBERS [facility] [place] [facility] Radiology Reports: +/- 30 days of the encounter No Data Provided for This Section Pathology Reports: +/- 30 days of the encounter No Data Provided for This Section Encounter Notes: All associated encounter notes This section contains the clinical notes associated to the Encounter. Date/Time Encounter Note(s) Provider Source Jul 08, 2019 08:23 AM ADMINISTRATIVE NOTE: LOCAL TITLE: EK-ADMINISTRATIVE STANDARD TITLE: ADMINISTRATIVE NOTE DATE OF NOTE: JUL 08, 2019@08:23 ENTRY DATE: JUL 08, 2019@08:23:43 AUTHOR: REMY RODRIGUEZ COSIGNER: URGENCY: STATUS: COMPLETED 's lab done on [id number] has been sent to and . /noa/ REMY RODRIGUEZ healthcare or medical Signed: 07/08/2019 08:26 REMY RODRIGUEZ [facility]
--- OUTSIDE RECORDS SUMMARY | 2020-04-18 10:10 | XMS REPORT | Encounter Summary ---
Author Author Department of [facility] SIMI palacio Organization Department of [facility] Address [address] [place] [id number] Phone Unavailable Care Team Providers Care Boiler Tube Blower Name Role Phone THOM CHAMBERS PCP Unavailable [...] Policy Woodard [facility] ([facility]) MEDICARE ADVANTAGE MCR ([facility]) Nov 09, 2017 [id number] [phone] SIMI COVARRUBIAS PATIENT [facility] (R) MEDICARE ADVANTAGE MCR ([facility]) Nov 09, 2017 [id number] [phone] SIMI COVARRUBIAS PATIENT [facility] ([facility]) MEDICARE ADVANTAGE MCR ([facility]) Nov 09, 2019 [id number] [id number] SIMI COVARRUBIAS PATIENT Selected Encounter This section includes the information on record at [place] for the Encounter. Date/Time Encounter Type Encounter Description Reason Provider Source Jul 06, 2019 07:31 AM Outpatient Encounter ADMIN PAT ACTIVTIES (MASNO NCT) [facility] [place] IHE Encounter Template [...] Appointment Type Appointment Facili ty Name Jul 07, 2019 11:45 AM [facility] Jul 14, 2019 11:00 AM [facility] [place] [facility] [place] [facility] [place] Jul 28, 2019 10:00 [...] 03:00 PM [facility] [facility] [place] [facility] [place] Dec 15, 2019 01:00 [...] Range Comment Jul 07, 2019 09:11 AM [facility] PTH INTACT Specimen Type: PLASMA No comment entered. PTH INTACT 45.8 pg/mL 8.7-77.7 Jul 07, 2019 09:11 AM [facility] CBC & DIFF Specimen Type: BLOOD [...] 0.8 % Jul 07, 2019 09:11 AM [facility] URINALYSIS Specimen Type: URINE No comment [...] Trace /HPF Jul 07, 2019 09:11 AM [facility] MAGNESIUM (mg/dL) Specimen Type: PLASMA No comment entered. MAGNESIUM (mg/dL) 1.8 mg/dl 1.6-2.6 Jul 07, 2019 09:11 AM [facility] URIC ACID (mg/dL) Specimen Type: PLASMA No comment entered. URIC ACID (mg/dL) 6.7 mg/dL 3.5-7.2 Jul 07, 2019 09:11 AM [facility] VITAMIN D (25-OH) Specimen Type: SERUM No comment entered. VITAMIN D (25-OH) 42.9 ng/mL 30.0-96.0 Jul 07, 2019 09:11 AM [facility] MICROALBUMIN (CO,EK) Specimen Type: URINE No comment entered. *MICROALBUMIN(CONC) 46.6 mg/dL - *MICROALBUMIN(SPOT) 158 mcg/mg cr HH 0-29 *CREATININE mg/dL 295.0 mg/dl Not Avail. Jul 07, 2019 09:11 AM [facility] HEPATIC FUNCTION PANE L Specimen Type: PLASMA No comment entered. PROTEIN,TOTAL 6.1 g/dL 6.0-8.6 ALBUMIN 3.9 g/dl 3.4-5.0 TOTAL BILIRUBIN 0.4 mg/dL 0.2-1.2 DIRECT BILIRUBIN 0.2 mg/dL 0-0.5 ASPARTATE TRANSAMINASE 29 U/L 5-34 ALANINE AMINOTRANSFERASE 24 U/L 8-40 ALKALINE PHOSPHATASE 91 U/L 40-150 Jul 07, 2019 09:11 AM [facility] RENAL FUNCTION PANEL Specimen Type: PLASMA No comment entered. *CREATININE 1.22 mg/dL 0.7-1.3 UREA NITROGEN mg/dL 13 mg/dL 9-25 GLUCOSE 152 mg/dL H 72-99 SODIUM 140 mEq/L 136-145 POTASSIUM 3.3 mEq/L L 3.5-5.0 CALCIUM (mg/dL) 9.7 mg/dL 8.4-10.4 PHOSPHORUS INORGANIC 3.5 mg/dL 2.3-4.7 ALBUMIN 3.9 g/dl 3.4-5.0 CHLORIDE 99 mEq/L 98-107 CO2 31 mEq/L 22-31 EGFR 58.2 Jul 07, 2019 09:11 AM [facility] [place] [facility] TABOLIC PANEL Specimen Type: PLASMA No comment [...] to drug (disorder) [facility]: [facility] dispensed (-15 months) and Non-VA Documented (Obtained Outside A) Section Date Range: 1) prescriptions processed by a [facility] pharmacy in the last 15 m [facility], and 2) all medications recorded in the [...] TIMES A DAY 400 Sep 12, 2020 [id number] Feb 29, [facility] ROSINA PLUS (GLUCOSE) TEST STRIP Discontinued USE 1 STRIP FOR TESTING FOUR TIMES A DAY 400 Sep 15, 2019 [id number] Jun 13, 2019 [facility] ALCOHOL PREP PAD Discontinued USE 1 PAD ON SKIN FOUR TIMES A DAY 40 0 Apr 25, 2020 [id number] Nov 29, 2019 [facility] [place] ALCOHOL PREP PAD Discontinued USE 1 PAD ON SKIN FOUR TIMES A DAY 40 0 Sep 15, 2019 [id number] Apr 18, 2019 [place] [facility] ALLOPURINOL 100MG TAB Active TAKE ONE TABLET BY MOUTH ONCE A DAY FOR GOUT. TAKE WITH PLENTY OF WATER 90 Sep 23, 2020 [id number] Mar 05, 2020 SILVINA CHAMBERS [facility] [place] ALLOPURINOL 100MG TAB Discontinued TAKE ONE TABLET BY MOUTH ONCE A DAY FOR GOUT. TAKE WITH PLENTY OF WATER 90 Dec 30, 2019 [id number] Sep 17, 2019 THOM SHARPE [facility] [place] ALOGLIPTIN 12.5MG TAB Active TAKE ONE TABLET BY MOUTH O NCE A DAY FOR DIABETES 90 Sep 12, 2020 [id number] Mar 04, 2020 BALTRUSAITIS,ELEUTERIO CRESPO [facility] [place] ALOGLIPTIN 12.5MG TAB Discontinued TAKE ONE TABLET BY MOUTH ONCE A DAY FOR DIABETES 90 Dec 22, 2019 [id number] Jun 18, 2019 BALTRUSADANNELEUTERIO [facility] [place] AMLODIPINE BESYLATE 10MG TAB Discontinued TAKE ONE TA BLET BY MOUTH EVERY MORNING FOR HEART/BLOOD PRESSURE 90 Jun 10, 2019 [id number] Feb 25, 2019 MONIKA HAMMER [facility] [place] AMLODIPINE BESYLATE 10MG TAB TAKE ONE TA BLET BY MOUTH EVERY MORNING FOR HEART/BLOOD PRESSURE 90 Apr 12, 2020 [id number] Feb 10, 2020 SILVINA CHAMBERS [facility] ASPIRIN 81MG TAB,CHEWABLE Non-VA CHEW ONE TABLET BY MOUTH ONCE A DAY Non-VA Documented by: MEGAN HAWK nted at: [facility] DIV ATORVASTATIN CA 20MG TAB Active TAKE ONE TABLET BY MOUTH ONCE A DAY FOR CHOLESTEROL. REPORT ANY UNEXPLAINED MUSCLE PAIN OR WEAKNESS TO YOUR DOCTOR. 90 Jan 02, 2021 [id number] March 24, 2020 [facility] ATORVASTATIN CA 40MG TAB Discontinued TAKE ONE-HALF T ABLET BY MOUTH AT BEDTIME FOR CHOLESTEROL. REPORT ANY UNEXPLAINED MUSCLE PAIN OR WEAKNESS TO YOUR DOCTOR. 45 Jul 15, 2020 [id number] Oct 14, 2019 THOM CHAMBERS [facility] [place] ATORVASTATIN CA 40MG TAB Discontinued TAKE ONE-HALF T ABLET BY MOUTH AT BEDTIME FOR CHOLESTEROL. REPORT ANY UNEXPLAINED MUSCLE PAIN OR WEAKNESS TO YOUR DOCTOR. 45 Oct 12, 2019 [id number] Jul 16, 2019 THOM CHAMBERS [facility] [place] CALCIUM CARBONATE 500MG TAB,CHEWABLE Non-VA CHEW ONE TABLET BY MOUTH PRN Non-VA Documented by: THOM CHAMBERS nted at: [facility] CHLORTHALIDONE 25MG TAB Active TAKE ONE TABLET BY MOUTH ONCE A DAY 90 Jul 01, 2020 [id number] March 19, 2020 MONIKA HAMMER [facility] [place] CHLORTHALIDONE 25MG TAB Discontinued TAKE ONE TABLET BY MOUTH ONCE A DAY 90 Jun 16, 2019 [id number] Apr 12, 2019 MONIKA HAMMER [facility] [place] CHOLECALCIFEROL 1000UNT TAB Non-VA TAKE ONE TABLET BY MOUTH EVERY OTHER DAY Non-VA Docume nted by: MEGAN HAWK Docume nted at: [facility] [place] [facility] CYANOCOBALAMIN 1000MCG/ML INJ Active INJECT 100 0 MCG (1 ML) INTRAMUSCULARLY EVERY MONTH FOR B12 SUPPLEMENTATION. 3 Nov 03, 2020 [id number] Apr 23, 2020 THOM CHAMBERS [facility] [place] CYANOCOBALAMIN 1000MCG/ML INJ Discontinued INJECT 100 0 MCG (1 ML) INTRAMUSCULARLY EVERY MONTH FOR B12 SUPPLEMENTATION. 3 Nov 17 0 [id number] Aug 07, 2019 THOM CHAMBERS [facility] [place] DIPHENHYDRAMINE HCL 25MG CAP Non-VA TAKE 1 CAPSULE BY MOUTH PRN Non-VA Documented by: THOM CHAMBERS Docsammi nted at: [facility] DOCUSATE NA 100MG CAP No n-VA TAKE 2 CAPSULES BY MOUTH ONCE A DAY Non-VA Documented by: THOM CHAMBERS Docume nted at: [facility] FISH OIL 1000MG (500MG DHA/EPA) CAP,ORAL Non-VA TAKE 1 CAPSULE BY MOUTH ONCE A DAY Non-VA Documented by: MEGAN HAWK Docume nted at: [facility] GABAPENTIN 100MG CAP Active TAKE 1 CAPSULE BY M OUTH EVERY MORNING AND TAKE 1 CAPSULE BY MOUTH AT NOON AND TAKE 2 CAPSULES BY MOUTH AT BEDTIME 360 Jul 06, 2020 [id number] March 31, 2020 ELEUTERIO LIVINGSTON [facility] [place] GLUCAGON 1MG/GABRIELLA INJ,EMERGENCY KIT INJEC T 1MG SUBCUTANEOUSLY NEEDED FOR SEVERE HYPOGLYCEMIA 1 Nov 30, 2019 [id number] Nov 03, 2019 [facility] CHAMBERS [facility] [...] AFTER OPENING. PLUS CORRECTION Mar 01, 2021 [id number] [facility] [place] [facility] INSULIN,ASPART,HUMAN 100U/ML,NOVOLOG,FLEXPEN,3ML Discontinue d INJECT 20 UNITS SUBCUTANEOUSLY BEFORE BREAKFAST AND INJECT 20 UNITS BEFORE LUNCH AND INJECT 24 UNITS BEFORE SUPPER AND INJECT 24 UNITS SNACK FOR BLOOD SUGAR CONTROL. ADMINISTER 10 MINUTES BEFORE FOOD DIRECTED. REFRIGERATE UN-OPENED PENS. DISCARD CARTRIDGE 28 DAYS AFTER OPENING. PLUS CORRECTION 30 Jan 26, 2021 [id number] Jan 28, 2020 [facility] [place] [facility] INSULIN,ASPART,HUMAN 100U/ML,NOVOLOG,FLEXPEN,3ML Discontinue d INJECT 20 UNITS SUBCUTANEOUSLY BEFORE MEALS FOR BLOOD SUGAR CONTROL. ADMINISTER 10 MINUTES BEFORE FOOD DIRECTED. REFRIGERATE UN-OPENED PENS. DISCARD CARTRIDGE 28 DAYS AFTER OPENING. PLUS CORRECTION FOR BLOOD SUGAR CONTROL. ADMINISTER 10 MINUTES BEFORE FOOD DIRECTED. REFRIGERATE UN-OPENED PENS. DISCARD CARTRIDGE 28 DAYS AFTER OPENING. PLUS CORRECTION 30 Nov 16, 2020 [id number] Nov 16 [facility] [place] INSULIN,ASPART,HUMAN 100U/ML,NOVOLOG,FLEXPEN,3ML Discontinue d INJECT 15 UNITS SUBCUTANEOUSLY EVERY MORNING BEFORE MEAL AND INJECT 15 UNITS WITH LUNCH AND INJECT 15 UNITS WITH SUPPER AND INJECT 20 UNITS WITH SNACK FOR BLOOD SUGAR CONTROL. ADMINISTER 10 MINUTES BEFORE FOOD DIRECTED. REFRIGERATE UN-OPENED PENS. DISCARD CARTRIDGE 28 DAYS AFTER OPENING. Dec 22, 2019 5 [id number] Oct 12, 2019 [facility] [place] INSULIN,GLARGINE,HUMAN 100 UNIT/ML INJ,SOLOSTAR,3ML Active INJECT 50 UNITS SUBCUTANEOUSLY EVERY MORNING FOR BLOOD SUGAR CONTROL. ADMINISTER AT SAME TIME EACH DAY DIRECTED. DISCARD ANY OPEN CARTRIDGE AFTER 28 DAYS. Sep 23, 2020 [id number] Jan 28, 2020 [facility] [place] [facility] INSULIN,GLARGINE,HUMAN 100 UNIT/ML INJ,SOLOSTAR,3ML Disconti nued INJECT 45 UNITS SUBCUTANEOUSLY EVERY MORNING FOR BLOOD SUGAR CONTROL. ADMINISTER AT SAME TIME EACH DAY DIRECTED. DISCARD ANY OPEN CARTRIDGE AFTER 28 DAYS. Oct 23, 2019 [id number] Aug 30, 2019 [facility] [place] [facility] LACTOBACILLUS ACIDOPHILUS TAB,CHEWABLE Non-VA CHEW ONE TABLET BY MOUTH ONCE A DAY Non-VA Documented by: MEGAN HAWK nted at: [facility] [place] LANCET,SOFTCLIX Active USE LANCET 5 TIME S A DAY FOR TESTING BLOOD GLUCOSE DIRECTED 500 Dec 28, 2020 [id number] March 19, 2020 BALTRUSAITIS,ELEUTERIO Larry [facility] [place] LANCET,SOFTCLIX Discontinued USE LANCET 5 TIME S A DAY FOR TESTING BLOOD GLUCOSE DIRECTED 500 Jan 11, 2020 [id number] Sep 29, 2019 BALTRUSA ITIS,ELEUTERIO Larry [facility] [place] MAGNESIUM OXIDE 400MG TAB Non-VA TAKE ONE TABLET BY MOUTH ONCE A DAY Non-VA Documented by: MEGAN HAWK nted at: [facility] [place] METOPROLOL SUCCINATE 200MG TAB,SA TAKE O NE-HALF TABLET BY MOUTH EVERY EVENING FOR HEART/BLOOD PRESSURE. SWALLOW WHOLE, DO NOT CRUSH OR CHEW (TABLETS MAY BE CUT IN HALF). 45 March 18, 2020 [id number] Dec 28, 2019 STANISLAV HAMMER [facility] NEEDLE 22G 1.5IN USE NEEDLE FOR EVERY MONTH 1 Nov 12, 2019 [id number] Feb 07, 2019 ADELAIDA CLIFFORD [facility] NEED[facility],PEN 31G,5MM Discontinued USE NEEDLE SUBCUTANE OUSLY 5 TIMES A DAY - THIS IS A SINGLE USE NEEDLE AND SHOULD BE DISCARDED AFTER USE 500 Dec 21, 2019 [id number] Sep 28, 2019 ELEUTERIO LIVINGSTON [facility] [place] POTASSIUM CHLORIDE 10MEQ TAB,SA Active TAKE TWO TABLETS BY MOUTH TWO TIMES A DAY FOR POTASSIUM SUPPLEMENTATIONTAKE WITH FOOD 360 Dec 12, 2020 [id number] Mar 02, 2020 YANELY CONDE [facility] [place] 15 POTASSIUM CHLORIDE 10MEQ TAB,SA Discontinued TAKE ONE TABLET BY MOUTH THREE TIMES A DAY WITH MEALS FOR POTASSIUM SUPPLEMENTATIONTAKE WITH FOOD 180 March 16, 2020 [id number] Nov 29, 2019 BALTRUSAELEUTERIO QUIGLEY [facility] [place] POTASSIUM CHLORIDE 10MEQ TAB,SA Discontinued TAKE ONE TABLET BY MOUTH THREE TIMES A DAY WITH MEALS FOR POTASSIUM SUPPLEMENTATIONTAKE WITH FOOD 180 May 26, 2019 [id number] Jan 24, 2019 YANELY CONDE [facility] [place] SYRINGE 2.5-3ML/NDL 25G 1IN Active USE 1 SYRINGE EVERY MONTH 3 Feb 21, 2021 [id number] March 20, 2020 [facility] SYRINGE 2.5-3ML/NDL 25G 1IN Discontinued USE 1 SYRINGE EVERY Thu 3 March 18, 2020 [id number] Dec 21, 2019 [facility] INIC TESTOSTERONE CYPIONATE 200MG/ML INJ,1ML (IN OIL) Active INJECT 200 MG (1 ML) INTRAMUSCULARLY EVERY MONTH FOR HORMONE REPLACEMENT 1 May 18, 2020 [id number] April 06, 2020 ADELAIDA CLIFFORD [facility] [place] TESTOSTERONE CYPIONATE 200MG/ML INJ,1ML (IN OIL) Discontinue d INJECT 200 MG (1 ML) INTRAMUSCULARLY EVERY MONTH FOR HORMONE REPLACEMENT 1 March 25, 2020 [id number] Oct 25, 2019 ADELAIDA CLIFFORD [facility] [place] TESTOSTERONE CYPIONATE 200MG/ML INJ,1ML (IN OIL) Discontinue d INJECT 200 MG (1 ML) INTRAMUSCULARLY EVERY MONTH FOR HORMONE REPLACEMENT 1 Nov 06, 2019 [id number] Sep 25, 2019 ADELAIDA CLIFFORD [facility] [place] TESTOSTERONE CYPIONATE 200MG/ML INJ,1ML (IN OIL) Discontinue d INJECT 200 MG (1 ML) INTRAMUSCULARLY EVERY MONTH FOR HORMONE REPLACEMENT 1 May 14, 2019 [id number] Apr 10, 2019 ADELAIDA CLIFFORD [facility] [place] TRAMADOL HCL 50MG TAB Active TAKE 1 TO 2 TABLET S BY MOUTH EVERY 6 HOURS NEEDED FOR PAIN 180 Jul 21, 2020 [id number] March 30, 2020 [facility] TRAMADOL HCL 50MG TAB Discontinued TAKE 1 TO 2 TABLET S BY MOUTH EVERY 6 HOURS NEEDED FOR PAIN 180 Jun 06, 2020 [id number] Jan 11, 2020 [facility] TRAM[facility]OL HCL 50MG TAB Discontinued TAKE 1 TO 2 TABLET S BY MOUTH EVERY 6 HOURS NEEDED FOR PAIN 180 Jun 06, 2020 [id number] Dec 06, 2019 [facility] TRAMADOL HCL 50MG TAB Discontinued TAKE 1 TO 2 TABLET S BY MOUTH EVERY 6 HOURS NEEDED FOR PAIN 180 Dec 14, 2019 [id number] Nov 15, 2019 ABRAMDANTE Laron MESSER [facility] [place] TRAMADOL HCL 50MG TAB Discontinued TAKE 1 TO 2 TABLET S BY MOUTH EVERY 6 HOURS NEEDED FOR PAIN 180 Jul 06, 2019 [id number] May 26, 2019 NELLA GROVE [facility] [place] TRIAMCINOLONE ACETONIDE 0.5% CREAM,TOP Active A PPLY SPARINGLY TO AFFECTED AREA ONCE A DAY NEEDED FOR RASH 45 Jul 15, 2020 [id number] April 01 0 REYESTHOM [facility] [place] TRIAMCINOLONE ACETONIDE 0.5% CREAM,TOP Discontinued A PPLY SPARINGLY TO AFFECTED AREA ONCE A DAY NEEDED FOR RASH 45 Oct 12, 2019 [id number] Jul REYESTHOM [facility] [place] [...] Source Basal cell carcinoma of scalp Active [id number] THOM CHAMBERS [facility] [place] Chronic back pain Active [id number] TERRIE CHAMBERS [facility] [place] Chronic kidney disease stage 3 Active 500790045 THOM CHAMBERS [facility] [place] Constipation Active 23739497 [facility] CHAMBERS [facility] [place] Diabetes mellitus Active 29638518 THOM CHAMBERS [facility] [place] Diabetic neuropathy Active 463678329 Neha CHAMBERS [facility] [place] Essential hypertension Active 32534998 THOM CHAMBERS [facility] [place] Hyperlipidemia Active 26168448 THOM CHAMBERS [facility] [place] Hypogonadism Active 24547088 THOM CHAMBERS [facility] [place] Sleep apnea Active 67423727 THOM CHAMBERS [facility] [place] Radiology Reports: +/- 30 days of the encounter No Data Provided for This Section Pathology Reports: +/- 30 days of the encounter No Data Provided for This Section Encounter Notes: All associated encounter notes This section contains the clinical notes associated to the Encounter. Date/Time Encounter Note(s) Provider Source Jul 06, 2019 07:31 AM CARE MANAGEMENT NOTE: LOCAL TITLE: EK-PACT CARE MANAGEMENT STANDARD TITLE: CARE MANAGEMENT NOTE DATE OF NOTE: JUL 06, 2019@07:31 ENTRY DATE: JUL 06, 2019@07:31:12 AUTHOR: DARIO DUNCAN COSIGNER: URGENCY: STATUS: COMPLETED EK-PACT CARE MANAGEMENT Has ADDENDA Request orders received from [facility] Dr Elton MD to be drawn Jul 07 at [facility] CBC/Diff Hepatic function Panel Magnesium PTH Renal Function Panel Protein/Creatine Ratio--UA Uric Acid Vit D,25 hydroxy UA Pt has been notified of lab draw on Jul 07 /noa/ DARIO DUNCAN LPN Signed: 07/06/2019 07:36 Receipt Acknowledged By: 07/06/2019 09:56 /noa/ REMY RODRIGUEZ medical transcription radiology 07/06/2019 11:17 /noa/ THOM INGRAM 07/06/2019 ADDENDUM STATUS: COMPLETED plan/order: 1. please schedule 07/07/19 non-fast lab at : CBC, CMP, Magnesium, PTH, urine Protein/Creatine Ratio, Uric Acid Vit D,25 hydroxy, UA 2. Please note requesting provider name and fax # info on 07/07/19 lab list /noa/ THOM INGRAM Signed: 07/06/2019 11:19 Receipt Acknowledged By: 07/06/2019 11:26 /noa/ DARIO MICHEL LPN 07/06/2019 14:29 /noa/ REMY RODRIGUEZ medical transcription radiology 07/06/2019 ADDENDUM STATUS: COMPLETED Fax Results to Dr Conde at [phone] /noa/ DARIO DUNCAN LPN Signed: 07/06/2019 11:27 Receipt Acknowledged By: 07/07/2019 09:29 /es/ JEANETTE Loyloa [employer] 07/07/2019 ADDENDUM STATUS: COMPLETED [place] ALSO wants copy of labs to DR GROVE IN [place], [place] /noa/ JEANETTE C [employer] Signed: 07/08/2019 12:08 DARIO DUNCAN [facility]
--- OUTSIDE RECORDS SUMMARY | 2020-04-18 10:11 | XMS REPORT | Encounter Summary ---
Author Author Department [facility] SIMI palacio Organization Department of [facility] Address [address] [place] [phone] Phone Unavailable Care Team Providers Care Graduate Internship Name Role Phone REYESTHOM PCP Unavailable Insurance Providers: All historical and [...] FREEDOM MED REP (R) MEDICARE ADVANTAGE MCR ([facility]) Nov 09, 2017 [id number] [phone] SIMI COVARRUBIAS PATIENT ADVANTRA [employer] MED REP (WNR) MEDICARE ADVANTAGE MCR ([facility]) Nov 09, 2017 [id number] [phone] SIMI COVARRUBIAS PATIENT [facility]NA [facility] ([facility]) MEDICARE ADVANTAGE MCR ([facility]) Nov 09, 2019 [id number] SIMI COVARRUBIAS PATIENT Selected Encounter This section includes the information on record at [place] for the Encounter. Date/Time Encounter Type Encounter Description Reason Provider Source Jul 01, 2019 10:45 AM Outpatient Encounter TELEPHONE PRIMARY CAR E ICD-10-CM Z71.89 Other specified counseling with Provider Comments: Counseling,Oth Specified ALLA NARAYANAN [facility] IHE Encounter Template Text not used by [facility] Assessments - Encounter Diagnoses This section includes the primary and secondary diag noses documented for the Encounter. Date/Time Primary/Secondary Diagnosis Diagnosis Name Provider Source Jul 01, 2019 10:45 AM PRIMARY Other specified counseling ALLA NARAYANAN [facility] Plan of Treatment: Future Appointments (+ [...] 07, 2019 11:45 AM [facility] Jul 14, 2019 11:00 AM [facility] - [facility]ONE [facility] [place] [facility] Jul 28, 2019 10:00 AM [facility] Aug 04, 2019 11:00 AM [facility] - N[facility] [place] [facility] Aug 16, 2019 01:00 PM AMB[facility]ATORY - NONE [facility] [place] [facility] [facility] Aug 25, 2019 10:00 AM AMBULATORY - NONE [facility] Sep 15, 2019 12:00 PM [facility] Sep 22, 2019 10:00 AM [facility] Sep 23, 2019 11:00 AM [facility]ORY - NONE [facility] [place] [facility] [facility] Oct 17, 2019 03:00 PM AM[facility]ORY - NONE [facility] Oct 20, 2019 10:00 AM AMBULATORY - NONE [facility] Nov 10, 2019 12:00 PM AMBULATORY - MEDICINE [facility] Nov 16, 2019 02:00 PM [facility] [place] [facility] Nov 16, 2019 03:00 PM AM[facility] - NONE [facility] [place] [facility] Nov 17, 2019 10:00 AM AMBULATORY - NONE [facility] Dec 01, 2019 11:30 AM AMBULATORY - MEDICINE [facility] Dec 14, 2019 03:00 PM [facility] - NONE [facility] [place] [facility] [facility] Dec 15, 2019 01:00 PM [facility] NONE [facility] Surgical Procedures: All associated [...] Range Comment Jul 07, 2019 09:11 AM [facility] PTH INTACT Specimen Type: PLASMA No comment entered. PTH INTACT 45.8 pg/mL 8.7-77.7 Jul 07, 2019 09:11 AM [facility] CBC & DIFF Specimen Type: BLOOD [...] 0.8 % Jul 07, 2019 09:11 AM [facility] URINALYSIS Specimen Type: URINE No comment [...] Trace /HPF Jul 07, 2019 09:11 AM [facility] MAGNESIUM (mg/dL) Specimen Type: PLASMA No comment entered. MAGNESIUM (mg/dL) 1.8 mg/dl 1.6-2.6 Jul 07, 2019 09:11 AM [facility] URIC ACID (mg/dL) Specimen Type: PLASMA No comment entered. URIC ACID (mg/dL) 6.7 mg/dL 3.5-7.2 Jul 07, 2019 09:11 AM [facility] VITAMIN D (25-OH) Specimen Type: SERUM No comment entered. VITAMIN D (25-OH) 42.9 ng/mL 30.0-96.0 Jul 07, 2019 09:11 AM [facility] MICROALBUMIN (CO,EK) Specimen Type: URINE No comment entered. *MICROALBUMIN(CONC) 46.6 mg/dL - *MICROALBUMIN(SPOT) 158 mcg/mg cr 0-29 *CREATININE mg/dL 295.0 mg/dl Not Avail. Jul 07, 2019 09:11 AM [facility] HEPATIC FUNCTION PANE L Specimen Type: PLASMA No comment entered. PROTEIN,TOTAL 6.1 g/dL 6.0-8.6 ALBUMIN 3.9 g/dl 3.4-5.0 TOTAL BILIRUBIN 0.4 mg/dL 0.2-1.2 DIRECT BILIRUBIN 0.2 mg/dL 0-0.5 ASPARTATE TRANSAMINASE 29 U/L 5-34 ALANINE AMINOTRANSFERASE 24 U/L 8-40 ALKALINE PHOSPHATASE 91 U/L 40-150 Jul 07, 2019 09:11 AM [facility] RENAL FUNCTION PANEL Specimen Type: PLASMA [...] 58.2 Jul 07, 2019 09:11 AM [facility] COMPREHENSIVE NE TABOLIC PANEL Specimen Type: PLASMA No comment [...] Comment Facility Nov 03, 2018 07:59 AM CO-TOBACCO QUIT 15 YRS OR MORE [facility] Tobacco Use History This section includes a history of the smoking, or tobacco -related health factors, that were collected on or before the date of the Encoun ter. The data comes from the [place] facility where the Encounter took place. Date/Time Smoking Status/Tobacco Use Comment [facility] it Nov 03, 2018 07:59 AM CO-TOBACCO QUIT 15 YRS OR MORE [facility] Oct 23, 2017 07:35 AM TOBACCO LIFETIME NON-USER [facility] Advance Directives: All historical and current [...] adverse reactions to drug (disorder) Renal impairment [facility] METFORMIN Dec 01, 2017 Propensity to adverse reactions to drug (disorder) Renal impairment [facility] 15 Medications: VA dispensed (-15 months) and Non-VA Documented (Obtained Outside V A) Section Date Range: 1) prescriptions processed by a VA pharmacy in the last 15 m [facility], and 2) all medications recorded in [...] other providers that was filled outside the [place]. Or, it may be an over the [...] TIMES A DAY 400 Sep 12, 2020 [id number] Feb 29, 2020 ELEUTERIO LIVINGSTON [facility] ACCU-CHEK ROSINA PLUS (GLUCOSE) TEST STRIP Discontinued USE 1 STRIP FOR TESTING FOUR TIMES A DAY 400 Sep 15, 2019 [id number] Jun 13, 2019 BALTRUSAIT ISELEUTERIO [facility] ALCOHOL PREP PAD Discontinued USE 1 PAD ON SKIN FOUR TIMES A DAY 40 0 Apr 25, 2020 [id number] Nov 29, 2019 BALTRUSAELEUTERIO QUIGLEY TIMBO Charly [facility] [place] [facility] ALCOHOL PREP PAD Discontinued USE 1 PAD ON SKIN FOUR TIMES A DAY 40 0 Sep 15, 2019 [id number] Apr 18, 2019 BALTRUSAELEUTERIO QUIGLEY [facility] ALLOPURINOL 100MG TAB Active TAKE ONE TABLET BY MOUTH ONCE A DAY FOR GOUT. TAKE WITH PLENTY OF WATER 90 Sep 23, 2020 [id number] Mar 05, 2020 SILVINA CHAMBERS [facility] ALLOPURINOL 100MG TAB Discontinued TAKE ONE TABLET BY MOUTH ONCE A DAY FOR GOUT. TAKE WITH PLENTY OF WATER 90 Dec 30, 2019 [id number] Sep 17, 2019 THOM SHARPE [facility] ALOGLIPTIN 12.5MG TAB Active TAKE ONE TABLET BY MOUTH O NCE A DAY FOR DIABETES 90 Sep 12, 2020 [id number] Mar 04, 2020 BALANGELIKAUSAELEUTERIO QUIGLEY [facility] [place] [facility] ALOGLIPTIN 12.5MG TAB Discontinued TAKE ONE TABLET BY MOUTH ONCE A DAY FOR DIABETES 90 Dec 22, 2019 [id number] Jun 18, 2019 BALTRUSAELEUTERIO QUIGLEY [facility] AMLODIPINE BESYLATE 10MG TAB Discontinued TAKE ONE TA BLET BY MOUTH EVERY MORNING FOR HEART/BLOOD PRESSURE 90 Jun 10, 2019 [id number] Feb 25, 2019 MONIKA HAMMER [facility] AMLODIPINE BESYLATE 10MG TAB TAKE ONE TA BLET BY MOUTH EVERY MORNING FOR HEART/BLOOD PRESSURE 90 Apr 12, 2020 [id number] Feb 10, 2020 SILVINA CHAMBERS [facility] ASPIRIN 81MG TAB,CHEWABLE Non-VA CHEW ONE TABLET BY MOUTH ONCE A DAY Non-VA Documented by: MEGAN HAWK nted at: [facility] ATORVASTATIN CA 20MG TAB Active TAKE ONE TABLET BY MOUTH ONCE A DAY FOR CHOLESTEROL. REPORT ANY UNEXPLAINED MUSCLE PAIN OR WEAKNESS TO YOUR DOCTOR. 90 Jan 02, 2021 [id number] March 24, 2020 NELLA [facility] ATORVASTATIN CA 40MG TAB Discontinued TAKE ONE-HALF T ABLET BY MOUTH AT BEDTIME FOR CHOLESTEROL. REPORT ANY UNEXPLAINED MUSCLE PAIN OR WEAKNESS TO YOUR DOCTOR. 45 Jul 15, 2020 [id number] Oct 14, 2019 REYESTHOM [facility] ATORVASTATIN CA 40MG TAB Discontinued TAKE ONE-HALF T ABLET BY MOUTH AT BEDTIME FOR CHOLESTEROL. REPORT ANY UNEXPLAINED MUSCLE PAIN OR WEAKNESS TO YOUR DOCTOR. 45 Oct 12, 2019 [id number] Jul 16, 2019 REYESTHOM [facility] CALCIUM CARBONATE 500MG TAB,CHEWABLE Non-VA CHEW ONE TABLET BY MOUTH PRN Non-VA Documented by: THOM CHAMBERS nted at: [facility] CHLORTHALIDONE 25MG TAB Active TAKE ONE TABLET BY MOUTH ONCE A DAY 90 Jul 01, 2020 [id number] March 19, 2020 MONIKA HAMMER [facility] CHLORTHALIDONE 25MG TAB Discontinued TAKE ONE TABLET BY MOUTH ONCE A DAY 90 Jun 16, 2019 [id number] Apr 12, 2019 MONIKA HAMMER [facility] CHOLECALCIFEROL 1000UNT TAB Non-VA TAKE ONE TABLET BY MOUTH EVERY OTHER DAY Non-VA Docume nted by: MEGAN HAWK Docume nted at: [facility] CYANOCOBALAMIN 1000MCG/ML INJ Active INJECT 100 0 MCG (1 ML) INTRAMUSCULARLY EVERY MONTH FOR B12 SUPPLEMENTATION. 3 Nov 03, 2020 [id number] Apr 23, [address] [facility] [place] [facility] CYANOCOBALAMIN 1000MCG/ML INJ Discontinued INJECT 100 0 MCG (1 ML) INTRAMUSCULARLY EVERY MONTH FOR B12 SUPPLEMENTATION. 3 Nov 17 0 [id number] Aug 07, 2019 THOM CHAMBERS [facility] DIPHENHYDRAMINE HCL 25MG CAP Non-VA TAKE 1 CAPSULE BY MOUTH PRN Non-VA Documented by: THOM CHAMBERS nted at: [facility] DOCUSATE NA 100MG CAP No n-VA TAKE 2 CAPSULES BY MOUTH ONCE A DAY Non-VA Documented by: THOM CHAMBERS nted at: [facility] FISH OIL 1000MG (500MG DHA/EPA) CAP,ORAL Non-VA TAKE 1 CAPSULE BY MOUTH ONCE A DAY Non-VA Documented by: MEGAN HAWK nted at: [facility] GABAPENTIN 100MG CAP Active TAKE 1 CAPSULE BY M OUTH EVERY MORNING AND TAKE 1 CAPSULE BY MOUTH AT NOON AND TAKE 2 CAPSULES BY MOUTH AT BEDTIME 360 Jul 06, 2020 [id number] March 31, 2020 ELEUTERIO LIVINGSTON [facility] [place] [facility] GLUCAGON 1MG/GABRIELLA INJ,EMERGENCY KIT INJEC T 1MG SUBCUTANEOUSLY NEEDED FOR SEVERE HYPOGLYCEMIA 1 Nov 30, 2019 [id number] Nov 03, 2019 THOM CHAMBERS [facility] INSULIN,ASPART,HUMAN 100U/ML,NOVOLOG,FLEXPEN,3ML Active: On Hold INJECT 20 UNITS SUBCUTANEOUSLY BEFORE BREAKFAST AND INJECT 20 UNITS BEFORE LUNCH AND INJECT 26 UNITS BEFORE SUPPER AND INJECT 24 UNITS SNACK FOR BLOOD SUGAR CONTROL. ADMINISTER 10 MINUTES BEFORE FOOD DIRECTED. REFRIGERATE UN-OPENED PENS. DISCARD CARTRIDGE 28 DAYS AFTER OPENING. PLUS CORRECTION Mar 01, 2021 [id number] ELEUTERIO LIVINGSTON [facility] INSULIN,ASPART,HUMAN 100U/ML,NOVOLOG,FLEXPEN,3ML Discontinue d INJECT 20 UNITS SUBCUTANEOUSLY BEFORE BREAKFAST AND INJECT 20 UNITS BEFORE LUNCH AND INJECT 24 UNITS BEFORE SUPPER AND INJECT 24 UNITS SNACK FOR BLOOD SUGAR CONTROL. ADMINISTER 10 MINUTES BEFORE FOOD DIRECTED. REFRIGERATE UN-OPENED PENS. DISCARD CARTRIDGE 28 DAYS AFTER OPENING. PLUS CORRECTION 30 Jan 26, 2021 [id number] Jan 28, 2020 ELEUTERIO LIVINGSTON [facility] INSULIN,ASPART,HUMAN 100U/ML,NOVOLOG,FLEXPEN,3ML Discontinue d INJECT 20 UNITS SUBCUTANEOUSLY BEFORE MEALS FOR BLOOD SUGAR CONTROL. ADMINISTER 10 MINUTES BEFORE FOOD DIRECTED. REFRIGERATE UN-OPENED PENS. DISCARD CARTRIDGE 28 DAYS AFTER OPENING. PLUS CORRECTION FOR BLOOD SUGAR CONTROL. ADMINISTER 10 MINUTES BEFORE FOOD DIRECTED. REFRIGERATE UN-OPENED PENS. DISCARD CARTRIDGE 28 DAYS AFTER OPENING. PLUS CORRECTION Nov 16, 2020 [id number] Nov 16 20 ELEUTERIO LIVINGSTON [facility] INSULIN,ASPART,HUMAN 100U/ML,NOVOLOG,FLEXPEN,3ML Discontinue d INJECT 15 UNITS SUBCUTANEOUSLY EVERY MORNING BEFORE MEAL AND INJECT 15 UNITS WITH LUNCH AND INJECT 15 UNITS WITH SUPPER AND INJECT 20 UNITS WITH SNACK FOR BLOOD SUGAR CONTROL. ADMINISTER 10 MINUTES BEFORE FOOD DIRECTED. REFRIGERATE UN-OPENED PENS. DISCARD CARTRIDGE 28 DAYS AFTER OPENING. Dec 22, 2019 5 [id number] Oct 12, 2019 ELEUTERIO LIVINGSTON [facility] INSULIN,GLARGINE,HUMAN 100 UNIT/ML INJ,SOLOSTAR,3ML Active INJECT 50 UNITS SUBCUTANEOUSLY EVERY MORNING FOR BLOOD SUGAR CONTROL. ADMINISTER AT SAME TIME EACH DAY DIRECTED. DISCARD ANY OPEN CARTRIDGE AFTER 28 DAYS. Sep 23, 2020 [id number] Jan 28, 2020 ELEUTERIO LIVINGSTON [facility] INSULIN,GLARGINE,HUMAN 100 UNIT/ML INJ,SOLOSTAR,3ML Disconti nued INJECT 45 UNITS SUBCUTANEOUSLY EVERY MORNING FOR BLOOD SUGAR CONTROL. ADMINISTER AT SAME TIME EACH DAY DIRECTED. DISCARD ANY OPEN CARTRIDGE AFTER 28 DAYS. Oct 23, 2019 [id number] Aug 30, 2019 ELEUTERIO LIVINGSTON [facility] LACTOBACILLUS ACIDOPHILUS TAB,CHEWABLE Non-VA CHEW ONE TABLET BY MOUTH ONCE A DAY Non-VA Documented by: MEGAN HAWK [facility] LANCET,SOFTCLIX Active USE LANCET 5 TIME S A DAY FOR TESTING BLOOD GLUCOSE DIRECTED 500 Dec 28, 2020 [id number] March 19, 2020 [facility] LANCET,SOFTCLIX Discontinued USE LANCET 5 TIME S A DAY FOR TESTING BLOOD GLUCOSE DIRECTED 500 Jan 11, 2020 [id number] Sep 29, 2019 [facility]IO [facility] MAGNESIUM OXIDE 400MG TAB Non-VA TAKE ONE TABLET BY MOUTH ONCE A DAY Non-VA Documented by: MEGAN HAWK nted at: [facility] METOPROLOL SUCCINATE 200MG TAB,SA TAKE O NE-HALF TABLET BY MOUTH EVERY EVENING FOR HEART/BLOOD PRESSURE. SWALLOW WHOLE, DO NOT CRUSH OR CHEW (TABLETS MAY BE CUT IN HALF). 45 March 18, 2020 [id number] Dec 28, 2019 STANISLAV HAMMER [facility] NEEDLE 22G 1.5IN USE NEEDLE FOR EVERY MONTH Nov 12, 2019 [id number] Feb 07, 2019 ADELAIDA CLIFFORD [facility] NEEDLE,PEN 31G,5MM Discontinued USE NEEDLE SUBCUTANE OUSLY 5 TIMES A DAY - THIS IS A SINGLE USE NEEDLE AND SHOULD BE DISCARDED AFTER USE 500 Dec 21, 2019 [id number] Sep 28, 2019 BALANGELIKAUSAELEUTERIO QUIGLEY [facility] POTASSIUM CHLORIDE 10MEQ TAB,SA Active TAKE TWO TABLETS BY MOUTH TWO TIMES A DAY FOR POTASSIUM SUPPLEMENTATIONTAKE WITH FOOD 360 Dec 12, 2020 [id number] Mar 02, 2020 [facility] POTASSIUM CHLORIDE 10MEQ TAB,SA Discontinued TAKE ONE TABLET BY MOUTH THREE TIMES A DAY WITH MEALS FOR POTASSIUM SUPPLEMENTATIONTAKE WITH FOOD 180 March 16, 2020 [id number] Nov 29, 2019 BALTRUSAITIS,ELEUTERIO Larry [facility] [place] [facility] POTASSIUM CHLORIDE 10MEQ TAB,SA Discontinued TAKE ONE TABLET BY MOUTH THREE TIMES A DAY WITH MEALS FOR POTASSIUM SUPPLEMENTATIONTAKE WITH FOOD 180 May 26, 2019 [id number] Jan 24, 2019 YANELY CONDE [facility] [place] [facility] SYRINGE 2.5-3ML/NDL 25G 1IN Active USE 1 SYRINGE EVERY MONTH 3 Feb 21, 2021 [id number] March 20, 2020 [facility] SYRINGE 2.5-3ML/NDL 25G 1IN Discontinued USE 1 SYRINGE EVERY Thu 3 March 18, 2020 [id number] Dec 21, 2019 [facility] TESTOSTERONE CYPIONATE 200MG/ML INJ,1ML (IN OIL) Active INJECT 200 MG (1 ML) INTRAMUSCULARLY EVERY MONTH FOR HORMONE REPLACEMENT 1 May 18, 2020 [id number] April 06, 2020 ADELAIDA CLIFFORD [facility] TESTOSTERONE CYPIONATE 200MG/ML INJ,1ML (IN OIL) Discontinue d INJECT 200 MG (1 ML) INTRAMUSCULARLY EVERY MONTH FOR HORMONE REPLACEMENT March 25, 2020 [id number] Oct 25, 2019 ADELAIDA CLIFFORD [facility] TESTOSTERONE CYPIONATE 200MG/ML INJ,1ML (IN OIL) Discontinue d INJECT 200 MG (1 ML) INTRAMUSCULARLY EVERY MONTH FOR HORMONE REPLACEMENT Nov 06, 2019 [id number] Sep 25, 2019 ADELAIDA CLIFFORD [facility] TESTOSTERONE CYPIONATE 200MG/ML INJ,1ML (IN OIL) Discontinue d INJECT 200 MG (1 ML) INTRAMUSCULARLY EVERY MONTH FOR HORMONE REPLACEMENT 1 May 14, 2019 [id number] Apr 10, 2019 D[facility]INADELAIDA [facility] [place] [facility] TRAMADOL HCL 50MG TAB Active TAKE 1 TO 2 TABLET S BY MOUTH EVERY 6 HOURS NEEDED FOR PAIN 180 Jul 21, 2020 [id number] March 30, 2020 [facility] TRAMADOL HCL 50MG TAB Discontinued TAKE 1 TO 2 TABLET S BY MOUTH EVERY 6 HOURS NEEDED FOR PAIN 180 Jun 06, 2020 [id number] Jan 11, 2020 [facility] TRAMADOL HCL 50MG TAB Discontinued TAKE 1 TO 2 TABLET S BY MOUTH EVERY 6 HOURS NEEDED FOR PAIN 180 Jun 06, 2020 [id number] Dec 06, 2019 [facility] TRAMADOL HCL 50MG TAB Discontinued TAKE 1 TO 2 TABLET S BY MOUTH EVERY 6 HOURS NEEDED FOR PAIN 180 Dec 14, 2019 [id number] Nov 15, 2019 DANTE VALVERDE [facility] TRAMADOL HCL 50MG TAB Discontinued TAKE 1 TO 2 TABLET S BY MOUTH EVERY 6 HOURS NEEDED FOR PAIN 180 Jul 06, 2019 [id number] May 26, 2019 [facility] [place] [facility] TRIAMCINOLONE ACETONIDE 0.5% CREAM,TOP Active A PPLY SPARINGLY TO AFFECTED AREA ONCE A DAY NEEDED FOR RASH 45 Jul 15, 2020 [id number] April 01 0 THOM CHAMBERS [facility] TRIAMCINOLONE ACETONIDE 0.5% CREAM,TOP Discontinued A PPLY SPARINGLY TO AFFECTED AREA ONCE A DAY NEEDED FOR RASH 45 Oct 12, 2019 [id number] Jul THOM CHAMBERS [facility] Problems (Conditions): All historical [...] Source Basal cell carcinoma of scalp Active [id number] THOM CHAMBERS [facility] [place] [facility] Chronic back pain Active [id number] TERRIE CHAMBERS [facility] [place] [facility] Chronic kidney disease stage 3 Active [id number] THOM CHAMBERS [facility] [place] [facility] Constipation Active [id number] THOM CHAMBERS [facility] [place] [facility] Diabetes mellitus Active [id number] THOM CHAMBERS [facility] [place] [facility] Diabetic neuropathy Active 240615614 Neha CHAMBERS [facility] [place] [facility] Essential hypertension Active 55562405 THOM CHAMBERS [facility] [place] [facility] Hyperlipidemia Active 17754219 THOM CHAMBERS [facility] [place] [facility] Hypogonadism Active 24403756 THOM CHAMBERS [facility] [place] [facility] Sleep apnea Active 66556063 THOM CHAMBERS [facility] [place] [facility] Radiology Reports: +/- 30 days of the encounter No Data Provided for This Section Pathology Reports: +/- 30 days of the encounter No Data Provided for This Section Encounter Notes: All associated encounter notes This section contains the clinical notes associated to the Encounter. Date/Time Encounter Note(s) Provider Source Jul 01, 2019 10:45 AM CARE MANAGEMENT NOTE: LOCAL TITLE: EK-PACT CARE MANAGEMENT STANDARD TITLE: CARE MANAGEMENT NOTE DATE OF NOTE: JUL 01, 2019@10:45 ENTRY DATE: JUL 01, 2019@10:45:21 AUTHOR: ALLA NARAYANAN EXP COSIGNER: URGENCY: STATUS: COMPLETED PC from vet stating his Cnoice consult for nephrology with Dr. Conde has and he is due for his next appt in July. They are requesting lab prior to this appt. He received auth # today for [facility] but has not received dates of service. He was informed that since this is still intransition and no auth yet visible in our side, nephrology consult will be placed by this card writer hand for provider to sign if agreeable. He can probably get lab at Dr. Grove's when dates of service received or at the [facility]. He states he would like to get labs at [facility]. Instructed to have the requesting provider fax over lab orders, appt will be made and he will be contacted. He v/u. Nephrology consult placed for provider to sign. Time: 12m /noa/ ALLA NARAYANAN RN Signed: 07/01/2019 11:06 Receipt Acknowledged By: 07/01/2019 12:31 /noa/ ALLA U[facility]
--- OUTSIDE RECORDS SUMMARY | 2020-04-18 10:11 | XMS REPORT | Encounter Summary ---
Author [facility] Address [address] [place] [id number] Phone Unavailable Care Team Providers Care Compressed Gases Tester Name Role Phone REYES THOM PCP Unavailable [...] MEDICARE ADVANTAGE MCR ([place]ANNER) Nov 09, 2017 [id number] [phone] SIMI COVARRUBIAS PATIENT ADVANTRA FREEDOM MED REP (WNR) MEDICARE ADVANTAGE MCR ([place]NER) Nov 09, 2017 [id number] [phone] SIMI COVARRUBIAS PATIENT AETNA MCR ([place]) MEDICARE ADVANTAGE MCR ([place]) Nov 09, 2019 [id number] SIIM COVARRUBIAS PATIENT Selected Encounter This section includes the information on record at [place] for the Encounter. Date/Time Encounter Type Encounter Description Reason Provider Source Jul 05, 2019 10:08 AM Outpatient Encounter COMMUNITY CARE CONSULT [facility] [place] IHE Encounter Template [...] 07, 2019 11:45 AM AMBULATORY - MEDICINE [facility] Jul 14, 2019 11:00 AM AM[facility]ATORY - NONE [facility] [place] [facility] Jul 28, 2019 [...] 15, 2019 12:00 PM AMBULATORY - MEDICINE [facility] Sep 22, 2019 10:00 AM AM[facility]ATORY - NONE [facility] Sep 23, 2019 11:00 AM [facility] [place] [facility] Oct 17, 2019 03:00 PM AM[facility]ATORY - NONE [facility] [place] [facility] Oct 20, 2019 10:00 AM AM[facility]ATORY - NONE [facility] Nov 10, 2019 12:00 PM AMBULATORY - MEDICINE [facility] Nov 16, 2019 02:00 PM [facility] [place] [facility] Nov 16, 2019 03:00 PM [facility] N[facility] [place] [facility] Nov 17, 2019 10:00 AM AM[facility]ATORY - NONE [facility] Dec 01, 2019 11:30 AM AMBULATORY - MEDICINE [facility] Dec 14, 2019 03:00 PM AM[facility]ULATORY - NONE [facility] [place] [facility] Dec 15, 2019 01:00 PM AMBULATORY - NONE [facility] Surgical Procedures: [...] Range Comment Jul 07, 2019 09:11 AM [facility] PTH INTACT Specimen Type: PLASMA No comment entered. PTH INTACT 45.8 pg/mL 8.7-77.7 Jul 07, 2019 09:11 AM [facility] CBC & DIFF Specimen Type: [...] 0.8 % Jul 07, 2019 09:11 AM [facility] URINALYSIS Specimen Type: URINE No [...] Trace /HPF Jul 07, 2019 09:11 AM [facility] MAGNESIUM (mg/dL) Specimen Type: PLASMA No comment entered. MAGNESIUM (mg/dL) 1.8 mg/dl 1.6-2.6 Jul 07, 2019 09:11 AM [facility] URIC ACID (mg/dL) Specimen Type: PLASMA No comment entered. URIC ACID (mg/dL) 6.7 mg/dL 3.5-7.2 Jul 07, 2019 09:11 AM [facility] VITAMIN D (25-OH) Specimen Type: SERUM No comment entered. VITAMIN D (25-OH) 42.9 ng/mL 30.0-96.0 Jul 07, 2019 09:11 AM [facility] MICROALBUMIN (CO,EK) Specimen Type: URINE No comment entered. *MICROALBUMIN(CONC) 46.6 mg/dL - *MICROALBUMIN(SPOT) 158 mcg/mg cr HH 0-29 *CREATININE mg/dL 295.0 mg/dl Not Avail. Jul 07, 2019 09:11 AM [facility] HEPATIC FUNCTION PANE L Specimen Type: PLASMA No comment entered. PROTEIN,TOTAL 6.1 g/dL 6.0-8.6 ALBUMIN 3.9 g/dl 3.4-5.0 TOTAL BILIRUBIN 0.4 mg/dL 0.2-1.2 DIRECT BILIRUBIN 0.2 mg/dL 0-0.5 ASPARTATE TRANSAMINASE 29 U/L 5-34 ALANINE AMINOTRANSFERASE 24 U/L 8-40 ALKALINE PHOSPHATASE 91 U/L 40-150 Jul 07, 2019 09:11 AM [facility] RENAL FUNCTION PANEL Specimen Type: [...] EGFR 58.2 Jul 07, 2019 09:11 AM [facility] [place] [facility] TABOLIC PANEL Specimen Type: PLASMA [...] reactions to drug (disorder) Renal impairment [facility] 15 METFORMIN Dec 01, 2017 Propensity to adverse reactions to drug (disorder) Renal impairment [facility] 15 Medications: VA dispensed (-15 months) and Non-VA Documented (Obtained Outside V A) Section Date Range: 1) prescriptions processed by a VA pharmacy in the last [address] [facility], and 2) all medications recorded [...] available).Discontinued = A prescription stopped by a [place] provider. It is no longer available to be filled. = A prescription which is too old to fill. This does not refer to the expiration date of the medication in the container. Non-VA = A medication that came from someplace other than a [place] pharmacy. This may be a prescription from [...] TIMES A DAY 400 Sep 12, 2020 [id number] Feb 29, 2020 [facility] ROSINA PLUS (GLUCOSE) TEST STRIP Discontinued USE 1 STRIP FOR TESTING FOUR TIMES A DAY 400 Sep 15, 2019 [id number] Jun 13, 2019 [facility] AL[facility]OL PRE[facility]AD Discontinued USE 1 PAD ON SKIN FOUR TIMES A DAY 40 0 Apr 25, 2020 [id number] Nov 29, 2019 BALELEUTERIO KONG [facility] [place] ALCOHOL PREP PAD Discontinued USE 1 PAD ON SKIN FOUR TIMES A DAY 40 0 Sep 15, 2019 [id number] Apr 18, 2019 YARAELK Laron [facility] ALLOPURINOL 100MG TAB Active TAKE ONE TABLET BY MOUTH ONCE A DAY FOR GOUT. TAKE WITH PLENTY OF WATER 90 Sep 23, 2020 [id number] Mar 05, 2020 SILVINA CHAMBERS [facility] [place] [facility] ALLOPURINOL 100MG TAB Discontinued TAKE ONE TABLET BY MOUTH ONCE A DAY FOR GOUT. TAKE WITH PLENTY OF WATER 90 Dec 30, 2019 [id number] Sep 17, 2019 THOM SHARPE [facility] [place] [facility] ALOGLIPTIN 12.5MG TAB Active TAKE ONE TABLET BY MOUTH O NCE A DAY FOR DIABETES 90 Sep 12, 2020 [id number] Mar 04, 2020 [facility] [place] [facility] ALOGLIPTIN 12.5MG TAB Discontinued TAKE ONE TABLET BY MOUTH ONCE A DAY FOR DIABETES 90 Dec 22, 2019 [id number] Jun 18, 2019 ELEUTERIO LIVINGSTON [facility] [place] [facility] AMLODIPINE BESYLATE 10MG TAB Discontinued TAKE ONE TA BLET BY MOUTH EVERY MORNING FOR HEART/BLOOD PRESSURE 90 Jun 10, 2019 [id number] Feb 25, 2019 MONIKA HAMMER [facility] [place] AMLODIPINE BESYLATE 10MG TAB TAKE ONE TA BLET BY MOUTH EVERY MORNING FOR HEART/BLOOD PRESSURE 90 Apr 12, 2020 [id number] Feb 10, 2020 SILVINA CHAMBERS [facility] ASPIRIN 81MG TAB,CHEWABLE Non-VA CHEW ONE TABLET BY MOUTH ONCE A DAY Non-VA Documented by: MEGAN HAWK nted at: [facility] [place] [facility] ATORVASTATIN CA 20MG TAB Active TAKE ONE TABLET BY MOUTH ONCE A DAY FOR CHOLESTEROL. REPORT ANY UNEXPLAINED MUSCLE PAIN OR WEAKNESS TO YOUR DOCTOR. 90 Jan 02, 2021 [id number] March 24, 2020 [facility] 15 ATORVASTATIN CA 40MG TAB Discontinued TAKE ONE-HALF T ABLET BY MOUTH AT BEDTIME FOR CHOLESTEROL. REPORT ANY UNEXPLAINED MUSCLE PAIN OR WEAKNESS TO YOUR DOCTOR. 45 Jul 15, 2020 [id number] Oct 14, 2019 [facility] [place] [facility] ATORVASTATIN CA 40MG TAB Discontinued TAKE ONE-HALF T ABLET BY MOUTH AT BEDTIME FOR CHOLESTEROL. REPORT ANY UNEXPLAINED MUSCLE PAIN OR WEAKNESS TO YOUR DOCTOR. 45 Oct 12, 2019 [id number] Jul 16, 2019 [facility] [place] [facility] CALCIUM CARBONATE 500MG TAB,CHEWABLE Non-VA CHEW ONE TABLET BY MOUTH PRN Non-VA Documented by: THOM CHAMBERS nted at: [facility] CHLORTHALIDONE 25MG TAB Active TAKE ONE TABLET BY MOUTH ONCE A DAY 90 Jul 01, 2020 [id number] March 19, 2020 MONIKA HAMMER [facility] [place] CHLORTHALIDONE 25MG TAB Discontinued TAKE ONE TABLET BY MOUTH ONCE A DAY 90 Jun 16, 2019 [id number] Apr 12, 2019 HIPPLER,MONIKA [facility] [place] [facility] CHOLECALCIFEROL 1000UNT TAB Non-VA TAKE ONE TABLET BY MOUTH EVERY OTHER DAY Non-VA Docume nted by: MEGAN HAWK Docume nted at: [facility] [place] [facility] CYANOCOBALAMIN 1000MCG/ML INJ Active INJECT 100 0 MCG (1 ML) INTRAMUSCULARLY EVERY MONTH FOR B12 SUPPLEMENTATION. 3 Nov 03, 2020 [id number] Apr 23, 2020 [facility] [place] [facility] CYANOCOBALAMIN 1000MCG/ML INJ Discontinued INJECT 100 0 MCG (1 ML) INTRAMUSCULARLY EVERY MONTH FOR B12 SUPPLEMENTATION. 3 Nov 17 0 [id number] Aug 07, 2019 [facility] [place] [facility] DIPHENHYDRAMINE HCL 25MG CAP Non-VA TAKE 1 CAPSULE BY MOUTH PRN Non-VA Documented by: THOM CHAMBERS Docsammi nted at: [facility] DOCUSATE NA 100MG CAP No n-VA TAKE 2 CAPSULES BY MOUTH ONCE A DAY Non-VA Documented by: THOM CHAMBERS nted at: [facility] FISH OIL 1000MG (500MG DHA/EPA) CAP,ORAL Non-VA TAKE 1 CAPSULE BY MOUTH ONCE A DAY Non-VA Documented by: MEGAN HAWK Docume nted at: [facility] [place] [facility] GABAPENTIN 100MG CAP Active TAKE 1 CAPSULE BY M OUTH EVERY MORNING AND TAKE 1 CAPSULE BY MOUTH AT NOON AND TAKE 2 CAPSULES BY MOUTH AT BEDTIME 360 Jul 06, 2020 [id number] March 31, 2020 ELEUTERIO LIVINGSTON [facility] [place] GLUCAGON 1MG/GABRIELLA INJ,EMERGENCY KIT INJEC T 1MG SUBCUTANEOUSLY NEEDED FOR SEVERE HYPOGLYCEMIA 1 Nov 30, 2019 [id number] Nov 03, 2019 THOM CHAMBERS [facility] [place] [facility] INSULIN,ASPART,HUMAN 100U/ML,NOVOLOG,FLEXPEN,3ML Active: On Hold INJECT 20 UNITS SUBCUTANEOUSLY BEFORE BREAKFAST AND INJECT 20 UNITS BEFORE LUNCH AND INJECT 26 UNITS BEFORE SUPPER AND INJECT 24 UNITS SNACK FOR BLOOD SUGAR CONTROL. ADMINISTER 10 MINUTES BEFORE FOOD DIRECTED. REFRIGERATE UN-OPENED PENS. DISCARD CARTRIDGE 28 DAYS AFTER OPENING. PLUS CORRECTION Mar 01, 2021 [id number] ELEUTERIO LIVINGSTON [facility] [place] [facility] INSULIN,ASPART,HUMAN 100U/ML,NOVOLOG,FLEXPEN,3ML Discontinue d INJECT 20 UNITS SUBCUTANEOUSLY BEFORE BREAKFAST AND INJECT 20 UNITS BEFORE LUNCH AND INJECT 24 UNITS BEFORE SUPPER AND INJECT 24 UNITS SNACK FOR BLOOD SUGAR CONTROL. ADMINISTER 10 MINUTES BEFORE FOOD DIRECTED. REFRIGERATE UN-OPENED PENS. DISCARD CARTRIDGE 28 DAYS AFTER OPENING. PLUS CORRECTION 30 Jan 26, 2021 [id number] Jan 28, 2020 ELEUTERIO LIVINGSTON [facility] [place] [facility] INSULIN,ASPART,HUMAN 100U/ML,NOVOLOG,FLEXPEN,3ML Discontinue d INJECT 20 UNITS SUBCUTANEOUSLY BEFORE MEALS FOR BLOOD SUGAR CONTROL. ADMINISTER 10 MINUTES BEFORE FOOD DIRECTED. REFRIGERATE UN-OPENED PENS. DISCARD CARTRIDGE 28 DAYS AFTER OPENING. PLUS CORRECTION FOR BLOOD SUGAR CONTROL. ADMINISTER 10 MINUTES BEFORE FOOD DIRECTED. REFRIGERATE UN-OPENED PENS. DISCARD CARTRIDGE 28 DAYS AFTER OPENING. PLUS CORRECTION 30 Nov 16, 2020 [id number] Nov 16 ELEUTERIO LIVINGSTON [facility] [place] INSULIN,ASPART,HUMAN 100U/ML,NOVOLOG,FLEXPEN,3ML Discontinue d INJECT 15 UNITS SUBCUTANEOUSLY EVERY MORNING BEFORE MEAL AND INJECT 15 UNITS WITH LUNCH AND INJECT 15 UNITS WITH SUPPER AND INJECT 20 UNITS WITH SNACK FOR BLOOD SUGAR CONTROL. ADMINISTER 10 MINUTES BEFORE FOOD DIRECTED. REFRIGERATE UN-OPENED PENS. DISCARD CARTRIDGE 28 DAYS AFTER OPENING. Dec 22, 2019 5 [id number] Oct 12, 2019 ELEUTERIO LIVINGSTON [facility] [place] [facility] INSULIN,GLARGINE,HUMAN 100 UNIT/ML INJ,SOLOSTAR,3ML Active INJECT 50 UNITS SUBCUTANEOUSLY EVERY MORNING FOR BLOOD SUGAR CONTROL. ADMINISTER AT SAME TIME EACH DAY DIRECTED. DISCARD ANY OPEN CARTRIDGE AFTER 28 DAYS. Sep 23, 2020 [id number] Jan 28, 2020 BALTRUSAELEUTERIO QUIGLEY [facility] [place] [facility] INSULIN,GLARGINE,HUMAN 100 UNIT/ML INJ,SOLOSTAR,3ML Disconti nued INJECT 45 UNITS SUBCUTANEOUSLY EVERY MORNING FOR BLOOD SUGAR CONTROL. ADMINISTER AT SAME TIME EACH DAY DIRECTED. DISCARD ANY OPEN CARTRIDGE AFTER 28 DAYS. Oct 23, 2019 [id number] Aug 30, 2019 [facility] [place] [facility] LACTOBACILLUS ACIDOPHILUS TAB,CHEWABLE Non-VA CHEW ONE TABLET BY MOUTH ONCE A DAY Non-VA Documented by: MEGAN HAWK nted at: [facility] [place] [facility] LANCET,SOFTCLIX Active USE LANCET 5 TIME S A DAY FOR TESTING BLOOD GLUCOSE DIRECTED 500 Dec 28, 2020 [id number] March 19, 2020 ELEUTERIO LIVINGSTON Laron [facility] [place] LANCET,SOFTCLIX Discontinued USE LANCET 5 TIME S A DAY FOR TESTING BLOOD GLUCOSE DIRECTED 500 Jan 11, 2020 [id number] Sep 29, 2019 CRYSTALUSA ITIS,ELEUTERIO Laron [facility] [place] [facility] MAGNESIUM OXIDE 400MG TAB Non-VA TAKE ONE TABLET BY MOUTH ONCE A DAY Non-VA Documented by: MEGAN HAWK nted at: [facility] [place] METOPROLOL SUCCINATE 200MG TAB,SA TAKE O NE-HALF TABLET BY MOUTH EVERY EVENING FOR HEART/BLOOD PRESSURE. SWALLOW WHOLE, DO NOT CRUSH OR CHEW (TABLETS MAY BE CUT IN HALF). 45 March 18, 2020 [id number] Dec 28, 2019 STANISLAV HAMMER [facility] NEEDLE 22G 1.5IN USE NEEDLE FOR EVERY MONTH 1 Nov 12, 2019 [id number] Feb 07, 2019 ADELAIDA CLIFFORD [facility] NEEDLE,PEN 31G,5MM Discontinued USE NEEDLE SUBCUTANE OUSLY 5 TIMES A DAY - THIS IS A SINGLE USE NEEDLE AND SHOULD BE DISCARDED AFTER USE 500 Dec 21, 2019 [id number] Sep 28, 2019 ELEUTERIO LIVINGSTON [facility] [place] [facility] POTASSIUM CHLORIDE 10MEQ TAB,SA Active TAKE TWO TABLETS BY MOUTH TWO TIMES A DAY FOR POTASSIUM SUPPLEMENTATIONTAKE WITH FOOD 360 Dec 12, 2020 [id number] Mar 02, 2020 [facility]ELY [facility] POTASSIUM CHLORIDE 10MEQ TAB,SA Discontinued TAKE ONE TABLET BY MOUTH THREE TIMES A DAY WITH MEALS FOR POTASSIUM SUPPLEMENTATIONTAKE WITH FOOD 180 March 16, 2020 [id number] Nov 29, 2019 ELEUTERIO LIVINGSTON [facility] [place] POTASSIUM CHLORIDE 10MEQ TAB,SA Discontinued TAKE ONE TABLET BY MOUTH THREE TIMES A DAY WITH MEALS FOR POTASSIUM SUPPLEMENTATIONTAKE WITH FOOD 180 May 26, 2019 [id number] Jan 24, 2019 YANELY CONDE [facility] [place] SYRINGE 2.5-3ML/NDL 25G 1IN Active USE 1 SYRINGE EVERY MONTH 3 Feb 21, 2021 [id number] March 20, 2020 [facility] SYRINGE 2.5-3ML/NDL 25G 1IN Discontinued USE 1 SYRINGE EVERY Thu 3 March 18, 2020 [id number] Dec 21, 2019 [facility] TESTOSTERONE CYPIONATE 200MG/ML INJ,1ML (IN OIL) Active INJECT 200 MG (1 ML) INTRAMUSCULARLY EVERY MONTH FOR HORMONE REPLACEMENT 1 May 18, 2020 [id number] April 06, 2020 ADELAIDA CLIFFORD [facility] [place] TESTOSTERONE CYPIONATE 200MG/ML INJ,1ML (IN OIL) Discontinue d INJECT 200 MG (1 ML) INTRAMUSCULARLY EVERY MONTH FOR HORMONE REPLACEMENT 1 March 25, 2020 [id number] Oct 25, 2019 ADELAIDA CLIFFORD [facility] [place] [facility] TESTOSTERONE CYPIONATE 200MG/ML INJ,1ML (IN OIL) Discontinue d INJECT 200 MG (1 ML) INTRAMUSCULARLY EVERY MONTH FOR HORMONE REPLACEMENT 1 Nov 06, 2019 [id number] Sep 25, 2019 ADELAIDA CLIFFORD [facility] [place] [facility] TESTOSTERONE CYPIONATE 200MG/ML INJ,1ML (IN OIL) Discontinue d INJECT 200 MG (1 ML) INTRAMUSCULARLY EVERY MONTH FOR HORMONE REPLACEMENT 1 May 14, 2019 [id number] Apr 10, 2019 ADELAIDA CLIFFORD [facility] [place] [facility] TRAMADOL HCL 50MG TAB Active TAKE 1 TO 2 TABLET S BY MOUTH EVERY 6 HOURS NEEDED FOR PAIN 180 Jul 21, 2020 [id number] March 30, 2020 [facility] TRAMADOL HCL 50MG TAB Discontinued TAKE 1 TO 2 TABLET S BY MOUTH EVERY 6 HOURS NEEDED FOR PAIN 180 Jun 06, 2020 [id number] Jan 11, 2020 [facility] TRAMADOL HCL 50MG TAB Discontinued TAKE 1 TO 2 TABLET S BY MOUTH EVERY 6 HOURS NEEDED FOR PAIN 180 Jun 06, 2020 [id number] Dec 06, 2019 [facility] TRAMADOL HCL 50MG TAB Discontinued TAKE 1 TO 2 TABLET S BY MOUTH EVERY 6 HOURS NEEDED FOR PAIN 180 Dec 14, 2019 [id number] Nov 15, 2019 DANTE VALVERDE AYDE [facility] [place] TRAMADOL HCL 50MG TAB Discontinued TAKE 1 TO 2 TABLET S BY MOUTH EVERY 6 HOURS NEEDED FOR PAIN 180 Jul 06, 2019 [id number] May 26, 2019 NELLA GROVE [facility] [place] [facility] TRIAMCINOLONE ACETONIDE 0.5% CREAM,TOP Active A PPLY SPARINGLY TO AFFECTED AREA ONCE A DAY NEEDED FOR RASH 45 Jul 15, 2020 [id number] April 01 0 THOM CHAMBERS [facility] [place] [facility] TRIAMCINOLONE ACETONIDE 0.5% CREAM,TOP Discontinued A PPLY SPARINGLY TO AFFECTED AREA ONCE A DAY NEEDED FOR RASH 45 Oct 12, 2019 [id number] Jul REYESTHOM [facility] [place] [facility] Problems (Conditions): All [...] Source Basal cell carcinoma of scalp Active [id number] THOM CHAMBERS [facility] [place] [facility] Chronic back pain Active [id number] TERRIE CHAMBERS [facility] [place] [facility] Chronic kidney disease stage 3 Active [id number] REYES,DANA [facility] [place] [facility] Constipation Active [id number] THOM CHAMBERS [facility] [place] Diabetes mellitus Active 30741728 THOM CHAMBERS [facility] [place] [facility] Diabetic neuropathy Active 116852894 Neha CHAMBERS [facility] [place] [facility] Essential hypertension Active 44513153 THOM CHAMBERS [facility] [place] [facility] Hyperlipidemia Active 01023437 THOM CHAMBERS [facility] [place] [facility] Hypogonadism Active 06992766 THOM CHAMBERS [facility] [place] [facility] Sleep apnea Active 54331298 THOM CHAMBERS [facility] [place] Radiology Reports: +/- 30 days of the encounter No Data Provided for This Section Pathology Reports: +/- 30 days of the encounter No Data Provided for This Section Encounter Notes: All associated encounter notes This section contains the clinical notes associated to the Encounter. Date/Time Encounter Note(s) Provider Source Jul 05, 2019 10:08 AM NONVA NOTE: LOCAL TITLE: COMMUNITY CARE-SCHEDULING STANDARD TITLE: NONVA NOTE DATE OF NOTE: JUL 05, 2019@10:08 ENTRY DATE: JUL 05, 2019@10:08:57 AUTHOR: CHRISTIAN WOODWARD COSIGNER: URGENCY: STATUS: COMPLETED Patient Centered Community Care (PC3) Program Department of [facility] Choice Approval for Medical Care VA-Form [id number] Certain protected health information (PHI) may be enclosed; specifically information related to Drug Abuse, Alcoholism or Alcohol Abuse, Sickle Cell Anemia, and Human Immunodeficiency Virus (HIV). This specific PHI may NOT be re-disclosed or used by the recipient person or office for any purpose other than that for which the disclosure was made. [Ref. 38 [facility] 7332(b)(2)(H)(ii)] The information is b eing disclosed by [place] only for the treatment and care of the named patient in the health record. Accounting of disclosure must be maintained when required. Referral Urgency: Routine Indicate time frame for appointment: Clinically Indicated Date (WESTLEY): 07/12/2019 Category of Care/Type of Specialty: NEPHROLOGY Type of Specialist: HUMAN CAPITAL MANAGER Type of Service/Procedure: . Provisional Diagnosis: Chronic Kidney Disease, Stage 3 (Moderate)(ICD-10-CM N18.3) Reason For Request: Justification for Non VA Care: Other (please specify) Vet qualifies undeer the previous choice 40 rule Type of Service: Evaluation and Treatment Continued care with roll grinderDr. Conde Chief Complaint: CKD-3 Patient History / Clinical Findings / Diagnosis (Co-Morbidities): CKD-3 Continued care with Bryon roll grinderDr. Conde SEOC ID: MSC_NEPHROLOGY REFERRAL AND EVALUATION OF KIDNEY DISEASE [id number] Description: This authorization covers services associated with all medical care listed below as clinically indicated for the evaluation of a for kidney disease and related conditions (not for dialysis related treatment). To initiate dialysis care, a different dialysis specific SEOC, VA referral, and authorization are required. Duration: 180 days Procedural Overview 1. Initial outpatient evaluation and keith atment for the referred condition indicated on the consult 2. Labs relevant to the referred patient condition on the consult 3. Diagnostic imaging relevant to the re ferred patient condition on the consult 4. One renal biopsy and pathology servic es 5. Follow up imaging relevant to the ref erred patient condition on the consult 6. Follow up studies relevant to the ref erred patient condition on the consult 7. Follow-up visits for this episode of care *Please visit the [facility] Storefront [email or web address].[email or web address] for additional resources and requirements pertaining to the following * Pharmacy prescribing requirements * Durable Medical Equipment (DME), Prosthetics, and Orthotics prescribing requirements * Precertification (PRCT) process requirements * Request for Services (RFS) requirements Number of Visits, Frequency, and Duration: DURATION: 180 DAYS [place] or [facility] Preferred Provider Name and Contact Information: CONTINUATION OF CARE WITH DR. CONDE. Eligibility Verification: As the authorized VA credit and collections representative, I hereby confirm that the is eligible for Community Care services. The [place]'s basic eligibility was verified on 07/01/2019. Contact the Facility Community Care Office first to provide information to the VA or to reach a VA ordering provider. All contact from the contractor will be documented in the 's record by the [facility] community Care and the VA provider will be notified for awareness. Report all Critical Findings related to this authorization to the issuing office below. All other questions regarding this authorization should be directed to: [phone] Facility: [facility] Office of Community Care (OCC) Contact:[phone] Local [place] Office of Community Care (OCC) Correctional Officer or Equivalent: Name: Danisha Gamble Title: [place]-EKS Community Care Form Maker Plaster Contact Number (Normal Business Hours):[phone] AOD/Emergency Contact After Hours Number:[phone] From Station Number: [id number] Facility Name: [facility] [address] Address: [address] [place]- City: [place] State: [place] Zip: [address] Information: Name: SIMI COVARRUBIAS : Nov SSN: [id number] Address: [address] [place] [address] [address] [place], [place] [address] [place]'s Alternate Phone: 's Alternate Address: In accordance with 38 CFR 17.5875-1211, [place] will pay for non-VA hospital care and medical services that are authorized by [place] for Veterans who are determined by [place] to meet the Veterans Choice Program eligibility criteria set forth by section 101 of the Act and 38 CFR 17.1510 and any other eligibility standards that may apply to particular services (such as health care for newborns of Veterans under 38 CFR 17.38(a)(xiv) and dental benefits under 17.160-17.169). /noa/ CHRISTIAN WOODWARD [facility] Signed: 07/05/2019 10:10 CHRISTIAN WOODWARD [facility]
[2020-04-18 10:13] LABS: INR 0.9 (0.8-1.4); PROTHROMBIN TIME PATIENT 12.2 SEC (12.2-14.7)
[2020-04-18] MEDS ORDERED: MIDAZOLAM 5 MG/5 ML (VERSED) VIAL ONE (10:13)
[2020-04-18] MEDS ORDERED: fentaNYL INJECTION 100 MCG/2 ML AMP ONE ×2 (10:13→11:54)
[2020-04-18 10:14] LABS: BACTERIA,URINE NEGATIVE /HPF; RBC,URINE 0-2 /HPF
[2020-04-18] MEDS ORDERED: CHLO25TA22 PO (10:16)
[2020-04-18] MEDS ORDERED: CHOL500049 PO (10:16)
[2020-04-18] MEDS ORDERED: ALOG12.52 PO (10:16)
[2020-04-18] MEDS ORDERED: PAMI30VI8 SQ (10:16)
[2020-04-18] MEDS ORDERED: METO200T48 PO (10:16)
[2020-04-18] MEDS ORDERED: TR1C15 TP (10:16)
[2020-04-18] MEDS ORDERED: INSU100I14 SQ (10:16)
--- OUTSIDE RECORDS SUMMARY | 2020-04-18 10:16 | XMS REPORT | Encounter Summary ---
Author Author [facility] SIMI palacio Organization Department of [facility] Address [address] [place] [phone] Phone Unavailable Care Team Providers Care [employer] Operator Name Role Phone THOM CHAMBERS PCP [...] REP (WNR) MEDICARE ADVANTAGE MCR ([facility]) Nov 09, 2017 [id number] [phone] SIMI COVARRUBIAS PATIENT ADVANTRA [facility] MED REP (WNR) MEDICARE ADVANTAGE MCR ([facility]) Nov 09, 2017 [id number] [phone] SIMI COVARRUBIAS PATIENT AETNA MCR ([facility]) MEDICARE ADVANTAGE MCR ([facility]) Nov 09, [id number] SIMI COVARRUBIAS PATIENT Selected Encounter This section includes the information on record at [place] for the Encounter. Date/Time Encounter Type Encounter Description Reason Provider Source Jun 30, 2019 12:00 AM Outpatient Encounter EVENT ([facility]OR[facility]) [facility] Encounter Template Text not used by [place] Assessments - Encounter Diagnoses No Data Provided [...] appointme nts. The data comes from all [place] treatment facilities. Appointment Date/Time Appointment Type Appointment Facili ty Name Jul 07, 2019 11:45 AM AMBULATORY - MEDICINE [facility] Jul 14, 2019 11:00 AM AMBULATORY - NONE [facility] [place] [facility] Jul 28, 2019 10:00 AM [facility] - NONE [facility] Aug 04, 2019 11:00 AM AMBULATORY - NONE [facility] [place] [facility] Aug 16, 2019 01:00 PM AMBULATORY - NONE [facility] [place] [facility] Aug 25, 2019 10:00 AM AM[facility]ORY - NONE [facility] Sep 15, 2019 12:00 PM [facility] Sep 22, 2019 10:00 AM AMBULATORY - NONE [facility] Sep 23, 2019 11:00 AM AMBULATORY - NONE [facility] [place] [facility] Oct 17, 2019 03:00 PM AMBULATORY - NONE [facility] [place] Oct 20, 2019 10:00 AM [facility] - [facility]ONE [facility] Nov 10, 2019 12:00 PM AMBULATORY - MEDICINE [facility] Nov 16, 2019 02:00 PM AM[facility]ORY - SURGERY [facility] [place] [facility] Nov 16, 2019 03:00 PM AMBULATORY - NONE [facility] [place] [facility] Nov 17, 2019 10:00 AM AMBULATORY - NONE [facility] Dec 01, 2019 11:30 AM AMBULATORY - MEDICINE [facility] Dec 14, 2019 03:00 PM AMBULATORY - NONE [facility] [place] [facility] Dec 15, 2019 01:00 PM AMBULATORY - NONE [facility] Surgical Procedures: All [...] Range Comment Jul 07, 2019 09:11 AM [facility] PTH INTACT Specimen Type: PLASMA No comment entered. PTH INTACT 45.8 pg/mL 8.7-77.7 Jul 07, 2019 09:11 AM [facility] CBC & DIFF Specimen Type: BLOOD No [...] 0.8 % Jul 07, 2019 09:11 AM [facility] URINALYSIS Specimen Type: URINE No comment entered. [...] Trace /HPF Jul 07, 2019 09:11 AM [facility] MAGNESIUM (mg/dL) Specimen Type: PLASMA No comment entered. MAGNESIUM (mg/dL) 1.8 mg/dl 1.6-2.6 Jul 07, 2019 09:11 AM [facility] URIC ACID (mg/dL) Specimen Type: PLASMA No comment entered. URIC ACID (mg/dL) 6.7 mg/dL 3.5-7.2 Jul 07, 2019 09:11 AM [facility] VITAMIN D (25-[place]) Specimen Type: SERUM No comment entered. VITAMIN D (25-[place]) 42.9 ng/mL 30.0-96.0 Jul 07, 2019 09:11 AM [facility] MICROALBUMIN (CO,EK) Specimen Type: URINE No comment entered. *MICROALBUMIN(CONC) 46.6 mg/dL - *MICROALBUMIN(SPOT) 158 mcg/mg cr HH 0-29 *CREATININE mg/dL 295.0 mg/dl Not Avail. Jul 07, 2019 09:11 AM [facility] HEPATIC FUNCTION PANE L Specimen Type: PLASMA No comment entered. PROTEIN,TOTAL 6.1 g/dL 6.0-8.6 ALBUMIN 3.9 g/dl 3.4-5.0 TOTAL BILIRUBIN 0.4 mg/dL 0.2-1.2 DIRECT BILIRUBIN 0.2 mg/dL 0-0.5 ASPARTATE TRANSAMINASE 29 U/L 5-34 ALANINE AMINOTRANSFERASE 24 U/L 8-40 ALKALINE PHOSPHATASE 91 U/L 40-150 Jul 07, 2019 09:11 AM [facility] RENAL FUNCTION PANEL Specimen Type: PLASMA No comment entered. *CREATININE 1.22 mg/dL 0.7-1.3 UREA NITROGEN mg/dL 13 mg/dL 9-25 GLUCOSE 152 mg/dL H 72-99 SODIUM 140 mEq/L 136-145 POTASSIUM 3.3 mEq/L L 3.5-5.0 CALCIUM (mg/dL) 9.7 mg/dL 8.4-10.4 PHOSPHORUS INORGANIC 3.5 mg/dL 2.3-4.7 ALBUMIN 3.9 g/dl 3.4-5.0 CHLORIDE 99 mEq/L 98-107 CO2 31 mEq/L 22-31 EGFR 58.2 Jul 07, 2019 09:11 AM [facility] [facility] COMPREHENSIVE AR TABOLIC PANEL Specimen Type: PLASMA No comment [...] Adverse Reactions (ADR s) on record with [place] for the patient. The data comes from a ll [place] treatment facilities. It does not list Allergies/ADRs that were removed or entered in error. Some allergies/ADRs may be reported in t Immunization section. Allergen Event Date Event Type Reaction(s) Severity Source LISINOPRIL Dec 01, 2017 Propensity to adverse reactions to drug (disorder) Renal impairment [facility] 15 METFORMIN Dec 01, 2017 Propensity to adverse reactions to drug (disorder) Renal impairment [facility] Medications: VA dispensed (-15 months) and Non-VA Documented (Obtained Outside A) Section Date Range: 1) prescriptions processed by a VA pharmacy in the last [address] [facility], and 2) all medications recorded in the [place] medical record as "non-VA medic ations". Pharmacy terms refer to [place] pharmacy's work on prescriptions. VA patient s are advised to take their medications as instructed by their health care team. The data comes from all [place] treatment facilities. Glossary of Pharmacy Terms:Active = A prescription that can be filled at the local [place] pharmacy.Active: On Hold = An active prescription that will not be filled until pharmacy resolves the issue.Active: Susp = An active prescription that is not scheduled to be filled yet.Clinic Order = A medication received during a visit to a [place] clinic or emergency department (currently not available).Discontinued = A prescription stopped by a [place] provider. It is no longer available to be filled. = A prescription which is too old to fill. This does not refer to the expiration date of the medication in the container. Non-VA = A medication that came from someplace other than a [place] pharmacy. This may be a prescription from either the [place] or other providers that was filled outside the [place]. Or, it may be an over the [...] TIMES A DAY 400 Sep 12, 2020 [id number] Feb 29, 2020 [facility] ACCU-CHEK ROSINA PLUS (GLUCOSE) TEST STRIP Discontinued USE 1 STRIP FOR TESTING FOUR TIMES A DAY 400 Sep 15, 2019 [id number] Jun 13, 2019 [facility] ALCOHOL PREP PAD Discontinued USE 1 PAD ON SKIN FOUR TIMES A DAY 40 0 Apr 25, 2020 [id number] Nov 29, 2019 [facility] [place] [facility] ALCOHOL PREP PAD Discontinued USE 1 PAD ON SKIN FOUR TIMES A DAY 40 0 Sep 15, 2019 [id number] Apr 18, 2019 [facility] ALLOP[facility] 100MG TAB Active TAKE ONE TABLET BY MOUTH ONCE A DAY FOR GOUT. TAKE WITH PLENTY OF WATER 90 Sep 23, 2020 [id number] Mar 05, 2020 SILVINA CHAMBERS [facility] [place] [facility] ALLOPURINOL 100MG TAB Discontinued TAKE ONE TABLET BY MOUTH ONCE A DAY FOR GOUT. TAKE WITH PLENTY OF WATER 90 Dec 30, 2019 [id number] Sep 17, 2019 THOM SHARPE [facility] [place] [facility] ALOGLIPTIN 12.5MG TAB Active TAKE ONE TABLET BY MOUTH O NCE A DAY FOR DIABETES 90 Sep 12, 2020 [id number] Mar 04, 2020 BALTRUSAELEUTERIO QUIGLEY ZAK [facility] [place] [facility] ALOGLIPTIN 12.5MG TAB Discontinued TAKE ONE TABLET BY MOUTH ONCE A DAY FOR DIABETES 90 Dec 22, 2019 [id number] Jun 18, 2019 BALELEUTERIO KONG [facility] [place] [facility] AMLODIPINE BESYLATE 10MG TAB Discontinued TAKE ONE TA BLET BY MOUTH EVERY MORNING FOR HEART/BLOOD PRESSURE 90 Jun 10, 2019 [id number] Feb 25, 2019 MONIKA HAMMER [facility] [place] [facility] AMLODIPINE BESYLATE 10MG TAB TAKE ONE TA BLET BY MOUTH EVERY MORNING FOR HEART/BLOOD PRESSURE 90 Apr 12, 2020 [id number] Feb 10, 2020 SILVINA CHAMBERS [facility] ASPIRIN 81MG TAB,CHEWABLE Non-VA CHEW ONE TABLET BY MOUTH ONCE A DAY Non-VA Documented by: MEGAN HAWK nted at: [facility] [place] [facility] ATORVASTATIN CA 20MG TAB Active TAKE ONE TABLET BY MOUTH ONCE A DAY FOR CHOLESTEROL. REPORT ANY UNEXPLAINED MUSCLE PAIN OR WEAKNESS TO YOUR DOCTOR. 90 Jan 02, 2021 [id number] March 24, 2020 [facility] ATORVASTATIN CA 40MG TAB Discontinued TAKE ONE-HALF T ABLET BY MOUTH AT BEDTIME FOR CHOLESTEROL. REPORT ANY UNEXPLAINED MUSCLE PAIN OR WEAKNESS TO YOUR DOCTOR. 45 Jul 15, 2020 [id number] Oct 14, 2019 THOM CHAMBERS [facility] [place] [facility] ATORVASTATIN CA 40MG TAB Discontinued TAKE ONE-HALF T ABLET BY MOUTH AT BEDTIME FOR CHOLESTEROL. REPORT ANY UNEXPLAINED MUSCLE PAIN OR WEAKNESS TO YOUR DOCTOR. 45 Oct 12, 2019 [id number] Jul 16, 2019 THOM CHAMBERS [facility] [place] [facility] CALCIUM CARBONATE 500MG TAB,CHEWABLE Non-VA CHEW ONE TABLET BY MOUTH PRN Non-VA Documented by: THOM CHAMBERS nted at: [facility] CHLORTHALIDONE 25MG TAB Active TAKE ONE TABLET BY MOUTH ONCE A DAY 90 Jul 01, 2020 [id number] March 19, 2020 MONIKA HAMMER [facility] [place] [facility] CHLORTHALIDONE 25MG TAB Discontinued TAKE ONE TABLET BY MOUTH ONCE A DAY 90 Jun 16, 2019 [id number] Apr 12, 2019 MONIKA HAMMER [facility] [place] [facility] CHOLECALCIFEROL 1000UNT TAB Non-VA TAKE ONE TABLET BY MOUTH EVERY OTHER DAY Non-VA Docume nted by: MEGAN HAWK Docume nted at: [facility] [place] [facility] CYANOCOBALAMIN 1000MCG/ML INJ Active INJECT 100 0 MCG (1 ML) INTRAMUSCULARLY EVERY MONTH FOR B12 SUPPLEMENTATION. 3 Nov 03, 2020 [id number] Apr 23, 2020 [facility] [place] [facility] CYANOCOBALAMIN 1000MCG/ML INJ Discontinued INJECT 100 0 MCG (1 ML) INTRAMUSCULARLY EVERY MONTH FOR B12 SUPPLEMENTATION. 3 Nov 17 0 [id number] Aug 07, 2019 [facility] [place] [facility] DIPHENHYDRAMINE HCL 25MG CAP Non-VA TAKE 1 CAPSULE BY MOUTH PRN Non-VA Documented by: THOM CHAMBERS Docsammi nted at: [facility] DOCUSATE NA 100MG CAP No n-VA TAKE 2 CAPSULES BY MOUTH ONCE A DAY Non-VA Documented by: THOM CHAMBERS Docume nted at: [facility] FISH OIL 1000MG (500MG DHA/EPA) CAP,ORAL Non-VA TAKE 1 CAPSULE BY MOUTH ONCE A DAY Non-VA Documented by: MEGAN HAWK Docume nted at: [facility] GABAPENTIN 100MG CAP Active TAKE 1 CAPSULE BY M OUTH EVERY MORNING AND TAKE 1 CAPSULE BY MOUTH AT NOON AND TAKE 2 CAPSULES BY MOUTH AT BEDTIME 360 Jul 06, 2020 [id number] March 31, 2020 ELEUTERIO LIVINGSTON [facility] [place] [facility] GLUCAGON 1MG/GABRIELLA INJ,EMERGENCY KIT INJEC T 1MG SUBCUTANEOUSLY NEEDED FOR SEVERE HYPOGLYCEMIA 1 Nov 30, 2019 [id number] Nov 03, 2019 THOM CHAMBERS [facility] [place] [facility] INSULIN,ASPART,HUMAN 100U/ML,NOVOLOG,FLEXPEN,3ML Active: On Hold INJECT 20 UNITS SUBCUTANEOUSLY BEFORE BREAKFAST AND INJECT 20 UNITS BEFORE LUNCH AND INJECT 26 UNITS BEFORE SUPPER AND INJECT 24 UNITS SNACK FOR BLOOD SUGAR CONTROL. ADMINISTER 10 MINUTES BEFORE FOOD DIRECTED. REFRIGERATE UN-OPENED PENS. DISCARD CARTRIDGE 28 DAYS AFTER OPENING. PLUS CORRECTION Mar 01, 2021 [id number] BALTRUSAITIS[facility] INSULIN,ASPART,HUMAN 100U/ML,NOVOLOG,FLEXPEN,3ML Discontinue d INJECT 20 UNITS SUBCUTANEOUSLY BEFORE BREAKFAST AND INJECT 20 UNITS BEFORE LUNCH AND INJECT 24 UNITS BEFORE SUPPER AND INJECT 24 UNITS SNACK FOR BLOOD SUGAR CONTROL. ADMINISTER 10 MINUTES BEFORE FOOD DIRECTED. REFRIGERATE UN-OPENED PENS. DISCARD CARTRIDGE 28 DAYS AFTER OPENING. PLUS CORRECTION 30 Jan 26, 2021 [id number] Jan 28, 2020 [facility] [place] INSULIN,ASPART,HUMAN 100U/ML,NOVOLOG,FLEXPEN,3ML Discontinue d INJECT 20 UNITS SUBCUTANEOUSLY BEFORE MEALS FOR BLOOD SUGAR CONTROL. ADMINISTER 10 MINUTES BEFORE FOOD DIRECTED. REFRIGERATE UN-OPENED PENS. DISCARD CARTRIDGE 28 DAYS AFTER OPENING. PLUS CORRECTION FOR BLOOD SUGAR CONTROL. ADMINISTER 10 MINUTES BEFORE FOOD DIRECTED. REFRIGERATE UN-OPENED PENS. DISCARD CARTRIDGE 28 DAYS AFTER OPENING. PLUS CORRECTION 30 Nov 16, 2020 [id number] Nov 16 [facility]ANNDELL [facility] [place] [facility] INSULIN,ASPART,HUMAN 100U/ML,NOVOLOG,FLEXPEN,3ML Discontinue d INJECT 15 UNITS SUBCUTANEOUSLY EVERY MORNING BEFORE MEAL AND INJECT 15 UNITS WITH LUNCH AND INJECT 15 UNITS WITH SUPPER AND INJECT 20 UNITS WITH SNACK FOR BLOOD SUGAR CONTROL. ADMINISTER 10 MINUTES BEFORE FOOD DIRECTED. REFRIGERATE UN-OPENED PENS. DISCARD CARTRIDGE 28 DAYS AFTER OPENING. Dec 22, 2019 [id number] Oct 12, 2019 LYNDATRUSADANNDELL [facility] [place] [facility] INSULIN,GLARGINE,HUMAN 100 UNIT/ML INJ,SOLOSTAR,3ML Active INJECT 50 UNITS SUBCUTANEOUSLY EVERY MORNING FOR BLOOD SUGAR CONTROL. ADMINISTER AT SAME TIME EACH DAY DIRECTED. DISCARD ANY OPEN CARTRIDGE AFTER 28 DAYS. Sep 23, 2020 [id number] Jan 28, 2020 [facility] INSULIN,GLARGINE,HUMAN 100 UNIT/ML INJ,SOLOSTAR,3ML Disconti nued INJECT 45 UNITS SUBCUTANEOUSLY EVERY MORNING FOR BLOOD SUGAR CONTROL. ADMINISTER AT SAME TIME EACH DAY DIRECTED. DISCARD ANY OPEN CARTRIDGE AFTER 28 DAYS. Oct 23, 2019 [id number] Aug 30, 2019 [facility] LACTOBACILLUS ACIDOPHILUS TAB,CHEWABLE Non-VA CHEW ONE TABLET BY MOUTH ONCE A DAY Non-VA Documented by: MEGAN HAWK nted at: [facility] [place] [facility] LANCET,SOFTCLIX Active USE LANCET 5 TIME S A DAY FOR TESTING BLOOD GLUCOSE DIRECTED 500 Dec 28, 2020 [id number] March 19, 2020 CRYSTALUSADANNELEUTERIO Larry [facility] [place] [facility] LANCET,SOFTCLIX Discontinued USE LANCET 5 TIME S A DAY FOR TESTING BLOOD GLUCOSE DIRECTED 500 Jan 11, 2020 [id number] Sep 29, 2019 CRYSTALUSA ITISELEUTERIO Larry [facility] [place] [facility] MAGNESIUM OXIDE 400MG TAB Non-VA TAKE ONE TABLET BY MOUTH ONCE A DAY Non-VA Documented by: MEGAN HAWK nted at: [facility] [place] [facility] METOPROLOL SUCCINATE 200MG TAB,SA TAKE O NE-HALF TABLET BY MOUTH EVERY EVENING FOR HEART/BLOOD PRESSURE. SWALLOW WHOLE, DO NOT CRUSH OR CHEW (TABLETS MAY BE CUT IN HALF). 45 March 18, 2020 [id number] Dec 28, 2019 STANISLAV HAMMER [facility] NEEDLE 22G 1.5IN USE NEEDLE FOR EVERY MONTH 1 Nov 12, 2019 [id number] Feb 07, 2019 ADELAIDA CLIFFORD [facility] NEEDLE,PEN 31G,5MM Discontinued USE NEEDLE SUBCUTANE OUSLY 5 TIMES A DAY - THIS IS A SINGLE USE NEEDLE AND SHOULD BE DISCARDED AFTER USE 500 Dec 21, 2019 [id number] Sep 28, 2019 ELEUTERIO LIVINGSTON [facility] [place] POTASSIUM CHLORIDE 10MEQ TAB,SA Active TAKE TWO TABLETS BY MOUTH TWO TIMES A DAY FOR POTASSIUM SUPPLEMENTATIONTAKE WITH FOOD 360 Dec 12, 2020 [id number] Mar 02, 2020 YANELY QUINTERO [facility] POTASSIUM CHLORIDE 10MEQ TAB,SA Discontinued TAKE ONE TABLET BY MOUTH THREE TIMES A DAY WITH MEALS FOR POTASSIUM SUPPLEMENTATIONTAKE WITH FOOD 180 March 16, 2020 [id number] Nov 29, 2019 ELEUTERIO LIVINGSTON [facility] [place] [facility] POTASSIUM CHLORIDE 10MEQ TAB,SA Discontinued TAKE ONE TABLET BY MOUTH THREE TIMES A DAY WITH MEALS FOR POTASSIUM SUPPLEMENTATIONTAKE WITH FOOD 180 May 26, 2019 [id number] Jan 24, 2019 YANELY QUINTERO [facility] [place] [facility] SYRINGE 2.5-3ML/NDL 25G 1IN Active USE 1 SYRINGE EVERY MONTH 3 Feb 21, 2021 [id number] March 20, 2020 [facility] SYRINGE 2.5-3ML/NDL 25G 1IN Discontinued USE 1 SYRINGE EVERY Thu 3 March 18, 2020 [id number] Dec 21, 2019 [facility] TESTOSTERONE CYPIONATE 200MG/ML INJ,1ML (IN OIL) Active INJECT 200 MG (1 ML) INTRAMUSCULARLY EVERY MONTH FOR HORMONE REPLACEMENT 1 May 18, 2020 [id number] April 06, 2020 ADELAIDA CLIFFORD [facility] [place] [facility] TESTOSTERONE CYPIONATE 200MG/ML INJ,1ML (IN OIL) Discontinue d INJECT 200 MG (1 ML) INTRAMUSCULARLY EVERY MONTH FOR HORMONE REPLACEMENT 1 March 25, 2020 [id number] Oct 25, 2019 ADELAIDA CLIFFORD [facility] [place] [facility] TESTOSTERONE CYPIONATE 200MG/ML INJ,1ML (IN OIL) Discontinue d INJECT 200 MG (1 ML) INTRAMUSCULARLY EVERY MONTH FOR HORMONE REPLACEMENT 1 Nov 06, 2019 [id number] Sep 25, 2019 ADELAIDA CLIFFORD [facility] [place] [facility] TESTOSTERONE CYPIONATE 200MG/ML INJ,1ML (IN OIL) Discontinue d INJECT 200 MG (1 ML) INTRAMUSCULARLY EVERY MONTH FOR HORMONE REPLACEMENT 1 May 14, 2019 [id number] Apr 10, 2019 ADELAIDA CLIFFORD [facility] [place] [facility] TRAMADOL HCL 50MG TAB Active TAKE 1 TO 2 TABLET S BY MOUTH EVERY 6 HOURS NEEDED FOR PAIN 180 Jul 21, 2020 [id number] March 30, 2020 [facility] TRAMADOL HCL 50MG TAB Discontinued TAKE 1 TO 2 TABLET S BY MOUTH EVERY 6 HOURS NEEDED FOR PAIN 180 Jun 06, 2020 [id number] Jan 11, 2020 [facility] TRAMADOL HCL 50MG TAB Discontinued TAKE 1 TO 2 TABLET S BY MOUTH EVERY 6 HOURS NEEDED FOR PAIN 180 Jun 06, 2020 [id number] Dec 06, 2019 [facility] TRAMADOL HCL 50MG TAB Discontinued TAKE 1 TO 2 TABLET S BY MOUTH EVERY 6 HOURS NEEDED FOR PAIN 180 Dec 14, 2019 [id number] Nov 15, 2019 ABRAMDANTE AYDE [facility] [place] TRAMADOL HCL 50MG TAB Discontinued TAKE 1 TO 2 TABLET S BY MOUTH EVERY 6 HOURS NEEDED FOR PAIN 180 Jul 06, 2019 [id number] May 26, 2019 NELLA GROVE [facility] [place] [facility] TRIAMCINOLONE ACETONIDE 0.5% CREAM,TOP Active A PPLY SPARINGLY TO AFFECTED AREA ONCE A DAY NEEDED FOR RASH 45 Jul 15, 2020 [id number] April 01 0 THOM CHAMBERS [facility] [place] [facility] TRIAMCINOLONE ACETONIDE 0.5% CREAM,TOP Discontinued A PPLY SPARINGLY TO AFFECTED AREA ONCE A DAY NEEDED FOR RASH 45 Oct 12, 2019 [id number] Jul THOM CHAMBERS [facility] [place] [facility] Problems (Conditions): All historical and current Section Date Range: From patient's date of to the date document was create d. This section includes a list of Problems (Conditions) know n to [place] for the patient. It includes both active and inacti ve problems (conditions). The data comes from all [place] treatment facilities. Problem Status Problem Code Date of Onset Date of Resolution Comm ent(s) Provider Source Basal cell carcinoma of scalp Active [id number] THOM CHAMBERS [facility] [place] [facility] Chronic back pain Active [id number] TERRIE CHAMBERS [facility] [place] [facility] Chronic kidney disease stage 3 Active [id number] REYES,DANA [facility] [place] [facility] Constipation Active [id number] THOM CHAMBERS [facility] [place] [facility] Diabetes mellitus Active [id number] THOM CHAMBERS [facility] [place] [facility] Diabetic neuropathy Active [id number] Neha CHAMBERS [facility] [place] [facility] Essential hypertension Active [id number] THOM CHAMBERS [facility] [place] [facility] Hyperlipidemia Active [id number] THOM CHAMBERS [facility] [place] [facility] Hypogonadism Active 12131838 THOM CHAMBERS [facility] [place] [facility] Sleep apnea Active [id number] THOM CHAMBERS [facility] [place] [facility] Radiology Reports: +/- 30 days of the encounter No Data Provided for This Section Pathology Reports: +/- 30 days of the encounter No Data Provided for This Section Encounter Notes: All associated encounter notes No Data Provided for This Section
--- OUTSIDE RECORDS SUMMARY | 2020-04-18 10:16 | XMS REPORT | Encounter Summary ---
Author Author Department of [facility] SIMI palacio Organization Department of [facility] Address [address] [place] [id number] Phone Unavailable Care Team Providers Care Mill Set Up Name Role Phone THOM CHAMBERS PCP Unavailable [...] to Policy Woodard [facility] ([facility]) MEDICARE ADVANTAGE MCR ([facility]) Nov 09, 2017 [id number] [phone] SIMI COVARRUBIAS PATIENT [facility] (R) MEDICARE ADVANTAGE MCR ([facility]) Nov 09, 2017 [id number] [phone] SIMI COVARRUBIAS PATIENT [facility] ([facility]) MEDICARE ADVANTAGE MCR ([facility]) Nov 09, [id number] SIMI COVARRUBIAS PATIENT Selected Encounter This section includes the information on record at [place] for the Encounter. Date/Time Encounter Type Encounter Description Reason Provider Source Jun 24, 2019 03:19 PM Outpatient Encounter ADMIN PAT ACTIVTIES ([place] NCT) [facility] [place] IHE Encounter Template [...] Date/Time Appointment Type Appointment Facili ty Name Jun 30, 2019 10:00 AM [facility]BULATORY - NONE [facility] Jul 07, 2019 11:45 AM AMBULATORY - [...] Range Comment Jul 07, 2019 09:11 AM [facility] PTH INTACT Specimen Type: PLASMA No comment entered. PTH INTACT 45.8 pg/mL 8.7-77.7 Jul 07, 2019 09:11 AM [facility] CBC & DIFF Specimen Type: [...] 0.8 % Jul 07, 2019 09:11 AM [facility] URINALYSIS Specimen Type: URINE No [...] Trace /HPF Jul 07, 2019 09:11 AM [facility] MAGNESIUM (mg/dL) Specimen Type: PLASMA No comment entered. MAGNESIUM (mg/dL) 1.8 mg/dl 1.6-2.6 Jul 07, 2019 09:11 AM [facility] URIC ACID (mg/dL) Specimen Type: PLASMA No comment entered. URIC ACID (mg/dL) 6.7 mg/dL 3.5-7.2 Jul 07, 2019 09:11 AM [facility] VITAMIN D (25-OH) Specimen Type: SERUM No comment entered. VITAMIN D (25-OH) 42.9 ng/mL 30.0-96.0 Jul 07, 2019 09:11 AM [facility] MICROALBUMIN (CO,EK) Specimen Type: URINE No comment entered. *MICROALBUMIN(CONC) 46.6 mg/dL - *MICROALBUMIN(SPOT) 158 mcg/mg cr HH 0-29 *CREATININE mg/dL 295.0 mg/dl Not Avail. Jul 07, 2019 09:11 AM [facility] HEPATIC FUNCTION PANE L Specimen Type: PLASMA No comment entered. PROTEIN,TOTAL 6.1 g/dL 6.0-8.6 ALBUMIN 3.9 g/dl 3.4-5.0 TOTAL BILIRUBIN 0.4 mg/dL 0.2-1.2 DIRECT BILIRUBIN 0.2 mg/dL 0-0.5 ASPARTATE TRANSAMINASE 29 U/L 5-34 ALANINE AMINOTRANSFERASE 24 U/L 8-40 ALKALINE PHOSPHATASE 91 U/L 40-150 Jul 07, 2019 09:11 AM [facility] RENAL FUNCTION PANEL Specimen Type: [...] 58.2 Jul 07, 2019 09:11 AM [facility] TABOL[facility] Specimen Type: PLASMA No [...] Adverse Reactions (ADR s) on record with [place] for the patient. The data comes from a ll [place] treatment facilities. It does not list Allergies/ADRs that were removed or entered in error. Some allergies/ADRs may be reported in t Immunization section. Allergen Event Date Event Type Reaction(s) Severity Source LISINOPRIL Dec 01, 2017 Propensity to adverse reactions to drug (disorder) Renal impairment [facility] 15 METFORMIN Dec 01, 2017 Propensity to adverse reactions to drug (disorder) Renal impairment [facility] 15 Medications: VA dispensed (-15 months) and Non-VA Documented (Obtained Outside A) Section Date Range: 1) prescriptions processed by a VA pharmacy in the last 15 m [facility], and 2) all medications recorded in the [place] medical record as "non-VA medic ations". Pharmacy terms refer to [place] pharmacy's work on prescriptions. VA patient s are advised to take their medications as instructed by their health care team. The data comes from all [place] treatment facilities. Glossary of Pharmacy Terms:Active = A prescription that can be filled at the local [place] pharmacy.Active: On Hold = An active prescription that will not be filled until pharmacy resolves the issue.Active: Susp = An active prescription that is not scheduled to be filled yet.Clinic Order = A medication received during a visit to a [place] clinic or emergency department (currently not available).Discontinued = A prescription stopped by a [place] provider. It is no longer available to be filled. = A prescription which is too old to fill. This does not refer to the expiration date of the medication in the container. Non-VA = A medication that came from someplace other than a [place] pharmacy. This may be a prescription from [...] TIMES A DAY 400 Sep 12, 2020 [id number] Feb 29, [facility] ROSINA PLUS (GLUCOSE) TEST STRIP Discontinued USE 1 STRIP FOR TESTING FOUR TIMES A DAY 400 Sep 15, 2019 [id number] Jun 13, 2019 [facility] AL[facility] Discontinued USE 1 PAD ON SKIN FOUR TIMES A DAY 40 0 Apr 25, 2020 [id number] Nov 29, [address] [facility] [place] ALCOHOL PREP PAD Discontinued USE 1 PAD ON SKIN FOUR TIMES A DAY 40 0 Sep 15, 2019 [id number] Apr 18, 2019 [facility] ALLOPUR[facility] 100MG TAB Active TAKE ONE TABLET BY MOUTH ONCE A DAY FOR GOUT. TAKE WITH PLENTY OF WATER 90 Sep 23, 2020 [id number] Mar 05, 2020 SILVINA CHAMBERS [facility] [place] ALLOPURINOL 100MG TAB Discontinued TAKE ONE TABLET BY MOUTH ONCE A DAY FOR GOUT. TAKE WITH PLENTY OF WATER 90 Dec 30, 2019 [id number] Sep 17, 2019 THOM SHARPE [facility] [place] ALOGLIPTIN 12.5MG TAB Active TAKE ONE TABLET BY MOUTH O NCE A DAY FOR DIABETES 90 Sep 12, 2020 [id number] Mar 04, 2020 BALTRUSAELEUTERIO QUIGLEY RN [facility] [place] ALOGLIPTIN 12.5MG TAB Discontinued TAKE ONE TABLET BY MOUTH ONCE A DAY FOR DIABETES 90 Dec 22, 2019 [id number] Jun 18, 2019 BALTRUSAITISELEUTERIO [facility] [place] AMLODIPINE BESYLATE 10MG TAB Discontinued TAKE ONE TA BLET BY MOUTH EVERY MORNING FOR HEART/BLOOD PRESSURE 90 Jun 10, 2019 [id number] Feb 25, 2019 MONIKA HAMMER [facility] [place] AMLODIPINE BESYLATE 10MG TAB TAKE ONE TA BLET BY MOUTH EVERY MORNING FOR HEART/BLOOD PRESSURE 90 Apr 12, 2020 [id number] Feb 10, 2020 SILVINA CHAMBERS [facility] ASPIRIN 81MG TAB,CHEWABLE Non-VA CHEW ONE TABLET BY MOUTH ONCE A DAY Non-VA Documented by: MEGAN HAWK nted at: [facility] [place] DIV ATORVASTATIN CA 20MG TAB Active TAKE ONE TABLET BY MOUTH ONCE A DAY FOR CHOLESTEROL. REPORT ANY UNEXPLAINED MUSCLE PAIN OR WEAKNESS TO YOUR DOCTOR. 90 Jan 02, 2021 [id number] March 24, 2020 [facility] 15 ATORVASTATIN CA 40MG TAB Discontinued TAKE ONE-HALF T ABLET BY MOUTH AT BEDTIME FOR CHOLESTEROL. REPORT ANY UNEXPLAINED MUSCLE PAIN OR WEAKNESS TO YOUR DOCTOR. 45 Jul 15, 2020 [id number] Oct 14, 2019 REYESTHOMMERGED WITH [facility] [place] ATORVASTATIN CA 40MG TAB Discontinued TAKE ONE-HALF T ABLET BY MOUTH AT BEDTIME FOR CHOLESTEROL. REPORT ANY UNEXPLAINED MUSCLE PAIN OR WEAKNESS TO YOUR DOCTOR. 45 Oct 12, 2019 [id number] Jul 16, 2019 [facility]OMMERGED WITH [facility] [place] CALCIUM CARBONATE 500MG TAB,CHEWABLE Non-VA CHEW ONE TABLET BY MOUTH PRN Non-VA Documented by: THOM CHAMBERS nted at: [facility] CHLORTHALIDONE 25MG TAB Active TAKE ONE TABLET BY MOUTH ONCE A DAY 90 Jul 01, 2020 [id number] March 19, 2020 MONIKA HAMMER [facility] [place] CHLORTHALIDONE 25MG TAB Discontinued TAKE ONE TABLET BY MOUTH ONCE A DAY 90 Jun 16, 2019 [id number] Apr 12, 2019 MONIKA HAMMER [facility] [place] [facility] CHOLECALCIFEROL 1000UNT TAB Non-VA TAKE ONE TABLET BY MOUTH EVERY OTHER DAY Non-VA Docume nted by: MEGAN HAWK Docume nted at: [facility] [place] [facility] CYANOCOBALAMIN 1000MCG/ML INJ Active INJECT 100 0 MCG (1 ML) INTRAMUSCULARLY EVERY MONTH FOR B12 SUPPLEMENTATION. 3 Nov 03, 2020 [id number] Apr 23, 2020 THOM CHAMBERS [facility] [place] CYANOCOBALAMIN 1000MCG/ML INJ Discontinued INJECT 100 0 MCG (1 ML) INTRAMUSCULARLY EVERY MONTH FOR B12 SUPPLEMENTATION. 3 Nov 17 0 [id number] Aug 07, 2019 [facility] DIPHENHYDRAMINE HCL 25MG CAP Non-VA TAKE 1 CAPSULE BY MOUTH PRN Non-VA Documented by: THOM CHAMBERS Docume nted at: [facility] DOCUSATE NA 100MG CAP No n-VA TAKE 2 CAPSULES BY MOUTH ONCE A DAY Non-VA Documented by: THOM CHAMBERS Docume nted at: [facility] FISH OIL 1000MG (500MG DHA/EPA) CAP,ORAL Non-VA TAKE 1 CAPSULE BY MOUTH ONCE A DAY Non-VA Documented by: MEGAN HAWK Docume nted at: [facility] DIV GABAPENTIN 100MG CAP Active TAKE 1 CAPSULE BY M OUTH EVERY MORNING AND TAKE 1 CAPSULE BY MOUTH AT NOON AND TAKE 2 CAPSULES BY MOUTH AT BEDTIME 360 Jul 06, 2020 [id number] March 31, 2020 BALTRELEUTERIO ROJAS L [facility] [place] GLUCAGON 1MG/GABRIELLA INJ,EMERGENCY KIT INJEC T 1MG SUBCUTANEOUSLY NEEDED FOR SEVERE HYPOGLYCEMIA 1 Nov 30, 2019 [id number] Nov 03, 2019 TERRIE CHAMBERSMERGED WITH [facility] [place] [facility] INSULIN,ASPART,HUMAN 100U/ML,NOVOLOG,FLEXPEN,3ML Active: On Hold INJECT 20 UNITS SUBCUTANEOUSLY BEFORE BREAKFAST AND INJECT 20 UNITS BEFORE LUNCH AND INJECT 26 UNITS BEFORE SUPPER AND INJECT 24 UNITS SNACK FOR BLOOD SUGAR CONTROL. ADMINISTER 10 MINUTES BEFORE FOOD DIRECTED. REFRIGERATE UN-OPENED PENS. DISCARD CARTRIDGE 28 DAYS AFTER OPENING. PLUS CORRECTION Mar 01, 2021 [id number] [facility] [place] [facility] INSULIN,ASPART,HUMAN 100U/ML,NOVOLOG,FLEXPEN,3ML Discontinue d INJECT 20 UNITS SUBCUTANEOUSLY BEFORE BREAKFAST AND INJECT 20 UNITS BEFORE LUNCH AND INJECT 24 UNITS BEFORE SUPPER AND INJECT 24 UNITS SNACK FOR BLOOD SUGAR CONTROL. ADMINISTER 10 MINUTES BEFORE FOOD DIRECTED. REFRIGERATE UN-OPENED PENS. DISCARD CARTRIDGE 28 DAYS AFTER OPENING. PLUS CORRECTION 30 Jan 26, 2021 [id number] Jan 28, 2020 [facility] [place] [facility] INSULIN,ASPART,HUMAN 100U/ML,NOVOLOG,FLEXPEN,3ML Discontinue d INJECT 20 UNITS SUBCUTANEOUSLY BEFORE MEALS FOR BLOOD SUGAR CONTROL. ADMINISTER 10 MINUTES BEFORE FOOD DIRECTED. REFRIGERATE UN-OPENED PENS. DISCARD CARTRIDGE 28 DAYS AFTER OPENING. PLUS CORRECTION FOR BLOOD SUGAR CONTROL. ADMINISTER 10 MINUTES BEFORE FOOD DIRECTED. REFRIGERATE UN-OPENED PENS. DISCARD CARTRIDGE 28 DAYS AFTER OPENING. PLUS CORRECTION Nov 16, 2020 [id number] Nov 16 [facility] [place] INSULIN,ASPART,HUMAN 100U/ML,NOVOLOG,FLEXPEN,3ML Discontinue d INJECT 15 UNITS SUBCUTANEOUSLY EVERY MORNING BEFORE MEAL AND INJECT 15 UNITS WITH LUNCH AND INJECT 15 UNITS WITH SUPPER AND INJECT 20 UNITS WITH SNACK FOR BLOOD SUGAR CONTROL. ADMINISTER 10 MINUTES BEFORE FOOD DIRECTED. REFRIGERATE UN-OPENED PENS. DISCARD CARTRIDGE 28 DAYS AFTER OPENING. Dec 22, 2019 5 [id number] Oct 12, 2019 [facility] [place] INSULIN,GLARGINE,HUMAN 100 UNIT/ML INJ,SOLOSTAR,3ML Active INJECT 50 UNITS SUBCUTANEOUSLY EVERY MORNING FOR BLOOD SUGAR CONTROL. ADMINISTER AT SAME TIME EACH DAY DIRECTED. DISCARD ANY OPEN CARTRIDGE AFTER 28 DAYS. Sep 23, 2020 [id number] Jan 28, 2020 [facility] [place] [facility] INSULIN,GLARGINE,HUMAN 100 UNIT/ML INJ,SOLOSTAR,3ML Disconti nued INJECT 45 UNITS SUBCUTANEOUSLY EVERY MORNING FOR BLOOD SUGAR CONTROL. ADMINISTER AT SAME TIME EACH DAY DIRECTED. DISCARD ANY OPEN CARTRIDGE AFTER 28 DAYS. Oct 23, 2019 [id number] Aug 30, 2019 ELEUTERIO LIVINGSTON [facility] [place] LACTOBACILLUS ACIDOPHILUS TAB,CHEWABLE Non-VA CHEW ONE TABLET BY MOUTH ONCE A DAY Non-VA Documented by: MEGAN [facility]WK [facility] LANCET,SOFTCLIX Active USE LANCET 5 TIME S A DAY FOR TESTING BLOOD GLUCOSE DIRECTED 500 Dec 28, 2020 [id number] March 19, 2020 LYNDATRUSAELEUTERIO QUIGLEY [facility] [place] LANCET,SOFTCLIX Discontinued USE LANCET 5 TIME S A DAY FOR TESTING BLOOD GLUCOSE DIRECTED 500 Jan 11, 2020 [id number] Sep 29, 2019 [facility]IO [facility] MAGNESIUM OXIDE 400MG TAB Non-VA TAKE ONE TABLET BY MOUTH ONCE A DAY Non-VA Documented by: MEGAN [facility]WKed at[facility] METOPROLOL SUCCINATE 200MG TAB,SA TAKE O NE-HALF TABLET BY MOUTH EVERY EVENING FOR HEART/BLOOD PRESSURE. SWALLOW WHOLE, DO NOT CRUSH OR CHEW (TABLETS MAY BE CUT IN HALF). 45 March 18, 2020 [id number] Dec 28, 2019 STANISLAV HAMMER [facility] NEEDLE 22G 1.5IN USE NEEDLE FOR EVERY MONTH 1 Nov 12, 2019 [id number] Feb 07, 2019 ADELAIDA CLIFFORD [facility] [place] NEEDLE,PEN 31G,5MM Discontinued USE NEEDLE SUBCUTANE OUSLY 5 TIMES A DAY - THIS IS A SINGLE USE NEEDLE AND SHOULD BE DISCARDED AFTER USE 500 Dec 21, 2019 [id number] Sep 28, 2019 ELEUTERIO LIVINGSTON Laron [facility] [place] [facility] POTASSIUM CHLORIDE 10MEQ TAB,SA Active TAKE TWO TABLETS BY MOUTH TWO TIMES A DAY FOR POTASSIUM SUPPLEMENTATIONTAKE WITH FOOD 360 Dec 12, 2020 [id number] Mar 02, 2020 YANELY QUINTERO [facility] [place] 15 POTASSIUM CHLORIDE 10MEQ TAB,SA Discontinued TAKE ONE TABLET BY MOUTH THREE TIMES A DAY WITH MEALS FOR POTASSIUM SUPPLEMENTATIONTAKE WITH FOOD 180 March 16, 2020 [id number] Nov 29, 2019 BALELEUTERIO KONG Laron [facility] [place] POTASSIUM CHLORIDE 10MEQ TAB,SA Discontinued TAKE ONE TABLET BY MOUTH THREE TIMES A DAY WITH MEALS FOR POTASSIUM SUPPLEMENTATIONTAKE WITH FOOD 180 May 26, 2019 [id number] Jan 24, 2019 YANELY QUINTERO [facility] [place] SYRINGE 2.5-3ML/NDL 25G 1IN Active USE 1 SYRINGE EVERY MONTH 3 Feb 21, 2021 [id number] March 20, 2020 [facility] SYRINGE 2.5-3ML/NDL 25G 1IN Discontinued USE 1 SYRINGE EVERY Thu 3 March 18, 2020 [id number] Dec 21, 2019 [facility] TESTOSTERONE CYPIONATE 200MG/ML INJ,1ML (IN OIL) Active INJECT 200 MG (1 ML) INTRAMUSCULARLY EVERY MONTH FOR HORMONE REPLACEMENT 1 May 18, 2020 [id number] April 06, 2020 ADELAIDA CLIFFORD [facility] [place] TESTOSTERONE CYPIONATE 200MG/ML INJ,1ML (IN OIL) Discontinue d INJECT 200 MG (1 ML) INTRAMUSCULARLY EVERY MONTH FOR HORMONE REPLACEMENT March 25, 2020 [id number] Oct 25, 2019 ADELAIDA CLIFFORD [facility] [place] TESTOSTERONE CYPIONATE 200MG/ML INJ,1ML (IN OIL) Discontinue d INJECT 200 MG (1 ML) INTRAMUSCULARLY EVERY MONTH FOR HORMONE REPLACEMENT 1 Nov 06, 2019 [id number] Sep 25, 2019 ADELAIDA CLIFFORD [facility] [place] TESTOSTERONE CYPIONATE 200MG/ML INJ,1ML (IN OIL) Discontinue d INJECT 200 MG (1 ML) INTRAMUSCULARLY EVERY MONTH FOR HORMONE REPLACEMENT 1 May 14, 2019 [id number] Apr 10, 2019 ADELAIDA CLIFFORD [facility] [place] DIV TRAMADOL HCL 50MG TAB Active TAKE 1 TO 2 TABLET S BY MOUTH EVERY 6 HOURS NEEDED FOR PAIN 180 Jul 21, 2020 [id number] March 30, 2020 [facility] [place] TRAMADOL HCL 50MG TAB Discontinued TAKE 1 TO 2 TABLET S BY MOUTH EVERY 6 HOURS NEEDED FOR PAIN 180 Jun 06, 2020 [id number] Jan 11, 2020 [facility] TRAMADOL HCL 50MG TAB Discontinued TAKE 1 TO 2 TABLET S BY MOUTH EVERY 6 HOURS NEEDED FOR PAIN 180 Jun 06, 2020 [id number] Dec 06, 2019 [facility] [place] 15 TRAMADOL HCL 50MG TAB Discontinued TAKE 1 TO 2 TABLET S BY MOUTH EVERY 6 HOURS NEEDED FOR PAIN 180 Dec 14, 2019 [id number] Nov 15, 2019 ABRAMDANTE AYDE [facility] [place] TRAMADOL HCL 50MG TAB Discontinued TAKE 1 TO 2 TABLET S BY MOUTH EVERY 6 HOURS NEEDED FOR PAIN 180 Jul 06, 2019 [id number] May 26, 2019 NELLA GROVE [facility] [place] TRIAMCINOLONE ACETONIDE 0.5% CREAM,TOP Active A PPLY SPARINGLY TO AFFECTED AREA ONCE A DAY NEEDED FOR RASH 45 Jul 15, 2020 [id number] April 01 0 THOM CHAMBERS [facility] [place] TRIAMCINOLONE ACETONIDE 0.5% CREAM,TOP Discontinued A PPLY SPARINGLY TO AFFECTED AREA ONCE A DAY NEEDED FOR RASH 45 Oct 12, 2019 [id number] Jul THOM CHAMBERS [facility] [place] Problems (Conditions): All historical and current Section Date Range: From patient's date of to the date document was create d. This section includes a list of Problems (Conditions) know n to [place] for the patient. It includes both active and inacti ve problems (conditions). The data comes from all [place] treatment facilities. Problem Status Problem Code Date of Onset Date of Resolution Comm ent(s) Provider Source Basal cell carcinoma of scalp Active [id number] THOM CHAMBERS [facility] [place] Chronic back pain Active [id number] TERRIE CHAMBERS [facility] [place] Chronic kidney disease stage 3 Active [id number] THOM CHAMBERS [facility] [place] [facility] Constipation Active 24123430 TH[facility] CHAMBERS [facility] [place] Diabetes mellitus Active 38227139 THOM CHAMBERS [facility] [place] Diabetic neuropathy Active [id number] Neha CHAMBERS [facility] [place] [facility] Essential hypertension Active 59770004 THOM CHAMBERS [facility] [place] Hyperlipidemia Active 24894038 THOM CHAMBERS EA [facility] [place] Hypogonadism Active 45192079 THOM CHAMBERS [facility] [place] Sleep apnea Active 20778435 THOM CHAMBERS RN [facility] Radiology Reports: +/- 30 days of the encounter No Data Provided for This Section Pathology Reports: +/- 30 days of the encounter No Data Provided for This Section Encounter Notes: All associated encounter notes This section contains the clinical notes associated to the Encounter. Date/Time Encounter Note(s) Provider Source Jun 24, 2019 03:19 PM CARE MANAGEMENT NOTE: LOCAL TITLE: EK-PACT CARE MANAGEMENT STANDARD TITLE: CARE MANAGEMENT NOTE DATE OF NOTE: JUN 24, 2019@15:19 ENTRY DATE: JUN 24, 2019@15:20 AUTHOR: ALLA NARAYANAN EXP COSIGNER: URGENCY: STATUS: COMPLETED PC from t asking if he has a [facility] pcp, can he still get lab from the [place]. If so, he is going to ask Dr. Grove to fax the lab orders to the [place]. He was informed that lab can still be done at [place]. He v/u. /noa/ ALLA NARAYANAN RN Signed: 06/24/2019 15:21 ALLA NARAYANAN [facility]
--- OUTSIDE RECORDS SUMMARY | 2020-04-18 10:16 | XMS REPORT | Encounter Summary ---
Author Author Department of [facility] SIMI palacio Organization Department of [facility] Address [address] [place] [id number] Phone Unavailable Care Team Providers Care Linesperson Name Role Phone THOM CHAMBERS PCP Unavailable [...] [employer] MED REP (R) MEDICARE ADVANTAGE [facility]) Nov 09, 2017 [id number] [phone] SIMI COVARRUBIAS PATIENT [employer] REP (WNR) MEDICARE [facility] (R) Nov 09, 2017 [id number] [phone] SIMI COVARRUBIAS PATIENT [employer] MCR (WNR) MEDICARE ADVANTAGE MCR (R) Nov 09, 2019 [id number] SIMI COVARRUBIAS PATIENT Selected Encounter This section includes the information on record at [place] for the Encounter. Date/Time Encounter Type Encounter Description Reason Provider Source Jun 30, 2019 10:00 AM OFFICE/OUTPATIENT VISIT EST PRIMARY CARE/M EDICINE ICD-10-CM R86.1 Abn lev hormones in specimens from male genital organs with Provider Comments: Hypogonadism (SCT [id number]) THOM CHAMBERS [facility] IHE Encounter Template Text not used by [place] Assessments - Encounter Diagnoses This section includes the primary and secondary diag noses documented for the Encounter. Date/Time Primary/Secondary Diagnosis Diagnosis Name Provider Source Jun 30, 2019 10:22 AM PRIMARY Abn lev hormones i n specimens from male genital organs REMY RODRIGUEZ [facility] Plan of Treatment: Future Appointments (+ [...] 07, 2019 11:45 AM AMBULATORY - MEDICINE [facility] Jul 14, 2019 11:00 AM [facility]ORY - NONE [facility] [place] [facility] Jul 28, 2019 10:00 AM AMBULATORY - NONE [facility] Aug 04, 2019 11:00 AM [facility] NONE [facility] [place] [facility] Aug 16, 2019 01:00 PM AMBULATORY - NONE [facility] [place] [facility] Aug 25, 2019 10:00 AM AMBULATORY - NONE [facility] Sep 15, 2019 12:00 PM AMBULATORY - MEDICINE [facility] [place] Sep 22, 2019 10:00 AM AMBULATORY - NONE [facility] Sep 23, 2019 11:00 AM [facility] NONE [facility] [place] [facility] Oct 17, 2019 03:00 PM AMBULATORY - NONE [facility] [place] [facility] Oct 20, 2019 10:00 AM AMBULATORY - NONE [facility] Nov 10, 2019 12:00 PM AMBULATORY - MEDICINE [facility] [place] Nov 16, 2019 02:00 PM [facility] - SURGERY [facility] [place] [facility] Nov 16, 2019 03:00 PM [facility] NONE [facility] [place] [facility] Nov 17, 2019 10:00 AM AMBULATORY - NONE [facility] Dec 01, 2019 11:30 AM AMBULATORY - MEDICINE [facility] [place] Dec 14, 2019 03:00 PM [facility] NONE [facility] [place] [facility] Dec 15, 2019 01:00 PM AMBULATORY - NONE [facility] Surgical Procedures: All associated to [...] Range Comment Jul 07, 2019 09:11 AM [facility] PTH INTACT Specimen Type: PLASMA No comment entered. PTH INTACT 45.8 pg/mL 8.7-77.7 Jul 07, 2019 09:11 AM [facility] CBC & DIFF Specimen Type: BLOOD [...] 0.8 % Jul 07, 2019 09:11 AM [facility] URINALYSIS Specimen Type: URINE No comment [...] Trace /HPF Jul 07, 2019 09:11 AM [facility] MAGNESIUM (mg/dL) Specimen Type: PLASMA No comment entered. MAGNESIUM (mg/dL) 1.8 mg/dl 1.6-2.6 Jul 07, 2019 09:11 AM [facility] URIC ACID (mg/dL) Specimen Type: PLASMA No comment entered. URIC ACID (mg/dL) 6.7 mg/dL 3.5-7.2 Jul 07, 2019 09:11 AM [facility] VITAMIN D (25-OH) Specimen Type: SERUM No comment entered. VITAMIN D (25-OH) 42.9 ng/mL 30.0-96.0 Jul 07, 2019 09:11 AM [facility] MICROALBUMIN (CO,EK) Specimen Type: URINE No comment entered. *MICROALBUMIN(CONC) 46.6 mg/dL - *MICROALBUMIN(SPOT) 158 mcg/mg cr HH 0-29 *CREATININE mg/dL 295.0 mg/dl Not Avail. Jul 07, 2019 09:11 AM [facility] HEPATIC FUNCTION PANE L Specimen Type: PLASMA No comment entered. PROTEIN,TOTAL 6.1 g/dL 6.0-8.6 ALBUMIN 3.9 g/dl 3.4-5.0 TOTAL BILIRUBIN 0.4 mg/dL 0.2-1.2 DIRECT BILIRUBIN 0.2 mg/dL 0-0.5 ASPARTATE TRANSAMINASE 29 U/L 5-34 ALANINE AMINOTRANSFERASE 24 U/L 8-40 ALKALINE PHOSPHATASE 91 U/L 40-150 Jul 07, 2019 09:11 AM [facility] RENAL FUNCTION PANEL Specimen Type: PLASMA [...] 07, 2019 09:11 AM [facility] TABOLIC PANEL Specimen Type: PLASMA [...] in Height Weight Body Mass Index Source Jun 30, 2019 09:58 AM 122/62 mm[Hg] [facility] Jun 30, 2019 09:46 AM 97.6 F 46 /min 132/68 mm[Hg] 18 /min 93 % 5 172.4 lb 29 [facility] Immunizations: All administered on the encounter date No Data Provided for This Section Social History: Smoking Status (Most current) and Tobacco Use (All prior to enco unter date) This section includes the most current, and the historical, smoking and tobacco- related health factors from the [place] facility where the Encounter took place. Current Smoking Status This section includes the most current smoking, or tobacco -related health factor, from the [place] facility where the Encounter took place. Date/Time Current Smoking Status Comment Facility Nov 03, 2018 07:59 AM VA-TOBACCO QUIT 15 YRS OR MORE [facility] Tobacco Use History This section includes a history of the smoking, or tobacco -related health factors, that were collected on or before the date of the Encoun ter. The data comes from the [place] facility where the Encounter took place. Date/Time Smoking Status/Tobacco Use Comment Madeline monroy Nov 03, 2018 07:59 AM VA-TOBACCO QUIT 15 YRS OR MORE [facility] Oct 23, 2017 07:35 AM TOBACCO LIFETIME NON-USER [facility] Advance Directives: All historical and current [...] impairment [facility], VISN 15 METFORMIN Dec 01, 2017 Propensity to adverse reactions to drug (disorder) Renal impairment [facility] VIS 15 Medications: VA dispensed (-15 months) and Non-VA Documented (Obtained Outside A) Section Date Range: 1) prescriptions processed by a VA pharmacy in the last 15 m [facility], and 2) all medications recorded [...] TIMES A DAY 400 Sep 12, 2020 [id number] Feb 29, 2020 BALTRUSAREGGIE QUIGLEY [facility] ACCU-CHEK ROSINA PLUS (GLUCOSE) TEST STRIP Discontinued USE 1 STRIP FOR TESTING FOUR TIMES A DAY 400 Sep 15, 2019 [id number] Jun 13, 2019 BALANGELIKAUSAELEUTERIO QUICK [facility] ALCOHOL PREP PAD Discontinued USE 1 PAD ON SKIN FOUR TIMES A DAY 40 0 Apr 25, 2020 [id number] Nov 29, [address] [facility] [place] ALCOHOL PREP PAD Discontinued USE 1 PAD ON SKIN FOUR TIMES A DAY 40 0 Sep 15, 2019 [id number] Apr 18, 2019 ELEUTERIO [facility]IV[place] [facility] ALLOPURINOL 100MG TAB Active TAKE ONE TABLET BY MOUTH ONCE A DAY FOR GOUT. TAKE WITH PLENTY OF WATER 90 Sep 23, 2020 [id number] Mar 05, 2020 SILVINA CHAMBERS [facility] [place] ALLOPURINOL 100MG TAB Discontinued TAKE ONE TABLET BY MOUTH ONCE A DAY FOR GOUT. TAKE WITH PLENTY OF WATER 90 Dec 30, 2019 [id number] Sep 17, 2019 THOM SOLIS [facility] [place] [facility] ALOGLIPTIN 12.5MG TAB Active TAKE ONE TABLET BY MOUTH O NCE A DAY FOR DIABETES 90 Sep 12, 2020 [id number] Mar 04, 2020 ELEUTERIO [place] [facility] [place] ALOGLIPTIN 12.5MG TAB Discontinued TAKE ONE TABLET BY MOUTH ONCE A DAY FOR DIABETES 90 Dec 22, 2019 [id number] Jun 18, 2019 ELEUTERIO LIV[place] [facility] [place] AMLODIPINE BESYLATE 10MG TAB Discontinued TAKE ONE TA BLET BY MOUTH EVERY MORNING FOR HEART/BLOOD PRESSURE 90 Jun 10, 2019 [id number] Feb 25, 2019 MONIKA RIVERA [facility] [place] AMLODIPINE BESYLATE 10MG TAB TAKE ONE TA BLET BY MOUTH EVERY MORNING FOR HEART/BLOOD PRESSURE 90 Apr 12, 2020 [id number] Feb 10, 2020 SILVINA CHAMBERS [facility] ASPIRIN 81MG TAB,CHEWABLE Non-VA CHEW ONE TABLET BY MOUTH ONCE A DAY Non-VA Documented by: MEGAN HAWK Docume nted at: [facility] ATORVASTATIN CA 20MG TAB Active TAKE ONE TABLET BY MOUTH ONCE A DAY FOR CHOLESTEROL. REPORT ANY UNEXPLAINED MUSCLE PAIN OR WEAKNESS TO YOUR DOCTOR. 90 Jan 02, 2021 [id number] March 24, 2020 [facility], V[facility] 15 ATORVASTATIN CA 40MG TAB Discontinued TAKE ONE-HALF T ABLET BY MOUTH AT BEDTIME FOR CHOLESTEROL. REPORT ANY UNEXPLAINED MUSCLE PAIN OR WEAKNESS TO YOUR DOCTOR. 45 Jul 15, 2020 [id number] Oct 14, 2019 THOM CHAMBERS [facility] [place] ATORVASTATIN CA 40MG TAB Discontinued TAKE ONE-HALF T ABLET BY MOUTH AT BEDTIME FOR CHOLESTEROL. REPORT ANY UNEXPLAINED MUSCLE PAIN OR WEAKNESS TO YOUR DOCTOR. 45 Oct 12, 2019 [id number] Jul 16, 2019 THOM CHAMBERS [facility] [place] CALCIUM CARBONATE 500MG TAB,CHEWABLE Non-VA CHEW ONE TABLET BY MOUTH PRN Non-VA Documented by: THOM CHAMBERS Docume nted at: [facility] CHLORTHALIDONE 25MG TAB Active TAKE ONE TABLET BY MOUTH ONCE A DAY 90 Jul 01, 2020 [id number] March 19, 2020 MONIKA HAMMER [facility] [place] [facility] CHLORTHALIDONE 25MG TAB Discontinued TAKE ONE TABLET BY MOUTH ONCE A DAY 90 Jun 16, 2019 [id number] Apr 12, 2019 MONIKA HAMMER [facility] [place] [facility] CHOLECALCIFEROL 1000UNT TAB Non-VA TAKE ONE TABLET BY MOUTH EVERY OTHER DAY Non-VA Docume nted by: MEGAN HAWK Docume nted at: [facility] CYANOCOBALAMIN 1000MCG/ML INJ Active INJECT 100 0 MCG (1 ML) INTRAMUSCULARLY EVERY MONTH FOR B12 SUPPLEMENTATION. 3 Nov 03, 2020 [id number] Apr 23, 2020 THOM CHAMBERS [facility] [place] CYANOCOBALAMIN 1000MCG/ML INJ Discontinued INJECT 100 0 MCG (1 ML) INTRAMUSCULARLY EVERY MONTH FOR B12 SUPPLEMENTATION. 3 Nov 17 0 [id number] Aug 07, 2019 [facility] CHAMBERS [facility] [place] [facility] DIPHENHYDRAMINE HCL 25MG CAP Non-VA TAKE 1 CAPSULE BY MOUTH PRN Non-VA Documented by: THOM CHAMBERSume nted at: [facility] DOCUSATE NA 100MG CAP No n-VA TAKE 2 CAPSULES BY MOUTH ONCE A DAY Non-VA Documented by: THOM CHAMBERS Docume nted at: [facility] FISH OIL 1000MG (500MG DHA/EPA) CAP,ORAL Non-VA TAKE 1 CAPSULE BY MOUTH ONCE A DAY Non-VA Documented by: MEGAN HAWK Docume nted at: [facility] GABAPENTIN 100MG CAP Active TAKE 1 CAPSULE BY M OUTH EVERY MORNING AND TAKE 1 CAPSULE BY MOUTH AT NOON AND TAKE 2 CAPSULES BY MOUTH AT BEDTIME 360 Jul 06, 2020 [id number] March 31, [address] [facility] [place] [facility] GLUCAGON 1MG/GABRIELLA INJ,EMERGENCY KIT INJEC T 1MG SUBCUTANEOUSLY NEEDED FOR SEVERE HYPOGLYCEMIA 1 Nov 30, 2019 [id number] Nov 03, 2019 [facility] [place] [facility] INSULIN,ASPART,HUMAN 100U/ML,NOVOLOG,FLEXPEN,3ML Active: On Hold INJECT 20 UNITS SUBCUTANEOUSLY BEFORE BREAKFAST AND INJECT 20 UNITS BEFORE LUNCH AND INJECT 26 UNITS BEFORE SUPPER AND INJECT 24 UNITS SNACK FOR BLOOD SUGAR CONTROL. ADMINISTER 10 MINUTES BEFORE FOOD DIRECTED. REFRIGERATE UN-OPENED PENS. DISCARD CARTRIDGE 28 DAYS AFTER OPENING. PLUS CORRECTION Mar 01, 2021 [id number] ELEUTERIO LIVINGSTON [facility] [place] [facility] INSULIN,ASPART,HUMAN 100U/ML,NOVOLOG,FLEXPEN,3ML Discontinue d INJECT 20 UNITS SUBCUTANEOUSLY BEFORE BREAKFAST AND INJECT 20 UNITS BEFORE LUNCH AND INJECT 24 UNITS BEFORE SUPPER AND INJECT 24 UNITS SNACK FOR BLOOD SUGAR CONTROL. ADMINISTER 10 MINUTES BEFORE FOOD DIRECTED. REFRIGERATE UN-OPENED PENS. DISCARD CARTRIDGE 28 DAYS AFTER OPENING. PLUS CORRECTION Jan 26, 2021 [id number] Jan 28, 2020 ELEUTERIO LIVING[place]ON [facility] [place] [...] OPENING. PLUS CORRECTION 30 Nov 16, 2020 [id number] Nov 16 20 ELEUTERIO LIV[place] [facility] [place] [facility] INSULIN,ASPART,HUMAN 100U/ML,NOVOLOG,FLEXPEN,3ML Discontinue d INJECT 15 UNITS SUBCUTANEOUSLY EVERY MORNING BEFORE MEAL AND INJECT 15 UNITS WITH LUNCH AND INJECT 15 UNITS WITH SUPPER AND INJECT 20 UNITS WITH SNACK FOR BLOOD SUGAR CONTROL. ADMINISTER 10 MINUTES BEFORE FOOD DIRECTED. REFRIGERATE UN-OPENED PENS. DISCARD CARTRIDGE 28 DAYS AFTER OPENING. Dec 22, 2019 5 [id number] Oct 12, 2019 ELEUTERIO LIV[place] [facility] [place] [facility] INSULIN,GLARGINE,HUMAN 100 UNIT/ML INJ,SOLOSTAR,3ML Active INJECT 50 UNITS SUBCUTANEOUSLY EVERY MORNING FOR BLOOD SUGAR CONTROL. ADMINISTER AT SAME TIME EACH DAY DIRECTED. DISCARD ANY OPEN CARTRIDGE AFTER 28 DAYS. Sep 23, 2020 [id number] Jan 28, 2020 ELEUTERIO LIV[place] [facility] [place] [facility] INSULIN,GLARGINE,HUMAN 100 UNIT/ML INJ,SOLOSTAR,3ML Disconti nued INJECT 45 UNITS SUBCUTANEOUSLY EVERY MORNING FOR BLOOD SUGAR CONTROL. ADMINISTER AT SAME TIME EACH DAY DIRECTED. DISCARD ANY OPEN CARTRIDGE AFTER 28 DAYS. Oct 23, 2019 [id number] Aug 30, 2019 [facility] [place] [facility] LACTOBACILLUS ACIDOPHILUS TAB,CHEWABLE Non-VA CHEW ONE TABLET BY MOUTH ONCE A DAY Non-[place] Documented by: MEGAN HAWK nted at: [facility] LANCET,SOFTCLIX Active USE LANCET 5 TIME S A DAY FOR TESTING BLOOD GLUCOSE DIRECTED 500 Dec 28, 2020 [id number] March 19, 2020 [facility] [place] [facility] LANCET,SOFTCLIX Discontinued USE LANCET 5 TIME S A DAY FOR TESTING BLOOD GLUCOSE DIRECTED 500 Jan 11, 2020 [id number] Sep 29, 2019 YAYA ITISELEUTERIO [facility] [place] [...] CUT IN HALF). 45 March 18, 2020 [id number] Dec 28, 2019 STANISLAV HAMMER [facility] NEEDLE 22G 1.5IN USE NEEDLE FOR EVERY MONTH 1 Nov 12, 2019 [id number] Feb 07, 2019 ADELAIDA CLIFFORD [facility] [place] NEEDLE,PEN 31G,5MM Discontinued USE NEEDLE SUBCUTANE OUSLY 5 TIMES A DAY - THIS IS A SINGLE USE NEEDLE AND SHOULD BE DISCARDED AFTER USE 500 Dec 21, 2019 [id number] Sep 28, 2019 ELEUTERIO LIV[place] [facility] [place] [facility] POTASSIUM CHLORIDE 10MEQ TAB,SA Active TAKE TWO TABLETS BY MOUTH TWO TIMES A DAY FOR POTASSIUM SUPPLEMENTATIONTAKE WITH FOOD 360 Dec 12, 2020 [id number] Mar 02, 2020 [facility], VISN 15 POTASSIUM CHLORIDE 10MEQ TAB,SA Discontinued TAKE ONE TABLET BY MOUTH THREE TIMES A DAY WITH MEALS FOR POTASSIUM SUPPLEMENTATIONTAKE WITH FOOD 180 March 16, 2020 [id number] Nov 29, [address] [facility] [place] [facility] POTASSIUM CHLORIDE 10MEQ TAB,SA Discontinued TAKE ONE TABLET BY MOUTH THREE TIMES A DAY WITH MEALS FOR POTASSIUM SUPPLEMENTATIONTAKE WITH FOOD 180 May 26, 2019 [id number] Jan 24, 2019 [facility] [place] [facility] SYRINGE 2.5-3ML/NDL 25G 1IN Active USE 1 SYRINGE EVERY MONTH 3 Feb 21, 2021 [id number] March 20, 2020 [facility] SYRINGE 2.5-3ML/NDL 25G 1IN Discontinued USE 1 SYRINGE EVERY Thu 3 March 18, 2020 [id number] Dec 21, 2019 [facility] TESTOSTERONE CYPIONATE 200MG/ML INJ,1ML (IN OIL) Active INJECT 200 MG (1 ML) INTRAMUSCULARLY EVERY MONTH FOR HORMONE REPLACEMENT 1 May 18, 2020 [id number] April 06, 2020 ADELAIDA CLIFFORD [facility] [place] [facility] TESTOSTERONE CYPIONATE 200MG/ML INJ,1ML (IN OIL) Discontinue d INJECT 200 MG (1 ML) INTRAMUSCULARLY EVERY MONTH FOR HORMONE REPLACEMENT March 25, 2020 [id number] Oct 25, 2019 ADELAIDA CLIFFORD [facility] [place] [facility] TESTOSTERONE CYPIONATE 200MG/ML INJ,1ML (IN OIL) Discontinue d INJECT 200 MG (1 ML) INTRAMUSCULARLY EVERY MONTH FOR HORMONE REPLACEMENT 1 Nov 06, 2019 [id number] Sep 25, 2019 ADELAIDA CLIFFORD [facility] [place] [facility] TESTOSTERONE CYPIONATE 200MG/ML INJ,1ML (IN OIL) Discontinue d INJECT 200 MG (1 ML) INTRAMUSCULARLY EVERY MONTH FOR HORMONE REPLACEMENT 1 May 14, 2019 [id number] Apr 10, 2019 ADELAIDA CLIFFORD [facility] TRAMADOL HCL 50MG TAB Active TAKE 1 TO 2 TABLET S BY MOUTH EVERY 6 HOURS NEEDED FOR PAIN 180 Jul 21, 2020 [id number] March 30, 2020 NELLA GROVE [facility], VISN 15 TRAMADOL HCL 50MG TAB Discontinued TAKE 1 TO 2 TABLET S BY MOUTH EVERY 6 HOURS NEEDED FOR PAIN 180 Jun 06, 2020 [id number] Jan 11, 2020 ROSSY GROVE [facility], VISN 15 TRAMADOL HCL 50MG TAB Discontinued TAKE 1 TO 2 TABLET S BY MOUTH EVERY 6 HOURS NEEDED FOR PAIN 180 Jun 06, 2020 [id number] Dec 06, 2019 ROSSY GROVE [facility] V[facility] 15 TRAMADOL HCL 50MG TAB Discontinued TAKE 1 TO 2 TABLET S BY MOUTH EVERY 6 HOURS NEEDED FOR PAIN 180 Dec 14, 2019 [id number] Nov 15, 2019 DANTE VALVERDE [facility] [place] [facility] TRAMADOL HCL 50MG TAB Discontinued TAKE 1 TO 2 TABLET S BY MOUTH EVERY 6 HOURS NEEDED FOR PAIN 180 Jul 06, 2019 [id number] May 26, 2019 [place] [facility] [place] [facility] TRIAMCINOLONE ACETONIDE 0.5% CREAM,TOP Active A PPLY SPARINGLY TO AFFECTED AREA ONCE A DAY NEEDED FOR RASH 45 Jul 15, 2020 [id number] April 01 0 THOM CHAMBERS [facility] [place] [facility] TRIAMCINOLONE ACETONIDE 0.5% CREAM,TOP Discontinued A PPLY SPARINGLY TO AFFECTED AREA ONCE A DAY NEEDED FOR RASH 45 Oct 12, 2019 [id number] Jul REYESTHOMShellie MELLO [facility] [place] [facility] Problems (Conditions): All [...] Source Basal cell carcinoma of scalp Active [id number] TERRIE CHAMBERSShellie MELLO [facility] [place] [facility] Chronic back pain Active [id number] TERRIE CHAMBERS Shellie [facility] [place] [facility] Chronic kidney disease stage 3 Active [id number] REYESTHOM [facility] [place] [facility] Constipation Active 75905497 THOM CHAMBERS [facility] [facility] [place] [facility] Diabetes mellitus Active 50021618 TERRIE CHAMBERSA [facility] [place] [facility] Diabetic neuropathy Active 090215022 Neha CHAMBERS [facility] [place] [facility] Essential hypertension Active 77802667 TERRIE CHAMBERSA [facility] [place] [facility] Hyperlipidemia Active 70546347 THOM CHAMBERS EA [facility] [place] [facility] Hypogonadism Active 85363108 TERRIE CHAMBERSShellie [facility] [place] [facility] Sleep apnea Active 19164120 THOM CHAMBERS [facility] [place] [facility] Radiology Reports: +/- 30 days of the encounter No Data Provided for This Section Pathology Reports: +/- 30 days of the encounter No Data Provided for This Section Encounter Notes: All associated encounter notes This section contains the clinical notes associated to the Encounter. Date/Time Encounter Note(s) Provider Source Jun 30, 2019 09:50 AM NURSING OUTPATIENT NOTE: LOCAL TITLE: [facility]-NURSING CLINIC CHECK-IN STANDARD TITLE: NURSING OUTPATIENT NOTE DATE OF NOTE: JUN 30, 2019@09:50 ENTRY DATE: JUN 30, 2019@09:51:15 AUTHOR: BARBARA DUNCAN EXP COSIGNER: URGENCY: STATUS: COMPLETED PRIMARY REASON FOR VISIT TODAY: [place] for Testosterone injection. PATIENT'S GOAL/MISSION FOR THEIR HEALTH: "I want to at the very least is to maintain my health and maximum improve as much as possible." ALLERGIES/ADR: METFORMIN, LISINOPRIL VITALS: DATE/TIME TEMP PULSE RESP BP PAIN WEIGHT PUL OX 06/30/19 @ 0946 97.6 46 18 132/68 5 172.4 93 REPEAT BP:122/62 REPRODUCTIVE HISTORY: Concerns regardng sexual/reproductive health: None LEARNING ASSESSMENT: Patient's preferred language for discussing health care is: [place]an Today's learning assessment regarding patient's readiness to learn. Patient reads well. Barriers to Learning: Has no barriers to learning. Preferred Method of Learning: Reading Listening Seeing / Videos Demonstration Return Demonstration Hands On/Doing Education provided as per documentation below: SCREENING FOR PAIN STATUS: Patient reported pain level as 5 (06/30/2019 09:46) on 0 to 10 scale. Pain Scale used: Numerical Pain Scale Patient states current level of pain is: Acceptable Location of pain that most interferes with your life: Feet Characteristics of pain: PAIN QUALITY: Burning, Other: Pressure Verbal Education Provided: To patient, Pain prevention [...] medication refill requests and other non-urgent communication. N:Offer MOVE! Program: Discussed with patient the MOVE!/Weight Management Program. The following health risks of overweight/obesity were discussed: heart disease, diabetes, sleep apnea, hypertension, arthritis and certain cancers. Assessed patients readiness to begin weight management activities including the MOVE! Program. Patient offered enrollment into the MOVE!/Weight Management Program. Declined Weight Management (MOVE) Program. N:Pneumococcal PCV13 ([id number]): The patient declines to receive the recommended dose of pneumococcal conjugate vaccine PCV13 (Prevnar 13). Comment: Does not want to take at this time. OTHER OBSERVATION/INTERVENTION: Pt in clinic today for: Testosterone injection Pt [place]. Patient identity verified using 2 forms of ID: Name and Medication given: Testosterone 200 mg (1 ml) Order Verified:11/21/18 Route: IM Location: RIGHT GM Mfg: Vivorte Lot#: [id number] Exp: 12/2020 Dx: hypogonadism Initiated: Received locally until 01-07-19, then from the [place]. Pt rock injection w/o difficulty. PLAN: - RTC [place] injection clinic in 1 month: 07/28/19, - Copy of handout, "Keep Your Kidneys He althy" give to per his request. - Per 's request, a refill of freddie tosterone was completed by this radio news writer. DISPOSITION: To home at 1010 /noa/ BARBARA DUNCAN RN, BSN Signed: 06/30/2019 10:22 Receipt Acknowledged By: 06/30/2019 10:51 /noa/ BARBARA CARTY [facility]
--- OUTSIDE RECORDS SUMMARY | 2020-04-18 10:17 | XMS REPORT | Encounter Summary ---
Author Author Department [facility] SIMI palacio Organization Department of [facility] Address [address] [place] [address] Phone Unavailable Care Team Providers Care Cutting And Splicing Supervisor Name Role Phone REYES THOM PCP [...] FREEDOM MED REP (R) MEDICARE ADVANTAGE [facility] ([facility]) Nov 09, 2017 [id number] [phone] SIMI COVARRUBIAS PATIENT ADVANTRA FREEDOM MED REP (WNR) MEDICARE ADVANTAGE [facility] ([facility]) Nov 09, 2017 [id number] [phone] SIMI COVARRUBIAS PATIENT AETNA [facility] ([facility]) MEDICARE ADVANTAGE [facility] ([facility]) Nov 09, [phone] [id number] SIMI COVARRUBIAS PATIENT Selected Encounter This section includes the information on record at [place] for the Encounter. Date/Time Encounter Type Encounter Description Reason Provider Source Jun 23, 2019 08:41 AM Outpatient Encounter COMMUNITY CARE CONSULT [facility] [place] [facility] IHE Encounter Template Text not [...] Range Comment Jul 07, 2019 09:11 AM [facility] PTH INTACT Specimen Type: PLASMA No comment entered. PTH INTACT 45.8 pg/mL 8.7-77.7 Jul 07, 2019 09:11 AM [facility] CBC & DIFF Specimen Type: BLOOD No [...] 0.8 % Jul 07, 2019 09:11 AM [facility] URINALYSIS Specimen Type: URINE No comment entered. [...] Trace /HPF Jul 07, 2019 09:11 AM [facility] MAGNESIUM (mg/dL) Specimen Type: PLASMA No comment entered. MAGNESIUM (mg/dL) 1.8 mg/dl 1.6-2.6 Jul 07, 2019 09:11 AM [facility] URIC ACID (mg/dL) Specimen Type: PLASMA No comment entered. URIC ACID (mg/dL) 6.7 mg/dL 3.5-7.2 Jul 07, 2019 09:11 AM [facility] VITAMIN D (25-OH) Specimen Type: SERUM No comment entered. VITAMIN D (25-OH) 42.9 ng/mL 30.0-96.0 Jul 07, 2019 09:11 AM [facility] MICROALBUMIN (CO,EK) Specimen Type: URINE No comment entered. *MICROALBUMIN(CONC) 46.6 mg/dL - *MICROALBUMIN(SPOT) 158 mcg/mg cr HH 0-29 *CREATININE mg/dL 295.0 mg/dl Not Avail. Jul 07, 2019 09:11 AM [facility] HEPATIC FUNCTION PANE L Specimen Type: PLASMA No comment entered. PROTEIN,TOTAL 6.1 g/dL 6.0-8.6 ALBUMIN 3.9 g/dl 3.4-5.0 TOTAL BILIRUBIN 0.4 mg/dL 0.2-1.2 DIRECT BILIRUBIN 0.2 mg/dL 0-0.5 ASPARTATE TRANSAMINASE 29 U/L 5-34 ALANINE AMINOTRANSFERASE 24 U/L 8-40 ALKALINE PHOSPHATASE 91 U/L 40-150 Jul 07, 2019 09:11 AM [facility] RENAL FUNCTION PANEL Specimen Type: PLASMA No comment entered. *CREATININE 1.22 mg/dL 0.7-1.3 UREA NITROGEN mg/dL 13 mg/dL 9-25 GLUCOSE 152 mg/dL H 72-99 SODIUM 140 mEq/L 136-145 POTASSIUM 3.3 mEq/L L 3.5-5.0 CALCIUM (mg/dL) 9.7 mg/dL 8.4-10.4 PHOSPHORUS INORGANIC 3.5 mg/dL 2.3-4.7 ALBUMIN 3.9 g/dl 3.4-5.0 CHLORIDE 99 mEq/L 98-107 CO2 31 mEq/L 22-31 EGFR 58.2 Jul 07, 2019 09:11 AM [facility] TABOLIC PANEL Specimen Type: PLASMA No comment [...] Adverse Reactions (ADR s) on record with MS for the patient. The data comes from a ll [place] treatment facilities. It does not list Allergies/ADRs that were removed or entered in error. Some allergies/ADRs may be reported in t he Immunization section. Allergen Event Date Event Type Reaction(s) Severity Source LISINOPRIL Dec 01, 2017 Propensity to adverse reactions to drug (disorder) Renal impairment [facility] 15 METFORMIN Dec 01, 2017 Propensity to adverse reactions to drug (disorder) [facility] Medications: [facility] dispensed (-15 months) and Non-VA Documented (Obtained Outside V A) Section Date Range: 1) prescriptions processed by a [facility] pharmacy in the [facility], and 2) all medications recorded in [...] TIMES A DAY 400 Sep 12, 2020 [id number] Feb 29, 2020 [facility] ACCU-CHEK ROSINA PLUS (GLUCOSE) TEST STRIP Discontinued USE 1 STRIP FOR TESTING FOUR TIMES A DAY 400 Sep 15, 2019 [id number] Jun 13, 2019 [facility] ALCOHOL PREP PAD Discontinued USE 1 PAD ON SKIN FOUR TIMES A DAY 40 0 Apr 25, 2020 [id number] Nov 29, 2019 [facility] ALCOHOL PREP PAD Discontinued USE 1 PAD ON SKIN FOUR TIMES A DAY 40 0 Sep 15, 2019 [id number] Apr 18, 2019 BALTRUSADANNELEUTERIO Laron [facility] ALLOPURINOL 100MG TAB Active TAKE ONE TABLET BY MOUTH ONCE A DAY FOR GOUT. TAKE WITH PLENTY OF WATER 90 Sep 23, 2020 [id number] Mar 05, 2020 SILVINA CHAMBERS [facility] ALLOPURINOL 100MG TAB Discontinued TAKE ONE TABLET BY MOUTH ONCE A DAY FOR GOUT. TAKE WITH PLENTY OF WATER 90 Dec 30, 2019 [id number] Sep 17, 2019 THOM SHARPE [facility] ALOGLIPTIN 12.5MG TAB Active TAKE ONE TABLET BY MOUTH O NCE A DAY FOR DIABETES 90 Sep 12, 2020 [id number] Mar 04, 2020 BALTRUSAELEUTERIO QUIGLEY [facility] [place] [facility] ALOGLIPTIN 12.5MG TAB Discontinued TAKE ONE TABLET BY MOUTH ONCE A DAY FOR DIABETES 90 Dec 22, 2019 [id number] Jun 18, 2019 BALTRUSAELEUTERIO QUIGLEY [facility] AMLODIPINE BESYLATE 10MG TAB Discontinued TAKE ONE TA BLET BY MOUTH EVERY MORNING FOR HEART/BLOOD PRESSURE 90 Jun 10, 2019 [id number] Feb 25, 2019 MONIKA HAMMER [facility] AMLODIPINE BESYLATE 10MG TAB TAKE ONE TA BLET BY MOUTH EVERY MORNING FOR HEART/BLOOD PRESSURE 90 Apr 12, 2020 [id number] Feb 10, 2020 SILVINA CHAMBERS [facility] ASPIRIN 81MG TAB,CHEWABLE Non-VA CHEW ONE TABLET BY MOUTH ONCE A DAY Non-VA Documented by: MEGAN HAWK nted at: [facility] ATORVASTATIN CA 20MG TAB Active TAKE ONE TABLET BY MOUTH ONCE A DAY FOR CHOLESTEROL. REPORT ANY UNEXPLAINED MUSCLE PAIN OR WEAKNESS TO YOUR DOCTOR. 90 Jan 02, 2021 [id number] March 24, 2020 [facility] [place] 15 ATORVASTATIN CA 40MG TAB Discontinued TAKE ONE-HALF T ABLET BY MOUTH AT BEDTIME FOR CHOLESTEROL. REPORT ANY UNEXPLAINED MUSCLE PAIN OR WEAKNESS TO YOUR DOCTOR. 45 Jul 15, 2020 [id number] Oct 14, 2019 THOM CHAMBERS [facility] ATORVASTATIN CA 40MG TAB Discontinued TAKE ONE-HALF T ABLET BY MOUTH AT BEDTIME FOR CHOLESTEROL. REPORT ANY UNEXPLAINED MUSCLE PAIN OR WEAKNESS TO YOUR DOCTOR. 45 Oct 12, 2019 [id number] Jul 16, 2019 THOM CHAMBERS [facility] CALCIUM CARBONATE 500MG TAB,CHEWABLE Non-VA CHEW ONE TABLET BY MOUTH PRN Non-VA Documented by: THOM CHAMBERS nted at: [facility] CHLORTHALIDONE 25MG TAB Active TAKE ONE TABLET BY MOUTH ONCE A DAY 90 Jul 01, 2020 [id number] March 19, 2020 MONIKA HAMMER [facility] CHLORTHALIDONE 25MG TAB Discontinued TAKE ONE TABLET BY MOUTH ONCE A DAY 90 Jun 16, 2019 [id number] Apr 12, 2019 TIPMELODY HAWKINSRUTH Larry [facility] CHOLECALCIFEROL 1000UNT TAB Non-VA TAKE ONE TABLET BY MOUTH EVERY OTHER DAY Non-VA Docume nted by: MEGAN HAWK Docume nted at: [facility] CYANOCOBALAMIN 1000MCG/ML INJ Active INJECT 100 0 MCG (1 ML) INTRAMUSCULARLY EVERY MONTH FOR B12 SUPPLEMENTATION. 3 Nov 03, 2020 [id number] Apr 23, 2020 THOM CHAMBERS [facility] CYANOCOBALAMIN 1000MCG/ML INJ Discontinued INJECT 100 0 MCG (1 ML) INTRAMUSCULARLY EVERY MONTH FOR B12 SUPPLEMENTATION. 3 Nov 17 0 [id number] Aug 07, 2019 [facility] [place] DIPHENHYDRAMINE HCL 25MG CAP Non-VA TAKE 1 CAPSULE BY MOUTH PRN Non-VA Documented by: THOM CHAMBERS Docsammi nted at: [facility] DOCUSATE NA 100MG CAP No n-VA TAKE 2 CAPSULES BY MOUTH ONCE A DAY Non-VA Documented by: THOM CHAMBERS Docume nted at: [facility] FISH OIL 1000MG (500MG DHA/EPA) CAP,ORAL Non-VA TAKE 1 CAPSULE BY MOUTH ONCE A DAY Non-VA Documented by: MEGAN HAWK Docume nted at: [facility] GABAPENTIN 100MG CAP Active TAKE 1 CAPSULE BY M OUTH EVERY MORNING AND TAKE 1 CAPSULE BY MOUTH AT NOON AND TAKE 2 CAPSULES BY MOUTH AT BEDTIME 360 Jul 06, 2020 [id number] March 31, [address] [facility] [place] [facility] GLUCAGON 1MG/GABRIELLA INJ,EMERGENCY KIT INJEC T 1MG SUBCUTANEOUSLY NEEDED FOR SEVERE HYPOGLYCEMIA 1 Nov 30, 2019 [id number] Nov 03, 2019 THOM CHAMBERS [facility] INSULIN,ASPART,HUMAN 100U/ML,NOVOLOG,FLEXPEN,3ML Active: On Hold INJECT 20 UNITS SUBCUTANEOUSLY BEFORE BREAKFAST AND INJECT 20 UNITS BEFORE LUNCH AND INJECT 26 UNITS BEFORE SUPPER AND INJECT 24 UNITS SNACK FOR BLOOD SUGAR CONTROL. ADMINISTER 10 MINUTES BEFORE FOOD DIRECTED. REFRIGERATE UN-OPENED PENS. DISCARD CARTRIDGE 28 DAYS AFTER OPENING. PLUS CORRECTION Mar 01, 2021 [id number] ELEUTERIO LIVINGSTON [facility] INSULIN,ASPART,HUMAN 100U/ML,NOVOLOG,FLEXPEN,3ML Discontinue d INJECT 20 UNITS SUBCUTANEOUSLY BEFORE BREAKFAST AND INJECT 20 UNITS BEFORE LUNCH AND INJECT 24 UNITS BEFORE SUPPER AND INJECT 24 UNITS SNACK FOR BLOOD SUGAR CONTROL. ADMINISTER 10 MINUTES BEFORE FOOD DIRECTED. REFRIGERATE UN-OPENED PENS. DISCARD CARTRIDGE 28 DAYS AFTER OPENING. PLUS CORRECTION 30 Jan 26, 2021 [id number] Jan 28, [address] [facility] [place] INSULIN,ASPART,HUMAN 100U/ML,NOVOLOG,FLEXPEN,3ML Discontinue d INJECT 20 UNITS SUBCUTANEOUSLY BEFORE MEALS FOR BLOOD SUGAR CONTROL. ADMINISTER 10 MINUTES BEFORE FOOD DIRECTED. REFRIGERATE UN-OPENED PENS. DISCARD CARTRIDGE 28 DAYS AFTER OPENING. PLUS CORRECTION FOR BLOOD SUGAR CONTROL. ADMINISTER 10 MINUTES BEFORE FOOD DIRECTED. REFRIGERATE UN-OPENED PENS. DISCARD CARTRIDGE 28 DAYS AFTER OPENING. PLUS CORRECTION Nov 16, 2020 [id number] Nov 16 [facility] [place] [facility] INSULIN,ASPART,HUMAN 100U/ML,NOVOLOG,FLEXPEN,3ML Discontinue d INJECT 15 UNITS SUBCUTANEOUSLY EVERY MORNING BEFORE MEAL AND INJECT 15 UNITS WITH LUNCH AND INJECT 15 UNITS WITH SUPPER AND INJECT 20 UNITS WITH SNACK FOR BLOOD SUGAR CONTROL. ADMINISTER 10 MINUTES BEFORE FOOD DIRECTED. REFRIGERATE UN-OPENED PENS. DISCARD CARTRIDGE 28 DAYS AFTER OPENING. Dec 22, 2019 [id number] Oct 12, 2019 [facility] [place] INSULIN,GLARGINE,HUMAN 100 UNIT/ML INJ,SOLOSTAR,3ML Active INJECT 50 UNITS SUBCUTANEOUSLY EVERY MORNING FOR BLOOD SUGAR CONTROL. ADMINISTER AT SAME TIME EACH DAY DIRECTED. DISCARD ANY OPEN CARTRIDGE AFTER 28 DAYS. Sep 23, 2020 [id number] Jan 28, 2020 [facility] INSULIN,GLARGINE,HUMAN 100 UNIT/ML INJ,SOLOSTAR,3ML Disconti nued INJECT 45 UNITS SUBCUTANEOUSLY EVERY MORNING FOR BLOOD SUGAR CONTROL. ADMINISTER AT SAME TIME EACH DAY DIRECTED. DISCARD ANY OPEN CARTRIDGE AFTER 28 DAYS. Oct 23, 2019 [id number] Aug 30, 2019 [facility] [place] LACTOBACILLUS ACIDOPHILUS TAB,CHEWABLE Non-VA CHEW ONE TABLET BY MOUTH ONCE A DAY Non-VA Documented by: MEGAN HAWK nted at: [facility] LANCET,SOFTCLIX Active USE LANCET 5 TIME S A DAY FOR TESTING BLOOD GLUCOSE DIRECTED 500 Dec 28, 2020 [id number] March 19, 2020 ELEUTERIO LIVINGSTON [facility] LANCET,SOFTCLIX Discontinued USE LANCET 5 TIME S A DAY FOR TESTING BLOOD GLUCOSE DIRECTED 500 Jan 11, 2020 [id number] Sep 29, 2019 YAYA ITIS[facility] MAGNESIUM OXIDE 400MG TAB Non-VA TAKE ONE TABLET BY MOUTH ONCE A DAY Non-VA Documented by: MEGAN HAWK nted at: [facility] METOPROLOL SUCCINATE 200MG TAB,SA TAKE O NE-HALF TABLET BY MOUTH EVERY EVENING FOR HEART/BLOOD PRESSURE. SWALLOW WHOLE, DO NOT CRUSH OR CHEW (TABLETS MAY BE CUT IN HALF). 45 March 18, 2020 [id number] Dec 28, 2019 STANISLAV HAMMER [facility] NEEDLE 22G 1.5IN USE NEEDLE FOR EVERY MONTH 1 Nov 12, 2019 [id number] Feb 07, 2019 ADELAIDA CLIFFORD [facility] NEEDLE,PEN 31G,5MM Discontinued USE NEEDLE SUBCUTANE OUSLY 5 TIMES A DAY - THIS IS A SINGLE USE NEEDLE AND SHOULD BE DISCARDED AFTER USE 500 Dec 21, 2019 [id number] Sep 28, 2019 ELEUTERIO LIVINGSTON [facility] POTASSIUM CHLORIDE 10MEQ TAB,SA Active TAKE TWO TABLETS BY MOUTH TWO TIMES A DAY FOR POTASSIUM SUPPLEMENTATIONTAKE WITH FOOD 360 Dec 12, 2020 [id number] Mar 02, 2020 YANELY QUINTERO [facility] [place] 15 POTASSIUM CHLORIDE 10MEQ TAB,SA Discontinued TAKE ONE TABLET BY MOUTH THREE TIMES A DAY WITH MEALS FOR POTASSIUM SUPPLEMENTATIONTAKE WITH FOOD 180 March 16, 2020 [id number] Nov 29, [address] [facility] [place] [facility] POTASSIUM CHLORIDE 10MEQ TAB,SA Discontinued TAKE ONE TABLET BY MOUTH THREE TIMES A DAY WITH MEALS FOR POTASSIUM SUPPLEMENTATIONTAKE WITH FOOD 180 May 26, 2019 [id number] Jan 24, 2019 YANELY QUINTERO [facility] [place] [facility] SYRINGE 2.5-3ML/NDL 25G 1IN Active USE 1 SYRINGE EVERY MONTH 3 Feb 21, 2021 [id number] March 20, 2020 [facility] SYRINGE 2.5-3ML/NDL 25G 1IN Discontinued USE 1 SYRINGE EVERY Thu 3 March 18, 2020 [id number] Dec 21, 2019 [facility] TESTOSTERONE CYPIONATE 200MG/ML INJ,1ML (IN OIL) Active INJECT 200 MG (1 ML) INTRAMUSCULARLY EVERY MONTH FOR HORMONE REPLACEMENT 1 May 18, 2020 [id number] April 06, 2020 ADELAIDA CLIFFORD [facility] TESTOSTERONE CYPIONATE 200MG/ML INJ,1ML (IN OIL) Discontinue d INJECT 200 MG (1 ML) INTRAMUSCULARLY EVERY MONTH FOR HORMONE REPLACEMENT 1 March 25, 2020 [id number] Oct 25, 2019 ADELAIDA CLIFFORD [facility] TESTOSTERONE CYPIONATE 200MG/ML INJ,1ML (IN OIL) Discontinue d INJECT 200 MG (1 ML) INTRAMUSCULARLY EVERY MONTH FOR HORMONE REPLACEMENT 1 Nov 06, 2019 [id number] Sep 25, 2019 ADELAIDA CLIFFORD [facility] TESTOSTERONE CYPIONATE 200MG/ML INJ,1ML (IN OIL) Discontinue d INJECT 200 MG (1 ML) INTRAMUSCULARLY EVERY MONTH FOR HORMONE REPLACEMENT 1 May 14, 2019 [id number] Apr 10, 2019 ADELAIDA CLIFFORD [facility] TRAMADOL HCL 50MG TAB Active TAKE 1 TO 2 TABLET S BY MOUTH EVERY 6 HOURS NEEDED FOR PAIN 180 Jul 21, 2020 [id number] March 30, 2020 [facility] [place] [facility] TRAMADOL HCL 50MG TAB Discontinued TAKE 1 TO 2 TABLET S BY MOUTH EVERY 6 HOURS NEEDED FOR PAIN 180 Jun 06, 2020 [id number] Jan 11, 2020 [facility] [place] [facility] TRAMADOL HCL 50MG TAB Discontinued TAKE 1 TO 2 TABLET S BY MOUTH EVERY 6 HOURS NEEDED FOR PAIN 180 Jun 06, 2020 [id number] Dec 06, 2019 [facility] [place] [facility] TRAMADOL HCL 50MG TAB Discontinued TAKE 1 TO 2 TABLET S BY MOUTH EVERY 6 HOURS NEEDED FOR PAIN 180 Dec 14, 2019 [id number] Nov 15, 2019 LAURIMAURICEDANTE YOON AYDE [facility] [place] TRAMADOL HCL 50MG TAB Discontinued TAKE 1 TO 2 TABLET S BY MOUTH EVERY 6 HOURS NEEDED FOR PAIN 180 Jul 06, 2019 [id number] May 26, 2019 GROVENELLA MORELOS [facility] [place] TRIAMCINOLONE ACETONIDE 0.5% CREAM,TOP Active A PPLY SPARINGLY TO AFFECTED AREA ONCE A DAY NEEDED FOR RASH 45 Jul 15, 2020 [id number] April 01 0 THOM CHAMBERS [facility] TRIAMCINOLONE ACETONIDE 0.5% CREAM,TOP Discontinued A PPLY SPARINGLY TO AFFECTED AREA ONCE A DAY NEEDED FOR RASH 45 Oct 12, 2019 [id number] Jul THOM CHAMBERS [facility] [place] [facility] Problems (Conditions): All historical [...] Source Basal cell carcinoma of scalp Active 419584109 THOM CHAMBERS [facility] Chronic back pain Active 417734929 TERRIE CHAMBERS [facility] Chronic kidney disease stage 3 Active 209329181 THOM CHAMBERS [facility] Constipation Active 68434416 [facility] [place] [facility] Diabetes mellitus Active 87800834 THOM CHAMBERS [facility] Diabetic neuropathy Active 122257390 Neha CHAMBERS [facility] Essential hypertension Active 89373754 THOM CHAMBERS [facility] [place] Hyperlipidemia Active 72755446 THOM CHAMBERS [facility] [place] [facility] Hypogonadism Active 76534693 THOM CHAMBERS [facility] [place] [facility] Sleep apnea Active 39985399 THOM CHAMBERS [facility] [place] [facility] Radiology Reports: +/- 30 days of the encounter No Data Provided for This Section Pathology Reports: +/- 30 days of the encounter No Data Provided for This Section Encounter Notes: All associated encounter notes This section contains the clinical notes associated to the Encounter. Date/Time Encounter Note(s) Provider Source Jun 23, 2019 08:41 AM NONVA NOTE: LOCAL TITLE: COMMUNITY CARE-SCHEDULING STANDARD TITLE: NONVA NOTE DATE OF NOTE: JUN 23, 2019@08:41 ENTRY DATE: JUN 23, 2019@08:41:11 AUTHOR: ALINA DOUGLASIGNER: URGENCY: STATUS: COMPLETED [facility] Community Care (PC3) Program [facility] Choice Approval for Medical Care VA-Form 10-0386 Certain protected health information (PHI) may be enclosed; specifically information related to Drug Abuse, Alcoholism or Alcohol Abuse, Sickle Cell Anemia, and Human Immunodeficiency Virus (HIV). This specific PHI may NOT be re-disclosed or used by the recipient person or office for any purpose other than that for which the disclosure was made. [Ref. 38 [facility] 7332(b)(2)(H)(ii)] The information is b eing disclosed by MS only for the treatment and care of the named patient in the health record. Accounting of disclosure must be maintained when required. Referral Urgency: Routine Indicate time frame for appointment: Clinically Indicated Date (WESTLEY): Jun Category of Care/Type of Specialty: Primary Care Type of Specialist: Primary Care PCP Type of Service/Procedure: [facility] Office of Community Care - Standardized Episode of Care Primary Care One Year SEOC ID:[id number] Description:This authorization covers services associated with all medical care listed below for the referred condition on the consult. Duration:365 days Procedural Overview: 1. Outpatient evaluation and treatment for routine care primary care and management of acute complaints 2. Diagnostic imaging relevant to routine primary care and management of acute complaints 3. Labs and pathology relevant to routine primary care and management of acute complaints 4. Procedures/studies relevant to routine primary care and management of acute complaints including but not limited to: incision/drainage, arthrocentesis/joint aspiration, PAP smear, cryotherapy, fecal occult blood testing, colonoscopy, mammogram, etc. 5. Evidence-based vaccinations 6. Follow-up visits (including nursing v isits) relevant to routine primary care and acute care management Please visit the [facility] Storefront [email or web address] for additional resources and requirements pertaining to the following Pharmacy prescribing requirements Durable Medical Equipment (DME), Prosthetics, and Orthotics prescribing requirements Precertification (PRCT) process requirements Request for Services (RFS) requirements Number of Visits, Frequency, and Duration: 365 Days [place] or [facility] Preferred Provider Name and Contact Information: Eligibility Verification: As the authorized VA safety representative, I hereby confirm that the is eligible for Community Care services. The 's basic eligibility was verified on Jun. Contact the Facility Community Care Office first to provide information to the VA or to reach a VA ordering provider. All contact from the contractor will be documented in the 's record by the facility MS community Care and the VA provider will be notified for awareness. Report all Critical Findings related to this authorization to the issuing office below. All other questions regarding this authorization should be directed to: Danisha [place] Facility: [facility] Office of Community Care (OCC) Contact:[phone] [facility] Office of Community Care (OCC) Shower Enclosure Installer or Equivalent: Name: Danisha Gamble [facility] Community Care Bundle Tier And Labeler Contact Number (Normal Business Hours):[phone] AOD/Emergency Contact After Hours Number:[phone] From Station Number: [id number] Facility Name: [facility] [address] Address: [address] [place] [address] City: [place] State: [place] Zip: [address] [place] Information: Name: ARLEENNehaSIMI DENISHA : Nov SSN: [id number] Address: [address] [place] [address] [address] [place], [place] [address] 's Alternate Phone: [place]'s Alternate Address: In accordance with 38 CFR 17.2473-6858, [place] will pay for non-VA hospital care and medical services that are authorized by MS for Veterans who are determined by MS to meet the Veterans Choice Program eligibility criteria set forth by section 101 of the Act and 38 CFR 17.1510 and any other eligibility standards that may apply to particular services (such as health care for newborns of Veterans under 38 CFR 17.38(a)(xiv) and dental benefits under 17.160-17.169). /noa/ ALINA DOUGLAS Advanced [facility] Signed: 06/23/2019 08:42 ALINA DOUGLAS [facility]
--- OUTSIDE RECORDS SUMMARY | 2020-04-18 10:17 | XMS REPORT | Encounter Summary ---
Author Author Department of [facility] SIMI palacio Organization Department of [facility] Address [address] [place] [phone] Phone Unavailable Care Team Providers Care Entry Level Sales Consultant Name Role Phone THOM CHAMBERS PCP Unavailable [...] MEDICARE ADVANTAGE MCR ([place]) Nov 09, 2017 [id number] [phone] SIMI COVARRUBIAS PATIENT [facility] (R) MEDICARE ADVANTAGE MCR ([place]) Nov 09, 2017 [id number] [phone] SIMI COVARRUBIAS PATIENT [facility] ([place]) MEDICARE ADVANTAGE MCR ([place]) Nov 09, 2019 [id number] SIMI COVARRUBIAS PATIENT Selected Encounter This section includes the information on record at [place] for the Encounter. Date/Time Encounter Type Encounter Description Reason Provider Source Jun 23, 2019 07:23 AM Outpatient Encounter ADMIN PAT ACTIVTIES (MASNO [...] EGFR 58.2 Jul 07, 2019 09:11 AM [facility] TABOLIC PANEL Specimen Type: PLASMA [...] Adverse Reactions (ADR s) on record with [place] for the patient. The data comes from [...] [facility] m [facility], and 2) all medications recorded in [...] TIMES A DAY 400 Sep 12, 2020 [id number] Feb 29, 2020 [facility] ROSINA PLUS (GLUCOSE) TEST STRIP Discontinued USE 1 STRIP FOR TESTING FOUR TIMES A DAY 400 Sep 15, 2019 [id number] Jun 13, 2019 [facility] ALCOHOL PREP PAD Discontinued USE 1 PAD ON SKIN FOUR TIMES A DAY 40 0 Apr 25, 2020 [id number] Nov 29, 2019 [facility] [place] ALCOHOL PREP PAD Discontinued USE 1 PAD ON SKIN FOUR TIMES A DAY 40 0 Sep 15, 2019 [id number] Apr 18, 2019 [facility] ALLOPUR[facility] 100MG TAB Active TAKE ONE TABLET BY MOUTH ONCE A DAY FOR GOUT. TAKE WITH PLENTY OF WATER 90 Sep 23, 2020 [id number] Mar 05, 2020 SILVINA CHAMBERS [facility] [place] ALLOPURINOL 100MG TAB Discontinued TAKE ONE TABLET BY MOUTH ONCE A DAY FOR GOUT. TAKE WITH PLENTY OF WATER 90 Dec 30, 2019 [id number] Sep 17, 2019 THOM SHARPE [facility] [place] ALOGLIPTIN 12.5MG TAB Active TAKE ONE TABLET BY MOUTH O NCE A DAY FOR DIABETES 90 Sep 12, 2020 [id number] Mar 04, 2020 BALTRUSAELEUTERIO QUIGLEY RN [facility] [place] ALOGLIPTIN 12.5MG TAB Discontinued TAKE ONE TABLET BY MOUTH ONCE A DAY FOR DIABETES 90 Dec 22, 2019 [id number] Jun 18, 2019 BALTRUSAITISELEUTERIO [facility] [place] AMLODIPINE BESYLATE 10MG TAB Discontinued TAKE ONE TA BLET BY MOUTH EVERY MORNING FOR HEART/BLOOD PRESSURE 90 Jun 10, 2019 [id number] Feb 25, 2019 MONIKA HAMMER [facility] [place] AMLODIPINE BESYLATE 10MG TAB TAKE ONE TA BLET BY MOUTH EVERY MORNING FOR HEART/BLOOD PRESSURE 90 Apr 12, 2020 [id number] Feb 10, 2020 SILVINA CHAMBERS [facility] ASPIRIN 81MG TAB,CHEWABLE Non-VA CHEW ONE TABLET BY MOUTH ONCE A DAY Non-VA Documented by: MEGAN HAWK nted at: [facility] [place] DIV ATORVASTATIN CA 20MG TAB Active TAKE ONE TABLET BY MOUTH ONCE A DAY FOR CHOLESTEROL. REPORT ANY UNEXPLAINED MUSCLE PAIN OR WEAKNESS TO YOUR DOCTOR. 90 Jan 02, 2021 [id number] March 24, 2020 [facility] 15 ATORVASTATIN CA 40MG TAB Discontinued TAKE ONE-HALF T ABLET BY MOUTH AT BEDTIME FOR CHOLESTEROL. REPORT ANY UNEXPLAINED MUSCLE PAIN OR WEAKNESS TO YOUR DOCTOR. 45 Jul 15, 2020 [id number] Oct 14, 2019 [facility] [place] ATORVASTATIN CA 40MG TAB Discontinued TAKE ONE-HALF T ABLET BY MOUTH AT BEDTIME FOR CHOLESTEROL. REPORT ANY UNEXPLAINED MUSCLE PAIN OR WEAKNESS TO YOUR DOCTOR. 45 Oct 12, 2019 [id number] Jul 16, 2019 [facility] [place] CALCIUM CARBONATE 500MG TAB,CHEWABLE Non-VA CHEW ONE TABLET BY MOUTH PRN Non-VA Documented by: THOM CHAMBERS nted at: [facility] CHLORTHALIDONE 25MG TAB Active TAKE ONE TABLET BY MOUTH ONCE A DAY 90 Jul 01, 2020 [id number] March 19, 2020 MONIKA HAMMER [facility] [place] CHLORTHALIDONE 25MG TAB Discontinued TAKE ONE TABLET BY MOUTH ONCE A DAY 90 Jun 16, 2019 [id number] Apr 12, 2019 MONIKA HAMMER [facility] [place] CHOLECALCIFEROL 1000UNT TAB Non-VA TAKE ONE TABLET BY MOUTH EVERY OTHER DAY Non-VA Docume nted by: MEGAN HAWK Docume nted at: [facility] [place] [facility] CYANOCOBALAMIN 1000MCG/ML INJ Active INJECT 100 0 MCG (1 ML) INTRAMUSCULARLY EVERY MONTH FOR B12 SUPPLEMENTATION. 3 Nov 03, 2020 [id number] Apr 23, 2020 THOM CHAMBERS [facility] [place] CYANOCOBALAMIN 1000MCG/ML INJ Discontinued INJECT 100 0 MCG (1 ML) INTRAMUSCULARLY EVERY MONTH FOR B12 SUPPLEMENTATION. 3 Nov 17 0 [id number] Aug 07, 2019 [facility] DIPHENHYDRAMINE HCL 25MG CAP Non-VA TAKE 1 CAPSULE BY MOUTH PRN Non-VA Documented by: THOM CHAMBERS Docume nted at: [facility] DOCUSATE NA 100MG CAP No n-VA TAKE 2 CAPSULES BY MOUTH ONCE A DAY Non-VA Documented by: THOM CHAMBERS Docume nted at: [facility] FISH OIL 1000MG (500MG DHA/EPA) CAP,ORAL Non-VA TAKE 1 CAPSULE BY MOUTH ONCE A DAY Non-VA Documented by: MEGAN HAKW Docume nted at: [facility] DIV GABAPENTIN 100MG CAP Active TAKE 1 CAPSULE BY M OUTH EVERY MORNING AND TAKE 1 CAPSULE BY MOUTH AT NOON AND TAKE 2 CAPSULES BY MOUTH AT BEDTIME 360 Jul 06, 2020 [id number] March 31, 2020 BALTRELEUTERIO ROJAS L [facility] [place] GLUCAGON 1MG/GABRIELLA INJ,EMERGENCY KIT INJEC T 1MG SUBCUTANEOUSLY NEEDED FOR SEVERE HYPOGLYCEMIA 1 Nov 30, 2019 [id number] Nov 03, 2019 [facility] [place] [facility] INSULIN,ASPART,HUMAN 100U/ML,NOVOLOG,FLEXPEN,3ML Active: On Hold INJECT 20 UNITS SUBCUTANEOUSLY BEFORE BREAKFAST AND INJECT 20 UNITS BEFORE LUNCH AND INJECT 26 UNITS BEFORE SUPPER AND INJECT 24 UNITS SNACK FOR BLOOD SUGAR CONTROL. ADMINISTER 10 MINUTES BEFORE FOOD DIRECTED. REFRIGERATE UN-OPENED PENS. DISCARD CARTRIDGE 28 DAYS AFTER OPENING. PLUS CORRECTION Mar 01, 2021 [id number] YARAMETHODIST [facility] [place] INSULIN,ASPART,HUMAN 100U/ML,NOVOLOG,FLEXPEN,3ML Discontinue d INJECT 20 UNITS SUBCUTANEOUSLY BEFORE BREAKFAST AND INJECT 20 UNITS BEFORE LUNCH AND INJECT 24 UNITS BEFORE SUPPER AND INJECT 24 UNITS SNACK FOR BLOOD SUGAR CONTROL. ADMINISTER 10 MINUTES BEFORE FOOD DIRECTED. REFRIGERATE UN-OPENED PENS. DISCARD CARTRIDGE 28 DAYS AFTER OPENING. PLUS CORRECTION 30 Jan 26, 2021 [id number] Jan 28, 2020 YARAMETHODIST [facility] [place] [facility] INSULIN,ASPART,HUMAN 100U/ML,NOVOLOG,FLEXPEN,3ML Discontinue d INJECT 20 UNITS SUBCUTANEOUSLY BEFORE MEALS FOR BLOOD SUGAR CONTROL. ADMINISTER 10 MINUTES BEFORE FOOD DIRECTED. REFRIGERATE UN-OPENED PENS. DISCARD CARTRIDGE 28 DAYS AFTER OPENING. PLUS CORRECTION FOR BLOOD SUGAR CONTROL. ADMINISTER 10 MINUTES BEFORE FOOD DIRECTED. REFRIGERATE UN-OPENED PENS. DISCARD CARTRIDGE 28 DAYS AFTER OPENING. PLUS CORRECTION Nov 16, 2020 [id number] Nov 16 YARAMETHODIST [facility] [place] INSULIN,ASPART,HUMAN 100U/ML,NOVOLOG,FLEXPEN,3ML Discontinue d INJECT 15 UNITS SUBCUTANEOUSLY EVERY MORNING BEFORE MEAL AND INJECT 15 UNITS WITH LUNCH AND INJECT 15 UNITS WITH SUPPER AND INJECT 20 UNITS WITH SNACK FOR BLOOD SUGAR CONTROL. ADMINISTER 10 MINUTES BEFORE FOOD DIRECTED. REFRIGERATE UN-OPENED PENS. DISCARD CARTRIDGE 28 DAYS AFTER OPENING. Dec 22, 2019 5 [id number] Oct 12, 2019 YARAMETHODIST [facility] [place] INSULIN,GLARGINE,HUMAN 100 UNIT/ML INJ,SOLOSTAR,3ML Active INJECT 50 UNITS SUBCUTANEOUSLY EVERY MORNING FOR BLOOD SUGAR CONTROL. ADMINISTER AT SAME TIME EACH DAY DIRECTED. DISCARD ANY OPEN CARTRIDGE AFTER 28 DAYS. Sep 23, 2020 [id number] Jan 28, 2020 YARAMETHODIST [facility] [place] [facility] INSULIN,GLARGINE,HUMAN 100 UNIT/ML INJ,SOLOSTAR,3ML Disconti nued INJECT 45 UNITS SUBCUTANEOUSLY EVERY MORNING FOR BLOOD SUGAR CONTROL. ADMINISTER AT SAME TIME EACH DAY DIRECTED. DISCARD ANY OPEN CARTRIDGE AFTER 28 DAYS. Oct 23, 2019 [id number] Aug 30, 2019 ELEUTERIO LIVINGSTON [facility] [place] LACTOBACILLUS ACIDOPHILUS TAB,CHEWABLE Non-VA CHEW ONE TABLET BY MOUTH ONCE A DAY Non-VA Documented by: MEGAN HAWK nted at: [facility] LANCET,SOFTCLIX Active USE LANCET 5 TIME S A DAY FOR TESTING BLOOD GLUCOSE DIRECTED 500 Dec 28, 2020 [id number] March 19, 2020 LYNDATRUSAELEUTERIO QUIGLEY [facility] [place] LANCET,SOFTCLIX Discontinued USE LANCET 5 TIME S A DAY FOR TESTING BLOOD GLUCOSE DIRECTED 500 Jan 11, 2020 [id number] Sep 29, 2019 YAYA ITISELEUTERIO [facility] MAGNESIUM OXIDE 400MG TAB Non-VA TAKE ONE TABLET BY MOUTH ONCE A DAY Non-VA Documented by: MEGAN HAWKed at: [facility] METOPROLOL SUCCINATE 200MG TAB,SA TAKE O NE-HALF TABLET BY MOUTH EVERY EVENING FOR HEART/BLOOD PRESSURE. SWALLOW WHOLE, DO NOT CRUSH OR CHEW (TABLETS MAY BE CUT IN HALF). 45 March 18, 2020 [id number] Dec 28, 2019 STANISLAV HAMMER [facility] NEEDLE 22G 1.5IN USE NEEDLE FOR EVERY MONTH 1 Nov 12, 2019 [id number] Feb 07, 2019 ADELAIDA CLIFFORD [facility] [place] NEEDLE,PEN 31G,5MM Discontinued USE NEEDLE SUBCUTANE OUSLY 5 TIMES A DAY - THIS IS A SINGLE USE NEEDLE AND SHOULD BE DISCARDED AFTER USE 500 Dec 21, 2019 [id number] Sep 28, 2019 ELEUTERIO LIVINGSTON Laron [facility] [place] [facility] POTASSIUM CHLORIDE 10MEQ TAB,SA Active TAKE TWO TABLETS BY MOUTH TWO TIMES A DAY FOR POTASSIUM SUPPLEMENTATIONTAKE WITH FOOD 360 Dec 12, 2020 [id number] Mar 02, 2020 YANELY QUINTERO [facility] [place] 15 POTASSIUM CHLORIDE 10MEQ TAB,SA Discontinued TAKE ONE TABLET BY MOUTH THREE TIMES A DAY WITH MEALS FOR POTASSIUM SUPPLEMENTATIONTAKE WITH FOOD 180 March 16, 2020 [id number] Nov 29, 2019 BALELEUTERIO KONG Laron [facility] [place] POTASSIUM CHLORIDE 10MEQ TAB,SA Discontinued TAKE ONE TABLET BY MOUTH THREE TIMES A DAY WITH MEALS FOR POTASSIUM SUPPLEMENTATIONTAKE WITH FOOD 180 May 26, 2019 [id number] Jan 24, 2019 YANELY QUINTERO [facility] [place] SYRINGE 2.5-3ML/NDL 25G 1IN Active USE 1 SYRINGE EVERY MONTH 3 Feb 21, 2021 [id number] March 20, 2020 [facility] SYRINGE 2.5-3ML/NDL 25G 1IN Discontinued USE 1 SYRINGE EVERY Thu 3 March 18, 2020 [id number] Dec 21, 2019 [facility] TESTOSTERONE CYPIONATE 200MG/ML INJ,1ML (IN OIL) Active INJECT 200 MG (1 ML) INTRAMUSCULARLY EVERY MONTH FOR HORMONE REPLACEMENT 1 May 18, 2020 [id number] April 06, 2020 ADELAIDA CLIFFORD [facility] [place] TESTOSTERONE CYPIONATE 200MG/ML INJ,1ML (IN OIL) Discontinue d INJECT 200 MG (1 ML) INTRAMUSCULARLY EVERY MONTH FOR HORMONE REPLACEMENT March 25, 2020 [id number] Oct 25, 2019 ADELAIDA CLIFFORD [facility] [place] TESTOSTERONE CYPIONATE 200MG/ML INJ,1ML (IN OIL) Discontinue d INJECT 200 MG (1 ML) INTRAMUSCULARLY EVERY MONTH FOR HORMONE REPLACEMENT 1 Nov 06, 2019 [id number] Sep 25, 2019 ADELAIDA CLIFFORD [facility] [place] TESTOSTERONE CYPIONATE 200MG/ML INJ,1ML (IN OIL) Discontinue d INJECT 200 MG (1 ML) INTRAMUSCULARLY EVERY MONTH FOR HORMONE REPLACEMENT 1 May 14, 2019 [id number] Apr 10, 2019 ADELAIDA CLIFFORD [facility] [place] DIV TRAMADOL HCL 50MG TAB Active TAKE 1 TO 2 TABLET S BY MOUTH EVERY 6 HOURS NEEDED FOR PAIN 180 Jul 21, 2020 [id number] March 30, 2020 [facility] TRAMADOL HCL 50MG TAB Discontinued TAKE 1 TO 2 TABLET S BY MOUTH EVERY 6 HOURS NEEDED FOR PAIN 180 Jun 06, 2020 [id number] Jan 11, 2020 [facility] TRAMADOL HCL 50MG TAB Discontinued TAKE 1 TO 2 TABLET S BY MOUTH EVERY 6 HOURS NEEDED FOR PAIN 180 Jun 06, 2020 [id number] Dec 06, 2019 [facility] [place] 15 TRAMADOL HCL 50MG TAB Discontinued TAKE 1 TO 2 TABLET S BY MOUTH EVERY 6 HOURS NEEDED FOR PAIN 180 Dec 14, 2019 [id number] Nov 15, 2019 ABRAMDANTE AYDE [facility] [place] TRAMADOL HCL 50MG TAB Discontinued TAKE 1 TO 2 TABLET S BY MOUTH EVERY 6 HOURS NEEDED FOR PAIN 180 Jul 06, 2019 [id number] May 26, 2019 NELLA GROVE [facility] [place] TRIAMCINOLONE ACETONIDE 0.5% CREAM,TOP Active A PPLY SPARINGLY TO AFFECTED AREA ONCE A DAY NEEDED FOR RASH 45 Jul 15, 2020 [id number] April 01 0 THOM CHAMBERS [facility] [place] TRIAMCINOLONE ACETONIDE 0.5% CREAM,TOP Discontinued A PPLY SPARINGLY TO AFFECTED AREA ONCE A DAY NEEDED FOR RASH 45 Oct 12, 2019 [id number] Jul THOM CHAMBERS [facility] [place] Problems (Conditions): All historical and current Section Date Range: From patient's date of to the date document was create d. This section includes a list of Problems (Conditions) know n to [place] for the patient. It includes both active and inacti ve problems (conditions). The data comes from all [place] treatment facilities. Problem Status Problem Code Date of Onset Date of Resolution Comm ent(s) Provider Source Basal cell carcinoma of scalp Active [id number] THOM CHAMBERS [facility] [place] Chronic back pain Active [id number] TERRIE CHAMBERS [facility] [place] Chronic kidney disease stage 3 Active [id number] THOM CHAMBERS [facility] [place] Constipation Active 00532720 THOM CHAMBERS [facility] [place] Diabetes mellitus Active 31104121 THOM CHAMBERS [facility] [place] Diabetic neuropathy Active 188611144 Neha CHAMBERS [facility] [place] Essential hypertension Active 69187292 THOM CHAMBERS [facility] [place] Hyperlipidemia Active 54684286 THOM CHAMBERS [facility] [place] Hypogonadism Active 59980437 THOM CHAMBERS [facility] [place] Sleep apnea Active 41906693 THOM CHAMBERS [facility] [place] Radiology Reports: +/- 30 days of the encounter No Data Provided for This Section Pathology Reports: +/- 30 days of the encounter No Data Provided for This Section Encounter Notes: All associated encounter notes This section contains the clinical notes associated to the Encounter. Date/Time Encounter Note(s) Provider Source Jun 23, 2019 07:23 AM ADMINISTRATIVE NOTE: LOCAL TITLE: EK-ADMINISTRATIVE STANDARD TITLE: ADMINISTRATIVE NOTE DATE OF NOTE: JUN 23, 2019@07:23 ENTRY DATE: JUN 23, 2019@07:23:22 AUTHOR: REMY RODRIGUEZ COSIGNER: URGENCY: STATUS: COMPLETED sent to [facility] to be unassigned from Diana Allred CBTRICE. /noa/ REMY RODRIGUEZ medical attendant Signed: 06/23/2019 07:25 REMY RODRIGUEZ [facility] [place]
--- OUTSIDE RECORDS SUMMARY | 2020-04-18 10:18 | XMS REPORT ---
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 Door Installer Name Role Phone REYES THOM PCP [...] [facility] RE[facility] (WNR) MEDICARE ADVANTAGE [employer] ([facility]) Nov 09, 2017 [id number] [phone] SIMI COVARRUBIAS PATIENT [facility] (WNR) MEDICARE [facility] (R) Nov 09, 2017 [id number] [phone] SIMI COVARRUBIAS PATIENT [employer] (WNR) MEDICARE ADVANTAGE [employer] (R) Nov 09, 2019 [id number] SIMI COVARRUBIAS PATIENT Selected Encounter This section includes the information on record at [place] for the Encounter. Date/Time Encounter Type Encounter Description Reason Provider Source Jun 23, 2019 12:00 AM Outpatient Encounter ADMIN PAT ACTIVTIES (MASNO NCT) [facility], [facility] 15 IHE Encounter Template Text not used by [place] Assessments - Encounter Diagnoses No Data Provided [...] Range Comment Jul 07, 2019 09:11 AM [facility] PTH INTACT Specimen Type: PLASMA No comment entered. PTH INTACT 45.8 pg/mL 8.7-77.7 Jul 07, 2019 09:11 AM [facility] CBC & DIFF Specimen [...] 0.8 % Jul 07, 2019 09:11 AM [facility] URINALYSIS Specimen Type: URINE [...] Trace /HPF Jul 07, 2019 09:11 AM [facility] MAGNESIUM (mg/dL) Specimen Type: PLASMA No comment entered. MAGNESIUM (mg/dL) 1.8 mg/dl 1.6-2.6 Jul 07, 2019 09:11 AM [facility] URIC ACID (mg/dL) Specimen Type: PLASMA No comment entered. URIC ACID (mg/dL) 6.7 mg/dL 3.5-7.2 Jul 07, 2019 09:11 AM [facility] VITAMIN D (25-OH) Specimen Type: SERUM No comment entered. VITAMIN D (25-OH) 42.9 ng/mL 30.0-96.0 Jul 07, 2019 09:11 AM [facility] MICROALBUMIN (CO,EK) Specimen Type: URINE No comment entered. *MICROALBUMIN(CONC) 46.6 mg/dL - *MICROALBUMIN(SPOT) 158 mcg/mg cr HH 0-29 *CREATININE mg/dL 295.0 mg/dl Not Avail. Jul 07, 2019 09:11 AM [facility] HEPATIC FUNCTION PANE L Specimen Type: PLASMA No comment entered. PROTEIN,TOTAL 6.1 g/dL 6.0-8.6 ALBUMIN 3.9 g/dl 3.4-5.0 TOTAL BILIRUBIN 0.4 mg/dL 0.2-1.2 DIRECT BILIRUBIN 0.2 mg/dL 0-0.5 ASPARTATE TRANSAMINASE 29 U/L 5-34 ALANINE AMINOTRANSFERASE 24 U/L 8-40 ALKALINE PHOSPHATASE 91 U/L 40-150 Jul 07, 2019 09:11 AM [facility] RENAL FUNCTION PANEL Specimen [...] EGFR 58.2 Jul 07, 2019 09:11 AM [facility] [place] [facility] COM[facility]IVE [facility] TABOLIC PANEL Specimen Type: PLASMA No comment [...] adverse reactions to drug (disorder) Renal impairment [facility], [facility] 15 METFORMIN Dec 01, 2017 Propensity to adverse reactions to drug (disorder) Renal impairment [facility], [facility] 15 Medications: VA dispensed (-15 months) and Non-VA Documented (Obtained Outside A) Section Date Range: 1) prescriptions processed by a VA pharmacy in the last 15 m [facility], and 2) all medications [...] TIMES A DAY 400 Sep 12, 2020 [id number] Feb 29, 2020 BALTRUSADANN,[facility] ACCU-CHEK ROSINA PLUS (GLUCOSE) TEST STRIP Discontinued USE 1 STRIP FOR TESTING FOUR TIMES A DAY 400 Sep 15, 2019 [id number] Jun 13, 2019 BALTRUSAIT IS,[facility] ALCOHOL PREP PAD Discontinued USE 1 PAD ON SKIN FOUR TIMES A DAY 40 0 Apr 25, 2020 [id number] Nov 29, 2019 [facility]TRUSAITISELEUTERIO [facility] [place] [facility] ALCOHOL PREP PAD Discontinued USE 1 PAD ON SKIN FOUR TIMES A DAY 40 0 Sep 15, 2019 [id number] Apr 18, 2019 BALTRUSAITISELEUTERIO Laron [facility] ALLOPURINOL 100MG TAB Active TAKE ONE TABLET BY MOUTH ONCE A DAY FOR GOUT. TAKE WITH PLENTY OF WATER 90 Sep 23, 2020 [id number] Mar 05, 2020 SILVINA CHAMBERS [facility] [place] [facility] ALLOPURINOL 100MG TAB Discontinued TAKE ONE TABLET BY MOUTH ONCE A DAY FOR GOUT. TAKE WITH PLENTY OF WATER 90 Dec 30, 2019 [id number] Sep 17, 2019 THOM SHARPE [facility] [place] [facility] ALOGLIPTIN 12.5MG TAB Active TAKE ONE TABLET BY MOUTH O NCE A DAY FOR DIABETES 90 Sep 12, 2020 [id number] Mar 04, 2020 BALTRELEUTERIO ROJAS RN [facility] [place] ALOGLIPTIN 12.5MG TAB Discontinued TAKE ONE TABLET BY MOUTH ONCE A DAY FOR DIABETES 90 Dec 22, 2019 [id number] Jun 18, 2019 BALTRUSAELEUTERIO QUIGLEY [facility] [place] AMLODIPINE BESYLATE 10MG TAB Discontinued TAKE ONE TA BLET BY MOUTH EVERY MORNING FOR HEART/BLOOD PRESSURE 90 Jun 10, 2019 [id number] Feb 25, 2019 MONIKA HAMMER [facility] [place] AMLODIPINE BESYLATE 10MG TAB TAKE ONE TA BLET BY MOUTH EVERY MORNING FOR HEART/BLOOD PRESSURE 90 Apr 12, 2020 [id number] Feb 10, 2020 SILVINA CHAMBERS [facility] ASPIRIN 81MG TAB,CHEWABLE Non-VA CHEW ONE TABLET BY MOUTH ONCE A DAY Non-VA Documented by: MEGAN HAWK nted at: [facility] [place] DIV ATORVASTATIN CA 20MG TAB Active TAKE ONE TABLET BY MOUTH ONCE A DAY FOR CHOLESTEROL. REPORT ANY UNEXPLAINED MUSCLE PAIN OR WEAKNESS TO YOUR DOCTOR. 90 Jan 02, 2021 [id number] March 24, 2020 [facility] ATORVASTATIN CA 40MG TAB Discontinued TAKE ONE-HALF T ABLET BY MOUTH AT BEDTIME FOR CHOLESTEROL. REPORT ANY UNEXPLAINED MUSCLE PAIN OR WEAKNESS TO YOUR DOCTOR. 45 Jul 15, 2020 [id number] Oct 14, 2019 REYESTHOM [facility] [place] ATORVASTATIN CA 40MG TAB Discontinued TAKE ONE-HALF T ABLET BY MOUTH AT BEDTIME FOR CHOLESTEROL. REPORT ANY UNEXPLAINED MUSCLE PAIN OR WEAKNESS TO YOUR DOCTOR. 45 Oct 12, 2019 [id number] Jul 16, [address] [facility] [place] CALCIUM CARBONATE 500MG TAB,CHEWABLE Non-VA CHEW ONE TABLET BY MOUTH PRN Non-VA Documented by: THOM CHAMBERS nted at: [facility] CHLORTHALIDONE 25MG TAB Active TAKE ONE TABLET BY MOUTH ONCE A DAY 90 Jul 01, 2020 [id number] March 19, 2020 MONIKA HAMMER [facility] [place] DIV CHLORTHALIDONE 25MG TAB Discontinued TAKE ONE TABLET BY MOUTH ONCE A DAY 90 Jun 16, 2019 [id number] Apr 12, 2019 MONIKA HAMMER [facility] [place] DIV CHOLECALCIFEROL 1000UNT TAB Non-VA TAKE ONE TABLET BY MOUTH EVERY OTHER DAY Non-VA Docume nted by: MEGAN HAWK Docume nted at: [facility] [place] DIV CYANOCOBALAMIN 1000MCG/ML INJ Active INJECT 100 0 MCG (1 ML) INTRAMUSCULARLY EVERY MONTH FOR B12 SUPPLEMENTATION. 3 Nov 03, 2020 [id number] Apr 23, [address] [facility] [place] [facility] CYANOCOBALAMIN 1000MCG/ML INJ Discontinued INJECT 100 0 MCG (1 ML) INTRAMUSCULARLY EVERY MONTH FOR B12 SUPPLEMENTATION. 3 Nov 17 0 [id number] Aug 07, 2019 THOM CHAMBERS [facility] [place] DIV DIPHENHYDRAMINE HCL 25MG CAP Non-VA TAKE 1 CAPSULE BY MOUTH PRN Non-VA Documented by: THOM CHAMBERS Docume nted at: [facility] DOCUSATE NA 100MG CAP No n-VA TAKE 2 CAPSULES BY MOUTH ONCE A DAY Non-VA Documented by: THOM CHAMBERS Docume nted at: [facility] FISH OIL 1000MG (500MG DHA/EPA) CAP,ORAL Non-VA TAKE 1 CAPSULE BY MOUTH ONCE A DAY Non-VA Documented by: MEGAN HAWK Docume nted at: [facility] DIV GABAPENTIN 100MG CAP Active TAKE 1 CAPSULE BY M OUTH EVERY MORNING AND TAKE 1 CAPSULE BY MOUTH AT NOON AND TAKE 2 CAPSULES BY MOUTH AT BEDTIME 360 Jul 06, 2020 [id number] March 31, 2020 BALTRUSAELEUTERIO QUIGLEY L [facility] [place] [facility] GLUCAGON 1MG/GABRIELLA INJ,EMERGENCY KIT INJEC T 1MG SUBCUTANEOUSLY NEEDED FOR SEVERE HYPOGLYCEMIA 1 Nov 30, 2019 [id number] Nov 03, [address] [facility] [place] INSULIN,ASPART,HUMAN 100U/ML,NOVOLOG,FLEXPEN,3ML Active: On Hold INJECT 20 UNITS SUBCUTANEOUSLY BEFORE BREAKFAST AND INJECT 20 UNITS BEFORE LUNCH AND INJECT 26 UNITS BEFORE SUPPER AND INJECT 24 UNITS SNACK FOR BLOOD SUGAR CONTROL. ADMINISTER 10 MINUTES BEFORE FOOD DIRECTED. REFRIGERATE UN-OPENED PENS. DISCARD CARTRIDGE 28 DAYS AFTER OPENING. PLUS CORRECTION Mar 01, 2021 [id number] [facility] [place] [facility] INSULIN,ASPART,HUMAN 100U/ML,NOVOLOG,FLEXPEN,3ML Discontinue d INJECT 20 UNITS SUBCUTANEOUSLY BEFORE BREAKFAST AND INJECT 20 UNITS BEFORE LUNCH AND INJECT 24 UNITS BEFORE SUPPER AND INJECT 24 UNITS SNACK FOR BLOOD SUGAR CONTROL. ADMINISTER 10 MINUTES BEFORE FOOD DIRECTED. REFRIGERATE UN-OPENED PENS. DISCARD CARTRIDGE 28 DAYS AFTER OPENING. PLUS CORRECTION 30 Jan 26, 2021 [id number] Jan 28, 2020 [facility] [place] INSULIN,ASPART,HUMAN 100U/ML,NOVOLOG,FLEXPEN,3ML Discontinue d INJECT 20 UNITS SUBCUTANEOUSLY BEFORE MEALS FOR BLOOD SUGAR CONTROL. ADMINISTER 10 MINUTES BEFORE FOOD DIRECTED. REFRIGERATE UN-OPENED PENS. DISCARD CARTRIDGE 28 DAYS AFTER OPENING. PLUS CORRECTION FOR BLOOD SUGAR CONTROL. ADMINISTER 10 MINUTES BEFORE FOOD DIRECTED. REFRIGERATE UN-OPENED PENS. DISCARD CARTRIDGE 28 DAYS AFTER OPENING. PLUS CORRECTION Nov 16, 2020 [id number] Nov 16 [facility] [place] INSULIN,ASPART,HUMAN 100U/ML,NOVOLOG,FLEXPEN,3ML Discontinue d INJECT 15 UNITS SUBCUTANEOUSLY EVERY MORNING BEFORE MEAL AND INJECT 15 UNITS WITH LUNCH AND INJECT 15 UNITS WITH SUPPER AND INJECT 20 UNITS WITH SNACK FOR BLOOD SUGAR CONTROL. ADMINISTER 10 MINUTES BEFORE FOOD DIRECTED. REFRIGERATE UN-OPENED PENS. DISCARD CARTRIDGE 28 DAYS AFTER OPENING. Dec 22, 2019 5 [id number] Oct 12, 2019 [facility] [place] INSULIN,GLARGINE,HUMAN 100 UNIT/ML INJ,SOLOSTAR,3ML Active INJECT 50 UNITS SUBCUTANEOUSLY EVERY MORNING FOR BLOOD SUGAR CONTROL. ADMINISTER AT SAME TIME EACH DAY DIRECTED. DISCARD ANY OPEN CARTRIDGE AFTER 28 DAYS. Sep 23, 2020 [id number] Jan 28, 2020 [facility] [place] [facility] INSULIN,GLARGINE,HUMAN 100 UNIT/ML INJ,SOLOSTAR,3ML Disconti nued INJECT 45 UNITS SUBCUTANEOUSLY EVERY MORNING FOR BLOOD SUGAR CONTROL. ADMINISTER AT SAME TIME EACH DAY DIRECTED. DISCARD ANY OPEN CARTRIDGE AFTER 28 DAYS. Oct 23, 2019 [id number] Aug 30, 2019 ELEUTERIO LIVINGSTON [facility] [place] LACTOBACILLUS ACIDOPHILUS TAB,CHEWABLE Non-VA CHEW ONE TABLET BY MOUTH ONCE A DAY Non-VA Documented by: MEGAN HAWK nted at: [facility] DIV LANCET,SOFTCLIX Active USE LANCET 5 TIME S A DAY FOR TESTING BLOOD GLUCOSE DIRECTED 500 Dec 28, 2020 [id number] March 19, 2020 BALTRUSAELEUTERIO QUIGLEY [facility] [place] LANCET,SOFTCLIX Discontinued USE LANCET 5 TIME S A DAY FOR TESTING BLOOD GLUCOSE DIRECTED 500 Jan 11, 2020 [id number] Sep 29, 2019 YAYA ITISELEUTERIO [facility] DIV MAGNESIUM OXIDE 400MG TAB Non-VA TAKE ONE TABLET BY MOUTH ONCE A DAY Non-VA Documented by: MEGAN HAWK nted at: [facility] DIV METOPROLOL SUCCINATE 200MG TAB,SA TAKE O NE-HALF TABLET BY MOUTH EVERY EVENING FOR HEART/BLOOD PRESSURE. SWALLOW WHOLE, DO NOT CRUSH OR CHEW (TABLETS MAY BE CUT IN HALF). 45 March 18, 2020 [id number] Dec 28, 2019 STANISLAV HAMMER [facility] NEEDLE 22G 1.5IN USE NEEDLE FOR EVERY MONTH 1 Nov 12, 2019 [id number] Feb 07, 2019 ADELAIDA CLIFFORD [facility] [place] NEEDLE,PEN 31G,5MM Discontinued USE NEEDLE SUBCUTANE OUSLY 5 TIMES A DAY - THIS IS A SINGLE USE NEEDLE AND SHOULD BE DISCARDED AFTER USE 500 Dec 21, 2019 [id number] Sep 28, 2019 BALANGELIKAUSAELEUTERIO QUIGLEY [facility] [place] [facility] POTASSIUM CHLORIDE 10MEQ TAB,SA Active TAKE TWO TABLETS BY MOUTH TWO TIMES A DAY FOR POTASSIUM SUPPLEMENTATIONTAKE WITH FOOD 360 Dec 12, 2020 [id number] Mar 02, 2020 YANELY QUINTERO [facility], [place] 15 POTASSIUM CHLORIDE 10MEQ TAB,SA Discontinued TAKE ONE TABLET BY MOUTH THREE TIMES A DAY WITH MEALS FOR POTASSIUM SUPPLEMENTATIONTAKE WITH FOOD 180 March 16, 2020 [id number] Nov 29, 2019 BALTRUSAELEUTERIO QUIGLEY Laron [facility] [place] [facility] POTASSIUM CHLORIDE 10MEQ TAB,SA Discontinued TAKE ONE TABLET BY MOUTH THREE TIMES A DAY WITH MEALS FOR POTASSIUM SUPPLEMENTATIONTAKE WITH FOOD 180 May 26, 2019 [id number] Jan 24, 2019 YANELY QUINTERO [facility] [place] DIV SYRINGE 2.5-3ML/NDL 25G 1IN Active USE 1 SYRINGE EVERY MONTH 3 Feb 21, 2021 [id number] March 20, 2020 [facility] SYRINGE 2.5-3ML/NDL 25G 1IN Discontinued USE 1 SYRINGE EVERY Thu 3 March 18, 2020 [id number] Dec 21, 2019 [facility] INIC TESTOSTERONE CYPIONATE 200MG/ML INJ,1ML (IN OIL) Active INJECT 200 MG (1 ML) INTRAMUSCULARLY EVERY MONTH FOR HORMONE REPLACEMENT 1 May 18, 2020 [id number] April 06, 2020 ADELAIDA CLIFFORD [facility] [place] TESTOSTERONE CYPIONATE 200MG/ML INJ,1ML (IN OIL) Discontinue d INJECT 200 MG (1 ML) INTRAMUSCULARLY EVERY MONTH FOR HORMONE REPLACEMENT 1 March 25, 2020 [id number] Oct 25, 2019 ADELAIDA CLIFFORD [facility] [place] DIV TESTOSTERONE CYPIONATE 200MG/ML INJ,1ML (IN OIL) Discontinue d INJECT 200 MG (1 ML) INTRAMUSCULARLY EVERY MONTH FOR HORMONE REPLACEMENT 1 Nov 06, 2019 [id number] Sep 25, 2019 ADELAIDA CLIFFORD [facility] [place] TESTOSTERONE CYPIONATE 200MG/ML INJ,1ML (IN OIL) Discontinue d INJECT 200 MG (1 ML) INTRAMUSCULARLY EVERY MONTH FOR HORMONE REPLACEMENT 1 May 14, 2019 [id number] Apr 10, 2019 ADELAIDA CLIFFORD [facility] [place] DIV TRAMADOL HCL 50MG TAB Active TAKE 1 TO 2 TABLET S BY MOUTH EVERY 6 HOURS NEEDED FOR PAIN 180 Jul 21, 2020 [id number] March 30, [address] [facility] TRAMADOL HCL 50MG TAB Discontinued TAKE 1 TO 2 TABLET S BY MOUTH EVERY 6 HOURS NEEDED FOR PAIN 180 Jun 06, 2020 [id number] Jan 11, [address] [facility] TRAMADOL HCL 50MG TAB Discontinued TAKE 1 TO 2 TABLET S BY MOUTH EVERY 6 HOURS NEEDED FOR PAIN 180 Jun 06, 2020 [id number] Dec 06, 2019 GROVE,NELLA [facility] [place] 15 TRAMADOL HCL 50MG TAB Discontinued TAKE 1 TO 2 TABLET S BY MOUTH EVERY 6 HOURS NEEDED FOR PAIN 180 Dec 14, 2019 [id number] Nov 15, 2019 ABRAMDANTE Laron MESSER [facility] [place] TRAMADOL HCL 50MG TAB Discontinued TAKE 1 TO 2 TABLET S BY MOUTH EVERY 6 HOURS NEEDED FOR PAIN 180 Jul 06, 2019 [id number] May 26, 2019 NELLA GROVE [facility] [place] TRIAMCINOLONE ACETONIDE 0.5% CREAM,TOP Active A PPLY SPARINGLY TO AFFECTED AREA ONCE A DAY NEEDED FOR RASH 45 Jul 15, 2020 [id number] April 01 0 THOM CHAMBERS [facility] [place] TRIAMCINOLONE ACETONIDE 0.5% CREAM,TOP Discontinued A PPLY SPARINGLY TO AFFECTED AREA ONCE A DAY NEEDED FOR RASH 45 Oct 12, 2019 [id number] Jul THOM CHAMBERS [facility] [place] Problems (Conditions): All [...] Source Basal cell carcinoma of scalp Active [id number] THOM CHAMBERS [facility] [place] Chronic back pain Active [id number] TERRIE CHAMBERS [facility] [place] Chronic kidney disease stage 3 Active [id number] THOM CHAMBERS [facility] [place] Constipation Active [id number] THOM CHAMBERS [facility] [place] Diabetes mellitus Active [id number] THOM CHAMBERS [facility] [place] Diabetic neuropathy Active [id number] Neha CHAMBERS [facility] [place] Essential hypertension Active [id number] THOM CHAMBERS [facility] [place] Hyperlipidemia Active 27658687 THOM CHAMBERS [facility] [place] Hypogonadism Active 25599402 THOM CHAMBERS [facility] [place] Sleep apnea Active 20994670 THOM CHAMBERS RN [facility] [employer] Radiology Reports: +/- 30 days of the encounter No Data Provided for This Section Pathology Reports: +/- 30 days of the encounter No Data Provided for This Section Encounter Notes: All associated encounter notes This section contains the clinical notes associated to the Encounter. Date/Time Encounter Note(s) Provider Source Jun 23, 2019 12:00 AM NONVA CONSULT: LOCAL TITLE: COMMUNITY CARE CONSULT RESULT NOTE EK STANDARD TITLE: NONVA CONSULT DATE OF NOTE: JUN 23, 2019 ENTRY DATE: JUL 14, 2019@11:45:55 AUTHOR: BIANCA CANAS EXP COSIGNER: URGENCY: STATUS: COMPLETED COMMUNITY CARE-EK NEPHROLOGY - [facility] Scanned document attached to this note /noa/ BINACA CANAS [facility] Signed: 07/14/2019 11:45 BIANCA CANAS [facility] [employer] DIV
--- OUTSIDE RECORDS SUMMARY | 2020-04-18 10:18 | XMS REPORT | Encounter Summary ---
Author [facility] Address [address] [place] [id number] Phone Unavailable Care Team Providers Care Health Companion Name Role Phone REYES THOM PCP Unavailable [...] MCR ([facility]) Nov 09, 2017 [id number] [phone] SIMI COVARRUBIAS PATIENT [employer] MED REP (WNR) MEDICARE ADVANTAGE MCR ([facility]) Nov 09, 2017 [id number] [phone] SIMI COVARRUBIAS PATIENT AETNA MCR ([facility]) MEDICARE ADVANTAGE MCR ([facility]) Nov 09, 2019 [id number] SIMI COVARRUBIAS PATIENT Selected Encounter This section includes the information on record at [place] for the Encounter. Date/Time Encounter Type Encounter Description Reason Provider Source Jun 13, 2019 04:00 PM Outpatient Encounter TELEPHONE/ANCILLARY [facility] Encounter Template Text not [...] 30, 2019 10:00 AM AMBULATORY - NONE [facility] Jul 07, 2019 11:45 AM [facility] - [facility] Jul 14, 2019 11:00 AM AMBULATORY - NONE [facility] [place] [facility] Jul 28, 2019 10:00 AM AMBULATORY - NONE [facility] Aug 04, 2019 11:00 AM AMBULATORY - NONE [facility] [place] [facility] Aug 16, 2019 01:00 PM AMBULATORY - NONE [facility] [place] [facility] Aug 25, 2019 10:00 AM AMBULATORY - NONE [facility] Sep 15, 2019 12:00 PM [facility] Sep 22, 2019 10:00 AM AMBULATORY - NONE [facility] Sep 23, 2019 11:00 AM [facility] - NONE [facility] [place] [facility] Oct 17, 2019 03:00 PM AMBULATORY - NONE [facility] [place] [facility] Oct 20, 2019 10:00 AM AMBULATORY - NONE [facility] Nov 10, 2019 12:00 PM AMBULATORY - MEDICINE [facility] Nov 16, 2019 02:00 PM [facility]ORY - SURGERY [facility] [place] [facility] Nov 16, 2019 03:00 PM AMBULATORY - NONE [facility] [place] [facility] Nov 17, 2019 10:00 AM AMBULATORY - NONE [facility] Dec 01, 2019 11:30 AM AMBULATORY - MEDICINE [facility] IN Dec 14, 2019 03:00 PM AMBULATORY - NONE [facility] [place] [facility] Surgical Procedures: [...] Range Comment Jul 07, 2019 09:11 AM [facility] PTH INTACT Specimen Type: PLASMA No comment entered. PTH INTACT 45.8 pg/mL 8.7-77.7 Jul 07, 2019 09:11 AM [facility] CBC & DIFF Specimen Type: BLOOD [...] 0.8 % Jul 07, 2019 09:11 AM [facility] URINALYSIS Specimen Type: URINE No comment [...] Trace /HPF Jul 07, 2019 09:11 AM [facility] MAGNESIUM (mg/dL) Specimen Type: PLASMA No comment entered. MAGNESIUM (mg/dL) 1.8 mg/dl 1.6-2.6 Jul 07, 2019 09:11 AM [facility] URIC ACID (mg/dL) Specimen Type: PLASMA No comment entered. URIC ACID (mg/dL) 6.7 mg/dL 3.5-7.2 Jul 07, 2019 09:11 AM [facility] VITAMIN D (25-OH) Specimen Type: SERUM No comment entered. VITAMIN D (25-OH) 42.9 ng/mL 30.0-96.0 Jul 07, 2019 09:11 AM [facility] MICROALBUMIN (CO,EK) Specimen Type: URINE No comment entered. *MICROALBUMIN(CONC) 46.6 mg/dL - *MICROALBUMIN(SPOT) 158 mcg/mg cr HH 0-29 *CREATININE mg/dL 295.0 mg/dl Not Avail. Jul 07, 2019 09:11 AM [facility] HEPATIC FUNCTION PANE L Specimen Type: PLASMA No comment entered. PROTEIN,TOTAL 6.1 g/dL 6.0-8.6 ALBUMIN 3.9 g/dl 3.4-5.0 TOTAL BILIRUBIN 0.4 mg/dL 0.2-1.2 DIRECT BILIRUBIN 0.2 mg/dL 0-0.5 ASPARTATE TRANSAMINASE 29 U/L 5-34 ALANINE AMINOTRANSFERASE 24 U/L 8-40 ALKALINE PHOSPHATASE 91 U/L 40-150 Jul 07, 2019 09:11 AM [facility] RENAL FUNCTION PANEL Specimen Type: PLASMA No comment entered. *CREATININE 1.22 mg/dL 0.7-1.3 UREA NITROGEN mg/dL 13 mg/dL 9-25 GLUCOSE 152 mg/dL H 72-99 SODIUM 140 mEq/L 136-145 POTASSIUM 3.3 mEq/L L 3.5-5.0 CALCIUM (mg/dL) 9.7 mg/dL 8.4-10.4 PHOSPHORUS INORGANIC 3.5 mg/dL 2.3-4.7 ALBUMIN 3.9 g/dl 3.4-5.0 CHLORIDE 99 mEq/L 98-107 CO2 31 mEq/L 22-31 EGFR 58.2 Jul 07, 2019 09:11 AM [facility] [place] [facility] TABOLIC PANEL Specimen Type: PLASMA [...] Adverse Reactions (ADR s) on record with [place] for the patient. The data comes from a ll [place] treatment facilities. It does not list Allergies/ADRs that were removed or entered in error. Some allergies/ADRs may be reported in t Immunization section. Allergen Event Date Event Type Reaction(s) Severity Source LISINOPRIL Dec 01, 2017 Propensity to adverse reactions to drug (disorder) Renal impairment [facility] 15 METFORMIN Dec 01, 2017 Propensity to adverse reactions to drug (disorder) Renal impairment [facility] 15 Medications: VA dispensed (-15 months) and Non-VA Documented (Obtained Outside V A) Section Date Range: 1) prescriptions processed by a VA pharmacy in the last 15 m [facility], and 2) all medications recorded [...] available).Discontinued = A prescription stopped by a [place] provider. It is no longer available to [...] TIMES A DAY 400 Sep 12, 2020 [id number] Feb 29, 2020 [facility] ACCU-CHEK ROSINA PLUS (GLUCOSE) TEST STRIP Discontinued USE 1 STRIP FOR TESTING FOUR TIMES A DAY 400 Sep 15, 2019 [id number] Jun 13, 2019 [facility] ALCOHOL PREP PAD Discontinued USE 1 PAD ON SKIN FOUR TIMES A DAY 40 0 Apr 25, 2020 [id number] Nov 29, 2019 [facility]IO [facility] [place] [facility] ALCOHOL PREP PAD Discontinued USE 1 PAD ON SKIN FOUR TIMES A DAY 40 0 Sep 15, 2019 [id number] Apr 18, 2019 YARAELEUTERIO Laron [facility] ALLOPURINOL 100MG TAB Active TAKE ONE TABLET BY MOUTH ONCE A DAY FOR GOUT. TAKE WITH PLENTY OF WATER 90 Sep 23, 2020 [id number] Mar 05, 2020 SILVINA CHAMBERS [facility] [place] [facility] ALLOPURINOL 100MG TAB Discontinued TAKE ONE TABLET BY MOUTH ONCE A DAY FOR GOUT. TAKE WITH PLENTY OF WATER 90 Dec 30, 2019 [id number] Sep 17, 2019 THOM SHARPE [facility] [place] [facility] ALOGLIPTIN 12.5MG TAB Active TAKE ONE TABLET BY MOUTH O NCE A DAY FOR DIABETES 90 Sep 12, 2020 [id number] Mar 04, 2020 BALTRUSAELEUTERIO QUIGLEY [facility] [place] [facility] ALOGLIPTIN 12.5MG TAB Discontinued TAKE ONE TABLET BY MOUTH ONCE A DAY FOR DIABETES 90 Dec 22, 2019 [id number] Jun 18, 2019 BALELEUTERIO KONG [facility] [place] [facility] AMLODIPINE BESYLATE 10MG TAB Discontinued TAKE ONE TA BLET BY MOUTH EVERY MORNING FOR HEART/BLOOD PRESSURE 90 Jun 10, 2019 [id number] Feb 25, 2019 MONIKA HAMMER [facility] [place] [facility] AMLODIPINE BESYLATE 10MG TAB TAKE ONE TA BLET BY MOUTH EVERY MORNING FOR HEART/BLOOD PRESSURE 90 Apr 12, 2020 [id number] Feb 10, 2020 SILVINA CHAMBERS [facility] ASPIRIN 81MG TAB,CHEWABLE Non-VA CHEW ONE TABLET BY MOUTH ONCE A DAY Non-VA Documented by: MEGAN HAWK nted at: [facility] [place] [facility] ATORVASTATIN CA 20MG TAB Active TAKE ONE TABLET BY MOUTH ONCE A DAY FOR CHOLESTEROL. REPORT ANY UNEXPLAINED MUSCLE PAIN OR WEAKNESS TO YOUR DOCTOR. 90 Jan 02, 2021 [id number] March 24, 2020 [facility] 15 ATORVASTATIN CA 40MG TAB Discontinued TAKE ONE-HALF T ABLET BY MOUTH AT BEDTIME FOR CHOLESTEROL. REPORT ANY UNEXPLAINED MUSCLE PAIN OR WEAKNESS TO YOUR DOCTOR. 45 Jul 15, 2020 [id number] Oct 14, 2019 [facility] [place] [facility] ATORVASTATIN CA 40MG TAB Discontinued TAKE ONE-HALF T ABLET BY MOUTH AT BEDTIME FOR CHOLESTEROL. REPORT ANY UNEXPLAINED MUSCLE PAIN OR WEAKNESS TO YOUR DOCTOR. 45 Oct 12, 2019 [id number] Jul 16, 2019 REYESTHOM [facility] [place] [facility] CALCIUM CARBONATE 500MG TAB,CHEWABLE Non-VA CHEW ONE TABLET BY MOUTH PRN Non-VA Documented by: THOM CHAMBERS nted at: [facility] CHLORTHALIDONE 25MG TAB Active TAKE ONE TABLET BY MOUTH ONCE A DAY 90 Jul 01, 2020 [id number] March 19, 2020 MONIKA HAMMER [facility] [place] [facility] CHLORTHALIDONE 25MG TAB Discontinued TAKE ONE TABLET BY MOUTH ONCE A DAY 90 Jun 16, 2019 [id number] Apr 12, 2019 MONIKA HAMMER [facility] [place] [facility] CHOLECALCIFEROL 1000UNT TAB Non-VA TAKE ONE TABLET BY MOUTH EVERY OTHER DAY Non-VA Docume nted by: MEGAN HAWK Docume nted at: [facility] [place] [facility] CYANOCOBALAMIN 1000MCG/ML INJ Active INJECT 100 0 MCG (1 ML) INTRAMUSCULARLY EVERY MONTH FOR B12 SUPPLEMENTATION. 3 Nov 03, 2020 [id number] Apr 23, 2020 [facility] [place] [facility] CYANOCOBALAMIN 1000MCG/ML INJ Discontinued INJECT 100 0 MCG (1 ML) INTRAMUSCULARLY EVERY MONTH FOR B12 SUPPLEMENTATION. 3 Nov 17 0 [id number] Aug 07, 2019 [facility] [place] [facility] DIPHENHYDRAMINE HCL 25MG CAP Non-VA TAKE 1 CAPSULE BY MOUTH PRN Non-VA Documented by: THOM CHAMBERS Docsammi nted at: [facility] DOCUSATE NA 100MG CAP No n-VA TAKE 2 CAPSULES BY MOUTH ONCE A DAY Non-VA Documented by: THOM CHAMBERS nted at: [facility] FISH OIL 1000MG (500MG DHA/EPA) CAP,ORAL Non-VA TAKE 1 CAPSULE BY MOUTH ONCE A DAY Non-VA Documented by: MEGAN HAWK Docume nted at: [facility] [place] [facility] GABAPENTIN 100MG CAP Active TAKE 1 CAPSULE BY M OUTH EVERY MORNING AND TAKE 1 CAPSULE BY MOUTH AT NOON AND TAKE 2 CAPSULES BY MOUTH AT BEDTIME 360 Jul 06, 2020 [id number] March 31, 2020 ELEUTERIO [facility] [place] [facility] GLUCAGON 1MG/GABRIELLA INJ,EMERGENCY KIT INJEC T 1MG SUBCUTANEOUSLY NEEDED FOR SEVERE HYPOGLYCEMIA 1 Nov 30, 2019 [id number] Nov 03, 2019 THOM CHAMBERS [facility] [place] [facility] INSULIN,ASPART,HUMAN 100U/ML,NOVOLOG,FLEXPEN,3ML Active: On Hold INJECT 20 UNITS SUBCUTANEOUSLY BEFORE BREAKFAST AND INJECT 20 UNITS BEFORE LUNCH AND INJECT 26 UNITS BEFORE SUPPER AND INJECT 24 UNITS SNACK FOR BLOOD SUGAR CONTROL. ADMINISTER 10 MINUTES BEFORE FOOD DIRECTED. REFRIGERATE UN-OPENED PENS. DISCARD CARTRIDGE 28 DAYS AFTER OPENING. PLUS CORRECTION Mar 01, 2021 [id number] ELEUTERIO LIVINGSTON [facility] [place] [facility] INSULIN,ASPART,HUMAN 100U/ML,NOVOLOG,FLEXPEN,3ML Discontinue d INJECT 20 UNITS SUBCUTANEOUSLY BEFORE BREAKFAST AND INJECT 20 UNITS BEFORE LUNCH AND INJECT 24 UNITS BEFORE SUPPER AND INJECT 24 UNITS SNACK FOR BLOOD SUGAR CONTROL. ADMINISTER 10 MINUTES BEFORE FOOD DIRECTED. REFRIGERATE UN-OPENED PENS. DISCARD CARTRIDGE 28 DAYS AFTER OPENING. PLUS CORRECTION 30 Jan 26, 2021 [id number] Jan 28, 2020 [facility] [place] [facility] INSULIN,ASPART,HUMAN 100U/ML,NOVOLOG,FLEXPEN,3ML Discontinue d INJECT 20 UNITS SUBCUTANEOUSLY BEFORE MEALS FOR BLOOD SUGAR CONTROL. ADMINISTER 10 MINUTES BEFORE FOOD DIRECTED. REFRIGERATE UN-OPENED PENS. DISCARD CARTRIDGE 28 DAYS AFTER OPENING. PLUS CORRECTION FOR BLOOD SUGAR CONTROL. ADMINISTER 10 MINUTES BEFORE FOOD DIRECTED. REFRIGERATE UN-OPENED PENS. DISCARD CARTRIDGE 28 DAYS AFTER OPENING. PLUS CORRECTION 30 Nov 16, 2020 [id number] Nov 16 [facility] [place] [facility] INSULIN,ASPART,HUMAN 100U/ML,NOVOLOG,FLEXPEN,3ML Discontinue d INJECT 15 UNITS SUBCUTANEOUSLY EVERY MORNING BEFORE MEAL AND INJECT 15 UNITS WITH LUNCH AND INJECT 15 UNITS WITH SUPPER AND INJECT 20 UNITS WITH SNACK FOR BLOOD SUGAR CONTROL. ADMINISTER 10 MINUTES BEFORE FOOD DIRECTED. REFRIGERATE UN-OPENED PENS. DISCARD CARTRIDGE 28 DAYS AFTER OPENING. Dec 22, 2019 [id number] Oct 12, 2019 [facility] [place] [facility] INSULIN,GLARGINE,HUMAN 100 UNIT/ML INJ,SOLOSTAR,3ML Active INJECT 50 UNITS SUBCUTANEOUSLY EVERY MORNING FOR BLOOD SUGAR CONTROL. ADMINISTER AT SAME TIME EACH DAY DIRECTED. DISCARD ANY OPEN CARTRIDGE AFTER 28 DAYS. Sep 23, 2020 [id number] Jan 28, 2020 [facility] [place] [facility] INSULIN,GLARGINE,HUMAN 100 UNIT/ML INJ,SOLOSTAR,3ML Disconti nued INJECT 45 UNITS SUBCUTANEOUSLY EVERY MORNING FOR BLOOD SUGAR CONTROL. ADMINISTER AT SAME TIME EACH DAY DIRECTED. DISCARD ANY OPEN CARTRIDGE AFTER 28 DAYS. Oct 23, 2019 [id number] Aug 30, 2019 [facility] [place] [facility] LACTOBACILLUS ACIDOPHILUS TAB,CHEWABLE Non-VA CHEW ONE TABLET BY MOUTH ONCE A DAY Non-VA Documented by: MEGAN HAWK nted at: [facility] [place] [facility] LANCET,SOFTCLIX Active USE LANCET 5 TIME S A DAY FOR TESTING BLOOD GLUCOSE DIRECTED 500 Dec 28, 2020 [id number] March 19, 2020 ELEUTERIO [facility] Laron [facility] [place] [facility] LANCET,SOFTCLIX Discontinued USE LANCET 5 TIME S A DAY FOR TESTING BLOOD GLUCOSE DIRECTED 500 Jan 11, 2020 [id number] Sep 29, 2019 CRYSTALUSA ITISELEUTERIO Laron [facility] [place] [facility] MAGNESIUM OXIDE 400MG TAB Non-VA TAKE ONE TABLET BY MOUTH ONCE A DAY Non-VA Documented by: MEGAN HAWK nted at: [facility] [place] [facility] METOPROLOL SUCCINATE 200MG TAB,SA TAKE O NE-HALF TABLET BY MOUTH EVERY EVENING FOR HEART/BLOOD PRESSURE. SWALLOW WHOLE, DO NOT CRUSH OR CHEW (TABLETS MAY BE CUT IN HALF). 45 March 18, 2020 [id number] Dec 28, 2019 STANISLAV HAMMER [facility] NEEDLE 22G 1.5IN USE NEEDLE FOR EVERY MONTH 1 Nov 12, 2019 [id number] Feb 07, 2019 ADELAIDA CLIFFORD [facility] [place] [facility] NEEDLE,PEN 31G,5MM Discontinued USE NEEDLE SUBCUTANE OUSLY 5 TIMES A DAY - THIS IS A SINGLE USE NEEDLE AND SHOULD BE DISCARDED AFTER USE 500 Dec 21, 2019 [id number] Sep 28, 2019 YAYAELEUTERIO QUIGLEY [facility] [place] [facility] POTASSIUM CHLORIDE 10MEQ TAB,SA Active TAKE TWO TABLETS BY MOUTH TWO TIMES A DAY FOR POTASSIUM SUPPLEMENTATIONTAKE WITH FOOD 360 Dec 12, 2020 [id number] Mar 02, 2020 YANELY QUINTERO [facility], [facility] 15 POTASSIUM CHLORIDE 10MEQ TAB,SA Discontinued TAKE ONE TABLET BY MOUTH THREE TIMES A DAY WITH MEALS FOR POTASSIUM SUPPLEMENTATIONTAKE WITH FOOD 180 March 16, 2020 [id number] Nov 29, 2019 YAYAELEUTERIO QUIGLEY [facility] [place] [facility] POTASSIUM CHLORIDE 10MEQ TAB,SA Discontinued TAKE ONE TABLET BY MOUTH THREE TIMES A DAY WITH MEALS FOR POTASSIUM SUPPLEMENTATIONTAKE WITH FOOD 180 May 26, 2019 [id number] Jan 24, 2019 YANELY QUINTERO [facility] [place] [facility] SYRINGE 2.5-3ML/NDL 25G 1IN Active USE 1 SYRINGE EVERY MONTH 3 Feb 21, 2021 [id number] March 20, 2020 [facility] SYRINGE 2.5-3ML/NDL 25G 1IN Discontinued USE 1 SYRINGE EVERY Thu 3 March 18, 2020 [id number] Dec 21, 2019 [facility]IC TESTOSTERONE CYPIONATE 200MG/ML INJ,1ML (IN OIL) Active INJECT 200 MG (1 ML) INTRAMUSCULARLY EVERY MONTH FOR HORMONE REPLACEMENT 1 May 18, 2020 [id number] April 06, 2020 ADELAIDA CLIFFORD [facility] [place] [facility] TESTOSTERONE CYPIONATE 200MG/ML INJ,1ML (IN OIL) Discontinue d INJECT 200 MG (1 ML) INTRAMUSCULARLY EVERY MONTH FOR HORMONE REPLACEMENT 1 March 25, 2020 [id number] Oct 25, 2019 ADELAIDA CLIFFORD [facility] [place] [facility] TESTOSTERONE CYPIONATE 200MG/ML INJ,1ML (IN OIL) Discontinue d INJECT 200 MG (1 ML) INTRAMUSCULARLY EVERY MONTH FOR HORMONE REPLACEMENT 1 Nov 06, 2019 [id number] Sep 25, 2019 ADELAIDA CLIFFORD [facility] [place] [facility] TESTOSTERONE CYPIONATE 200MG/ML INJ,1ML (IN OIL) Discontinue d INJECT 200 MG (1 ML) INTRAMUSCULARLY EVERY MONTH FOR HORMONE REPLACEMENT 1 May 14, 2019 [id number] Apr 10, 2019 ADELAIDA CLIFFORD [facility] [place] [facility] TRAMADOL HCL 50MG TAB Active TAKE 1 TO 2 TABLET S BY MOUTH EVERY 6 HOURS NEEDED FOR PAIN 180 Jul 21, 2020 [id number] March 30, 2020 [facility] TRAMADOL HCL 50MG TAB Discontinued TAKE 1 TO 2 TABLET S BY MOUTH EVERY 6 HOURS NEEDED FOR PAIN 180 Jun 06, 2020 [id number] Jan 11, 2020 [facility] TRAMADOL HCL 50MG TAB Discontinued TAKE 1 TO 2 TABLET S BY MOUTH EVERY 6 HOURS NEEDED FOR PAIN 180 Jun 06, 2020 [id number] Dec 06, 2019 [facility] TRAMADOL HCL 50MG TAB Discontinued TAKE 1 TO 2 TABLET S BY MOUTH EVERY 6 HOURS NEEDED FOR PAIN 180 Dec 14, 2019 [id number] Nov 15, 2019 DANTE VALVERDE AYDE [facility] [place] [facility] TRAMADOL HCL 50MG TAB Discontinued TAKE 1 TO 2 TABLET S BY MOUTH EVERY 6 HOURS NEEDED FOR PAIN 180 Jul 06, 2019 [id number] May 26, 2019 NELLA GROVE [facility] [place] [facility] TRIAMCINOLONE ACETONIDE 0.5% CREAM,TOP Active A PPLY SPARINGLY TO AFFECTED AREA ONCE A DAY NEEDED FOR RASH 45 Jul 15, 2020 [id number] April 01 0 THOM CHAMBERS [facility] [place] [facility] TRIAMCINOLONE ACETONIDE 0.5% CREAM,TOP Discontinued A PPLY SPARINGLY TO AFFECTED AREA ONCE A DAY NEEDED FOR RASH 45 Oct 12, 2019 [id number] Jul REYESTHOM [facility] [place] [facility] Problems (Conditions): All historical and [...] Source Basal cell carcinoma of scalp Active [id number] THOM CHAMBERS [facility] [place] [facility] Chronic back pain Active [id number] TERRIE CHAMBERS [facility] [place] [facility] Chronic kidney disease stage 3 Active [id number] REYES,DANA [facility] [place] [facility] Constipation Active [id number] THOM CHAMBERS [facility] [place] [facility] Diabetes mellitus Active [id number] THOM CHAMBERS [facility] [place] [facility] Diabetic neuropathy Active [id number] Neha CHAMBERS [facility] [place] [facility] Essential hypertension Active 38793617 THOM CHAMBERS [facility] [place] [facility] Hyperlipidemia Active 51249927 THOM CHAMBERS [facility] [place] [facility] Hypogonadism Active 39173881 THOM CHAMBERS [facility] [place] [facility] Sleep apnea Active [id number] THOM CHAMBERS [facility] [place] [facility] Radiology Reports: +/- 30 days of the encounter No Data Provided for This Section Pathology Reports: +/- 30 days of the encounter No Data Provided for This Section Encounter Notes: All associated encounter notes This section contains the clinical notes associated to the Encounter. Date/Time Encounter Note(s) Provider Source Jun 13, 2019 04:00 PM PHARMACY NOTE: LOCAL TITLE: EK-PHARMACY REFILL STANDARD TITLE: PHARMACY NOTE DATE OF NOTE: JUN 13, 2019@16:00 ENTRY DATE: JUN 13, 2019@16:00:38 AUTHOR: VASU GREGORIO EXP COSIGNER: URGENCY: STATUS: COMPLETED gmail request ((((((((((((((((MAIL))))))))))))))) 36) TRAMADOL HCL 50MG TAB Qty: 180 for 30 ACTIVE Issu:01-03-19 days Sig: TAKE 1 TO 2 TABLETS BY Refills: 0 Last:05-26-19 MOUTH EVERY 6 HOURS NEEDED FOR PAIN Expr:07-06-19 FUTURE APPOINTMENTS: JUN 30, 2019@10:00 Clinic: [facility] PACT NURSE NOV 03, 2019@11:30 Clinic: [facility]NONFAST [facility] N/C NOV 14, 2019@13:00 Clinic: [id number] FUTURE LISETH REMINDERS: *If approved, please renew prescription, *If denied,PLEASE CO-SIGN MOTEL FRONT DESK ATTENDANT TO NOTIFY PATIENT FOR ANY REASON FOR DENIAL *Pharmacy staff does not contact patients regarding the outcome of the request /noa/ vasu gregorio lpn NURSE Signed: 06/13/2019 16:01 Receipt Acknowledged By: 06/13/2019 16:12 /noa/ Dante clifford DO STAFF PHYSICIAN VASU GREGORIO [facility]
--- OUTSIDE RECORDS SUMMARY | 2020-04-18 10:18 | XMS REPORT | Encounter Summary ---
Author Author Department of [facility] SIMI palacio Organization [facility] of [facility] Address [address] [place] [phone] Phone Unavailable Care Team Providers Care Compensator Worker Name Role Phone THOM CHAMBERS PCP Unavailable [...] MEDICARE ADVANTAGE MCR ([place]) Nov 09, 2017 [id number] [phone] SIMI COVARRUBIAS PATIENT [facility] (R) MEDICARE ADVANTAGE MCR ([place]) Nov 09, 2017 [id number] [phone] SIMI COVARRUBIAS PATIENT [facility] ([place]) MEDICARE ADVANTAGE MCR ([place]) Nov 09, 2019 [id number] SIMI COVARRUBIAS PATIENT Selected Encounter This section includes the information on record at [place] for the Encounter. Date/Time Encounter Type Encounter Description Reason Provider Source Jun 22, 2019 04:41 PM Outpatient Encounter ADMIN PAT ACTIVTIES (MASNO NCT) [facility] [place] IHE Encounter [...] Range Comment Jul 07, 2019 09:11 AM [facility] PTH INTACT Specimen Type: PLASMA No comment entered. PTH INTACT 45.8 pg/mL 8.7-77.7 Jul 07, 2019 09:11 AM [facility] CBC [...] 0.8 % Jul 07, 2019 09:11 AM [facility] URINALYSIS [...] Trace /HPF Jul 07, 2019 09:11 AM [facility] MAGNESIUM (mg/dL) Specimen Type: PLASMA No comment entered. MAGNESIUM (mg/dL) 1.8 mg/dl 1.6-2.6 Jul 07, 2019 09:11 AM [facility] URIC ACID (mg/dL) Specimen Type: PLASMA No comment entered. URIC ACID (mg/dL) 6.7 mg/dL 3.5-7.2 Jul 07, 2019 09:11 AM [facility] VITAMIN D (25-OH) Specimen Type: SERUM No comment entered. VITAMIN D (25-OH) 42.9 ng/mL 30.0-96.0 Jul 07, 2019 09:11 AM [facility] MICROALBUMIN (CO,EK) Specimen Type: URINE No comment entered. *MICROALBUMIN(CONC) 46.6 mg/dL - *MICROALBUMIN(SPOT) 158 mcg/mg cr HH 0-29 *CREATININE mg/dL 295.0 mg/dl Not Avail. Jul 07, 2019 09:11 AM [facility] HEPATIC FUNCTION PANE L Specimen Type: PLASMA No comment entered. PROTEIN,TOTAL 6.1 g/dL 6.0-8.6 ALBUMIN 3.9 g/dl 3.4-5.0 TOTAL BILIRUBIN 0.4 mg/dL 0.2-1.2 DIRECT BILIRUBIN 0.2 mg/dL 0-0.5 ASPARTATE TRANSAMINASE 29 U/L 5-34 ALANINE AMINOTRANSFERASE 24 U/L 8-40 ALKALINE PHOSPHATASE 91 U/L 40-150 Jul 07, 2019 09:11 AM [facility] RENAL [...] EGFR 58.2 Jul 07, 2019 09:11 AM [facility] TABOLIC PANEL Specimen Type: PLASMA No comment [...] Adverse Reactions (ADR s) on record with [place] for the patient. The data comes from a ll [place] treatment facilities. It does not list Allergies/ADRs that were removed or entered in error. Some allergies/ADRs may be reported in t Immunization section. Allergen Event Date Event Type Reaction(s) Severity Source LISINOPRIL Dec 01, 2017 Propensity to adverse reactions to drug (disorder) Renal impairment [facility] 15 METFORMIN Dec 01, 2017 Propensity to adverse reactions to drug (disorder) Renal impairment [facility] 15 Medications: [facility] dispensed (-15 [...] TIMES A DAY 400 Sep 12, 2020 [id number] Feb 29, 2020 [facility] ROSINA PLUS (GLUCOSE) TEST STRIP Discontinued USE 1 STRIP FOR TESTING FOUR TIMES A DAY 400 Sep 15, 2019 [id number] Jun 13, 2019 [facility] ALCOHOL PREP PAD Discontinued USE 1 PAD ON SKIN FOUR TIMES A DAY 40 0 Apr 25, 2020 [id number] Nov 29, 2019 [facility] [place] [facility] ALCOHOL PREP PAD Discontinued USE 1 PAD ON SKIN FOUR TIMES A DAY 40 0 Sep 15, 2019 [id number] Apr 18, 2019 [facility] ALLOPURINOL 100MG TAB Active TAKE ONE TABLET BY MOUTH ONCE A DAY FOR GOUT. TAKE WITH PLENTY OF WATER 90 Sep 23, 2020 [id number] Mar 05, 2020 SILVINA CHAMBERS [facility] [place] [facility] ALLOPURINOL 100MG TAB Discontinued TAKE ONE TABLET BY MOUTH ONCE A DAY FOR GOUT. TAKE WITH PLENTY OF WATER 90 Dec 30, 2019 [id number] Sep 17, 2019 THOM SHARPE [facility] [place] [facility] ALOGLIPTIN 12.5MG TAB Active TAKE ONE TABLET BY MOUTH O NCE A DAY FOR DIABETES 90 Sep 12, 2020 [id number] Mar 04, 2020 BALTRUSAELEUTERIO QUIGLEY RN [facility] [place] ALOGLIPTIN 12.5MG TAB Discontinued TAKE ONE TABLET BY MOUTH ONCE A DAY FOR DIABETES 90 Dec 22, 2019 [id number] Jun 18, 2019 BALTRUSAITISELEUTERIO [facility] [place] [facility] AMLODIPINE BESYLATE 10MG TAB Discontinued TAKE ONE TA BLET BY MOUTH EVERY MORNING FOR HEART/BLOOD PRESSURE 90 Jun 10, 2019 [id number] Feb 25, 2019 MONIKA HAMMER [facility] [place] [facility] AMLODIPINE BESYLATE 10MG TAB TAKE ONE TA BLET BY MOUTH EVERY MORNING FOR HEART/BLOOD PRESSURE 90 Apr 12, 2020 [id number] Feb 10, 2020 SILVINA CHAMBERS [facility] ASPIRIN 81MG TAB,CHEWABLE Non-VA CHEW ONE TABLET BY MOUTH ONCE A DAY Non-VA Documented by: MEGAN HAWK nted at: [facility] DIV ATORVASTATIN CA 20MG TAB Active TAKE ONE TABLET BY MOUTH ONCE A DAY FOR CHOLESTEROL. REPORT ANY UNEXPLAINED MUSCLE PAIN OR WEAKNESS TO YOUR DOCTOR. 90 Jan 02, 2021 [id number] March 24, 2020 [facility] 15 ATORVASTATIN CA 40MG TAB Discontinued TAKE ONE-HALF T ABLET BY MOUTH AT BEDTIME FOR CHOLESTEROL. REPORT ANY UNEXPLAINED MUSCLE PAIN OR WEAKNESS TO YOUR DOCTOR. 45 Jul 15, 2020 [id number] Oct 14, 2019 [facility] [place] [facility] ATORVASTATIN CA 40MG TAB Discontinued TAKE ONE-HALF T ABLET BY MOUTH AT BEDTIME FOR CHOLESTEROL. REPORT ANY UNEXPLAINED MUSCLE PAIN OR WEAKNESS TO YOUR DOCTOR. 45 Oct 12, 2019 [id number] Jul 16, 2019 [facility] [place] [facility] CALCIUM CARBONATE 500MG TAB,CHEWABLE Non-VA CHEW ONE TABLET BY MOUTH PRN Non-VA Documented by: THOM CHAMBERS nted at: [facility] CHLORTHALIDONE 25MG TAB Active TAKE ONE TABLET BY MOUTH ONCE A DAY 90 Jul 01, 2020 [id number] March 19, 2020 MONIKA HAMMER [facility] [place] [facility] CHLORTHALIDONE 25MG TAB Discontinued TAKE ONE TABLET BY MOUTH ONCE A DAY 90 Jun 16, 2019 [id number] Apr 12, 2019 MONIKA HAMMER [facility] [place] [facility] CHOLECALCIFEROL 1000UNT TAB Non-VA TAKE ONE TABLET BY MOUTH EVERY OTHER DAY Non-VA Docume nted by: MEGAN HAWK Docume nted at: [facility] CYANOCOBALAMIN 1000MCG/ML INJ Active INJECT 100 0 MCG (1 ML) INTRAMUSCULARLY EVERY MONTH FOR B12 SUPPLEMENTATION. 3 Nov 03, 2020 [id number] Apr 23, 2020 THOM CHAMBERS [facility] CYANOCOBALAMIN 1000MCG/ML INJ Discontinued INJECT 100 0 MCG (1 ML) INTRAMUSCULARLY EVERY MONTH FOR B12 SUPPLEMENTATION. 3 Nov 17 0 [id number] Aug 07, 2019 [facility] DIPHENHYDRAMINE HCL 25MG CAP Non-VA TAKE 1 CAPSULE BY MOUTH PRN Non-VA Documented by: THOM CHAMBERS Docume nted at: [facility] DOCUSATE NA 100MG CAP No n-VA TAKE 2 CAPSULES BY MOUTH ONCE A DAY Non-VA Documented by: THOM CHAMBERS Docume nted at: [facility] FISH OIL 1000MG (500MG DHA/EPA) CAP,ORAL Non-VA TAKE 1 CAPSULE BY MOUTH ONCE A DAY Non-VA Documented by: MEGAN HAWK Docume nted at: [facility] DIV GABAPENTIN 100MG CAP Active TAKE 1 CAPSULE BY M OUTH EVERY MORNING AND TAKE 1 CAPSULE BY MOUTH AT NOON AND TAKE 2 CAPSULES BY MOUTH AT BEDTIME 360 Jul 06, 2020 [id number] March 31, 2020 BALTRELEUTERIO ROJAS L [facility] [place] GLUCAGON 1MG/GABRIELLA INJ,EMERGENCY KIT INJEC T 1MG SUBCUTANEOUSLY NEEDED FOR SEVERE HYPOGLYCEMIA 1 Nov 30, 2019 [id number] Nov 03, 2019 [facility] [place] [facility] INSULIN,ASPART,HUMAN 100U/ML,NOVOLOG,FLEXPEN,3ML Active: On Hold INJECT 20 UNITS SUBCUTANEOUSLY BEFORE BREAKFAST AND INJECT 20 UNITS BEFORE LUNCH AND INJECT 26 UNITS BEFORE SUPPER AND INJECT 24 UNITS SNACK FOR BLOOD SUGAR CONTROL. ADMINISTER 10 MINUTES BEFORE FOOD DIRECTED. REFRIGERATE UN-OPENED PENS. DISCARD CARTRIDGE 28 DAYS AFTER OPENING. PLUS CORRECTION Mar 01, 2021 [id number] [facility] [place] [facility] INSUL[facility],ASPART,HUMAN 100U/ML,NOVOLOG,FLEXPEN,3ML Discontinue d INJECT 20 UNITS SUBCUTANEOUSLY BEFORE BREAKFAST AND INJECT 20 UNITS BEFORE LUNCH AND INJECT 24 UNITS BEFORE SUPPER AND INJECT 24 UNITS SNACK FOR BLOOD SUGAR CONTROL. ADMINISTER 10 MINUTES BEFORE FOOD DIRECTED. REFRIGERATE UN-OPENED PENS. DISCARD CARTRIDGE 28 DAYS AFTER OPENING. PLUS CORRECTION 30 Jan 26, 2021 [id number] Jan 28, 2020 [facility] [place] [facility] INSULIN,ASPART,HUMAN 100U/ML,NOVOLOG,FLEXPEN,3ML Discontinue d INJECT 20 UNITS SUBCUTANEOUSLY BEFORE MEALS FOR BLOOD SUGAR CONTROL. ADMINISTER 10 MINUTES BEFORE FOOD DIRECTED. REFRIGERATE UN-OPENED PENS. DISCARD CARTRIDGE 28 DAYS AFTER OPENING. PLUS CORRECTION FOR BLOOD SUGAR CONTROL. ADMINISTER 10 MINUTES BEFORE FOOD DIRECTED. REFRIGERATE UN-OPENED PENS. DISCARD CARTRIDGE 28 DAYS AFTER OPENING. PLUS CORRECTION Nov 16, 2020 [id number] Nov 16 [facility] [place] [facility] INSULIN,ASPART,HUMAN 100U/ML,NOVOLOG,FLEXPEN,3ML Discontinue d INJECT 15 UNITS SUBCUTANEOUSLY EVERY MORNING BEFORE MEAL AND INJECT 15 UNITS WITH LUNCH AND INJECT 15 UNITS WITH SUPPER AND INJECT 20 UNITS WITH SNACK FOR BLOOD SUGAR CONTROL. ADMINISTER 10 MINUTES BEFORE FOOD DIRECTED. REFRIGERATE UN-OPENED PENS. DISCARD CARTRIDGE 28 DAYS AFTER OPENING. Dec 22, 2019 [id number] Oct 12, 2019 [facility] [place] [facility] INSULIN,GLARGINE,HUMAN 100 UNIT/ML INJ,SOLOSTAR,3ML Active INJECT 50 UNITS SUBCUTANEOUSLY EVERY MORNING FOR BLOOD SUGAR CONTROL. ADMINISTER AT SAME TIME EACH DAY DIRECTED. DISCARD ANY OPEN CARTRIDGE AFTER 28 DAYS. Sep 23, 2020 [id number] Jan 28, 2020 [facility] [place] [facility] INSULIN,GLARGINE,HUMAN 100 UNIT/ML INJ,SOLOSTAR,3ML Disconti nued INJECT 45 UNITS SUBCUTANEOUSLY EVERY MORNING FOR BLOOD SUGAR CONTROL. ADMINISTER AT SAME TIME EACH DAY DIRECTED. DISCARD ANY OPEN CARTRIDGE AFTER 28 DAYS. Oct 23, 2019 [id number] Aug 30, 2019 ELEUTERIO LIVINGSTON [facility] LACTOBACILLUS ACIDOPHILUS TAB,CHEWABLE Non-VA CHEW ONE TABLET BY MOUTH ONCE A DAY Non-VA Documented by: MEGAN HAWK [facility] LANCET,SOFTCLIX Active USE LANCET 5 TIME S A DAY FOR TESTING BLOOD GLUCOSE DIRECTED 500 Dec 28, 2020 [id number] March 19, 2020 LYNDATRUSAELEUTERIO QUIGLEY [facility] [place] [facility] LANCET,SOFTCLIX Discontinued USE LANCET 5 TIME S A DAY FOR TESTING BLOOD GLUCOSE DIRECTED 500 Jan 11, 2020 [id number] Sep 29, 2019 YAYA [facility]UTERIO [facility] MAGNESIUM OXIDE 400MG TAB Non-VA TAKE ONE TABLET BY MOUTH ONCE A DAY Non-VA Documented by: MEGAN HAWKed at: [facility] METOPROLOL SUCCINATE 200MG TAB,SA TAKE O NE-HALF TABLET BY MOUTH EVERY EVENING FOR HEART/BLOOD PRESSURE. SWALLOW WHOLE, DO NOT CRUSH OR CHEW (TABLETS MAY BE CUT IN HALF). 45 March 18, 2020 [id number] Dec 28, [address] [facility] NEEDLE 22G 1.5IN USE NEEDLE FOR EVERY MONTH 1 Nov 12, 2019 [id number] Feb 07, 2019 ADELAIDA CLIFFORD [facility] [place] [facility] NEEDLE,PEN 31G,5MM Discontinued USE NEEDLE SUBCUTANE OUSLY 5 TIMES A DAY - THIS IS A SINGLE USE NEEDLE AND SHOULD BE DISCARDED AFTER USE 500 Dec 21, 2019 [id number] Sep 28, 2019 ELEUTERIO LIVINGSTON Laron [facility] [place] [facility] POTASSIUM CHLORIDE 10MEQ TAB,SA Active TAKE TWO TABLETS BY MOUTH TWO TIMES A DAY FOR POTASSIUM SUPPLEMENTATIONTAKE WITH FOOD 360 Dec 12, 2020 [id number] Mar 02, 2020 YANELY QUINTERO [facility] [place] 15 POTASSIUM CHLORIDE 10MEQ TAB,SA Discontinued TAKE ONE TABLET BY MOUTH THREE TIMES A DAY WITH MEALS FOR POTASSIUM SUPPLEMENTATIONTAKE WITH FOOD 180 March 16, 2020 [id number] Nov 29, 2019 BALELEUTERIO KONG Laron [facility] [place] [facility] POTASSIUM CHLORIDE 10MEQ TAB,SA Discontinued TAKE ONE TABLET BY MOUTH THREE TIMES A DAY WITH MEALS FOR POTASSIUM SUPPLEMENTATIONTAKE WITH FOOD 180 May 26, 2019 [id number] Jan 24, 2019 YANELY QUINTERO [facility] [place] SYRINGE 2.5-3ML/NDL 25G 1IN Active USE 1 SYRINGE EVERY MONTH 3 Feb 21, 2021 [id number] March 20, 2020 [facility] SYRINGE 2.5-3ML/NDL 25G 1IN Discontinued USE 1 SYRINGE EVERY Thu 3 March 18, 2020 [id number] Dec 21, 2019 [facility]IC TESTOSTERONE CYPIONATE 200MG/ML INJ,1ML (IN OIL) Active INJECT 200 MG (1 ML) INTRAMUSCULARLY EVERY MONTH FOR HORMONE REPLACEMENT 1 May 18, 2020 [id number] April 06, 2020 ADELAIDA CLIFFORD [facility] [place] [facility] TESTOSTERONE CYPIONATE 200MG/ML INJ,1ML (IN OIL) Discontinue d INJECT 200 MG (1 ML) INTRAMUSCULARLY EVERY MONTH FOR HORMONE REPLACEMENT March 25, 2020 [id number] Oct 25, 2019 ADELAIDA CLIFFORD [facility] [place] [facility] TESTOSTERONE CYPIONATE 200MG/ML INJ,1ML (IN OIL) Discontinue d INJECT 200 MG (1 ML) INTRAMUSCULARLY EVERY MONTH FOR HORMONE REPLACEMENT 1 Nov 06, 2019 [id number] Sep 25, 2019 ADELAIDA CLIFFORD [facility] [place] [facility] TESTOSTERONE CYPIONATE 200MG/ML INJ,1ML (IN OIL) Discontinue d INJECT 200 MG (1 ML) INTRAMUSCULARLY EVERY MONTH FOR HORMONE REPLACEMENT 1 May 14, 2019 [id number] Apr 10, 2019 ADELAIDA CLIFFORD [facility] [place] [facility] TRAMADOL HCL 50MG TAB Active TAKE 1 TO 2 TABLET S BY MOUTH EVERY 6 HOURS NEEDED FOR PAIN 180 Jul 21, 2020 [id number] March 30, 2020 [facility] TRAMADOL HCL 50MG TAB Discontinued TAKE 1 TO 2 TABLET S BY MOUTH EVERY 6 HOURS NEEDED FOR PAIN 180 Jun 06, 2020 [id number] Jan 11, 2020 [facility] 15 TRAMADOL HCL 50MG TAB Discontinued TAKE 1 TO 2 TABLET S BY MOUTH EVERY 6 HOURS NEEDED FOR PAIN 180 Jun 06, 2020 [id number] Dec 06, 2019 [facility] 15 TRAMADOL HCL 50MG TAB Discontinued TAKE 1 TO 2 TABLET S BY MOUTH EVERY 6 HOURS NEEDED FOR PAIN 180 Dec 14, 2019 [id number] Nov 15, 2019 ABRAMDANTE AYDE [facility] [place] [facility] TRAMADOL HCL 50MG TAB Discontinued TAKE 1 TO 2 TABLET S BY MOUTH EVERY 6 HOURS NEEDED FOR PAIN 180 Jul 06, 2019 [id number] May 26, 2019 NELLA GROVE [facility] [place] [facility] TRIAMCINOLONE ACETONIDE 0.5% CREAM,TOP Active A PPLY SPARINGLY TO AFFECTED AREA ONCE A DAY NEEDED FOR RASH 45 Jul 15, 2020 [id number] April 01 0 THOM CHAMBERS [facility] [place] [facility] TRIAMCINOLONE ACETONIDE 0.5% CREAM,TOP Discontinued A PPLY SPARINGLY TO AFFECTED AREA ONCE A DAY NEEDED FOR RASH 45 Oct 12, 2019 [id number] Jul THOM CHAMBERS [facility] [place] [facility] Problems (Conditions): All historical and current Section Date Range: From patient's date of to the date document was create d. This section includes a list of Problems (Conditions) know n to [place] for the patient. It includes both active and inacti ve problems (conditions). The data comes from all [place] treatment facilities. Problem Status Problem Code Date of Onset Date of Resolution Comm ent(s) Provider Source Basal cell carcinoma of scalp Active [id number] THOM CHAMBERS [facility] [place] [facility] Chronic back pain Active [id number] TERRIE CHAMBERS [facility] [place] [facility] Chronic kidney disease stage 3 Active 491909916 THOM CHAMBERS [facility] [place] [facility] Constipation Active 14204005 THOM CHAMBERS [facility] [place] [facility] Diabetes mellitus Active 09515902 THOM CHAMBERS [facility] [place] [facility] Diabetic neuropathy Active [id number] Neha CHAMBERS [facility] [place] [facility] Essential hypertension Active 83929041 THOM CHAMBERS [facility] [place] [facility] Hyperlipidemia Active 07892730 THOM CHAMBERS [facility] [place] [facility] Hypogonadism Active 82129010 THOM CHAMBERS [facility] [place] [facility] Sleep apnea Active 55111323 THOM CHAMBERS [facility] [place] Radiology Reports: +/- 30 days of the encounter No Data Provided for This Section Pathology Reports: +/- 30 days of the encounter No Data Provided for This Section Encounter Notes: All associated encounter notes This section contains the clinical notes associated to the Encounter. Date/Time Encounter Note(s) Provider Source Jun 22, 2019 04:56 PM CARE MANAGEMENT NOTE: LOCAL TITLE: EK-PACT CARE MANAGEMENT STANDARD TITLE: CARE MANAGEMENT NOTE DATE OF NOTE: JUN 22, 2019@16:56 ENTRY DATE: JUN 22, 2019@16:56:11 AUTHOR: ALLA NARAYANAN EXP COSIGNER: URGENCY: STATUS: COMPLETED EK-PACT CARE MANAGEMENT Has ADDENDA PC from vet stating that his [facility] primary care with Dr. Grove on 06-07-19 and needs a new consult placed. He was informed that he currently has [facility] and will probably need to be cancelled since [facility] is [facility] with his local provider. He can continue to have all other services within the [facility] to include urology, CDM, etc. Suggest he keep this next [place] appt on 06-[address] Grove may not be approved by then. After that [place] appt, he can get his [place] injections locally with Dr. Grove. He v/u. [facility] primary care consult entered for provider signing if agreeable. Forward to provider for possible cancellation of March and April 2020 [facility] primary [facility] appts and unassigning . Forward to [place] providers for notification re future [place] appts. /es/ ALLA NARAYANAN RN Signed: 06/22/2019 17:04 Receipt Acknowledged By: 06/23/2019 07:38 /es/ BARBARA ULLOA IS RN, BSN 06/30/2019 11:40 /es/ DARIO ULLOA IS BPO SPECIALIST 06/22/2019 19:19 /es/ THOM INGRAM 06/22/2019 ADDENDUM STATUS: COMPLETED Vet to receive primary care thru local pcp/[place] [facility]. please have vet unassigned from provider /noa/ THOM INGRAM Signed: 06/22/2019 19:21 Receipt Acknowledged By: 06/23/2019 07:27 /es/ KILLIAN Larry MA RTIN 06/23/2019 07:22 /es/ REMY RODRIGUEZ senior medical writer ALLA NARAYANAN [facility]
--- OUTSIDE RECORDS SUMMARY | 2020-04-18 10:19 | XMS REPORT | Encounter Summary ---
Author Author Department [facility] SIMI palacio Organization Department of [facility] Address [address] [place] [id number] Phone Unavailable Care Team Providers Care Propeller Tester Name Role Phone THOM CHAMBERS PCP Unavailable [...] FREEDOM MED REP (R) MEDICARE ADVANTAGE MCR ([facility]) Nov 09, 2017 [id number] [phone] SIMI COVARRUBIAS PATIENT ADVANTRA FREEDOM MED REP (WNR) MEDICARE ADVANTAGE MCR ([facility]) Nov 09, 2017 [id number] [phone] SIMI COVARRUBIAS PATIENT AETNA MCR (WN) MEDICARE ADVANTAGE MCR ([facility]) Nov 09, 2019 [id number] [id number] SIMI COVARRUBIAS PATIENT Selected Encounter This section includes the information on record at [facility] for the Encounter. Date/Time Encounter Type Encounter Description Reason Provider Source Jun 01, 2019 02:00 PM Outpatient Encounter PRIMARY CARE/MEDICINE ICD-10-CM E29.1 Testicular hypofunction with Provider Comments: Testicular Hypofunction THOM CHAMBERS [facility] IHE Encounter Template Text not used by [facility] Assessments - Encounter Diagnoses This section includes the primary and secondary diag noses documented for the Encounter. Date/Time Primary/Secondary Diagnosis Diagnosis Name Provider Source Jun 01, 2019 02:11 PM PRIMARY Testicular hypofunction Ro DAVID [facility] Plan of Treatment: Future Appointments (+ 6 [...] Appointment Type Appointment Facili ty Name Jun 09, 2019 03:30 PM AM[facility]ORY [facility] NONE [facility] Jun 30, 2019 10:00 AM AM[facility]ATORY - NONE [facility] Jul 07, 2019 11:45 AM AM[facility]ULATORY - MEDICINE [facility] Jul 14, 2019 11:00 AM [facility] N[facility] Jul 28, 2019 10:00 AM AMBULATORY - NONE [facility] Aug 04, 2019 11:00 AM AM[facility]ORY - NONE [facility] Aug 16, 2019 01:00 PM AMBULATORY - NONE [facility] Aug 25, 2019 10:00 AM AMBULATORY - NONE [facility] Sep 15, 2019 12:00 PM AMBULATORY - MEDICINE [facility] Sep 22, 2019 10:00 AM AMBULATORY - NONE [facility] Sep 23, 2019 11:00 AM [facility] Oct 17, 2019 03:00 PM AM[facility]ORY - NONE [facility] Oct 20, 2019 10:00 AM AMBULATORY - NONE [facility] Nov 10, 2019 12:00 PM [facility] Nov 16, 2019 02:00 PM [facility] [place] [facility] Nov 16, 2019 03:00 PM [facility] - N[facility] Nov 17, 2019 10:00 AM AMBULATORY - NONE [facility] Dec 01, 2019 11:30 AM AMBULATORY - MEDICINE [facility] Surgical Procedures: All associated to the [...] Height Weight Body Mass Index Source Jun 01, 2019 02:05 PM 0 [facility] Jun 01, 2019 02:03 PM 97.2 F 76 /min 126/74 mm[Hg] 20 /min 94 % 0 176 lb 30 [facility] Immunizations: All administered on the encounter date No Data Provided for This Section Social History: Smoking Status (Most current) and Tobacco Use (All prior to enco unter date) This section includes the most current, and the historical, smoking and tobacco- related health factors from the [facility] facility where the Encounter took place. Current Smoking Status This section includes the most current smoking, or tobacco -related health factor, from the [facility] facility where the Encounter took place. Date/Time Current Smoking Status Comment Facility Nov 03, 2018 07:59 AM [facility]-TOBACCO QUIT 15 YRS OR MORE [facility] Tobacco Use History This section includes a history of the smoking, or tobacco -related health factors, that were collected on or before the date of the Encoun ter. The data comes from the [facility] facility where the Encounter took place. Date/Time Smoking Status/Tobacco Use Comment [facility] it Nov 03, 2018 07:59 AM VA-TOBACCO QUIT 15 YRS OR MORE [facility] Oct 23, 2017 07:35 AM TOBACCO LIFETIME NON-USER [facility] Advance Directives: All historical and current No Data Provided for This Section Allergies and Adverse Reactions (ADRs): All historical and current Section Date Range: From patient's date of to the date document was create d. This section includes Allergies and Adverse Reactions (ADR s) on record with [facility] for the patient. The data comes from a [facility] treatment facilities. It does not list Allergies/ADRs that were removed or entered in error. Some allergies/ADRs may be reported in t Immunization section. Allergen Event Date Event Type Reaction(s) Severity Source LISINOPRIL Dec 01, 2017 Propensity to adverse reactions to drug (disorder) Renal impairment [facility] 15 METFORMIN Dec 01, 2017 Propensity to adverse reactions to drug (disorder) [facility] Medications: [facility] dispensed (-15 months) and Non-VA Documented (Obtained Outside V A) Section Date Range: 1) prescriptions processed by a [facility] pharmacy in the last 15 m [facility], and 2) all medications [...] TIMES A DAY 400 Sep 12, 2020 [id number] Feb 29, 2020 REGGIE LIVINGSTON [facility] ACCU-CHEK ROSINA PLUS (GLUCOSE) TEST STRIP Discontinued USE 1 STRIP FOR TESTING FOUR TIMES A DAY 400 Sep 15, 2019 [id number] Jun 13, 2019 ELEUTERIO MAURO [facility] ALCOHOL PREP PAD Discontinued USE 1 PAD ON SKIN FOUR TIMES A DAY 40 0 Apr 25, 2020 [id number] Nov 29, 2019 ELEUTERIO LIVINGSTON [facility] [place] [facility] ALCOHOL PREP PAD Discontinued USE 1 PAD ON SKIN FOUR TIMES A DAY 40 0 Sep 15, 2019 [id number] Apr 18, 2019 ELEUTERIO LIVINGSTON [facility] ALLOPURINOL 100MG TAB Active TAKE ONE TABLET BY MOUTH ONCE A DAY FOR GOUT. TAKE WITH PLENTY OF WATER 90 Sep 23, 2020 [id number] Mar 05, 2020 SILVINA CHAMBERS [facility] [facility] ALLOPURINOL 100MG TAB Discontinued TAKE ONE TABLET BY MOUTH ONCE A DAY FOR GOUT. TAKE WITH PLENTY OF WATER 90 Dec 30, 2019 [id number] Sep 17, 2019 THOM SOLIS [facility] [place] [facility] ALOGLIPTIN 12.5MG TAB Active TAKE ONE TABLET BY MOUTH O NCE A DAY FOR DIABETES 90 Sep 12, 2020 [id number] Mar 04, 2020 BALTRUSAELEUTERIO QUIGLEY RN [facility] [place] [facility] ALOGLIPTIN 12.5MG TAB Discontinued TAKE ONE TABLET BY MOUTH ONCE A DAY FOR DIABETES 90 Dec 22, 2019 [id number] Jun 18, 2019 BALTRUSAELEUTERIO QUIGLEY [facility] [place] [facility] AMLODIPINE BESYLATE 10MG TAB Discontinued TAKE ONE TA BLET BY MOUTH EVERY MORNING FOR HEART/BLOOD PRESSURE 90 Jun 10, 2019 [id number] Feb 25, 2019 MONIKA RIVERA [facility] [place] [facility] AMLODIPINE BESYLATE 10MG TAB TAKE ONE TA BLET BY MOUTH EVERY MORNING FOR HEART/BLOOD PRESSURE 90 Apr 12, 2020 [id number] Feb 10, 2020 SILVINA CHAMBERS [facility] ASPIRIN 81MG TAB,CHEWABLE Non-VA CHEW ONE TABLET BY MOUTH ONCE A DAY Non-VA Documented by: MEGAN HAWK nted at: [facility] ATORVASTATIN CA 20MG TAB Active TAKE ONE TABLET BY MOUTH ONCE A DAY FOR CHOLESTEROL. REPORT ANY UNEXPLAINED MUSCLE PAIN OR WEAKNESS TO YOUR DOCTOR. 90 Jan 02, 2021 [id number] March 24, 2020 NELLA [facility] [place] 15 ATORVASTATIN CA 40MG TAB Discontinued TAKE ONE-HALF T ABLET BY MOUTH AT BEDTIME FOR CHOLESTEROL. REPORT ANY UNEXPLAINED MUSCLE PAIN OR WEAKNESS TO YOUR DOCTOR. 45 Jul 15, 2020 [id number] Oct 14, 2019 THOM CHAMBERS [facility] [place] [facility] ATORVASTATIN CA 40MG TAB Discontinued TAKE ONE-HALF T ABLET BY MOUTH AT BEDTIME FOR CHOLESTEROL. REPORT ANY UNEXPLAINED MUSCLE PAIN OR WEAKNESS TO YOUR DOCTOR. 45 Oct 12, 2019 [id number] Jul 16, 2019 THOM CHAMBERS [facility] [place] [facility] CALCIUM CARBONATE 500MG TAB,CHEWABLE Non-VA CHEW ONE TABLET BY MOUTH PRN Non-VA Documented by: THOM CHAMBERSume nted at: [facility] CHLORTHALIDONE 25MG TAB Active TAKE ONE TABLET BY MOUTH ONCE A DAY 90 Jul 01, 2020 [id number] March 19, 2020 MONIKA HAMMER [facility] [place] [facility] CHLORTHALIDONE 25MG TAB Discontinued TAKE ONE TABLET BY MOUTH ONCE A DAY 90 Jun 16, 2019 [id number] Apr 12, 2019 MONIKA HAMMER [facility] [place] [facility] CHOLECALCIFEROL 1000UNT TAB Non-VA TAKE ONE TABLET BY MOUTH EVERY OTHER DAY Non-VA Docume nted by: MEGAN HAWK Docume nted at: [facility] CYANOCOBALAMIN 1000MCG/ML INJ Active INJECT 100 0 MCG (1 ML) INTRAMUSCULARLY EVERY MONTH FOR B12 SUPPLEMENTATION. 3 Nov 03, 2020 [id number] Apr 23, 2020 THOM CHAMBERS [facility] [facility] CYANOCOBALAMIN 1000MCG/ML INJ Discontinued INJECT 100 0 MCG (1 ML) INTRAMUSCULARLY EVERY MONTH FOR B12 SUPPLEMENTATION. 3 Nov 17 0 [id number] Aug 07, 2019 THOM CHAMBERS [facility] DIPHENHYDRAMINE HCL 25MG CAP [...] Non-VA Documented by: MEGAN HAWKume nted at: [facility] GABAPENTIN 100MG CAP Active TAKE 1 CAPSULE BY M OUTH EVERY MORNING AND TAKE 1 CAPSULE BY MOUTH AT NOON AND TAKE 2 CAPSULES BY MOUTH AT BEDTIME 360 Jul 06, 2020 [id number] March 31, 2020 BALTRELEUTERIO ROJAS [facility] [place] [facility] GLUCAGON 1MG/GABRIELLA INJ,EMERGENCY KIT INJEC T 1MG SUBCUTANEOUSLY NEEDED FOR SEVERE HYPOGLYCEMIA 1 Nov 30, 2019 [id number] Nov 03, 2019 THOM CHAMBERS [facility] [place] [facility] INSULIN,ASPART,HUMAN 100U/ML,NOVOLOG,FLEXPEN,3ML Active: On Hold INJECT 20 UNITS SUBCUTANEOUSLY BEFORE BREAKFAST AND INJECT 20 UNITS BEFORE LUNCH AND INJECT 26 UNITS BEFORE SUPPER AND INJECT 24 UNITS SNACK FOR BLOOD SUGAR CONTROL. ADMINISTER 10 MINUTES BEFORE FOOD DIRECTED. REFRIGERATE UN-OPENED PENS. DISCARD CARTRIDGE 28 DAYS AFTER OPENING. PLUS CORRECTION Mar 01, 2021 [id number] [facility] INSULIN,ASPART,HUMAN 100U/ML,NOVOLOG,FLEXPEN,3ML Discontinue d INJECT 20 UNITS SUBCUTANEOUSLY BEFORE BREAKFAST AND INJECT 20 UNITS BEFORE LUNCH AND INJECT 24 UNITS BEFORE SUPPER AND INJECT 24 UNITS SNACK FOR BLOOD SUGAR CONTROL. ADMINISTER 10 MINUTES BEFORE FOOD DIRECTED. REFRIGERATE UN-OPENED PENS. DISCARD CARTRIDGE 28 DAYS AFTER OPENING. PLUS CORRECTION Jan 26, 2021 [id number] Jan 28, 2020 [facility] INSULIN,ASPART,HUMAN 100U/ML,NOVOLOG,FLEXPEN,3ML Discontinue d INJECT 20 UNITS SUBCUTANEOUSLY BEFORE MEALS FOR BLOOD SUGAR CONTROL. ADMINISTER 10 MINUTES BEFORE FOOD DIRECTED. REFRIGERATE UN-OPENED PENS. DISCARD CARTRIDGE 28 DAYS AFTER OPENING. PLUS CORRECTION FOR BLOOD SUGAR CONTROL. ADMINISTER 10 MINUTES BEFORE FOOD DIRECTED. REFRIGERATE UN-OPENED PENS. DISCARD CARTRIDGE 28 DAYS AFTER OPENING. PLUS CORRECTION Nov 16, 2020 [id number] Nov 16 [facility] [place] [facility] INSULIN,ASPART,HUMAN 100U/ML,NOVOLOG,FLEXPEN,3ML Discontinue d INJECT 15 UNITS SUBCUTANEOUSLY EVERY MORNING BEFORE MEAL AND INJECT 15 UNITS WITH LUNCH AND INJECT 15 UNITS WITH SUPPER AND INJECT 20 UNITS WITH SNACK FOR BLOOD SUGAR CONTROL. ADMINISTER 10 MINUTES BEFORE FOOD DIRECTED. REFRIGERATE UN-OPENED PENS. DISCARD CARTRIDGE 28 DAYS AFTER OPENING. Dec 22, 2019 [id number] Oct 12, 2019 [facility] [place] [facility] INSULIN,GLARGINE,HUMAN 100 UNIT/ML INJ,SOLOSTAR,3ML Active INJECT 50 UNITS SUBCUTANEOUSLY EVERY MORNING FOR BLOOD SUGAR CONTROL. ADMINISTER AT SAME TIME EACH DAY DIRECTED. DISCARD ANY OPEN CARTRIDGE AFTER 28 DAYS. Sep 23, 2020 [id number] Jan 28, 2020 [facility] [place] INSULIN,GLARGINE,HUMAN 100 UNIT/ML INJ,SOLOSTAR,3ML Disconti nued INJECT 45 UNITS SUBCUTANEOUSLY EVERY MORNING FOR BLOOD SUGAR CONTROL. ADMINISTER AT SAME TIME EACH DAY DIRECTED. DISCARD ANY OPEN CARTRIDGE AFTER 28 DAYS. 15 Oct 23, 2019 [id number] Aug 30, 2019 ELEUTERIO LIVINGSTON [facility] LACTOBACILLUS ACIDOPHILUS TAB,CHEWABLE Non-VA CHEW ONE TABLET BY MOUTH ONCE A DAY Non-VA Documented by: MEGAN HAWK nted at: [facility] LANCET,SOFTCLIX Active USE LANCET 5 TIME S A DAY FOR TESTING BLOOD GLUCOSE DIRECTED 500 Dec 28, 2020 [id number] March 19, 2020 YARAELEUTERIO Laron [facility] [place] [facility] LANCET,SOFTCLIX Discontinued USE LANCET 5 TIME S A DAY FOR TESTING BLOOD GLUCOSE DIRECTED 500 Jan 11, 2020 [id number] Sep 29, 2019 ELEUTERIO PATEL [facility] [place] [facility] MAGNESIUM OXIDE 400MG TAB Non-VA TAKE ONE TABLET BY MOUTH ONCE A DAY Non-VA Documented by: MEGAN HAWK nted at: [facility] METOPROLOL SUCCINATE 200MG TAB,SA TAKE O NE-HALF TABLET BY MOUTH EVERY EVENING FOR HEART/BLOOD PRESSURE. SWALLOW WHOLE, DO NOT CRUSH OR CHEW (TABLETS MAY BE CUT IN HALF). 45 March 18, 2020 [id number] Dec 28, 2019 STANISLAV HAMMER [facility] NEEDLE 22G 1.5IN USE NEEDLE FOR EVERY MONTH 1 Nov 12, 2019 [id number] Feb 07, 2019 ADELAIDA CLIFFORD [facility] [place] [facility] NEEDLE,PEN 31G,5MM Discontinued USE NEEDLE SUBCUTANE OUSLY 5 TIMES A DAY - THIS IS A SINGLE USE NEEDLE AND SHOULD BE DISCARDED AFTER USE 500 Dec 21, 2019 [id number] Sep 28, 2019 ELEUTERIO LIVINGSTON [facility] [place] [facility] POTASSIUM CHLORIDE 10MEQ TAB,SA Active TAKE TWO TABLETS BY MOUTH TWO TIMES A DAY FOR POTASSIUM SUPPLEMENTATIONTAKE WITH FOOD 360 Dec 12, 2020 [id number] Mar 02, 2020 YANELY QUINTERO [facility] 15 POTASSIUM CHLORIDE 10MEQ TAB,SA Discontinued TAKE ONE TABLET BY MOUTH THREE TIMES A DAY WITH MEALS FOR POTASSIUM SUPPLEMENTATIONTAKE WITH FOOD 180 March 16, 2020 [id number] Nov 29, 2019 BALTRUSAITIS,[facility]ERIO L [facility] [place] [facility] POTASSIUM CHLORIDE 10MEQ TAB,SA Discontinued TAKE ONE TABLET BY MOUTH THREE TIMES A DAY WITH MEALS FOR POTASSIUM SUPPLEMENTATIONTAKE WITH FOOD 180 May 26, 2019 [id number] Jan 24, 2019 YANELY QUINTERO [facility] [place] [facility] SYRINGE 2.5-3ML/NDL 25G 1IN Active USE 1 SYRINGE EVERY MONTH 3 Feb 21, 2021 [id number] March 20, 2020 [facility] SYRINGE 2.5-3ML/NDL 25G 1IN Discontinued USE 1 SYRINGE EVERY Thu 3 March 18, 2020 [id number] Dec 21, 2019 [facility] TESTOSTERONE CYPIONATE 200MG/ML INJ,1ML (IN OIL) Active INJECT 200 MG (1 ML) INTRAMUSCULARLY EVERY MONTH FOR HORMONE REPLACEMENT 1 May 18, 2020 [id number] April 06, 2020 ADELAIDA CLIFFORD [facility] [place] [facility] TESTOSTERONE CYPIONATE 200MG/ML INJ,1ML (IN OIL) Discontinue d INJECT 200 MG (1 ML) INTRAMUSCULARLY EVERY MONTH FOR HORMONE REPLACEMENT 1 March 25, 2020 [id number] Oct 25, 2019 ADELAIDA CLIFFORD [facility] [facility] TESTOSTERONE CYPIONATE 200MG/ML INJ,1ML (IN OIL) Discontinue d INJECT 200 MG (1 ML) INTRAMUSCULARLY EVERY MONTH FOR HORMONE REPLACEMENT 1 Nov 06, 2019 [id number] Sep 25, 2019 ADELAIDA CLIFFORD [facility] [place] [facility] TESTOSTERONE CYPIONATE 200MG/ML INJ,1ML (IN OIL) Discontinue d INJECT 200 MG (1 ML) INTRAMUSCULARLY EVERY MONTH FOR HORMONE REPLACEMENT 1 May 14, 2019 [id number] Apr 10, 2019 ADELAIDA CLIFFORD [facility] [facility] TRAMADOL HCL 50MG TAB Active TAKE 1 TO 2 TABLET S BY MOUTH EVERY 6 HOURS NEEDED FOR PAIN 180 Jul 21, 2020 [id number] March 30, 2020 [facility]A [facility] 15 TRAMADOL HCL 50MG TAB Discontinued TAKE 1 TO 2 TABLET S BY MOUTH EVERY 6 HOURS NEEDED FOR PAIN 180 Jun 06, 2020 [id number] Jan 11, 2020 ROSSY [facility] 15 TRAMADOL HCL 50MG TAB Discontinued TAKE 1 TO 2 TABLET S BY MOUTH EVERY 6 HOURS NEEDED FOR PAIN 180 Jun 06, 2020 [id number] Dec 06, 2019 ROSSY [facility] [place] 15 TRAMADOL HCL 50MG TAB Discontinued TAKE 1 TO 2 TABLET S BY MOUTH EVERY 6 HOURS NEEDED FOR PAIN 180 Dec 14, 2019 [id number] Nov 15, 2019 DANTE VALVERDE [facility] [place] [facility] TRAMADOL HCL 50MG TAB Discontinued TAKE 1 TO 2 TABLET S BY MOUTH EVERY 6 HOURS NEEDED FOR PAIN 180 Jul 06, 2019 [id number] May 26, 2019 GROVEROSSY [facility] [place] [facility] TRIAMCINOLONE ACETONIDE 0.5% CREAM,TOP Active A PPLY SPARINGLY TO AFFECTED AREA ONCE A DAY NEEDED FOR RASH 45 Jul 15, 2020 [id number] April 01 0 [facility] [place] [facility] TRIAMCINOLONE ACETONIDE 0.5% CREAM,TOP Discontinued A PPLY SPARINGLY TO AFFECTED AREA ONCE A DAY NEEDED FOR RASH 45 Oct 12, 2019 [id number] Jul [facility] [place] [facility] Problems (Conditions): All historical and [...] Source Basal cell carcinoma of scalp Active [id number] REYES,DANA [facility] [place] [facility] Chronic back pain [facility] [id number] [facility] [place] [facility] Chronic kidney disease stage 3 Active [id number] [facility] [place] [facility] Constipation Active [id number] TH[facility] CH[facility] [place] [facility] Diabetes mellitus Active 51963042 [facility] [place] [facility] Diabetic neuropathy Active [id number] Neha CHAMBERS [facility] [place] [facility] Essential hypertension Active [id number] THOM CHAMBERS [facility] [place] [facility] Hyperlipidemia Active [id number] TH[facility] CHAMBERS [facility] [place] [facility] Hypogonadism Active [id number] THOM CHAMBERS DEEJAY [facility] [place] [facility] Sleep apnea Active [id number] THOM CHAMBERS JORDYN [facility] [place] [facility] Radiology Reports: +/- 30 days of the encounter No Data Provided for This Section Pathology Reports: +/- 30 days of the encounter No Data Provided for This Section Encounter Notes: All associated encounter notes This section contains the clinical notes associated to the Encounter. Date/Time Encounter Note(s) Provider Source Jun 01, 2019 02:04 PM NURSING OUTPATIENT NOTE: LOCAL TITLE: -NURSING CLINIC CHECK-IN STANDARD TITLE: NURSING OUTPATIENT NOTE DATE OF NOTE: JUN 01, 2019@14:04 ENTRY DATE: JUN 01, 2019@14:04:09 AUTHOR: DARIO DUNCAN EXP COSIGNER: URGENCY: STATUS: COMPLETED PRIMARY REASON FOR VISIT TODAY: Testosterone inj Monthly PATIENT'S GOAL/MISSION FOR THEIR HEALTH: be healthy ALLERGIES/ADR: METFORMIN, LISINOPRIL VITALS: DATE/TIME TEMP PULSE RESP BP PAIN WEIGHT PUL OX 06/01/19 @ 1403 97.2 76 20 126/74 0 176 94 REPRODUCTIVE HISTORY: Concerns regardng sexual/reproductive health: None MEDICATION RECONCILIATION: Copy of current medication list on file provided for patient. Instructed to compare with all medications they are currently taking, and to review /discuss discrepancies with provider. LEARNING ASSESSMENT: Patient's preferred language for discussing health care is: Pakistani Today's learning assessment regarding patient's readiness to learn. Patient reads well. Barriers to Learning: Has no barriers to learning. Preferred Method of Learning: Reading Listening Seeing / Videos Demonstration Return Demonstration Hands On/Doing Education provided as per documentation below: SCREENING FOR PAIN STATUS: Patient reported pain level as 0 (06/01/2019 14:03) on 0 to 10 scale. * Today's [...] Declined Weight Management (MOVE) Program. N:Pneumococcal PCV13 ([id number]): The patient declines to receive the recommended dose of pneumococcal conjugate vaccine PCV13 (Prevnar 13). Comment: not interested N:Relationship Health and Safety: Ask the the following questions: In the past 12 [...] IPV Coordinator and National Domestic Violence Hotline 6-392-719-ERGG (2994) or [email or web address]. N:Zoster Immunization: The patient declines to receive the herpes zoster vaccine. Comment: not interested OTHER OBSERVATION/INTERVENTION: Pt in clinic today for: Testosterone injection Pt purchased injection medication from [facility]. Patient identity verified using 2 forms of ID: Name and Medication given: Testosterone 200 mg (1 ml) Order Verified:11/21/18 Route: IM Location: LEFT GM Mfg: [employer] Lot#: [id number] Exp: 02/2021 Dx: hypogonadism Initiated: [facility]ceived locally until [facility]07-[facility] Pt rock injection w/o difficulty. RTC [place] injection clinic in 1 month: JUNE 30 /noa/ DARIO DUNCAN LPN Signed: 06/01/2019 14:11 DARIO DUNCAN [facility]
--- OUTSIDE RECORDS SUMMARY | 2020-04-18 10:19 | XMS REPORT | Encounter Summary ---
Author [facility] Address [address] [place] [id number] Phone Unavailable Care Team Providers Care Childcare Aide Name Role Phone REYES THOM PCP Unavailable [...] to Policy Woodard [facility] ([facility]) MEDICARE ADVANTAGE [facility] ([facility]) Nov 09, 2017 [id number] [phone] SIMI COVARRUBIAS PATIENT [facility] ([facility]) MEDICARE ADVANTAGE MCR ([facility]) Nov 09, 2017 [id number] [phone] SIMI COVARRUBIAS PATIENT AETNA [facility] ([facility]) MEDICARE ADVANTAGE MCR ([facility]) Nov 09, [phone] [id number] SIMI COVARRUBIAS PATIENT Selected Encounter This section includes the information on record at [place] for the Encounter. Date/Time Encounter Type Encounter Description Reason Provider Source Jun 09, 2019 03:30 PM Outpatient Encounter TELEPHONE PRIMARY CAR E ICD-10-CM E11.9 Type 2 diabetes mellitus without complications with Provider Comments: Diabetes mellitus (SCT [id number]) LYNDATRELEUTERIO ROJAS [facility] IHE Encounter Template Text not used by [facility] Assessments - Encounter Diagnoses This section includes the primary and secondary diag noses documented for the Encounter. Date/Time Primary/Secondary Diagnosis Diagnosis Name Provider Source Jun 09, 2019 03:30 PM PRIMARY Type 2 diabetes mellitus w [...] 30, 2019 10:00 AM [facility] Jul 07, 2019 11:45 AM AMBULATORY - MEDICINE [facility] Jul 14, 2019 11:00 AM AMBULATORY - NONE [facility] Jul 28, 2019 10:00 AM AMBULATORY - NONE [facility] Aug 04, 2019 11:00 AM AMBULATORY - NONE [facility] Aug 16, 2019 01:00 PM AMBULATORY - NONE [facility] Aug 25, 2019 10:00 AM AMBULATORY - NONE [facility] Sep 15, 2019 12:00 PM AMBULATORY - MEDICINE [facility] Sep 22, 2019 10:00 AM AMBULATORY - NONE [facility] Sep 23, 2019 11:00 AM AMBULATORY - NONE [facility] Oct 17, 2019 03:00 PM AMBULATORY - NONE [facility] Oct 20, 2019 10:00 AM [facility]ONE [facility] Nov 10, 2019 12:00 PM AMBULATORY - MEDICINE [facility] Nov 16, 2019 02:00 PM AMBULATORY - SURGERY [facility] Nov 16, 2019 03:00 PM AMBULATORY - NONE [facility] Nov 17, 2019 10:00 AM AMBULATORY - NONE [facility] Dec 01, 2019 11:30 AM AMBULATORY - MEDICINE [facility] IN Surgical Procedures: All associated to [...] Range Comment Jul 07, 2019 09:11 AM [facility] PTH INTACT Specimen Type: PLASMA No comment entered. PTH INTACT 45.8 pg/mL 8.7-77.7 Jul 07, 2019 09:11 AM [facility] CBC & DIFF Specimen Type: BLOOD [...] 0.8 % Jul 07, 2019 09:11 AM [facility] URINALYSIS Specimen Type: URINE No comment [...] Trace /HPF Jul 07, 2019 09:11 AM [facility] MAGNESIUM (mg/dL) Specimen Type: PLASMA No comment entered. MAGNESIUM (mg/dL) 1.8 mg/dl 1.6-2.6 Jul 07, 2019 09:11 AM [facility] URIC ACID (mg/dL) Specimen Type: PLASMA No comment entered. URIC ACID (mg/dL) 6.7 mg/dL 3.5-7.2 Jul 07, 2019 09:11 AM [facility] VITAMIN D (25-OH) Specimen Type: SERUM No comment entered. VITAMIN D (25-OH) 42.9 ng/mL 30.0-96.0 Jul 07, 2019 09:11 AM [facility] MICROALBUMIN (CO,EK) Specimen Type: URINE No comment entered. *MICROALBUMIN(CONC) 46.6 mg/dL - *MICROALBUMIN(SPOT) 158 mcg/mg cr 0-29 *CREATININE mg/dL 295.0 mg/dl Not Avail. Jul 07, 2019 09:11 AM [facility] HEPATIC FUNCTION PANE L Specimen Type: PLASMA No comment entered. PROTEIN,TOTAL 6.1 g/dL 6.0-8.6 ALBUMIN 3.9 g/dl 3.4-5.0 TOTAL BILIRUBIN 0.4 mg/dL 0.2-1.2 DIRECT BILIRUBIN 0.2 mg/dL 0-0.5 ASPARTATE TRANSAMINASE 29 U/L 5-34 ALANINE AMINOTRANSFERASE 24 U/L 8-40 ALKALINE PHOSPHATASE 91 U/L 40-150 Jul 07, 2019 09:11 AM [facility] RENAL FUNCTION PANEL Specimen Type: PLASMA No comment entered. *CREATININE 1.22 mg/dL 0.7-1.3 UREA NITROGEN mg/dL 13 mg/dL 9-25 GLUCOSE 152 mg/dL H 72-99 SODIUM 140 mEq/L 136-145 POTASSIUM 3.3 mEq/L L 3.5-5.0 CALCIUM (mg/dL) 9.7 mg/dL 8.4-10.4 PHOSPHORUS INORGANIC 3.5 mg/dL 2.3-4.7 ALBUMIN 3.9 g/dl 3.4-5.0 CHLORIDE 99 mEq/L 98-107 CO2 31 mEq/L 22-31 EGFR 58.2 Jul 07, 2019 09:11 AM [facility] COMPREHENSIVE SD TABOLIC PANEL Specimen Type: PLASMA No comment [...] Adverse Reactions (ADR s) on record with [place] for the patient. The data comes from a [facility] treatment facilities. It does not list Allergies/ADRs that were removed or entered in error. Some allergies/ADRs may be reported in t Immunization section. Allergen Event Date Event Type Reaction(s) Severity Source LISINOPRIL Dec 01, 2017 Propensity to adverse reactions to drug (disorder) Renal impairment [facility] METFORMIN Dec 01, 2017 Propensity to adverse reactions to drug (disorder) Renal impairment [facility] Medications: [facility] dispensed (-15 months) and Non-VA Documented (Obtained Outside A) Section Date Range: 1) prescriptions processed by a [place] pharmacy in the last 15 m ont, [...] TIMES A DAY 400 Sep 12, 2020 [id number] Feb 29, 2020 ELEUTERIO LIVINGSTON [facility] ACCU-CHEK ROSINA PLUS (GLUCOSE) TEST STRIP Discontinued USE 1 STRIP FOR TESTING FOUR TIMES A DAY 400 Sep 15, 2019 [id number] Jun 13, 2019 BALTRUSAIT ISELEUTERIO [facility] ALCOHOL PREP PAD Discontinued USE 1 PAD ON SKIN FOUR TIMES A DAY 40 0 Apr 25, 2020 [id number] Nov 29, 2019 BALELEUTERIO KONG [facility] [place] [facility] ALCOHOL PREP PAD Discontinued USE 1 PAD ON SKIN FOUR TIMES A DAY 40 0 Sep 15, 2019 [id number] Apr 18, 2019 ELEUTERIO LIVINGSTON [facility] ALLOPURINOL 100MG TAB Active TAKE ONE TABLET BY MOUTH ONCE A DAY FOR GOUT. TAKE WITH PLENTY OF WATER 90 Sep 23, 2020 [id number] Mar 05, 2020 SILVINA CHAMBERS [facility] [place] [facility] ALLOPURINOL 100MG TAB Discontinued TAKE ONE TABLET BY MOUTH ONCE A DAY FOR GOUT. TAKE WITH PLENTY OF WATER 90 Dec 30, 2019 [id number] Sep 17, 2019 [facility] [place] ALOGLIPTIN 12.5MG TAB Active TAKE ONE TABLET BY MOUTH O NCE A DAY FOR DIABETES 90 Sep 12, 2020 [id number] Mar 04, 2020 BALTRUSADANN,ELEUTERIO Larry [facility] [place] [facility] ALOGLIPTIN 12.5MG TAB Discontinued TAKE ONE TABLET BY MOUTH ONCE A DAY FOR DIABETES 90 Dec 22, 2019 [id number] Jun 18, 2019 BALTRUSAITIS,ELEUTERIO Larry [facility] AMLODIPINE BESYLATE 10MG TAB Discontinued TAKE ONE TA BLET BY MOUTH EVERY MORNING FOR HEART/BLOOD PRESSURE 90 Jun 10, 2019 [id number] Feb 25, 2019 TIPMELODY HAWKINSBY Laron [facility] AMLODIPINE BESYLATE 10MG TAB TAKE ONE TA BLET BY MOUTH EVERY MORNING FOR HEART/BLOOD PRESSURE 90 Apr 12, 2020 [id number] Feb 10, 2020 SILVINA CHAMBERS [facility] ASPIRIN 81MG TAB,CHEWABLE Non-VA CHEW ONE TABLET BY MOUTH ONCE A DAY Non-VA Documented by: MEGAN HAWK nted at: [facility] ATORVASTATIN CA 20MG TAB Active TAKE ONE TABLET BY MOUTH ONCE A DAY FOR CHOLESTEROL. REPORT ANY UNEXPLAINED MUSCLE PAIN OR WEAKNESS TO YOUR DOCTOR. 90 Jan 02, 2021 [id number] March 24, 2020 [facility] ATORVASTATIN CA 40MG TAB Discontinued TAKE ONE-HALF T ABLET BY MOUTH AT BEDTIME FOR CHOLESTEROL. REPORT ANY UNEXPLAINED MUSCLE PAIN OR WEAKNESS TO YOUR DOCTOR. 45 Jul 15, 2020 [id number] Oct 14, 2019 [facility] ATORVASTATIN CA 40MG TAB Discontinued TAKE ONE-HALF T ABLET BY MOUTH AT BEDTIME FOR CHOLESTEROL. REPORT ANY UNEXPLAINED MUSCLE PAIN OR WEAKNESS TO YOUR DOCTOR. 45 Oct 12, 2019 [id number] Jul 16, 2019 [facility] [place] [facility] CALCIUM CARBONATE 500MG TAB,CHEWABLE Non-VA CHEW ONE TABLET BY MOUTH PRN Non-VA Documented by: THOM CHAMBERS nted at: [facility] CHLORTHALIDONE 25MG TAB Active TAKE ONE TABLET BY MOUTH ONCE A DAY 90 Jul 01, 2020 [id number] March 19, 2020 JAQUELINMONIKA Larry [facility] CHLORTHALIDONE 25MG TAB Discontinued TAKE ONE TABLET BY MOUTH ONCE A DAY 90 Jun 16, 2019 [id number] Apr 12, 2019 MELODY HAMMERBY Laron [facility] CHOLECALCIFEROL 1000UNT TAB Non-VA TAKE ONE TABLET BY MOUTH EVERY OTHER DAY Non-VA Docume nted by: MEGAN HAWK Docume nted at: [facility] CYANOCOBALAMIN 1000MCG/ML INJ Active INJECT 100 0 MCG (1 ML) INTRAMUSCULARLY EVERY MONTH FOR B12 SUPPLEMENTATION. 3 Nov 03, 2020 [id number] Apr 23, 2020 [facility] [place] CYANOCOBALAMIN 1000MCG/ML INJ Discontinued INJECT 100 0 MCG (1 ML) INTRAMUSCULARLY EVERY MONTH FOR B12 SUPPLEMENTATION. 3 Nov 17 0 [id number] Aug 07, 2019 THOM CHAMBERS [facility] DIPHENHYDRAMINE HCL 25MG CAP Non-VA TAKE 1 CAPSULE BY MOUTH PRN Non-VA Documented by: THOM CHAMBERS Docume nted at: [facility] DOCUSATE NA 100MG CAP No n-VA TAKE 2 CAPSULES BY MOUTH ONCE A DAY Non-VA Documented by: THOM CHAMBERS Docume nted at: [facility] FISH OIL 1000MG (500MG DHA/EPA) CAP,ORAL Non-VA TAKE 1 CAPSULE BY MOUTH ONCE A DAY Non-VA Documented by: MEGAN HAWK Docume nted at: [facility] GABAPENTIN 100MG CAP Active TAKE 1 CAPSULE BY M OUTH EVERY MORNING AND TAKE 1 CAPSULE BY MOUTH AT NOON AND TAKE 2 CAPSULES BY MOUTH AT BEDTIME 360 Jul 06, 2020 [id number] March 31, 2020 BALTRUSAITISELEUTERIO [facility] [place] [facility] GLUCAGON 1MG/GABRIELLA INJ,EMERGENCY KIT INJEC T 1MG SUBCUTANEOUSLY NEEDED FOR SEVERE HYPOGLYCEMIA 1 Nov 30, 2019 [id number] Nov 03, 2019 THOM CHAMBERS [facility] INSULIN,ASPART,HUMAN 100U/ML,NOVOLOG,FLEXPEN,3ML Active: On Hold INJECT 20 UNITS SUBCUTANEOUSLY BEFORE BREAKFAST AND INJECT 20 UNITS BEFORE LUNCH AND INJECT 26 UNITS BEFORE SUPPER AND INJECT 24 UNITS SNACK FOR BLOOD SUGAR CONTROL. ADMINISTER 10 MINUTES BEFORE FOOD DIRECTED. REFRIGERATE UN-OPENED PENS. DISCARD CARTRIDGE 28 DAYS AFTER OPENING. PLUS CORRECTION Mar 01, 2021 [id number] ELEUTERIO LIVINGSTON [facility] INSULIN,ASPART,HUMAN 100U/ML,NOVOLOG,FLEXPEN,3ML Discontinue d INJECT 20 UNITS SUBCUTANEOUSLY BEFORE BREAKFAST AND INJECT 20 UNITS BEFORE LUNCH AND INJECT 24 UNITS BEFORE SUPPER AND INJECT 24 UNITS SNACK FOR BLOOD SUGAR CONTROL. ADMINISTER 10 MINUTES BEFORE FOOD DIRECTED. REFRIGERATE UN-OPENED PENS. DISCARD CARTRIDGE 28 DAYS AFTER OPENING. PLUS CORRECTION 30 Jan 26, 2021 [id number] Jan 28, 2020 [facility] [place] [facility] INSULIN,ASPART,HUMAN 100U/ML,NOVOLOG,FLEXPEN,3ML Discontinue d INJECT 20 UNITS SUBCUTANEOUSLY BEFORE MEALS FOR BLOOD SUGAR CONTROL. ADMINISTER 10 MINUTES BEFORE FOOD DIRECTED. REFRIGERATE UN-OPENED PENS. DISCARD CARTRIDGE 28 DAYS AFTER OPENING. PLUS CORRECTION FOR BLOOD SUGAR CONTROL. ADMINISTER 10 MINUTES BEFORE FOOD DIRECTED. REFRIGERATE UN-OPENED PENS. DISCARD CARTRIDGE 28 DAYS AFTER OPENING. PLUS CORRECTION 30 Nov 16, 2020 [id number] Nov 16 [facility] [place] [facility] INSULIN,ASPART,HUMAN 100U/ML,NOVOLOG,FLEXPEN,3ML Discontinue d INJECT 15 UNITS SUBCUTANEOUSLY EVERY MORNING BEFORE MEAL AND INJECT 15 UNITS WITH LUNCH AND INJECT 15 UNITS WITH SUPPER AND INJECT 20 UNITS WITH SNACK FOR BLOOD SUGAR CONTROL. ADMINISTER 10 MINUTES BEFORE FOOD DIRECTED. REFRIGERATE UN-OPENED PENS. DISCARD CARTRIDGE 28 DAYS AFTER OPENING. Dec 22, 2019 5 [id number] Oct 12, 2019 [facility] [place] [facility] INSULIN,GLARGINE,HUMAN 100 UNIT/ML INJ,SOLOSTAR,3ML Active INJECT 50 UNITS SUBCUTANEOUSLY EVERY MORNING FOR BLOOD SUGAR CONTROL. ADMINISTER AT SAME TIME EACH DAY DIRECTED. DISCARD ANY OPEN CARTRIDGE AFTER 28 DAYS. Sep 23, 2020 [id number] Jan 28, 2020 [facility] [place] INSULIN,GLARGINE,HUMAN 100 UNIT/ML INJ,SOLOSTAR,3ML Disconti nued INJECT 45 UNITS SUBCUTANEOUSLY EVERY MORNING FOR BLOOD SUGAR CONTROL. ADMINISTER AT SAME TIME EACH DAY DIRECTED. DISCARD ANY OPEN CARTRIDGE AFTER 28 DAYS. 15 Oct 23, 2019 [id number] Aug 30, 2019 YAYADANNELEUTERIO Larry [facility] LACTOBACILLUS ACIDOPHILUS TAB,CHEWABLE Non-VA CHEW ONE TABLET BY MOUTH ONCE A DAY Non-VA Documented by: MEGAN HAWK nted at: [facility] LANCET,SOFTCLIX Active USE LANCET 5 TIME S A DAY FOR TESTING BLOOD GLUCOSE DIRECTED 500 Dec 28, 2020 [id number] March 19, 2020 ELEUTERIO LIVINGSTON Laron [facility] LANCET,SOFTCLIX Discontinued USE LANCET 5 TIME S A DAY FOR TESTING BLOOD GLUCOSE DIRECTED 500 Jan 11, 2020 [id number] Sep 29, 2019 YAYA QUIGLEYELEUTERIO Larry [facility] [place] MAGNESIUM OXIDE 400MG TAB Non-VA TAKE ONE TABLET BY MOUTH ONCE A DAY Non-VA Documented by: MEGAN HAWK nted at: [facility] METOPROLOL SUCCINATE 200MG TAB,SA TAKE O NE-HALF TABLET BY MOUTH EVERY EVENING FOR HEART/BLOOD PRESSURE. SWALLOW WHOLE, DO NOT CRUSH OR CHEW (TABLETS MAY BE CUT IN HALF). 45 March 18, 2020 [id number] Dec 28, 2019 STANISLAV HAMMER [facility] NEEDLE 22G 1.5IN USE NEEDLE FOR EVERY MONTH 1 Nov 12, 2019 [id number] Feb 07, 2019 ADELAIDA CLIFFORD [facility] NEEDLE,PEN 31G,5MM Discontinued USE NEEDLE SUBCUTANE OUSLY 5 TIMES A DAY - THIS IS A SINGLE USE NEEDLE AND SHOULD BE DISCARDED AFTER USE 500 Dec 21, 2019 [id number] Sep 28, 2019 YAYAELEUTERIO QUIGLEY [facility] POTASSIUM CHLORIDE 10MEQ TAB,SA Active TAKE TWO TABLETS BY MOUTH TWO TIMES A DAY FOR POTASSIUM SUPPLEMENTATIONTAKE WITH FOOD 360 Dec 12, 2020 [id number] Mar 02, 2020 YANELY CONDE [facility] POTASSIUM CHLORIDE 10MEQ TAB,SA Discontinued TAKE ONE TABLET BY MOUTH THREE TIMES A DAY WITH MEALS FOR POTASSIUM SUPPLEMENTATIONTAKE WITH FOOD 180 March 16, 2020 [id number] Nov 29, 2019 BALTRUSAITIS,ELEUTERIO L [facility] [place] [facility] POTASSIUM CHLORIDE 10MEQ TAB,SA Discontinued TAKE ONE TABLET BY MOUTH THREE TIMES A DAY WITH MEALS FOR POTASSIUM SUPPLEMENTATIONTAKE WITH FOOD 180 May 26, 2019 [id number] Jan 24, 2019 YANELY CONDE [facility] [place] [facility] SYRINGE 2.5-3ML/NDL 25G 1IN Active USE 1 SYRINGE EVERY MONTH 3 Feb 21, 2021 [id number] March 20, 2020 [facility] SYRINGE 2.5-3ML/NDL 25G 1IN Discontinued USE 1 SYRINGE EVERY Thu 3 March 18, 2020 [id number] Dec 21, 2019 [facility] TESTOSTERONE CYPIONATE 200MG/ML INJ,1ML (IN OIL) Active INJECT 200 MG (1 ML) INTRAMUSCULARLY EVERY MONTH FOR HORMONE REPLACEMENT 1 May 18, 2020 [id number] April 06, 2020 ADELAIDA CLIFFORD [facility] [place] [facility] TESTOSTERONE CYPIONATE 200MG/ML INJ,1ML (IN OIL) Discontinue d INJECT 200 MG (1 ML) INTRAMUSCULARLY EVERY MONTH FOR HORMONE REPLACEMENT 1 March 25, 2020 [id number] Oct 25, 2019 ADELAIDA CLIFFORD [facility] TESTOSTERONE CYPIONATE 200MG/ML INJ,1ML (IN OIL) Discontinue d INJECT 200 MG (1 ML) INTRAMUSCULARLY EVERY MONTH FOR HORMONE REPLACEMENT 1 Nov 06, 2019 [id number] Sep 25, 2019 ADELAIDA CLIFFORD [facility] TESTOSTERONE CYPIONATE 200MG/ML INJ,1ML (IN OIL) Discontinue d INJECT 200 MG (1 ML) INTRAMUSCULARLY EVERY MONTH FOR HORMONE REPLACEMENT 1 May 14, 2019 [id number] Apr 10, 2019 ADELAIDA CLIFFORD [facility] TRAMADOL HCL 50MG TAB Active TAKE 1 TO 2 TABLET S BY MOUTH EVERY 6 HOURS NEEDED FOR PAIN 180 Jul 21, 2020 [id number] March 30, 2020 [facility] TRAMADOL HCL 50MG TAB Discontinued TAKE 1 TO 2 TABLET S BY MOUTH EVERY 6 HOURS NEEDED FOR PAIN 180 Jun 06, 2020 [id number] Jan 11, 2020 [facility] TRAMADOL HCL 50MG TAB Discontinued TAKE 1 TO 2 TABLET S BY MOUTH EVERY 6 HOURS NEEDED FOR PAIN 180 Jun 06, 2020 [id number] Dec 06, 2019 [facility] 15 TRAMADOL HCL 50MG TAB Discontinued TAKE 1 TO 2 TABLET S BY MOUTH EVERY 6 HOURS NEEDED FOR PAIN 180 Dec 14, 2019 [id number] Nov 15, 2019 [facility] [place] [facility] TRAMADOL HCL 50MG TAB Discontinued TAKE 1 TO 2 TABLET S BY MOUTH EVERY 6 HOURS NEEDED FOR PAIN 180 Jul 06, 2019 [id number] May 26, 2019 NELLA GROVE [facility] [place] [facility] TRIAMCINOLONE ACETONIDE 0.5% CREAM,TOP Active A PPLY SPARINGLY TO AFFECTED AREA ONCE A DAY NEEDED FOR RASH 45 Jul 15, 2020 [id number] April 01 0 THOM CHAMBERS [facility] [place] [facility] TRIAMCINOLONE ACETONIDE 0.5% CREAM,TOP Discontinued A PPLY SPARINGLY TO AFFECTED AREA ONCE A DAY NEEDED FOR RASH 45 Oct 12, 2019 [id number] Jul THOM CHAMBERS [facility] Problems (Conditions): All historical and current Section Date Range: From patient's date of to the date document was create d. This section includes a list of Problems (Conditions) know n to [place] for the patient. It includes both active and inacti ve problems (conditions). The data comes from all [place] treatment facilities. Problem Status Problem Code Date of Onset Date of Resolution Comm ent(s) Provider Source Basal cell carcinoma of scalp Active [id number] THOM CHAMBERS [facility] Chronic back pain Active [id number] TERRIE CHAMBERS [facility] [place] [facility] Chronic kidney disease stage 3 Active [id number] REYES,DANA [facility] [place] [facility] Constipation Active [id number] THOM CHAMBERS [facility] [place] [facility] Diabetes mellitus Active [id number] THOM CHAMBERS [facility] [place] Diabetic neuropathy Active [id number] Neha CHAMBERS [facility] [place] [facility] Essential hypertension Active [id number] THOM CHAMBERS [facility] [place] [facility] Hyperlipidemia Active 29374448 THOM CHAMBERS [facility] [place] [facility] Hypogonadism Active 94180486 THOM CHAMBERS [facility] [place] [facility] Sleep apnea Active [id number] THOM CHAMBERS RN [facility] [place] [facility] Radiology Reports: +/- 30 days of the encounter No Data Provided for This Section Pathology Reports: +/- 30 days of the encounter No Data Provided for This Section Encounter Notes: All associated encounter notes This section contains the clinical notes associated to the Encounter. Date/Time Encounter Note(s) Provider Source Jun 09, 2019 03:23 PM PHARMACY NOTE: LOCAL TITLE: EK-PHARMACY PRIMARY CARE STANDARD TITLE: PHARMACY NOTE DATE OF NOTE: JUN 09, 2019@15:23 ENTRY DATE: JUN 09, 2019@15:23:47 AUTHOR: REGGIE LIVINGSTON COSIGNER: URGENCY: STATUS: COMPLETED EK-PHARMACY PRIMARY CARE Has ADDENDA SIMI COVARRUBIAS is a 72 yo MALE contacted via telephone for CDM clinic for DM f/u. Team: TOJAYE WELLER 1 *WH*; PCP: THOM CAHMBERS S: reports doing well, in NAD. Correctly confirms DM regimen w/ good adherence. Reports he has had a little bit of stress lately which seems to have affected his blood sugars and they are running about the same that they were last appt. HPI: At previous appointment Veterans BG had worsened again due to eating more fruit again. [place] agreed to try different low CHO options inplace of fruit. [place] notes also being managed by Dr. Grove, non-VA provider, recently approved thru [facility]. instructed to avoid co-management, thus plans to continue DM services with this service writer and other conditions will be deferred to Dr. Grove. DR. CONDE PHONE [phone]. Lifestyle: Physical Activity: walking ~10 miles/day (at 6-8 AM) & plays w/ grandchildren Diet: 24h Recall [...] DIABETES Current Regimen: -insulin glargine 45 units QAM -insulin aspart 15 units TID AC meals + 20 units w/ snack -alogliptin 12.5mg ASA: yes [place]/ARB: no (CKD) Statin: moderate intensity Previously tried meds: metformin - patient case coordinator recommends against d/t hx of BRIGIDO with SCr 1.7 liraglutide - N/V Diabetes Complications: Retinopathy: last eye exam 05/04/19; (-) Gastropathy: denies bloating after meals, early satiety, GI complaints Nephropathy: microalbuminuria (+) 10/29/2017; Peripheral neuropathy: denies numbness, burning, tingling in hands/feet Foot Exam: 10/23/2017 (-)Abnormal BG Readings: Self-reports BG FBG 90-120's w/ occ 200's AC lunch ~100-130's AC supper ~150's HS >300's Hypoglycemia Episodes: denies Blood pressure: 129-140/60-70's most are ~130/60 PMH: Computerized Problem List is the source for the followin. Diabetes mellitus 2. Diabetic neuropathy 3. Essential hypertension 4. Hyperlipidemia 5. Sleep apnea 6. Constipation 7. Chronic back pain 8. Hypogonadism 9. Basal cell carcinoma of scalp O: Weight: 179 lb [81.4 kg] (03/10/2019 10:55) BMI: 30.3 Blood pressure: 128/60 (03/10/2019 10:55) Pulse: 60 (03/10/2019 10:55) Labs: Hgb A1c: Collection DT Spec A1C 03/24/2019 11:08 BLOOD 8.1 H 12/09/2018 11:43 BLOOD 8.9 H 09/23/2018 08:55 BLOOD 8.7 H Lipids: CHOL: 176 (09/23/18 08:55) 151 (03/24/19 11:08) HDL: 50 (09/23/18 08:55) 44 (03/24/19 11:08) LDL-TYLER: 102.8 (09/23/18 08:55) 85.2 (03/24/19 11:08) TGL: 116 (09/23/18 08:55) 109 (03/24/19 11:08) Metabolic Panel: Na: 142 mEq/L (03/24/2019 11:08) K: 3.6 mEq/L (03/24/2019 11:08) Cl: 102 mEq/L (03/24/2019 11:08) C02: 31 mEq/L (03/24/2019 11:08) Gluc: 122 mg/dL H (03/24/2019 11:08) BUN: 17 mg/dL (03/24/2019 11:08) Creat: 1.27 mg/dL (03/24/2019 11:08) EGFR: 55.6 (03/24/2019 11:08) Liver Function Test: ALB: 4.2 (03/24/19 11:08) ALKPHOS: 104 (03/24/19 11:08) ALT: 20 (03/24/19 11:08) AST: 22 (03/24/19 11:08) DBIL: 0.20 (02/03/19 11:18) TBIL: 0.60 (03/24/19 11:08) TP: 6.6 (03/24/19 11:08) Microalbumin: Microalbumin (CONC): 38.3 mg/dL (03/24/2019 11:08) Microalbumin/Creatinine Ratio: 208.6 mcg/mg cr H* (03/24/2019 11:08) TSH: 2.79 uIU/mL (09/23/2018 08:55) 25-OH Vit D: 29.5 ng/mL L (11/11/2017 11:52) QUEST: ____ A/P: 1. Diabetes Goal A1c <7.5% met: No Goal FBG 90-140mg/dL met: Yes (mostly) Goal HS <160mg/dL met: No Metformin: NO -CKD (renal doctor will not allow) [place] self-reports BG have not changed from previous likely due to combination of stress and/or lack of diet changes. Discussed potentially starting empagliflozin. educated on potential risks and benefits. [place] would like this to be cleared by Non-[facility] PCP and patient case coordinator prior to starting. Based on this information will, --Continue insulin glargine 45 units --Continue insulin aspart 15 units TID AC meals --continue insulin aspart 20 units w/ snack --Continue aloglipitin 12.5mg daily --Called Dr. Grove's and Dr. Conde office to get approval to start empagliflozin, Dr. Conde was on vacation and RN reported a call back will be received when she is back 2. HTN Goal <150/90 met: yes -managed by non-VA 3. Refills: none 4. WILL CALL ONCE APPROVAL/GIBSON Larry FOR EMPAGLIFLOZIN RECEIVED Learner: Patient Readiness to Learn: Accepting Barriers to Learning Noted: No Barriers Preferred Learning Style: Lecture, Printed Material Preferred language for discussing health care: [place] Time spent with pt: 15min PBM PharmD Pharmacotherapy Rem V10: PHARMACIST INTERVENTIONS: TYPE 2 DIABETES MELLITUS Medication Intervention(s) Initiate new medication Nonpharmacologic intervention chris /noa/ ELEUTERIO LIVINGSTON Clinical Php Wordpress Developer Signed: 06/09/2019 16:18 06/13/2019 ADDENDUM STATUS: COMPLETED Received call back from Jia at Dr. Conde office (Non Emergency Services Ambulance Driver). Jia reported that Dr. Conde is not a fan of SGLT2 use in patient's with hx of renal disease and concerned about gangrene and reported that [place] would need to be explained these risks if the medication is used. Offered to share the [facility] article on using canagliflozin in renal dx, Jia reported that Dr. Conde would likely not change her mind on this and it would not be worth my time. I explained the risks of life threatening infections w/ [place]im[place] and Dr. Conde's concern about use in patient's with renal disease. Also explained that [facility] has recently published article on the [facility] trial evaluating use of canagliflozin that showed improved outcomes in Type 2 DM w/ CKD. asked for a copy of this recent study be mailed to him and he will discuss this with Dr. Conde at their next appt in a few weeks. agreed to work on his is diet again and will go back to eating Outshine low carb/sugar ice cream bars in place of fruit as this helped his BG. /noa/ ELEUTERIO LIVINGSTON Clinical Php Wordpress Developer Signed: 06/13/2019 08:57 ELEUTERIO LIVINGSTON [facility]
--- OUTSIDE RECORDS SUMMARY | 2020-04-18 10:20 | XMS REPORT | Encounter Summary ---
Author Author Department [facility] SIMI palacio Organization Department of [facility] Address [address] [place] [phone] Phone Unavailable Care Team Providers Care Data Sme Name Role Phone THOM CHAMBERS PCP Unavailable [...] MED REP (R) MEDICARE ADVANTAGE MCR ([facility]) Nov 09, 2017 [id number] [phone] SIMI COVARRUBIAS PATIENT ADVANTRA FREEDOM MED REP (WNR) MEDICARE ADVANTAGE MCR ([facility]) Nov 09, 2017 [id number] [phone] SIMI COVARRUBIAS PATIENT AETNA MCR (WN) MEDICARE ADVANTAGE MCR ([facility]) Nov 09, 2019 [id number] SIMI COVARRUBIAS PATIENT Selected Encounter This section includes the information on record at [place] for the Encounter. Date/Time Encounter Type Encounter Description Reason Provider Source May 04, 2019 09:00 AM Outpatient Encounter PRIMARY CARE/MEDICINE ICD-10-CM E29.1 Testicular hypofunction with Provider Comments: Testicular Hypofunction THOM CHAMBERS [facility] IHE Encounter Template Text not used by [place] Assessments - Encounter Diagnoses This section includes the primary and secondary diag noses documented for the Encounter. Date/Time Primary/Secondary Diagnosis Diagnosis Name Provider Source May 04, 2019 08:56 AM PRIMARY Testicular hypofunction Milla RODRIGUEZ [facility] Plan of Treatment: Future Appointments (+ 6 [...] Appointment Type Appointment Facili ty Name Jun 01, 2019 02:00 PM AMBULATORY - NONE [facility] Jun 09, 2019 03:30 PM AMBULATORY - NONE [facility] [place] [facility] Jun 30, 2019 10:00 AM AMBULATORY - NONE [facility] Jul 07, 2019 11:45 AM AMBULATORY - MEDICINE [facility] [place] Jul 14, 2019 11:00 AM AMBULATORY - NONE [facility] [place] [facility] Jul 28, 2019 10:00 AM AMBULATORY - NONE [facility] Aug 04, 2019 11:00 AM AMBULATORY - NONE [facility] [place] [facility] Aug 16, 2019 01:00 PM AMBULATORY - NONE [facility] [place] [facility] Aug 25, 2019 10:00 AM AMBULATORY - NONE [facility] Sep 15, 2019 12:00 PM AMBULATORY - MEDICINE [facility] [place] Sep 22, 2019 10:00 AM AMBULATORY - NONE [facility] Sep 23, 2019 11:00 AM AMBULATORY - NONE [facility] [place] [facility] Oct 17, 2019 03:00 PM AMBULATORY - NONE [facility] Oct 20, 2019 10:00 AM AMBULATORY - NONE [facility] Surgical Procedures: All associated to [...] in Height Weight Body Mass Index Source May 04, 2019 08:53 AM 0 [facility] May 04, 2019 08:52 AM 98 F 80 /min 128/70 mm[Hg] 20 /min 94 % 0 176 lb 30 [facility] Immunizations: All administered on the encounter date No Data Provided for This Section Social History: Smoking Status (Most current) and Tobacco Use (All prior to enco unter date) This section includes the most current, and the historical, smoking and tobacco- related health factors from the [place] facility where the Encounter took place. Current Smoking Status This section includes the most current smoking, or tobacco -related health factor, from the [place] facility where the Encounter took place. Date/Time Current Smoking Status Comment Facility Nov 03, 2018 07:59 AM VA-TOBACCO QUIT 15 YRS OR MORE [facility] Tobacco Use History This section includes a history of the smoking, or tobacco -related health factors, that were collected on or before the date of the Encoun ter. The data comes from the [place] facility where the Encounter took place. Date/Time Smoking Status/Tobacco Use Comment [facility] it Nov 03, 2018 07:59 AM VA-TOBACCO QUIT 15 YRS OR MORE [facility] Oct 23, 2017 07:35 AM TOBACCO LIFETIME NON-USER [facility] Advance Directives: All historical and current No [...] adverse reactions to drug (disorder) Renal impairment [facility] 15 METFORMIN Dec 01, 2017 Propensity to adverse reactions to drug (disorder) Renal impairment [facility] 15 Medications: VA dispensed (-15 months) and Non-VA Documented (Obtained Outside A) Section Date Range: 1) prescriptions processed by a VA pharmacy in the last 15 m [facility], and 2) all medications recorded in [...] TIMES A DAY 400 Sep 12, 2020 [id number] Feb 29, 2020 REGGIE LIVINGSTON [facility] ACCU-CHEK ROSINA PLUS (GLUCOSE) TEST STRIP Discontinued USE 1 STRIP FOR TESTING FOUR TIMES A DAY 400 Sep 15, 2019 [id number] Jun 13, 2019 ELEUTERIO MAURO [facility] ALCOHOL PREP PAD Discontinued USE 1 PAD ON SKIN FOUR TIMES A DAY 40 0 Apr 25, 2020 [id number] Nov 29, 2019 ELEUTERIO LIVINGSTON [facility] [place] [facility] ALCOHOL PREP PAD Discontinued USE 1 PAD ON SKIN FOUR TIMES A DAY 40 0 Sep 15, 2019 [id number] Apr 18, 2019 ELEUTERIO LIVINGSTON [facility] ALLOPURINOL 100MG TAB Active TAKE ONE TABLET BY MOUTH ONCE A DAY FOR GOUT. TAKE WITH PLENTY OF WATER 90 Sep 23, 2020 [id number] Mar 05, [address] [facility] [place] [facility] ALLOPURINOL 100MG TAB Discontinued TAKE ONE TABLET BY MOUTH ONCE A DAY FOR GOUT. TAKE WITH PLENTY OF WATER 90 Dec 30, 2019 [id number] Sep 17, [address] [facility] [place] [facility] ALOGLIPTIN 12.5MG TAB Active TAKE ONE TABLET BY MOUTH O NCE A DAY FOR DIABETES 90 Sep 12, 2020 [id number] Mar 04, 2020 BALTRUSAITIS,ELEUTERIO CRESPO [facility] [place] [facility] ALOGLIPTIN 12.5MG TAB Discontinued TAKE ONE TABLET BY MOUTH ONCE A DAY FOR DIABETES 90 Dec 22, 2019 [id number] Jun 18, [address] [facility] [place] [facility] AMLODIPINE BESYLATE 10MG TAB Discontinued TAKE ONE TA BLET BY MOUTH EVERY MORNING FOR HEART/BLOOD PRESSURE 90 Jun 10, 2019 [id number] Feb 25, [address] [facility] [place] [facility] AMLODIPINE BESYLATE 10MG TAB TAKE ONE TA BLET BY MOUTH EVERY MORNING FOR HEART/BLOOD PRESSURE 90 Apr 12, 2020 [id number] Feb 10, 2020 SILVINA CHAMBERS [facility] ASPIRIN 81MG TAB,CHEWABLE Non-VA CHEW ONE TABLET BY MOUTH ONCE A DAY Non-VA Documented by: MEGAN HAWK nted at: [facility] [place] [facility] ATORVASTATIN CA 20MG TAB Active TAKE ONE TABLET BY MOUTH ONCE A DAY FOR CHOLESTEROL. REPORT ANY UNEXPLAINED MUSCLE PAIN OR WEAKNESS TO YOUR DOCTOR. 90 Jan 02, 2021 [id number] March 24, 2020 [facility] ATORVASTATIN CA 40MG TAB Discontinued TAKE ONE-HALF T ABLET BY MOUTH AT BEDTIME FOR CHOLESTEROL. REPORT ANY UNEXPLAINED MUSCLE PAIN OR WEAKNESS TO YOUR DOCTOR. 45 Jul 15, 2020 [id number] Oct 14, [address] [facility] [place] [facility] ATORVASTATIN CA 40MG TAB Discontinued TAKE ONE-HALF T ABLET BY MOUTH AT BEDTIME FOR CHOLESTEROL. REPORT ANY UNEXPLAINED MUSCLE PAIN OR WEAKNESS TO YOUR DOCTOR. 45 Oct 12, 2019 [id number] Jul 16, [address] [facility] [place] [facility] CALCIUM CARBONATE 500MG TAB,CHEWABLE Non-VA CHEW ONE TABLET BY MOUTH PRN Non-VA Documented by: THOM CHAMBERS nted at: [facility] CHLORTHALIDONE 25MG TAB Active TAKE ONE TABLET BY MOUTH ONCE A DAY 90 Jul 01, 2020 [id number] March 19, 2020 MONIKA HAMMER [facility] [place] [facility] CHLORTHALIDONE 25MG TAB Discontinued TAKE ONE TABLET BY MOUTH ONCE A DAY 90 Jun 16, 2019 [id number] Apr 12, [address] [facility] [place] [facility] CHOLECALCIFEROL 1000UNT TAB Non-VA TAKE ONE TABLET BY MOUTH EVERY OTHER DAY Non-VA Docume nted by: MEGAN HAWK Docume nted at: [facility] [place] [facility] CYANOCOBALAMIN 1000MCG/ML INJ Active INJECT 100 0 MCG (1 ML) INTRAMUSCULARLY EVERY MONTH FOR B12 SUPPLEMENTATION. 3 Nov 03, 2020 [id number] Apr 23, 2020 [facility] [place] [facility] CYANOCOBALAMIN 1000MCG/ML INJ Discontinued INJECT 100 0 MCG (1 ML) INTRAMUSCULARLY EVERY MONTH FOR B12 SUPPLEMENTATION. 3 Nov 17 0 [id number] Aug 07, [address] [facility] [place] [facility] DIPHENHYDRAMINE HCL 25MG CAP Non-VA TAKE 1 CAPSULE BY MOUTH PRN Non-VA Documented by: THOM CHAMBERS Docume nted at: [facility] DOCUSATE NA 100MG CAP No n-VA TAKE 2 CAPSULES BY MOUTH ONCE A DAY Non-VA Documented by: THOM CHAMBERS Docume nted at: [facility] FISH OIL 1000MG (500MG DHA/EPA) CAP,ORAL Non-VA TAKE 1 CAPSULE BY MOUTH ONCE A DAY Non-VA Documented by: MEGAN HAWK Docume nted at: [facility] GABAPENTIN 100MG CAP Active TAKE 1 CAPSULE BY M OUTH EVERY MORNING AND TAKE 1 CAPSULE BY MOUTH AT NOON AND TAKE 2 CAPSULES BY MOUTH AT BEDTIME 360 Jul 06, 2020 [id number] March 31, 2020 BALTRELEUTERIO ROJAS [facility] [place] [facility] GLUCAGON 1MG/GABRIELLA INJ,EMERGENCY KIT INJEC T 1MG SUBCUTANEOUSLY NEEDED FOR SEVERE HYPOGLYCEMIA 1 Nov 30, 2019 [id number] Nov 03, [address] [facility] [place] [facility] INSULIN,ASPART,HUMAN 100U/ML,NOVOLOG,FLEXPEN,3ML Active: On Hold INJECT 20 UNITS SUBCUTANEOUSLY BEFORE BREAKFAST AND INJECT 20 UNITS BEFORE LUNCH AND INJECT 26 UNITS BEFORE SUPPER AND INJECT 24 UNITS SNACK FOR BLOOD SUGAR CONTROL. ADMINISTER 10 MINUTES BEFORE FOOD DIRECTED. REFRIGERATE UN-OPENED PENS. DISCARD CARTRIDGE 28 DAYS AFTER OPENING. PLUS CORRECTION Mar 01, 2021 [id number] CRYSTALUSAELEUTERIO QUIGLEY [facility] [place] [facility] INSULIN,ASPART,HUMAN 100U/ML,NOVOLOG,FLEXPEN,3ML Discontinue d INJECT 20 UNITS SUBCUTANEOUSLY BEFORE BREAKFAST AND INJECT 20 UNITS BEFORE LUNCH AND INJECT 24 UNITS BEFORE SUPPER AND INJECT 24 UNITS SNACK FOR BLOOD SUGAR CONTROL. ADMINISTER 10 MINUTES BEFORE FOOD DIRECTED. REFRIGERATE UN-OPENED PENS. DISCARD CARTRIDGE 28 DAYS AFTER OPENING. PLUS CORRECTION 30 Jan 26, 2021 [id number] Jan 28, 2020 BALTRUSAELEUTERIO QUIGLEY [facility] [place] [facility] INSULIN,ASPART,HUMAN 100U/ML,NOVOLOG,FLEXPEN,3ML Discontinue d INJECT 20 UNITS SUBCUTANEOUSLY BEFORE MEALS FOR BLOOD SUGAR CONTROL. ADMINISTER 10 MINUTES BEFORE FOOD DIRECTED. REFRIGERATE UN-OPENED PENS. DISCARD CARTRIDGE 28 DAYS AFTER OPENING. PLUS CORRECTION FOR BLOOD SUGAR CONTROL. ADMINISTER 10 MINUTES BEFORE FOOD DIRECTED. REFRIGERATE UN-OPENED PENS. DISCARD CARTRIDGE 28 DAYS AFTER OPENING. PLUS CORRECTION 30 Nov 16, 2020 [id number] Nov 16 [facility] [place] [facility] INSULIN,ASPART,HUMAN 100U/ML,NOVOLOG,FLEXPEN,3ML Discontinue d INJECT 15 UNITS SUBCUTANEOUSLY EVERY MORNING BEFORE MEAL AND INJECT 15 UNITS WITH LUNCH AND INJECT 15 UNITS WITH SUPPER AND INJECT 20 UNITS WITH SNACK FOR BLOOD SUGAR CONTROL. ADMINISTER 10 MINUTES BEFORE FOOD DIRECTED. REFRIGERATE UN-OPENED PENS. DISCARD CARTRIDGE 28 DAYS AFTER OPENING. Dec 22, 2019 [id number] Oct 12, 2019 [facility] [place] [facility] INSULIN,GLARGINE,HUMAN 100 UNIT/ML INJ,SOLOSTAR,3ML Active INJECT 50 UNITS SUBCUTANEOUSLY EVERY MORNING FOR BLOOD SUGAR CONTROL. ADMINISTER AT SAME TIME EACH DAY DIRECTED. DISCARD ANY OPEN CARTRIDGE AFTER 28 DAYS. Sep 23, 2020 [id number] Jan 28, 2020 [facility] [place] [facility] INSULIN,GLARGINE,HUMAN 100 UNIT/ML INJ,SOLOSTAR,3ML Disconti nued INJECT 45 UNITS SUBCUTANEOUSLY EVERY MORNING FOR BLOOD SUGAR CONTROL. ADMINISTER AT SAME TIME EACH DAY DIRECTED. DISCARD ANY OPEN CARTRIDGE AFTER 28 DAYS. Oct 23, 2019 [id number] Aug 30, 2019 [facility] [place] [facility] LACTOBACILLUS ACIDOPHILUS TAB,CHEWABLE Non-VA CHEW ONE TABLET BY MOUTH ONCE A DAY Non-VA Documented by: MEGAN HAWK nted at: [facility] LANCET,SOFTCLIX Active USE LANCET 5 TIME S A DAY FOR TESTING BLOOD GLUCOSE DIRECTED 500 Dec 28, 2020 [id number] March 19, [address] [facility] [place] [facility] LANCET,SOFTCLIX Discontinued USE LANCET 5 TIME S A DAY FOR TESTING BLOOD GLUCOSE DIRECTED 500 Jan 11, 2020 [id number] Sep 29, [address] [facility] [place] [facility] MAGNESIUM OXIDE 400MG TAB Non-VA TAKE ONE TABLET BY MOUTH ONCE A DAY Non-VA Documented by: MEGAN HAWK nted at: [facility] METOPROLOL SUCCINATE 200MG TAB,SA TAKE O NE-HALF TABLET BY MOUTH EVERY EVENING FOR HEART/BLOOD PRESSURE. SWALLOW WHOLE, DO NOT CRUSH OR CHEW (TABLETS MAY BE CUT IN HALF). 45 March 18, 2020 [id number] Dec 28, 2019 STANISLAV HAMMER [facility] NEEDLE 22G 1.5IN USE NEEDLE FOR EVERY MONTH 1 Nov 12, 2019 [id number] Feb 07, [address] [facility] [place] [facility] NEEDLE,PEN 31G,5MM Discontinued USE NEEDLE SUBCUTANE OUSLY 5 TIMES A DAY - THIS IS A SINGLE USE NEEDLE AND SHOULD BE DISCARDED AFTER USE 500 Dec 21, 2019 [id number] Sep 28, [address] [facility] [place] [facility] POTASSIUM CHLORIDE 10MEQ TAB,SA Active TAKE TWO TABLETS BY MOUTH TWO TIMES A DAY FOR POTASSIUM SUPPLEMENTATIONTAKE WITH FOOD 360 Dec 12, 2020 [id number] Mar 02, 2020 YANELY QUINTERO [facility] [place] 15 POTASSIUM CHLORIDE 10MEQ TAB,SA Discontinued TAKE ONE TABLET BY MOUTH THREE TIMES A DAY WITH MEALS FOR POTASSIUM SUPPLEMENTATIONTAKE WITH FOOD 180 March 16, 2020 [id number] Nov 29, 2019 BALTRUSAELEUTERIO QUIGLEY [facility] [place] [facility] POTASSIUM CHLORIDE 10MEQ TAB,SA Discontinued TAKE ONE TABLET BY MOUTH THREE TIMES A DAY WITH MEALS FOR POTASSIUM SUPPLEMENTATIONTAKE WITH FOOD 180 May 26, 2019 [id number] Jan 24, 2019 YANELY QUINTERO [facility] [place] [facility] SYRINGE 2.5-3ML/NDL 25G 1IN Active USE 1 SYRINGE EVERY MONTH 3 Feb 21, 2021 [id number] March 20, 2020 [facility] SYRINGE 2.5-3ML/NDL 25G 1IN Discontinued USE 1 SYRINGE EVERY Thu 3 March 18, 2020 [id number] Dec 21, 2019 [facility] TESTOSTERONE CYPIONATE 200MG/ML INJ,1ML (IN OIL) Active INJECT 200 MG (1 ML) INTRAMUSCULARLY EVERY MONTH FOR HORMONE REPLACEMENT 1 May 18, 2020 [id number] April 06, [address] [facility] [place] TESTOSTERONE CYPIONATE 200MG/ML INJ,1ML (IN OIL) Discontinue d INJECT 200 MG (1 ML) INTRAMUSCULARLY EVERY MONTH FOR HORMONE REPLACEMENT 1 March 25, 2020 [id number] Oct 25, [address] [facility] [place] TESTOSTERONE CYPIONATE 200MG/ML INJ,1ML (IN OIL) Discontinue d INJECT 200 MG (1 ML) INTRAMUSCULARLY EVERY MONTH FOR HORMONE REPLACEMENT 1 Nov 06, 2019 [id number] Sep 25, [address] [facility] [place] TESTOSTERONE CYPIONATE 200MG/ML INJ,1ML (IN OIL) Discontinue d INJECT 200 MG (1 ML) INTRAMUSCULARLY EVERY MONTH FOR HORMONE REPLACEMENT 1 May 14, 2019 [id number] Apr 10, [address] [facility] [place] TRAMADOL HCL 50MG TAB Active TAKE 1 TO 2 TABLET S BY MOUTH EVERY 6 HOURS NEEDED FOR PAIN 180 Jul 21, 2020 [id number] March 30, 2020 NELLA GROVE [facility] [place] [facility] TRAMADOL HCL 50MG TAB Discontinued TAKE 1 TO 2 TABLET S BY MOUTH EVERY 6 HOURS NEEDED FOR PAIN 180 Jun 06, 2020 [id number] Jan 11, 2020 ROSSY GROVE [facility] [place] 15 TRAMADOL HCL 50MG TAB Discontinued TAKE 1 TO 2 TABLET S BY MOUTH EVERY 6 HOURS NEEDED FOR PAIN 180 Jun 06, 2020 [id number] Dec 06, 2019 ROSSY GROVE [facility] [place] 15 TRAMADOL HCL 50MG TAB Discontinued TAKE 1 TO 2 TABLET S BY MOUTH EVERY 6 HOURS NEEDED FOR PAIN 180 Dec 14, 2019 [id number] Nov 15, [address] [facility] [place] TRAMADOL HCL 50MG TAB Discontinued TAKE 1 TO 2 TABLET S BY MOUTH EVERY 6 HOURS NEEDED FOR PAIN 180 Jul 06, 2019 [id number] May 26, [address] [facility] [place] [facility] TRIAMCINOLONE ACETONIDE 0.5% CREAM,TOP Active A PPLY SPARINGLY TO AFFECTED AREA ONCE A DAY NEEDED FOR RASH 45 Jul 15, 2020 [id number] April [address] [facility] [place] [facility] TRIAMCINOLONE ACETONIDE 0.5% CREAM,TOP Discontinued A PPLY SPARINGLY TO AFFECTED AREA ONCE A DAY NEEDED FOR RASH 45 Oct 12, 2019 [id number] Jul THOM [address] [facility] [place] [facility] Problems [...] Source Basal cell carcinoma of scalp Active [id number] THOM CHAMBERS [facility] [place] [facility] Chronic back pain Active [id number] REYESTERRIE WALL [facility] [place] [facility] Chronic kidney disease stage 3 Active [id number] THOM CHAMBERS [facility] [place] [facility] Constipation Active 45166634 THOM CHAMBERS [facility] [place] Diabetes mellitus Active 57649322 THOM CHAMBERS [facility] [place] [facility] Diabetic neuropathy Active [id number] Neha CHAMBERS [facility] [place] [facility] Essential hypertension Active 29450758 THOM CHAMBERS [facility] [place] [facility] Hyperlipidemia Active 80863911 THOM CHAMBERS [facility] [place] Hypogonadism Active 86797243 THOM CHAMBERS [facility] [place] Sleep apnea Active 78663992 THOM CHAMBERS [facility] [place] [facility] Radiology Reports: +/- 30 days of the encounter No Data Provided for This Section Pathology Reports: +/- 30 days of the encounter No Data Provided for This Section Encounter Notes: All associated encounter notes This section contains the clinical notes associated to the Encounter. Date/Time Encounter Note(s) Provider Source May 04, 2019 08:52 AM NURSING OUTPATIENT NOTE: LOCAL TITLE: -NURSING CLINIC CHECK-IN STANDARD TITLE: NURSING OUTPATIENT NOTE DATE OF NOTE: MAY 04, 2019@08:52 ENTRY DATE: MAY 04, 2019@08:52:54 AUTHOR: DARIO DUNCAN EXP COSIGNER: URGENCY: STATUS: COMPLETED PRIMARY REASON FOR VISIT TODAY: [place] Testosterone inj Monthly PATIENT'S GOAL/MISSION FOR THEIR HEALTH: be healthy ALLERGIES/ADR: METFORMIN, LISINOPRIL VITALS: DATE/TIME TEMP PULSE RESP BP PAIN WEIGHT PUL OX 05/04/19 @ 0852 98 80 20 128/70 0 176 94 REPRODUCTIVE HISTORY: Concerns regardng sexual/reproductive health: None MEDICATION RECONCILIATION: Copy of current medication list on file provided for patient. Instructed to compare with all medications they are currently taking, and to review /discuss discrepancies with provider. LEARNING ASSESSMENT: Patient's preferred language for discussing health care is: Burmese Today's learning assessment regarding patient's readiness to learn. Patient reads well. Barriers to Learning: Has no barriers to learning. Preferred Method of Learning: Reading Listening Seeing / Videos Demonstration Return Demonstration Hands On/Doing Education provided as per documentation below: SCREENING FOR PAIN STATUS: Patient reported pain level as 0 (05/04/2019 08:52) on 0 to 10 scale. * Today's [...] refill requests and other non-urgent communication. N:Pneumococcal PCV13 ([id number]): The patient declines to receive the recommended dose of pneumococcal conjugate vaccine PCV13 (Prevnar 13). Comment: does not want OTHER OBSERVATION/INTERVENTION: Pt in clinic today for: Testosterone injection Pt purchased injection medication from [place] [facility]. Patient identity verified using 2 forms of ID: Name and Medication given: Testosterone 200 mg (1 ml) Order Verified:11/21/18 Route: IM Location: RIGHT Mfg: [employer] Lot#: [id number] Exp: 10/2020 Dx: hypogonadism Initiated: Received locally until 01-07-19, then from the [place]. Pt rock injection w/o difficulty. RTC [place] injection clinic in 1 month: June 01/ DARIO DUNCAN LPN Signed: 05/04/2019 08:57 DARIO DUNCAN [facility]
--- OUTSIDE RECORDS SUMMARY | 2020-04-18 10:20 | XMS REPORT ---
Author Author [facility] SIMI palacio Organization [facility] Address [address] [place] [phone] Phone Unavailable Care Team Providers Care Slp Teacher Name Role Phone THOM CHAMBERS PCP Unavailable [...] FREEDOM MED REP (R) MEDICARE ADVANTAGE MCR ([facility]) Nov 09, 2017 [id number] [phone] SIMI COVARRUBIAS PATIENT ADVANTRA FREEDOM MED REP (WNR) MEDICARE ADVANTAGE MCR ([employer] [facility]) Nov 09, 2017 [id number] [phone] SMII COVARRUBIAS PATIENT AETNA MCR ([employer] [facility]) MEDICARE ADVANTAGE MCR ([employer] [facility]) Nov 09, 2019 [id number] [id number] SIMI COVARRUBIAS PATIENT Selected Encounter This section includes the information on record at [place] for the Encounter. Date/Time Encounter Type Encounter Description Reason Provider Source Jun 01, 2019 12:00 AM Outpatient Encounter [facility] Encounter Template Text not used by [place] Assessments - Encounter Diagnoses No Data Provided [...] 2019 03:30 PM AMBULATORY - NONE [facility] [place] [facility] Jun 30, 2019 10:00 AM [facility]ORY - NONE [facility] Jul 07, 2019 11:45 AM [facility] Jul 14, 2019 11:00 AM AMBULATORY - NONE [facility] Jul 28, 2019 10:00 AM AMBULATORY - NONE [facility] Aug 04, 2019 11:00 AM AMBULATORY - NONE [facility] Aug 16, 2019 01:00 PM AMBULATORY - NONE [facility] Aug 25, 2019 10:00 AM AMBULATORY - NONE [facility] Sep 15, 2019 12:00 PM [facility] Sep 22, 2019 10:00 AM AMBULATORY - NONE [facility] Sep 23, 2019 11:00 AM AMBULATORY - NONE [facility] Oct 17, 2019 03:00 PM AMBULATORY - NONE [facility] Oct 20, 2019 10:00 AM AMBULATORY - NONE [facility] Nov 10, 2019 12:00 PM [facility] Nov 16, 2019 02:00 PM AMBULATORY - SURGERY [facility] [place] [facility] Nov 16, 2019 03:00 PM AMBULATORY - NONE [facility] Nov 17, 2019 10:00 AM AMBULATORY - NONE [facility] Dec 01, 2019 11:30 AM [facility]ATORY - [facility]ICINE [facility] Surgical Procedures: All associated [...] Adverse Reactions (ADR s) on record with [place] for the patient. The data comes from a ll [place] treatment facilities. It does not list Allergies/ADRs that were removed or entered in error. Some allergies/ADRs may be reported in t he Immunization section. Allergen Event Date Event Type Reaction(s) Severity Source LISINOPRIL Dec 01, 2017 Propensity to adverse reactions to drug (disorder) Renal impairment [facility], [facility] 15 METFORMIN Dec 01, 2017 Propensity to adverse reactions to drug (disorder) Renal impairment [facility] Medications: VA dispensed (-15 months) and Non-VA Documented (Obtained Outside A) Section Date Range: 1) prescriptions processed by a VA pharmacy in the last 15 m [facility], and 2) all medications recorded in [...] TIMES A DAY 400 Sep 12, 2020 [id number] Feb 29, 2020 BALTRUSAELEUTERIO QUIGLEY [facility] ACCU-CHEK ROSINA PLUS (GLUCOSE) TEST STRIP Discontinued USE 1 STRIP FOR TESTING FOUR TIMES A DAY 400 Sep 15, 2019 [id number] Jun 13, 2019 BALTRUSAIT IS,ELEUTERIO Larry [facility] ALCOHOL PREP PAD Discontinued USE 1 PAD ON SKIN FOUR TIMES A DAY 40 0 Apr 25, 2020 [id number] Nov 29, 2019 BALTRUSAITIS,ELEUTERIO Larry [facility] [place] [facility] ALCOHOL PREP PAD Discontinued USE 1 PAD ON SKIN FOUR TIMES A DAY 40 0 Sep 15, 2019 [id number] Apr 18, 2019 BALTRUSAITIS,ELEUTERIO Larry [facility] ALLOPURINOL 100MG TAB Active TAKE ONE TABLET BY MOUTH ONCE A DAY FOR GOUT. TAKE WITH PLENTY OF WATER 90 Sep 23, 2020 [id number] Mar 05, 2020 SILVINA CHAMBERS [facility] [place] [facility] ALLOPURINOL 100MG TAB Discontinued TAKE ONE TABLET BY MOUTH ONCE A DAY FOR GOUT. TAKE WITH PLENTY OF WATER 90 Dec 30, 2019 [id number] Sep 17, 2019 THOM SHARPE [facility] ALOGLIPTIN 12.5MG TAB Active TAKE ONE TABLET BY MOUTH O NCE A DAY FOR DIABETES 90 Sep 12, 2020 [id number] Mar 04, 2020 BALELEUTERIO KONG [facility] [place] [facility] ALOGLIPTIN 12.5MG TAB Discontinued TAKE ONE TABLET BY MOUTH ONCE A DAY FOR DIABETES 90 Dec 22, 2019 [id number] Jun 18, 2019 BALTRELEUTERIO ROJAS [facility] AMLODIPINE BESYLATE 10MG TAB Discontinued TAKE ONE TA BLET BY MOUTH EVERY MORNING FOR HEART/BLOOD PRESSURE 90 Jun 10, 2019 [id number] Feb 25, 2019 MONIKA HAMMER [facility] AMLODIPINE BESYLATE 10MG TAB TAKE ONE TA BLET BY MOUTH EVERY MORNING FOR HEART/BLOOD PRESSURE 90 Apr 12, 2020 [id number] Feb 10, 2020 SILVINA CHAMBERS [facility] ASPIRIN 81MG TAB,CHEWABLE Non-VA CHEW ONE TABLET BY MOUTH ONCE A DAY Non-VA Documented by: MEGAN HAWK nted at: [facility] [place] [facility] ATORVASTATIN CA 20MG TAB Active TAKE ONE TABLET BY MOUTH ONCE A DAY FOR CHOLESTEROL. REPORT ANY UNEXPLAINED MUSCLE PAIN OR WEAKNESS TO YOUR DOCTOR. 90 Jan 02, 2021 [id number] March 24, 2020 NELLA GROVE [facility], [facility] 15 ATORVASTATIN CA 40MG TAB Discontinued TAKE ONE-HALF T ABLET BY MOUTH AT BEDTIME FOR CHOLESTEROL. REPORT ANY UNEXPLAINED MUSCLE PAIN OR WEAKNESS TO YOUR DOCTOR. 45 Jul 15, 2020 [id number] Oct 14, 2019 THOM CHAMBERS [facility] [place] [facility] ATORVASTATIN CA 40MG TAB Discontinued TAKE ONE-HALF T ABLET BY MOUTH AT BEDTIME FOR CHOLESTEROL. REPORT ANY UNEXPLAINED MUSCLE PAIN OR WEAKNESS TO YOUR DOCTOR. 45 Oct 12, 2019 [id number] Jul 16, 2019 [facility] [place] [facility] CALCIUM CARBONATE 500MG TAB,CHEWABLE Non-VA CHEW ONE TABLET BY MOUTH PRN Non-VA Documented by: THOM CHAMBERS nted at: [facility] CHLORTHALIDONE 25MG TAB Active TAKE ONE TABLET BY MOUTH ONCE A DAY 90 Jul 01, 2020 [id number] March 19, 2020 MONIKA HAMMER [facility] [facility] CHLORTHALIDONE 25MG TAB Discontinued TAKE ONE TABLET BY MOUTH ONCE A DAY 90 Jun 16, 2019 [id number] Apr 12, 2019 MONIKA HAMMER [facility] [place] [facility] CHOLECALCIFEROL 1000UNT TAB Non-VA TAKE ONE TABLET BY MOUTH EVERY OTHER DAY Non-VA Docume nted by: MEGAN HAWK Docume nted at: [facility] [place] [facility] CYANOCOBALAMIN 1000MCG/ML INJ Active INJECT 100 0 MCG (1 ML) INTRAMUSCULARLY EVERY MONTH FOR B12 SUPPLEMENTATION. 3 Nov 03, 2020 [id number] Apr 23, 2020 THOM CHAMBERS [facility] [facility] CYANOCOBALAMIN 1000MCG/ML INJ Discontinued INJECT 100 0 MCG (1 ML) INTRAMUSCULARLY EVERY MONTH FOR B12 SUPPLEMENTATION. 3 Nov 17 0 [id number] Aug 07, 2019 THOM CHAMBERS [facility] DIPHENHYDRAMINE HCL 25MG CAP Non-VA TAKE 1 CAPSULE BY MOUTH PRN Non-VA Documented by: THOM CHAMBERS nted at: [facility] DOCUSATE NA 100MG CAP No n-VA TAKE 2 CAPSULES BY MOUTH ONCE A DAY Non-VA Documented by: THOM CHAMBERS nted at: [facility] FISH OIL 1000MG (500MG DHA/EPA) CAP,ORAL Non-VA TAKE 1 CAPSULE BY MOUTH ONCE A DAY Non-VA Documented by: MEGAN HAWK nted at: [facility] [place] [facility] GABAPENTIN 100MG CAP Active TAKE 1 CAPSULE BY M OUTH EVERY MORNING AND TAKE 1 CAPSULE BY MOUTH AT NOON AND TAKE 2 CAPSULES BY MOUTH AT BEDTIME 360 Jul 06, 2020 [id number] March 31, 2020 ELEUTERIO LIVINGSTON [facility] [place] [facility] GLUCAGON 1MG/GARBIELLA INJ,EMERGENCY KIT INJEC T 1MG SUBCUTANEOUSLY NEEDED FOR SEVERE HYPOGLYCEMIA 1 Nov 30, 2019 [id number] Nov 03, 2019 REYES THOM [facility] [place] [facility] INSULIN,ASPART,HUMAN 100U/ML,NOVOLOG,FLEXPEN,3ML Active: On Hold INJECT 20 UNITS SUBCUTANEOUSLY BEFORE BREAKFAST AND INJECT 20 UNITS BEFORE LUNCH AND INJECT 26 UNITS BEFORE SUPPER AND INJECT 24 UNITS SNACK FOR BLOOD SUGAR CONTROL. ADMINISTER 10 MINUTES BEFORE FOOD DIRECTED. REFRIGERATE UN-OPENED PENS. DISCARD CARTRIDGE 28 DAYS AFTER OPENING. PLUS CORRECTION Mar 01, 2021 [id number] ELEUTERIO LIVINGSTON [facility] [place] INSULIN,ASPART,HUMAN 100U/ML,NOVOLOG,FLEXPEN,3ML Discontinue d INJECT 20 UNITS SUBCUTANEOUSLY BEFORE BREAKFAST AND INJECT 20 UNITS BEFORE LUNCH AND INJECT 24 UNITS BEFORE SUPPER AND INJECT 24 UNITS SNACK FOR BLOOD SUGAR CONTROL. ADMINISTER 10 MINUTES BEFORE FOOD DIRECTED. REFRIGERATE UN-OPENED PENS. DISCARD CARTRIDGE 28 DAYS AFTER OPENING. PLUS CORRECTION Jan 26, 2021 [id number] Jan 28, 2020 ELEUTERIO LIVINGSTON [facility] INSULIN,ASPART,HUMAN 100U/ML,NOVOLOG,FLEXPEN,3ML Discontinue d INJECT 20 UNITS SUBCUTANEOUSLY BEFORE MEALS FOR BLOOD SUGAR CONTROL. ADMINISTER 10 MINUTES BEFORE FOOD DIRECTED. REFRIGERATE UN-OPENED PENS. DISCARD CARTRIDGE 28 DAYS AFTER OPENING. PLUS CORRECTION FOR BLOOD SUGAR CONTROL. ADMINISTER 10 MINUTES BEFORE FOOD DIRECTED. REFRIGERATE UN-OPENED PENS. DISCARD CARTRIDGE 28 DAYS AFTER OPENING. PLUS CORRECTION 30 Nov 16, 2020 [id number] Nov [address] [facility] [place] [facility] INSULIN,ASPART,HUMAN 100U/ML,NOVOLOG,FLEXPEN,3ML Discontinue d INJECT 15 UNITS SUBCUTANEOUSLY EVERY MORNING BEFORE MEAL AND INJECT 15 UNITS WITH LUNCH AND INJECT 15 UNITS WITH SUPPER AND INJECT 20 UNITS WITH SNACK FOR BLOOD SUGAR CONTROL. ADMINISTER 10 MINUTES BEFORE FOOD DIRECTED. REFRIGERATE UN-OPENED PENS. DISCARD CARTRIDGE 28 DAYS AFTER OPENING. Dec 22, 2019 [id number] Oct 12, 2019 ELEUTERIO LIVINGSTON [facility] [place] [facility] INSULIN,GLARGINE,HUMAN 100 UNIT/ML INJ,SOLOSTAR,3ML Active INJECT 50 UNITS SUBCUTANEOUSLY EVERY MORNING FOR BLOOD SUGAR CONTROL. ADMINISTER AT SAME TIME EACH DAY DIRECTED. DISCARD ANY OPEN CARTRIDGE AFTER 28 DAYS. Sep 23, 2020 [id number] Jan 28, 2020 ELEUTERIO LIVINGSTON [facility] [place] [facility] INSULIN,GLARGINE,HUMAN 100 UNIT/ML INJ,SOLOSTAR,3ML Disconti nued INJECT 45 UNITS SUBCUTANEOUSLY EVERY MORNING FOR BLOOD SUGAR CONTROL. ADMINISTER AT SAME TIME EACH DAY DIRECTED. DISCARD ANY OPEN CARTRIDGE AFTER 28 DAYS. Oct 23, 2019 [id number] Aug 30, 2019 ELEUTERIO LIVINGSTON [facility] [place] [facility] LACTOBACILLUS ACIDOPHILUS TAB,CHEWABLE Non-VA CHEW ONE TABLET BY MOUTH ONCE A DAY Non-VA Documented by: MEGAN HAWKed at: [facility] LANCET,SOFTCLIX Active USE LANCET 5 TIME S A DAY FOR TESTING BLOOD GLUCOSE DIRECTED 500 Dec 28, 2020 [id number] March 19, 2020 [facility] LANCET,SOFTCLIX Discontinued USE LANCET 5 TIME S A DAY FOR TESTING BLOOD GLUCOSE DIRECTED 500 Jan 11, 2020 [id number] Sep 29, 2019 YAYA [facility]ERIO [facility] MAGNESIUM OXIDE 400MG TAB Non-VA TAKE ONE TABLET BY MOUTH ONCE A DAY Non-VA Documented by: MEGAN HAWKed at: [facility] METOPROLOL SUCCINATE 200MG TAB,SA TAKE O NE-HALF TABLET BY MOUTH EVERY EVENING FOR HEART/BLOOD PRESSURE. SWALLOW WHOLE, DO NOT CRUSH OR CHEW (TABLETS MAY BE CUT IN HALF). 45 March 18, 2020 [id number] Dec 28, 2019 STANISLAV HAMMER [facility] NEEDLE 22G 1.5IN USE NEEDLE FOR EVERY MONTH 1 Nov 12, 2019 [id number] Feb 07, 2019 ADELAIDA CLIFFORD [facility] [place] [facility] NEEDLE,PEN 31G,5MM Discontinued USE NEEDLE SUBCUTANE OUSLY 5 TIMES A DAY - THIS IS A SINGLE USE NEEDLE AND SHOULD BE DISCARDED AFTER USE 500 Dec 21, 2019 [id number] Sep 28, 2019 BALTRUSAITIS,ELEUTERIO Larry [facility] POTASSIUM CHLORIDE 10MEQ TAB,SA Active TAKE TWO TABLETS BY MOUTH TWO TIMES A DAY FOR POTASSIUM SUPPLEMENTATIONTAKE WITH FOOD 360 Dec 12, 2020 [id number] Mar 02, 2020 [facility] POTASSIUM CHLORIDE 10MEQ TAB,SA Discontinued TAKE ONE TABLET BY MOUTH THREE TIMES A DAY WITH MEALS FOR POTASSIUM SUPPLEMENTATIONTAKE WITH FOOD 180 March 16, 2020 [id number] Nov 29, 2019 BALTRUSAITIS,ELEUTERIO Larry [facility] [place] [facility] POTASSIUM CHLORIDE 10MEQ TAB,SA Discontinued TAKE ONE TABLET BY MOUTH THREE TIMES A DAY WITH MEALS FOR POTASSIUM SUPPLEMENTATIONTAKE WITH FOOD 180 May 26, 2019 [id number] Jan 24, 2019 YANELY QUINTERO [facility] [place] [facility] SYRINGE 2.5-3ML/NDL 25G 1IN Active USE 1 SYRINGE EVERY MONTH 3 Feb 21, 2021 [id number] March 20, 2020 [facility] SYRINGE 2.5-3ML/NDL 25G 1IN Discontinued USE 1 SYRINGE EVERY Thu 3 March 18, 2020 [id number] Dec 21, 2019 [facility] TESTOSTERONE CYPIONATE 200MG/ML INJ,1ML (IN OIL) Active INJECT 200 MG (1 ML) INTRAMUSCULARLY EVERY MONTH FOR HORMONE REPLACEMENT May 18, 2020 [id number] April 06, 2020 ADELAIDA CLIFFORD [facility] [place] [facility] TESTOSTERONE CYPIONATE 200MG/ML INJ,1ML (IN OIL) Discontinue d INJECT 200 MG (1 ML) INTRAMUSCULARLY EVERY MONTH FOR HORMONE REPLACEMENT March 25, 2020 [id number] Oct 25, 2019 ADELAIDA CLIFFORD [facility] [facility] TESTOSTERONE CYPIONATE 200MG/ML INJ,1ML (IN OIL) Discontinue d INJECT 200 MG (1 ML) INTRAMUSCULARLY EVERY MONTH FOR HORMONE REPLACEMENT 1 Nov 06, 2019 [id number] Sep 25, 2019 ADELAIDA CLIFFORD [facility] [place] [facility] TESTOSTERONE CYPIONATE 200MG/ML INJ,1ML (IN OIL) Discontinue d INJECT 200 MG (1 ML) INTRAMUSCULARLY EVERY MONTH FOR HORMONE REPLACEMENT 1 May 14, 2019 [id number] Apr 10, 2019 ADELAIDA CLIFFORD [facility] TRAMADOL HCL 50MG TAB Active TAKE 1 TO 2 TABLET S BY MOUTH EVERY 6 HOURS NEEDED FOR PAIN 180 Jul 21, 2020 [id number] March 30, 2020 [facility], [facility] 15 TRAMADOL HCL 50MG TAB Discontinued TAKE 1 TO 2 TABLET S BY MOUTH EVERY 6 HOURS NEEDED FOR PAIN 180 Jun 06, 2020 [id number] Jan 11, 2020 [facility], [facility] 15 TRAMADOL HCL 50MG TAB Discontinued TAKE 1 TO 2 TABLET S BY MOUTH EVERY 6 HOURS NEEDED FOR PAIN 180 Jun 06, 2020 [id number] Dec 06, 2019 [facility], [facility] 15 TRAMADOL HCL 50MG TAB Discontinued TAKE 1 TO 2 TABLET S BY MOUTH EVERY 6 HOURS NEEDED FOR PAIN 180 Dec 14, 2019 [id number] Nov 15, 2019 DANTE VALVERDE [facility] [place] [facility] TRAMADOL HCL 50MG TAB Discontinued TAKE 1 TO 2 TABLET S BY MOUTH EVERY 6 HOURS NEEDED FOR PAIN 180 Jul 06, 2019 [id number] May 26, 2019 NELLA GROVE [facility] [place] [facility] TRIAMCINOLONE ACETONIDE 0.5% CREAM,TOP Active A PPLY SPARINGLY TO AFFECTED AREA ONCE A DAY NEEDED FOR RASH 45 Jul 15, 2020 [id number] April 01 0 THOM CHAMBERS [facility] [place] [facility] TRIAMCINOLONE ACETONIDE 0.5% CREAM,TOP Discontinued A PPLY SPARINGLY TO AFFECTED AREA ONCE A DAY NEEDED FOR RASH 45 Oct 12, 2019 [id number] Jul THOM CHAMBERS [facility] [place] [facility] Problems (Conditions): All historical [...] Source Basal cell carcinoma of scalp Active [id number] HTOM CHAMBERS [facility] [place] [facility] Chronic back pain Active [id number] TERRIE CHAMBERS [facility] [place] [facility] Chronic kidney disease stage 3 Active [id number] THOM CHAMBERS [facility] [place] [facility] Constipation Active [id number] THOM CHAMBERS [facility] [place] [facility] Diabetes mellitus Active [id number] THOM CHAMBERS [facility] [place] [facility] Di[facility] neuropathy Active [id number] Neha CHAMBERS [facility] [place] [facility] Essential hypertension Active [id number] THOM CHAMBERS [facility] [place] [facility] Hyperlipidemia Active [id number] THOM CHAMBERS [facility] [place] [facility] Hypogonadism Active [id number] THOM CHAMBERS [facility] [place] [facility] Sleep apnea Active [id number] THOM CHAMBERS [facility] [place] [facility] Radiology Reports: +/- 30 days of the encounter No Data Provided for This Section Pathology Reports: +/- 30 days of the encounter No Data Provided for This Section Encounter Notes: All associated encounter notes No Data Provided for This Section
--- OUTSIDE RECORDS SUMMARY | 2020-04-18 10:20 | XMS REPORT ---
Author Author Department of [facility] SIMI palacio Organization [facility] Address [address] [place] [phone] Phone Unavailable Care Team Providers Care Superintendent General Name Role Phone THOM CHAMBERS PCP Unavailable [...] Woodard [facility] ([facility]) MEDICARE ADVANTAGE MCR ([facility]) Nov 09, 2017 [id number] [phone] SIMI COVARRUBIAS PATIENT [facility] RE[facility] (R) MEDICARE ADVANTAGE MCR ([facility]) Nov 09, 2017 [id number] [phone] SIMI COVARRUBIAS PATIENT [facility] ([facility]) MEDICARE ADVANTAGE MCR ([facility]) Nov 09, [phone] [id number] SIMI COVARRUBIAS PATIENT Selected Encounter This section includes the information on [place] at [place] for the Encounter. Date/Time Encounter Type Encounter Description Reason Provider Source May 06, 2019 03:11 PM Outpatient Encounter ADMIN PAT ACTIVTIES (MASNO [...] 01, 2019 02:00 PM AMBULATORY - NONE [facility] Jun 09, 2019 03:30 PM AMBULATORY - NONE [facility] [place] Jun 30, 2019 10:00 AM AMBULATORY - NONE [facility] Jul 07, 2019 11:45 AM AMBULATORY - MEDICINE [facility] Jul 14, 2019 11:00 AM AMBULATORY - NONE [facility] [place] [facility] Jul 28, 2019 10:00 AM AMBULATORY - NONE [facility] Aug 04, 2019 11:00 AM AMBULATORY - NONE [facility] [place] [facility] Aug 16, 2019 01:00 PM AMBULATORY - NONE [facility] [place] [facility] Aug 25, 2019 10:00 AM AMBULATORY - NONE [facility] Sep 15, 2019 12:00 PM AM[facility]ULATORY - [facility]IC[facility] Sep 22, 2019 10:00 AM AMBULATORY - NONE [facility] Sep 23, 2019 11:00 AM AMBULATORY - NONE [facility] [place] [facility] Oct 17, 2019 03:00 PM AMBULATORY - NONE [facility] [place] [facility] Oct 20, [...] adverse reactions to drug (disorder) Renal impairment [facility] 15 METFORMIN Dec 01, 2017 Propensity to adverse reactions to drug (disorder) Renal impairment [facility] Medications: [facility] dispensed (-15 months) and [...] may be a prescription from either the [place] or other providers that was filled outside the [place]. Or, it may be an over the [...] TIMES A DAY 400 Sep 12, 2020 [id number] Feb 29, 2020 [facility] PLUS (GLUCOSE) TEST STRIP Discontinued USE 1 STRIP FOR TESTING FOUR TIMES A DAY 400 Sep 15, 2019 [id number] Jun 13, 2019 [facility]AD Discontinued USE 1 PAD ON SKIN FOUR TIMES A DAY 40 0 Apr 25, 2020 [id number] Nov 29, 2019 BALTRUSAELEUTERIO QUIGLEY ARDEN Charly [facility] [place] [facility] ALCOHOL PREP PAD Discontinued USE 1 PAD ON SKIN FOUR TIMES A DAY 40 0 Sep 15, 2019 [id number] Apr 18, 2019 BALTRUSAELEUTERIO QUIGLEY [facility] ALLOPURINOL 100MG TAB Active TAKE ONE TABLET BY MOUTH ONCE A DAY FOR GOUT. TAKE WITH PLENTY OF WATER 90 Sep 23, 2020 [id number] Mar 05, 2020 SILVINA CHAMBERS [facility] [place] ALLOPURINOL 100MG TAB Discontinued TAKE ONE TABLET BY MOUTH ONCE A DAY FOR GOUT. TAKE WITH PLENTY OF WATER 90 Dec 30, 2019 [id number] Sep 17, 2019 THOM SHARPE [facility] [place] [facility] ALOGLIPTIN 12.5MG TAB Active TAKE ONE TABLET BY MOUTH O NCE A DAY FOR DIABETES 90 Sep 12, 2020 [id number] Mar 04, 2020 BALELEUTERIO KONG ZAK [facility] [place] ALOGLIPTIN 12.5MG TAB Discontinued TAKE ONE TABLET BY MOUTH ONCE A DAY FOR DIABETES 90 Dec 22, 2019 [id number] Jun 18, 2019 BALELEUTERIO KONG [facility] [place] [facility] AMLODIPINE BESYLATE 10MG TAB Discontinued TAKE ONE TA BLET BY MOUTH EVERY MORNING FOR HEART/BLOOD PRESSURE 90 Jun 10, 2019 [id number] Feb 25, 2019 MONIKA HAMMER [facility] [place] AMLODIPINE BESYLATE 10MG TAB TAKE ONE TA BLET BY MOUTH EVERY MORNING FOR HEART/BLOOD PRESSURE 90 Apr 12, 2020 [id number] Feb 10, 2020 SILVINA CHAMBERS [facility] ASPIRIN 81MG TAB,CHEWABLE Non-VA CHEW ONE TABLET BY MOUTH ONCE A DAY Non-VA Documented by: MEGAN HAWK nted at: [facility] [place] [facility] ATORVASTATIN CA 20MG TAB Active TAKE ONE TABLET BY MOUTH ONCE A DAY FOR CHOLESTEROL. REPORT ANY UNEXPLAINED MUSCLE PAIN OR WEAKNESS TO YOUR DOCTOR. 90 Jan 02, 2021 [id number] March 24, 2020 NELLA GROVE [facility] ATORVASTATIN CA 40MG TAB Discontinued TAKE ONE-HALF T ABLET BY MOUTH AT BEDTIME FOR CHOLESTEROL. REPORT ANY UNEXPLAINED MUSCLE PAIN OR WEAKNESS TO YOUR DOCTOR. 45 Jul 15, 2020 [id number] Oct 14, 2019 REYESTHOM [facility] [place] [facility] ATORVASTATIN CA 40MG TAB Discontinued TAKE ONE-HALF T ABLET BY MOUTH AT BEDTIME FOR CHOLESTEROL. REPORT ANY UNEXPLAINED MUSCLE PAIN OR WEAKNESS TO YOUR DOCTOR. 45 Oct 12, 2019 [id number] Jul 16, 2019 REYESTHOM [facility] [place] CALCIUM CARBONATE 500MG TAB,CHEWABLE Non-VA CHEW ONE TABLET BY MOUTH PRN Non-VA Documented by: THOM CHAMBERS nted at: [facility] CHLORTHALIDONE 25MG TAB Active TAKE ONE TABLET BY MOUTH ONCE A DAY 90 Jul 01, 2020 [id number] March 19, 2020 MONIKA HAMMER [facility] [place] [facility] CHLORTHALIDONE 25MG TAB Discontinued TAKE ONE TABLET BY MOUTH ONCE A DAY 90 Jun 16, 2019 [id number] Apr 12, 2019 MONIKA HAMMER [facility] [place] [facility] CHOLECALCIFEROL 1000UNT TAB Non-VA TAKE ONE TABLET BY MOUTH EVERY OTHER DAY Non-VA Docume nted by: MEGAN HAWK Docume nted at: [facility] [place] [facility] CYANOCOBALAMIN 1000MCG/ML INJ Active INJECT 100 0 MCG (1 ML) INTRAMUSCULARLY EVERY MONTH FOR B12 SUPPLEMENTATION. 3 Nov 03, 2020 [id number] Apr 23, 2020 REYESTHOM [facility] [place] CYANOCOBALAMIN 1000MCG/ML INJ Discontinued INJECT 100 0 MCG (1 ML) INTRAMUSCULARLY EVERY MONTH FOR B12 SUPPLEMENTATION. 3 Nov 17 0 [id number] Aug 07, 2019 THOM CHAMBERS [facility] [place] DIPHENHYDRAMINE HCL 25MG CAP Non-VA TAKE 1 CAPSULE BY MOUTH PRN Non-VA Documented by: THOM CHAMBERS nted at: [facility] DOCUSATE NA 100MG CAP No n-VA TAKE 2 CAPSULES BY MOUTH ONCE A DAY Non-VA Documented by: THOM CHAMBERS Docume nted at: [facility] FISH OIL 1000MG (500MG DHA/EPA) CAP,ORAL Non-VA TAKE 1 CAPSULE BY MOUTH ONCE A DAY Non-VA Documented by: MEGAN HAWK [facility] nted at: [facility] GABAPENTIN 100MG CAP Active TAKE 1 CAPSULE BY M OUTH EVERY MORNING AND TAKE 1 CAPSULE BY MOUTH AT NOON AND TAKE 2 CAPSULES BY MOUTH AT BEDTIME 360 Jul 06, 2020 [id number] March 31, 2020 ELEUTERIO [facility] GLUCAGON 1MG/GABRIELLA INJ,EMERGENCY KIT INJEC T 1MG SUBCUTANEOUSLY NEEDED FOR SEVERE HYPOGLYCEMIA 1 Nov 30, 2019 [id number] Nov 03, 2019 THOM CHAMBERS [facility] [place] [facility] INSULIN,ASPART,HUMAN 100U/ML,NOVOLOG,FLEXPEN,3ML Active: On Hold INJECT 20 UNITS SUBCUTANEOUSLY BEFORE BREAKFAST AND INJECT 20 UNITS BEFORE LUNCH AND INJECT 26 UNITS BEFORE SUPPER AND INJECT 24 UNITS SNACK FOR BLOOD SUGAR CONTROL. ADMINISTER 10 MINUTES BEFORE FOOD DIRECTED. REFRIGERATE UN-OPENED PENS. DISCARD CARTRIDGE 28 DAYS AFTER OPENING. PLUS CORRECTION Mar 01, 2021 [id number] ELEUTERIO LIVINGSTON [facility] [place] [facility] INSULIN,ASPART,HUMAN 100U/ML,NOVOLOG,FLEXPEN,3ML Discontinue d INJECT 20 UNITS SUBCUTANEOUSLY BEFORE BREAKFAST AND INJECT 20 UNITS BEFORE LUNCH AND INJECT 24 UNITS BEFORE SUPPER AND INJECT 24 UNITS SNACK FOR BLOOD SUGAR CONTROL. ADMINISTER 10 MINUTES BEFORE FOOD DIRECTED. REFRIGERATE UN-OPENED PENS. DISCARD CARTRIDGE 28 DAYS AFTER OPENING. PLUS CORRECTION Jan 26, 2021 [id number] Jan 28, 2020 ELEUTERIO LIVINGSTON [facility] [place] [facility] INSULIN,ASPART,HUMAN 100U/ML,NOVOLOG,FLEXPEN,3ML Discontinue d INJECT 20 UNITS SUBCUTANEOUSLY BEFORE MEALS FOR BLOOD SUGAR CONTROL. ADMINISTER 10 MINUTES BEFORE FOOD DIRECTED. REFRIGERATE UN-OPENED PENS. DISCARD CARTRIDGE 28 DAYS AFTER OPENING. PLUS CORRECTION FOR BLOOD SUGAR CONTROL. ADMINISTER 10 MINUTES BEFORE FOOD DIRECTED. REFRIGERATE UN-OPENED PENS. DISCARD CARTRIDGE 28 DAYS AFTER OPENING. PLUS CORRECTION 30 Nov 16, 2020 [id number] Nov 16 20 ELEUTERIO LIVINGSTON [facility] [place] [facility] INSULIN,ASPART,HUMAN 100U/ML,NOVOLOG,FLEXPEN,3ML Discontinue d INJECT 15 UNITS SUBCUTANEOUSLY EVERY MORNING BEFORE MEAL AND INJECT 15 UNITS WITH LUNCH AND INJECT 15 UNITS WITH SUPPER AND INJECT 20 UNITS WITH SNACK FOR BLOOD SUGAR CONTROL. ADMINISTER 10 MINUTES BEFORE FOOD DIRECTED. REFRIGERATE UN-OPENED PENS. DISCARD CARTRIDGE 28 DAYS AFTER OPENING. 20 Dec 22, 2019 [id number] Oct 12, 2019 ELEUTERIO LIVINGSTON [facility] [place] [facility] INSULIN,GLARGINE,HUMAN 100 UNIT/ML INJ,SOLOSTAR,3ML Active INJECT 50 UNITS SUBCUTANEOUSLY EVERY MORNING FOR BLOOD SUGAR CONTROL. ADMINISTER AT SAME TIME EACH DAY DIRECTED. DISCARD ANY OPEN CARTRIDGE AFTER 28 DAYS. Sep 23, 2020 [id number] Jan 28, 2020 ELEUTERIO LIVINGSTON [facility] [place] [facility] INSULIN,GLARGINE,HUMAN 100 UNIT/ML INJ,SOLOSTAR,3ML Disconti nued INJECT 45 UNITS SUBCUTANEOUSLY EVERY MORNING FOR BLOOD SUGAR CONTROL. ADMINISTER AT SAME TIME EACH DAY DIRECTED. DISCARD ANY OPEN CARTRIDGE AFTER 28 DAYS. Oct 23, 2019 [id number] Aug 30, 2019 ELEUTERIO LIVINGSTON [facility] [place] [facility] LACTOBACILLUS ACIDOPHILUS TAB,CHEWABLE Non-VA CHEW ONE TABLET BY MOUTH ONCE A DAY Non-VA Documented by: MEGAN HAWK nted at: [facility] LANCET,SOFTCLIX Active USE LANCET 5 TIME S A DAY FOR TESTING BLOOD GLUCOSE DIRECTED 500 Dec 28, 2020 [id number] March 19, 2020 ELEUTERIO LIVINGSTON [facility] [place] [facility] LANCET,SOFTCLIX Discontinued USE LANCET 5 TIME S A DAY FOR TESTING BLOOD GLUCOSE DIRECTED 500 Jan 11, 2020 [id number] Sep 29, 2019 [facility]ERIO [facility] MAGNESIUM OXIDE 400MG TAB Non-VA TAKE ONE TABLET BY MOUTH ONCE A DAY Non-[place] Documented by: MEGAN HAWK nted at: [facility] METOPROLOL SUCCINATE 200MG TAB,SA TAKE O NE-HALF TABLET BY MOUTH EVERY EVENING FOR HEART/BLOOD PRESSURE. SWALLOW WHOLE, DO NOT CRUSH OR CHEW (TABLETS MAY BE CUT IN HALF). 45 March 18, 2020 [id number] Dec 28, 2019 STANISLAV HAMMER [facility] NEEDLE 22G 1.5IN USE NEEDLE FOR EVERY MONTH Nov 12, 2019 [id number] Feb 07, 2019 ADELAIDA CLIFFORD [facility] [place] NEEDLE,PEN 31G,5MM Discontinued USE NEEDLE SUBCUTANE OUSLY 5 TIMES A DAY - THIS IS A SINGLE USE NEEDLE AND SHOULD BE DISCARDED AFTER USE 500 Dec 21, 2019 [id number] Sep 28, 2019 BALTRUSAITIS,ELEUTERIO Larry [facility] [place] POTASSIUM CHLORIDE 10MEQ TAB,SA Active TAKE TWO TABLETS BY MOUTH TWO TIMES A DAY FOR POTASSIUM SUPPLEMENTATIONTAKE WITH FOOD 360 Dec 12, 2020 [id number] Mar 02, 2020 [facility] POTASSIUM CHLORIDE 10MEQ TAB,SA Discontinued TAKE ONE TABLET BY MOUTH THREE TIMES A DAY WITH MEALS FOR POTASSIUM SUPPLEMENTATIONTAKE WITH FOOD 180 March 16, 2020 [id number] Nov 29, 2019 BALTRUSAITIS,ELEUTERIO [facility] [place] POTASSIUM CHLORIDE 10MEQ TAB,SA Discontinued TAKE ONE TABLET BY MOUTH THREE TIMES A DAY WITH MEALS FOR POTASSIUM SUPPLEMENTATIONTAKE WITH FOOD 180 May 26, 2019 [id number] Jan 24, 2019 [facility] [place] SYRINGE 2.5-3ML/NDL 25G 1IN Active USE 1 SYRINGE EVERY MONTH 3 Feb 21, 2021 [id number] March 20, 2020 [facility] SYRINGE 2.5-3ML/NDL 25G 1IN Discontinued USE 1 SYRINGE EVERY Thu 3 March 18, 2020 [id number] Dec 21, 2019 [facility] TESTOSTERONE CYPIONATE 200MG/ML INJ,1ML (IN OIL) Active INJECT 200 MG (1 ML) INTRAMUSCULARLY EVERY MONTH FOR HORMONE REPLACEMENT 1 May 18, 2020 [id number] April 06, 2020 ADELAIDA CLIFFORD [facility] [place] TESTOSTERONE CYPIONATE 200MG/ML INJ,1ML (IN OIL) Discontinue d INJECT 200 MG (1 ML) INTRAMUSCULARLY EVERY MONTH FOR HORMONE REPLACEMENT March 25, 2020 [id number] Oct 25, 2019 ADELAIDA CLIFFORD [facility] [place] TESTOSTERONE CYPIONATE 200MG/ML INJ,1ML (IN OIL) Discontinue d INJECT 200 MG (1 ML) INTRAMUSCULARLY EVERY MONTH FOR HORMONE REPLACEMENT 1 Nov 06, 2019 [id number] Sep 25, 2019 ADELAIDA CLIFFORD [facility] [place] TESTOSTERONE CYPIONATE 200MG/ML INJ,1ML (IN OIL) Discontinue d INJECT 200 MG (1 ML) INTRAMUSCULARLY EVERY MONTH FOR HORMONE REPLACEMENT 1 May 14, 2019 [id number] Apr 10, 2019 ADELAIDA CLIFFORD [facility] [place] [facility] TRAMADOL HCL 50MG TAB Active TAKE 1 TO 2 TABLET S BY MOUTH EVERY 6 HOURS NEEDED FOR PAIN 180 Jul 21, 2020 [id number] March 30, 2020 [facility] 15 TRAMADOL HCL 50MG TAB Discontinued TAKE 1 TO 2 TABLET S BY MOUTH EVERY 6 HOURS NEEDED FOR PAIN 180 Jun 06, 2020 [id number] Jan 11, 2020 [facility] 15 TRAMADOL HCL 50MG TAB Discontinued TAKE 1 TO 2 TABLET S BY MOUTH EVERY 6 HOURS NEEDED FOR PAIN 180 Jun 06, 2020 [id number] Dec 06, 2019 [facility] 15 TRAMADOL HCL 50MG TAB Discontinued TAKE 1 TO 2 TABLET S BY MOUTH EVERY 6 HOURS NEEDED FOR PAIN 180 Dec 14, 2019 [id number] Nov 15, 2019 DANTE VALVERDE [facility] [place] TRAMADOL HCL 50MG TAB Discontinued TAKE 1 TO 2 TABLET S BY MOUTH EVERY 6 HOURS NEEDED FOR PAIN 180 Jul 06, 2019 [id number] May 26, 2019 [facility] [place] [facility] TRIAMCINOLONE ACETONIDE 0.5% CREAM,TOP Active A PPLY SPARINGLY TO AFFECTED AREA ONCE A DAY NEEDED FOR RASH 45 Jul 15, 2020 [id number] April 01 0 [facility] [place] [facility] TRIAMCINOLONE ACETONIDE 0.5% CREAM,TOP Discontinued A PPLY SPARINGLY TO AFFECTED AREA ONCE A DAY NEEDED FOR RASH 45 Oct 12, 2019 [id number] Jul THOM CHAMBERS [facility] [place] Problems (Conditions): All [...] Source Basal cell carcinoma of scalp Active [id number] THOM CHAMBERS [facility] [place] Chronic back pain Active [id number] TERRIE CHAMBERS [facility] [place] [facility] Chronic kidney disease stage 3 Active [id number] THMO CHAMBERS [facility] [place] Constipation Active [id number] THOM CHAMBERS [facility] [place] Diabetes mellitus Active [id number] THOM CHAMBERS [facility] [place] Diabetic neuropathy Active [id number] Neha [facility] [place] Essential hypertension Active [id number] THOM CHAMBERS [facility] [place] Hyperlipidemia Active 38609030 THOM CHAMBERS [facility] [place] Hypogonadism Active 89933051 THOM CHAMBERS [facility] [place] Sleep apnea Active [id number] THOM CHAMBERS [facility] [place] Radiology Reports: +/- 30 days of the encounter No Data Provided for This Section Pathology Reports: +/- 30 days of the encounter No Data Provided for This Section Encounter Notes: All associated encounter notes This section contains the clinical notes associated to the Encounter. Date/Time Encounter Note(s) Provider Source May 06, 2019 03:12 PM PHYSICIAN GEM TECHNICIAN NOTE: LOCAL TITLE: EK-PHYSICIAN ASST SURGERY STANDARD TITLE: PHYSICIAN GEM TECHNICIAN NOTE DATE OF NOTE: MAY 06, 2019@15:12 ENTRY DATE: MAY 06, 2019@15:12:42 AUTHOR: ADELAIDA CLIFFORD EXP COSIGNER: URGENCY: STATUS: COMPLETED Refilled testosterone cyp. /es/ ADELAIDA CLIFFORD PA-C Signed: 05/06/2019 15:12 ADELAIDA CLIFFORD [facility] [place]
--- OUTSIDE RECORDS SUMMARY | 2020-04-18 10:23 | XMS REPORT | Encounter Summary ---
Author Author Department [facility] SIMI palacio Organization Department of [facility] Address [address] [place] [id number] Phone Unavailable Care Team Providers Care Clinical Data Specialist Name Role Phone REYES THOM PCP Unavailable [...] [facility] REP (R) MEDICARE ADVANTAGE [facility] ([facility]) Nov 09, 2017 [id number] [phone] SIMI COVARRUBIAS PATIENT [facility] REP (WNR) MEDICARE [facility] ([facility]) Nov 09, 2017 [id number] [phone] SIMI COVARRUBIAS PATIENT AETNA [facility] (WNR) MEDICARE ADVANTAGE M[facility] (R) Nov 09, 2019 [id number] SIMI COVARRUBIAS PATIENT Selected Encounter This section includes the information on record at [place] for the Encounter. Date/Time Encounter Type Encounter Description Reason Provider Source May 04, 2019 01:26 PM Outpatient Encounter ADMIN PAT ACTIVTIES (MASNO NCT) [facility], [facility] 15 IHE Encounter Template Text not used by [place] Assessments - Encounter Diagnoses No Data Provided for This Section Plan of Treatment: Future Appointments (+ 6 months) and Future Tests (+/- 45 day s) The Plan of Treatment section includes future care activities for the patient fr om all [place] treatment facilities. This section includes future appointments and fu ture orders which are active, pending or scheduled. Future Appointments This section includes appointments that were scheduled t o occur 6 months from the date of the Encounter, up to a maximum of 20 appointme nts. The data comes from all [place] treatment facilities. Appointment Date/Time Appointment Type Appointment Facili ty Name Jun 01, 2019 02:00 PM [facility]ORY [facility]ONE [facility] Jun 09, 2019 03:30 PM AMBULATORY - NONE [facility] Jun 30, 2019 10:00 AM [facility] Jul 07, 2019 11:45 AM [facility] Jul 14, 2019 11:00 AM AMBULATORY - NONE [facility] Jul 28, 2019 10:00 AM [facility] Aug 04, 2019 11:00 AM AMBULATORY - NONE [facility] Aug 16, 2019 01:00 PM AMBULATORY - NONE [facility] Aug 25, 2019 10:00 AM [facility] Sep 15, 2019 12:00 PM [facility] Sep 22, 2019 10:00 AM [facility] Sep 23, 2019 11:00 AM AMBULATORY - NONE [facility] Oct 17, 2019 03:00 PM AMBULATORY - NONE [facility] Oct 20, [...] patient. The data comes from a ll [place] treatment facilities. It does not list Allergies/ADRs that were removed or entered in error. Some allergies/ADRs may be reported in t he Immunization section. Allergen Event Date Event Type Reaction(s) Severity Source LISINOPRIL Dec 01, 2017 Propensity to adverse reactions to drug (disorder) Renal impairment [facility] METFORMIN Dec 01, 2017 Propensity to adverse reactions to drug (disorder) Renal impairment [facility] Medications: VA dispensed (-15 months) and Non-VA Documented (Obtained Outside V A) Section Date Range: 1) prescriptions processed by a VA pharmacy in the last 15 m [facility], and 2) all medications recorded in the [place] medical record as "non-VA medic ations". Pharmacy terms refer to VA pharmacy's work on prescriptions. VA patient s are advised to take their medications as instructed by their health care team. The data comes from all [place] treatment facilities. Glossary of Pharmacy Terms:Active = A prescription that can be filled at the local [place] pharmacy.Active: On Hold = An active prescription that will not be filled until pharmacy resolves the issue.Active: Susp = An active prescription that is not scheduled to be filled yet.Clinic Order = A medication received during a visit to a [place] clinic or emergency department (currently not available).Discontinued [...] other providers that was filled outside the [place]. Or, it may be an over the [...] TIMES A DAY 400 Sep 12, 2020 [id number] Feb 29, 2020 ELEUTERIO LIVINGSTON [facility] ACCU-CHEK ROSINA PLUS (GLUCOSE) TEST STRIP Discontinued USE 1 STRIP FOR TESTING FOUR TIMES A DAY 400 Sep 15, 2019 [id number] Jun 13, 2019 ELEUTERIO LARA L [facility] ALCOHOL PREP PAD Discontinued USE 1 PAD ON SKIN FOUR TIMES A DAY 40 0 Apr 25, 2020 [id number] Nov 29, 2019 BALELEUTERIO KONG [facility] [place] [facility] ALCOHOL PREP PAD Discontinued USE 1 PAD ON SKIN FOUR TIMES A DAY 40 0 Sep 15, 2019 [id number] Apr 18, 2019 BALELEUTERIO KONG [facility] ALLOPURINOL 100MG TAB Active TAKE ONE TABLET BY MOUTH ONCE A DAY FOR GOUT. TAKE WITH PLENTY OF WATER 90 Sep 23, 2020 [id number] Mar 05, 2020 SILVINA CHAMBERS [facility] ALLOPURINOL 100MG TAB Discontinued TAKE ONE TABLET BY MOUTH ONCE A DAY FOR GOUT. TAKE WITH PLENTY OF WATER 90 Dec 30, 2019 [id number] Sep 17, 2019 THOM SHARPE [facility] [place] [facility] ALOGLIPTIN 12.5MG TAB Active TAKE ONE TABLET BY MOUTH O NCE A DAY FOR DIABETES 90 Sep 12, 2020 [id number] Mar 04, 2020 YARAELEUTERIO [facility] [place] [facility] ALOGLIPTIN 12.5MG TAB Discontinued TAKE ONE TABLET BY MOUTH ONCE A DAY FOR DIABETES 90 Dec 22, 2019 [id number] Jun 18, 2019 ELEUTERIO LIVINGSTON Laron [facility] [place] AMLODIPINE BESYLATE 10MG TAB Discontinued TAKE ONE TA BLET BY MOUTH EVERY MORNING FOR HEART/BLOOD PRESSURE 90 Jun 10, 2019 [id number] Feb 25, 2019 MONIKA HAMMER [facility] [place] [facility] AMLODIPINE BESYLATE 10MG TAB TAKE ONE TA BLET BY MOUTH EVERY MORNING FOR HEART/BLOOD PRESSURE 90 Apr 12, 2020 [id number] Feb 10, 2020 SILVINA CHAMBERS [facility] ASPIRIN 81MG TAB,CHEWABLE Non-VA CHEW ONE TABLET BY MOUTH ONCE A DAY Non-VA Documented by: MEGAN HAWK at: [facility] ATORVASTATIN CA 20MG TAB Active TAKE ONE TABLET BY MOUTH ONCE A DAY FOR CHOLESTEROL. REPORT ANY UNEXPLAINED MUSCLE PAIN OR WEAKNESS TO YOUR DOCTOR. 90 Jan 02, 2021 [id number] March 24, 2020 NELLA GROVE [facility] [place] 15 ATORVASTATIN CA 40MG TAB Discontinued TAKE ONE-HALF T ABLET BY MOUTH AT BEDTIME FOR CHOLESTEROL. REPORT ANY UNEXPLAINED MUSCLE PAIN OR WEAKNESS TO YOUR DOCTOR. 45 Jul 15, 2020 [id number] Oct 14, 2019 REYESTHOM [facility] [place] [facility] ATORVASTATIN CA 40MG TAB Discontinued TAKE ONE-HALF T ABLET BY MOUTH AT BEDTIME FOR CHOLESTEROL. REPORT ANY UNEXPLAINED MUSCLE PAIN OR WEAKNESS TO YOUR DOCTOR. 45 Oct 12, 2019 [id number] Jul 16, 2019 REYESTHOM [facility] [place] CALCIUM CARBONATE 500MG TAB,CHEWABLE Non-VA CHEW ONE TABLET BY MOUTH PRN Non-VA Documented by: THOM CHAMBERS nted at: [facility] CHLORTHALIDONE 25MG TAB Active TAKE ONE TABLET BY MOUTH ONCE A DAY 90 Jul 01, 2020 [id number] March 19, 2020 MONIKA HAMMER [facility] [place] [facility] CHLORTHALIDONE 25MG TAB Discontinued TAKE ONE TABLET BY MOUTH ONCE A DAY 90 Jun 16, 2019 [id number] Apr 12, 2019 MONIKA HAMMER [facility] [place] [facility] CHOLECALCIFEROL 1000UNT TAB Non-VA TAKE ONE TABLET BY MOUTH EVERY OTHER DAY Non-VA Docume nted by: MEGAN HAWK nted at: [facility] CYANOCOBALAMIN 1000MCG/ML INJ Active INJECT 100 0 MCG (1 ML) INTRAMUSCULARLY EVERY MONTH FOR B12 SUPPLEMENTATION. 3 Nov 03, 2020 [id number] Apr 23, 2020 [facility] [place] [facility] CYANOCOBALAMIN 1000MCG/ML INJ Discontinued INJECT 100 0 MCG (1 ML) INTRAMUSCULARLY EVERY MONTH FOR B12 SUPPLEMENTATION. 3 Nov 17 0 [id number] Aug 07, 2019 THOM CHAMBERS [facility] DIPHENHYDRAMINE HCL 25MG CAP Non-VA TAKE 1 CAPSULE BY MOUTH PRN Non-VA Documented by: THOM CHAMBERS nted at: [facility] DOCUSATE NA 100MG CAP No n-VA TAKE 2 CAPSULES BY MOUTH ONCE A DAY Non-VA Documented by: THOM CHAMBERS nted at: [facility] FISH OIL 1000MG (500MG DHA/EPA) CAP,ORAL Non-VA TAKE 1 CAPSULE BY MOUTH ONCE A DAY Non-VA Documented by: MOPPIN,MEGAN R Docume nted at: [facility] GABAPENTIN 100MG CAP Active TAKE 1 CAPSULE BY M OUTH EVERY MORNING AND TAKE 1 CAPSULE BY MOUTH AT NOON AND TAKE 2 CAPSULES BY MOUTH AT BEDTIME 360 Jul 06, 2020 [id number] March 31, 2020 ELEUTERIO LIVINGSTON [facility] GLUCAGON 1MG/GABRIELLA INJ,EMERGENCY KIT INJEC T 1MG SUBCUTANEOUSLY NEEDED FOR SEVERE HYPOGLYCEMIA 1 Nov 30, 2019 [id number] Nov 03, 2019 THOM CHAMBERS [facility] INSULIN,ASPART,HUMAN 100U/ML,NOVOLOG,FLEXPEN,3ML Active: On Hold INJECT 20 UNITS SUBCUTANEOUSLY BEFORE BREAKFAST AND INJECT 20 UNITS BEFORE LUNCH AND INJECT 26 UNITS BEFORE SUPPER AND INJECT 24 UNITS SNACK FOR BLOOD SUGAR CONTROL. ADMINISTER 10 MINUTES BEFORE FOOD DIRECTED. REFRIGERATE UN-OPENED PENS. DISCARD CARTRIDGE 28 DAYS AFTER OPENING. PLUS CORRECTION Mar 01, 2021 [id number] ELEUTERIO LIVINGSTON [facility] [place] [facility] INSULIN,ASPART,HUMAN 100U/ML,NOVOLOG,FLEXPEN,3ML Discontinue d INJECT 20 UNITS SUBCUTANEOUSLY BEFORE BREAKFAST AND INJECT 20 UNITS BEFORE LUNCH AND INJECT 24 UNITS BEFORE SUPPER AND INJECT 24 UNITS SNACK FOR BLOOD SUGAR CONTROL. ADMINISTER 10 MINUTES BEFORE FOOD DIRECTED. REFRIGERATE UN-OPENED PENS. DISCARD CARTRIDGE 28 DAYS AFTER OPENING. PLUS CORRECTION 30 Jan 26, 2021 [id number] Jan 28, 2020 ELEUTERIO LIVINGSTON [facility] INSULIN,ASPART,HUMAN 100U/ML,NOVOLOG,FLEXPEN,3ML Discontinue d INJECT 20 UNITS SUBCUTANEOUSLY BEFORE MEALS FOR BLOOD SUGAR CONTROL. ADMINISTER 10 MINUTES BEFORE FOOD DIRECTED. REFRIGERATE UN-OPENED PENS. DISCARD CARTRIDGE 28 DAYS AFTER OPENING. PLUS CORRECTION FOR BLOOD SUGAR CONTROL. ADMINISTER 10 MINUTES BEFORE FOOD DIRECTED. REFRIGERATE UN-OPENED PENS. DISCARD CARTRIDGE 28 DAYS AFTER OPENING. PLUS CORRECTION Nov 16, 2020 [id number] Nov 16 ELEUTERIO LIVINGSTON [facility] [facility] INSULIN,ASPART,HUMAN 100U/ML,NOVOLOG,FLEXPEN,3ML Discontinue d INJECT 15 UNITS SUBCUTANEOUSLY EVERY MORNING BEFORE MEAL AND INJECT 15 UNITS WITH LUNCH AND INJECT 15 UNITS WITH SUPPER AND INJECT 20 UNITS WITH SNACK FOR BLOOD SUGAR CONTROL. ADMINISTER 10 MINUTES BEFORE FOOD DIRECTED. REFRIGERATE UN-OPENED PENS. DISCARD CARTRIDGE 28 DAYS AFTER OPENING. Dec 22, 2019 [id number] Oct 12, 2019 ELEUTERIO LIVINGSTON [facility] INSULIN,GLARGINE,HUMAN 100 UNIT/ML INJ,SOLOSTAR,3ML Active INJECT 50 UNITS SUBCUTANEOUSLY EVERY MORNING FOR BLOOD SUGAR CONTROL. ADMINISTER AT SAME TIME EACH DAY DIRECTED. DISCARD ANY OPEN CARTRIDGE AFTER 28 DAYS. 15 Sep 23, 2020 [id number] Jan 28, 2020 ELEUTERIO LIVINGSTON [facility] INSULIN,GLARGINE,HUMAN 100 UNIT/ML INJ,SOLOSTAR,3ML Disconti nued INJECT 45 UNITS SUBCUTANEOUSLY EVERY MORNING FOR BLOOD SUGAR CONTROL. ADMINISTER AT SAME TIME EACH DAY DIRECTED. DISCARD ANY OPEN CARTRIDGE AFTER 28 DAYS. Oct 23, 2019 [id number] Aug 30, 2019 ELEUTERIO LIVINGSTON [facility] LACTOBACILLUS ACIDOPHILUS TAB,CHEWABLE Non-VA CHEW ONE TABLET BY MOUTH ONCE A DAY Non-VA Documented by: MEGAN HAWK nted at: [facility] LANCET,SOFTCLIX Active USE LANCET 5 TIME S A DAY FOR TESTING BLOOD GLUCOSE DIRECTED 500 Dec 28, 2020 [id number] March 19, 2020 ELEUTERIO LIVINGSTON [facility] [place] [facility] LANCET,SOFTCLIX Discontinued USE LANCET 5 TIME S A DAY FOR TESTING BLOOD GLUCOSE DIRECTED 500 Jan 11, 2020 [id number] Sep 29, 2019 ELEUTERIO PATEL [facility] MAGNESIUM OXIDE 400MG TAB Non-VA TAKE ONE TABLET BY MOUTH ONCE A DAY Non-VA Documented by: MEGAN HAWK nted at: [facility] METOPROLOL SUCCINATE 200MG TAB,SA TAKE O NE-HALF TABLET BY MOUTH EVERY EVENING FOR HEART/BLOOD PRESSURE. SWALLOW WHOLE, DO NOT CRUSH OR CHEW (TABLETS MAY BE CUT IN HALF). 45 March 18, 2020 [id number] Dec 28, 2019 STANISLAV HAMMER [facility] NEEDLE 22G 1.5IN USE NEEDLE FOR EVERY MONTH Nov 12, 2019 [id number] Feb 07, 2019 ADELAIDA CLIFFORD [facility] [place] [facility] NEEDLE,PEN 31G,5MM Discontinued USE NEEDLE SUBCUTANE OUSLY 5 TIMES A DAY - THIS IS A SINGLE USE NEEDLE AND SHOULD BE DISCARDED AFTER USE 500 Dec 21, 2019 [id number] Sep 28, 2019 BALTRUSAITIS,ELEUTERIO Larry [facility] POTASSIUM CHLORIDE 10MEQ TAB,SA Active TAKE TWO TABLETS BY MOUTH TWO TIMES A DAY FOR POTASSIUM SUPPLEMENTATIONTAKE WITH FOOD 360 Dec 12, 2020 [id number] Mar 02, 2020 [facility] POTASSIUM CHLORIDE 10MEQ TAB,SA Discontinued TAKE ONE TABLET BY MOUTH THREE TIMES A DAY WITH MEALS FOR POTASSIUM SUPPLEMENTATIONTAKE WITH FOOD 180 March 16, 2020 [id number] Nov 29, 2019 BALTRUSAITIS,ELEUTERIO Larry [facility] [place] [facility] POTASSIUM CHLORIDE 10MEQ TAB,SA Discontinued TAKE ONE TABLET BY MOUTH THREE TIMES A DAY WITH MEALS FOR POTASSIUM SUPPLEMENTATIONTAKE WITH FOOD 180 May 26, 2019 [id number] Jan 24, 2019 [facility] [place] [facility] SYRINGE 2.5-3ML/NDL 25G 1IN Active USE 1 SYRINGE EVERY MONTH 3 Feb 21, 2021 [id number] March 20, 2020 [facility] SYRINGE 2.5-3ML/NDL 25G 1IN Discontinued USE 1 SYRINGE EVERY Thu 3 March 18, 2020 [id number] Dec 21, 2019 [facility] TESTOSTERONE CYPIONATE 200MG/ML INJ,1ML (IN OIL) Active INJECT 200 MG (1 ML) INTRAMUSCULARLY EVERY MONTH FOR HORMONE REPLACEMENT 1 May 18, 2020 [id number] April 06, 2020 ADELAIDA CLIFFORD [facility] [place] [facility] TESTOSTERONE CYPIONATE 200MG/ML INJ,1ML (IN OIL) Discontinue d INJECT 200 MG (1 ML) INTRAMUSCULARLY EVERY MONTH FOR HORMONE REPLACEMENT March 25, 2020 [id number] Oct 25, [address] [facility] [place] [facility] TESTOSTERONE CYPIONATE 200MG/ML INJ,1ML (IN OIL) Discontinue d INJECT 200 MG (1 ML) INTRAMUSCULARLY EVERY MONTH FOR HORMONE REPLACEMENT 1 Nov 06, 2019 [id number] Sep 25, [address] [facility] [place] [facility] TESTOSTERONE CYPIONATE 200MG/ML INJ,1ML (IN OIL) Discontinue d INJECT 200 MG (1 ML) INTRAMUSCULARLY EVERY MONTH FOR HORMONE REPLACEMENT 1 May 14, 2019 [id number] Apr 10, 2019 ADELAIDA CLIFFORD [facility] [place] [facility] TRAMADOL HCL 50MG TAB Active TAKE 1 TO 2 TABLET S BY MOUTH EVERY 6 HOURS NEEDED FOR PAIN 180 Jul 21, 2020 [id number] March 30, 2020 [facility] TRAMADOL HCL 50MG TAB Discontinued TAKE 1 TO 2 TABLET S BY MOUTH EVERY 6 HOURS NEEDED FOR PAIN 180 Jun 06, 2020 [id number] Jan 11, 2020 [facility] TRAMADOL HCL 50MG TAB Discontinued TAKE 1 TO 2 TABLET S BY MOUTH EVERY 6 HOURS NEEDED FOR PAIN 180 Jun 06, 2020 [id number] Dec 06, 2019 [facility] TRAMADOL HCL 50MG TAB Discontinued TAKE 1 TO 2 TABLET S BY MOUTH EVERY 6 HOURS NEEDED FOR PAIN 180 Dec 14, 2019 [id number] Nov 15, 2019 DANTE VALVERDE [facility] [place] [facility] TRAMADOL HCL 50MG TAB Discontinued TAKE 1 TO 2 TABLET S BY MOUTH EVERY 6 HOURS NEEDED FOR PAIN 180 Jul 06, 2019 [id number] May 26, 2019 [facility] [place] [facility] TRIAMCINOLONE ACETONIDE 0.5% CREAM,TOP Active A PPLY SPARINGLY TO AFFECTED AREA ONCE A DAY NEEDED FOR RASH 45 Jul 15, 2020 [id number] April 01 0 THOM CHAMBERS [facility] [place] [facility] TRIAMCINOLONE ACETONIDE 0.5% CREAM,TOP Discontinued A PPLY SPARINGLY TO AFFECTED AREA ONCE A DAY NEEDED FOR RASH 45 Oct 12, 2019 [id number] Jul THOM CHAMBERS [facility] [place] [facility] Problems (Conditions): All historical and current Section Date Range: From patient's date of to the date document was create d. This section includes a list of Problems (Conditions) know n to [facility] for the patient. It includes both active and inacti ve problems (conditions). The data comes from all [place] treatment facilities. Problem Status Problem Code Date of Onset Date of Resolution Comm ent(s) Provider Source Basal cell carcinoma of scalp Active [id number] THOM CHAMBERS [facility] [place] [facility] Chronic back pain Active [id number] TERRIE CHAMBERS [facility] [place] [facility] Chronic kidney disease stage 3 Active [id number] THOM [facility]AM[facility] [place] [facility] Constipation Active [id number] THOM CHAMBERS [facility] [place] [facility] Diabetes mellitus Active [id number] THOM CHAMBERS [facility] [place] [facility] Diabetic neuropathy Active [id number] Neha CHAMBERS [facility] [place] [facility] Essential hypertension Active [id number] THOM CHAMBERS [facility] [place] [facility] Hyperlipidemia Active [id number] THOM CHAMBERS [facility] [place] [facility] Hypogonadism Active [id number] THOM CHAMBERS [facility] [place] [facility] Sleep apnea Active [id number] THOM CHAMBERS [facility] [place] [facility] Radiology Reports: +/- 30 days of the encounter No Data Provided for This Section Pathology Reports: +/- 30 days of the encounter No Data Provided for This Section Encounter Notes: All associated encounter notes This section contains the clinical notes associated to the Encounter. Date/Time Encounter Note(s) Provider Source May 04, 2019 01:26 PM SCANNED NOTE: LOCAL TITLE: EK-SCANNED DOCUMENT-OUTSIDE MED REC STANDARD TITLE: SCANNED NOTE DATE OF NOTE: MAY 04, 2019@13:26:33 ENTRY DATE: JUN 06, 2019@13:26:33 AUTHOR: BIANCA CANAS EXP COSIGNER: URGENCY: STATUS: COMPLETED CHOICE 40 - EK OPHTHALMOLOGY - ILIANA CHEN Scanned document attached to this note SCANNED DOCUMENT SIGNATURE NOT REQUIRED Electronically Filed: 06/06/2019 by: BIANCA CANAS [facility] [place] [facility]
--- OUTSIDE RECORDS SUMMARY | 2020-04-18 10:23 | XMS REPORT | Encounter Summary ---
Author Author [facility] SIMI palacio Organization Department of [facility] Address [address] [place] [id number] Phone Unavailable Care Team Providers Care Hospital Unit Coordinator Name Role Phone THOM CHAMBERS PCP Unavailable [...] FREEDOM MED REP (WNR) MEDICARE ADVANTAGE MCR ([facility]) Nov 09, 2017 [id number] [phone] SIMI COVARRUBIAS PATIENT ADVANTRA FREEDOM MED REP (WNR) MEDICARE ADVANTAGE MCR ([facility]) Nov 09, 2017 [id number] [phone] SIMI COVARRUBIAS PATIENT AETNA MCR (WN) MEDICARE ADVANTAGE MCR ([facility]) Nov 09, [id number] [id number] SIMI COVARRUBIAS PATIENT Selected Encounter This section includes the information on record at PA for the Encounter. Date/Time Encounter Type Encounter Description Reason Provider Source May 04, 2019 12:00 AM Outpatient Encounter [facility] Encounter Template Text not [...] 09, 2019 03:30 PM AMBULATORY - NONE [facility] [place] [facility] Jun 30, 2019 10:00 AM [facility]ONE [facility] Jul 07, 2019 11:45 AM AMBULATORY - MEDICINE [facility] Jul 14, 2019 11:00 AM AMBULATORY - NONE [facility] Jul 28, 2019 10:00 AM AM[facility]ULATORY - NONE [facility] Aug 04, 2019 11:00 AM AMBULATORY - NONE [facility] [place] Aug 16, 2019 01:00 PM AMBULATORY - NONE [facility] [facility] Aug 25, 2019 10:00 AM AM[facility]UL[facility]ORY - NONE [facility] Sep 15, 2019 12:00 PM [facility] Sep 22, 2019 10:00 AM AM[facility]UL[facility]ORY - NONE [facility] Sep 23, 2019 11:00 AM AMBULATORY - NONE [facility] Oct 17, 2019 03:00 PM AMBULATORY - NONE [facility] Oct 20, 2019 10:00 AM AMBULATORY - NONE [facility] Surgical [...] to drug (disorder) Renal impairment [facility] 15 METFORMIN Dec 01, 2017 Propensity to adverse reactions to drug (disorder) Renal impairment [facility] Medications: VA dispensed (-15 months) and Non-VA Documented (Obtained Outside V A) Section Date Range: 1) prescriptions processed by a VA pharmacy in the last 15 m [facility], and 2) all medications recorded [...] TIMES A DAY 400 Sep 12, 2020 [id number] Feb 29, 2020 ELEUTERIO LIVINGSTON [facility] ACCU-CHEK ROSINA PLUS (GLUCOSE) TEST STRIP Discontinued USE 1 STRIP FOR TESTING FOUR TIMES A DAY 400 Sep 15, 2019 [id number] Jun 13, 2019 [facility] ALCOHOL PREP PAD Discontinued USE 1 PAD ON SKIN FOUR TIMES A DAY 40 0 Apr 25, 2020 [id number] Nov 29, 2019 BALTRUSAITISELEUTERIO MCDONOUGH Charly [facility] [place] [facility] ALCOHOL PREP PAD Discontinued USE 1 PAD ON SKIN FOUR TIMES A DAY 40 0 Sep 15, 2019 [id number] Apr 18, 2019 BALTRUSAITIS,ELEUTERIO Larry [facility] ALLOPURINOL 100MG TAB Active TAKE ONE TABLET BY MOUTH ONCE A DAY FOR GOUT. TAKE WITH PLENTY OF WATER 90 Sep 23, 2020 [id number] Mar 05, 2020 SILVINA CHAMBERS [facility] [place] [facility] ALLOPURINOL 100MG TAB Discontinued TAKE ONE TABLET BY MOUTH ONCE A DAY FOR GOUT. TAKE WITH PLENTY OF WATER 90 Dec 30, 2019 [id number] Sep 17, 2019 THOM SHARPE [facility] [place] [facility] ALOGLIPTIN 12.5MG TAB Active TAKE ONE TABLET BY MOUTH O NCE A DAY FOR DIABETES 90 Sep 12, 2020 [id number] Mar 04, [address] [facility] [place] [facility] ALOGLIPTIN 12.5MG TAB Discontinued TAKE ONE TABLET BY MOUTH ONCE A DAY FOR DIABETES 90 Dec 22, 2019 [id number] Jun 18, 2019 BALTRELEUTERIO ROJAS Laron [facility] [place] [facility] AMLODIPINE BESYLATE 10MG TAB Discontinued TAKE ONE TA BLET BY MOUTH EVERY MORNING FOR HEART/BLOOD PRESSURE 90 Jun 10, 2019 [id number] Feb 25, 2019 MONIKA HAMMER [facility] [place] [facility] AMLODIPINE BESYLATE 10MG TAB TAKE ONE TA BLET BY MOUTH EVERY MORNING FOR HEART/BLOOD PRESSURE 90 Apr 12, 2020 [id number] Feb 10, 2020 SILVINA CHAMBERS [facility] ASPIRIN 81MG TAB,CHEWABLE Non-VA CHEW ONE TABLET BY MOUTH ONCE A DAY Non-VA Documented by: MEGAN HAWK nted at: [facility] ATORVASTATIN CA 20MG TAB Active TAKE ONE TABLET BY MOUTH ONCE A DAY FOR CHOLESTEROL. REPORT ANY UNEXPLAINED MUSCLE PAIN OR WEAKNESS TO YOUR DOCTOR. 90 Jan 02, 2021 [id number] March 24, 2020 NELLA GROVE [facility] [place] 15 ATORVASTATIN CA 40MG TAB Discontinued TAKE ONE-HALF T ABLET BY MOUTH AT BEDTIME FOR CHOLESTEROL. REPORT ANY UNEXPLAINED MUSCLE PAIN OR WEAKNESS TO YOUR DOCTOR. 45 Jul 15, 2020 [id number] Oct 14, 2019 THOM CHAMBERS [facility] [place] ATORVASTATIN CA 40MG TAB Discontinued TAKE ONE-HALF T ABLET BY MOUTH AT BEDTIME FOR CHOLESTEROL. REPORT ANY UNEXPLAINED MUSCLE PAIN OR WEAKNESS TO YOUR DOCTOR. 45 Oct 12, 2019 [id number] Jul 16, 2019 REYESTHOM [facility] [place] [facility] CALCIUM CARBONATE 500MG TAB,CHEWABLE Non-VA CHEW ONE TABLET BY MOUTH PRN Non-VA Documented by: THOM CHAMBERSume nted at: [facility] CHLORTHALIDONE 25MG TAB Active TAKE ONE TABLET BY MOUTH ONCE A DAY 90 Jul 01, 2020 [id number] March 19, 2020 MONIKA HAMMER [facility] [place] [facility] CHLORTHALIDONE 25MG TAB Discontinued TAKE ONE TABLET BY MOUTH ONCE A DAY 90 Jun 16, 2019 [id number] Apr 12, 2019 MONIKA HAMMER [facility] [place] [facility] CHOLECALCIFEROL 1000UNT TAB Non-VA TAKE ONE TABLET BY MOUTH EVERY OTHER DAY Non-VA Docume nted by: MEGAN HAWK Docume nted at: [facility] [place] [facility] CYANOCOBALAMIN 1000MCG/ML INJ Active INJECT 100 0 MCG (1 ML) INTRAMUSCULARLY EVERY MONTH FOR B12 SUPPLEMENTATION. 3 Nov 03, 2020 [id number] Apr 23, 2020 THOM CHAMBERS [facility] [place] [facility] CYANOCOBALAMIN 1000MCG/ML INJ Discontinued INJECT 100 0 MCG (1 ML) INTRAMUSCULARLY EVERY MONTH FOR B12 SUPPLEMENTATION. 3 Nov 17 0 [id number] Aug 07, 2019 THOM CHAMBERS [facility] [place] [facility] DIPHENHYDRAMINE HCL 25MG CAP Non-VA TAKE 1 CAPSULE BY MOUTH PRN Non-VA Documented by: THOM CHAMBERS nted at: [facility] DOCUSATE NA 100MG CAP No n-VA TAKE 2 CAPSULES BY MOUTH ONCE A DAY Non-VA Documented by: THOM CHAMBERS Docume nted at: [facility] FISH OIL 1000MG (500MG DHA/EPA) CAP,ORAL Non-VA TAKE 1 CAPSULE BY MOUTH ONCE A DAY Non-VA Documented by: MEGAN HAWK Docume nted at: [facility] [place] GABAPENTIN 100MG CAP Active TAKE 1 CAPSULE BY M OUTH EVERY MORNING AND TAKE 1 CAPSULE BY MOUTH AT NOON AND TAKE 2 CAPSULES BY MOUTH AT BEDTIME 360 Jul 06, 2020 [id number] March 31, [address] [facility] [place] [facility] GLUCAGON 1MG/GABRIELLA INJ,EMERGENCY KIT INJEC T 1MG SUBCUTANEOUSLY NEEDED FOR SEVERE HYPOGLYCEMIA 1 Nov 30, 2019 [id number] Nov 03, 2019 THOM CHAMBERS [facility] [place] [facility] INSULIN,ASPART,HUMAN 100U/ML,NOVOLOG,FLEXPEN,3ML Active: On Hold INJECT 20 UNITS SUBCUTANEOUSLY BEFORE BREAKFAST AND INJECT 20 UNITS BEFORE LUNCH AND INJECT 26 UNITS BEFORE SUPPER AND INJECT 24 UNITS SNACK FOR BLOOD SUGAR CONTROL. ADMINISTER 10 MINUTES BEFORE FOOD DIRECTED. REFRIGERATE UN-OPENED PENS. DISCARD CARTRIDGE 28 DAYS AFTER OPENING. PLUS CORRECTION Mar 01, 2021 [id number] ELEUTERIO LIVINGSTON [facility] [place] [facility] INSULIN,ASPART,HUMAN 100U/ML,NOVOLOG,FLEXPEN,3ML Discontinue d INJECT 20 UNITS SUBCUTANEOUSLY BEFORE BREAKFAST AND INJECT 20 UNITS BEFORE LUNCH AND INJECT 24 UNITS BEFORE SUPPER AND INJECT 24 UNITS SNACK FOR BLOOD SUGAR CONTROL. ADMINISTER 10 MINUTES BEFORE FOOD DIRECTED. REFRIGERATE UN-OPENED PENS. DISCARD CARTRIDGE 28 DAYS AFTER OPENING. PLUS CORRECTION Jan 26, 2021 [id number] Jan 28, 2020 YARAELEUTERIO Laron [facility] [place] [facility] INSULIN,ASPART,HUMAN 100U/ML,NOVOLOG,FLEXPEN,3ML Discontinue d INJECT 20 UNITS SUBCUTANEOUSLY BEFORE MEALS FOR BLOOD SUGAR CONTROL. ADMINISTER 10 MINUTES BEFORE FOOD DIRECTED. REFRIGERATE UN-OPENED PENS. DISCARD CARTRIDGE 28 DAYS AFTER OPENING. PLUS CORRECTION FOR BLOOD SUGAR CONTROL. ADMINISTER 10 MINUTES BEFORE FOOD DIRECTED. REFRIGERATE UN-OPENED PENS. DISCARD CARTRIDGE 28 DAYS AFTER OPENING. PLUS CORRECTION Nov 16, 2020 [id number] [facility] INSULIN,ASPART,HUMAN 100U/ML,NOVOLOG,FLEXPEN,3ML Discontinue d INJECT 15 UNITS SUBCUTANEOUSLY EVERY MORNING BEFORE MEAL AND INJECT 15 UNITS WITH LUNCH AND INJECT 15 UNITS WITH SUPPER AND INJECT 20 UNITS WITH SNACK FOR BLOOD SUGAR CONTROL. ADMINISTER 10 MINUTES BEFORE FOOD DIRECTED. REFRIGERATE UN-OPENED PENS. DISCARD CARTRIDGE 28 DAYS AFTER OPENING. Dec 22, 2019 [id number] Oct 12, 2019 ELEUTERIO LIVINGSTON [facility] [place] [facility] INSULIN,GLARGINE,HUMAN 100 UNIT/ML INJ,SOLOSTAR,3ML Active INJECT 50 UNITS SUBCUTANEOUSLY EVERY MORNING FOR BLOOD SUGAR CONTROL. ADMINISTER AT SAME TIME EACH DAY DIRECTED. DISCARD ANY OPEN CARTRIDGE AFTER 28 DAYS. Sep 23, 2020 [id number] Jan 28, 2020 ELEUTERIO LIVINGSTON [facility] [place] [facility] INSULIN,GLARGINE,HUMAN 100 UNIT/ML INJ,SOLOSTAR,3ML Disconti nued INJECT 45 UNITS SUBCUTANEOUSLY EVERY MORNING FOR BLOOD SUGAR CONTROL. ADMINISTER AT SAME TIME EACH DAY DIRECTED. DISCARD ANY OPEN CARTRIDGE AFTER 28 DAYS. Oct 23, 2019 [id number] Aug 30, 2019 ELEUTERIO LIVINGSTON [facility] [place] [facility] LACTOBACILLUS ACIDOPHILUS TAB,CHEWABLE Non-VA CHEW ONE TABLET BY MOUTH ONCE A DAY Non-VA Documented by: MEGAN HAWK nted at: [facility] LANCET,SOFTCLIX Active USE LANCET 5 TIME S A DAY FOR TESTING BLOOD GLUCOSE DIRECTED 500 Dec 28, 2020 [id number] March 19, 2020 ELEUTERIO LIVINGSTON [facility] [place] [facility] LANCET,SOFTCLIX Discontinued USE LANCET 5 TIME S A DAY FOR TESTING BLOOD GLUCOSE DIRECTED 500 Jan 11, 2020 [id number] Sep 29, 2019 [facility]ERIO [facility] MAGNESIUM OXIDE 400MG TAB Non-VA TAKE ONE TABLET BY MOUTH ONCE A DAY Non-VA Documented by: MEGAN HAWK nted at: [facility] [employer] DIV METOPROLOL SUCCINATE 200MG TAB,SA TAKE O NE-HALF TABLET BY MOUTH EVERY EVENING FOR HEART/BLOOD PRESSURE. SWALLOW WHOLE, DO NOT CRUSH OR CHEW (TABLETS MAY BE CUT IN HALF). 45 March 18, 2020 [id number] Dec 28, 2019 STANISLAV HAMMER [facility] NEEDLE 22G 1.5IN USE NEEDLE FOR EVERY MONTH 1 Nov 12, 2019 [id number] Feb 07, 2019 ADELAIDA CLIFFORD [facility] [place] [facility] NEEDLE,PEN 31G,5MM Discontinued USE NEEDLE SUBCUTANE OUSLY 5 TIMES A DAY - THIS IS A SINGLE USE NEEDLE AND SHOULD BE DISCARDED AFTER USE 500 Dec 21, 2019 [id number] Sep 28, 2019 BALTRUSAITIS,ELEUTERIO L [facility] [place] [facility] POTASSIUM CHLORIDE 10MEQ TAB,SA Active TAKE TWO TABLETS BY MOUTH TWO TIMES A DAY FOR POTASSIUM SUPPLEMENTATIONTAKE WITH FOOD 360 Dec 12, 2020 [id number] Mar 02, 2020 [facility] 15 POTASSIUM CHLORIDE 10MEQ TAB,SA Discontinued TAKE ONE TABLET BY MOUTH THREE TIMES A DAY WITH MEALS FOR POTASSIUM SUPPLEMENTATIONTAKE WITH FOOD 180 March 16, 2020 [id number] Nov 29, 2019 BALTRUSAITIS,ELEUTERIO L MCDONOUGH K S [facility] [place] [facility] POTASSIUM CHLORIDE 10MEQ TAB,SA Discontinued TAKE ONE TABLET BY MOUTH THREE TIMES A DAY WITH MEALS FOR POTASSIUM SUPPLEMENTATIONTAKE WITH FOOD 180 May 26, 2019 [id number] Jan 24, [address] [facility] [place] SYRINGE 2.5-3ML/NDL 25G 1IN Active USE 1 SYRINGE EVERY MONTH 3 Feb 21, 2021 [id number] March 20, 2020 [facility] SYRINGE 2.5-3ML/NDL 25G 1IN Discontinued USE 1 SYRINGE EVERY Thu 3 March 18, 2020 [id number] Dec 21, 2019 [facility] INIC TESTOSTERONE CYPIONATE 200MG/ML INJ,1ML (IN OIL) Active INJECT 200 MG (1 ML) INTRAMUSCULARLY EVERY MONTH FOR HORMONE REPLACEMENT 1 May 18, 2020 [id number] April 06, 2020 ADELAIDA CLIFFORD [facility] [place] [facility] TESTOSTERONE CYPIONATE 200MG/ML INJ,1ML (IN OIL) Discontinue d INJECT 200 MG (1 ML) INTRAMUSCULARLY EVERY MONTH FOR HORMONE REPLACEMENT March 25, 2020 [id number] Oct 25, 2019 ADELAIDA CLIFFORD [facility] [place] [facility] TESTOSTERONE CYPIONATE 200MG/ML INJ,1ML (IN OIL) Discontinue d INJECT 200 MG (1 ML) INTRAMUSCULARLY EVERY MONTH FOR HORMONE REPLACEMENT Nov 06, 2019 [id number] Sep 25, 2019 ADELAIDA CLIFFORD [facility] [place] [facility] TESTOSTERONE CYPIONATE 200MG/ML INJ,1ML (IN OIL) Discontinue d INJECT 200 MG (1 ML) INTRAMUSCULARLY EVERY MONTH FOR HORMONE REPLACEMENT 1 May 14, 2019 [id number] Apr 10, 2019 ADELAIDA CLIFFORD [facility] [place] [facility] TRAMADOL HCL 50MG TAB Active TAKE 1 TO 2 TABLET S BY MOUTH EVERY 6 HOURS NEEDED FOR PAIN 180 Jul 21, 2020 [id number] March 30, 2020 [facility] 15 TRAMADOL HCL 50MG TAB Discontinued TAKE 1 TO 2 TABLET S BY MOUTH EVERY 6 HOURS NEEDED FOR PAIN 180 Jun 06, 2020 [id number] Jan 11, 2020 [facility] 15 TRAMADOL HCL 50MG TAB Discontinued TAKE 1 TO 2 TABLET S BY MOUTH EVERY 6 HOURS NEEDED FOR PAIN 180 Jun 06, 2020 [id number] Dec 06, 2019 [facility] 15 TRAMADOL HCL 50MG TAB Discontinued TAKE 1 TO 2 TABLET S BY MOUTH EVERY 6 HOURS NEEDED FOR PAIN 180 Dec 14, 2019 [id number] Nov 15, 2019 DANTE VALVERDE [facility] [place] [facility] TRAMADOL HCL 50MG TAB Discontinued TAKE 1 TO 2 TABLET S BY MOUTH EVERY 6 HOURS NEEDED FOR PAIN 180 Jul 06, 2019 [id number] May 26, 2019 [facility] [place] [facility] TRIAMCINOLONE ACETONIDE 0.5% CREAM,TOP Active A PPLY SPARINGLY TO AFFECTED AREA ONCE A DAY NEEDED FOR RASH 45 Jul 15, 2020 [id number] April 01 0 [facility] [place] [facility] TRIAMCINOLONE ACETONIDE 0.5% CREAM,TOP Discontinued A PPLY SPARINGLY TO AFFECTED AREA ONCE A DAY NEEDED FOR RASH 45 Oct 12, 2019 [id number] Jul [facility] [place] [facility] Problems (Conditions): All historical [...] Source Basal cell carcinoma of scalp Active [id number] THOM CHAMBERS [facility] [place] [facility] Chronic back pain Active [id number] TERRIE CHAMBERS [facility] [place] Chronic kidney disease stage 3 Active [id number] THOM CHAMBERS [facility] [place] [facility] Constipation Active [id number] THOM CHAMBERS [facility] [place] [facility] Diabetes mellitus Active 58905731 THOM CHAMBERS [facility] [place] [facility] Diabetic neuropathy Active [id number] Neha CHAMBERS [facility] [place] [facility] Essential hypertension Active 31600547 THOM CHAMBERS [facility] [place] [facility] Hyperlipidemia Active 35441164 THOM CHAMBERS EA [facility] [place] [facility] Hypogonadism Active 18915017 THOM CHAMBERS [facility] [place] [facility] Sleep apnea Active [id number] THOM CHAMBERS RN [facility] [place] [facility] Radiology Reports: +/- 30 days of the encounter No Data Provided for This Section Pathology Reports: +/- 30 days of the encounter No Data Provided for This Section Encounter Notes: All associated encounter notes No Data Provided for This Section
--- OUTSIDE RECORDS SUMMARY | 2020-04-18 10:23 | XMS REPORT | Encounter Summary ---
Author [facility] Address [address] [place] [id number] Phone Unavailable Care Team Providers Care Refrigeration Service Inspector Name Role Phone REYES THOM PCP [...] REP ([facility]) MEDICARE ADVANTAGE MCR ([facility]) Nov 09, 2017 [id number] [phone] SIMI COVARRUBIAS PATIENT [facility] REP ([facility]) MEDICARE ADVANTAGE MCR ([facility]) Nov 09, 2017 [id number] [phone] SIMI COVARRUBIAS PATIENT [facility] ([facility]) MEDICARE ADVANTAGE MCR ([facility]) Nov 09, [id number] SIMI COVARRUBIAS PATIENT Selected Encounter This section includes the information on record at [place] for the Encounter. Date/Time Encounter Type Encounter Description Reason Provider Source Apr 25, 2019 03:15 PM Outpatient Encounter TELEPHONE PRIMARY CAR E ICD-10-CM E11.9 Type 2 diabetes mellitus without complications with Provider Comments: Diabetes mellitus (SCT [id number]) LYNDATRELEUTERIO ROJAS [facility] IHE Encounter Template Text not used by [facility] Assessments - Encounter Diagnoses This section includes the primary and secondary diag noses documented for the Encounter. Date/Time Primary/Secondary Diagnosis Diagnosis Name Provider Source Apr 25, 2019 03:15 PM PRIMARY Type 2 diabetes mellitus w ithout complications [place] [facility] Plan of Treatment: Future Appointments [...] Date/Time Appointment Type Appointment Facili ty Name May 04, 2019 09:00 AM AMBULATORY - NONE [facility] Jun 01, 2019 02:00 PM AMBULATORY - NONE [facility] Jun 09, 2019 03:30 PM AMBULATORY - NONE [facility] Jun 30, 2019 10:00 AM AMBULATORY - NONE [facility] Jul 07, 2019 11:45 AM AM[facility]ULATORY [facility] Jul 14, 2019 11:00 AM AMBULATORY - NONE [facility] Jul 28, 2019 10:00 AM AMBULATORY - NONE [facility] Aug 04, 2019 11:00 AM AMBULATORY - NONE [facility] Aug 16, 2019 01:00 PM AMBULATORY - NONE [facility] Aug 25, 2019 10:00 AM AMBULATORY - NONE [facility] Sep 15, 2019 12:00 PM [facility] Sep 22, 2019 10:00 AM AMBULATORY - NONE [facility] Sep 23, 2019 11:00 AM AMBULATORY - NONE [facility] Oct 17, 2019 03:00 PM AMBULATORY - NONE [facility] Oct 20, 2019 [...] adverse reactions to drug (disorder) Renal impairment [facility], VIS 15 METFORMIN Dec 01, 2017 Propensity to adverse reactions to drug (disorder) Renal impairment [facility] 15 Medications: VA dispensed (-15 [...] TIMES A DAY 400 Sep 12, 2020 [id number] Feb 29, 2020 BALTRUSADANNELEUTERIO Laron [facility] ACCU-CHEK ROSINA PLUS (GLUCOSE) TEST STRIP Discontinued USE 1 STRIP FOR TESTING FOUR TIMES A DAY 400 Sep 15, 2019 [id number] Jun 13, 2019 BALTRUSAIT IS,ELEUTERIO Larry [facility] ALCOHOL PREP PAD Discontinued USE 1 PAD ON SKIN FOUR TIMES A DAY 40 0 Apr 25, 2020 [id number] Nov 29, 2019 BALTRUSAELEUTERIO QUIGLEY [facility] ALCOHOL PREP PAD Discontinued USE 1 PAD ON SKIN FOUR TIMES A DAY 40 0 Sep 15, 2019 [id number] Apr 18, 2019 BALELEUTERIO KONG [facility] ALLOPURINOL 100MG TAB Active TAKE ONE TABLET BY MOUTH ONCE A DAY FOR GOUT. TAKE WITH PLENTY OF WATER 90 Sep 23, 2020 [id number] Mar 05, 2020 SILVINA CHAMBERS [facility] ALLOPURINOL 100MG TAB Discontinued TAKE ONE TABLET BY MOUTH ONCE A DAY FOR GOUT. TAKE WITH PLENTY OF WATER 90 Dec 30, 2019 [id number] Sep 17, 2019 THOM SHARPE [facility] ALOGLIPTIN 12.5MG TAB Active TAKE ONE TABLET BY MOUTH O NCE A DAY FOR DIABETES 90 Sep 12, 2020 [id number] Mar 04, 2020 BALELEUTERIO KONG ZAK [facility] ALOGLIPTIN 12.5MG TAB Discontinued TAKE ONE TABLET BY MOUTH ONCE A DAY FOR DIABETES 90 Dec 22, 2019 [id number] Jun 18, 2019 BALTRELEUTERIO ROJAS [facility] AMLODIPINE BESYLATE 10MG TAB Discontinued TAKE ONE TA BLET BY MOUTH EVERY MORNING FOR HEART/BLOOD PRESSURE 90 Jun 10, 2019 [id number] Feb 25, 2019 MONIKA HAMMER [facility] AMLODIPINE BESYLATE 10MG TAB TAKE ONE TA BLET BY MOUTH EVERY MORNING FOR HEART/BLOOD PRESSURE 90 Apr 12, 2020 [id number] Feb 10, 2020 SILVINA CHAM[facility]ERS [facility] ASPIRIN 81MG TAB,CHEWABLE Non-VA CHEW ONE TABLET BY MOUTH ONCE A DAY Non-VA Documented by: MEGAN HAWK nted at: [facility] ATORVASTATIN CA 20MG TAB Active TAKE ONE TABLET BY MOUTH ONCE A DAY FOR CHOLESTEROL. REPORT ANY UNEXPLAINED MUSCLE PAIN OR WEAKNESS TO YOUR DOCTOR. 90 Jan 02, 2021 [id number] March 24, 2020 [facility] ATORVASTATIN CA 40MG TAB Discontinued TAKE ONE-HALF T ABLET BY MOUTH AT BEDTIME FOR CHOLESTEROL. REPORT ANY UNEXPLAINED MUSCLE PAIN OR WEAKNESS TO YOUR DOCTOR. 45 Jul 15, 2020 [id number] Oct 14, 2019 THOM CHAMBERS [facility] ATORVASTATIN CA 40MG TAB Discontinued TAKE ONE-HALF T ABLET BY MOUTH AT BEDTIME FOR CHOLESTEROL. REPORT ANY UNEXPLAINED MUSCLE PAIN OR WEAKNESS TO YOUR DOCTOR. 45 Oct 12, 2019 [id number] Jul 16, 2019 REYESTHOM [facility] CALCIUM CARBONATE 500MG TAB,CHEWABLE Non-VA CHEW ONE TABLET BY MOUTH PRN Non-VA Documented by: THOM CHAMBERS nted at: [facility] CHLORTHALIDONE 25MG TAB Active TAKE ONE TABLET BY MOUTH ONCE A DAY 90 Jul 01, 2020 [id number] March 19, 2020 MONIKA HAMMER [facility] CHLORTHALIDONE 25MG TAB Discontinued TAKE ONE TABLET BY MOUTH ONCE A DAY 90 Jun 16, 2019 [id number] Apr 12, 2019 MONIKA HAMMER [facility] CHOLECALCIFEROL 1000UNT TAB Non-VA TAKE ONE TABLET BY MOUTH EVERY OTHER DAY Non-VA Docume nted by: MEGAN HAWKume nted at: [facility] CYANOCOBALAMIN 1000MCG/ML INJ Active INJECT 100 0 MCG (1 ML) INTRAMUSCULARLY EVERY MONTH FOR B12 SUPPLEMENTATION. 3 Nov 03, 2020 [id number] Apr 23, 2020 THOM CHAMBERS [facility] CYANOCOBALAMIN 1000MCG/ML INJ Discontinued INJECT 100 0 MCG (1 ML) INTRAMUSCULARLY EVERY MONTH FOR B12 SUPPLEMENTATION. 3 Nov 17 0 [id number] Aug 07, 2019 THOM CHAMBERS [facility] DIPHENHYDRAMINE HCL 25MG CAP Non-VA TAKE 1 CAPSULE BY MOUTH PRN Non-VA Documented by: THOM CHAMBERS nted at: [facility] DOCUSATE NA 100MG CAP No n-VA TAKE 2 CAPSULES BY MOUTH ONCE A DAY Non-VA Documented by: THOM CHAMBERS Docume nted at: [facility] FISH OIL 1000MG (500MG DHA/EPA) CAP,ORAL Non-VA TAKE 1 CAPSULE BY MOUTH ONCE A DAY Non-VA Documented by: MEGAN HAWK Docume nted at: [facility] GABAPENTIN 100MG CAP Active TAKE 1 CAPSULE BY M OUTH EVERY MORNING AND TAKE 1 CAPSULE BY MOUTH AT NOON AND TAKE 2 CAPSULES BY MOUTH AT BEDTIME 360 Jul 06, 2020 [id number] March 31, 2020 ELEUTERIO LIVINGSTON [facility] GLUCAGON 1MG/GABRIELLA INJ,EMERGENCY KIT INJEC T 1MG SUBCUTANEOUSLY NEEDED FOR SEVERE HYPOGLYCEMIA 1 Nov 30, 2019 [id number] Nov 03, 2019 REYES THOM [facility] INSULIN,ASPART,HUMAN 100U/ML,NOVOLOG,FLEXPEN,3ML Active: On Hold INJECT 20 UNITS SUBCUTANEOUSLY BEFORE BREAKFAST AND INJECT 20 UNITS BEFORE LUNCH AND INJECT 26 UNITS BEFORE SUPPER AND INJECT 24 UNITS SNACK FOR BLOOD SUGAR CONTROL. ADMINISTER 10 MINUTES BEFORE FOOD DIRECTED. REFRIGERATE UN-OPENED PENS. DISCARD CARTRIDGE 28 DAYS AFTER OPENING. PLUS CORRECTION Mar 01, 2021 [id number] ELEUTERIO LIVINGSTON [facility] INSULIN,ASPART,HUMAN 100U/ML,NOVOLOG,FLEXPEN,3ML Discontinue d INJECT 20 UNITS SUBCUTANEOUSLY BEFORE BREAKFAST AND INJECT 20 UNITS BEFORE LUNCH AND INJECT 24 UNITS BEFORE SUPPER AND INJECT 24 UNITS SNACK FOR BLOOD SUGAR CONTROL. ADMINISTER 10 MINUTES BEFORE FOOD DIRECTED. REFRIGERATE UN-OPENED PENS. DISCARD CARTRIDGE 28 DAYS AFTER OPENING. PLUS CORRECTION Jan 26, 2021 [id number] Jan 28, 2020 ELEUTERIO LIVINGSTON [facility] AFTER OPENING. PLUS CORRECTION Nov 16, 2020 [id number] Nov 16 ELEUTERIO LIVINGSTON [facility] INSULIN,ASPART,HUMAN 100U/ML,NOVOLOG,FLEXPEN,3ML Discontinue d INJECT 15 UNITS SUBCUTANEOUSLY EVERY MORNING BEFORE MEAL AND INJECT 15 UNITS WITH LUNCH AND INJECT 15 UNITS WITH SUPPER AND INJECT 20 UNITS WITH SNACK FOR BLOOD SUGAR CONTROL. ADMINISTER 10 MINUTES BEFORE FOOD DIRECTED. REFRIGERATE UN-OPENED PENS. DISCARD CARTRIDGE 28 DAYS AFTER OPENING. Dec 22, 2019 [id number] Oct 12, 2019 ELEUTERIO LIVINGSTON [facility] INSULIN,GLARGINE,HUMAN 100 UNIT/ML INJ,SOLOSTAR,3ML Active INJECT 50 UNITS SUBCUTANEOUSLY EVERY MORNING FOR BLOOD SUGAR CONTROL. ADMINISTER AT SAME TIME EACH DAY DIRECTED. DISCARD ANY OPEN CARTRIDGE AFTER 28 DAYS. Sep 23, 2020 [id number] Jan 28, 2020 ELEUTERIO LIVINGSTON [facility] INSULIN,GLARGINE,HUMAN 100 UNIT/ML INJ,SOLOSTAR,3ML Disconti nued INJECT 45 UNITS SUBCUTANEOUSLY EVERY MORNING FOR BLOOD SUGAR CONTROL. ADMINISTER AT SAME TIME EACH DAY DIRECTED. DISCARD ANY OPEN CARTRIDGE AFTER 28 DAYS. Oct 23, 2019 [id number] Aug 30, 2019 ELEUTERIO LIVINGSTON [facility] LACTOBACILLUS ACIDOPHILUS TAB,CHEWABLE Non-VA CHEW ONE TABLET BY MOUTH ONCE A DAY Non-VA Documented by: MEGAN HAWK nted at: [facility] LANCET,SOFTCLIX Active USE LANCET 5 TIME S A DAY FOR TESTING BLOOD GLUCOSE DIRECTED 500 Dec 28, 2020 [id number] March 19, 2020 ELEUTERIO LIVINGSTON [facility] LANCET,SOFTCLIX Discontinued USE LANCET 5 TIME S A DAY FOR TESTING BLOOD GLUCOSE DIRECTED 500 Jan 11, 2020 [id number] Sep 29, 2019 ELEUTERIO PATEL [facility] MAGNESIUM OXIDE 400MG TAB Non-VA TAKE ONE TABLET BY MOUTH ONCE A DAY Non-VA Documented by: MEGAN HAWK nted at: [facility] METOPROLOL SUCCINATE 200MG TAB,SA TAKE O NE-HALF TABLET BY MOUTH EVERY EVENING FOR HEART/BLOOD PRESSURE. SWALLOW WHOLE, DO NOT CRUSH OR CHEW (TABLETS MAY BE CUT IN HALF). 45 March 18, 2020 [id number] Dec 28, 2019 STANISLAV HAMMER [facility] NEEDLE 22G 1.5IN USE NEEDLE FOR EVERY MONTH 1 Nov 12, 2019 [id number] Feb 07, 2019 ADELAIDA CLIFFORD [facility] NEEDLE,PEN 31G,5MM Discontinued USE NEEDLE SUBCUTANE OUSLY 5 TIMES A DAY - THIS IS A SINGLE USE NEEDLE AND SHOULD BE DISCARDED AFTER USE 500 Dec 21, 2019 [id number] Sep 28, 2019 BALTRUSAITIS,ELEUTERIO Larry [facility] POTASSIUM CHLORIDE 10MEQ TAB,SA Active TAKE TWO TABLETS BY MOUTH TWO TIMES A DAY FOR POTASSIUM SUPPLEMENTATIONTAKE WITH FOOD 360 Dec 12, 2020 [id number] Mar 02, 2020 [facility], VISN 15 POTASSIUM CHLORIDE 10MEQ TAB,SA Discontinued TAKE ONE TABLET BY MOUTH THREE TIMES A DAY WITH MEALS FOR POTASSIUM SUPPLEMENTATIONTAKE WITH FOOD 180 March 16, 2020 [id number] Nov 29, 2019 BALTRUSAITIS,ELEUTERIO L [facility] POTASSIUM CHLORIDE 10MEQ TAB,SA Discontinued TAKE ONE TABLET BY MOUTH THREE TIMES A DAY WITH MEALS FOR POTASSIUM SUPPLEMENTATIONTAKE WITH FOOD 180 May 26, 2019 [id number] Jan 24, 2019 [facility] SYRINGE 2.5-3ML/NDL 25G 1IN Active USE 1 SYRINGE EVERY MONTH 3 Feb 21, 2021 [id number] March 20, 2020 [facility] SYRINGE 2.5-3ML/NDL 25G 1IN Discontinued USE 1 SYRINGE EVERY Thu 3 March 18, 2020 [id number] Dec 21, 2019 [facility] TESTOSTERONE CYPIONATE 200MG/ML INJ,1ML (IN OIL) Active INJECT 200 MG (1 ML) INTRAMUSCULARLY EVERY MONTH FOR HORMONE REPLACEMENT 1 May 18, 2020 [id number] April 06, 2020 ADELAIDA CLIFFORD [facility] TESTOSTERONE CYPIONATE 200MG/ML INJ,1ML (IN OIL) Discontinue d INJECT 200 MG (1 ML) INTRAMUSCULARLY EVERY MONTH FOR HORMONE REPLACEMENT March 25, 2020 [id number] Oct 25, 2019 ADELAIDA CLIFFORD [facility] TESTOSTERONE CYPIONATE 200MG/ML INJ,1ML (IN OIL) Discontinue d INJECT 200 MG (1 ML) INTRAMUSCULARLY EVERY MONTH FOR HORMONE REPLACEMENT 1 Nov 06, 2019 [id number] Sep 25, 2019 DARRINADELAIDA [facility] TESTOSTERONE CYPIONATE 200MG/ML INJ,1ML (IN OIL) Discontinue d INJECT 200 MG (1 ML) INTRAMUSCULARLY EVERY MONTH FOR HORMONE REPLACEMENT 1 May 14, 2019 [id number] Apr 10, 2019 ADELAIDA CLIFFORD [facility] TRAMADOL HCL 50MG TAB Active TAKE 1 TO 2 TABLET S BY MOUTH EVERY 6 HOURS NEEDED FOR PAIN 180 Jul 21, 2020 [id number] March 30, 2020 [facility] 15 TRAMADOL HCL 50MG TAB Discontinued TAKE 1 TO 2 TABLET S BY MOUTH EVERY 6 HOURS NEEDED FOR PAIN 180 Jun 06, 2020 [id number] Jan 11, 2020 [facility], [facility] 15 TRAMADOL HCL 50MG TAB Discontinued TAKE 1 TO 2 TABLET S BY MOUTH EVERY 6 HOURS NEEDED FOR PAIN 180 Jun 06, 2020 [id number] Dec 06, 2019 [facility], [facility] 15 TRAMADOL HCL 50MG TAB Discontinued TAKE 1 TO 2 TABLET S BY MOUTH EVERY 6 HOURS NEEDED FOR PAIN 180 Dec 14, 2019 [id number] Nov 15, 2019 DANTE VALVERDE [facility] TRAMADOL HCL 50MG TAB Discontinued TAKE 1 TO 2 TABLET S BY MOUTH EVERY 6 HOURS NEEDED FOR PAIN 180 Jul 06, 2019 [id number] May 26, 2019 NELLA GROVE [facility] TRIAMCINOLONE ACETONIDE 0.5% CREAM,TOP Active A PPLY SPARINGLY TO AFFECTED AREA ONCE A DAY NEEDED FOR RASH 45 Jul 15, 2020 [id number] April 01 0 THOM CHAMBERS [facility] TRIAMCINOLONE ACETONIDE 0.5% CREAM,TOP Discontinued A PPLY SPARINGLY TO AFFECTED AREA ONCE A DAY NEEDED FOR RASH 45 Oct 12, 2019 [id number] Jul THOM CHAMBERS [facility] [...] Source Basal cell carcinoma of scalp Active [id number] REYESTHOMShellie MELLO [facility] Chronic back pain Active [id number] TERRIE CHAMBERS Shellie [facility] Chronic kidney disease stage 3 Active [id number] REYESTHOM [facility] Constipation Active [id number] REYESTHOMShellie MCPHERSON DEEJAY [facility] Diabetes mellitus Active [id number] REYESTHOM [facility] Diabetic neuropathy Active [id number] Neha CHAMBERS SURYA [facility] Essential hypertension Active [id number] REYES THOM [facility] Hyperlipidemia Active [id number] THOM CHAMBERS EA ROSS [facility] Hypogonadism Active [id number] REYES,THOM MCPHERSON DEEJAY [facility] Sleep apnea Active [id number] THOM CHAMBERS [facility] [facility] Radiology Reports: +/- 30 days of the encounter No Data Provided for This Section Pathology Reports: +/- 30 days of the encounter No Data Provided for This Section Encounter Notes: All associated encounter notes This section contains the clinical notes associated to the Encounter. Date/Time Encounter Note(s) Provider Source Apr 25, 2019 03:20 PM PHARMACY NOTE: LOCAL TITLE: EK-PHARMACY PRIMARY CARE STANDARD TITLE: PHARMACY NOTE DATE OF NOTE: APR 25, 2019@15:20 ENTRY DATE: APR 25, 2019@15:20:32 AUTHOR: REGGIE LIVINGSTON EXP COSIGNER: URGENCY: STATUS: COMPLETED HALDSIMI is a 72 yo MALE contacted via telephone for CDM clinic for DM f/u. Team: TOJAYE WELLER 1 *WH*; PCP: THOM CHAMBERS S: reports doing well, in NAD. Correctly confirms DM regimen w/ good adherence. Admits to eating more fruit again and he knows it has caused his BG to increase again. HPI: At previous appointment [place] had showed progress w/ his BG by reducing his fruit intake. [place] notes also being managed by Dr. Grove, non-VA provider, recently approved thru [employer]. [place] instructed to avoid co-management, thus plans to continue DM services with this financial underwriter and other conditions will be deferred to Dr. Grove. DR. QUINTERO PHONE [phone]. Lifestyle: Physical Activity: walking ~10 miles/day (at [...] grapes, watermelon), cup-cake, cheese pop- corn; sandwich 03/16/19: reports he started eating 1/4 serving of fruit w/ each meal instead of a full serving at HS Medication Adherence (self-report): good 1. DIABETES Current Regimen: -insulin glargine 45 units QAM -insulin aspart 15 units TID AC meals + 20 units w/ snack -alogliptin 12.5mg ASA: yes [place]/ARB: no (CKD) Statin: moderate intensity Previously tried meds: metformin - fiber analyst recommends against d/t hx of BRIGIDO with SCr 1.7 liraglutide - N/V Diabetes Complications: Retinopathy: last eye exam 09/16/2017; (-) Gastropathy: denies bloating after meals, early satiety, GI complaints Nephropathy: microalbuminuria (+) 10/29/2017; Peripheral neuropathy: denies numbness, burning, tingling in hands/feet Foot Exam: 10/23/2017 (-)Abnormal BG Readings: Self-reports BG are a little better. Didn't have log available for full review FBG 90-120's w/ occ 200's AC lunch ~100-130's AC supper ~150's HS >300's reports BG have come up due to snackin more on fruit Hypoglycemia Episodes: denies Blood pressure: 129-140/60-70's most [...] NO -CKD (renal doctor will not allow) [place] self-reports BG remain mostly well-controlled during the day due to physical activity but significantly increase at bedtime due to snacks which mostly consist of fruit. Discussed importance of reducing fruit intake. Discussed alternative snacks that have 15GM or less of CHO (ex: Outshine Frozen fruit bars 1 bar = 15GM CHO). Based on this information will, --Continue insulin glargine 45 units --Continue insulin aspart 15 units TID AC meals --continue insulin aspart 20 units w/ snack --Continue aloglipitin 12.5mg daily --Pt to replace fruit w/ low CHO option (<= 15GM CHO) 2. HTN Goal <150/90 met: yes -managed by non-VA 3. Refills: alcohol pads 4. Return to TO-PHARM PHONE PACT 5 6 olga solis Learner: Patient Readiness to Learn: Accepting Barriers to Learning Noted: No Barriers Preferred Learning Style: Lecture, Printed Material Preferred language for discussing health care: Tunisian Time spent with pt: 15min PBM PharmD Pharmacotherapy Rem V10: PHARMACIST INTERVENTIONS: TYPE 2 DIABETES MELLITUS Nonpharmacologic intervention chris /noa/ ELEUTERIO LIVINGSTON Clinical Farm Management Adviser Signed: 04/25/2019 16:02 ELEUTERIO LIVINGSTON [facility]
[2020-04-18 10:24] LABS: ALBUMIN 4.4 GM/DL (3.2-4.5); BILIRUBIN,TOTAL 0.5 MG/DL (0.1-1.0); CALCIUM 9.7 MG/DL (8.5-10.1); CREATININE SERUM 1.44 MG/DL (0.60-1.30); POTASSIUM 3.9 MMOL/L (3.6-5.0); TOTAL PROTEIN 7.5 GM/DL (6.4-8.2)
--- OUTSIDE RECORDS SUMMARY | 2020-04-18 10:25 | XMS REPORT | Encounter Summary ---
Author Author Department of [facility] SIMI palacio Organization Department of [facility] Address [address] [place] [phone] Phone Unavailable Care Team Providers Care Environmental Issues Instructor Name Role Phone REYES THOM PCP Unavailable [...] to Policy [place] [employer] [facility] [employer] [facility] ([facility]) MEDICARE ADVANTAGE MCR ([facility]) Nov 09, 2017 [id number] [phone] SIMI COVARRUBIAS PATIENT [employer] [facility] (WNR) MEDICARE ADVANTAGE MCR ([facility]) Nov 09, 2017 [id number] [phone] SIMI COVARRUBIAS PATIENT [employer] MCR (WNR) MEDICARE ADVANTAGE MCR ([facility]) Nov 09, [id number] SIMI COVARRUBIAS PATIENT Selected Encounter This section includes the information on record at [place] for the Encounter. Date/Time Encounter Type Encounter Description Reason Provider Source Apr 21, 2019 10:00 AM OFFICE/OUTPATIENT VISIT EST PRIMARY CARE/M EDICINE ICD-10-CM H61.23 Impacted cerumen, bilateral with Provider Comments: Impacted Cerumen, Bilateral BARBARA DUNCAN [facility] IHE Encounter Template Text not used by VA Assessments - Encounter Diagnoses This section includes the primary and secondary diag noses documented for the Encounter. Date/Time Primary/Secondary Diagnosis Diagnosis Name Provider Source Apr 21, 2019 11:12 AM PRIMARY Impacted cerumen, bilateral CAMILO ,REMY R [facility] Plan of Treatment: Future Appointments (+ 6 months) and Future Tests (+/- 45 day s) The Plan of Treatment section includes future care activities for the patient fr om all [place] treatment facilities. This section includes future appointments and fu ture orders which are active, pending or scheduled. Future Appointments This section includes appointments that were scheduled t o occur 6 months from the date of the Encounter, up to a maximum of 20 appointme nts. The data comes from all [place] treatment facilities. Appointment Date/Time Appointment Type Appointment Facili ty Name Apr 25, 2019 03:15 PM AMBULATORY - NONE [facility] [place] [facility] May 04, 2019 09:00 AM AMBULATORY - NONE [facility] Jun 01, 2019 02:00 PM AMBULATORY - NONE [facility] Jun 09, 2019 03:30 PM AMBULATORY - NONE [facility] [place] [facility] Jun 30, 2019 10:00 AM AMBULATORY - NONE [facility] Jul 07, 2019 11:45 AM AMBULATORY - MEDICINE [facility] Jul 14, 2019 11:00 AM [facility] [place] [facility] Jul 28, 2019 10:00 AM AMBULATORY - NONE [facility] Aug 04, 2019 11:00 AM [facility] Aug 16, 2019 01:00 PM [facility] - NONE [facility] [place] [facility] Aug 25, 2019 10:00 AM AMBULATORY - NONE [facility] Sep 15, 2019 12:00 PM AMBULATORY - MEDICINE [facility] Sep 22, 2019 10:00 AM AMBULATORY - NONE [facility] Sep 23, 2019 11:00 AM [facility] NONE [facility] [place] [facility] Oct 17, 2019 03:00 PM AM[facility]ORY - NONE [facility] [place] [facility] Oct 20, 2019 10:00 AM AMBULATORY - NONE [facility] Surgical Procedures: All associated [...] Result - Unit Interpretation Reference Range Comment March 24, 2019 11:08 AM [facility] Ortho Neuro Management HEMOGLOBIN A1C Specimen Type: BLOOD No comment entered. HEMOGLOBIN A1C 8.1 % H 4.0-6.0 March 24, 2019 11:08 AM [facility] Ortho Neuro Management CBC & DIFF Specimen Type: BLOOD No comment entered. WBC 11.27 K/cmm H 3.60-11.20 RBC 6.02 M/ul H 4.1-5.7 HGB 16.7 g/dl 13.1-16.8 HCT 50.1 % H 38.2-48.4 MCV 83.2 fl 80.1-98.5 MCH 27.7 pg 27.0-34.0 MCHC 33.3 g/dl 33.0-36.0 PLATELET COUNT 200 K/cmm 150-400 MPV 11.2 fl 7.5-11.2 RDW 16.7 % H 11.8-15.1 LYMPHOCYTES, AUTO% 11.2 % NEUTROPHILS, AUTO % 77.8 % MONOCYTES, AUTO% 7.6 % MONOCYTES, ABSOLUTE 0.86 K/cmm H 0.19-0.80 NEUTROPHILS, ABSOLUTE 8.76 K/cmm H 2.10-8. 00 EOSINOPHILS, ABSOLUTE 0.23 K/cmm 0.00-0. 60 BASOPHILS, ABSOLUTE 0.07 K/cmm 0.00-0.20 EOSINOPHILS, AUTO% 2.0 % BASOPHILS, AUTO% 0.6 % LYMPHOCYTES, ABSOLUTE 1.26 K/cmm 0.77-4. 50 IMMATURE GRANS, ABSOLUTE 0.09 K/cmm H 0.00 -0.05 IMMATURE GRANS, AUTO % 0.8 % March 24, 2019 11:08 AM [facility] Ortho Neuro Management COMPREHENSIVE HI TABOLIC PANEL Specimen Type: PLASMA No comment entered. *CREATININE 1.27 mg/dL 0.7-1.3 UREA NITROGEN mg/dL 17 mg/dL 9-25 GLUCOSE 122 mg/dL H 72-99 SODIUM 142 mEq/L 136-145 POTASSIUM 3.6 mEq/L 3.5-5.0 CALCIUM (mg/dL) 9.5 mg/dL 8.4-10.4 PROTEIN,TOTAL 6.6 g/dL 6.0-8.6 ALBUMIN 4.2 g/dl 3.4-5.0 TOTAL BILIRUBIN 0.60 mg/dL 0.2-1.2 ASPARTATE TRANSAMINASE 22 U/L 5-34 ALANINE AMINOTRANSFERASE 20 U/L 8-40 CHLORIDE 102 mEq/L 98-107 CO2 31 mEq/L 22-31 ALKALINE PHOSPHATASE 104 U/L 40-150 EGFR 55.6 March 24, 2019 11:08 AM [facility] [place] [facility] MICROALBUMIN (CO ,EK) Specimen Type: URINE No comment entered. *MICROALBUMIN(CONC) 38.3 mg/dL - *MICROALBUMIN(SPOT) 208.6 mcg/mg cr HH 0-29 *CREATININE mg/dL 183.6 mg/dl Not Avail. March 24, 2019 11:08 AM [facility] [place] [facility] LIPID PROFIL E(HDL,TRIG,CHOL,LDL) Sp ecimen Type: PLASMA No comment entered. CHOLESTEROL 151 mg/dL 0-200 TRIGS 109 mg/dL 0-150 HDL-CHOLESTEROL 44 mg/dL >40 LDL (CALC) 85.2 mg/dL 0-99.9 Vital Signs: All taken on the encounter date This section contains inpatient and outpatient Vital Signs collected on the date of the Encounter. Date/Time Temperature Pulse Blood Pressure Respiratory Rate SP02 Pa in Height Weight Body Mass Index Source Apr 21, 2019 11:12 AM 124/68 mm[Hg] [facility] Apr 21, 2019 11:11 AM 124/68 mm[Hg] [facility] Apr 21, 2019 10:29 AM 142/80 mm[Hg] [facility] Apr 21, 2019 09:55 AM 98.3 F 85 /min 161/84 mm[Hg] 20 /min 93 % 7 176.8 lb 30 [facility] Immunizations: All administered on the encounter date No Data Provided for This Section Social History: Smoking Status (Most current) and Tobacco Use (All prior to enco unter date) This section includes the most current, and the historical, smoking and tobacco- related health factors from the [facility] where the Encounter took place. Current Smoking Status This section includes the most current smoking, or tobacco -related health factor, from the [place] facility where the Encounter took place. Date/Time Current Smoking Status Comment Facility Nov 03, 2018 07:59 AM VA-TOBACCO QUIT 15 YRS OR MORE [facility] Tobacco Use History This section includes a history of the smoking, or tobacco -related health factors, that were collected on or before the date of the Encoun ter. The data comes from the [place] facility where the Encounter took place. Date/Time Smoking Status/Tobacco Use Comment Madeline akinsy Nov 03, 2018 07:59 AM VA-TOBACCO QUIT 15 YRS OR MORE [facility] Oct 23, 2017 07:35 AM TOBACCO LIFETIME NON-USER [facility] Advance Directives: All historical and current No Data Provided for This Section Allergies and Adverse Reactions (ADRs): All historical and current Section Date Range: From patient's date of to the date document was create d. This section includes Allergies and Adverse Reactions (ADR s) on record with VA for the patient. The data comes from a ll [place] treatment facilities. It does not list Allergies/ADRs that were removed or entered in error. Some allergies/ADRs may be reported in t he Immunization section. Allergen Event Date Event Type Reaction(s) Severity Source LISINOPRIL Dec 01, 2017 Propensity to adverse reactions to drug (disorder) Renal impairment [facility] 15 METFORMIN Dec 01, 2017 Propensity to adverse reactions to drug (disorder) Renal impairment [facility] 15 Medications: VA dispensed (-15 months) and Non-VA Documented (Obtained Outside V A) Section Date Range: 1) prescriptions processed by a VA pharmacy in the last 15 m [facility], and 2) all medications recorded in the [place] medical record as "non-VA medic ations". Pharmacy terms refer to [place] pharmacy's work on prescriptions. VA patient s are advised to take their medications as instructed by their health care team. The data comes from all [place] treatment facilities. Glossary of Pharmacy Terms:Active = A prescription that can be filled at the local [place] pharmacy.Active: On Hold = An active prescription that will not be filled until pharmacy resolves the issue.Active: Susp = An active prescription that is not scheduled to be filled yet.Clinic Order = A medication received during a visit to a [place] clinic or emergency department (currently not available).Discontinued [...] may be a prescription from either the [place] or other providers that was filled outside the [place]. Or, it may be an over the [...] TIMES A DAY 400 Sep 12, 2020 [id number] Feb 29, 2020 REGGIE LIVINGSTON [facility] ACCU-CHEK ROSINA PLUS (GLUCOSE) TEST STRIP Discontinued USE 1 STRIP FOR TESTING FOUR TIMES A DAY 400 Sep 15, 2019 [id number] Jun 13, 2019 ELEUTERIO MAURO [facility] ALCOHOL PREP PAD Discontinued USE 1 PAD ON SKIN FOUR TIMES A DAY 40 0 Apr 25, 2020 [id number] Nov 29, 2019 ELEUTERIO LIVINGSTON [facility] [place] [facility] ALCOHOL PREP PAD Discontinued USE 1 PAD ON SKIN FOUR TIMES A DAY 40 0 Sep 15, 2019 [id number] Apr 18, 2019 ELEUTERIO LIVINGSTON [facility] ALLOPURINOL 100MG TAB Active TAKE ONE TABLET BY MOUTH ONCE A DAY FOR GOUT. TAKE WITH PLENTY OF WATER 90 Sep 23, 2020 [id number] Mar 05, 2020 SILVINA CHAMBERS [facility] [place] [facility] ALLOPURINOL 100MG TAB Discontinued TAKE ONE TABLET BY MOUTH ONCE A DAY FOR GOUT. TAKE WITH PLENTY OF WATER 90 Dec 30, 2019 [id number] Sep 17, 2019 THOM SOLIS [facility] [place] [facility] ALOGLIPTIN 12.5MG TAB Active TAKE ONE TABLET BY MOUTH O NCE A DAY FOR DIABETES 90 Sep 12, 2020 [id number] Mar 04, 2020 ELEUTERIO LIVINGSTON [facility] [place] [facility] ALOGLIPTIN 12.5MG TAB Discontinued TAKE ONE TABLET BY MOUTH ONCE A DAY FOR DIABETES 90 Dec 22, 2019 [id number] Jun 18, 2019 ELEUTERIO LIVINGSTON [facility] [place] [facility] AMLODIPINE BESYLATE 10MG TAB Discontinued TAKE ONE TA BLET BY MOUTH EVERY MORNING FOR HEART/BLOOD PRESSURE 90 Jun 10, 2019 [id number] Feb 25, 2019 MONIKA RIVERA [facility] [place] [facility] AMLODIPINE BESYLATE 10MG TAB TAKE ONE TA BLET BY MOUTH EVERY MORNING FOR HEART/BLOOD PRESSURE 90 Apr 12, 2020 [id number] Feb 10, 2020 SILVINA CHAMBERS [facility] ASPIRIN 81MG TAB,CHEWABLE Non-VA CHEW ONE TABLET BY MOUTH ONCE A DAY Non-VA Documented by: MEGAN HAWK nted at: [facility] ATORVASTATIN CA 20MG TAB Active TAKE ONE TABLET BY MOUTH ONCE A DAY FOR CHOLESTEROL. REPORT ANY UNEXPLAINED MUSCLE PAIN OR WEAKNESS TO YOUR DOCTOR. 90 Jan 02, 2021 [id number] March 24, 2020 NELLA GROVE [facility] ATORVASTATIN CA 40MG TAB Discontinued TAKE ONE-HALF T ABLET BY MOUTH AT BEDTIME FOR CHOLESTEROL. REPORT ANY UNEXPLAINED MUSCLE PAIN OR WEAKNESS TO YOUR DOCTOR. 45 Jul 15, 2020 [id number] Oct 14, 2019 THOM CHAMBERS [facility] [place] [facility] ATORVASTATIN CA 40MG TAB Discontinued TAKE ONE-HALF T ABLET BY MOUTH AT BEDTIME FOR CHOLESTEROL. REPORT ANY UNEXPLAINED MUSCLE PAIN OR WEAKNESS TO YOUR DOCTOR. 45 Oct 12, 2019 [id number] Jul 16, 2019 THOM CHAMBERS [facility] [place] [facility] CALCIUM CARBONATE 500MG TAB,CHEWABLE Non-VA CHEW ONE TABLET BY MOUTH PRN Non-VA Documented by: THOM CHAMBERS nted at: [facility] CHLORTHALIDONE 25MG TAB Active TAKE ONE TABLET BY MOUTH ONCE A DAY 90 Jul 01, 2020 [id number] March 19, 2020 MONIKA HAMMER [facility] [place] [facility] CHLORTHALIDONE 25MG TAB Discontinued TAKE ONE TABLET BY MOUTH ONCE A DAY 90 Jun 16, 2019 [id number] Apr 12, 2019 MONIKA HAMMER [facility] [place] [facility] CHOLECALCIFEROL 1000UNT TAB Non-VA TAKE ONE TABLET BY MOUTH EVERY OTHER DAY Non-VA Docume nted by: MEGAN HAWK nted at: [facility] [place] [facility] CYANOCOBALAMIN 1000MCG/ML INJ Active INJECT 100 0 MCG (1 ML) INTRAMUSCULARLY EVERY MONTH FOR B12 SUPPLEMENTATION. 3 Nov 03, 2020 [id number] Apr 23, 2020 THOM CHAMBERS [facility] [place] [facility] CYANOCOBALAMIN 1000MCG/ML INJ Discontinued INJECT 100 0 MCG (1 ML) INTRAMUSCULARLY EVERY MONTH FOR B12 SUPPLEMENTATION. 3 Nov 17 0 [id number] Aug 07, 2019 [facility] [place] [facility] DIPHENHYDRAMINE HCL 25MG CAP Non-VA TAKE 1 CAPSULE BY MOUTH PRN Non-VA Documented by: THOM CHAMBERS Docume nted at: [facility] DOCUSATE NA 100MG CAP No n-VA TAKE 2 CAPSULES BY MOUTH ONCE A DAY Non-VA Documented by: THOM CHAMBERS Docume nted at: [facility] FISH OIL 1000MG (500MG DHA/EPA) CAP,ORAL Non-VA TAKE 1 CAPSULE BY MOUTH ONCE A DAY Non-VA Documented by: MEGAN HAWK Docume nted at: [facility] GABAPENTIN 100MG CAP Active TAKE 1 CAPSULE BY M OUTH EVERY MORNING AND TAKE 1 CAPSULE BY MOUTH AT NOON AND TAKE 2 CAPSULES BY MOUTH AT BEDTIME 360 Jul 06, 2020 [id number] March 31, 2020 YARAELEUTERIO [facility] [place] [facility] GLUCAGON 1MG/GABRIELLA INJ,EMERGENCY KIT INJEC T 1MG SUBCUTANEOUSLY NEEDED FOR SEVERE HYPOGLYCEMIA 1 Nov 30, 2019 [id number] Nov 03, 2019 TERRIE CHAMBERSA [facility] [place] [facility] INSULIN,ASPART,HUMAN 100U/ML,NOVOLOG,FLEXPEN,3ML Active: On Hold INJECT 20 UNITS SUBCUTANEOUSLY BEFORE BREAKFAST AND INJECT 20 UNITS BEFORE LUNCH AND INJECT 26 UNITS BEFORE SUPPER AND INJECT 24 UNITS SNACK FOR BLOOD SUGAR CONTROL. ADMINISTER 10 MINUTES BEFORE FOOD DIRECTED. REFRIGERATE UN-OPENED PENS. DISCARD CARTRIDGE 28 DAYS AFTER OPENING. PLUS CORRECTION 30 Mar 01, 2021 [id number] YARAELEUTERIO Laron [facility] [place] [facility] INSULIN,ASPART,HUMAN 100U/ML,NOVOLOG,FLEXPEN,3ML Discontinue d INJECT 20 UNITS SUBCUTANEOUSLY BEFORE BREAKFAST AND INJECT 20 UNITS BEFORE LUNCH AND INJECT 24 UNITS BEFORE SUPPER AND INJECT 24 UNITS SNACK FOR BLOOD SUGAR CONTROL. ADMINISTER 10 MINUTES BEFORE FOOD DIRECTED. REFRIGERATE UN-OPENED PENS. DISCARD CARTRIDGE 28 DAYS AFTER OPENING. PLUS CORRECTION 30 Jan 26, 2021 [id number] Jan 28, 2020 YARAELEUTERIO [facility] [place] [facility] INSULIN,ASPART,HUMAN 100U/ML,NOVOLOG,FLEXPEN,3ML Discontinue d INJECT 20 UNITS SUBCUTANEOUSLY BEFORE MEALS FOR BLOOD SUGAR CONTROL. ADMINISTER 10 MINUTES BEFORE FOOD DIRECTED. REFRIGERATE UN-OPENED PENS. DISCARD CARTRIDGE 28 DAYS AFTER OPENING. PLUS CORRECTION FOR BLOOD SUGAR CONTROL. ADMINISTER 10 MINUTES BEFORE FOOD DIRECTED. REFRIGERATE UN-OPENED PENS. DISCARD CARTRIDGE 28 DAYS AFTER OPENING. PLUS CORRECTION 30 Nov 16, 2020 [id number] Nov 16 ELEUTERIO LIVINGSTON [facility] [place] [facility] INSULIN,ASPART,HUMAN 100U/ML,NOVOLOG,FLEXPEN,3ML Discontinue d INJECT 15 UNITS SUBCUTANEOUSLY EVERY MORNING BEFORE MEAL AND INJECT 15 UNITS WITH LUNCH AND INJECT 15 UNITS WITH SUPPER AND INJECT 20 UNITS WITH SNACK FOR BLOOD SUGAR CONTROL. ADMINISTER 10 MINUTES BEFORE FOOD DIRECTED. REFRIGERATE UN-OPENED PENS. DISCARD CARTRIDGE 28 DAYS AFTER OPENING. Dec 22, 2019 5 [id number] Oct 12, 2019 ELEUTERIO LIVINGSTON [facility] [place] [facility] INSULIN,GLARGINE,HUMAN 100 UNIT/ML INJ,SOLOSTAR,3ML Active INJECT 50 UNITS SUBCUTANEOUSLY EVERY MORNING FOR BLOOD SUGAR CONTROL. ADMINISTER AT SAME TIME EACH DAY DIRECTED. DISCARD ANY OPEN CARTRIDGE AFTER 28 DAYS. Sep 23, 2020 [id number] Jan 28, 2020 ELEUTERIO LIVINGSTON [facility] INSULIN,GLARGINE,HUMAN 100 UNIT/ML INJ,SOLOSTAR,3ML Disconti nued INJECT 45 UNITS SUBCUTANEOUSLY EVERY MORNING FOR BLOOD SUGAR CONTROL. ADMINISTER AT SAME TIME EACH DAY DIRECTED. DISCARD ANY OPEN CARTRIDGE AFTER 28 DAYS. Oct 23, 2019 [id number] Aug 30, 2019 ELEUTERIO LIVINGSTON [facility] LACTOBACILLUS ACIDOPHILUS TAB,CHEWABLE Non-VA CHEW ONE TABLET BY MOUTH ONCE A DAY Non-VA Documented by: MEGAN HAWK nted at: [facility] [place] [facility] LANCET,SOFTCLIX Active USE LANCET 5 TIME S A DAY FOR TESTING BLOOD GLUCOSE DIRECTED 500 Dec 28, 2020 [id number] March 19, 2020 ELEUTERIO LIVINGSTON [facility] [place] [facility] LANCET,SOFTCLIX Discontinued USE LANCET 5 TIME S A DAY FOR TESTING BLOOD GLUCOSE DIRECTED 500 Jan 11, 2020 [id number] Sep 29, 2019 [place] ITIS,ELEUTERIO L [facility] [place] [facility] MAGNESIUM OXIDE 400MG TAB Non-VA TAKE ONE TABLET BY MOUTH ONCE A DAY Non-VA Documented by: MEGAN HAWK nted at: [facility] [place] [facility] METOPROLOL SUCCINATE 200MG TAB,SA TAKE O NE-HALF TABLET BY MOUTH EVERY EVENING FOR HEART/BLOOD PRESSURE. SWALLOW WHOLE, DO NOT CRUSH OR CHEW (TABLETS MAY BE CUT IN HALF). 45 March 18, 2020 [id number] Dec 28, 2019 STANISLAV HAMMER [facility] NEEDLE 22G 1.5IN USE NEEDLE FOR EVERY MONTH 1 Nov 12, 2019 [id number] Feb 07, 2019 ADELAIDA CLIFFORD [facility] [place] [facility] NEEDLE,PEN 31G,5MM Discontinued USE NEEDLE SUBCUTANE OUSLY 5 TIMES A DAY - THIS IS A SINGLE USE NEEDLE AND SHOULD BE DISCARDED AFTER USE 500 Dec 21, 2019 [id number] Sep 28, 2019 ELEUTERIO LIVINGSTON [facility] [place] POTASSIUM CHLORIDE 10MEQ TAB,SA Active TAKE TWO TABLETS BY MOUTH TWO TIMES A DAY FOR POTASSIUM SUPPLEMENTATIONTAKE WITH FOOD 360 Dec 12, 2020 [id number] Mar 02, [address] [facility] POTASSIUM CHLORIDE 10MEQ TAB,SA Discontinued TAKE ONE TABLET BY MOUTH THREE TIMES A DAY WITH MEALS FOR POTASSIUM SUPPLEMENTATIONTAKE WITH FOOD 180 March 16, 2020 [id number] Nov 29, 2019 BALELEUTERIO KONG [facility] [place] [facility] POTASSIUM CHLORIDE 10MEQ TAB,SA Discontinued TAKE ONE TABLET BY MOUTH THREE TIMES A DAY WITH MEALS FOR POTASSIUM SUPPLEMENTATIONTAKE WITH FOOD 180 May 26, 2019 [id number] Jan 24, 2019 [facility] [place] [facility] SYRINGE 2.5-3ML/NDL 25G 1IN Active USE 1 SYRINGE EVERY MONTH 3 Feb 21, 2021 [id number] March 20, 2020 [facility] SYRINGE 2.5-3ML/NDL 25G 1IN Discontinued USE 1 SYRINGE EVERY Thu 3 March 18, 2020 [id number] Dec 21, 2019 [facility] TESTOSTERONE CYPIONATE 200MG/ML INJ,1ML (IN OIL) Active INJECT 200 MG (1 ML) INTRAMUSCULARLY EVERY MONTH FOR HORMONE REPLACEMENT 1 May 18, 2020 [id number] April 06, 2020 ADELAIDA CLIFFORD [facility] [place] [facility] TESTOSTERONE CYPIONATE 200MG/ML INJ,1ML (IN OIL) Discontinue d INJECT 200 MG (1 ML) INTRAMUSCULARLY EVERY MONTH FOR HORMONE REPLACEMENT 1 March 25, 2020 [id number] Oct 25, 2019 ADELAIDA CLIFFORD [facility] [place] [facility] TESTOSTERONE CYPIONATE 200MG/ML INJ,1ML (IN OIL) Discontinue d INJECT 200 MG (1 ML) INTRAMUSCULARLY EVERY MONTH FOR HORMONE REPLACEMENT 1 Nov 06, 2019 [id number] Sep 25, 2019 ADELAIDA CLIFFORD [facility] [place] [facility] TESTOSTERONE CYPIONATE 200MG/ML INJ,1ML (IN OIL) Discontinue d INJECT 200 MG (1 ML) INTRAMUSCULARLY EVERY MONTH FOR HORMONE REPLACEMENT 1 May 14, 2019 [id number] Apr 10, 2019 ADELAIDA CLIFFORD [facility] [place] [facility] TRAMADOL HCL 50MG TAB Active TAKE 1 TO 2 TABLET S BY MOUTH EVERY 6 HOURS NEEDED FOR PAIN 180 Jul 21, 2020 [id number] March 30, 2020 NELLA GR[facility] TRAMADOL HCL 50MG TAB Discontinued TAKE 1 TO 2 TABLET S BY MOUTH EVERY 6 HOURS NEEDED FOR PAIN 180 Jun 06, 2020 [id number] Jan 11, 2020 ROSSY GR[facility] 15 TRAMADOL HCL 50MG TAB Discontinued TAKE 1 TO 2 TABLET S BY MOUTH EVERY 6 HOURS NEEDED FOR PAIN 180 Jun 06, 2020 [id number] Dec 06, 2019 ROSSY GROVE [facility] 15 TRAMADOL HCL 50MG TAB Discontinued TAKE 1 TO 2 TABLET S BY MOUTH EVERY 6 HOURS NEEDED FOR PAIN 180 Dec 14, 2019 [id number] Nov 15, 2019 DANTE VALVERDE [facility] [place] [facility] TRAMADOL HCL 50MG TAB Discontinued TAKE 1 TO 2 TABLET S BY MOUTH EVERY 6 HOURS NEEDED FOR PAIN 180 Jul 06, 2019 [id number] May 26, 2019 ROSSY GROVE [facility] [place] [facility] TRIAMCINOLONE ACETONIDE 0.5% CREAM,TOP Active A PPLY SPARINGLY TO AFFECTED AREA ONCE A DAY NEEDED FOR RASH 45 Jul 15, 2020 [id number] April 01 0 THOM CHAMBERS [facility] [place] [facility] TRIAMCINOLONE ACETONIDE 0.5% CREAM,TOP Discontinued A PPLY SPARINGLY TO AFFECTED AREA ONCE A DAY NEEDED FOR RASH 45 Oct 12, 2019 [id number] Jul THOM CHAMBERS [facility] [place] [facility] Problems (Conditions): All historical and current Section Date Range: From patient's date of to the date document was create d. This section includes a list of Problems (Conditions) know n to [facility] for the patient. It includes both active and inacti ve problems (conditions). The data comes from all [place] treatment facilities. Problem Status Problem Code Date of Onset Date of Resolution Comm ent(s) Provider Source Basal cell carcinoma of scalp Active [id number] THOM CHAMBERS [facility] [place] [facility] Chronic back pain Active [id number] TERIRE CHAMBERS [facility] [place] [facility] Chronic kidney disease stage 3 Active [id number] THOM CHAMBERS [facility] [place] [facility] Constipation Active 83510104 THOM [facility] [place] [facility] Diabetes mellitus Active 03731126 REYESTHOM [facility] [place] [facility] Diabetic neuropathy Active [id number] Neha CHAMBERS [facility] [place] [facility] Essential hypertension Active 28188841 THOM CHAMBERS [facility] [place] [facility] Hyperlipidemia Active 85684965 THOM CHAMBERS [facility] [place] [facility] Hypogonadism Active 41181253 THOM [facility]ERS [facility] [place] [facility] Sleep apnea Active 89856406 THOM CHAMBERS RN [facility] [place] [facility] Radiology Reports: +/- 30 days of the encounter No Data Provided for This Section Pathology Reports: +/- 30 days of the encounter No Data Provided for This Section Encounter Notes: All associated encounter notes This section contains the clinical notes associated to the Encounter. Date/Time Encounter Note(s) Provider Source Apr 21, 2019 09:55 AM NURSING OUTPATIENT NOTE: LOCAL TITLE: -NURSING CLINIC CHECK-IN STANDARD TITLE: NURSING OUTPATIENT NOTE DATE OF NOTE: APR 21, 2019@09:55 ENTRY DATE: APR 21, 2019@10:26:50 AUTHOR: BARBARA DUNCAN EXP COSIGNER: URGENCY: STATUS: COMPLETED EK-NURSING CLINIC CHECK-IN Has ADDENDA PRIMARY REASON FOR VISIT TODAY: [place] for bilateral ear lavage to remove impacted cerumen. PATIENT'S GOAL/MISSION FOR THEIR HEALTH: "I want to stay active and be healthy." ALLERGIES/ADR: METFORMIN, LISINOPRIL VITALS: DATE/TIME TEMP PULSE RESP BP PAIN WEIGHT PUL OX 04/21/19 @ 0955 98.3 85 20 161/84 7 176.8 93 Repeat BP: 142/80 REPRODUCTIVE HISTORY: Concerns regardng sexual/reproductive health: None LEARNING ASSESSMENT: Patient's preferred language for discussing health care is: Chinese Today's learning assessment regarding patient's readiness to learn. Patient reads well. Barriers to Learning: Has no barriers to learning. Preferred Method of Learning: Reading Listening Seeing / Videos Demonstration Return Demonstration Hands On/Doing Education provided as per documentation below: SCREENING FOR PAIN STATUS: Patient reported pain level as 7 (04/21/2019 09:55) on 0 to 10 scale. Pain Scale used: Numerical Pain Scale Patient states current level of pain is: Acceptable Location of pain that most interferes with your life: Feet and right hand Characteristics of pain: PAIN QUALITY: Aching Verbal Education Provided: To patient, Pain prevention [...] medication refill requests and other non-urgent communication. OTHER OBSERVATION/INTERVENTION: [place] here for impacted cerumen and bilateral ear lavage. here to have impacted cerumen removed from both ear per [facility] Provider's orders. Prior to lavaging the otoscopic examination of both ear reveals dark brown cerumen and inability to visualize tympanic membranes; both ear canals appeared to be normal with no bleeding or inflammation noted. Left ear lavaged with 325cc warm tap water obtaining a large amount of dark cerumen. Right ear lavaged with 250cc warm tap water obtaining a moderate amount of dark cerumen. Both external ear canals appeared to be clear with no bleeding or inflammation noted and no injury to tympanic membrane noted. Both ear canals appear healthy pink with good reflection on tympanic membranes observed. [place] tolerated procedure well and denied further concerns. PLAN: - to return as needed for furthe r assistance, as ordered per [facility] Provider. - AFter review of handout, "Ear Wax Dwight navjot Process", v/u on use of H2O2 once today. Informational message sent to [facility] Provider. DISPOSITION: To home at 1029 /noa/ BARBARA DUNCAN RN, BSN Signed: 04/21/2019 10:39 Receipt Acknowledged By: 04/21/2019 11:11 /noa/ THOM INGRAM 04/21/2019 ADDENDUM STATUS: COMPLETED P:DM Assessment BP >130/80: Repeat BP: 124/68 The patient's blood pressure is usually adequately controlled. No medication changes are indicated at this time. Comment: at target at recent appt 04/07/19 P:HTN Assessment BP >140/90: Repeat BP: 124/68 The patient's blood pressure is usually adequately controlled. No medication changes are indicated at this time. /noa/ THOM INGRAM Signed: 04/21/2019 11:12 BARBARA DUNCAN [facility]
--- OUTSIDE RECORDS SUMMARY | 2020-04-18 10:26 | XMS REPORT ---
Author Author [facility] SIMI palacio Organization Department of [facility] Address [address] [place] [id number] Phone Unavailable Care Team Providers Care Hand Launderer Name Role Phone THOM CHAMBERS PCP Unavailable [...] MED REP (R) MEDICARE ADVANTAGE MCR ([facility]) Nov 09, 2017 [id number] [phone] SIMI COVARRUBIAS PATIENT ADVANTRA [facility] MED REP (WNR) MEDICARE ADVANTAGE MCR ([facility]) Nov 09, 2017 [id number] SIMI COVARRUBIAS PATIENT AETNA MCR ([facility]) MEDICARE ADVANTAGE MCR ([facility]) Nov 09, 2019 [id number] [id number] SIMI COVARRUBIAS PATIENT Selected Encounter This section includes the information on record at [place] for the Encounter. Date/Time Encounter Type Encounter Description Reason Provider Source Apr 21, 2019 12:00 AM Outpatient Encounter EVENT (HISTORICAL) [...] 2019 03:15 PM AMBULATORY - NONE [facility] [place] [facility] May 04, 2019 09:00 AM [facility]ONE [facility] Jun 01, 2019 02:00 PM [facility]UL[facility]ORY - NONE [facility] Jun 09, 2019 03:30 PM AMBULATORY - NONE [facility] [place] [facility] Jun 30, 2019 10:00 AM AM[facility]ULATORY - NONE [facility] Jul 07, 2019 11:45 AM [facility] Jul 14, 2019 11:00 AM AMBULATORY - NONE [facility] [place] [facility] Jul 28, 2019 10:00 AM [facility]ORY - NONE [facility] Aug 04, 2019 11:00 AM AMBULATORY - NONE [facility] [place] [facility] Aug 16, 2019 01:00 PM AMBULATORY - NONE [facility] [place] [facility] Aug 25, 2019 10:00 AM AM[facility]ULATORY - NONE [facility] Sep 15, 2019 12:00 PM [facility] Sep 22, 2019 10:00 AM AM[facility]ULATORY - NONE [facility] Sep 23, 2019 11:00 AM AMBULATORY - NONE [facility] [place] [facility] Oct 17, 2019 03:00 PM AMBULATORY - NONE [facility] [place] [facility] Oct 20, 2019 10:00 AM AMBULATORY - NONE [facility] Surgical Procedures: All associated [...] Range Comment March 24, 2019 11:08 AM [facility] [place] [facility] HEMOGLOBIN A1C Specimen Type: BLOOD No comment entered. HEMOGLOBIN A1C 8.1 % H 4.0-6.0 March 24, 2019 11:08 AM [facility] UC CEIN CBC & DIFF Specimen Type: BLOOD No [...] 0.8 % March 24, 2019 11:08 AM [facility] [email or web address] COMPREHENSIVE ME TABOLIC PANEL Specimen Type: PLASMA No comment [...] EGFR 55.6 March 24, 2019 11:08 AM [facility] [place] [facility] MICROALBUMIN (CO ,EK) Specimen Type: URINE No comment entered. *MICROALBUMIN(CONC) 38.3 mg/dL - *MICROALBUMIN(SPOT) 208.6 mcg/mg cr HH 0-29 *CREATININE mg/dL 183.6 mg/dl Not Avail. March 24, 2019 11:08 AM [facility] [place] [facility] LIPID PROFIL E(HDL,TRIG,CHOL,LDL) Sp ecimen [...] to drug (disorder) Renal impairment [facility] VIS 15 METFORMIN Dec 01, 2017 Propensity to adverse reactions to drug (disorder) Renal impairment [facility] 15 Medications: VA dispensed (-15 months) and Non-VA Documented (Obtained Outside A) Section Date Range: 1) prescriptions processed by a VA pharmacy in the last 15 m [facility], and 2) all medications recorded [...] TIMES A DAY 400 Sep 12, 2020 [id number] Feb 29, 2020 [facility] ROSINA PLUS (GLUCOSE) TEST STRIP Discontinued USE 1 STRIP FOR TESTING FOUR TIMES A DAY 400 Sep 15, 2019 [id number] Jun 13, 2019 [facility] AL[facility] PRE[facility] Discontinued USE 1 PAD ON SKIN FOUR TIMES A DAY 40 0 Apr 25, 2020 [id number] Nov 29, 2019 BALANGELIKAUSAELEUTERIO QUIGLEY [facility] [place] [facility] ALCOHOL PREP PAD Discontinued USE 1 PAD ON SKIN FOUR TIMES A DAY 40 0 Sep 15, 2019 [id number] Apr 18, 2019 BALANGELIKAUSAELEUTERIO QUIGLEY [facility] ALLOPURINOL 100MG TAB Active TAKE ONE TABLET BY MOUTH ONCE A DAY FOR GOUT. TAKE WITH PLENTY OF WATER 90 Sep 23, 2020 [id number] Mar 05, 2020 SILVINA CHAMBERS [facility] [place] [facility] ALLOPURINOL 100MG TAB Discontinued TAKE ONE TABLET BY MOUTH ONCE A DAY FOR GOUT. TAKE WITH PLENTY OF WATER 90 Dec 30, 2019 [id number] Sep 17, 2019 THOM SHARPE [facility] [place] [facility] ALOGLIPTIN 12.5MG TAB Active TAKE ONE TABLET BY MOUTH O NCE A DAY FOR DIABETES 90 Sep 12, 2020 [id number] Mar 04, 2020 BALTRUSAELEUTERIO QUIGLEY [facility] [place] [facility] ALOGLIPTIN 12.5MG TAB Discontinued TAKE ONE TABLET BY MOUTH ONCE A DAY FOR DIABETES 90 Dec 22, 2019 [id number] Jun 18, 2019 BALTRUSAELEUTERIO QUIGLEY [facility] [place] [facility] AMLODIPINE BESYLATE 10MG TAB Discontinued TAKE ONE TA BLET BY MOUTH EVERY MORNING FOR HEART/BLOOD PRESSURE 90 Jun 10, 2019 [id number] Feb 25, 2019 MONIKA HAMMER [facility] [place] [facility] AMLODIPINE BESYLATE 10MG TAB TAKE ONE TA BLET BY MOUTH EVERY MORNING FOR HEART/BLOOD PRESSURE 90 Apr 12, 2020 [id number] Feb 10, 2020 SILVINA CHAMBERS [facility] ASPIRIN 81MG TAB,CHEWABLE Non-VA CHEW ONE TABLET BY MOUTH ONCE A DAY Non-VA Documented by: MEGAN HAWK nted at: [facility] [place] [facility] ATORVASTATIN CA 20MG TAB Active TAKE ONE TABLET BY MOUTH ONCE A DAY FOR CHOLESTEROL. REPORT ANY UNEXPLAINED MUSCLE PAIN OR WEAKNESS TO YOUR DOCTOR. 90 Jan 02, 2021 [id number] March 24, 2020 [facility] ATORVASTATIN CA 40MG TAB Discontinued TAKE ONE-HALF T ABLET BY MOUTH AT BEDTIME FOR CHOLESTEROL. REPORT ANY UNEXPLAINED MUSCLE PAIN OR WEAKNESS TO YOUR DOCTOR. 45 Jul 15, 2020 [id number] Oct 14, 2019 THOM CHAMEBRS [facility] [place] [facility] ATORVASTATIN CA 40MG TAB Discontinued TAKE ONE-HALF T ABLET BY MOUTH AT BEDTIME FOR CHOLESTEROL. REPORT ANY UNEXPLAINED MUSCLE PAIN OR WEAKNESS TO YOUR DOCTOR. 45 Oct 12, 2019 [id number] Jul 16, 2019 THOM CHAMBERS [facility] [place] [facility] CALCIUM CARBONATE 500MG TAB,CHEWABLE Non-VA CHEW ONE TABLET BY MOUTH PRN Non-VA Documented by: THOM CHAMBERS nted at: [facility] CHLORTHALIDONE 25MG TAB Active TAKE ONE TABLET BY MOUTH ONCE A DAY 90 Jul 01, 2020 [id number] March 19, 2020 MONIKA HAMMER [facility] [place] [facility] CHLORTHALIDONE 25MG TAB Discontinued TAKE ONE TABLET BY MOUTH ONCE A DAY 90 Jun 16, 2019 [id number] Apr 12, 2019 MONIKA HAMMER [facility] [place] [facility] CHOLECALCIFEROL 1000UNT TAB Non-VA TAKE ONE TABLET BY MOUTH EVERY OTHER DAY Non-VA Docume nted by: MEGAN HAWK Docume nted at: [facility] [place] CYANOCOBALAMIN 1000MCG/ML INJ Active INJECT 100 0 MCG (1 ML) INTRAMUSCULARLY EVERY MONTH FOR B12 SUPPLEMENTATION. 3 Nov 03, 2020 [id number] Apr 23, 2020 [facility] [place] [facility] CYANOCOBALAMIN 1000MCG/ML INJ Discontinued INJECT 100 0 MCG (1 ML) INTRAMUSCULARLY EVERY MONTH FOR B12 SUPPLEMENTATION. 3 Nov 17 0 [id number] Aug 07, 2019 THOM CHAMBERS [facility] [place] [facility] DIPHENHYDRAMINE HCL 25MG CAP Non-VA TAKE 1 CAPSULE BY MOUTH PRN Non-VA Documented by: THOM CHAMBERS Docume nted at: [facility] DOCUSATE NA 100MG CAP No n-VA TAKE 2 CAPSULES BY MOUTH ONCE A DAY Non-VA Documented by: THOM CHAMBERS Docume nted at: [facility] FISH OIL 1000MG (500MG DHA/EPA) CAP,ORAL Non-VA TAKE 1 CAPSULE BY MOUTH ONCE A DAY Non-VA Documented by: MEGAN HAWK Docume nted at: [facility] GABAPENTIN 100MG CAP Active TAKE 1 CAPSULE BY M OUTH EVERY MORNING AND TAKE 1 CAPSULE BY MOUTH AT NOON AND TAKE 2 CAPSULES BY MOUTH AT BEDTIME 360 Jul 06, 2020 [id number] March 31, 2020 BALTRELEUTERIO ROJAS [facility] [place] [facility] GLUCAGON 1MG/GABRIELLA INJ,EMERGENCY KIT INJEC T 1MG SUBCUTANEOUSLY NEEDED FOR SEVERE HYPOGLYCEMIA 1 Nov 30, 2019 [id number] Nov 03, 2019 THOM CHAMBERS [facility] [place] [facility] INSULIN,ASPART,HUMAN 100U/ML,NOVOLOG,FLEXPEN,3ML Active: On Hold INJECT 20 UNITS SUBCUTANEOUSLY BEFORE BREAKFAST AND INJECT 20 UNITS BEFORE LUNCH AND INJECT 26 UNITS BEFORE SUPPER AND INJECT 24 UNITS SNACK FOR BLOOD SUGAR CONTROL. ADMINISTER 10 MINUTES BEFORE FOOD DIRECTED. REFRIGERATE UN-OPENED PENS. DISCARD CARTRIDGE 28 DAYS AFTER OPENING. PLUS CORRECTION Mar 01, 2021 [id number] CRYSTALUSAELEUTERIO QUIGLEY [facility] [place] [facility] INSULIN,ASPART,HUMAN 100U/ML,NOVOLOG,FLEXPEN,3ML Discontinue d INJECT 20 UNITS SUBCUTANEOUSLY BEFORE BREAKFAST AND INJECT 20 UNITS BEFORE LUNCH AND INJECT 24 UNITS BEFORE SUPPER AND INJECT 24 UNITS SNACK FOR BLOOD SUGAR CONTROL. ADMINISTER 10 MINUTES BEFORE FOOD DIRECTED. REFRIGERATE UN-OPENED PENS. DISCARD CARTRIDGE 28 DAYS AFTER OPENING. PLUS CORRECTION 30 Jan 26, 2021 [id number] Jan 28, 2020 BALTRUSAELEUTERIO QUIGLEY [facility] [place] [facility] INSULIN,ASPART,HUMAN 100U/ML,NOVOLOG,FLEXPEN,3ML Discontinue d INJECT 20 UNITS SUBCUTANEOUSLY BEFORE MEALS FOR BLOOD SUGAR CONTROL. ADMINISTER 10 MINUTES BEFORE FOOD DIRECTED. REFRIGERATE UN-OPENED PENS. DISCARD CARTRIDGE 28 DAYS AFTER OPENING. PLUS CORRECTION FOR BLOOD SUGAR CONTROL. ADMINISTER 10 MINUTES BEFORE FOOD DIRECTED. REFRIGERATE UN-OPENED PENS. DISCARD CARTRIDGE 28 DAYS AFTER OPENING. PLUS CORRECTION 30 Nov 16, 2020 [id number] Nov 16 [facility] [place] [facility] INSULIN,ASPART,HUMAN 100U/ML,NOVOLOG,FLEXPEN,3ML Discontinue d INJECT 15 UNITS SUBCUTANEOUSLY EVERY MORNING BEFORE MEAL AND INJECT 15 UNITS WITH LUNCH AND INJECT 15 UNITS WITH SUPPER AND INJECT 20 UNITS WITH SNACK FOR BLOOD SUGAR CONTROL. ADMINISTER 10 MINUTES BEFORE FOOD DIRECTED. REFRIGERATE UN-OPENED PENS. DISCARD CARTRIDGE 28 DAYS AFTER OPENING. Dec 22, 2019 [id number] Oct 12, 2019 [facility] [place] [facility] INSULIN,GLARGINE,HUMAN 100 UNIT/ML INJ,SOLOSTAR,3ML Active INJECT 50 UNITS SUBCUTANEOUSLY EVERY MORNING FOR BLOOD SUGAR CONTROL. ADMINISTER AT SAME TIME EACH DAY DIRECTED. DISCARD ANY OPEN CARTRIDGE AFTER 28 DAYS. Sep 23, 2020 [id number] Jan 28, 2020 [facility] [place] [facility] INSULIN,GLARGINE,HUMAN 100 UNIT/ML INJ,SOLOSTAR,3ML Disconti nued INJECT 45 UNITS SUBCUTANEOUSLY EVERY MORNING FOR BLOOD SUGAR CONTROL. ADMINISTER AT SAME TIME EACH DAY DIRECTED. DISCARD ANY OPEN CARTRIDGE AFTER 28 DAYS. Oct 23, 2019 [id number] Aug 30, 2019 [facility] [place] [facility] LACTOBACILLUS ACIDOPHILUS TAB,CHEWABLE Non-VA CHEW ONE TABLET BY MOUTH ONCE A DAY Non-VA Documented by: MEGAN HAWK nted at: [facility] LANCET,SOFTCLIX Active USE LANCET 5 TIME S A DAY FOR TESTING BLOOD GLUCOSE DIRECTED 500 Dec 28, 2020 [id number] March 19, 2020 BALTRUSAELEUTERIO QUIGLEY [facility] [place] [facility] LANCET,SOFTCLIX Discontinued USE LANCET 5 TIME S A DAY FOR TESTING BLOOD GLUCOSE DIRECTED 500 Jan 11, 2020 [id number] Sep 29, 2019 CRYSTALUSA ITISELEUTERIO [facility] [place] [facility] MAGNESIUM OXIDE 400MG TAB Non-VA TAKE ONE TABLET BY MOUTH ONCE A DAY Non-VA Documented by: MEGAN HAWK nted at: [facility] METOPROLOL SUCCINATE 200MG TAB,SA TAKE O NE-HALF TABLET BY MOUTH EVERY EVENING FOR HEART/BLOOD PRESSURE. SWALLOW WHOLE, DO NOT CRUSH OR CHEW (TABLETS MAY BE CUT IN HALF). 45 March 18, 2020 [id number] Dec 28, 2019 STANISLAV HAMMER [facility] NEEDLE 22G 1.5IN USE NEEDLE FOR EVERY MONTH 1 Nov 12, 2019 [id number] Feb 07, 2019 ADELAIDA CLIFFORD [facility] [place] [facility] NEEDLE,PEN 31G,5MM Discontinued USE NEEDLE SUBCUTANE OUSLY 5 TIMES A DAY - THIS IS A SINGLE USE NEEDLE AND SHOULD BE DISCARDED AFTER USE 500 Dec 21, 2019 [id number] Sep 28, 2019 ELEUTERIO LIVINGSTON [facility] [place] [facility] POTASSIUM CHLORIDE 10MEQ TAB,SA Active TAKE TWO TABLETS BY MOUTH TWO TIMES A DAY FOR POTASSIUM SUPPLEMENTATIONTAKE WITH FOOD 360 Dec 12, 2020 [id number] Mar 02, [address] [facility] [place] 15 POTASSIUM CHLORIDE 10MEQ TAB,SA Discontinued TAKE ONE TABLET BY MOUTH THREE TIMES A DAY WITH MEALS FOR POTASSIUM SUPPLEMENTATIONTAKE WITH FOOD 180 March 16, 2020 [id number] Nov 29, 2019 BALTRUSAELEUTERIO QUIGLEY [facility] [place] [facility] POTASSIUM CHLORIDE 10MEQ TAB,SA Discontinued TAKE ONE TABLET BY MOUTH THREE TIMES A DAY WITH MEALS FOR POTASSIUM SUPPLEMENTATIONTAKE WITH FOOD 180 May 26, 2019 [id number] Jan 24, 2019 YANELY [facility] [place] [facility] SYRINGE 2.5-3ML/NDL 25G 1IN Active USE 1 SYRINGE EVERY MONTH 3 Feb 21, 2021 [id number] March 20, 2020 [facility] SYRINGE 2.5-3ML/NDL 25G 1IN Discontinued USE 1 SYRINGE EVERY Thu 3 March 18, 2020 [id number] Dec 21, 2019 [facility] TESTOSTERONE CYPIONATE 200MG/ML INJ,1ML (IN OIL) Active INJECT 200 MG (1 ML) INTRAMUSCULARLY EVERY MONTH FOR HORMONE REPLACEMENT 1 May 18, 2020 [id number] April 06, 2020 ADELAIDA CLIFFORD [facility] [place] [facility] TESTOSTERONE CYPIONATE 200MG/ML INJ,1ML (IN OIL) Discontinue d INJECT 200 MG (1 ML) INTRAMUSCULARLY EVERY MONTH FOR HORMONE REPLACEMENT 1 March 25, 2020 [id number] Oct 25, 2019 ADELAIDA CLIFFORD [facility] [place] [facility] TESTOSTERONE CYPIONATE 200MG/ML INJ,1ML (IN OIL) Discontinue d INJECT 200 MG (1 ML) INTRAMUSCULARLY EVERY MONTH FOR HORMONE REPLACEMENT 1 Nov 06, 2019 [id number] Sep 25, 2019 ADELAIDA CLIFFORD [facility] [place] [facility] TESTOSTERONE CYPIONATE 200MG/ML INJ,1ML (IN OIL) Discontinue d INJECT 200 MG (1 ML) INTRAMUSCULARLY EVERY MONTH FOR HORMONE REPLACEMENT 1 May 14, 2019 [id number] Apr 10, 2019 ADELAIDA CLIFFORD [facility] [place] [facility] TRAMADOL HCL 50MG TAB Active TAKE 1 TO 2 TABLET S BY MOUTH EVERY 6 HOURS NEEDED FOR PAIN 180 Jul 21, 2020 [id number] March 30, 2020 [facility] TRAMADOL HCL 50MG TAB Discontinued TAKE 1 TO 2 TABLET S BY MOUTH EVERY 6 HOURS NEEDED FOR PAIN 180 Jun 06, 2020 [id number] Jan 11, 2020 [facility] TRAMADOL HCL 50MG TAB Discontinued TAKE 1 TO 2 TABLET S BY MOUTH EVERY 6 HOURS NEEDED FOR PAIN 180 Jun 06, 2020 [id number] Dec 06, 2019 [facility] TRAMADOL HCL 50MG TAB Discontinued TAKE 1 TO 2 TABLET S BY MOUTH EVERY 6 HOURS NEEDED FOR PAIN 180 Dec 14, 2019 [id number] Nov 15, 2019 ABRAMDANTE AYDE [facility] [place] [facility] TRAMADOL HCL 50MG TAB Discontinued TAKE 1 TO 2 TABLET S BY MOUTH EVERY 6 HOURS NEEDED FOR PAIN 180 Jul 06, 2019 [id number] May 26, 2019 GROVENELLA MORELOS [facility] [place] [facility] TRIAMCINOLONE ACETONIDE 0.5% CREAM,TOP Active A PPLY SPARINGLY TO AFFECTED AREA ONCE A DAY NEEDED FOR RASH 45 Jul 15, 2020 [id number] April 01 0 REYESTHOM [facility] [place] [facility] TRIAMCINOLONE ACETONIDE 0.5% CREAM,TOP Discontinued A PPLY SPARINGLY TO AFFECTED AREA ONCE A DAY NEEDED FOR RASH 45 Oct 12, 2019 [id number] Jul REYESTHOM [facility] [place] [facility] Problems (Conditions): All historical [...] Source Basal cell carcinoma of scalp Active [id number] THOM CHAMBERS [facility] [place] [facility] Chronic back pain Active [id number] TERRIE CHAMBERS [facility] [place] [facility] Chronic kidney disease stage 3 Active [id number] THOM CHAMBERS [facility] [place] [facility] Constipation Active [id number] THOM CHAMBERS [facility] [place] [facility] Diabetes mellitus Active [id number] THOM CHAMBERS [facility] [place] [facility] Diabetic neuropathy Active [id number] Neha CHAMBERS [facility] [place] [facility] Essential hypertension Active [id number] THOM CHAMBERS [facility] [place] [facility] Hyperlipidemia Active [id number] THOM CHAMBERS [facility] [place] [facility] Hypogonadism Active [id number] REYES[facility] [place] [facility] Sleep apnea Active [id number] THOM CHAMBERS [facility] [place] [facility] Radiology Reports: +/- 30 days of the encounter No Data Provided for This Section Pathology Reports: +/- 30 days of the encounter No Data Provided for This Section Encounter Notes: All associated encounter notes No Data Provided for This Section
--- NOTE | 2020-04-18 10:28 | Diagnostic Imaging Report ---
INDICATION: Preop for heart catheterization and peripheral angiography. TIME OF EXAM: 10:13 AM. COMPARISON: 03/27/2014. FINDINGS: The heart size is stable. The lungs are clear. No infiltrates are detected. The pulmonary vascularity is normal. No effusion or pneumothorax is detected. There are postop changes in the lower cervical spine. IMPRESSION: No acute cardiopulmonary process is detected. Dictated by: Dictated on workstation # [id number]
--- OUTSIDE RECORDS SUMMARY | 2020-04-18 11:13 | XMS REPORT | Continuity of Care Document ---
Author Author SIMI BARKER Organization [facility] Address Unknown Phone Unavailable Care Team Providers Care Supervisor Ditching Name Role Phone [facility] Unavailable Unavailable Problems Problem Status Onset Date Classification Date Reported Comments Source Prepatellar bursitis 02/12/2015 Diagnosis 02/16/2015 [facility], Pain in joint involving lower leg 02/08/2015 Diagnosis 02/12/2015 Critical access hospital, [facility], Chronic kidney disease stage 2 (disorder) Active Problem 02/16/2015 Critical access hospital, [facility], Gastroesophageal reflux disease (disorder) Active Problem 02/16/2015 Critical access hospital, [facility], [facility], Diabetes mellitus type 2 (disorder) Active Problem 08/2015 [facility], [facility], Medications No Data Provided for This Section Allergies, Adverse Reactions, Alerts No Known Medication Allergies Immunizations No Data Provided for This Section Results No Data Provided for This Section Pathology Reports No Data Provided for This Section Diagnostic Reports No Data Provided for This Section Consultation Notes No Data Provided for This Section Discharge Summaries No Data Provided for This Section History and Physicals No Data Provided for This Section Vital Signs No Data Provided for This Section Encounters Location Location Details Encounter Type Encounter Number Reason For Visit Attending Provider ADM [id number] [id number] Elie Thomas 02/02/2015 02/02/2015 Active [facility] [id number] Junior Simmons 02/08/2015 02/09/2015 [facility] [id number] Junior Simmons 02/12/2015 02/13/2015 [facility] [place] Procedures No Data Provided for This Section Plan of Care No Data Provided for This Section Social History No Data Provided for This Section Assessment and Plan No Data Provided for This Section Family History No Data Provided for This Section Advance Directives No Data Provided for This Section Functional Status No Data Provided for This Section
--- OUTSIDE RECORDS SUMMARY | 2020-04-18 11:13 | XMS REPORT ---
Author Author [place] [facility] [employer] [facility] Prior Knowledge [facility] Address [address] [address] Care Team Providers Care Manuscripts Curator Name Role Phone NELLA GROVE Unavailable BOOM LAKE MD Unavailable Unavailable NINA GARCÍA Unavailable Unavailable [place] MD Unavailable Unavailable NELLA GROVE DO Unavailable Unavailable LUCIA SCHNEIDER MD Unavailable Unavailable Unavailable Unavailable Unavailable Unavailable Unavailable Unavailable Allergies Normalized Allergy Reported Date of Reaction(s) Care Provider Facility Allergy Type classification allergen Allergy Onset DA (5 Unclassified No Known Drug 01-02-2011 - no information NINA Not Available sources.) Allergies AKSHAT DAVID (46048) Medications No Information Problems Active Problems Problem Normalized Date Last Normalized Normalized Provider Fa cility Classification Problem(s) Recorded Problem Problem Sta tus Duration Other Basal cell 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 [facility] Via non-epithelial carcinoma of MD [facility] cancer of skin skin of scalp Hospital - (8 sources.) and neck [facility] (05394) 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 NELLA [facility] Via disorders and unspecified DO Cee GROVE dislocations; lateral Hospital - trauma-related meniscus due [facility] (3 sources.) to old tear or (54812) injury, right knee Essential Essential 03-19-2020 - Chronic Active BOOM WALLERO , [facility] Via hypertension (primary) MD Mike (7 sources.) hypertension [facility] - Fluker (01789) Esophageal Gastro-esophag 03-19-2020 - Chronic Active BOOM WALLERO [facility] Via disorders (4 eal reflux [facility] sources.) disease Hospital - without [facility] esophagitis (51205) Disorders of Hyperlipidemia 03-19-2020 - Chronic Active EMILIA WALLERO , [facility] Via lipid , unspecified [facility] metabolism (7 Translations: Hospital - sources.) [ MIXED [facility] HYPERLIPIDEMIA (64319) ] Other shelter 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 TAKLUANNE WALLERO , [facility] Via aftercare (4 (current) use MD [facility] sources.) of aspirin [facility] (82448) Other long term 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 TAKAAKI CHRISTINO , [facility] Via aftercare (4 (current) use MD [facility] sources.) of insulin [facility] (11119) Other 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 LUCIA SCHNEIDER [facility] Via nutritional; (severe) [facility] endocrine; and obesity due to Hospital - metabolic excess [facility] disorders (3 calories (21344) sources.) Residual Obstructive 03-19-2020 - Chronic Active [facility]LUANNE LAKE [facility] Via codes; sleep apnea [facility] unclassified (adult) Hospital - (4 sources.) (pediatric) [facility] (34516) Other Other long 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 TAKLUANNE LAKE , [facility] Via aftercare (4 term (current) MD Mike sources.) drug therapy [facility] (92887) Peripheral and Peripheral 03-22-2020 - Chronic Active LUCIA SCHNEIDER [facility] Via visceral vascular [facility] atherosclerosi disease, Hospital - s (3 sources.) unspecified [facility] (49829) Screening and Personal 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 BOOM SAENZ DO [facility] Via history of history of [facility] mental health nicotine Hospital - and substance dependence [facility] abuse codes (4 (51539) sources.) Spondylosis; Sciatica, 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 NELLA [facility] Via intervertebral right side DO Cee GROVE disc Hospital - disorders; [facility] other back (30319) problems (3 sources.) Diabetes Type 2 03-19-2020 - Chronic Active [facility]ADANY [facility] Via mellitus diabetes [facility] without mellitus Hospital - complication without [place] (4 sources.) complications (46080) Past or Other Problems Problem Normalized Date Last Normalized Normalized Provider Fa cility Classification Problem(s) Recorded Problem Problem Sta tus Duration External cause Accidental no information no information GRETCHE N Not Available codes: Fall (4 fall from bed AKSHAT DAVID (35463) sources.) Other Closed Episodic Completed NINA Not Available fractures (4 fracture of AKSHAT DAVID (05994) sources.) one rib External cause Home accidents no information no information GRE TCHEN Not Available codes: Place AKSHAT DAVID (12454) of occurrence (4 sources.) External cause Other external no information no information GRE TCHEN Not Available codes: cause status AKSHAT DAVID (60201) Unspecified (4 sources.) Other lower Painful Episodic Completed NINA Not Availab le respiratory respiration AKSHAT DAVID (08750) disease (4 sources.) Procedures No Information Immunizations No Information Results Test Name Value Interpretation Reference Range Date Time Fa cility (Normalized) (Normalized) (Medline Reference) laboratory on 2020-04-18 Albumin 4.4 g/dL (NEG) 3.4 - 5.4 g/dL 04-18-2020 PENDING LOCATION [Mass/Vol] 05:55-0400 [facility] (28910) ALP [Catalytic 117 U/L (NEG) 44 - 147 U/L 04-18-2020 PEND ING LOCATION activity/Vol] 05:55-0400 [facility] (13964) ALT [Catalytic 28 U/L (NEG) 4 - 40 U/L 04-18-2020 PENDIN G LOCATION activity/Vol] 05:55-0400 [facility] (71509) Anion gap 12 mmol/L (NEG) 3 - 11 mmol/L 04-18-2020 PENDING LOCATION [Moles/Vol] 05:55-0400 [facility] (02048) aPTT Coag (PPP) 30 s (NEG) 25 - 35 s 04-18-2020 PENDIN G LOCATION [Time] 05:55-0400 [facility] (69422) AST [Catalytic 34 U/L (NEG) 10 - 34 U/L 04-18-2020 PENDI NG LOCATION activity/Vol] 05:55-0400 [facility] (17718) Bilirubin 0.5 mg/dL (NEG) 0.1 - 1.2 mg/dL 04-18-2020 PENDIN G LOCATION [Mass/Vol] 05:55-0400 [facility] (58673) Calcium 9.7 mg/dL (NEG) 8.5 - 10.2 mg/dL 04-18-2020 PENDI NG LOCATION [Mass/Vol] 05:55-0400 [facility] (95470) Calcium 9.4 mg/dL (NEG) 8.5 - 10.2 mg/dL 04-18-2020 PENDI NG LOCATION [Mass/Vol] 05:55-0400 [facility] (65736) Chloride 98 mmol/L (NEG) 95 - 106 mmol/L 04-18-2020 PENDIN G LOCATION [Moles/Vol] 05:55-0400 [facility] (97245) Cholesterol 175 mg/dL (no code) 180 - 200 mg/dL 04-18-2020 PEND ING LOCATION [Mass/Vol] 05:55-0400 [facility] (38995) Cholesterol in 53 mg/dL (NEG) 04-18-2020 PENDING LOC ATION HDL [Mass/Vol] 05:55-0400 [facility] (04862) Cholesterol in 107 mg/dL (NEG) 0 - 100 mg/dL 04-18-2020 PEN DING LOCATION LDL [Mass/Vol] 05:55-0400 [facility] (24103) Cholesterol in 25 mg/dL (NEG) 04-18-2020 PENDING LOC ATION VLDL [Mass/Vol] 05:55-0400 [facility] (74273) CO2 [Moles/Vol] 29 mmol/L (NEG) 23 - 29 mmol/L 04-18-2020 P ENDING LOCATION 05:55-0400 [facility] (31527) Creatinine 1.44 mg/dL (H) 04-18-2020 PENDING LOCATI ON [Mass/Vol] 05:55-0400 [facility] (64223) Creatinine and 48 (no code) 04-18-2020 PENDING LOC ATION Glomerular 05:55-0400 [facility] (16772) filtration rate.predicted panel - Serum, Plasma or Blood Glucose 190 mg/dL (H) 60 - 125 mg/dL 04-18-2020 PENDING LOCATION [Mass/Vol] 05:55-0400 [facility] (40910) INR Coag 0.9 (NEG) 04-18-2020 PENDING LOCATI ON (Platelet poor 05:55-0400 [facility] (07706) plasma or blood) [Relative time] Potassium 3.9 mmol/L (NEG) 3.7 - 5.2 mmol/L 04-18-2020 PEND ING LOCATION [Moles/Vol] 05:55-0400 [facility] (02909) Protein 7.5 g/dL (NEG) 6.4 - 8.3 g/dL 04-18-2020 PENDING LOCATION [Mass/Vol] 05:55-0400 [facility] (74594) PT Coag (PPP) 12.2 s (NEG) 9.4 - 12.5 s 04-18-2020 [facility] LOCATION [Time] 05:55-0400 [facility] (13951) Sodium 139 mmol/L (NEG) 135 - 145 mmol/L 04-18-2020 [facility] LOCATION [Moles/Vol] 05:55-0400 [facility] (56802) Triglyceride 127 mg/dL (NEG) 0 - 150 mg/dL 04-18-2020 [facility] LOCATION [Mass/Vol] 05:55-0400 [facility] (01522) Urea nitrogen 16 mg/dL (NEG) 7 - 20 mg/dL 04-18-2020 [facility] LOCATION [Mass/Vol] 05:55-0400 [facility] (52464) Urea 11 mg/mg (no code) 6 - 22 mg/mg 04-18-2020 PENDING L OCATION nitrogen/Creatin 05:55-0400 [facility] (77975) ine [Mass ratio] Vital Signs The data below is from unstructured sources Vital Response Date/Time Temperature (Fahrenheit) 98.0 degree s F (97.6 - 99.5) 08/20/2017 2:40pm Temperature (Calculated Celsius) 36. 66086 degrees C (36.4 - 37.5) 08/20/2017 2:30pm Temperature Source Temporal 08/20/2017 2:40pm Pulse Rate (adult) 62 bpm (60 - 90) 08/20/2017 2:40pm Respiratory Rate 16 bpm (12 - 24) 08/20/2017 2:40pm O2 Sat by Pulse Oximetry 95 % (88 - 100) 08/20/2017 2:40pm Blood Pressure 165/77 mm Hg 08/20/2017 2:40pm Blood Pressure Mean 97 mm Hg 08/20/2017 9:10am Pain Numeric Pain Scale 5-Moderate Pain 08/20/2017 2:40pm Pain Intensity 5 2016 2:30pm Height (Feet) 5 feet 10/2017 9:08am Height (Inches) 4.00 inches 08/20/2017 9:08am Height (Calculated Centimeters) 162. 095885 cm 08/20/2017 9:08am Weight (Pounds) 152 pounds 08/20/2017 9:08am Weight (Ounces) 0.0 oz 1 9:08am Weight (Calculated Grams) 17546.04 gm 08/20/2017 9:08am Weight (Calculated Kilograms) 68.946 041 kilograms 08/20/2017 9:08am Calculated BMI 26.1 08/09 9:08am Interventions No Information Plan of Treatment The data below is from unstructured sources Discharge Date 08/20/17 2:40pm Instructions/Education Provided ANES THESIA INSTRUCTIONS POSTOP Prescriptions See Medication Section Goals No Information Social History The data below is from unstructured sources History Response Recorde d Date/Time Alcohol Use Denies Use 0 02/08/13 4:31pm Recreational Drug Use N 02/08/13 4:31pm Sexually Transmitted Disease N 02/08/13 4:31pm Functional Status The data below is from unstructured sourcesNo functional status information available. Mental Status No Information Encounters Encounter Normalized Encounter Encounter Diagnosis Care Provi amie Organization Date Type 08-20-2017 Patient encounter no information no name no or ganization name - 08-20-2017 03-21-2020 Patient encounter no information LUCIA SCHNEIDER MD (no [facility] Via Cee procedure phone) [facility] (no phone) 08-20-2017 Patient encounter no information BOOM LA[facility] MD (n o [facility] Via Cee - procedure phone) [facility] 08-20-2017 (no phone) 08-19-2017 Patient encounter no information BO[facility] LA[facility] MD (n o [facility] Via Cee - procedure phone) [facility] 08-19-2017 (no phone) 01-16-2016 Patient encounter no information NELLA GROVE DO [facility] Via Cee procedure (no phone) [facility] (no phone) 03-25-2014 Patient encounter no information no name no or ganization name procedure 03-07-2020 no information Encounter for other no name (no phone) preprocedural examination NEGATED no information Encounter for other no name no organization name preprocedural examination Medical Equipment No Information Payers The data below is from unstructured sources Payer Name Policy Number Subscriber Name Relationship Wps Medicare [id number] Geovany Wilcox Self / Same As Patient [employer] [id number] Geovany Wilcox Self / Same As Patient Advance Directives Directive Response Recor ded Date Advance Directives N 06/21 11:05am Health Care Power of Administration Internship N 05/16/13 11:05am Organ Donor N 05/16/13 1 1:05am Directive Response Recor ded Date/Time Advance Directives No 9:06am Health Care Power of Administration Internship No 08/20/17 9:06am Organ Donor No 08/20/17 9:06am Resuscitation Status Full Code 08/20/17 9:06am Discharge Instructions No hospital discharge instruction information available. Additional Source Comments This clinical document has been generated using [employer] software that has been certified by the Office of the National Coordinator for Health Information Technology (ONC 15.99.04.3023.Diam.31.00.0.852060) and the National Committee for Horticultural Agent (NCQA, as an eMeasure certified technology). FOR RECORDS PERTAINING TO PATIENTS WHO ARE OR HAVE BEEN ENROLLED IN A CHEMICAL D EPENDENCY/SUBSTANCE ABUSE PROGRAM, SOME INFORMATION MAY BE OMITTED. This clinica l summary was aggregated from multiple sources. Caution should be exercised in using it in the provision of clinical care. This summary normalizes information from multiple sources, and as a consequence, information in this document may ma terially change the coding, format and clinical context of patient data. In samia tion, data may be omitted in some cases. CLINICAL DECISIONS SHOULD BE BASED ON T HE PRIMARY CLINICAL RECORDS. [employer] provides no warranty or guara ntee of the accuracy or completeness of information in this document.The followi ng information is based on time limited clinical information
--- OUTSIDE RECORDS SUMMARY | 2020-04-18 11:13 | XMS REPORT | Continuity of Care Document ---
Author Author [facility] Organization [facility] Address Unknown Phone Unavailable Care Team Providers Care Or Manager Name Role Phone NELLA GROVE DO PP Insurance Providers Payer Name Policy Number Subscriber Name Relationship Wps Medicare [id number] Geovany Covarrubias 01 Self / Same As Patient [employer] [id number] Geovany Covarrubias Self / Same As Patient Advance Directives Directive Response Recor ded Date Advance Directives N 06/21 11:05am Health Care Power of Middle School Tutor N 05/16/13 11:05am Organ Donor N 05/16/13 1 1:05am Problems No Known Problems or Medical conditions. Social History History Response Recorde d Date/Time Alcohol Use Denies Use 0 02/08/13 4:31pm Recreational Drug Use N 02/08/13 4:31pm Sexually Transmitted Disease N 02/08/13 4:31pm Allergies, Adverse Reactions, Alerts Allergen Type Severity Reaction Last Updated No Known Drug Allergies 01/02/11 Medications Medication Dose Units Route Sig Qty Days Cephalexin Monohydrate (Cephalexin) 1 Each PO TID Hydrocodone Bit/Acetaminophen (Vicodin 5-300 Mg Tablet ) 1 - 2 Each PO Q4H PRN Gabapentin (Neurontin) 200 Mg PO HS Amlodipine Besylate 1 Ea ch PO DAILY Insulin Glargine (Lantus) 38 Units SQ HS Glimepiride 8 Mg PO BID Testosterone Cypionate (Testosterone Cyp (Non-Form)) 200 Mg IM MONTHLY Cyanocobalamin 1000 Mcg IJ MONTHLY Metoprolol Tartrate (Lopressor 25 Mg Tab) 25 Mg PO DAILY Lisinopril (Prinivil) 20 Mg PO DAILY Mohawk-3 Fatty Acids/Fish Oil (Fish Oil 1,000 Mg Softge l) 1000 Mg PO DAILY Aspirin (Aspirin Ec 81 Mg) 81 Mg PO DAILY Atorvastatin Calcium (Lipitor 20MG) 20 Mg PO DAILY Esomeprazole Magnesium (Nexium) 40 Mg PO DAILY Liraglutide (Victoza) 1.8 Mg SQ HS Metformin HCl (Metformin 500 Mg) 1000 Mg PO BID Hydrochlorothiazide 25 Mg PO DAILY Celecoxib (Celebrex) 200 Mg PO DAILY Insulin Detemir (Levemir Pen) 15 Units SQ HS Sitagliptin Phosphate (Januvia) 1 Each PO DAILY [Androgel Packs] TOP DAILY Acetaminophen/Hydrocodone Bitart (Lortab 5 Mg) 1 - 2 Ea PO Q 4 - 6 HR PRN 30 Metformin HCl (Metformin 500 Mg) 250 Mg PO BID WITH MEALS Potassium Gluconate 99 Mg PO DAILY Response Recorded Date/Time Status not known Unknown Results Test Date Result Interp. Ref. Range Alanine Aminotransferase (ALT/SGPT) February 08, 2013 4:00pm 36 U/L N 30-65 Albumin February 08, 2013 4:00pm 3.9 G/DL N 3.4-5.0 Alkaline Phosphatase February 08, 2013 4:00pm 133 U/L N 50-136 Aspartate Amino Transf (AST/SGOT) Ap 2012 4:00pm 16 U/L N 15-37 BUN/Creatinine Ratio May 11, 2013 10:45am 25 - Basophils # (Auto) February 08, 2013 4:00pm 0.0 10^3/uL N 0.0-0.1 Basophils (%) (Auto) February 08, 2013 4:00pm 0 % N 0-10 Blood Urea Nitrogen May 11, 2013 10:45am 33 MG/DL H 7-18 Calcium Level May 11, 2013 10:45am 8.2 MG/DL L 8.5-10.1 Carbon Dioxide Level May 11, 2013 10:45am 27 MMOL/L N 21-32 Chloride Level May 11, 2013 10:45am 98 MMOL/L L 101-110 Creatinine May 11, 2013 10:45am 1.3 MG/DL N 0.6-1.3 Eosinophils # (Auto) February 08, 2013 4:00pm 0.1 10^3/uL N 0.0-0.3 Eosinophils (%) (Auto) February 08 3 4:00pm 1 % N 0-10 Glucose Level May 11, 2013 10:45am 198 MG/DL H 74-106 Hematocrit February 08, 2013 4:00pm 44 % N 40-54 Hemoglobin February 08, 2013 4:00pm 15.3 G/DL N 13.3-17.7 Lymphocytes # (Auto) February 08, 2013 4:00pm 1.1 X 10^3 N 1.0-4.0 Lymphocytes (%) (Auto) February 08 3 4:00pm 11 % L 12-44 Mean Corpuscular Hemoglobin February 4:00pm 30 PG N 25-34 Mean Corpuscular Hemoglobin Concent February 08, 2013 4:00pm 35 G/DL N 32-36 Mean Corpuscular Volume February 08 13 4:00pm 85 FL N 80-99 Mean Platelet Volume February 08, 2013 4:00pm 11.2 FL H 7.4-10.4 Monocytes # (Auto) February 08, 2013 4:00pm 0.8 X 10^3 N 0.0-1.0 Monocytes (%) (Auto) February 08, 2013 4:00pm 8 % N 0-12 Neutrophils # (Auto) February 08, 2013 4:00pm 8.0 X 10^3 H 1.8-7.8 Neutrophils (%) (Auto) February 08 3 4:00pm 80 % H 42-75 Platelet Count February 08, 2013 4:00pm 222 10^3/uL N 130-400 Potassium Level May 11, 2013 10:45am 4.4 MMOL/L N 3.6-5.0 Red Blood Count February 08, 2013 4:00pm 5.14 10^6/uL N 4.35-5.85 Red Cell Distribution Width February 4:00pm 12.9 % N 10.0-14.5 Sodium Level May 11, 2013 10:45am 134 MMOL/L L 135-145 Total Bilirubin February 08, 2013 4:00pm 0.4 MG/DL N 0.0-1.0 Total Protein February 08, 2013 4:00pm 7.4 G/DL N 6.4-8.2 Urine Bacteria February 08, 2013 4:00pm FEW /HPF H - Urine Bilirubin February 08, 2013 4:00pm NEGATIVE - Urine Casts February 08, 2013 4:00pm NONE /LPF - Urine Clarity February 08, 2013 4:00pm CLOUDY H - Urine Color February 08, 2013 4:00pm YELLOW - Urine Crystals February 08, 2013 4:00pm NONE /LPF - Urine Culture Indicated February 08 4:00pm YES - Urine Glucose (UA) February 08, 2013 4:00pm TRACE H - Urine Ketones February 08, 2013 4:00pm NEGATIVE - Urine Leukocyte Esterase February 08 013 4:00pm 2+ H - Urine Mucus February 08, 2013 4:00pm NEGATIVE /LPF - Urine Nitrite February 08, 2013 4:00pm NEGATIVE - Urine Protein February 08, 2013 4:00pm 2+ H - Urine RBC February 08, 2013 4:00pm 5-10 /HPF H - Urine Specific Berkley February 08 201 3 4:00pm 1.025 H - Urine Squamous Epithelial Cells Apri l 2012 4:00pm 0-2 /HPF - Urine Urobilinogen February 08, 2013 4:00pm NORMAL MG/DL - Urine WBC February 08, 2013 4:00pm >100 /HPF H - Urine pH February 08, 2013 4:00pm 5 - White Blood Count February 08, 2013 4:00pm 10.1 10^3/uL N 4.3-11.0 Glucometer July 15, 2012 10:59am 232 MG/DL H 70-110 Estimat Glomerular Filtration Rate J genevieve 2012 10:45am 55 - Urine RBC (Auto) February 08, 2013 4:00pm 4+ H - Procedures Procedure Code Date LAP VENT/ABD HERNIA REPAIR 29004 01/02/11 CORRECTION OF BUNION 39601 05/09/11 EXC S/N/H/F/G MAL+MRG 1.1-2 89650 07/15/12 UPPER GI ENDOSCOPY BIOPSY [id number] 08/27/12 MRSA Screen 05/11/13 Urine Culture 02/08/13 Encounters Encounter Location Date/ Time Departed Emergency Room [facility] 02/08/13 3:46pm
--- OUTSIDE RECORDS SUMMARY | 2020-04-18 11:13 | XMS REPORT | Continuity of Care Document ---
Author Organization Unknown Address Unknown Phone Unavailable Allergies Active Description Code Type Severity Reaction Onset Reported/Identified Relationship to Patient Clinical Status Yes No Known Drug Allergies [id number] Drug Allergy Unknown N/A 01/02/2011 Medications There is no data. Problems Date Dx Coded Attending Type Code Diagnosis Diagnosed By 01/02/2011 Ot 250.00 01/02/2011 Ot 553.1 01/02/2011 Ot V58.69 07/15/2012 Ot 173.41 07/15/2012 Ot 250.00 02/08/2013 Ot 584.9 02/08/2013 Ot 786.50 05/16/2013 NATALIA DPM, BLAYNE Q Ot 355. 6 05/16/2013 NATALIA DPM, BLAYNE Q Ot 726. 90 05/16/2013 NATALIA DPM, BLAYNE Q Ot 733. 99 05/16/2013 NATALIA DPM, BLAYNE Q Ot V58. 69 01/23/2014 TALI VILLA APRN Ot 590.80 01/23/2014 TALI VILLA APRN Ot 789.09 03/25/2014 NINA GARCÍA Ot 786.52 03/25/2014 NINA GARCÍA Ot 807.01 03/25/2014 NINA GARCÍA Ot E000.8 03/25/2014 NINA GARCÍA Ot E849.0 03/25/2014 NINA GARCÍA Ot E884.4 03/29/2014 NELLA GROVE DO Ot 250.00 03/29/2014 NELLA GROVE DO Ot 257.2 03/29/2014 NELLA GROVE DO Ot 272.0 03/29/2014 NELLA GROVE DO Ot 276.51 03/29/2014 NELLA GROVE DO Ot 278.00 03/29/2014 NELLA GROVE DO Ot 327.23 03/29/2014 NELLA GROVE DO Ot 382.9 03/29/2014 NELLA GROVE DO Ot 403.90 03/29/2014 NELLA GROVE DO Ot 518.0 03/29/2014 NELLA GROVE DO Ot 530.81 03/29/2014 NELLA GROVE DO Ot 564.09 03/29/2014 NELLA GROVE DO Ot 564.1 03/29/2014 NELLA GROVE DO Ot 584.9 03/29/2014 NELLA GROVE DO Ot 585.4 03/29/2014 NELLA GROVE DO Ot 600.00 03/29/2014 NELLA GROVE DO Ot 696.1 03/29/2014 NELLA GROVE DO Ot 716.90 03/29/2014 NELLA GROVE DO Ot 799.02 03/29/2014 NELLA GROVE DO Ot 807.01 03/29/2014 NELLA GROVE DO Ot E849.0 03/29/2014 NELLA GROVE DO Ot E884.4 03/29/2014 NELLA GROVE DO Ot E937.9 03/29/2014 NELLA GROVE DO Ot V15.82 03/29/2014 NELLA GROVE DO Ot V58.67 03/29/2014 NELLA GROVE DO Ot V85.32 01/16/2016 Ot 553.1 01/16/2016 Ot 791.9 01/16/2016 Ot V72.63 01/16/2016 Ot V72.81 01/16/2016 Ot V74.8 01/16/2016 Ot 735.2 01/16/2016 Ot V72.63 01/16/2016 Ot V74.8 01/16/2016 Ot 250.00 01/16/2016 Ot 735.2 01/16/2016 Ot V58.69 01/16/2016 Ot 536.8 01/16/2016 Ot 789.01 01/16/2016 Ot 789.01 01/16/2016 Ot 173.41 01/16/2016 Ot V72.63 01/16/2016 Ot V74.8 01/16/2016 Ot V72.84 01/16/2016 Ot 530.11 01/16/2016 Ot 535.50 01/16/2016 Ot 553.3 01/16/2016 NATALIA DPM, BLAYNE Q Ot 355. 6 01/16/2016 NATALIA DPM, BLAYNE Q Ot 726. 90 01/16/2016 NATALIA DPM, BLAYNE Q Ot V72. 63 01/16/2016 NATALIA DPM, BLAYNE Q Ot V74. 8 01/16/2016 JONN GO, FREDDY Hensley Ot 571.8 01/16/2016 JONN GO, FREDDY Hensley Ot 599.7 0 01/16/2016 FLORENCE RATLIFF Ot 388.60 01/18/2016 GROVE DO, NELLA Chiu Ot M23.200 01/18/2016 GROVE DO, NELLA Chiu Ot M54.31 01/22/2016 GROVE DO, NELLA Chiu Ot M23.200 01/22/2016 GROVE DO, NELLA Chiu Ot M54.31 02/05/2016 GROVE DO, NELLA Chiu Ot M23.200 02/05/2016 GROVE DO, NELLA Chiu Ot M54.31 10/09/2016 NINA GARCÍA Ot 786.52 PAINFUL RESPIRATION 10/09/2016 NINA GARCÍA Ot 807.01 FRACTURE ONE RIB-CLOSED 10/09/2016 NINA GARCÍA Ot E000.8 OTHER EXTERNAL CAUSE STATUS 10/09/2016 NINA GARCÍA Ot E849.0 ACCIDENT IN HOME 10/09/2016 NINA GARCÍA Ot E884.4 FALL FROM BED 12/10/2016 NINA GARCÍA Ot 786.52 PAINFUL RESPIRATION 12/10/2016 NINA GARCÍA Ot 807.01 FRACTURE ONE RIB-CLOSED 12/10/2016 NINA GARCÍA Ot E000.8 OTHER EXTERNAL CAUSE STATUS 12/10/2016 NINA GARCÍA Ot E849.0 ACCIDENT IN HOME 12/10/2016 NINA GARCÍA Ot E884.4 FALL FROM BED 01/07/2017 NINA GARCÍA Ot 786.52 PAINFUL RESPIRATION 01/07/2017 NINA GARCÍA Ot 807.01 FRACTURE ONE RIB-CLOSED 01/07/2017 NINA GARCÍA Ot E000.8 OTHER EXTERNAL CAUSE STATUS 01/07/2017 FRANKIE ODEN, NINA L Ot E849.0 ACCIDENT IN HOME 01/07/2017 FRANKIE ODEN, NINA L Ot E884.4 FALL FROM BED 04/09/2017 FRANKIE ODEN, NINA L Ot 786.52 PAINFUL RESPIRATION 04/09/2017 FRANKIE ODEN, NINA L Ot 807.01 FRACTURE ONE RIB-CLOSED 04/09/2017 FRANKIE ODEN, NINA L Ot E000.8 OTHER EXTERNAL CAUSE STATUS 04/09/2017 FRANKIE ODEN, NINA L Ot E849.0 ACCIDENT IN HOME 04/09/2017 FRANKIE ODEN, NINA L Ot E884.4 FALL FROM BED 05/09/2017 FRANKIE ODEN, NINA L Ot 786.52 PAINFUL RESPIRATION 05/09/2017 FRANKIE ODEN, NINA L Ot 807.01 FRACTURE ONE RIB-CLOSED 05/09/2017 FRANKIE ODEN, NINA L Ot E000.8 OTHER EXTERNAL CAUSE STATUS 05/09/2017 FRANKIE ODEN, NINA L Ot E849.0 ACCIDENT IN HOME 05/09/2017 FRANKIE ODEN, NINA L Ot E884.4 FALL FROM BED 07/10/2017 FRANKIE ODEN, NINA L Ot 786.52 PAINFUL RESPIRATION 07/10/2017 FRANKIE ODEN, NINA L Ot 807.01 FRACTURE ONE RIB-CLOSED 07/10/2017 FRANKIE ODEN, NINA L Ot E000.8 OTHER EXTERNAL CAUSE STATUS 07/10/2017 FRANKIE ODEN, NINA L Ot E849.0 ACCIDENT IN HOME 07/10/2017 FRANKIE ODEN, NINA L Ot E884.4 FALL FROM BED 08/19/2017 BOOM LAKE MD Ot 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 08/19/2017 BOOM LAKE MD, Ot Z01.81 8 ENCOUNTER FOR OTHER PREPROCEDURAL EXAMIN 08/20/2017 BOOM LAKE MD, Ot 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 08/20/2017 BOOM LAKE MD, Ot E11.9 TYPE 2 DIABETES MELLITUS WITHOUT COMPLIC 08/20/2017 BOOM LAKE MD, Ot E78.5 HYPERLIPIDEMIA, UNSPECIFIED 08/20/2017 BOOM LAKE MD, Ot G47.33 OBSTRUCTIVE SLEEP APNEA (ADULT) (PEDIATR 08/20/2017 BOOM LAKE MD, Ot I10 ESSENTIAL (PRIMARY) HYPERTENSION 08/20/2017 BOOM LAKE MD, Ot K21.9 GASTRO-ESOPHAGEAL REFLUX DISEASE WITHOUT 08/20/2017 BOOM LAKE MD, Ot Z79.4 PENITENTIARY (CURRENT) USE OF INSULIN 08/20/2017 BOOM LAKE MD, Ot Z79.82 PENITENTIARY (CURRENT) USE OF ASPIRIN 08/20/2017 BOOM LAKE MD, Ot Z79.89 9 OTHER PENITENTIARY (CURRENT) DRUG THERAPY 08/20/2017 BOOM LAKE MD, Ot Z87.89 1 PERSONAL HISTORY OF NICOTINE DEPENDENCE 08/25/2017 BOMO LAKE MD, Ot 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 01 MORBID (SEVERE) OBESITY DUE TO EXCESS CA 03/22/2020 LUCIA SCHNEIDER MD Ot E78. 2 MIXED HYPERLIPIDEMIA 03/22/2020 LUCIA SCHNEIDER MD Ot I10 ESSENTIAL (PRIMARY) HYPERTENSION 03/22/2020 LUCIA SCHNEIDER MD Ot I73. 9 PERIPHERAL VASCULAR DISEASE, UNSPECIFIED 04/12/2020 LUCIA SCHNEIDER MD Ot E66. 01 MORBID (SEVERE) OBESITY DUE TO EXCESS CA 04/12/2020 LUCIA SCHNEIDER MD Ot E78. 2 MIXED HYPERLIPIDEMIA 04/12/2020 LUCIA SCHNEIDER MD Ot I10 ESSENTIAL (PRIMARY) HYPERTENSION 04/12/2020 LUCIA SCHNEIDER MD Ot I73. 9 PERIPHERAL VASCULAR DISEASE, UNSPECIFIED Procedures There is no data. Results Test Result Range Methicillin resistant Staphylococcus aur eus (MRSA) screening culture - 08/20/17 08:30 Methicillin resistant Staphylococcus aureus (MRSA) scr eening culture NEG NRG Capillary blood glucose measurement by g lucometer (mass/volume) - 08/20/17 08:36 Capillary blood glucose measurement by glucometer (mas s/volume) 105 mg/dL 70-110 Complete urinalysis with reflex to cultu re - 04/18/20 09:40 Urine color determination YELLOW NRG Urine clarity determination CLEAR NR G Urine pH measurement by test strip 7.5 5-9 Specific gravity of urine by test strip 1.020 1.016-1.022 Urine protein assay by test strip, semi-quantitative 2+ NEGATIVE Urine glucose detection by automated test strip 2+ NEGATIVE Erythrocytes detection in urine sediment by light micr oscopy TRACE-L NEGATIVE Urine ketones detection by automated test strip NE GATIVE NEGATIVE Urine nitrite detection by test strip NEGATIVE NEGATIVE Urine total bilirubin detection by test strip NEGA TIVE NEGATIVE Urine urobilinogen measurement by automated test strip (mass/volume) 0.2 mg/dL < = 1.0 Urine leukocyte esterase detection by dipstick NEG ATIVE NEGATIVE Automated urine sediment erythrocyte cou nt by microscopy (number/high power field) [HPF] NRG Automated urine sediment leukocyte count by microscopy (number/high power field) NONE NRG Bacteria detection in urine sediment by light microsco py NEGATIVE NRG Crystals detection in urine sediment by light microsco py NONE NRG Casts detection in urine sediment by light microscopy NONE NRG Mucus detection in urine sediment by light microscopy NEGATIVE NRG Complete urinalysis with reflex to culture NO NRG PT panel in platelet poor plasma by coag ulation assay - 04/18/20 09:55 Prothrombin time (PT) in platelet poor plasma by coagu lation assay 12.2 s 12.2-14.7 INR in platelet poor plasma or blood by coagulation as say 0.9 0.8-1.4 Activated partial thromboplastin time (a PTT) in platelet poor plasma bycoagulation assay - 04/18/20 09:55 Activated partial thromboplastin time (a PTT) in platelet poor plasma bycoagulation assay 30 s 24-35 Comprehensive metabolic panel - 04/18/20 09:55 Serum or plasma sodium measurement (moles/volume) 139 mmol/L 135-145 Serum or plasma potassium measurement (moles/volume) 3.9 mmol/L 3.6-5.0 Serum or plasma chloride measurement (moles/volume) 98 mmol/L 98-107 Carbon dioxide 29 mmol/L 21-32 Serum or plasma anion gap determination (moles/volume) 12 mmol/L 5-14 Serum or plasma urea nitrogen measurement (mass/volume ) 16 mg/dL 7-18 Serum or plasma creatinine measurement (mass/volume) 1.44 mg/dL 0.60-1.30 Serum or plasma urea nitrogen/creatinine mass ratio 11 NRG Serum or plasma creatinine measurement w ith calculation of estimated glomerular filtration rate 48 NRG Serum or plasma glucose measurement (mass/volume) 190 mg/dL 70-105 Serum or plasma calcium measurement (mass/volume) 9.7 mg/dL 8.5-10.1 Serum or plasma total bilirubin measurement (mass/volu me) 0.5 mg/dL 0.1-1.0 Serum or plasma alkaline phosphatase gunnar surement (enzymatic activity/volume) 117 U/L 40-136 Serum or plasma aspartate aminotransfera se measurement (enzymatic activity/volume) 34 U/L 5-34 Serum or plasma alanine aminotransferase measurement (enzymatic activity/volume) 28 U/L 0-55 Serum or plasma protein measurement (mass/volume) 7.5 g/dL 6.4-8.2 Serum or plasma albumin measurement (mass/volume) 4.4 g/dL 3.2-4.5 CALCIUM CORRECTED 9.4 mg/dL 8.5-10.1 Lipid 1996 panel - 04/18/20 09:55 Serum or plasma triglyceride measurement (mass/volume) 127 mg/dL <150 Serum or plasma cholesterol measurement (mass/volume) 175 mg/dL < 200 Serum or plasma cholesterol in HDL measurement (mass/v olume) 53 mg/dL 40-60 Cholesterol in LDL [mass/volume] in serum or plasma by direct assay 107 mg/dL 1-129 Serum or plasma cholesterol in VLDL measurement (mass/ volume) 25 mg/dL 5-40 Encounters ACCT No. Visit Date/Time Discharge Status Pt. Type Provider Facility Loc./Unit Complaint [id number] 03/21/2020 09:20:00 020 23:59:59 CLS Outpatient JENNIE GOLUCIA [facility] CARD HYPERLIPIDEMIA,HTN,PAD, MORBID OBESITY [id number] 08/20/2017 08:16:00 017 14:40:00 DIS Outpatient BOOM LAKE MD [facility] BASAL CELL CA [id number] 08/19/2017 13:13:00 017 14:44:00 DIS Outpatient BOOM LAKE MD [facility] PREOP BASAL CELL CA HEAD [id number] 01/16/2016 09:17:00 016 23:59:59 CLS Outpatient NELLA GROVE DO [facility] RAD RIGHT SCIATICA, MENISCUS INJURY [id number] 03/29/2014 13:00:00 014 23:59:59 CLS Outpatient FLORENCE RATLIFF SPUD SORTER [facility] LABNPT [id number] 03/27/2014 02:49:00 014 12:05:00 DIS Inpatient NELLA GROVE DO [facility] 4TH [id number] 03/25/2014 11:21:00 014 14:32:00 DIS Outpatient NINA GARCÍA [facility] ER SOA [id number] 01/23/2014 15:25:00 014 17:51:00 DIS Emergency TALI VILLA APRN [facility] ER [id number] 11/28/2013 12:09:00 014 23:59:59 CLS Outpatient FREDDY LUNSFORD MD [facility] RAD [id number] 05/16/2013 10:20:00 013 16:00:00 DIS Outpatient NATALIA DPRocky, BLAYNE Q [facility] [id number] 05/11/2013 10:16:00 013 23:59:59 CLS Outpatient NATALIA DPRocky, BLAYNE Q [facility] PREOP [id number] 04/18/2020 08:52:[address] Outpatient LUCIA SCHNEIDER MD [facility] CATH ABN STRESS,ABN EKG,HTN,HLP,C LAUDICATION [id number] 02/08/2013 15:46:00 Document Registration [id number] 08/27/2012 08:45:00 Document Registration [id number] 08/26/2012 07:18:00 Document Registration [id number] 07/15/2012 05:41:00 Document Registration [id number] 07/14/2012 11:49:00 Document Registration [id number] 04/20/2012 08:39:00 Document Registration [id number] 04/15/2012 08:18:00 Document Registration [id number] 05/09/2011 05:31:00 Document Registration [id number] 05/05/2011 15:17:00 Document Registration [id number] 01/02/2011 05:39:00 Document Registration [id number] 01/01/2011 08:50:00 Document Registration
[2020-04-18] MEDS ORDERED: HEParin 1000 UNIT/ML (10ML VIAL) FOR BOLUS ONE (11:24)
[2020-04-18] MEDS ORDERED: NITRO DRIP 25000 MCG/D5W 250 ML IV ONE (11:34)
--- NOTE | 2020-04-18 12:05 | Cardiac Procedure Note-CS/ASA ---
Pre-Procedure Note Pre-Op Procedure Note H&P Reviewed The H&P was reviewed, patient examined and no changes noted. Date H&P Reviewed: Apr 18, 2020 Time H&P Reviewed: 10:00 Conscious Sedation Pre-Proced Time 10:00 ASA Score 3 For ASA 3 and 4: Consider anesthesia and medical clearance. Also, for patients with a history of failed moderate sedation consider anesthesia. Airway Lungs Heart ASA score ASA 1: a normal healthy patient ASA 2: a patient with a mild systemic disease (mid diabetes, controlled hypertension, obesity x ASA 3: a patient with a severe systemic disease that limits activity (angina, COPD, prior Myocardial infarction) ASA 4: a patient with an incapacitating disease that is a constant threat to life (CHF, renal failure) ASA 5: a moribund patient not expected to survive 24 hrs. (ruptured aneurysm) ASA 6: a declared brain- patient whose organs are being harvested. For emergent operations, add the letter E after the classification Mallampati Classification Grade 3 Sedation Plan Analgesia, Amnesia, Plan communicated to team members, Discussed options with patient/fam, Discussed risks with patient/fam The patient is an appropriate candidate to undergo the planned procedure, sedation, and anesthesia. The patient immediately re-assessed prior to indication. LUCIA SCHNEIDER MD Apr 18, 2020 12:05
[2020-04-18] MEDS ORDERED: ASPIRIN 81 MG CHEW (CHILDREN'S ASA) ONE (12:14)
[2020-04-18] MEDS ORDERED: CLOPIDOGREL 300 MG (PLAVIX) TABLET PO ONE (12:14)
[2020-04-18] MEDS ORDERED: PATIENT MAY USE OWN MEDS, ALL PO SCH (12:15)
[2020-04-18] MEDS ORDERED: TRIAMCINOLONE 0.1% CR (KENALOG) 15 GM TUBE TP PRN (12:15)
[2020-04-18] MEDS ORDERED: TESTOSTERONE CYPIONATE 100 MG IM SCH (12:15)
--- NOTE | 2020-04-18 12:22 | Cardiac Cath Report ---
Cardiac Cath Report Physician (s)/Chair Caner (s) Physician LUCIA SCHNEIDER MD Pre-Procedure Diagnosis Pre-Procedure Diagnosis: Coronary artery disease, peripheral arterial disease Post-Procedure Note Procedure Start Date: Apr 18, 2020 Name of Procedure: Left heart catheterization Stenting to the right coronary artery Bilateral lower extremities runoff Third order Additional imaging X2 Findings/Procedure Note PROCEDURE NOTE: Having chest pain and claudication, had abnormal TBI and abnormal stress test scheduled for cardiac catheterization and peripheral angiogram. After explaining the procedure to the patient, all pros and cons were explained, all questions were answered. The patient signed the consent and then he was placed on the cardiac catheterization laboratory. Groin was prepped SL fashion local anesthesia was used. Sheath placed in the right femoral artery artery. Tamera right and left catheter were used to access the coronary system. JR catheter was used to cross the aortic valve and prolapse of the left ventricle, pressure was measured, pullback LV to aorta was done. Patient was noted to have severe stenosis in the right coronary artery, 5000 units of heparin was given then FR guide was advanced BMW wire was parked distally, I was unable to advance the stent over the wire due to tortuosity and severe stenosis, I advanced a second BMW wire as a tez wire and then I was able to advance the first stent which is Evelyne 2.5 x 23 mm deployed up to 2.8 mm second proximal stent overlapping using a second Evelyne 2.5 x 23 mm expanded to 2.8 mm with excellent results, proximal to stent there is 50 percent stenosis that was not intervened on. Using a diagnostic right catheter I was able to cross over and placed JR catheter at the iliac artery right after the leg there was significant stenosis below the trifurcation subsequently I advanced a stork wire down to the SFA then exchanged to Glidewire and a long straight catheter advanced to the distal SFA and didn't angiogram with DSA to evaluate the trifurcation second angiogram to reevaluate the foot level. The catheter was pulled out then runoff of the right leg was done through the sheath. At the end of the procedure the sheath was removed. Closure device was used FINDINGS: Hemodynamics LV 158/15, end-diastolic pressure 15 Aorta 135/58 mean of 86 ANATOMY: Left Main has no obstructive disease Left Anterior Descending slightly tortuous with mild to moderate disease in the midportion Left Circumflex moderate disease in the midportion nonobstructive disease Right Coronory Artery is dominant artery, tortuous artery with severe stenosis at 2 segments in the proximal and mid RCA, successful deployment of overlapping Evelyne stent 2.5 x 23 and 2.5 x 23 overlapping expanded to 2.8 mm with excellent results, proximal to both stent there is an area of 50-60 percent stenosis treated conservatively. LV Gram was not done, pressure was measured Right leg runoff done through the sheaths showing mild iliac disease, mild SFA disease, total occlusion of the anterior tibial artery, good flow through the posterior tibial and peroneal artery down to the foot Left leg runoff done at multiple segment with angiogram with limited amount of contrast showing mild disease at the left iliac and left SFA, total occlusion of the anterior tibial, patent posterior tibial and peroneal artery. Aorta CONCLUSION: 1. Severe long segment stenosis in the proximal and midright coronary artery, successful deployment of 2 overlapping Evelyne stents both are 2.5 x 23 mm with expanded to 2.8 mm with excellent results. Proximal to the stent there is an area of 50-60 percent stenosis that was not intervened on. Treated medically 2. Mild to moderate disease in the mid LAD and mid circumflex artery 3. Normal left ventricular end-diastolic pressure 4. Total occlusion of the right anterior tibial artery with [id number] disease in the SFA 5. Total occlusion of the left anterior tibial artery with good flow through the posterior tibial and peroneal artery, mild to moderate disease in the proximal and mid left SFA DISCUSSION AND RECOMMENDATION: Maximize medical therapy. Continue to monitor, planning to repeat stress test in 3-6 months to evaluate the need for further intervention on the right coronary artery or the LAD Anesthesia Type: Conscious Sedation Estimated blood loss (mL): 50 ml Contrast Amount: 85 ml Total Radiation Dose: 774 mGy Post-Procedure Diagnosis Post-operative diagnosis: Coronary artery disease Peripheral arterial disease Hypertension Hyperlipidemia LUCIA SCHNEIDER MD Apr 18, 2020 12:22
--- NOTE | 2020-04-18 13:51 | NUR ---
Patient's brought his medications, unfortunately the medications were not brought in a bottle, they were brought in a bag mixed together. This nurse educated patient that I am not able to send down medications to be verified by pharmacy due to the medications not being in the regular bottle. Patient was very agitated by this policy, patient began to yell and continued repeating "I will be taking my own medications, I know what medications I take, you do not need to know them." I explained to the patient that I legally cannot allow him to take medications without them being verified and with a doctors order. Patient continued to yell and interrupt this nurse. Patient now saying that he is not going to take any medications at all while he is here. Yajaira COOPER, was right outside of patients room at nurses station, patients door was open, Yajaira was a witness to nurse and patients conversation. This nurse called at 1346, I updated him on patient being upset by the policy and upset that his medications need to be in the original bottle and that patient was yelling. immediately came up to room 510, this nurse and [employer] both at bedside as well, also educated the patient on the hospital policy, patient tells that he will not be taking any medications unless it is a new one prescribed today or if he is taking his medications that he brought here with him today. reiterated to patient the importance of taking the Aspirin and Plavix.
[2020-04-18] MEDS ORDERED: AMLO10TA7 PO (15:08)
[2020-04-18] MEDS ORDERED: POTA10TA36 PO (15:08)
[2020-04-18] MEDS ORDERED: INSU100I10 SQ (15:08)
[2020-04-18] MEDS ORDERED: ALLO100T PO (15:08)
--- NOTE | 2020-04-18 15:14 | NUR ---
THE PT WAS ADMITTED AFTER BEING SEEN IN THE STONE SETTER APPRENTICE- I DID NOT DO THE INITIAL MED REC, IT WAS DONE IN THE STONE SETTER APPRENTICE. I WAS ASKED TO REVIEW IT BY THE PHARMACISTS I SPOKE WITH THE PT AND GOT A MED L[place] FROM [place] [facility] TO COMPLETE THE MED REC THE FOLLOWING ARE FILL DATES FROM THE [place]: 12-29-2019 METOPROLOL SUCC 200MG #45/90DS 01-30-2020 LANTUS SOLOSTAR #5PENS/90DS 01-31-2020 NOVOLOG FLEXPEN #10PENS/84DS 02-07-2020 AMLODIPINE 10MG #90/90DS 02-22-2020 POTASSIUM CHLORIDE 10MEQ #360/90DS 02-25-2020 ALLOPURINOL 100MG #90/90DS 03-21-2020 ATORVASTATIN 20MG #90/90DS 03-21-2020 CHLORTHALIDONE 25MG #90/90DS 03-22-2020 GABAPENTIN 100MG #360/90DS 03-23-2020 TAC 0.5% 03-27-2020 TRAMADOL 50MG #180/30DS 04-03-2020 TESTOSTERONE INJECTION 200MG/ML #1/DS 04-16-2020 CYANOCOBALAMIN 1000MG/ML #/DS OTC MEDS: ASPIRIN 81MG VIT D DOCUSATE FISH OIL LACTOBACILLUS MAGNESIUM
[2020-04-18] MEDS ORDERED: TEST200V21 IM (15:24)
[2020-04-18] MEDS ORDERED: NON-FORMULARY MEDICATION 1 EA EA (Insulin Aspart (Novolog Flexpen) 20 UNITS) SQ SCH (16:00)
[2020-04-18] MEDS ORDERED: KCL 10 MEQ TAB (MICRO K) PO SCH (18:00)
[2020-04-18] MEDS: KCL 20 MEQ TAB (K-DUR) PO SCH (19:29)
[2020-04-18] MEDS: inSUlin ASPART (NovoLOG) 1 UNIT/0.01 ML (CHARGE PER UNIT) SC SCH (20:16)
[2020-04-18] MEDS ORDERED: GABAPENTIN 100 MG (NEURONTIN) CAP PO SCH (21:00)
[2020-04-18] MEDS ORDERED: INSULIN LISPRO 50 UNIT SQ SCH (21:00)
[2020-04-19 03:01] VITALS: BP 151/68
[2020-04-19 05:13] LABS: HEMOGLOBIN 15.4 G/DL (13.3-17.7); MEAN PLATELET VOLUME 10.5 FL (7.4-10.4); RED CELL DISTRIBUTION WIDTH 16.2 % (10.0-14.5); WHITE BLOOD COUNT 9.9 10^3/uL (4.3-11.0)
[2020-04-19 05:23] LABS: POTASSIUM 3.6 MMOL/L (3.6-5.0)
[2020-04-19 05:24] LABS: CALCIUM 8.7 MG/DL (8.5-10.1)
[2020-04-19 05:28] LABS: CREATININE SERUM 1.29 MG/DL (0.60-1.30)
[2020-04-19] MEDS: inSUlin ASPART (NovoLOG) 1 UNIT/0.01 ML (CHARGE PER UNIT) SC SCH (05:32)
[2020-04-19] MEDS ORDERED: CLOP75TA28 PO (06:35)
--- NOTE | 2020-04-19 06:35 | Discharge Inst-Post CATH ---
Discharge Inst-CATH/EP Problems Reviewed?: Yes Post Cardiac Cath/EP D/C Inst Follow Up/Plan Appointment with Dr Xiao in 2-4 weeks <b>CARDIAC CATH/EP PROCEDURE DISCHARGE INSTRUCTIONS</b> ACTIVITY * Go Home directly and rest. * Limit activity of the leg (or wrist if it was used) for 7 days including aerobics, swimming, jogging, bicycling, etc. * Restrict stair-climbing for 7 days if possible, if not, climb up with your non-cath leg, then bring together on the same step. * Avoid lifting, pushing, pulling or excessive movement of the affected extremity for 7 days. * Customary sexual activity may be resumed after 2 days-use caution not to use a position that strains or causes pain to the affected extremity. * No driving for 24 hours. * NO SMOKING. * Avoid straining for bowel movements for 7 days. * Gentle walking on level ground is allowed. * Returning to work will depend on the type of procedure and the results. Your doctor will discuss this with you. CALL YOUR DOCTOR FOR ANY OF THE FOLLOWING: *If bleeding from the puncture site occurs- Apply gentle pressure to site with clean cloth and call your doctor or EMS. * If a knot or lump forms under the skin, increases in size, or causes pain. * If bruising appears to be worsening or moving further down your leg instead of disappearing. * Temperature above 101 F. CARE OF YOUR GROIN INCISION; * Bruising or purple discoloration of the skin near the puncture site is common. * You may shower only, no bathtub bathing for 5 days. Be careful to avoid slipping as your leg may feel stiff. * If a closure device was used on your femoral artery, please see the attached guide regarding care of the device and your leg. * Leave dressing on FOR 24 hours. CARE OF YOUR WRIST INCISION; * Bruising or purple discoloration of the skin near the puncture site is common. * You may shower. * DO NOT submerge wrist. * Leave dressing on FOR 24 hours. LUCIA XIAO MD Apr 19, 2020 06:35
[2020-04-19 07:22] VITALS: BP 175/81
[2020-04-19] MEDS ORDERED: OMEGA 3 (FISH OIL) 1000 MG CAP PO SCH (08:00)
[2020-04-19] MEDS ORDERED: GABAPENTIN 100 MG (NEURONTIN) CAP PO SCH (08:00)
[2020-04-19] MEDS ORDERED: GLIMEPIRIDE 4 MG (AMARYL) TAB PO SCH (08:00)
[2020-04-19] MEDS: NS IV 1000 ML 1,000 ML IV SCH (08:27)
[2020-04-19] MEDS: KCL 20 MEQ TAB (K-DUR) PO SCH (08:27)
--- NOTE | 2020-04-19 08:49 | Cardiology Progress Note ---
Subjective Date Seen by Provider: Apr 19, 2020 Time Seen by Provider: 08:48 Subjective/Events-last exam Patient is laying down in bed, feeling well. No new complaint, groin is healing well. Review of Systems General: No Chills, No Night Sweats, No Fatigue, No Malaise, No Appetite, No Other HEENT: No Head Aches, No Visual Changes, No Eye Pain, No Ear Pain, No Dyspha marni, No Sinus Congestion, No Post Nasal Drip, No Sore Throat, No Other Pulmonary: No Dyspnea, No Cough, No Pleuritic Chest Pain, No Other Cardiovascular: No: Chest Pain, Palpitations, Orthopnea, Paroxysmal Noc. Dyspnea, Edema, Lt Headedness, Other Objective-Cardiology Exam Last Set of Vital Signs Vital Signs 04/18/20 04/19/20 04/19/20 17:25 07:22 08:00 Temp 36.2 Pulse 75 Resp 17 B/P (MAP) 175/81 (112) Pulse Ox 98 O2 Delivery Room Air O2 Flow Rate 4.00 Capillary Refill : Less Than 3 Seconds I&O Intake and Output 04/19/20 00:00 Intake Total 1350 ml Output Total 150 ml Balance 1200 ml Intake Oral 350 ml IV Total 1000 ml Output Urine Total 150 ml General: Alert, Oriented X3, Cooperative HEENT: Atraumatic, PERRLA Neck: Supple, No JVD, No Thyromegaly Lungs: Clear to Auscultation, Normal Air Movement Heart: Regular Rate, Normal S1, Normal S2, No Murmurs Abdomen: Normal Bowel Sounds, Soft, No Tenderness, No Hepatosplenomegaly, No Masses Extremities: No Clubbing, No Cyanosis, No Edema, Normal Pulses, No Tenderness /Swelling Skin: No Rashes, No Breakdown, No Significant Lesion Neuro: Normal Gait, Normal Speech, Strength at 5/5 X4 Ext, Normal Tone, Sensation Intact Psych/Mental Status: Mental Status NL, Mood NL Results Lab Laboratory Tests 04/18/20 09:55 04/19/20 05:05 A/P-Cardiology Admission Diagnosis Coronary artery disease Hypertension Peripheral arterial disease Hyperlipidemia Assessment/Plan Coronary artery disease, status post 2 stents to the right coronary artery. Educated in length about taking aspirin and Plavix for the next year. Continue to monitor Peripheral arterial disease, clinically stable. Continue to monitor Hypertension, monitor blood pressure Hyperlipidemia, monitor lipids LUCIA SCHNEIDER MD Apr 19, 2020 8:49 am
[2020-04-19] MEDS ORDERED: ASPIRIN E.C. 81 MG (ECOTRIN) TAB PO SCH (09:00)
[2020-04-19] MEDS ORDERED: MAGNESIUM OXIDE (MAG-OX)400 MG TAB PO SCH (09:00)
[2020-04-19] MEDS ORDERED: NON-FORMULARY MEDICATION 1 EA EA (Lactobacillus Acidophilus (Probiotic) 1 EACH) PO SCH (09:00)
[2020-04-19] MEDS ORDERED: CLOPIDOGREL 75 MG (PLAVIX) TABLET PO SCH (09:00)
[2020-04-19] MEDS ORDERED: meTOprolol SUCCINATE 100 MG (TOPROL XL) TAB PO SCH (09:00)
[2020-04-19] MEDS ORDERED: LACTOBACILLUS ACIDOPHILUS (PROBIOTIC) CAPSULE PO SCH (09:00)
[2020-04-19] MEDS ORDERED: CHLORTHALIDONE 25 MG (HYGROTON) TABLET PO SCH (09:00)
[2020-04-19] MEDS ORDERED: ALLOPURINOL 100 MG (ZYLOPRIM) TAB PO SCH (09:00)
[2020-04-19] MEDS ORDERED: NON-FORMULARY MEDICATION 1 EA EA (Metoprolol Succinate 200 MG) PO SCH (09:00)
[2020-04-19] MEDS ORDERED: NON-FORMULARY MEDICATION 1 EA EA (Alogliptin Benzoate (Alogliptin) 12.5 MG) PO SCH (09:00)
[2020-04-19] MEDS ORDERED: amLODIPine 10 MG (NORVASC) TAB PO SCH (09:00)
[2020-04-19] MEDS ORDERED: NON-FORMULARY MEDICATION 1 EA EA (Sitagliptin Phosphate (Januvia) 100 MG) PO SCH (09:00)
== END 2020-04-19 09:30 | disposition home or self-care (01) ==
LOC: CATH 08:52 → CSD 12:44 → CATH 04-19 09:30
PROVIDERS: ATTEND Internal Medicine Cardiovascular Disease
DX: I25.10 Atherosclerotic heart disease of native coronary artery without angina pectoris (principal); I70.92 Chronic total occlusion of artery of the extremities; I65.23 Occlusion and stenosis of bilateral carotid arteries; E11.51 Type 2 diabetes mellitus with diabetic peripheral angiopathy without gangrene; I12.9 Hypertensive chronic kidney disease with stage 1 through stage 4 chronic kidney disease, or unspecified chronic kidney disease; E78.2 Mixed hyperlipidemia; E11.22 Type 2 diabetes mellitus with diabetic chronic kidney disease; N18.3 Chronic kidney disease, stage 3 (moderate); E66.01 Morbid (severe) obesity due to excess calories; Z79.82 Long term (current) use of aspirin; Z79.4 Long term (current) use of insulin; Z79.899 Other long term (current) drug therapy; Z87.891 Personal history of nicotine dependence; Z68.30 Body mass index [BMI] 30.0-30.9, adult
CPT/HCPCS: 36248; 36415; 71045; 75716; 80048; 80053; 80061; 81000; 85027; 85347; 85610; 85730; 87081; 93005; 93458

== ENCOUNTER → 2021-04-15 | Outpatient (CLI) | payer OTHER ==
[~2021-04-15] MED LIST changes: +ALLO100T PO; +ALOG12.52 PO; +AMLO-251 PO; +CHLO25TA22 PO; +CHOL500049 PO; +CLOP75TA28 PO; -DOCU-238 PO; +DOCU-241 PO; +INSU100I10 SQ; +INSU100I14 SQ; +METO200T48 PO; +PAMI30VI8 SQ; +POTA10TA36 PO; +REGADENOSON 0.4 MG/5 ML SYR (LEXISCAN) IV ONE; +TEST200V21 IM; +TR1C15 TP
[2021-04-15] MEDS: CATHETER FLUSH 10 ML SYR IV PRN ×2 (10:50→11:53)
[2021-04-15 11:46] VITALS: BP 184/75
--- NOTE | 2021-04-16 08:04 | Cardiology Stress Test Report ---
Stress Test Report Date of Procedure/Referring: Date of Procedure: Apr 15, 2021 Rekha Smith Admitting Physician Sam Lujan DO Indications: CAD Baseline Heart Rate: 68 Baseline Blood Pressure: Blood Pressure Systolic: 184 Blood Pressure Diastolic: 75 Baseline Vitals Vital Signs Date Time Temp Pulse Resp B/P (MAP) Pulse Ox O2 Delivery O2 Flow Rate FiO2 04/15/21 11:46 69 14 184/75 (111) 94 Room Air Baseline EKG: Baseline EKG: Sinus rhythm, T wave inversion in lead II, III, aVF, V4, V5 and V6 Summary After explaining the procedure to the patient, he signed a consent and then brought to the stress nuclear laboratory. Patient received 0.4 mg Lexiscan for stress test, ECG, heart rate and blood pr essure were monitored continuously. Resting and stress dose of radio tracer were injected, imaging was acquired and reviewed in short axis, horizontal long axis and vertical long axis views. TID: 1.09 SSS: 5 SDS: 3 EF: 52 1. Patient tolerated Lexiscan well 2. Baseline EKG abnormality persisted during test 3. Diaphragmatic attenuation with mild decreased uptake at the mid to apical inferior wall with mild reversibility 4. Normal left ventricular size, EF 52% LUCIA SCHNEIDER MD Apr 16, 2021 08:04
== END ==
LOC: CARD 10:27
PROVIDERS: ATTEND Physician Assistant
DX: I25.10 Atherosclerotic heart disease of native coronary artery without angina pectoris (principal)
CPT/HCPCS: 78452; 93017

== ENCOUNTER 2021-04-24 11:00 | Day surgery (SDC) | payer OTHER ==
[~2021-04-24] VITALS: Ht 160 cm; Wt 81.1 kg
[2021-04-24] VITALS (14 sets, daily range): BP systolic 144–170; BP diastolic 62–86
[2021-04-24 09:28] LABS: HEMATOCRIT 58 % (40-54); HEMOGLOBIN 17.5 g/dL (13.3-17.7); MEAN CORPUSCULAR HEMOGLOBIN 24 pg (25-34); MEAN CORPUSCULAR HGB CONC 30 g/dL (32-36); MEAN CORPUSCULAR VOLUME 78 fL (80-99); MEAN PLATELET VOLUME 10.9 fL (9.0-12.2); PLATELET COUNT 257 10^3/uL (130-400); WHITE BLOOD COUNT 13.4 10^3/uL (4.3-11.0)
[2021-04-24 09:44] LABS: INR 0.9 (0.8-1.4); PROTHROMBIN TIME PATIENT 12.4 SEC (12.2-14.7)
[2021-04-24 09:52] LABS: BILIRUBIN,TOTAL 0.5 MG/DL (0.1-1.0); CALCIUM 9.9 MG/DL (8.5-10.1); CREATININE SERUM 1.51 MG/DL (0.60-1.30); POTASSIUM 3.3 MMOL/L (3.6-5.0)
--- NOTE | 2021-04-24 09:59 | Diagnostic Imaging Report ---
INDICATION: Preop screening. Comparison made with prior examination 04/18/2020. FINDINGS: The heart size, mediastinal configuration, and pulmonary vascularity are within normal limits. There is no pleural effusion, pneumothorax, or pneumonia. The osseous structures are unremarkable. IMPRESSION: No acute cardiopulmonary abnormality. Dictated by: Dictated on workstation # [id number]
[~2021-04-24 11:00] MED LIST changes: +ASPI-1238 PO; +CEPH500T PO; +CHOL500050 PO; -DOCU-241 PO; +DOCU-26 PO; +FURO20TA4 PO; +MTP100TCR PO; +NS IV 1000 ML 1,000 ML IV SCH; +PANT40TA52 PO; -REGADENOSON 0.4 MG/5 ML SYR (LEXISCAN) IV ONE
--- NOTE | 2021-04-24 11:17 | Conscious Sedation/ASA ---
Conscious Sedation Pre-Proced Time 11:17 ASA Score 3 For ASA 3 and 4: Consider anesthesia and medical clearance. Also, for patients with a history of failed moderate sedation consider anesthesia. Airway Lungs Heart ASA score ASA 1: a normal healthy patient ASA 2: a patient with a mild systemic disease (mid diabetes, controlled hypertension, obesity x ASA 3: a patient with a severe systemic disease that limits activity (angina, COPD, prior Myocardial infarction) ASA 4: a patient with an incapacitating disease that is a constant threat to life (CHF, renal failure) ASA 5: a moribund patient not expected to survive 24 hrs. (ruptured aneurysm) ASA 6: a declared brain- patient whose organs are being harvested. For emergent operations, add the letter E after the classification Mallampati Classification Grade 3 Sedation Plan Analgesia, Amnesia, Plan communicated to team members, Discussed options with patient/fam, Discussed risks with patient/fam The patient is an appropriate candidate to undergo the planned procedure, sedation, and anesthesia. The patient immediately re-assessed prior to indication. LUCIA SCHNEIDER MD Apr 24, 2021 11:17
[2021-04-24] MEDS ORDERED: fentaNYL INJ 100 MCG/2 ML AMP ONE (11:28)
[2021-04-24] MEDS ORDERED: MIDAZOLAM 5 MG/5 ML (VERSED) VIAL ONE (11:29)
[2021-04-24] MEDS ORDERED: NITRO DRIP 25000 MCG/D5W 250 ML IV ONE (12:32)
[2021-04-24] MEDS ORDERED: FUROSEMIDE 20 MG (LASIX) TAB PO SCH (13:00)
[2021-04-24] MEDS ORDERED: NON-FORMULARY MEDICATION 1 EA EA (Testosterone Cypionate 200 MG) IM SCH (13:00)
[2021-04-24] MEDS ORDERED: TRIAMCINOLONE 0.1% CR (KENALOG) 15 GM TUBE TP PRN (13:00)
[2021-04-24] MEDS ORDERED: PATIENT MAY USE OWN MEDS, ALL PO SCH (13:00)
[2021-04-24] MEDS ORDERED: ASPIRIN 325 MG (5 GR) TABLET ONE (13:03)
[2021-04-24] MEDS ORDERED: CLOPIDOGREL 300 MG (PLAVIX) TABLET PO ONE (13:03)
--- NOTE | 2021-04-24 13:11 | Cardiac Cath Report ---
Cardiac Cath Report Physician (s)/Earth Moving Machine Operator (s) Physician LUCIA SCHNEIDER MD Pre-Procedure Diagnosis Pre-Procedure Diagnosis: Coronary artery disease, peripheral arterial disease Post-Procedure Note Procedure Start Date: Apr 24, 2021 Name of Procedure: Left heart catheterization Bilateral lower extremity runoff Third order Additional imaging x2 Attempt for intervention on the left anterior tibial artery Attempt for intervention on the left posterior tibial artery Balloon angioplasty to the left peroneal artery Findings/Procedure Note PROCEDURE NOTE: 75 years old gentleman with extensive history of coronary artery disease, peripheral arterial disease, having nonhealing foot ulcer. Scheduled for periph eral angiogram and coronary angiogram, planning to use limited amount of contrast due to underlying renal insufficiency. After explaining the procedure to the patient, all pros and cons were explained, all questions were answered. The patient signed the consent and then he was placed on the cardiac catheterization laboratory. Groin was prepped SL fashion local anesthesia was used. Sheath placed in the right femoral artery. Tamera right and left catheter were used to access the coronary system. Tamera right was used to cross to the left ventricular cavity, pressure was measured, no left ventriculogram was done, pullback LV to aorta was done. Using Tamera right catheter I was able to cross over with the Storq wire then exchanged into a straight catheter placed initially at the proximal SFA on the left side and did runoff to the leg using 4 mL of contrast then advanced the catheter down to the trifurcation repeat angiogram with DSA at that point I decided to proceed with intervention. Patient received 5000 unit of heparin, 6 [place] 65 cm sheath was advanced to the SFA, I had difficulty advancing command 14 or command 18 wire through the anterior tibial artery that was totally occluded, I used mini catheter and advanced the mini catheter in the proximal portion of the anterior tibial artery did manual injection showing total occlusion proximally and heavy collaterals. I attempted with multiple different wires without success then I redirected the wire into the left peroneal artery and did multiple inflation balloon angioplasty using [place] 3 x 60 with excellent results, the posterior tibial artery has severe ostial stenosis, I did multiple attempt to cross the lesion without success. I was hesitant to continue due to the underlying renal insufficiency Sheath was removed and exchanged using short 6 [place] sheath and did runoff using 4 mL of contract through the sheath in the right lower extremity. At the end of the procedure the sheath was removed. Closure device was deployed FINDINGS: Hemodynamics LV 175/15, end-diastolic pressure of 15 Aorta 172/72 mean of 108 ANATOMY: Left Main has mild disease Left Anterior Descending tortuous artery, calcified with moderate stenosis in the mid and distal portion, the first diagonal artery has moderate to severe stenosis distally, small artery Left Circumflex is moderate in size with no obstructive disease Right Coronary Artery is small to moderate in size, patent stent in the mid and distal right coronary artery, the proximal lesion that was 50% is still present with appeared to be not obstructive disease LV Gram was not done, pressure was measured Left lower extremity, moderate stenosis in the mid left SFA, total occlusion of the anterior tibial artery that has failed intervention, severe ostial stenosis in the posterior tibial artery with failed intervention, severe stenosis in the tibioperoneal trunk and the peroneal artery with successful balloon angioplasty using [place] 3 x 60 Right lower extremity, mild disease in the right SFA, occluded right anterior tibial artery and severe stenosis in the posterior tibial artery CONCLUSION: 1. Patent stent in the proximal and mid right coronary artery, proximally there is 50% stenosis that has not changed compare to the previous study 2. Moderate to severe stenosis in the first diagonal artery, small artery not amendable to intervention 3. Moderate stenosis in the mid and distal LAD 4. Elevated left ventricular end-diastolic pressure 5. Severe peripheral arterial disease on the left lower extremity with successful balloon angioplasty to the tibioperoneal trunk and peroneal artery, occluded anterior tibial artery with failed attempt for intervention and severe stenosis at the ostial posterior tibial artery with failed attempt for intervention 6. Total occlusion of the right anterior tibial artery with severe stenosis in the right posterior tibial artery DISCUSSION AND RECOMMENDATION: Continue to maximize medical therapy Anesthesia Type: Conscious Sedation Estimated blood loss (mL): 35 ml Contrast Amount: 61 ml Total Radiation Dose: 435 mGy Post-Procedure Diagnosis Post-operative diagnosis: Peripheral arterial disease Coronary artery disease Hypertension Hyperlipidemia LUCIA SCHNEIDER MD Apr 24, 2021 13:11
[2021-04-24] MEDS: NS IV 1000 ML 1,000 ML IV SCH ×2 (13:44→23:35)
[2021-04-24] MEDS: inSUlin ASPART (NovoLOG) 1 UNIT/0.01 ML (CHARGE PER UNIT) SC SCH ×2 (17:25→20:30)
[2021-04-24] MEDS: KCL 20 MEQ TAB (K-DUR) PO SCH (17:29)
[2021-04-24] MEDS: CEPHALEXIN 250 MG (KEFLEX) CAP PO SCH (20:08)
[2021-04-24] MEDS: GABAPENTIN 100 MG (NEURONTIN) CAP PO SCH (20:08)
[2021-04-24] MEDS ORDERED: ALLOPURINOL 100 MG (ZYLOPRIM) TAB PO SCH (21:00)
[2021-04-24] MEDS ORDERED: meTOprolol SUCCINATE 100 MG (TOPROL XL) TAB PO SCH (21:00)
[2021-04-24] MEDS ORDERED: PANTOPRAZOLE 40 MG (PROTONIX) TAB PO SCH (21:00)
[2021-04-25 03:56] VITALS: BP 156/90
[2021-04-25 05:06] VITALS: BP 158/70
[2021-04-25 05:17] LABS: HEMATOCRIT 51 % (40-54); HEMOGLOBIN 15.4 g/dL (13.3-17.7); MEAN CORPUSCULAR HEMOGLOBIN 23 pg (25-34); MEAN CORPUSCULAR HGB CONC 30 g/dL (32-36); MEAN CORPUSCULAR VOLUME 78 fL (80-99); MEAN PLATELET VOLUME 10.9 fL (9.0-12.2); PLATELET COUNT 220 10^3/uL (130-400); WHITE BLOOD COUNT 10.5 10^3/uL (4.3-11.0)
[2021-04-25 05:30] LABS: POTASSIUM 3.3 MMOL/L (3.6-5.0)
[2021-04-25 05:31] LABS: CALCIUM 8.9 MG/DL (8.5-10.1)
[2021-04-25 05:35] LABS: CREATININE SERUM 1.48 MG/DL (0.60-1.30)
[2021-04-25] MEDS ORDERED: LOSA25TA41 PO (06:57)
[2021-04-25] MEDS: KCL 20 MEQ TAB (K-DUR) PO SCH (06:58)
--- NOTE | 2021-04-25 06:58 | Discharge Inst-Post CATH ---
Discharge Inst-CATH/EP Problems Reviewed?: Yes Post Cardiac Cath/EP D/C Inst Follow Up/Plan Appointment with Dr Xiao in 2-4 weeks <b>CARDIAC CATH/EP PROCEDURE DISCHARGE INSTRUCTIONS</b> ACTIVITY * Go Home directly and rest. * Limit activity of the leg (or wrist if it was used) for 7 days including aerobics, swimming, jogging, bicycling, etc. * Restrict stair-climbing for 7 days if possible, if not, climb up with your non-cath leg, then bring together on the same step. * Avoid lifting, pushing, pulling or excessive movement of the affected extremity for 7 days. * Customary sexual activity may be resumed after 2 days-use caution not to use a position that strains or causes pain to the affected extremity. * No driving for 24 hours. * NO SMOKING. * Avoid straining for bowel movements for 7 days. * Gentle walking on level ground is allowed. * Returning to work will depend on the type of procedure and the results. Your doctor will discuss this with you. CALL YOUR DOCTOR FOR ANY OF THE FOLLOWING: *If bleeding from the puncture site occurs- Apply gentle pressure to site with clean cloth and call your doctor or EMS. * If a knot or lump forms under the skin, increases in size, or causes pain. * If bruising appears to be worsening or moving further down your leg instead of disappearing. * Temperature above 101 F. CARE OF YOUR GROIN INCISION; * Bruising or purple discoloration of the skin near the puncture site is common. * You may shower only, no bathtub bathing for 5 days. Be careful to avoid slipping as your leg may feel stiff. * If a closure device was used on your femoral artery, please see the attached guide regarding care of the device and your leg. * Leave dressing on FOR 24 hours. CARE OF YOUR WRIST INCISION; * Bruising or purple discoloration of the skin near the puncture site is common. * You may shower. * DO NOT submerge wrist. * Leave dressing on FOR 24 hours. LUCIA XIAO MD Apr 25, 2021 06:58
[2021-04-25] MEDS: inSUlin ASPART (NovoLOG) 1 UNIT/0.01 ML (CHARGE PER UNIT) SC SCH (06:59)
[2021-04-25] MEDS ORDERED: CHLORTHALIDONE 25 MG (HYGROTON) TABLET PO SCH (07:00)
[2021-04-25] MEDS ORDERED: KCL 10 MEQ TAB (MICRO K) PO SCH (07:00)
[2021-04-25] MEDS ORDERED: KCL 20 MEQ TAB (K-DUR) PO ONE (07:00)
[2021-04-25 07:33] VITALS: BP 163/75
[2021-04-25] MEDS: GABAPENTIN 100 MG (NEURONTIN) CAP PO SCH (08:12)
[2021-04-25] MEDS: CEPHALEXIN 250 MG (KEFLEX) CAP PO SCH (08:12)
[2021-04-25] MEDS ORDERED: MAGNESIUM OXIDE (MAG-OX)400 MG TAB PO SCH (09:00)
[2021-04-25] MEDS ORDERED: CLOPIDOGREL 75 MG (PLAVIX) TABLET PO SCH (09:00)
[2021-04-25] MEDS ORDERED: VITAMIN D3 125 MCG (5,000 UNITS) CAPSULE PO SCH (09:00)
[2021-04-25] MEDS ORDERED: ASPIRIN E.C. 81 MG (ECOTRIN) TAB PO SCH (09:00)
[2021-04-25] MEDS ORDERED: OMEGA 3 (FISH OIL) 1000 MG CAP PO SCH (09:00)
[2021-04-25] MEDS ORDERED: NON-FORMULARY MEDICATION 1 EA EA (Alogliptin Benzoate (Alogliptin) 12.5 MG) PO SCH (09:00)
[2021-04-25] MEDS ORDERED: amLODIPine 10 MG (NORVASC) TAB PO SCH (09:00)
[2021-04-25 10:39] VITALS: BP 163/75
--- NOTE | 2021-04-25 10:53 | Cardiology Progress Note ---
Subjective Date Seen by Provider: Apr 25, 2021 Time Seen by Provider: 08:00 Subjective/Events-last exam Patient was seen at bedside, sitting comfortably, feeling better, groin is healing well. No new complaint Review of Systems General: No Chills, No Night Sweats, No Fatigue, No Malaise, No Appetite, No Other HEENT: No Head Aches, No Visual Changes, No Eye Pain, No Ear Pain, No Dysphasia, No Sinus Congestion, No Post Nasal Drip, No Sore Throat, No Other Pulmonary: No Dyspnea, No Cough, No Pleuritic Chest Pain, No Other Cardiovascular: No: Chest Pain, Palpitations, Orthopnea, Paroxysmal Noc. Dyspnea, Edema, Lt Headedness, Other Objective-Cardiology Exam Last Set of Vital Signs Vital Signs 04/25/21 04/25/21 05:06 10:39 Temp 36.6 Pulse 63 Resp 24 B/P (MAP) 163/75 Pulse Ox 97 O2 Delivery Room Air O2 Flow Rate 4.00 Capillary Refill : Less Than 3 Seconds I&O Intake and Output 04/25/21 00:00 Intake Total 1450 ml Output Total 275 ml Balance 1175 ml Intake Oral 450 ml IV Total 1000 ml Output Urine Total 275 ml # Voids 1 Daily Weight Change No General: Alert, Oriented X3, Cooperative HEENT: Atraumatic, PERRLA Neck: Supple, No JVD, No Thyromegaly Lungs: Clear to Auscultation, Normal Air Movement Heart: Regular Rate, Normal S1, Normal S2, No Murmurs Abdomen: Normal Bowel Sounds, Soft, No Tenderness, No Hepatosplenomegaly, No Masses Extremities: No Clubbing, No Cyanosis, No Edema, Normal Pulses, No Tenderness/Swelling Skin: No Rashes, No Breakdown, No Significant Lesion Neuro: Normal Gait, Normal Speech, Strength at 5/5 X4 Ext, Normal Tone, Sensation Intact Psych/Mental Status: Mental Status NL, Mood NL Results Lab Laboratory Tests 04/25/21 04:50 A/P-Cardiology Admission Diagnosis Peripheral arterial disease Nonhealing foot ulcer Hypertension Hyperlipidemia Assessment/Plan Peripheral arterial disease, nonhealing ulcer, status post extensive angiogram and angioplasty as described above 1. Patent stent in the proximal and mid right coronary artery, proximally there is 50% stenosis that has not changed compare to the previous study 2. Moderate to severe stenosis in the first diagonal artery, small artery not amendable to intervention 3. Moderate stenosis in the mid and distal LAD 4. Elevated left ventricular end-diastolic pressure 5. Severe peripheral arterial disease on the left lower extremity with successful balloon angioplasty to the tibioperoneal trunk and peroneal artery, occluded anterior tibial artery with failed attempt for intervention and severe stenosis at the ostial posterior tibial artery with failed attempt for intervention 6. Total occlusion of the right anterior tibial artery with severe stenosis in the right posterior tibial artery Hypertension Hyperlipidemia, monitor lipids I will arrange for follow-up and follow-up as an outpatient, will consider intervention with pedal access or referral to a tertiary care center if the problem persist LUCIA SCHNEIDER MD Apr 25, 2021 10:53
== END 2021-04-25 10:22 ==
LOC: CATH 11:00 → CSD 13:46 → CATH 04-25 10:22
PROVIDERS: ATTEND Internal Medicine Cardiovascular Disease
DX: I25.10 Atherosclerotic heart disease of native coronary artery without angina pectoris (principal); I70.202 Unspecified atherosclerosis of native arteries of extremities, left leg; I10 Essential (primary) hypertension; E78.2 Mixed hyperlipidemia; I65.23 Occlusion and stenosis of bilateral carotid arteries; I77.1 Stricture of artery; E66.01 Morbid (severe) obesity due to excess calories; Z68.31 Body mass index [BMI] 31.0-31.9, adult; Z79.899 Other long term (current) drug therapy; Z79.4 Long term (current) use of insulin; Z87.891 Personal history of nicotine dependence
CPT/HCPCS: 36248; 36415; 71045; 75716; 80048; 80053; 80061; 82947; 85027; 85347; 85610; 85730; 87081; 93458

== ENCOUNTER → 2021-06-05 | Outpatient (CLI) | payer OTHER ==
[~2021-06-05] MED LIST changes: +LOSA25TA41 PO; -NS IV 1000 ML 1,000 ML IV SCH
== END ==
LOC: WOUNDCARE 14:01
PROVIDERS: ATTEND Surgery
DX: I70.242 Atherosclerosis of native arteries of left leg with ulceration of calf (principal); L97.221 Non-pressure chronic ulcer of left calf limited to breakdown of skin; E11.622 Type 2 diabetes mellitus with other skin ulcer
CPT/HCPCS: 99213

== ENCOUNTER → 2021-06-12 | Outpatient (CLI) | payer OTHER | LOC: WOUNDCARE 13:02 | PROVIDERS: ATTEND Surgery | DX: L97.222 Non-pressure chronic ulcer of left calf with fat layer exposed (principal); I70.242 Atherosclerosis of native arteries of left leg with ulceration of calf; E11.622 Type 2 diabetes mellitus with other skin ulcer; I89.0 Lymphedema, not elsewhere classified; E11.52 Type 2 diabetes mellitus with diabetic peripheral angiopathy with gangrene | CPT/HCPCS: 99213 ==

== ENCOUNTER → 2021-06-19 | Outpatient (CLI) | payer OTHER | LOC: WOUNDCARE 15:00 | PROVIDERS: ATTEND Surgery | DX: I96 Gangrene, not elsewhere classified (principal); L97.222 Non-pressure chronic ulcer of left calf with fat layer exposed; I70.242 Atherosclerosis of native arteries of left leg with ulceration of calf; E11.622 Type 2 diabetes mellitus with other skin ulcer; I89.0 Lymphedema, not elsewhere classified | CPT/HCPCS: 99213 ==

== ENCOUNTER → 2021-06-26 | Outpatient (CLI) | payer OTHER | LOC: WOUNDCARE 08:47 | PROVIDERS: ATTEND Surgery | DX: L97.222 Non-pressure chronic ulcer of left calf with fat layer exposed (principal); I70.242 Atherosclerosis of native arteries of left leg with ulceration of calf; E11.622 Type 2 diabetes mellitus with other skin ulcer; I89.0 Lymphedema, not elsewhere classified; E11.52 Type 2 diabetes mellitus with diabetic peripheral angiopathy with gangrene | CPT/HCPCS: 99213 ==

== ENCOUNTER → 2021-07-10 | Outpatient (CLI) | payer OTHER | LOC: WOUNDCARE 12:49 | PROVIDERS: ATTEND Surgery | DX: L97.222 Non-pressure chronic ulcer of left calf with fat layer exposed (principal); I70.242 Atherosclerosis of native arteries of left leg with ulceration of calf; E11.622 Type 2 diabetes mellitus with other skin ulcer; I89.0 Lymphedema, not elsewhere classified; E11.52 Type 2 diabetes mellitus with diabetic peripheral angiopathy with gangrene | CPT/HCPCS: 99213 ==

== ENCOUNTER → 2021-07-18 | Outpatient (CLI) | payer OTHER | LOC: WOUNDCARE 13:25 | PROVIDERS: ATTEND Surgery | DX: I96 Gangrene, not elsewhere classified (principal); L97.222 Non-pressure chronic ulcer of left calf with fat layer exposed; I70.242 Atherosclerosis of native arteries of left leg with ulceration of calf; E11.622 Type 2 diabetes mellitus with other skin ulcer; I89.0 Lymphedema, not elsewhere classified | CPT/HCPCS: 99212 ==

== ENCOUNTER → 2021-08-01 | Outpatient (CLI) | payer OTHER | LOC: WOUNDCARE 12:35 | PROVIDERS: ATTEND Surgery | DX: E11.622 Type 2 diabetes mellitus with other skin ulcer (principal); I96 Gangrene, not elsewhere classified; I87.332 Chronic venous hypertension (idiopathic) with ulcer and inflammation of left lower extremity; L97.221 Non-pressure chronic ulcer of left calf limited to breakdown of skin; I70.242 Atherosclerosis of native arteries of left leg with ulceration of calf; I89.0 Lymphedema, not elsewhere classified | CPT/HCPCS: 29580 ==

== ENCOUNTER → 2021-08-08 | Outpatient (CLI) | payer OTHER | LOC: WOUNDCARE 13:50 | PROVIDERS: ATTEND Surgery | DX: E11.622 Type 2 diabetes mellitus with other skin ulcer (principal); I96 Gangrene, not elsewhere classified; I87.332 Chronic venous hypertension (idiopathic) with ulcer and inflammation of left lower extremity; L97.221 Non-pressure chronic ulcer of left calf limited to breakdown of skin; I70.242 Atherosclerosis of native arteries of left leg with ulceration of calf; I89.0 Lymphedema, not elsewhere classified | CPT/HCPCS: 29580 ==

== ENCOUNTER → 2021-08-14 | Outpatient (CLI) | payer OTHER | LOC: WOUNDCARE 13:15 | PROVIDERS: ATTEND Surgery | DX: E11.622 Type 2 diabetes mellitus with other skin ulcer (principal); I87.332 Chronic venous hypertension (idiopathic) with ulcer and inflammation of left lower extremity; L97.221 Non-pressure chronic ulcer of left calf limited to breakdown of skin; I70.242 Atherosclerosis of native arteries of left leg with ulceration of calf; I89.0 Lymphedema, not elsewhere classified | CPT/HCPCS: 99212 ==

== ENCOUNTER 2022-07-02 10:19 | Day surgery (SDC) | payer OTHER ==
[2022-07-02] VITALS (11 sets, daily range): BP systolic 120–171; BP diastolic 60–82
[~2022-07-02] VITALS: Ht 160 cm; Wt 84.3 kg
[~2022-07-02 10:19] MED LIST changes: -MAGN400T8 PO; +MGX400T PO; -POTA10TA36 PO; +POTA10TA37 PO; -TEST100V3 IM; +TEST100V9 IM
[2022-07-02 10:37] LABS: HEMATOCRIT 52 % (40-54); HEMOGLOBIN 16.3 g/dL (13.3-17.7); MEAN CORPUSCULAR HEMOGLOBIN 25 pg (25-34); MEAN CORPUSCULAR HGB CONC 32 g/dL (32-36); MEAN CORPUSCULAR VOLUME 80 fL (80-99); MEAN PLATELET VOLUME 10.4 fL (9.0-12.2); PLATELET COUNT 235 10^3/uL (130-400); WHITE BLOOD COUNT 10.4 10^3/uL (4.3-11.0)
[2022-07-02 10:42] LABS: BILIRUBIN,URINE NEGATIVE (NEGATIVE); CLARITY,URINE CLEAR; COLOR,URINE YELLOW; GLUCOSE, URINE (UA) TRACE (NEGATIVE); KETONES,URINE NEGATIVE (NEGATIVE); LEUKOCYTE ESTERASE ,URINE NEGATIVE (NEGATIVE); NITRITE,URINE NEGATIVE (NEGATIVE); PH,URINE 7.5 (5-9); PROTEIN,URINE 2+ (NEGATIVE)
[2022-07-02] MEDS ORDERED: NS IV 1000 ML 1,000 ML IV SCH (10:45)
[2022-07-02] MEDS ORDERED: LIDOCAINE 1% INJ 20 ML VIAL ONE (10:46)
[2022-07-02] MEDS ORDERED: NS IV 1000 ML 0 ML ONE (10:46)
[2022-07-02] MEDS ORDERED: HEParin (CATH LAB) 2,000 ML IV ONE (10:46)
[2022-07-02 10:50] LABS: INR 0.9 (0.8-1.4); PROTHROMBIN TIME PATIENT 12.8 SEC (12.2-14.7)
[2022-07-02 10:58] LABS: BACTERIA,URINE NEGATIVE /HPF
[2022-07-02 10:58] LABS: ALBUMIN 4.1 GM/DL (3.2-4.5); BILIRUBIN,TOTAL 0.7 MG/DL (0.1-1.0); CALCIUM 9.7 MG/DL (8.5-10.1); CREATININE SERUM 1.76 MG/DL (0.60-1.30); POTASSIUM 4.2 MMOL/L (3.6-5.0); TOTAL PROTEIN 6.6 GM/DL (6.4-8.2)
--- NOTE | 2022-07-02 11:22 | Cardiac Procedure Note-CS/ASA ---
Pre-Procedure Note Pre-Op Procedure Note Date of Available H&P: Jun 26, 2022 Date H&P Reviewed: Jul 02, 2022 Time H&P Reviewed: : History & Physical: H&P Reviewed, Patient Examed, No changes noted Pre-Operative Diagnosis: Coronary artery disease, peripheral arterial disease Conscious Sedation Pre-Proced Time 11:22 ASA Score 3 For ASA 3 and 4: Consider anesthesia and medical clearance. Also, for patients with a history of failed moderate sedation consider anesthesia. Airway Lungs Heart ASA score ASA 1: a normal healthy patient ASA 2: a patient with a mild systemic disease (mid diabetes, controlled hypertension, obesity x ASA 3: a patient with a severe systemic disease that limits activity (angina, COPD, prior Myocardial infarction) ASA 4: a patient with an incapacitating disease that is a constant threat to life (CHF, renal failure) ASA 5: a moribund patient not expected to survive 24 hrs. (ruptured aneurysm) ASA 6: a declared brain- patient whose organs are being harvested. For emergent operations, add the letter E after the classification Mallampati Classification Grade 3 Sedation Plan Analgesia, Amnesia, Plan communicated to team members, Discussed options with patient/fam, Discussed risks with patient/fam The patient is an appropriate candidate to undergo the planned procedure, sedation, and anesthesia. The patient immediately re-assessed prior to indication. LUCIA SCHNEIDER MD Jul 02, 2022 11:22
[2022-07-02] MEDS ORDERED: fentaNYL INJ 100 MCG/2 ML AMP ONE (11:30)
[2022-07-02] MEDS ORDERED: MIDAZOLAM 5 MG/5 ML (VERSED) VIAL ONE (11:31)
[2022-07-02] MEDS ORDERED: FURO40TA4 PO (11:37)
[2022-07-02] MEDS ORDERED: CALC0.253 PO (11:37)
[2022-07-02] MEDS ORDERED: LOSA25TA41 PO (11:37)
[2022-07-02] MEDS ORDERED: INSU100I14 SQ (11:37)
--- NOTE | 2022-07-02 11:42 | Diagnostic Imaging Report ---
Indication: Peripheral vascular disease Portable chest 11:16 AM Heart size and pulmonary vascularity are normal. Lungs are clear. There are no effusions or pneumothoraces. IMPRESSION: No acute abnormalities in the chest. Dictated by: Dictated on workstation # [id number]
[2022-07-02] MEDS ORDERED: HEParin 1000 UNIT/ML (10ML VIAL) FOR BOLUS ONE (12:01)
[2022-07-02] MEDS ORDERED: NITRO DRIP 25000 MCG/D5W 250 ML IV ONE (12:01)
[2022-07-02] MEDS ORDERED: NS IV 1000 ML 1,000 ML ONE (12:43)
[2022-07-02] MEDS ORDERED: PATIENT MAY USE OWN MEDS, ALL PO SCH (13:15)
[2022-07-02] MEDS ORDERED: CLOPIDOGREL 300 MG (PLAVIX) TABLET PO ONE (13:22)
[2022-07-02] MEDS ORDERED: ASPIRIN 81 MG CHEW (CHILDREN'S ASA) ONE (13:22)
--- NOTE | 2022-07-02 13:24 | Peripheral Report ---
Peripheral Report Physician (s)/Front Counter Attendant (s) Physician LUCIA SCHNEIDER MD Pre-Procedure Diagnosis Pre-Procedure Diagnosis: Coronary artery disease, peripheral arterial disease Post-Procedure Note Procedure Start Date: Jul 02, 2022 Name of Procedure: Bilateral lower extremities runoff Third order Additional imaging WASH PLANT OPERATOR to the left posterior tibial artery WASH PLANT OPERATOR to the left peroneal artery Findings/Procedure Note PROCEDURE NOTE: 76-year-old gentleman with peripheral arterial disease, hypertension, hyperlipidemia and diabetes mellitus. Has been having worsening claudication, had an abnormal THOMAS. Scheduled for peripheral angiogram. After explaining the procedure to the patient, all pros and cons were explained, all questions were answered. The patient signed the consent and then he was placed on the cardiac catheterization laboratory. The patient was placed on the cardiac catheterization laboratory. Groin was prepped SL fashion local anesthesia was used. Sheath placed in the right femoral artery, runoff to the right leg was done with 3 mL of contrast then I used a rim catheter Plaisted at the left common iliac artery and did runoff to the left leg. Patient had subtotal occlusion at the left peroneal and left posterior tibial artery. I had a significantly difficult time advancing a catheter down to the popliteal artery due to the acute angle. After using a rim catheter I continue to lose position when I tried to advance a Storq wire. I used command 18 wire then I advanced a mini catheter over the command 18 to the left common femoral artery then I used command 14 and advanced it and then advanced the catheter over the command 14 to the distal SFA. Did DSA imaging which was insufficient I decided to exchange the catheter over command 18 and using long straight catheter I advanced it and placed it at the popliteal artery and did DSA imaging patient appears to have a total occlusion of the left posterior tibial and peroneal artery. Patient received a total of 7000 units of heparin, multiple doses of nitroglycerin were given Storq wire was placed then the sheath was exchanged and use long 6 [place] sheath. Then I advanced a command 18 wire in the posterior tibial artery and did [place] 2.5 x 40 mm. Exchanged the wire while the balloon in the artery and used command 14 and I used [place] fourteen 3 x 100 with multiple inflation the posterior tibial artery appeared significantly improved, there was a lesion in the ostium of the peroneal artery. I was unable to cross it with the command 14, I used whisper and advance it in the peroneal artery and advanced the balloon in the peroneal artery and did single inflation for over a minute retracted the balloon I was satisfied with the results with excellent resolution of the severe stenosis in the ostium of the peroneal and the posterior tibial sheath blood pressure was measured and I pulled back to the common iliac and there was no significant gradient. There were multiple small lesions in the left SFA nonobstructive disease. The sheath was exchanged into a short 6 [place] sheath and site was closed with closure device. FINDINGS: Right lower extremity, mild to moderate disease down to the trifurcation with slow flow below the trifurcation due to small vessel disease Left lower extremity: There was severely acute angle at the aortic bifurcation which made the procedure more challenging Left common femoral and common iliac artery has mild disease nonobstructive disease Left SFA has mild to moderate disease in the mid and distal nonobstructive disease Left anterior tibial artery is small artery with diffuse disease, patent artery Left posterior tibial artery is subtotally occluded successful balloon angioplasty using [place] 3 x 100 with excellent results Left peroneal artery is subtotally occluded with successful balloon angioplasty using [place] 3 x 100 with excellent results. CONCLUSIONS: 1. Subtotal occlusion of the left posterior tibial artery and peroneal artery with successful balloon angioplasty with [place] 3 x 100 with excellent results 2. The left anterior tibial artery is small artery with moderate diffuse disease distally there was severe stenosis. 3. Mild to moderate stenosis in the left SFA and common femoral artery 4. Mild to moderate stenosis in the right SFA down to the trifurcation DISCUSSION AND RECOMMENDATIONS: Continue to maximize medical therapy Anesthesia Type: Conscious Sedation Estimated blood loss (mL): 30 ml Contrast Amount: 50 ml Total Radiation Dose: 627 mGy Post-Procedure Diagnosis Post-operative diagnosis: Peripheral arterial disease Claudication Hypertension Hyperlipidemia Diabetes mellitus LUCIA SCHNEIDER MD Jul 02, 2022 13:24
[2022-07-02] MEDS: NS IV 1000 ML 1,000 ML IV SCH ×2 (14:54→23:17)
[2022-07-02] MEDS: PANTOPRAZOLE 40 MG (PROTONIX) TAB PO SCH (17:17)
[2022-07-02] MEDS ORDERED: NON-FORMULARY MEDICATION 1 EA EA (Insulin Aspart (Novolog Flexpen) 25 UNITS) SQ SCH (18:00)
[2022-07-02] MEDS: KCL 10 MEQ TAB (MICRO K) PO SCH (19:14)
[2022-07-02] MEDS: inSUlin ASPART (NovoLOG) 1 UNIT/0.01 ML (CHARGE PER UNIT) SC SCH (20:07)
[2022-07-02] MEDS ORDERED: inSUlin ASPART (NovoLOG) 1 UNIT/0.01 ML (CHARGE PER UNIT) SC SCH (21:00)
[2022-07-02] MEDS ORDERED: POTASSIUM CHLORIDE 30 MEQ PO SCH (21:00)
[2022-07-02] MEDS ORDERED: NON-FORMULARY MEDICATION 1 EA EA (Insulin Aspart (Novolog Flexpen) 30 UNITS) SQ SCH (21:00)
[2022-07-02] MEDS ORDERED: NON-FORMULARY MEDICATION 1 EA EA (Insulin Glargine,Hum.rec.anlog (Lantus Solostar) 50 UNIT SQ SCH (21:00)
[2022-07-02] MEDS ORDERED: meTOprolol SUCCINATE 100 MG (TOPROL XL) TAB PO SCH (21:00)
[2022-07-02] MEDS: GABAPENTIN 100 MG (NEURONTIN) CAP PO SCH (21:22)
[2022-07-03 03:00] VITALS: BP_SYST 158; BP_SYST 172; BP_DIAS 68; BP_DIAS 70
[2022-07-03 05:10] LABS: HEMATOCRIT 48 % (40-54); MEAN CORPUSCULAR HEMOGLOBIN 25 pg (25-34); MEAN CORPUSCULAR HGB CONC 31 g/dL (32-36); MEAN CORPUSCULAR VOLUME 81 fL (80-99); MEAN PLATELET VOLUME 10.6 fL (9.0-12.2); PLATELET COUNT 213 10^3/uL (130-400); WHITE BLOOD COUNT 9.4 10^3/uL (4.3-11.0)
[2022-07-03 05:26] LABS: CREATININE SERUM 1.64 MG/DL (0.60-1.30)
--- NOTE | 2022-07-03 06:03 | Discharge Inst-Post CATH ---
Discharge Inst-CATH/EP Problems Reviewed?: Yes Post Cardiac Cath/EP D/C Inst Follow Up/Plan Appointment with Dr Xiao in 2 weeks <b>CARDIAC CATH/EP PROCEDURE DISCHARGE INSTRUCTIONS</b> ACTIVITY * Go Home directly and rest. * Limit activity of the leg (or wrist if it was used) for 7 days including aerobics, swimming, jogging, bicycling, etc. * Restrict stair-climbing for 7 days if possible, if not, climb up with your non-cath leg, then bring together on the same step. * Avoid lifting, pushing, pulling or excessive movement of the affected extremity for 7 days. * Customary sexual activity may be resumed after 2 days-use caution not to use a position that strains or causes pain to the affected extremity. * No driving for 24 hours. * NO SMOKING. * Avoid straining for bowel movements for 7 days. * Gentle walking on level ground is allowed. * Returning to work will depend on the type of procedure and the results. Your doctor will discuss this with you. CALL YOUR DOCTOR FOR ANY OF THE FOLLOWING: *If bleeding from the puncture site occurs- Apply gentle pressure to site with clean cloth and call your doctor or EMS. * If a knot or lump forms under the skin, increases in size, or causes pain. * If bruising appears to be worsening or moving further down your leg instead of disappearing. * Temperature above 101 F. CARE OF YOUR GROIN INCISION; * Bruising or purple discoloration of the skin near the puncture site is common. * You may shower only, no bathtub bathing for 5 days. Be careful to avoid slipping as your leg may feel stiff. * If a closure device was used on your femoral artery, please see the attached guide regarding care of the device and your leg. * Leave dressing on FOR 24 hours. CARE OF YOUR WRIST INCISION; * Bruising or purple discoloration of the skin near the puncture site is common. * You may shower. * DO NOT submerge wrist. * Leave dressing on FOR 24 hours. LUCIA XIAO MD Jul 03, 2022 06:03
[2022-07-03 08:00] VITALS: BP 167/72
--- NOTE | 2022-07-03 08:07 | Cardiology Progress Note ---
Subjective Date Seen by Provider: Jul 03, 2022 Time Seen by Provider: 08:06 Subjective/Events-last exam Patient was seen at bedside, laying down comfortably, feeling better. No new complaint Groin is healing well Review of Systems General: No Chills, No Night Sweats, No Fatigue, No Malaise, No Appetite, No Other HEENT: No Head Aches, No Visual Changes, No Eye Pain, No Ear Pain, No Dysphasia, No Sinus Congestion, No Post Nasal Drip, No Sore Throat, No Other Pulmonary: No Dyspnea, No Cough, No Pleuritic Chest Pain, No Other Cardiovascular: No: Chest Pain, Palpitations, Orthopnea, Paroxysmal Noc. Dyspnea, Edema, Lt Headedness, Other Objective-Cardiology Exam Last Set of Vital Signs Vital Signs 07/02/22 07/03/22 07/03/22 22:55 03:00 07:00 Temp 36.6 Pulse 64 Resp 18 B/P (MAP) 172/70 (104) 158/68 (98) Pulse Ox 91 O2 Delivery Room Air O2 Flow Rate 2.00 I&O Intake and Output 07/03/22 00:00 Intake Total 2150 ml Output Total 250 ml Balance 1900 ml Intake Oral 150 ml IV Total 2000 ml Output Urine Total 250 ml Daily Weight Change No General: Alert, Oriented X3, Cooperative HEENT: Atraumatic, PERRLA Neck: Supple, No JVD, No Thyromegaly Lungs: Clear to Auscultation, Normal Air Movement Heart: Regular Rate, Normal S1, Normal S2, No Murmurs Abdomen: Normal Bowel Sounds, Soft, No Tenderness, No Hepatosplenomegaly, No Masses Extremities: No Clubbing, No Cyanosis, No Tenderness/Swelling, Other (Diminished pulse, edema) Skin: No Rashes, No Breakdown, No Significant Lesion Neuro: Normal Gait, Normal Speech, Strength at 5/5 X4 Ext, Normal Tone, Sensation Intact Psych/Mental Status: Mental Status NL, Mood NL Results Lab Laboratory Tests 07/02/22 10:33 07/03/22 05:00 A/P-Cardiology Admission Diagnosis Claudication Peripheral arterial disease Hypertension Hyperlipidemia. Assessment/Plan Peripheral arterial disease, status post balloon angioplasty to the left posterior tibial artery and peroneal artery. Diffuse disease in the anterior tibial artery on the left. Mild to moderate disease in the SFA Reporting improvement in the muscle cramps. I will start him on cardiac rehab program Hypertension, continue on current medication monitor blood pressure Hyperlipidemia, monitor lipids Diabetes mellitus. LUCIA SCHNEIDER MD Jul 03, 2022 08:07
[2022-07-03] MEDS: inSUlin ASPART (NovoLOG) 1 UNIT/0.01 ML (CHARGE PER UNIT) SC SCH (08:35)
[2022-07-03] MEDS: PANTOPRAZOLE 40 MG (PROTONIX) TAB PO SCH (08:36)
[2022-07-03] MEDS: KCL 10 MEQ TAB (MICRO K) PO SCH (08:38)
[2022-07-03] MEDS: GABAPENTIN 100 MG (NEURONTIN) CAP PO SCH (08:46)
[2022-07-03] MEDS ORDERED: amLODIPine 10 MG (NORVASC) TAB PO SCH (09:00)
[2022-07-03] MEDS ORDERED: LOSARTAN 25 MG (COZAAR) TAB PO SCH (09:00)
[2022-07-03] MEDS ORDERED: VIT D3 PO SCH (09:00)
[2022-07-03] MEDS ORDERED: ALLOPURINOL 100 MG (ZYLOPRIM) TAB PO SCH (09:00)
[2022-07-03] MEDS ORDERED: OMEGA 3 (FISH OIL) 1000 MG CAP PO SCH (09:00)
[2022-07-03] MEDS ORDERED: FUROSEMIDE 40 MG (LASIX) TAB PO SCH (09:00)
[2022-07-03] MEDS ORDERED: NON-FORMULARY MEDICATION 1 EA EA (Cholecalciferol (Vitamin D3) (Vitamin D3) 125 MCG) PO SCH (09:00)
[2022-07-03] MEDS ORDERED: ASPIRIN E.C. 81 MG (ECOTRIN) TAB PO SCH ×2 (09:00)
[2022-07-03] MEDS ORDERED: CLOPIDOGREL 75 MG (PLAVIX) TABLET PO SCH ×2 (09:00)
[2022-07-03] MEDS ORDERED: CALCITRIOL 0.25 MCG (ROCALTROL) CAPSULE PO SCH ×2 (09:00)
[2022-07-03] MEDS ORDERED: NON-FORMULARY MEDICATION 1 EA EA (Chlorthalidone 25 MG) PO SCH (09:00)
[2022-07-03] MEDS ORDERED: CHLORTHALIDONE 25 MG TAB PO SCH (09:00)
[2022-07-03] MEDS ORDERED: ALOGLIPTIN 12.5 MG PO SCH (09:00)
[2022-07-03] MEDS ORDERED: MAGNESIUM OXIDE (MAG-OX)400 MG TAB PO SCH (09:00)
== END 2022-07-03 09:15 | disposition home or self-care (01) ==
LOC: CATH 10:19 → CSD 13:30 → CATH 07-03 09:15
PROVIDERS: ATTEND Internal Medicine Cardiovascular Disease
DX: I25.10 Atherosclerotic heart disease of native coronary artery without angina pectoris (principal); I70.212 Atherosclerosis of native arteries of extremities with intermittent claudication, left leg; E11.9 Type 2 diabetes mellitus without complications; E78.2 Mixed hyperlipidemia; I65.29 Occlusion and stenosis of unspecified carotid artery
CPT/HCPCS: 36248; 36415; 71045; 75716; 80048; 80053; 80061; 81000; 82947; 85027; 85610; 85730; 93005

== ENCOUNTER 2022-09-26 13:06 | Emergency (ER) | payer OTHER ==
[~2022-09-26] VITALS: Ht 162.6 cm; Wt 90.7 kg
[~2022-09-26 13:06] MED LIST changes: +CALC0.253 PO; +FURO40TA4 PO; +POTA-177 PO; -POTA10TA37 PO
--- NOTE | 2022-09-26 13:28 | ED Neurological Problem ---
General Chief Complaint: Neurological Problems Stated Complaint: STROKE-LIKE SYMPTOMS Nursing Triage Note: PT AMB TO RM 7 W C/O L SIDED FACIAL DROOP SX THURSDAY. PT REPORTS HE CALLED HIS PCP DR. LUJAN AND WAS ADVISED TO GO TO ED. PT HAS NO OTHER DEFICITS, DENIES PAIN, A&OX4. Source: patient, family (wayue) Exam Limitations: no limitations History of Present Illness Date Seen by Provider: Sep 26, 2022 Time Seen by Provider: 13:20 Initial Comments Patient is a 76-year-old male with a history of coronary artery disease, peripheral vascular disease, diabetes and chronic kidney disease who presents to the emergency room with a chief complaint of left-sided facial droop. Patient states he noticed the drooping about 2 days ago when he woke up from sleep on Thursday morning. He denies any other unilateral numbness, weakness or tingling. He occasionally has headaches. No recent illnesses such as fevers, chills, COVID concerns. No GI illnesses recently. He has had his Shingrix vaccine. He states that he called his primary care physician's office, Dr. Lujan and was told to come to the emergency room for evaluation. He states he has a little bit of visual disturbance. He notes that his eye does not close completely. He states that he cannot taste normally and this has been present for years so cannot comment on loss of taste of the anterior two thirds of his tongue. No recent traumas or falls or head injury. It is not getting any better or any worse over the last 2 days. became concerned today and encouraged him to come to the emergency department. All other review of systems reviewed and negative except as stated. Timing/Duration: other (2d) Severity: moderate Associated Symptoms: weakness (left face) Allergies and Home Medications Allergies Coded Allergies: lisinopril (Verified Adverse Reaction, Unknown, affects kidneys, 07/02/22) metformin (Verified Adverse Reaction, Unknown, affects kidneys, 07/02/22) Patient Home Medication List Home Medication List Reviewed: Yes Allopurinol (Allopurinol) 100 Mg Tablet, 100 MG PO DAILY, (Reported) Entered as Reported by: BERTIN BRADSHAW on 04/18/20 2068 Alogliptin Benzoate (Alogliptin) 12.5 Mg Tablet, 12.5 MG PO DAILY, (Reported) Entered as Reported by: KATIE RUTH on 04/18/20 1016 Amlodipine Besylate (Amlodipine Besylate) 10 Mg Tablet, 10 MG PO DAILY, (Reported) Entered as Reported by: BERTIN BRADSHAW on 04/18/20 1508 Aspirin (Aspirin EC) 81 Mg Tablet.dr, 81 MG PO DAILY, (Reported) Entered as Reported by: BERTIN BRADSHAW on 04/24/21 1045 Atorvastatin Calcium (Atorvastatin Calcium) 20 Mg Tablet, 20 MG PO HS, (Reported) Entered as Reported by: MIS PARSONS on 08/19/17 1406 Calcitriol (Calcitriol) 0.25 Mcg Capsule, 0.25 MCG PO DAILY, (Reported) Entered as Reported by: ESPINOZA BRYAN on 07/02/22 1137 Chlorthalidone (Chlorthalidone) 25 Mg Tablet, 25 MG PO DAILY, (Reported) Entered as Reported by: KATIE RUTH on 04/18/20 1016 Cholecalciferol (Vitamin D3) (Vitamin D3) 125 Mcg Capsule, 125 MCG PO DAILY, (Reported) Entered as Reported by: BERTIN BRADSHAW on 04/24/21 1045 Clopidogrel Bisulfate (Clopidogrel) 75 Mg Tablet, 75 MG PO DAILY, (Reported) Entered as Reported by: BERTIN BRADSHAW on 04/24/21 1045 Furosemide (Furosemide) 40 Mg Tablet, 40 MG PO DAILY, (Reported) Entered as Reported by: ESPINOZA BRYAN on 07/02/22 1137 Gabapentin (Gabapentin) 100 Mg Capsule, 200 MG PO BID, (Reported) Entered as Reported by: MIS PARSONS on 08/19/17 1406 Insulin Aspart (Novolog Flexpen) 100 Unit/Ml (3 Ml) Solution, 25 UNITS SQ TIDWM, (Reported) Entered as Reported by: KATIE RUTH on 04/18/20 1016 Insulin Aspart (Novolog Flexpen) 100 Unit/Ml (3 Ml) Solution, 30 UNITS SQ HS, (Reported) Entered as Reported by: ESPINOZA BRYAN on 07/02/22 1137 Insulin Glargine,Hum.rec.anlog (Lantus Solostar) 100 Unit/1 Ml Insuln.pen, 50 UNIT SQ HS, (Reported) Entered as Reported by: BERTIN BRADSHAW on 04/18/20 1508 Losartan Potassium (Losartan Potassium) 25 Mg Tablet, 25 MG PO DAILY, (Reported) Entered as Reported by: ESPINOZA BRYAN on 07/02/22 1137 Magnesium Oxide (Magnesium Oxide) 400 Mg Tablet, 400 MG PO DAILY, (Reported) Entered as Reported by: MIS PARSONS on 08/20/17 0848 Metoprolol Succinate (Metoprolol Succinate) 100 Mg Tab.er.24h, 100 MG PO HS, (Reported) Entered as Reported by: BERTIN BRADSHAW on 04/24/21 1045 [place]-3 Fatty Acids/Fish Oil (Fish Oil 1,000 mg Softgel) 1 Each Capsule, 1,000 MG PO DAILY, (Reported) Entered as Reported by: MIS PARSONS on 08/20/17 0844 Pantoprazole Sodium (Pantoprazole Sodium) 40 Mg Tablet.dr, 40 MG PO BID, (Reported) Entered as Reported by: BERTIN BRADSHAW on 04/24/21 1049 Potassium Chloride (Potassium Chloride) 10 Meq Tab.er.prt, 30 MEQ PO BID, (Reported) Entered as Reported by: BERTIN BRADSHAW on 04/18/20 1508 Tramadol HCl (Tramadol HCl) 50 Mg Tablet, 100 MG PO BID PRN for PAIN-MILD TO MODERATE, (Reported) Entered as Reported by: MIS PARSONS on 08/19/17 1442 Review of Systems Review of Systems Constitutional: see HPI Eyes: Other (left eye discomfort) Ears, Nose, Mouth, Throat: no symptoms reported Respiratory: no symptoms reported Cardiovascular: no symptoms reported Gastrointestinal: no symptoms reported Genitourinary: no symptoms reported Musculoskeletal: no symptoms reported Skin: no symptoms reported Psychiatric/Neurological: Other (facial weakness left) All Other Systems Reviewed Negative Unless Noted: Yes Past Xnvdbwz-Yuhyeh-Kaymru Hx Patient Social History Tobacco Use?: No Use of E-Cig and/or Vaping dev: No Substance use?: No Alcohol Use?: No Immunizations Up To Date Tetanus Booster (TDap): Unknown First/Initial COVID19 Vaccinat: 2020 Second COVID19 Vaccination Aime: 2020 Third COVID19 Vaccination Date: 2020 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: Egodeus, ExtraOrtho X1 Seasonal Allergies Seasonal Allergies: Yes Past Medical History Surgery/Hospitalization HX: foot, knee, shoulder, back sx HTN, CKD STAGE 3, DM Coronary Stent, Eye Surgery, Tonsillectomy Respiratory: Yes Sleep Apnea Currently Using CPAP: No Cardiac: Yes Coronary Artery Disease, High Cholesterol, Hypertension Neurological: No Reproductive Disorders: No Sexually Transmitted Disease: No Renal Failure Gastrointestinal: Yes Gastroesophageal Reflux, Irritable Bowel Arthritis, Chronic Back Pain, Fractures Diabetes, 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 0.0oz. 68.441000oz; 34.00 BMI Method:Stated General Appearance: WD/WN, no apparent distress HEENT: PERRL/EOMI, TMs normal, pharynx normal Neck: non-tender, supple, normal inspection Respiratory: lungs clear, normal breath sounds, no respiratory distress, no accessory muscle use Cardiovascular: regular rate, rhythm Gastrointestinal: normal bowel sounds, soft Extremities: normal range of motion, normal inspection, pedal edema (left greater than right (mild)) Neurologic/Psychiatric: alert, normal mood/affect, oriented x 3; No EOM palsy; facial droop, motor weakness (left facial); No sensory deficit; other (extremities normal m/s; normal finger to nose; no pronator drift) Crainal Nerves: normal speech, PERRL; No abnormal eye position, No abnormal speech; facial asymmetry, facial droop; No facial paresthesias; facial weakness (left); No gaze palsy, No tongue deviation to R, No tongue deviation to L Coordination/Gait: normal finger to nose Motor/Sensory: no motor deficit Skin: normal color, warm/dry Stroke Onset of Symptoms Date of Onset of Symptoms: Sep 24, 2022 Onset of Symptoms: Yes Symptoms onset unknown: No NIH Stroke Scale Assessment Select: Initial Level of Consciousness: 0=Alert (0), Level of Consciousness- Questions: 0=Answers both month/age (0), LOC Commands: 0=Performs both tasks (0), Gaze: Normal (0), Visual Pollack: 0=No visual loss (0), Facial Movement (Facial Paresis): 2=Partial paralysis (2), Motor Function-Arms Right: 0=No drift (0), Motor Function-Arms Left: 0=No drift (0), Motor Function-Legs Right: 0=No drift (0), Motor Function-Legs Left: 0=No drift (0), Limb Ataxia: 0=Absent (0), Sensory: 0=Normal:no loss (0), Best Language: 0=No aphasia (0), Dysarthria: 0=Normal (0), Extinction & Inattention: 0=No abnormality (0), Total: 2 Stroke Thrombolytic Exclusion Age 18 or Over: Yes Acute intenal hemorrhage: No History of CVA: No Uncontrolled Coagulation Defec: No Intracranial Hemorrhage: No Severe Hypertension: No GI or Bleed: No Subarachnoid Hemorrhage: No Intracranial Neoplasm/Aneurysm: No Oral Anticoagulants: Yes Surgery or Trauma: No Puncture of Non-Compressible V: No Recent CPR: No Diabetic Hemorrhagic Retinopat: No Organ Biopsy: No Recent Obstetric Delivery: No Glucose: No NIH Stoke Scale >22: No Bacterial Endocarditis: No Pericarditis: No Improving Symptoms: No TPA Contraindication: Yes IV - TPa Received IV - TPa Procedure Performed?: No Progress/Results/Core Measures Results/Orders My Orders Orders - ASIA SPENCE MD Ct Head Wo (09/26/22 13:29) Vital Signs/I&O 09/26/22 13:09 Temp 36.6 Pulse 67 Resp 20 B/P (MAP) 197/88 (124) Pulse Ox 98 O2 Delivery Room Air Blood Pressure Mean: 124 Progress Progress Note : Time: 15:24 Progress Note Patient seen and examined, complains of left-sided facial drooping. X2 days. No other focal neurologic deficit other than the left facial droop. No headache. No trauma. Evaluation today includes physical exam with neurologic exam. Concern for acute cerebrovascular accident. However secondary to isolated 7th cranial nerve palsy on the left only CT head without contrast was done. (NIH 2 due to facial paresis on the left) Consideration for basic laboratory studies. No complaints of illness to warrant extensive laboratory t esting. Patient CT was negative for any evidence of infarct, only chronic microvascular changes noted by the radiologist. Will not start him on oral prednisone secondary to his chronic kidney disease and diabetes. We will start him on Valtrex 1000 mg twice daily due to creatinine clearance of 48. Recommend follow-up with Dr. Lujan in 1 to 2 weeks. Advised Lacri-Lube and eye patching at night. Return precautions provided. Patient verbalized understanding. All questions are sought and answered. Patient is stable for discharge. Diagnostic Imaging Diagonstic Imaging: CT Comments [facility], [place] NAME: SIMI COVARRUBIAS [facility] REC#: [id number] PT STATUS: REG ER : 1945 PHYSICIAN: ASIA SPENCE MD ADMIT DATE: 09/26/22/ER Draft Date of Exam:09/26/22 CT HEAD WO PROCEDURE: CT head without contrast. TECHNIQUE: Multiple contiguous axial images were obtained through the brain without the use of intravenous contrast. Auto Exposure Controls were utilized during the CT exam to meet ALARA standards for radiation dose reduction. INDICATION: Left-sided facial droop. COMPARISON: No prior studies are available for comparison. Ventricles and sulci are consistent with the patient's age. Patchy areas of low-attenuation in the periventricular and subcortical regions are noted consistent with chronic microvascular ischemia. No sulcal effacement or midline shift is identified. No acute intra-axial or extra-axial hemorrhage is detected. Cisterns are patent. Visualized paranasal sinuses are clear. IMPRESSION: Changes of chronic microvascular ischemia. No acute intracranial process is detected. Dictated on workstation # [id number] Dict: 09/26/22 1418 Trans: 09/26/22 1421 [facility] [id number] Interpreted by: SHERRI POLANCO MD Electronically signed by: Departure Impression Primary Impression: Juarez's palsy Disposition: 01 HOME, SELF-CARE Condition: Stable Departure-Patient Inst. Decision time for Depature: 15:26 Referrals: NELLA LUJAN DO (PCP/Family) Primary Care Physician Patient Instructions: Juarez's Palsy (DC) Add. Discharge Instructions: Start taking valacyclovir 1000 mg twice daily for 5 days. You have been given your first dose this afternoon You will need to tape your left eye shut at night. Please get some [id number]-lfprarp Lacri-Lube eye wetting ointment/drops. Use this at night before you tape your eye shut. Please call your primary care physician's office for an appointment in 1 to 2 weeks. If you have any new, concerning symptoms especially weakness in 1 arm over the other or 1 leg over the other, speech changes, vision changes or any other emergent concerns please come back to the emergency room for reevaluation. Scripts Valacyclovir HCl (Valacyclovir) 1,000 Mg Tablet 1000 MG PO BID for 7 Days, #13 TAB Prov: ASIA SPENCE MD 09/26/22 Copy Copies To 1: NELLA LUJAN KATHRYN M MD Sep 26, 2022 13:28
--- NOTE | 2022-09-26 14:21 | Diagnostic Imaging Report ---
PROCEDURE: CT head without contrast. TECHNIQUE: Multiple contiguous axial images were obtained through the brain without the use of intravenous contrast. Auto Exposure Controls were utilized during the CT exam to meet ALARA standards for radiation dose reduction. INDICATION: Left-sided facial droop. COMPARISON: No prior studies are available for comparison. Ventricles and sulci are consistent with the patient's age. Patchy areas of low-attenuation in the periventricular and subcortical regions are noted consistent with chronic microvascular ischemia. No sulcal effacement or midline shift is identified. No acute intra-axial or extra-axial hemorrhage is detected. Cisterns are patent. Visualized paranasal sinuses are clear. IMPRESSION: Changes of chronic microvascular ischemia. No acute intracranial process is detected. Dictated by: Dictated on workstation # [id number]
[2022-09-26] MEDS ORDERED: VALACYCLOVIR 500 MG TAB (VALTREX) PO STA (15:19)
[2022-09-26] MEDS ORDERED: VALA10007 PO (15:29)
[2022-09-26 15:45] VITALS: BP 134/82
== END 2022-09-26 15:45 | disposition home or self-care (01) ==
LOC: EDUNIT# 13:06 → ER 13:08
DX: G51.0 Bell's palsy (principal); E11.9 Type 2 diabetes mellitus without complications; Z79.4 Long term (current) use of insulin
CPT/HCPCS: 70450

== ENCOUNTER 2022-12-02 17:30 | Observation (INO) | payer OTHER, MEDICARE ==
[~2022-12-02] VITALS: Ht 163 cm; Wt 83.9 kg
[~2022-12-02 17:30] MED LIST changes: -OMEG1CAP13 PO; +OMEG1CAP33 PO; +VALA10007 PO
[2022-12-02 18:01] LABS: BASOPHILS # (AUTO) 0.1 10^3/uL (0.0-0.1); BASOPHILS % (AUTO) 1 % (0-10); EOSINOPHILS # (AUTO) 0.1 10^3/uL (0.0-0.3); EOSINOPHILS % (AUTO) 1 % (0-10); HEMATOCRIT 53 % (40-54); LYMPHOCYTES # (AUTO) 0.6 10^3/uL (1.0-4.0); LYMPHOCYTES % (AUTO) 3 % (12-44); MEAN CORPUSCULAR HEMOGLOBIN 24 pg (25-34); MEAN CORPUSCULAR HGB CONC 30 g/dL (32-36); MEAN CORPUSCULAR VOLUME 80 fL (80-99); MONOCYTES # (AUTO) 0.8 10^3/uL (0.0-1.0); MONOCYTES % (AUTO) 4 % (0-12); NEUTROPHILS # (AUTO) 16.8 10^3/uL (1.8-7.8); NEUTROPHILS % (AUTO) 91 % (42-75); PLATELET COUNT 276 10^3/uL (130-400); WHITE BLOOD COUNT 18.6 10^3/uL (4.3-11.0)
[2022-12-02 18:07] LABS: ALBUMIN 4.1 GM/DL (3.2-4.5)
[2022-12-02 18:09] LABS: CALCIUM 9.3 MG/DL (8.5-10.1)
[2022-12-02 18:12] LABS: BILIRUBIN,TOTAL 0.6 MG/DL (0.1-1.0)
[2022-12-02 18:14] LABS: CREATININE SERUM 1.83 MG/DL (0.60-1.30)
--- NOTE | 2022-12-02 18:26 | Diagnostic Imaging Report ---
INDICATION: Syncopal episode. Time of Exam: 6:08 PM Correlation is made with prior chest of 07/02/2022. FINDINGS: The heart size is normal. The pulmonary vascularity is unremarkable. The lungs are clear. No infiltrate, effusion or pneumothorax is detected. IMPRESSION: No acute cardiopulmonary process is detected. Dictated by: Dictated on workstation # [id number]
[2022-12-02 18:41] LABS: ANISOCYTOSIS SLIGHT; LYMPHOCYTES % (MANUAL) 6 %; MONOCYTES % (MANUAL) 5 %; NEUTROPHILS % (MANUAL) 89 %
--- NOTE | 2022-12-02 19:15 | ED Syncope ---
General Chief Complaint: Dizziness/Syncope Stated Complaint: SYNCOPE Nursing Triage Note: PT TO RM 5 BY EMS WITH CC OF SYNCOPAL EPISODE AROUND 1600 TODAY. EMS REPORTS THEY FOUND PT ON THE FLOOR AT HOME WITH A BS OF 63. EMS STATES THEY GAVE 100MLS OF D-10 EN ROUTE WHICH BROUGHT HIS BS UP TO 153. PT UNABLE TO RECALL EVENT AT THIS TIME. UNK IF HE HIT HIS HEAD AND BELIEVES HE LOC. PT A&OX4. PT DENIES PAIN Source of Information: Patient, EMS History of Present Illness Date Seen by Provider: Dec 02, 2022 Time Seen by Provider: 17:40 Initial Comments Patient is a 77-year-old male who presents to the emergency department via EMS after a syncopal episode at home at 4:00 today. EMS state patient was found at home on the floor with a blood sugar of 63. Patient was given bolus of D10 in route with subsequent improvement in blood sugar to 153. Patient does not remember syncopizing. He states he remembers sitting but reportedly stood up to walk to the bathroom when the syncope occurred. Patient states he had an episode of near syncope last night. Denies any history of recurrent similar symptoms. Denies any pain at this time. Specifically denies any chest pain. Also denies any shortness of air or focal weakness/numbness. Patient does have a history of diabetes for which she takes several medications. Patient denies any improper dosing of the medication today. States he last took his sliding scale insulin this morning and has had none since. Allergies and Home Medications Allergies Coded Allergies: lisinopril (Verified Adverse Reaction, Unknown, affects kidneys, 07/02/22) metformin (Verified Adverse Reaction, Unknown, affects kidneys, 07/02/22) Patient Home Medication List Home Medication List Reviewed: Yes Allopurinol (Allopurinol) 100 Mg Tablet, 100 MG PO DAILY, (Reported) Entered as Reported by: BERTIN BRADSHAW on 04/18/20 1508 Alogliptin Benzoate (Alogliptin) 12.5 Mg Tablet, 12.5 MG PO DAILY, (Reported) Entered as Reported by: KATIE RUTH on 04/18/20 1016 Amlodipine Besylate (Amlodipine Besylate) 10 Mg Tablet, 10 MG PO DAILY, ( Reported) Entered as Reported by: BERTIN BRADSHAW on 04/18/20 1508 Aspirin (Aspirin EC) 81 Mg Tablet.dr, 81 MG PO DAILY, (Reported) Entered as Reported by: BERTIN BRADSHAW on 04/24/21 1045 Atorvastatin Calcium (Atorvastatin Calcium) 20 Mg Tablet, 20 MG PO HS, (Reported) Entered as Reported by: MIS PARSONS on 08/19/17 1406 Calcitriol (Calcitriol) 0.25 Mcg Capsule, 0.25 MCG PO DAILY, (Reported) Entered as Reported by: ESPINOZA BRYAN on 07/02/22 1137 Chlorthalidone (Chlorthalidone) 25 Mg Tablet, 25 MG PO DAILY, (Reported) Entered as Reported by: KATIE RUTH on 04/18/20 1016 Cholecalciferol (Vitamin D3) (Vitamin D3) 125 Mcg Capsule, 125 MCG PO DAILY, (Reported) Entered as Reported by: BERTIN BRADSHAW on 04/24/21 1045 Clopidogrel Bisulfate (Clopidogrel) 75 Mg Tablet, 75 MG PO DAILY, (Reported) Entered as Reported by: BERTIN BRADSHAW on 04/24/21 1045 Furosemide (Furosemide) 40 Mg Tablet, 40 MG PO DAILY, (Reported) Entered as Reported by: ESPINOZA BRYAN on 07/02/22 1137 Gabapentin (Gabapentin) 100 Mg Capsule, 200 MG PO BID, (Reported) Entered as Reported by: MIS PARSONS on 08/19/17 1406 Insulin Aspart (Novolog Flexpen) 100 Unit/Ml (3 Ml) Solution, 25 UNITS SQ TIDWM, (Reported) Entered as Reported by: KATIE RUTH on 04/18/20 1016 Insulin Aspart (Novolog Flexpen) 100 Unit/Ml (3 Ml) Solution, 30 UNITS SQ HS, (Reported) Entered as Reported by: ESPINOZA BRYAN on 07/02/22 1137 Insulin Glargine,Hum.rec.anlog (Lantus Solostar) 100 Unit/1 Ml Insuln.pen, 50 UNIT SQ HS, (Reported) Entered as Reported by: BERTIN BRADSHAW on 04/18/20 1508 Losartan Potassium (Losartan Potassium) 25 Mg Tablet, 25 MG PO DAILY, (Reported) Entered as Reported by: ESPINOZA BRYAN on 07/02/22 1137 Magnesium Oxide (Magnesium Oxide) 400 Mg Tablet, 400 MG PO DAILY, (Reported) Entered as Reported by: MIS PARSONS on 08/20/17 0848 Metoprolol Succinate (Metoprolol Succinate) 100 Mg Tab.er.24h, 100 MG PO HS, (Reported) Entered as Reported by: BERTIN BRADSHAW on 04/24/21 1045 [place]-3 Fatty Acids/Fish Oil (Fish Oil 1,000 mg Softgel) 1 Each Capsule, 1,000 MG PO DAILY, (Reported) Entered as Reported by: MIS PARSONS on 08/20/17 0844 Pantoprazole Sodium (Pantoprazole Sodium) 40 Mg Tablet.dr, 40 MG PO BID, (Reported) Entered as Reported by: BERTIN BRADSHAW on 04/24/21 1049 Potassium Chloride (Potassium Chloride) 10 Meq Tab.er.prt, 30 MEQ PO BID, (Reported) Entered as Reported by: BERTIN BRADSHAW on 04/18/20 1508 Tramadol HCl (Tramadol HCl) 50 Mg Tablet, 100 MG PO BID PRN for PAIN-MILD TO MODERATE, (Reported) Entered as Reported by: MIS PARSONS on 08/19/17 1442 Valacyclovir HCl (Valacyclovir) 1,000 Mg Tablet, 1,000 MG PO BID Prescribed by: ASIA SPENCE on 09/26/22 1529 Review of Systems Constitutional: no symptoms reported EENTM: no symptoms reported Respiratory: no symptoms reported Cardiovascular: see HPI, syncope Gastrointestinal: no symptoms reported Genitourinary: no symptoms reported Musculoskeletal: no symptoms reported Skin: no symptoms reported Psychiatric/Neurological: No Symptoms Reported Past Lpxpjlo-Qfpidr-Bxtadx Hx Patient Social History Tobacco Use?: No Smoking Status: Former Smoker Substance use?: No Alcohol Use?: No Pt feels they are or have been: No Immunizations Up To Date Tetanus Booster (TDap): Unknown First/Initial COVID19 Vaccinat: 2020 Second COVID19 Vaccination Aime: 2020 Third COVID19 Vaccination Date: 2020 Seasonal Allergies Seasonal Allergies: Yes Past Medical History Surgery/Hospitalization HX: foot, knee, shoulder, back sx HTN, CKD STAGE 3, DM Coronary Stent, Eye Surgery, Tonsillectomy Respiratory: Yes Sleep Apnea Currently Using CPAP: No Cardiac: Yes Coronary Artery Disease, High Cholesterol, Hypertension Neurological: No Reproductive Disorders: No Sexually Transmitted Disease: No Renal Failure Gastrointestinal: Yes Gastroesophageal Reflux, Irritable Bowel Arthritis, Chronic Back Pain, Fractures Diabetes, Insulin dep Cataract 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 What Type of Treatment Did You: Surgical Intervention Psoriasis Blood Disorders: No Adverse Reaction/Blood Tranf: No Family Medical History Family history: Diabetes mellitus 19 MOTHER G8 SISTER Heart disease G8 BROTHER UNCLE Physical Exam Vital Signs Vital Signs - First Documented 12/02/22 17:34 Temp 36.8 Pulse 53 Resp 22 B/P (MAP) 140/84 (102) Pulse Ox 94 O2 Delivery Room Air Capillary Refill : Less Than 3 Seconds Height, Weight, BMI Height: 5'4.00" Weight: 152lbs. 0.0oz. 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 Norm as Tested Motor/Sensory: No Motor Deficit, No Sensory Deficit Skin: Normal Color, Warm/Dry Progress/Results/Core Measures Results/Orders Lab Results Laboratory Tests Test 12/02/22 17:43 12/02/22 17:44 12/02/22 18:40 Range/Units Glucometer 74 61 L 70-110 MG/DL White Blood Count 18.6 H 4.3-11.0 10^3/uL Red Blood Count 6.67 H 4.30-5.52 10^6/uL Hemoglobin 16.0 13.3-17.7 g/dL Hematocrit 53 40-54 % Mean Corpuscular Volume 80 80-99 fL Mean Corpuscular Hemoglobin 24 L 25-34 pg Mean Corpuscular Hemoglobin Concent 30 L 32-36 g/dL Red Cell Distribution Width 17.7 H 10.0-14.5 % Platelet Count 276 130-400 10^3/uL Mean Platelet Volume 11.0 9.0-12.2 fL Immature Granulocyte % (Auto) 1 % Neutrophils (%) (Auto) 91 H 42-75 % Lymphocytes (%) (Auto) 3 L 12-44 % Monocytes (%) (Auto) 4 0-12 % Eosinophils (%) (Auto) 1 0-10 % Basophils (%) (Auto) 1 0-10 % Neutrophils # (Auto) 16.8 H 1.8-7.8 10^3/uL Lymphocytes # (Auto) 0.6 L 1.0-4.0 10^3/uL Monocytes # (Auto) 0.8 0.0-1.0 10^3/uL Eosinophils # (Auto) 0.1 0.0-0.3 10^3/uL Basophils # (Auto) 0.1 0.0-0.1 10^3/uL Immature Granulocyte # (Auto) 0.2 H 0.0-0.1 10^3/uL Neutrophils % (Manual) 89 % Lymphocytes % (Manual) 6 % Monocytes % (Manual) 5 % Anisocytosis SLIGHT Sodium Level 137 135-145 MMOL/L Potassium Level 4.0 3.6-5.0 MMOL/L Chloride Level 100 98-107 MMOL/L Carbon Dioxide Level 25 21-32 MMOL/L Anion Gap 12 5-14 MMOL/L Blood Urea Nitrogen 24 H 7-18 MG/DL Creatinine 1.83 H 0.60-1.30 MG/DL Estimat Glomerular Filtration Rate 38 BUN/Creatinine Ratio 13 Glucose Level 73 70-105 MG/DL Calcium Level 9.3 8.5-10.1 MG/DL Corrected Calcium 9.2 8.5-10.1 MG/DL Total Bilirubin 0.6 0.1-1.0 MG/DL Aspartate Amino Transf (AST/SGOT) 39 H 5-34 U/L Alanine Aminotransferase (ALT/SGPT) 33 0-55 U/L Alkaline Phosphatase 87 40-136 U/L Troponin I 0.035 H <0.028 NG/ML Total Protein 7.0 6.4-8.2 GM/DL Albumin 4.1 3.2-4.5 GM/DL My Orders Orders - ADELAIDA DUFFY COST SPECIALIST Cbc With Automated Diff (12/02/22 17:53) Comprehensive Metabolic Panel (12/02/22 17:53) Iv/Invasive Line Insertion .IV INSERT (12/02/22 17:53) Troponin I Kaycee (12/02/22 17:53) Ekg Tracing (12/02/22 17:53) Chest 1 View, Ap/Pa Only (12/02/22 17:53) Urinalysis (12/02/22 17:53) Drug Screen Stat (Urine) (12/02/22 17:53) Manual Differential (12/02/22 17:44) Ed Admission (Communication) (12/02/22 19:16) Orthostatic Vital Signs (Adult (12/02/22 19:16) Vital Signs/I&O 12/02/22 17:34 Temp 36.8 Pulse 53 Resp 22 B/P (MAP) 140/84 (102) Pulse Ox 94 O2 Delivery Room Air Blood Pressure Mean: 102 FSBG Bedside Testing Finger Stick Blood Glucose: 61 Blood Glucose Action Taken: Cain HARP APRN INFORMED. PT GIVEN APPLE JUICE Progress Progress Note : Progress Note Patient is nontoxic and well-hydrated on exam. Vital signs are reassuring. Patient is stable on room air. Patient does have mild bradycardia. Patient denies any complaints at this time. He is awake alert and answers questions appropriately. No focal weakness or numbness appreciated on exam. No adventitious lung sounds or increased work of breathing noted on exam. No significant dependent edema appreciated. CBC, CMP, IV insertion, troponin, EKG, and chest x-ray ordered. CBC notable for leukocytosis. CMP notable for increased BUN/creatinine although these appear near baseline per review of historical records. Patient also has a mildly elevated troponin. This is likely a type II elevation given lack of other cardiac symptoms. EKG without acute ischemic changes or arrhythmias. Short MT interval is noted. Chest x-ray is acutely negative. Patient had a fu rther decrease in blood sugar from the 70s upon arrival to 61. He was subsequently given apple juice and crackers which he tolerated without issue. Patient will be admitted for further evaluation and treatment. Patient was updated on plan of care and understanding verbalized. Dr. Boucher with [facility] kindly agreed to admit the patient. EKG : EKG Time: 17:40 Rate: 53 Rhythm: S.Solo Intervals: MT (Interval shortened) ECG Impression: Nonspecific Changes Departure Impression Primary Impression: Syncope Qualified Codes: R55 - Syncope and collapse Additional Impressions: Elevated troponin Hypoglycemia Disposition: ADMITTED INPATIENT Condition: Stable Admissions Decision to Admit Reason: Admit from ER (General) Decision to Admit/Date: Dec 02, 2022 Time/Decision to Admit Time: 19:05 Departure-Patient Inst. Referrals: NELLA GROVE DO (PCP/Family) Primary Care Physician ADELAIDA DUFFY APRN Dec 02, 2022 19:15
[2022-12-02 19:30] VITALS: BP_SYST 169; BP_SYST 170; BP_SYST 171; BP_DIAS 70; BP_DIAS 80; BP_DIAS 83
[2022-12-02 19:39] LABS: BILIRUBIN,URINE NEGATIVE (NEGATIVE); CLARITY,URINE CLEAR; COLOR,URINE YELLOW; GLUCOSE, URINE (UA) NEGATIVE (NEGATIVE); KETONES,URINE NEGATIVE (NEGATIVE); LEUKOCYTE ESTERASE ,URINE NEGATIVE (NEGATIVE); NITRITE,URINE NEGATIVE (NEGATIVE); PROTEIN,URINE 2+ (NEGATIVE)
[2022-12-02 19:55] LABS: AMPHETAMINE SCREEN, URINE NEGATIVE (NEGATIVE); BARBITURATE SCREEN URINE NEGATIVE (NEGATIVE); BENZODIAZEPINES SCREEN URINE NEGATIVE (NEGATIVE); CANNABINOID SCREEN, URINE NEGATIVE (NEGATIVE); COCAINE SCREEN URINE NEGATIVE (NEGATIVE); METHADONE STAT NEGATIVE (NEGATIVE); OPIATE SCREEN URINE NEGATIVE (NEGATIVE); OXYCODONE STAT NEGATIVE (NEGATIVE); PROPOXYPHENE STAT NEGATIVE (NEGATIVE); TRICYCLIC ANTIDEPRESSANTS SCRE NEGATIVE (NEGATIVE)
[2022-12-02 19:57] LABS: BACTERIA,URINE NEGATIVE /HPF; HYALINE CASTS, URINE RARE /LPF; RBC,URINE RARE /HPF; SQUAMOUS EPITHELIAL CELL,UR RARE /HPF
[2022-12-02 20:28] VITALS: BP 138/70
[2022-12-02] MEDS ORDERED: ACETAMINOPHEN 325 MG TABLET PO PRN (21:30)
[2022-12-02] MEDS: D5 NS 1000 ML IV SOLUTION 1,000 ML IV SCH (22:13)
[2022-12-03] VITALS (8 sets, daily range): BP systolic 147–175; BP diastolic 59–82
[2022-12-03 05:27] LABS: BASOPHILS # (AUTO) 0.1 10^3/uL (0.0-0.1); BASOPHILS % (AUTO) 1 % (0-10); EOSINOPHILS # (AUTO) 0.2 10^3/uL (0.0-0.3); EOSINOPHILS % (AUTO) 1 % (0-10); HEMATOCRIT 48 % (40-54); HEMOGLOBIN 14.6 g/dL (13.3-17.7); LYMPHOCYTES # (AUTO) 1.2 10^3/uL (1.0-4.0); LYMPHOCYTES % (AUTO) 8 % (12-44); MEAN CORPUSCULAR HEMOGLOBIN 24 pg (25-34); MEAN CORPUSCULAR HGB CONC 31 g/dL (32-36); MEAN CORPUSCULAR VOLUME 79 fL (80-99); MEAN PLATELET VOLUME 10.7 fL (9.0-12.2); MONOCYTES # (AUTO) 1.1 10^3/uL (0.0-1.0); MONOCYTES % (AUTO) 7 % (0-12); NEUTROPHILS # (AUTO) 11.8 10^3/uL (1.8-7.8); NEUTROPHILS % (AUTO) 82 % (42-75); PLATELET COUNT 248 10^3/uL (130-400); WHITE BLOOD COUNT 14.3 10^3/uL (4.3-11.0)
[2022-12-03 05:52] LABS: CALCIUM 9.4 MG/DL (8.5-10.1); CREATININE SERUM 1.73 MG/DL (0.60-1.30); POTASSIUM 3.8 MMOL/L (3.6-5.0)
[2022-12-03] MEDS: inSUlin ASPART (NovoLOG) 1 UNIT/0.01 ML (CHARGE PER UNIT) SC SCH ×4 (06:35→20:49)
[2022-12-03] MEDS: GABAPENTIN 100 MG (NEURONTIN) CAP PO SCH ×4 (08:38→20:42)
--- NOTE | 2022-12-03 09:32 | History & Physical-Hospitalist ---
KARIME WALTERS 12/03/22 0932: History of Present Illness HPI/Chief Complaint Pt. is a 77 year old male with a history of CAD w/ stent placement, PVD, bells palsy, HTN, DM type 2, CKD stage 3b, sleep apnea, GERD, IBS, and resolved basal cell carcinoma of head who presented yesterday following a syncopal episode at home. It occured after he stood up to walk to the restroom. The fall was not witnessed, although his heard it from another room. He reports feeling fine prior to the event and doesn't remember the fall. His Blood sugar was 63 when EMS arrived. He reports taking his home meds including his insulin that morning as usual. 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 He reports minor fatigue but denies headache, CP, palpitations, SOB, cough, abd pain, N/V/D, pain/numbness/weakness of extremities. Source: patient Date Seen 12/03/22 Time Seen by a Provider: 08:45 Attending Physician Sam Lujan DO PCP Admitting Physician: Wang Boucher MD Attending Physician: Wang Boucher MD Referring Physician Date of Admission Dec 02, 2022 at 19:16 Home Medications & Allergies Home Medications Reviewed patient Home Medication Reconciliation performed by pharmacy medication reconciliations security system technician and/or nursing. Patients Allergies have been reviewed. Allergies Allergies Coded Allergies lisinopril (Verified Adverse Reaction, Unknown, affects kidneys, 07/02/22) metformin (Verified Adverse Reaction, Unknown, affects kidneys, 07/02/22) Past Ozaiknj-Xqkzzq-Penmpm Hx Patient Social History Tobacco Use?: No Smoking Status: Former Smoker (quit 30 years ago) Substance use?: No Alcohol Use?: No Pt feels they are or have been: No Immunizations Up To Date Date of Influenza Vaccine: Aug 24, 2020 First/Initial COVID19 Vaccinat: 2020 Second COVID19 Vaccination Aime: 2020 Tetanus Booster (TDap): Unknown Date of Pneumonia Vaccine: Aug 09, 2020 Seasonal Allergies Seasonal Allergies: Yes Current Status Advance Directives: No Communicates: Verbally Primary Language: Bhutanese Preferred Spoken Language: Bhutanese Is interpretation needed?: No Additional sensory deficits: none Implanted or Applied Medical D: Stents Past Medical History Surgeries: Coronary Stent, Eye Surgery, Tonsillectomy Sleep Apnea Currently Using CPAP: No Coronary Artery Disease, High Cholesterol, Hypertension Sexually Transmitted Disease: No Renal Failure Gastroesophageal Reflux, Irritable Bowel Arthritis, Chronic Back Pain, Fractures Diabetes, Insulin dep Cataract Skin What Type of Treatment Did You: Surgical Intervention Psoriasis Blood Disorders: No Adverse Reaction/Blood Tranf: No Family Medical History Family history: Diabetes mellitus 19 MOTHER G8 SISTER Heart disease G8 BROTHER UNCLE Heart Disease, Diabetes Review of Systems Constitutional: No chills, No dizziness; other (minor fatigue) EENTM: No hearing loss, No vision loss Respiratory: No cough, No dyspnea on exertion, No hemoptysis, No short of breath Cardiovascular: No chest pain; edema (mild pitting edema LLE. chronic in nature); No palpitations; syncope, vascular heart diseas Gastrointestinal: No abdominal pain, No constipation, No diarrhea, No nausea, No vomiting Genitourinary: No decreased output, No dysuria, No hematuria Musculoskeletal: no symptoms reported Skin: no symptoms reported Psychiatric/Neurological: Denies Headache, Denies Numbness, Denies Weakness Physical Exam Physical Exam Vital Signs Vital Signs - First Documented 12/02/22 12/02/22 17:34 20:53 Temp 36.8 Pulse 53 Resp 22 B/P (MAP) 140/84 (102) Pulse Ox 94 O2 Delivery Room Air O2 Flow Rate 2.00 Capillary Refill : Less Than 3 Seconds Height, Weight, BMI Height: 5'4.00" Weight: 152lbs. 0.0oz. 68.900115ta; 31.57 BMI Method:Stated General Appearance: No Apparent Distress, Obese Eyes: Bilateral Eye PERRL, Bilateral Eye EOMI HEENT: PERRL/EOMI, Moist Mucous Membranes Neck: Full Range of Motion, Non Tender, Supple Respiratory: Chest Non Tender, Lungs Clear, Normal Breath Sounds, No Accessory Muscle Use, No Respiratory Distress Cardiovascular: Regular Rate, Rhythm, No Murmur, Normal Peripheral Pulses Gastrointestinal: Normal Bowel Sounds, Non Tender, Soft Extremity: Normal Capillary Refill, Normal Range of Motion, Non Tender, No Calf Tenderness, Swelling (Mild pitting edema with cellulitis present on LLE) Neurologic/Psychiatric: Alert, Oriented x3, No Motor/Sensory Deficits, Normal Mood/Affect Lymphatic: No Adenopathy Results Results/Procedures Labs Laboratory Tests 12/02/22 17:44 12/03/22 05:06 Patient resulted labs reviewed. Assessment/Plan Admission Diagnosis Syncope, Elevated Troponin Assessment and Plan Syncope -Exact etiology unknown at this time. cardiac vs. orthostatic hypotension vs hypoglycemia -Telemetry ordered to monitor for arrhythmia. orthostatic vitals ordered. Cardiology Consulted. -Hold home BP medications -Consider CT head since fall was unwitnessed and patient is on DAPT. Elevated troponin -12/02/21 17:44 Trop I: 0.035 repeat 12/03/22 05:06 Trop I: 0.047 -No ST elevation on initial EKG. -Pt. needs cardiac work-up, likely to include echo, stress test, and possible cath. Management per cardiology. CAD w/ History of stenting -2 stents placed in RCA by Dr. Xiao April 18, 2020 -03/21/20 lexiscan EF of 57% -Patient is on DAPT with aspirin 81mg PO QD and clopidogrel 75mg PO QD. -Cardiology consulted and recommendations will be appreciated. DM Type 2 -Insulin sliding scale and monitor blood sugars closely Hypertension -Hold home medications at this time CKD Stage 3b -12/03/22 Cr 1.73 and GFR 40. Monitor for now. [place] Palsy -Presented to ED 09/26/23 for left sided facial droop. stroke was ruled out and patient was sent home with valtrex 1000mg BID for 5 days. Failed to resolve. Monitor for now History of PVD affecting left leg -Pt. had balloon angioplasty of Left posterior tibial artery on 07/02/[address] Xiao. -Patient has good capillary refill. pulse difficult to assess given swelling. Non-tender upon exam. Cellulitis of LLE -Pt had a poorly healing wound of LLE which initiated the Peripheral cath by Dr. Xiao. Wound has since healed, but patient does have some erythema, warmness, and swelling present on distal east. -consider initiating Ceftriaxone 2g IV Q24 for 7 days. Sleep apnea -Pt. denies using cpap at home. DENI CORTEZ MD 12/03/22 8242: Past Afovkqa-Sypxwo-Qsbjsh Hx Family Medical History Family history: Diabetes mellitus 19 MOTHER G8 SISTER Heart disease G8 BROTHER UNCLE Assessment/Plan Admission Diagnosis Admission Status: Inpatient Order (span 2 midnights) Reason for Inpatient Admission: see below Assessment and Plan Pt admitted due to a syncopal episode and elevated troponin. Follows with Dr Xiao for cardiology so consulted. Will get orthostatics and monitor on telemtry. Discussed with Cardiology AKSHAT Da Silva who states patient having pauses on telemetry so planning for pacemaker placement today. Will attempt to get CT Head as well given unwitnessed fall and on DAPT but will do after pacemaker placement since having extreme AV block. Will hold hold diabetic medicines as well due to hypoglycemia. Supervisory-Addendum Brief Verification & Attestation Participated in pt care: history, MDM, physical Personally performed: exam, history, MDM, supervision of care Care discussed with: Medical Student Procedures: n/a Results interpretation: Verified all documentation Verification and Attestation of Medical Student E/M Service A medical student performed and documented this service in my presence. I reviewed and verified all information documented by the medical student and made modifications to such information, when appropriate. I personally performed the physical exam and medical decision making. Deni Cortez, Dec 03, 2022,14:51 KARIME WALTERS Dec 03, 2022 09:32 DENI CORTEZ MD Dec 03, 2022 14:52
--- NOTE | 2022-12-03 10:05 | Consultation-Cardiology ---
HPI-Cardiology Cardiology Consultation Date of Consultation 12/03/22 Date of Admission Time Seen by Provider: 08:45 Indication: Syncope, elevated troponin HPI Patient is a 77 y/o male with history of CAD with history of stent placement, PVD, HTN, HLP, DM. Presented to the ER after having syncopal episode at home. Patient reports he was in his usual state of health and had been feeling well. Does not remember syncopal episode, but remembers gettting up to use the restroom. Was brought to the ER by EMS. He denies any chest pain, dyspnea, dizziness. Was diagnosed with [place] Palsy in September 2022 and has slight left facial droop. C/o chronic LLE edema. No other complaints at this time. Home Medications & Allergies Allergies: Coded Allergies: lisinopril (Verified Adverse Reaction, Unknown, affects kidneys, 07/02/22) metformin (Verified Adverse Reaction, Unknown, affects kidneys, 07/02/22) Home Medication List Reviewed: Yes ZAZ-[id number]-[id number] Hx Patient Social History Marital Status: Employed/Student: retired Smoking Status: Former Smoker (quit 30 years ago) Type Used: Cigarettes Recent Hopitalizations: No Have you traveled recently?: No Alcohol Use?: No Immunizations Up To Date Tetanus Booster (TDap): Unknown Date of Pneumonia Vaccine: Aug 09, 2020 Date of Influenza Vaccine: Aug 24, 2020 Past Medical History CAD, HTN, HLP, DM, PVD Family Medical History Significant Family History: Heart Disease, Diabetes Family History: Family history: Diabetes mellitus 19 MOTHER G8 SISTER Heart disease G8 BROTHER UNCLE Review of Systems-General Review of Systems Constitutional: see HPI; No chills, No dizziness; other (minor fatigue) EENTM: No hearing loss, No vision loss Respiratory: see HPI; No cough, No dyspnea on exertion, No hemoptysis, No short of breath Cardiovascular: see HPI; No chest pain; edema (mild pitting edema LLE. chronic in nature); No palpitations; syncope, vascular heart diseas Gastrointestinal: No abdominal pain, No constipation, No diarrhea, No nausea, No vomiting Genitourinary: No decreased output, No dysuria, No hematuria Musculoskeletal: no symptoms reported Skin: no symptoms reported, see HPI Psychiatric/Neurological: See HPI; Denies Headache, Denies Numbness, Denies Weakness Reviewed Test Results Reviewed Test Results Lab Laboratory Tests 1/24/23 17:43: Glucometer 74 12/02/22 17:44: White Blood Count 18.6H, Red Blood Count 6.67H, Hemoglobin 16.0, Hematocrit 53, Mean Corpuscular Volume 80, Mean Corpuscular Hemoglobin 24L, Mean Corpuscular Hemoglobin Concent 30L, Red Cell Distribution Width 17.7H, Platelet Count 276, Mean Platelet Volume 11.0, Immature Granulocyte % (Auto) 1, Neutrophils (%) (Auto) 91H, Lymphocytes (%) (Auto) 3L, Monocytes (%) (Auto) 4, Eosinophils (%) (Auto) 1, Basophils (%) (Auto) 1, Neutrophils # (Auto) 16.8H, Lymphocytes # (Auto) 0.6L, Monocytes # (Auto) 0.8, Eosinophils # (Auto) 0.1, Basophils # (Auto) 0.1, Immature Granulocyte # (Auto) 0.2H, Neutrophils % (Manual) 89, Lymphocytes % (Manual) 6, Monocytes % (Manual) 5, Anisocytosis SLIGHT, Sodium Level 137, Potassium Level 4.0, Chloride Level 100, Carbon Dioxide Level 25, Anion Gap 12, Blood Urea Nitrogen 24H, Creatinine 1.83H, Estimat Glomerular Filtration Rate 38, BUN/Creatinine Ratio 13, Glucose Level 73, Calcium Level 9.3, Corrected Calcium 9.2, Total Bilirubin 0.6, Aspartate Amino Transf (AST/SGOT) 39H, Alanine Aminotransferase (ALT/SGPT) 33, Alkaline Phosphatase 87, Troponin I 0.035H, Total Protein 7.0, Albumin 4.1 12/02/22 18:40: Glucometer 61L 12/02/22 19:28: Urine Color YELLOW, Urine Clarity CLEAR, Urine pH 7.0, Urine Specific [place] 1.025H, Urine Protein 2+H, Urine Glucose (UA) NEGATIVE, Urine Ketones NEGATIVE, Urine Nitrite NEGATIVE, Urine Bilirubin NEGATIVE, Urine Urobilinogen 1.0, Urine Leukocyte Esterase NEGATIVE, Urine RBC (Auto) TRACE-IH, Urine RBC RARE, Urine WBC NONE, Urine Squamous Epithelial Cells RARE, Urine Crystals NONE, Urine Bacteria NEGATIVE, Urine Casts PRESENT, Urine Hyaline Casts RARE, Urine Mucus NEGATIVE, Urine Culture Indicated NO, Urine Opiates Screen NEGATIVE, Urine Oxycodone Screen NEGATIVE, Urine Methadone Screen NEGATIVE, Urine Propoxyphene Screen NEGATIVE, Urine Barbiturates Screen NEGATIVE, Ur Tricyclic Antidepressants Screen NEGATIVE, Urine Phencyclidine Screen NEGATIVE, Urine Amphetamines Screen NEGATIVE, Urine Methamphetamines Screen NEGATIVE, Urine Benzodiazepines Screen NEGATIVE, Urine Cocaine Screen NEGATIVE, Urine C annabinoids Screen NEGATIVE 12/03/22 05:06: White Blood Count 14.3H, Red Blood Count 6.04H, Hemoglobin 14.6, Hematocrit 48, Mean Corpuscular Volume 79L, Mean Corpuscular Hemoglobin 24L, Mean Corpuscular Hemoglobin Concent 31L, Red Cell Distribution Width 17.3H, Platelet Count 248, Mean Platelet Volume 10.7, Immature Granulocyte % (Auto) 1, Neutrophils (%) (Auto) 82H, Lymphocytes (%) (Auto) 8L, Monocytes (%) (Auto) 7, Eosinophils (%) (Auto) 1, Basophils (%) (Auto) 1, Neutrophils # (Auto) 11.8H, Lymphocytes # (Auto) 1.2, Monocytes # (Auto) 1.1H, Eosinophils # (Auto) 0.2, Basophils # (Auto) 0.1, Immature Granulocyte # (Auto) 0.1, Sodium Level 136, Potassium Level 3.8, Chloride Level 101, Carbon Dioxide Level 26, Anion Gap 9, Blood Urea Nitrogen 24H, Creatinine 1.73H, Estimat Glomerular Filtration Rate 40, BUN/Creatinine Ratio 14, Glucose Level 204H, Calcium Level 9.4, Troponin I 0.047H 12/03/22 06:34: Glucometer 175H ECG Impression ECG Initial ECG Rhythm: Normal Sinus Initial ECG Intervals: [place] (short) Physical Exam Physical Exam Vital Signs Vital Signs - First Documented 12/02/22 12/02/22 17:34 20:53 Temp 36.8 Pulse 53 Resp 22 B/P (MAP) 140/84 (102) Pulse Ox 94 O2 Delivery Room Air O2 Flow Rate 2.00 Capillary Refill : Less Than 3 Seconds Height, Weight, BMI Height: 5'4.00" Weight: 152lbs. 0.0oz. [id number]; 31.57 BMI Method:Stated General Appearance: No Apparent Distress, Obese Eyes: Bilateral Eye PERRL, Bilateral Eye EOMI HEENT: PERRL/EOMI, Moist Mucous Membranes Neck: Full Range of Motion, Non Tender, Supple Respiratory: Chest Non Tender, Lungs Clear, Normal Breath Sounds, No Accessory Muscle Use, No Respiratory Distress Cardiovascular: Regular Rate, Rhythm, No Murmur, Normal Peripheral Pulses Gastrointestinal: Normal Bowel Sounds, Non Tender, Soft Extremity: Normal Capillary Refill, Normal Range of Motion, Non Tender, No Calf Tenderness, Swelling (Mild pitting edema present on LLE) Neurologic/Psychiatric: Alert, Oriented x3, No Motor/Sensory Deficits, Normal Mood/Affect Skin: Normal Color, Warm/Dry Lymphatic: No Adenopathy A/P-Cardiology Admission Diagnosis Syncope Elevated troponin CAD HTN Assessment/Plan Syncope, unknown etiology Probably secondary to sinus node dysfunction and sinus pause Patient had significant sinus bradycardia with extreme first degree AV block with WV interval 345 ms, had multiple pauses up to 2 seconds. Most probably the syncope is related to prolonged pause. Discussed the management plan with the patient and recommended dual-chamber pacemaker implantation. Patient is maintained on metoprolol which will be held for now prior to the pacemaker implant Telemetry monitoring showing questionable episodes of paroxysmal atrial flutter alternating with sinus bradycardia and sinus pause. Continue to monitor for now. Maintained on aspirin and Plavix. Mildly elevated troponin, type II myocardial infarction Known to have coronary artery disease with small vessel disease distally, last stress test was done in April 2021 with no significant ischemia Will need to have stress test as an outpatient Coronary artery disease, Cardiac catheterization was carried out on April 18, 2020 showing severe long seg ment stenosis in the proximal and midright coronary artery with deployment of 2 overlapping stent both are 2.523 mm expanded to 2.8 with excellent results. There is an area of moderate stenosis proximal to the stent that was treated medically, LAD and circumflex artery has relp-hl-qukyfgoq disease. Stress test done April 2021 showing no ischemia or infarct. 2D echo was done in March 2020 showing normal LV size, mild LVH, EF 55 to 65%, grade 1 diastolic dysfunction, left atrial dilation 5.4 cm, aortic valve s clerosis, PA pressure 25 to 30 mmHg. I will reevaluate 2D Echo. Hypertension, restart home blood pressure medications and continue to monitor. Hyperlipidemia, maintained on statin as outpatient. I will evaluate lipid profile. Peripheral vascular disease, Bilateral runoff to the lower extremities done on April 18, 2020 showing total occlusion of the right anterior tibial artery with [id number] disease in the right SFA, total occlusion of the left anterior tibial artery with good flow through the posterior tibial and peroneal artery with jaem-ww-etfnilkw disease in the left SFA. Nonobstructive disease. Patient has wound to LLE at mid anterior east, present for 2-3 months. Underwent peripheral angiogram on 04/24/21 showing severe peripheral arterial d isease on the left lower extremity with successful balloon angioplasty to the tiobioperoneal trunk and peroneal artery, occluded anterior tibial artery with failed attempt for intervention and severe stenosis at the ostial posterior tibial artery with failed attempt for intervention. Total occlusion of the right anterior tibial artery with severe stenosis in the right posterior tibial artery. Seen by Dr Huston, had angiogram and intervention, I do not have the report of that intervention. Patient was referred from Dr. Huston's office to the vein clinic He was diagnosed with venous stasis ulcers in addition to the ischemic ulcers and he was diagnosed with venous stasis ulcers in addition to the ischemic ulcers In July 2021 patient underwent balloon angioplasty to the distal left anterior tibial artery and ostial left posterior tibial artery with good results. Patient reports that he has ablation done and also in [place] Patient is having more cramps in his lower extremities, had an abnormal THOMAS bilaterally which has been worsening. We discussed the possibility of referring him back to Dr. Huston versus angiogram in [place]. Peripheral angiogram was done on July 02, 2022 showing subtotal occlusion of the left posterior tibial artery and peroneal artery with successful balloon angioplasty with [place] 3 x 100 with excellent results, the left anterior tibial artery is small artery with moderate diffuse disease. There was severe stenosis distally. There is mild to moderate stenosis in the left SFA and left common femoral artery. The right side there was mild to moderate stenosis in the right SFA. Patient was scheduled for evaluation with the vein clinic at [place] Chronic kidney disease stage III, had transient episode of renal failure while on Victoza, improved, continue to monitor renal function closely, follows with nephrology Chronic LLE peripheral edema, maintained on chlorthalidone Mild bilateral carotid stenosis, ultrasound was done in June 2022 Diabetes mellitus, followed and managed by primary care physician Thank you for allowing us to participate in the management of Mr. Wilcox. This is Rekha Calvillo PA-C, as a scribe for Dr. Xiao. Patient was seen and evaluated with Rekha, I interviewed and examined the patient and reviewed his telemetry. Discussed the management plan, patient will require long-term use of beta- blockers, has history of poorly controlled blood pressure, difficult to control. Had multiple episodes of dizziness and lightheadedness, had syncope with unres ponsiveness. Monitoring his telemetry showing alternating paroxysmal atrial flutter with sinus bradycardia and first-degree AV block and multiple sinus pauses probably the cause of his underlying syncope Recommended placement of dual-chamber pacemaker and continue with beta-blockers REKHA MINA Dec 03, 2022 10:05 LUCIA XIAO MD Dec 03, 2022 14:37
[2022-12-03] MEDS: D5 NS 1000 ML IV SOLUTION 1,000 ML IV SCH (11:00)
[2022-12-03] MEDS ORDERED: MTP100TCR PO (12:24)
[2022-12-03] MEDS ORDERED: POTA-164 PO (12:29)
[2022-12-03] MEDS ORDERED: TEST200V21 IM (12:29)
[2022-12-03] MEDS ORDERED: CNC1KV IM (12:29)
--- NOTE | 2022-12-03 14:38 | Cardiac Procedure Note-CS/ASA ---
Pre-Procedure Note Pre-Op Procedure Note Date of Available H&P: Dec 03, 2022 Date H&P Reviewed: Dec 03, 2022 Time H&P Reviewed: 14:37 History & Physical: H&P Reviewed, Patient Examed, No changes noted Pre-Operative Diagnosis: Syncope Conscious Sedation Pre-Proced Time 14:37 ASA Score 3 For ASA 3 and 4: Consider anesthesia and medical clearance. Also, for patients with a history of failed moderate sedation consider anesthesia. Airway Lungs Heart ASA score ASA 1: a normal healthy patient ASA 2: a patient with a mild systemic disease (mid diabetes, controlled hypertension, obesity ASA 3: a patient with a severe systemic disease that limits activity (angina, COPD, prior Myocardial infarction) ASA 4: a patient with an incapacitating disease that is a constant threat to life (CHF, renal failure) ASA 5: a moribund patient not expected to survive 24 hrs. (ruptured aneurysm) ASA 6: a declared brain- patient whose organs are being harvested. For emergent operations, add the letter E after the classification Mallampati Classification Grade 3 Sedation Plan Analgesia, Amnesia, Plan communicated to team members, Discussed options with patient/fam, Discussed risks with patient/fam The patient is an appropriate candidate to undergo the planned procedure, sedation, and anesthesia. The patient immediately re-assessed prior to indication. LUCIA SCHNEIDER MD Dec 03, 2022 14:37
[2022-12-03] MEDS ORDERED: NS IV 1000 ML 1,000 ML ONE (14:44)
[2022-12-03] MEDS: NS IV 1000 ML 1,000 ML IV SCH (14:48)
[2022-12-03] MEDS ORDERED: LOSA50TA63 PO (15:00)
[2022-12-03] MEDS ORDERED: NS IV 1000 ML 2,000 ML ONE (15:25)
[2022-12-03] MEDS ORDERED: HEParin (CATH LAB) 1,000 ML IV ONE (15:25)
[2022-12-03] MEDS ORDERED: LIDOCAINE 1% INJ 20 ML VIAL ONE (15:26)
[2022-12-03] MEDS ORDERED: cefTRIAXone 1 GM PRE-MIX 50 ML IV SCH (15:30)
[2022-12-03] MEDS ORDERED: ceFAZolin INJECTION 1,000 MG ONE (15:34)
[2022-12-03] MEDS ORDERED: fentaNYL INJ 100 MCG/2 ML AMP ONE ×2 (15:40→16:33)
[2022-12-03] MEDS ORDERED: MIDAZOLAM 5 MG/5 ML (VERSED) VIAL ONE ×2 (15:40→16:33)
[2022-12-03] MEDS ORDERED: PATIENT MAY USE OWN MEDS, ALL PO SCH (17:30)
[2022-12-03] MEDS ORDERED: NS IV 1000 ML 1,000 ML IV SCH (17:30)
--- NOTE | 2022-12-03 17:33 | Permanent Pacemaker Implant ---
Dual Chamber Pacemaker Implant PROCEDURE PHYSICIAN: Lucia Xiao DUAL CHAMBER PACEMAKER IMPLANTATION: DATE OF PROCEDURE: 12/03/22 INDICATION: Syncope, high-grade AV block PREOPERATIVE DIAGNOSIS: Syncope, severe bradycardia POSTOPERATIVE DIAGNOSIS: Syncope, complete heart block HISTORY: Dual-chamber permanent pacemaker was recommended. PROCEDURE PERFORMED: 1. Dual-chamber permanent pacemaker implantation. 2. Fluoroscopy. 3. Central venous access. ANESTHESIA: Local anesthesia, conscious sedation. COMPLICATIONS: None. ESTIMATED BLOOD LOSS:20 mL. SPECIMENS: None. ORAL ANTICOAGULATION: None. FLUOROSCOPY TIME: FLUOROSCOPY DOSE: CONTRAST DOSE: PROCEDURE DETAILS: The patient is a 77 male admitted with syncope, noted to have severe bradycardia with high-grade AV block and multiple pauses, he was advised to have a dual-chamber pacemaker. And after all of the patients questions were answered, the patient was brought to the EP Lab. The patient's left chest was prepped and draped in sterile fashion. A 2 inch horizontal incision was made 1 cm below the clavicle and dissection carried down to the pectoralis fascia. Using the modified Seldinger technique and under fluoroscopy guidance, the anterior aspect of the left axillary vein was accessed 2 times. The J wires were secured to the drapes with a mosquito clamp. A 7-Uzbek sheath was introduced over one of the J-wires. The RV lead was then inserted. The RV lead was directed across the tricuspid valve to the apical septal portion of the right ventricle. The position was checked in MACEDONIAN and MITCHELL views. The screw was deployed and the lead connected to the c programmer. Close sensing and pacing thresholds were obtained. Diaphragmatic pacing was ruled out. The lead was secured with 2-0 silk ties to the underlying muscle and fascia. Next, a 7-Uzbek sheath was introduced through the remaining J-wire. An atrial lead was then introduced and guided to the level of the right appendage. The screw was deployed and the lead was connected to the interrogator. Good sensing and pacing thresholds were obtained. Diaphragmatic pacing was ruled out. The leads were secured with 2-0 silk ties to the underlying muscle and fascia. The leads were connected to the device in a hermetic fashion. The device and leads were placed in the pocket. Aggressive irrigation with saline solution was done. The device was secured to the underlying muscle and fascia with a 2-0 silk tie. interrogation of the device revealed good integrity of all the leads and good connections. During testing of the atrial lead upon pacing the atrium at a rate of 80 patient advanced to complete heart block and high-grade AV block. Return to conducting one-to-one at rate of 50. The wound was then closed using 2 layers. The first layer was interrupted 2-0 absorbable Vicryl suture. The last layer was a single subcuticular layer with 4- 0 Vicryl suture. Half inch Steri-Strips and a small dressing were then applied to the wound. The patient tolerated the procedure well and was returned to the recovery room in stable condition with stable vital signs. DEVICE INFORMATION: DEANNA XT MRI [id number] RA LEAD: [id number] RV LEAD: [id number] PER-OPERATIVE DEVICE INTERROGATION: Good sensing and capture activity IMMEDIATE POSTOPERATIVE DEVICE INTERROGATION: Right atrium, bipolar, pulse width 0.4, voltage 1.25, impedance 513, P wave 2 mV Right ventricle, bipolar, pulse width 0.4 ms, voltage 1.0. Impedance 931, R wave 24.5 mV. PLAN: The patient transferred to the ICU. We will continue with two more doses of IV antibiotics. We will check a chest x-ray and interrogate the device in the morning. CONCLUSION: Successful dual chamber pacemaker implantation with no complications LUCIA XIAO MD Dec 03, 2022 17:33
--- NOTE | 2022-12-03 19:41 | Diagnostic Imaging Report ---
INDICATION: Pacemaker placement. EXAMINATION: Chest, 12/03/2022. COMPARISON: 12/02/2022. FINDINGS: There has been interval placement of left-sided pacemaker which appears unremarkable. There are increased interstitial markings throughout both lungs suggesting pulmonary edema. Pulmonary vascular congestion is noted. Heart stable. No effusion. No pneumothorax. IMPRESSION: 1. Interval placement of pacemaker, unremarkable in appearance. 2. Findings of pulmonary edema. Dictated by: Dictated on workstation # [id number]
[2022-12-03] MEDS: PANTOPRAZOLE 40 MG (PROTONIX) TAB PO SCH (20:42)
[2022-12-03] MEDS ORDERED: GABAPENTIN 100 MG (NEURONTIN) CAP PO SCH (21:00)
[2022-12-03] MEDS: ceFAZolin INJECTION 1,000 MG in NS (IVPB) 50 ML IV SCH (21:22)
[2022-12-04] MEDS: D5 NS 1000 ML IV SOLUTION 1,000 ML IV SCH ×2 (00:16→13:30)
[2022-12-04 00:44] VITALS: BP 170/89
[2022-12-04] MEDS: NS IV 1000 ML 1,000 ML IV SCH ×2 (00:50→10:45)
[2022-12-04 04:16] VITALS: BP 158/67
[2022-12-04 04:19] LABS: HEMATOCRIT 47 % (40-54); HEMOGLOBIN 13.9 g/dL (13.3-17.7); MEAN CORPUSCULAR HEMOGLOBIN 24 pg (25-34); MEAN CORPUSCULAR HGB CONC 30 g/dL (32-36); MEAN CORPUSCULAR VOLUME 79 fL (80-99); MEAN PLATELET VOLUME 10.2 fL (9.0-12.2); PLATELET COUNT 226 10^3/uL (130-400); WHITE BLOOD COUNT 11.5 10^3/uL (4.3-11.0)
[2022-12-04 04:30] LABS: POTASSIUM 3.7 MMOL/L (3.6-5.0)
[2022-12-04 04:31] LABS: CALCIUM 8.9 MG/DL (8.5-10.1)
[2022-12-04 04:36] LABS: CREATININE SERUM 1.55 MG/DL (0.60-1.30)
[2022-12-04] MEDS: inSUlin ASPART (NovoLOG) 1 UNIT/0.01 ML (CHARGE PER UNIT) SC SCH ×2 (05:07→10:50)
[2022-12-04] MEDS: ceFAZolin INJECTION 1,000 MG in NS (IVPB) 50 ML IV SCH ×2 (05:11→14:20)
--- NOTE | 2022-12-04 06:26 | Discharge Inst-Post CATH ---
Discharge Inst-CATH/EP Problems Reviewed?: Yes Post Cardiac Cath/EP D/C Inst Follow Up/Plan Appointment with Dr Xiao in one week <b>CARDIAC CATH/EP PROCEDURE DISCHARGE INSTRUCTIONS</b> ACTIVITY * Go Home directly and rest. * Limit activity of the leg (or wrist if it was used) for 7 days including aerobics, swimming, jogging, bicycling, etc. * Restrict stair-climbing for 7 days if possible, if not, climb up with your non-cath leg, then bring together on the same step. * Avoid lifting, pushing, pulling or excessive movement of the affected extremity for 7 days. * Customary sexual activity may be resumed after 2 days-use caution not to use a position that strains or causes pain to the affected extremity. * No driving for 24 hours. * NO SMOKING. * Avoid straining for bowel movements for 7 days. * Gentle walking on level ground is allowed. * Returning to work will depend on the type of procedure and the results. Your doctor will discuss this with you. CALL YOUR DOCTOR FOR ANY OF THE FOLLOWING: *If bleeding from the puncture site occurs- Apply gentle pressure to site with clean cloth and call your doctor or EMS. * If a knot or lump forms under the skin, increases in size, or causes pain. * If bruising appears to be worsening or moving further down your leg instead of disappearing. * Temperature above 101 F. CARE OF YOUR GROIN INCISION; * Bruising or purple discoloration of the skin near the puncture site is common. * You may shower only, no bathtub bathing for 5 days. Be careful to avoid slipping as your leg may feel stiff. * If a closure device was used on your femoral artery, please see the attached guide regarding care of the device and your leg. * Leave dressing on FOR 24 hours. CARE OF YOUR WRIST INCISION; * Bruising or purple discoloration of the skin near the puncture site is common. * You may shower. * DO NOT submerge wrist. * Leave dressing on FOR 24 hours. LUCIA XIAO MD Dec 04, 2022 06:26
[2022-12-04 07:59] VITALS: BP 165/71
[2022-12-04] MEDS: GABAPENTIN 100 MG (NEURONTIN) CAP PO SCH ×2 (08:15→14:19)
[2022-12-04] MEDS: PANTOPRAZOLE 40 MG (PROTONIX) TAB PO SCH (08:15)
--- NOTE | 2022-12-04 08:22 | Cardiology Progress Note ---
Subjective Date Seen by Provider: Dec 04, 2022 Time Seen by Provider: 08:21 Subjective/Events-last exam Patient is laying down in bed, feeling better. No new complaint. Review of Systems General: No Chills, No Night Sweats, No Fatigue, No Malaise, No Appetite, No Other HEENT: No Head Aches, No Visual Changes, No Eye Pain, No Ear Pain, No Dysphasia, No Sinus Congestion, No Post Nasal Drip, No Sore Throat, No Other Pulmonary: No Dyspnea, No Cough, No Pleuritic Chest Pain, No Other Cardiovascular: No: Chest Pain, Palpitations, Orthopnea, Paroxysmal Noc. Dyspnea, Edema, Lt Headedness, Other Objective-Cardiology Exam Last Set of Vital Signs Vital Signs 12/04/22 07:59 Temp 36.9 Pulse 64 Resp 16 B/P (MAP) 165/71 (102) Pulse Ox 92 O2 Delivery Nasal Cannula O2 Flow Rate 2.00 I&O Intake and Output0 12/04/22 00:00 Intake Total 770 ml Output Total 650 ml Balance 120 ml Intake Oral 770 ml Output Urine Total 650 ml # Voids 6 General: Alert, Oriented X3, Cooperative HEENT: Atraumatic, PERRLA Neck: Supple, No JVD, No Thyromegaly Lungs: Clear to Auscultation, Normal Air Movement Heart: Regular Rate, Normal S1, Normal S2, No Murmurs Abdomen: Normal Bowel Sounds, Soft, No Tenderness, No Hepatosplenomegaly, No Masses Extremities: No Clubbing, No Cyanosis, No Edema, Normal Pulses, No Tenderness/Swelling Skin: No Rashes, No Breakdown, No Significant Lesion Neuro: Normal Gait, Normal Speech, Strength at 5/5 X4 Ext, Normal Tone, Sensation Intact Psych/Mental Status: Mental Status NL, Mood NL Results Lab Laboratory Tests 12/04/22 04:10 A/P-Cardiology Admission Diagnosis Syncope Elevated troponin CAD HTN Assessment/Plan Syncope, most probably secondary to high-grade AV block and sinus node dysfunction Patient was having sinus bradycardia and multiple pauses During pacemaker implantation and testing the atrial pacing at a rate of 80-90 patient developed complete heart block Status post dual-chamber pacemaker implantation, currently pacemaker dependent Okay for discharge and follow-up as an outpatient Mildly elevated troponin, type II myocardial infarction Known to have coronary artery disease with small vessel disease distally, last stress test was done in April 2021 with no significant ischemia Will need to have stress test as an outpatient Coronary artery disease, Cardiac catheterization was carried out on April 18, 2020 showing severe long segment stenosis in the proximal and midright coronary artery with deployment of 2 overlapping stent both are 2.523 mm expanded to 2.8 with excellent results. There is an area of moderate stenosis proximal to the stent that was treated medically, LAD and circumflex artery has lkjn-nh-vmhjcmti disease. Stress test done April 2021 showing no ischemia or infarct. 2D echo was done in March 2020 showing normal LV size, mild LVH, EF 55 to 65%, grade 1 diastolic dysfunction, left atrial dilation 5.4 cm, aortic valve sclerosis, PA pressure 25 to 30 mmHg. I will reevaluate 2D Echo. Hypertension, restart home blood pressure medications and continue to monitor. Hyperlipidemia, maintained on statin as outpatient. I will evaluate lipid profile. Peripheral vascular disease, Bilateral runoff to the lower extremities done on April 18, 2020 showing total occlusion of the right anterior tibial artery with klay-bz-nwzjsgna disease in the right SFA, total occlusion of the left anterior tibial artery with good flow through the posterior tibial and peroneal artery with [id number] disease in the left SFA. Nonobstructive disease. Patient has wound to LLE at mid anterior east, present for 2-3 months. Underwent peripheral angiogram on 04/24/21 showing severe peripheral arterial disease on the left lower extremity with successful balloon angioplasty to the tiobioperoneal trunk and peroneal artery, occluded anterior tibial artery with failed attempt for intervention and severe stenosis at the ostial posterior tibial artery with failed attempt for intervention. Total occlusion of the right anterior tibial artery with severe stenosis in the right posterior tibial art sabine. Seen by Dr Huston, had angiogram and intervention, I do not have the report of that intervention. Patient was referred from Dr. Huston's office to the vein clinic He was diagnosed with venous stasis ulcers in addition to the ischemic ulcers and he was diagnosed with venous stasis ulcers in addition to the ischemic ulcers In July 2021 patient underwent balloon angioplasty to the distal left anterior tibial artery and ostial left posterior tibial artery with good results. Patient reports that he has ablation done and also in [place] Patient is having more cramps in his lower extremities, had an abnormal THOMAS bilaterally which has been worsening. We discussed the possibility of referring him back to Dr. Huston versus angiogram in [place]. Peripheral angiogram was done on July 02, 2022 showing subtotal occlusion of the left posterior tibial artery and peroneal artery with successful balloon angioplasty with [place] 3 x 100 with excellent results, the left anterior tibial artery is small artery with moderate diffuse disease. There was severe stenosis distally. There is mild to moderate stenosis in the left SFA and left common femoral artery. The right side there was mild to moderate stenosis in the right SFA. Patient was scheduled for evaluation with the vein clinic at [place] Chronic kidney disease stage III, had transient episode of renal failure while on Victoza, improved, continue to monitor renal function closely, follows with nephrology Chronic LLE peripheral edema, maintained on chlorthalidone Mild bilateral carotid stenosis, ultrasound was done in June 2022 Diabetes mellitus, followed and managed by primary care physician LUCIA SCHNEIDER MD Dec 04, 2022 08:22
[2022-12-04] MEDS ORDERED: ALLOPURINOL 100 MG (ZYLOPRIM) TAB PO SCH (09:00)
[2022-12-04] MEDS ORDERED: MAGNESIUM OXIDE (MAG-OX)400 MG TAB PO SCH (09:00)
[2022-12-04] MEDS ORDERED: LOSARTAN 50 MG (COZAAR) TAB PO SCH (09:00)
[2022-12-04] MEDS ORDERED: CALCITRIOL 0.25 MCG (ROCALTROL) CAPSULE PO SCH (09:00)
[2022-12-04] MEDS ORDERED: OMEGA 3 (FISH OIL) 1000 MG CAP PO SCH (09:00)
[2022-12-04] MEDS ORDERED: NON-FORMULARY MEDICATION 1 EA EA (Cholecalciferol (Vitamin D3) (Vitamin D3) 125 MCG) PO SCH (09:00)
--- NOTE | 2022-12-04 10:25 | Diagnostic Imaging Report ---
PROCEDURE: CT head without contrast. TECHNIQUE: Multiple contiguous axial images were obtained through the brain without the use of intravenous contrast. Auto Exposure Controls were utilized during the CT exam to meet ALARA standards for radiation dose reduction. INDICATION: Fall. Comparison is made with prior head CT from 09/26/2022. Ventricles and sulci appear stable. Periventricular low-attenuation is stable as well consistent with microvascular ischemia. There is no sulcal effacement or midline shift. No acute intra-axial or extra-axial hemorrhage is detected. Cisterns are patent. Visualized paranasal sinuses are clear. IMPRESSION: Stable chronic changes. No acute intracranial process is detected. Dictated by: Dictated on workstation # [id number]
[2022-12-04 11:58] VITALS: BP 177/79
[2022-12-04] MEDS ORDERED: CEPH500T PO (12:04)
--- NOTE | 2022-12-04 13:00 | Discharge Summary ---
KARIME WALTERS 12/04/22 1259: Diagnosis/Chief Complaint Date of Admission Dec 02, 2022 at 19:16 Date of Discharge Discharge Date: Dec 04, 2022 Discharge Time: 12:50 Admission Diagnosis Primary Care Sam Lujan DO Discharge Diagnosis Syncope -Considered to be secondary to afib with bradycardia and 1st degree AV-block with multiple sinus pauses identified on telemetry -Permanent dual-chamber pacemaker placed 12/03/22 -Thought to be resolved, but close follow up with cardiology and PCP recommended upon discharge Elevated troponin -12/02/21 17:44 Trop I: 0.035 repeat 12/03/22 05:06 Trop I: 0.047 -No ST elevation on initial EKG. -thought to be secondary to arrhythmias noted and resolved with Tx. CAD w/ History of stenting -2 stents placed in RCA by Dr. Xiao April 18, 2020 DM Type 2 -restart home meds Hypertension CKD Stage 3b -12/03/22 Cr 1.73 and GFR 40. [place] Palsy -Presented to ED 09/26/23 for left sided facial droop. stroke was ruled out and patient was sent home with valtrex 1000mg BID for 5 days. Failed to resolve. History of PVD affecting left leg -Chronic. continue to follow with Dr. Xiao Cellulitis of LLE -Ongoing. Take abx as prescribed. Sleep apnea -chronic Discharge Summary Procedures/Consulations Cardiology: Dr. Xiao -12/03/22 Permanent dual chamber pacemaker placed Discharge Physical Exam Allergies: Coded Allergies: lisinopril (Verified Adverse Reaction, Unknown, affects kidneys, 07/02/22) metformin (Verified Adverse Reaction, Unknown, affects kidneys, 07/02/22) Vitals & I&Os Vital Signs Date Time Temp Pulse Resp B/P (MAP) Pulse Ox O2 Delivery O2 Flow Rate FiO2 12/04/22 12:32 60 12/04/22 11:58 36.5 18 177/79 (111) 96 Nasal Cannula 2.00 General Appearance: No Apparent Distress, WD/WN HEENT: PERRL/EOMI, Pharynx Normal, Moist Mucous Membranes Respiratory: Chest Non Tender, Lungs Clear, Normal Breath Sounds, No Respiratory Distress Cardiovascular: Regular Rate, Rhythm, No Murmur, Normal Peripheral Pulses Gastrointestinal: Normal Bowel Sounds, Non Tender, Soft Extremity: Normal Capillary Refill, No Calf Tenderness, Other Skin: Other (Warm and dry with normal coloring except as stated above) Neurologic/Psychiatric: Alert, Oriented x3, Normal Mood/Affect, Other (left sided facial drooping unchanged) Hospital Course Pt is a 77 year old male who was admitted at [facility] from 12/02/22-12/04/22 following a syncopal episode at home. In the ED he was found to have an elevated troponin although no ST changes on EKG. He was admitted seen by both the hospitalist and cardiolgy team. During his stay he was on telemtry and found to have alternating paroxysmal atrial fibrilation with bradycardia and first-degree AV-roel and multiple sinus pauses. Dr. Xiao took patient to the photofinishing laboratory worker and placed a permanent dual-chamber pacemaker on 12/03/22. He had a head CT 12/04 which ruled out any acute damage from his fall. He was found to have what appeared to be a small area of cellulitis on his LLE and patient was started on abx both for the cellulitis and given that he had a procedure while admitted. He will be discharged home with oral cephalexin. Labs (last 24 hrs) Laboratory Tests 12/03/22 15:48: Glucometer 212H 12/03/22 20:09: Glucometer 145H 12/04/22 04:10: White Blood Count 11.5H, Red Blood Count 5.86H, Hemoglobin 13.9, Hematocrit 47, Mean Corpuscular Volume 79L, Mean Corpuscular Hemoglobin 24L, Mean Corpuscular Hemoglobin Concent 30L, Red Cell Distribution Width 16.8H, Platelet Count 226, Mean Platelet Volume 10.2, Sodium Level 138, Potassium Level 3.7, Chloride Level 103, Carbon Dioxide Level 26, Anion Gap 9, Blood Urea Nitrogen 22H, Creatinine 1.55H, Estimat Glomerular Filtration Rate 46, BUN/Creatinine Ratio 14, Glucose Level 124H, Calcium Level 8.9 12/04/22 10:40: Glucometer 150H Patient resulted labs reviewed. Pending Labs Laboratory Tests 12/04/22 10:40: Glucometer 150 Discussion & Recommendations Follow up with cardiology and follow their post-pacemaker placement instruc tions. Please see Dr. Thornton discharge instructions and if more details are needed regarding hospital stay then please refer to attached documents. If patient begins to experience lightheadedness, dizziness, chest pain, or shortness of breath his threshold to return should be low or his PCP should be contacted. Discharge Home Medications: Active Scripts Active Cephalexin 500 Mg Tablet 500 Mg PO BID Reported Losartan Potassium 50 Mg Tablet 50 Mg PO DAILY Cyanocobalamin Injection (Cyanocobalamin) 1,000 Mcg/Ml Inj 1,000 Mcg IM EVERY 3 WEEKS Testosterone Cypionate 200 Mg/Ml Vial 200 Mg IM EVERY 3 WEEKS Klor-Con M10 (Potassium Chloride) 10 Meq Tab.er.prt 20 Meq PO TID TAKES 2 (10MEQ) TABS Metoprolol Succinate 100 Mg Tab.er.24h 50 Mg PO 1800 TAKES OF A 100MG TAB Calcitriol 0.25 Mcg Capsule 0.25 Mcg PO DAILY Novolog Flexpen (Insulin Aspart) 100 Unit/Ml (3 Ml) Solution 35 Units SQ HS Furosemide 40 Mg Tablet 40 Mg PO DAILY Pantoprazole Sodium 40 Mg Tablet.dr 40 Mg PO BID Clopidogrel (Clopidogrel Bisulfate) 75 Mg Tablet 75 Mg PO DAILY Metoprolol Succinate 100 Mg Tab.er.24h 100 Mg PO DAILY Vitamin D3 (Cholecalciferol (Vitamin D3)) 125 Mcg Capsule 125 Mcg PO DAILY Aspirin EC (Aspirin) 81 Mg Tablet.dr 81 Mg PO DAILY Amlodipine Besylate 10 Mg Tablet 10 Mg PO DAILY Allopurinol 100 Mg Tablet 100 Mg PO DAILY Lantus Solostar (Insulin Glargine,Hum.rec.anlog) 100 Unit/1 Ml Insuln.pen 50 Unit SQ HS Alogliptin (Alogliptin Benzoate) 12.5 Mg Tablet 12.5 Mg PO DAILY Chlorthalidone 25 Mg Tablet 25 Mg PO DAILY Novolog Flexpen (Insulin Aspart) 100 Unit/Ml (3 Ml) Solution 30 Units SQ WM Magnesium Oxide 400 Mg Tablet 400 Mg PO DAILY Fish Oil 1,000 mg Softgel ([place]-3 Fatty Acids/Fish Oil) 1 Each Capsule 1,000 Mg PO DAILY Tramadol HCl 50 Mg Tablet 100 Mg PO Q6H PRN TAKES 2 (50MG) TABS Gabapentin 100 Mg Capsule 100 Mg PO QID Atorvastatin Calcium 20 Mg Tablet 20 Mg PO HS Instructions to patient/family Please see electronic discharge instructions given to patient. DENI CORTEZ MD 12/05/22 1428: Discharge Summary Discharge Physical Exam Allergies: Coded Allergies: lisinopril (Verified Adverse Reaction, Unknown, affects kidneys, 07/02/22) metformin (Verified Adverse Reaction, Unknown, affects kidneys, 07/02/22) Discussion & Recommendations Discharge Planning: >30 minutes discharge planning Supervisory-Addendum Brief Verification & Attestation Participated in pt care: history, MDM, physical Personally performed: exam, history, MDM, supervision of care Care discussed with: Medical Student Procedures: n/a Results interpretation: Verified all documentation Verification and Attestation of Medical Student E/M Service A medical student performed and documented this service in my presence. I reviewed and verified all information documented by the medical student and made modifications to such information, when appropriate. I personally performed the physical exam and medical decision making. Deni Cortez, Dec 05, 2022,14:28 KARIME WALTERS Dec 04, 2022 12:59 DENI CORTEZ MD Dec 05, 2022 14:28
== END 2022-12-04 15:25 | disposition home or self-care (01) ==
LOC: EDUNIT# 17:30 → ER 17:31 → CSD 19:16
PROVIDERS: ADMIT Internal Medicine; ATTEND Internal Medicine
DX: R55 Syncope and collapse (principal); I48.0 Paroxysmal atrial fibrillation; I44.0 Atrioventricular block, first degree; L03.116 Cellulitis of left lower limb; E11.22 Type 2 diabetes mellitus with diabetic chronic kidney disease; I12.9 Hypertensive chronic kidney disease with stage 1 through stage 4 chronic kidney disease, or unspecified chronic kidney disease; N18.32 Chronic kidney disease, stage 3b; G51.0 Bell's palsy; G47.30 Sleep apnea, unspecified; I25.10 Atherosclerotic heart disease of native coronary artery without angina pectoris; I65.23 Occlusion and stenosis of bilateral carotid arteries; I21.A1 Myocardial infarction type 2; Z95.5 Presence of coronary angioplasty implant and graft; Z86.79 Personal history of other diseases of the circulatory system; Z87.891 Personal history of nicotine dependence; Z79.899 Other long term (current) drug therapy; Z79.82 Long term (current) use of aspirin; Z79.4 Long term (current) use of insulin; Z79.02 Long term (current) use of antithrombotics/antiplatelets
CPT/HCPCS: 33208; 36410; 36415; 70450; 71045; 76937; 80048; 80053; 80306; 81000; 82947; 84484; 85007; 85025; 85027; 93005; 93306; 94760; 94761; 96366; 96375; 96376

== ENCOUNTER 2023-01-05 16:28 | Emergency (ER) | payer OTHER, MEDICARE ==
[~2023-01-05] VITALS: Ht 163 cm; Wt 84.0 kg
[~2023-01-05 16:28] MED LIST changes: +CNC1KV IM; +LOSA50TA63 PO; +POTA-164 PO
--- NOTE | 2023-01-05 16:54 | ED Neurological Problem ---
General Chief Complaint: Neurological Problems Stated Complaint: POSS SEIZURE Nursing Triage Note: Patient ambulatory to ER w c/o seizure like activity at home. Patient's states patient has had 3 possible seizures since Thursday. Last episode happened today approx 0430. Patient fell and injured L wrist. hx diabetes, hypertension, basil cell brain cancer 2yrs ago currently in remission. Patient also had a pacemaker placed by [employer] in Nov 2022 for A-Flutter. Source: patient, family Exam Limitations: no limitations (ASIA SPENCE MD) History of Present Illness Date Seen by Provider: Jan 05, 2023 Time Seen by Provider: 16:54 Initial Comments Patient is a 77-year-old male who presents to the emergency room with his with a chief concern of "twitching" all over periodically since Thursday. His states that he had episodes throughout the day on Thursday where his arms would shake and he would twitch all over. He started having some confusion related to this that would last about 20 or 30 minutes after the twitching stopped. He had 1 episode yesterday and third episode at 430 this morning. He fell related to the twitching/seizure-like activity this morning and injured his left wrist. He bumped his head on a door frame. He did not have a loss of consciousness. His states that during these episodes he is awake and the patient himself states that he is aware. He does not have a history of prior seizure disorder. They called his primary care physician, Dr. Lujan's office today and they instructed him to contact Dr. Xiao as there was some thought that may be his pacemaker may be contributing to these episodes. They encouraged him to come to the emergency department. No recent illnesses such as fevers, chills, cough or congestion. No nausea or vomiting. No incontinence during these episodes. 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 He has residual left- sided facial weakness. At presentation he feels "normal". No confusion is observable. His states that he has been seeing people in the house that are not there and at times does not make sense. He has not skipped or missed any of his routine daily medications. In reviewing his current medication list he is on tramadol 2 tablets twice daily. History of diabetes, hypertension, a flutter with a pacer, chronic kidney disease, basal cell cancer. Timing/Duration: other (3 days) Severity: moderate Associated Symptoms: confusion, other (weakness/fall'"twitching", "like seizures") (ASIA SPENCE MD) Allergies and Home Medications Allergies Coded Allergies: lisinopril (Verified Adverse Reaction, Unknown, affects kidneys, 07/02/22) metformin (Verified Adverse Reaction, Unknown, affects kidneys, 07/02/22) Patient Home Medication List Home Medication List Reviewed: Yes (ASIA SPENCE MD) Allopurinol (Allopurinol) 100 Mg Tablet, 100 MG PO DAILY, (Reported) Entered as Reported by: BERTIN BRADSHAW on 04/18/20 1508 Alogliptin Benzoate (Alogliptin) 12.5 Mg Tablet, 12.5 MG PO DAILY, (Reported) Entered as Reported by: KATIE RUTH on 04/18/20 1016 Amlodipine Besylate (Amlodipine Besylate) 10 Mg Tablet, 10 MG PO DAILY, (Reported) Entered as Reported by: BERTIN BRADSHAW on 04/18/20 1508 Aspirin (Aspirin EC) 81 Mg Tablet.dr, 81 MG PO DAILY, (Reported) Entered as Reported by: BERTIN BRADSHAW on 04/24/21 1045 Atorvastatin Calcium (Atorvastatin Calcium) 20 Mg Tablet, 20 MG PO HS, (Reported) Entered as Reported by: MIS PARSONS on 08/19/17 1406 Calcitriol (Calcitriol) 0.25 Mcg Capsule, 0.25 MCG PO DAILY, (Reported) Entered as Reported by: ESPINOZA BRYAN on 07/02/22 1137 Cephalexin (Cephalexin) 500 Mg Tablet, 500 MG PO BID Prescribed by: DENI CRUM on 12/04/22 1204 Chlorthalidone (Chlorthalidone) 25 Mg Tablet, 25 MG PO DAILY, (Reported) Entered as Reported by: KATIE RUTH on 04/18/20 1016 Cholecalciferol (Vitamin D3) (Vitamin D3) 125 Mcg Capsule, 125 MCG PO DAILY, (Reported) Entered as Reported by: BERTIN BRADSHAW on 04/24/21 1045 Clopidogrel Bisulfate (Clopidogrel) 75 Mg Tablet, 75 MG PO DAILY, (Reported) Entered as Reported by: BERTIN BRADSHAW on 04/24/21 1045 Cyanocobalamin (Cyanocobalamin Injection) 1,000 Mcg/Ml Inj, 1,000 MCG IM EVERY 3 WEEKS, (Reported) Entered as Reported by: BERTIN BRADSHAW on 12/03/22 1229 Furosemide (Furosemide) 40 Mg Tablet, 40 MG PO DAILY, (Reported) Entered as Reported by: ESPINOZA BRYAN on 07/02/22 1137 Gabapentin (Gabapentin) 100 Mg Capsule, 100 MG PO QID, (Reported) Entered as Reported by: MIS PARSONS on 08/19/17 1406 Insulin Aspart (Novolog Flexpen) 100 Unit/Ml (3 Ml) Solution, 30 UNITS SQ WM, (Reported) Entered as Reported by: KATIE RUTH on 04/18/20 1016 Insulin Aspart (Novolog Flexpen) 100 Unit/Ml (3 Ml) Solution, 35 UNITS SQ HS, (Reported) Entered as Reported by: ESPINOZA BRYAN on 07/02/22 1137 Insulin Glargine,Hum.rec.anlog (Lantus Solostar) 100 Unit/1 Ml Insuln.pen, 50 UNIT SQ HS, (Reported) Entered as Reported by: BERTIN BRADSHAW on 04/18/20 1508 Losartan Potassium (Losartan Potassium) 50 Mg Tablet, 50 MG PO DAILY, (Reported) Entered as Reported by: BERTIN BRADSHAW on 12/03/22 1500 Magnesium Oxide (Magnesium Oxide) 400 Mg Tablet, 400 MG PO DAILY, (Reported) Entered as Reported by: MIS PARSONS on 08/20/17 0848 Metoprolol Succinate (Metoprolol Succinate) 100 Mg Tab.er.24h, 100 MG PO DAILY, (Reported) Entered as Reported by: BERTIN BRADSHAW on 04/24/21 1045 Metoprolol Succinate (Metoprolol Succinate) 100 Mg Tab.er.24h, 50 MG PO 1800, (Reported) Entered as Reported by: BERTIN BRADSHAW on 12/03/22 1224 [place]-3 Fatty Acids/Fish Oil (Fish Oil 1,000 mg Softgel) 1 Each Capsule, 1,000 MG PO DAILY, (Reported) Entered as Reported by: MIS PARSONS on 08/20/17 0844 Pantoprazole Sodium (Pantoprazole Sodium) 40 Mg Tablet.dr, 40 MG PO BID, (Reported) Entered as Reported by: BERTIN BRADSHAW on 04/24/21 1049 Potassium Chloride (Klor-Con M10) 10 Meq Tab.er.prt, 20 MEQ PO TID, (Reported) Entered as Reported by: BERTIN BRADSHAW on 12/03/22 1229 Testosterone Cypionate (Testosterone Cypionate) 200 Mg/Ml Vial, 200 MG IM EVERY 3 WEEKS, (Reported) Entered as Reported by: BERTIN BRADSHAW on 12/03/22 1229 Tramadol HCl (Tramadol HCl) 50 Mg Tablet, 100 MG PO Q6H PRN for PAIN-MODERATE (5-7), (Reported) Entered as Reported by: MIS PARSONS on 08/19/17 1442 Review of Systems Review of Systems Constitutional: see HPI Eyes: Drainage (left eye - chronic) Ears, Nose, Mouth, Throat: ear pain (left ear "trouble" related to prior Juarez's Palsy) Respiratory: no symptoms reported Cardiovascular: no symptoms reported Gastrointestinal: no symptoms reported Genitourinary: no symptoms reported Musculoskeletal: no symptoms reported Skin: no symptoms reported Psychiatric/Neurological: Other ("twitching") (ASIA SPENCE MD) All Other Systems Reviewed Negative Unless Noted: Yes (ASIA SPENCE MD) Past Csdsuej-Jzflrs-Koekil Hx Patient Social History Tobacco Use?: No Substance use?: No Alcohol Use?: No (ASIA SPENCE MD) Immunizations Up To Date Tetanus Booster (TDap): Unknown First/Initial COVID19 Vaccinat: 2020 Second COVID19 Vaccination Aime: 2020 Third COVID19 Vaccination Date: 2020 COVID19 Vaccine Makeup Instructor: unknown (ASIA SPENCE MD) Seasonal Allergies Seasonal Allergies: Yes (ASIA SPENCE MD) Past Medical History Surgery/Hospitalization HX: foot, knee, shoulder, back sx HTN, CKD STAGE 3, DM Coronary Stent, Eye Surgery, Tonsillectomy Respiratory: Yes Sleep Apnea Currently Using CPAP: No Cardiac: Yes Coronary Artery Disease, High Cholesterol, Hypertension Neurological: No Reproductive Disorders: No Sexually Transmitted Disease: No Renal Failure Gastrointestinal: Yes Gastroesophageal Reflux, Irritable Bowel Arthritis, Chronic Back Pain, Fractures Diabetes, 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 0.0oz. 68.154376ad; 31.00 BMI Method:Stated General Appearance: WD/WN, no apparent distress HEENT: other (left sided facial droop) (ASIA SPENCE MD) Stroke NIH Stroke Scale Assessment Gaze: Normal (0), Total: Stroke Thrombolytic Exclusion Age 18 or Over: Yes Acute intenal hemorrhage: No History of CVA: No Uncontrolled Coagulation Defec: No Intracranial Hemorrhage: No Severe Hypertension: No GI or Bleed: No Subarachnoid Hemorrhage: No Intracranial Neoplasm/Aneurysm: No Oral Anticoagulants: Yes Surgery or Trauma: No Puncture of Non-Compressible V: No Recent CPR: No Diabetic Hemorrhagic Retinopat: No Organ Biopsy: No Recent Obstetric Delivery: No Glucose: No NIH Stoke Scale >22: No Bacterial Endocarditis: No Pericarditis: No Improving Symptoms: No (ASIA SPENCE MD) Progress/Results/Core Measures Results/Orders Lab Results Laboratory Tests Test 01/05/23 17:15 Range/Units White Blood Count 15.2 H 4.3-11.0 10^3/uL Red Blood Count 6.75 H 4.30-5.52 10^6/uL Hemoglobin 15.6 13.3-17.7 g/dL Hematocrit 51 40-54 % Mean Corpuscular Volume 76 L 80-99 fL Mean Corpuscular Hemoglobin 23 L 25-34 pg Mean Corpuscular Hemoglobin Concent 30 L 32-36 g/dL Red Cell Distribution Width 18.6 H 10.0-14.5 % Platelet Count 264 130-400 10^3/uL Mean Platelet Volume 10.7 9.0-12.2 fL Immature Granulocyte % (Auto) 1 % Neutrophils (%) (Auto) 81 H 42-75 % Lymphocytes (%) (Auto) 8 L 12-44 % Monocytes (%) (Auto) 7 0-12 % Eosinophils (%) (Auto) 2 0-10 % Basophils (%) (Auto) 1 0-10 % Neutrophils # (Auto) 12.4 H 1.8-7.8 10^3/uL Lymphocytes # (Auto) 1.2 1.0-4.0 10^3/uL Monocytes # (Auto) 1.1 H 0.0-1.0 10^3/uL Eosinophils # (Auto) 0.2 0.0-0.3 10^3/uL Basophils # (Auto) 0.1 0.0-0.1 10^3/uL Immature Granulocyte # (Auto) 0.1 0.0-0.1 10^3/uL Neutrophils % (Manual) 84 % Lymphocytes % (Manual) 10 % Monocytes % (Manual) 5 % Eosinophils % (Manual) 1 % Basophils % (Manual) 0 % Band Neutrophils 0 % Polychromasia SLIGHT Anisocytosis MODERATE Sodium Level 140 135-145 MMOL/L Potassium Level 3.9 3.6-5.0 MMOL/L Chloride Level 101 98-107 MMOL/L Carbon Dioxide Level 28 21-32 MMOL/L Anion Gap 11 5-14 MMOL/L Blood Urea Nitrogen 31 H 7-18 MG/DL Creatinine 2.08 H 0.60-1.30 MG/DL Estimat Glomerular Filtration Rate 32 BUN/Creatinine Ratio 15 Glucose Level 194 H 70-105 MG/DL Calcium Level 9.9 8.5-10.1 MG/DL Corrected Calcium 9.8 8.5-10.1 MG/DL Total Bilirubin 0.5 0.1-1.0 MG/DL Aspartate Amino Transf (AST/SGOT) 39 H 5-34 U/L Alanine Aminotransferase (ALT/SGPT) 32 0-55 U/L Alkaline Phosphatase 86 40-136 U/L Total Protein 6.8 6.4-8.2 GM/DL Albumin 4.1 3.2-4.5 GM/DL (BRIANNE FRAUSTO MD) Vital Signs/I&O 01/05/23 16:39 Temp 36.5 Pulse 64 Resp 16 B/P (MAP) 176/74 (108) Pulse Ox 94 O2 Delivery Room Air (BRIANNE FRAUSTO MD) Blood Pressure Mean: 108 Progress Progress Note : Progress Note I did assume care of the patient from Dr. Spence pending UA. We did review labs which did show slightly elevated white count and chemistries did show creatinine of 2.08. Hemoglobin does appear to be slightly concentrated and I do believe there is a component of dehydration. Patient does have history of chronic kidney disease. CT of the head did not show any acute findings and x- ray of the wrist and chest x-ray did not show any acute findings. We have added additional IV fluid. Monitor patient. 2100: Patient actually went to the bathroom without providing sample. He denies dysuria. In talking with the more and with the patient, he has had some behavioral disturbance over the last several weeks to months and increased tiredness and intermittently has hallucinations. I would consider organic brain syndrome including dementia and Parkinson's disease. I did discuss at length with the patient and his that he really needs to have neurology follow-up. We will send a copy of the chart to Dr. Goff of then and they can help establish neurology care. No indication for admission or transfer at this point. Patient is asking for some documentation to show that he was here for this visit which will be given during discharge. [facility] Discharged home with return precautions. Patient and family verbalized understanding instructions and agreement with plan. (BRIANNE FRAUSTO MD) Initial ECG Impression Date: Jan 05, 2023 Initial ECG Impression Time: 17:30 Initial ECG Rate: 61 Comment AV PACED RHYTHM (ASIA SPENCE MD) Diagnostic Imaging Diagonstic Imaging: CT Plain Films/CT/US/NM/MRI: head Comments [facility]. [place], [place] NAME: SIMI COVARRUBIAS Aram [facility] REC#: [id number] PT STATUS: REG ER : 1945 PHYSICIAN: ASIA SPENCE MD ADMIT DATE: 01/05/23/ER Signed Date of Exam:01/05/23 CT HEAD WO EXAMINATION: CT head without contrast. TECHNIQUE: Multiple contiguous axial images were obtained through the brain without the use of intravenous contrast. All CT scans use one or more of the following dose optimizing techniques: automated exposure control, MA and/or KvP adjustment based on patient size and exam type or iterative reconstruction. HISTORY: "seizure like" activity, with period of AMS after COMPARISON: 12/04/1022 FINDINGS: The ventricles and sulci are normal. Mild hypodensities throughout the supratentorial white matter of both cerebral hemispheres. No acute intracranial hemorrhage or abnormal extra-axial fluid collections are present. No hyperdense vessel. The calvarium is intact. The mastoid air cells are clear. The visualized paranasal sinuses are clear. Surgical changes from cataract repair. Surgical changes of the right posterior scalp. IMPRESSION: 1. No acute intracranial abnormality. 2. Chronic microangiopathy. Dictated by: Dictated on workstation # [id number] Dict: 01/05/231754 Trans: 01/05/231805 [facility] [id number] Interpreted by: ROGELIO WALDRON DO Electronically signed by: ROGELIO WALDRON DO 01/05/231805 Diagonstic Imaging: Xray Plain Films/CT/US/NM/MRI: other Comments [facility] [place] NAME: SIMI COVARRUBIAS [facility] REC#: [id number] PT STATUS: REG ER : 1945 PHYSICIAN: ASIA SPENCE MD ADMIT DATE: 01/05/23/ER Signed Date of Exam:01/05/23 WRIST, LEFT, 3 VIEWS OR MORE EXAMINATION: Left wrist radiograph EXAM DATE: 01/05/2023 5:39 PM COMPARISON: None available. HISTORY: left wrist pain TECHNIQUE: Three views. FINDINGS: There is no acute fracture, dislocation, or destructive osseous process. The joint spaces are normal. The soft tissues are normal. IMPRESSION: 1. No acute osseous abnormality. Dictated by: Dictated on workstation # [id number] Dict: 01/05/231744 Trans: 01/05/231805 [id number] Interpreted by: ROGELIO WALDRON DO Electronically signed by: ROGELIO WALDRON DO 01/05/231805 Diagonstic Imaging: Xray Plain Films/CT/US/NM/MRI: chest Comments [facility]. [place], [place] NAME: SIMI COVARRUBIAS [facility] REC#: [id number] PT STATUS: REG ER : 1945 PHYSICIAN: ASIA SPENCE MD ADMIT DATE: 01/05/23/ER Signed Date of Exam:01/05/23 CHEST 1 VIEW, AP/PA ONLY EXAMINATION: Chest 1 view HISTORY: twitching; ams COMPARISON: 12/03/2022. FINDINGS: Heart size and pulmonary vasculature are normal. A left-sided cardiac device is present. The lungs are clear without consolidation, pleural effusion, or pneumothorax. The osseous structures are intact. IMPRESSION: 1. No acute radiographic abnormality in the chest. Dictated by: Dictated on workstation # [id number] Dict: 01/05/231744 Trans: 01/05/231805 AS6 [id number] Interpreted by: ROGELIO WALDRON DO Electronically signed by: ROGELIO WALDRON DO 01/05/231805 (BRIANNE FRAUSTO MD) Departure Impression Primary Impression: Tremors of nervous system Additional Impression: Weakness Disposition: 01 HOME, SELF-CARE Condition: Stable Departure-Patient Inst. Decision time for Depature: 21:11 (BRIANNE FRAUSTO MD) Referrals: NELLA LUJAN DO (PCP/Family) Primary Care Physician Patient Instructions: Generalized Weakness, Tremor Add. Discharge Instructions: All discharge instructions reviewed with patient and/or family. Voiced understanding. Call Dr. Lujan's office in the morning to discuss referral to neurology. I think a neurology follow-up will be very helpful for you. Ensure that you are drinking an adequate amount of fluids. Return for worse pain, fever, vomiting, weakness, breathing problems or other concerns as needed. Copy Copies To 1: NELLA LUJAN KATHRYN M MD Jan 05, 2023 16:54 BRIANNE FRAUSTO MD Jan 05, 2023 21:06
[2023-01-05 17:28] LABS: BASOPHILS # (AUTO) 0.1 10^3/uL (0.0-0.1); BASOPHILS % (AUTO) 1 % (0-10); EOSINOPHILS # (AUTO) 0.2 10^3/uL (0.0-0.3); EOSINOPHILS % (AUTO) 2 % (0-10); HEMATOCRIT 51 % (40-54); HEMOGLOBIN 15.6 g/dL (13.3-17.7); LYMPHOCYTES # (AUTO) 1.2 10^3/uL (1.0-4.0); LYMPHOCYTES % (AUTO) 8 % (12-44); MEAN CORPUSCULAR HEMOGLOBIN 23 pg (25-34); MEAN CORPUSCULAR HGB CONC 30 g/dL (32-36); MEAN CORPUSCULAR VOLUME 76 fL (80-99); MEAN PLATELET VOLUME 10.7 fL (9.0-12.2); MONOCYTES # (AUTO) 1.1 10^3/uL (0.0-1.0); MONOCYTES % (AUTO) 7 % (0-12); NEUTROPHILS # (AUTO) 12.4 10^3/uL (1.8-7.8); NEUTROPHILS % (AUTO) 81 % (42-75); PLATELET COUNT 264 10^3/uL (130-400); WHITE BLOOD COUNT 15.2 10^3/uL (4.3-11.0)
[2023-01-05 17:35] LABS: ALBUMIN 4.1 GM/DL (3.2-4.5)
[2023-01-05 17:36] LABS: POTASSIUM 3.9 MMOL/L (3.6-5.0)
[2023-01-05 17:37] LABS: CALCIUM 9.9 MG/DL (8.5-10.1)
[2023-01-05 17:38] LABS: TOTAL PROTEIN 6.8 GM/DL (6.4-8.2)
[2023-01-05 17:40] LABS: BILIRUBIN,TOTAL 0.5 MG/DL (0.1-1.0)
[2023-01-05 17:42] LABS: CREATININE SERUM 2.08 MG/DL (0.60-1.30)
--- NOTE | 2023-01-05 17:47 | Diagnostic Imaging Report ---
EXAMINATION: Chest 1 view HISTORY: twitching; ams COMPARISON: 12/03/2022. FINDINGS: Heart size and pulmonary vasculature are normal. A left-sided cardiac device is present. The lungs are clear without consolidation, pleural effusion, or pneumothorax. The osseous structures are intact. IMPRESSION: 1. No acute radiographic abnormality in the chest. Dictated by: Dictated on workstation # [id number]
--- NOTE | 2023-01-05 17:48 | Diagnostic Imaging Report ---
EXAMINATION: Left wrist radiograph EXAM DATE: 01/05/2023 5:39 PM COMPARISON: None available. HISTORY: left wrist pain TECHNIQUE: Three views. FINDINGS: There is no acute fracture, dislocation, or destructive osseous process. The joint spaces are normal. The soft tissues are normal. IMPRESSION: 1. No acute osseous abnormality. Dictated by: Dictated on workstation # [id number]
[2023-01-05 17:55] LABS: ANISOCYTOSIS MODERATE; BAND NEUTROPHILS 0 %; BASOPHILS % (MANUAL) 0 %; EOSINOPHILS % (MANUAL) 1 %; LYMPHOCYTES % (MANUAL) 10 %; MONOCYTES % (MANUAL) 5 %; NEUTROPHILS % (MANUAL) 84 %; POLYCHROMASIA SLIGHT
--- NOTE | 2023-01-05 17:58 | Diagnostic Imaging Report ---
EXAMINATION: CT head without contrast. TECHNIQUE: Multiple contiguous axial images were obtained through the brain without the use of intravenous contrast. All CT scans use one or more of the following dose optimizing techniques: automated exposure control, MA and/or KvP adjustment based on patient size and exam type or iterative reconstruction. HISTORY: "seizure like" activity, with period of AMS after COMPARISON: 12/04/1022 FINDINGS: The ventricles and sulci are normal. Mild hypodensities throughout the supratentorial white matter of both cerebral hemispheres. No acute intracranial hemorrhage or abnormal extra-axial fluid collections are present. No hyperdense vessel. The calvarium is intact. The mastoid air cells are clear. The visualized paranasal sinuses are clear. Surgical changes from cataract repair. Surgical changes of the right posterior scalp. IMPRESSION: 1. No acute intracranial abnormality. 2. Chronic microangiopathy. Dictated by: Dictated on workstation # [id number]
[2023-01-05] MEDS ORDERED: NS IV 500 ML 500 ML IV STA (18:08)
[2023-01-05 21:24] VITALS: BP 161/80
== END 2023-01-05 21:25 | disposition home or self-care (01) ==
LOC: EDUNIT# 16:28 → ER 16:29
DX: R25.1 Tremor, unspecified (principal); R53.1 Weakness; I12.9 Hypertensive chronic kidney disease with stage 1 through stage 4 chronic kidney disease, or unspecified chronic kidney disease; E11.22 Type 2 diabetes mellitus with diabetic chronic kidney disease; N18.30 Chronic kidney disease, stage 3 unspecified; Z79.4 Long term (current) use of insulin
CPT/HCPCS: 36415; 70450; 71045; 73110; 80053; 85007; 85027; 93005

== ENCOUNTER 2023-04-03 17:57 | Inpatient (IN) | payer OTHER, MEDICARE ==
[~2023-04-03] VITALS: Ht 162.6 cm; Wt 81.5 kg
[2023-04-03] MEDS ORDERED: RT-ALBUTEROL HFA 8.5 GM INHALER IH STA (18:28)
[2023-04-03] MEDS ORDERED: DEXTROSE 50% 50 ML (IMS) SYR IV ONE ×2 (18:30→23:00)
[2023-04-03 18:50] LABS: ABG BASE EXCESS 4.9 MMOL/L (-2.5-2.5); ABG OXYGEN SATURATION 91 % (94-100); ABG PCO2 54 MMHG (35-45); ABG PH 7.36 (7.37-7.43); ABG PO2 63 MMHG (79-93)
--- NOTE | 2023-04-03 18:56 | ED General ---
General Chief Complaint: Glucose Problems Stated Complaint: LOW BLOOD SUGAR Nursing Triage Note: pt to room by ems from [place]. ems reports pt was called out for "unresponsive" ems reports pt to be pale, cool, and clammy on arrival with a blood sugar of 30. ems reports pt was found on ground, unwitnessed fall. pt is on asa and plavix. pt denies head, neck, back pain. ems reports pt last "recalled checking his glucose and taking a dose of novolog." ems reports pt o2 was mid 80s on scene and was placed on 4L O2 nasal cannula. pt o2 is 87% room air on arrival. pt placed on 4L O2 during triage and O2 came up to 94%. pt states he does not typically wear O2. pt is A&Ox4 on arrival, speech normal. Source of Information: Patient, EMS Exam Limitations: No Limitations History of Present Illness Date Seen by Provider: April 03, 2023 Time Seen by Provider: 18:54 Initial Comments This 77-year-old gentleman presents via [facility] all the way from [place] with primary complaint of unresponsive episode and hypoglycemia. His initial blood sugar for EMS was 30. They administered a 250 mL bag of D10 which improved his blood sugar to 93. Blood sugar was 63 on our assessment after arrival to the ER. EMS reported patient actually gave himself insulin once he noted his blood sugar was low at home. Patient was confused at that time and was also confused when he gave this report to EMS. Due to patient's altered mental status at the time, we are uncertain if extra insulin was administered. Patient is also noted to be hypoxic with oxygen saturation of 94% on 4 L by nasal cannula. He is not normally hypoxic and does not require oxygen supplementation at home. He was feeling unwell prior to the episode which prompted him to check his blood sugar at home. Aside from those complaints, he denies any recent symptoms of infectious illness such as cough, vomiting, diarrhea, fever, etc. Patient also complained of sore throat. Patient has history of coronary artery disease. He had moderate to severe small vessel disease on heart cath in 2020 noted in his chart. Echocardiogram 4 months ago revealed ejection fraction of 65 to 70% with grade 2 diastolic dysfunction. Allergies and Home Medications Allergies Coded Allergies: lisinopril (Verified Adverse Reaction, Unknown, affects kidneys, 07/02/22) metformin (Verified Adverse Reaction, Unknown, affects kidneys, 07/02/22) Patient Home Medication List Home Medication List Reviewed: Yes Allopurinol (Allopurinol) 100 Mg Tablet, 100 MG PO DAILY, (Reported) Entered as Reported by: BERTIN BRADSHAW on 04/18/20 1508 Alogliptin Benzoate (Alogliptin) 12.5 Mg Tablet, 12.5 MG PO DAILY, (Reported) Entered as Reported by: KATIE RUTH on 04/18/20 1016 Amlodipine Besylate (Amlodipine Besylate) 10 Mg Tablet, 10 MG PO DAILY, (Reported) Entered as Reported by: BERTIN BRADSHAW on 04/18/20 1508 Aspirin (Aspirin EC) 81 Mg Tablet.dr, 81 MG PO DAILY, (Reported) Entered as Reported by: BERTIN BRADSHAW on 04/24/21 1045 Atorvastatin Calcium (Atorvastatin Calcium) 20 Mg Tablet, 20 MG PO HS, (Reported) Entered as Reported by: MIS PARSONS on 08/19/17 1406 Calcitriol (Calcitriol) 0.25 Mcg Capsule, 0.25 MCG PO DAILY, (Reported) Entered as Reported by: ESPINOZA BRYAN on 07/02/22 1137 Cephalexin (Cephalexin) 500 Mg Tablet, 500 MG PO BID Prescribed by: DENI CRUM on 12/04/22 1204 Chlorthalidone (Chlorthalidone) 25 Mg Tablet, 25 MG PO DAILY, (Reported) Entered as Reported by: KATIE RUTH on 04/18/20 1016 Cholecalciferol (Vitamin D3) (Vitamin D3) 125 Mcg Capsule, 125 MCG PO DAILY, (Reported) Entered as Reported by: BERTIN BRADSHAW on 04/24/21 1045 Clopidogrel Bisulfate (Clopidogrel) 75 Mg Tablet, 75 MG PO DAILY, (Reported) Entered as Reported by: BERTIN BRADSHAW on 04/24/21 1045 Cyanocobalamin (Cyanocobalamin Injection) 1,000 Mcg/Ml Inj, 1,000 MCG IM EVERY 3 WEEKS, (Reported) Entered as Reported by: BERTIN BRADSHAW on 12/03/22 1229 Furosemide (Furosemide) 40 Mg Tablet, 40 MG PO DAILY, (Reported) Entered as Reported by: ESPINOZA BRYAN on 07/02/22 1137 Gabapentin (Gabapentin) 100 Mg Capsule, 100 MG PO QID, (Reported) Entered as Reported by: MIS PARSONS on 08/19/17 1406 Insulin Aspart (Novolog Flexpen) 100 Unit/Ml (3 Ml) Solution, 30 UNITS SQ WM, (Reported) Entered as Reported by: KATIE RUTH on 04/18/20 1016 Insulin Aspart (Novolog Flexpen) 100 Unit/Ml (3 Ml) Solution, 35 UNITS SQ HS, (Reported) Entered as Reported by: ESPINOZA BRYAN on 07/02/22 1137 Insulin Glargine,Hum.rec.anlog (Lantus Solostar) 100 Unit/1 Ml Insuln.pen, 50 UNIT SQ HS, (Reported) Entered as Reported by: BERTIN BRADSHAW on 04/18/20 1508 Losartan Potassium (Losartan Potassium) 50 Mg Tablet, 50 MG PO DAILY, (Reported) Entered as Reported by: BERTIN BRADSHAW on 12/03/22 1500 Magnesium Oxide (Magnesium Oxide) 400 Mg Tablet, 400 MG PO DAILY, (Reported) Entered as Reported by: MIS PARSONS on 08/20/17 0848 Metoprolol Succinate (Metoprolol Succinate) 100 Mg Tab.er.24h, 100 MG PO DAILY, (Reported) Entered as Reported by: BERTIN BRADSHAW on 04/24/21 1045 Metoprolol Succinate (Metoprolol Succinate) 100 Mg Tab.er.24h, 50 MG PO 1800, (Reported) Entered as Reported by: BERTIN BRADSHAW on 12/03/22 1224 [place]-3 Fatty Acids/Fish Oil (Fish Oil 1,000 mg Softgel) 1 Each Capsule, 1,000 MG PO DAILY, (Reported) Entered as Reported by: MIS PARSONS on 08/20/17 0844 Pantoprazole Sodium (Pantoprazole Sodium) 40 Mg Tablet.dr, 40 MG PO BID, (Reported) Entered as Reported by: BERTIN BRADSHAW on 04/24/21 1049 Potassium Chloride (Klor-Con M10) 10 Meq Tab.er.prt, 20 MEQ PO TID, (Reported) Entered as Reported by: BERTIN BRADSHAW on 12/03/22 1229 Testosterone Cypionate (Testosterone Cypionate) 200 Mg/Ml Vial, 200 MG IM EVERY 3 WEEKS, (Reported) Entered as Reported by: BERTIN BRADSHAW on 12/03/22 1229 Tramadol HCl (Tramadol HCl) 50 Mg Tablet, 100 MG PO Q6H PRN for PAIN-MODERATE (5-7), (Reported) Entered as Reported by: MIS PARSONS on 08/19/17 1442 Review of Systems Review of Systems Constitutional: see HPI EENTM: see HPI Respiratory: see HPI Cardiovascular: no symptoms reported; No chest pain Gastrointestinal: no symptoms reported Genitourinary: no symptoms reported Musculoskeletal: no symptoms reported Skin: no symptoms reported Psychiatric/Neurological: See HPI Hematologic/Lymphatic: No Symptoms Reported Immunological/Allergic: no symptoms reported Past Kazlntl-Ostmer-Uzfmmq Hx Patient Social History Tobacco Use?: No Smoking Status: Former Smoker Use of E-Cig and/or Vaping dev: No Substance use?: No Alcohol Use?: Yes Alcohol Frequency: Rarely Immunizations Up To Date Tetanus Booster (TDap): Unknown First/Initial COVID19 Vaccinat: 2020 Second COVID19 Vaccination Aime: 2020 Third COVID19 Vaccination Date: 2020 Seasonal Allergies Seasonal Allergies: Yes Past Medical History Surgery/Hospitalization HX: foot, knee, shoulder, back sx HTN, CKD STAGE 3, DM Surgeries: Yes (Pharyngectomy/uvulectomy) Abdominal, Coronary Stent, Eye Surgery, Orthopedic, Pacemaker, Tonsillectomy, Vascular Surgery (Agnioplasty for PAD) Respiratory: Yes Sleep Apnea Currently Using CPAP: No Cardiac: Yes Coronary Artery Disease, High Cholesterol, Hypertension, Peripheral Vascular (angioplasty for PAD) Neurological: No Reproductive Disorders: No Sexually Transmitted Disease: No Genitourinary: Yes Renal Failure (CKD) Gastrointestinal: Yes Gastroesophageal Reflux, Irritable Bowel Musculoskeletal: Yes Arthritis, Chronic Back Pain, Fractures Endocrine: Yes Diabetes, Insulin dep HEENT: Yes Cataract 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 0.0oz. 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) Skin: Normal Color, Warm/Dry Focused Exam Lactate Level 04/03/23 18:41: Lactic Acid Level 3.14*H 04/03/23 20:57: Lactic Acid Level 1.71 Lactic Acid Level Laboratory Tests Test 04/03/23 18:41 04/03/23 20:57 Lactic Acid Level 3.14 MMOL/L (0.50-2.00) *H 1.71 MMOL/L (0.50-2.00) Progress/Results/Core Measures Suspected Sepsis SIRS Temperature: Pulse: 61 Respiratory Rate: 16 Laboratory Tests 04/03/23 18:41: White Blood Count 17.6H Blood Pressure 149 /74 Mean: 99 04/03/23 18:41: Lactic Acid Level 3.14*H 04/03/23 20:57: Lactic Acid Level 1.71 Laboratory Tests 04/03/23 18:41: Creatinine 1.44H, INR Comment 0.9, Platelet Count 259 Results/Orders Lab Results Laboratory Tests Test 04/03/23 18:10 04/03/23 18:27 04/03/23 18:40 04/03/23 18:41 Range/Units Glucometer 76 70-110 MG/DL Influenza Type A (RT-PCR) Not Detected Not Detecte Influenza Type B (RT-PCR) Not Detected Not Detecte SARS-CoV-2 RNA (RT-PCR) Not Detected Not Detecte Blood Gas Puncture Site LEFT RADIAL Blood Gas Patient Temperature 97.4 Arterial Blood pH 7.36 L 7.37-7.43 Arterial Blood Partial Pressure CO2 54 H 35-45 MMHG Arterial Blood Partial Pressure O2 63 L 79-93 MMHG Arterial Blood HCO3 30 H 23-27 MMOL/L Arterial Blood Total CO2 32.0 H 21.0-31.0 MMOL/L Arterial Blood Oxygen Saturation 91 L 94-100 % Arterial Blood Base Excess 4.9 H -2.5-2.5 MMOL/L Constantino Test YES-POS Blood Gas Ventilator Setting NO Blood Gas Inspired Oxygen ROOM AIR White Blood Count 17.6 H 4.3-11.0 10^3/uL Red Blood Count 6.31 H 4.30-5.52 10^6/uL Hemoglobin 15.1 13.3-17.7 g/dL Hematocrit 50 40-54 % Mean Corpuscular Volume 80 80-99 fL Mean Corpuscular Hemoglobin 24 L 25-34 pg Mean Corpuscular Hemoglobin Concent 30 L 32-36 g/dL Red Cell Distribution Width 20.0 H 10.0-14.5 % Platelet Count 259 130-400 10^3/uL Mean Platelet Volume 10.7 9.0-12.2 fL Immature Granulocyte % (Auto) 1 % Neutrophils (%) (Auto) 89 H 42-75 % Lymphocytes (%) (Auto) 4 L 12-44 % Monocytes (%) (Auto) 6 0-12 % Eosinophils (%) (Auto) 0 0-10 % Basophils (%) (Auto) 1 0-10 % Neutrophils # (Auto) 15.6 H 1.8-7.8 10^3/uL Lymphocytes # (Auto) 0.7 L 1.0-4.0 10^3/uL Monocytes # (Auto) 1.1 H 0.0-1.0 10^3/uL Eosinophils # (Auto) 0.0 0.0-0.3 10^3/uL Basophils # (Auto) 0.1 0.0-0.1 10^3/uL Immature Granulocyte # (Auto) 0.1 0.0-0.1 10^3/uL Neutrophils % (Manual) 77 % Lymphocytes % (Manual) 3 % Monocytes % (Manual) 10 % Band Neutrophils 10 % Polychromasia MODERATE Anisocytosis MODERATE Elliptocytes SLIGHT Prothrombin Time 12.4 12.2-14.7 SEC INR Comment 0.9 0.8-1.4 Activated Partial Thromboplast Time 31 24-35 SEC D-Dimer 1.16 H 0.00-0.49 UG/ML Sodium Level 139 135-145 MMOL/L Potassium Level 4.4 3.6-5.0 MMOL/L Chloride Level 100 98-107 MMOL/L Carbon Dioxide Level 29 21-32 MMOL/L Anion Gap 10 5-14 MMOL/L Blood Urea Nitrogen 16 7-18 MG/DL Creatinine 1.44 H 0.60-1.30 MG/DL Estimat Glomerular Filtration Rate 50 BUN/Creatinine Ratio 11 Glucose Level 133 H 70-105 MG/DL Lactic Acid Level 3.14 *H 0.50-2.00 MMOL/L Calcium Level 9.1 8.5-10.1 MG/DL Magnesium Level 2.0 1.6-2.4 MG/DL Troponin I 0.365 *H <0.028 NG/ML C-Reactive Protein High Sensitivity 0.87 H 0.00-0.50 MG/DL B-Type Natriuretic Peptide 120.6 H <100.0 PG/ML Test 04/03/23 19:40 04/03/23 20:57 04/03/23 21:50 04/03/23 22:38 Range/Units Glucometer 120 H 63 L 70-110 MG/DL Lactic Acid Level 1.71 0.50-2.00 MMOL/L Urine Color YELLOW Urine Clarity CLEAR Urine pH 8.0 5-9 Urine Specific [place] 1.020 1.016-1.022 Urine Protein 3+ H NEGATIVE Urine Glucose (UA) 1+ H NEGATIVE Urine Ketones NEGATIVE NEGATIVE Urine Nitrite NEGATIVE NEGATIVE Urine Bilirubin NEGATIVE NEGATIVE Urine Urobilinogen 0.2 < = 1.0 MG/DL Urine Leukocyte Esterase NEGATIVE NEGATIVE Urine RBC (Auto) NEGATIVE NEGATIVE Urine RBC 0-2 /HPF Urine WBC 0-2 /HPF Urine Squamous Epithelial Cells RARE /HPF Urine Crystals NONE /LPF Urine Bacteria TRACE /HPF Urine Casts PRESENT /LPF Urine Hyaline Casts RARE /LPF Urine Mucus SMALL H /LPF Urine Culture Indicated NO Test 04/03/23 23:35 Range/Units Troponin I 0.481 *H <0.028 NG/ML My Orders Orders - JERI DEVLIN MD Basic Metabolic Panel (04/03/23 18:01) Cbc With Automated Diff (04/03/23 18:01) Magnesium (04/03/23 18:01) Ua Culture If Indicated (04/03/23 18:01) Accucheck Stat ONCE (04/03/23 18:01) Ed Iv/Invasive Line Start (04/03/23 18:01) Ekg Tracing (04/03/23 18:20) O2 (04/03/23 18:20) Monitor-Rhythm Ecg Trace Only (04/03/23 18:20) Chest 1 View, Ap/Pa Only (04/03/23 18:20) Bnp [place] (04/03/23 18:20) Hs C Reactive Protein (04/03/23 18:20) D50w (Emergency) Syringe (Dextrose 50% 5 (04/03/23 18:30) Accucheck Stat ONCE (04/03/23 18:20) Accucheck Stat ONCE (04/03/23 18:20) Accucheck Stat ONCE (04/03/23 18:20) Albuterol Inhaler (Albuterol) (04/03/23 18:28) Covid 19 Inhouse Test (04/03/23 18:40) Influenza A And B By Pcr (04/03/23 18:40) Arterial Blood Gas (04/03/23 18:41) Arterial Blood Draw - Obtain (04/03/23 ) Manual Differential (04/03/23 18:41) Blood Culture (04/03/23 19:50) Sputum Culture (04/03/23 19:50) Protime With Inr (04/03/23 19:50) Partial Thromboplastin Time (04/03/23 19:50) Vital Signs Adult Sepsis Patie Q15M (04/03/23 19:50) Remove Rings In Anticipation O (04/03/23 19:50) Lactic Acid Analyzer (04/03/23 19:50) Troponin I [place] (04/03/23 20:40) Ceftriaxone Pre-Mix (Rocephin Pre-Mix) (04/03/23 20:40) Fibrin Degradation Products (04/03/23 20:42) Ct Angio Chest W (R/O Pe) (04/03/23 21:13) Iohexol Injection (Omnipaque 350 Mg/Ml 1 (04/03/23 22:00) Received Contrast (Hold Metformin- Contr (04/03/23 22:00) Ns (Ivpb) (Sodium Chloride 0.9% Ivpb Bag (04/03/23 22:00) D50w (Emergency) Syringe (Dextrose 50% 5 (04/03/23 23:00) D50w (Emergency) Syringe (Dextrose 50% 5 (04/03/23 22:51) Furosemide Injection (Lasix Injection) (04/03/23 23:00) Ns Iv 1000 Ml (Sodium Chloride 0.9%) (04/03/23 23:00) Enoxaparin Injection (Lovenox Injection) (04/03/23 23:00) Aspirin Chewable Tablet (Baby Aspirin Ch (04/03/23 23:00) Potassium Chloride (Tablet) (Klor Con Ta (04/03/23 23:00) Troponin I [place] (04/03/23 23:10) Medications Given in ED Current Medications Medications Dose Ordered Sig/Naomi Route Start Time Stop Time Status Last Admin Dose Admin Aspirin 243 mg ONCE ONCE PO 04/03/23 23:00 04/03/23 23:01 DC 04/03/23 23:17 243 MG Dextrose 50 ml ONCE ONCE IV 04/03/23 18:30 04/03/23 18:31 DC 04/03/23 18:31 50 ML Dextrose 50 ml ONCE ONCE IV 04/03/23 23:00 04/03/23 23:01 DC 04/03/23 22:58 50 ML Enoxaparin Sodium 90 mg ONCE ONCE SC 04/03/23 23:00 04/03/23 23:01 DC 04/03/23 23:17 90 MG Furosemide 40 mg ONCE ONCE IVP 04/03/23 23:00 04/03/23 23:01 DC 04/03/23 23:16 40 MG Iohexol 100 ml ONCE ONCE IV 04/03/23 22:00 04/03/23 22:01 DC 04/03/23 21:54 76 ML Potassium Chloride 10 meq ONCE ONCE PO 04/03/23 23:00 04/03/23 23:01 DC 04/03/23 23:17 10 MEQ Sodium Chloride 100 ml ONCE ONCE IV 04/03/23 22:00 04/03/23 22:01 DC 04/03/23 21:54 70 ML Sodium Chloride 1,000 ml @ 50 mls/hr Q20H ONCE IV 04/03/23 23:00 04/04/23 18:59 04/03/23 23:16 50 MLS/HR Vital Signs/I&O 04/03/23 04/03/23 18:00 18:00 Temp 36.3 Pulse 61 Resp 16 B/P (MAP) 149/74 (99) Pulse Ox 94 94 O2 Delivery Nasal Cannula Nasal Cannula O2 Flow Rate 2.00 4.00 04/04/23 00:00 Intake Total 300 ml Balance 300 ml Capillary Refill : Blood Pressure Mean: 99 Point of Care Testing Finger Stick Blood Glucose: 76 Progress Note : Progress Note Patient was requiring 4 L by nasal cannula. Albuterol inhaler was administered. Cause for his hypoxia was evaluated thoroughly. Chest x-ray suggested pulmonary edema or less likely infiltrate. X-ray was viewed and interpreted by me. Radiologist report was reviewed with similar interpretation. CRP and BNP were both low which did not help in differentiating between infection and pulmonary edema. CBC demonstrated a leukocytosis of 17,000. Patient received Rocephin as a precaution for possible infectious infiltrate. D-dimer was elevated. Further evaluation was sought with CT angiogram. There was no pulmonary embolus but edema again was suspected. I discussed the case with Dr. Koch. He recommended Lasix. Lasix 40 mg IV was administered. Troponin was also elevated. Dr. Koch requested n.p.o. status after midnight. Due to patient's marginal renal function, we will run IV fluids at a slow rate of 50 mL/h along with the Lasix. Hopefully this will preserve renal function should he need angiography. Patient denied any chest pain. He did require multiple doses of D50 to treat recurrent hypoglycemia. He was also given a meal before midnight. I discussed CODE STATUS with the patient and he requests full CODE STATUS. He received an additional 3 baby aspirin in addition to the Plavix and 1 baby aspirin he took this morning. A dose of Lovenox was also administered for cardiac protection. EKG demonstrated paced rhythm with no acute abnormalities. Report was given to eICU. ECG Initial ECG Impression Date: April 03, 2023 Initial ECG Impression Time: 18:47 Initial ECG Rate: 60 Comment Dual paced rhythm with no overt ischemic changes. This represents a change from sinus rhythm on prior EKGs. Diagnostic Imaging Diagonstic Imaging: Xray Plain Films/CT/US/NM/MRI: chest Comments NAME: MARCIYOSEPHWiley Chiu [facility] REC#: [id number] PT STATUS: REG ER : 1945 PHYSICIAN: JERI DEVLIN MD ADMIT DATE: 04/03/23/ER Signed Date of Exam:04/03/23 CHEST 1 VIEW, AP/PA ONLY INDICATION: Hypoxia. EXAMINATION: AP view of the chest was obtained. COMPARISON: Study of 01/05/2023. FINDINGS: There is mild cardiomegaly. There is diffuse bilateral airspace disease possibly related to edema or pneumonitis. No pneumothorax is identified. Surgical findings are seen in the lower cervical spine with left anterior chest wall dual-chamber cardiac pacemaker. IMPRESSION: Cardiomegaly and bilateral airspace disease is most suggestive of congestive heart failure and pulmonary edema. Clinical correlation and short-term radiographic follow-up would be useful. Dictated by: Dictated on workstation # [id number] Dict: 04/03/231922 Trans: 04/03/231958 [facility] [id number] Interpreted by: MICHAEL REGAN MD Electronically signed by: MICHAEL REGAN MD 04/03/231958 Diagonstic Imaging: CT Plain Films/CT/US/NM/MRI: chest Comments NAME: SIMI COVARRUBIAS [facility] REC#: [id number] PT STATUS: REG ER : 1945 PHYSICIAN: JERI DEVLIN MD ADMIT DATE: 04/03/23/ER Draft Date of Exam:04/03/23 CT ANGIO CHEST W (R/O PE) INDICATION: Hypoxia with elevated d-dimer. TECHNIQUE: CTA of the chest performed after bolus intravenous administration of iodinated contrast. 3D reformatted images were produced. Automatic exposure controls were utilized to keep dose as low as reasonably achievable. FINDINGS: There is good opacification of pulmonary arteries without intraluminal filling defect. Thoracic aorta is of normal caliber. Note is made of mild dilatation of the esophagus. Surgical changes are seen in the lower cervical spine with left anterior chest wall dual-chamber cardiac pacemaker in place. Occasional mildly prominent mediastinal lymph nodes are noted without evidence of pathologically enlarged adenopathy. There is coronary artery calcification. There is diffuse groundglass and alveolar density throughout the lungs with a central predominance. No significant pleural or pericardial fluid is identified. There has been previous gastric bypass. IMPRESSION: No CTA evidence of pulmonary embolism. Diffuse bilateral pulmonary opacities are most suggestive of pulmonary edema and clinical correlation is recommended. Other findings include coronary artery disease and gastric bypass with coronary artery disease and atherosclerosis. Dictated on workstation # [id number] Dict: 04/03/232149 Trans: 04/03/232157 [facility] [id number] Interpreted by: MICHAEL REGAN MD Departure Communication (Admissions) Time/Spoke to Admitting Phy: 23:20 Dr. Cronin Time/Spoke to Consulting Phy: 22:55 Dr. Koch Impression Primary Impression: Acute exacerbation of CHF (congestive heart failure) Qualified Codes: I50.33 - Acute on chronic diastolic (congestive) heart failure Additional Impressions: Elevated troponin Hypoglycemia Wheezing Chronic kidney disease Qualified Codes: N18.9 - Chronic kidney disease, unspecified Hypoxia Disposition: ADMITTED INPATIENT Condition: Improved Admissions Decision to Admit Reason: Admit from ER (General) Decision to Admit/Date: April 03, 2023 Time/Decision to Admit Time: 22:55 Departure-Patient Inst. Referrals: NELLA GROVE DO (PCP/Family) Primary Care Physician Copy Copies To 1: NELLA GROVE DO Copies To 2: TENZIN LUU MD FACP FACC CCDS JERI DEVLIN MD April 03, 2023 18:56
[2023-04-03 18:57] LABS: ALLENS TEST YES-POS; INSPIRED O2 ROOM AIR; VENTILATOR NO
[2023-04-03 18:58] LABS: PATIENT TEMP 97.4
[2023-04-03 19:00] LABS: POTASSIUM 4.4 MMOL/L (3.6-5.0)
[2023-04-03 19:01] LABS: BASOPHILS # (AUTO) 0.1 10^3/uL (0.0-0.1); BASOPHILS % (AUTO) 1 % (0-10); CALCIUM 9.1 MG/DL (8.5-10.1); EOSINOPHILS % (AUTO) 0 % (0-10); HEMATOCRIT 50 % (40-54); HEMOGLOBIN 15.1 g/dL (13.3-17.7); LYMPHOCYTES # (AUTO) 0.7 10^3/uL (1.0-4.0); LYMPHOCYTES % (AUTO) 4 % (12-44); MEAN CORPUSCULAR HEMOGLOBIN 24 pg (25-34); MEAN CORPUSCULAR HGB CONC 30 g/dL (32-36); MEAN CORPUSCULAR VOLUME 80 fL (80-99); MEAN PLATELET VOLUME 10.7 fL (9.0-12.2); MONOCYTES # (AUTO) 1.1 10^3/uL (0.0-1.0); MONOCYTES % (AUTO) 6 % (0-12); NEUTROPHILS # (AUTO) 15.6 10^3/uL (1.8-7.8); NEUTROPHILS % (AUTO) 89 % (42-75); PLATELET COUNT 259 10^3/uL (130-400); WHITE BLOOD COUNT 17.6 10^3/uL (4.3-11.0)
[2023-04-03 19:06] LABS: CREATININE SERUM 1.44 MG/DL (0.60-1.30)
--- NOTE | 2023-04-03 19:27 | Diagnostic Imaging Report ---
INDICATION: Hypoxia. EXAMINATION: AP view of the chest was obtained. COMPARISON: Study of 01/05/2023. FINDINGS: There is mild cardiomegaly. There is diffuse bilateral airspace disease possibly related to edema or pneumonitis. No pneumothorax is identified. Surgical findings are seen in the lower cervical spine with left anterior chest wall dual-chamber cardiac pacemaker. IMPRESSION: Cardiomegaly and bilateral airspace disease is most suggestive of congestive heart failure and pulmonary edema. Clinical correlation and short-term radiographic follow-up would be useful. Dictated by: Dictated on workstation # [id number]
[2023-04-03 19:45] LABS: BAND NEUTROPHILS 10 %; LYMPHOCYTES % (MANUAL) 3 %; MONOCYTES % (MANUAL) 10 %; NEUTROPHILS % (MANUAL) 77 %
[2023-04-03 19:46] LABS: ANISOCYTOSIS MODERATE; ELLIPT/OVALOCYTES SLIGHT; POLYCHROMASIA MODERATE
[2023-04-03 20:04] LABS: INR 0.9 (0.8-1.4); PROTHROMBIN TIME PATIENT 12.4 SEC (12.2-14.7)
[2023-04-03] MEDS ORDERED: cefTRIAXone PRE-MIX 50 ML IV STA (20:40)
[2023-04-03 21:59] LABS: BILIRUBIN,URINE NEGATIVE (NEGATIVE); CLARITY,URINE CLEAR; COLOR,URINE YELLOW; GLUCOSE, URINE (UA) 1+ (NEGATIVE); KETONES,URINE NEGATIVE (NEGATIVE); LEUKOCYTE ESTERASE ,URINE NEGATIVE (NEGATIVE); NITRITE,URINE NEGATIVE (NEGATIVE); PROTEIN,URINE 3+ (NEGATIVE)
--- NOTE | 2023-04-03 21:59 | Diagnostic Imaging Report ---
INDICATION: Hypoxia with elevated d-dimer. TECHNIQUE: CTA of the chest performed after bolus intravenous administration of iodinated contrast. 3D reformatted images were produced. Automatic exposure controls were utilized to keep dose as low as reasonably achievable. FINDINGS: There is good opacification of pulmonary arteries without intraluminal filling defect. Thoracic aorta is of normal caliber. Note is made of mild dilatation of the esophagus. Surgical changes are seen in the lower cervical spine with left anterior chest wall dual-chamber cardiac pacemaker in place. Occasional mildly prominent mediastinal lymph nodes are noted without evidence of pathologically enlarged adenopathy. There is coronary artery calcification. There is diffuse groundglass and alveolar density throughout the lungs with a central predominance. No significant pleural or pericardial fluid is identified. There has been previous gastric bypass. IMPRESSION: No CTA evidence of pulmonary embolism. Diffuse bilateral pulmonary opacities are most suggestive of pulmonary edema and clinical correlation is recommended. Other findings include gastric bypass with coronary artery disease and atherosclerosis. Dictated by: Dictated on workstation # [id number]
[2023-04-03] MEDS ORDERED: NS 100 ML (IVPB) BAG IV ONE (22:00)
[2023-04-03] MEDS ORDERED: IOHEXOL 350 MG/ML 100 ML (OMNIPAQUE 350) VIAL IV ONE (22:00)
[2023-04-03] MEDS ORDERED: HOLD METFORMIN - RECEIVED CONTRAST 20 ML VIAL IV SCH (22:00)
[2023-04-03 22:18] LABS: BACTERIA,URINE TRACE /HPF; RBC,URINE 0-2 /HPF; SQUAMOUS EPITHELIAL CELL,UR RARE /HPF; WBC,URINE 0-2 /HPF
[2023-04-03 22:19] LABS: HYALINE CASTS, URINE RARE /LPF
[2023-04-03] MEDS ORDERED: DEXTROSE 50% 50 ML (IMS) SYR ONE (22:51)
[2023-04-03] MEDS ORDERED: NS IV 1000 ML 1,000 ML IV ONE (23:00)
[2023-04-03] MEDS ORDERED: FUROSEMIDE 40 MG/4 ML INJ (LASIX) IVP ONE (23:00)
[2023-04-03] MEDS ORDERED: KCL 10 MEQ TAB (MICRO K) PO ONE (23:00)
[2023-04-03] MEDS ORDERED: ASPIRIN 81 MG CHEW (CHILDREN'S ASA) PO ONE (23:00)
[2023-04-03] MEDS ORDERED: ENOXAPARIN 100 MG/1 ML (LOVENOX) SYR SC ONE (23:00)
[2023-04-04] VITALS (9 sets, daily range): BP systolic 130–167; BP diastolic 57–84
[2023-04-04] MEDS ORDERED: ONDANSETRON 4 MG/2 ML (SDV) Z0FRAN IV PRN (01:45)
[2023-04-04] MEDS ORDERED: RT-ALBUTEROL SULF 2.5 MG/3 ML PRE-MIX VIAL INH PRN (01:45)
--- NOTE | 2023-04-04 02:39 | Tele-ICU Consult ---
Progress Note This is a 77 yo M new admission to ICU for hypoglycemia, care plan reviewed with ED attending. BS 30 on presentation, impoved to 93 after D10 250ml. SpO2 96 on 4L NC. DDx Acute CHF exacerbation, Hypoglycemia, elevated Troponin, CKD Cardiology was consulted. Patient is NPO for Cardiac Cath in AM. Rec'd LMWH (-) sepsis screen (-) COVID Awake, alert on video assessment, NAD Diagnosis: Hypoglycemia, NSTEMI A total of _15_ minutes of critical care time was devoted to this patient, including reviewing this patient's available data, including medical history, events of note and test results. This was required to treat and/or prevent further deterioration of critical care conditions ( as above ). Service provided to a patient admitted to ICU bed via interactive E-CARE system with real-time audio and video telecommunications from [facility] tele- ICU hub located in [place], [place] JEFFERSON SALGUERO MD April 04, 2023 02:39
[2023-04-04 05:06] LABS: BASOPHILS # (AUTO) 0.1 10^3/uL (0.0-0.1); BASOPHILS % (AUTO) 1 % (0-10); EOSINOPHILS # (AUTO) 0.2 10^3/uL (0.0-0.3); EOSINOPHILS % (AUTO) 1 % (0-10); HEMATOCRIT 45 % (40-54); HEMOGLOBIN 13.7 g/dL (13.3-17.7); LYMPHOCYTES # (AUTO) 1.2 10^3/uL (1.0-4.0); LYMPHOCYTES % (AUTO) 9 % (12-44); MEAN CORPUSCULAR HEMOGLOBIN 24 pg (25-34); MEAN CORPUSCULAR HGB CONC 30 g/dL (32-36); MEAN CORPUSCULAR VOLUME 78 fL (80-99); MEAN PLATELET VOLUME 10.6 fL (9.0-12.2); MONOCYTES # (AUTO) 1.1 10^3/uL (0.0-1.0); MONOCYTES % (AUTO) 9 % (0-12); NEUTROPHILS % (AUTO) 79 % (42-75); PLATELET COUNT 236 10^3/uL (130-400); WHITE BLOOD COUNT 12.7 10^3/uL (4.3-11.0)
[2023-04-04 05:24] LABS: ALBUMIN 3.4 GM/DL (3.2-4.5); BILIRUBIN,TOTAL 0.4 MG/DL (0.1-1.0); CALCIUM 8.9 MG/DL (8.5-10.1); CREATININE SERUM 1.58 MG/DL (0.60-1.30); MAGNESIUM 1.9 MG/DL (1.6-2.4); PHOSPHORUS 2.6 MG/DL (2.3-4.7); POTASSIUM 3.7 MMOL/L (3.6-5.0); TOTAL PROTEIN 5.6 GM/DL (6.4-8.2)
[2023-04-04] MEDS ORDERED: NS IV 500 ML 500 ML IV PRN (05:45)
[2023-04-04] MEDS ORDERED: KCL 20 MEQ TAB (K-DUR) PO ONE (05:45)
[2023-04-04] MEDS: KCL 20 MEQ TAB (K-DUR) PO SCH (05:47)
[2023-04-04] MEDS: POTASSIUM CL 10MEQ/50ML IVPB 50 ML IV SCH (05:47)
[2023-04-04] MEDS: MAGNESIUM 1 GM/100 ML IVPB 100 ML IV SCH ×3 (05:47→06:55)
--- NOTE | 2023-04-04 07:21 | Diagnostic Imaging Report ---
EXAMINATION: Chest 1 view HISTORY: CHF exacerbation COMPARISON: 04/03/2023. FINDINGS: Heart size and pulmonary vasculature are normal. Decreased interstitial opacities of the lungs compared to 04/03/2023. No focal consolidation, pleural effusion, or pneumothorax. The osseous structures are intact. IMPRESSION: 1. Decreasing interstitial opacities within the lungs compared to 04/03/2023 suggestive of improving pulmonary edema. Dictated by: Dictated on workstation # [id number]
--- NOTE | 2023-04-04 09:50 | Tele-ICU Progress Note ---
Subjective Date Seen by a Provider: April 04, 2023 Time Seen by a Provider: 09:50 Subjective/Events-last exam (Tele-ICU Physician , Progress Note ) Service provided via interactive audio and video telecommunications E-CARE system to a patient admitted to ICU bed in [facility]. Patient is seen today due to persistent need of ICU care Available chart/ vitals / labs / Images reviewed Video assessment done using teleICU camera, rest of exam as per RN Discussed with RN Events overnight : Afebrile hemodynamically stable Respiratory - I/O = Drips: ns 50 Pressors- no Hospital course: 04/04- admit 77yo M. brought to ER via EMS due to unresponesive episode and hypoglycemia,(On INsulin) BS 30, impoved to 93 after D10 250ml was administered. O2 sat 80's aslo and wa placed on 4L NC. Dx after worked up- Acute CHF exacerbation, Hypoglycemia, elevated Troponin, CKD A/P Hypoglycemia, DM II -accuchecks - stable now , to resume meds as per PCP CAD, CHF? = EF 55 to 65%, grade 1 diastolic dysfunction, left atrial dilation 5.4 cm, aortic valve sclerosis, PA pressure 25 to 30 mmHg -CAD -2 stents , 2019 - as per cards Hypoxia - 4 l - to wean off CKD/ BRIGIDO - Cr stable , but received CT conrast for CTA - will cont if no worsening with hypoxia / chf KALEY - ? CPAP h/o Cellulitis of LLE History of PVD affecting left leg Lines : , (Central Line Necessity Reviewed) Buchanan: OG: Nutrition: Analgesia: Anxiety/ delirium VTE Prophylaxis: Stress Ulcer Prophylaxis: Plans in collaboration with bedside consultants and IM MDs. Discussed with RN to reach out if any questions or concerns Case and care daily discussed on multidisciplinary rounds ( RN, PharmD, Control Director , Respiratory Therapy, pipe assembly worker ) A total of 15 minutes of critical care time was devoted to this patient today, required to treat and/or prevent further deterioration of critical care condition ( as above ) . I am remotely monitoring this patient from another state. I am unable to do the bedside exam, and history/physical and pertinent information is taken from other notes in the computer and bedside staff. Sepsis Event Evaluation Height, Weight, BMI Height: 5'4.00" Weight: 152lbs. 0.0oz. [id number]; 28.70 BMI Method:Stated Focused Exam Lactate Level 04/03/23 18:41: Lactic Acid Level 3.14*H 04/03/23 20:57: Lactic Acid Level 1.71 Exam Exam Patient acknowledged, consented, and participated in this virtual visit which was conducted using real time audio/video Vital Signs Date Time Temp Pulse Resp B/P (MAP) Pulse Ox O2 Delivery O2 Flow Rate FiO2 04/04/23 09:00 60 18 146/59 (93) 92 Nasal Cannula 4.00 04/04/23 08:00 64 33 139/60 (72) Nasal Cannula 4.00 04/04/23 07:00 62 04/04/23 07:00 67 31 163/68 (102) 99 Nasal Cannula 4.00 04/04/23 06:14 Nasal Cannula 4.00 04/04/23 06:00 64 28 148/68 (94) 95 Nasal Cannula 4.00 04/04/23 05:00 63 28 141/61 (87) 95 Nasal Cannula 4.00 04/04/23 05:00 63 28 141/61 (87) 95 Nasal Cannula 4.00 04/04/23 04:00 64 27 130/57 (81) 97 Nasal Cannula 4.00 04/04/23 04:00 98 Nasal Cannula 4.00 04/04/23 04:00 64 27 130/57 (81) 97 Nasal Cannula 4.00 04/04/23 03:00 68 28 144/64 (90) 95 Nasal Cannula 4.00 04/04/23 03:00 68 28 144/64 (90) 95 Nasal Cannula 4.00 04/04/23 02:15 63 18 133/57 (82) 93 Nasal Cannula 4.00 04/04/23 01:45 62 17 137/62 (87) 97 Nasal Cannula 4.00 04/04/23 01:45 62 17 137/62 (87) 97 Nasal Cannula 4.00 04/04/23 01:15 60 13 136/58 (84) 96 Nasal Cannula 4.00 04/04/23 01:15 60 13 136/58 (84) 96 Nasal Cannula 4.00 04/04/23 01:04 36.7 Nasal Cannula 4.00 04/04/23 01:00 61 20 134/84 (101) 97 Nasal Cannula 4.00 04/04/23 01:00 61 20 134/84 (101) 97 Nasal Cannula 4.00 04/04/23 00:45 67 28 167/70 (102) 99 Nasal Cannula 4.00 04/04/23 00:45 67 28 167/70 (102) 99 Nasal Cannula 4.00 04/04/23 00:43 96 Nasal Cannula 4.00 04/04/23 00:32 70 04/04/23 00:30 67 31 161/73 (102) 99 Nasal Cannula 4.00 04/04/23 00:30 67 31 161/73 (102) 99 Nasal Cannula 4.00 04/04/23 00:00 60 136/67 94 04/03/23 18:00 36.3 61 16 149/74 (99) 94 Nasal Cannula 4.00 04/03/23 18:00 94 Nasal Cannula 2.00 I & O 04/04/23 07:00 Intake Total 400 ml Output Total 1400 ml Balance -1000 ml Height & Weight Height: 5'4.00" Weight: 152lbs. 0.0oz. 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
--- NOTE | 2023-04-04 14:33 | Consultation-Cardiology ---
HPI-Cardiology Cardiology Consultation: Date of Consultation 04/04/23 Date of Admission Attending Physician Sam Lujan DO Admitting Physician Admitting Physician: Rose Cronin MD Attending Physician: Rose Cronin MD Consulting Physician Rocky GRAY MD HPI: Time Seen by a Provider: 10:00 Chief Complaint: Shortness of breath This is a 77-year-old gentleman who presents with shortness of breath. He has history of coronary artery disease, PCI. He does have history of previous diastolic dysfunction. Denies active smoking. Patient has history of diabetes and chronic kidney disease. Review of Systems-Cardiology Review of Systems Constitutional: no symptoms reported Eyes: no symptoms reported Ears/Nose/Throat: no symptoms reported Respiratory: SOB at rest Cardiovascular: No chest pain Gastrointestinal: no symptoms reported Genitourinary: no symptoms reported Musculoskeletal: no symptoms reported Skin: no symptoms reported Psychiatric/Neurological: no symptoms reported Hematologic: no symptoms reported CHU-Zlhiia-Kenkeq Hx Patient Social History Smoking Status: Former Smoker Have you traveled recently?: No Alcohol Use?: Yes Pt feels they are or have been: Yes Immunizations Up To Date Tetanus Booster (TDap): Unknown Date of Pneumonia Vaccine: Aug 09, 2020 Date of Influenza Vaccine: Aug 24, 2020 Past Medical History PMH As described under Assessment. Family Medical History Family History: Family history: Diabetes mellitus 19 MOTHER G8 SISTER Heart disease G8 BROTHER UNCLE Allergies and Home Medications Allergies Coded Allergies: lisinopril (Verified Adverse Reaction, Unknown, affects kidneys, 07/02/22) metformin (Verified Adverse Reaction, Unknown, affects kidneys, 07/02/22) Patient Home Medication List Home Medication List Reviewed: Yes Allopurinol (Allopurinol) 100 Mg Tablet, 100 MG PO DAILY, (Reported) Entered as Reported by: BERTIN BRADSHAW on 04/18/20 1500 Last Action: Reviewed Alogliptin Benzoate (Alogliptin) 12.5 Mg Tablet, 12.5 MG PO DAILY, (Reported) Entered as Reported by: KATIE RUTH on 04/18/20 1016 Last Action: Reviewed Amlodipine Besylate (Amlodipine Besylate) 10 Mg Tablet, 10 MG PO DAILY, (Reported) Entered as Reported by: BERTIN BRADSHAW on 04/18/20 1503 Last Action: Reviewed Aspirin (Aspirin EC) 81 Mg Tablet.dr, 81 MG PO DAILY, (Reported) Entered as Reported by: BETRIN BRADSHAW on 04/24/21 104 Last Action: Reviewed Atorvastatin Calcium (Atorvastatin Calcium) 20 Mg Tablet, 20 MG PO HS, (Reported) Entered as Reported by: MIS PARSONS on 08/19/17 1406 Last Action: Reviewed Calcitriol (Calcitriol) 0.25 Mcg Capsule, 0.25 MCG PO DAILY, (Reported) Entered as Reported by: ESPINOZA BRYAN on 07/02/22 113 Last Action: Reviewed Chlorthalidone (Chlorthalidone) 25 Mg Tablet, 25 MG PO DAILY, (Reported) Entered as Reported by: KATIE RUTH on 04/18/20 1016 Last Action: Reviewed Cholecalciferol (Vitamin D3) (Vitamin D3) 125 Mcg Capsule, 125 MCG PO DAILY, (Reported) Entered as Reported by: BERTIN BRADSHAW on 04/24/21 104 Last Action: Reviewed Clopidogrel Bisulfate (Clopidogrel) 75 Mg Tablet, 75 MG PO DAILY, (Reported) Entered as Reported by: BERTIN BRADSHAW on 04/24/21 104 Last Action: Reviewed Cyanocobalamin (Cyanocobalamin Injection) 1,000 Mcg/Ml Inj, 1,000 MCG IM EVERY 3 WEEKS, (Reported) Entered as Reported by: BERTIN BRADSHAW on 12/03/22 1229 Last Action: Reviewed Furosemide (Furosemide) 40 Mg Tablet, 40 MG PO DAILY, (Reported) Entered as Reported by: ESPINOZA BRYAN on 07/02/22 113 Last Action: Reviewed Gabapentin (Gabapentin) 100 Mg Capsule, 100 MG PO QID, (Reported) Entered as Reported by: MIS PARSONS on 08/19/17 1406 Last Action: Reviewed Insulin Aspart (Novolog Flexpen) 100 Unit/Ml (3 Ml) Solution, 30 UNITS SQ WM, (Reported) Entered as Reported by: KATIE RUTH on 04/18/20 1016 Last Action: Reviewed Insulin Aspart (Novolog Flexpen) 100 Unit/Ml (3 Ml) Solution, 35 UNITS SQ HS, (Reported) Entered as Reported by: ESPINOZA BRYAN on 07/02/22 113 Last Action: Reviewed Insulin Glargine,Hum.rec.anlog (Lantus Solostar) 100 Unit/1 Ml Insuln.pen, 50 UNIT SQ HS, (Reported) Entered as Reported by: BERTIN BRADSHAW on 04/18/20 1508 Last Action: Reviewed Losartan Potassium (Losartan Potassium) 50 Mg Tablet, 50 MG PO DAILY, (Reported) Entered as Reported by: BERTIN BRADSHAW on 12/03/22 1500 Last Action: Reviewed Magnesium Oxide (Magnesium Oxide) 400 Mg Tablet, 400 MG PO DAILY, (Reported) Entered as Reported by: MIS PARSONS on 08/20/17 0848 Last Action: Reviewed Metoprolol Succinate (Metoprolol Succinate) 100 Mg Tab.er.24h, 100 MG PO DAILY, (Reported) Entered as Reported by: BERTIN BRADSHAW on 04/24/21 1045 Last Action: Reviewed Metoprolol Succinate (Metoprolol Succinate) 100 Mg Tab.er.24h, 50 MG PO 1800, (Reported) Entered as Reported by: BERTIN BRADSHAW on 12/03/22 1224 Last Action: Reviewed Mora-3 Fatty Acids/Fish Oil (Fish Oil 1,000 mg Softgel) 1 Each Capsule, 1,000 MG PO DAILY, (Reported) Entered as Reported by: MIS PARSONS on 08/20/17 0844 Last Action: Reviewed Pantoprazole Sodium (Pantoprazole Sodium) 40 Mg Tablet.dr, 40 MG PO BID, ( Reported) Entered as Reported by: BERTIN BRADSHAW on 04/24/21 1049 Last Action: Reviewed Potassium Chloride (Klor-Con M10) 10 Meq Tab.er.prt, 20 MEQ PO TID, (Reported) Entered as Reported by: BERTIN BRADSHAW on 12/03/22 1229 Last Action: Reviewed Testosterone Cypionate (Testosterone Cypionate) 200 Mg/Ml Vial, 200 MG IM EVERY 3 WEEKS, (Reported) Entered as Reported by: BERTIN BRADSHAW on 12/03/22 1229 Last Action: Reviewed Tramadol HCl (Tramadol HCl) 50 Mg Tablet, 100 MG PO Q6H PRN for PAIN-MODERATE (5-7), (Reported) Entered as Reported by: MIS PARSONS on 08/19/17 1442 Last Action: Reviewed Discontinued Medications Cephalexin (Cephalexin) 500 Mg Tablet, 500 MG PO BID Discontinued Reason: No Longer Taking Prescribed by: DENI CRUM on 12/04/22 1204 Last Action: Discontinued Exam Vital Signs Vital Signs Date Time Temp Pulse Resp B/P (MAP) Pulse Ox O2 Delivery O2 Flow Rate FiO2 04/04/23 12:43 69 04/04/23 12:00 11 164/85 (112) 90 Nasal Cannula 4.00 04/04/23 11:34 36.8 Physical Exam Constitutional: No fatigue or malaise. Chest examination: Mild bilateral crackles noted. Good air entry. No wheezing. CVS examination: Regular rhythm. No murmur. No significant pedal edema. Labs Laboratory Tests Test 04/03/23 18:10 04/03/23 18:27 04/03/23 18:40 04/03/23 18:41 Range/Units Glucometer 76 70-110 MG/DL Influenza Type A (RT-PCR) Not Detected Not Detecte Influenza Type B (RT-PCR) Not Detected Not Detecte SARS-CoV-2 RNA (RT-PCR) Not Detected Not Detecte Blood Gas Puncture Site LEFT RADIAL Blood Gas Patient Temperature 97.4 Arterial Blood pH 7.36 L 7.37-7.43 Arterial Blood Partial Pressure CO2 54 H 35-45 MMHG Arterial Blood Partial Pressure O2 63 L 79-93 MMHG Arterial Blood HCO3 30 H 23-27 MMOL/L Arterial Blood Total CO2 32.0 H 21.0-31.0 MMOL/L Arterial Blood Oxygen Saturation 91 L 94-100 % Arterial Blood Base Excess 4.9 H -2.5-2.5 MMOL/L Constantino Test YES-POS Blood Gas Ventilator Setting NO Blood Gas Inspired Oxygen ROOM AIR White Blood Count 17.6 H 4.3-11.0 10^3/uL Red Blood Count 6.31 H 4.30-5.52 10^6/uL Hemoglobin 15.1 13.3-17.7 g/dL Hematocrit 50 40-54 % Mean Corpuscular Volume 80 80-99 fL Mean Corpuscular Hemoglobin 24 L 25-34 pg Mean Corpuscular Hemoglobin Concent 30 L 32-36 g/dL Red Cell Distribution Width 20.0 H 10.0-14.5 % Platelet Count 259 130-400 10^3/uL Mean Platelet Volume 10.7 9.0-12.2 fL Immature Granulocyte % (Auto) 1 % Neutrophils (%) (Auto) 89 H 42-75 % Lymphocytes (%) (Auto) 4 L 12-44 % Monocytes (%) (Auto) 6 0-12 % Eosinophils (%) (Auto) 0 0-10 % Basophils (%) (Auto) 1 0-10 % Neutrophils # (Auto) 15.6 H 1.8-7.8 10^3/uL Lymphocytes # (Auto) 0.7 L 1.0-4.0 10^3/uL Monocytes # (Auto) 1.1 H 0.0-1.0 10^3/uL Eosinophils # (Auto) 0.0 0.0-0.3 10^3/uL Basophils # (Auto) 0.1 0.0-0.1 10^3/uL Immature Granulocyte # (Auto) 0.1 0.0-0.1 10^3/uL Neutrophils % (Manual) 77 % Lymphocytes % (Manual) 3 % Monocytes % (Manual) 10 % Band Neutrophils 10 % Polychromasia MODERATE Anisocytosis MODERATE Elliptocytes SLIGHT Prothrombin Time 12.4 12.2-14.7 SEC INR Comment 0.9 0.8-1.4 Activated Partial Thromboplast Time 31 24-35 SEC D-Dimer 1.16 H 0.00-0.49 UG/ML Sodium Level 139 135-145 MMOL/L Potassium Level 4.4 3.6-5.0 MMOL/L Chloride Level 100 98-107 MMOL/L Carbon Dioxide Level 29 21-32 MMOL/L Anion Gap 10 5-14 MMOL/L Blood Urea Nitrogen 16 7-18 MG/DL Creatinine 1.44 H 0.60-1.30 MG/DL Estimat Glomerular Filtration Rate 50 BUN/Creatinine Ratio 11 Glucose Level 133 H 70-105 MG/DL Lactic Acid Level 3.14 *H 0.50-2.00 MMOL/L Calcium Level 9.1 8.5-10.1 MG/DL Magnesium Level 2.0 1.6-2.4 MG/DL Troponin I 0.365 *H <0.028 NG/ML C-Reactive Protein High Sensitivity 0.87 H 0.00-0.50 MG/DL B-Type Natriuretic Peptide 120.6 H <100.0 PG/ML Test 04/03/23 19:40 04/03/23 20:57 04/03/23 21:50 04/03/23 22:38 Range/Units Glucometer 120 H 63 L 70-110 MG/DL Lactic Acid Level 1.71 0.50-2.00 MMOL/L Urine Color YELLOW Urine Clarity CLEAR Urine pH 8.0 5-9 Urine Specific Batson 1.020 1.016-1.022 Urine Protein 3+ H NEGATIVE Urine Glucose (UA) 1+ H NEGATIVE Urine Ketones NEGATIVE NEGATIVE Urine Nitrite NEGATIVE NEGATIVE Urine Bilirubin NEGATIVE NEGATIVE Urine Urobilinogen 0.2 < = 1.0 MG/DL Urine Leukocyte Esterase NEGATIVE NEGATIVE Urine RBC (Auto) NEGATIVE NEGATIVE Urine RBC 0-2 /HPF Urine WBC 0-2 /HPF Urine Squamous Epithelial Cells RARE /HPF Urine Crystals NONE /LPF Urine Bacteria TRACE /HPF Urine Casts PRESENT /LPF Urine Hyaline Casts RARE /LPF Urine Mucus SMALL H /LPF Urine Culture Indicated NO Test 04/03/23 23:35 04/04/23 01:01 04/04/23 02:53 04/04/23 04:35 Range/Units Troponin I 0.481 *H 0.550 *H <0.028 NG/ML Glucometer 207 H 184 H 70-110 MG/DL White Blood Count 12.7 H 4.3-11.0 10^3/uL Red Blood Count 5.83 H 4.30-5.52 10^6/uL Hemoglobin 13.7 13.3-17.7 g/dL Hematocrit 45 40-54 % Mean Corpuscular Volume 78 L 80-99 fL Mean Corpuscular Hemoglobin 24 L 25-34 pg Mean Corpuscular Hemoglobin Concent 30 L 32-36 g/dL Red Cell Distribution Width 20.0 H 10.0-14.5 % Platelet Count 236 130-400 10^3/uL Mean Platelet Volume 10.6 9.0-12.2 fL Immature Granulocyte % (Auto) 1 % Neutrophils (%) (Auto) 79 H 42-75 % Lymphocytes (%) (Auto) 9 L 12-44 % Monocytes (%) (Auto) 9 0-12 % Eosinophils (%) (Auto) 1 0-10 % Basophils (%) (Auto) 1 0-10 % Neutrophils # (Auto) 10.0 H 1.8-7.8 10^3/uL Lymphocytes # (Auto) 1.2 1.0-4.0 10^3/uL Monocytes # (Auto) 1.1 H 0.0-1.0 10^3/uL Eosinophils # (Auto) 0.2 0.0-0.3 10^3/uL Basophils # (Auto) 0.1 0.0-0.1 10^3/uL Immature Granulocyte # (Auto) 0.1 0.0-0.1 10^3/uL Sodium Level 138 135-145 MMOL/L Potassium Level 3.7 3.6-5.0 MMOL/L Chloride Level 101 98-107 MMOL/L Carbon Dioxide Level 27 21-32 MMOL/L Anion Gap 10 5-14 MMOL/L Blood Urea Nitrogen 18 7-18 MG/DL Creatinine 1.58 H 0.60-1.30 MG/DL Estimat Glomerular Filtration Rate 45 BUN/Creatinine Ratio 11 Glucose Level 188 H 70-105 MG/DL Calcium Level 8.9 8.5-10.1 MG/DL Corrected Calcium 9.4 8.5-10.1 MG/DL Phosphorus Level 2.6 2.3-4.7 MG/DL Magnesium Level 1.9 1.6-2.4 MG/DL Total Bilirubin 0.4 0.1-1.0 MG/DL Aspartate Amino Transf (AST/SGOT) 27 5-34 U/L Alanine Aminotransferase (ALT/SGPT) 20 0-55 U/L Alkaline Phosphatase 76 40-136 U/L C-Reactive Protein High Sensitivity 1.27 H 0.00-0.50 MG/DL B-Type Natriuretic Peptide 133.7 H <100.0 PG/ML Total Protein 5.6 L 6.4-8.2 GM/DL Albumin 3.4 3.2-4.5 GM/DL Test 04/04/23 04:47 04/04/23 06:34 04/04/23 07:46 04/04/23 09:50 Range/Units Glucometer 179 H 151 H 131 H 88 70-110 MG/DL Test 04/04/23 12:04 04/04/23 13:51 Range/Units Glucometer 100 165 H 70-110 MG/DL ECG Impression ECG Comment Atrial paced rhythm. A/P-Cardiology Assessment/Admission Diagnosis Acute respiratory failure, likely due to acute diastolic congestive heart failure. CTA ruled out pulmonary embolism. Bilateral infiltrates noted. Acute on chronic diastolic congestive heart failure. Echocardiogram done 04/04/2023 shows moderate LVH with normal LV function with no wall motion abnormalities. LVH Coronary artery disease, previous PCI, Diabetes, Diabetic nephropathy Plan Acute on chronic diastolic congestive heart failure. IV diuretics. Positive troponin, with no serial increase. Likely due to acute diastolic congestive heart failure. However obstructive CAD cannot be ruled out. Patient will likely require either MPI or invasive evaluation of coronaries. Positive D-dimer, pulmonary embolism ruled out with CTA. LVH Coronary artery disease, previous PCI, continue dual antiplatelet therapy with aspirin and Plavix. Continue goal-directed secondary medical therapy with ARB, beta-chapin and statin therapy. Diabetes, episodes of hypoglycemia. Will defer to the primary service. Diabetic nephropathy, gentle fluids given due to contrast given with the CT yesterday to rule out PE. Rocky GRAY MD April 04, 2023 14:33
[2023-04-04] MEDS ORDERED: cefTRIAXone 1 GM/NS 50 ML IVPB IV SCH ×2 (21:00)
[2023-04-04] MEDS ORDERED: hydrALAZINE (APESOLINE) 20 MG/ML VIAL IV PRN (21:30)
--- NOTE | 2023-04-04 21:36 | History & Physical-Hospitalist ---
History of Present Illness HPI/Chief Complaint Geovany Wilcox is a 77 year old male with PMH HTN, T2DM on insulin, HLD, CAD, PVD, CKD 3b, HFpEF, who presented after being found unresponsive. He does not remember what happened. He gives himself his own insulin. He reports taking Lantus once daily and Novology four times daily. When I asked how much he takes, he initially said "it depends". When I asked how he decided how much to give, he told me his doctor decided. He denies pain. He denies shortness of breath. He says he never had chest pain. He denies nausea and vomiting. He has not had a good appetite recently. Source: patient, family Exam Limitations: no limitations Date Seen 04/04/23 Time Seen by a Provider: 09:45 Attending Physician Sam Lujan DO PCP Admitting Physician: Praveen Anderson MD Attending Physician: Praveen Anderson MD Referring Physician Date of Admission April 03, 2023 at 23:55 Home Medications & Allergies Home Medications Reviewed patient Home Medication Reconciliation performed by pharmacy medication reconciliations brain wave technician and/or nursing. Patients Allergies have been reviewed. Allergies Allergies Coded Allergies lisinopril (Verified Adverse Reaction, Unknown, affects kidneys, 07/02/22) metformin (Verified Adverse Reaction, Unknown, affects kidneys, 07/02/22) Past Wknhwfk-Dekjse-Wurejc Hx Patient Social History Tobacco Use?: No Smoking Status: Former Smoker Use of E-Cig and/or Vaping dev: No Substance use?: No Alcohol Use?: Yes Alcohol Frequency: Rarely Pt feels they are or have been: Yes Immunizations Up To Date Date of Influenza Vaccine: Aug 24, 2020 First/Initial COVID19 Vaccinat: 2020 Second COVID19 Vaccination Aime: 2020 Tetanus Booster (TDap): Unknown Date of Pneumonia Vaccine: Aug 09, 2020 Seasonal Allergies Seasonal Allergies: Yes Current Status Advance Directives: No Communicates: Verbally Primary Language: Ukrainian Preferred Spoken Language: Ukrainian Is interpretation needed?: No Implanted or Applied Medical D: Pacemaker, Stents Past Medical History Surgeries: Abdominal, Coronary Stent, Eye Surgery, Orthopedic, Pacemaker, T onsillectomy, Vascular Surgery (Agnioplasty for PAD) Sleep Apnea Currently Using CPAP: No Coronary Artery Disease, High Cholesterol, Hypertension, Peripheral Vascular (angioplasty for PAD) Sexually Transmitted Disease: No Renal Failure (CKD) Gastroesophageal Reflux, Irritable Bowel Arthritis, Chronic Back Pain, Fractures Diabetes, Insulin dep Cataract Skin Did You Recieve Any Treatments: Yes What Type of Treatment Did You: Surgical Intervention Psoriasis Blood Disorders: No Adverse Reaction/Blood Tranf: No Family Medical History Family history: Diabetes mellitus 19 MOTHER G8 SISTER Heart disease G8 BROTHER UNCLE Heart Disease, Diabetes Review of Systems Constitutional: see HPI Physical Exam Physical Exam Vital Signs Vital Signs - First Documented 04/03/23 18:00 Temp 36.3 Pulse 61 Resp 16 B/P (MAP) 149/74 (99) Pulse Ox 94 O2 Delivery Nasal Cannula O2 Flow Rate 2.00 Capillary Refill : Less Than 3 Seconds Height, Weight, BMI Height: 5'4.00" Weight: 152lbs. 0.0oz. [id number]; 28.70 BMI Method:Stated General Appearance: No Apparent Distress, WD/WN HEENT: PERRL/EOMI, Pharynx Normal Neck: Normal Inspection, Supple Respiratory: Chest Non Tender, Lungs Clear, Normal Breath Sounds, No Respiratory Distress Cardiovascular: Regular Rate, Rhythm, No Edema, No Murmur Gastrointestinal: Normal Bowel Sounds, Non Tender, Soft Extremity: Normal Inspection, Pedal Edema, Swelling (left greater than right) Neurologic/Psychiatric: Alert, Normal Mood/Affect Skin: Normal Color, Warm/Dry Results Results/Procedures Labs Laboratory Tests 04/03/23 18:41 04/04/23 04:35 Patient resulted labs reviewed. Imaging: Reviewed Imaging Report Assessment/Plan Admission Diagnosis NSTEMI Admission Status: Inpatient Order (span 2 midnights) Reason for Inpatient Admission: Cardiology evaluation Diuresis Assessment and Plan T2DM with hypoglycemia Blood sugars improved Levemir, reduced dose Holding Novolog Sliding scale insulin NSTEMI Troponin elevated, stable Cardiology following Possible stress test vs heart cath Acute on chronic HFpEF CKD 3b Not requiring oxygen during my exam s/p IV Lasix Cr appears to be at baseline Echo with normal EF, grade II diastolic dysfunction, LVH HTN CAD Continue home meds PVD Leg swelling Chronic per patient and Reportedly thoroughly evaluated by Dr. Xiao Critical Care Critically Ill Patient Diagnosis/Problems Diagnosis/Problems (1) T2DM (type 2 diabetes mellitus) Status: Acute Qualifiers: Diabetes mellitus nursing home insulin use: with continuous churn buttermaker use Diabetes mellitus complication status: with hypoglycemia Diabetes mellitus complication detail: with coma Qualified Codes: E11.641 - Type 2 diabetes mellitus with hypoglycemia with coma; Z79.4 - continuous churn buttermaker (current) use of insulin (2) NSTEMI (non-ST elevation myocardial infarction) Status: Acute (3) Acute on chronic heart failure with preserved ejection fraction (HFpEF) Status: Acute (4) Stage 3a chronic kidney disease Status: Acute (5) HTN (hypertension) Status: Acute Qualifiers: Hypertension type: primary hypertension Qualified Codes: I10 - Essential (primary) hypertension (6) CAD (coronary artery disease) Status: Chronic (7) PVD (peripheral vascular disease) Status: Chronic PRAVEEN ANDERSON MD April 04, 2023 21:36
[2023-04-04] MEDS ORDERED: ENOXAPARIN 40 MG/0.4 ML (LOVENOX) SYR SC SCH (21:45)
[2023-04-05] MEDS: inSUlin ASPART (NovoLOG) 1 UNIT/0.01 ML (CHARGE PER UNIT) SC SCH ×2 (05:07→11:03)
[2023-04-05 05:31] LABS: BASOPHILS # (AUTO) 0.1 10^3/uL (0.0-0.1); BASOPHILS % (AUTO) 1 % (0-10); EOSINOPHILS # (AUTO) 0.3 10^3/uL (0.0-0.3); EOSINOPHILS % (AUTO) 3 % (0-10); HEMATOCRIT 47 % (40-54); HEMOGLOBIN 14.2 g/dL (13.3-17.7); LYMPHOCYTES # (AUTO) 1.2 10^3/uL (1.0-4.0); LYMPHOCYTES % (AUTO) 13 % (12-44); MEAN CORPUSCULAR HEMOGLOBIN 24 pg (25-34); MEAN CORPUSCULAR HGB CONC 30 g/dL (32-36); MEAN CORPUSCULAR VOLUME 77 fL (80-99); MEAN PLATELET VOLUME 10.2 fL (9.0-12.2); MONOCYTES % (AUTO) 10 % (0-12); NEUTROPHILS % (AUTO) 73 % (42-75); PLATELET COUNT 231 10^3/uL (130-400); WHITE BLOOD COUNT 9.7 10^3/uL (4.3-11.0)
[2023-04-05 05:54] LABS: ALBUMIN 3.6 GM/DL (3.2-4.5); BILIRUBIN,TOTAL 0.4 MG/DL (0.1-1.0); CREATININE SERUM 1.55 MG/DL (0.60-1.30); MAGNESIUM 2.1 MG/DL (1.6-2.4); PHOSPHORUS 2.2 MG/DL (2.3-4.7); POTASSIUM 3.6 MMOL/L (3.6-5.0)
[2023-04-05] MEDS: POTASSIUM CL 10MEQ/50ML IVPB 50 ML IV SCH (06:07)
[2023-04-05] MEDS: KCL 20 MEQ TAB (K-DUR) PO SCH (06:07)
[2023-04-05] MEDS: MAGNESIUM 1 GM/100 ML IVPB 100 ML IV SCH (06:07)
[2023-04-05] MEDS ORDERED: KCL 20 MEQ TAB (K-DUR) PO ONE (06:15)
[2023-04-05] MEDS ORDERED: PANTOPRAZOLE 40 MG (PROTONIX) TAB PO SCH (07:00)
--- NOTE | 2023-04-05 08:00 | Tele-ICU Progress Note ---
Subjective Date Seen by a Provider: April 05, 2023 Time Seen by a Provider: 07:54 Subjective/Events-last exam (Tele-ICU Physician , Progress Note ) Service provided via interactive audio and video telecommunications E-CARE system to a patient admitted to ICU bed in [facility]. Patient is seen today due to persistent need of ICU care Available chart/ vitals / labs / Images reviewed Video assessment done using teleICU camera, rest of exam as per RN Discussed with RN Admitted on 04/04 for AMS, hypoglycemia, has DM2 on insulin, improved with D10W, back on Levimer 20 U at night and sliding scale, las POC glu 165 5am today Other problems include, CKD, elevated trop, Hx of CAD with 2 stents, KALEY, not clear if on CPAP at home Sepsis Event Evaluation Height, Weight, BMI Height: 5'4.00" Weight: 152lbs. 0.0oz. 68.343902oi; 30.82 BMI Method:Stated Focused Exam Lactate Level 04/03/23 18:41: Lactic Acid Level 3.14*H 04/03/23 20:57: Lactic Acid Level 1.71 Exam Exam Patient acknowledged, consented, and participated in this virtual visit which was conducted using real time audio/video Vital Signs Date Time Temp Pulse Resp B/P (MAP) Pulse Ox O2 Delivery O2 Flow Rate FiO2 04/05/23 07:38 36.5 04/05/23 07:00 68 04/05/23 06:00 62 169/75 (106) 90 Nasal Cannula 4.00 04/05/23 05:00 65 166/76 (106) 90 Nasal Cannula 4.00 04/05/23 04:00 93 Room Air 04/05/23 04:00 65 170/72 (104) 93 Nasal Cannula 4.00 04/05/23 03:05 36.9 04/05/23 03:00 64 166/81 (109) 91 Nasal Cannula 4.00 04/05/23 02:00 63 156/70 (98) 88 Nasal Cannula 4.00 04/05/23 01:00 96 183/67 (105) 94 Nasal Cannula 4.00 04/05/23 00:09 71 04/05/23 00:00 71 176/76 (109) 90 Nasal Cannula 4.00 04/04/23 23:30 91 Room Air 04/04/23 23:24 36.8 04/04/23 23:00 75 91 Nasal Cannula 4.00 04/04/23 22:00 75 137/118 (124) 90 Nasal Cannula 4.00 04/04/23 21:00 80 170/60 (96) 90 Nasal Cannula 4.00 04/04/23 20:00 92 Room Air 04/04/23 20:00 62 174/76 (108) 90 Nasal Cannula 4.00 04/04/23 20:00 37.0 04/04/23 19:00 86 169/80 (109) 94 Nasal Cannula 4.00 04/04/23 18:30 74 04/04/23 18:00 75 138/90 (100) 91 Nasal Cannula 4.00 04/04/23 17:00 65 157/57 (94) Nasal Cannula 4.00 04/04/23 16:00 98 Nasal Cannula 4.00 04/04/23 16:00 36.0 04/04/23 16:00 91 192/81 (113) Nasal Cannula 4.00 04/04/23 15:00 70 16 144/56 (86) Nasal Cannula 4.00 04/04/23 14:00 71 20 168/63 (109) Nasal Cannula 4.00 04/04/23 13:00 70 19 141/60 (99) Nasal Cannula 4.00 04/04/23 12:43 69 04/04/23 12:00 98 Nasal Cannula 4.00 04/04/23 12:00 71 11 164/85 (112) 90 Nasal Cannula 4.00 04/04/23 11:34 36.8 04/04/23 11:00 63 18 160/67 (110) Nasal Cannula 4.00 04/04/23 10:00 69 25 168/114 (135) Nasal Cannula 4.00 04/04/23 09:00 60 18 146/59 (93) 92 Nasal Cannula 4.00 04/04/23 08:00 64 33 139/60 (72) Nasal Cannula 4.00 I & O 04/05/23 07:00 Intake Total 1950 ml Output Total 2675 ml Balance -725 ml Height & Weight Height: 5'4.00" Weight: 152lbs. 0.0oz. 68.647485si; 30.82 BMI Method:Stated General Appearance: No Apparent Distress, WD/WN HEENT: PERRL/EOMI, Pharynx Normal Neck: Normal Inspection, Supple Respiratory: Chest Non Tender, Lungs Clear, Normal Breath Sounds, No Respiratory Distress Cardiovascular: Regular Rate, Rhythm, No Edema, No Murmur Capillary Refill: Less Than 3 Seconds Gastrointestinal: normal bowel sounds, non tender, soft Extremity: Normal Inspection, No Pedal Edema, Pedal Edema, Swelling (left greater than right) Neurologic/Psychiatric: Alert, Normal Mood/Affect Skin: Normal Color, Warm/Dry Results Lab Laboratory Tests 04/03/23 18:41 04/04/23 04:35 04/05/23 04:52 Assessment/Plan Assessment/Plan Hypoglycemia, resolved, will keep on current insulin dose Can go out Critical Care: Critically Ill Patient Time spent with patient (mins): 25 RONA THEODORE MD April 05, 2023 08:00
[2023-04-05] MEDS ORDERED: meTOprolol SUCCINATE 100 MG (TOPROL XL) TAB PO SCH (09:00)
[2023-04-05] MEDS ORDERED: MAGNESIUM OXIDE (MAG-OX)400 MG TAB PO SCH (09:00)
[2023-04-05] MEDS ORDERED: LOSARTAN 50 MG (COZAAR) TAB PO SCH (09:00)
[2023-04-05] MEDS ORDERED: CLOPIDOGREL 75 MG (PLAVIX) TABLET PO SCH (09:00)
[2023-04-05] MEDS ORDERED: ASPIRIN 81 MG CHEW (CHILDREN'S ASA) PO SCH (09:00)
[2023-04-05] MEDS: GABAPENTIN 100 MG (NEURONTIN) CAP PO SCH ×2 (09:00→13:00)
[2023-04-05] MEDS ORDERED: amLODIPine 10 MG (NORVASC) TAB PO SCH (09:00)
[2023-04-05] MEDS ORDERED: ALLOPURINOL 100 MG (ZYLOPRIM) TAB PO SCH (09:00)
[2023-04-05 15:55] VITALS: BP 150/87
[2023-04-05] MEDS ORDERED: INSU100I14 SQ (16:01)
[2023-04-05] MEDS ORDERED: INSU100I10 SQ (16:01)
--- NOTE | 2023-04-05 16:16 | Cardiology Progress Note ---
Cardiology SOAP Progress Note Subjective: improved shortness of breath. no chest pain Objective: I&O/Vital Signs 04/05/23 04/05/23 04/05/23 04/05/23 05:00 06:00 07:00 07:00 Pulse 65 62 67 68 B/P (MAP) 166/76 (106) 169/75 (106) 163/76 (116) Pulse Ox 90 90 90 O2 Delivery Nasal Cannula Nasal Cannula Nasal Cannula O2 Flow Rate 4.00 4.00 4.00 04/05/23 04/05/23 04/05/23 04/05/23 07:38 08:00 08:00 09:00 Temp 36.5 Pulse 68 68 Resp 14 B/P (MAP) 122/79 (97) 170/76 (108) Pulse Ox 94 92 93 O2 Delivery Room Air Nasal Cannula Nasal Cannula O2 Flow Rate 4.00 4.00 04/05/23 04/05/23 04/05/23 04/05/23 10:00 11:00 12:00 12:00 Pulse 70 72 71 B/P (MAP) 179/70 (104) 169/78 (129) 171/75 (97) Pulse Ox 93 94 95 O2 Delivery Nasal Cannula Nasal Cannula Room Air Nasal Cannula O2 Flow Rate 4.00 4.00 4.00 04/05/23 04/05/23 04/05/23 04/05/23 12:01 12:50 13:00 14:00 Temp 37.0 Pulse 76 76 68 Resp 24 B/P (MAP) 171/109 (126) 136/81 (85) Pulse Ox 90 O2 Delivery Nasal Cannula Nasal Cannula O2 Flow Rate 4.00 4.00 04/05/23 04/05/23 04/05/23 15:00 16:00 16:00 Temp 36.0 Pulse 67 76 Resp 12 B/P (MAP) 150/87 (127) 159/76 (87) Pulse Ox 97 93 O2 Delivery Nasal Cannula Nasal Cannula O2 Flow Rate 4.00 4.00 04/05/23 00:00 Intake Total 1750 ml Output Total 900 ml Balance 850 ml Weight (Pounds): 152 Weight (Ounces): 0.0 Weight (Calculated Kilograms): 68.455149 Constitutional: AAO x 3 Respiratory: No accessory muscle use, No respiratory distress; lungs clear to auscultation; No wheezing Cardiovascular: regular rate-rhythm, S1 and S2; No diastolic murmur, No systolic murmur Gastrointestional: soft Extremities: pedal edema Neurologic/Psychiatric: no motor/sensory deficits, alert, normal mood/affect, oriented x 3 Skin: normal color Results/Procedures: Labs Laboratory Tests 04/04/23 17:57: Glucometer 139H 04/04/23 19:53: Glucometer 197H 04/05/23 04:52: White Blood Count 9.7, Red Blood Count 6.04H, Hemoglobin 14.2, Hematocrit 47, Mean Corpuscular Volume 77L, Mean Corpuscular Hemoglobin 24L, Mean Corpuscular Hemoglobin Concent 30L, Red Cell Distribution Width 20.4H, Platelet Count 231, Mean Platelet Volume 10.2, Immature Granulocyte % (Auto) 1, Neutrophils (%) (Auto) 73, Lymphocytes (%) (Auto) 13, Monocytes (%) (Auto) 10, Eosinophils (%) (Auto) 3, Basophils (%) (Auto) 1, Neutrophils # (Auto) 7.0, Lymphocytes # (Auto) 1.2, Monocytes # (Auto) 1.0, Eosinophils # (Auto) 0.3, Basophils # (Auto) 0.1, Immature Granulocyte # (Auto) 0.1, Sodium Level 140, Potassium Level 3.6, Chloride Level 104, Carbon Dioxide Level 27, Anion Gap 9, Blood Urea Nitrogen 20H, Creatinine 1.55H, Estimat Glomerular Filtration Rate 46, BUN/Creatinine Ratio 13, Glucose Level 147H, Calcium Level 9.0, Corrected Calcium 9.3, P hosphorus Level 2.2L, Magnesium Level 2.1, Total Bilirubin 0.4, Aspartate Amino Transf (AST/SGOT) 22, Alanine Aminotransferase (ALT/SGPT) 19, Alkaline Phosphatase 86, Troponin I 0.519*H, Total Protein 6.0L, Albumin 3.6 04/05/23 04:55: Glucometer 165H 04/05/23 10:46: Glucometer 121H 04/05/23 15:35: Glucometer 105 Microbiology 04/03/23 Blood Culture - Preliminary, Resulted No growth A/P: Assessment/Dx: Acute respiratory failure, likely due to acute diastolic congestive heart failure. CTA ruled out pulmonary embolism. Bilateral infiltrates noted. Acute on chronic diastolic congestive heart failure. Echocardiogram done 04/04/2023 shows moderate LVH with normal LV function with no wall motion abnormalities. LVH Coronary artery disease, previous PCI, Diabetes, Diabetic nephropathy Plan: Acute on chronic diastolic congestive heart failure. IV diuretics. Improved Positive troponin, with no serial increase. Likely due to acute diastolic congestive heart failure. However obstructive CAD cannot be ruled out. Patient will likely require either MPI or invasive evaluation of coronaries. creatinine still not back to baseline. troponin does not show any trend up. no wall motion abnormalities. no chest pain. Ok to discharge per patient request. and schedule nuclear stress test on thursday with Dr Solis (Dr Xiao is out of town). Positive D-dimer, pulmonary embolism ruled out with CTA. LVH Coronary artery disease, previous PCI, continue dual antiplatelet therapy with aspirin and Plavix. Continue goal-directed secondary medical therapy with ARB, beta-chapin and statin therapy. Diabetes, episodes of hypoglycemia. Will defer to the primary service. Diabetic nephropathy, gentle fluids given due to contrast given with the CT to rule out PE. Thank you for your consultation. Please call me if you have any questions. Eleazar Koch MD, FACP, FACC, FSCAI, FHRS, CCDS Interventional Cardiology Cardiac Electrophysiology Vascular Medicine and Endovascular Interventions Focused Exam Lactate Level 04/03/23 18:41: Lactic Acid Level 3.14*H 04/03/23 20:57: Lactic Acid Level 1.71 Rocky KOCH MD April 05, 2023 16:16
[2023-04-05] MEDS ORDERED: meTOproloL SUCCINATE 50 MG (TOPROL XL) TAB PO SCH (18:00)
--- NOTE | 2023-04-05 18:01 | Discharge Summary ---
Discharge Summary Hospital Course Problems/Dx: (1) T2DM (type 2 diabetes mellitus) Status: Acute Qualifiers: Qualified Codes: E11.641 - Type 2 diabetes mellitus with hypoglycemia with coma; Z79.4 - half-way (current) use of insulin (2) NSTEMI (non-ST elevation myocardial infarction) Status: Acute (3) Acute on chronic heart failure with preserved ejection fraction (HFpEF) Status: Acute (4) Stage 3a chronic kidney disease Status: Acute (5) HTN (hypertension) Status: Acute Qualifiers: Qualified Codes: I10 - Essential (primary) hypertension (6) CAD (coronary artery disease) Status: Chronic (7) PVD (peripheral vascular disease) Status: Chronic Hospital Course Date of Admission: April 03, 2023 at 23:55 Admission Diagnosis : NSTEMI, T2DM with hypoglycemia Family Physician/Provider: Sam Lujan DO Date of Discharge: 04/05/23 Discharge Diagnosis: NSTEMI, T2DM with hypoglycemia Hospital Course: Geovany Wilcox is a 77 year old male with PMH HTN, T2DM, HLD, CAD, PAD, HFpEF, who was admitted with T2DM with hypoglycemia and NSTEMI. He was found unresponsive at home by his . His blood sugar was 30. It improved with dextrose but continued to drop. He had possibly given himself a dose of Novolog after seeing a low blood sugar at home. His insulin doses were decreased and he remained normoglycemic with significantly lower doses than what was prescribed. His course was complicated by elevated troponin due to NSTEMI. He had no chest pain or shortness of breath. Cardiology was consulted and assisted with his care. Because he was asymptomatic with no wall motion abnormalities and his troponin did not increase in a typical fashion for acute coronary syndrome, they recommended an outpatient nuclear stress test, preferrably this week. He should follow up with his PCP and Cardiology. He was discharged home in stable condition. Labs and Pending Lab Test: Laboratory Tests 04/04/23 17:57: Glucometer 139H 04/04/23 19:53: Glucometer 197H 04/05/23 04:52: White Blood Count 9.7, Red Blood Count 6.04H, Hemoglobin 14.2, Hematocrit 47, Mean Corpuscular Volume 77L, Mean Corpuscular Hemoglobin 24L, Mean Corpuscular Hemoglobin Concent 30L, Red Cell Distribution Width 20.4H, Platelet Count 231, Mean Platelet Volume 10.2, Immature Granulocyte % (Auto) 1, Neutrophils (%) (Auto) 73, Lymphocytes (%) (Auto) 13, Monocytes (%) (Auto) 10, Eosinophils (%) (Auto) 3, Basophils (%) (Auto) 1, Neutrophils # (Auto) 7.0, Lymphocytes # (Auto) 1.2, Monocytes # (Auto) 1.0, Eosinophils # (Auto) 0.3, Basophils # (Auto) 0.1, Immature Granulocyte # (Auto) 0.1, Sodium Level 140, Potassium Level 3.6, Chloride Level 104, Carbon Dioxide Level 27, Anion Gap 9, Blood Urea Nitrogen 20H, Creatinine 1.55H, Estimat Glomerular Filtration Rate 46, BUN/Creatinine Ratio 13, Glucose Level 147H, Mean Blood Glucose [Pending], Hemoglobin A1c [Pending], Calcium Level 9.0, Corrected Calcium 9.3, Phosphorus Level 2.2L, Magnesium Level 2.1, Total Bilirubin 0.4, Aspartate Amino Transf (AST/SGOT) 22, Alanine Aminotransferase (ALT/SGPT) 19, Alkaline Phosphatase 86, Troponin I 0.519*H, Total Protein 6.0L, Albumin 3.6 04/05/23 04:55: Glucometer 165H 04/05/23 10:46: Glucometer 121H 04/05/23 15:35: Glucometer 105 Microbiology 04/03/23 Blood Culture - Preliminary, Resulted No growth Home Meds Active Lantus Solostar (Insulin Glargine,Hum.rec.anlog) 100 Unit/Ml (3 Ml) Insuln.pen 30 Unit SQ HS 30 Days Novolog Flexpen (Insulin Aspart) 100 Unit/Ml (3 Ml) Solution 10 Units SQ WM 30 Days Reported Losartan Potassium 50 Mg Tablet 50 Mg PO DAILY Cyanocobalamin Injection (Cyanocobalamin) 1,000 Mcg/Ml Inj 1,000 Mcg IM EVERY 3 WEEKS Testosterone Cypionate 200 Mg/Ml Vial 200 Mg IM EVERY 3 WEEKS Klor-Con M10 (Potassium Chloride) 10 Meq Tab.er.prt 20 Meq PO TID TAKES 2 (10MEQ) TABS Metoprolol Succinate 100 Mg Tab.er.24h 50 Mg PO 1800 TAKES OF A 100MG TAB Calcitriol 0.25 Mcg Capsule 0.25 Mcg PO DAILY Furosemide 40 Mg Tablet 40 Mg PO DAILY Pantoprazole Sodium 40 Mg Tablet.dr 40 Mg PO BID Clopidogrel (Clopidogrel Bisulfate) 75 Mg Tablet 75 Mg PO DAILY Metoprolol Succinate 100 Mg Tab.er.24h 100 Mg PO DAILY Vitamin D3 (Cholecalciferol (Vitamin D3)) 125 Mcg Capsule 125 Mcg PO DAILY Aspirin EC (Aspirin) 81 Mg Tablet.dr 81 Mg PO DAILY Amlodipine Besylate 10 Mg Tablet 10 Mg PO DAILY Allopurinol 100 Mg Tablet 100 Mg PO DAILY Alogliptin (Alogliptin Benzoate) 12.5 Mg Tablet 12.5 Mg PO DAILY Chlorthalidone 25 Mg Tablet 25 Mg PO DAILY Magnesium Oxide 400 Mg Tablet 400 Mg PO DAILY Fish Oil 1,000 mg Softgel ([place]-3 Fatty Acids/Fish Oil) 1 Each Capsule 1,000 Mg PO DAILY Tramadol HCl 50 Mg Tablet 100 Mg PO Q6H PRN TAKES 2 (50MG) TABS Gabapentin 100 Mg Capsule 100 Mg PO QID Atorvastatin Calcium 20 Mg Tablet 20 Mg PO HS Assessment/Pt Instructions See instructions Discharge Planning: >30 minutes discharge planning Discharge Instructions Discharge Diet: Low Sodium Diet, ADA Diet Activity as Tolerated: Yes Consultations Cardiology Discharge Physical Examination Vital Signs Vital Signs Date Time Temp Pulse Resp B/P (MAP) Pulse Ox O2 Delivery O2 Flow Rate FiO2 04/05/23 16:00 36.0 04/05/23 16:00 76 12 159/76 (87) 93 Nasal Cannula 4.00 General Appearance: No Apparent Distress, Obese Respiratory: Lungs Clear, No Respiratory Distress Cardiovascular: Regular Rate, Rhythm, No Murmur Gastrointestinal: Normal Bowel Sounds, Non Tender, Soft Extremity: Normal Inspection, Pedal Edema Skin: Normal Color, Warm/Dry Neurologic/Psychiatric: Alert, Normal Mood/Affect Allergies: Coded Allergies: lisinopril (Verified Adverse Reaction, Unknown, affects kidneys, 07/02/22) metformin (Verified Adverse Reaction, Unknown, affects kidneys, 07/02/22) Copy Copies To 1: SAM LUJAN DO Copies To 2: LUCIA SCHNEIDER MD Discharge Summary Date of Admission April 03, 2023 at 23:55 Date of Discharge April 05, 2023 at 15:55 Discharge Date: April 05, 2023 Discharge Time: 15:55 Admission Diagnosis NSTEMI Consults/Procedures Consulations Cardiology Discharge Diagnosis T2DM with hypoglycemia NSTEMI Acute on chronic HFpEF CKD 3b HTN CAD PVD Chronic leg swelling (1) T2DM (type 2 diabetes mellitus) Status: Acute Qualifiers: Qualified Codes: E11.641 - Type 2 diabetes mellitus with hypoglycemia with coma; Z79.4 - extermination inspector (current) use of insulin (2) NSTEMI (non-ST elevation myocardial infarction) Status: Acute (3) Acute on chronic heart failure with preserved ejection fraction (HFpEF) Status: Acute (4) Stage 3a chronic kidney disease Status: Acute (5) HTN (hypertension) Status: Acute Qualifiers: Qualified Codes: I10 - Essential (primary) hypertension (6) CAD (coronary artery disease) Status: Chronic (7) PVD (peripheral vascular disease) Status: Chronic PRAVEEN ANDERSON MD April 05, 2023 17:58
== END 2023-04-05 15:55 | disposition home or self-care (01) | DRG 280 ==
LOC: EDUNIT# 17:57 → ER 17:58 → ICU 23:55
PROVIDERS: ADMIT Internal Medicine; ATTEND Internal Medicine
DX: I21.4 Non-ST elevation (NSTEMI) myocardial infarction (principal); I50.33 Acute on chronic diastolic (congestive) heart failure; J96.01 Acute respiratory failure with hypoxia; I13.0 Hypertensive heart and chronic kidney disease with heart failure and stage 1 through stage 4 chronic kidney disease, or unspecified chronic kidney disease; N17.9 Acute kidney failure, unspecified; E11.649 Type 2 diabetes mellitus with hypoglycemia without coma; N18.32 Chronic kidney disease, stage 3b; E11.22 Type 2 diabetes mellitus with diabetic chronic kidney disease; I25.10 Atherosclerotic heart disease of native coronary artery without angina pectoris; E11.51 Type 2 diabetes mellitus with diabetic peripheral angiopathy without gangrene; Z87.891 Personal history of nicotine dependence; Z95.5 Presence of coronary angioplasty implant and graft; Z95.0 Presence of cardiac pacemaker; E78.00 Pure hypercholesterolemia, unspecified; K21.9 Gastro-esophageal reflux disease without esophagitis; K58.9 Irritable bowel syndrome, unspecified; M19.90 Unspecified osteoarthritis, unspecified site; G89.29 Other chronic pain; M54.9 Dorsalgia, unspecified; Z79.82 Long term (current) use of aspirin; Z79.4 Long term (current) use of insulin; Z79.899 Other long term (current) drug therapy; G47.33 Obstructive sleep apnea (adult) (pediatric); E11.21 Type 2 diabetes mellitus with diabetic nephropathy; Z20.822 Contact with and (suspected) exposure to COVID-19
CPT/HCPCS: 36415; 36600; 71045; 71275; 80048; 80053; 81000; 82805; 82947; 83036; 83605; 83735; 83880; 84100; 84484; 85007; 85025; 85027; 85379; 85610; 85730; 86141; 87040; 87081; 87636; 93041; 93306

== ENCOUNTER → 2023-05-20 | Outpatient (CLI) | payer OTHER ==
--- NOTE | 2023-05-20 14:49 | Diagnostic Imaging Report ---
INDICATION: Pre-MRI screening. TIME OF EXAM: 2:35 PM. FINDINGS: A single view of the chest shows a dual-lead left subclavian cardiac pacemaker. No definite abandoned leads are identified. The heart size is normal. The lungs are clear. No infiltrates are detected. There is no effusion or pneumothorax. IMPRESSION: No evidence of abandoned leads. Dictated by: Dictated on workstation # [id number]
--- NOTE | 2023-05-20 16:17 | Diagnostic Imaging Report ---
EXAMINATION: Magnetic resonance imaging of the left knee without intravenous contrast. DATE: May 20, 2023. COMPARISON: None. INDICATION: 77-year-old male, left knee pain. TECHNIQUE: Multiplanar, multisequence non contrast enhanced MR imaging was accomplished. FINDINGS: MENISCI: There is an oblique tear involving the anterior horn, body, and posterior horn of the medial meniscus. There is 4 mm medial meniscal extrusion. There is a longitudinal horizontal type tear of the anterior horn, body, and posterior horn of the lateral meniscus. The lateral meniscus is discoid. LIGAMENTS AND TENDONS: The anterior and posterior cruciate ligaments are intact. The medial collateral ligament is intact. The iliotibial band, mid third lateral capsular ligament, fibular collateral ligament, biceps femoris tendon, and conjoined tendon are intact. The quadriceps tendon and patella ligament are intact. JOINT: There are broad areas of full-thickness or near full-thickness cartilage loss of the medial femoral condyle and medial tibial plateau in their weightbearing portions. There is no knee joint effusion, prominent synovitis, or intra-articular body. BONE: There is low-level degenerative related marrow edema adjacent to the medial compartment. There is no acute fracture, bone contusion, or stress reaction. BURSAE AND SOFT TISSUES: There is a ruptured Yarbrough's cyst. IMPRESSION: 1. Complete tear of the anterior horn, body, and posterior horn of the medial meniscus with 4 mm medial meniscal extrusion. 2. Longitudinal horizontal type tear of the entire discoid lateral meniscus. 3. Intact anterior and posterior cruciate ligaments. Additional ligaments and tendons are intact. 4. Severe medial compartment osteoarthritis without knee joint effusion. 5. No acute fracture, bone contusion, or evidence of osteonecrosis. 6. Ruptured Yarbrough's cyst. Dictated by: Dictated on workstation # [id number]
== END ==
LOC: RAD 13:40
PROVIDERS: ATTEND Nurse Practitioner
DX: S83.242A Other tear of medial meniscus, current injury, left knee, initial encounter (principal); S83.282A Other tear of lateral meniscus, current injury, left knee, initial encounter; M17.12 Unilateral primary osteoarthritis, left knee; M66.0 Rupture of popliteal cyst; X58.XXXA Exposure to other specified factors, initial encounter
CPT/HCPCS: 71045; 73721

== ENCOUNTER → 2023-06-04 | Outpatient (CLI) | payer OTHER, MEDICARE | LOC: ORTHO 13:26 | PROVIDERS: ATTEND Orthopaedic Surgery | DX: M17.12 Unilateral primary osteoarthritis, left knee (principal) | CPT/HCPCS: 99203 ==

== ENCOUNTER → 2023-07-21 | Outpatient (CLI) | payer OTHER, MEDICAID ==
[2023-07-21 15:56] LABS: BASOPHILS # (AUTO) 0.1 10^3/uL (0.0-0.1); BASOPHILS % (AUTO) 1 % (0-10); EOSINOPHILS # (AUTO) 0.3 10^3/uL (0.0-0.3); EOSINOPHILS % (AUTO) 3 % (0-10); HEMATOCRIT 46 % (40-54); HEMOGLOBIN 14.3 g/dL (13.3-17.7); LYMPHOCYTES # (AUTO) 1.2 10^3/uL (1.0-4.0); LYMPHOCYTES % (AUTO) 15 % (12-44); MEAN CORPUSCULAR HEMOGLOBIN 26 pg (25-34); MEAN CORPUSCULAR HGB CONC 31 g/dL (32-36); MEAN CORPUSCULAR VOLUME 83 fL (80-99); MEAN PLATELET VOLUME 10.3 fL (9.0-12.2); MONOCYTES # (AUTO) 0.7 10^3/uL (0.0-1.0); MONOCYTES % (AUTO) 9 % (0-12); NEUTROPHILS # (AUTO) 5.9 10^3/uL (1.8-7.8); NEUTROPHILS % (AUTO) 72 % (42-75); PLATELET COUNT 225 10^3/uL (130-400); WHITE BLOOD COUNT 8.3 10^3/uL (4.3-11.0)
[2023-07-21 16:14] LABS: CALCIUM 9.4 MG/DL (8.5-10.1); CREATININE SERUM 1.76 MG/DL (0.60-1.30); POTASSIUM 4.3 MMOL/L (3.6-5.0)
[2023-07-21 16:16] LABS: CLARITY,URINE CLEAR; COLOR,URINE YELLOW; PH,URINE 7.5 (5-9); PROTEIN,URINE 1+ (NEGATIVE)
[2023-07-21 16:17] LABS: BACTERIA,URINE TRACE /HPF; BILIRUBIN,URINE NEGATIVE (NEGATIVE); GLUCOSE, URINE (UA) 2+ (NEGATIVE); KETONES,URINE NEGATIVE (NEGATIVE); LEUKOCYTE ESTERASE ,URINE NEGATIVE (NEGATIVE); NITRITE,URINE NEGATIVE (NEGATIVE); SQUAMOUS EPITHELIAL CELL,UR RARE /HPF; WBC,URINE RARE /HPF
--- NOTE | 2023-07-21 16:50 | Diagnostic Imaging Report ---
INDICATION: Preop for knee replacement surgery. PA and lateral chest obtained at 0329 p.m. Heart and mediastinal silhouette are normal in appearance. Dual-lead pacemaker is unchanged. There is no pneumothorax or pleural fluid. IMPRESSION: No acute process in the chest. Dictated by: Dictated on workstation # [id number]
== END ==
LOC: ORTHO 14:19
PROVIDERS: ATTEND Orthopaedic Surgery
DX: M17.12 Unilateral primary osteoarthritis, left knee (principal); I10 Essential (primary) hypertension; E78.2 Mixed hyperlipidemia; E66.01 Morbid (severe) obesity due to excess calories
CPT/HCPCS: 36415; 71046; 80048; 81000; 85025; 99213

== ENCOUNTER → 2023-08-03 | Outpatient (CLI) | payer OTHER ==
[~2023-08-03] MED LIST changes: +AMOX1TAB12 PO; +APIX2.5T PO; +B6/F1CAP PO; +CHOL4PAC3 PO; +INSU100I78 SQ; +LACT1CAP7 PO; +LINE600T12 PO; +METO50TA7 PO; +OXC5T PO; +PIOG30TA71 PO; +SUCR1TAB PO
== END ==
LOC: RAD 11:48
PROVIDERS: ATTEND Orthopaedic Surgery
DX: Z53.9 Procedure and treatment not carried out, unspecified reason (principal)

== ENCOUNTER 2023-08-10 07:58 | Day surgery (SDC) | payer MEDICAID, OTHER ==
--- NOTE | 2023-08-03 15:48 | Diagnostic Imaging Report ---
PROCEDURE: CT left lower extremity without contrast. TECHNIQUE: Multiple contiguous axial images were obtained through the left lower extremity without the use of intravenous contrast. Sagittal and coronal reformations were then performed. Auto Exposure Controls were utilized during the CT exam to meet ALARA standards for radiation dose reduction. INDICATION: Left knee pain. COMPARISON: MRI from 05/20/2023. FINDINGS: No acute fracture is seen in the left knee. There is moderate degenerative change in the medial compartment with joint space loss and subchondral sclerosis. There is minimal degenerative change in the lateral compartment. There are mild degenerative changes in the patellofemoral compartment. There is a moderate left knee joint effusion. No focal muscular atrophy is seen. There is mild subcutaneous edema about the knee. There is a small Yarbrough's cyst. No acute abnormality is seen in the left hip or left ankle. There may be a small fat-containing left inguinal hernia. There is mild degenerative change in the left hip. There is calcific atherosclerosis. IMPRESSION: 1. Degenerative changes in the left knee, most pronounced in the medial compartment. 2. Moderate left knee joint effusion with a small Yarbrough's cyst. Dictated by: Dictated on workstation # [id number]
[2023-08-10] VITALS (12 sets, daily range): BP systolic 105–175; BP diastolic 56–95
[~2023-08-10] VITALS: Ht 165.1 cm; Wt 86.7 kg
[~2023-08-10 07:58] MED LIST changes: -AMOX1TAB12 PO; -APIX2.5T PO; -B6/F1CAP PO; -CHOL4PAC3 PO; -INSU100I78 SQ; -LACT1CAP7 PO; -LINE600T12 PO; -METO50TA7 PO; -OXC5T PO; -PIOG30TA71 PO; -SUCR1TAB PO
[2023-08-10] MEDS ORDERED: LACTATED RINGERS 1,000 ML 1,000 ML IV PRN (08:15)
[2023-08-10] MEDS ORDERED: ceFAZolin INJECTION 2,000 MG in NS (IVPB) 50 ML 50 ML IV ONE (08:15)
--- NOTE | 2023-08-10 10:02 | Progress Note-Pre Operative ---
Pre-Operative Progress Note Date of Available H&P: Jul 21, 2023 Date H&P Reviewed: Aug 10, 2023 Time H&P Reviewed: 09:55 History & Physical: H&P Reviewed, Patient Examed, No changes noted Pre-Operative Diagnosis: Left Knee Primary Osteoarthritis HAKEEM VILLANUEVA MD Aug 10, 2023 10:02
[2023-08-10] MEDS ORDERED: fentaNYL INJECTION 100 MCG/2 ML VIAL ONE ×2 (10:04→11:32)
[2023-08-10] MEDS ORDERED: ONDANSETRON INJECTION 4 MG/2 ML (SDV) ONE (10:04)
[2023-08-10] MEDS ORDERED: LIDOCAINE PF 2% 5 ML VIAL ONE (10:04)
[2023-08-10] MEDS ORDERED: SEVOFLURANE (ULTANE) 15 ML INHAL SOLN ONE (10:04)
[2023-08-10] MEDS ORDERED: proPOfol INJECTION 200 MG/20 ML VIAL IV ONE (10:04)
[2023-08-10] MEDS ORDERED: MIDAZOLAM INJ 2 MG/2 ML VIAL ONE (10:04)
[2023-08-10] MEDS ORDERED: ROPIVACAINE 5 MG/ML 30ML VIAL ONE (11:33)
--- NOTE | 2023-08-10 12:42 | Operative Report - Ortho ---
Operative Report Surgeon (s)/Chief Lock Operator (s) Surgeon HAKEEM VILLANUEVA MD Chief Lock Operator n/a Pre-Operative Diagnosis Left Knee Primary Osteoarthritis Post-Operative Diagnosis same Operative Report Date of Procedure: Aug 10, 2023 Name of Procedure Performed: Robotic Assisted Left Total Knee Arthroplasty Description & Findings After obtaining informed consent and marking the patient in the preoperative holding area, the patient did receive IV antibiotics. Patient was taken to the operating room and anesthesia was induced. Surgical timeout was taken. The left lower extremity was prepped and draped in the usual sterile fashion. Incision was made and carried down to fascia. Arthrotomy was performed on the medial side of the patella. Patella was retracted laterally and knee was flexed. Found to have circumferential osteophtye around the distal femur as well as exposed bone in the medial compartment. ACL and anterior horns of the menisci were removed. 3.2 mm pins were placed in the medial femoral condyle for the femoral array and checkpoint was placed next to the pins. 3.2 mm pins were placed in the proximal tibia and checkpoint was placed there as well. Arrays were placed and tightened into position. The femur and tibia were then registered. Osteophytes were removed. The knee was then tensioned with varus and valgus stress in extension and flexion. Measurements were captured and adjustments were made to the preoperative plan to balance the flexion and extension gaps at 20 mm. Robotic arm was brought into position and all femoral cuts as well as the tibial cut were performed. Bone blocks were removed. Lamina parimutuel cashier was placed and the remainder of the mensici as well as posterior osteophytes were removed. Pin arrays were removed. Box cut was performed. The knee was trialed with a size 4 femur and a size 4 tibia with a 9 mm poly trial. It was found to come out to full extension and flexed beyond 120 degrees. It was stable to varus and valgus stress throughout its range of motion. This was accepted. Knee was brought out into extension and the patella was measured at 20 mm of thickness. Osteophytes were removed from around the perimeter of the patella. Patella tracked well through the trochlear groove of the femur. Lug holes were drilled in the distal femur. Trial implants were removed. Tibial tray was pinned and punched. Tibial press fit guide was placed and holes were drilled. The cut bone surfaces were lavaged with pulsatile normal saline. Implants were opened and assembled on the back table. A size 4 press fit tibial component was impacted into place. Cement was mixed and applied to the distal femur. A size 4 femoral component was impacted into place and excess cement was removed using a freer. Tibial tray was lavaged with saline. A 9 mm thick polyethylene component was locked into placed and the locking mechanism was checked. Knee was brought into extension. Irrisept soak was performed and then, the knee was irrigated with normal saline. The knee was once again trialed; found to come to full extension, flexed beyond 120 degrees, and was stable to varus and valgus stress. Tourniquet was dropped and electrocautery was used for hemostasis. Fascial layer was closed with #2 Stratafix. The subcutaneous layer was closed with 2-0 Vicryl. The skin was closed with melinda. Wound was dressed with xeroform, 4x4s, ABD, webril, and [place] wrap. Patient tolerated the procedure well and was stable to the recovery room. Anesthesia Type General Estimated Blood Loss 100 mL Specimen(s) collected/removed None HAKEEM VILLANUEVA MD Aug 10, 2023 12:42
[2023-08-10] MEDS ORDERED: ONDANSETRON INJECTION 4 MG/2 ML (SDV) IV PRN (12:45)
[2023-08-10] MEDS ORDERED: BISACODYL 5 MG TABLET PO PRN (12:45)
[2023-08-10] MEDS ORDERED: MILK OF MAGNESIA 400 MG/5 ML 30 ML UDC PO PRN (12:45)
[2023-08-10] MEDS ORDERED: ACETAMINOPHEN 500 MG TABLET PO PRN (12:45)
--- NOTE | 2023-08-10 12:49 | Anesthesia-General Post-Op ---
General Patient Condition Mental Status/LOC: Same as Preop Cardiovascular: Satisfactory Nausea/Vomiting: Absent Respiratory: Satisfactory Pain: Controlled Complications: Absent Post Op Complications Complications None Follow Up Care/Instructions Patient Instructions None needed. Anesthesia/Patient Condition Patient Condition Patient is doing well, no complaints, stable vital signs, no apparent adverse anesthesia problems. No complications reported per nursing. FABRICE DOCKERY CRNA Aug 10, 2023 12:49
[2023-08-10] MEDS ORDERED: NON-FORMULARY MEDICATION 1 EA EA (Insulin Aspart (Novolog Flexpen) 10 UNITS) SQ SCH (13:00)
[2023-08-10] MEDS ORDERED: morphine INJ 10 MG/ML 1ML (SYR OR VIAL) IVP ONE (13:00)
[2023-08-10] MEDS ORDERED: POTASSIUM CHLORIDE 20 MEQ PO SCH (13:00)
[2023-08-10] MEDS ORDERED: ONDANSETRON INJECTION 4 MG/2 ML (SDV) IVP PRN (13:00)
[2023-08-10] MEDS ORDERED: HYDROmorphone INJECTION 2 MG/ML VIAL IV ONE (13:00)
[2023-08-10] MEDS ORDERED: MEPERIDINE INJ 50 MG/ML VIAL IVP ONE (13:00)
--- NOTE | 2023-08-10 13:30 | Diagnostic Imaging Report ---
INDICATION: Left knee pain. AP and lateral views left knee are obtained at 1256 p.m. There is a new left knee prosthesis in place. Device is in good alignment. Soft tissue gas is noted compatible with recent surgery. There is no unexpected radiopaque foreign body. IMPRESSION: Well aligned left knee prosthesis with no unexpected radiopaque foreign body. Dictated by: Dictated on workstation # [id number]
[2023-08-10] MEDS: morphine INJ 4 MG/ML 1 ML (VIAL/SYRINGE) IVP PRN ×2 (14:41→18:27)
[2023-08-10] MEDS: NS IV 1000 ML 1,000 ML IV SCH ×2 (15:30→22:44)
[2023-08-10] MEDS: oxyCODONE IMMEDIATE RELEASE 5 MG TABLET PO PRN ×2 (15:30→23:31)
[2023-08-10] MEDS: GABAPENTIN 100 MG CAPSULE PO SCH ×3 (15:30→20:23)
[2023-08-10] MEDS: POTASSIUM CHLORIDE 20 MEQ TABLET PO SCH (17:31)
[2023-08-10] MEDS: ASPIRIN enteric coated 81MG TABLET PO SCH (17:31)
[2023-08-10] MEDS: inSUlin ASPART 1 UNIT/0.01 ML (PER UNIT) SC SCH (17:33)
[2023-08-10] MEDS ORDERED: PATIENT MAY USE OWN MEDS, ALL MC SCH (17:45)
[2023-08-10] MEDS ORDERED: KETOROLAC INJ 30 MG/ML VIAL IVP NR (19:30)
--- NOTE | 2023-08-10 20:00 | Consultation ---
HPI History of Present Illness: HPI/Chief Complaint Chief complaint: Medical management following left knee replacement HPI: This is a 77-year-old male clinic patient of the [facility] and who presented following an uncomplicated left total knee replacement. Currently he is slightly confused and still complaining of pain. We will monitor labs and blood pressure and we will evaluate cardiac murmur work-up. Source: patient Exam Limitations: clinical condition Date Seen 08/10/23 Attending Physician Sam Lujan DO PCP Admitting Physician: Attending Physician: Lionel Barrios MD Referring Physician Date of Admission Home Medications & Allergies Home Medications Reviewed patient Home Medication Reconciliation performed by pharmacy medication reconciliations blend technician and/or nursing. Patients Allergies have been reviewed. Allergies Allergies Coded Allergies lisinopril (Verified Adverse Reaction, Unknown, affects kidneys, 07/02/22) metformin (Verified Adverse Reaction, Unknown, affects kidneys, 07/02/22) Past Tflrggt-Hszhdx-Fmmqps Hx Past Med/Social Hx: Reviewed Nursing Past Med/Soc Hx, Reviewed and Corrections made Patient Social History Marrital Status: single Employed/Student: retired Smoking Status: Former Smoker Former Smoker, Quit: Aug 19, 1991 Type Used: Cigarettes Recent Hopitalizations: No Immunizations Up To Date Tetanus Booster (TDap): Unknown Date of Pneumonia Vaccine: Aug 09, 2020 Date of Influenza Vaccine: Aug 04, 2023 Seasonal Allergies Seasonal Allergies: Yes Past Medical History Surgeries: Abdominal, Coronary Stent, Eye Surgery, Orthopedic, Pacemaker, Tonsillectomy, Vascular Surgery Currently Using CPAP: No Cardiac: Coronary Artery Disease, High Cholesterol, Hypertension, Peripheral Vascular, Valvular Heart Disease Neurological: TIA Reproductive: No Sexually Transmitted Disease: No Genitourinary: Renal Failure Gastrointestinal: Gastroesophageal Reflux, Irritable Bowel Musculoskeletal: Arthritis, Chronic Back Pain, Fractures Endocrine: Diabetes, Insulin dep HEENT: Cataract Cancer: Skin Did You Recieve Any Treatments: Yes What Type of Treatment Did You: Surgical Intervention Skin/Integumentary: Psoriasis History of Blood Disorders: No Adverse Reaction to Blood Singh: No Family History Family history: Diabetes mellitus 19 MOTHER G8 SISTER Heart disease G8 BROTHER UNCLE Heart Disease, Diabetes Review of Systems Constitutional: see HPI, malaise, weakness Musculoskeletal: joint pain Physical Exam Physical Exam Vital Signs Vital Signs - First Documented 08/10/23 07:45 Temp 36.7 Pulse 85 Resp 22 B/P (MAP) 170/77 (108) Pulse Ox 93 O2 Delivery Room Air Capillary Refill : Less Than 3 Seconds Height, Weight, BMI Height: 5'4.00" Weight: 152lbs. 0.0oz. [id number]; 31.80 BMI Method:Stated General Appearance: No Apparent Distress, WD/WN, Chronically ill Respiratory: Chest Non Tender, Lungs Clear, Normal Breath Sounds, No Accessory Muscle Use, No Respiratory Distress Cardiovascular: Regular Rate, Rhythm, No Edema, No Gallop, No JVD, Normal Peripheral Pulses, Systolic Murmur Neurologic/Psychiatric: Alert, Depressed Affect, Disoriented Results Results/Procedures Labs Patient resulted labs reviewed. Assessment/Plan Assessment and Plan Assess & Plan/Chief Complaint Assessment: Status post uncomplicated left total knee replacement Hypertension Cardiac murmur Hypertension Hyperlipidemia Baseline confusion Plan: Supportive care Pain control PT and OT KEIKO LYNN DO Aug 10, 2023 20:00
[2023-08-10] MEDS: PANTOPRAZOLE 40 MG TABLET PO SCH (20:23)
[2023-08-10] MEDS: DOCUSATE SODIUM 100 MG CAPSULE PO SCH (20:23)
[2023-08-10] MEDS: ceFAZolin INJECTION 2,000 MG in NS (IVPB) 50 ML 50 ML IV SCH (20:24)
[2023-08-10] MEDS: inSUlin DETERMIR 1 UNIT/0.01 ML (CHARGE PER UNIT) SQ SCH (20:25)
[2023-08-10] MEDS ORDERED: ceFAZolin INJECTION 2,000 MG in NS (IVPB) 50 ML 50 ML IV SCH (21:00)
[2023-08-10] MEDS ORDERED: NON-FORMULARY MEDICATION 1 EA EA (Insulin Glargine,Hum.rec.anlog (Lantus Solostar) 30 UNIT SQ SCH (21:00)
[2023-08-11 04:00] VITALS: BP 149/69
[2023-08-11] MEDS: ceFAZolin INJECTION 2,000 MG in NS (IVPB) 50 ML 50 ML IV SCH (05:31)
[2023-08-11] MEDS: THERAPEUTIC MULTIVITAMIN W/MINERALS TABLET PO SCH (05:32)
[2023-08-11] MEDS: oxyCODONE IMMEDIATE RELEASE 5 MG TABLET PO PRN ×5 (05:32→23:43)
[2023-08-11 06:27] LABS: BASOPHILS # (AUTO) 0.1 10^3/uL (0.0-0.1); BASOPHILS % (AUTO) 1 % (0-10); EOSINOPHILS # (AUTO) 0.1 10^3/uL (0.0-0.3); EOSINOPHILS % (AUTO) 2 % (0-10); HEMATOCRIT 37 % (40-54); HEMOGLOBIN 11.6 g/dL (13.3-17.7); LYMPHOCYTES # (AUTO) 0.9 10^3/uL (1.0-4.0); LYMPHOCYTES % (AUTO) 10 % (12-44); MEAN CORPUSCULAR HEMOGLOBIN 26 pg (25-34); MEAN CORPUSCULAR HGB CONC 31 g/dL (32-36); MEAN CORPUSCULAR VOLUME 83 fL (80-99); MEAN PLATELET VOLUME 10.5 fL (9.0-12.2); MONOCYTES # (AUTO) 1.3 10^3/uL (0.0-1.0); MONOCYTES % (AUTO) 14 % (0-12); NEUTROPHILS # (AUTO) 6.9 10^3/uL (1.8-7.8); NEUTROPHILS % (AUTO) 74 % (42-75); PLATELET COUNT 179 10^3/uL (130-400); WHITE BLOOD COUNT 9.3 10^3/uL (4.3-11.0)
[2023-08-11 06:45] LABS: ALBUMIN 3.3 GM/DL (3.2-4.5); BILIRUBIN,TOTAL 0.5 MG/DL (0.1-1.0); CALCIUM 8.2 MG/DL (8.5-10.1); CREATININE SERUM 1.54 MG/DL (0.60-1.30); POTASSIUM 4.1 MMOL/L (3.6-5.0); TOTAL PROTEIN 5.4 GM/DL (6.4-8.2)
[2023-08-11 07:26] VITALS: BP 129/72
--- NOTE | 2023-08-11 08:16 | Physical Therapy Evaluation ---
PT Evaluation-General Medical Diagnosis Admission Date August 10, 2023 Medical Diagnosis: left knee OA Onset Date: Aug 10, 2023 Therapy Diagnosis Therapy Diagnosis: impaired mobility/gait deficit/weakness Height/Weight Height (Feet): 5 Height (Inches): 4.00 Weight (Pounds): 152 Weight (Ounces): 0.0 Precautions Precautions/Isolations: Standard Precautions Weight Bear Status Right Lower Extremity: Right Full Weight Bearing Left Lower Extremity: Left Weight Bearing/Tolerated Referral Physician: Sophie Reason for Referral: Evaluation/Treatment Medical History Pertinent Medical History: CAD, DM, HTN, PVD Current History s/p elective left TKR Reviewed History: Yes Social History Home: Single Level Current Living Status: Spouse Entry Into Home: Stairs With Railing PT Steps Into Home: 7 Prior Prior Level of Function SCALE: Activities may be completed with or without assistive devices. 7-Pqgtznyita-nvaqtuo completes the activity by him/herself with no assistance from a helper. 5-Set-up or Clean-up Assistance-helper sets up or cleans up; patient completes activity. [place] assists only prior to or following the activity. 4-Supervision or Touching Assistance-helper provides verbal cues and/or touching/steadying and/or contact guard assistance as patient completes activity. Assistance may be provided throughout the activity or intermittently. 3-Partial/Moderate Assistance-helper does LESS THAN HALF the effort. [place] lifts, holds or supports trunk or limbs, but provides less than half the effort. 2-Substantial/Maximal Assistance-helper does MORE THAN HALF the effort. [place] lifts or holds trunk or limbs and provides more than half the effort. 7-Dhhajkxci-ojlemh does ALL the effort. Patient does none of the effort to complete the activity. Or, the assistance of 2 or more helpers is required for the patient to complete the activity. If activity was not attempted, code reason: 7-Patient Refused. 9-Not Applicable-not attempted and the patient did not perform the activity before the current illness, exacerbation or injury. 10-Not Attempted due to Environmental Limitations-(lack of equipment, weather restraints, etc.). 88-Not Attempted due to Medical Conditions or Safety Concerns. Bed Mobility: 6 Transfers (B,C,W/C): 6 Gait: 6 Indoor Mobility (Ambulation): Independent Stairs: Independent Prior Devices Use: None PT Evaluation-Current Subjective Patient agrees to PT. Pain Numeric Pain Scale: 5-Moderate Pain Location: Left Location Body Site: Knee Pain Description: Acute Objective Attachments: Buchanan Catheter ROM/Strength ROM Lower Extremities left knee flexion 30 degrees/0 degrees extension; right LE WFL Strength Lower Extremities left LE 3/5 grossly;right LE 4/5 grossly Integumentary/Posture Bladder Incontinence: Buchanan Cath Posture WFL Neuromuscular (Tone, Coordination, Reflexes) grossly intact Sensory Vision: Functional Hearing: Functional Transfers Lying to Sitting/Side of Bed(Q: 3 Sit to Stand (QC): 4 Chair/Hvt-dy-Qjvvy Xfer(QC): 4 Gait Mode of Locomotion: Walk Anticipated Mode of Locomotion: Walk Walk 10 feet (QC): 4 Walk 50 ft with 2 Turns(QC): 4 Walk 150 ft (QC): 4 Distance: 200' Gait Assistive Device: FWW Comments/Gait Description slow, step to, antalgic Balance Sitting Static: Normal Sitting Dynamic: Normal Standing Static: Fair Standing Dynamic: Fair Treatment left LE AAROM supine HS, SLR, AP, QS; seated LAQ x 15 reps Assessment/Needs Patient will benefit from skilled PT to address functional strength and mobility to improve current LOF to safely return to home at maximum LOF. Rehab Potential: Fair PT Group Home Goals Group Home Goals PT Group Home Goals Time Frame: Aug 22, 2023 Roll Left & Right (QC): 6 Sit to Lying (QC): 6 Lying-Sitting on Side/Bed(QC): 6 Sit to Stand (QC): 5 Chair/Leb-sf-Qkbhq Xfer(QC): 5 Toilet Transfer (QC): 5 Walk 10 feet (QC): 5 Walk 50ft with 2 Turns (QC): 5 Walk 150 ft (QC): 5 1 Step (curb) (QC): 4 4 Steps (QC): 4 12 Steps (QC): 4 PT Plan Problem List Problem List: Activity Tolerance, Functional Strength, Safety, Balance, Gait, Transfer, Bed Mobility, ROM Treatment/Plan Treatment Plan: Continue Plan of Care Treatment Plan: Bed Mobility, Education, Functional Activity [place], Functional Strength, Gait, Safety, Therapeutic Exercise, Transfers Treatment Duration: Aug 22, 2023 Frequency: 11 times per week Estimated Hrs Per Day: .5 hour per day Patient and/or Family Agrees t: Yes Time Time In: 700 Time Out: 725 DATE: Aug 11, 2023 Total Billed Treatment Time: 25 Total Billed Treatment 1 visit EVModC 12 min EX 13 min [place] MCCARTHY PT Aug 11, 2023 08:16
[2023-08-11] MEDS: ALLOPURINOL 100 MG TABLET PO SCH (08:53)
[2023-08-11] MEDS: amLODIPine 10 MG TABLET PO SCH (08:53)
[2023-08-11] MEDS: CALCITRIOL 0.25 MCG CAPSULE PO SCH (08:54)
[2023-08-11] MEDS: CLOPIDOGREL 75 MG TABLET PO SCH (08:55)
[2023-08-11] MEDS ORDERED: NON-FORMULARY MEDICATION 1 EA EA (Chlorthalidone 25 MG) PO SCH (09:00)
[2023-08-11] MEDS: POTASSIUM CHLORIDE 20 MEQ TABLET PO SCH ×3 (09:04→17:28)
[2023-08-11] MEDS: inSUlin ASPART 1 UNIT/0.01 ML (PER UNIT) SC SCH ×3 (09:04→17:29)
[2023-08-11] MEDS: MAGNESIUM OXIDE 400 MG TABLET PO SCH (09:04)
[2023-08-11] MEDS: DOCUSATE SODIUM 100 MG CAPSULE PO SCH ×2 (09:05→20:14)
[2023-08-11] MEDS: PANTOPRAZOLE 40 MG TABLET PO SCH ×2 (09:05→20:14)
[2023-08-11] MEDS: ASPIRIN enteric coated 81MG TABLET PO SCH (09:05)
[2023-08-11] MEDS: FUROSEMIDE 40 MG TABLET PO SCH (09:05)
[2023-08-11] MEDS: ALOGLIPTIN 12.5 MG PO SCH (09:06)
[2023-08-11] MEDS: GABAPENTIN 100 MG CAPSULE PO SCH ×4 (09:06→20:14)
[2023-08-11] MEDS: LOSARTAN 50 MG TABLET PO SCH (09:08)
--- NOTE | 2023-08-11 10:09 | Progress Note ---
Progress Note Progress Notes/Assess & Plan Date Seen 08/11/23 Time Seen by Provider: 10:09 Assessment & Plan Chief Complaint: Left total knee replacement This is a 77 year old male [place] who [facility], who presents following an uncomplicated left total knee replacement. He is experiencing some confusion and says his pain is uncontrolled. Patient says he was moving in the middle of the night and now has worse pain. Continue to monitor labs and blood pressure. Continue pain control. Evaluate cardiac murmur work-up. AMANDA GAN Aug 11, 2023 10:09
--- NOTE | 2023-08-11 10:16 | Progress Note ---
AMANDA GAN 08/11/23 1016: Subjective Date Seen by a Provider: Aug 11, 2023 Subjective/Events-last exam This is a 77 year old male [place] who is a patient of the [facility] and Dr Lujan, who presents following an uncomplicated left total knee replacement. He is experiencing some confusion and says his pain is uncontrolled. Patient says he was moving in the middle of the night and now has worse pain. Continue to monitor labs and blood pressure. Continue pain control. Evaluate cardiac murmur work-up. Focused Exam Sepsis Stage: Ruled Out Respiratory: Normal Breath Sounds, No Accessory Muscle Use Objective Exam Last Set of Vital Signs Vital Signs Date Time Temp Pulse Resp B/P (MAP) Pulse Ox O2 Delivery O2 Flow Rate FiO2 08/11/23 07:26 36.5 61 16 129/72 (91) 90 Room Air 08/10/23 20:41 2.00 Capillary Refill : Less Than 3 Seconds I&O Intake and Output 08/11/23 00:00 Intake Total 450 ml Output Total 950 ml Balance -500 ml Intake Oral 400 ml IV Total 50 ml Output Urine Total 950 ml Results Lab Laboratory Tests 08/10/23 14:21: Glucometer 183H 08/10/23 19:56: Glucometer 298H 08/11/23 05:30: Glucometer 167H 08/11/23 06:14: White Blood Count 9.3, Red Blood Count 4.46, Hemoglobin 11.6L, Hematocrit 37L, Mean Corpuscular Volume 83, Mean Corpuscular Hemoglobin 26, Mean Corpuscular Hemoglobin Concent 31L, Red Cell Distribution Width 17.4H, Platelet Count 179, Mean Platelet Volume 10.5, Immature Granulocyte % (Auto) 1, Neutrophils (%) (Auto) 74, Lymphocytes (%) (Auto) 10L, Monocytes (%) (Auto) 14H, Eosinophils (%) (Auto) 2, Basophils (%) (Auto) 1, Neutrophils # (Auto) 6.9, Lymphocytes # (Auto) 0.9L, Monocytes # (Auto) 1.3H, Eosinophils # (Auto) 0.1, Basophils # (Auto) 0.1, Immature Granulocyte # (Auto) 0.1, Sodium Level 141, Potassium Level 4.1, Chloride Level 105, Carbon Dioxide Level 27, Anion Gap 9, Blood Urea Nitrogen 22H, Creatinine 1.54H, Estimat Glomerular Filtration Rate 46, BUN/Creatinine Ratio 14, Glucose Level 173H, Calcium Level 8.2L, Corrected Calcium 8.8, Total Bilirubin 0.5, Aspartate Amino Transf (AST/SGOT) 20, Alanine Aminotransferase (ALT/SGPT) 17, Alkaline Phosphatase 65, Total Protein 5.4L, Albumin 3.3 Microbiology 08/03/23 MRSA Screen - Final, Complete MRSA not isolated Assessment/Plan Assessment/Plan Assess & Plan/Chief Complaint Assessment: Status post uncomplicated left total knee replacement Hypertension Peripheral Vascular Disease Cardiac murmur Hyperlipidemia Baseline confusion Cardiac Murmur Pain in left knee Plan: Supportive care Continue pain control Begin PT and OT EMELI LYNN DO 08/11/232051: Subjective Time Seen by a Provider: 10:00 Subjective/Events-last exam Patient doing really well Denies any pain currently at bedside No falls Objective Exam General: Alert, Oriented X3, Cooperative, No Acute Distress Lungs: Clear to Auscultation, Normal Air Movement Heart: Regular Rate, Normal S1, Normal S2, No Murmurs Psych/Mental Status: Mental Status NL, Mood NL Assessment/Plan Assessment/Plan Assess & Plan/Chief Complaint Pain control PT and OT Supervisory-Addendum Brief Verification & Attestation Participated in pt care: history, MDM, physical Personally performed: exam, history, MDM, supervision of care Care discussed with: Medical Student Procedures: n/a Results interpretation: Verified all documentation Verification and Attestation of Medical Student E/M Service A medical student performed and documented this service in my presence. I reviewed and verified all information documented by the medical student and made modifications to such information, when appropriate. I personally performed the physical exam and medical decision making. Emeli Lynn, Aug 11, 2023,20:51 AMANDA GAN Aug 11, 2023 10:16 EMELI LYNN DO Aug 11, 2023 20:52
--- NOTE | 2023-08-11 11:25 | Progress Note - Ortho ---
Progress Note Subjective Date of Exam 08/11/23 Chief Complaint POD #1 L TKA HPI/Events since last exam having difficulty with pain control, reasonable progress with therapy this AM Review of Systems - Allergies: Coded Allergies: lisinopril (Verified Adverse Reaction, Unknown, affects kidneys, 07/02/22) metformin (Verified Adverse Reaction, Unknown, affects kidneys, 07/02/22) Home Meds Active Scripts Insulin Glargine,Hum.rec.anlog (Lantus Solostar) 100 Unit/Ml (3 Ml) Insuln.pen, 30 UNIT SQ HS for 30 Days, #10 EA Prov:PRAVEEN ANDERSON MD 04/05/23 Insulin Aspart (Novolog Flexpen) 100 Unit/Ml (3 Ml) Solution, 10 UNITS SQ WM for 30 Days, #10 EA Prov:PRAVEEN ANDERSON MD 04/05/23 Reported Medications Losartan Potassium (Losartan Potassium) 50 Mg Tablet, 50 MG PO DAILY, TAB 12/03/22 Cyanocobalamin (Cyanocobalamin Injection) 1,000 Mcg/Ml Inj, 1000 MCG IM EVERY 3 WEEKS, EA 12/03/22 Testosterone Cypionate (Testosterone Cypionate) 200 Mg/Ml Vial, 200 MG IM EVERY 3 WEEKS, EA 12/03/22 Potassium Chloride (Klor-Con M10) 10 Meq Tab.er.prt, 20 MEQ PO TID, TAB TAKES 2 (10MEQ) TABS 12/03/22 Metoprolol Succinate (Metoprolol Succinate) 100 Mg Tab.er.24h, 50 MG PO 1800, TAB TAKES OF A 100MG TAB 12/03/22 Calcitriol (Calcitriol) 0.25 Mcg Capsule, 0.25 MCG PO DAILY, CAP 07/02/22 Furosemide (Furosemide) 40 Mg Tablet, 40 MG PO DAILY, TAB 07/02/22 Pantoprazole Sodium (Pantoprazole Sodium) 40 Mg Tablet.dr, 40 MG PO BID, TAB 04/24/21 Clopidogrel Bisulfate (Clopidogrel) 75 Mg Tablet, 75 MG PO DAILY, TAB 04/24/21 Metoprolol Succinate (Metoprolol Succinate) 100 Mg Tab.er.24h, 100 MG PO DAILY, TAB 04/24/21 Cholecalciferol (Vitamin D3) (Vitamin D3) 125 Mcg Capsule, 125 MCG PO DAILY, CAP 04/24/21 Aspirin (Aspirin EC) 81 Mg Tablet.dr, 81 MG PO DAILY, TAB 04/24/21 Amlodipine Besylate (Amlodipine Besylate) 10 Mg Tablet, 10 MG PO DAILY, TAB 04/18/20 Allopurinol (Allopurinol) 100 Mg Tablet, 100 MG PO DAILY, TAB 04/18/20 Alogliptin Benzoate (Alogliptin) 12.5 Mg Tablet, 12.5 MG PO DAILY, TAB 04/18/20 Chlorthalidone (Chlorthalidone) 25 Mg Tablet, 25 MG PO DAILY, TAB 04/18/20 Magnesium Oxide (Magnesium Oxide) 400 Mg Tablet, 400 MG PO DAILY, TAB 08/20/17 [place]-3 Fatty Acids/Fish Oil (Fish Oil 1,000 mg Softgel) 1 Each Capsule, 1000 MG PO DAILY, CAP 08/20/17 Tramadol HCl (Tramadol HCl) 50 Mg Tablet, 100 MG PO Q6H PRN for PAIN-MODERATE (5-7), TAB TAKES 2 (50MG) TABS 08/19/17 Gabapentin (Gabapentin) 100 Mg Capsule, 100 MG PO QID, CAP 08/19/17 Atorvastatin Calcium (Atorvastatin Calcium) 20 Mg Tablet, 20 MG PO HS, TAB 08/19/17 Objective Exam L Knee: Incision with some drainage, +DF of ankle, no s/s of DVT Vital Signs Vital Signs Date Time Temp Pulse Resp B/P (MAP) Pulse Ox O2 Delivery O2 Flow Rate FiO2 08/11/23 07:26 36.5 61 16 129/72 (91) 90 Room Air 08/11/23 04:00 37.3 65 16 149/69 (95) 92 Room Air 08/10/23 23:23 36.7 63 16 150/72 (98) 94 Room Air 08/10/23 20:41 Nasal Cannula 2.00 08/10/23 19:15 36.8 65 16 157/71 (99) 97 Nasal Cannula 3.00 3.00 08/10/23 15:46 36.4 66 18 171/77 (108) 91 Nasal Cannula 3.00 08/10/23 15:35 Nasal Cannula 3.00 08/10/23 13:50 36.6 18 148/88 (108) 93 Nasal Cannula 2.00 08/10/23 13:50 Nasal Cannula 2.00 08/10/23 13:40 Nasal Cannula 2.00 08/10/23 13:40 18 165/91 (115) 93 Nasal Cannula 2.00 08/10/23 13:30 OxyMask 3.00 08/10/23 13:30 18 145/89 (107) 97 OxyMask 3.00 08/10/23 13:22 OxyMask 6.00 08/10/23 13:20 18 141/94 (110) 96 OxyMask 6.00 08/10/23 13:15 OxyMask 6.00 08/10/23 13:10 18 175/95 (121) 94 OxyMask 6.00 08/10/23 13:05 OxyMask 6.00 08/10/23 13:00 18 172/81 (111) 97 OxyMask 6.00 08/10/23 13:00 OxyMask 6.00 08/10/23 12:50 18 112/63 (79) 100 OxyMask 6.00 08/10/23 12:50 OxyMask 6.00 08/10/23 12:43 OxyMask 6.00 08/10/23 12:43 36.4 16 105/56 (72) 96 OxyMask 6.00 I & O 08/11/23 07:00 Intake Total 550 ml Output Total 1425 ml Balance -875 ml Lab Results Laboratory Tests 08/10/23 14:21: Glucometer 183H 08/10/23 19:56: Glucometer 298H 08/11/23 05:30: Glucometer 167H 08/11/23 06:14: White Blood Count 9.3, Red Blood Count 4.46, Hemoglobin 11.6L, Hematocrit 37L, Mean Corpuscular Volume 83, Mean Corpuscular Hemoglobin 26, Mean Corpuscular Hemoglobin Concent 31L, Red Cell Distribution Width 17.4H, Platelet Count 179, Mean Platelet Volume 10.5, Immature Granulocyte % (Auto) 1, Neutrophils (%) (Auto) 74, Lymphocytes (%) (Auto) 10L, Monocytes (%) (Auto) 14H, Eosinophils (%) (Auto) 2, Basophils (%) (Auto) 1, Neutrophils # (Auto) 6.9, Lymphocytes # (Auto) 0.9L, Monocytes # (Auto) 1.3H, Eosinophils # (Auto) 0.1, Basophils # (Auto) 0.1, Immature Granulocyte # (Auto) 0.1, Sodium Level 141, Potassium Level 4.1, Chlori de Level 105, Carbon Dioxide Level 27, Anion Gap 9, Blood Urea Nitrogen 22H, Creatinine 1.54H, Estimat Glomerular Filtration Rate 46, BUN/Creatinine Ratio 14, Glucose Level 173H, Calcium Level 8.2L, Corrected Calcium 8.8, Total Bilirubin 0.5, Aspartate Amino Transf (AST/SGOT) 20, Alanine Aminotransferase (ALT/SGPT) 17, Alkaline Phosphatase 65, Total Protein 5.4L, Albumin 3.3 Microbiology 08/03/23 MRSA Screen - Final, Complete MRSA not isolated Imaging 2 views of the left knee dated 08/10/23 were reviewed from PACS and demonstrated left total knee arthroplasty with components in good position Assessment and Plan Assessment Left Knee Primary OA s/p TKA Problem List Left Knee Primary OA s/p TKA Plan PT/OT DVT prophylaxis rehab vs home with home health Final Diagonsis Left Knee Primary OA s/p TKA Level of the visit: Level 3 (global) HAKEEM VILLANUEVA MD Aug 11, 2023 11:25
[2023-08-11 11:38] VITALS: BP 163/75
--- NOTE | 2023-08-11 14:12 | Physical Therapy Daily Note ---
PT Daily Note-Current Subjective Patient agrees to PT. Pain Numeric Pain Scale: 8 Location: Left Location Body Site: Knee Pain Description: Acute Section J - Health Conditions 1. Rarely or not at all 2. Occasionally 3. Frequently 4. Almost constantly 8. Unable to answer Pain Effect on Sleep: 2 Pain Interference with Therapy: 3 Pain Interference w/Day-to-Day: 2 Transfers SCALE: Activities may be completed with or without assistive devices. 4-Mrtxvcadur-acczhup completes the activity by him/herself with no assistance from a helper. 5-Set-up or Clean-up Assistance-helper sets up or cleans up; patient completes activity. [place] assists only prior to or following the activity. 4-Supervision or Touching Assistance-helper provides verbal cues and/or touching/steadying and/or contact guard assistance as patient completes activity. Assistance may be provided throughout the activity or intermittently. 3-Partial/Moderate Assistance-helper does LESS THAN HALF the effort. [place] lifts, holds or supports trunk or limbs, but provides less than half the effort. 2-Substantial/Maximal Assistance-helper does MORE THAN HALF the effort. [place] lifts or holds trunk or limbs and provides more than half the effort. 8-Mlsvnjqib-sppjrw does ALL the effort. Patient does none of the effort to complete the activity. Or, the assistance of 2 or more helpers is required for the patient to complete the activity. If activity was not attempted, code reason: 7-Patient Refused. 9-Not Applicable-not attempted and the patient did not perform the activity before the current illness, exacerbation or injury. 10-Not Attempted due to Environmental Limitations-(lack of equipment, weather restraints, etc.). 88-Not Attempted due to Medical Conditions or Safety Concerns. Sit to Stand (QC): 4 Weight Bearing Right Lower Extremity: Right Full Weight Bearing Left Lower Extremity: Left Weight Bearing/Tolerated Gait Training Distance: 275' Walk 10 feet (QC): 5 Walk 50 ft with 2 Turns(QC): 5 Walk 150 ft (QC): 5 Gait Assistive Device: FWW steady reciprocal pattern Exercises Seated Therapy Exercises: Ankle pumps, Long arc quads, Hip flexion Seated Reps: 15 (x 2 sets bilaterally) Assessment Patient tolerated treatment well and remains up in recliner with lunch in situ. Plan dismissal to home tomorrow with spouse and home health. PT Fci Goals Fci Goals PT Fci Goals Time Frame: Aug 22, 2023 Roll Left & Right (QC): 6 Sit to Lying (QC): 6 Lying-Sitting on Side/Bed(QC): 6 Sit to Stand (QC): 5 Chair/Ptk-bp-Mvzur Xfer(QC): 5 Toilet Transfer (QC): 5 Walk 10 feet (QC): 5 Walk 50ft with 2 Turns (QC): 5 Walk 150 ft (QC): 5 1 Step (curb) (QC): 4 4 Steps (QC): 4 12 Steps (QC): 4 PT Plan Treatment/Plan Treatment Plan: Continue Plan of Care Treatment Plan: Bed Mobility, Education, Functional Activity [place], Functional Strength, Gait, Safety, Therapeutic Exercise, Transfers Treatment Duration: Aug 22, 2023 Frequency: 11 times per week Estimated Hrs Per Day: .5 hour per day Patient and/or Family Agrees t: Yes Time Time In: 1325 Time Out: 1348 DATE: Aug 11, 2023 Total Billed Treatment Time: 23 Total Billed Treatment 1 visit EX 9 min GT 14 min [place] MCCARTHY PT Aug 11, 2023 14:12
[2023-08-11] MEDS ORDERED: PIOG30TA71 PO (14:33)
[2023-08-11] MEDS ORDERED: B6/F1CAP PO (14:33)
[2023-08-11] MEDS ORDERED: INSU100I78 SQ (14:33)
[2023-08-11] MEDS ORDERED: INSU100I14 SQ ×2 (14:33)
--- NOTE | 2023-08-11 15:46 | Occ Therapy Progress Note ---
Therapy Progress Note OT ORDER RECEIVED, OT ATTEMPTED TWICE FOR EVALUATION, PATIENT REQUEST OT RETURN AT LATER TIME EACH ATTEMPT. OT TO CONTINUE ATTEMPT 08/12/23 PATRIZIA GALVAN OT Aug 11, 2023 15:46
[2023-08-11 15:57] VITALS: BP 127/64
[2023-08-11 19:46] VITALS: BP 158/72
[2023-08-11] MEDS: APIXABAN 2.5 MG TABLET PO SCH (20:14)
[2023-08-11] MEDS: inSUlin DETERMIR 1 UNIT/0.01 ML (CHARGE PER UNIT) SQ SCH (20:14)
[2023-08-11 23:40] VITALS: BP 154/74
[2023-08-12 03:32] VITALS: BP 168/85
[2023-08-12 05:38] LABS: BASOPHILS # (AUTO) 0.1 10^3/uL (0.0-0.1); BASOPHILS % (AUTO) 1 % (0-10); EOSINOPHILS # (AUTO) 0.1 10^3/uL (0.0-0.3); EOSINOPHILS % (AUTO) 1 % (0-10); HEMATOCRIT 35 % (40-54); HEMOGLOBIN 10.9 g/dL (13.3-17.7); LYMPHOCYTES # (AUTO) 0.9 10^3/uL (1.0-4.0); LYMPHOCYTES % (AUTO) 9 % (12-44); MEAN CORPUSCULAR HEMOGLOBIN 26 pg (25-34); MEAN CORPUSCULAR HGB CONC 31 g/dL (32-36); MEAN CORPUSCULAR VOLUME 83 fL (80-99); MEAN PLATELET VOLUME 10.8 fL (9.0-12.2); MONOCYTES # (AUTO) 1.3 10^3/uL (0.0-1.0); MONOCYTES % (AUTO) 14 % (0-12); NEUTROPHILS % (AUTO) 75 % (42-75); PLATELET COUNT 186 10^3/uL (130-400); WHITE BLOOD COUNT 9.4 10^3/uL (4.3-11.0)
[2023-08-12] MEDS: THERAPEUTIC MULTIVITAMIN W/MINERALS TABLET PO SCH (05:54)
[2023-08-12] MEDS: oxyCODONE IMMEDIATE RELEASE 5 MG TABLET PO PRN ×2 (05:54→10:37)
[2023-08-12 05:58] LABS: ALBUMIN 3.3 GM/DL (3.2-4.5); BILIRUBIN,TOTAL 0.6 MG/DL (0.1-1.0); CALCIUM 8.6 MG/DL (8.5-10.1); CREATININE SERUM 1.46 MG/DL (0.60-1.30); POTASSIUM 3.5 MMOL/L (3.6-5.0); TOTAL PROTEIN 5.7 GM/DL (6.4-8.2)
[2023-08-12 07:20] VITALS: BP 171/78
[2023-08-12] MEDS: PANTOPRAZOLE 40 MG TABLET PO SCH (08:27)
[2023-08-12] MEDS: LOSARTAN 50 MG TABLET PO SCH (08:27)
[2023-08-12] MEDS: GABAPENTIN 100 MG CAPSULE PO SCH ×2 (08:27→11:46)
[2023-08-12] MEDS: inSUlin ASPART 1 UNIT/0.01 ML (PER UNIT) SC SCH ×2 (08:27→11:45)
[2023-08-12] MEDS: DOCUSATE SODIUM 100 MG CAPSULE PO SCH (08:28)
[2023-08-12] MEDS: MAGNESIUM OXIDE 400 MG TABLET PO SCH (08:28)
[2023-08-12] MEDS: FUROSEMIDE 40 MG TABLET PO SCH (08:28)
[2023-08-12] MEDS: POTASSIUM CHLORIDE 20 MEQ TABLET PO SCH ×2 (08:28→11:45)
[2023-08-12] MEDS: APIXABAN 2.5 MG TABLET PO SCH (08:28)
[2023-08-12] MEDS: amLODIPine 10 MG TABLET PO SCH (08:30)
[2023-08-12] MEDS: CALCITRIOL 0.25 MCG CAPSULE PO SCH (08:31)
[2023-08-12] MEDS: ALLOPURINOL 100 MG TABLET PO SCH (08:31)
[2023-08-12] MEDS: ALOGLIPTIN 12.5 MG PO SCH (08:33)
[2023-08-12] MEDS: CLOPIDOGREL 75 MG TABLET PO SCH (08:35)
[2023-08-12] MEDS ORDERED: OXC5T PO (10:02)
[2023-08-12] MEDS ORDERED: APIX2.5T PO (10:02)
--- NOTE | 2023-08-12 10:07 | Discharge Summary ---
Discharge Summary Hospital Course Hospital Course Date of Admission: Admission Diagnosis : Left Knee Primary Osteoarthritis Family Physician/Provider: Sam Lujan DO Date of Discharge: 08/12/23 Discharge Diagnosis: [ Left Knee Primary Osteoarthritis s/p TKA] Hospital Course: [On 08/10/23, patient underwent left total knee arthroplasty. Tolerated the procedure well and was transferred to the regular floor. On the day of surgery, began mechanical DVT prophylaxis and started to work with therapy. On POD #1, made good progress with therapy and began chemical DVT prophylaxis. On POD #2, continued to make progress with therapy and home health therapy arrangements were made. Patient was ready for discharge home. ] Labs and Pending Lab Test: Laboratory Tests 08/11/23 11:36: Glucometer 151H 08/11/23 15:36: Glucometer 280H 08/11/23 19:11: Glucometer 261H 08/12/23 04:41: Glucometer 159H 08/12/23 05:08: White Blood Count 9.4, Red Blood Count 4.20L, Hemoglobin 10.9L, Hematocrit 35L, Mean Corpuscular Volume 83, Mean Corpuscular Hemoglobin 26, Mean Corpuscular Hemoglobin Concent 31L, Red Cell Distribution Width 17.8H, Platelet Count 186, Mean Platelet Volume 10.8, Immature Granulocyte % (Auto) 1, Neutrophils (%) (Auto) 75, Lymphocytes (%) (Auto) 9L, Monocytes (%) (Auto) 14H, Eosinophils (%) (Auto) 1, Basophils (%) (Auto) 1, Neutrophils # (Auto) 7.0, Lymphocytes # (Auto) 0.9L, Monocytes # (Auto) 1.3H, Eosinophils # (Auto) 0.1, Basophils # (Auto) 0.1, Immature Granulocyte # (Auto) 0.1, Sodium Level 142, Potassium Level 3.5L, Chloride Level 103, Carbon Dioxide Level 29, Anion Gap 10, Blood Urea Nitrogen 26H, Creatinine 1.46H, Estimat Glomerular Filtration Rate 49, BUN/Creatinine Ratio 18, Glucose Level 157H, Calcium Level 8.6, Corrected Calcium 9.2, Total Bilirubin 0.6, Aspartate Amino Transf (AST/SGOT) 17, Alanine Aminotransferase (ALT/SGPT) 12, Alkaline Phosphatase 67, Total Protein 5.7L, Albumin 3.3 Microbiology 08/03/23 MRSA Screen - Final, Complete MRSA not isolated Home Meds Active Oxyir Tablet (Oxycodone HCl) 5 Mg Tab 10 Mg PO Q4H PRN 7 Days Eliquis (Apixaban) 2.5 Mg Tablet 2.5 Mg PO BID 14 Days Reported Insulin Glargine Solostar (Insulin Glargine,Hum.rec.anlog) 100 Unit/Ml (3 Ml) Insuln.pen 50 Unit SQ HS Neuriva Plus Brain Perform Cap (B6/Folic/B12/Coffee/Phosphatid) 1.7MG-400 Capsule 1 Each PO DAILY Pioglitazone HCl 30 Mg Tablet 30 Mg PO DAILY Novolog Flexpen (Insulin Aspart) 100 Unit/Ml (3 Ml) Solution 35 Units SQ HS Novolog Flexpen (Insulin Aspart) 100 Unit/Ml (3 Ml) Solution 30 Units SQ AC Losartan Potassium 50 Mg Tablet 50 Mg PO DAILY Cyanocobalamin Injection (Cyanocobalamin) 1,000 Mcg/Ml Inj 1,000 Mcg IM EVERY 3 WEEKS Testosterone Cypionate 200 Mg/Ml Vial 200 Mg IM EVERY 3 WEEKS Klor-Con M10 (Potassium Chloride) 10 Meq Tab.er.prt 30 Meq PO BID TAKES 3 (10MEQ) TABS Metoprolol Succinate 100 Mg Tab.er.24h 50 Mg PO HS TAKES OF A 100MG TAB Calcitriol 0.25 Mcg Capsule 0.25 Mcg PO DAILY Furosemide 40 Mg Tablet 40 Mg PO DAILY Pantoprazole Sodium 40 Mg Tablet.dr 40 Mg PO BID Clopidogrel (Clopidogrel Bisulfate) 75 Mg Tablet 75 Mg PO DAILY Metoprolol Succinate 100 Mg Tab.er.24h 100 Mg PO DAILY Vitamin D3 (Cholecalciferol (Vitamin D3)) 125 Mcg Capsule 125 Mcg PO DAILY Aspirin EC (Aspirin) 81 Mg Tablet.dr 81 Mg PO DAILY Amlodipine Besylate 10 Mg Tablet 10 Mg PO DAILY Allopurinol 100 Mg Tablet 100 Mg PO DAILY Alogliptin (Alogliptin Benzoate) 12.5 Mg Tablet 12.5 Mg PO DAILY Chlorthalidone 25 Mg Tablet 25 Mg PO DAILY Magnesium Oxide 400 Mg Tablet 400 Mg PO DAILY Fish Oil 1,000 mg Softgel ([place]-3 Fatty Acids/Fish Oil) 1 Each Capsule 1,000 Mg PO DAILY Tramadol HCl 50 Mg Tablet 100 Mg PO Q6H PRN TAKES 2 (50MG) TABS Gabapentin 100 Mg Capsule 200 Mg PO BID TAKES 2 (100MG) CAPS Atorvastatin Calcium 20 Mg Tablet 20 Mg PO HS Assessment/Pt Instructions WBAT on left leg; use walker for assist. Dry dressing daily to incision site; do not get incision wet. Home health therapy for motion/strengthening/gait training. F/U with Dr. Lionel Barrios ~2 weeks after surgery. Discharge Instructions Discharge Diet: ADA Diet Discharge Physical Examination Vital Signs Vital Signs Date Time Temp Pulse Resp B/P (MAP) Pulse Ox O2 Delivery O2 Flow Rate FiO2 08/12/23 07:20 37.0 72 18 171/78 (109) 92 Room Air 08/10/23 20:41 2.00 Extremity: Other (L Knee: Incision C/D/I, +DF of ankle, no s/s of DVT) Allergies: Coded Allergies: lisinopril (Verified Adverse Reaction, Unknown, affects kidneys, 07/02/22) metformin (Verified Adverse Reaction, Unknown, affects kidneys, 07/02/22) Discharge Summary Date of Admission Date of Discharge LIONEL BARRIOS MD Aug 12, 2023 10:07
--- NOTE | 2023-08-12 10:08 | D/C HH Face to Face Order ---
D/C Face to Face Orders Instructions for Patient Via [facility], Patient Instructions/FollowUp: WBAT on left leg; use walker for assist. Dry dressing daily to incision site; do not get incision wet. Home health therapy for motion/strengthening/gait training. F/U with Dr. Lionel Barrios ~2 weeks after surgery. Physician to follow Patient: Lionel Barrios Discharge Diet for Home: ADA Diet Patient Data-Allergies,Ht & Wt Patient Allergies: Coded Allergies: lisinopril (Verified Adverse Reaction, Unknown, affects kidneys, 07/02/22) metformin (Verified Adverse Reaction, Unknown, affects kidneys, 07/02/22) Height (Feet): 5 Height (Inches): 4.00 Weight (Pounds): 152 Weight (Ounces): 0.0 Home Health Need/Face to Face Date of Face to Face: Aug 12, 2023 Clinical Findings: Muscle weakness, Pain with ambulation I have seen Pt [id number]: Yes Discharged To: Home Diagnosis/Conditions: Left Knee Primary OA s/p TKA Patient is Homebound due to: Muscle weakness, Pain w/ambulation Homebound Status Due to the above stated illness, injury or surgical procedure (medical condition or diagnosis) and associated clinical findings, the patient is homebound because of his/her inability to leave home except with aid of a supp ortive device and/or person AND leaving the home requires a considerable and taxing effort or is medically contraindicated. Pt req the following assistanc: Walker Home Health Nursing Orders Home Health Services Order: Physical Therapy-Evaluate & Treat Home Health Infusion Therapy Line Start Date: Aug 10, 2023 Therapy Orders Therapy Specific Orders: Gait training, Increase strength/endurance, Restore ROM Certify Stmt I certify that this patient is under my care and that I, a nurse practitioner or a physician; a trade sales assistant working with me, had a face to face encounter that - meets the physician face to face encounter requirements with this patient as dated. LOINEL BARRIOS MD Aug 12, 2023 10:08
[2023-08-12 11:09] VITALS: BP 166/76
--- NOTE | 2023-08-12 11:28 | Progress Note ---
Subjective Date Seen by a Provider: Aug 12, 2023 Subjective/Events-last exam Patient doing really well today. Says pain is very well controlled with the medication. is at bedside. Patient is in good spirits. Denies any nausea, vomitting, fevers, chillls. Denies any pain currently. Eager to go home soon. Patient says PT is going well- it's helped alot. Objective Exam Last Set of Vital Signs Vital Signs Date Time Temp Pulse Resp B/P (MAP) Pulse Ox O2 Delivery O2 Flow Rate FiO2 08/12/23 11:09 37.0 74 18 166/76 (106) 94 Room Air 08/10/23 20:41 2.00 Capillary Refill : Less Than 3 Seconds I&O Intake and Output 08/12/23 00:00 Intake Total 820 ml Output Total 675 ml Balance 145 ml Intake Oral 820 ml Output Urine Total 675 ml # Voids 6 General: Alert, Oriented X3, No Acute Distress HEENT: Atraumatic Neck: No JVD Lungs: Clear to Auscultation Heart: Regular Rate, Other (murmur) Abdomen: Normal Bowel Sounds, No Tenderness Extremities: No Clubbing, No Cyanosis Skin: No Rashes, No Breakdown Neuro: Normal Speech, Strength at 5/5 X4 Ext Results Lab Laboratory Tests 08/11/23 11:36: Glucometer 151H 08/11/23 15:36: Glucometer 280H 08/11/23 19:11: Glucometer 261H 08/12/23 04:41: Glucometer 159H 08/12/23 05:08: White Blood Count 9.4, Red Blood Count 4.20L, Hemoglobin 10.9L, Hematocrit 35L, Mean Corpuscular Volume 83, Mean Corpuscular Hemoglobin 26, Mean Corpuscular Hemoglobin Concent 31L, Red Cell Distribution Width 17.8H, Platelet Count 186, Mean Platelet Volume 10.8, Immature Granulocyte % (Auto) 1, Neutrophils (%) (Auto) 75, Lymphocytes (%) (Auto) 9L, Monocytes (%) (Auto) 14H, Eosinophils (%) (Auto) 1, Basophils (%) (Auto) 1, Neutrophils # (Auto) 7.0, Lymphocytes # (Auto) 0.9L, Monocytes # (Auto) 1.3H, Eosinophils # (Auto) 0.1, Basophils # (Auto) 0.1, Immature Granulocyte # (Auto) 0.1, Sodium Level 142, Potassium Level 3.5L, Chloride Level 103, Carbon Dioxide Level 29, Anion Gap 10, Blood Urea Nitrogen 26H, Creatinine 1.46H, Estimat Glomerular Filtration Rate 49, BUN/Creatinine Ratio 18, Glucose Level 157H, Calcium Level 8.6, Corrected Calcium 9.2, Total Bilirubin 0.6, Aspartate Amino Transf (AST/SGOT) 17, Alanine Aminotransferase (ALT/SGPT) 12, Alkaline Phosphatase 67, Total Protein 5.7L, Albumin 3.3 08/12/23 10:30: Glucometer 235H Microbiology 08/03/23 MRSA Screen - Final, Complete MRSA not isolated Assessment/Plan Assessment/Plan Assess & Plan/Chief Complaint Assessment: Status post uncomplicated left total knee replacement Hypertension Peripheral Vascular Disease Cardiac murmur Hyperlipidemia Baseline confusion Cardiac Murmur Pain in left knee Plan: Supportive care Continue pain control Continue PT and OT Prepare patient for discharge soon AMANDA GAN Aug 12, 2023 11:28
--- NOTE | 2023-08-12 11:32 | Occupational Therapy Eval ---
OT Evaluation-General/PLF Medical Diagnosis Admission Date Medical Diagnosis: left knee OA Onset Date: Aug 10, 2023 Therapy Diagnosis Therapy Diagnosis: weaknes Height/Weight Height (Feet): 5 Height (Inches): 4.00 Weight (Pounds): 152 Weight (Ounces): 0.0 Precautions Precautions/Isolations: Standard Precautions Weight Bear Status Weight Bearing Restriction: Weight Bearing/Tolerated Location Restriction: L LE Referral Physician: Sophie Referral Reason: Self Care, Evaluation/Treatment Medical History Pertinent Medical History: CAD, DM, HTN, PVD Reviewed History: Yes Social History Home: Single Level Current Living Status: Spouse Entry Into Home: Stairs With Railing Steps Into Home: 7 ADL-Prior Level of Function SCALE: Activities may be completed with or without assistive devices. 0-Dhccbdwwhk-ujmflux completes the activity by him/herself with no assistance from a helper. 5-Set-up or Clean-up Assistance-helper sets up or cleans up; patient completes activity. [place] assists only prior to or following the activity. 4-Supervision or Touching Assistance-helper provides verbal cues and/or t ouching/steadying and/or contact guard assistance as patient completes activity. Assistance may be provided throughout the activity or intermittently. 3-Partial/Moderate Assistance-helper does LESS THAN HALF the effort. [place] lifts, holds or supports trunk or limbs, but provides less than half the effort. 2-Substantial/Maximal Assistance-helper does MORE THAN HALF the effort. [place] lifts or holds trunk or limbs and provides more than half the effort. 5-Icfhybqgk-rvdfeu does ALL the effort. Patient does none of the effort to complete the activity. Or, the assistance of 2 or more helpers is required for the patient to complete the activity. If activity was not attempted, code reason: 7-Patient Refused. 9-Not Applicable-not attempted and the patient did not perform the activity before the current illness, exacerbation or injury. 10-Not Attempted due to Environmental Limitations-(lack of equipment, weather restraints, etc.). 88-Not Attempted due to Medical Conditions or Safety Concerns. Self Care: Independent Functional Cognition: Independent OT Current Status Subjective agreeable to OT, spouse present Pain Numeric Pain Scale: 4 Location: Left (seeping blood through bandage) Mental Status/Objective Patient Orientation: Person, Place, Time, Situation Current Glasses/Contacts: Yes Hand Dominance: Right Upper Extremity ROM BUE ROM WFLS Upper Extremity Coordination BUE WFLS Upper Extremity Sensation INTACT Upper Extremity Strength 4/5 ADL-Treatment Eating (QC): 6 Oral Hygiene (QC): 6 Shower/Bathe Self (QC): 7 Upper Body Dressing (QC): 6 Lower Body Dressing (QC): 4 On/Off Footwear (QC): 4 Toileting Hygiene (QC): 6 will assist at home Education OT Patient Education: Correct positioning, Instructions to caregiver, Modified ADL techniques, Progress toward Goal/Update tx plan, Purpose of tx/functional activities, Reviewed precautions, Rehab process, Safety issues, Transfer techniques, Use of adapted equipment Teaching Recipient: Patient, Family Teaching Methods: Demonstration, Discussion Response to Teaching: Verbalize Understanding, Return Demonstration, Reinforcement Needed OT Traveling Passenger Agent Goals Alf Goals 1=Demonstrate adherence to instructed precautions during ADL tasks. 2=Patient will verbalize/demonstrate understanding of assistive devices/modifications for ADL. 3=Patient will improve strength/tolerance for activity to enable patient to perform ADL's. OT Education/Plan Problem List/Assessment Assessment: Impaired Self-Care Skills Discharge Recommendations Plan/Recommendations: Discontinue OT (patient going home) Treatment Plan/Plan of Care Patient would benefit from OT for education, treatment and training to promote independence in ADL's, mobility, safety and/or upper extremity function for ADL's. Plan of Care: OTHER (EVAL ONLY) Treatment Duration: Aug 12, 2023 Frequency: 1 time per week Estimated Hrs Per Day: .25 hour per day Rehab Potential: Fair Time Start Time: 09:00 Stop Time: 09:21 DATE: Aug 12, 2023 Total Time Billed (hr/min): 21 Billed Treatment Time EVM 21 min PATRIZIA GALVAN OT Aug 12, 2023 11:32
--- NOTE | 2023-08-12 11:46 | Physical Therapy Daily Note ---
PT Daily Note-Current Subjective Patient sitting on the EOB post shower with nursing project coordinator in the room, agreeable to treatment. Pain Section J - Health Conditions 1. Rarely or not at all 2. Occasionally 3. Frequently 4. Almost constantly 8. Unable to answer Pain Effect on Sleep: 2 Pain Interference with Therapy: 3 Pain Interference w/Day-to-Day: 2 Transfers SCALE: Activities may be completed with or without assistive devices. 1-Gjsmvcdhxi-mqbstlg completes the activity by him/herself with no assistance from a helper. 5-Set-up or Clean-up Assistance-helper sets up or cleans up; patient completes activity. [place] assists only prior to or following the activity. 4-Supervision or Touching Assistance-helper provides verbal cues and/or touching/steadying and/or contact guard assistance as patient completes activity. Assistance may be provided throughout the activity or intermittently. 3-Partial/Moderate Assistance-helper does LESS THAN HALF the effort. [place] lifts, holds or supports trunk or limbs, but provides less than half the effort. 2-Substantial/Maximal Assistance-helper does MORE THAN HALF the effort. [place] lifts or holds trunk or limbs and provides more than half the effort. 8-[place] does ALL the effort. Patient does none of the effort to complete the activity. Or, the assistance of 2 or more helpers is required for the patient to complete the activity. If activity was not attempted, code reason: 7-Patient Refused. 9-Not Applicable-not attempted and the patient did not perform the activity before the current illness, exacerbation or injury. 10-Not Attempted due to Environmental Limitations-(lack of equipment, weather restraints, etc.). 88-Not Attempted due to Medical Conditions or Safety Concerns. Roll Left & Right (QC): 3 Sit to Lying (QC): 3 Lying to Sitting/Side of Bed(Q: 3 Sit to Stand (QC): 3 Weight Bearing Right Lower Extremity: Right Full Weight Bearing Left Lower Extremity: Left Weight Bearing/Tolerated Gait Training Does the Patient Walk?: Yes Distance: 160' Walk 10 feet (QC): 4 Walk 50 ft with 2 Turns(QC): 4 Walk 150 ft (QC): 4 Gait Persons Needed: 1 Gait Assistive Device: FWW Assessment Current Status: Fair Progress Patient very slow in his movements, even those not related to the left LE. Patient performs all bed mobility and transfers with SBA. Patient ambulates 160 feet with FWW, with Min a as patients right knee gives out on 2 occasions. Patient in chair post treatment with all needs met, nursing notified, call light in hand. PT Senior Reactor Operator Goals Fdc Goals PT Fdc Goals Time Frame: Aug 22, 2023 Roll Left & Right (QC): 6 Sit to Lying (QC): 6 Lying-Sitting on Side/Bed(QC): 6 Sit to Stand (QC): 5 Chair/Ane-dy-Mlsje Xfer(QC): 5 Toilet Transfer (QC): 5 Walk 10 feet (QC): 5 Walk 50ft with 2 Turns (QC): 5 Walk 150 ft (QC): 5 1 Step (curb) (QC): 4 4 Steps (QC): 4 12 Steps (QC): 4 PT Plan Treatment/Plan Treatment Plan: Continue Plan of Care Treatment Plan: Bed Mobility, Education, Functional Activity [place], Functional Strength, Gait, Safety, Therapeutic Exercise, Transfers Treatment Duration: Aug 22, 2023 Frequency: 11 times per week Estimated Hrs Per Day: .5 hour per day Patient and/or Family Agrees t: Yes Safety Risks/Education Patient Education: Gait Training, Transfer Techniques Teaching Recipient: Patient Teaching Methods: Demonstration, Discussion Response to Teaching: Verbalize Understanding, Return Demonstration Time Time In: 1000 Time Out: 1025 DATE: Aug 12, 2023 Total Billed Treatment Time: 25 Total Billed Treatment Visit, GT (2) DENISHA BRAVO PT Aug 12, 2023 11:45
[2023-08-12 13:35] VITALS: BP 166/76
== END 2023-08-12 13:35 | disposition home health service (06) ==
LOC: SDC 07:58 → 4TH 13:50 → SDC 08-12 13:35
PROVIDERS: ATTEND Orthopaedic Surgery
DX: M17.12 Unilateral primary osteoarthritis, left knee (principal); I12.9 Hypertensive chronic kidney disease with stage 1 through stage 4 chronic kidney disease, or unspecified chronic kidney disease; E11.22 Type 2 diabetes mellitus with diabetic chronic kidney disease; N18.30 Chronic kidney disease, stage 3 unspecified; E11.51 Type 2 diabetes mellitus with diabetic peripheral angiopathy without gangrene; R01.1 Cardiac murmur, unspecified; E78.5 Hyperlipidemia, unspecified; R41.0 Disorientation, unspecified; Z79.4 Long term (current) use of insulin; Z79.899 Other long term (current) drug therapy; Z87.891 Personal history of nicotine dependence; Z95.0 Presence of cardiac pacemaker
CPT/HCPCS: 36415; 73560; 73700; 80053; 82947; 85025; 87081; 93005; 94664

== ENCOUNTER 2023-08-18 14:08 | Inpatient (IN) | payer OTHER ==
[~2023-08-18] VITALS: Ht 162.5 cm; Wt 87.1 kg
[~2023-08-18 14:08] MED LIST changes: +APIX2.5T PO; +B6/F1CAP PO; +INSU100I78 SQ; +OXC5T PO; +PIOG30TA71 PO
[2023-08-18 14:34] LABS: BASOPHILS # (AUTO) 0.1 10^3/uL (0.0-0.1); BASOPHILS % (AUTO) 1 % (0-10); EOSINOPHILS # (AUTO) 0.3 10^3/uL (0.0-0.3); EOSINOPHILS % (AUTO) 2 % (0-10); HEMATOCRIT 35 % (40-54); HEMOGLOBIN 10.5 g/dL (13.3-17.7); LYMPHOCYTES # (AUTO) 1.2 10^3/uL (1.0-4.0); LYMPHOCYTES % (AUTO) 8 % (12-44); MEAN CORPUSCULAR HEMOGLOBIN 26 pg (25-34); MEAN CORPUSCULAR HGB CONC 30 g/dL (32-36); MEAN CORPUSCULAR VOLUME 87 fL (80-99); MEAN PLATELET VOLUME 11.3 fL (9.0-12.2); MONOCYTES # (AUTO) 1.2 10^3/uL (0.0-1.0); MONOCYTES % (AUTO) 8 % (0-12); NEUTROPHILS # (AUTO) 12.3 10^3/uL (1.8-7.8); NEUTROPHILS % (AUTO) 81 % (42-75); PLATELET COUNT 288 10^3/uL (130-400); WHITE BLOOD COUNT 15.3 10^3/uL (4.3-11.0)
--- NOTE | 2023-08-18 14:34 | ED General ---
General Chief Complaint: Lower Extremity Stated Complaint: WEAKNESS Nursing Triage Note: PT TO RM 7 BY [facility] WITH CC OF INCREASED WEAKNESS AND INCREASED REDDNESS/SWELLING OF L KNEE. EMS STATES PT RECENT TOTAL KNEE SURGERY ON 08/11 AND DISCHARGED ON 08/12. PT STATES HIS HAS BEEN DOING DRESSING CHANGES SINCE DISCHARGE. NOTED REDDNESS AND SWELLING TO L LEG AND BLOOD SOAKED DRESSING TO L KNEE. PT A&OX4 Source of Information: Patient, EMS, Old Records Exam Limitations: No Limitations History of Present Illness Date Seen by Provider: Aug 18, 2023 Time Seen by Provider: 14:15 Initial Comments This 77-year-old gentleman presents to the emergency room via EMS on postoperative day #8 after left total knee replacement performed by Dr. Villanueva. He has had functional decline at home since being discharged. He is not able to independently ambulate. He has had increasing swelling, erythema, and pain of the left lower extremity since surgery. The area of erythema is not contiguous with his incision. The boundaries of the erythematous region are about 2 cm distal to the knee incision and continue onward toward the foot. There are at least 3 shallow ulcerations of the anterior aspect of the left lower leg. Patient reports that those ulcerations were present prior to his surgery. His states they were not present. Patient was started on Eliquis 2.5 mg twice daily after surgery for DVT prophylaxis. Patient is afebrile at this time. There is bloody weeping coming from the distal aspect of the incision. Dr. VILLANUEVA was consulted by phone early in the care of this patient. He reports patient did not qualify for inpatient or rehab placement after surgery. He will see the patient in consultation. Allergies and Home Medications Allergies Coded Allergies: lisinopril (Verified Adverse Reaction, Unknown, affects kidneys, 07/02/22) metformin (Verified Adverse Reaction, Unknown, affects kidneys, 07/02/22) Patient Home Medication List Home Medication List Reviewed: Yes Allopurinol (Allopurinol) 100 Mg Tablet, 100 MG PO DAILY, (Reported) Entered as Reported by: BERTIN BRADSHAW on 04/18/20 1508 Alogliptin Benzoate (Alogliptin) 12.5 Mg Tablet, 12.5 MG PO DAILY, (Reported) Entered as Reported by: KATIE RUTH on 04/18/20 1016 Amlodipine Besylate (Amlodipine Besylate) 10 Mg Tablet, 10 MG PO DAILY, (Reported) Entered as Reported by: BERTIN BRADSHAW on 04/18/20 1508 Apixaban (Eliquis) 2.5 Mg Tablet, 2.5 MG PO BID Prescribed by: HAKEEM VILLANUEVA MD on 08/12/23 1002 Atorvastatin Calcium (Atorvastatin Calcium) 20 Mg Tablet, 20 MG PO HS, (Reported) Entered as Reported by: MIS PARSONS on 08/19/17 1406 B6/Folic/B12/Coffee/Phosphatid (Neuriva Plus Brain Perform Cap) 1.7MG-400 Capsule, 1 EACH PO DAILY, (Reported) Entered as Reported by: BERTNI BRADSHAW on 08/11/23 1433 Calcitriol (Calcitriol) 0.25 Mcg Capsule, 0.25 MCG PO DAILY, (Reported) Entered as Reported by: ESPINOZA BRYAN on 07/02/22 1137 Chlorthalidone (Chlorthalidone) 25 Mg Tablet, 25 MG PO DAILY, (Reported) Entered as Reported by: KATIE RUTH on 04/18/20 1016 Cholecalciferol (Vitamin D3) (Vitamin D3) 125 Mcg Capsule, 125 MCG PO DAILY, (Reported) Entered as Reported by: BERTIN BRADSHAW on 04/24/21 1045 Clopidogrel Bisulfate (Clopidogrel) 75 Mg Tablet, 75 MG PO DAILY, (Reported) Entered as Reported by: BERTIN BRADSHAW on 04/24/21 1045 Cyanocobalamin (Cyanocobalamin Injection) 1,000 Mcg/Ml Inj, 1,000 MCG IM EVERY 3 WEEKS, (Reported) Entered as Reported by: BERTIN BRADSHAW on 12/03/22 1229 Furosemide (Furosemide) 40 Mg Tablet, 40 MG PO DAILY, (Reported) Entered as Reported by: ESPINOZA BRYAN on 07/02/22 1137 Gabapentin (Gabapentin) 100 Mg Capsule, 200 MG PO BID, (Reported) Entered as Reported by: MIS PARSONS on 08/19/17 1406 Insulin Aspart (Novolog Flexpen) 100 Unit/Ml (3 Ml) Solution, 30 UNITS SQ AC, (Reported) Entered as Reported by: BERTIN BRADSHAW on 08/11/23 1433 Insulin Aspart (Novolog Flexpen) 100 Unit/Ml (3 Ml) Solution, 35 UNITS SQ HS, (Reported) Entered as Reported by: BERTIN BRADSHAW on 08/11/23 1433 Insulin Glargine,Hum.rec.anlog (Insulin Glargine Solostar) 100 Unit/Ml (3 Ml) Insuln.pen, 50 UNIT SQ HS, (Reported) Entered as Reported by: BERTIN BRADSHAW on 08/11/23 1433 Losartan Potassium (Losartan Potassium) 50 Mg Tablet, 50 MG PO DAILY, (Reported) Entered as Reported by: BERTIN BRADSHAW on 12/03/22 1500 Magnesium Oxide (Magnesium Oxide) 400 Mg Tablet, 400 MG PO DAILY, (Reported) Entered as Reported by: MIS PARSONS on 08/20/17 0848 Metoprolol Succinate (Metoprolol Succinate) 100 Mg Tab.er.24h, 100 MG PO DAILY, (Reported) Entered as Reported by: BERTIN BRADSHAW on 04/24/21 1045 Metoprolol Succinate (Metoprolol Succinate) 100 Mg Tab.er.24h, 50 MG PO HS, (Reported) Entered as Reported by: BERTIN BRADSHAW on 12/03/22 1224 Trenary-3 Fatty Acids/Fish Oil (Fish Oil 1,000 mg Softgel) 1 Each Capsule, 1,000 MG PO DAILY, (Reported) Entered as Reported by: MIS PARSONS on 08/20/17 0844 Oxycodone Hcl (Oxyir Tablet) 5 Mg Tab, 10 MG PO Q4H PRN for PAIN-SEVERE (8-10) Prescribed by: HAKEEM VILLANUEVA MD on 08/12/23 1003 Pantoprazole Sodium (Pantoprazole Sodium) 40 Mg Tablet.dr, 40 MG PO BID, (Reported) Entered as Reported by: BERTIN BRADSHAW on 04/24/21 1049 Pioglitazone HCl (Pioglitazone HCl) 30 Mg Tablet, 30 MG PO DAILY, (Reported) Entered as Reported by: BERTIN BRADSHAW on 08/11/23 1433 Potassium Chloride (Klor-Con M10) 10 Meq Tab.er.prt, 30 MEQ PO BID, (Reported) Entered as Reported by: BERTIN BRADSHAW on 12/03/22 1229 Testosterone Cypionate (Testosterone Cypionate) 200 Mg/Ml Vial, 200 MG IM EVERY 3 WEEKS, (Reported) Entered as Reported by: BERTIN BRADSHAW on 12/03/22 1229 Discontinued Medications Aspirin (Aspirin EC) 81 Mg Tablet.dr, 81 MG PO DAILY, (Reported) Entered as Reported by: BERTIN BRADSHAW on 04/24/21 1045 Insulin Aspart (Novolog Flexpen) 100 Unit/Ml (3 Ml) Solution, 10 UNITS SQ WM Discontinued Reason: No Longer Taking Prescribed by: PRAVEEN ANDERSON on 04/05/23 1601 Insulin Glargine,Hum.rec.anlog (Lantus Solostar) 100 Unit/Ml (3 Ml) Insuln.pen, 30 UNIT SQ HS Discontinued Reason: Duplicate Order Prescribed by: PRAVEEN ANDERSON on 04/05/23 1601 Tramadol HCl (Tramadol HCl) 50 Mg Tablet, 100 MG PO Q6H PRN for PAIN-MODERATE (5-7), (Reported) Entered as Reported by: MIS PARSONS on 08/19/17 1442 Review of Systems Review of Systems Constitutional: see HPI, weakness EENTM: no symptoms reported Respiratory: no symptoms reported Cardiovascular: no symptoms reported Gastrointestinal: no symptoms reported Genitourinary: no symptoms reported Musculoskeletal: see HPI Skin: see HPI Psychiatric/Neurological: No Symptoms Reported Hematologic/Lymphatic: No Symptoms Reported Past Uczqdhs-Dkuowe-Necjip Hx Patient Social History Tobacco Use?: No Substance use?: No Alcohol Use?: No Immunizations Up To Date Tetanus Booster (TDap): Unknown First/Initial COVID19 Vaccinat: 2020 Second COVID19 Vaccination Aime: 2020 Third COVID19 Vaccination Date: 2020 Seasonal Allergies Seasonal Allergies: Yes Past Medical History Surgery/Hospitalization HX: foot, knee, shoulder, back sx HTN, CKD STAGE 3, DM Surgeries: Yes (Pharyngectomy/uvulectomy) Abdominal, Coronary Stent, Eye Surgery, Joint Replacement (Left knee), Orthopedic, Pacemaker, Tonsillectomy, Vascular Surgery Respiratory: Yes Sleep Apnea Currently Using CPAP: No Cardiac: Yes Coronary Artery Disease, High Cholesterol, Hypertension, Peripheral Vascular, Valvular Heart Disease Neurological: Yes (Passing out April 2023) TIA Reproductive Disorders: No Sexually Transmitted Disease: No Genitourinary: Yes Renal Failure (Chronic kidney disease) Gastrointestinal: Yes Gastroesophageal Reflux, Irritable Bowel Musculoskeletal: Yes Arthritis, Chronic Back Pain, Fractures Endocrine: Yes Diabetes, Insulin dep HEENT: Yes Cataract 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 Did You Recieve Any Treatments: Yes What Type of Treatment Did You: Surgical Intervention Psychosocial: No Integumentary: Yes (LOWER LEFT ANTERIOR LEG/ANKLE AREA REDDENED) Psoriasis Blood Disorders: No Adverse Reaction/Blood Tranf: No Family Medical History Family history: Diabetes mellitus 19 MOTHER G8 SISTER Heart disease G8 BROTHER UNCLE Heart Disease, Diabetes Physical Exam Vital Signs Vital Signs - First Documented 08/18/23 14:11 Temp 37.0 Pulse 70 Resp 18 B/P (MAP) 155/80 (105) Pulse Ox 92 O2 Delivery Room Air Capillary Refill : Less Than 3 Seconds Height, Weight, BMI Height: 5'4.00" Weight: 152lbs. 0.0oz. [id number]; 32.00 BMI Method:Stated General Appearance: No Apparent Distress, WD/WN HEENT: Normal ENT Inspection Neck: Normal Inspection Respiratory: No Accessory Muscle Use, No Respiratory Distress, Wheezing (Slight) Cardiovascular: Regular Rate, Rhythm, No Murmur, Other (Left lower extremity edema) Gastrointestinal: Non Tender, Soft Extremity: Other (Left knee incision clean, dry, and intact with some minor bloody oozing coming from the distal aspect of the incision. There is scant erythema as expected for this stage of postoperative healing. There is bright red blanching warm erythema starting about 2 cm distal to the incision and extending down into the foot. There are at least 3 shallow ulcerations in the center of this area that have dried honey crusted appearance. Pitting edema in the foot and distal lower leg is marked. Capillary refill is 4 seconds or less in the toes. He retains movement and sensation in the toes) Neurologic/Psychiatric: Alert, Oriented x3 Skin: Normal Color, Warm/Dry, Other (See above) Focused Exam Lactate Level 08/18/23 14:20: Lactic Acid Level 1.20 Lactic Acid Level Laboratory Tests Test 08/18/23 14:20 Lactic Acid Level 1.20 MMOL/L (0.50-2.00) Progress/Results/Core Measures Suspected Sepsis SIRS Temperature: Pulse: 70 Respiratory Rate: 18 Laboratory Tests 08/18/23 14:20: White Blood Count 15.3H Blood Pressure 155 /80 Mean: 105 08/18/23 14:20: Lactic Acid Level 1.20 Laboratory Tests 08/18/23 14:20: Creatinine 1.70H, INR Comment 1.2, Platelet Count 288, Total Bilirubin 1.1H Results/Orders Lab Results Laboratory Tests Test 08/18/23 14:20 08/18/23 14:49 Range/Units White Blood Count 15.3 H 4.3-11.0 10^3/uL Red Blood Count 4.03 L 4.30-5.52 10^6/uL Hemoglobin 10.5 L 13.3-17.7 g/dL Hematocrit 35 L 40-54 % Mean Corpuscular Volume 87 80-99 fL Mean Corpuscular Hemoglobin 26 25-34 pg Mean Corpuscular Hemoglobin Concent 30 L 32-36 g/dL Red Cell Distribution Width 18.6 H 10.0-14.5 % Platelet Count 288 130-400 10^3/uL Mean Platelet Volume 11.3 9.0-12.2 fL Immature Granulocyte % (Auto) 1 % Neutrophils (%) (Auto) 81 H 42-75 % Lymphocytes (%) (Auto) 8 L 12-44 % Monocytes (%) (Auto) 8 0-12 % Eosinophils (%) (Auto) 2 0-10 % Basophils (%) (Auto) 1 0-10 % Neutrophils # (Auto) 12.3 H 1.8-7.8 10^3/uL Lymphocytes # (Auto) 1.2 1.0-4.0 10^3/uL Monocytes # (Auto) 1.2 H 0.0-1.0 10^3/uL Eosinophils # (Auto) 0.3 0.0-0.3 10^3/uL Basophils # (Auto) 0.1 0.0-0.1 10^3/uL Immature Granulocyte # (Auto) 0.2 H 0.0-0.1 10^3/uL Neutrophils % (Manual) 80 % Lymphocytes % (Manual) 12 % Monocytes % (Manual) 6 % Eosinophils % (Manual) 1 % Band Neutrophils 1 % Nucleated Red Blood Cells 1 Polychromasia SLIGHT Poikilocytosis SLIGHT Anisocytosis SLIGHT Tear Drop Cells SLIGHT Elliptocytes SLIGHT Prothrombin Time 15.7 H 12.2-14.7 SEC INR Comment 1.2 0.8-1.4 Activated Partial Thromboplast Time 35 24-35 SEC Sodium Level 136 135-145 MMOL/L Potassium Level 4.8 3.6-5.0 MMOL/L Chloride Level 101 98-107 MMOL/L Carbon Dioxide Level 23 21-32 MMOL/L Anion Gap 12 5-14 MMOL/L Blood Urea Nitrogen 44 H 7-18 MG/DL Creatinine 1.70 H 0.60-1.30 MG/DL Estimat Glomerular Filtration Rate 41 BUN/Creatinine Ratio 26 Glucose Level 128 H 70-105 MG/DL Lactic Acid Level 1.20 0.50-2.00 MMOL/L Calcium Level 9.7 8.5-10.1 MG/DL Corrected Calcium 10.1 8.5-10.1 MG/DL Total Bilirubin 1.1 H 0.1-1.0 MG/DL Aspartate Amino Transf (AST/SGOT) 39 H 5-34 U/L Alanine Aminotransferase (ALT/SGPT) 23 0-55 U/L Alkaline Phosphatase 115 40-136 U/L C-Reactive Protein High Sensitivity 21.67 H 0.00-0.50 MG/DL Total Protein 7.0 6.4-8.2 GM/DL Albumin 3.5 3.2-4.5 GM/DL Urine Color YELLOW Urine Clarity CLEAR Urine pH 5.5 5-9 Urine Specific [place] 1.015 L 1.016-1.022 Urine Protein TRACE H NEGATIVE Urine Glucose (UA) NEGATIVE NEGATIVE Urine Ketones NEGATIVE NEGATIVE Urine Nitrite NEGATIVE NEGATIVE Urine Bilirubin NEGATIVE NEGATIVE Urine Urobilinogen 1.0 < = 1.0 MG/DL Urine Leukocyte Esterase NEGATIVE NEGATIVE Urine RBC (Auto) NEGATIVE NEGATIVE Urine RBC 0-2 /HPF Urine WBC NONE /HPF Urine Squamous Epithelial Cells 0-2 /HPF Urine Crystals NONE /LPF Urine Bacteria TRACE /HPF Urine Casts NONE /LPF Urine Mucus SMALL H /LPF Urine Culture Indicated CULTURE PENDING My Orders Orders - JERI DEVLIN MD Cbc And Automated Diff (08/18/23 14:23) Comprehensive Metabolic Panel (08/18/23 14:23) Hs C Reactive Protein (08/18/23 14:23) Chest 1 View, Ap/Pa Only (08/18/23 14:23) Blood Culture (08/18/23 14:23) Sputum Culture (08/18/23 14:23) Urinalysis (08/18/23 14:23) Urine Culture (08/18/23 14:23) Protime With Inr (08/18/23 14:23) Partial Thromboplastin Time (08/18/23 14:23) Ed Iv/Invasive Line Start (08/18/23 14:23) Vital Signs Adult Sepsis Patie Q15M (08/18/23 14:23) Remove Rings In Anticipation O (08/18/23:) Lactic Acid Analyzer (08/18/23:) Tibia/Fibula, Left, 2 Views (08/18/23 14:23) Foot, Left, 2 View (08/18/23 14:23) Us Venous Lower Ext Lt (08/18/23 14:23) Manual Differential (08/18/23 14:20) Fentanyl Injection (Fentanyl Injection (08/18/23 15:00) Oxycodone/Apap 5/325mg Tablet (Oxycodon (08/18/23 16:00) Ceftriaxone Iv/Im (Ceftriaxone Iv/Im) (08/18/23 16:09) Ed Admission (Communication) (08/18/23 16:09) Medications Given in ED Current Medications Medications Dose Ordered Sig/Naomi Route Start Time Stop Time Status Last Admin Dose Admin Fentanyl Citrate 50 mcg ONCE ONCE IVP 08/18/23 15:00 08/18/23 15:01 DC 08/18/23 14:53 50 MCG Oxycodone/ Acetaminophen 1 tab ONCE ONCE PO 08/18/23 16:00 08/18/23 16:01 DC 08/18/23 16:06 1 TAB Vital Signs/I&O 08/18/23 14:11 Temp 37.0 Pulse 70 Resp 18 B/P (MAP) 155/80 (105) Pulse Ox 92 O2 Delivery Room Air Capillary Refill : Less Than 3 Seconds Blood Pressure Mean: 105 Progress Note : Progress Note Patient was interviewed and examined on arrival. Report was received from EMS. Ultrasound of the left leg revealed no DVT. X-rays of the left tib-fib and foot were unremarkable for fractures or osteomyelitis. Labs were obtained, reviewed, and interpreted by me. WBC was elevated at 15.3. Hemoglobin was mildly low at 10.5. Platelets were normal at 288. Lactic acid was normal at 1.2. Coag panel was negative. Creatinine was slightly above baseline at 1.70. BUN was elevated at 44. Urinalysis was unremarkable. Pain was treated with fentanyl and oxycodone. Antibiotic therapy was initially provided with Rocephin and vancomycin. Per discussion with Dr. Anderson, hospitalist, antibiotic treatment will be continued with Zosyn and vancomycin. Dr. Anderson accepts admission. Patient is agreeable to admission. Diagnostic Imaging Diagonstic Imaging: Ultrasound Plain Films/CT/US/NM/MRI: leg Comments NAME: SIMI COVARRUBIAS [facility] REC#: [id number] PT STATUS: REG ER : 1945 PHYSICIAN: JERI DEVLIN MD ADMIT DATE: 08/18/23/ER Draft Date of Exam:08/18/23 US VENOUS LOWER EXT LT Procedure: US left lower extremity venous. Technique: Multiple real-time grayscale images were obtained over the left lower extremity in various projections. Additional duplex Doppler and color Doppler images were also obtained. Date: August 18, 2023. Indication: 77-year-old male, left lower extremity knee redness and swelling. Comparison: None. Findings: The left common femoral vein, left superficial femoral vein, and left popliteal vein are all compressible with normal blood flow and response to augmentation. The imaged portions of the left greater saphenous vein and deep femoral vein are patent. The left posterior tibial and peroneal veins are patent. Impression: 1. Negative for left lower extremity deep venous thrombosis. Dictated on workstation # [id number] Dict: 08/18/23 1531 Trans: 08/18/23 1534 CV [id number] Interpreted by: SAVANNA CELESTE MD Diagonstic Imaging: Xray Plain Films/CT/US/NM/MRI: leg Comments NAME: SIMI COVARRUBIAS [facility] REC#: [id number] PT STATUS: ADM IN : 1945 PHYSICIAN: JERI DEVLIN MD ADMIT DATE: 08/18/23/4TH Signed Date of Exam:08/18/23 TIBIA/FIBULA, LEFT, 2 VIEWS INDICATION: Left leg pain. AP and lateral views of the left tibia and fibula are obtained. FINDINGS: There is a well-aligned left knee prosthesis. There is no sign of fracture or device loosening. There is no acute bony abnormality. There are vascular calcifications. IMPRESSION: No acute bony abnormality of the left tibia and fibula. Well-aligned left knee prosthesis. Dictated by: Dictated on workstation # [id number] Dict: 08/18/23 155 Trans: 08/18/231657 [id number] Interpreted by: DANTE FERNANDEZ MD Electronically signed by: DANTE FERNANDEZ MD 08/18/23 1658 Diagonstic Imaging: Xray Plain Films/CT/US/NM/MRI: other (Left foot) Comments NAME: SIMI COVARRUBIAS [facility] REC#: [id number] PT STATUS: REG ER : 1945 PHYSICIAN: JERI DEVLIN MD ADMIT DATE: 08/18/23/ER Signed Date of Exam:08/18/23 FOOT, LEFT, 2 VIEW INDICATION: Left foot pain. AP and lateral views of the left foot are obtained. FINDINGS: No acute fracture is seen. There is postsurgical change with fixation screw in the distal aspect of the second metatarsal. There is degenerative change of the first MTP joint. There are vascular calcifications noted. IMPRESSION: Chronic findings as above with no acute abnormality of the left foot. Dictated by: Dictated on workstation # [id number] Dict: 08/18/231549 Trans: 08/18/231553 [id number] Interpreted by: DANTE FERNANDEZ MD Electronically signed by: DANTE FERNANDEZ MD 08/18/23 155 Diagonstic Imaging: Xray Plain Films/CT/US/NM/MRI: chest Comments NAME: SIMI COVARRUBIAS [facility] REC#: [id number] PT STATUS: REG ER : 1945 PHYSICIAN: JERI DEVLIN MD ADMIT DATE: 08/18/23/ER Signed Date of Exam:08/18/23 CHEST 1 VIEW, AP/PA ONLY INDICATION: Weakness and wheezing. TECHNIQUE: Frontal chest obtained at 03:34 p.m. and compared to 07/21/2023. FINDINGS: Heart is borderline in size. Pacemaker is unchanged. There is no focal infiltrate or pneumothorax or pleural fluid. IMPRESSION: No acute process in the chest. Dictated by: Dictated on workstation # [id number] Dict: 08/18/23 1552 Trans: 08/18/23 1554 [id number] Interpreted by: DANTE FERNANDEZ MD Electronically signed by: DANTE FERNANDEZ MD 08/18/23 1554 Departure Communication (Admissions) Time/Spoke to Admitting Phy: 16:00 Dr. Anderson Impression Primary Impression: Left leg cellulitis Additional Impressions: Debility Postoperative pain Disposition: ADMITTED INPATIENT Condition: Stable Admissions Decision to Admit Reason: Admit from ER (General) Decision to Admit/Date: Aug 18, 2023 Time/Decision to Admit Time: 16:00 Departure-Patient Inst. Referrals: NELLA GROVE DO (PCP/Family) Primary Care Physician JERI DEVLIN MD Aug 18, 2023 14:34
[2023-08-18 14:41] LABS: ALBUMIN 3.5 GM/DL (3.2-4.5); INR 1.2 (0.8-1.4); POTASSIUM 4.8 MMOL/L (3.6-5.0); PROTHROMBIN TIME PATIENT 15.7 SEC (12.2-14.7)
[2023-08-18 14:42] LABS: CALCIUM 9.7 MG/DL (8.5-10.1)
[2023-08-18 14:45] LABS: BILIRUBIN,TOTAL 1.1 MG/DL (0.1-1.0)
[2023-08-18 14:47] LABS: CREATININE SERUM 1.7 MG/DL (0.60-1.30)
[2023-08-18 15:00] LABS: BAND NEUTROPHILS 1 %; EOSINOPHILS % (MANUAL) 1 %; LYMPHOCYTES % (MANUAL) 12 %; MONOCYTES % (MANUAL) 6 %; NEUTROPHILS % (MANUAL) 80 %
[2023-08-18] MEDS ORDERED: fentaNYL INJECTION 100 MCG/2 ML VIAL IVP ONE (15:00)
[2023-08-18 15:01] LABS: ANISOCYTOSIS SLIGHT; ELLIPT/OVALOCYTES SLIGHT; POIKILOCYTOSIS SLIGHT; POLYCHROMASIA SLIGHT; TEAR DROP CELLS SLIGHT
[2023-08-18 15:02] LABS: NUCLEATED RED BLOOD CELLS 1
[2023-08-18 15:16] LABS: BILIRUBIN,URINE NEGATIVE (NEGATIVE); CLARITY,URINE CLEAR; COLOR,URINE YELLOW; GLUCOSE, URINE (UA) NEGATIVE (NEGATIVE); KETONES,URINE NEGATIVE (NEGATIVE); LEUKOCYTE ESTERASE ,URINE NEGATIVE (NEGATIVE); NITRITE,URINE NEGATIVE (NEGATIVE); PH,URINE 5.5 (5-9); PROTEIN,URINE TRACE (NEGATIVE)
[2023-08-18 15:17] LABS: BACTERIA,URINE TRACE /HPF; RBC,URINE 0-2 /HPF; SQUAMOUS EPITHELIAL CELL,UR 0-2 /HPF
--- NOTE | 2023-08-18 15:34 | Diagnostic Imaging Report ---
Procedure: US left lower extremity venous. Technique: Multiple real-time grayscale images were obtained over the left lower extremity in various projections. Additional duplex Doppler and color Doppler images were also obtained. Date: August 18, 2023. Indication: 77-year-old male, left lower extremity knee redness and swelling. Comparison: None. Findings: The left common femoral vein, left superficial femoral vein, and left popliteal vein are all compressible with normal blood flow and response to augmentation. The imaged portions of the left greater saphenous vein and deep femoral vein are patent. The left posterior tibial and peroneal veins are patent. Impression: 1. Negative for left lower extremity deep venous thrombosis. Dictated by: Dictated on workstation # [id number]
[2023-08-18] MEDS ORDERED: cefTRIAXone IV/IM 1,000 MG in NS (IVPB) 50 ML 50 ML IV STA ×2 (15:52→16:09)
--- NOTE | 2023-08-18 15:53 | Diagnostic Imaging Report ---
INDICATION: Left foot pain. AP and lateral views of the left foot are obtained. FINDINGS: No acute fracture is seen. There is postsurgical change with fixation screw in the distal aspect of the second metatarsal. There is degenerative change of the first MTP joint. There are vascular calcifications noted. IMPRESSION: Chronic findings as above with no acute abnormality of the left foot. Dictated by: Dictated on workstation # [id number]
--- NOTE | 2023-08-18 15:55 | Diagnostic Imaging Report ---
INDICATION: Weakness and wheezing. TECHNIQUE: Frontal chest obtained at 03:34 p.m. and compared to 07/21/2023. FINDINGS: Heart is borderline in size. Pacemaker is unchanged. There is no focal infiltrate or pneumothorax or pleural fluid. IMPRESSION: No acute process in the chest. Dictated by: Dictated on workstation # [id number]
--- NOTE | 2023-08-18 15:56 | Diagnostic Imaging Report ---
INDICATION: Left leg pain. AP and lateral views of the left tibia and fibula are obtained. FINDINGS: There is a well-aligned left knee prosthesis. There is no sign of fracture or device loosening. There is no acute bony abnormality. There are vascular calcifications. IMPRESSION: No acute bony abnormality of the left tibia and fibula. Well-aligned left knee prosthesis. Dictated by: Dictated on workstation # [id number]
[2023-08-18] MEDS ORDERED: oxyCODONE/ACETAMINOPHEN 5/325MG TABLET PO ONE (16:00)
[2023-08-18] MEDS ORDERED: VANCOMYCIN INJECTION 1,000 MG in NS (IVPB) 250 ML 250 ML IV ONE (16:15)
[2023-08-18] MEDS ORDERED: NS IV 500 ML 500 ML IV PRN (16:30)
[2023-08-18] MEDS ORDERED: ACETAMINOPHEN 325 MG TABLET PO PRN (16:30)
[2023-08-18] MEDS ORDERED: ANTACID SUSPENSION 30 ML UDC PO PRN (16:30)
[2023-08-18] MEDS ORDERED: CALCIUM CARBONATE 500 MG CHEW TABLET PO PRN (16:30)
[2023-08-18] MEDS ORDERED: HYDROmorphone INJECTION 2 MG/ML VIAL IVP PRN (16:30)
[2023-08-18] MEDS ORDERED: ONDANSETRON INJECTION 4 MG/2 ML (SDV) IV PRN (16:30)
[2023-08-18] MEDS ORDERED: ONDANSETRON 4 MG ORAL DISSOLVE TABLET PO PRN (16:30)
[2023-08-18] MEDS ORDERED: VANCOMYCIN INJECTION 0.1 MG in NS (IVPB) 250 ML 250 ML IV SCH (16:30)
[2023-08-18] MEDS ORDERED: MILK OF MAGNESIA 400 MG/5 ML 30 ML UDC PO PRN (16:30)
[2023-08-18] MEDS ORDERED: BISACODYL 10 MG SUPPOSITORY PR PRN (16:30)
[2023-08-18] MEDS ORDERED: LACTULOSE SYRUP 10GM/15ML 30ML UDC PO PRN (16:30)
[2023-08-18] MEDS ORDERED: VANCOMYCIN 1500MG/300ML PREMIX 300 ML IV NR (17:00)
[2023-08-18] MEDS ORDERED: PIPERACILLIN/Tazobactam 4.5 GM in NS (IVPB) 100 ML 100 ML IV NR (17:00)
[2023-08-18] MEDS ORDERED: VANCOMYCIN INJECTION 750 MG in NS (IVPB) 250 ML 250 ML IV ONE (17:15)
[2023-08-18] MEDS: NS IV 1000 ML 1,000 ML IV SCH (17:31)
[2023-08-18 17:34] VITALS: BP 139/78
[2023-08-18 19:23] VITALS: BP 151/63
[2023-08-18] MEDS: DOCUSATE SODIUM 100 MG CAPSULE PO SCH (20:20)
[2023-08-18] MEDS: APIXABAN 2.5 MG TABLET PO SCH (20:20)
[2023-08-18] MEDS: inSUlin ASPART 1 UNIT/0.01 ML (PER UNIT) SC SCH (20:21)
[2023-08-18] MEDS: SENNOSIDES 8.6 MG TABLET PO SCH (20:21)
[2023-08-18] MEDS: oxyCODONE IMMEDIATE RELEASE 5 MG TABLET PO PRN (20:22)
[2023-08-18] MEDS ORDERED: inSUlin DETERMIR 1 UNIT/0.01 ML (CHARGE PER UNIT) SQ SCH (21:00)
[2023-08-18] MEDS: PIPERACILLIN/Tazobactam 4.5 GM in NS (IVPB) 100 ML 100 ML IV SCH (23:09)
[2023-08-18 23:12] VITALS: BP 136/70
[2023-08-19 03:56] VITALS: BP 133/54
[2023-08-19] MEDS: NS IV 1000 ML 1,000 ML IV SCH ×3 (03:56→18:41)
[2023-08-19] MEDS: inSUlin ASPART 1 UNIT/0.01 ML (PER UNIT) SC SCH ×7 (05:10→20:30)
[2023-08-19] MEDS: PIPERACILLIN/Tazobactam 4.5 GM in NS (IVPB) 100 ML 100 ML IV SCH ×3 (06:05→23:37)
[2023-08-19 06:11] LABS: BASOPHILS # (AUTO) 0.1 10^3/uL (0.0-0.1); BASOPHILS % (AUTO) 1 % (0-10); EOSINOPHILS # (AUTO) 0.3 10^3/uL (0.0-0.3); EOSINOPHILS % (AUTO) 3 % (0-10); HEMATOCRIT 32 % (40-54); HEMOGLOBIN 9.9 g/dL (13.3-17.7); LYMPHOCYTES # (AUTO) 0.7 10^3/uL (1.0-4.0); LYMPHOCYTES % (AUTO) 6 % (12-44); MEAN CORPUSCULAR HEMOGLOBIN 26 pg (25-34); MEAN CORPUSCULAR HGB CONC 31 g/dL (32-36); MEAN CORPUSCULAR VOLUME 85 fL (80-99); MEAN PLATELET VOLUME 11.1 fL (9.0-12.2); MONOCYTES # (AUTO) 0.7 10^3/uL (0.0-1.0); MONOCYTES % (AUTO) 7 % (0-12); NEUTROPHILS # (AUTO) 9.1 10^3/uL (1.8-7.8); NEUTROPHILS % (AUTO) 83 % (42-75); PLATELET COUNT 240 10^3/uL (130-400)
[2023-08-19 06:25] LABS: POTASSIUM 3.9 MMOL/L (3.6-5.0)
[2023-08-19] MEDS: POTASSIUM BICARB 20 MEQ effervescent TABLET PO SCH (06:27)
[2023-08-19] MEDS: POTASSIUM CHLORIDE 20 MEQ TABLET PO SCH (06:27)
[2023-08-19] MEDS: POTASSIUM CL 10MEQ/50ML IVPB 50 ML IV SCH (06:27)
[2023-08-19 06:31] LABS: CREATININE SERUM 1.67 MG/DL (0.60-1.30)
[2023-08-19 06:33] LABS: MAGNESIUM 2.1 MG/DL (1.6-2.4)
[2023-08-19] MEDS: MAGNESIUM 1 GM/100 ML IVPB 100 ML IV SCH (06:34)
[2023-08-19] MEDS ORDERED: POTASSIUM BICARB 20 MEQ effervescent TABLET PO ONE (07:00)
[2023-08-19 07:46] VITALS: BP 139/88
[2023-08-19] MEDS ORDERED: inSUlin ASPART 1 UNIT/0.01 ML (PER UNIT) SC SCH (08:00)
[2023-08-19] MEDS: CLOPIDOGREL 75 MG TABLET PO SCH (08:29)
[2023-08-19] MEDS: SENNOSIDES 8.6 MG TABLET PO SCH ×2 (08:29→19:34)
[2023-08-19] MEDS: APIXABAN 2.5 MG TABLET PO SCH ×2 (08:29→19:32)
[2023-08-19] MEDS: oxyCODONE IMMEDIATE RELEASE 5 MG TABLET PO PRN ×2 (08:29→19:33)
[2023-08-19] MEDS: DOCUSATE SODIUM 100 MG CAPSULE PO SCH ×2 (08:29→19:34)
--- NOTE | 2023-08-19 10:17 | Physical Therapy Evaluation ---
PT Evaluation-General Medical Diagnosis Admission Date Aug 18, 2023 at 16:14 Medical Diagnosis: Cellulitis Left Leg Onset Date: Aug 18, 2023 Therapy Diagnosis Therapy Diagnosis: Gait deficit, strength deficit Height/Weight Height (Feet): 5 Height (Inches): 4.00 Weight (Pounds): 152 Weight (Ounces): 0.0 Precautions Precautions/Isolations: Fall Prevention, Standard Precautions Weight Bear Status Right Lower Extremity: Right Weight Bearing/Tolerated Left Lower Extremity: Left Weight Bearing/Tolerated Referral Physician: Dr. Cronin Reason for Referral: Evaluation/Treatment Medical History Pertinent Medical History: CAD, DM, HTN, PVD Reviewed History: Yes Social History Home: Single Level Current Living Status: Spouse Entry Into Home: Stairs With Railing PT Steps Into Home: 5 Prior Prior Level of Function SCALE: Activities may be completed with or without assistive devices. 9-Kewbrwrpyt-illupzh completes the activity by him/herself with no assistance from a helper. 5-Set-up or Clean-up Assistance-helper sets up or cleans up; patient completes activity. [place] assists only prior to or following the activity. 4-Supervision or Touching Assistance-helper provides verbal cues and/or touching/steadying and/or contact guard assistance as patient completes activity. Assistance may be provided throughout the activity or intermittently. 3-Partial/Moderate Assistance-helper does LESS THAN HALF the effort. [place] lifts, holds or supports trunk or limbs, but provides less than half the effort. 2-Substantial/Maximal Assistance-helper does MORE THAN HALF the effort. [place] lifts or holds trunk or limbs and provides more than half the effort. 3-Vqfyirbpy-mcbzuc does ALL the effort. Patient does none of the effort to complete the activity. Or, the assistance of 2 or more helpers is required for the patient to complete the activity. If activity was not attempted, code reason: 7-Patient Refused. 9-Not Applicable-not attempted and the patient did not perform the activity before the current illness, exacerbation or injury. 10-Not Attempted due to Environmental Limitations-(lack of equipment, weather restraints, etc.). 88-Not Attempted due to Medical Conditions or Safety Concerns. Bed Mobility: 6 Transfers (B,C,W/C): 6 Gait: 6 Stairs: 6 Indoor Mobility (Ambulation): Independent Stairs: Independent Prior Devices Use: Walker PT Evaluation-Current Subjective Patient lying supine in bed upon PT arrival, agreeable to treatment. Patient reports pain at 7/10 in the left leg. Patient report he has no walked since the left TKA, however PT evaluation s/p Left TKA indicates he ambulated 200 feet day of surgery. Objective Patient Orientation: Person, Place, Time, Situation ROM/Strength ROM Lower Extremities Right LE WFLs; Unable to accurately assess Left LE due to pain and swelling. Strength Lower Extremities Right LE 3+/5 all planes; Unable to accurately assess Left LE due to pain and swelling. Sensory Vision: Functional Hearing: Functional Sensation Right Lower Extremit: Intact Sensation Left Lower Extremity: Intact Transfers Roll Left to Right (QC): 4 Sit to Lying (QC): 4 Lying to Sitting/Side of Bed(Q: 4 Sit to Stand (QC): 2 Chair/Koc-kj-Kwrbk Xfer(QC): 3 Gait Does the Patient Walk?: No and Walking Goal IS indicated Mode of Locomotion: Walk Anticipated Mode of Locomotion: Walk Gait Assistive Device: FWW Balance Sitting Static: Fair Sitting Dynamic: Fair Standing Static: Fair Standing Dynamic: Poor Assessment/Needs Patient very hesitant to move the left LE. He performs all bed mobility with SBA/CGA and transfers with mod to max A. Patient unable to fully place heel on the floor during standing and refuses to attempt to do so when given verbal cues by PT. Patient in chair post treatment with nurse in the room, all needs met, call light in hand. Rehab Potential: Fair PT Machine Buffer Goals Machine Buffer Goals PT Correction Goals Time Frame: Sep 08, 2023 Roll Left & Right (QC): 6 Sit to Lying (QC): 6 Lying-Sitting on Side/Bed(QC): 6 Sit to Stand (QC): 6 Toilet Transfer (QC): 6 Does the Patient Walk: Yes Walk 10 feet (QC): 6 Walk 50ft with 2 Turns (QC): 6 Walk 150 ft (QC): 4 1 Step (curb) (QC): 3 4 Steps (QC): 3 12 Steps (QC): 3 PT Plan Problem List Problem List: Activity Tolerance, Functional Strength, Safety, Balance, Gait, Transfer, Bed Mobility, ROM Treatment/Plan Treatment Plan: Continue Plan of Care Treatment Plan: Bed Mobility, Education, Functional Activity [place], Functional Strength, Group Therapy, Gait, Safety, Therapeutic Exercise, Transfers Treatment Duration: Oct 03, 2023 Frequency: 6 times per week Estimated Hrs Per Day: .25 hour per day Patient and/or Family Agrees t: Yes Safety Risks/Education Patient Education: Gait Training, Transfer Techniques Teaching Recipient: Patient Teaching Methods: Demonstration, Discussion Response to Teaching: Reinforcement Needed Time Time In: 938 Time Out: 953 DATE: Aug 19, 2023 Total Billed Treatment Time: 15 Total Billed Treatment Visit, DENISHA DELUCA PT Aug 19, 2023 10:16
[2023-08-19] MEDS ORDERED: GABAPENTIN 100 MG CAPSULE PO NR (11:30)
--- NOTE | 2023-08-19 11:51 | Occupational Therapy Eval ---
OT Evaluation-General/PLF Medical Diagnosis Admission Date Aug 18, 2023 at 16:14 Medical Diagnosis: Cellulitis Left Leg Onset Date: Aug 18, 2023 Therapy Diagnosis Therapy Diagnosis: weakness, confusion Height/Weight Height (Feet): 5 Height (Inches): 4.00 Weight (Pounds): 152 Weight (Ounces): 0.0 Precautions Precautions/Isolations: Fall Prevention, Standard Precautions Weight Bear Status Weight Bearing Restriction: Weight Bearing/Tolerated Location Restriction: L LE Referral Physician: Dr. Cronin Referral Reason: Self Care, Evaluation/Treatment Medical History Pertinent Medical History: CAD, DM, HTN, PVD Social History Home: Single Level Current Living Status: Spouse Entry Into Home: Stairs With Railing Steps Into Home: 5 ADL-Prior Level of Function SCALE: Activities may be completed with or without assistive devices. 3-Tmxnumckfp-einordx completes the activity by him/herself with no assistance from a helper. 5-Set-up or Clean-up Assistance-helper sets up or cleans up; patient completes activity. [place] assists only prior to or following the activity. 4-Supervision or Touching Assistance-helper provides verbal cues and/or touching/steadying and/or contact guard assistance as patient completes activity. Assistance may be provided throughout the activity or intermittently. 3-Partial/Moderate Assistance-helper does LESS THAN HALF the effort. [place] lif ts, holds or supports trunk or limbs, but provides less than half the effort. 2-Substantial/Maximal Assistance-helper does MORE THAN HALF the effort. [place] lifts or holds trunk or limbs and provides more than half the effort. 5-Nzqdahwnq-oermsv does ALL the effort. Patient does none of the effort to complete the activity. Or, the assistance of 2 or more helpers is required for the patient to complete the activity. If activity was not attempted, code reason: 7-Patient Refused. 9-Not Applicable-not attempted and the patient did not perform the activity before the current illness, exacerbation or injury. 10-Not Attempted due to Environmental Limitations-(lack of equipment, weather restraints, etc.). 88-Not Attempted due to Medical Conditions or Safety Concerns. Self Care: Independent (prior to knee surgery) Functional Cognition: Needed Some Help OT Current Status Subjective Confused, Word finding difficulty Pain Numeric Pain Scale: 8 (at rest, eating and laughing) Mental Status/Objective Patient Orientation: Person, Place Attachments: IV Current Upper Extremity ROM BUE ROM WFLS Upper Extremity Coordination FAIR, impaired Upper Extremity Strength -4/5 grossly ADL-Treatment ADL-Current ADLS following wound dressing change Eating (QC): 5 Oral Hygiene (QC): 4 Shower/Bathe Self (QC): 88 Upper Body Dressing (QC): 4 Lower Body Dressing (QC): 3 On/Off Footwear (QC): 3 Toileting Hygiene (QC): 3 Education OT Patient Education: Correct positioning, Modified ADL techniques, Progress toward Goal/Update tx plan, Purpose of tx/functional activities, Reviewed precautions, Rehab process, Safety issues, Transfer techniques, Use of adapted equipment Teaching Recipient: Patient Teaching Methods: Demonstration, Discussion Response to Teaching: Reinforcement Needed OT Fdc Goals Physician/Allergy/Immunology Goals Eating (QC): 6 Oral Hygiene (QC): 6 Toileting Hygiene (QC): 6 Shower/Bathe Self (QC): 6 Upper Body Dressing (QC): 6 Lower Body Dressing (QC): 6 On/Off Footwear (QC): 6 1=Demonstrate adherence to instructed precautions during ADL tasks. 2=Patient will verbalize/demonstrate understanding of assistive devices/modifications for ADL. 3=Patient will improve strength/tolerance for activity to enable patient to pe rform ADL's. OT Education/Plan Problem List/Assessment Assessment: Decreased Activ Tolerance, Decreased Safety Aware, Impaired Cognition, Impaired Coordination, Impaired Funct Balance, Impaired Self-Care Skills Discharge Recommendations Plan/Recommendations: Continue POC Therapy Discharge Recommendati: Post Acute OT Treatment Plan/Plan of Care Treatment,Training & Education: Yes Patient would benefit from OT for education, treatment and training to promote independence in ADL's, mobility, safety and/or upper extremity function for ADL's. Plan of Care: ADL Retraining, Functional Mobility, Group Exercise/Act as Ind, UE Funct Exercise/Act Treatment Duration: Aug 24, 2023 Frequency: 3 times per week (3-5 times per week) Estimated Hrs Per Day: .25 hour per day Agreement: Yes Rehab Potential: Fair Time Start Time: 11:15 Stop Time: 11:30 DATE: Aug 19, 2023 Total Time Billed (hr/min): 15 Billed Treatment Time EVM 15 min PATRIZIA GALVNA OT Aug 19, 2023 11:51
[2023-08-19 12:20] VITALS: BP_SYST 0
--- NOTE | 2023-08-19 12:35 | Consultation - Ortho ---
Consult - Ortho Subjective Date of Exam 08/19/23 Chief Complaint Left Leg Pain/Loss of Mobility HPI/Events since last exam had L TKA last week, did not gain approval for any form of home therapy from [place], has been getting less and less mobile, has developed swelling in leg progressing to sore and now potential cellulitis, admitted yesterday for antibiotics and potential consideration for rehab Medical, Surgical History see admit Social History see admit Family History see admit Review of Systems - Allergies: Coded Allergies: lisinopril (Verified Adverse Reaction, Unknown, affects kidneys, 07/02/22) metformin (Verified Adverse Reaction, Unknown, affects kidneys, 07/02/22) Home Meds Active Scripts Oxycodone Hcl (OXYIR TABLET) 5 Mg Tab, 10 MG PO Q4H PRN for PAIN-SEVERE (8-10) for 7 Days, #40 TAB 0 Refills Prov:HAKEEM VILLANUEVA MD 08/12/23 Apixaban (Eliquis) 2.5 Mg Tablet, 2.5 MG PO BID for 14 Days, #28 TAB 0 Refills Prov:HAKEEM VILLANUEVA MD 08/12/23 Reported Medications Insulin Glargine,Hum.rec.anlog (Insulin Glargine Solostar) 100 Unit/Ml (3 Ml) Insuln.pen, 50 UNIT SQ HS, EA 08/11/23 B6/Folic/B12/Coffee/Phosphatid (Neuriva Plus Brain Perform Cap) 1.7MG-400 Capsule, 1 EACH PO DAILY, CAP 08/11/23 Pioglitazone HCl (Pioglitazone HCl) 30 Mg Tablet, 30 MG PO DAILY, TAB 08/11/23 Insulin Aspart (Novolog Flexpen) 100 Unit/Ml (3 Ml) Solution, 35 UNITS SQ HS, EA 08/11/23 Insulin Aspart (Novolog Flexpen) 100 Unit/Ml (3 Ml) Solution, 30 UNITS SQ AC, EA 08/11/23 Losartan Potassium (Losartan Potassium) 50 Mg Tablet, 50 MG PO DAILY, TAB 12/03/22 Cyanocobalamin (Cyanocobalamin Injection) 1,000 Mcg/Ml Inj, 1000 MCG IM EVERY 3 WEEKS, EA 12/03/22 Testosterone Cypionate (Testosterone Cypionate) 200 Mg/Ml Vial, 200 MG IM EVERY 3 WEEKS, EA 12/03/22 Potassium Chloride (Klor-Con M10) 10 Meq Tab.er.prt, 30 MEQ PO BID, TAB TAKES 3 (10MEQ) TABS 12/03/22 Metoprolol Succinate (Metoprolol Succinate) 100 Mg Tab.er.24h, 50 MG PO HS, TAB TAKES OF A 100MG TAB 12/03/22 Calcitriol (Calcitriol) 0.25 Mcg Capsule, 0.25 MCG PO DAILY, CAP 07/02/22 Furosemide (Furosemide) 40 Mg Tablet, 40 MG PO DAILY, TAB 07/02/22 Pantoprazole Sodium (Pantoprazole Sodium) 40 Mg Tablet.dr, 40 MG PO BID, TAB 04/24/21 Clopidogrel Bisulfate (Clopidogrel) 75 Mg Tablet, 75 MG PO DAILY, TAB 04/24/21 Metoprolol Succinate (Metoprolol Succinate) 100 Mg Tab.er.24h, 100 MG PO DAILY, TAB 04/24/21 Cholecalciferol (Vitamin D3) (Vitamin D3) 125 Mcg Capsule, 125 MCG PO DAILY, CAP 04/24/21 Amlodipine Besylate (Amlodipine Besylate) 10 Mg Tablet, 10 MG PO DAILY, TAB 04/18/20 Allopurinol (Allopurinol) 100 Mg Tablet, 100 MG PO DAILY, TAB 04/18/20 Alogliptin Benzoate (Alogliptin) 12.5 Mg Tablet, 12.5 MG PO DAILY, TAB 04/18/20 Chlorthalidone (Chlorthalidone) 25 Mg Tablet, 25 MG PO DAILY, TAB 04/18/20 Magnesium Oxide (Magnesium Oxide) 400 Mg Tablet, 400 MG PO DAILY, TAB 08/20/17 [place]-3 Fatty Acids/Fish Oil (Fish Oil 1,000 mg Softgel) 1 Each Capsule, 1000 MG PO DAILY, CAP 08/20/17 Gabapentin (Gabapentin) 100 Mg Capsule, 200 MG PO BID, CAP TAKES 2 (100MG) CAPS 08/19/17 Atorvastatin Calcium (Atorvastatin Calcium) 20 Mg Tablet, 20 MG PO HS, TAB 08/19/17 Discontinued Reported Medications Aspirin (Aspirin EC) 81 Mg Tablet.dr, 81 MG PO DAILY, TAB 04/24/21 Tramadol HCl (Tramadol HCl) 50 Mg Tablet, 100 MG PO Q6H PRN for PAIN-MODERATE (5-7), TAB TAKES 2 (50MG) TABS 08/19/17 Objective Exam L Knee: Incision with bloody drainage from one point centrally, otherwise intact, knee with effusion, lower leg edematous and erythematous with development of superficial sore on anterior portion of mid tibia Vital Signs Vital Signs Date Time Temp Pulse Resp B/P (MAP) Pulse Ox O2 Delivery O2 Flow Rate FiO2 08/19/23 12:20 0/ 08/19/23 08:40 Room Air 08/19/23 07:46 37.2 76 20 139/88 (105) 94 Room Air 08/19/23 07:15 69 08/19/23 03:56 36.7 68 18 133/54 (80) 95 Room Air 08/19/23 01:00 62 08/18/23 23:12 36.7 70 16 136/70 (92) 97 Room Air 08/18/23 20:25 Room Air 08/18/23 19:23 36.6 65 16 151/63 (92) 95 Room Air 08/18/23 19:00 63 08/18/23 18:00 69 08/18/23 17:34 36.8 66 16 139/78 (98) 96 Room Air 08/18/23 17:23 Room Air 08/18/23 16:23 61 18 121/98 94 Room Air 08/18/23 14:11 37.0 70 18 155/80 (105) 92 Room Air I & O 08/19/23 07:00 Intake Total 1150 ml Output Total 1250 ml Balance -100 ml Lab Results Laboratory Tests 08/18/23 14:20: White Blood Count 15.3H, Red Blood Count 4.03L, Hemoglobin 10.5L, Hematocrit 35L , Mean Corpuscular Volume 87, Mean Corpuscular Hemoglobin 26, Mean Corpuscular Hemoglobin Concent 30L, Red Cell Distribution Width 18.6H, Platelet Count 288, Mean Platelet Volume 11.3, Immature Granulocyte % (Auto) 1, Neutrophils (%) (Auto) 81H, Lymphocytes (%) (Auto) 8L, Monocytes (%) (Auto) 8, Eosinophils (%) (Auto) 2, Basophils (%) (Auto) 1, Neutrophils # (Auto) 12.3H, Lymphocytes # (Auto) 1.2, Monocytes # (Auto) 1.2H, Eosinophils # (Auto) 0.3, Basophils # (Auto) 0.1, Immature Granulocyte # (Auto) 0.2H, Neutrophils % (Manual) 80, Lymphocytes % (Manual) 12, Monocytes % (Manual) 6, Eosinophils % (Manual) 1, Band Neutrophils 1, Nucleated Red Blood Cells 1, Polychromasia SLIGHT, Poikilocytosis SLIGHT, Anisocytosis SLIGHT, Tear Drop Cells SLIGHT, Elliptocytes SLIGHT, Prothrombin Time 15.7H, INR Comment 1.2, Activated Partial Thromboplast Time 35, Sodium Level 136, Potassium Level 4.8, Chloride Level 101, Carbon Dioxide Level 23, Anion Gap 12, Blood Urea Nitrogen 44H, Creatinine 1.70H, Estimat Glomerular Filtration Rate 41, BUN/Creatinine Ratio 26, Glucose Level 128H, Lactic Acid Level 1.20, Calcium Level 9.7, Corrected Calcium 10.1, Total Bilirubin 1.1H, Aspartate Amino Transf (AST/SGOT) 39H, Alanine Aminotransferase (ALT/SGPT) 23, Alkaline Phosphatase 115, C-Reactive Protein High Sensitivity 21.67H, Total Protein 7.0, Albumin 3.5 08/18/23 14:49: Urine Color YELLOW, Urine Clarity CLEAR, Urine pH 5.5, Urine Specific [place] 1.015L, Urine Protein TRACEH, Urine Glucose (UA) NEGATIVE, Urine Ketones NEGATIVE, Urine Nitrite NEGATIVE, Urine Bilirubin NEGATIVE, Urine Urobilinogen 1.0, Urine Leukocyte Esterase NEGATIVE, Urine RBC (Auto) NEGATIVE, Urine RBC 0- 2, Urine WBC NONE, Urine Squamous Epithelial Cells 0-2, Urine Crystals NONE, Urine Bacteria TRACE, Urine Casts NONE, Urine Mucus SMALLH, Urine Culture Indicated CULTURE PENDING 08/18/23 19:50: Glucometer 125H 08/19/23 05:09: Glucometer 71 08/19/23 05:55: White Blood Count 11.0, Red Blood Count 3.83L, Hemoglobin 9.9L, Hematocrit 32L, Mean Corpuscular Volume 85, Mean Corpuscular Hemoglobin 26, Mean Corpuscular Hemoglobin Concent 31L, Red Cell Distribution Width 18.2H, Platelet Count 240, Mean Platelet Volume 11.1, Immature Granulocyte % (Auto) 1, Neutrophils (%) (Auto) 83H, Lymphocytes (%) (Auto) 6L, Monocytes (%) (Auto) 7, Eosinophils (%) (Auto) 3, Basophils (%) (Auto) 1, Neutrophils # (Auto) 9.1H, Lymphocytes # (Auto) 0.7L, Monocytes # (Auto) 0.7, Eosinophils # (Auto) 0.3, Basophils # (Auto ) 0.1, Immature Granulocyte # (Auto) 0.1, Sodium Level 140, Potassium Level 3.9, Chloride Level 104, Carbon Dioxide Level 25, Anion Gap 11, Blood Urea Nitrogen 38H, Creatinine 1.67H, Estimat Glomerular Filtration Rate 42, BUN/Creatinine Ratio 23, Glucose Level 94, Calcium Level 9.0, Magnesium Level 2.1 Microbiology 08/18/23 Urine Culture - Preliminary, Resulted Assessment and Plan Assessment Cellulitis potentially secondary to changes related to lack of mobility after surgery Immobility Problem List Cellulitis potentially secondary to changes related to lack of mobility after surgery Immobility Plan PT/OT Antibiotic treatment Needs rehab or extended care Final Diagonsis Cellulitis potentially secondary to changes related to lack of mobility after surgery Immobility Level of the visit: Level 3 (global) HAKEME VILLANUEVA MD Aug 19, 2023 12:35
--- NOTE | 2023-08-19 12:36 | Wound Care Assessment ---
Wound Care Assessment Date Seen by Provider: Aug 19, 2023 Time Seen by Provider: 12:10 Chief Complaint LLE cellulitis s/p left total knee replacement HPI Our patient is a 77 yo M with a past medical history of hypertension, CAD, PVD, HLD, HTN, CKD-3, and insulin-dependant type II diabetes mellitus who presents with left lower extremity cellulitis and multiple, small skin erosions s/p left total knee replacement. He notes that he has become increasingly lethargic and weak since his procedure and indicates that he has intermittently felt feverish since then. Regarding his left lower extremity, he states that his lower leg has become increasingly more swollen and red since the procedure, as well as more tender to palpation. There are multiple, small surface level lesions present on the left east that he notes have appeared intermittently for the last several years and generally resolve with no intervention. He denies noticing any drainage from the erosions but notes some bleeding from his surgical site for the last few days. He is a type II diabetic and states that his glucose levels generally fall between 170-350 and he is unsure of his last HgB A1C. He experiences neuropathic pain in all four extremities. He has a history of revascularization in his left leg and has a pacemaker. Past Medical History: Admits Diabetes Type II, Admits Heart Disease, Admits Peripheral Artery Disease Venous hypertension with chronic lymphedema Smoking Status: Former Smoker Review of Systems General: Chills, Fatigue HEENT: No Head Aches, No Visual Changes Pulmonary: Dyspnea; No Pleuritic Chest Pain Cardiovascular: Edema; No: Chest Pain, Palpitations Gastrointestinal: Nausea (Intermittent); No: Vomiting Musculoskeletal: leg pain (Left leg) Neurological: Weakness; No: Confusion Exam Vital Signs Date Time Temp Pulse Resp B/P (MAP) Pulse Ox O2 Delivery O2 Flow Rate FiO2 08/19/23 12:20 0/ 08/19/23 08:40 Room Air 08/19/23 07:46 37.2 76 20 94 Capillary Refill : Less Than 3 Seconds General Appearance: WD/WN, no apparent distress HEENT: PERRL/EOMI Cardiovascular: regular rate, rhythm, no gallop, no JVD, no murmur, other (paced rhythm) Respiratory: chest non-tender, lungs clear, no respiratory distress, no accessory muscle use, wheezing (Quiet, upper-airway) Back: no CVA tenderness Extremities: inflammation (LLE), swelling (LLE), other (Erythema, warmth, and swelling noted in left lower extremity. Erythema noted just distal to the [id number] incision site that extends downward into the dorsal surface of the foot. The skin is shiny and tender to palpation. There is mild ecchymoses present on the anterior and superior surface of the left medial malleolus.) Neurologic/Psychiatric: alert, normal mood/affect, oriented x 3 Skin: ecchymosis (Left medial malleolus and posterior to the left knee), other (Multiple, small erosions noted on the anterior surface of the left lower extremity, mid-way from the east to the knee joint. There is no tunneling or undermining noted. Scant serous yellow exudate at the ulcer sites is noted without odor. Margins are well-defined. The ulcers are covered in a yellow, crust-like substance but no fluid drainage is noted. Necrotic tissue is medium, epithelialization is small. The largest ulcer measures at 1.5 cm x 1 cm x 0.1 cm. The second largest measures at 1 cm x 0.7 cm x 0.1 cm. Lesions are nearly surface level.) Skin Problem Location: lower extremities (Left) Results Laboratory Tests 08/18/23 14:20: White Blood Count 15.3H, Red Blood Count 4.03L, Hemoglobin 10.5L, Hematocrit 35L , Mean Corpuscular Volume 87, Mean Corpuscular Hemoglobin 26, Mean Corpuscular Hemoglobin Concent 30L, Red Cell Distribution Width 18.6H, Platelet Count 288, Mean Platelet Volume 11.3, Immature Granulocyte % (Auto) 1, Neutrophils (%) (Auto) 81H, Lymphocytes (%) (Auto) 8L, Monocytes (%) (Auto) 8, Eosinophils (%) (Auto) 2, Basophils (%) (Auto) 1, Neutrophils # (Auto) 12.3H, Lymphocytes # (Auto) 1.2, Monocytes # (Auto) 1.2H, Eosinophils # (Auto) 0.3, Basophils # (Auto) 0.1, Immature Granulocyte # (Auto) 0.2H, Neutrophils % (Manual) 80, Lymphocytes % (Manual) 12, Monocytes % (Manual) 6, Eosinophils % (Manual) 1, Band Neutrophils 1, Nucleated Red Blood Cells 1, Polychromasia SLIGHT, Poikilocytosis SLIGHT, Anisocytosis SLIGHT, Tear Drop Cells SLIGHT, Elliptocytes SLIGHT, Prothrombin Time 15.7H, INR Comment 1.2, Activated Partial Thromboplast Time 35, Sodium Level 136, Potassium Level 4.8, Chloride Level 101, Carbon Dioxide Level 23, Anion Gap 12, Blood Urea Nitrogen 44H, Creatinine 1.70H, Estimat Glomerular Filtration Rate 41, BUN/Creatinine Ratio 26, Glucose Level 1 28H, Lactic Acid Level 1.20, Calcium Level 9.7, Corrected Calcium 10.1, Total Bilirubin 1.1H, Aspartate Amino Transf (AST/SGOT) 39H, Alanine Aminotransferase (ALT/SGPT) 23, Alkaline Phosphatase 115, C-Reactive Protein High Sensitivity 21.67H, Total Protein 7.0, Albumin 3.5 08/18/23 14:49: Urine Color YELLOW, Urine Clarity CLEAR, Urine pH 5.5, Urine Specific [place] 1.015L, Urine Protein TRACEH, Urine Glucose (UA) NEGATIVE, Urine Ketones NEGATIVE, Urine Nitrite NEGATIVE, Urine Bilirubin NEGATIVE, Urine Urobilinogen 1.0, Urine Leukocyte Esterase NEGATIVE, Urine RBC (Auto) NEGATIVE, Urine RBC 0- 2, Urine WBC NONE, Urine Squamous Epithelial Cells 0-2, Urine Crystals NONE, Urine Bacteria TRACE, Urine Casts NONE, Urine Mucus SMALLH, Urine Culture Indicated CULTURE PENDING 08/18/23 19:50: Glucometer 125H 08/19/23 05:09: Glucometer 71 08/19/23 05:55: White Blood Count 11.0, Red Blood Count 3.83L, Hemoglobin 9.9L, Hematocrit 32L, Mean Corpuscular Volume 85, Mean Corpuscular Hemoglobin 26, Mean Corpuscular Hemoglobin Concent 31L, Red Cell Distribution Width 18.2H, Platelet Count 240, Mean Platelet Volume 11.1, Immature Granulocyte % (Auto) 1, Neutrophils (%) (Auto) 83H, Lymphocytes (%) (Auto) 6L, Monocytes (%) (Auto) 7, Eosinophils (%) (Auto) 3, Basophils (%) (Auto) 1, Neutrophils # (Auto) 9.1H, Lymphocytes # (Auto) 0.7L, Monocytes # (Auto) 0.7, Eosinophils # (Auto) 0.3, Basophils # (Auto) 0.1, Immature Granulocyte # (Auto) 0.1, Sodium Level 140, Potassium Level 3.9, Chloride Level 104, Carbon Dioxide Level 25, Anion Gap 11, Blood Urea Nitrogen 38H, Creatinine 1.67H, Estimat Glomerular Filtration Rate 42, BUN/Creatinine Ratio 23, Glucose Level 94, Calcium Level 9.0, Magnesium Level 2.1 Microbiology 08/18/23 Urine Culture - Preliminary, Resulted Microbiology 08/18/23 Urine Culture - Preliminary, Resulted Assessment/Plan/Dx Left leg cellulitis s/p total left knee replacement Full thickness ulcers anterior calf (bullous) Possible staphylococcal infection -Agree with current antibiotics -Cleanse ulcer sites daily and apply barrier ointment to periwound -Continue left leg elevation -Leukocytosis is downward trending -Monitor infection with serial labs -Doppler ultrasound was negative for DVT -Continue to monitor wound progression as leg swelling decreases Supervisory-Addendum Brief Verification & Attestation Participated in pt care: history, MDM, physical, procedure Personally performed: exam, history, MDM, supervision of care Care discussed with: Medical Student Procedures: n/a Results interpretation: Verified all documentation RONA Arriaga MD Aug 19, 2023 12:36 NANETTE MCKEON MD Aug 19, 2023 15:11
[2023-08-19 16:00] VITALS: BP 134/90
--- NOTE | 2023-08-19 16:47 | CONSULTATION REPORT ---
DATE OF SERVICE: 08/19/2023 ATTENDING PRIMARY CARE PHYSICIAN: Dr. Sam Lujan. HISTORY OF PRESENT ILLNESS: The patient is a 77-year-old male who we seen before in the past. He presented to the emergency department yesterday after noticing swelling, redness and pain of the left lower extremity. The patient is status post a left total knee arthroplasty, postoperative day #8. The wound appears to be clean and dry and not contiguous with cellulitis of the lower aspect of the leg. There is a significant amount of edema of the left leg, which is expected after total knee arthroplasty with disruption of the lymphatic channels as well as veins. There is again an overlying redness and erythema starting at the dorsal aspect of the foot and extending to the level just below the knee. RECOMMENDATIONS: To proceed with elevation with at least 2 pillows at all times including in bed as well as sitting. We will also recommend a snug compression dressing starting from the toes all the way to above the knee with 4-inch as well as 6-inch Rick wraps. He was also need to be on IV antibiotics with Zosyn as well as vancomycin. He also needs to proceed with DVT prophylaxis due to the high-risk category. PAST MEDICAL HISTORY: Hypertension, hypercholesterolemia, diabetes, peripheral vascular disease, degenerative joint disease, coronary artery disease, sleep apnea, valvular heart disease, chronic kidney disease, gastroesophageal reflux disease, psoriasis. PAST SURGICAL HISTORY: Left total knee arthroplasty approximately 9 days ago, scalp skin cancer excision, cardiac catheterization and stent placement, pacemaker implantation, tonsillectomy, arteriogram with bilateral runoff, angioplasty and stent placement. ALLERGIES: LISINOPRIL, METFORMIN. MEDICATIONS: Allopurinol, alogliptin, amlodipine, apixaban, atorvastatin, chlorthalidone, Plavix, furosemide, gabapentin, aspartate insulin, glargine insulin, losartan, metoprolol, oxycodone, Protonix, pioglitazone, potassium, testosterone, tramadol. SOCIAL HISTORY: Negative smoke, negative alcohol. FAMILY HISTORY: Noncontributory. VITAL SIGNS: Temperature 37.2, blood pressure 139/88, pulse 71, respirations 20, pulse ox 94% on room air. REVIEW OF SYSTEMS: Well-nourished male, currently guarded secondary to the left lower extremity pain. He is not experiencing any shortness of breath or difficulty breathing. No chest pain, palpitations, diaphoresis. No nausea, vomiting. No diarrhea or constipation. He does not report any fever, no chills as well as no recent inadvertent weight loss. His only complaint is left leg pain and swelling as well as an overlying redness. All other review of systems negative. PHYSICAL EXAMINATION: CHEST: Few scattered rales and rhonchi bilaterally. HEART: Regular. No murmurs. EXTREMITIES: +2/3 left lower extremity edema with redness and edema overlying the dorsal aspect of the left foot and extending to just below the knee. +2/3 edema. There is pain upon palpation. The previous left total knee incision is clean, dry, and intact with no fluctuance to indicate any abscess. HEENT: No scleral icterus. No cervical lymphadenopathy. ABDOMEN: Soft, nontender, nondistended. SKIN: Warm, dry. LABORATORY DATA: WBC 11.0, hemoglobin 9.9, hematocrit 32, platelets 240, BUN 38, creatinine 1.67. ASSESSMENT AND PLAN: A 77-year-old male with multiple medical problems with cellulitis of the left lower extremity, status post left total knee arthroplasty, postoperative day #9. RECOMMENDATIONS: To proceed with IV antibiotics with broad-spectrum such as Zosyn as well as gram-positive coverage as well as MRSA coverage with Zosyn, which he is also on. We will also recommend elevation with 2 pillows at all times as well as compression dressing all the way from the toes to the mid thigh region with 4-inch as well as 6-inch Rick wrap. Job ID: [id number] DocumentID: [id number] Dictated Date: 08/19/2023 16:16:51 [employer] Date: 08/19/2023 16:44:00 Dictated By: [place] MD
--- NOTE | 2023-08-19 17:29 | History & Physical-Hospitalist ---
SHAYNE DOUGLAS 08/19/231728: History of Present Illness HPI/Chief Complaint Geovany is a 77yo male who is post op day 9 for L total knee replacement with a history of hypertension, CKD - stage 3, DM-II, and likely PVD. He presented to the [facility] ED yesterday with complaints of weeping from his knee and increased swelling and erythema. He reports that he has had skin problems on the anterolateral part of his L leg for some time before this surgery. He reports that when he would take a shower, the skin on his leg would slough off. It appears to be very erythematous at the L proximal tibial tuberosity down to his toes on his L foot. He has 3 ulcerations on his left east with honey crusted lesions. It is warm to touch, but there do not appear to be any pockets of fluctuance. He left leg is greatly enlarged compared to his right. There is 4+ pitting edema at the left foot. Sensation is still intact and no plantar ulcers are noted. He denied itchiness and described that wound care had been seeing him for this problem, but this did not help. He endorsed some numbness and burning in his feet He appears to have moderate purpura on the back of his L leg. He describes having his veins in his legs "glued shut" at [facility]. His Left knee still very painful - he rates it as a 10/10 severity and describes that it feels "like shit". He speaks slowly and is not a great historian. Geovany denied shortness of breath, nausea and vomiting, chest pain, and fever. He is being treated for his CKD by Dr. Conde in [place]. He has had many surgeries including both shoulders, back surgery, and a pacemaker put in by Dr. Xiao. He has allergies to lisinopril and metformin. He takes many medications - including aspart, detemir for diabetes, and metoprolol for his HTN. He is a former cigarette smoker - quitting nearly 40 years ago. He is . X-ray of his L leg showed "well-aligned left knee prosthesis. There is no sign of fracture or device loosening. There is no acute bony abnormality. There are vascular calcifications ". Ultrasound of L leg was also non-contributory. CXR was noncontributory. Dr. Barrios who performed the L. knee replacement has been consulted. His WBC count was elevated at 15.3 yesterday, but is decreased to 11.0 today. BUN and Cr are both elevated, likely due to his CKD. Source: patient, RN/MD, RN notes reviewed Exam Limitations: no limitations Date Seen 08/19/23 Time Seen by a Provider: 09:00 Attending Physician Sam Lujan DO PCP Admitting Physician: Praveen Anderson MD Attending Physician: Praveen Anderson MD Referring Physician Date of Admission Aug 18, 2023 at 16:14 Home Medications & Allergies Home Medications Reviewed patient Home Medication Reconciliation performed by pharmacy medication reconciliations criminal records technician and/or nursing. Patients Allergies have been reviewed. Allergies Allergies Coded Allergies lisinopril (Verified Adverse Reaction, Unknown, affects kidneys, 07/02/22) metformin (Verified Adverse Reaction, Unknown, affects kidneys, 07/02/22) Past Lgchmlo-Cncbdm-Vgzlcc Hx Patient Social History Marrital Status: Tobacco Use?: Yes Tobacco type used: Cigarettes Smoking Status: Former Smoker Smokeless Tobacco Frequency: Never a User Use of E-Cig and/or Vaping dev: No Substance use?: No Alcohol Use?: Yes Alcohol type: Beer Alcohol Frequency: Several times a month Pt feels they are or have been: No Immunizations Up To Date Date of Influenza Vaccine: Aug 04, 2023 First/Initial COVID19 Vaccinat: 2020 Second COVID19 Vaccination Aime: 2020 Tetanus Booster (TDap): Unknown Date of Pneumonia Vaccine: Aug 09, 2020 Seasonal Allergies Seasonal Allergies: Yes Current Status Advance Directives: No Communicates: Verbally Primary Language: Qatari Preferred Spoken Language: Qatari Is interpretation needed?: No Sensory deficits: Hearing impairment Implanted or Applied Medical D: Orthopedic hardware, Pacemaker, Stents Past Medical History Surgeries: Abdominal, Coronary Stent, Eye Surgery, Joint Replacement (Left knee, R shoulder, L shoulder), Orthopedic, Pacemaker, Tonsillectomy, Vascular Surgery Currently Using CPAP: No Coronary Artery Disease, Heart Murmur (mitral area, sounds like aortic regurgitation), High Cholesterol, Hypertension, Peripheral Vascular, Valvular Heart Disease Neuropathy, TIA Sexually Transmitted Disease: No Renal Failure (Chronic kidney disease - stage 3) Gastroesophageal Reflux, Irritable Bowel Arthritis, Chronic Back Pain, Fractures Diabetes, Insulin dep Cataract Skin Did You Recieve Any Treatments: Yes What Type of Treatment Did You: Surgical Intervention Psoriasis Blood Disorders: No Adverse Reaction/Blood Tranf: No Family Medical History Family history: Diabetes mellitus 19 MOTHER G8 SISTER Heart disease G8 BROTHER UNCLE Heart Disease, Diabetes Review of Systems Constitutional: No chills, No diaphoresis, No dizziness, No fever; weakness EENTM: No ear discharge, No ear pain, No eye pain Respiratory: No cough, No short of breath Cardiovascular: No chest pain; edema (4+ at L foot) Gastrointestinal: No abdominal pain, No diarrhea, No dysphagia Genitourinary: No hematuria, No incontinence Musculoskeletal: joint pain, joint swelling; No muscle pain, No muscle cramps Skin: change in color (erythema), lesions (honey crusted lesions); No pruritus Psychiatric/Neurological: Denies Headache, Denies Numbness, Denies Paresthesia; Tingling (feet) Physical Exam Physical Exam Vital Signs Vital Signs - First Documented 08/18/23 14:11 Temp 37.0 Pulse 70 Resp 18 B/P (MAP) 155/80 (105) Pulse Ox 92 O2 Delivery Room Air Capillary Refill : Less Than 3 Seconds Height, Weight, BMI Height: 5'4.00" Weight: 152lbs. 0.0oz. [id number]; 32.98 BMI Method:Stated General Appearance: No Apparent Distress, Obese Eyes: Bilateral Eye Normal Inspection HEENT: No Photophobia, No Scleral Icterus (L), No Scleral Icterus (R) Neck: Full Range of Motion, Supple Respiratory: Lungs Clear, Normal Breath Sounds, No Accessory Muscle Use, No Respiratory Distress Cardiovascular: Regular Rate, Rhythm; No No Edema (4+ edema of L foot); Diastolic Murmur (murmur heard in mitral area, sounds like aortic regurgitation) Gastrointestinal: Normal Bowel Sounds, Soft; No Guarding, No Tenderness Rectal: Deferred Back: No CVA Tenderness, No Vertebral Tenderness Extremity: Normal Capillary Refill; No Normal Range of Motion (reduced range of motino - cannot lift L leg into knee flexion or hip extension), No No Pedal Edema (pedal edema 4+ at L foot); Inflammation, Swelling Neurologic/Psychiatric: Alert, Oriented x3, Normal Mood/Affect, Other (neuropathic burning in feet) Skin: No Normal Color; Ecchymosis (moderate pupura posterior L leg), Erythema, Other (3 lesions on L east with honey crusting) Lymphatic: No Adenopathy Results Results/Procedures Labs Laboratory Tests 08/18/23 14:20 08/19/23 05:55 Patient resulted labs reviewed. Imaging: Reviewed Imaging Films Assessment/Plan Admission Diagnosis Acute Cellulitis of L leg Admission Status: Inpatient Order (span 2 midnights) Reason for Inpatient Admission: IV abx, wound care Assessment and Plan 1. Acute Cellulitis of left leg - IV vancomyacin tazobactam - repeat labs - consult general surgery - PT as tolerated 2. Status post L knee replacement pain control - oxycodone 5mg q4h prn, hydromorphone 0.25mg q2h prn DVT prophylaxis - apixaban 2.5mg BID, clopidegrel 75mg PO 3. DM Type II - Insulin aspart (sliding scale), insulin detemir 40 units 4. HTN -metoprolol 5. Diabetic neuropathy - 200mg gabapentin 6. CKD - stage 3 IV fluids Diagnosis/Problems Diagnosis/Problems (1) HTN (hypertension) Status: Chronic Qualifiers: Hypertension type: primary hypertension Qualified Codes: I10 - Essential (primary) hypertension (2) T2DM (type 2 diabetes mellitus) Status: Chronic (3) Stage 3a chronic kidney disease Status: Chronic (4) PVD (peripheral vascular disease) Status: Chronic (5) Cellulitis of lower leg Status: Acute (6) Postoperative pain Status: Acute PRAVEEN ANDERSON MD 08/20/23 0830: History of Present Illness Time Seen by a Provider: 11:00 Past Ybsfsyn-Kpxoaq-Vujjcg Hx Family Medical History Family history: Diabetes mellitus 19 MOTHER G8 SISTER Heart disease G8 BROTHER UNCLE Physical Exam Physical Exam General Appearance: No Apparent Distress, WD/WN Respiratory: Lungs Clear, No Respiratory Distress Cardiovascular: Regular Rate, Rhythm, No Murmur Gastrointestinal: Normal Bowel Sounds, Soft Extremity: Inflammation, Swelling Neurologic/Psychiatric: Alert, Normal Mood/Affect Skin: Erythema Results Results/Procedures Imaging: Reviewed Imaging Films, Reviewed Imaging Report Assessment/Plan Admission Diagnosis Admission Status: Inpatient Order (span 2 midnights) Reason for Inpatient Admission: IV antibiotics Assessment and Plan Admitted with left lower leg cellulitis. Started on IV antibiotics. Complicated by poorly controlled diabetes and peripheral vascular disease. Wound care and surgery consulted for assistance with care. Diagnosis/Problems Diagnosis/Problems (1) Cellulitis of lower leg Status: Acute (2) HTN (hypertension) Status: Chronic Qualifiers: Hypertension type: primary hypertension Qualified Codes: I10 - Essential (primary) hypertension (3) T2DM (type 2 diabetes mellitus) Status: Chronic (4) Stage 3a chronic kidney disease Status: Chronic (5) PVD (peripheral vascular disease) Status: Chronic (6) Postoperative pain Status: Acute Supervisory-Addendum Brief Verification & Attestation Participated in pt care: history, MDM, physical Personally performed: exam, history, MDM, supervision of care Care discussed with: Medical Student Procedures: n/a A medical student performed and documented this service in my presence. I reviewed and verified all information documented by the medical student and made modifications to such information, when appropriate. I personally performed the physical exam and medical decision making. SHAYNE DOUGLAS Aug 19, 2023 17:29 PRAVEEN ANDERSON MD Aug 20, 2023 08:30
[2023-08-19] MEDS: VANCOMYCIN 1 GM/NS 250 ML IVPB IV SCH ×2 (17:47)
[2023-08-19] MEDS: MELATONIN 3 MG TABLET PO PRN (19:32)
[2023-08-19] MEDS: GABAPENTIN 100 MG CAPSULE PO SCH (19:32)
[2023-08-19 19:50] VITALS: BP 133/62
[2023-08-19] MEDS ORDERED: GABAPENTIN 100 MG CAPSULE PO SCH (21:00)
[2023-08-19 23:32] VITALS: BP 147/71
[2023-08-20] VITALS (7 sets, daily range): BP systolic 130–162; BP diastolic 52–73
[2023-08-20] MEDS ORDERED: FUROSEMIDE INJECTION 40 MG/4 ML VIAL ONE (02:29)
[2023-08-20] MEDS ORDERED: FUROSEMIDE INJECTION 40 MG/4 ML VIAL IVP ONE (02:30)
[2023-08-20] MEDS: inSUlin ASPART 1 UNIT/0.01 ML (PER UNIT) SC SCH ×4 (05:08→20:54)
[2023-08-20 05:52] LABS: BASOPHILS # (AUTO) 0.1 10^3/uL (0.0-0.1); BASOPHILS % (AUTO) 1 % (0-10); EOSINOPHILS # (AUTO) 0.1 10^3/uL (0.0-0.3); EOSINOPHILS % (AUTO) 1 % (0-10); HEMATOCRIT 30 % (40-54); HEMOGLOBIN 9.2 g/dL (13.3-17.7); LYMPHOCYTES # (AUTO) 0.7 10^3/uL (1.0-4.0); LYMPHOCYTES % (AUTO) 7 % (12-44); MEAN CORPUSCULAR HEMOGLOBIN 26 pg (25-34); MEAN CORPUSCULAR HGB CONC 31 g/dL (32-36); MEAN CORPUSCULAR VOLUME 83 fL (80-99); MEAN PLATELET VOLUME 10.9 fL (9.0-12.2); MONOCYTES # (AUTO) 0.7 10^3/uL (0.0-1.0); MONOCYTES % (AUTO) 8 % (0-12); NEUTROPHILS # (AUTO) 7.8 10^3/uL (1.8-7.8); NEUTROPHILS % (AUTO) 82 % (42-75); PLATELET COUNT 258 10^3/uL (130-400); WHITE BLOOD COUNT 9.5 10^3/uL (4.3-11.0)
[2023-08-20] MEDS: PIPERACILLIN/Tazobactam 4.5 GM in NS (IVPB) 100 ML 100 ML IV SCH ×3 (06:04→22:45)
[2023-08-20 06:10] LABS: POTASSIUM 3.5 MMOL/L (3.6-5.0)
[2023-08-20 06:11] LABS: CALCIUM 9.1 MG/DL (8.5-10.1)
[2023-08-20 06:15] LABS: CREATININE SERUM 1.8 MG/DL (0.60-1.30)
[2023-08-20 06:18] LABS: MAGNESIUM 1.8 MG/DL (1.6-2.4)
[2023-08-20] MEDS: POTASSIUM BICARB 20 MEQ effervescent TABLET PO SCH (06:23)
[2023-08-20] MEDS: POTASSIUM CHLORIDE 20 MEQ TABLET PO SCH (06:23)
[2023-08-20] MEDS: POTASSIUM CL 10MEQ/50ML IVPB 50 ML IV SCH (06:23)
[2023-08-20] MEDS: MAGNESIUM 1 GM/100 ML IVPB 100 ML IV SCH ×2 (06:25→10:15)
[2023-08-20] MEDS ORDERED: POTASSIUM CHLORIDE 20 MEQ TABLET PO ONE ×2 (07:00→09:00)
[2023-08-20] MEDS: APIXABAN 2.5 MG TABLET PO SCH ×2 (08:17→19:56)
[2023-08-20] MEDS: DOCUSATE SODIUM 100 MG CAPSULE PO SCH ×2 (08:17→19:56)
[2023-08-20] MEDS: GABAPENTIN 100 MG CAPSULE PO SCH ×2 (08:17→19:55)
[2023-08-20] MEDS: SENNOSIDES 8.6 MG TABLET PO SCH ×2 (08:17→19:56)
[2023-08-20] MEDS: CLOPIDOGREL 75 MG TABLET PO SCH (08:17)
[2023-08-20] MEDS ORDERED: inSUlin DETERMIR 1 UNIT/0.01 ML (CHARGE PER UNIT) SQ ONE (08:30)
[2023-08-20] MEDS: CALCITRIOL 0.25 MCG CAPSULE PO SCH (09:06)
[2023-08-20] MEDS: FUROSEMIDE INJECTION 40 MG/4 ML VIAL IVP SCH (09:07)
[2023-08-20] MEDS: MAGNESIUM OXIDE 400 MG TABLET PO SCH (09:07)
[2023-08-20] MEDS: amLODIPine 10 MG TABLET PO SCH (09:07)
[2023-08-20] MEDS: ALLOPURINOL 100 MG TABLET PO SCH (09:07)
--- NOTE | 2023-08-20 10:16 | Physical Therapy Daily Note ---
PT Daily Note-Current Subjective Pt found seated in recliner upon entry. Agreed to PT. Reports that his L knee is very sore. States that he stood up very little today. Does not rate pain. Pain Section J - Health Conditions 1. Rarely or not at all 2. Occasionally 3. Frequently 4. Almost constantly 8. Unable to answer Pain Effect on Sleep: 1 Pain Interference with Therapy: 1 Pain Interference w/Day-to-Day: 1 Mental Status Patient Orientation: Person, Place Attachments: Oxygen, IV 3L Transfers SCALE: Activities may be completed with or without assistive devices. 4-Eiswjkpxcd-qptpyhr completes the activity by him/herself with no assistance from a helper. 5-Set-up or Clean-up Assistance-helper sets up or cleans up; patient completes activity. [place] assists only prior to or following the activity. 4-Supervision or Touching Assistance-helper provides verbal cues and/or touching/steadying and/or contact guard assistance as patient completes activity. Assistance may be provided throughout the activity or intermittently. 3-Partial/Moderate Assistance-helper does LESS THAN HALF the effort. [place] lifts, holds or supports trunk or limbs, but provides less than half the effort. 2-Substantial/Maximal Assistance-helper does MORE THAN HALF the effort. [place] lifts or holds trunk or limbs and provides more than half the effort. 7-Nvybjlatu-gohocx does ALL the effort. Patient does none of the effort to complete the activity. Or, the assistance of 2 or more helpers is required for the patient to complete the activity. If activity was not attempted, code reason: 7-Patient Refused. 9-Not Applicable-not attempted and the patient did not perform the activity before the current illness, exacerbation or injury. 10-Not Attempted due to Environmental Limitations-(lack of equipment, weather restraints, etc.). 88-Not Attempted due to Medical Conditions or Safety Concerns. Sit to Stand (QC): 3 Weight Bearing Right Lower Extremity: Right Weight Bearing/Tolerated Left Lower Extremity: Left Weight Bearing/Tolerated Gait Training Does the Patient Walk?: Yes Distance: 50 Walk 10 feet (QC): 3 Walk 50 ft with 2 Turns(QC): 3 Gait Persons Needed: 1 Gait Assistive Device: FWW Assessment Current Status: Fair Progress Pt performs sit to stand transfer /c MIN lifting assistance. Ambulated 50 feet /c use of FWW. Required MIN assistance for steadying during ambulation due to occasional losses of balance. Pt uses step to pattern while ambulating and advances LLE first. Pt appears hesitant to put weight through LLE while advancing RLE. Displays poor heel strike on LLE due to inability to fully extend L knee. Pt demonstrated lateral trunk lean to L side as well as forward trunk posture. Increased fatigue reported during ambulation. Pt returned to recliner post-ambulation. Increased L knee soreness reported. Pt left in recliner post-treatment, call light in place, and all needs met. Continue to progress pt per POC. PT [employer] Goals Longterm Goals PT Longterm Goals Time Frame: Sep 08, 2023 Roll Left & Right (QC): 6 Sit to Lying (QC): 6 Lying-Sitting on Side/Bed(QC): 6 Sit to Stand (QC): 6 Toilet Transfer (QC): 6 Does the Patient Walk: Yes Walk 10 feet (QC): 6 Walk 50ft with 2 Turns (QC): 6 Walk 150 ft (QC): 4 1 Step (curb) (QC): 3 4 Steps (QC): 3 12 Steps (QC): 3 PT Plan Treatment/Plan Treatment Plan: Continue Plan of Care Treatment Plan: Bed Mobility, Education, Functional Activity [place], Functional Strength, Group Therapy, Gait, Safety, Therapeutic Exercise, Transfers Treatment Duration: Oct 03, 2023 Frequency: 6 times per week Estimated Hrs Per Day: .25 hour per day Patient and/or Family Agrees t: Yes Time Time In: 0949 Time Out: 1006 DATE: Aug 20, 2023 Total Billed Treatment Time: 17 Total Billed Treatment 1 visit GT x 1 LINDEN CRANDALL PHOTOGRAPHER P[employer]TRAIT Aug 20, 2023 10:16
[2023-08-20] MEDS: oxyCODONE IMMEDIATE RELEASE 5 MG TABLET PO PRN ×2 (10:24→19:56)
[2023-08-20] MEDS ORDERED: RT-ALBUTEROL SULF 2.5 MG/3 ML PRE-MIX VIAL INH PRN (10:30)
--- NOTE | 2023-08-20 11:13 | Progress Note - Ortho ---
Progress Note Subjective Date of Exam 08/20/23 Chief Complaint Left Leg Pain HPI/Events since last exam has been having ongoing pain, nursing reports some confusion that patient denies Review of Systems - Allergies: Coded Allergies: lisinopril (Verified Adverse Reaction, Unknown, affects kidneys, 07/02/22) metformin (Verified Adverse Reaction, Unknown, affects kidneys, 07/02/22) Home Meds Active Scripts Oxycodone Hcl (OXYIR TABLET) 5 Mg Tab, 10 MG PO Q4H PRN for PAIN-SEVERE (8-10) for 7 Days, #40 TAB 0 Refills Prov:HAKEEM VILLANUEVA MD 08/12/23 Apixaban (Eliquis) 2.5 Mg Tablet, 2.5 MG PO BID for 14 Days, #28 TAB 0 Refills Prov:HAKEEM VILLANUEVA MD 08/12/23 Reported Medications Insulin Glargine,Hum.rec.anlog (Insulin Glargine Solostar) 100 Unit/Ml (3 Ml) Insuln.pen, 50 UNIT SQ HS, EA 08/11/23 B6/Folic/B12/Coffee/Phosphatid (Neuriva Plus Brain Perform Cap) 1.7MG-400 Capsule, 1 EACH PO DAILY, CAP 08/11/23 Pioglitazone HCl (Pioglitazone HCl) 30 Mg Tablet, 30 MG PO DAILY, TAB 08/11/23 Insulin Aspart (Novolog Flexpen) 100 Unit/Ml (3 Ml) Solution, 35 UNITS SQ HS, EA 08/11/23 Insulin Aspart (Novolog Flexpen) 100 Unit/Ml (3 Ml) Solution, 30 UNITS SQ AC, EA 08/11/23 Losartan Potassium (Losartan Potassium) 50 Mg Tablet, 50 MG PO DAILY, TAB 12/03/22 Cyanocobalamin (Cyanocobalamin Injection) 1,000 Mcg/Ml Inj, 1000 MCG IM EVERY 3 WEEKS, EA 12/03/22 Testosterone Cypionate (Testosterone Cypionate) 200 Mg/Ml Vial, 200 MG IM EVERY 3 WEEKS, EA 12/03/22 Potassium Chloride (Klor-Con M10) 10 Meq Tab.er.prt, 30 MEQ PO BID, TAB TAKES 3 (10MEQ) TABS 12/03/22 Metoprolol Succinate (Metoprolol Succinate) 100 Mg Tab.er.24h, 50 MG PO HS, TAB TAKES OF A 100MG TAB 12/03/22 Calcitriol (Calcitriol) 0.25 Mcg Capsule, 0.25 MCG PO DAILY, CAP 07/02/22 Furosemide (Furosemide) 40 Mg Tablet, 40 MG PO DAILY, TAB 07/02/22 Pantoprazole Sodium (Pantoprazole Sodium) 40 Mg Tablet.dr, 40 MG PO BID, TAB 04/24/21 Clopidogrel Bisulfate (Clopidogrel) 75 Mg Tablet, 75 MG PO DAILY, TAB 04/24/21 Metoprolol Succinate (Metoprolol Succinate) 100 Mg Tab.er.24h, 100 MG PO DAILY, TAB 04/24/21 Cholecalciferol (Vitamin D3) (Vitamin D3) 125 Mcg Capsule, 125 MCG PO DAILY, CAP 04/24/21 Amlodipine Besylate (Amlodipine Besylate) 10 Mg Tablet, 10 MG PO DAILY, TAB 04/18/20 Allopurinol (Allopurinol) 100 Mg Tablet, 100 MG PO DAILY, TAB 04/18/20 Alogliptin Benzoate (Alogliptin) 12.5 Mg Tablet, 12.5 MG PO DAILY, TAB 04/18/20 Chlorthalidone (Chlorthalidone) 25 Mg Tablet, 25 MG PO DAILY, TAB 04/18/20 Magnesium Oxide (Magnesium Oxide) 400 Mg Tablet, 400 MG PO DAILY, TAB 08/20/17 [place]-3 Fatty Acids/Fish Oil (Fish Oil 1,000 mg Softgel) 1 Each Capsule, 1000 MG PO DAILY, CAP 08/20/17 Gabapentin (Gabapentin) 100 Mg Capsule, 200 MG PO BID, CAP TAKES 2 (100MG) CAPS 08/19/17 Atorvastatin Calcium (Atorvastatin Calcium) 20 Mg Tablet, 20 MG PO HS, TAB 08/19/17 Objective Exam L Knee: Incision with ongoing bloody drainage, edema of lower leg similar to yesterday, flexes and extends knee through limited range Vital Signs Vital Signs Date Time Temp Pulse Resp B/P (MAP) Pulse Ox O2 Delivery O2 Flow Rate FiO2 08/20/23 11:05 Nasal Cannula 2.00 08/20/23 10:13 36.7 78 96 28 08/20/23 08:00 Nasal Cannula 2.00 08/20/23 07:42 36.7 78 18 130/73 (92) 96 Nasal Cannula 2.00 08/20/23 07:23 72 08/20/23 03:11 36.7 86 18 150/67 (94) 97 Nasal Cannula 5.00 08/20/23 01:00 80 08/19/23 23:32 37.0 71 18 147/71 (96) 94 Room Air 08/19/23 20:00 Room Air 08/19/23 19:50 36.9 84 18 133/62 (85) 94 Room Air 08/19/23 19:00 90 08/19/23 16:00 37.1 75 18 134/90 (105) 96 Room Air 08/19/23 13:51 71 08/19/23 12:20 0/ I & O 08/20/23 07:00 Intake Total 3500 ml Output Total 2275 ml Balance 1225 ml Lab Results Laboratory Tests 08/19/23 11:34: Glucometer 89 08/19/23 16:47: Glucometer 59*L 08/19/23 17:30: Glucometer 116H 08/19/23 19:59: Glucometer 193H 08/20/23 04:59: Glucometer 200H 08/20/23 05:38: White Blood Count 9.5, Red Blood Count 3.60L, Hemoglobin 9.2L, Hematocrit 30L, Mean Corpuscular Volume 83, Mean Corpuscular Hemoglobin 26, Mean Corpuscular Hemoglobin Concent 31L, Red Cell Distribution Width 17.8H, Platelet Count 258, Mean Platelet Volume 10.9, Immature Granulocyte % (Auto) 1, Neutrophils (%) (Auto) 82H, Lymphocytes (%) (Auto) 7L, Monocytes (%) (Auto) 8, Eosinophils (%) (Auto) 1, Basophils (%) (Auto) 1, Neutrophils # (Auto) 7.8, Lymphocytes # (Auto) 0.7L, Monocytes # (Auto) 0.7, Eosinophils # (Auto) 0.1, Basophils # (Auto) 0.1, Immature Granulocyte # (Auto) 0.1, Sodium Level 138, Potassium Level 3.5L, Chloride Level 103, Carbon Dioxide Level 22, Anion Gap 13, Blood Urea Nitrogen 34H, Creatinine 1.80H, Estimat Glomerular Filtration Rate 38, BUN/Creatinine Ratio 19, Glucose Level 208H, Calcium Level 9.1, Magnesium Level 1.8 Microbiology 08/18/23 Urine Culture - Preliminary, Resulted Enterococcus faecalis Susceptibility To Follow 08/18/23 Blood Culture - Preliminary, Resulted Assessment and Plan Assessment Left Leg Cellulitis Left TKA with significant immobility Problem List Left Leg Cellulitis Left TKA with significant immobility Plan Local wound care PT/OT DVT Prophylaxis Extended care versus IRF Final Diagonsis Left Leg Cellulitis Left TKA with significant immobility Level of the visit: Level 3 (global) Focused Exam Lactate Level 08/18/23 14:20: Lactic Acid Level 1.20 HAKEEM VILLANUEVA MD Aug 20, 2023 11:13
--- NOTE | 2023-08-20 14:39 | Progress Note - Hospitalist ---
SHAYNE DOUGLAS 08/20/23 1439: Subjective HPI/CC On Admission Date Seen by Provider: Aug 20, 2023 Time Seen by Provider: 09:00 Severe Cellulitis of L lower leg Subjective/Events-last exam Geovany was seated in his recliner when I visited him this morning. He was alert and oriented but mentioned seeing cats and cockroaches in the room. His reported he has a history of dementia. His oxygen saturation declined to 84% last night and he reportedly had coarse lung sounds. This is likely to fluid overload. Pt was placed on lasix and 2L O2 NC. Patient denied shortness of breath. His L knee replacement incisional site is still bleeding. Wound care has been seeing him. He describes his pain as a 10/10. There is still significant erythema of the L lower leg with severe edema. Honey crusted lesions have started to scab over. PT saw him and he was able to walk 50 feet with some help. Geovany was reminded to elevate L leg in order to decrease swelling. Hgb and Hct slightly decreasing. Iron studies indicated. Review of Systems General: No Chills, No Night Sweats, No Malaise HEENT: No Head Aches, No Visual Changes Pulmonary: No Cough, No Pleuritic Chest Pain Cardiovascular: Edema (Severe L Lower leg); No: Chest Pain, Palpitations Gastrointestinal: No: Nausea, Vomiting, Abdominal Pain Genitourinary: No Dysuria; Frequency Musculoskeletal: leg pain (L knee and L lower leg), foot pain (L foot); No: neck pain, shoulder pain Neurological: Weakness, Confusion (hallucinating); No: Numbness, Seizures Focused Exam Lactate Level 08/18/23 14:20: Lactic Acid Level 1.20 Respiratory: Chest Non Tender, Normal Breath Sounds, No Accessory Muscle Use, No Respiratory Distress Cardiovascular: Regular Rate, Rhythm; No No Edema (Edema is 4+ in L foot and 3+ in L Lower Leg); Normal Peripheral Pulses Skin: No normal color (erythematous), No cool; ecchymosis (posterior aspect of L leg), ulcerations (3 shallow ulcerations on L lower leg), other (skin feels tight and constricted) Objective Exam Vital Signs Vital Signs Date Time Temp Pulse Resp B/P (MAP) Pulse Ox O2 Delivery O2 Flow Rate FiO2 08/20/23 12:24 78 08/20/23 11:57 36.8 16 145/52 (83) 97 Room Air 08/20/23 11:05 2.00 08/20/23 10:13 28 Capillary Refill : Less Than 3 Seconds General Appearance: WD/WN, Chronically ill, Obese HEENT: PERRL/EOMI; No Photophobia, No Scleral Icterus (L), No Scleral Icterus (R) Neck: Full Range of Motion, Non Tender Respiratory: Chest Non Tender, Normal Breath Sounds, No Accessory Muscle Use, No Respiratory Distress Cardiovascular: Regular Rate, Rhythm, No Murmur Gastrointestinal: Normal Bowel Sounds, Non Tender, Soft Rectal: Deferred Back: No CVA Tenderness, No Vertebral Tenderness Extremity: No Normal Range of Motion (Limited ROM of L Lower leg hip extension and knee flexion), No Non Tender; Inflammation, Pedal Edema (4+ L foot), Swelling Neurologic/Psychiatric: Alert, Oriented x3, Disoriented (confusion) Skin: Erythema (L lower Leg), Petechia (Posterior aspect of L LE), Other (3 shallow ulcerations on L east) Lymphatic: No Adenopathy Results/Procedures Lab Laboratory Tests 08/20/23 05:38 Patient resulted labs reviewed. Imaging: Reviewed Imaging Films, Reviewed Imaging Report Assessment/Plan Assessment and Plan Assess & Plan/Chief Complaint 1. Acute Cellulitis of left leg - IV vancomyacin tazobactam - PT as tolerated - Elevate L lower leg as tolerated 2. Status post L knee replacement pain control - oxycodone 5mg q4h prn, hydromorphone 0.25mg q2h prn DVT prophylaxis - apixaban 2.5mg BID, clopidegrel 75mg PO 3. DM Type II - Insulin aspart (sliding scale), insulin detemir 40 units, atrovastatin 4. HTN -metoprolol 5. Cardiovascular Disease - amlodipine 6. Diabetic neuropathy - 200mg gabapentin 7. CKD - stage 3 IV fluids 8. Shortness of Breath - Albuterol inhaler - 2L O2 NC - DC fluids - Lasix for fluid overload 9. Low Hgb and Hct - iron studies - TIBC, unsaturated IBC, transferrin saturation, ferritin levels, Vitamin B12, Folate - Re-Check CBC 10. Dementia - reassurance in confusion - refer to PCP Time spent with patient (mins): 15 Diagnosis/Problems Diagnosis/Problems (1) HTN (hypertension) Status: Chronic Qualifiers: Qualified Codes: I10 - Essential (primary) hypertension (2) T2DM (type 2 diabetes mellitus) Status: Chronic (3) Stage 3a chronic kidney disease Status: Chronic (4) PVD (peripheral vascular disease) Status: Chronic (5) Cellulitis of lower leg Status: Acute (6) Postoperative pain Status: Acute (7) Diabetic neuropathy (8) Dementia PRAVEEN ANDERSON MD 08/20/23 1600: Subjective HPI/CC On Admission Time Seen by Provider: 11:50 Assessment/Plan Assessment and Plan Assess & Plan/Chief Complaint Continue antibiotics for cellulitis. Encouraged leg elevation. Also with delircale patel on underlying dementia which has improved on my exam. IRU accepted, pending insurance. Diagnosis/Problems Diagnosis/Problems (1) Cellulitis of lower leg Status: Acute (2) HTN (hypertension) Status: Chronic Qualifiers: Qualified Codes: I10 - Essential (primary) hypertension (3) T2DM (type 2 diabetes mellitus) Status: Chronic (4) Stage 3a chronic kidney disease Status: Chronic (5) PVD (peripheral vascular disease) Status: Chronic (6) Postoperative pain Status: Acute (7) Diabetic neuropathy (8) Dementia (9) Delirium due to multiple etiologies Status: Acute Supervisory-Addendum Brief Verification & Attestation Participated in pt care: history, MDM, physical Personally performed: exam, history, MDM, supervision of care Care discussed with: Medical Student Procedures: n/a A medical student performed and documented this service in my presence. I reviewed and verified all information documented by the medical student and made modifications to such information, when appropriate. I personally performed the physical exam and medical decision making. SHAYNE DOUGLAS Aug 20, 2023 14:39 PRAVEEN ANDERSON MD Aug 20, 2023 16:00
--- NOTE | 2023-08-20 15:11 | Occ Therapy Progress Note ---
Therapy Progress Note Patient in recliner, refuses therapy. Patient reports the Dr who is young w/ ankle scrubs, tennis shoes, he is short w/ dark spikey hair told him..:" the best thing to do is sit in this recliner or bed and keep this leg up. He said I'm going home Thursday". When OT attempted to clarify further patient spouse and two young men in the room confirmed that is what they heard the Dr. say. OT attempted to educate patient on importance of movement and activity. Family re iterated what the Dr said and patient refused OT today. OT notified R[place] and OT will attempt Thursday to continue therapy PATRIZIA GALVAN OT Aug 20, 2023 15:11
--- NOTE | 2023-08-20 15:31 | Progress Note ---
Subjective Date Seen by a Provider: Aug 20, 2023 Time Seen by a Provider: 15:00 Subjective/Events-last exam doing well. no fever/chills. no new areas redness/erythema. Focused Exam Lactate Level 08/18/23 14:20: Lactic Acid Level 1.20 Objective Exam Vital Signs Date Time Temp Pulse Resp B/P (MAP) Pulse Ox O2 Delivery O2 Flow Rate FiO2 08/20/23 12:24 78 08/20/23 11:57 36.8 73 16 145/52 (83) 97 Room Air 08/20/23 11:05 Nasal Cannula 2.00 08/20/23 10:13 36.7 78 96 28 08/20/23 08:00 Nasal Cannula 2.00 08/20/23 07:42 36.7 78 18 130/73 (92) 96 Nasal Cannula 2.00 08/20/23 07:23 72 08/20/23 03:11 36.7 86 18 150/67 (94) 97 Nasal Cannula 5.00 08/20/23 01:00 80 08/19/23 23:32 37.0 71 18 147/71 (96) 94 Room Air 08/19/23 20:00 Room Air 08/19/23 19:50 36.9 84 18 133/62 (85) 94 Room Air 08/19/23 19:00 90 08/19/23 16:00 37.1 75 18 134/90 (105) 96 Room Air I & O 08/20/23 07:00 Intake Total 3500 ml Output Total 2275 ml Balance 1225 ml Capillary Refill : Less Than 3 Seconds General Appearance: No Apparent Distress HEENT: PERRL/EOMI Neck: Full Range of Motion Respiratory: Chest Non Tender, Rhonci Cardiovascular: Regular Rate, Rhythm Gastrointestinal: normal bowel sounds, non tender, soft Extremity: Normal Capillary Refill Neurologic/Psychiatric: Alert, Oriented x3 Skin: Normal Color Lymphatic: No Adenopathy Results Lab Laboratory Tests 08/19/23 16:47: Glucometer 59*L 08/19/23 17:30: Glucometer 116H 08/19/23 19:59: Glucometer 193H 08/20/23 04:59: Glucometer 200H 08/20/23 05:38: White Blood Count 9.5, Red Blood Count 3.60L, Hemoglobin 9.2L, Hematocrit 30L, Mean Corpuscular Volume 83, Mean Corpuscular Hemoglobin 26, Mean Corpuscular Hemoglobin Concent 31L, Red Cell Distribution Width 17.8H, Platelet Count 258, Mean Platelet Volume 10.9, Immature Granulocyte % (Auto) 1, Neutrophils (%) (Auto) 82H, Lymphocytes (%) (Auto) 7L, Monocytes (%) (Auto) 8, Eosinophils (%) (Auto) 1, Basophils (%) (Auto) 1, Neutrophils # (Auto) 7.8, Lymphocytes # (Auto) 0.7L, Monocytes # (Auto) 0.7, Eosinophils # (Auto) 0.1, Basophils # (Auto) 0.1, Immature Granulocyte # (Auto) 0.1, Sodium Level 138, Potassium Level 3.5L, Chloride Level 103, Carbon Dioxide Level 22, Anion Gap 13, Blood Urea Nitrogen 34H, Creatinine 1.80H, Estimat Glomerular Filtration Rate 38, BUN/Creatinine Ratio 19, Glucose Level 208H, Calcium Level 9.1, Magnesium Level 1.8 08/20/23 11:09: Glucometer 223H Microbiology 08/18/23 Urine Culture - Preliminary, Resulted Enterococcus faecalis Susceptibility To Follow 08/18/23 Blood Culture - Preliminary, Resulted Assessment/Plan Assessment/Plan Assess & Plan/Chief Complaint bilateral LE chronic venous insufficiency with left LE cellulitis. cont elevation and abx. [place] MD Aug 20, 2023 15:31
[2023-08-20] MEDS ORDERED: TROUGH ORDER-PHARMACY XX NR (16:00)
[2023-08-20] MEDS: VANCOMYCIN 1 GM/NS 250 ML IVPB IV SCH ×2 (16:59)
[2023-08-20] MEDS: MELATONIN 3 MG TABLET PO PRN (19:56)
[2023-08-20] MEDS: RT-ALBUTEROL SULF 2.5 MG/3 ML PRE-MIX VIAL INH SCH (20:54)
[2023-08-20] MEDS ORDERED: inSUlin DETERMIR 1 UNIT/0.01 ML (CHARGE PER UNIT) SQ SCH (21:00)
[2023-08-21 04:31] VITALS: BP 128/80
[2023-08-21 05:40] LABS: BASOPHILS # (AUTO) 0.1 10^3/uL (0.0-0.1); BASOPHILS % (AUTO) 1 % (0-10); EOSINOPHILS # (AUTO) 0.2 10^3/uL (0.0-0.3); EOSINOPHILS % (AUTO) 2 % (0-10); HEMATOCRIT 28 % (40-54); HEMOGLOBIN 8.8 g/dL (13.3-17.7); LYMPHOCYTES # (AUTO) 0.7 10^3/uL (1.0-4.0); LYMPHOCYTES % (AUTO) 9 % (12-44); MEAN CORPUSCULAR HEMOGLOBIN 26 pg (25-34); MEAN CORPUSCULAR HGB CONC 31 g/dL (32-36); MEAN CORPUSCULAR VOLUME 83 fL (80-99); MEAN PLATELET VOLUME 10.9 fL (9.0-12.2); MONOCYTES # (AUTO) 0.7 10^3/uL (0.0-1.0); MONOCYTES % (AUTO) 8 % (0-12); NEUTROPHILS # (AUTO) 6.5 10^3/uL (1.8-7.8); NEUTROPHILS % (AUTO) 79 % (42-75); PLATELET COUNT 281 10^3/uL (130-400); WHITE BLOOD COUNT 8.2 10^3/uL (4.3-11.0)
[2023-08-21 05:51] LABS: CALCIUM 9.1 MG/DL (8.5-10.1); CREATININE SERUM 1.7 MG/DL (0.60-1.30); POTASSIUM 3.4 MMOL/L (3.6-5.0)
[2023-08-21] MEDS: POTASSIUM BICARB 20 MEQ effervescent TABLET PO SCH (06:24)
[2023-08-21] MEDS: MAGNESIUM 1 GM/100 ML IVPB 100 ML IV SCH (06:24)
[2023-08-21] MEDS: POTASSIUM CL 10MEQ/50ML IVPB 50 ML IV SCH (06:24)
[2023-08-21] MEDS: POTASSIUM CHLORIDE 20 MEQ TABLET PO SCH (06:24)
[2023-08-21] MEDS: PIPERACILLIN/Tazobactam 4.5 GM in NS (IVPB) 100 ML 100 ML IV SCH (06:43)
[2023-08-21] MEDS: inSUlin ASPART 1 UNIT/0.01 ML (PER UNIT) SC SCH ×2 (06:43→10:51)
[2023-08-21] MEDS ORDERED: POTASSIUM CHLORIDE 20 MEQ TABLET PO ONE (07:00)
[2023-08-21 07:12] VITALS: BP 156/73
[2023-08-21] MEDS: RT-ALBUTEROL SULF 2.5 MG/3 ML PRE-MIX VIAL INH SCH (07:53)
[2023-08-21] MEDS: MAGNESIUM OXIDE 400 MG TABLET PO SCH (08:06)
[2023-08-21] MEDS: SENNOSIDES 8.6 MG TABLET PO SCH (08:06)
[2023-08-21] MEDS: CALCITRIOL 0.25 MCG CAPSULE PO SCH (08:06)
[2023-08-21] MEDS: ALLOPURINOL 100 MG TABLET PO SCH (08:07)
[2023-08-21] MEDS: amLODIPine 10 MG TABLET PO SCH (08:07)
[2023-08-21] MEDS: GABAPENTIN 100 MG CAPSULE PO SCH (08:07)
[2023-08-21] MEDS: FUROSEMIDE INJECTION 40 MG/4 ML VIAL IVP SCH (08:08)
[2023-08-21] MEDS: APIXABAN 2.5 MG TABLET PO SCH (08:08)
[2023-08-21] MEDS: DOCUSATE SODIUM 100 MG CAPSULE PO SCH (08:08)
[2023-08-21] MEDS: CLOPIDOGREL 75 MG TABLET PO SCH (08:08)
[2023-08-21] MEDS ORDERED: FOLIC ACID 1 MG TAB PO SCH (09:00)
--- NOTE | 2023-08-21 09:09 | Progress Note - Hospitalist ---
SHAYNE DOUGLAS 08/21/23 0909: Subjective HPI/CC On Admission Date Seen by Provider: Aug 21, 2023 Time Seen by Provider: 08:45 Severe Cellulitis of L lower leg Subjective/Events-last exam Geovany was lying in bed when I arrived this morning. He denied shortness of breath. He is on 1L NC. He seemed more oriented and was not having hallucinationg this morning. His L leg swelling has gone down and is slightly less erythematous. The 3 lesions on his left east are starting to scab over. There is still edema of the L leg and foot but this has started to reduce. Purpura on the posterior aspect of the L lower extremity has started clearing. He had his foot propped up on 1 pillow - got him another one. Geovany rates his pain as still a 9-10/10. His Hgb and Hct are still trending downward. Iron alli dies came back showing low TIBC and low Folate. He refused PT yesterday due to thinking that he had to have his leg propped up. Was told to attempt PT today. is at bedside. Review of Systems General: No Chills, No Night Sweats HEENT: No Head Aches, No Visual Changes, No Eye Pain, No Ear Pain Pulmonary: No Cough, No Pleuritic Chest Pain Cardiovascular: No: Chest Pain, Palpitations Gastrointestinal: No: Nausea, Vomiting, Abdominal Pain Genitourinary: No Dysuria, No Incontinence Musculoskeletal: No: neck pain, shoulder pain Neurological: Weakness, Numbness; No: Confusion Focused Exam Lactate Level 08/18/23 14:20: Lactic Acid Level 1.20 Respiratory: Chest Non Tender, Lungs Clear, Normal Breath Sounds Cardiovascular: Regular Rate, Rhythm; No No Edema (2+ pitting edema in L lower east, 3+ PE in L foot); Diastolic Murmur (Catron best in mitral area) Skin: normal color (erythema of L lower extremity), warm/dry, ecchymosis (purpura of L LE), other (3 lesions on L east) Objective Exam Vital Signs Vital Signs Date Time Temp Pulse Resp B/P (MAP) Pulse Ox O2 Delivery O2 Flow Rate FiO2 08/21/23 11:08 36.1 64 20 147/67 (93) 97 Nasal Cannula 1.00 08/20/23 20:54 21 Capillary Refill : Less Than 3 Seconds General Appearance: Obese HEENT: PERRL/EOMI, TMs Normal; No Scleral Icterus (L), No Scleral Icterus (R) Neck: Full Range of Motion, Non Tender Respiratory: Chest Non Tender, Lungs Clear, Normal Breath Sounds, No Accessory Muscle Use Cardiovascular: Regular Rate, Rhythm, Diastolic Murmur (heard in Mitral area) Gastrointestinal: Non Tender, Soft; No Distended, No Guarding Rectal: Deferred Back: No CVA Tenderness, No Vertebral Tenderness Extremity: No Normal Range of Motion (Limited L knee flexion and and L hip extension), No Non Tender (tenderness); Inflammation, Pedal Edema (3+ L Lower foot), Swelling Neurologic/Psychiatric: Alert, Oriented x3 Skin: Warm/Dry; No Diaphoresis; Other (see HPI) Lymphatic: No Adenopathy Results/Procedures Lab Laboratory Tests 08/21/23 05:12 Patient resulted labs reviewed. Imaging: Reviewed Imaging Films, Reviewed Imaging Report Assessment/Plan Assessment and Plan Assess & Plan/Chief Complaint 1. Acute Cellulitis of left leg - IV vancomyacin tazobactam - PT as tolerated - Elevate L lower leg as tolerated 2. Status post L knee replacement pain control - oxycodone 5mg q4h prn, hydromorphone 0.25mg q2h prn DVT prophylaxis - apixaban 2.5mg BID, clopidegrel 75mg PO 3. DM Type II - Insulin aspart (sliding scale), insulin detemir 40 units, atrovastatin 4. HTN -metoprolol 5. Cardiovascular Disease - amlodipine 6. Diabetic neuropathy - 200mg gabapentin 7. CKD - stage 3 IV fluids 8. Shortness of Breath - Albuterol inhaler - 2L O2 NC - Lasix for fluid overload 9.Folate Deficiency -Folate supplementation 10. Dementia - reassurance in confusion - refer to PCP Diagnosis/Problems Diagnosis/Problems (1) HTN (hypertension) Status: Chronic Qualifiers: Qualified Codes: I10 - Essential (primary) hypertension (2) T2DM (type 2 diabetes mellitus) Status: Chronic (3) Stage 3a chronic kidney disease Status: Chronic (4) PVD (peripheral vascular disease) Status: Chronic (5) Cellulitis of lower leg Status: Acute (6) Postoperative pain Status: Acute (7) Diabetic neuropathy (8) Dementia (9) Folate deficiency Status: Acute (10) Delirium due to multiple etiologies Status: Acute PRAVEEN ANDERSON MD 08/21/23 1713: Subjective HPI/CC On Admission Time Seen by Provider: 10:20 Assessment/Plan Assessment and Plan Assess & Plan/Chief Complaint Cellulitis improving. Continue antibiotics. Continue Lasix. Elevate leg while seated. Continue PT/OT. Transferring to inpatient rehab today. Diagnosis/Problems Diagnosis/Problems (1) Cellulitis of lower leg Status: Acute (2) HTN (hypertension) Status: Chronic Qualifiers: Qualified Codes: I10 - Essential (primary) hypertension (3) T2DM (type 2 diabetes mellitus) Status: Chronic (4) Stage 3a chronic kidney disease Status: Chronic (5) PVD (peripheral vascular disease) Status: Chronic (6) Postoperative pain Status: Acute (7) Diabetic neuropathy (8) Dementia (9) Folate deficiency Status: Acute (10) Delirium due to multiple etiologies Status: Acute Supervisory-Addendum Brief Verification & Attestation Participated in pt care: history, MDM, physical Personally performed: exam, history, MDM, supervision of care Care discussed with: Medical Student Procedures: n/a A medical student performed and documented this service in my presence. I reviewed and verified all information documented by the medical student and made modifications to such information, when appropriate. I personally performed the physical exam and medical decision making. SHAYNE DOUGLAS Aug 21, 2023 09:09 PRAVEEN ANDERSON MD Aug 21, 2023 17:13
[2023-08-21] MEDS: oxyCODONE IMMEDIATE RELEASE 5 MG TABLET PO PRN (09:30)
[2023-08-21 11:08] VITALS: BP 147/67
--- NOTE | 2023-08-21 11:08 | Occupational Ther Daily Note ---
OT Current Status-Daily Note Subjective Patient and report clarification of Dr. Cronin's conversation and patient is now agreeable to work w/ therapy. Mental Status/Objective Patient Orientation: Person, Confused, Place ADL-Treatment Focus of ADL transfers, use of recliner lever, functional reach to items on tray, push/pull rolling bed tray and simulated pulling LB garments up/down from waist to knees in standing to simulate dressing skills Therapy Code Descriptions/Definitions Functional [place] Measure: 0=Not Assessed/NA 4=Minimal Assistance 1=Total Assistance 5=Supervision or Setup 2=Maximal Assistance 6=Modified [place] 3=Moderate Assistance 7=Complete IndependenceSCALE: Activities may be completed with or without assistive devices. 4-Bhvacnvdwo-zkoyihn completes the activity by him/herself with no assistance from a helper. 5-Set-up or Clean-up Assistance-helper sets up or cleans up; patient completes activity. [place] assists only prior to or following the activity. 4-Supervision or Touching Assistance-helper provides verbal cues and/or touching/steadying and/or contact guard assistance as patient completes activity. Assistance may be provided throughout the activity or intermittently. 3-Partial/Moderate Assistance-helper does LESS THAN HALF the effort. [place] lifts, holds or supports trunk or limbs, but provides less than half the effort. 2-Substantial/Maximal Assistance-helper does MORE THAN HALF the effort. [place] lifts or holds trunk or limbs and provides more than half the effort. 1-Qhybqedud-kgevhe does ALL the effort. Patient does none of the effort to complete the activity. Or, the assistance of 2 or more helpers is required for the patient to complete the activity. If activity was not attempted, code reason: 7-Patient Refused. 9-Not Applicable-not attempted and the patient did not perform the activity before the current illness, exacerbation or injury. 10-Not Attempted due to Environmental Limitations-(lack of equipment, weather restraints, etc.). 88-Not Attempted due to Medical Conditions or Safety Concerns. Eating (QC): 6 Oral Hygiene (QC): 5 Shower/Bathe Self (QC): 7 (declined) Upper Body Dressing (QC): 5 Lower Body Dressing (QC): 3 On/Off Footwear: 3 Toileting Hygiene (QC): 3 Toilet Transfer (QC): 3 Education OT Patient Education: Correct positioning, Exercise program, Instructions to caregiver, Modified ADL techniques, Progress toward Goal/Update tx plan, Purpose of tx/functional activities, Reviewed precautions, Rehab process, Safety issues, Transfer techniques, Use of adapted equipment Teaching Recipient: Patient, Family Teaching Methods: Demonstration, Discussion Response to Teaching: Verbalize Understanding, Reinforcement Needed OT Senior Living Goals Senior Living Goals Eating (QC): 6 Oral Hygiene (QC): 6 Toileting Hygiene (QC): 6 Shower/Bathe Self (QC): 6 Upper Body Dressing (QC): 6 Lower Body Dressing (QC): 6 On/Off Footwear (QC): 6 1=Demonstrate adherence to instructed precautions during ADL tasks. 2=Patient will verbalize/demonstrate understanding of assistive d evices/modifications for ADL. 3=Patient will improve strength/tolerance for activity to enable patient to perform ADL's. OT Education/Plan Problem List/Assessment Assessment: Decreased Activ Tolerance, Decreased Safety Aware, Decreased UE Strength, Impaired Bed Mobility, Impaired Cognition, Impaired Coordination, Impaired Funct Balance, Impaired Self-Care Skills Discharge Recommendations Plan/Recommendations: Continue POC Treatment Plan/Plan of Care Treatment,Training & Education: Yes Patient would benefit from OT for education, treatment and training to promote independence in ADL's, mobility, safety and/or upper extremity function for ADL's. Plan of Care: ADL Retraining, Functional Mobility, Group Exercise/Act as Ind, UE Funct Exercise/Act Treatment Duration: Aug 24, 2023 Frequency: 3 times per week (3-5 times per week) Estimated Hrs Per Day: .25 hour per day Agreement: Yes Rehab Potential: Fair Time Start Time: 10:56 Stop Time: 11:09 DATE: Aug 21, 2023 Total Time Billed (hr/min): 13 Billed Treatment Time ADL 13 min PATRIZIA GALVAN OT Aug 21, 2023 11:08
--- NOTE | 2023-08-21 11:11 | Physical Therapy Daily Note ---
PT Daily Note-Current Subjective Patient agrees to PT after Dr. Cronin discussed with patient and spouse on importance of exercise and ambulation. Pain Numeric Pain Scale: 5-Moderate Pain Location: Left Location Body Site: Knee Pain Description: Acute Section J - Health Conditions 1. Rarely or not at all 2. Occasionally 3. Frequently 4. Almost constantly 8. Unable to answer Pain Effect on Sleep: 1 Pain Interference with Therapy: 1 Pain Interference w/Day-to-Day: 1 Transfers SCALE: Activities may be completed with or without assistive devices. 4-Lfwkoqdcyn-fnnijki completes the activity by him/herself with no assistance from a helper. 5-Set-up or Clean-up Assistance-helper sets up or cleans up; patient completes activity. [place] assists only prior to or following the activity. 4-Supervision or Touching Assistance-helper provides verbal cues and/or touching/steadying and/or contact guard assistance as patient completes activity. Assistance may be provided throughout the activity or intermittently. 3-Partial/Moderate Assistance-helper does LESS THAN HALF the effort. [place] lifts, holds or supports trunk or limbs, but provides less than half the effort. 2-Substantial/Maximal Assistance-helper does MORE THAN HALF the effort. [place] lifts or holds trunk or limbs and provides more than half the effort. 5-Bghafhxtn-avltgb does ALL the effort. Patient does none of the effort to com plete the activity. Or, the assistance of 2 or more helpers is required for the patient to complete the activity. If activity was not attempted, code reason: 7-Patient Refused. 9-Not Applicable-not attempted and the patient did not perform the activity before the current illness, exacerbation or injury. 10-Not Attempted due to Environmental Limitations-(lack of equipment, weather restraints, etc.). 88-Not Attempted due to Medical Conditions or Safety Concerns. Sit to Stand (QC): 4 Chair/Ctt-hi-Sxjhl Xfer(QC): 4 Weight Bearing Right Lower Extremity: Right Weight Bearing/Tolerated Left Lower Extremity: Left Weight Bearing/Tolerated Gait Training Distance: 100' Walk 10 feet (QC): 4 Walk 50 ft with 2 Turns(QC): 4 Gait Assistive Device: FWW slow, step to gait sequence/VC's for body placement in FWW Exercises Supine Ex: Ankle pumps, Quad Set, Heel Slides, Straight leg raise Supine Reps: 10 Seated Therapy Exercises: Long arc quads Seated Reps: 10 Assessment Patient tolerated increase in activity and remains up in recliner with bilateral LE elevated. Patient instructed to ambulate to restroom to increase activity. Patient voices understanding. PT Manager Family Goals Manager Family Goals PT Manager Family Goals Time Frame: Sep 08, 2023 Roll Left & Right (QC): 6 Sit to Lying (QC): 6 Lying-Sitting on Side/Bed(QC): 6 Sit to Stand (QC): 6 Toilet Transfer (QC): 6 Does the Patient Walk: Yes Walk 10 feet (QC): 6 Walk 50ft with 2 Turns (QC): 6 Walk 150 ft (QC): 4 1 Step (curb) (QC): 3 4 Steps (QC): 3 12 Steps (QC): 3 PT Plan Treatment/Plan Treatment Plan: Continue Plan of Care Treatment Plan: Bed Mobility, Education, Functional Activity [place], Functional Strength, Group Therapy, Gait, Safety, Therapeutic Exercise, Transfers Treatment Duration: Oct 03, 2023 Frequency: 6 times per week Estimated Hrs Per Day: .25 hour per day Patient and/or Family Agrees t: Yes Time Time In: 1020 Time Out: 1043 DATE: Aug 21, 2023 Total Billed Treatment Time: 23 Total Billed Treatment 1 visit EX 10 GT 13 min [place] MCCARTHY PT Aug 21, 2023 11:10
[2023-08-21 13:17] VITALS: BP 147/67
--- NOTE | 2023-08-21 17:35 | Discharge Summary ---
Discharge Summary Hospital Course Problems/Dx: (1) Cellulitis of lower leg Status: Acute (2) HTN (hypertension) Status: Chronic Qualifiers: Qualified Codes: I10 - Essential (primary) hypertension (3) T2DM (type 2 diabetes mellitus) Status: Chronic (4) Stage 3a chronic kidney disease Status: Chronic (5) PVD (peripheral vascular disease) Status: Chronic (6) Postoperative pain Status: Acute (7) Diabetic neuropathy (8) Dementia (9) Folate deficiency Status: Acute (10) Delirium due to multiple etiologies Status: Acute Hospital Course Date of Admission: Aug 18, 2023 at 16:14 Admission Diagnosis : Cellulitis of the left lower leg Family Physician/Provider: Nella Grove DO Date of Discharge: 08/21/23 Discharge Diagnosis: Cellulitis of the left lower leg Hospital Course: Geovany Wilcox is a 77 year old male who was admitted with left lower extremity cellu litis. He recently had a left total knee arthroplasty.. He also has uncontrolled T2DM, CKD, and PAD which complicated his course. He was treated with IV antibiotics. He also required IV Lasix. His cellulitis and swelling improved. He had some mild anemia and was found to be folic acid deficient and was started on folate supplementation. He was debilitated. He worked with PT and OT. He was discharged to inpatient rehab for ongoing skilled therapy needs as well as continued antibiotics and diuretics. Labs and Pending Lab Test: Laboratory Tests 08/20/23 20:32: Glucometer 277H 08/21/23 05:12: White Blood Count 8.2, Red Blood Count 3.40L, Hemoglobin 8.8L, Hematocrit 28L, Mean Corpuscular Volume 83, Mean Corpuscular Hemoglobin 26, Mean Corpuscular Hemoglobin Concent 31L, Red Cell Distribution Width 17.9H, Platelet Count 281, Mean Platelet Volume 10.9, Immature Granulocyte % (Auto) 1, Neutrophils (%) (Auto) 79H, Lymphocytes (%) (Auto) 9L, Monocytes (%) (Auto) 8, Eosinophils (%) (Auto) 2, Basophils (%) (Auto) 1, Neutrophils # (Auto) 6.5, Lymphocytes # (Auto) 0.7L, Monocytes # (Auto) 0.7, Eosinophils # (Auto) 0.2, Basophils # (Auto) 0.1, Immature Granulocyte # (Auto) 0.1, Sodium Level 141, Potassium Level 3.4L, Chloride Level 104, Carbon Dioxide Level 26, Anion Gap 11, Blood Urea Nitrogen 30H, Creatinine 1.70H, Estimat Glomerular Filtration Rate 41, BUN/Creatinine Ratio 18, Glucose Level 213H, Calcium Level 9.1, Magnesium Level 2.0 08/21/23 10:47: Glucometer 238H Microbiology 08/18/23 Urine Culture - Final, Complete Enterococcus faecalis 08/18/23 Blood Culture - Preliminary, Resulted Home Meds Active Oxyir Tablet (Oxycodone HCl) 5 Mg Tab 10 Mg PO Q4H PRN 7 Days Eliquis (Apixaban) 2.5 Mg Tablet 2.5 Mg PO BID 14 Days Reported Insulin Glargine Solostar (Insulin Glargine,Hum.rec.anlog) 100 Unit/Ml (3 Ml) Insuln.pen 50 Unit SQ HS Neuriva Plus Brain Perform Cap (B6/Folic/B12/Coffee/Phosphatid) 1.7MG-400 Capsule 1 Each PO DAILY Pioglitazone HCl 30 Mg Tablet 30 Mg PO DAILY Novolog Flexpen (Insulin Aspart) 100 Unit/Ml (3 Ml) Solution 35 Units SQ HS Novolog Flexpen (Insulin Aspart) 100 Unit/Ml (3 Ml) Solution 30 Units SQ AC Losartan Potassium 50 Mg Tablet 50 Mg PO DAILY Cyanocobalamin Injection (Cyanocobalamin) 1,000 Mcg/Ml Inj 1,000 Mcg IM EVERY 3 WEEKS Testosterone Cypionate 200 Mg/Ml Vial 200 Mg IM EVERY 3 WEEKS Klor-Con M10 (Potassium Chloride) 10 Meq Tab.er.prt 30 Meq PO BID TAKES 3 (10MEQ) TABS Metoprolol Succinate 100 Mg Tab.er.24h 50 Mg PO HS TAKES OF A 100MG TAB Calcitriol 0.25 Mcg Capsule 0.25 Mcg PO DAILY Furosemide 40 Mg Tablet 40 Mg PO DAILY Pantoprazole Sodium 40 Mg Tablet.dr 40 Mg PO BID Clopidogrel (Clopidogrel Bisulfate) 75 Mg Tablet 75 Mg PO DAILY Metoprolol Succinate 100 Mg Tab.er.24h 100 Mg PO DAILY Vitamin D3 (Cholecalciferol (Vitamin D3)) 125 Mcg Capsule 125 Mcg PO DAILY Amlodipine Besylate 10 Mg Tablet 10 Mg PO DAILY Allopurinol 100 Mg Tablet 100 Mg PO DAILY Alogliptin (Alogliptin Benzoate) 12.5 Mg Tablet 12.5 Mg PO DAILY Chlorthalidone 25 Mg Tablet 25 Mg PO DAILY Magnesium Oxide 400 Mg Tablet 400 Mg PO DAILY Fish Oil 1,000 mg Softgel ([place]-3 Fatty Acids/Fish Oil) 1 Each Capsule 1,000 Mg PO DAILY Gabapentin 100 Mg Capsule 200 Mg PO BID TAKES 2 (100MG) CAPS Atorvastatin Calcium 20 Mg Tablet 20 Mg PO HS Assessment/Pt Instructions Transferred to inpatient rehab Discharge Planning: >30 minutes discharge planning Discharge Instructions Discharge Diet: ADA Diet Activity as Tolerated: Yes Consultations Ortho, Surgery Discharge Physical Examination Vital Signs Vital Signs Date Time Temp Pulse Resp B/P (MAP) Pulse Ox O2 Delivery O2 Flow Rate FiO2 08/21/23 13:17 36.1 73 20 147/67 97 Nasal Cannula 1.00 08/20/23 20:54 21 Allergies: Coded Allergies: lisinopril (Verified Adverse Reaction, Unknown, affects kidneys, 07/02/22) metformin (Verified Adverse Reaction, Unknown, affects kidneys, 07/02/22) Copy Copies To 1: NELLA GROVE DO Discharge Summary Date of Admission Aug 18, 2023 at 16:14 Date of Discharge Aug 21, 2023 at 13:17 Discharge Date: Aug 21, 2023 Discharge Time: 13:17 Admission Diagnosis Acute Cellulitis of L leg Consults/Procedures Consulations Ortho, Surgery Discharge Diagnosis Cellulitis (1) Cellulitis of lower leg Status: Acute (2) HTN (hypertension) Status: Chronic Qualifiers: Qualified Codes: I10 - Essential (primary) hypertension (3) T2DM (type 2 diabetes mellitus) Status: Chronic (4) Stage 3a chronic kidney disease Status: Chronic (5) PVD (peripheral vascular disease) Status: Chronic (6) Postoperative pain Status: Acute (7) Diabetic neuropathy (8) Dementia (9) Folate deficiency Status: Acute (10) Delirium due to multiple etiologies Status: Acute PRAVEEN ANDERSON MD Aug 21, 2023 17:33
== END 2023-08-21 13:17 | DRG 603 ==
LOC: EDUNIT# 14:08 → ER 14:10 → 4TH 16:14
PROVIDERS: ADMIT Internal Medicine; ATTEND Internal Medicine
DX: L03.116 Cellulitis of left lower limb (principal); L97.829 Non-pressure chronic ulcer of other part of left lower leg with unspecified severity; I12.9 Hypertensive chronic kidney disease with stage 1 through stage 4 chronic kidney disease, or unspecified chronic kidney disease; E11.22 Type 2 diabetes mellitus with diabetic chronic kidney disease; Z79.4 Long term (current) use of insulin; Z96.652 Presence of left artificial knee joint; Z95.5 Presence of coronary angioplasty implant and graft; Z95.0 Presence of cardiac pacemaker; I25.10 Atherosclerotic heart disease of native coronary artery without angina pectoris; E78.00 Pure hypercholesterolemia, unspecified; Z86.73 Personal history of transient ischemic attack (TIA), and cerebral infarction without residual deficits; K21.9 Gastro-esophageal reflux disease without esophagitis; K58.9 Irritable bowel syndrome, unspecified; M19.90 Unspecified osteoarthritis, unspecified site; G89.29 Other chronic pain; M54.9 Dorsalgia, unspecified; E11.51 Type 2 diabetes mellitus with diabetic peripheral angiopathy without gangrene; Z87.891 Personal history of nicotine dependence; E11.40 Type 2 diabetes mellitus with diabetic neuropathy, unspecified; N18.31 Chronic kidney disease, stage 3a; F03.90 Unspecified dementia, unspecified severity, without behavioral disturbance, psychotic disturbance, mood disturbance, and anxiety; R06.02 Shortness of breath; E53.8 Deficiency of other specified B group vitamins; E11.65 Type 2 diabetes mellitus with hyperglycemia; D64.9 Anemia, unspecified
CPT/HCPCS: 36415; 71045; 73590; 73620; 80048; 80053; 80202; 81000; 82607; 82728; 82746; 82947; 83540; 83550; 83605; 83735; 85007; 85025; 85027; 85610; 85652; 85730; 86141; 87040; 87077; 87088; 87186; 94640; 94760

== ENCOUNTER 2023-08-21 12:53 | Inpatient (IN) | payer OTHER ==
[~2023-08-21] VITALS: Ht 165.1 cm; Wt 83.0 kg
--- OUTSIDE RECORDS SUMMARY | 2023-08-21 13:37 | XMS REPORT | Clinical Summary ---
Author Author [facility] Organization [facility] Address Unknown Phone Unavailable Care Team Providers Care Director Of Managed Care Name Role Phone Sam Lujan DO PCP [phone] Allergies Active Allergy Reactions Criticality Noted Date Comments Lisinopril 07/02/2021 Reacts with kidneys Metformin 03/18/2022 Affects his CKD-unable to take Medications Medication Sig Dispensed Refills Start Date End Date Status insulin glargine (LANTUS SOLOSTAR U-100 INSULIN) 100 unit/mL (3 mL) pen Lantus Solostar U-100 Insulin 50 UNITS AT HS 0 Active insulin aspart U-100 (NOVOLOG) 100 unit/mL (3 mL) pen Novolog Flexpen U-100 Insulin 25 UNITS QIDAC 0 Active TRIAMCINOLONE ACETONIDE TOP Triamcinolone Acetonide (Top) daily 0 01/10/2020 Active allopurinoL (ZYLOPRIM) 100 MG tablet Take 100 mg by mouth daily. 0 01/10/2020 Active alogliptin (NESINA) 12.5 mg tablet Take 12.5 mg by mouth daily. 0 01/10/2020 Active amLODIPine (NORVASC) 10 MG tablet Take 10 mg by mouth daily. 0 01/10/2020 Active aspirin 81 MG EC tablet Take 81 mg by mouth daily. 0 01/10/2020 Active atorvastatin (LIPITOR) 20 MG tablet Take 20 mg by mouth nightly. 0 01/10/2020 Active chlorthalidone (HYGROTON) 25 MG tablet Take 25 mg by mouth daily. 0 01/10/2020 Active cholecalciferol, vitamin D3, 100 mcg (4,000 unit) cap Vitamin D3 100 mcg (4,000 unit) capsule Take 1 capsule by oral route. 0 Active clopidogreL (PLAVIX) 75 mg tablet Take 75 mg by mouth daily. 0 Active losartan (COZAAR) 25 MG tablet Take 25 mg by mouth daily. 0 Active cyanocobalamin 1,000 mcg/mL injection cyanocobalamin (vit B-12) 1,000 mcg/mL injection solution qmonth 0 01/10/2020 Active gabapentin (NEURONTIN) 100 MG capsule Take 100 mg by mouth 4 (four) times a day. 0 Active magnesium oxide (MAG-OX) 400 mg (241.3 mg magnesium) tablet magnesium oxide 400 mg (241.3 mg magnesium) tablet daily 0 01/10/2020 Active metoprolol succinate 200 mg CSpX Take 200 mg by mouth daily. 0 Active omega-3 fatty acids-fish oil 300-1,000 mg cap Take by mouth. 0 Acti ve potassium chloride (MICRO-K) 10 mEq CR capsule Take 20 mEq by mouth 2 (two) times a day. 0 01/10/2020 Active testosterone cypionate (DEPO-TESTOSTERONE CYPIONATE) 200 mg/mL injection Depo-Testosterone 200 mg/mL intramuscular oil qmonth 0 01/10/2020 Active tramadoL (ULTRAM) 50 mg tablet Take 50 mg by mouth every 6 (six) hours as needed. 0 01/10/2020 Active foam bandage 4 X 4 " Bndg To the left anterior east change every 3 days. 10 each 1 08/15/2021 Active honey (MEDIHONEY, HONEY,) paste MediHoney (honey) 100 % topical paste APPLY TOPICALLY DIRECTED 0 Active furosemide (LASIX) 40 MG tablet Take 40 mg by mouth daily. 0 02/18/2022 Active Active Problems Problem Noted Date Diagnosed Date S/P coronary artery stent placement 04/18/2020 Non-healing wound of left lower extremity 2019 Obesity (BMI 30-39.9) PAD (peripheral artery disease) Essential hypertension Mixed hyperlipidemia CAD (coronary artery disease), [place] coronary a rtery CKD (chronic kidney disease) stage 3, GFR 30-59 ml/min Peripheral edema Diabetes mellitus Antiplatelet or antithrombotic long-term use Social History Tobacco Use Types Packs/Day Years Used Date Smoking Tobacco: Former Cigarettes 30 Smokeless Tobacco: Never Comments:quit 30 years ago Alcohol Use Standard Drinks/Week Comments Yes 0 (1 standard drink = 0.6 oz pur e alcohol) 2 beers yearly Sex and Gender Information Value Date Recorded Sex Assigned at Not on file Gender Identity Not on file Sexual Orientation Not on file Last Filed Vital Signs Vital Sign Reading Time Taken Comments Blood Pressure 187/82 02/24/2022 3:21 PM CDT Pulse 74 02/24/2022 3:21 PM CDT Temperature 36.6 C (97.8 F) 07/16/2021 3:45 PM C DT Respiratory Rate 19 07/16/2021 5:45 PM CDT Oxygen Saturation 93% 07/16/2021 5:45 PM CDT Inhaled Oxygen Concentration - - Weight 90.7 kg (200 lb) 02/24/2022 3:21 PM CDT Height 162.6 cm (5' 4") 02/24/2022 3:21 PM CDT Body Mass Index 34.33 02/24/2022 3:21 PM CDT Plan of Treatment Health Maintenance Due Date Last Done Comments Diabetes Mellitus Hemoglobin A1C 1945 Diabetes Mellitus Ophthalmol ogy Exam 1945 Hepatitis C Screen 1945 Td/Tdap# 1945 Diabetes Mellitus Foot Exam 1955 Zoster Vaccine# (1 of 2) 1995 08/10/2020 Lipid Screening 04/24/2022 04/24/2021, 02/14/2021 Fall Risk Assessment # 07/16/2022 07/16/2021 Advance Care Planning Conversation# 11/09/2022 Kidney Health DM (eGFR + uACR) 11/09/2022 Social Determinants of Health# 11/09/2022 COVID-19 Vaccine (6 - Mixed Product series) 11/30/2022 07/31/2022, 02/05/2022, 09/26/2021, Additional history exists Pneumococcal Vaccine: 65+ Ye ars (2 - PCV) 07/25/2023 07/25/2022, 08/10/2020 Influenza Vaccine (#1) 2023 07/25/2022, 2019 Medical Devices Implanted Type Area Lay Out Machine Operator Device Identifier Shelf Expiration Date Model / Serial / Lot Perclose - [id number] Implanted:Qty: 1 on 07/16/2021 by Lopez Huston MD at [facility] Closure Device [employer] [id number] / / Implant Venaseal Adhesive Closure System W/Catheter 5fr 91cm Vs-404 - [id number] Implanted:Qty: 1 on 03/18/2022 at [facility] Non-Tissue Implant COVID[employer]EN 10/08/2023 VS-404 / [id number] Care Teams Director Of Managed Care Relationship Specialty Start Date End Date Sam Lujan DO [address] [place], [place] [address] PCP - General Internal Medicine 07/02/21
--- NOTE | 2023-08-21 14:23 | Occupational Therapy Eval ---
OT Evaluation-General/PLF Medical Diagnosis Admission Date Aug 21, 2023 at 13:15 Medical Diagnosis: s/p L TKA; LLE cellulitis Onset Date: Aug 19, 2023 Therapy Diagnosis Therapy Diagnosis: decreased ADL status, weakness Height/Weight Height (Feet): 5 Height (Inches): 4.00 Weight (Pounds): 152 Weight (Ounces): 0.0 Weight Bear Status Weight Bearing Restriction: Weight Bearing/Tolerated Location Restriction: L LE Referral Physician: Abhijit Referral Reason: Evaluation/Treatment Medical History Pertinent Medical History: CAD, DM, HTN, PVD Additional Medical History CKD stage 3, DM, HTN, PVD, b/l shoulder surgeries, back surgery, pacemaker, CAD, heart murmur, valvular heart disease, neuropathy, TIA, GERD, arthritis, irritable bowel, skin cancer, psoriasis Current History s/p L TKA 08/11/23, discharged home. 08/19/23 returned to ED due to weeping from knee incision, increased swelling and erythema. Pt admitted to ARU 08/21/23. Social History Home: Single Level Current Living Status: Spouse Entry Into Home: Stairs With Railing Steps Into Home: 5 ADL-Prior Level of Function SCALE: Activities may be completed with or without assistive devices. 0-Nxudmpqlzz-pytknrw completes the activity by him/herself with no assistance from a helper. 5-Set-up or Clean-up Assistance-helper sets up or cleans up; patient completes activity. [place] assists only prior to or following the activity. 4-Supervision or Touching Assistance-helper provides verbal cues and/or touching/steadying and/or contact guard assistance as patient completes activity. Assistance may be provided throughout the activity or intermittently. 3-Partial/Moderate Assistance-helper does LESS THAN HALF the effort. [place] lifts, holds or supports trunk or limbs, but provides less than half the effort. 2-Substantial/Maximal Assistance-helper does MORE THAN HALF the effort. [place] lifts or holds trunk or limbs and provides more than half the effort. 3-[place]afs-mtsmup does ALL the effort. Patient does none of the effort to complete the activity. Or, the assistance of 2 or more helpers is required for the patient to complete the activity. If activity was not attempted, code reason: 7-Patient Refused. 9-Not Applicable-not attempted and the patient did not perform the activity bef ore the current illness, exacerbation or injury. 10-Not Attempted due to Environmental Limitations-(lack of equipment, weather r estraints, etc.). 88-Not Attempted due to Medical Conditions or Safety Concerns. ADL PLOF Comments Pt reports IND with ADLs and functional mobility at PLOF, using FWW since knee surgery, no device prior to surgery. He has had some decline in memory over the last year but it has worsened since surgery (per spouse report). They have a walk in shower with SC and GBS. Standard height toilet. Self Care: Independent Functional Cognition: Needed Some Help OT Current Status Subjective Pt agreeable to evaluation/tx. Pt reports 12/10 pain in LLE Mental Status/Objective Patient Orientation: Person, Confused, Place, Time, Situation Current Glasses/Contacts: Yes (reading) Hearing Aids: No Dentures/Partials: No Hand Dominance: Right Upper Extremity ROM WFL, BUE shoulder flexion to approx 160 degrees Upper Extremity Coordination WFL Upper Extremity Sensation WFL per pt report Upper Extremity Strength grossly 4/5 ADL-Treatment Eating (QC): 5 (per pt report) Oral Hygiene (QC): 4 Shower/Bathe Self (QC): 3 (assist LLE lower leg/foot) Upper Body Dressing (QC): 5 Lower Body Dressing (QC): 3 (Min A threading LLE) On/Off Footwear (QC): 3 (Min A overall. Assist donning L gripper sock.) Toileting Hygiene (QC): 4 (CGA) Other Treatments OT evaluation complete. OT/PT cotreat due to skill of 2 clinicians required which a clinical rehabilitation aide could not perform in order to coordinate UE/LEs, decrease fall risk, and due to pt's limitations in strength, activity tolerance, mobility, pain. OT focused on UE placement, cues for sequencing and safety and ADLs, PT focused on LE placement, gross overall movement, and transfer/mobility. Pt completed ADLs as outlined above, CGA-SBA with sit to stand transfers, VCs required for UE placement. Pt occasionally required redirection to task and repeated instructions, as he would get off topic and forget what he was doing. Pt's spouse reports he has had more memory/cognitive issues since his surgery. Pt used FWW to transfer to EOB, then supine. Post tx, pt in bed, call light in reach and all needs met. Education OT Patient Education: Correct positioning, Energy conservation, Modified ADL techniques, Progress toward Goal/Update tx plan, Purpose of tx/functional activities, Rehab process Teaching Recipient: Patient Teaching Methods: Discussion Response to Teaching: Reinforcement Needed BIMS CAM BIMS Expression of Ideas and Wants: Without Difficulty Understanding Verbal Content: Usually Understands Brief Interview/Mental Status: Yes IRF MANPREET BIMS: IRF MANPREET BIMS Response (Comments) Value Repitition of Three Words Two 2 Recalls Socks Yes, No Cue Required 2 Recalls Blue Yes, No Cue Required 2 Recalls Bed Yes, After Cueing 1 Year Correct 3 Month Accurate Within 5 Days 2 Day Incorrect or No Answer 0 Total 12 Should Staff Asses. Mental St[address] No CAM Mental Status Change/Baseline: 1 Inattention: 2 Disorganized thinkin Altered level of consciousness: 0 OT Short Term Goals Short Term Goals Time Frame: Aug 28, 2023 Oral hygiene: 5 Shower/bathe self: 5 Lower body dressin Putting on/taking off footwear: 5 OT Mcc Goals Mcc Goals Time Frame: Sep 04, 2023 Eating (QC): 6 Oral Hygiene (QC): 6 Toileting Hygiene (QC): 6 Shower/Bathe Self (QC): 6 Upper Body Dressing (QC): 6 Lower Body Dressing (QC): 6 On/Off Footwear (QC): 6 Additional Goals: 1-Demonstrate ADL Tasks, 2-Verbalize Understanding, 3- ImproveStrength/[place] 1=Demonstrate adherence to instructed precautions during ADL tasks. 2=Patient will verbalize/demonstrate understanding of assistive devices/modifications for ADL. 3=Patient will improve strength/tolerance for activity to enable patient to perform ADL's. OT Education/Plan Problem List/Assessment Assessment: Decreased Activ Tolerance, Decreased UE Strength, Impaired Funct Balance, Impaired I ADL's, Impaired Self-Care Skills Discharge Recommendations Plan/Recommendations: Continue POC Treatment Plan/Plan of Care Patient would benefit from OT for education, treatment and training to promote independence in ADL's, mobility, safety and/or upper extremity function for ADL's. Plan of Care: ADL Retraining, Functional Mobility, Group Exercise/Act as Ind, UE Funct Exercise/Act Treatment Duration: Sep 04, 2023 Frequency: At least 5 of 7 days/Wk (IRF) Estimated Hrs Per Day: 1.5 hours per day Agreement: Yes Rehab Potential: Good Time Start Time: 14:45 Stop Time: 15:40 DATE: Aug 21, 2023 Total Time Billed (hr/min): 55 Billed Treatment Time [id number] OT eval (15'), [id number] [place] (40') 1, EVM (15'), ADL 3 (40') LUIS NETTLES OT Aug 21, 2023 14:23
--- NOTE | 2023-08-21 15:53 | PM&R Post Admission Assessment ---
PM&R Date of Visit: Aug 21, 2023 Time of Visit: 13:30 History of Present Illness CC: Debility following complications following left knee replacement with cellulitis and unable to ambulate HPI: This is a 77yoWM clinic patient of [place] who presents from [facility] hospital course following complications from left knee replacement which included debility and slow recovery with cellulitis along with volume overload and IV antibiotics broad spectrum required. IV Lasix has been helpful. He remains on low dose OAC. Currently he is doing better and pain is still present and his is at the bedside with no concerns. [facility] Geovany is a 77yo male who is post op day 9 for L total knee replacement with a history of hypertension, CKD - stage 3, DM-II, and likely PVD. He presented to the [facility] ED yesterday with complaints of weeping from his knee and increased swelling and erythema. He reports that he has had skin problems on the anterolateral part of his L leg for some time before this surgery. He reports that when he would take a shower, the skin on his leg would slough off. It appears to be very erythematous at the L proximal tibial tuberosity down to his toes on his L foot. He has 3 ulcerations on his left east with honey crusted lesions. It is warm to touch, but there do not appear to be any pockets of fluctuance. He left leg is greatly enlarged compared to his right. There is 4+ pitting edema at the left foot. Sensation is still intact and no plantar ulcers are noted. He denied itchiness and described that wound care had been seeing him for this problem, but this did not help. He endorsed some numbness and burning in his feet He appears to have moderate purpura on the back of his L leg. He describes having his veins in his legs "glued shut" at [facility]. His Left knee still very painful - he rates it as a 10/10 severity and describes that it feels "like shit". He speaks slowly and is not a great historian. Geovany denied shortness of breath, nausea and vomiting, chest pain, and fever. He is being treated for his CKD by Dr. Conde in [place]. He has had many surgeries including both shoulders, back surgery, and a pacemaker put in by Dr. Xiao. He has allergies to lisinopril and metformin. He takes many medications - including aspart, detemir for diabetes, and metoprolol for his HTN. He is a former cigarette smoker - quitting nearly 40 years ago. He is . X-ray of his L leg showed "well-aligned left knee prosthesis. There is no sign of fracture or device loosening. There is no acute bony abnormality. There are vascular calcifications ". Ultrasound of L leg was also non-contributory. CXR was noncontributory. Dr. Barrios who performed the L. knee replacement has been consulted. His WBC count was elevated at 15.3 yesterday, but is decreased to 11.0 today. BUN and Cr are both elevated, likely due to his CKD. Past Uuzbcsx-Yeigxg-Umxzan Hx Past Med/Social Hx: Reviewed Nursing Past Med/Soc Hx, Reviewed and Corrections made Patient Social History Marrital Status: Employed/Student: retired Alcohol Use: Denies Use Smoking Status: Former Smoker Former Smoker, Quit: Aug 19, 1991 Type Used: Cigarettes Recent Hopitalizations: No Immunizations Up To Date Tetanus Booster (TDap): Unknown Date of Pneumonia Vaccine: Aug 09, 2020 Date of Influenza Vaccine: Aug 04, 2023 Seasonal Allergies Seasonal Allergies: Yes Past Medical History Surgeries: Abdominal, Coronary Stent, Eye Surgery, Joint Replacement, Orthopedic, Pacemaker, Tonsillectomy, Vascular Surgery Currently Using CPAP: No Cardiac: Coronary Artery Disease, Heart Murmur, High Cholesterol, Hypertension, Peripheral Vascular, Valvular Heart Disease Neurological: Neuropathy, TIA Reproductive: No Sexually Transmitted Disease: No Genitourinary: Renal Failure Gastrointestinal: Gastroesophageal Reflux, Irritable Bowel Musculoskeletal: Arthritis, Chronic Back Pain, Fractures Endocrine: Diabetes, Insulin dep HEENT: Cataract Cancer: Skin Did You Recieve Any Treatments: Yes What Type of Treatment Did You: Surgical Intervention Skin/Integumentary: Psoriasis History of Blood Disorders: No Adverse Reaction to Blood Singh: No Family History Family history: Diabetes mellitus 19 MOTHER G8 SISTER Heart disease G8 BROTHER UNCLE Heart Disease, Diabetes Self Care: Independent Functional Cognition: Independent PM&R Allergy/Meds/Data Review Allergies Coded Allergies: lisinopril (Verified Adverse Reaction, Unknown, affects kidneys, 07/02/22) metformin (Verified Adverse Reaction, Unknown, affects kidneys, 07/02/22) Home Medications Scheduled Allopurinol (Allopurinol), 100 MG PO DAILY, (Reported) Alogliptin Benzoate (Alogliptin), 12.5 MG PO DAILY, (Reported) Amlodipine Besylate (Amlodipine Besylate), 10 MG PO DAILY, (Reported) Apixaban (Eliquis), 2.5 MG PO BID Atorvastatin Calcium (Atorvastatin Calcium), 20 MG PO HS, (Reported) B6/Folic/B12/Coffee/Phosphatid (Neuriva Plus Brain Perform Cap), 1 EACH PO DAILY, (Reported) Calcitriol (Calcitriol), 0.25 MCG PO DAILY, (Reported) Chlorthalidone (Chlorthalidone), 25 MG PO DAILY, (Reported) Cholecalciferol (Vitamin D3) (Vitamin D3), 125 MCG PO DAILY, (Reported) Clopidogrel Bisulfate (Clopidogrel), 75 MG PO DAILY, (Reported) Cyanocobalamin (Cyanocobalamin Injection), 1,000 MCG IM EVERY 3 WEEKS, (Reported) Furosemide (Furosemide), 40 MG PO DAILY, (Reported) Gabapentin (Gabapentin), 200 MG PO BID, (Reported) Insulin Aspart (Novolog Flexpen), 30 UNITS SQ AC, (Reported) Insulin Aspart (Novolog Flexpen), 35 UNITS SQ HS, (Reported) Insulin Glargine,Hum.rec.anlog (Insulin Glargine Solostar), 50 UNIT SQ HS, (Reported) Losartan Potassium (Losartan Potassium), 50 MG PO DAILY, (Reported) Magnesium Oxide (Magnesium Oxide), 400 MG PO DAILY, (Reported) Metoprolol Succinate (Metoprolol Succinate), 100 MG PO DAILY, (Reported) Metoprolol Succinate (Metoprolol Succinate), 50 MG PO HS, (Reported) [place]-3 Fatty Acids/Fish Oil (Fish Oil 1,000 mg Softgel), 1,000 MG PO DAILY, (Reported) Pantoprazole Sodium (Pantoprazole Sodium), 40 MG PO BID, (Reported) Pioglitazone HCl (Pioglitazone HCl), 30 MG PO DAILY, (Reported) Potassium Chloride (Klor-Con M10), 30 MEQ PO BID, (Reported) Testosterone Cypionate (Testosterone Cypionate), 200 MG IM EVERY 3 WEEKS, (Reported) Scheduled PRN Oxycodone Hcl (Oxyir Tablet), 10 MG PO Q4H PRN for PAIN-SEVERE (8-10) Current Medications Current Medications Reviewed Review of Systems Constitutional: see HPI, dizziness, malaise, weakness EENTM: no symptoms reported Respiratory: dyspnea on exertion Cardiovascular: edema Gastrointestinal: constipation Genitourinary: no symptoms reported Musculoskeletal: back pain, joint pain, muscle pain, muscle stiffness, muscle cramps Skin: no symptoms reported Psychiatric/Neurological: No Symptoms Reported All Other Systems Reviewed Negative Unless Noted: Yes Physical Exam Physical Exam Vital Signs Vital Signs - First Documented 08/21/23 14:46 Pulse Ox 98 O2 Delivery Room Air Capillary Refill : Height, Weight, BMI Height: 5'4.00" Weight: 152lbs. 0.0oz. 68.002310ms; 30.26 BMI Method:Stated General Appearance: No Apparent Distress, WD/WN, Chronically ill Eyes: Bilateral Eye Normal Inspection, Bilateral Eye PERRL HEENT: PERRL/EOMI, Normal ENT Inspection, Pharynx Normal Neck: Full Range of Motion, Normal Inspection, Non Tender, Supple, Carotid Bruit Respiratory: Chest Non Tender, Lungs Clear, Normal Breath Sounds, No Accessory Muscle Use, No Respiratory Distress, Decreased Breath Sounds Cardiovascular: Regular Rate, Rhythm, No Gallop, No JVD, Normal Peripheral Pulses, Systolic Murmur Gastrointestinal: Normal Bowel Sounds, No Organomegaly, No Pulsatile Mass, Non Tender, Soft Back: Normal Inspection, No CVA Tenderness, No Vertebral Tenderness Extremity: Normal Capillary Refill, Normal Inspection, Normal Range of Motion (except left leg), Non Tender, No Calf Tenderness, No Pedal Edema Neurologic/Psychiatric: Alert, Oriented x3, supervisor pipe joints II-XII Norm as Tested, Depressed Affect, Disoriented (subtle poor recall), Motor Weakness (left leg due to pain) Skin: Normal Color, Warm/Dry, Rash (left knee and tibia redness) Lymphatic: No Adenopathy PM&R Medical Assessment & Plan REHAB/MEDICAL ASSESSMENT AND PLAN: REHAB IMPAIRMENT GROUP: status post Unilateral knee replacement ETIOLOGIC DIAGNOSIS: Primary osteoarthritis of the left knee The comorbidities that impact the patients function and/or functional outcome by: cellulitis post op, volume overload, HTN, HLP, subtle poor recall, sepsis REHAB PLAN: The patient is being admitted to our comprehensive inpatient rehabilitation facility and can tolerate the intensity of service consisting of at least: 180 minutes of therapy a day, 5 out of 7 days a week Rehab treatment will consist of: PT OT will focus on regaining function with the use of AD in order to resolve debility and regain independence in order to return home The patient/family has a good understanding of our discharge process and will benefit from an interdisciplinary inpatient rehabilitation program. The patient has potential to make improvement and is in need of at least two of the following multidisciplinary therapies including but not limited to physical, occupational, speech, and prosthetics and orthotics. Additionally the patient will need services from respiratory, nutritional services, wound care, psychology, etc. (Customize this to each patient). Given the patients complex condition and risk of further medical complications, rehabilitation services cannot be safely or effectively provided at a lower level of care such as a jail facility. BARRIERS TO DISCHARGE: Cellulitis and slow recovery ESTIMATED LOS: 10 days DISPOSITION: Home RELEVANT CHANGES SINCE PREADMISSION SCREENING: I have compared the patients medical and functional status at the time of the preadmission screening and there are: no changes PROGNOSIS: Good REHABILITATION GOALS: 1. PT OT will focus on regaining function with the use of AD in order to resolve debility and regain independence in order to return home while resolving cellulitis with IV abx All the above goals were reviewed with the patient and he/she is in agreement. By signing this document, I acknowledge that I have personally performed a full physical examination on this patient within 24 hours of admission to this inpatient rehabilitation facility and have determined the patient to be able to tolerate the above course of treatment at an intensive level for a reasonable period of time. I will be completing a detailed individualized Plan of Care for this patient by day #4 of the patients stay based upon the Preadmission Screen, the Post-Admission Evaluation, and the therapy evaluations. Admission Dx/Comorbidities: (1) Left leg cellulitis Status: Acute ICD Codes: L03.116 - Cellulitis of left lower limb (2) Primary osteoarthritis of left knee ICD Codes: M17.12 - Unilateral primary osteoarthritis, left knee (3) Debility Status: Acute ICD Codes: R53.81 - Other malaise (4) Dementia ICD Codes: F03.90 - Unspecified dementia, unspecified severity, without behavioral disturbance, psychotic disturbance, mood disturbance, and anxiety (5) Diabetic neuropathy ICD Codes: E11.40 - Type 2 diabetes mellitus with diabetic neuropathy, u nspecified Assessment/Plan Assessment and Plan Assess & Plan/Chief Complaint Assessment: s/p left knee arthroplasty due to osteoarthritis Cellulitis post op left leg Dementia HTN HLP Cardiac murmur Plan: IV abx PT OT Home meds Pain control OAC KEIKO LYNN DO Aug 21, 2023 15:53
--- NOTE | 2023-08-21 15:58 | Physical Therapy Evaluation ---
PT Evaluation-General Medical Diagnosis Admission Date Aug 21, 2023 at 13:15 Medical Diagnosis: s/p L TKA; LLE cellulitis Onset Date: Aug 19, 2023 Therapy Diagnosis Therapy Diagnosis: Cellulitis LLE s/p TKA Height/Weight Height (Feet): 5 Height (Inches): 4.00 Weight (Pounds): 152 Weight (Ounces): 0.0 Precautions FALL RISK. Impulsivity/safety awareness impairment. Weight Bear Status Right Lower Extremity: Right Weight Bearing/Tolerated Left Lower Extremity: Left Weight Bearing/Tolerated Referral Physician: Abhijit Reason for Referral: Evaluation/Treatment, Strengthening, Gait, ROM Medical History Pertinent Medical History: CAD, DM, HTN, PVD Additional Medical History Hypertension Peripheral Vascular Disease Cardiac murmur Hyperlipidemia Baseline confusion Cardiac Murmur Pain in left knee Please monitor and review medical chart. Social History Home: Single Level Current Living Status: Spouse Entry Into Home: Stairs With Railing PT Steps Into Home: 5 Prior Prior Level of Function SCALE: Activities may be completed with or without assistive devices. 1-Odiazytbis-hdtuber completes the activity by him/herself with no assistance from a helper. 5-Set-up or Clean-up Assistance-helper sets up or cleans up; patient completes a ctivity. [place] assists only prior to or following the activity. 4-Supervision or Touching Assistance-helper provides verbal cues and/or touching/steadying and/or contact guard assistance as patient completes activity. Assistance may be provided throughout the activity or intermittently. 3-Partial/Moderate Assistance-helper does LESS THAN HALF the effort. [place] lifts, holds or supports trunk or limbs, but provides less than half the effort. 2-Substantial/Maximal Assistance-helper does MORE THAN HALF the effort. [place] lifts or holds trunk or limbs and provides more than half the effort. 0-Swfpwoafv-uunvjy does ALL the effort. Patient does none of the effort to complete the activity. Or, the assistance of 2 or more helpers is required for the patient to complete the activity. If activity was not attempted, code reason: 7-Patient Refused. 9-Not Applicable-not attempted and the patient did not perform the activity before the current illness, exacerbation or injury. 10-Not Attempted due to Environmental Limitations-(lack of equipment, weather restraints, etc.). 88-Not Attempted due to Medical Conditions or Safety Concerns. Bed Mobility: 6 Transfers (B,C,W/C): 6 Gait: 6 Stairs: 6 Wheelchair Mobility: 9 Indoor Mobility (Ambulation): Independent Stairs: Independent Prior Devices Use: None Prior Device Use: NA PT Evaluation-Current Subjective Geovany is a 77yo male who is post op day 11 for L total knee replacement. He presented to the [facility] ED following return home after surgical intervention with complaints of weeping from his knee and increased swelling and erythema in LLE. Patient diagnosed with cellulitis and admited to hospital due to complications following knee sugery. Patient LLE erythmatous from mid-calf to toes on LLE with weeping observed and open wounds. Wounds reported to result from tap removal per patient. Patient pitting edema 2+ consulted with nursing. Patient rates pain 6/10 at rest and 10/10+ when exacerbated by activity. Patient diagnosed with dementia and contfused at baseling, increased with fatig ue. Patient resides with spouse in single story home with multiple MTA with railing. Patient reports peripheral neuropathy at baseline but did not req use of AD for daily mobility. Patient admitted to ARU following acute stay due to benefit of continued and progressed intensive rehab for safe and effective return home. Patient to benefit from PT intervention with individualized POC directed at achievement of maximum functional potential. Pain Section J - Health Conditions 1. Rarely or not at all 2. Occasionally 3. Frequently 4. Almost constantly 8. Unable to answer Pain Effect on Sleep: 4 Pain Interference with Therapy: 4 Pain Interference w/Day-to-Day: 4 Pt/Family Goals To return home at [facility]. Objective Patient Orientation: Person, Confused, Place, Time, Situation ROM/Strength ROM Upper Extremities SEE OT EVAL ROM Lower Extremities Impaired: LLE ankle 0 deg DF to 50 deg PF LLE knee 0 deg ext to 85 deg flexion All other LE ROM WFL Strength Upper Extremities SEE OT EVAL Strength Lower Extremities RLE 4-/5 LLE 3/5 Transfers Roll Left & Right (QC): 3 Sit to Lying (QC): 3 Lying to Sitting/Side of Bed(Q: 3 Sit to Stand (QC): 3 Chair/Fnx-do-Llsba Xfer(QC): 3 Toilet Transfer (QC): 3 Car Transfer (QC): 2 Patient participated in functional bed mobility and repositioning practice focusing on improving efficiency and quality of functional task, req CGA-modA to roll R<>L, supine <> sit, and scoot laterally and vertically in bed, increased level of assist req with onset of fatigue. Patient participated in functional transfer practice with use of FWW focusing on improving performance, sequence, safety, AD management and adherence, req CGA-modA, increased level of assist req with onset of fatigue. Patient participated in functional car transfer practice, req maxA due to observed impairments and safety concerns with completion of functional task. Gait Does the Patient Walk?: Yes Mode of Locomotion: Walk Anticipated Mode of Locomotion: Walk Walk 10 feet (QC): 4 Walk 50 ft with 2 Turns(QC): 3 Walk 150 ft (QC): 3 Walking 10ft/uneven surface-QC: 88 Distance: 150ft Gait Assistive Device: FWW Comments/Gait Description Patient participated in functional gait training with use of FWW focusing on improving stepping mechanics, maintaining COG/GILMER, AD management and environmental awareness. Patient achieve multiple bouts of 150ft with multiple turns CGA-Yuri. Wheelchair Training Does the Pt Use a Wheelchair?: No Wheel 50 ft with 2 turns (QC): 9 Wheel 150 ft (QC): 9 Type of Wheelchair: N/A Stairs 1 Step (curb) (QC): 3 4 Steps (QC): 3 12 Steps (QC): 9 Walking Assistive Device: Walker Balance Picking up an Object (QC): 3 Special Test Comments KU standing balance 01/11 GOAL: 5/5 Treatment NMR Patient participated in static and dynamic, seated and standing progressive functional balance challenges focusing on improving balance, stability and reactive control. TherEX Patient perform seated and supine AAROM LLE and AROM RLE in all functional planes at hip, knee and ankle focusing on improving strength, endurance and mobility Assessment/Needs Rehab Potential: Good PT Short Term Goals Short Term Goals Time Frame: Sep 02, 2023 Roll Left & Right: 5 Sit to lyin Lying to sitting on side of be: 5 Sit to stand: 5 Chair/rlg-td-mxltt transfer: 5 Toilet transfer: 5 Car transfer: 5 Walk 10 feet: 5 Walk 50 feet with two turns: 5 Walk 150 feet: 5 Walking 10ft on uneven surface: 5 1 step (curb): 5 4 steps: 5 12 steps: 9 Picking up objects: 5 Does pt use a wc or scooter: No Wheel 50ft w/2 turns: 9 Wheel 150 feet: 9 Type: N/A PT Cargo Vessel Stewardess Goals Prison Goals PT Prison Goals Time Frame: Sep 09, 2023 Roll Left to Right (QC): 6 Sit to Lying (QC): 6 Lying-Sitting on Side/Bed(QC): 6 Sit to Stand (QC): 6 Chair/Aqc-kd-Epygy Xfer(QC): 6 Toilet/Commode Transfer (QC): 6 Car Transfer (QC): 6 Does the Patient Walk: Yes Walk 10 feet (QC): 6 Walk 10ft-Uneven Surface(QC): 6 Walk 50ft with 2 Turns (QC): 6 Walk 150 ft (QC): 6 Does the Pt use WC or Scooter?: No Wheel 50 feet with 2 turns (QC: 9 Type: N/A Wheel 150 feet: 9 Type: N/A 1 Step (curb) (QC): 9 4 Steps (QC): 9 12 Steps (QC): 9 Picking up an Object (QC): 6 PT Plan Treatment/Plan Treatment Plan: Continue Plan of Care Treatment Plan: Bed Mobility, Education, Functional Activity [place], Functional Strength, Group Therapy, Gait, Safety, Therapeutic Exercise, Transfers Treatment Duration: Aug 21, 2023 Frequency: At least 5 of 7 days/Wk (IRF) Estimated Hrs Per Day: 1.5 hours per day Patient and/or Family Agrees t: Yes Safety Risks/Education Patient Education: Gait Training, Transfer Techniques, Steps, Reviewed Precautions, Reviewed Use of Ice, Instructions to Caregiver, Safety Issues Discharge Recommendations Plan Home at [facility] with spouse assist. Therapy Discharge Recommendati: Home & Family Barriers to Progress Cognition. Time Time In: 1315 ([id number] PT eval/tx) Time Out: 1540 ([id number] co tx) DATE: Aug 21, 2023 Total Billed Treatment Time: 130 Total Billed Treatment Single session [id number] PT Individual eval/tx [id number] PT/OT co-tx co-tx performed with OT due to patient tolerance and rapid onset of fatigue with added benefit of increased participation in activities of higher complexity focusing on improving utilization of gross and fine motor movements for completion of functional task. 8 units 1 EVL 2 FA 1 NMR 2 GT 2 EX CHACE PERERA PT Aug 21, 2023 15:58
[2023-08-21] MEDS ORDERED: diphenhydrAMINE 25 MG TABLET PO PRN (16:00)
[2023-08-21] MEDS ORDERED: BISACODYL 10 MG SUPPOSITORY PR PRN ×2 (16:00)
[2023-08-21] MEDS ORDERED: guaiFENesin/CODEINE 10ML UDC PO PRN (16:00)
[2023-08-21] MEDS ORDERED: LACTULOSE SYRUP 10GM/15ML 30ML UDC PO PRN ×2 (16:00)
[2023-08-21] MEDS ORDERED: ONDANSETRON 4 MG ORAL DISSOLVE TABLET PO PRN ×2 (16:00)
[2023-08-21] MEDS ORDERED: CALCIUM CARBONATE 500 MG CHEW TABLET PO PRN ×2 (16:00)
[2023-08-21] MEDS ORDERED: ACETAMINOPHEN 325 MG TABLET PO PRN (16:00)
[2023-08-21] MEDS ORDERED: Sodium Phosphate/Sodium Biphosphate ADULT enema PR PRN (16:00)
[2023-08-21] MEDS ORDERED: VANCOMYCIN INJECTION 1,000 MG in NS (IVPB) 250 ML 250 ML IV SCH (16:00)
[2023-08-21] MEDS ORDERED: MELATONIN 3 MG TABLET PO PRN (16:00)
[2023-08-21] MEDS ORDERED: DOCUSATE SODIUM 100 MG CAPSULE PO PRN (16:00)
[2023-08-21] MEDS ORDERED: ALPRAZolam 0.25 MG TABLET PO PRN (16:00)
[2023-08-21] MEDS ORDERED: LOPERAMIDE 2 MG CAPSULE PO PRN (16:00)
[2023-08-21] MEDS ORDERED: ONDANSETRON INJECTION 4 MG/2 ML (SDV) IV PRN (16:00)
[2023-08-21] MEDS ORDERED: ANTACID SUSPENSION 30 ML UDC PO PRN (16:00)
[2023-08-21] MEDS ORDERED: RT-ALBUTEROL SULF 2.5 MG/3 ML PRE-MIX VIAL INH PRN (16:00)
[2023-08-21] MEDS ORDERED: PIPERACILLIN/Tazobactam 4.5 GM in NS (IVPB) 100 ML 100 ML IV SCH (16:00)
[2023-08-21] MEDS ORDERED: MILK OF MAGNESIA 400 MG/5 ML 30 ML UDC PO PRN (16:00)
[2023-08-21] MEDS ORDERED: HYDROmorphone INJECTION 2 MG/ML VIAL IVP PRN (16:00)
[2023-08-21] MEDS: oxyCODONE IMMEDIATE RELEASE 5 MG TABLET PO PRN ×2 (16:14→21:24)
[2023-08-21] MEDS: VANCOMYCIN INJECTION 1,000 MG in NS (IVPB) 250 ML 250 ML IV SCH (16:17)
[2023-08-21] MEDS: PIPERACILLIN/Tazobactam 4.5 GM in NS (IVPB) 100 ML 100 ML IV SCH (16:17)
[2023-08-21] MEDS: inSUlin ASPART 1 UNIT/0.01 ML (PER UNIT) SC SCH ×2 (17:12→21:25)
[2023-08-21 20:00] VITALS: BP 168/70
[2023-08-21] MEDS ORDERED: DOCUSATE SODIUM 100 MG CAPSULE PO SCH (21:00)
[2023-08-21] MEDS ORDERED: inSUlin DETERMIR 1 UNIT/0.01 ML (CHARGE PER UNIT) SQ SCH (21:00)
[2023-08-21] MEDS ORDERED: SENNA W/DOCUSATE TABLET PO SCH (21:00)
[2023-08-21] MEDS: GABAPENTIN 100 MG CAPSULE PO SCH (21:24)
[2023-08-21] MEDS: APIXABAN 2.5 MG TABLET PO SCH (21:24)
[2023-08-21] MEDS: SENNOSIDES 8.6 MG TABLET PO SCH (21:30)
[2023-08-21] MEDS: DOCUSATE SODIUM 100 MG CAPSULE PO SCH (21:30)
[2023-08-22] MEDS: PIPERACILLIN/Tazobactam 4.5 GM in NS (IVPB) 100 ML 100 ML IV SCH ×3 (00:45→17:04)
[2023-08-22 06:05] LABS: BASOPHILS # (AUTO) 0.1 10^3/uL (0.0-0.1); BASOPHILS % (AUTO) 1 % (0-10); EOSINOPHILS # (AUTO) 0.2 10^3/uL (0.0-0.3); EOSINOPHILS % (AUTO) 3 % (0-10); HEMATOCRIT 32 % (40-54); LYMPHOCYTES # (AUTO) 0.9 10^3/uL (1.0-4.0); LYMPHOCYTES % (AUTO) 9 % (12-44); MEAN CORPUSCULAR HEMOGLOBIN 26 pg (25-34); MEAN CORPUSCULAR HGB CONC 31 g/dL (32-36); MEAN CORPUSCULAR VOLUME 83 fL (80-99); MEAN PLATELET VOLUME 10.2 fL (9.0-12.2); MONOCYTES # (AUTO) 0.7 10^3/uL (0.0-1.0); MONOCYTES % (AUTO) 7 % (0-12); NEUTROPHILS # (AUTO) 7.8 10^3/uL (1.8-7.8); NEUTROPHILS % (AUTO) 80 % (42-75); PLATELET COUNT 294 10^3/uL (130-400); WHITE BLOOD COUNT 9.8 10^3/uL (4.3-11.0)
[2023-08-22] MEDS: oxyCODONE IMMEDIATE RELEASE 5 MG TABLET PO PRN ×3 (06:24→21:28)
[2023-08-22 06:25] LABS: ALBUMIN 3.3 GM/DL (3.2-4.5); BILIRUBIN,TOTAL 1.2 MG/DL (0.1-1.0); CALCIUM 9.4 MG/DL (8.5-10.1); CREATININE SERUM 1.54 MG/DL (0.60-1.30); POTASSIUM 3.5 MMOL/L (3.6-5.0); TOTAL PROTEIN 6.1 GM/DL (6.4-8.2)
[2023-08-22] MEDS: inSUlin ASPART 1 UNIT/0.01 ML (PER UNIT) SC SCH ×5 (06:53→21:29)
[2023-08-22 07:30] VITALS: BP 161/70
[2023-08-22] MEDS: DOCUSATE SODIUM 100 MG CAPSULE PO SCH ×2 (08:54→21:34)
[2023-08-22] MEDS: amLODIPine 10 MG TABLET PO SCH (08:54)
[2023-08-22] MEDS: FOLIC ACID 1 MG TAB PO SCH (08:54)
[2023-08-22] MEDS: FUROSEMIDE INJECTION 40 MG/4 ML VIAL IVP SCH (08:54)
[2023-08-22] MEDS: MAGNESIUM OXIDE 400 MG TABLET PO SCH (08:54)
[2023-08-22] MEDS: CALCITRIOL 0.25 MCG CAPSULE PO SCH (08:54)
[2023-08-22] MEDS: ALLOPURINOL 100 MG TABLET PO SCH (08:54)
[2023-08-22] MEDS: CLOPIDOGREL 75 MG TABLET PO SCH (08:54)
[2023-08-22] MEDS: APIXABAN 2.5 MG TABLET PO SCH ×2 (08:54→21:34)
[2023-08-22] MEDS: GABAPENTIN 100 MG CAPSULE PO SCH ×2 (08:54→21:27)
[2023-08-22] MEDS: SENNOSIDES 8.6 MG TABLET PO SCH ×2 (08:55→21:34)
--- NOTE | 2023-08-22 11:03 | PM&R Progress Note ---
Subjective HPI/CC On Admission Date Seen by Provider: Aug 22, 2023 Time Seen by Provider: 11:00 Subjective/Events-last exam 08/22/2023: No major issues Will recheck labs Thursday IV abx maintained No falls Pain controlled PPI and Carafate will be restarted Review of Systems General: Fatigue, Malaise Gastrointestinal: Other (gerd) Musculoskeletal: leg pain Objective Exam Vital Signs Vital Signs Date Time Temp Pulse Resp B/P (MAP) Pulse Ox O2 Delivery O2 Flow Rate FiO2 08/22/23 09:00 97 Room Air 08/22/23 07:30 36.1 70 21 161/70 (100) Capillary Refill : General Appearance: No Apparent Distress, WD/WN, Chronically ill HEENT: PERRL/EOMI, Normal ENT Inspection, Pharynx Normal Neck: Full Range of Motion, Normal Inspection, Non Tender, Supple, Carotid Bruit Respiratory: Chest Non Tender, Lungs Clear, Normal Breath Sounds, No Accessory Muscle Use, No Respiratory Distress, Decreased Breath Sounds Cardiovascular: Regular Rate, Rhythm, No Gallop, No JVD, Normal Peripheral Pulses, Systolic Murmur Gastrointestinal: Normal Bowel Sounds, No Organomegaly, No Pulsatile Mass, Non Tender, Soft Back: Normal Inspection, No CVA Tenderness, No Vertebral Tenderness Extremity: Normal Capillary Refill, Normal Inspection, Normal Range of Motion (except left leg), Non Tender, No Calf Tenderness, No Pedal Edema Neurologic/Psychiatric: Alert, Oriented x3, hand fur cleaner II-XII Norm as Tested, Depressed Affect, Disoriented (subtle poor recall), Motor Weakness (left leg due to pain) Skin: Normal Color, Warm/Dry, Rash (left knee and tibia redness) Lymphatic: No Adenopathy Results/Procedures Lab Laboratory Tests 08/22/23 06:00 Patient resulted labs reviewed. FIM Transfers Therapy Code Descriptions/Definitions Functional [place] Measure: 0=Not Assessed/NA 4=Minimal Assistance 1=Total Assistance 5=Supervision or Setup 2=Maximal Assistance 6=Modified [place] 3=Moderate Assistance 7=Complete IndependenceSCALE: Activities may be completed with or without assistive devices. 3-Mnhjabqfzj-vlhycwy completes the activity by him/herself with no assistance from a helper. 5-Set-up or Clean-up Assistance-helper sets up or cleans up; patient completes activity. [place] assists only prior to or following the activity. 4-Supervision or Touching Assistance-helper provides verbal cues and/or touching/steadying and/or contact guard assistance as patient completes activity. Assistance may be provided throughout the activity or intermittently. 3-Partial/Moderate Assistance-helper does LESS THAN HALF the effort. [place] lifts, holds or supports trunk or limbs, but provides less than half the effort. 2-Substantial/Maximal Assistance-helper does MORE THAN HALF the effort. [place] lifts or holds trunk or limbs and provides more than half the effort. 5-Kpohderdh-dqrmni does ALL the effort. Patient does none of the effort to complete the activity. Or, the assistance of 2 or more helpers is required for the patient to complete the activity. If activity was not attempted, code reason: 7-Patient Refused. 9-Not Applicable-not attempted and the patient did not perform the activity before the current illness, exacerbation or injury. 10-Not Attempted due to Environmental Limitations-(lack of equipment, weather restraints, etc.). 88-Not Attempted due to Medical Conditions or Safety Concerns. Roll Left to Right (QC): 3 Sit to Lying (QC): 3 Sit to Stand (QC): 3 Chair/Luy-yv-Hwhsd Xfer(QC): 3 Car Transfer (QC): 2 Gait Training Does the Patient Walk?: Yes Walk 10 feet (QC): 4 Walk 50 ft with 2 Turns(QC): 3 Walk 150 ft (QC): 3 Walking 10ft/uneven surface-QC: 88 Gait Assistive Device: FWW Wheelchair Training Does the Pt Use a Wheelchair?: No Wheel 50 ft with 2 turns (QC): 9 Wheel 150 ft (QC): 9 Type of Wheelchair: N/A Stair Training 1 Step (curb) (QC): 3 4 Steps (QC): 3 12 Steps (QC): 9 Balance Picking up an Object (QC): 3 ADL-Treatment Eating (QC): 5 (per pt report) Oral Hygiene (QC): 4 Shower/Bathe Self (QC): 3 (assist LLE lower leg/foot) Upper Body Dressing (QC): 5 Lower Body Dressing (QC): 3 (Min A threading LLE) On/Off Footwear (QC): 3 (Min A overall. Assist donning L gripper sock.) Toileting Hygiene (QC): 4 (CGA) Assessment/Plan Assessment and Plan Assess & Plan/Chief Complaint Assessment: s/p left knee arthroplasty due to osteoarthritis Cellulitis post op left leg Dementia HTN HLP Cardiac murmur GERD Plan: IV abx PT OT Home meds Pain control OAC 08/22/2023: Restart GERD tx Increase insulin (1) Left leg cellulitis Status: Acute (2) Primary osteoarthritis of left knee (3) Debility Status: Acute (4) Dementia (5) Diabetic neuropathy KEIKO LYNN DO Aug 22, 2023 11:03
[2023-08-22] MEDS ORDERED: SUCRALFATE 1 GM TABLET PO PRN (11:30)
[2023-08-22] MEDS ORDERED: PANTOPRAZOLE 40 MG TABLET PO ONE ×3 (12:02→14:15)
[2023-08-22] MEDS: VANCOMYCIN INJECTION 1,000 MG in NS (IVPB) 250 ML 250 ML IV SCH (17:04)
[2023-08-22 19:48] VITALS: BP 161/70
[2023-08-22 19:51] VITALS: BP 150/67
[2023-08-22] MEDS: PANTOPRAZOLE 40 MG TABLET PO SCH (21:28)
[2023-08-22] MEDS: inSUlin DETERMIR 1 UNIT/0.01 ML (CHARGE PER UNIT) SQ SCH (21:29)
[2023-08-23] MEDS: PIPERACILLIN/Tazobactam 4.5 GM in NS (IVPB) 100 ML 100 ML IV SCH ×3 (01:07→17:05)
[2023-08-23] MEDS: inSUlin ASPART 1 UNIT/0.01 ML (PER UNIT) SC SCH ×7 (06:00→21:46)
[2023-08-23] MEDS: DOCUSATE SODIUM 100 MG CAPSULE PO SCH ×2 (07:26→21:32)
[2023-08-23] MEDS: SENNOSIDES 8.6 MG TABLET PO SCH ×2 (07:27→21:33)
[2023-08-23 08:00] VITALS: BP 170/72
[2023-08-23] MEDS: MAGNESIUM OXIDE 400 MG TABLET PO SCH (09:32)
[2023-08-23] MEDS: FOLIC ACID 1 MG TAB PO SCH (09:32)
[2023-08-23] MEDS: CALCITRIOL 0.25 MCG CAPSULE PO SCH (09:32)
[2023-08-23] MEDS: CLOPIDOGREL 75 MG TABLET PO SCH (09:32)
[2023-08-23] MEDS: amLODIPine 10 MG TABLET PO SCH (09:32)
[2023-08-23] MEDS: ALLOPURINOL 100 MG TABLET PO SCH (09:33)
[2023-08-23] MEDS: GABAPENTIN 100 MG CAPSULE PO SCH ×2 (09:33→21:32)
[2023-08-23] MEDS: FUROSEMIDE INJECTION 40 MG/4 ML VIAL IVP SCH (09:33)
[2023-08-23] MEDS: APIXABAN 2.5 MG TABLET PO SCH ×2 (09:33→21:32)
[2023-08-23] MEDS: PANTOPRAZOLE 40 MG TABLET PO SCH ×2 (09:33→21:32)
[2023-08-23] MEDS: oxyCODONE IMMEDIATE RELEASE 5 MG TABLET PO PRN ×3 (09:41→22:09)
--- NOTE | 2023-08-23 15:24 | PM&R Progress Note ---
Subjective HPI/CC On Admission Date Seen by Provider: Aug 23, 2023 Time Seen by Provider: 13:30 Subjective/Events-last exam 08/23/2023: Doing better Pain controlled Left leg much improved cellulitis PPI and Carafate helpful at bedside 08/22/2023: No major issues Will recheck labs Thursday IV abx maintained No falls Pain controlled PPI and Carafate will be restarted Review of Systems General: Fatigue, Malaise Objective Exam Vital Signs Vital Signs Date Time Temp Pulse Resp B/P (MAP) Pulse Ox O2 Delivery O2 Flow Rate FiO2 08/23/23 21:51 Room Air 08/23/23 19:40 37.0 84 20 144/68 (93) 93 08/22/23 19:48 21 Capillary Refill : General Appearance: No Apparent Distress, WD/WN, Chronically ill HEENT: PERRL/EOMI, Normal ENT Inspection, Pharynx Normal Neck: Full Range of Motion, Normal Inspection, Non Tender, Supple, Carotid Bruit Respiratory: Chest Non Tender, Lungs Clear, Normal Breath Sounds, No Accessory Muscle Use, No Respiratory Distress, Decreased Breath Sounds Cardiovascular: Regular Rate, Rhythm, No Gallop, No JVD, Normal Peripheral Pulses, Systolic Murmur Gastrointestinal: Normal Bowel Sounds, No Organomegaly, No Pulsatile Mass, Non Tender, Soft Back: Normal Inspection, No CVA Tenderness, No Vertebral Tenderness Extremity: Normal Capillary Refill, Normal Inspection, Normal Range of Motion (except left leg), Non Tender, No Calf Tenderness, No Pedal Edema Neurologic/Psychiatric: Alert, Oriented x3, locomotive pipe fitter II-XII Norm as Tested, Depressed Affect, Disoriented (subtle poor recall), Motor Weakness (left leg due to pain) Skin: Normal Color, Warm/Dry, Rash (left knee and tibia redness) Lymphatic: No Adenopathy Results/Procedures Lab Patient resulted labs reviewed. FIM Transfers Therapy Code Descriptions/Definitions Functional [place] Measure: 0=Not Assessed/NA 4=Minimal Assistance 1=Total Assistance 5=Supervision or Setup 2=Maximal Assistance 6=Modified [place] 3=Moderate Assistance 7=Complete IndependenceSCALE: Activities may be completed with or without assistive devices. 5-Riehszysji-upgzcdb completes the activity by him/herself with no assistance from a helper. 5-Set-up or Clean-up Assistance-helper sets up or cleans up; patient completes activity. [place] assists only prior to or following the activity. 4-Supervision or Touching Assistance-helper provides verbal cues and/or touchin g/steadying and/or contact guard assistance as patient completes activity. Assistance may be provided throughout the activity or intermittently. 3-Partial/Moderate Assistance-helper does LESS THAN HALF the effort. [place] lifts, holds or supports trunk or limbs, but provides less than half the effort. 2-Substantial/Maximal Assistance-helper does MORE THAN HALF the effort. [place] lifts or holds trunk or limbs and provides more than half the effort. 2-Ssvhdiolv-xohuiu does ALL the effort. Patient does none of the effort to complete the activity. Or, the assistance of 2 or more helpers is required for the patient to complete the activity. If activity was not attempted, code reason: 7-Patient Refused. 9-Not Applicable-not attempted and the patient did not perform the activity before the current illness, exacerbation or injury. 10-Not Attempted due to Environmental Limitations-(lack of equipment, weather restraints, etc.). 88-Not Attempted due to Medical Conditions or Safety Concerns. Roll Left to Right (QC): 3 Sit to Lying (QC): 3 Sit to Stand (QC): 3 Chair/Vcn-be-Nyjrt Xfer(QC): 3 Car Transfer (QC): 2 Gait Training Does the Patient Walk?: Yes Walk 10 feet (QC): 4 Walk 50 ft with 2 Turns(QC): 3 Walk 150 ft (QC): 3 Walking 10ft/uneven surface-QC: 88 Gait Assistive Device: FWW Wheelchair Training Does the Pt Use a Wheelchair?: No Wheel 50 ft with 2 turns (QC): 9 Wheel 150 ft (QC): 9 Type of Wheelchair: N/A Stair Training 1 Step (curb) (QC): 3 4 Steps (QC): 3 12 Steps (QC): 9 Balance Picking up an Object (QC): 3 ADL-Treatment Eating (QC): 5 (per pt report) Oral Hygiene (QC): 4 Shower/Bathe Self (QC): 3 (assist LLE lower leg/foot) Upper Body Dressing (QC): 5 Lower Body Dressing (QC): 3 (Min A threading LLE) On/Off Footwear (QC): 3 (Min A overall. Assist donning L gripper sock.) Toileting Hygiene (QC): 4 (CGA) Assessment/Plan Assessment and Plan Assess & Plan/Chief Complaint Assessment: s/p left knee arthroplasty due to osteoarthritis Cellulitis post op left leg Dementia HTN HLP Cardiac murmur GERD Plan: IV abx PT OT Home meds Pain control OAC 08/22/2023: Restart GERD tx Increase insulin 08/23/2023: Monitor closely IV abx (1) Left leg cellulitis Status: Acute (2) Primary osteoarthritis of left knee (3) Debility Status: Acute (4) Dementia (5) Diabetic neuropathy KEIKO LYNN DO Aug 23, 2023 15:24
[2023-08-23] MEDS: VANCOMYCIN INJECTION 1,000 MG in NS (IVPB) 250 ML 250 ML IV SCH (17:05)
[2023-08-23 19:40] VITALS: BP 144/68
[2023-08-23] MEDS: inSUlin DETERMIR 1 UNIT/0.01 ML (CHARGE PER UNIT) SQ SCH (21:47)
[2023-08-24] MEDS: PIPERACILLIN/Tazobactam 4.5 GM in NS (IVPB) 100 ML 100 ML IV SCH ×3 (01:06→17:04)
--- NOTE | 2023-08-24 05:10 | PM&R Progress Note ---
Subjective HPI/CC On Admission Date Seen by Provider: Aug 24, 2023 Time Seen by Provider: 11:00 Subjective/Events-last exam 08/24/2023: Much improved IV abx maintained due to severity of the infection Labs stable at bedside 08/23/2023: Doing better Pain controlled Left leg much improved cellulitis PPI and Carafate helpful at bedside 08/22/2023: No major issues Will recheck labs Thursday IV abx maintained No falls Pain controlled PPI and Carafate will be restarted Review of Systems General: Fatigue, Malaise Musculoskeletal: leg pain Objective Exam Vital Signs Vital Signs Date Time Temp Pulse Resp B/P (MAP) Pulse Ox O2 Delivery O2 Flow Rate FiO2 08/24/23 21:00 100 Nasal Cannula 1.00 08/24/23 20:24 36.7 74 16 170/72 (104) 08/22/23 19:48 21 Capillary Refill : General Appearance: No Apparent Distress, WD/WN, Chronically ill HEENT: PERRL/EOMI, Normal ENT Inspection, Pharynx Normal Neck: Full Range of Motion, Normal Inspection, Non Tender, Supple, Carotid Bruit Respiratory: Chest Non Tender, Lungs Clear, Normal Breath Sounds, No Accessory Muscle Use, No Respiratory Distress, Decreased Breath Sounds Cardiovascular: Regular Rate, Rhythm, No Gallop, No JVD, Normal Peripheral Pulses, Systolic Murmur Gastrointestinal: Normal Bowel Sounds, No Organomegaly, No Pulsatile Mass, Non Tender, Soft Back: Normal Inspection, No CVA Tenderness, No Vertebral Tenderness Extremity: Normal Capillary Refill, Normal Inspection, Normal Range of Motion (except left leg), Non Tender, No Calf Tenderness, No Pedal Edema Neurologic/Psychiatric: Alert, Oriented x3, wire stripper II-XII Norm as Tested, Depressed Affect, Disoriented (subtle poor recall), Motor Weakness (left leg due to pain) Skin: Normal Color, Warm/Dry, Rash (left knee and tibia redness) Lymphatic: No Adenopathy Results/Procedures Lab Laboratory Tests 08/24/23 05:13 Patient resulted labs reviewed. FIM Transfers Therapy Code Descriptions/Definitions Functional [place] Measure: 0=Not Assessed/NA 4=Minimal Assistance 1=Total Assistance 5=Supervision or Setup 2=Maximal Assistance 6=Modified [place] 3=Moderate Assistance 7=Complete IndependenceSCALE: Activities may be completed with or without assistive devices. 7-Mtrlhbnbis-onltygd completes the activity by him/herself with no assistance from a helper. 5-Set-up or Clean-up Assistance-helper sets up or cleans up; patient completes activity. [place] assists only prior to or following the activity. 4-Supervision or Touching Assistance-helper provides verbal cues and/or touching/steadying and/or contact guard assistance as patient completes activity. Assistance may be provided throughout the activity or intermittently. 3-Partial/Moderate Assistance-helper does LESS THAN HALF the effort. [place] lifts, holds or supports trunk or limbs, but provides less than half the effort. 2-Substantial/Maximal Assistance-helper does MORE THAN HALF the effort. [place] lifts or holds trunk or limbs and provides more than half the effort. 8-Zmbswcdfe-jbnect does ALL the effort. Patient does none of the effort to complete the activity. Or, the assistance of 2 or more helpers is required for the patient to complete the activity. If activity was not attempted, code reason: 7-Patient Refused. 9-Not Applicable-not attempted and the patient did not perform the activity before the current illness, exacerbation or injury. 10-Not Attempted due to Environmental Limitations-(lack of equipment, weather restraints, etc.). 88-Not Attempted due to Medical Conditions or Safety Concerns. Roll Left to Right (QC): 3 Sit to Lying (QC): 3 Sit to Stand (QC): 3 Chair/Lsr-bj-Hiwan Xfer(QC): 3 Car Transfer (QC): 2 Gait Training Does the Patient Walk?: Yes Walk 10 feet (QC): 4 Walk 50 ft with 2 Turns(QC): 3 Walk 150 ft (QC): 3 Walking 10ft/uneven surface-QC: 88 Gait Assistive Device: FWW Wheelchair Training Does the Pt Use a Wheelchair?: No Wheel 50 ft with 2 turns (QC): 9 Wheel 150 ft (QC): 9 Type of Wheelchair: N/A Stair Training 1 Step (curb) (QC): 3 4 Steps (QC): 3 12 Steps (QC): 9 Balance Picking up an Object (QC): 3 ADL-Treatment Eating (QC): 5 (per pt report) Oral Hygiene (QC): 4 Shower/Bathe Self (QC): 3 (assist LLE lower leg/foot) Upper Body Dressing (QC): 5 Lower Body Dressing (QC): 3 (Min A threading LLE) On/Off Footwear (QC): 3 (Min A overall. Assist donning L gripper sock.) Toileting Hygiene (QC): 4 (CGA) Assessment/Plan Assessment and Plan Assess & Plan/Chief Complaint Assessment: s/p left knee arthroplasty due to osteoarthritis Cellulitis post op left leg Dementia HTN HLP Cardiac murmur GERD Plan: IV abx PT OT Home meds Pain control OAC 08/22/2023: Restart GERD tx Increase insulin 08/23/2023: Monitor closely IV abx 08/24/2023: Monitor closely (1) Left leg cellulitis Status: Acute (2) Primary osteoarthritis of left knee (3) Debility Status: Acute (4) Dementia (5) Diabetic neuropathy KEIKO LYNN DO Aug 24, 2023 05:10
--- NOTE | 2023-08-24 05:11 | Individualized Plan of Care ---
Individualized Plan of Care Rehab Nursing IPOC Order Admission Date Aug 21, 2023 at 13:15 Current Orders Orders Admission Arrival Bed Request (08/21/23 13:28) Admission Order(Inpt,Obs,Sdc) (08/21/23 15:46) Vital Signs: Per Unit Policy ( 08,16,00 (08/21/23 15:46) Girma Fuentes 09,21 (08/21/23 15:46) Sequential Compression Device [id number] (08/21/23 15:46) Emissions Engineer-Inpt Rehab Con (08/21/23 15:46) Rehab Nursing Orders-Ipoc (08/21/23 15:46) Physical Therapy Rehab Orders (08/21/23 15:46) Occupational Therapy Rehab Ord (08/21/23 15:46) Speech Therapy Rehab Orders (08/21/23 15:46) Cbc And Automated Diff (08/22/23 06:00) Comprehensive Metabolic Panel (08/22/23 06:00) Precautions (Aru) (08/21/23 15:46) Weekly Weight WEEK (08/21/23 15:46) Rehab-Intensity Of Therapy (08/21/23 15:46) Alprazolam Tablet (Alprazolam Tablet) (08/21/23 16:00) Calcium Carbonate Chew Tablet (Calcium C (08/21/23 16:00) Diphenhydramine Tablet (Diphenhydramine (08/21/23 16:00) Docusate Sodium Capsule (Docusate Sodium (08/21/23 21:00) Docusate Sodium Capsule (Docusate Sodium (08/21/23 16:00) Bisacodyl Suppository (Bisacodyl Supposi (08/21/23 16:00) Lactulose Oral Solution (Enulose Oral So (08/21/23 16:00) Na Phos/Na Biphos Adult Enema (Na Phos/N (08/21/23 16:00) Guaifenesin/Codeine Syrup (Guaifenesin/C (08/21/23 16:00) Loperamide Capsule (Loperamide Capsule) (08/21/23 16:00) Melatonin Tablet (Melatonin Tablet) (08/21/23 16:00) Polyethylene Glycol Powder (Polyethylen (08/21/23 21:00) Ondansetron Oral Dissolve Tab (Ondanset (08/21/23 16:00) Senna W/Docusate Tablet (Senna W/Docusat (08/21/23 21:00) Acetaminophen Tablet (Acetaminophen Ta (08/21/23 16:00) Initiate Admission Nursing Pro .admission (08/21/23 15:46) Code/Resuscitation (08/21/23 15:49) Accucheck Achs ACHS (08/21/23 15:49) Dressing Order (Intervention) DAILY (08/21/23 15:49) Cho 60g/M 3snack (16-2000 Nick) (08/21/23 Dinner) Acetaminophen Tablet (Acetaminophen Ta (08/21/23 16:00) Albuterol Pre-Mix Nebs (Rt) (Albuterol (08/21/23 16:00) Allopurinol Tablet (Allopurinol Tablet) (08/22/23 09:00) Apixaban Tablet (Apixaban Tablet) (08/21/23 21:00) Atorvastatin Tablet (Atorvastatin Tablet (08/21/23 21:00) Calcitriol Capsule (Calcitriol Capsule) (08/22/23 09:00) Clopidogrel Tablet (Clopidogrel Tablet) (08/22/23 09:00) Docusate Sodium Capsule (Docusate Sodium (08/21/23 21:00) Bisacodyl Suppository (Bisacodyl Supposi (08/21/23 16:00) Lactulose Oral Solution (Enulose Oral So (08/21/23 16:00) Folic Acid Tablet (Folic Acid Tablet) (08/22/23 09:00) Furosemide Injection (Furosemide Injec (08/22/23 09:00) Gabapentin Capsule (Gabapentin Capsule) (08/21/23 21:00) Hydromorphone Injection (Hydromorphone (08/21/23 16:00) Magnesium Oxide Tablet (Magnesium Oxide (08/22/23 09:00) Milk Of Magnesia Oral Susp (Milk Of Magn (08/21/23 16:00) Polyethylene Glycol Powder (Polyethylen (08/21/23 16:00) Antacid Suspension (Antacid Suspension (08/21/23 16:00) Insulin Aspart (Per Unit) (Insulin Aspar (08/21/23 16:00) Sennosides Tablet (Sennosides Tablet) (08/21/23 21:00) Calcium Carbonate Chew Tablet (Calcium C (08/21/23 16:00) Vancomycin Injection (Vancomycin Injecti (08/21/23 16:00) Piperacillin/Tazobactam (Piperacillin/Ta (08/21/23 16:00) Ondansetron Injection (Ondansetron Inj (08/21/23 16:00) Ondansetron Oral Dissolve Tab (Ondanset (08/21/23 16:00) Amlodipine Tablet (Amlodipine Tablet) (08/22/23 09:00) Insulin Determir (Per Unit) (Insulin Det (08/21/23 21:00) Metoprolol Succinate (Xl) Tab (Metoprolo (08/21/23 21:00) Oxycodone Immediate Rel Tablet (Oxycodon (08/21/23 16:00) Consult General Surgery (08/21/23 15:49) Consult Orthopedic Surgery (08/21/23 15:49) Mat Initiate Protocol (08/21/23 15:49) Svn Small Volume Nebulizer (08/21/23 15:49) Svn Small Volume Nebulizer (08/21/23 15:49) Piperacillin/Tazobactam (Piperacillin/Ta (08/21/23 17:00) Vancomycin Injection (Vancomycin Injecti (08/21/23 17:00) Cho 60g/M 1snack (16-2000 Nick) (08/21/23 Dinner) Pantoprazole Tablet (Pantoprazole Tablet (08/22/23 21:00) Sucralfate Tablet (Sucralfate Tablet) (08/22/23 11:30) Pantoprazole Tablet (Pantoprazole Tablet (08/22/23 12:02) Pantoprazole Tablet (Pantoprazole Tablet (08/22/23 12:15) Pantoprazole Tablet (Pantoprazole Tablet (08/22/23 14:15) Insulin Determir (Per Unit) (Insulin Det (08/22/23 21:00) Insulin Aspart (Per Unit) (Insulin Aspar (08/22/23 17:00) Cbc And Automated Diff (08/24/23 06:00) Comprehensive Metabolic Panel (08/24/23 06:00) Trough Order (Trough Order-Pharmacy Orde (08/24/23 16:00) Vancomycin,Trough (08/24/23 16:00) Patient Visit (08/21/23 ) Pt Eval Low Complexity (08/21/23 ) Functional Activities, Ea 15 (08/21/23 ) Ex Neuromuscular, Ea 15 Min (08/21/23 ) Gait Training, Ea 15 Min (08/21/23 ) Exercise Therap, Ea 15 Min (08/21/23 ) Potassium Chloride (Tablet) (Potassium C (08/24/23 10:15) Potassium Chloride (Tablet) (Potassium C (08/25/23 07:00) Lactobacillus Acidophilus Cap (Acidophil (08/24/23 10:15) Cholestyramine Lite Powder (Cholestyrami (08/24/23 10:15) Cholestyramine Lite Powder (Cholestyrami (08/24/23 10:18) Patient Visit (08/24/23 ) Exercise Therap, Ea 15 Min (08/24/23 ) Gait Training, Ea 15 Min (08/24/23 ) Functional Activities, Ea 15 (08/24/23 ) Patient Visit (08/24/23 ) Speech Sound Lang Comp (08/24/23 ) Rehab Nursing Orders: Ongoing Assess. of Cognitive Status, Ongoing Assess. of Function Status, Bladder Management, Bladder Scan, Bladder Training, Bowel Management, Bowel Training, Disease Management & Educaiton, DVT Prophylaxis, Fall Prevention, Fluid/Electrolyte/Nutrition Mgmt, Infection Prevention, Medication Management & Education, Management of Risks & Complications, Management of Skin Intergrity, Nutrition Management, Pain Management, Patient/Family Support, Safety Management, Wound Management Intensity of Therapy to be met Patient to be seen: Min.3h per day/5 of 7d PT IPOC Problem List: Activity Tolerance, Functional Strength, Safety Treatment Plan: Continue Plan of Care Bed Mobility, Education, Functional Activity [place], Functional Strength, Group Therapy, Gait, Safety, Therapeutic Exercise, Transfers Treatment Duration: Aug 21, 2023 Frequency: At least 5 of 7 days/Wk (IRF) Estimated Hrs Per Day: 1.5 hours per day OT IPOC Problems: Decreased Activ Tolerance, Decreased UE Strength, Impaired Funct Balance, Impaired I ADL's, Impaired Self-Care Skills OT Treatment, Training and Edu: Yes Plan of Care: ADL Retraining, Functional Mobility, Group Exercise/Act as Ind, UE Funct Exercise/Act Treatment Duration: Sep 04, 2023 Frequency: At least 5 of 7 days/Wk (IRF) Estimated Hrs Per Day: 1.[address] IPOC Speech Therapy Treatment Plan: Discontinue ST Treatment Duration: Aug 24, 2023 Frequency: Modified Program (IRF) Estimated Hrs Per Day: Other Emissions Engineer/Case Mgmt Emissions Engineer/Case Managemen: Discharge Planning Dietitian/Cell Coverer Dietitian/Cell Coverer to monitor nutritional status and make changes and/or recommendations as needed and work with speech pathology on dietary upgrades as the occur. Physician IPOC Medical Issues being managed closely and that require the 24 hour availability of a physician: Recent cellulitis and failure at home following knee replacement will require close monitoring and maintained on IV abx due to severity of the cellulitis and will require close monitoring due to dementia Medical Issues: Bowel/Bladder Function, DVT Prophylaxis, Falls Precautions, Fluid/Electrolyte/Nutrition Balance, Infection Protection, Pain Management, Weight Bearing Precautions, Wound Care Brief Synthesis of Preadmission Screen, Post-Admission Evaluation, and Therapy Evaluations: PT OT will focus on regaining function with the use of AD in order to regain ADL independence and ultimately return home Medical Prognosis: Good Anticipated Length of Stay: 10 days KEIKO LYNN DO Aug 24, 2023 05:11
[2023-08-24 05:58] LABS: BASOPHILS # (AUTO) 0.1 10^3/uL (0.0-0.1); BASOPHILS % (AUTO) 1 % (0-10); EOSINOPHILS # (AUTO) 0.3 10^3/uL (0.0-0.3); EOSINOPHILS % (AUTO) 3 % (0-10); HEMATOCRIT 34 % (40-54); HEMOGLOBIN 10.1 g/dL (13.3-17.7); LYMPHOCYTES # (AUTO) 0.8 10^3/uL (1.0-4.0); LYMPHOCYTES % (AUTO) 9 % (12-44); MEAN CORPUSCULAR HEMOGLOBIN 25 pg (25-34); MEAN CORPUSCULAR HGB CONC 30 g/dL (32-36); MEAN CORPUSCULAR VOLUME 84 fL (80-99); MEAN PLATELET VOLUME 10.9 fL (9.0-12.2); MONOCYTES # (AUTO) 0.6 10^3/uL (0.0-1.0); MONOCYTES % (AUTO) 6 % (0-12); NEUTROPHILS # (AUTO) 7.4 10^3/uL (1.8-7.8); NEUTROPHILS % (AUTO) 81 % (42-75); PLATELET COUNT 366 10^3/uL (130-400); WHITE BLOOD COUNT 9.2 10^3/uL (4.3-11.0)
[2023-08-24 06:25] LABS: ALBUMIN 3.2 GM/DL (3.2-4.5); BILIRUBIN,TOTAL 0.8 MG/DL (0.1-1.0); CALCIUM 9.2 MG/DL (8.5-10.1); CREATININE SERUM 1.73 MG/DL (0.60-1.30); POTASSIUM 3.1 MMOL/L (3.6-5.0)
[2023-08-24] MEDS: inSUlin ASPART 1 UNIT/0.01 ML (PER UNIT) SC SCH ×7 (06:31→20:54)
[2023-08-24] MEDS: DOCUSATE SODIUM 100 MG CAPSULE PO SCH ×2 (07:37→21:00)
[2023-08-24] MEDS: SENNOSIDES 8.6 MG TABLET PO SCH ×2 (07:37→21:00)
--- NOTE | 2023-08-24 08:07 | Occupational Ther Daily Note ---
OT Current Status-Daily Note Subjective Pt agreeable to OT Tx. Rates pain 7-8/10 in L knee, RN notified. Pt's spouse arrived during tx, and in room with pt post tx. Mental Status/Objective Patient Orientation: Person, Place, Time, Situation ADL-Treatment Therapy Code Descriptions/Definitions Functional [place] Measure: 0=Not Assessed/NA 4=Minimal Assistance 1=Total Assistance 5=Supervision or Setup 2=Maximal Assistance 6=Modified [place] 3=Moderate Assistance 7=Complete IndependenceSCALE: Activities may be completed with or without assistive devices. 8-Qtswjtiqjn-bztbsuo completes the activity by him/herself with no assistance from a helper. 5-Set-up or Clean-up Assistance-helper sets up or cleans up; patient completes activity. [place] assists only prior to or following the activity. 4-Supervision or Touching Assistance-helper provides verbal cues and/or touching/steadying and/or contact guard assistance as patient completes activity. Assistance may be provided throughout the activity or intermittently. 3-Partial/Moderate Assistance-helper does LESS THAN HALF the effort. [place] lifts, holds or supports trunk or limbs, but provides less than half the effort. 2-Substantial/Maximal Assistance-helper does MORE THAN HALF the effort. [place] lifts or holds trunk or limbs and provides more than half the effort. 0-Gggofauqc-ydbzuq does ALL the effort. Patient does none of the effort to complete the activity. Or, the assistance of 2 or more helpers is required for the patient to complete the activity. If activity was not attempted, code reason: 7-Patient Refused. 9-Not Applicable-not attempted and the patient did not perform the activity before the current illness, exacerbation or injury. 10-Not Attempted due to Environmental Limitations-(lack of equipment, weather restraints, etc.). 88-Not Attempted due to Medical Conditions or Safety Concerns. Eating (QC): 6 Upper Body Dressing (QC): 5 Lower Body Dressing (QC): 4 (SBA) Other Treatment Pt in recliner, agreeable to OT Tx. Pt finished breakfast. Pt donned shirt with set up assistance, pants with SBA in standing. Sit to/from stand from recliner, SBA during ADLS. Pt declined oral care or other ADLs at this time. Pt stood from recliner, SBA, performed functional mobility using FWW, SBA-CGA to therapy gym. OT tx focused on increasing BUE strength and activity tolerance. Pt completed arm bike, x15 mins, 20 Watt resistance, 0 rest breaks. Pt used FWW to return to his room, SBA-CGA, transferring to recliner. Post tx, pt in recliner, call light in reach and all needs met, chair alarm activated. Education OT Patient Education: Correct positioning, Energy conservation, Exercise program, Modified ADL techniques, Progress toward Goal/Update tx plan, Purpose of tx/functional activities, Rehab process, Safety issues, Transfer techniques Teaching Recipient: Patient Teaching Methods: Discussion Response to Teaching: Verbalize Understanding OT Short Term Goals Short Term Goals Time Frame: Aug 28, 2023 Oral hygiene: 5 Shower/bathe self: 5 Lower body dressin Putting on/taking off footwear: 5 OT Prison Goals Prison Goals Time Frame: Sep 04, 2023 Acute change in mental status: 1 Inattention: 2 Disorganized thinkin Altered level of consciousness: 0 Eating (QC): 6 Oral Hygiene (QC): 6 Toileting Hygiene (QC): 6 Shower/Bathe Self (QC): 6 Upper Body Dressing (QC): 6 Lower Body Dressing (QC): 6 On/Off Footwear (QC): 6 Additional Goals: 1-Demonstrate ADL Tasks, 2-Verbalize Understanding, 3- ImproveStrength/[place] 1=Demonstrate adherence to instructed precautions during ADL tasks. 2=Patient will verbalize/demonstrate understanding of assistive devices /modifications for ADL. 3=Patient will improve strength/tolerance for activity to enable patient to perform ADL's. OT Education/Plan Problem List/Assessment Assessment: Decreased Activ Tolerance, Decreased UE Strength, Impaired Funct Balance, Impaired I ADL's, Impaired Self-Care Skills Discharge Recommendations Plan/Recommendations: Continue POC Treatment Plan/Plan of Care Patient would benefit from OT for education, treatment and training to promote independence in ADL's, mobility, safety and/or upper extremity function for ADL's. Plan of Care: ADL Retraining, Functional Mobility, Group Exercise/Act as Ind, UE Funct Exercise/Act Treatment Duration: Sep 04, 2023 Frequency: At least 5 of 7 days/Wk (IRF) Estimated Hrs Per Day: 1.5 hours per day Agreement: Yes Rehab Potential: Good Time Start Time: 07:30 Stop Time: 08:30 DATE: Aug 24, 2023 Total Time Billed (hr/min): 60 Billed Treatment Time 1, ADL 3 (40'), EX (20') LUIS NETTLES OT Aug 24, 2023 08:07
[2023-08-24] MEDS: amLODIPine 10 MG TABLET PO SCH (08:22)
[2023-08-24] MEDS: CLOPIDOGREL 75 MG TABLET PO SCH (08:22)
[2023-08-24] MEDS: ALLOPURINOL 100 MG TABLET PO SCH (08:22)
[2023-08-24] MEDS: PANTOPRAZOLE 40 MG TABLET PO SCH ×2 (08:22→20:54)
[2023-08-24] MEDS: MAGNESIUM OXIDE 400 MG TABLET PO SCH (08:22)
[2023-08-24] MEDS: CALCITRIOL 0.25 MCG CAPSULE PO SCH (08:22)
[2023-08-24] MEDS: FOLIC ACID 1 MG TAB PO SCH (08:22)
[2023-08-24] MEDS: FUROSEMIDE INJECTION 40 MG/4 ML VIAL IVP SCH (08:23)
[2023-08-24] MEDS: APIXABAN 2.5 MG TABLET PO SCH ×2 (08:23→20:53)
[2023-08-24] MEDS: GABAPENTIN 100 MG CAPSULE PO SCH ×2 (08:23→20:53)
[2023-08-24] MEDS: oxyCODONE IMMEDIATE RELEASE 5 MG TABLET PO PRN ×3 (08:25→20:54)
[2023-08-24 08:41] VITALS: BP 153/69
[2023-08-24] MEDS ORDERED: CHOLESTYRAMINE LITE 4 GM PACKET PO ONE (10:15)
[2023-08-24] MEDS ORDERED: POTASSIUM CHLORIDE 20 MEQ TABLET PO ONE (10:15)
[2023-08-24] MEDS: LACTOBACILLUS ACIDOPHILUS (PROBIOTIC) CAPSULE PO SCH ×3 (10:43→17:01)
[2023-08-24] MEDS: CHOLESTYRAMINE LITE 4 GM PACKET PO SCH ×2 (11:43→20:54)
--- NOTE | 2023-08-24 11:53 | ST Cognitive Linguistic Eval ---
Speech Evaluation-General Medical Diagnosis s/p L TKA; LLE cellulitis Onset Date: Aug 19, 2023 Therapy Diagnosis Therapy Diagnosis: Dementia Precautions Precautions: Fall Precautions/Isolations: Standard Precautions Referral Referring Physician: Dr. Lacey Reason for Referral: Consult Medical History Pertinent Medical History: CAD, DM, HTN, PVD Pt's reported diagnosis of dementia in April 2023. Pt admitted to [facility] for cellulitis s/p L TKA. Social History Current Living Status: Spouse Speech PLF-Current Status Prior Level of Function Spouse maintains organization of appointments using calendar, and maintains daily routine with the pt. The pt organizes his medications, with supervision. Subjective Pt and spouse present, both were appropriate during session. Language Eval: Auditory Follows General Conversations: Functional Language Eval: Verbal Language Completes Spontaneous Greeting: Functional Requests Basic Needs: Functional States Basic Personal Info: Functional Expresses Complex Ideas: Mild Objective Formal/Standardized Tests SLUMS examination Results The pt earned 24/30 on the SLUMS, placing him within mild range of impairment. He was oriented to place and time, recall of words was 3/5. Recall of story details was 3/4. Clock drawing was accurate for number placement and time, hand placement did not have central originating source, The pt was able to verbalize safety precautions for left knee, and sequence ambulation with walker. Oral Motor/Speech Production Clear speech. Swallow was screened with water, and during swallowing of PO meds. No concerns were noted. Impression Mild stage dementia, spouse and pt are reportedly managing well at home. Spouse provides routine and structure, and manages time/appointments with the pt using calendar. Speech-Plan Treatment Plan Speech Therapy Treatment Plan: Discontinue ST Frequency: Modified Program (IRF) (No treatment recommended) Estimated Hrs Per Day: Other (No treatment) Rehab Potential: Good Pt/Family Agrees to Plan: Yes Time Speech Therapy Time In: 10:35 Speech Therapy Time Out: 11:10 DATE: Aug 24, 2023 Total Billed Time: 35 Billed Treatment Time 1 SPSJASMEET (35 min) MARYANN GARDINER Aug 24, 2023 11:53
--- NOTE | 2023-08-24 13:50 | Occupational Ther Daily Note ---
OT Current Status-Daily Note Subjective Pt reports 8/10 pain TERRIE RN notified and provided pain medication. ADL-Treatment Therapy Code Descriptions/Definitions Functional [place] Measure: 0=Not Assessed/NA 4=Minimal Assistance 1=Total Assistance 5=Supervision or Setup 2=Maximal Assistance 6=Modified [place] 3=Moderate Assistance 7=Complete IndependenceSCALE: Activities may be completed with or without assistive devices. 2-Jhkdqiwjmp-fzacwdd completes the activity by him/herself with no assistance from a helper. 5-Set-up or Clean-up Assistance-helper sets up or cleans up; patient completes activity. [place] assists only prior to or following the activity. 4-Supervision or Touching Assistance-helper provides verbal cues and/or t ouching/steadying and/or contact guard assistance as patient completes activity. Assistance may be provided throughout the activity or intermittently. 3-Partial/Moderate Assistance-helper does LESS THAN HALF the effort. [place] lifts, holds or supports trunk or limbs, but provides less than half the effort. 2-Substantial/Maximal Assistance-helper does MORE THAN HALF the effort. [place] lifts or holds trunk or limbs and provides more than half the effort. 0-Qfshuxusr-wdulnu does ALL the effort. Patient does none of the effort to complete the activity. Or, the assistance of 2 or more helpers is required for the patient to complete the activity. If activity was not attempted, code reason: 7-Patient Refused. 9-Not Applicable-not attempted and the patient did not perform the activity before the current illness, exacerbation or injury. 10-Not Attempted due to Environmental Limitations-(lack of equipment, weather restraints, etc.). 88-Not Attempted due to Medical Conditions or Safety Concerns. Other Treatment OT/PT cotreat due to skill of 2 clinicians required which a rehabilitation clerk could not perform in order to coordinate UE/LEs, decrease fall risk, and due to pt's limitations in strength, activity tolerance, pain, mobility/transfers. OT focused on UE placement, cues for sequencing and safety. PT focused on LE placement, gross overall movement, transfers/mobility. Pt stood from recliner, CGA, then performed functional mobility around [facility] common area/2nd floor, CGA (220', 150'), using FWW. Pt stood from chair without arm rests, CGA with VCs for UE placement. Post tx, pt in therapy gym with PT, all needs met. OT Short Term Goals Short Term Goals Time Frame: Aug 28, 2023 Oral hygiene: 5 Shower/bathe self: 5 Lower body dressin Putting on/taking off footwear: 5 OT Strategic Sourcing Consultant Goals Fdc Goals Time Frame: Sep 04, 2023 Acute change in mental status: 1 Inattention: 2 Disorganized thinkin Altered level of consciousness: 0 Eating (QC): 6 Oral Hygiene (QC): 6 Toileting Hygiene (QC): 6 Shower/Bathe Self (QC): 6 Upper Body Dressing (QC): 6 Lower Body Dressing (QC): 6 On/Off Footwear (QC): 6 Additional Goals: 1-Demonstrate ADL Tasks, 2-Verbalize Understanding, 3- ImproveStrength/[place] 1=Demonstrate adherence to instructed precautions during ADL tasks. 2=Patient will verbalize/demonstrate understanding of assistive devices/modifications for ADL. 3=Patient will improve strength/tolerance for activity to enable patient to perform ADL's. OT Education/Plan Problem List/Assessment Assessment: Decreased Activ Tolerance, Decreased UE Strength, Impaired Funct Balance, Impaired I ADL's, Impaired Self-Care Skills Discharge Recommendations Plan/Recommendations: Continue POC Treatment Plan/Plan of Care Patient would benefit from OT for education, treatment and training to promote independence in ADL's, mobility, safety and/or upper extremity function for ADL's. Plan of Care: ADL Retraining, Functional Mobility, Group Exercise/Act as Ind, UE Funct Exercise/Act Treatment Duration: Sep 04, 2023 Frequency: At least 5 of 7 days/Wk (IRF) Estimated Hrs Per Day: 1.5 hours per day Agreement: Yes Rehab Potential: Good Time Start Time: 13:00 Stop Time: 13:30 DATE: Aug 24, 2023 Total Time Billed (hr/min): 30 Billed Treatment Time 1, FA 2 LUIS NETTLES OT Aug 24, 2023 13:50
--- NOTE | 2023-08-24 15:42 | Physical Therapy Daily Note ---
PT Daily Note-Current Subjective Pt is agreeable to PT. Rated L knee pain at 8/10. Pain Numeric Pain Scale: 8 Location: Left Location Body Site: Knee Section J - Health Conditions 1. Rarely or not at all 2. Occasionally 3. Frequently 4. Almost constantly 8. Unable to answer Pain Effect on Sleep: 3 Pain Interference with Therapy: 4 Pain Interference w/Day-to-Day: 3 Transfers SCALE: Activities may be completed with or without assistive devices. 8-Zbmmtvabbg-xirpafu completes the activity by him/herself with no assistance from a helper. 5-Set-up or Clean-up Assistance-helper sets up or cleans up; patient completes activity. [place] assists only prior to or following the activity. 4-Supervision or Touching Assistance-helper provides verbal cues and/or touching/steadying and/or contact guard assistance as patient completes activity. Assistance may be provided throughout the activity or intermittently. 3-Partial/Moderate Assistance-helper does LESS THAN HALF the effort. [place] lifts, holds or supports trunk or limbs, but provides less than half the effort. 2-Substantial/Maximal Assistance-helper does MORE THAN HALF the effort. [place] lifts or holds trunk or limbs and provides more than half the effort. 1-Fvqnekfym-fkxzzl does ALL the effort. Patient does none of the effort to co mplete the activity. Or, the assistance of 2 or more helpers is required for the patient to complete the activity. If activity was not attempted, code reason: 7-Patient Refused. 9-Not Applicable-not attempted and the patient did not perform the activity before the current illness, exacerbation or injury. 10-Not Attempted due to Environmental Limitations-(lack of equipment, weather restraints, etc.). 88-Not Attempted due to Medical Conditions or Safety Concerns. Sit to Stand (QC): 4 Chair/Jlb-qa-Mrpoq Xfer(QC): 4 Weight Bearing Right Lower Extremity: Right Weight Bearing/Tolerated Left Lower Extremity: Left Weight Bearing/Tolerated Gait Training Does the Patient Walk?: Yes Walk 10 feet (QC): 4 Walk 50 ft with 2 Turns(QC): 4 Walk 150 ft (QC): 4 Gait Persons Needed: 1 Gait Assistive Device: FWW Wheelchair Training Does the Pt Use a Wheelchair?: No Wheel 50 ft with 2 turns (QC): 9 Wheel 150 ft (QC): 9 Type of Wheelchair: N/A Treatments PT/OT co-tx due to skill of 2 clinicians required which a director of rehabilitation could not perform in order to coordinate UE/LEs, decrease fall risk, and due to pt's limitations in strength, activity tolerance, pain, mobility/transfers. PT focused on LE placement, gross overall movement, transfers/mobility. OT focused on UE placement, cues for sequencing and safety. Pt completed functional transfers with CGA/SBA. Pt ambulated 220ft, 150ft, and 100ft with the FWW and CGA. Pt completed seated B LE Ther Ex x 15 reps each with the red Tband. Pt completed L knee ext and flexion stretch 3 x 1 min each. Pt completed 15 min on the nu-step on level 1. After treatment session, pt was lying supine in bed with call light in reach and all needs met. Assessment Current Status: Good Progress Pt tolerated PT well with good effort PT Short Term Goals Short Term Goals Time Frame: Sep 02, 2023 Roll Left & Right: 5 Sit to lyin Lying to sitting on side of be: 5 Sit to stand: 5 Chair/brm-jw-qmtqd transfer: 5 Toilet transfer: 5 Car transfer: 5 Walk 10 feet: 5 Walk 50 feet with two turns: 5 Walk 150 feet: 5 Walking 10ft on uneven surface: 5 1 step (curb): 5 4 steps: 5 12 steps: 9 Picking up objects: 5 Does pt use a wc or scooter: No Wheel 50ft w/2 turns: 9 Wheel 150 feet: 9 Type: N/A PT [facility] Goals Cell Liner Goals PT [facility] Goals Time Frame: Sep 09, 2023 Roll Left & Right (QC): 6 Sit to Lying (QC): 6 Lying-Sitting on Side/Bed(QC): 6 Sit to Stand (QC): 6 Chair/Qqz-cj-Cuaiu Xfer(QC): 6 Toilet Transfer (QC): 6 Car Transfer (QC): 6 Does the Patient Walk: Yes Walk 10 feet (QC): 6 Walk 50ft with 2 Turns (QC): 6 Walk 150 ft (QC): 6 Walking 10ft on Uneven Surface: 6 1 Step (curb) (QC): 9 4 Steps (QC): 9 12 Steps (QC): 9 Picking up an Object (QC): 6 Does the Pt use WC or Scooter?: No Wheel 50 feet with 2 turns (QC: 9 Type: N/A Wheel 150 feet: 9 Type: N/A PT Plan Problem List Problem List: Activity Tolerance, Functional Strength, Safety, Balance, Gait, Transfer, Bed Mobility, ROM Treatment/Plan Treatment Plan: Continue Plan of Care Treatment Plan: Bed Mobility, Education, Functional Activity [place], Functional Strength, Group Therapy, Gait, Safety, Therapeutic Exercise, Transfers Treatment Duration: Aug 21, 2023 Frequency: At least 5 of 7 days/Wk (IRF) Estimated Hrs Per Day: 1.5 hours per day Patient and/or Family Agrees t: Yes Safety Risks/Education Patient Education: Gait Training, Transfer Techniques, Correct Positioning, Safety Issues Teaching Recipient: Patient Teaching Methods: Demonstration, Discussion Response to Teaching: Verbalize Understanding, Return Demonstration, Reinforcement Needed Discharge Recommendations Therapy Discharge Recommendati: Home & Family, Post Acute PT Equpiment Recommendations-D/C: None Discharge Status/Home Program Cont per POC Barriers to Progress Weakness, endurance, cognition/self-limiting Target Placement Home with spouse Time Time In: 1300 Time Out: 1430 DATE: Aug 24, 2023 Total Billed Treatment Time: 90 Total Billed Treatment 90 min total from [id number]; 30 min co-tx from [id number] 1 visit EX x 2 GT x 2 FA x 2 DONNA TOMLIN PT Aug 24, 2023 15:42
[2023-08-24] MEDS ORDERED: TROUGH ORDER-PHARMACY XX NR (16:00)
[2023-08-24] MEDS: VANCOMYCIN INJECTION 1,000 MG in NS (IVPB) 250 ML 250 ML IV SCH (17:05)
[2023-08-24 20:24] VITALS: BP 170/72
[2023-08-24] MEDS: inSUlin DETERMIR 1 UNIT/0.01 ML (CHARGE PER UNIT) SQ SCH (20:54)
[2023-08-25] MEDS: PIPERACILLIN/Tazobactam 4.5 GM in NS (IVPB) 100 ML 100 ML IV SCH ×2 (00:14→09:08)
[2023-08-25] MEDS: oxyCODONE IMMEDIATE RELEASE 5 MG TABLET PO PRN ×4 (02:42→18:49)
[2023-08-25] MEDS: inSUlin ASPART 1 UNIT/0.01 ML (PER UNIT) SC SCH ×7 (05:32→20:11)
[2023-08-25] MEDS: POTASSIUM CHLORIDE 10 MEQ TABLET PO SCH (06:41)
[2023-08-25 08:00] VITALS: BP 149/67
--- NOTE | 2023-08-25 08:20 | Occupational Ther Daily Note ---
OT Current Status-Daily Note Subjective Pt alert, sitting in recliner. Pt agrees to therapy therapy. No c/o pain. Mental Status/Objective Patient Orientation: Person, Place, Time, Situation ADL-Treatment Pt. required 10 seconds to motor plan when setting up own meal. Pt able to open packages/containers by self then uses regular utensils to eat. Set up required task set up for shower for adjusting water temp, supervision/SBA sitting on shower bench 100% of the time using grabbars, hand held shower and LH sponge. Pt. was SBA with sit to stands, Pt. required SBA w/ ambulation from chair to toilet w/ FWW. SBA for toilet transfer using grabbars and FWW. Pt required cues to hike pants over hips before sitting on toilet, SBA. Pt required assist to doff lower body clothing over feet then used pediatric pathologist, with assist and vc, to thread briefs over feet then was able to thread feet into pants with SBA, CGA to hike pants over hips due to 1 LOB in standing (able to right self with grabbars). Set up for UBD. Pt educated on sock aide to don socks, pt demon strated understanding. After session, pt sitting in recliner with call light/phone in reach. All needs met. Safety measures. Therapy Code Descriptions/Definitions Functional [place] Measure: 0=Not Assessed/NA 4=Minimal Assistance 1=Total Assistance 5=Supervision or Setup 2=Maximal Assistance 6=Modified [place] 3=Moderate Assistance 7=Complete IndependenceSCALE: Activities may be completed with or without assistive devices. 1-Vtlblvchpo-cyuutjy completes the activity by him/herself with no assistance from a helper. 5-Set-up or Clean-up Assistance-helper sets up or cleans up; patient completes activity. [place] assists only prior to or following the activity. 4-Supervision or Touching Assistance-helper provides verbal cues and/or touching/steadying and/or contact guard assistance as patient completes activity. Assistance may be provided throughout the activity or intermittently. 3-Partial/Moderate Assistance-helper does LESS THAN HALF the effort. [place] lifts, holds or supports trunk or limbs, but provides less than half the effort. 2-Substantial/Maximal Assistance-helper does MORE THAN HALF the effort. [place] lifts or holds trunk or limbs and provides more than half the effort. 7-Rpdswiciz-xpogva does ALL the effort. Patient does none of the effort to complete the activity. Or, the assistance of 2 or more helpers is required for the patient to complete the activity. If activity was not attempted, code reason: 7-Patient Refused. 9-Not Applicable-not attempted and the patient did not perform the activity before the current illness, exacerbation or injury. 10-Not Attempted due to Environmental Limitations-(lack of equipment, weather restraints, etc.). 88-Not Attempted due to Medical Conditions or Safety Concerns. Eating (QC): 6 Shower/Bathe Self (QC): 4 Upper Body Dressing (QC): 5 Lower Body Dressing (QC): 3 (Mod A) On/Off Footwear: 2 Toileting Hygiene (QC): 3 Toilet Transfer (QC): 4 Education OT Patient Education: Modified ADL techniques, Use of adapted equipment Teaching Recipient: Patient Teaching Methods: Demonstration, Discussion Response to Teaching: Verbalize Understanding, Return Demonstration, Reinforcement Needed OT Short Term Goals Short Term Goals Time Frame: Aug 28, 2023 Oral hygiene: 5 Shower/bathe self: 5 Lower body dressin Putting on/taking off footwear: 5 OT [facility] Goals [facility] Goals Time Frame: Sep 04, 2023 Acute change in mental status: 1 Inattention: 2 Disorganized thinkin Altered level of consciousness: 0 Eating (QC): 6 Oral Hygiene (QC): 6 Toileting Hygiene (QC): 6 Shower/Bathe Self (QC): 6 Upper Body Dressing (QC): 6 Lower Body Dressing (QC): 6 On/Off Footwear (QC): 6 Additional Goals: 1-Demonstrate ADL Tasks, 2-Verbalize Understanding, 3- ImproveStrength/[place] 1=Demonstrate adherence to instructed precautions during ADL tasks. 2=Patient will verbalize/demonstrate understanding of assistive devices/m odifications for ADL. 3=Patient will improve strength/tolerance for activity to enable patient to perform ADL's. OT Education/Plan Problem List/Assessment Assessment: Decreased Safety Aware, Impaired Cognition, Impaired Self-Care Skills Discharge Recommendations Plan/Recommendations: Continue POC Treatment Plan/Plan of Care Patient would benefit from OT for education, treatment and training to promote independence in ADL's, mobility, safety and/or upper extremity function for ADL's. Plan of Care: ADL Retraining, Functional Mobility, Group Exercise/Act as Ind, UE Funct Exercise/Act Treatment Duration: Sep 04, 2023 Frequency: At least 5 of 7 days/Wk (IRF) Estimated Hrs Per Day: 1.5 hours per day Agreement: Yes Rehab Potential: Good Time Start Time: 07:15 Stop Time: 08:45 DATE: Aug 25, 2023 Total Time Billed (hr/min): 90 Billed Treatment Time 1 visit-ADL 6 (90 min) YAZAN WALDRON Aug 25, 2023 08:20
[2023-08-25] MEDS: GABAPENTIN 100 MG CAPSULE PO SCH ×2 (08:58→19:55)
[2023-08-25] MEDS: CLOPIDOGREL 75 MG TABLET PO SCH (08:58)
[2023-08-25] MEDS: LACTOBACILLUS ACIDOPHILUS (PROBIOTIC) CAPSULE PO SCH ×3 (08:59→18:11)
[2023-08-25] MEDS: MAGNESIUM OXIDE 400 MG TABLET PO SCH (08:59)
[2023-08-25] MEDS: PANTOPRAZOLE 40 MG TABLET PO SCH ×2 (08:59→19:55)
[2023-08-25] MEDS: ACETAMINOPHEN 325 MG TABLET PO PRN (08:59)
[2023-08-25] MEDS: amLODIPine 10 MG TABLET PO SCH (08:59)
[2023-08-25] MEDS: ALLOPURINOL 100 MG TABLET PO SCH (08:59)
[2023-08-25] MEDS: CALCITRIOL 0.25 MCG CAPSULE PO SCH (09:00)
[2023-08-25] MEDS: FOLIC ACID 1 MG TAB PO SCH (09:00)
[2023-08-25] MEDS: APIXABAN 2.5 MG TABLET PO SCH ×2 (09:01→19:55)
[2023-08-25] MEDS: FUROSEMIDE INJECTION 40 MG/4 ML VIAL IVP SCH (09:02)
[2023-08-25] MEDS: DOCUSATE SODIUM 100 MG CAPSULE PO SCH ×2 (09:03→20:00)
[2023-08-25] MEDS: SENNOSIDES 8.6 MG TABLET PO SCH ×2 (09:03→20:00)
[2023-08-25 09:08] VITALS: BP 175/70
--- NOTE | 2023-08-25 10:26 | PM&R Progress Note ---
Subjective HPI/CC On Admission Date Seen by Provider: Aug 25, 2023 Time Seen by Provider: 10:30 Subjective/Events-last exam 08/25/2023: Patient doing well Denies any new issues Left leg much improved Changing IV antibiotics to oral 08/24/2023: Much improved IV abx maintained due to severity of the infection Labs stable at bedside 08/23/2023: Doing better Pain controlled Left leg much improved cellulitis PPI and Carafate helpful at bedside 08/22/2023: No major issues Will recheck labs Thursday IV abx maintained No falls Pain controlled PPI and Carafate will be restarted Review of Systems General: Fatigue, Malaise Objective Exam Vital Signs Vital Signs Date Time Temp Pulse Resp B/P (MAP) Pulse Ox O2 Delivery O2 Flow Rate FiO2 08/25/23 16:28 64 165/69 (101) 08/25/23 09:47 Room Air 08/25/23 08:00 36.5 19 94 08/24/23 21:00 1.00 08/22/23 19:48 21 Capillary Refill : General Appearance: No Apparent Distress, WD/WN, Chronically ill HEENT: PERRL/EOMI, Normal ENT Inspection, Pharynx Normal Neck: Full Range of Motion, Normal Inspection, Non Tender, Supple, Carotid Bruit Respiratory: Chest Non Tender, Lungs Clear, Normal Breath Sounds, No Accessory Muscle Use, No Respiratory Distress, Decreased Breath Sounds Cardiovascular: Regular Rate, Rhythm, No Gallop, No JVD, Normal Peripheral Pulses, Systolic Murmur Gastrointestinal: Normal Bowel Sounds, No Organomegaly, No Pulsatile Mass, Non Tender, Soft Back: Normal Inspection, No CVA Tenderness, No Vertebral Tenderness Extremity: Normal Capillary Refill, Normal Inspection, Normal Range of Motion (except left leg), Non Tender, No Calf Tenderness, No Pedal Edema Neurologic/Psychiatric: Alert, Oriented x3, postdoctoral research associate II-XII Norm as Tested, Depressed Affect, Disoriented (subtle poor recall), Motor Weakness (left leg due to pain) Skin: Normal Color, Warm/Dry, Rash (left knee and tibia redness) Lymphatic: No Adenopathy Results/Procedures Lab Patient resulted labs reviewed. FIM Transfers Therapy Code Descriptions/Definitions Functional [place] Measure: 0=Not Assessed/NA 4=Minimal Assistance 1=Total Assistance 5=Supervision or Setup 2=Maximal Assistance 6=Modified [place] 3=Moderate Assistance 7=Complete IndependenceSCALE: Activities may be completed with or without assistive devices. 6-Qtrhcjxxqs-nfeprfj completes the activity by him/herself with no assistance from a helper. 5-Set-up or Clean-up Assistance-helper sets up or cleans up; patient completes activity. [place] assists only prior to or following the activity. 4-Supervision or Touching Assistance-helper provides verbal cues and/or touching/steadying and/or contact guard assistance as patient completes activity. Assistance may be provided throughout the activity or intermittently. 3-Partial/Moderate Assistance-helper does LESS THAN HALF the effort. [place] lifts, holds or supports trunk or limbs, but provides less than half the effort. 2-Substantial/Maximal Assistance-helper does MORE THAN HALF the effort. [place] lifts or holds trunk or limbs and provides more than half the effort. 5-Udyjmqevg-dzrbdt does ALL the effort. Patient does none of the effort to complete the activity. Or, the assistance of 2 or more helpers is required for the patient to complete the activity. If activity was not attempted, code reason: 7-Patient Refused. 9-Not Applicable-not attempted and the patient did not perform the activity before the current illness, exacerbation or injury. 10-Not Attempted due to Environmental Limitations-(lack of equipment, weather restraints, etc.). 88-Not Attempted due to Medical Conditions or Safety Concerns. Roll Left to Right (QC): 3 Sit to Lying (QC): 3 Sit to Stand (QC): 4 Chair/Ala-mz-Bpxtt Xfer(QC): 4 Car Transfer (QC): 2 Gait Training Does the Patient Walk?: Yes Walk 10 feet (QC): 4 Walk 50 ft with 2 Turns(QC): 4 Walk 150 ft (QC): 4 Walking 10ft/uneven surface-QC: 88 Gait Persons Needed: 1 Gait Assistive Device: FWW Wheelchair Training Does the Pt Use a Wheelchair?: No Wheel 50 ft with 2 turns (QC): 9 Wheel 150 ft (QC): 9 Type of Wheelchair: N/A Stair Training 1 Step (curb) (QC): 3 4 Steps (QC): 3 12 Steps (QC): 9 Balance Picking up an Object (QC): 3 ADL-Treatment Eating (QC): 6 Oral Hygiene (QC): 4 Shower/Bathe Self (QC): 4 Upper Body Dressing (QC): 5 Lower Body Dressing (QC): 3 (Mod A) On/Off Footwear (QC): 2 Toileting Hygiene (QC): 3 Toilet Transfer (QC): 4 Assessment/Plan Assessment and Plan Assess & Plan/Chief Complaint Assessment: s/p left knee arthroplasty due to osteoarthritis Cellulitis post op left leg Dementia HTN HLP Cardiac murmur GERD Plan: IV abx PT OT Home meds Pain control OAC 08/22/2023: Restart GERD tx Increase insulin 08/23/2023: Monitor closely IV abx 08/24/2023: Monitor closely 08/25/2023: Supportive care Continue DVT prophylaxis (1) Left leg cellulitis Status: Acute (2) Primary osteoarthritis of left knee (3) Debility Status: Acute (4) Dementia (5) Diabetic neuropathy KEIKO LYNN DO Aug 25, 2023 10:26
[2023-08-25] MEDS: CHOLESTYRAMINE LITE 4 GM PACKET PO SCH ×2 (10:48→20:00)
--- NOTE | 2023-08-25 10:51 | Physical Therapy Daily Note ---
PT Daily Note-Current Subjective Pt sitting in recliner upon arrival. Pt agrees to PT. Pain Numeric Pain Scale: 5-Moderate Pain Location: Incisional, Left Location Body Site: Knee Pain Description: Ache, Tightness Section J - Health Conditions 1. Rarely or not at all 2. Occasionally 3. Frequently 4. Almost constantly 8. Unable to answer Pain Effect on Sleep: 3 Pain Interference with Therapy: 3 Pain Interference w/Day-to-Day: 3 Mental Status Patient Orientation: Person, Place, Time, Situation Attachments: IV Transfers SCALE: Activities may be completed with or without assistive devices. 1-Niolsnmuqw-ofzqugw completes the activity by him/herself with no assistance from a helper. 5-Set-up or Clean-up Assistance-helper sets up or cleans up; patient completes activity. [place] assists only prior to or following the activity. 4-Supervision or Touching Assistance-helper provides verbal cues and/or touching/steadying and/or contact guard assistance as patient completes activity. Assistance may be provided throughout the activity or intermittently. 3-Partial/Moderate Assistance-helper does LESS THAN HALF the effort. [place] lifts, holds or supports trunk or limbs, but provides less than half the effort. 2-Substantial/Maximal Assistance-helper does MORE THAN HALF the effort. [place] lifts or holds trunk or limbs and provides more than half the effort. 4-Hknxukubf-kqwabr does ALL the effort. Patient does none of the effort to complete the activity. Or, the assistance of 2 or more helpers is required for the patient to complete the activity. If activity was not attempted, code reason: 7-Patient Refused. 9-Not Applicable-not attempted and the patient did not perform the activity before the current illness, exacerbation or injury. 10-Not Attempted due to Environmental Limitations-(lack of equipment, weather restraints, etc.). 88-Not Attempted due to Medical Conditions or Safety Concerns. Sit to Stand (QC): 5 Toilet Transfer (QC): 5 Weight Bearing Right Lower Extremity: Right Weight Bearing/Tolerated Left Lower Extremity: Left Weight Bearing/Tolerated Gait Training Does the Patient Walk?: Yes Distance: 300', 150', 80' Walk 10 feet (QC): 5 Walk 50 ft with 2 Turns(QC): 5 Walk 150 ft (QC): 5 Gait Assistive Device: FWW Wheelchair Training Does the Pt Use a Wheelchair?: No Exercises NuStep Minutes: 15 NuStep Workload: 1 Treatments Pt TF to standing and amb to BR. After toileting, pt amb in hallway before taking RB. Pt amb again back to Therapy Gym. Pt uses NuStep for 15m at WL 1. Pt is issued and reviews written HEP for Supine & Seated Ex before amb in hallway again. Pt returns to room to rest in recliner at end of tx. All needs met, call light in hand. Assessment Current Status: Good Progress Pt rock. tx well and is gaining both strength and activity tolerance. PT Short Term Goals Short Term Goals Time Frame: Sep 02, 2023 Roll Left & Right: 5 Sit to lyin Lying to sitting on side of be: 5 Sit to stand: 5 Chair/mfn-im-msoxx transfer: 5 Toilet transfer: 5 Car transfer: 5 Walk 10 feet: 5 Walk 50 feet with two turns: 5 Walk 150 feet: 5 Walking 10ft on uneven surface: 5 1 step (curb): 5 4 steps: 5 12 steps: 9 Picking up objects: 5 Does pt use a wc or scooter: No Wheel 50ft w/2 turns: 9 Wheel 150 feet: 9 Type: N/A PT Design Tech Goals Design Tech Goals PT [facility] Goals Time Frame: Sep 09, 2023 Roll Left & Right (QC): 6 Sit to Lying (QC): 6 Lying-Sitting on Side/Bed(QC): 6 Sit to Stand (QC): 6 Chair/Yaw-zt-Mhkoh Xfer(QC): 6 Toilet Transfer (QC): 6 Car Transfer (QC): 6 Does the Patient Walk: Yes Walk 10 feet (QC): 6 Walk 50ft with 2 Turns (QC): 6 Walk 150 ft (QC): 6 Walking 10ft on Uneven Surface: 6 1 Step (curb) (QC): 9 4 Steps (QC): 9 12 Steps (QC): 9 Picking up an Object (QC): 6 Does the Pt use WC or Scooter?: No Wheel 50 feet with 2 turns (QC: 9 Type: N/A Wheel 150 feet: 9 Type: N/A PT Plan Problem List Problem List: Activity Tolerance Treatment/Plan Treatment Plan: Continue Plan of Care Treatment Plan: Bed Mobility, Education, Functional Activity [place], Functional Strength, Group Therapy, Gait, Safety, Therapeutic Exercise, Transfers Treatment Duration: Aug 21, 2023 Frequency: At least 5 of 7 days/Wk (IRF) Estimated Hrs Per Day: 1.5 hours per day Patient and/or Family Agrees t: Yes Safety Risks/Education Patient Education: Gait Training, Transfer Techniques, Issued Written HEP, Correct Positioning, Safety Issues Teaching Recipient: Patient Teaching Methods: Discussion Response to Teaching: Verbalize Understanding Time Time In: 0915 Time Out: 1045 DATE: Aug 25, 2023 Total Billed Treatment Time: 90 Total Billed Treatment 1, GT x2 (30m), EX x2 (30m) & FA x2 (30m) MARIELLE ARREOLA MOTOR PATROL OPERATOR Aug 25, 2023 10:51
[2023-08-25] MEDS ORDERED: ATOR20TA66 PO (12:05)
[2023-08-25] MEDS ORDERED: FURO40TA4 PO (12:05)
[2023-08-25] MEDS ORDERED: METO50TA7 PO (12:05)
[2023-08-25] MEDS ORDERED: LOSA50TA63 PO (12:05)
[2023-08-25] MEDS ORDERED: POTA-164 PO (12:05)
[2023-08-25] MEDS ORDERED: LACT1CAP7 PO (12:05)
[2023-08-25] MEDS ORDERED: CLOP75TA28 PO (12:05)
[2023-08-25] MEDS ORDERED: APIX2.5T PO (12:05)
[2023-08-25] MEDS ORDERED: SUCR1TAB PO (12:05)
[2023-08-25] MEDS ORDERED: AMLO-251 PO (12:05)
[2023-08-25] MEDS ORDERED: OXC5T PO (12:05)
[2023-08-25] MEDS ORDERED: CHOL4PAC3 PO (12:05)
[2023-08-25] MEDS ORDERED: GABA-486 PO (12:05)
[2023-08-25] MEDS ORDERED: ALLO100T PO (12:05)
[2023-08-25] MEDS ORDERED: PANT40TA52 PO (12:05)
[2023-08-25] MEDS ORDERED: MGX400T PO (12:05)
--- NOTE | 2023-08-25 12:14 | D/C HH Face to Face Order ---
D/C HH Face to Face Orders Reconcile Patient Problems Problems Reviewed?: Yes Instructions for Patient HH Patient Instructions/FollowUp: [facility] Physician to follow Patient: [facility] Discharge Diet for Home: ADA Diet Patient Problems: Left leg cellulitis Patient Data-Allergies,Ht & Wt Patient Allergies: Coded Allergies: lisinopril (Verified Adverse Reaction, Unknown, affects kidneys, 07/02/22) metformin (Verified Adverse Reaction, Unknown, affects kidneys, 07/02/22) Height (Feet): 5 Height (Inches): 4.00 Weight (Pounds): 152 Weight (Ounces): 0.0 Home Health Need/Face to Face Date of Face to Face: Aug 25, 2023 Clinical Findings: Generalized weakness and fatigue, Instability, Muscle weakness, Pain with ambulation, Unsteady gait I have seen Pt dnuf-ux-rgkq: Yes Discharged To: Home Diagnosis/Conditions: Debility Patient is Homebound due to: [place] fall risk due to instabilty, Muscle weakness Homebound Status Due to the above stated illness, injury or surgical procedure (medical condition or diagnosis) and associated clinical findings, the patient is homebound because of his/her inability to leave home except with aid of a supportive device and/or person AND leaving the home requires a considerable and taxing effort or is medically contraindicated. Pt req the following assistanc: Walker Home Health Nursing Orders Home Health Services Order: Nursing Services, Uptwist Spinner-Evaluate & Treat, Physical Therapy-Evaluate & Treat, Wound Care-Eval/Treat Certify Stmt I certify that this patient is under my care and that I, a nurse practitioner or a physician; a account assistant working with me, had a face to face encounter that - meets the physician face to face encounter requirements with this patient as dated. KEIKO LYNN DO Aug 25, 2023 12:14
--- NOTE | 2023-08-25 12:19 | Progress Note ---
MICHAELA STEWART 08/25/23 1219: Progress Note 77 year old male, here for recovery from a left knee total replacement with complication from L distal leg cellulitis. He is improving on vancomycin. He has a history of dementia, HTN, DM, cardiac murmur, and GERD. He has had persistent hypokalemia and has been receiving potassium. His ADLs were 3-5 on admission and have improved to 3-6. Patient is improving in general except for some diarrhea. His labs and vitals are stable otherwise. EMELI LYNN DO 08/25/232030: Supervisory-Addendum Brief Verification & Attestation Participated in pt care: history, MDM, physical Personally performed: exam, history, MDM, supervision of care Care discussed with: Medical Student Procedures: n/a Results interpretation: Verified all documentation Verification and Attestation of Medical Student E/M Service A medical student performed and documented this service in my presence. I reviewed and verified all information documented by the medical student and made modifications to such information, when appropriate. I personally performed the physical exam and medical decision making. Emeli Lynn, Aug 25, 2023,20:31 MICHAELA STEWART Aug 25, 2023 12:19 EMELI LYNN DO Aug 25, 2023 20:31
[2023-08-25 16:28] VITALS: BP 165/69
[2023-08-25] MEDS: AMOXICILLIN/Clavulanate 875 MG TABLET PO SCH (18:11)
[2023-08-25 20:00] VITALS: BP 184/76
[2023-08-25] MEDS: inSUlin DETERMIR 1 UNIT/0.01 ML (CHARGE PER UNIT) SQ SCH (20:11)
[2023-08-26] MEDS: oxyCODONE IMMEDIATE RELEASE 5 MG TABLET PO PRN ×5 (00:18→21:15)
--- NOTE | 2023-08-26 05:15 | PM&R Progress Note ---
Subjective HPI/CC On Admission Date Seen by Provider: Aug 26, 2023 Time Seen by Provider: 12:30 Subjective/Events-last exam 08/26/2023: Improved overall Left leg cellulitis will require additional Zyvox Pain control Monitoring closely 08/25/2023: Patient doing well Denies any new issues Left leg much improved Changing IV antibiotics to oral 08/24/2023: Much improved IV abx maintained due to severity of the infection Labs stable at bedside 08/23/2023: Doing better Pain controlled Left leg much improved cellulitis PPI and Carafate helpful at bedside 08/22/2023: No major issues Will recheck labs Thursday IV abx maintained No falls Pain controlled PPI and Carafate will be restarted Review of Systems General: Fatigue, Malaise Musculoskeletal: leg pain Objective Exam Vital Signs Vital Signs Date Time Temp Pulse Resp B/P (MAP) Pulse Ox O2 Delivery O2 Flow Rate FiO2 08/26/23 12:10 Nasal Cannula 1.00 08/26/23 09:00 93 08/26/23 08:00 36.5 70 18 167/70 (102) 08/22/23 19:48 21 Capillary Refill : General Appearance: No Apparent Distress, WD/WN, Chronically ill HEENT: PERRL/EOMI, Normal ENT Inspection, Pharynx Normal Neck: Full Range of Motion, Normal Inspection, Non Tender, Supple, Carotid Bruit Respiratory: Chest Non Tender, Lungs Clear, Normal Breath Sounds, No Accessory Muscle Use, No Respiratory Distress, Decreased Breath Sounds Cardiovascular: Regular Rate, Rhythm, No Gallop, No JVD, Normal Peripheral Pulses, Systolic Murmur Gastrointestinal: Normal Bowel Sounds, No Organomegaly, No Pulsatile Mass, Non Tender, Soft Back: Normal Inspection, No CVA Tenderness, No Vertebral Tenderness Extremity: Normal Capillary Refill, Normal Inspection, Normal Range of Motion (except left leg), Non Tender, No Calf Tenderness, No Pedal Edema Neurologic/Psychiatric: Alert, Oriented x3, human services manager II-XII Norm as Tested, Depressed Affect, Disoriented (subtle poor recall), Motor Weakness (left leg due to pain) Skin: Normal Color, Warm/Dry, Rash (left knee and tibia redness) Lymphatic: No Adenopathy Results/Procedures Lab Patient resulted labs reviewed. FIM Transfers Therapy Code Descriptions/Definitions Functional [place] Measure: 0=Not Assessed/NA 4=Minimal Assistance 1=Total Assistance 5=Supervision or Setup 2=Maximal Assistance 6=Modified [place] 3=Moderate Assistance 7=Complete IndependenceSCALE: Activities may be completed with or without assistive devices. 7-Rjafxsnftj-mtjbyjz completes the activity by him/herself with no assistance from a helper. 5-Set-up or Clean-up Assistance-helper sets up or cleans up; patient completes activity. [place] assists only prior to or following the activity. 4-Supervision or Touching Assistance-helper provides verbal cues and/or touching/steadying and/or contact guard assistance as patient completes activity. Assistance may be provided throughout the activity or intermittently. 3-Partial/Moderate Assistance-helper does LESS THAN HALF the effort. [place] lifts, holds or supports trunk or limbs, but provides less than half the effort. 2-Substantial/Maximal Assistance-helper does MORE THAN HALF the effort. [place] lifts or holds trunk or limbs and provides more than half the effort. 3-Nvsfeyjqy-hdzesm does ALL the effort. Patient does none of the effort to complete the activity. Or, the assistance of 2 or more helpers is required for the patient to complete the activity. If activity was not attempted, code reason: 7-Patient Refused. 9-Not Applicable-not attempted and the patient did not perform the activity before the current illness, exacerbation or injury. 10-Not Attempted due to Environmental Limitations-(lack of equipment, weather restraints, etc.). 88-Not Attempted due to Medical Conditions or Safety Concerns. Roll Left to Right (QC): 3 Sit to Lying (QC): 3 Sit to Stand (QC): 5 Chair/Mfr-op-Pfwef Xfer(QC): 4 Car Transfer (QC): 2 Gait Training Does the Patient Walk?: Yes Distance: 300', 150', 80' Walk 10 feet (QC): 5 Walk 50 ft with 2 Turns(QC): 5 Walk 150 ft (QC): 5 Walking 10ft/uneven surface-QC: 88 Gait Persons Needed: 1 Gait Assistive Device: FWW Wheelchair Training Does the Pt Use a Wheelchair?: No Wheel 50 ft with 2 turns (QC): 9 Wheel 150 ft (QC): 9 Type of Wheelchair: N/A Stair Training 1 Step (curb) (QC): 3 4 Steps (QC): 3 12 Steps (QC): 9 Balance Picking up an Object (QC): 3 ADL-Treatment Eating (QC): 6 Oral Hygiene (QC): 4 Shower/Bathe Self (QC): 4 Upper Body Dressing (QC): 5 Lower Body Dressing (QC): 3 (Mod A) On/Off Footwear (QC): 2 Toileting Hygiene (QC): 3 Toilet Transfer (QC): 4 Assessment/Plan Assessment and Plan Assess & Plan/Chief Complaint Assessment: s/p left knee arthroplasty due to osteoarthritis Cellulitis post op left leg Dementia HTN HLP Cardiac murmur GERD Plan: IV abx PT OT Home meds Pain control OAC 08/22/2023: Restart GERD tx Increase insulin 08/23/2023: Monitor closely IV abx 08/24/2023: Monitor closely 08/25/2023: Supportive care Continue DVT prophylaxis 08/26/2023: Monitoring closely DC Thursday (1) Left leg cellulitis Status: Acute (2) Primary osteoarthritis of left knee (3) Debility Status: Acute (4) Dementia (5) Diabetic neuropathy KEIKO LYNN DO Aug 26, 2023 05:15
[2023-08-26] MEDS: inSUlin ASPART 1 UNIT/0.01 ML (PER UNIT) SC SCH ×7 (05:44→21:17)
[2023-08-26] MEDS: POTASSIUM CHLORIDE 10 MEQ TABLET PO SCH (06:01)
[2023-08-26] MEDS: CLOPIDOGREL 75 MG TABLET PO SCH (07:48)
[2023-08-26] MEDS: MAGNESIUM OXIDE 400 MG TABLET PO SCH (07:48)
[2023-08-26] MEDS: GABAPENTIN 100 MG CAPSULE PO SCH ×2 (07:49→21:16)
[2023-08-26] MEDS: ALLOPURINOL 100 MG TABLET PO SCH (07:49)
[2023-08-26] MEDS: FOLIC ACID 1 MG TAB PO SCH (07:50)
[2023-08-26] MEDS: amLODIPine 10 MG TABLET PO SCH (07:50)
[2023-08-26] MEDS: PANTOPRAZOLE 40 MG TABLET PO SCH ×2 (07:51→21:16)
[2023-08-26] MEDS: AMOXICILLIN/Clavulanate 875 MG TABLET PO SCH ×2 (07:51→18:22)
[2023-08-26] MEDS: CALCITRIOL 0.25 MCG CAPSULE PO SCH (07:51)
[2023-08-26] MEDS: APIXABAN 2.5 MG TABLET PO SCH ×2 (07:51→21:15)
[2023-08-26] MEDS: LACTOBACILLUS ACIDOPHILUS (PROBIOTIC) CAPSULE PO SCH ×3 (07:52→18:23)
[2023-08-26] MEDS: FUROSEMIDE INJECTION 40 MG/4 ML VIAL IVP SCH (07:52)
[2023-08-26 08:00] VITALS: BP 167/70
[2023-08-26] MEDS: SENNOSIDES 8.6 MG TABLET PO SCH ×2 (08:03→21:15)
[2023-08-26] MEDS: DOCUSATE SODIUM 100 MG CAPSULE PO SCH ×2 (08:03→21:15)
[2023-08-26] MEDS: CHOLESTYRAMINE LITE 4 GM PACKET PO SCH ×2 (10:00→21:15)
[2023-08-26] MEDS ORDERED: LINEZOLID 600 MG TABLET PO ONE (10:30)
--- NOTE | 2023-08-26 10:54 | Occupational Ther Daily Note ---
OT Current Status-Daily Note Subjective Pt alert, working with PT. Co-treat with PT ([id number]), skills of 2 clinicians required for family training/education to work with pt's to demonstrate pt's progress with functional mobility, ADLs and any equipment that will be needed. PT focusing on ambulation and transfers while OT focusing on functional mobility and ADLs. Mental Status/Objective Patient Orientation: Person, Place, Time, Situation ADL-Treatment SBA using FWW to gather clothing from closet then transport. See PT notes for bed mobility. Independent with toileting. CGA in standing while pt doffed clothing, cues to use general studies program chair to don pants over feet then hiked over hips by self. Pt fatigues very easily. Set up for shower, using grabbar, hand held shower and shower bench pt able to complete. Set up for footwear. Set up for UBD. After session, pt sitting in recliner with call light/phone in reach. All needs met. in room. Therapy Code Descriptions/Definitions Functional [place] Measure: 0=Not Assessed/NA 4=Minimal Assistance 1=Total Assistance 5=Supervision or Setup 2=Maximal Assistance 6=Modified [place] 3=Moderate Assistance 7=Complete IndependenceSCALE: Activities may be completed with or without assistive devices. 5-Mamknrsflq-qazeujd completes the activity by him/herself with no assistance from a helper. 5-Set-up or Clean-up Assistance-helper sets up or cleans up; patient completes activity. [place] assists only prior to or following the activity. 4-Supervision or Touching Assistance-helper provides verbal cues and/or touching/steadying and/or contact guard assistance as patient completes activity. Assistance may be provided throughout the activity or intermittently. 3-Partial/Moderate Assistance-helper does LESS THAN HALF the effort. [place] lifts, holds or supports trunk or limbs, but provides less than half the effort. 2-Substantial/Maximal Assistance-helper does MORE THAN HALF the effort. [place] lifts or holds trunk or limbs and provides more than half the effort. 4-Fnlydyikv-ldqvja does ALL the effort. Patient does none of the effort to complete the activity. Or, the assistance of 2 or more helpers is required for the patient to complete the activity. If activity was not attempted, code reason: 7-Patient Refused. 9-Not Applicable-not attempted and the patient did not perform the activity before the current illness, exacerbation or injury. 10-Not Attempted due to Environmental Limitations-(lack of equipment, weather restraints, etc.). 88-Not Attempted due to Medical Conditions or Safety Concerns. Shower/Bathe Self (QC): 5 Upper Body Dressing (QC): 5 Lower Body Dressing (QC): 4 On/Off Footwear: 5 Toileting Hygiene (QC): 6 Toilet Transfer (QC): 6 BIMS CAM BIMS Expression of Ideas and Wants: Without Difficulty Understanding Verbal Content: Understands Brief Interview/Mental Status: Yes IRF MANPREET BIMS: IRF MANPREET BIMS Response (Comments) Value Repitition of Three Words Two 2 Recalls Socks Yes, No Cue Required 2 Recalls Blue Yes, No Cue Required 2 Recalls Bed Yes, After Cueing 1 Year Correct 3 Month Accurate Within 5 Days 2 Day Incorrect or No Answer 0 Total 12 Patient Normally Able to Recal: Current Session, Location of own room, Staff Names and faces, That he/she in a [facility] Should Staff Asses. Mental St.: No Memory/Recall Ability: Current Season, Location of Own Room, Staff Names and Faces, That He[facility]She in [facility] Mental Status Change/Baseline: 1 Inattention: 2 Disorganized thinkin Altered level of consciousness: 0 OT Short Term Goals Short Term Goals Time Frame: Aug 28, 2023 Oral hygiene: 5 Shower/bathe self: 5 Lower body dressin Putting on/taking off footwear: 5 OT Alf Goals Alf Goals Time Frame: Sep 04, 2023 Acute change in mental status: 1 Inattention: 2 Disorganized thinkin Altered level of consciousness: 0 Eating (QC): 6 Oral Hygiene (QC): 6 Toileting Hygiene (QC): 6 Shower/Bathe Self (QC): 6 Upper Body Dressing (QC): 6 Lower Body Dressing (QC): 6 On/Off Footwear (QC): 6 Additional Goals: 1-Demonstrate ADL Tasks, 2-Verbalize Understanding, 3- ImproveStrength/[place] 1=Demonstrate adherence to instructed precautions during ADL tasks. 2=Patient will verbalize/demonstrate understanding of assistive devices/modifications for ADL. 3=Patient will improve strength/tolerance for activity to enable patient to perform ADL's. OT Education/Plan Problem List/Assessment Assessment: Decreased Activ Tolerance, Decreased UE Strength, Impaired Self-Care Skills Discharge Recommendations Plan/Recommendations: Continue POC Treatment Plan/Plan of Care Patient would benefit from OT for education, treatment and training to promote independence in ADL's, mobility, safety and/or upper extremity function for ADL's. Plan of Care: ADL Retraining, Functional Mobility, Group Exercise/Act as Ind, UE Funct Exercise/Act Treatment Duration: Sep 04, 2023 Frequency: At least 5 of 7 days/Wk (IRF) Estimated Hrs Per Day: 1.5 hours per day Agreement: Yes Rehab Potential: Good Time Start Time: 11:00 Stop Time: 12:00 DATE: Aug 26, 2023 Total Time Billed (hr/min): 60 Billed Treatment Time 1 visit-ADL 2 (30 min) FA 2 (30 min) co-treat with PT [id number], individual [id number] YAZAN WALDRON Aug 26, 2023 10:54
--- NOTE | 2023-08-26 11:58 | Physical Therapy Daily Note ---
PT Daily Note-Current Subjective Pt sitting in recliner w/Sp present upon arrival. Pt agrees to PT for Ind. tx then joined for OT for Family Training. Pain Numeric Pain Scale: 8 Location: Left Location Body Site: Knee Pain Description: Ache Comment: Reports pain in L knee & radiates down to ankle Section J - Health Conditions 1. Rarely or not at all 2. Occasionally 3. Frequently 4. Almost constantly 8. Unable to answer Pain Effect on Sleep: 3 Pain Interference with Therapy: 3 Pain Interference w/Day-to-Day: 3 Mental Status Patient Orientation: Person, Place, Situation Transfers SCALE: Activities may be completed with or without assistive devices. 4-Abpazfwxux-utennhw completes the activity by him/herself with no assistance from a helper. 5-Set-up or Clean-up Assistance-helper sets up or cleans up; patient completes activity. [place] assists only prior to or following the activity. 4-Supervision or Touching Assistance-helper provides verbal cues and/or touching/steadying and/or contact guard assistance as patient completes activity. Assistance may be provided throughout the activity or intermittently. 3-Partial/Moderate Assistance-helper does LESS THAN HALF the effort. [place] lifts, holds or supports trunk or limbs, but provides less than half the effort. 2-Substantial/Maximal Assistance-helper does MORE THAN HALF the effort. [place] lifts or holds trunk or limbs and provides more than half the effort. 4-Pgbvdolaa-otqway does ALL the effort. Patient does none of the effort to complete the activity. Or, the assistance of 2 or more helpers is required for the patient to complete the activity. If activity was not attempted, code reason: 7-Patient Refused. 9-Not Applicable-not attempted and the patient did not perform the activity before the current illness, exacerbation or injury. 10-Not Attempted due to Environmental Limitations-(lack of equipment, weather restraints, etc.). 88-Not Attempted due to Medical Conditions or Safety Concerns. Sit to Stand (QC): 5 Car Transfer (QC): 4 (VC for TF as pt has running board & high) Weight Bearing Right Lower Extremity: Right Weight Bearing/Tolerated Left Lower Extremity: Left Weight Bearing/Tolerated Gait Training Does the Patient Walk?: Yes Distance: 350', 150' Walk 10 feet (QC): 5 Walk 50 ft with 2 Turns(QC): 5 Walk 150 ft (QC): 5 Gait Assistive Device: FWW Exercises Seated Therapy Exercises: Ankle pumps, Long arc quads, Hip flexion, Hamstring Curls, Hip abd/add, Glut set Seated Reps: 15 Treatments Pt completes Seated Ex then TF to standing. Pt amb in hallway before OT joins tx. Co-treat with OT ([id number]), skills of 2 clinicians required for family training/education to work with pt's to demonstrate pt's progress with functional mobility, ADLs and any equipment that will be needed. PT focusing on ambulation and transfers while OT focusing on functional mobility and ADLs. SBA using FWW to gather clothing from closet then transport. Height of bed raised to compare for home height for bed mobility. Pt is SBA w/TF with VC. Independent with toileting then PT departs & OT continues working on tx. Assessment Current Status: Good Progress Pt reports pain w/WB & mobility. Pt demonstrates moments of dementia during tx but will follow VC. PT Short Term Goals Short Term Goals Time Frame: Sep 02, 2023 Roll Left & Right: 5 Sit to lyin Lying to sitting on side of be: 5 Sit to stand: 5 Chair/vfw-uy-jcrvl transfer: 5 Toilet transfer: 5 Car transfer: 5 Walk 10 feet: 5 Walk 50 feet with two turns: 5 Walk 150 feet: 5 Walking 10ft on uneven surface: 5 1 step (curb): 5 4 steps: 5 12 steps: 9 Picking up objects: 5 Does pt use a wc or scooter: No Wheel 50ft w/2 turns: 9 Wheel 150 feet: 9 Type: N/A PT Assistant To [place] Goals Fpc Goals PT Assistant To [place] Goals Time Frame: Sep 09, 2023 Roll Left & Right (QC): 6 Sit to Lying (QC): 6 Lying-Sitting on Side/Bed(QC): 6 Sit to Stand (QC): 6 Chair/Ibq-rj-Ssrag Xfer(QC): 6 Toilet Transfer (QC): 6 Car Transfer (QC): 6 Does the Patient Walk: Yes Walk 10 feet (QC): 6 Walk 50ft with 2 Turns (QC): 6 Walk 150 ft (QC): 6 Walking 10ft on Uneven Surface: 6 1 Step (curb) (QC): 9 4 Steps (QC): 9 12 Steps (QC): 9 Picking up an Object (QC): 6 Does the Pt use WC or Scooter?: No Wheel 50 feet with 2 turns (QC: 9 Type: N/A Wheel 150 feet: 9 Type: N/A PT Plan Problem List Problem List: Safety Treatment/Plan Treatment Plan: Continue Plan of Care Treatment Plan: Bed Mobility, Education, Functional Activity [place], Functional Strength, Group Therapy, Gait, Safety, Therapeutic Exercise, Transfers Treatment Duration: Aug 21, 2023 Frequency: At least 5 of 7 days/Wk (IRF) Estimated Hrs Per Day: 1.5 hours per day Patient and/or Family Agrees t: Yes Safety Risks/Education Patient Education: Gait Training, Transfer Techniques, Correct Positioning, Safety Issues Teaching Recipient: Patient, Significant Other Teaching Methods: Discussion Response to Teaching: Verbalize Understanding Time Time In: 1030 Time Out: 1130 DATE: Aug 26, 2023 Total Billed Treatment Time: 60 Total Billed Treatment 1, GT x2 (30m), EX (20m) & FA (10m) MARIELLE ARREOLA TRAY DRIER Aug 26, 2023 11:58
--- NOTE | 2023-08-26 13:32 | Occupational Ther Daily Note ---
OT Current Status-Daily Note Subjective Pt. was alert. Pt. in recliner. No c/o pain. Pt. agreed to therapy. Co-treated with 2 clinicians for oral hygiene. Mental Status/Objective Patient Orientation: Person, Place, Time, Situation ADL-Treatment Therapy Code Descriptions/Definitions Functional [place] Measure: 0=Not Assessed/NA 4=Minimal Assistance 1=Total Assistance 5=Supervision or Setup 2=Maximal Assistance 6=Modified [place] 3=Moderate Assistance 7=Complete IndependenceSCALE: Activities may be completed with or without assistive devices. 0-Pcicrrpjru-oxwmfcl completes the activity by him/herself with no assistance from a helper. 5-Set-up or Clean-up Assistance-helper sets up or cleans up; patient completes activity. [place] assists only prior to or following the activity. 4-Supervision or Touching Assistance-helper provides verbal cues and/or touching/steadying and/or contact guard assistance as patient completes activity. Assistance may be provided throughout the activity or intermittently. 3-Partial/Moderate Assistance-helper does LESS THAN HALF the effort. [place] lifts, holds or supports trunk or limbs, but provides less than half the effort. 2-Substantial/Maximal Assistance-helper does MORE THAN HALF the effort. [place] lifts or holds trunk or limbs and provides more than half the effort. 9-Dglmkkczs-xwwala does ALL the effort. Patient does none of the effort to complete the activity. Or, the assistance of 2 or more helpers is required for the patient to complete the activity. If activity was not attempted, code reason: 7-Patient Refused. 9-Not Applicable-not attempted and the patient did not perform the activity before the current illness, exacerbation or injury. 10-Not Attempted due to Environmental Limitations-(lack of equipment, weather restraints, etc.). 88-Not Attempted due to Medical Conditions or Safety Concerns. Other Treatment Pt. ambulated to bathroom sink from recliner using FWW with SBA. Pt. ind ependently oral hygiene while standing at sink with FWW while standing 100% of the time. Completed BUE 2 medium resistance theraband exercises with skilled instruction for correct technique and modifications when needed. Continued instruction for exercises is needed. Alternated B UE/B LE exercises with PRACTICING DERMATOLOGIST. After session, Pt. in recliner, call light/phone, in room, all needs met. Education OT Patient Education: Exercise program, Instructions to caregiver Teaching Recipient: Patient, Family Teaching Methods: Demonstration, Handout, Discussion Response to Teaching: Verbalize Understanding, Return Demonstration, Reinforcement Needed OT Short Term Goals Short Term Goals Time Frame: Aug 28, 2023 Oral hygiene: 5 Shower/bathe self: 5 Lower body dressin Putting on/taking off footwear: 5 OT Skilled Nursing Goals Service Worker Helper Goals Time Frame: Sep 04, 2023 Acute change in mental status: 1 Inattention: 2 Disorganized thinkin Altered level of consciousness: 0 Eating (QC): 6 Oral Hygiene (QC): 6 Toileting Hygiene (QC): 6 Shower/Bathe Self (QC): 6 Upper Body Dressing (QC): 6 Lower Body Dressing (QC): 6 On/Off Footwear (QC): 6 Additional Goals: 1-Demonstrate ADL Tasks, 2-Verbalize Understanding, 3- ImproveStrength/[place] 1=Demonstrate adherence to instructed precautions during ADL tasks. 2=Patient will verbalize/demonstrate understanding of assistive devices/modif ications for ADL. 3=Patient will improve strength/tolerance for activity to enable patient to perform ADL's. OT Education/Plan Problem List/Assessment Assessment: Decreased Activ Tolerance, Decreased UE Strength, Impaired Self- Care Skills Discharge Recommendations Plan/Recommendations: Continue POC Treatment Plan/Plan of Care Patient would benefit from OT for education, treatment and training to promote independence in ADL's, mobility, safety and/or upper extremity function for ADL's. Plan of Care: ADL Retraining, Functional Mobility, Group Exercise/Act as Ind, UE Funct Exercise/Act Treatment Duration: Sep 04, 2023 Frequency: At least 5 of 7 days/Wk (IRF) Estimated Hrs Per Day: 1.5 hours per day Agreement: Yes Rehab Potential: Good Time Start Time: 13:00 Stop Time: 13:30 DATE: Aug 26, 2023 Total Time Billed (hr/min): 30 Billed Treatment Time 1 visit-ADL 1 (15 min) EX 1 (15 min) cotreat with PT 30 min YAZAN WALDRON Aug 26, 2023 13:32
--- NOTE | 2023-08-26 13:44 | Progress Note ---
MICHAELA STEWART 08/26/23 1344: Progress Note 77 year old male, here for recovery from a left knee total replacement with complication from L distal leg cellulitis. He has a history of dementia, HTN, DM, cardiac murmur, and GERD. He has had persistent hypokalemia and has been receiving potassium. On admission, he required only supervision for most ADLs, but minimal assistance for anything related to his left leg. He can now complete transfers with just set up assistance with the goal of being completely independent by discharge. He is limited due to the cellulitis. We started oral linezolid in addition to augmentin for better coverage for the cellulitis. EMELI LYNN DO 08/27/23 0427: Supervisory-Addendum Brief Verification & Attestation Participated in pt care: history, MDM, physical Personally performed: exam, history, MDM, supervision of care Care discussed with: Medical Student Procedures: n/a Results interpretation: Verified all documentation Verification and Attestation of Medical Student E/M Service A medical student performed and documented this service in my presence. I reviewed and verified all information documented by the medical student and made modifications to such information, when appropriate. I personally performed the physical exam and medical decision making. Emeli Lynn, Aug 27, 2023,04:27 MICHAELA STEWART Aug 26, 2023 13:44 EMELI LYNN DO Aug 27, 2023 04:27
--- NOTE | 2023-08-26 14:09 | Physical Therapy Daily Note ---
PT Daily Note-Current Subjective Pt sitting in recliner upon arrival. Pt agrees to PT/OT co-treat. Pain Numeric Pain Scale: 8 Location: Left Location Body Site: Knee Pain Description: Ache Comment: Pt reports knee pain that radiates down to L ankle Section J - Health Conditions 1. Rarely or not at all 2. Occasionally 3. Frequently 4. Almost constantly 8. Unable to answer Pain Effect on Sleep: 3 Pain Interference with Therapy: 3 Pain Interference w/Day-to-Day: 3 Mental Status Patient Orientation: Person, Place, Situation Transfers SCALE: Activities may be completed with or without assistive devices. 1-Adldfdmkfn-wnlefqe completes the activity by him/herself with no assistance from a helper. 5-Set-up or Clean-up Assistance-helper sets up or cleans up; patient completes activity. [place] assists only prior to or following the activity. 4-Supervision or Touching Assistance-helper provides verbal cues and/or touching/steadying and/or contact guard assistance as patient completes activity. Assistance may be provided throughout the activity or intermittently. 3-Partial/Moderate Assistance-helper does LESS THAN HALF the effort. [place] lifts, holds or supports trunk or limbs, but provides less than half the effort. 2-Substantial/Maximal Assistance-helper does MORE THAN HALF the effort. [place] lifts or holds trunk or limbs and provides more than half the effort. 7-Oegwmrztz-nrehwm does ALL the effort. Patient does none of the effort to complete the activity. Or, the assistance of 2 or more helpers is required for the patient to complete the activity. If activity was not attempted, code reason: 7-Patient Refused. 9-Not Applicable-not attempted and the patient did not perform the activity before the current illness, exacerbation or injury. 10-Not Attempted due to Environmental Limitations-(lack of equipment, weather restraints, etc.). 88-Not Attempted due to Medical Conditions or Safety Concerns. Weight Bearing Right Lower Extremity: Right Weight Bearing/Tolerated Left Lower Extremity: Left Weight Bearing/Tolerated Gait Training Does the Patient Walk?: Yes Exercises Seated Therapy Exercises: Ankle pumps, Long arc quads, Hip flexion Seated Reps: 15 Treatments Pt. ambulated to bathroom sink from recliner using FWW with SBA. Pt. independently oral hygiene while standing at sink with FWW while standing 100% of the time. Completed BUE 2 medium resistance theraband exercises with skilled instruction for correct technique and modifications when needed. Continued instruction for exercises is needed. Alternated B UE/B LE exercises with FIRE EXTINGUISHER REPAIRER. After session, Pt. in recliner, call light/phone, in room, all needs met. Assessment Current Status: Good Progress Pt reports pain & fatigue by end of tx. PT Short Term Goals Short Term Goals Time Frame: Sep 02, 2023 Roll Left & Right: 5 Sit to lyin Lying to sitting on side of be: 5 Sit to stand: 5 Chair/doh-qh-qamfj transfer: 5 Toilet transfer: 5 Car transfer: 5 Walk 10 feet: 5 Walk 50 feet with two turns: 5 Walk 150 feet: 5 Walking 10ft on uneven surface: 5 1 step (curb): 5 4 steps: 5 12 steps: 9 Picking up objects: 5 Does pt use a wc or scooter: No Wheel 50ft w/2 turns: 9 Wheel 150 feet: 9 Type: N/A PT Residential Goals Magazine Grinder Loader Goals PT Magazine Grinder Loader Goals Time Frame: Sep 09, 2023 Roll Left & Right (QC): 6 Sit to Lying (QC): 6 Lying-Sitting on Side/Bed(QC): 6 Sit to Stand (QC): 6 Chair/Cqj-pr-Oxjsp Xfer(QC): 6 Toilet Transfer (QC): 6 Car Transfer (QC): 6 Does the Patient Walk: Yes Walk 10 feet (QC): 6 Walk 50ft with 2 Turns (QC): 6 Walk 150 ft (QC): 6 Walking 10ft on Uneven Surface: 6 1 Step (curb) (QC): 9 4 Steps (QC): 9 12 Steps (QC): 9 Picking up an Object (QC): 6 Does the Pt use WC or Scooter?: No Wheel 50 feet with 2 turns (QC: 9 Type: N/A Wheel 150 feet: 9 Type: N/A PT Plan Problem List Problem List: Activity Tolerance Treatment/Plan Treatment Plan: Continue Plan of Care Treatment Plan: Bed Mobility, Education, Functional Activity [place], Functional Strength, Group Therapy, Gait, Safety, Therapeutic Exercise, Transfers Treatment Duration: Aug 21, 2023 Frequency: At least 5 of 7 days/Wk (IRF) Estimated Hrs Per Day: 1.5 hours per day Patient and/or Family Agrees t: Yes Time Time In: 1300 Time Out: 1330 DATE: Aug 26, 2023 Total Billed Treatment Time: 30 Total Billed Treatment Co-treat w/OT for 30m 1, FA (15m) & EX (15m) MARIELLE ARREOLA FIRE EXTINGUISHER REPAIRER Aug 26, 2023 14:09
[2023-08-26] MEDS: ACETAMINOPHEN 325 MG TABLET PO PRN (14:35)
[2023-08-26 19:30] VITALS: BP 132/62
[2023-08-26] MEDS: inSUlin DETERMIR 1 UNIT/0.01 ML (CHARGE PER UNIT) SQ SCH (21:16)
[2023-08-26] MEDS: LINEZOLID 600 MG TABLET PO SCH (21:17)
[2023-08-27] MEDS: oxyCODONE IMMEDIATE RELEASE 5 MG TABLET PO PRN ×5 (03:45→21:01)
[2023-08-27] MEDS ORDERED: LINE600T12 PO (04:55)
[2023-08-27] MEDS ORDERED: AMOX1TAB12 PO (04:55)
[2023-08-27] MEDS: inSUlin ASPART 1 UNIT/0.01 ML (PER UNIT) SC SCH ×7 (06:12→21:02)
[2023-08-27] MEDS: POTASSIUM CHLORIDE 10 MEQ TABLET PO SCH (06:24)
[2023-08-27 08:00] VITALS: BP 160/67
[2023-08-27] MEDS: GABAPENTIN 100 MG CAPSULE PO SCH ×2 (08:05→21:01)
[2023-08-27] MEDS: ALLOPURINOL 100 MG TABLET PO SCH (08:05)
[2023-08-27] MEDS: PANTOPRAZOLE 40 MG TABLET PO SCH ×2 (08:06→21:02)
[2023-08-27] MEDS: APIXABAN 2.5 MG TABLET PO SCH ×2 (08:06→21:01)
[2023-08-27] MEDS: AMOXICILLIN/Clavulanate 875 MG TABLET PO SCH ×2 (08:06→18:05)
[2023-08-27] MEDS: FOLIC ACID 1 MG TAB PO SCH (08:06)
[2023-08-27] MEDS: MAGNESIUM OXIDE 400 MG TABLET PO SCH (08:06)
[2023-08-27] MEDS: CALCITRIOL 0.25 MCG CAPSULE PO SCH (08:07)
[2023-08-27] MEDS: LINEZOLID 600 MG TABLET PO SCH ×2 (08:07→21:01)
[2023-08-27] MEDS: LACTOBACILLUS ACIDOPHILUS (PROBIOTIC) CAPSULE PO SCH ×3 (08:07→18:05)
[2023-08-27] MEDS: CLOPIDOGREL 75 MG TABLET PO SCH (08:07)
[2023-08-27] MEDS: FUROSEMIDE INJECTION 40 MG/4 ML VIAL IVP SCH (08:08)
[2023-08-27] MEDS: amLODIPine 10 MG TABLET PO SCH (08:09)
[2023-08-27] MEDS: DOCUSATE SODIUM 100 MG CAPSULE PO SCH ×2 (08:25→19:32)
[2023-08-27] MEDS: SENNOSIDES 8.6 MG TABLET PO SCH ×2 (08:26→19:32)
--- NOTE | 2023-08-27 09:59 | Physical Therapy Daily Note ---
PT Daily Note-Current Subjective Pt reclined in recliner upon arrival. Pt agrees to PT for QC scoring. Pain Numeric Pain Scale: 8 Location: Left Location Body Site: Knee Pain Description: Ache Comment: Pt reports pain from mid L knee to L ankle Section J - Health Conditions 1. Rarely or not at all 2. Occasionally 3. Frequently 4. Almost constantly 8. Unable to answer Pain Effect on Sleep: 3 Pain Interference with Therapy: 3 Pain Interference w/Day-to-Day: 3 Mental Status Patient Orientation: Person, Place, Time Transfers SCALE: Activities may be completed with or without assistive devices. 5-Qdibxjmrhm-rodqovw completes the activity by him/herself with no assistance from a helper. 5-Set-up or Clean-up Assistance-helper sets up or cleans up; patient completes activity. [place] assists only prior to or following the activity. 4-Supervision or Touching Assistance-helper provides verbal cues and/or touching/steadying and/or contact guard assistance as patient completes activity. Assistance may be provided throughout the activity or intermittently. 3-Partial/Moderate Assistance-helper does LESS THAN HALF the effort. [place] lifts, holds or supports trunk or limbs, but provides less than half the effort. 2-Substantial/Maximal Assistance-helper does MORE THAN HALF the effort. [place] lifts or holds trunk or limbs and provides more than half the effort. 1-Koytwxcml-rvykxy does ALL the effort. Patient does none of the effort to complete the activity. Or, the assistance of 2 or more helpers is required for the patient to complete the activity. If activity was not attempted, code reason: 7-Patient Refused. 9-Not Applicable-not attempted and the patient did not perform the activity before the current illness, exacerbation or injury. 10-Not Attempted due to Environmental Limitations-(lack of equipment, weather restraints, etc.). 88-Not Attempted due to Medical Conditions or Safety Concerns. Roll Left & Right (QC): 6 Sit to Lying (QC): 6 Lying to Sitting/Side of Bed(Q: 6 Sit to Stand (QC): 6 Chair/Aua-tv-Jwnkr Xfer(QC): 6 Toilet Transfer (QC): 6 Car Transfer (QC): 6 Elevated car to higher truck height Weight Bearing Right Lower Extremity: Right Weight Bearing/Tolerated Left Lower Extremity: Left Weight Bearing/Tolerated Gait Training Does the Patient Walk?: Yes Distance: 500', 125' Walk 10 feet (QC): 6 Walk 50 ft with 2 Turns(QC): 6 Walk 150 ft (QC): 6 Walking 10ft/uneven surface-QC: 6 Gait Assistive Device: FWW Wheelchair Training Does the Pt Use a Wheelchair?: No Stair Training Stair Training: Handrails/: 2 handrails #of Steps: 4 1 Step (curb) (QC): 6 4 Steps (QC): 5 Stairs: Pattern: Step to Balance Picking up an Object (QC): 6 Exercises NuStep Minutes: 15 NuStep Workload: 3 Treatments Pt completes QC scoring items listed above and uses NuStep for 15m at WL 3 before returning to room to rest. Pt returns to recliner w/L LE elevated from calve down w/o pillow under knee to prevent contractures and gave education to Nurse & Sp during tx. for positioning. All needs met, call light in hand. Assessment Current Status: Good Progress Pt has gained independence with transfers and mobility but still struggling with pain. Positioning is being addressed as is swelling & pain medication is being given. PT Short Term Goals Short Term Goals Time Frame: Sep 02, 2023 Roll Left & Right: 5 Sit to lyin Lying to sitting on side of be: 5 Sit to stand: 5 Chair/pfr-zg-hibso transfer: 5 Toilet transfer: 5 Car transfer: 5 Walk 10 feet: 5 Walk 50 feet with two turns: 5 Walk 150 feet: 5 Walking 10ft on uneven surface: 5 1 step (curb): 5 4 steps: 5 12 steps: 9 Picking up objects: 5 Does pt use a wc or scooter: No Wheel 50ft w/2 turns: 9 Wheel 150 feet: 9 Type: N/A PT Wireline Field Operator Goals Intermediate Goals PT Wireline Field Operator Goals Time Frame: Sep 09, 2023 Roll Left & Right (QC): 6 Sit to Lying (QC): 6 Lying-Sitting on Side/Bed(QC): 6 Sit to Stand (QC): 6 Chair/Bxz-os-Vswbv Xfer(QC): 6 Toilet Transfer (QC): 6 Car Transfer (QC): 6 Does the Patient Walk: Yes Walk 10 feet (QC): 6 Walk 50ft with 2 Turns (QC): 6 Walk 150 ft (QC): 6 Walking 10ft on Uneven Surface: 6 1 Step (curb) (QC): 9 4 Steps (QC): 9 12 Steps (QC): 9 Picking up an Object (QC): 6 Does the Pt use WC or Scooter?: No Wheel 50 feet with 2 turns (QC: 9 Type: N/A Wheel 150 feet: 9 Type: N/A PT Plan Treatment/Plan Treatment Plan: Continue Plan of Care Treatment Plan: Bed Mobility, Education, Functional Activity [place], Functional Strength, Group Therapy, Gait, Safety, Therapeutic Exercise, Transfers Treatment Duration: Aug 21, 2023 Frequency: At least 5 of 7 days/Wk (IRF) Estimated Hrs Per Day: 1.5 hours per day Patient and/or Family Agrees t: Yes Safety Risks/Education Patient Education: Correct Positioning Teaching Recipient: Patient, Significant Other Teaching Methods: Discussion Response to Teaching: Verbalize Understanding Time Time In: 815 Time Out: 945 DATE: Aug 27, 2023 Total Billed Treatment Time: 90 Total Billed Treatment 1, FA x3 (45m), GT x2 (30m) & EX (15m) MARIELLE ARREOLA BUSINESS AREA DIRECTOR Aug 27, 2023 09:59
[2023-08-27] MEDS: CHOLESTYRAMINE LITE 4 GM PACKET PO SCH ×2 (10:00→19:34)
--- NOTE | 2023-08-27 10:08 | PM&R Progress Note ---
Subjective HPI/CC On Admission Date Seen by Provider: Aug 27, 2023 Time Seen by Provider: 10:10 Subjective/Events-last exam 08/27/23: Patient doing well Ready for discharge tomorrow Left leg much improved 08/26/2023: Improved overall Left leg cellulitis will require additional Zyvox Pain control Monitoring closely 08/25/2023: Patient doing well Denies any new issues Left leg much improved Changing IV antibiotics to oral 08/24/2023: Much improved IV abx maintained due to severity of the infection Labs stable at bedside 08/23/2023: Doing better Pain controlled Left leg much improved cellulitis PPI and Carafate helpful at bedside 08/22/2023: No major issues Will recheck labs Thursday IV abx maintained No falls Pain controlled PPI and Carafate will be restarted Review of Systems General: Fatigue, Malaise Objective Exam Vital Signs Vital Signs Date Time Temp Pulse Resp B/P (MAP) Pulse Ox O2 Delivery O2 Flow Rate FiO2 08/27/23 21:07 97 Room Air 08/27/23 20:33 36.6 66 18 132/66 (88) 08/26/23 12:10 1.00 08/22/23 19:48 21 Capillary Refill : General Appearance: No Apparent Distress, WD/WN, Chronically ill HEENT: PERRL/EOMI, Normal ENT Inspection, Pharynx Normal Neck: Full Range of Motion, Normal Inspection, Non Tender, Supple, Carotid Bruit Respiratory: Chest Non Tender, Lungs Clear, Normal Breath Sounds, No Accessory Muscle Use, No Respiratory Distress, Decreased Breath Sounds Cardiovascular: Regular Rate, Rhythm, No Gallop, No JVD, Normal Peripheral Pulses, Systolic Murmur Gastrointestinal: Normal Bowel Sounds, No Organomegaly, No Pulsatile Mass, Non Tender, Soft Back: Normal Inspection, No CVA Tenderness, No Vertebral Tenderness Extremity: Normal Capillary Refill, Normal Inspection, Normal Range of Motion (except left leg), Non Tender, No Calf Tenderness, No Pedal Edema Neurologic/Psychiatric: Alert, Oriented x3, 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 FIM Transfers Therapy Code Descriptions/Definitions Functional [place] Measure: 0=Not Assessed/NA 4=Minimal Assistance 1=Total Assistance 5=Supervision or Setup 2=Maximal Assistance 6=Modified [place] 3=Moderate Assistance 7=Complete IndependenceSCALE: Activities may be completed with or without assistive devices. 2-Qpgfmoxbmj-wlooszw completes the activity by him/herself with no assistance from a helper. 5-Set-up or Clean-up Assistance-helper sets up or cleans up; patient completes activity. [place] assists only prior to or following the activity. 4-Supervision or Touching Assistance-helper provides verbal cues and/or touching/steadying and/or contact guard assistance as patient completes activ ity. Assistance may be provided throughout the activity or intermittently. 3-Partial/Moderate Assistance-helper does LESS THAN HALF the effort. [place] lifts, holds or supports trunk or limbs, but provides less than half the effort. 2-Substantial/Maximal Assistance-helper does MORE THAN HALF the effort. [place] lifts or holds trunk or limbs and provides more than half the effort. 5-Uleleakgy-jdnhyx does ALL the effort. Patient does none of the effort to complete the activity. Or, the assistance of 2 or more helpers is required for the patient to complete the activity. If activity was not attempted, code reason: 7-Patient Refused. 9-Not Applicable-not attempted and the patient did not perform the activity before the current illness, exacerbation or injury. 10-Not Attempted due to Environmental Limitations-(lack of equipment, weather restraints, etc.). 88-Not Attempted due to Medical Conditions or Safety Concerns. Roll Left to Right (QC): 3 Sit to Lying (QC): 3 Sit to Stand (QC): 5 Chair/Daf-fg-Xxlei Xfer(QC): 4 Car Transfer (QC): 4 (VC for TF as pt has running board & high) Gait Training Does the Patient Walk?: Yes Distance: 350', 150' Walk 10 feet (QC): 5 Walk 50 ft with 2 Turns(QC): 5 Walk 150 ft (QC): 5 Walking 10ft/uneven surface-QC: 88 Gait Persons Needed: 1 Gait Assistive Device: FWW Wheelchair Training Does the Pt Use a Wheelchair?: No Wheel 50 ft with 2 turns (QC): 9 Wheel 150 ft (QC): 9 Type of Wheelchair: N/A Stair Training 1 Step (curb) (QC): 3 4 Steps (QC): 3 12 Steps (QC): 9 Balance Picking up an Object (QC): 3 ADL-Treatment Eating (QC): 6 Oral Hygiene (QC): 4 Shower/Bathe Self (QC): 5 Upper Body Dressing (QC): 5 Lower Body Dressing (QC): 4 On/Off Footwear (QC): 5 Toileting Hygiene (QC): 6 Toilet Transfer (QC): 6 Assessment/Plan Assessment and Plan Assess & Plan/Chief Complaint Assessment: s/p left knee arthroplasty due to osteoarthritis Cellulitis post op left leg Dementia HTN HLP Cardiac murmur GERD Plan: IV abx PT OT Home meds Pain control OAC 08/22/2023: Restart GERD tx Increase insulin 08/23/2023: Monitor closely IV abx 08/24/2023: Monitor closely 08/25/2023: Supportive care Continue DVT prophylaxis 08/26/2023: Monitoring closely DC Thursday08/27/23: Responding to Zyvox Discharge tomorrow (1) Left leg cellulitis Status: Acute (2) Primary osteoarthritis of left knee (3) Debility Status: Acute (4) Dementia (5) Diabetic neuropathy KEIKO LYNN DO Aug 27, 2023 10:08
--- NOTE | 2023-08-27 10:35 | Progress Note ---
MICHAELA STEWART 08/27/23 1035: Progress Note 77 year old male, here for recovery from a left knee total replacement with complication from L distal leg cellulitis. He has a history of dementia, HTN, DM, cardiac murmur, and GERD. He has had persistent hypokalemia and has been receiving potassium. On admission, he required only supervision for most ADLs, but minimal assistance for anything related to his left leg. He can now complete transfers with just set up assistance with the goal of being completely independent by discharge. He is limited due to the cellulitis. We started oral linezolid in addition to augmentin for better coverage for the cellulitis. Today his left leg is much improved with less erythema and edema. He is ready for discharge tomorrow. EMELI LYNN DO 08/27/232049: Supervisory-Addendum Brief Verification & Attestation Participated in pt care: history, MDM, physical Personally performed: exam, history, MDM, supervision of care Care discussed with: Medical Student Procedures: n/a Results interpretation: Verified all documentation Verification and Attestation of Medical Student E/M Service A medical student performed and documented this service in my presence. I revie wed and verified all information documented by the medical student and made modifications to such information, when appropriate. I personally performed the physical exam and medical decision making. Emeli Lynn, Aug 27, 2023,20:50 MICHAELA STEWART Aug 27, 2023 10:35 EMELI LYNN DO Aug 27, 2023 20:50
--- NOTE | 2023-08-27 14:39 | Occupational Ther Daily Note ---
OT Current Status-Daily Note Subjective Pt alert, sitting in recliner. present in room. Pt declines to complete any tasks out of recliner, stating that he was too sore from PT to complete these tasks. Pt does agree to tasks while sitting in recliner. Heat pack applied to L knee, pt stated that it does help decrease pain though continues to decliner to stand from recliner. Mental Status/Objective Patient Orientation: Person, Place, Time, Situation ADL-Treatment Independent with toilet transfer and toileting. Therapy Code Descriptions/Definitions Functional [place] Measure: 0=Not Assessed/NA 4=Minimal Assistance 1=Total Assistance 5=Supervision or Setup 2=Maximal Assistance 6=Modified [place] 3=Moderate Assistance 7=Complete IndependenceSCALE: Activities may be completed with or without assistive devices. 0-Yzeqvuqyse-pqskrsv completes the activity by him/herself with no assistance from a helper. 5-Set-up or Clean-up Assistance-helper sets up or cleans up; patient completes activity. [place] assists only prior to or following the activity. 4-Supervision or Touching Assistance-helper provides verbal cues and/or touching/steadying and/or contact guard assistance as patient completes activity. Assistance may be provided throughout the activity or intermittently. 3-Partial/Moderate Assistance-helper does LESS THAN HALF the effort. [place] lifts, holds or supports trunk or limbs, but provides less than half the effort. 2-Substantial/Maximal Assistance-helper does MORE THAN HALF the effort. [place] lifts or holds trunk or limbs and provides more than half the effort. 9-Ujcblilpb-lgmkrw does ALL the effort. Patient does none of the effort to complete the activity. Or, the assistance of 2 or more helpers is required for the patient to complete the activity. If activity was not attempted, code reason: 7-Patient Refused. 9-Not Applicable-not attempted and the patient did not perform the activity before the current illness, exacerbation or injury. 10-Not Attempted due to Environmental Limitations-(lack of equipment, weather restraints, etc.). 88-Not Attempted due to Medical Conditions or Safety Concerns. Eating (QC): 6 (Pt has demonstrated ability to complete this standing at sink.) Oral Hygiene (QC): 6 (Pt demonstrated ability to complete standing at sink.) Toileting Hygiene (QC): 6 Toilet Transfer (QC): 6 Other Treatment Pt completed B UE exercises with skilled instructions for correct technique and modifications due to limited shldr ROM. Pt completed strengthening exercises with theraband, theraflex bar and resistive clothespins. Verbal cues for correct positioning and use of each required. Pt completed 1 set 10 reps of each exercise, tolerated well. Pt then given memory activities/exercises for use in room and at home to increase STM strategies. After therapy, pt sitting in recliner with call light/phone in reach. All needs met in room. BIMS CAM BIMS Expression of Ideas and Wants: Without Difficulty Understanding Verbal Content: Understands Brief Interview/Mental Status: Yes IRF MANPREET BIMS: IRF MANPREET BIMS Response (Comments) Value Repitition of Three Words Three 3 Recalls Socks Yes, After Cueing (Wear) 1 Recalls Blue Yes, No Cue Required 2 Recalls Bed Yes, After Cueing 1 Year Correct 3 Month Accurate Within 5 Days 2 Day Correct 1 Total 13 Patient Normally Able to Recal: Current Session, Location of own room, Staff Names and faces, That he/she in a hsp Should Staff Asses. Mental St.: No CAM Mental Status Change/Baseline: 0 Inattention: 0 Disorganized thinkin Altered level of consciousness: 0 OT Short Term Goals Short Term Goals Time Frame: Aug 28, 2023 Oral hygiene: 5 Shower/bathe self: 5 Lower body dressin Putting on/taking off footwear: 5 OT [facility] Goals [facility] Goals Time Frame: Sep 04, 2023 Acute change in mental status: 1 Inattention: 2 Disorganized thinkin Altered level of consciousness: 0 Eating (QC): 6 (met) Oral Hygiene (QC): 6 (met) Toileting Hygiene (QC): 6 (met) Shower/Bathe Self (QC): 6 (met) Upper Body Dressing (QC): 6 (me) Lower Body Dressing (QC): 6 (met) On/Off Footwear (QC): 6 (not met) Additional Goals: 1-Demonstrate ADL Tasks, 2-Verbalize Understanding, 3-ImproveStrength/[place] 1=Demonstrate adherence to instructed precautions during ADL tasks. 2=Patient will verbalize/demonstrate understanding of assistive devices/modifications for ADL. 3=Patient will improve strength/tolerance for activity to enable patient to per form ADL's. OT Education/Plan Problem List/Assessment Assessment: Decreased Activ Tolerance, Decreased UE Strength, Impaired Self- Care Skills Discharge Recommendations Plan/Recommendations: Continue POC Treatment Plan/Plan of Care Patient would benefit from OT for education, treatment and training to promote independence in ADL's, mobility, safety and/or upper extremity function for ADL's. Plan of Care: ADL Retraining, Functional Mobility, Group Exercise/Act as Ind, UE Funct Exercise/Act Treatment Duration: Sep 04, 2023 Frequency: At least 5 of 7 days/Wk (IRF) Estimated Hrs Per Day: 1.5 hours per day Agreement: Yes Rehab Potential: Good Time Start Time: 10:30 Stop Time: 12:00 DATE: Aug 27, 2023 Total Time Billed (hr/min): 90 Billed Treatment Time 1 visit-ADL 1 (15 min), EX 3 (50 min) FA 2 (25 min) YAZAN WALDRON Aug 27, 2023 14:39
[2023-08-27 20:33] VITALS: BP 132/66
[2023-08-27] MEDS: inSUlin DETERMIR 1 UNIT/0.01 ML (CHARGE PER UNIT) SQ SCH (21:02)
[2023-08-28] MEDS: oxyCODONE IMMEDIATE RELEASE 5 MG TABLET PO PRN ×2 (01:20→09:10)
--- NOTE | 2023-08-28 04:51 | Discharge Summary ---
Diagnosis/Chief Complaint Date of Admission Aug 21, 2023 at 13:15 Date of Discharge Discharge Date: Aug 28, 2023 Discharge Diagnosis Assessment: s/p left knee arthroplasty due to osteoarthritis Cellulitis post op left leg Dementia HTN HLP Cardiac murmur GERD Plan: IV abx PT OT Home meds Pain control OAC 08/22/2023: Restart GERD tx Increase insulin 08/23/2023: Monitor closely IV abx 08/24/2023: Monitor closely 08/25/2023: Supportive care Continue DVT prophylaxis 08/26/2023: Monitoring closely DC Thursday08/27/23: Responding to [facility] Discharge tomorrow (1) Left leg cellulitis Status: Acute (2) Primary osteoarthritis of left knee (3) Debility Status: Acute (4) Dementia (5) Diabetic neuropathy Discharge Summary Discharge Physical Examination Allergies: Coded Allergies: lisinopril (Verified Adverse Reaction, Unknown, affects kidneys, 07/02/22) metformin (Verified Adverse Reaction, Unknown, affects kidneys, 07/02/22) Vitals & I&Os Vital Signs Date Time Temp Pulse Resp B/P (MAP) Pulse Ox O2 Delivery O2 Flow Rate FiO2 08/28/23 10:58 36.4 65 18 176/79 93 Room Air 1.00 08/22/23 19:48 21 General Appearance: Alert, Oriented X3, Cooperative Respiratory: Clear to Auscultation Cardiovascular: Regular Rate Psych/Mental Status: Mental Status NL Hospital Course Was the Problem List Reviewed?: Yes Geovany is a 77 year old male who completed his hospital stay for recovery from a left knee total replacement with complication from L distal leg cellulitis. He has a history of dementia, HTN, DM, cardiac murmur, and GERD. He has had persistent hypokalemia and has been receiving potassium. Post-surgery doppler and Xrays confirmed no DVT or acute processes in the left leg other than cellulitis. We started oral linezolid in addition to augmentin for better coverage for the cellulitis. Patient was previously on IV vancomycin after surgery. His left leg is much improved with less erythema and edema. On admission, he required only supervision for most ADLs, but minimal assistance for anything related to his left leg. He has now reached his PT/OT goal of being completely independent with ADLs and transfers. TERRY,MICHAELA Labs (last 24 hrs) Laboratory Tests 08/21/23 16:40: Glucometer 312H 08/21/23 20:12: Glucometer 314H 08/22/23 06:00: White Blood Count 9.8, Red Blood Count 3.89L, Hemoglobin 10.0L, Hematocrit 32L, Mean Corpuscular Volume 83, Mean Corpuscular Hemoglobin 26, Mean Corpuscular Hemoglobin Concent 31L, Red Cell Distribution Width 17.7H, Platelet Count 294, Mean Platelet Volume 10.2, Immature Granulocyte % (Auto) 1, Neutrophils (%) (Auto) 80H, Lymphocytes (%) (Auto) 9L, Monocytes (%) (Auto) 7, Eosinophils (%) (Auto) 3, Basophils (%) (Auto) 1, Neutrophils # (Auto) 7.8, Lymphocytes # (Auto) 0.9L, Monocytes # (Auto) 0.7, Eosinophils # (Auto) 0.2, Basophils # (Auto) 0.1, Immature Granulocyte # (Auto) 0.1, Sodium Level 143, Potassium Level 3.5L, Chloride Level 107, Carbon Dioxide Level 24, Anion Gap 12, Blood Urea Nitrogen 24H, Creatinine 1.54H, Estimat Glomerular Filtration Rate 46, BUN/Creatinine Ratio 16, Glucose Level 143H, Calcium Level 9.4, Corrected Calcium 10.0, Total Bilirubin 1.2H, Aspartate Amino Transf (AST/SGOT) 29, Alanine Aminotransferase (ALT/SGPT) 41, Alkaline Phosphatase 153H, Total Protein 6.1L, Albumin 3.3 08/22/23 12:13: Glucometer 224H 08/22/23 16:28: Glucometer 250H 08/22/23 20:37: Glucometer 294H 08/23/23 05:30: Glucometer 102 08/23/23 11:08: Glucometer 182H 08/23/23 15:30: Glucometer 218H 08/23/23 20:21: Glucometer 318H 08/24/23 05:13: White Blood Count 9.2, Red Blood Count 4.01L, Hemoglobin 10.1L, Hematocrit 34L, Mean Corpuscular Volume 84, Mean Corpuscular Hemoglobin 25, Mean Corpuscular Hemoglobin Concent 30L, Red Cell Distribution Width 17.2H, Platelet Count 366, Mean Platelet Volume 10.9, Immature Granulocyte % (Auto) 1, Neutrophils (%) (Auto) 81H, Lymphocytes (%) (Auto) 9L, Monocytes (%) (Auto) 6, Eosinophils (%) (Auto) 3, Basophils (%) (Auto) 1, Neutrophils # (Auto) 7.4, Lymphocytes # (Auto) 0.8L, Monocytes # (Auto) 0.6, Eosinophils # (Auto) 0.3, Basophils # (Auto) 0.1, Immature Granulocyte # (Auto) 0.1, Sodium Level 140, Potassium Level 3.1L, Chloride Level 102, Carbon Dioxide Level 28, Anion Gap 10, Blood Urea Nitrogen 23H, Creatinine 1.73H, Estimat Glomerular Filtration Rate 40, BUN/Creatinine Ratio 13, Glucose Level 175H, Calcium Level 9.2, Corrected Calcium 9.8, Total Bilirubin 0.8, Aspartate Amino Transf (AST/SGOT) 27, Alanine Aminotransferase (A LT/SGPT) 36, Alkaline Phosphatase 130, Total Protein 6.0L, Albumin 3.2 08/24/23 11:06: Glucometer 320H 08/24/23 15:26: Glucometer 187H 08/24/23 15:57: Vancomycin Level Trough 10.3 08/24/23 20:23: Glucometer 230H 08/25/23 05:29: Glucometer 109 08/25/23 11:03: Glucometer 204H 08/25/23 16:11: Glucometer 141H 08/25/23 19:56: Glucometer 258H 08/26/23 05:22: Glucometer 138H 08/26/23 11:16: Glucometer 161H 08/26/23 16:26: Glucometer 158H 08/26/23 20:58: Glucometer 206H 08/27/23 06:05: Glucometer 100 08/27/23 10:54: Glucometer 210H 08/27/23 16:02: Glucometer 166H 08/27/23 20:36: Glucometer 182H 08/28/23 06:00: Glucometer 135H Pending Labs Laboratory Tests 08/21/23 16:40: Glucometer 312 08/21/23 20:12: Glucometer 314 08/22/23 06:00: White Blood Count 9.8, Red Blood Count 3.89, Hemoglobin 10.0, Hematocrit 32, Mean Corpuscular Volume 83, Mean Corpuscular Hemoglobin 26, Mean Corpuscular Hemoglobin Concent 31, Red Cell Distribution Width 17.7, Platelet Count 294, Mean Platelet Volume 10.2, Immature Granulocyte % (Auto) 1, Neutrophils (%) (Auto) 80, Lymphocytes (%) (Auto) 9, Monocytes (%) (Auto) 7, Eosinophils (%) (Auto) 3, Basophils (%) (Auto) 1, Neutrophils # (Auto) 7.8, Lymphocytes # (Auto) 0.9, Monocytes # (Auto) 0.7, Eosinophils # (Auto) 0.2, Basophils # (Auto) 0.1, Immature Granulocyte # (Auto) 0.1, Sodium Level 143, Potassium Level 3.5, Chloride Level 107, Carbon Dioxide Level 24, Anion Gap 12, Blood Urea Nitrogen 24, Creatinine 1.54, Estimat Glomerular Filtration Rate 46, BUN/Creatinine Ratio 16, Glucose Level 143, Calcium Level 9.4, Corrected Calcium 10.0, Total Bilirubin 1.2, Aspartate Amino Transf (AST/SGOT) 29, Alanine Aminotransferase (ALT/SGPT) 41, Alkaline Phosphatase 153, Total Protein 6.1, Albumin 3.3 08/22/23 12:13: Glucometer 224 08/22/23 16:28: Glucometer 250 08/22/23 20:37: Glucometer 294 08/23/23 05:30: Glucometer 102 08/23/23 11:08: Glucometer 182 08/23/23 15:30: Glucometer 218 08/23/23 20:21: Glucometer 318 08/24/23 05:13: White Blood Count 9.2, Red Blood Count 4.01, Hemoglobin 10.1, Hematocrit 34, Mean Corpuscular Volume 84, Mean Corpuscular Hemoglobin 25, Mean Corpuscular Hemoglobin Concent 30, Red Cell Distribution Width 17.2, Platelet Count 366, Me an Platelet Volume 10.9, Immature Granulocyte % (Auto) 1, Neutrophils (%) (Auto) 81, Lymphocytes (%) (Auto) 9, Monocytes (%) (Auto) 6, Eosinophils (%) (Auto) 3, Basophils (%) (Auto) 1, Neutrophils # (Auto) 7.4, Lymphocytes # (Auto) 0.8, Monocytes # (Auto) 0.6, Eosinophils # (Auto) 0.3, Basophils # (Auto) 0.1, Immature Granulocyte # (Auto) 0.1, Sodium Level 140, Potassium Level 3.1, Chloride Level 102, Carbon Dioxide Level 28, Anion Gap 10, Blood Urea Nitrogen 23, Creatinine 1.73, Estimat Glomerular Filtration Rate 40, BUN/Creatinine Ratio 13, Glucose Level 175, Calcium Level 9.2, Corrected Calcium 9.8, Total Bilirubin 0.8, Aspartate Amino Transf (AST/SGOT) 27, Alanine Aminotransferase (ALT/SGPT) 36, Alkaline Phosphatase 130, Total Protein 6.0, Albumin 3.2 08/24/23 11:06: Glucometer 320 08/24/23 15:26: Glucometer 187 08/24/23 15:57: Vancomycin Level Trough 10.3 08/24/23 20:23: Glucometer 230 08/25/23 05:29: Glucometer 109 08/25/23 11:03: Glucometer 204 08/25/23 16:11: Glucometer 141 08/25/23 19:56: Glucometer 258 08/26/23 05:22: Glucometer 138 08/26/23 11:16: Glucometer 161 08/26/23 16:26: Glucometer 158 08/26/23 20:58: Glucometer 206 08/27/23 06:05: Glucometer 100 08/27/23 10:54: Glucometer 210 08/27/23 16:02: Glucometer 166 08/27/23 20:36: Glucometer 182 08/28/23 06:00: Glucometer 135 Discharge Home Medications: Active Scripts Active Zyvox (Linezolid) 600 Mg Tablet 600 Mg PO BID Amox Tr-K Clv 875-125 mg Tab (Amoxicillin/Potassium Clav) 875 Mg-125 Mg Tablet 875 Mg PO BID WITH MEALS Acidophilus-Pectin Capsule (Lactobacillus Acidophilus/Pect) 75 Million Cell-100 Mg Capsule 2 Each PO TIDWM Sucralfate 1 Gram Tablet 1 Gm PO ACHS PRN Metoprolol Succinate 50 Mg Tab.er.24h 50 Mg PO BID Prevalite Packet (Cholestyramine/Aspartame) 4 Gram Powd.pack 4 Gm PO BID@1000,2200 PRN Oxyir Tablet (Oxycodone HCl) 5 Mg Tab 10 Mg PO Q6H PRN Eliquis (Apixaban) 2.5 Mg Tablet 2.5 Mg PO BID Losartan Potassium 50 Mg Tablet 50 Mg PO DAILY Klor-Con M10 (Potassium Chloride) 10 Meq Tab.er.prt 30 Meq PO BID TAKES 3 (10MEQ) TABS Furosemide 40 Mg Tablet 40 Mg PO DAILY Pantoprazole Sodium 40 Mg Tablet.dr 40 Mg PO BID Clopidogrel (Clopidogrel Bisulfate) 75 Mg Tablet 75 Mg PO DAILY Amlodipine Besylate 10 Mg Tablet 10 Mg PO DAILY Allopurinol 100 Mg Tablet 100 Mg PO DAILY Magnesium Oxide 400 Mg (241.3 Mg Magnesium) Tablet 400 Mg PO DAILY Gabapentin 100 Mg Capsule 200 Mg PO BID TAKES 2 (100MG) CAPS Atorvastatin Calcium 20 Mg Tablet 20 Mg PO HS Reported Insulin Glargine Solostar (Insulin Glargine,Hum.rec.anlog) 100 Unit/Ml (3 Ml) Insuln.pen 50 Unit SQ HS Neuriva Plus Brain Perform Cap (B6/Folic/B12/Coffee/Phosphatid) 1.7MG-400 Capsule 1 Each PO DAILY Pioglitazone HCl 30 Mg Tablet 30 Mg PO DAILY Novolog Flexpen (Insulin Aspart) 100 Unit/Ml (3 Ml) Solution 35 Units SQ HS Novolog Flexpen (Insulin Aspart) 100 Unit/Ml (3 Ml) Solution 30 Units SQ AC Cyanocobalamin Injection (Cyanocobalamin) 1,000 Mcg/Ml Inj 1,000 Mcg IM EVERY 3 WEEKS Testosterone Cypionate 200 Mg/Ml Vial 200 Mg IM EVERY 3 WEEKS Calcitriol 0.25 Mcg Capsule 0.25 Mcg PO DAILY Vitamin D3 (Cholecalciferol (Vitamin D3)) 125 Mcg Capsule 125 Mcg PO DAILY Alogliptin (Alogliptin Benzoate) 12.5 Mg Tablet 12.5 Mg PO DAILY Fish Oil 1,000 mg Softgel ([place]-3 Fatty Acids/Fish Oil) 1 Each Capsule 1,000 Mg PO DAILY Instructions to patient/family Please see electronic discharge instructions given to patient. Diagnosis/Problems Diagnosis/Problems (1) Left leg cellulitis Status: Acute (2) Primary osteoarthritis of left knee (3) Debility Status: Acute (4) Dementia (5) Diabetic neuropathy KEIKO LYNN DO Aug 28, 2023 04:51
[2023-08-28] MEDS: inSUlin ASPART 1 UNIT/0.01 ML (PER UNIT) SC SCH ×2 (06:03→06:54)
[2023-08-28] MEDS: POTASSIUM CHLORIDE 10 MEQ TABLET PO SCH (06:54)
[2023-08-28 08:00] VITALS: BP 176/79
--- NOTE | 2023-08-28 08:10 | Therapy Team Discharge Summary ---
Therapy Discharge Summary Discharge Recommendations Date of Discharge Therapy D/C Recommendations: Occupational Therapy Home Care Physical Therapy Roll Left to Right (QC): 6 Sit to Lying (QC): 6 Lying to Sitting/Side of Bed(Q: 6 Sit to Stand (QC): 6 Chair/Elr-za-Thkke Xfer(QC): 6 Toilet Transfer (QC): 4 Car Transfer (QC): 6 Does the Patient Walk: Yes Mode of Locomotion: Walk Anticipated Mode of Locomotion: Walk Walk 10 feet (QC): 6 Walk 50 ft with 2 Turns(QC): 6 Walk 150 ft (QC): 6 Walking 10ft on uneven surface: 6 Distance: 150ft Gait Assistive Device: FWW Does the Pt Use a Wheelchair: No Wheel 50 ft with 2 turns (QC): 9 Wheel 150 ft (QC): 9 Type of Wheelchair: N/A #of Steps: 4 1 Step (curb) (QC): 6 4 Steps (QC): 5 12 Steps (QC): 9 Walking Assistive Device: Walker Picking up an Object (QC): 6 Occupational Therapy Pt admitted to [facility] s/p LTKA; cellulitus. At [facility], pt was independent with ADLS and functional mobility with FWW. Upon initial evaluation, pt required set up assist with eating and UBD, SBA-CGA oral care and toileting, and partial assistance with showering, LBD, and footwear, OT tx focused on increasing BUE strength and activity tolerance, and increasing safety and independence with ADLs and functional mobility. Pt made functional progress towards goals, attaining LTGs for eating, oral care and toileting. Pt scheduled to discharge home with family support, d/c from OT. Decreased Activ Tolerance, Decreased UE Strength, Impaired Self-Care Skills Eating (QC): 6 (Pt has demonstrated ability to complete this standing at sink.) Oral Hygiene (QC): 6 (Pt demonstrated ability to complete standing at sink.) Shower/Bathe Self (QC): 5 Upper Body Dressing (QC): 5 Lower Body Dressing (QC): 4 On/Off Footwear (QC): 5 Toileting Hygiene (QC): 6 PT Skilled Nursing Goals [employer]illi[employer] Par[employer] Manager Goals PT [employer] Manager Goals Time Frame: Sep 09, 2023 Roll Left to Right (QC): 6 Sit to Lying (QC): 6 Lying-Sitting on Side/Bed(QC): 6 Sit to Stand (QC): 6 Chair/Snx-ul-Rpzlj Xfer(QC): 6 Toilet/Commode Transfer (QC): 6 Car Transfer (QC): 6 Does the Patient Walk: Yes Walk 10 feet (QC): 6 Walk 10ft-Uneven Surface(QC): 6 Walk 50ft with 2 Turns (QC): 6 Walk 150 ft (QC): 6 Does the Pt use WC or Scooter?: No Wheel 50 feet with 2 turns (QC: 9 Type: N/A Wheel 150 feet: 9 Type: N/A 1 Step (curb) (QC): 9 4 Steps (QC): 9 12 Steps (QC): 9 Picking up an Object (QC): 6 OT [employer] Manager Goals Skilled Nursing Goals Time Frame: Sep 04, 2023 Acute change in mental status: 0 Inattention: 0 Disorganized thinkin Altered level of consciousness: 0 Eating (QC): 6 (met) Oral Hygiene (QC): 6 (met) Toileting Hygiene (QC): 6 (met) Shower/Bathe Self (QC): 6 (not met) Upper Body Dressing (QC): 6 (not met) Lower Body Dressing (QC): 6 (not met) On/Off Footwear (QC): 6 (not met) Additional Goals: 1-Demonstrate ADL Tasks, 2-Verbalize Understanding, 3-ImproveStrength/Arcadio 1=Demonstrate adherence to instructed precautions during ADL tasks. 2=Patient will verbalize/demonstrate understanding of assistive devices/modifications for ADL. 3=Patient will improve strength/tolerance for activity to enable patient to perform ADL's. LUIS NETTLES OT Aug 28, 2023 08:09
--- NOTE | 2023-08-28 09:08 | Progress Note ---
MICHAELA STEWART 08/28/23 0908: Progress Note Geovany is a 77 year old male who completed his hospital stay for recovery from a left knee total replacement with complication from L distal leg cellulitis. He has a history of dementia, HTN, DM, cardiac murmur, and GERD. He has had persistent hypokalemia and has been receiving potassium. Post-surgery doppler and Xrays confirmed no DVT or acute processes in the left leg other than cellulitis. We started oral linezolid in addition to augmentin for better coverage for the cellulitis. Patient was previously on IV vancomycin after surgery. His left leg is much improved with less erythema and edema. On admission, he required only supervision for most ADLs, but minimal assistance for anything related to his left leg. He has now reached his PT/OT goal of being completely independent with ADLs and transfers. EMELI LYNN DO 08/28/23 1809: Supervisory-Addendum Brief Verification & Attestation Participated in pt care: history, MDM, physical Personally performed: exam, history, MDM, supervision of care Care discussed with: Medical Student Procedures: n/a Results interpretation: Verified all documentation Verification and Attestation of Medical Student E/M Service A medical student performed and documented this service in my presence. I reviewed and verified all information documented by the medical student and made modifications to such information, when appropriate. I personally performed the physical exam and medical decision making. Emeli Lynn, Aug 28, 2023,18:09 MICHAELA STEWART Aug 28, 2023 09:08 EMELI LYNN DO Aug 28, 2023 18:09
[2023-08-28] MEDS: CALCITRIOL 0.25 MCG CAPSULE PO SCH (09:10)
[2023-08-28] MEDS: LACTOBACILLUS ACIDOPHILUS (PROBIOTIC) CAPSULE PO SCH (09:10)
[2023-08-28] MEDS: APIXABAN 2.5 MG TABLET PO SCH (09:10)
[2023-08-28] MEDS: CLOPIDOGREL 75 MG TABLET PO SCH (09:10)
[2023-08-28] MEDS: LINEZOLID 600 MG TABLET PO SCH (09:10)
[2023-08-28] MEDS: AMOXICILLIN/Clavulanate 875 MG TABLET PO SCH (09:10)
[2023-08-28] MEDS: amLODIPine 10 MG TABLET PO SCH (09:10)
[2023-08-28] MEDS: PANTOPRAZOLE 40 MG TABLET PO SCH (09:10)
[2023-08-28] MEDS: FOLIC ACID 1 MG TAB PO SCH (09:10)
[2023-08-28] MEDS: ALLOPURINOL 100 MG TABLET PO SCH (09:10)
[2023-08-28] MEDS: GABAPENTIN 100 MG CAPSULE PO SCH (09:10)
[2023-08-28] MEDS: MAGNESIUM OXIDE 400 MG TABLET PO SCH (09:11)
[2023-08-28] MEDS: FUROSEMIDE INJECTION 40 MG/4 ML VIAL IVP SCH (09:11)
[2023-08-28] MEDS: DOCUSATE SODIUM 100 MG CAPSULE PO SCH (09:46)
[2023-08-28] MEDS: SENNOSIDES 8.6 MG TABLET PO SCH (09:47)
[2023-08-28 10:58] VITALS: BP 176/79
--- NOTE | 2023-08-28 11:57 | Therapy Team Discharge Summary ---
Therapy Discharge Summary Discharge Recommendations Date of Discharge Aug 28, 2023 at 10:32 Therapy D/C Recommendations: Occupational Therapy Home Care, Physical Therapy Home Care Physical Therapy Pt is an 77 y/o male s/p L TKA; transferred to [facility]U on 08/21/23. At [facility], pt was Ind with no AD. Upon PT eval, pt was Min A for functional mobility. PT focused on B LE strength, endurance, functional mobility, balance/safety, and overall Ind. Pt progressed well with PT and met all set goals. Pt was discharged from ARU to home with spouse and HHC on 08/28/23; D/C from PT at this time. Roll Left to Right (QC): 6 Sit to Lying (QC): 6 Lying to Sitting/Side of Bed(Q: 6 Sit to Stand (QC): 6 Chair/Dlh-qo-Mveed Xfer(QC): 6 Toilet Transfer (QC): 6 Car Transfer (QC): 6 Does the Patient Walk: Yes Mode of Locomotion: Walk Anticipated Mode of Locomotion: Walk Walk 10 feet (QC): 6 Walk 50 ft with 2 Turns(QC): 6 Walk 150 ft (QC): 6 Walking 10ft on uneven surface: 6 Gait Assistive Device: FWW Does the Pt Use a Wheelchair: No Wheel 50 ft with 2 turns (QC): 9 Wheel 150 ft (QC): 9 Type of Wheelchair: N/A #of Steps: 4 1 Step (curb) (QC): 6 4 Steps (QC): 5 12 Steps (QC): 9 Walking Assistive Device: Walker Balance Sitting Static: Good Balance Sitting Dynamic: Good Balance-Standing Static: Fair Picking up an Object (QC): 6 Occupational Therapy Decreased Activ Tolerance, Decreased UE Strength, Impaired Self-Care Skills Eating (QC): 6 (Pt has demonstrated ability to complete this standing at sink.) Oral Hygiene (QC): 6 (Pt demonstrated ability to complete standing at sink.) Shower/Bathe Self (QC): 5 Upper Body Dressing (QC): 5 Lower Body Dressing (QC): 4 On/Off Footwear (QC): 5 Toileting Hygiene (QC): 6 PT Health Unit Clerk Goals Custodial Goals PT Custodial Goals Time Frame: Sep 09, 2023 Roll Left to Right (QC): 6 Sit to Lying (QC): 6 Lying-Sitting on Side/Bed(QC): 6 Sit to Stand (QC): 6 Chair/Heh-hu-Hpued Xfer(QC): 6 Toilet/Commode Transfer (QC): 6 Car Transfer (QC): 6 Does the Patient Walk: Yes Walk 10 feet (QC): 6 Walk 10ft-Uneven Surface(QC): 6 Walk 50ft with 2 Turns (QC): 6 Walk 150 ft (QC): 6 Does the Pt use WC or Scooter?: No Wheel 50 feet with 2 turns (QC: 9 Type: N/A Wheel 150 feet: 9 Type: N/A 1 Step (curb) (QC): 9 4 Steps (QC): 9 12 Steps (QC): 9 Picking up an Object (QC): 6 OT Custodial Goals Custodial Goals Time Frame: Sep 04, 2023 Acute change in mental status: 0 Inattention: 0 Disorganized thinkin Altered level of consciousness: 0 Eating (QC): 6 (met) Oral Hygiene (QC): 6 (met) Toileting Hygiene (QC): 6 (met) Shower/Bathe Self (QC): 6 (not met) Upper Body Dressing (QC): 6 (not met) Lower Body Dressing (QC): 6 (not met) On/Off Footwear (QC): 6 (not met) Additional Goals: 1-Demonstrate ADL Tasks, 2-Verbalize Understanding, 3- ImproveStrength/Arcadio 1=Demonstrate adherence to instructed precautions during ADL tasks. 2=Patient will verbalize/demonstrate understanding of assistive dev ices/modifications for ADL. 3=Patient will improve strength/tolerance for activity to enable patient to perform ADL's. DONNA TOMLIN PT Aug 28, 2023 11:57
== END 2023-08-28 10:32 | disposition home health service (06) | DRG 560 ==
PROVIDERS: ADMIT Internal Medicine; ATTEND Internal Medicine
DX: Z47.1 Aftercare following joint replacement surgery (principal); L03.116 Cellulitis of left lower limb; L97.829 Non-pressure chronic ulcer of other part of left lower leg with unspecified severity; T81.41XD Infection following a procedure, superficial incisional surgical site, subsequent encounter; I12.9 Hypertensive chronic kidney disease with stage 1 through stage 4 chronic kidney disease, or unspecified chronic kidney disease; E11.22 Type 2 diabetes mellitus with diabetic chronic kidney disease; N18.30 Chronic kidney disease, stage 3 unspecified; E11.40 Type 2 diabetes mellitus with diabetic neuropathy, unspecified; E87.6 Hypokalemia; I25.10 Atherosclerotic heart disease of native coronary artery without angina pectoris; E78.00 Pure hypercholesterolemia, unspecified; K21.9 Gastro-esophageal reflux disease without esophagitis; F03.90 Unspecified dementia, unspecified severity, without behavioral disturbance, psychotic disturbance, mood disturbance, and anxiety; R01.1 Cardiac murmur, unspecified; Z79.4 Long term (current) use of insulin; Z87.891 Personal history of nicotine dependence; Z95.5 Presence of coronary angioplasty implant and graft; Z95.0 Presence of cardiac pacemaker; Z91.09 Other allergy status, other than to drugs and biological substances; Z79.01 Long term (current) use of anticoagulants; Z79.899 Other long term (current) drug therapy
CPT/HCPCS: 36415; 80053; 80202; 82947; 85025